=== PATIENT | male | born 1965 | race Caucasian/White ===

== ENCOUNTER 2017-06-10 17:44 | Emergency (ER) | payer BC, OTHER ==
[~2017-06-10] VITALS: Ht 177.8 cm; Wt 80.3 kg
[~2017-06-10 17:44] MED LIST: CLB/200 PO; NAPR1TAB9 PO; PRLSR20 PO
[2017-06-10 17:58] VITALS: Ht 177.8 cm; Wt 80.3 kg
[2017-06-10] MEDS ORDERED: ONDANSETRON 4MG OD TAB PO ONE (18:15)
--- NOTE | 2017-06-10 18:16 | EMERGENCY ROOM VISIT NOTE ---
History Report prepared by Tiera: Ellis Leyva Under the Supervision of: Dr. Skyler Miranda D.O. First contact with patient: 18:01 Chief Complaint: FLU LIKE SX Stated Complaint: FLU NAUSEA ACHEY FEVER History of Present Illness The patient is a 52 year old male who presents to the Emergency Room with complaints of feeling generally unwell/flu like symptoms that her first began to notice this morning, several hours prior to arrival. The patient notes that he is currently experiencing a headache, global aches, nausea, and fevers/ chills. The patient did have multiple vomiting episodes this afternoon as well. He is not taking any cold medications currently. He has a producing cough. The patient's [id number] was discharged from the hospital on of this week for influenza with additional complications. The patient lives with his daughter in law and they are in close proximity commonly. The patient did have a flu vaccination this year. 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 A total of 10 systems reviewed and were otherwise negative. Family History Hypertension Social History Smoking Status: Current Every Day Smoker Alcohol Use: occasionally Marital Status: Housing Status: lives with family Current/Historical Medications Scheduled Celecoxib (CeleBREX), 200 MG PO QAM Ondasetron Odt (Zofran Odt), 4 MG SL Q6H Scheduled PRN Hydrocodone/Acetaminophen 5MG/325MG ([place] 5MG/325MG), 1 TABLET PO Q8 PRN for Pain Allergies Coded Allergies: No Known Allergies (Unverified , 06/10/17) Physical Exam Vital Signs Date Time Temp Pulse Resp B/P (MAP) Pulse Ox O2 Delivery O2 Flow Rate FiO2 06/10/17 19:33 36.9 90 18 119/82 96 06/10/17 19:06 36.9 90 18 119/82 96 Room Air 06/10/17 17:58 36.8 102 18 126/85 97 Room Air Physical Exam GENERAL: Patient is awake, alert, and in no acute distress, and showing no signs of anxiety EYES: The conjunctivae are clear. The pupils are round and reactive. EARS, NOSE, MOUTH AND THROAT: The nose is without any evidence of any deformity. Mucous membranes are moist tongue is midline NECK: The neck is nontender and supple. RESPIRATORY: Normal respiratory effort is noted there is no evidence of wheezing rhonchi or rales CARDIOVASCULAR: Regular rate and rhythm noted there no murmurs rubs or gallops normal S1 normal S2 GASTROINTESTINAL: The abdomen is soft. Bowel sounds are present in all quadrants. Abdomen is nontender MUSCULOSKELETAL/EXTREMITIES: There is no evidence of gross deformity full range of motion is noted in the hips and shoulders SKIN: There is no obvious evidence of any rash. There are no petechiae, pallor or cyanosis noted. NEUROLOGIC: Patient is awake alert and oriented x3 Medical Decision & Procedures ER Provider Diagnostic Interpretation: Radiology results as stated below per my review and radiologist interpretation: CHEST ONE VIEW PORTABLE HISTORY: cough COMPARISON: Chest 03/17/2016. FINDINGS: The lungs are clear. Cardiac silhouette is normal in size. No pleural effusions. No pneumothorax. Severe degenerative changes within the bilateral shoulders are again noted. IMPRESSION: No acute process. Electronically signed by: Spencer Christianson M.D. 06/10/2017 6:41 PM Dictated Date/Time: 06/10/2017 6:40 PM Laboratory Results Test 06/10/17 18:18 Urine Color YELLOW Urine Appearance CLEAR (CLEAR) Urine pH 5.5 (4.5-7.5) Urine Specific [place] 1.024 (1.000-1.030) Urine Protein NEG (NEG) Urine Glucose (UA) NEG (NEG) Urine Ketones 1+ (NEG) Urine Occult Blood NEG (NEG) Urine Nitrite NEG (NEG) Urine Bilirubin NEG (NEG) Urine Urobilinogen NEG (NEG) Urine Leukocyte Esterase NEG (NEG) Influenza Type A Antigen Neg for Influ A (NEG) Influenza Type B Antigen Neg for Influ B (NEG) Laboratory results per my review. Medications Administered Medications (Trade) Dose Ordered Sig/Ivy Route Start Time Stop Time Status Last Admin Dose Admin Ondansetron HCl (Zofran Odt) 4 mg ONE ONCE PO 06/10/17 18:15 06/10/17 18:16 DC 06/10/17 18:26 4 MG ED Course 1803: The patient was evaluated in room A2. A complete history and physical examination were performed. 1814: Ordered Zofran 4 mg PO. 1915: Upon reevaluation, the patient is resting in bed. I discussed the results and treatment plan with him. He verbalized agreement of the treatment plan. The patient was discharged home. Medical Decision Differential diagnosis: Etiologies such as viral syndrome, otitis, pharyngitis, pneumonia, influenza, meningitis, urinary tract infection, sepsis, bacteremia, as well as others were entertained. Nursing notes reviewed. The patient is a 52-year-old male who presented to the emergency department for an evaluation of flulike symptoms. The patient states he was exposed to a family member who had the exact same symptoms and had a very bad runny the fluid and even required admission. The patient did not have a definite infiltrate on chest x-ray. The patient was treated with antiemetics. He complained of nausea as well as body aches. The patient did not have meningismus or focal neurologic deficit. He was encouraged to continue using Motrin and Tylenol stretcher for body aches. He was also encouraged to follow- up with his family doctor this week for reevaluation but return to the emergency department immediately if symptoms change worsen or the need arises. Impression Primary Impression: Influenza Scribe Attestation The scribe's documentation has been prepared under my direction and personally reviewed by me in its entirety. I confirm that the note above accurately reflects all work, treatment, procedures, and medical decision making performed by me. Departure Information Dispostion Home / Self-Care Prescriptions Ondasetron Odt (ZOFRAN ODT) 4 Mg Tab 4 MG SL Q6H for Nausea, #15 TAB Prov: Skyler Miranda, 06/10/17 Referrals Ludy Remy D.O. (PCP) Forms HOME CARE DOCUMENTATION FORM, IMPORTANT VISIT INFORMATION Patient Instructions My [facility] Additional Instructions Continue all medications as prescribed. Drink plenty clear liquids. Continue using Motrin and Tylenol as directed for body aches. Follow-up with your family for reevaluation.
--- NOTE | 2017-06-10 18:43 | DIAGNOSTIC IMAGING REPORT ---
CHEST ONE VIEW PORTABLE HISTORY: cough COMPARISON: Chest 03/17/2016. FINDINGS: The lungs are clear. Cardiac silhouette is normal in size. No pleural effusions. No pneumothorax. Severe degenerative changes within the bilateral shoulders are again noted. IMPRESSION: No acute process. Electronically signed by: Spencer Christianson M.D. 06/10/2017 6:41 PM Dictated Date/Time: 06/10/2017 6:40 PM
[2017-06-10] MEDS ORDERED: HYDR-5688 PO (18:53)
[2017-06-10 18:55] LABS: INFLUENZA B ANTIGEN Neg for Influ B (NEG)
[2017-06-10] MEDS ORDERED: ONDA4TAB10 SL (19:05)
[2017-06-10 19:33] VITALS: BP 119/82; PULSE 90; TEMP 36.9; O2SAT 96
== END 2017-06-10 19:33 | disposition home or self-care (01) ==
LOC: C.EDB 17:46 → C.EDA 19:33
DX: J11.1 Influenza due to unidentified influenza virus with other respiratory manifestations (principal); F17.200 Nicotine dependence, unspecified, uncomplicated; Z82.49 Family history of ischemic heart disease and other diseases of the circulatory system

== ENCOUNTER → 2017-07-31 | Outpatient (CLI) | payer BC ==
[~2017-07-31] MED LIST changes: +HYDR-5688 PO; -NAPR1TAB9 PO; +ONDA4TAB10 SL; -PRLSR20 PO
== END | disposition home or self-care (01) ==
LOC: C.LAB 13:44
PROVIDERS: ATTEND Orthopaedic Surgery Sports Medicine
DX: M17.11 Unilateral primary osteoarthritis, right knee (principal)

== ENCOUNTER 2017-08-31 05:58 | Inpatient (IN) | payer BC ==
[2017-08-16 10:45] VITALS: Ht 177.8 cm; Wt 82.3 kg
--- NOTE | 2017-08-16 11:12 | PAT Medication Instructions ---
Service Date Aug 16, 2017. 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 Instructions For Your Scheduled Surgery - Hold the following medications 2 weeks prior to surgery: Celecoxib (CeleBREX), 200 MG PO QAM Naproxen (Aleve), 40 MG PO TID PRN for RN - Hold the following medications the morning of surgery: Multivitamin (Multivitamin), 1 TAB PO QAM - Take the following medications the morning of surgery with a sip of water: Hydrocodone/Acetaminophen 5MG/325MG ([place] 5MG/325MG), 1 TABLET PO Q8 PRN for Pain (okay to take up to 4 hours prior to surgery if needed) - Take the following medications as scheduled the night before surgery: Hydrocodone/Acetaminophen 5MG/325MG ([place] 5MG/325MG), 1 TABLET PO Q8 PRN for Pain (If needed) If you have any questions please call us at [phone] or [phone] or [phone]
--- NOTE | 2017-08-16 11:55 | DIAGNOSTIC IMAGING REPORT ---
CHEST 2 VIEWS ROUTINE CLINICAL HISTORY: 52 years-old Male presenting with preoperative assessment. TECHNIQUE: PA and lateral views of the chest were obtained. COMPARISON: 06/10/2017. FINDINGS: Atherosclerosis of the aortic arch. Cardiac silhouette normal in size. Lungs and pleural spaces clear. Degenerative changes of the thoracic spine. Advanced degenerative changes of the bilateral glenohumeral joints. Upper abdomen normal. IMPRESSION: 1. No acute cardiopulmonary disease. Electronically signed by: Barron Griffin M.D. 08/16/2017 11:54 AM Dictated Date/Time: 08/16/2017 11:53 AM
[2017-08-16 12:23] LABS: BASO % 0.5 %; BASO ABS # 0.05 K/uL (0-0.2); EOS % 3.3 %; EOS ABS # 0.33 K/uL (0-0.5); HEMATOCRIT 40.3 % (42-52); HEMOGLOBIN 12.7 g/dL (14.0-18.0); IG# 0.02 K/uL (0.00-0.02); LYMPH % 17.1 %; LYMPH ABS # 1.73 K/uL (1.2-3.4); MEAN CELL VOLUME 76.2 fL (80-100); MEAN CORPUSCULAR HGB CONC 31.5 g/dl (32-36); MEAN PLATELET VOLUME 9.7 fL (7.4-10.4); MONO % 8.1 %; MONO ABS # 0.82 K/uL (0.11-0.59); NEUT % 70.8 %; NEUT ABS # 7.14 K/uL (1.4-6.5); PLATELET COUNT 418 K/uL (130-400); RED CELL DISTRIBUTION WIDTH CV 17.6 % (11.5-14.5); RED CELL DISTRIBUTION WIDTH SD 48.5 fL (36.4-46.3); WHITE BLOOD COUNT 10.09 K/uL (4.8-10.8)
[2017-08-16 12:29] LABS: PTT PATIENT 26.3 SECONDS (21.0-31.0)
[2017-08-16 13:13] LABS: ALBUMIN 3.4 gm/dl (3.4-5.0); CALCIUM 9.5 mg/dl (8.5-10.1); CREATININE 0.79 mg/dl (0.60-1.40); POTASSIUM 4.4 mmol/L (3.5-5.1)
--- NOTE | 2017-08-30 14:57 | History and Physical ---
History & Physical Date Aug 30, 2017. Chief Complaint right knee pain History of Present Illness The patient is a 52 year old male with complaints of chronic right knee pain that was treated conservative for knee osteoarthritis. The patient failed all conservative management and is now being set up for a right TKA. 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 No erythema. Painful PROM with crepitation. Tender at the medial/lateral joint spaces) Neurologic/Psych: no motor/sensory deficits, alert, oriented x 3 Diagnosis Right knee osteoarthritis Plan of Treatment Recommend a right TKA. All potential risks, benefits, complications, alternatives, and rehab have been discussed with the patient and he wishes to proceed. The patient will be scheduled for 08.31.17 with plan for ASA 81 mg BID for 30 days DVT prophylaxis.
[2017-08-31] VITALS (10 sets, daily range): BP systolic 106–141; BP diastolic 65–93; PULSE 64–92; TEMP 36.4–36.9; O2SAT 92–97
[~2017-08-31] VITALS: Ht 177.8 cm; Wt 82.3 kg
[~2017-08-31 05:58] MED LIST changes: +MULT-506 PO; +NAPR1TAB9 PO; -ONDA4TAB10 SL
[2017-08-31] MEDS ORDERED: FAMOTIDINE 20 MG TAB PO SCH (06:00)
[2017-08-31] MEDS ORDERED: LACTATED RINGER'S 1000ML 500 ML IV SCH (06:00)
[2017-08-31] MEDS ORDERED: ROPIVACAINE 5MG/ML 30 ML 150 MG, BUPIVACAINE 0.5% MPF INJ 30 ML, EpINEphrine HCL INJ 0.... INFIL SCH ×8 (06:00)
[2017-08-31] MEDS ORDERED: CeleBREX 200 MG CAP PO SCH (06:00)
[2017-08-31] MEDS ORDERED: ACETAMINOPHEN 500 MG TAB PO SCH (06:00)
[2017-08-31] MEDS ORDERED: CEFAZOLIN 2000MG IV PUSH 15 ML IV SCH (06:00)
[2017-08-31] MEDS ORDERED: GABAPENTIN 300 MG CAP PO SCH (06:00)
[2017-08-31] MEDS ORDERED: LACTATED RINGER'S 1000ML 1,000 ML IV SCH (06:00)
[2017-08-31] MEDS ORDERED: DEXAMETHASONE 4 MG TAB PO SCH (06:00)
[2017-08-31] MEDS ORDERED: METOCLOPRAMIDE HCL 10 MG TAB PO SCH (06:00)
[2017-08-31] MEDS ORDERED: ROPIVACAINE 0.5% 5 MG/ML 30 ML VIAL ONE (06:30)
[2017-08-31] MEDS: TRANEXAMIC ACID INJ 1,000 MG x 2 Bags IV SCH ×4 (06:30→07:13)
[2017-08-31] MEDS ORDERED: LVT/20 PO (06:30)
[2017-08-31] MEDS ORDERED: BUPIVACAINE 0.5 % 5 MG/1 ML PF 10ML VIAL ONE (06:30)
[2017-08-31] MEDS ORDERED: PROPOFOL IV EMULSION 10 MG/ML 20 ML VIAL IV ONE ×2 (06:56→10:20)
[2017-08-31] MEDS ORDERED: LIDOCAINE HCL 2% 2 ML VIAL (20MG/ML) ONE (06:56)
[2017-08-31] MEDS ORDERED: MIDAZOLAM HCL 1 MG/ML 2ML VIAL ONE ×2 (06:57→08:32)
[2017-08-31] MEDS ORDERED: FENTANYL CITRATE INJ 50 MCG/1 ML 2 ML VIAL ONE (06:57)
[2017-08-31] MEDS ORDERED: ORTHO JOINT ANESTHETIC ONE (07:02)
[2017-08-31] MEDS ORDERED: POVIDONE-IODINE OP SOLN 30 ML BTL ONE (07:03)
[2017-08-31] MEDS ORDERED: BACITRACIN 50000 UNIT VIAL ONE (07:03)
--- NOTE | 2017-08-31 07:37 | History & Physical Bridge Note ---
H&P Re-Evaluation Bridge Note: I have examined the patient, reviewed the History & Physical and in the interval since the performance of the History & Physical I have noted the following changes of clinical significance: No changes noted
[2017-08-31] MEDS ORDERED: FENTANYL CITRATE INJ 50 MCG/1 ML 2 ML VIAL IV PRN (07:45)
[2017-08-31] MEDS ORDERED: ATROPINE SULFATE 0.1 MG/ML 5ML SYR IV PRN (07:45)
[2017-08-31] MEDS ORDERED: HYDROmorphone INJ 0.5 MG/0.5 ML SYR IV PRN (07:45)
[2017-08-31] MEDS ORDERED: EpHEDrine SULFATE INJ 50 MG/ML AMP IV PRN (07:45)
[2017-08-31] MEDS ORDERED: FLUMAZENIL 0.1 MG/1 ML 10 ML VIAL IV PRN (07:45)
[2017-08-31] MEDS ORDERED: PHENYLEPHRINE 100MCG/ML 5ML SYR IV PRN (07:45)
[2017-08-31] MEDS ORDERED: NALOXONE HCL 0.4 MG/1 ML VIAL/CARP IV PRN (07:45)
[2017-08-31] MEDS ORDERED: MEPERIDINE HCL 25 MG/ML CARP IV PRN (07:45)
[2017-08-31] MEDS ORDERED: ONDANSETRON INJ 2 MG/ML 2 ML VIAL IV PRN ×2 (07:45→10:30)
[2017-08-31] MEDS ORDERED: LABETALOL HCL IV 5 MG/ML 20ML IV PRN (07:45)
--- NOTE | 2017-08-31 09:39 | [facility] Post Operative Brief Note ---
Immediate Operative Summary Operative Date Aug 31, 2017. Pre-Operative Diagnosis Right knee degenerative joint disease, Right knee osteoarthritis Post-Operative Diagnosis Right knee degenerative joint disease, Right knee osteoarthritis Procedure(s) Performed Right total knee arthroplasty with Marshall and Nephew Journey 2; Femur 5, Tibia 5, Patella 35mm, Poly 15mm Surgeon Dr. 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
--- NOTE | 2017-08-31 09:52 | [facility] Operative Report ---
Operative Report Operative Date Aug 31, 2017. Pre-Operative Diagnosis Right knee degenerative joint disease, Right knee osteoarthritis Post-Operative Diagnosis Right knee degenerative joint disease, Right knee osteoarthritis Procedure(s) Performed Right total knee arthroplasty with Marshall and Nephew Journey 2; Femur 5, Tibia 5, Patella 35mm, Poly 15mm Surgeon Dr[address] Praveena Navarro Electronic Operator Surgeon(s) Rakan Salazar PA-C Estimated Blood Loss 20 ml Specimens A) Right knee- bone & tissue Drains HV x2 Anesthesia Type MAC Spinal Regional (intraarticular Orthomix) Disposition no Recovery Room / PACU Description of Procedure Rakan Salazar PA-C was present for patient positioning, sterile prep and drape, management of retractors and instruments. He was present through the critical portions of the case including wound closure, application of sterile dressing and transport of the patient to recovery. All potential risks, benefits, complications, alternatives, rehab, potential for incomplete relief of symptoms, need for surgery, DVT, PE, , persistent pain, swelling, scarring, weakness, neurovascular injury, wound complications, hardware failure, nonunion, malunion and bone fracture were discussed with the patient and family. The patient and family decided to proceed with the procedure as indicated. DESCRIPTION OF PROCEDURE: The patient was taken to the Operating Suite and placed supine on the Operating Room table after the patient had been administered spinal epidural anesthetic and an adductor canal block in the preop holding area. The patient was sedated. Proper operative site was identified and the consent was reviewed. Surgical timeout was performed. The tourniquet was placed high on the operative lower extremity. The operative lower extremity was then sterilely prepped and draped in the usual fashion. Elevated and exsanguinated with an Esmarch bandage. Tourniquet inflated to 325 mmHg. Next a midline 10-blade scalpel incision was made directly over the midline of the distal femur and the medial one-third of the patella extending approximately to the level of the tibial tubercle. The incision was deepened through the subcutaneous tissue and meticulous hemostasis was achieved with electrocautery. Full-thickness skin flaps were developed taking care to avoid neurovascular bundles. Next, a median parapatellar capsular incision was made with 10-blade scalpel after the superior medial corner had been marked with a marking pen for later reapproximation. The patella was everted. Soft tissue releases were performed of the knee including along the anterior medial corner to the level of the MCL which was protected. Soft tissue was released adjacent to the MCL with the Black elevator. Fat pad was resected anteriorly and small half torre portion of tissue was resected at the superior margin of the femoral articular surface. Next, the patella thickness was measured with caliper and held in everted position with Venancio. Next, sagittal saw was used to make orthogonal cuts to the level of the patellar nose. Caliper was used to remeasure the patella and the appropriate sized patellar alignment guide was then put in place. Peg holes were drilled and alignment guide was then removed. Next, the femoral cutting block was placed on the distal aspect of the femur and pinned in place. Next the distal femoral cut was made based off the patient's anatomy and MRI patient matched cutting block. Next, a size 5 distal 4-in-1 cutting block was tamped in place then stabilized with pins. Homans provided soft tissue retraction and then anterior chamfer and posterior chamfer cuts were made with the sagittal saw. Next, the 4-in-1 cutting block was then removed followed by removal of all bone fragments. Next, attention was then directed toward the proximal tibia. Blunt Betsey was placed posterior to the tibia to protract it anteriorly and medial and lateral sharp Betsey retractors were placed. Soft tissue and portion of the menisci were then resected at this time and MRI matched proximal tibial cutting block was then pinned in place and proximal tibial cut was made with sagittal saw. Alignment guide was removed. Pins were removed and the proximal fragment of the tibia was then sharply excised and removed. Next, proximal tibial tray trial size 5 was then pinned in place and this was felt to be well matched for the patient's anatomy, pinned in place and keel punch was then utilized with mallet. Keel punch was then removed and cervical laminar reconciling clerk was then placed in the medial compartment. The lateral compartment was then cleared of osteophytes and soft tissue impingement. I then switched the lamina reconciling clerk to lateral compartment and medial compartment was debrided of any bony and soft tissue impingement. Next the laminar reconciling clerk was removed and the femoral trial, in this case size 5 was then malleted in place, pinned and then femoral notch milling guide was then placed anteriorly. This was then reamed and then punched with sharp punch and mallet. Next, the femoral trial pin was then inserted into the notch guide and size 15 mm poly was inserted and the trials were reduced. The patellar button was then placed into the previously prepared patella and Range of motion and stability testing was performed. Next after range of motion and stability test was completed the implants were adjusted for appropriate size. Trials were all removed. The posterior distal femoral periosteum, joint capsule, medial and lateral gutters were carefully injected with Orthomix. Next the joint was then cleansed with pulsatile lavage using approximately 3 liters normal saline with Bacitracin additive. Next all bony surfaces were the suctioned and drained and standard cementing technique was performed with antibiotic cement and all excess cement was then removed from around the final implants. A 15 mm posterior stabilized polyethylene bearing was implanted and checked for stability. The patellar button was then cemented in place and held in place with patellar clamp. The leg was then placed in full extension over a well-padded heel bump to fully compress and seat the final implants. Dilute Betadine solution was then used to fill the joint space. The dilute Betadine solution was left in place for approximately 3 minutes. After 3 minutes the dilute Betadine solution was completely suctioned from the joint. Pulsatile lavage was used to cleanse the joint completely. Orthomix was injected into the soft tissues with an attempt made to avoid injection around the common peroneal nerve. Next, double lumen 10 Divehi Hemovac drains were then placed exiting anterolaterally and the capsule was closed using interrupted #1 Vicryl sutures. The dermis was closed using buried interrupted 2-0 Vicryl and the skin closed with skin imelda. A sterile compressive dressing was applied from the toes to the groin and overwrapped with Jung wrap. The tourniquet was released. The patient was awakened and taken to recovery in stable condition. I attest to the content of the Intraoperative Record and any orders documented therein. Any exceptions are noted below.
[2017-08-31] MEDS ORDERED: MAGNESIUM HYDROXIDE SUSP 30 ML UDC PO PRN (10:30)
[2017-08-31] MEDS ORDERED: ALUMINUM/MAGNESIUM/SIMETH (MAALOX MAX) 30 ML UDC PO PRN (10:30)
[2017-08-31] MEDS ORDERED: VARDENAFIL PO PRN (10:30)
[2017-08-31] MEDS ORDERED: BISACODYL 10 MG SUPP PR PRN (10:30)
[2017-08-31] MEDS ORDERED: TAMSULOSIN HCL 0.4 MG CAP PO PRN (10:30)
[2017-08-31] MEDS ORDERED: SILVER SULFADIAZINE 1% CR 50 GM JAR EXT PRN (10:30)
[2017-08-31] MEDS ORDERED: ZOLPIDEM TARTRATE 5 MG TAB PO PRN (10:30)
[2017-08-31] MEDS ORDERED: SOD PHOSPHATE/SOD BIPHOSPHATE ENEMA 132 ML BTL PR PRN (10:30)
[2017-08-31] MEDS ORDERED: KETOROLAC TROMETHAMINE 30 MG/ML VIAL IV. PRN (10:30)
[2017-08-31] MEDS ORDERED: CEFAZOLIN IV 2,000 MG in DEXTROSE 5% 50ML 50 ML IV SCH (10:30)
--- NOTE | 2017-08-31 10:40 | Discharge Instructions ---
Discharge Instructions Date of Service Aug 31, 2017. Admission Reason for Admission: Right Knee Osteoarthritis Discharge Discharge Diagnosis / Problem: right knee osteoarthritis Discharge Goals Goal(s): Decrease discomfort, Improve function Activity Recommendations Activity Limitations: per Instructions/Follow-up section Weightbearing Status: Right weightbearing (as tolerated) . Instructions / Follow-Up Instructions / Follow-Up ACTIVITY RECOMMENDATIONS: SELF CARE INSTRUCTIONS AFTER TOTAL KNEE REPLACEMENT A. You may need to continue a physical therapy program after discharge from the hospital. There are several options available to you. Your doctor will assist you in selecting the best one for you. 1. An out-patient facility 2 to 3 times a week for therapy or home therapy. 2. Continue working on all exercises taught to you in the hospital. Your goals should be to increase bending of your knee to 90 degrees and beyond and to fully straighten your knee. B. You may progress at your own pace from walking with a walker or crutches to a cane; then to no assistive devices. C. Make walking a part of your daily routine. Be up as much as comfortable with rest periods throughout the day. Rest with leg elevation is very important. Use the ice wrap frequently for the first 3-4 weeks. D. There are no restrictions on activities. You may ride in a car, shop, participate in imager and all social activities. E. Wear the long elastic stockings (SANJUANITA hose) 20 hours a day for one month after surgery. They can be removed several times a day for laundering and for a bath. F. Silverlon- This is a large adhesive bandage that contains silver ions. This helps your incision heal by fighting off bacteria and protecting it from the outside environment. You are permitted to shower with this dressing. This will remain on your incision for 7 days and then should be removed. Some visible blood or drainage through the dressing window is normal. If there is significant drainage or leaking noted before the 7 days notify your doctor's office immediately. Once removed, keep incision clean and dry. If there is any drainage or redness noted, please call your surgeon. G. You have a zipline closure for the incision. This adhesive closure will remain in place until your first post operative appointment in 2 weeks. When the Silverlon dressing is removed, be sure not to remove the adhesive to the zipline that is on your skin. There should be a protective adhesive above the zipline closure and the Silverlon dressing that may come off with the Silverlon when removed. It is OK if this comes off. SPECIAL CARE INSTRUCTIONS: VERY IMPORTANT TO READ AND REVIEW A. Take Aspirin (blood thinning medications) as directed by your doctor. If on Coumadin, have a pro-time (blood test) drawn according to your doctor's instructions. This will tell the doctor how well the Coumadin is thinning your blood. B. There are a few signs you need to watch for after you are home. Call [facility] if you notice any of the followin. Increased severe knee pain. Some pain is expected especially when you exercise. 2. Increased swelling in your leg or knee; pain or swelling of the calf muscle in either lower leg. 3. Any fluid drainage from the incision. 4. Shortness of breath or chest pain. C. Please call [facility] at if you have any concerns or questions about your operation or recovery. The doctor or his nurse will return your call promptly. D. You must take antibiotics before dental work, bladder, bowel or other surgery. Your doctor will provide you with a permanent care to carry describing this precaution. * CALL IF INCREASED PAIN, REDNESS, DRAINAGE OR FEVER GREATER THAT 101 F. * WEAR SANJUANITA HOSE 20 HOURS PER DAY FOR 4 WEEKS. FOLLOW UP VISIT: If appointment is not already scheduled: Please call [facility] to make a follow-up appointment for 2 weeks after your surgery at . Current Hospital Diet Patient's current hospital diet: Regular Diet Discharge Diet Recommended Diet: Regular Diet Procedures Procedures Performed: Right total knee arthroplasty with Marshall and Nephew Journey 2; Femur 5, Tibia 5, Patella 35mm, Poly 15mm Pending Studies Studies pending at discharge: no Laboratory Results Hemoglobin A1c Test 08/16/17 11:16 Range/Units Estimated Average Glucose 126 mg/dl Hemoglobin A1c 6.0 H 4.5-5.6 % Medical Emergencies . Who to Call and When: Medical Emergencies: If at any time you feel your situation is an emergency, please call 911 immediately. . Non-Emergent Contact Non-Emergency issues call your: Surgeon Call Non-Emergent contact if: temperature is above 101, your pain is not controlled, your pain is worsening, wound has increased drainage, wound has increased redness . "Provider Documentation" section prepared by Rakan Salazar. .
--- NOTE | 2017-08-31 10:55 | Anesthesiology Progress Note ---
Anesthesia Post Op Note Date & Time Aug 31, 2017 at 10:55 Vital Signs Pain Intensity: 0 Vital Signs Past 12 Hours Date Time Temp Pulse Resp B/P (MAP) Pulse Ox O2 Delivery O2 Flow Rate FiO2 08/31/17 10:32 75 18 99 08/31/17 10:32 74 18 08/31/17 10:31 103/64 08/31/17 10:27 78 16 08/31/17 10:27 77 16 98 08/31/17 10:26 112/78 08/31/17 10:26 36.4 80 16 102/62 (73) 94 Nasal Cannula 2 08/31/17 10:22 80 15 08/31/17 10:22 81 15 97 08/31/17 10:21 105/64 08/31/17 10:17 83 19 08/31/17 10:17 83 19 102/62 93 08/31/17 06:34 36.9 88 18 141/93 96 Room Air Notes Mental Status: alert / awake / arousable, participated in evaluation Pt Amnestic to Procedure: Yes Nausea / Vomiting: adequately controlled Pain: adequately controlled Airway Patency, RR, SpO2: stable & adequate BP & HR: stable & adequate Hydration State: stable & adequate Neuraxial Anesthesia: was administered, sensory block is resolving Anesthetic Complications: no major complications apparent
--- NOTE | 2017-08-31 11:34 | DIAGNOSTIC IMAGING REPORT ---
R KNEE 1 OR 2 VIEWS ROUTINE CLINICAL HISTORY: Right knee osteoarthritis. COMPARISON: Knee radiographs February 20, 2011. FINDINGS: Alignment of the total right knee arthroplasty is anatomic. No fracture or unexpected radiopaque foreign body. Drains are in place. IMPRESSION: Expected findings following total right knee arthroplasty. Electronically signed by: Last Pacheco M.D. 08/31/2017 11:32 AM Dictated Date/Time: 08/31/2017 11:30 AM
[2017-08-31] MEDS: D5W AND 1/2NSS + 20MEQ KCL 1,000 ML IV SCH ×2 (12:13→22:52)
--- NOTE | 2017-08-31 12:19 | History and Physical ---
History & Physical Date & Time of Service: Aug 31, 2017 at 11:53 Chief Complaint: Right Knee Osteoarthritis Primary Care Physician: Ludy Remy D.O. Past Medical/Surgical History Medical Problems: (1) Erectile dysfunction Status: Chronic (2) Osteoarthritis of right knee Status: Chronic (3) Tobacco use disorder Status: Chronic Surgical Problems: (1) H/O knee surgery Status: Resolved Family History Hypertension Social History Smoking Status: Current Every Day Smoker (1 ppd, 30 pack years ) Alcohol Use: none Marital Status: Housing status: lives with family Allergies Coded Allergies: No Known Allergies (Unverified , 08/31/17) Home Medications Scheduled Celecoxib (CeleBREX), 200 MG PO QAM Multivitamin (Multivitamin), 1 TAB PO QAM Scheduled PRN Hydrocodone/Acetaminophen 5MG/325MG (Ethel 5MG/325MG), 1 TABLET PO Q8 PRN for Pain Naproxen (Aleve), 40 MG PO TID PRN for RN Vardenafil (Levitra), 1 TAB PO DAILY PRN for ED Physical Exam Vital Signs Date Time Temp Pulse Resp B/P (MAP) Pulse Ox O2 Delivery O2 Flow Rate FiO2 08/31/17 11:40 64 18 115/79 (91) 97 08/31/17 11:10 36.5 72 18 112/71 (85) 97 Nasal Cannula 2.0 08/31/17 11:10 97 Nasal Cannula 2.0 08/31/17 11:10 Nasal Cannula 2.0 08/31/17 10:32 75 18 99 08/31/17 10:32 74 18 08/31/17 10:31 103/64 08/31/17 10:27 78 16 08/31/17 10:27 77 16 98 08/31/17 10:26 112/78 08/31/17 10:26 36.4 80 16 102/62 (73) 94 Nasal Cannula 2 08/31/17 10:22 80 15 08/31/17 10:22 81 15 97 08/31/17 10:21 105/64 08/31/17 10:17 83 19 08/31/17 10:17 83 19 102/62 93 08/31/17 06:34 36.9 88 18 141/93 96 Room Air Impression Advanced Directives Existing Living Will: No Existing Power of Bundle Packer: No Resuscitation Status VTE Prophylaxis Will order VTE Prophylaxis: Yes
--- NOTE | 2017-08-31 12:22 | Medical Consult ---
Consultation Date of Consultation: Aug 31, 2017. Attending Physician: Israel Navarro D.O. Reason for Consultation: post-op medical mgmt History of Present Illness This is a 52yo M with a PMH of osteoarthritis of R knee and tobacco use disorder who is POD #0 s/p R TKA by Dr. Navarro. Patient is doing well post- operatively. States that knee pain is a 0/10. Denies any pain, fever, chills, lightheadedness, headache, visual changes, sore throat, CP, SOB, abdominal pain , nausea, vomiting, dysuria or LE swelling. No urinating or bowel movement post- operatively yet. PCP is Dr. Remy. Denies any personal history of HTN, DM II or heart disease. Home medications include PRN celebrex and norco for R knee pain and PRN Levitra for ED. Smokes 1 ppd. Past Medical/Surgical History Medical Problems: (1) Erectile dysfunction Status: Chronic (2) Osteoarthritis of right knee Status: Chronic (3) Pre-diabetes Status: Chronic (4) Tobacco use disorder Status: Chronic Surgical Problems: (1) H/O knee surgery Status: Resolved Family History Hypertension Social History Smoking Status: Current Every Day Smoker (1 ppd, 30 pack years ) Alcohol Use: none Marital Status: Housing Status: lives with family Allergies Coded Allergies: No Known Allergies (Unverified , 08/31/17) Home Medications Reported Home Medications Medications Dose Route/Sig Max Daily Dose Days Date Category Levitra (Vardenafil HCl) 20 Mg Tab 1 Tab PO DAILY PRN 6 08/31/17 Reported Multivitamin (Multivitamins) Tab 1 Tab PO QAM 08/16/17 Reported Aleve (Naproxen) 220 Mg Tab 40 Mg PO TID PRN 08/16/17 Reported Sherwood 5MG/325MG (Acetaminophen/Hydrocodone Bitart) Tab 1 Tablet PO Q8 PRN 06/10/17 Reported CeleBREX (Celecoxib) 200 Mg Cap 200 Mg PO QAM 03/15/16 Reported Current Inpatient Medications Current Inpatient Medications Medications (Trade) Dose Ordered Sig/Ivy Route Start Time Stop Time Status Last Admin Dose Admin Cefazolin Sodium 15 ml @ 3.75 mls/ min PREOP IV 08/31/17 06:00 08/31/17 18:00 08/31/17 07:55 3.75 MLS/MIN Acetaminophen (Tylenol Tab) 1,000 mg PREOP PO 08/31/17 06:00 08/31/17 18:00 08/31/17 06:43 1,000 MG Celecoxib (CeleBREX CAP) 200 mg PREOP PO 08/31/17 06:00 08/31/17 18:00 08/31/17 06:45 200 MG Dexamethasone (Decadron Tab) 8 mg PREOP PO 08/31/17 06:00 08/31/17 18:00 08/31/17 06:44 8 MG Famotidine (Pepcid Tab) 20 mg PREOP PO 08/31/17 06:00 08/31/17 18:00 08/31/17 06:45 20 MG Gabapentin (Neurontin Cap) 300 mg PREOP PO 08/31/17 06:00 08/31/17 18:00 08/31/17 06:44 300 MG Metoclopramide HCl (Reglan Tab) 10 mg PREOP PO 08/31/17 06:00 08/31/17 18:00 08/31/17 06:44 10 MG Lactated Ringer's 1,000 ml @ 15 mls/hr Q24H IV 08/31/17 06:00 09/01/17 05:59 Hydromorphone HCl (Dilaudid Inj) 0.5 mg Q5M PRN IV 08/31/17 07:45 08/31/17 12:45 Fentanyl Citrate (Fentanyl Inj) 25 mcg Q5M PRN IV 08/31/17 07:45 08/31/17 12:45 Naloxone HCl (Narcan Inj) 0.2 mg Q2M PRN IV 08/31/17 07:45 08/31/17 12:45 Meperidine HCl (Demerol Inj) 12.5 mg Q5M PRN IV 08/31/17 07:45 08/31/17 12:45 Ondansetron HCl (Zofran Inj) 4 mg ONE PRN IV 08/31/17 07:45 08/31/17 12:45 Flumazenil (Romazicon Inj) 0.2 mg Q2M PRN IV 08/31/17 07:45 08/31/17 12:45 Labetalol HCl (Normodyne IV) 5 mg Q5M PRN IV 08/31/17 07:45 08/31/17 12:45 Ephedrine Sulfate (EpHEDrine SULFATE INJ) 5 mg Q5M PRN IV 08/31/17 07:45 08/31/17 12:45 Atropine Sulfate (Atropine Sulfate 0.1mg/ml Inj) 0.5 mg Q1M PRN IV 08/31/17 07:45 08/31/17 12:45 Phenylephrine HCl (Anderson-Synephrine 500MCG/5ML Syr) 100 mcg Q5M PRN IV 08/31/17 07:45 08/31/17 12:45 Potassium Chloride/Dextrose/ Sod Cl 1,000 ml @ 100 mls/hr Q10H IV 08/31/17 12:30 09/01/17 12:29 Cefazolin Sodium 2000 mg/Dextrose 65 ml @ 100 mls/hr Q8H IV 08/31/17 10:30 08/31/17 19:08 UNV Celecoxib (CeleBREX CAP) 200 mg BID PO 08/31/17 21:00 09/30/17 20:59 UNV Oxycodone HCl (Roxicodone Immediate Rel Tab) 1 TABLET FOR PAIN RATING... Q4H PRN PO 08/31/17 10:30 09/14/17 10:29 Morphine Sulfate (MoRPHine SULFATE INJ) 2 mg Q1HWA PRN IV 08/31/17 10:30 09/14/17 10:29 Acetaminophen (Tylenol Tab) 1,000 mg Q8H PO 08/31/17 14:00 09/30/17 13:59 Magnesium Hydroxide (Milk Of Magnesia Susp) 30 ml Q6H PRN PO 08/31/17 10:30 09/30/17 10:29 UNV Bisacodyl (Dulcolax Supp) 10 mg DAILY PRN [place] 08/31/17 10:30 09/30/17 10:29 Sodium Biphosphate/ Sodium Phosphate (Fleet Enema) 132 ml DAILY PRN [place] 08/31/17 10:30 09/30/17 10:29 Senna (Senokot Tab) 17.2 mg HS PO 08/31/17 21:00 09/30/17 20:59 Docusate Sodium (coLACE CAP) 100 mg BID PO 08/31/17 21:00 09/30/17 20:59 UNV Diphenhydramine HCl (Benadryl Cap) 25 mg Q8H PRN PO 08/31/17 10:30 09/30/17 10:29 UNV Al Hydrox/Mg Hydrox/Simethicone (Maalox Max Susp) 15 ml Q4H PRN PO 08/31/17 10:30 09/30/17 10:29 Zolpidem Tartrate (Ambien Tab) 5 mg HSZ PRN PO 08/31/17 10:30 09/30/17 10:29 UNV Ondansetron HCl (Zofran Inj) 4 mg Q6H PRN IV 08/31/17 10:30 09/30/17 10:29 Silver Sulfadiazine (Silvadene 1% Crm 50GM Jar) 1 appln BID PRN EXT 08/31/17 10:30 09/30/17 10:29 Tamsulosin HCl (Flomax Cap) 0.4 mg QAM PRN PO 08/31/17 10:30 09/30/17 10:29 UNV Tranexamic Acid 1000 mg/Sodium Chloride 110 ml @ 660 mls/hr Q6H IV 08/31/17 10:30 08/31/17 10:39 UNV Ketorolac Tromethamine (Toradol Inj) 30 mg Q6H PRN IV. 08/31/17 10:30 09/01/17 10:29 UNV Aspirin (Ecotrin Tab) 81 mg BID PO 08/31/17 21:00 09/30/17 20:59 UNV Multivitamins (Multivitamin Tab) 1 tab QAM PO 09/01/17 09:00 10/01/17 08:59 Non-Formulary Medication (Vardenafil (Levitra)) 1 tab DAILY PRN PO 08/31/17 10:30 09/30/17 10:29 UNV Review of Systems Ten systems reviewed and negative except as noted in the HPI. Physical Exam Date Time Temp Pulse Resp B/P (MAP) Pulse Ox O2 Delivery O2 Flow Rate FiO2 08/31/17 11:40 64 18 115/79 (91) 97 08/31/17 11:10 36.5 72 18 112/71 (85) 97 Nasal Cannula 2.0 08/31/17 11:10 97 Nasal Cannula 2.0 08/31/17 11:10 Nasal Cannula 2.0 08/31/17 10:32 75 18 99 08/31/17 10:32 74 18 08/31/17 10:31 103/64 08/31/17 10:27 78 16 08/31/17 10:27 77 16 98 08/31/17 10:26 112/78 08/31/17 10:26 36.4 80 16 102/62 (73) 94 Nasal Cannula 2 08/31/17 10:22 80 15 08/31/17 10:22 81 15 97 08/31/17 10:21 105/64 08/31/17 10:17 83 19 08/31/17 10:17 83 19 102/62 93 08/31/17 06:34 36.9 88 18 141/93 96 Room Air General Appearance: WD/WN, no apparent distress Head: normocephalic, atraumatic Eyes: normal inspection, PERRL, sclerae normal ENT: normal ENT inspection, hearing grossly normal, pharynx normal, + pertinent finding (poor dentition ) Neck: supple, thyroid normal, trachea midline Respiratory/Chest: chest non-tender, lungs clear, normal breath sounds, no respiratory distress, no accessory muscle use Cardiovascular: regular rate, rhythm, no murmur, normal peripheral pulses Abdomen/GI: non tender, soft, no organomegaly Back: normal inspection Extremities/Musculoskelatal: normal inspection, no calf tenderness, no pedal edema, + pertinent finding (R knee with dressing in place. Clean/dry/intact. Drain visualized. ) Neurologic/Psych: no motor/sensory deficits, alert, normal mood/affect, oriented x 3 Skin: normal color, warm/dry, no rash Laboratory Results Pertinent pre-operative labs and imaging: Item Value Date Time White Blood Count 10.09 K/uL 08/16/17 1116 Hemoglobin 12.7 g/dL L 08/16/17 1116 Sodium Level 135 mmol/L L 08/16/17 1116 Potassium Level 4.4 mmol/L 08/16/17 1116 Creatinine 0.79 mg/dl 08/16/17 1116 Hemoglobin A1c 6.0 % H 08/16/17 1116 CXR: IMPRESSION: 1. No acute cardiopulmonary disease. EKG: Normal sinus rhythm CXR normal Normal EKG Assessment & Plan This is a 52yo M with a PMH of osteoarthritis of R knee and tobacco use disorder who is POD #0 s/p R TKA by Dr. Navarro. R knee OA s/p R TKA: -POD#[address] Navarro -Doing well post-operatively -Hold home celebrex, Sherwood for now -Per ortho for pain control, wound care, anticoagulation and activities -Monitor H&H, continue incentive spirometry, PT/OT when appropriate Tobacco use disorder: -Smokes 1 ppd -No interest in smoking cessation at this time -Nicotine patch ordered Pre-diabetes: -Hgb a1c of 6 on pre-operative lab work -Counseled on importance of healthy diet, exercise -Follow up with PCP PCP: Jonel Dispo: Per ortho Patient seen in collaboration with Dr. Hendrickson. Please see addendum. Thank you for this consultation. We will follow the patient with you during their hospital stay. You can reach a member of the [facility] Hospitalist Team 18/12 via pager @ . ADDENDUM: This is a 52 year old male with a PMH of tobacco use disorder (1.5ppd) - presents for a R knee surgery. Pain is controlled with pain medications. No other issues to note today. Plan: Continue aspirin 81mg BID for DVT ppx continue pain medications monitor labs PT/OT discharge planning as per ortho monitor BSGs due to pre-diabetes and perioperative steroid use
[2017-08-31] MEDS: NICOTINE 21 MG/24 HR TDSY TD SCH (13:23)
[2017-08-31] MEDS: OXYCODONE HCL IR 5 MG TAB (IMMEDIATE RELEASE) PO PRN ×2 (13:25→20:15)
[2017-08-31] MEDS: ACETAMINOPHEN 500 MG TAB PO SCH ×2 (13:27→22:02)
[2017-08-31] MEDS: CEFAZOLIN IV 2,000 MG in SYRINGE 0 ML IV SCH (15:43)
[2017-08-31] MEDS ORDERED: TRANEXAMIC ACID INJ 1,000 MG in SODIUM CHLORIDE 0.9% 100ML 100 ML IV SCH (17:00)
[2017-08-31] MEDS: MoRPHine SULFATE 2 MG/ML CARP IV PRN ×2 (17:35→22:04)
[2017-08-31] MEDS: ASPIRIN 81 MG ECTAB PO SCH (21:06)
[2017-08-31] MEDS: DOCUSATE SODIUM 100 MG CAP PO SCH (21:06)
[2017-08-31] MEDS: SENNA 8.6 MG TAB PO SCH (21:07)
[2017-09-01] VITALS (8 sets, daily range): BP systolic 112–163; BP diastolic 68–85; PULSE 59–80; TEMP 36.4–36.7; O2SAT 96–97
[2017-09-01] MEDS: OXYCODONE HCL IR 5 MG TAB (IMMEDIATE RELEASE) PO PRN ×6 (00:11→20:44)
[2017-09-01] MEDS: CEFAZOLIN IV 2,000 MG in SYRINGE 0 ML IV SCH (00:11)
[2017-09-01] MEDS: MoRPHine SULFATE 2 MG/ML CARP IV PRN ×5 (02:02→18:55)
[2017-09-01] MEDS: ACETAMINOPHEN 500 MG TAB PO SCH ×3 (05:45→21:33)
[2017-09-01 06:27] LABS: HEMATOCRIT 30.8 % (42-52); HEMOGLOBIN 9.9 g/dL (14.0-18.0); MEAN CELL VOLUME 75.5 fL (80-100); MEAN CORPUSCULAR HEMOGLOBIN 24.3 pg (25-34); MEAN CORPUSCULAR HGB CONC 32.1 g/dl (32-36); PLATELET COUNT 287 K/uL (130-400); RED CELL DISTRIBUTION WIDTH CV 18.3 % (11.5-14.5); RED CELL DISTRIBUTION WIDTH SD 50.6 fL (36.4-46.3); WHITE BLOOD COUNT 14.97 K/uL (4.8-10.8)
[2017-09-01 07:05] LABS: CALCIUM 8.8 mg/dl (8.5-10.1); CREATININE 0.7 mg/dl (0.60-1.40); POTASSIUM 4.3 mmol/L (3.5-5.1)
--- NOTE | 2017-09-01 07:22 | Orthopedic Progress Note ---
Orthopedic Progress Note Date of Service Sep 01, 2017. Subjective Post OP Day: 1 Reports: feeling well, pain controlled w PO medications, Denies: complaints, chest pain, SOB, nausea / vomiting, light headedness, calf pain Objective calves soft nontender, N/V intact, capillary refill less than 2 sec., dressing C /D/I, A&O x3, toes mobile, hemovac drainage (275cc/150cc) Date Time Temp Pulse Resp B/P (MAP) Pulse Ox O2 Delivery O2 Flow Rate FiO2 09/01/17 07:06 36.4 59 16 118/72 (87) 97 Room Air 09/01/17 06:44 113/71 (85) 09/01/17 03:50 36.7 71 17 163/68 (99) 97 Room Air 09/01/17 00:20 Room Air 08/31/17 23:43 36.7 70 16 118/70 (86) 92 Room Air 08/31/17 19:41 36.4 92 18 109/71 (84) 95 Room Air 08/31/17 15:40 93 Room Air 08/31/17 15:35 36.9 84 18 125/76 (92) 93 Room Air 08/31/17 14:10 68 16 106/65 (79) 97 Room Air 08/31/17 13:40 80 16 121/77 (92) 96 08/31/17 12:10 75 16 132/84 (100) 96 08/31/17 11:40 64 18 115/79 (91) 97 08/31/17 11:10 36.5 72 18 112/71 (85) 97 Nasal Cannula 2.0 08/31/17 11:10 97 Nasal Cannula 2.0 08/31/17 11:10 Nasal Cannula 2.0 08/31/17 10:32 75 18 99 08/31/17 10:32 74 18 08/31/17 10:31 103/64 08/31/17 10:27 78 16 08/31/17 10:27 77 16 98 08/31/17 10:26 112/78 08/31/17 10:26 36.4 80 16 102/62 (73) 94 Nasal Cannula 2 08/31/17 10:22 80 15 08/31/17 10:22 81 15 97 08/31/17 10:21 105/64 08/31/17 10:17 83 19 08/31/17 10:17 83 19 102/62 93 Laboratory Results 24 Hours: Test 09/01/17 05:34 Hematocrit 30.8 % Hemoglobin 9.9 g/dL Assessment & Plan Assessment: POD#1 S/P Right TKA Plan: Medical Management PT/OT DVT prophylaxis - ASA Discharge - likely tomorrow Continue Drain till tomorrow AM
[2017-09-01] MEDS: MULTIVITAMIN TAB PO SCH (08:18)
[2017-09-01] MEDS: DOCUSATE SODIUM 100 MG CAP PO SCH ×2 (08:18→20:44)
[2017-09-01] MEDS: ASPIRIN 81 MG ECTAB PO SCH ×2 (08:18→20:44)
[2017-09-01] MEDS: NICOTINE 21 MG/24 HR TDSY TD SCH (08:20)
[2017-09-01] MEDS: D5W AND 1/2NSS + 20MEQ KCL 1,000 ML IV SCH (08:20)
[2017-09-01] MEDS ORDERED: MULTIVITAMIN TAB PO SCH (09:00)
--- NOTE | 2017-09-01 16:49 | Progress Note ---
Medicine Progress Note Date & Time of Visit: Sep 01, 2017 at 16:45. Subjective Seen resting in bed comfortable Having pain in the right knee surgical site,, but well controlled Denies chest pain shortness of breath headache nausea dizziness Ambulated today with no above symptoms No other symptoms Objective Last 8 Hrs Date Time Temp Pulse Resp B/P (MAP) Pulse Ox O2 Delivery O2 Flow Rate FiO2 09/01/17 15:40 36.7 80 16 148/85 (106) 96 Room Air 09/01/17 14:03 78 16 112/78 (89) 09/01/17 11:00 66 97 Physical Exam: General-oriented 3 not in distress speaking sentences no accessory muscle use Head- atraumatic Eyes- anicteric Neck- supple, no JVD Lungs- clear breath sounds bilaterally Heart- regular rhythm; no murmur, normal rate Abdomen- normal bowel sounds, soft, nontender nondistended Extremities- no pretibial edema, no calf tenderness Positive heavy dressing on the right knee and lower leg with wound VAC in place Neuro- alert, oriented x 3; no gross focal motor or sensory deficits Skin- warm & dry Laboratory Results: Last 24 Hours Test 09/01/17 05:34 White Blood Count 14.97 K/uL Red Blood Count 4.08 M/uL Hemoglobin 9.9 g/dL Hematocrit 30.8 % Mean Corpuscular Volume 75.5 fL Mean Corpuscular Hemoglobin 24.3 pg Mean Corpuscular Hemoglobin Concent 32.1 g/dl RDW Standard Deviation 50.6 fL RDW Coefficient of Variation 18.3 % Platelet Count 287 K/uL Mean Platelet Volume 10.0 fL Sodium Level 136 mmol/L Potassium Level 4.3 mmol/L Chloride Level 108 mmol/L Carbon Dioxide Level 23 mmol/L Anion Gap 5.0 mmol/L Blood Urea Nitrogen 17 mg/dl Creatinine 0.70 mg/dl Est Creatinine Clear Calc Drug Dose 126.0 ml/min Estimated GFR () 124.9 Estimated GFR (Non- 107.7 BUN/Creatinine Ratio 25.1 Random Glucose 137 mg/dl Calcium Level 8.8 mg/dl Iron Level 22 mcg/dl Assessment & Plan This is a 52yo M with a PMH of osteoarthritis of R knee and tobacco use disorder who is POD #0 s/p R TKA by Dr. Navarro. R knee OA s/p R TKA: -POD#[address] Navarro Hemoglobin decreased to 9, asymptomatic Otherwise stable overall Pain management and DVT prophylaxis per Ortho service Anemia possible acute blood loss and iron deficiency Patient has microcytic anemia Iron level 22 Iron supplement started Monitor hemoglobin Maintain hemoglobin more than 8 and transfuse as needed Recommend further workup as an outpatient including colonoscopy Tobacco use disorder: -Smokes 1 ppd -Nicotine patch ordered Pre-diabetes: -Hgb a1c of 6 on pre-operative lab work -Counseled on importance of healthy diet, exercise -Follow up with PCP Thank you for this consultation. We will follow the patient with you during their hospital stay. You can reach a member of the [facility] Hospitalist Team 18/12 via pager @ . Current Inpatient Medications: Current Inpatient Medications Medications (Trade) Dose Ordered Sig/Ivy Route Start Time Stop Time Status Last Admin Dose Admin Celecoxib (CeleBREX CAP) 200 mg BID PO 09/01/17 21:00 10/01/17 20:59 Oxycodone HCl (Roxicodone Immediate Rel Tab) 1 TABLET FOR PAIN RATING... Q4H PRN PO 08/31/17 10:30 09/14/17 10:29 09/01/17 16:40 10 MG Morphine Sulfate (MoRPHine SULFATE INJ) 2 mg Q1HWA PRN IV 08/31/17 10:30 09/14/17 10:29 09/01/17 14:27 2 MG Acetaminophen (Tylenol Tab) 1,000 mg Q8H PO 08/31/17 14:00 09/30/17 13:59 09/01/17 13:45 1,000 MG Magnesium Hydroxide (Milk Of Magnesia Susp) 30 ml Q6H PRN PO 08/31/17 10:30 09/30/17 10:29 Bisacodyl (Dulcolax Supp) 10 mg DAILY PRN [place] 08/31/17 10:30 09/30/17 10:29 Sodium Biphosphate/ Sodium Phosphate (Fleet Enema) 132 ml DAILY PRN [place] 08/31/17 10:30 09/30/17 10:29 Senna (Senokot Tab) 17.2 mg HS PO 08/31/17 21:00 09/30/17 20:59 08/31/17 21:07 17.2 MG Docusate Sodium (coLACE CAP) 100 mg BID PO 08/31/17 21:00 09/30/17 20:59 09/01/17 08:18 100 MG Diphenhydramine HCl (Benadryl Cap) 25 mg Q8H PRN PO 08/31/17 10:30 09/30/17 10:29 Al Hydrox/Mg Hydrox/Simethicone (Maalox Max Susp) 15 ml Q4H PRN PO 08/31/17 10:30 09/30/17 10:29 Zolpidem Tartrate (Ambien Tab) 5 mg HSZ PRN PO 08/31/17 10:30 09/30/17 10:29 Ondansetron HCl (Zofran Inj) 4 mg Q6H PRN IV 08/31/17 10:30 09/30/17 10:29 Silver Sulfadiazine (Silvadene 1% Crm 50GM Jar) 1 appln BID PRN EXT 08/31/17 10:30 09/30/17 10:29 Tamsulosin HCl (Flomax Cap) 0.4 mg QAM PRN PO 08/31/17 10:30 09/30/17 10:29 Aspirin (Ecotrin Tab) 81 mg BID PO 08/31/17 21:00 09/30/17 20:59 09/01/17 08:18 81 MG Multivitamins (Multivitamin Tab) 1 tab QAM PO 09/01/17 09:00 10/01/17 08:59 09/01/17 08:18 1 TAB Nicotine (Nicoderm Cq 21MG Patch) 1 patch QAM TD 08/31/17 12:30 09/30/17 12:29 08/31/17 13:23 1 PATCH Miscellaneous (Remove Nicoderm Patch) 1 ea HS N/A 08/31/17 21:00 09/30/17 20:59 08/31/17 21:09 1 EA Ferrous Sulfate (Feosol Tab) 325 mg BIDM PO 09/01/17 17:45 10/01/17 17:44
[2017-09-01] MEDS: FERROUS SULFATE 325 MG TAB PO SCH (17:47)
[2017-09-01] MEDS: SENNA 8.6 MG TAB PO SCH (20:44)
[2017-09-01] MEDS: CeleBREX 200 MG CAP PO SCH (20:44)
[2017-09-02] MEDS: OXYCODONE HCL IR 5 MG TAB (IMMEDIATE RELEASE) PO PRN ×2 (01:00→06:17)
[2017-09-02] MEDS: ACETAMINOPHEN 500 MG TAB PO SCH (06:17)
[2017-09-02 06:24] VITALS: BP 147/83; PULSE 78; TEMP 36.5; O2SAT 97
[2017-09-02] MEDS: ASPIRIN 81 MG ECTAB PO SCH (07:29)
[2017-09-02] MEDS: MULTIVITAMIN TAB PO SCH (07:29)
[2017-09-02] MEDS: NICOTINE 21 MG/24 HR TDSY TD SCH (07:29)
[2017-09-02] MEDS: DOCUSATE SODIUM 100 MG CAP PO SCH (07:29)
[2017-09-02] MEDS: CeleBREX 200 MG CAP PO SCH (07:30)
[2017-09-02] MEDS: FERROUS SULFATE 325 MG TAB PO SCH (07:30)
--- NOTE | 2017-09-02 07:48 | Orthopedic Progress Note ---
Orthopedic Progress Note Date of Service Sep 02, 2017. Subjective Post OP Day: 2 Reports: feeling well, pain controlled w PO medications, Denies: complaints, chest pain, SOB, nausea / vomiting, light headedness, calf pain Objective calves soft nontender, N/V intact, capillary refill less than 2 sec., dressing C /D/I, A&O x3, toes mobile Date Time Temp Pulse Resp B/P (MAP) Pulse Ox O2 Delivery O2 Flow Rate FiO2 09/02/17 06:24 36.5 78 18 147/83 (104) 97 Room Air 09/01/17 23:05 36.7 69 16 127/81 (96) 96 Room Air 09/01/17 19:45 Room Air 09/01/17 15:55 Room Air 09/01/17 15:40 36.7 80 16 148/85 (106) 96 Room Air 09/01/17 14:03 78 16 112/78 (89) 09/01/17 11:00 66 97 Assessment & Plan Assessment: POD#2 S/P Right TKA Plan: Medical Management PT/OT DVT prophylaxis - ASA Discharge - Today with Home Health
[2017-09-02] MEDS ORDERED: ASPEC81 PO (07:51)
[2017-09-02] MEDS ORDERED: CLB200 PO (07:51)
[2017-09-02] MEDS ORDERED: OXYC-57 PO (07:51)
[2017-09-02 09:20] VITALS: BP 138/84; PULSE 75; O2SAT 97
[2017-09-02 09:31] VITALS: BP 147/83; PULSE 78; TEMP 36.5; O2SAT 97
--- NOTE | 2017-09-04 09:09 | Discharge Summary ---
Orthopedic Discharge Summary Admission Date/Reason Aug 31, 2017 at 07:37 Right Knee Osteoarthritis. Discharge Date/Disposition Sep 02, 2017 Home with services Diagnosis Principal Diagnosis: right knee osteoarthritis Procedure(s) Performed Right total knee arthroplasty with Marshall and Nephew Dylan 2; Femur 5, Tibia 5, Patella 35mm, Poly 15mm Consultations Medical consultation Medication Reconciliation New Medications: Oxycodone/Acetaminophen 5MG/325MG (Percocet 5MG/325MG) Tab 1-2 TABLETS PO Q4-6H PRN for Pain, #60 TAB Aspirin (Aspirin EC Low Dose) 81 Mg Ectab 81 MG PO BID for 30 Days Take Aspirin 81mg twice a day for 30 days. Then continue normal routine if taking before surgery. Celecoxib (Celebrex) 200 Mg Cap 200 MG PO BID for 30 Days, #60 CAP Continued Medications: Multivitamin (Multivitamin) Tab 1 TAB PO QAM, TAB Vardenafil (Levitra) 20 Mg Tab 1 TAB PO DAILY PRN for ED for 6 Days, #6 TAB 11 Refills Discontinued Medications: Celecoxib (CeleBREX) 200 Mg Cap 200 MG PO QAM, CAP Hydrocodone/Acetaminophen 5MG/325MG ([place] 5MG/325MG) Tab 1 TABLET PO Q8 PRN for Pain, TAB Naproxen (Aleve) 220 Mg Tab 40 MG PO TID PRN for RN, TAB Admission Physical Exam As per Admitting History & Physical. Hospital Course The patient was admitted on 4.6.18 and underwent the above noted procedure. He progressed well with PT and pain control on POD #1. His POD #1 labs were stable. The hemovac in the right knee was continued into POD #2 because of the drainage on the day of surgery and POD #1. He continued to do well on POD #2 and was discharge home with home health later that day. Discharge Instructions Please refer to the electronic Patient Visit Report (Discharge Instructions) for additional information. Admission Reason for Admission: Right Knee Osteoarthritis Discharge Discharge Diagnosis / Problem: right knee osteoarthritis Discharge Goals Goal(s): Decrease discomfort, Improve function Activity Recommendations Activity Limitations: per Instructions/Follow-up section Weightbearing Status: Right weightbearing (as tolerated) . Instructions / Follow-Up Instructions / Follow-Up ACTIVITY RECOMMENDATIONS: SELF CARE INSTRUCTIONS AFTER TOTAL KNEE REPLACEMENT A. You may need to continue a physical therapy program after discharge from the hospital. There are several options available to you. Your doctor will assist you in selecting the best one for you. 1. An out-patient facility 2 to 3 times a week for therapy or home therapy. 2. Continue working on all exercises taught to you in the hospital. Your goals should be to increase bending of your knee to 90 degrees and beyond and to fully straighten your knee. B. You may progress at your own pace from walking with a walker or crutches to a cane; then to no assistive devices. C. Make walking a part of your daily routine. Be up as much as comfortable with rest periods throughout the day. Rest with leg elevation is very important. Use the ice wrap frequently for the first 3-4 weeks. D. There are no restrictions on activities. You may ride in a car, shop, participate in commercial energy rater and all social activities. E. Wear the long elastic stockings (SANJUANITA hose) 20 hours a day for one month after surgery. They can be removed several times a day for laundering and for a bath. F. Silverlon- This is a large adhesive bandage that contains silver ions. This helps your incision heal by fighting off bacteria and protecting it from the outside environment. You are permitted to shower with this dressing. This will remain on your incision for 7 days and then should be removed. Some visible blood or drainage through the dressing window is normal. If there is significant drainage or leaking noted before the 7 days notify your doctor's office immediately. Once removed, keep incision clean and dry. If there is any drainage or redness noted, please call your surgeon. G. You have a zipline closure for the incision. This adhesive closure will remain in place until your first post operative appointment in 2 weeks. When the Silverlon dressing is removed, be sure not to remove the adhesive to the zipline that is on your skin. There should be a protective adhesive above the zipline closure and the Silverlon dressing that may come off with the Silverlon when removed. It is OK if this comes off. SPECIAL CARE INSTRUCTIONS: VERY IMPORTANT TO READ AND REVIEW A. Take Aspirin (blood thinning medications) as directed by your doctor. If on Coumadin, have a pro-time (blood test) drawn according to your doctor's instructions. This will tell the doctor how well the Coumadin is thinning your blood. B. There are a few signs you need to watch for after you are home. Call [facility] if you notice any of the followin. Increased severe knee pain. Some pain is expected especially when you exercise. 2. Increased swelling in your leg or knee; pain or swelling of the calf muscle in either lower leg. 3. Any fluid drainage from the incision. 4. Shortness of breath or chest pain. C. Please call [facility] at if you have any concerns or questions about your operation or recovery. The doctor or his nurse will return your call promptly. D. You must take antibiotics before dental work, bladder, bowel or other surgery. Your doctor will provide you with a permanent care to carry describing this precaution. * CALL IF INCREASED PAIN, REDNESS, DRAINAGE OR FEVER GREATER THAT 101 F. * WEAR SANJUANITA HOSE 20 HOURS PER DAY FOR 4 WEEKS. FOLLOW UP VISIT: If appointment is not already scheduled: Please call [facility] to make a follow-up appointment for 2 weeks after your surgery at . Current Hospital Diet Patient's current hospital diet: Regular Diet Discharge Diet Recommended Diet: Regular Diet Procedures Procedures Performed: Right total knee arthroplasty with Marshall and Nephew Journey 2; Femur 5, Tibia 5, Patella 35mm, Poly 15mm Pending Studies Studies pending at discharge: no Laboratory Results Hemoglobin A1c Test 08/16/17 11:16 Range/Units Estimated Average Glucose 126 mg/dl Hemoglobin A1c 6.0 H 4.5-5.6 % Medical Emergencies . Who to Call and When: Medical Emergencies: If at any time you feel your situation is an emergency, please call 911 immediately. . Non-Emergent Contact Non-Emergency issues call your: Surgeon Call Non-Emergent contact if: temperature is above 101, your pain is not controlled, your pain is worsening, wound has increased drainage, wound has increased redness .
== END 2017-09-02 10:19 | disposition home health service (06) | DRG 470 ==
LOC: C.ACU 05:58 → C.3E 07:37 → ENRESERV 10:43
PROVIDERS: ADMIT Orthopaedic Surgery Sports Medicine; ATTEND Orthopaedic Surgery Sports Medicine
PROC: 0SRC0J9 Replacement of Right Knee Joint with Synthetic Substitute, Cemented, Open Approach (ICD-10-PCS; principal; 2017-08-31 07:30)
DX: M17.11 Unilateral primary osteoarthritis, right knee (principal); K21.9 Gastro-esophageal reflux disease without esophagitis; F17.200 Nicotine dependence, unspecified, uncomplicated; D62 Acute posthemorrhagic anemia; R73.03 Prediabetes

== ENCOUNTER 2021-04-04 16:57 | Inpatient (IN) ==
[2021-04-04 17:38] LABS: Basophils # (auto) 0.01 K/uL (0-0.2); Basophils % (auto) 0.1 %; Eosinophils # (auto) 0.06 K/uL (0-0.5); Eosinophils % (auto) 0.6 %; Hematocrit (blood only) 45.9 % (42-52); Immature Granulocytes # (auto) 0.12 K/uL (0.00-0.02); Immature Granulocytes % (auto) 1.3 %; Lymphocytes # (auto) 1.37 K/uL (1.2-3.4); Lymphocytes % (auto) 14.7 %; Mean Corpuscular Hemoglobin 27.8 pg (25-34); Mean Corpuscular Hgb Conc 32.7 g/dL (32-36); Mean Corpuscular Volume 85.2 fL (80-100); Monocytes # (auto) 0.81 K/uL (0.11-0.59); Monocytes % (auto) 8.7 %; Neutrophils # (auto) 6.97 K/uL (1.4-6.5); Neutrophils % (auto) 74.6 %; Platelet Count 311 K/uL (130-400); RDW Coefficient of Variation 17.6 % (11.5-14.5); RDW Standard Deviation 54.1 fL (36.4-46.3); Red Blood Count 5.39 M/uL (4.7-6.1); White Blood Count 9.34 K/uL (4.8-10.8)
[2021-04-04 17:51] LABS: Partial Thromboplastin Ratio 0.9; Partial Thromboplastin Time 23.8 Seconds (21.0-31.0); Prothrombin Time 10.2 Seconds (9.0-12.0)
--- NOTE | 2021-04-04 17:55 | XRay Report ---
XR chest 1V portable CLINICAL HISTORY: SOB TECHNIQUE: Single frontal radiograph of the chest was obtained. Comparison: Comparison is made to chest one view 06/10/2017 FINDINGS: No lines and tubes are seen. The cardiomediastinal silhouette is normal. The lungs are clear. No evid ence of pleural effusion or pneumothorax. Severe degenerative changes are seen bilaterally in the gle nohumeral joints. IMPRESSION: No acute chest disease. ACT 112: Negative or not required by law. Electronically signed by: Ney Small M.D. 04/04/2021 5:53 PM
[2021-04-04 17:56] LABS: BUN Creatinine Ratio 21.7 (10-20); Calcium 9.8 mg/dl (8.5-10.1); Creatinine Clr Calc Pharmacy 97.3 ml/min; Est GFR (African American) 103.9 ml/min; Est GFR (Non-African American) 89.6 ml/min; Magnesium 2.1 mg/dl (1.8-2.4); Potassium 3.9 mmol/L (3.5-5.1)
[2021-04-04 18:11] LABS: Albumin Globulin Ratio 0.7 (0.9-2); Bilirubin,Total 0.3 mg/dl (0.2-1); Globulin 4.1 gm/dl (2.5-4.0); Total Protein 7.1 gm/dl (6.4-8.2); Troponin I 0.082 ng/ml (0-0.045)
--- NOTE | 2021-04-04 19:01 | Emergency Department Note ---
History of Present Illness General Chief Complaint: Infection Stated Complaint: SOB, TINGLING/NUMBNESS L LEG, INFECTION ON FINGER Time Seen by Provider: 04/04/21 18:13 History of Present Illness Provider Complaint: shortness of breath Onset (ago): week(s) (3) Severity: moderate Consistency/Duration: + constant Relieved By: + nothing Exacerbated By: + nothing Known history of: COPD Associated symptoms: + chest pain, + pain with inspiration, + cough and + sputum production; no fever, no wheezing, no polyuria, no palpitations, no hemoptysis, no nausea/vomiting or no abdominal pain HPI Narrative: Patient reports that he was recently seen by his PCP and was started with antibiotics and steroids. Home Medications Medication Instructions Recorded Confirmed Type aspirin 81 mg tablet,delayed 81 mg PO DAILY 04/04/21 04/04/21 History release (Aspirin Low Dose) folic acid 1 mg tablet 1 mg PO DAILY 04/04/21 04/04/21 History hydrocodone 7.5 mg-acetaminophen 1 - 2 tab PO UD PRN 04/04/21 04/04/21 History 325 mg tablet hydroxychloroquine 200 mg tablet 200 mg PO DAILY 04/04/21 04/04/21 History leflunomide 20 mg tablet 20 mg PO DAILY 04/04/21 04/04/21 History multivitamin 1 tab PO DAILY 04/04/21 04/04/21 History omeprazole 40 mg capsule,delayed 40 mg PO DAILY 04/04/21 04/04/21 History release prednisone 10 mg tablet 10 mg PO UD 04/04/21 04/04/21 History Allergies Allergy/AdvReac Type Severity Reaction Status Date / Time No Known Allergies Allergy Unverified 04/04/21 19:07 Past Med/Surg History Medical History (Updated 04/04/21 @ 21:46 by Sergio Hurst) Erectile dysfunction GERD (gastroesophageal reflux disease) Pre-diabetes Tobacco use disorder Surgical History (Updated 04/04/21 @ 18:58 by Sergio Hurst) No pertinent past surgical history Family History (Updated 04/04/21 @ 18:59 by Sergio Hurst) Other Heart disease Social History Smoking Status: Current every day smoker Feels Safe at Home: Yes Review of Systems A total of 10 systems reviewed and were otherwise negative Physical Exam Vital Signs: Vital Signs - 24 hr 04/04/21 17:07 04/04/21 18:35 04/04/21 18:38 Temperature 36.8 C 37.1 C Temperature Source Temporal Artery Sc an Oral Pulse Rate 102 H 108 H Pulse Rate [Apical ] 106 H Pulse Rhythm Regular Regular Pulse Rhythm [Apic al] Regular Pulse Strength Normal Pulse Strength [Ap ical] Normal Respiratory Rate 18 18 18 Respiratory Effort / Characteristics Non-Labored Sponta neous Non-Labored Sponta neous Respiratory Depth Normal Normal Respiratory Patter n Regular Regular Blood Pressure 144/86 H Blood Pressure [Ri ght Arm] 132/83 Blood Pressure Glenys n 105 Blood Pressure Glenys n [Right Arm] 99 Blood Pressure Pos ition Sitting Blood Pressure Pos ition [Right Arm] Semi-fowlers Pulse Oximetry 98 97 96 Oxygen Delivery Me thod Room Air Room Air Room Air Oxygen Flow Rate 0 0 Sepsis Recent Feve r Within 48 Hours No Sepsis New/Unexpla ined Change in Men gabriel Status N/A Sepsis Action Take n by Nursing No Action Required 04/04/21 20:00 Temperature Temperature Source Pulse Rate Pulse Rate [Apical ] 98 H Pulse Rhythm Pulse Rhythm [Apic al] Regular Pulse Strength Pulse Strength [Ap ical] Normal Respiratory Rate 20 Respiratory Effort / Characteristics Non-Labored Sponta neous Respiratory Depth Normal Respiratory Patter n Regular Blood Pressure Blood Pressure [Ri ght Arm] 132/83 Blood Pressure Glen[place] n Blood Pressure Glenys n [Right Arm] 99 Blood Pressure Pos ition Blood Pressure Pos ition [Right Arm] Semi-fowlers Pulse Oximetry 96 Oxygen Delivery Me thod Room Air Oxygen Flow Rate Sepsis Recent Feve r Within 48 Hours Sepsis New/Unexpla ined Change in Men gabriel Status Sepsis Action Take n by Nursing Physical Exam: Physical Exam GENERAL: Disheveled. HENT: Exam performed. - Head: Normocephalic and atraumatic. - Right Ear: External ear normal. No mastoid tenderness. - Left Ear: External ear normal. No mastoid tenderness. - Mouth/Throat: The oropharynx is clear and moist. No trismus in the jaw. No dental abscesses or uvula swelling. No oropharyngeal exudate or tonsillar abscesses. EYES: Conjunctivae and EOM are normal. Pupils are equal, round, and reactive to light. Right eye exhibits no discharge. Left eye exhibits no discharge. No scleral icterus. NECK: Normal range of motion. Neck supple. No JVD present. No spinous process tenderness present. No carotid bruit present. No rigidity. No tracheal deviation and normal range of motion present. No Brudzinski's sign and no Kernig's sign noted. CV: Normal rate, regular rhythm, normal heart sounds and intact distal pulses. There is no peripheral edema. Palpable radial pulses bue. PULM/CHEST: Effort normal and breath sounds normal. No respiratory distress. No stridor. He has no wheezes. He has no rales. - Chest Wall: He exhibits no tenderness. ABD: The abdomen is soft. Bowel sounds are normal. He has no distension. No mass is present. There is no tenderness. There is no rebound, no guarding, no Sheppard's sign and no tenderness at McBurney's point. Rovsig negative. MUSC/SKEL: Normal range of motion. There is no peripheral edema, tenderness or deformity. LYMPH: No cervical adenopathy. NEURO: He is alert and oriented to person, place, and time. He has normal strength. No cranial nerve deficit or sensory deficit. Coordination and gait normal. GCS eye subscore is 4. GCS verbal subscore is 5. GCS motor subscore is 6. Cerebellar tests wnl. SKIN: Skin is warm and dry. He is not diaphoretic. PSYCH: He has a normal mood and affect. Behavior is normal. Judgment and thought content normal. Course Course 1812: The patient was evaluated in room B7. A complete history and physical exam was performed Cardiac monitoring: An order was placed for continuous cardiac monitoring. The monitor shows a rate of 110 with sinus tachycardia rhythm 2000: Vital signs stable. Labs show an elevated troponin. CTA of the chest negative for PE. Patient will be treated with heparin for NSTEMI. Patient reporting no chest pain at this time. No respiratory distress. Lungs clear to auscultation. Patient does report exertional dyspnea. [facility] will be [facility]. Administered Medications Heparin Sodium/Dextrose (Heparin Sodium/Dextrose) 25,000 units in 500 mls @ 19 mls/hr IV .Q24H [facility]; Protocol Stop: 05/04/21 20:29 Last Admin: 04/04/21 20:54 Dose: 950 units/hr, 19 mls/hr Documented by: [id number] Cosigned by: [id number] Discontinued Medications Heparin Sodium (Porcine) (Heparin Sod (Porcine) 1000 Unit/Ml) 4,000 units IV NOW ONE Stop: 04/04/21 20:31 Last Admin: 04/04/21 20:53 Dose: 4,000 units Documented by: [id number] Cosigned by: [id number] Ioversol (Optiray 320 125ml) 116 ml IV ONCE ONE Stop: 04/04/21 19:48 Last Admin: 04/04/21 19:51 Dose: 116 ml Documented by: [id number] Medical Decision Making Laboratory Data Result diagrams: 04/04/21 17:18 04/04/21 17:18 Lab Results 04/04/21 04/04/21 04/04/21 Range/Units 17:18 17:18 17:18 WBC 9.34 (4.8-10.8) K/uL RBC 5.39 (4.7-6.1) M/uL Hgb 15.0 (14.0-18.0) g/dL Hct 45.9 (42-52) % MCV 85.2 (80-100) fL MCH 27.8 (25-34) pg MCHC 32.7 (32-36) g/dL RDW Std Deviation 54.1 H (36.4-46.3) fL RDW Coeff of Alex 17.6 H (11.5-14.5) % Plt Count 311 (130-400) K/uL MPV 10.0 (7.4-10.4) fL Immature Gran % (Auto) 1.3 % Neut % (Auto) 74.6 % Lymph % (Auto) 14.7 % [place] % (Auto) 8.7 % Eos % (Auto) 0.6 % Baso % (Auto) 0.1 % Neut # (Auto) 6.97 H (1.4-6.5) K/uL Lymph # (Auto) 1.37 (1.2-3.4) K/uL [place] # (Auto) 0.81 H (0.11-0.59) K/uL Eos # (Auto) 0.06 (0-0.5) K/uL Baso # (Auto) 0.01 (0-0.2) K/uL Immature Gran # (Auto) 0.12 H (0.00-0.02) K/uL PT 10.2 (9.0-12.0) Seconds INR 1.0 (0.9-1.1) APTT 23.8 (21.0-31.0) Seconds PTT Ratio 0.9 Sodium 139 (136-145) mmol/L Potassium 3.9 (3.5-5.1) mmol/L Chloride 106 (98-107) mmol/L Carbon Dioxide 24 (21-32) mmol/L Anion Gap 9.0 (3-11) BUN 20 H (7-18) mg/dl Creatinine 0.94 (0.6-1.4) mg/dl Est Cr Clr Drug Dosing 97.3 ml/min Est GFR ( Amer) 103.9 ml/min Est GFR (Non-Af Amer) 89.6 ml/min BUN/Creatinine Ratio 21.7 H (10-20) Glucose 150 H (70-99) mg/dl Calcium 9.8 (8.5-10.1) mg/dl Magnesium 2.1 (1.8-2.4) mg/dl Total Bilirubin 0.3 (0.2-1) mg/dl AST 21 (15-37) U/L ALT 36 (12-78) U/L Alkaline Phosphatase 90 (45-117) U/L Troponin I 0.082 H* (0-0.045) ng/ml Total Protein 7.1 (6.4-8.2) gm/dl Albumin 3.0 L (3.4-5.0) gm/dl Globulin 4.1 H (2.5-4.0) gm/dl Albumin/Globulin Ratio 0.7 L (0.9-2) COVID-19 Eval Order 04/04/21 Range/Units 20:51 WBC (4.8-10.8) K/uL RBC (4.7-6.1) M/uL Hgb (14.0-18.0) g/dL Hct (42-52) % MCV (80-100) fL MCH (25-34) pg MCHC (32-36) g/dL RDW Std Deviation (36.4-46.3) fL RDW Coeff of Alex (11.5-14.5) % Plt Count (130-400) K/uL MPV (7.4-10.4) fL Immature Gran % (Auto) % Neut % (Auto) % Lymph % (Auto) % [place] % (Auto) % Eos % (Auto) % Baso % (Auto) % Neut # (Auto) (1.4-6.5) K/uL Lymph # (Auto) (1.2-3.4) K/uL [place] # (Auto) (0.11-0.59) K/uL Eos # (Auto) (0-0.5) K/uL Baso # (Auto) (0-0.2) K/uL Immature Gran # (Auto) (0.00-0.02) K/uL PT (9.0-12.0) Seconds INR (0.9-1.1) APTT (21.0-31.0) Seconds PTT Ratio Sodium (136-145) mmol/L Potassium (3.5-5.1) mmol/L Chloride (98-107) mmol/L Carbon Dioxide (21-32) mmol/L Anion Gap (3-11) BUN (7-18) mg/dl Creatinine (0.6-1.4) mg/dl Est Cr Clr Drug Dosing ml/min Est GFR ( Amer) ml/min Est GFR (Non-Af Amer) ml/min BUN/Creatinine Ratio (10-20) Glucose (70-99) mg/dl Calcium (8.5-10.1) mg/dl Magnesium (1.8-2.4) mg/dl Total Bilirubin (0.2-1) mg/dl AST (15-37) U/L ALT (12-78) U/L Alkaline Phosphatase (45-117) U/L Troponin I (0-0.045) ng/ml Total Protein (6.4-8.2) gm/dl Albumin (3.4-5.0) gm/dl Globulin (2.5-4.0) gm/dl Albumin/Globulin Ratio (0.9-2) COVID-19 Eval Order Covid19 at [facility] Imaging Data Radiologist's Impression: Chest X-Ray 04/04/21 17:10 XR chest 1V portable CLINICAL HISTORY: SOB TECHNIQUE: Single frontal radiograph of the chest was obtained. Comparison: Comparison is made to chest one view 06/10/2017 FINDINGS: No lines and tubes are seen. The cardiomediastinal silhouette is normal. The lungs are clear. No evidence of pleural effusion or pneumothorax. Severe degenerative changes are seen bilaterally in the glenohumeral joints. IMPRESSION: No acute chest disease. ACT 112: Negative or not required by law. Electronically signed by: Ney Small M.D. 04/04/2021 5:53 PM Chest CTA 04/04/21 18:41 CT angio chest PE protocol CLINICAL HISTORY: Dyspnea TECHNIQUE: Multidetector row helical CT of the chest was performed. Coronal and sagittal reformations were obtained. Automated dose lowering techniques and/or adjustment according to patient size were utilized for this exam. Comparison: Comparison is made to CT chest 12/09/2006 FINDINGS: Lungs and pleura: Multiple peripheral nodules are seen, some with cavitation. Fo r example, there is a 1 cm right upper lobe nodule (series 4 image 120) and a 2 cm cavitary left upper lobe mass (image 179). Additional smaller nodules are seen throughout. There is bibasilar atelectasis versus scarring. Heart and pericardium: There is cardiomegaly without evidence of pericardial effusion. Reflux of contrast into the inferior vena cava is seen. Vessels: No evidence of pulmonary embolism. Mediastinum and jayne: Subcentimeter lymph nodes are seen. Chest wall and lower neck: Unremarkable. Abdomen: A hiatal hernia is seen. Bones: Severe degenerative changes are seen in the bilateral glenohumeral joints. IMPRESSION: 1. No evidence of pulmonary embolism. 2. Multiple peripheral predominant nodules, some with cavitation, measuring up to 2 cm. These can be seen in a variety of processes such as vasculitis, septic emboli, tuberculosis, or cavitating metastatic disease. Clinical correlation is recommended. ACT 112: Negative or not required by law. Electronically signed by: Ney Small M.D. 04/04/2021 8:03 PM ECG Data Interpretation: Sinus tachycardia with a rate of 110. MA QRS and QTc intervals within normal limits. No ST elevation or ST depression. PVCs present. [facility] Narrative 1813: The patient was evaluated in room B7. A complete history and physical exam was performed Cardiac monitoring: An order was placed for continuous cardiac monitoring. The monitor shows a rate of 110 with sinus tachycardia rhythm 2000: Vital signs stable. Labs show an elevated troponin. CTA of the chest negative for PE. Patient will be treated with heparin for NSTEMI. Patient reporting no chest pain at this time. No respiratory distress. Lungs clear to auscultation. Patient does report exertional dyspnea. [facility] will be [facility]. Impression & Plan Non-ST elevation SC (NSTEMI) Critical Care Time Critical Care Time: Yes Total Critical Care Time: 45 I have personally spent greater than 45 minutes of critical care time in the direct management of this patient. This includes bedside care, interpretation of diagnostic studies, and testing, discussion with consultants, patient, and family members, and other required patient management activities. This 45 minutes is in excess of all separately billable procedures. Discharge Plan Visit Data Chief Complaint: Infection Stated Complaint: SOB, TINGLING/NUMBNESS L LEG, INFECTION ON FINGER ED Provider: Sergio Hurst Discharge Problem: Non-ST elevation SC (NSTEMI) Patient Disposition: Admitted As Inpatient Forms Stand Alone Forms: [facility] Prescriptions Prescriptions: No Action omeprazole 40 mg capsule,delayed release(DR/EC) 40 mg PO DAILY RF: 0 leflunomide 20 mg tablet 20 mg PO DAILY RF: 0 hydrocodone-acetaminophen 7.5-325 mg tablet 1 - 2 tab PO UD PRN (Reason: Pain) RF: 0 folic acid 1 mg tablet 1 mg PO DAILY RF: 0 hydroxychloroquine 200 mg tablet 200 mg PO DAILY RF: 0 prednisone 10 mg tablet 10 mg PO UD RF: 0 aspirin [Aspirin Low Dose] 81 mg Tablet,Delayed Release (Dr/Ec) 81 mg PO DAILY RF: 0 multivitamin Tablet 1 tab PO DAILY RF: 0 Referrals Referrals: Ludy Remy DO [Primary Care Provider] -
[2021-04-04] MEDS ORDERED: OPTIRAY 320 125ml IV ONE (19:47)
--- NOTE | 2021-04-04 20:04 | CT Scan Report ---
CT angio chest PE protocol CLINICAL HISTORY: Dyspnea TECHNIQUE: Multidetector row helical CT of the chest was performed. Coronal and sagittal reformations were obtained. Automated dose lowering techniques and/or adjustment according to patient size were u tilized for this exam. Comparison: Comparison is made to CT chest 12/09/2006 FINDINGS: Lungs and pleura: Multiple peripheral nodules are seen, some with cavitation. For example, there is a 1 cm right upper lobe nodule (series 4 image 120) and a 2 cm cavitary left upper lobe mass (image 17 9). Additional smaller nodules are seen throughout. There is bibasilar atelectasis versus scarring. Heart and pericardium: There is cardiomegaly without evidence of pericardial effusion. Reflux of cont rast into the inferior vena cava is seen. Vessels: No evidence of pulmonary embolism. Mediastinum and jayne: Subcentimeter lymph nodes are seen. Chest wall and lower neck: Unremarkable. Abdomen: A hiatal hernia is seen. Bones: Severe degenerative changes are seen in the bilateral glenohumeral joints. IMPRESSION: 1. No evidence of pulmonary embolism. 2. Multiple peripheral predominant nodules, some with cavitation, measuring up to 2 cm. These can be seen in a variety of processes such as vasculitis, septic emboli, tuberculosis, or cavitating metast atic disease. Clinical correlation is recommended. ACT 112: Negative or not required by law. Electronically signed by: Ney Small M.D. 04/04/2021 8:03 PM
[2021-04-04] MEDS ORDERED: Heparin IV Adult Wt-Based Low-Dose WITH Bolus Protocol STA (20:05)
[2021-04-04] MEDS ORDERED: HEPARIN SOD (PORCINE) 1000 UNIT/ML IV ONE ×2 (20:20→20:30)
[2021-04-04] MEDS ORDERED: HEPARIN SODIUM/DEXTROSE 25,000 UNITS/500 ML BAG IV SCH (20:30)
[2021-04-04] MEDS ORDERED: DOXYCYCLINE HYCLATE 100 MG in DEXTROSE 5% 100 ML IV STA (22:55)
--- NOTE | 2021-04-04 23:09 | History & Physical Report ---
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 Check hemoglobin A1c Nicotine gum as needed DVT prophylaxis per Lovenox subcu Full code Patient requesting updates from providers. Hayley Eddie, contact #[phone]. Text document was generated using writewith voice recognition software. It may contain grammatical or spelling errors. Kindly contact undersigned for clarification of any documentation item in question. History of Present Illness Chief Complaint: Shortness of breath, finger wound Primary Care Provider: Ludy Remy, History obtained from patient, family, and records. Medical history significant for rheumatoid arthritis on leflunomide,chronic steroid Rx; HCV status post treatment, chronic anemia (baseline hemoglobin of 13), ongoing tobacco abuse. Last confinement 2017 under Orthopedics service for elective right knee surgery. About 2 months ago, patient developed wound infections on both elbows. Possibly from bumping his elbows. Outpatient CS MSSA. Elbow wounds improved with Bactrim Rx. Last month, patient noted a wound on the right ring finger. Patient unsure about trauma. Some drainage. No fever, no chills. 3 weeks ago, patient noted dry cough with shortness of breath especially on exertion. No fever, no chills, no night sweats, no unusual weight loss. Transient chest tightness as per patient. Patient seen at [facility] ER. Prescribed an antibiotic and steroid course for possible pneumonia. Worsening shortness of breath especially on exertion without chest pain. Patient also noted a red rash on his left forearm. Patient directed to ER by PCP. At the ER, IV Heparin started for troponin elevation. 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 Allergies Allergy/AdvReac Type Severity Reaction Status Date / Time No Known Allergies Allergy Unverified 04/04/21 19:07 Home Medications Medication Instructions Recorded Confirmed Type aspirin 81 mg tablet,delayed 81 mg PO DAILY 04/04/21 04/04/21 History release (Aspirin Low Dose) folic acid 1 mg tablet 1 mg PO DAILY 04/04/21 04/04/21 History hydrocodone 7.5 mg-acetaminophen 1 - 2 tab PO UD PRN 04/04/21 04/04/21 History 325 mg tablet hydroxychloroquine 200 mg tablet 200 mg PO DAILY 04/04/21 04/04/21 History leflunomide 20 mg tablet 20 mg PO DAILY 04/04/21 04/04/21 History multivitamin 1 tab PO DAILY 04/04/21 04/04/21 History omeprazole 40 mg capsule,delayed 40 mg PO DAILY 04/04/21 04/04/21 History release prednisone 10 mg tablet 10 mg PO UD 04/04/21 04/04/21 History Past Med/Surg History Medical History (Updated 04/05/21 @ 10:45 by Tex Cuevas MD) Erectile dysfunction GERD (gastroesophageal reflux disease) Pre-diabetes Tobacco use disorder Surgical History (Updated 04/04/21 @ 18:58 by Sergio Hurst) No pertinent past surgical history Family History (Updated 04/04/21 @ 18:59 by Sergio Hurst) Other Heart disease Social History Smoking Status: Current every day smoker Second Hand Exposure: Yes; Do You Dip or Chew Tobacco: No; Hx Alcohol Use: No Hx Substance Use: No Preferred Language: [place] Island[place] Communication Ability: Effective Greenhouse Or Nursery Transplanter Required: No Beliefs That Will Affect Care: None Current Living Situation: Family Other Information That Helps Us Care for You: No Feels Safe at Home: Yes Safety Concerns: Feels Safe At This Time Assistive Devices: None Review of Systems Review of Systems: As per HPI, all 10 systems reviewed, all other ROS negative Physical Exam Physical Exam: GENERAL: Comfortable, pleasant, no respiratory distress SKIN: Normal color, warm HEENT: [place] palpebral conjunctivae, no ptosis, dry buccal mucosa NECK : Supple, no tenderness CHEST : Decreased breath sounds, no tenderness HEART : Tachycardic R, no obvious murmurs ABDOMEN: Some distention, nontender EXTREMITIES : Ulcerated wound adjacent to nail bed distal phalanx of right fourth digit with minimal tenderness, report rash left forearm, no other conspicuous deformities noted NEUROLOGIC : Coherent, no facial asymmetry, no other gross focality Results & Data Results & Data ([facility]) Vital Signs (Past 12 Hours) Vital Signs Temp Pulse Pulse Resp BP BP Pulse Ox 04/04/21 22:00 94 H 18 130/84 98 04/04/21 20:00 98 H 20 132/83 96 04/04/21 18:38 108 H 18 96 04/04/21 18:35 37.1 C 106 H 18 132/83 97 04/04/21 17:07 36.8 C 102 H 18 144/86 H 98 Laboratory Results Laboratory Results WBC 9.34 K/uL (4.8-10.8) 04/04/21 17:18 RBC 5.39 M/uL (4.7-6.1) 04/04/21 17:18 Hgb 15.0 g/dL (14.0-18.0) 04/04/21 17:18 Hct 45.9 % (42-52) 04/04/21 17:18 MCV 85.2 fL (80-100) 04/04/21 17:18 MCH 27.8 pg (25-34) 04/04/21 17:18 MCHC 32.7 g/dL (32-36) 04/04/21 17:18 RDW Std Deviation 54.1 fL (36.4-46.3) H 04/04/21 17:18 RDW Coeff of Alex 17.6 % (11.5-14.5) H 04/04/21 17:18 Plt Count 311 K/uL (130-400) 04/04/21 17:18 MPV 10.0 fL (7.4-10.4) 04/04/21 17:18 Immature Gran % (Auto) 1.3 % 04/04/21 17:18 Neut % (Auto) 74.6 % 04/04/21 17:18 Lymph % (Auto) 14.7 % 04/04/21 17:18 [place] % (Auto) 8.7 % 04/04/21 17:18 Eos % (Auto) 0.6 % 04/04/21 17:18 Baso % (Auto) 0.1 % 04/04/21 17:18 Neut # (Auto) 6.97 K/uL (1.4-6.5) H 04/04/21 17:18 Lymph # (Auto) 1.37 K/uL (1.2-3.4) 04/04/21 17:18 [place] # (Auto) 0.81 K/uL (0.11-0.59) H 04/04/21 17:18 Eos # (Auto) 0.06 K/uL (0-0.5) 04/04/21 17:18 Baso # (Auto) 0.01 K/uL (0-0.2) 04/04/21 17:18 Immature Gran # (Auto) 0.12 K/uL (0.00-0.02) H 04/04/21 17:18 PT 10.2 Seconds (9.0-12.0) 04/04/21 17:18 INR 1.0 (0.9-1.1) 04/04/21 17:18 APTT 23.8 Seconds (21.0-31.0) 04/04/21 17:18 PTT Ratio 0.9 04/04/21 17:18 Sodium 139 mmol/L (136-145) 04/04/21 17:18 Potassium 3.9 mmol/L (3.5-5.1) 04/04/21 17:18 Chloride 106 mmol/L (98-107) 04/04/21 17:18 Carbon Dioxide 24 mmol/L (21-32) 04/04/21 17:18 Anion Gap 9.0 (3-11) 04/04/21 17:18 BUN 20 mg/dl (7-18) H 04/04/21 17:18 Creatinine 0.94 mg/dl (0.6-1.4) 04/04/21 17:18 Est Cr Clr Drug Dosing 97.3 ml/min 04/04/21 17:18 Est GFR ( Amer) 103.9 ml/min 04/04/21 17:18 Est GFR (Non-Af Amer) 89.6 ml/min 04/04/21 17:18 BUN/Creatinine Ratio 21.7 (10-20) H 04/04/21 17:18 Glucose 150 mg/dl (70-99) H 04/04/21 17:18 Calcium 9.8 mg/dl (8.5-10.1) 04/04/21 17:18 Magnesium 2.1 mg/dl (1.8-2.4) 04/04/21 17:18 Total Bilirubin 0.3 mg/dl (0.2-1) 04/04/21 17:18 AST 21 U/L (15-37) 04/04/21 17:18 ALT 36 U/L (12-78) 04/04/21 17:18 Alkaline Phosphatase 90 U/L (45-117) 04/04/21 17:18 Troponin I 0.082 ng/ml (0-0.045) H* 04/04/21 17:18 Total Protein 7.1 gm/dl (6.4-8.2) 04/04/21 17:18 Albumin 3.0 gm/dl (3.4-5.0) L 04/04/21 17:18 Globulin 4.1 gm/dl (2.5-4.0) H 04/04/21 17:18 Albumin/Globulin Ratio 0.7 (0.9-2) L 04/04/21 17:18 COVID-19 Eval Order Covid19 at [facility] 04/04/21 20:51 SARS-CoV-2 (PCR) NEGATIVE (Negative) 04/04/21 20:51 Impressions Chest X-Ray 04/04/21 17:10 XR chest 1V portable CLINICAL HISTORY: SOB TECHNIQUE: Single frontal radiograph of the chest was obtained. Comparison: Comparison is made to chest one view 06/10/2017 FINDINGS: No lines and tubes are seen. The cardiomediastinal silhouette is normal. The lungs are clear. No evidence of pleural effusion or pneumothorax. Severe degenerative changes are seen bilaterally in the glenohumeral joints. IMPRESSION: No acute chest disease. ACT 112: Negative or not required by law. Electronically signed by: Ney Small M.D. 04/04/2021 5:53 PM Chest CTA 04/04/21 18:41 CT angio chest PE protocol CLINICAL HISTORY: Dyspnea TECHNIQUE: Multidetector row helical CT of the chest was performed. Coronal and sagittal reformations were obtained. Automated dose lowering techniques and/or adjustment according to patient size were utilized for this exam. Comparison: Comparison is made to CT chest 12/09/2006 FINDINGS: Lungs and pleura: Multiple peripheral nodules are seen, some with cavitation. For example, there is a 1 cm right upper lobe nodule (series 4 image 120) and a 2 cm cavitary left upper lobe mass (image 179). Additional smaller nodules are seen throughout. There is bibasilar atelectasis versus scarring. Heart and pericardium: There is cardiomegaly without evidence of pericardial effusion. Reflux of contrast into the inferior vena cava is seen. Vessels: No evidence of pulmonary embolism. Mediastinum and jayne: Subcentimeter lymph nodes are seen. Chest wall and lower neck: Unremarkable. Abdomen: A hiatal hernia is seen. Bones: Severe degenerative changes are seen in the bilateral glenohumeral joints. IMPRESSION: 1. No evidence of pulmonary embolism. 2. Multiple peripheral predominant nodules, some with cavitation, measuring up to 2 cm. These can be seen in a variety of processes such as vasculitis, septic emboli, tuberculosis, or cavitating metastatic disease. Clinical correlation is recommended. ACT 112: Negative or not required by law. Electronically signed by: Ney Small M.D. 04/04/2021 8:03 PM Diagnostic Findings EKG as per my interpretation : Rate 110, sinus tachycardia, normal axis, T wave abnormalities lateral leads, PVCs Code Status & VTE Plan VTE Prophylaxis Plan VTE Prophylaxis will be ordered: Yes
[2021-04-04] MEDS ORDERED: NSS + 20MEQ KCL 20 MEQ/1,000 ML BAG IV ONE (23:21)
[2021-04-05 00:23] LABS: C Reactive Protein 1.37 mg/dl (0-0.29); Troponin I 0.085 ng/ml (0-0.045)
[2021-04-05] MEDS ORDERED: oxyCODONE HCL IR 5 MG TAB (IMMEDIATE RELEASE) PO PRN (01:44)
[2021-04-05] MEDS ORDERED: PROMETHAZINE HCL 12.5 MG in SODIUM CHLORIDE 0.9% 50 ML IV PRN (01:44)
[2021-04-05] MEDS ORDERED: MoRPHine SULFATE 4 MG/ML 1 ML CARP\\VIAL IV PRN (01:44)
[2021-04-05 06:08] LABS: Basophils # (auto) 0.02 K/uL (0-0.2); Basophils % (auto) 0.2 %; Eosinophils # (auto) 0.22 K/uL (0-0.5); Eosinophils % (auto) 2.7 %; Hematocrit (blood only) 44.4 % (42-52); Hemoglobin 14.3 g/dL (14.0-18.0); Immature Granulocytes # (auto) 0.11 K/uL (0.00-0.02); Immature Granulocytes % (auto) 1.3 %; Lymphocytes # (auto) 1.81 K/uL (1.2-3.4); Lymphocytes % (auto) 22.1 %; Mean Corpuscular Hemoglobin 27.6 pg (25-34); Mean Corpuscular Hgb Conc 32.2 g/dL (32-36); Mean Corpuscular Volume 85.7 fL (80-100); Mean Platelet Volume 9.9 fL (7.4-10.4); Monocytes # (auto) 0.77 K/uL (0.11-0.59); Monocytes % (auto) 9.4 %; Neutrophils # (auto) 5.26 K/uL (1.4-6.5); Neutrophils % (auto) 64.3 %; Platelet Count 265 K/uL (130-400); RDW Coefficient of Variation 17.6 % (11.5-14.5); RDW Standard Deviation 54.1 fL (36.4-46.3); Red Blood Count 5.18 M/uL (4.7-6.1); White Blood Count 8.19 K/uL (4.8-10.8)
[2021-04-05 06:55] LABS: BUN Creatinine Ratio 22.6 (10-20); Calcium 8.7 mg/dl (8.5-10.1); Creatinine Clr Calc Pharmacy 106.5 ml/min; Est GFR (African American) 115.5 ml/min; Est GFR (Non-African American) 99.7 ml/min; Potassium 3.9 mmol/L (3.5-5.1); Troponin I 0.097 ng/ml (0-0.045)
--- NOTE | 2021-04-05 07:00 | XRay Report ---
XR hand RT min 3V routine CLINICAL HISTORY: 4th digit wound. Pain and swelling COMPARISON STUDY: No previous studies for comparison. TECHNIQUE: 3 right hand views FINDINGS: Bones: There is no evidence for an acute fracture or dislocation. There is no lytic or blastic lesion . Joints: There is moderate to marked narrowing of the first and second MCP joints and moderate narrowi ng of the third MCP joint. There is also narrowing and degenerative changes of the fourth PIP joint. The remaining joint spaces are maintained. However, there are degenerative changes present at the wri st joint. The bones are in anatomic alignment. Soft tissues: There is no focal soft tissue abnormality. There is no radiopaque foreign body. IMPRESSION: No acute osseous pathology. Osteoarthritis. ACT 112: Negative or not required by law. Electronically signed by: Jose Sandoval M.D. 04/05/2021 6:59 AM
[2021-04-05 07:50] LABS: Estimated Average Glucose 134 mg/dl; Hemoglobin A1C 6.3 % (4.5-5.6)
[2021-04-05] MEDS ORDERED: TUBERCULIN SKIN TEST 5 TU in SYRINGE 0 ML ID SCH (08:00)
[2021-04-05] MEDS: ASPIRIN 81 MG ECTAB PO SCH (08:57)
[2021-04-05] MEDS: ENOXAPARIN INJ 40 MG/0.4 ML SYR SQ SCH (08:57)
[2021-04-05] MEDS: DOXYCYCLINE HYCLATE 100 MG CAP PO SCH ×2 (08:57→21:23)
[2021-04-05] MEDS: MULTIVITAMIN TAB PO SCH (08:58)
[2021-04-05] MEDS: HYDROXYCHLOROQUINE SULFATE 200 MG TAB PO SCH (08:58)
[2021-04-05] MEDS: FOLIC ACID 1 MG TAB PO SCH (08:58)
[2021-04-05] MEDS: PANTOprazole 40 MG TAB PO SCH (08:59)
[2021-04-05] MEDS ORDERED: predniSONE 10 MG TABLET PO SCH (09:00)
--- NOTE | 2021-04-05 10:42 | Pulmonary Consultation ---
Date of Consultation April 05, 2021 Assessment & Plan (1) Pulmonary nodule: (2) SOB (shortness of breath): Impression: 56-year-old male with rheumatoid arthritis admitted with shortness of breath. He was recently treated for skin infection with MSSA according to the H&P. I do not have those records available to review. That history in combination with the radiographic findings would make septic emboli highly likely as these are subpleural nodules some of which demonstrate cavitation. Pattern would be unusual for tuberculosis. Other etiologies including coccidiomycosis and cryptococcus would be in the differential as well. Malignancy is much less likely. Also possible that these nodules could represent rheumatoid nodules. Recommendations: 1. We will check QuantiFERON assay. If it is negative, I think the likelihood of TB is quite low and I think the patient can likely be removed from isolation as he has not had associated symptoms concerning for tuberculosis or any e xposures. He is not coughing up phlegm so I think a sputum culture is unlikely to be beneficial and bronchoscopy would be very low yield given the peripheral nature of these nodules. 2. Check cocci serologies as well as crypto. 3. Agree with blood cultures. Will order echocardiogram to evaluate for potential endocarditis. Depending on those results, ID consultation may be beneficial. 4. Recommend cardiology consultation regarding the patient's elevated troponin. 5. Patient is not hypoxemic and does not appear toxic. His shortness of breath work-up can likely be conducted as an outpatient setting if the above evaluation is unremarkable. Please for the opportunity of assisting in the care of this patient. Feel free to contact us with additional questions. We will continue to follow with you. History of Present Illness Attending Physician: Alexsandra Mendez MD History of Present Illness Asked by hospitalist to evaluate this patient with an abnormal CT scan. History is obtained from discussion with the patient and reviewed electronic medical r ecord. Patient is a 56-year-old male with a history of rheumatoid arthritis. He is maintained on leflunomide and steroids. He believes he was on Biologics in the past but has not been on these in quite some time. He has had multiple tests for tuberculosis as he was been in and out of the [place] [facility]. He does have a history of IV drug abuse but has not used IV drugs since the . He is not had any exposures to tuberculosis that he is aware of. The patient has about a 3-week history of cough. He does not report fevers chills night sweats or sputum production. No hemoptysis. He is not had any ill contacts. He lives at home and works for a [employer] company. They have no pets at home. No occupational or environmental exposures. He had a history of methicillin sensitive staph aureus on his elbows. He was reportedly treated with Bactrim at that time. He is also been on antibiotics and prednisone for possible pneumonia from [facility] 3 weeks ago. Patient has had progressive shortness of breath without overt chest discomfort. He was seen in the emergency room. He is found to have a mildly elevated troponin which prompted initiation of a heparin infusion. He also had a CT angiogram performed which revealed some new subpleural pulmonary nodules some of which demonstrated cavitation. Allergies Allergy/AdvReac Type Severity Reaction Status Date / Time No Known Allergies Allergy Unverified 04/04/21 19:07 Home Medications Medication Instructions Recorded Confirmed Type aspirin 81 mg tablet,delayed 81 mg PO DAILY 04/04/21 04/04/21 History release (Aspirin Low Dose) folic acid 1 mg tablet 1 mg PO DAILY 04/04/21 04/04/21 History hydrocodone 7.5 mg-acetaminophen 1 - 2 tab PO UD PRN 04/04/21 04/04/21 History 325 mg tablet hydroxychloroquine 200 mg tablet 200 mg PO DAILY 04/04/21 04/04/21 History leflunomide 20 mg tablet 20 mg PO DAILY 04/04/21 04/04/21 History multivitamin 1 tab PO DAILY 04/04/21 04/04/21 History omeprazole 40 mg capsule,delayed 40 mg PO DAILY 04/04/21 04/04/21 History release prednisone 10 mg tablet 10 mg PO UD 04/04/21 04/04/21 History Patient History Medical History (Updated 04/05/21 @ 10:45 by Tex Cuevas MD) Erectile dysfunction GERD (gastroesophageal reflux disease) Pre-diabetes Tobacco use disorder Surgical History (Updated 04/04/21 @ 18:58 by Sergio Hurst) No pertinent past surgical history Family History (Updated 04/04/21 @ 18:59 by Sergio Hurst) Other Heart disease Social History Smoking Status: Current every day smoker Second Hand Exposure: Yes; Do You Dip or Chew Tobacco: No; Hx Alcohol Use: No Hx Substance Use: No Preferred Language: Gren[place] Communication Ability: Effective Carding Supervisor Required: No Beliefs That Will Affect Care: None Current Living Situation: Family Other Information That Helps Us Care for You: No Feels Safe at Home: Yes Safety Concerns: Feels Safe At This Time Assistive Devices: None Review of Systems Review of Systems: All systems reviewed & are unremarkable except as noted in Subjective Physical Exam Constitutional: WD/WN, vitals as above Neck: trachea midline, no thyromegaly Respiratory: normal respiratory effort, lungs clear to auscultation Cardiovascular: RRR, no murmur, no edema Gastrointestinal (Abdomen): normal bowel sounds, soft, nontender, no hep atosplenomegaly Musculoskeletal: Extremities: extremities normal to inspection Skin: no rashes, warm and dry Neurologic: Nonfocal exam Lymphatic: no cervical lymphadenopathy Results & Data Results & Data ([facility]) Vital Signs (Past 12 Hours) Vital Signs Temp Pulse Pulse Resp BP BP Pulse Ox 04/05/21 09:00 99 H 04/05/21 07:39 36.6 C 105 H 22 143/92 H 97 04/05/21 04:00 36.7 C 98 H 16 129/86 97 04/05/21 01:44 105 H 04/05/21 01:20 36.7 C 98 H 22 129/86 97 04/05/21 00:46 100 H 19 134/96 97 04/05/21 00:12 102 H 16 95 Laboratory Results 04/05/21 05:46 04/05/21 05:46 ESR and CRP mildly elevated. Procalcitonin negative Diagnostic Findings CT angio chest PE protocol 04/04/2021: Film was independently reviewed CLINICAL HISTORY: Dyspnea TECHNIQUE: Multidetector row helical CT of the chest was performed. Coronal and sagittal reformations were obtained. Automated dose lowering techniques and/or adjustment according to patient size were utilized for this exam. Comparison: Comparison is made to CT chest 12/09/2006 FINDINGS: Lungs and pleura: Multiple peripheral nodules are seen, some with cavitation. For example, there is a 1 cm right upper lobe nodule (series 4 image 120) and a 2 cm cavitary left upper lobe mass (image 179). Additional smaller nodules are seen throughout. There is bibasilar atelectasis versus scarring. Heart and pericardium: There is cardiomegaly without evidence of pericardial effusion. Reflux of contrast into the inferior vena cava is seen. Vessels: No evidence of pulmonary embolism. Mediastinum and jayne: Subcentimeter lymph nodes are seen. Chest wall and lower neck: Unremarkable. Abdomen: A hiatal hernia is seen. Bones: Severe degenerative changes are seen in the bilateral glenohumeral joints. IMPRESSION: 1. No evidence of pulmonary embolism. 2. Multiple peripheral predominant nodules, some with cavitation, measuring up to 2 cm. These can be seen in a variety of processes such as vasculitis, septic emboli, tuberculosis, or cavitating metastatic disease. Clinical correlation is recommended. PG Care Time/CCT Total # of Minutes Spent Total Time Spent with Patient: Total time spent is greater than 50% in coordination of care (as documented) at patient's floor/unit and/or counseling patient: Coding Level of Care Code 53756 Inpt Consult Level 4 Diagnoses Pulmonary nodule R91.1 SOB (shortness of breath) R06.02
--- NOTE | 2021-04-05 13:32 | Electrocardiogram Report ---
Test Reason : Blood Pressure : / mmHG Vent. Rate : 110 BPM Atrial Rate : 110 BPM P-R Int : 158 ms QRS Dur : 086 ms QT Int : 352 ms P-R-T Axes : 058 000 092 degrees QTc Int : 476 ms Sinus tachycardia with occasional Premature ventricular complexes Possible Left atrial enlargement Poor R wave progression, consider anterior [place] vs. lead placement vs. LVH Abnormal ECG When compared with ECG of 16-AUG-2017 11:21, Premature ventricular complexes are now Present Vent. rate has increased BY 37 BPM Confirmed by Skyler Calloway ([id number]) on 04/05/2021 1:32:06 PM Referred By: REFERRED SELF Confirmed By:Skyler Calloway
--- NOTE | 2021-04-05 16:31 | Rheumatology Consultation ---
Rheumatology Consultation DOS April 05, [address] Laurent Reason for Consultation Concern for vasculitis Assessment & Plan (1) SOB (shortness of breath): He presented because of LEVIN and orthopenia. CT scan showing pulmonary nodules with cavitation in this immunocompromised patient who was recently treated for a cellulitis and now has a digital lesion. Patient also has poor dentition. Infection is higher on my differential at this point (2) Non-ST elevation FL (NSTEMI): Likely due to some demand ischemia (3) Pulmonary nodule: Noted on CTA. Given recent treatment for cellulitis, worsening joint symptoms despite aggressive immunosuppression, and location of pulmonary nodules, in speaking with Dr. Cuevas, we are concerned about septic emboli from infection. Rheumatoid vasculitis would not have this pattern on imaging and skin findings favor a septic emboli to his finger and bruising due to chronic use of steroids. (4) Abnormal CT of the chest: Concerning for infection > vasculitis or other etiologies See above (5) Rheumatoid arthritis: Has been active and in retrospect I was concerned about an infection like lyme or a crystal arthropathy given his complete lack of response to Rinvoq in addition to ongoing use of leflunomide, Plaquenil, and moderate doses of steroids. No history of RA nodules or respiratory involvement the past. (6) Chronic steroid use: Has been on varying doses of prednisone since his diagnosis in 2018 but more recently on 10 mg daily --Agree with workup initiated by Dr. Cuevas --Please consider adding the following labs: cryoglobulins, ANCA, PR3, MPO, and urinalysis --Hold Arava. Ok to continue Plaquenil and can decrease prednisone to 7.5 mg daily --Consider DIEGO History of Present Illness Attending Physician: Alexsandra Mendez MD History of Present Illness 56 year old man with past medical history significant for osteoarthritis, treated Hepatitis C, and seropositive RA diagnosed in 2018 (RF 111, CCP >250). He is followed by me and was last seen in clinic on 03/21/21 for worsening joint symptoms despite his most recent immunosuppressive regimen which was Rinvoq prescribed in December 2020, leflunomide 20 mg daily, hy droxychloroquine 400 mg daily, and prednisone. At the visit, he had noted that he had stopped Rinvoq on 03/18/21 because of lack of efficacy. He had been experiencing migrating joint symptoms and joint swelling affecting his feet that was not responding to prednisone 40 mg daily. He had presented to an outside ED the day prior (03/20/21) with chief complaint of worsening shortness of breath. He was hoping to get a COVID test but was told that the test was not performed at the site. He had a negative chest x-ray but was diagnosed with pneumonia and prescribed 40 mg daily of prednisone for 5 days and a Z-benja. On exam he had 9 tender joints but no swollen joints. He had scattered bruises and ecchymoses on his upper arms. He was advised to hold leflunomide, complete antibiotics and prednisone prescribed by the ED and resume his RA medications. A prior authorization for infliximab biosimilar was initiated. Of note, he had been treated with 1 week of Bactrim DS for a right elbow cellulitis with the culture of the wound done 02/19/21 that grew MSSA. Past treatments for his rheumatoid arthritis have included early use of methotrexate which he did not tolerate, Humira 06/16-03/16- discontinued due to development of psoriasis; Xeljanz XR- not beneficial; SSZ- off due to back order, and more recently Rinvoq which patient self discontinued due to lack of benefit. Hepatitis B, C, and Quantiferon testing were negative in 2019 prior to initiation of biologics. He denies any recent risk factors for TB (homelessness, incarceration, recent travel or close contact with someone from an endemic TB region) although he is immunocompromised. Allergies Allergy/AdvReac Type Severity Reaction Status Date / Time No Known Allergies Allergy Unverified 04/04/21 19:07 Home Medications Medication Instructions Recorded Confirmed Type aspirin 81 mg tablet,delayed 81 mg PO DAILY 04/04/21 04/04/21 History release (Aspirin Low Dose) folic acid 1 mg tablet 1 mg PO DAILY 04/04/21 04/04/21 History hydrocodone 7.5 mg-acetaminophen 1 - 2 tab PO UD PRN 04/04/21 04/04/21 History 325 mg tablet hydroxychloroquine 200 mg tablet 200 mg PO DAILY 04/04/21 04/04/21 History leflunomide 20 mg tablet 20 mg PO DAILY 04/04/21 04/04/21 History multivitamin 1 tab PO DAILY 04/04/21 04/04/21 History omeprazole 40 mg capsule,delayed 40 mg PO DAILY 04/04/21 04/04/21 History release prednisone 10 mg tablet 10 mg PO UD 04/04/21 04/04/21 History Patient History Medical History Chronic steroid use Erectile dysfunction GERD (gastroesophageal reflux disease) Long-term use of high-risk medication Pre-diabetes Rheumatoid arthritis Tobacco use disorder Surgical History No pertinent past surgical history Family History Other Heart disease Social History Smoking Status: Current every day smoker Second Hand Exposure: Yes; Do You Dip or Chew Tobacco: No; Hx Alcohol Use: No Hx Substance Use: No Preferred Language: Swiss Communication Ability: Effective 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 Beliefs That Will Affect Care: None Current Living Situation: Family Other Information That Helps Us Care for You: No Feels Safe at Home: Yes Safety Concerns: Feels Safe At This Time Assistive Devices: None Review of Systems Constitutional: Positive for fatigue, trouble sleeping Eyes: Dry eyes Ear, Nose, Mouth, Throat: Mouth sores, mouth ulcers, recent tooth pulled, nasal congestion, trouble swallowing, sore throat Respiratory: Shortness of breath, trouble laying flat Cardiovascular: Additional Comments: No Chest pain Musculoskeletal: Joint pain, joint stiffness, joint swelling, weak muscles Integumentary: easy bruising, painful sore on finger Hematologic / Lymphatic: easy bruising Physical Exam Constitutional: Laying in bed in no actue distress Eyes: no scleral icterus, no conjunctival injection ENMT: Mouth: + dentition abnormality, + dental caries and + poor dentition no ulcers Respiratory: normal respiratory effort and symmetric chest movement Auscult ation: lungs clear to auscultation bilaterally Cardiovascular: Rate/Rhythm: regular rate and regular rhythm Heart Sounds: normal S1 and normal S2 Gastrointestinal (Abdomen): normal bowel sounds, soft, nontender, no hepatosplenomegaly Musculoskeletal: No joint tenderness or swelling Skin: skin breakdown with erythema on lateral aspect of right 4th digit without weeping or discharge; ecchymoses on left forearm and scattered erythematous patches and excoriation on right forearm, several papules on lower abdomen Results & Data ([facility]) Vital Signs (Past 12 Hours) Vital Signs Temp Pulse Pulse Resp BP Pulse Ox 04/05/21 15:55 36.7 C 106 H 22 131/88 97 04/05/21 15:38 101 H 04/05/21 12:08 36.7 C 106 H 20 147/100 H 99 04/05/21 09:00 99 H 04/05/21 07:39 36.6 C 105 H 22 143/92 H 97 Laboratory Results Labs from [facility]: Component Latest Ref Rng & Units 03/16/2021 Antinuclear Antibody Interpretation, IFA Negative Negative Antinuclear Antibody Titer, IFA <1:40 Titer <1:40 Uric Acid 3.4 - 7.0 mg/dL 3.4 Complement C3 90 - 180 mg/dL 167 Complement C4 10 - 40 mg/dL 25 HISTONE ANTIBODIES <1.0 U <1.0 Component Latest Ref Rng & Units 03/16/2021 Lyme Disease Antibody Screen Negative Negative Diagnostic Findings CTA done 04/04/21 FINDINGS: Lungs and pleura: Multiple peripheral nodules are seen, some with cavitation. For example, there is a 1 cm right upper lobe nodule (series 4 image 120) and a 2 cm cavitary left upper lobe mass (image 179). Additional smaller nodules are seen throughout. There is bibasilar atelectasis versus scarring. Heart and pericardium: There is cardiomegaly without evidence of pericardial effusion. Reflux of contrast into the inferior vena cava is seen. Vessels: No evidence of pulmonary embolism. Mediastinum and jayne: Subcentimeter lymph nodes are seen. Chest wall and lower neck: Unremarkable. Abdomen: A hiatal hernia is seen. Bones: Severe degenerative changes are seen in the bilateral glenohumeral joints. IMPRESSION: 1. No evidence of pulmonary embolism. 2. Multiple peripheral predominant nodules, some with cavitation, measuring up to 2 cm. These can be seen in a variety of processes such as vasculitis, septic emboli, tuberculosis, or cavitating metastatic disease. Clinical correlation is recommended. 04/05/21 echocardiogram
[2021-04-05] MEDS ORDERED: ACETAMINOPHEN 325 MG TAB PO PRN (23:54)
--- NOTE | 2021-04-05 23:54 | Hospitalist Progress Note ---
Date of Service April 05, 2021 Assessment & Plan (1) SOB (shortness of breath): Plan: Present on admission with SOB and cough Multiple etiologies including CHF and rheumatoid lung, doubt any pneumonia CT chest showed multiple peripheral predominant nodules, some with cavitation, measuring up to 2 cm. Pulm on board QuantiFERON assay, cocci, crypto pending Continue airbone precaution Will follow echo report Will continue monitor closely Elevated troponin possible related to SOB /CHF/tachycardia Troponin peak to 0,.09, then trending down to 0.077 EKG showed no acute ischemic changes Echo showed showed LV systolic function is mildly reduced, EF 40 to 45%, mild concentric LV hypertrophy, mild to moderate global hypokinesis of the left ventricle, diastolic dysfunction grade 2, left atrium is mildly dilated and mild mitral regurgitation Will consult cardiology Continue metoprolol and aspirin Continue monitor in tele Right finger infection Could be secondary to vasculitis and/or infarction Hand xray showed no acute osseous pathology. Osteoarthritis. He was starting on Doxycycline for right finger infection Continue monitor . Rheumatoid arthritis Continue leflunomide Continue prednisone Immunocompromised patient Hold patient's Arava until TB ruled out and patient seen by rheumatology. Rheumatology consulted chronic anemia hemoglobin stable Hyperglycemia Mostly due to steroid induced hypweglycemia Most recent Hba1c 6.3 Continue monitor BS Tobacco abuse Counseling on smoking cessation DVT prophylaxis per Lovenox subcu Full code Patient requesting updates from providers. Katty Hayley Morgan, contact #[phone]. Admission and Anticipated Discharge Date Admission Date: April 04, 2021 Subjective Patient was seen and examined for follow-up of shortness of breath Lying in bed with no acute distress Patient said that he continues to have shortness of breath with minimal exertion Denies any chest pain, palpitation, dizziness and SOB Review of Systems Review of Systems: All systems reviewed & are unremarkable except as noted in Subjective Physical Exam Physical Exam: General- No acute distress Head- atraumatic Eyes- PERRL, EOMI, ENT- oropharynx clear Neck- supple, no JVD Lungs- +diminished BS Heart- regular rhythm; no murmur Abdomen- normal bowel sounds, soft, nontender Extremities- no calf tenderness Neuro- alert, oriented x 3; PERRL, EOMI; no facial palsy; no dysarthria Skin- warm & dry Results & Data Results & Data ([facility]) Vital Signs (Past 12 Hours) Vital Signs Temp Pulse Pulse Resp BP Pulse Ox 04/05/21 23:46 36.7 C 104 H 24 129/81 98 04/05/21 20:14 36.5 C 96 H 20 150/64 H 96 04/05/21 19:25 101 H 04/05/21 15:55 36.7 C 106 H 22 131/88 97 04/05/21 15:38 101 H 04/05/21 12:08 36.7 C 106 H 20 147/100 H 99
--- NOTE | 2021-04-06 00:54 | Communication Note ---
Date of Service: April 06, 2021 Mild systolic dysfunction noted on TTE Initiate beta-tyrone, cardiology consult in a.m. for CHF, troponin elevation.
[2021-04-06] MEDS: METOPROLOL TARTRATE 25 MG TAB PO SCH ×2 (00:57→09:02)
[2021-04-06] MEDS: HYDROXYCHLOROQUINE SULFATE 200 MG TAB PO SCH (09:01)
[2021-04-06] MEDS: DOXYCYCLINE HYCLATE 100 MG CAP PO SCH ×2 (09:01→19:40)
[2021-04-06] MEDS: ASPIRIN 81 MG ECTAB PO SCH (09:01)
[2021-04-06] MEDS: PANTOprazole 40 MG TAB PO SCH (09:01)
[2021-04-06] MEDS: predniSONE 2.5 MG TAB PO SCH (09:01)
[2021-04-06] MEDS: FOLIC ACID 1 MG TAB PO SCH (09:01)
[2021-04-06] MEDS: MULTIVITAMIN TAB PO SCH (09:02)
[2021-04-06] MEDS: ENOXAPARIN INJ 40 MG/0.4 ML SYR SQ SCH (09:02)
--- NOTE | 2021-04-06 11:42 | Pulmonology Progress Note ---
Date of Service April 06, 2021 Assessment & Plan (1) Pulmonary nodule: (2) SOB (shortness of breath): Plan: Impression: 56-year-old male with rheumatoid arthritis admitted with shortness of breath. He was recently treated for skin infection with MSSA according to the H&P. I do not have those records available to review. That history in combination with the radiographic findings would make septic emboli highly likely as these are subpleural nodules some of which demonstrate cavitation, a pattern consistent with hematogenous spread Pattern would be unusual for tuberculosis. Other etiologies including coccidiomycosis and cryptococcus would be in the differential as well. Malignancy is much less likely. Also possible that these nodules could represent rheumatoid nodules. Recommendations: 1. Serologies and QuantiFERON are currently pending. As per my previous note and after discussion with rheumatology, I think the possibility of tuberculosis is quite low however infection is possible. These lesions are not amenable to bronchoscopy and I think the yield would be quite low. Await his QuantiFERON and serological evaluation. If a definitive diagnosis is required, may consider discussion with radiology to see whether or not any of these lesions are approachable via CT-guided biopsy. Cavitary rheumatoid nodules would be on the differential as well. The nodules are not in a pattern that is typically consistent with a pulmonary vasculitis 2. Awaiting results of blood cultures. Given his immunosuppressed state, ID consultation may be appropriate 3. Echo reviewed. I suspect his shortness of breath may be somewhat related to his decreased ejection fraction and stage II diastolic dysfunction. Management per cardiology. Unclear if transesophageal echocardiogram is required, defer to primary service and cardiology We will continue to follow with you and await results of the patient serological evaluation. Feel free to contact us with additional questions or concerns. Admission and Anticipated Discharge Date Admission Date: April 04, 2021 Subjective Patient seen and examined. EMR reviewed. The patient states that he clinically feels about the same. He continues to cough but is not really expectorating any phlegm. No chest pain. No fevers chills or night sweats. He did complete a rheumatology evaluation with results noted in the electronic medical record. I did discuss the case with rheumatology and agree with her assessment and plan. Review of Systems Review of Systems: All systems reviewed & are unremarkable except as noted in Subjective Physical Exam Constitutional: WD/WN, vitals as above Neck: trachea midline, no thyromegaly Respiratory: normal respiratory effort, lungs clear to auscultation Cardiovascular: RRR, no murmur, no edema Gastrointestinal (Abdomen): normal bowel sounds, soft, nontender, no hepatosplenomegaly Musculoskeletal: Extremities: extremities normal to inspection Skin: no rashes, warm and dry Lymphatic: no cervical lymphadenopathy Results & Data Results & Data ([facility]) Vital Signs (Past 12 Hours) Vital Signs Temp Pulse Pulse Resp BP Pulse Ox 04/06/21 10:00 85 04/06/21 07:59 36.6 C 99 H 22 127/83 97 04/06/21 03:58 36.4 C L 82 20 127/91 97 04/06/21 00:12 105 H 04/05/21 23:46 36.7 C 104 H 24 129/81 98 Laboratory Results 04/05/21 05:46 04/05/21 05:46 Microbiology 04/05/21 09:00 Finger,Right Ring Gram Stain - Final 04/05/21 09:00 Finger,Right Ring Wound Culture - Preliminary Pin-point growth present, reincubating. 04/04/21 23:45 Blood Aerobic Blood Culture - Preliminary No growth in Aerobic bottle after 24 hours. 04/04/21 23:45 Blood Anaerobic Blood Culture - Preliminary No growth in Anaerobic bottle after 24 hours. 04/04/21 23:42 Blood Aerobic Blood Culture - Preliminary No growth in Aerobic bottle after 24 hours. 04/04/21 23:42 Blood Anaerobic Blood Culture - Preliminary No growth in Anaerobic bottle after 24 hours. Diagnostic Findings Echocardiogram 04/05/2021: EF of 40 to 45% with concentric LVH. Grade 2 diastolic dysfunction was noted with global hypokinesis of the left ventricle. Left atrium was dilated with mild mitral regurgitation. No comment on vegetations. Mitral leaflets were thickened. PG Care Time/CCT Total # of Minutes Spent Total Time Spent with Patient: Total time spent is greater than 50% in coordination of care (as documented) at patient's floor/unit and/or counseling patient: Coding Level of Care Code 15936 Subseq Hosp Care Lvl 3 Diagnoses Pulmonary nodule R91.1 SOB (shortness of breath) R06.02
--- NOTE | 2021-04-06 11:47 | Cardiology Consultation ---
Date of Consultation April 06, 2021 Assessment & Plan (1) Elevated troponin: (2) Abnormal echocardiogram: (3) Systolic heart failure: (4) SOB (shortness of breath): (5) Rheumatoid arthritis: (6) Chronic steroid use: (7) Cavitary lesion of lung: Add Aspirin 81 mg/day Change metoprolol tartrate to evidence based beta-tyrone, metoprolol succinate 25 mg twice a day Add low dose ARB, Losartan 12.5 mg/day in the PM, considering use of Entresto down the road. Add low dose loop diuretic, furosemide 20 mg/day, with supplement potassium chloride, 10 mEq/day ? need for transesophageal echocardiography Ischemic workup, ? stress testing versus diagnostic cardiac catheterization after the more pressing issues are sorted out Supervising Physician Co-Signing Physician Notes Patient seen and examined the bedside. Reports dyspnea on exertion dating back more than 1 month. Evaluated in the emergency department [facility] and diagnosed with a COPD exacerbation. Treated with corticosteroids and antibiotics without improvement. Continues to report orthopnea over the past 3 weeks. Denies weight gain, or edema. CT of the chest on admission demonstrates cavitary lung lesions concerning for infectious process versus rheumatoid nodules. A resting 2D transthoracic echocardiogram was performed revealing mild LV systolic dysfunction. No valvular pathology or evidence of vegetation. Afebrile since admission. No significant elevation of his white blood cell count, however, he is immunocompromised. Reports a hangnail of his left hand second digit which is slow to heal. PE: VSS. Afebrile. Gen: NAD, AAOx3. Heart: Regular, Normal S1S2. Lungs: Clear bilateral, no rales, rhonchi, wheeze. EXT: No edema, healing ulceration of his left hand second digit. A/P: Agree with above PA-C history, physical exam, assessment and plan. Patient will begin evidence-based therapy for mildly reduced ejection fraction including beta-tyrone, and ARB. Low-dose diuretic therapy to improve symptoms. Consider addition of Aldactone pending review of a.m. labs. In regard to the need for transesophageal echocardiogram, this may be considered as hospital course progresses. Thus far, blood cultures are negative, he is afebrile without leukocytosis on lab testing. Immunocompromised state, however, places patient at increased risk for infectious process. Await final culture results, serologies, Quantiferon to exclude tuberculosis. Consider infectious disease consultation. Further ischemic evaluation (inpatient versus outpatient) to be determined as hospital course progresses. History of Present Illness Reason for Consultation: CHF on TTE Requesting Physician: Mehran Attending Physician: Delgado History of Present Illness 56 year old male admitted to [facility] on 04/05/2021 due to worsening exertional dyspnea and intermittent orthopnea. Elevated troponin (0.082, 0.085, 0.097, 0.077 ng/mL) and an abnormal resting echocardiogram lead Dr. Laurent to order a routine cardiology consultation this (04/06/2021) morning. Resting echocardiography on 04/05/2021 revealed mildly reduced left ventricular systolic function with mild to moderate global hypokinesis. Ejection fraction 40-45%. Mild concentric left ventricular hypertrophy noted along with grade II diastolic dysfunction, mild mitral regurgitation, midly dilatation of the left atrium. EKG on presentation revealed sinus tachycardia at 110 bpm with occasional premature ventricular complexes, possible left atrial enlargement, poor R wave progression. Chest x-ray showed no abuse chest disease. CTA of the chest showed no evidence of pulmonary embolism but did reveal multiple peripheral predominant nodules, some with cavitation, measuring up to 2 cm. History notable for rheumatoid arthritis on leflunomide, chronic prednisone use, HCV status post treatment, chronic anemia, chronic tobacco abuse, osteoarthritis In January 2021 he had a right elbow cellulitis that was treated with Bactrim. He was recently seen in the [facility] ER and was diagnosed with a COPD exacerbation and was treated with a Z-benja and 40 mg of prednisone x 5 days. Over the last month he has experienced a nonproductive cough and dyspnea both with activity and when attempting to lay supine. He has very poor dentition, in need of multiple lower extractions. He has not used IV drugs since the . Blood cultures are without growth after 24 hours. He denies productive cough, hemoptysis, fevers, chills, night sweats, or unplanned/unexplained weight loss. The patient denies prior cardiac history. He specifically denies history of CAD, OR, CHF, rheumatic fever, scarlet fever, or heart murmur. He denies chest pain, palpitations, PND, dizziness, near syncope, or syncope. 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 He has cats and a dog in the home. Concern for possible septic emboli to the finger raised per documentation given history and radiographic findings Allergies Allergy/AdvReac Type Severity Reaction Status Date / Time No Known Allergies Allergy Unverified 04/04/21 19:07 Home Medications Medication Instructions Recorded Confirmed Type aspirin 81 mg tablet,delayed 81 mg PO DAILY 04/04/21 04/04/21 History release (Aspirin Low Dose) folic acid 1 mg tablet 1 mg PO DAILY 04/04/21 04/04/21 History hydrocodone 7.5 mg-acetaminophen 1 - 2 tab PO UD PRN 04/04/21 04/04/21 History 325 mg tablet hydroxychloroquine 200 mg tablet 200 mg PO DAILY 04/04/21 04/04/21 History leflunomide 20 mg tablet 20 mg PO DAILY 04/04/21 04/04/21 History multivitamin 1 tab PO DAILY 04/04/21 04/04/21 History omeprazole 40 mg capsule,delayed 40 mg PO DAILY 04/04/21 04/04/21 History release prednisone 10 mg tablet 10 mg PO UD 04/04/21 04/04/21 History Patient History Medical History Chronic steroid use Erectile dysfunction GERD (gastroesophageal reflux disease) Long-term use of high-risk medication Pre-diabetes Rheumatoid arthritis Tobacco use disorder Surgical History No pertinent past surgical history Family History Other Heart disease Social History Smoking Status: Current every day smoker Second Hand Exposure: Yes; Do You Dip or Chew Tobacco: No; Hx Alcohol Use: No Hx Substance Use: No Preferred Language: Upper Sorbian Communication Ability: Effective Purification Operator Required: No Beliefs That Will Affect Care: None Current Living Situation: Family Other Information That Helps Us Care for You: No Feels Safe at Home: Yes Safety Concerns: Feels Safe At This Time Assistive Devices: None Review of Systems Review of Systems: Complete Review of Systems: Constitutional: No change in weight. No fevers, soaking night sweats, or chills. HEENT: No amaurosis fugax. Pulmonary: See above. Cardiac: No prior cardiac history. GI/Abd: No dysphagia. Denies kidney issues. Vascular: No history of carotid disease, AAA, or claudication. Hematologic: Anemia. Musculoskeletal: See above. Skin: + Rash. Neurologic: No history of TIA or CVA. Male : ED. Endocrine: No thyroid issues. Complete Review of Systems is as stated above, negative, or noncontributory. Physical Exam Physical Exam: General: A&Ox3. NAD. HENT: Normocephalic. Atraumatic. Eyes: PER. Conjunctiva pink, sclera clear. Neck: No carotid bruits. No JVD. No HJR. Heart: RRR, 90 bpm. No murmur. No rub. Lungs: Diminished. Decreased. Clear. Abdomen: +BS. Soft. Nontender. No masses or organomegaly. Extremities: No clubbing, cyanosis, or edema. Limited neurological examination is without focal deficits. Pulses: radial=2/4, posterior tibial=2/4. Results & Data ([facility]) Vital Signs (Past 12 Hours) Vital Signs Temp Pulse Pulse Resp BP Pulse Ox 04/06/21 10:00 85 04/06/21 07:59 36.6 C 99 H 22 127/83 97 04/06/21 03:58 36.4 C L 82 20 127/91 97 04/06/21 00:12 105 H 04/05/21 23:46 36.7 C 104 H 24 129/81 98 Laboratory Results Laboratory Results - last 24 hr 04/05/21 04/05/21 04/05/21 11:47 11:47 11:47 Troponin I 0.077 H* Cryoglobulin Cryoglobulin Cryocrit Rheumatoid Factor Pending Cycl Citrul Peptide IgG Pending Anti-Proteinase 3 Anti-Myeloperoxidase ANCA Coccidioides Ab (CF) Pending Coccidioides Ab (ID) Pending Cryptococcus Source Pending Cryptococcal Ag (Latex) Pending TB Test (QFT) Gold Plus Pending TB Test (QFT) Nil Pending TB Test Mitogen - Nil Pending TB Test Ag - Nil 1 Pending TB Test Ag - Nil 2 Pending 04/06/21 06:59 Troponin I Cryoglobulin Pending Cryoglobulin Cryocrit Pending Rheumatoid Factor Cycl Citrul Peptide IgG Anti-Proteinase 3 Pending Anti-Myeloperoxidase Pending ANCA Pending Coccidioides Ab (CF) Coccidioides Ab (ID) Cryptococcus Source Cryptococcal Ag (Latex) TB Test (QFT) Gold Plus TB Test (QFT) Nil TB Test Mitogen - Nil TB Test Ag - Nil 1 TB Test Ag - Nil 2 Diagnostic Findings Telemetry: Sinus/sinus tachycardia in the 90 to 100 bpm range. Occasional PVC.
[2021-04-06 12:47] LABS: Appearance Urine Clear (Clear); Bilirubin Urine Negative (Negative); Blood Urine Negative (Negative); Color Urine Yellow; Glucose Urine UA Negative (Negative); Ketones Urine Negative (Negative); Leukocyte Esterase Urine Negative (Negative); Nitrite Urine Negative (Negative); Protein Urine Negative (Negative); Urobilinogen Urine Negative (Negative)
[2021-04-06] MEDS: FUROSEMIDE 20 MG TAB PO SCH (13:11)
[2021-04-06] MEDS: POTASSIUM CHLORIDE 10 MEQ TABCR PO SCH (13:11)
--- NOTE | 2021-04-06 16:17 | Hospitalist Progress Note ---
Date of Service April 06, 2021 Assessment & Plan (1) SOB (shortness of breath): Plan: Of 1 month duration Multiple etiologies including CHF and rheumatoid lung, doubt any pneumonia Multiple cavitary nodules on CT with broad differentials (vasculitis, rheumatoid nodule, septic emboli, tuberculosis,cavitating metastatic disease) Doubt any septic emboli given normal white count and no fever and no chills Appreciate pulmonary input and recommendation Awaiting results of specific test for tuberculosis and other infection Troponin elevation likely from tachycardia, and possible CHF Doubt ACS Appreciate cardiology input and recommendation Echo of the heart showed LV systolic function is mildly reduced, EF 40 to 45%, mild concentric LV hypertrophy, mild to moderate global hypokinesis of the left ventricle, diastolic dysfunction grade 2, left atrium is mildly dilated and mild mitral regurgitation Right finger infection, no sepsis for now Could be secondary to vasculitis and/or infarction Doubt any infection CS, Doxycycline for right finger infection Plain x-ray of the right hand May need MRI to definitely rule out osteomyelitis if plain x-ray negative. 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 hx HCV status post treatment Skin lesions and finger lesion could be secondary to vasculitis due to hepatitis C virus infection chronic anemia, hemoglobin better than baseline Steroid-induced hyperglycemia rule out DM ongoing tobacco abuse Hold IV heparin for now Trend troponin TTE DVT prophylaxis per Lovenox subcu Full code Patient requesting updates from providers. Ms. Hayley Morgan, contact #[phone]. Admission and Anticipated Discharge Date Admission Date: April 04, 2021 Subjective 04/06/2021 The patient was seen and examined in telemetry unit He still complains to have shortness of breath and chest tightness There is no cough and/or hemoptysis and no fever and or chills Review of Systems Review of Systems: All systems reviewed and are unremarkable except as noted below Respiratory: Shortness of breath at rest Cardiovascular: Additional Comments: Palpitation and/or chest pain Physical Exam Physical Exam: Lying in bed comfortably Constitutional: well developed, well nourished, + ill appearing and average b karina habitus Eyes: PERRL, conjunctivae normal, anicteric sclerae ENMT: external ear and nose normal, oropharynx normal Neck: trachea midline, no thyromegaly Respiratory: + cough; no respiratory distress Auscultation: + diminished lung sounds and + crackles (Minimal crackles at the bases) Cardiovascular: Rate/Rhythm: regular rate and regular rhythm; not tachycardic Heart Sounds: normal S1 and normal S2; no murmur Extremities: no edema Gastrointestinal (Abdomen): Inspection/Auscultation: normal bowel sounds; abdomen not distended Percussion/Palpation: abdomen soft; abdomen nontender Musculoskeletal: No acute arthritis in any joint Skin: + ecchymosis Neurologic: Alert, awake and oriented x3. No focal sensory and motor deficit appreciated Psychiatric: A+Ox3, euthymic affect Lymphatic: no cervical or axillary lymphadenopathy Results & Data Results & Data ([facility]) Vital Signs (Past 12 Hours) Vital Signs Temp Pulse Pulse Resp BP Pulse Ox 04/06/21 15:28 85 04/06/21 11:48 36.9 C 81 18 129/91 95 04/06/21 10:00 85 04/06/21 07:59 36.6 C 99 H 22 127/83 97 Laboratory Results Urine 04/06/21 Range/Units Unknown Urine Color Yellow Urine Appearance Clear (Clear) Urine pH 7.0 (4.5-7.5) Ur Specific [place] 1.020 (1.000-1.030) Urine Protein Negative (Negative) Urine Glucose (UA) Negative (Negative) Medications Administered Current Inpatient Medications Acetaminophen (Acetaminophen 325 Mg Tab) 650 mg PO Q4H PRN PRN Reason: Pain or Fever Stop: 05/05/21 23:53 Aspirin (Aspirin 81 Mg Ectab) 81 mg PO DAILY REPLACED BY [facility] Stop: 05/05/21 08:59 Last Admin: 04/06/21 09:01 Dose: 81 mg Documented by: Doxycycline Hyclate (Doxycycline Hyclate 100 Mg Cap) 100 mg PO BID MAIRA Stop: 04/12/21 08:59 Last Admin: 04/06/21 09:01 Dose: 100 mg Documented by: Enoxaparin Sodium (Enoxaparin Inj 40 Mg/0.4 Ml Syr) 40 mg SQ QAM MAIRA Stop: 05/05/21 08:59 Last Admin: 04/06/21 09:02 Dose: 40 mg Documented by: Folic Acid (Folic Acid 1 Mg Tab) 1 mg PO DAILY MAIRA Stop: 05/05/21 08:59 Last Admin: 04/06/21 09:01 Dose: 1 mg Documented by: Furosemide (Furosemide 20 Mg Tab) 20 mg PO QAM MAIAR Stop: 05/06/21 12:29 Last Admin: 04/06/21 13:11 Dose: 20 mg Documented by: Hydroxychloroquine Sulfate (Hydroxychloroquine Sulfate 200 Mg Tab) 200 mg PO DAILY MAIRA Stop: 05/05/21 08:59 Last Admin: 04/06/21 09:01 Dose: 200 mg Documented by: Promethazine HCl 12.5 mg/ (Sodium Chloride) 50.5 mls @ 202 mls/hr IV Q6H PRN PRN Reason: Nausea And Vomiting Stop: 05/05/21 01:43 Losartan Potassium (Losartan Potassium 25 Mg Tab) 12.5 mg PO QPM MAIRA Stop: 05/06/21 20:59 Metoprolol Succinate (Metoprolol Succ 25mg Ext Rel Tab) 25 mg PO BID MAIRA Stop: 05/06/21 20:59 Miscellaneous (Ppd Check) 1 ea N/A Q48H ONE Stop: 04/07/21 08:01 Morphine Sulfate (Morphine Sulfate 4 Mg/Ml 1 Ml Carp\Vial) 4 mg IV Q4H PRN PRN Reason: Pain Stop: 04/19/21 01:43 Multivitamins (Multivitamin Tab) 1 tab PO DAILY MAIRA Stop: 05/05/21 08:59 Last Admin: 04/06/21 09:02 Dose: 1 tab Documented by: Oxycodone HCl (Oxycodone Hcl Ir 5 Mg Tab (Immediate Release)) 5 - 10 mg PO QID PRN PRN Reason: Pain Stop: 04/19/21 01:43 Pantoprazole Sodium (Pantoprazole 40 Mg Tab) 40 mg PO DAILY MAIRA Stop: 05/05/21 08:59 Last Admin: 04/06/21 09:01 Dose: 40 mg Documented by: Potassium Chloride (Potassium Chloride 10 Meq Tabcr) 10 meq PO DAILY MAIRA Stop: 05/06/21 12:29 Last Admin: 04/06/21 13:11 Dose: 10 meq Documented by: Prednisone (Prednisone 2.5 Mg Tab) 7.5 mg PO DAILY MAIRA Stop: 05/06/21 08:59 Last Admin: 04/06/21 09:01 Dose: 7.5 mg Documented by:
[2021-04-06] MEDS: LOSARTAN POTASSIUM 25 MG TAB PO SCH (19:40)
[2021-04-06] MEDS: METOPROLOL SUCC 25MG EXT REL TAB PO SCH (19:41)
[2021-04-07] MEDS: FUROSEMIDE 20 MG TAB PO SCH (07:46)
[2021-04-07] MEDS: MULTIVITAMIN TAB PO SCH (07:47)
[2021-04-07] MEDS: POTASSIUM CHLORIDE 10 MEQ TABCR PO SCH (07:47)
[2021-04-07] MEDS: HYDROXYCHLOROQUINE SULFATE 200 MG TAB PO SCH (07:47)
[2021-04-07] MEDS: ASPIRIN 81 MG ECTAB PO SCH (07:47)
[2021-04-07] MEDS: FOLIC ACID 1 MG TAB PO SCH (07:47)
[2021-04-07] MEDS: DOXYCYCLINE HYCLATE 100 MG CAP PO SCH ×2 (07:47→20:59)
[2021-04-07] MEDS: predniSONE 2.5 MG TAB PO SCH (07:47)
[2021-04-07] MEDS: METOPROLOL SUCC 25MG EXT REL TAB PO SCH ×2 (07:48→20:59)
[2021-04-07] MEDS: PANTOprazole 40 MG TAB PO SCH (07:48)
[2021-04-07] MEDS: ENOXAPARIN INJ 40 MG/0.4 ML SYR SQ SCH (07:48)
[2021-04-07] MEDS ORDERED: PPD CHECK ONE (08:00)
--- NOTE | 2021-04-07 10:56 | Cardiology Progress Note ---
Date of Service April 07, 2021 Assessment & Plan (1) Elevated troponin: (2) Abnormal echocardiogram: (3) Systolic heart failure: (4) SOB (shortness of breath): (5) Rheumatoid arthritis: (6) Chronic steroid use: (7) Cavitary lesion of lung: Plan: Continue evidence based beta-tyrone, ARB, aspirin, and loop diuretic therapy with supplemental potassium chloride. Await pending tests results prior to considering transesophageal echocardiography and then an ischemic workup Metabolic panel requested. Admission and Anticipated Discharge Date Admission Date: April 04, 2021 Supervising Physician Co-Signing Physician Notes Patient seen and examined the bedside. Orthopnea mildly improved with addition of diuretic therapy. Denies paroxysmal nocturnal dyspnea. No edema. Denies fever or chills overnight. Offers no new concerns/complaints. PE: VSS. Afebrile. Gen: NAD, AAOx3. Heart: Regular, Normal S1S2. Lungs: Clear bilateral, no rales, rhonchi, wheeze. EXT: No edema, healing ulceration of his left hand second digit. A/P: Agree with above PA-C history, physical exam, assessment and plan. Increas e Lasix to 40 mg daily. Repeat basic metabolic panel in a.m. Continue beta- tyrone and ARB. TB test, QuantiFERON, negative. Cryptococcal, Coccidioides serologies pending. Cryoglobulins, rheumatoid factor, and ANCA panel pending. If pulmonary cavitary nodules are not accessible via bronchoscopy, consider referral to interventional radiology for CT-guided biopsy. I will send SPEP, ferritin, iron, and ceruloplasmin for further evaluation of cardiomyopathy. Subjective Patient seen and examined. Chart, medications, and telemetry reviewed. Telemetry: Sinus in the 80's with multifocal PVC's Feeling the same. + Cough. Ongoing dyspnea. ? orthopnea/PND. 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 No chest pain, palpitations, abdominal bloating, penile/scrotal edema, or lower extremity peripheral edema. Review of Systems Review of Systems: Complete Review of Systems: Constitutional: No change in weight. No fevers, soaking night sweats, or chills. HEENT: No amaurosis fugax. Pulmonary: See above. Cardiac: No prior cardiac history. GI/Abd: No dysphagia. Denies kidney issues. Vascular: No history of carotid disease, AAA, or claudication. Hematologic: Anemia. Musculoskeletal: See above. Skin: + Rash. Neurologic: No history of TIA or CVA. Male : ED. Endocrine: No thyroid issues. Complete Review of Systems is as stated above, negative, or noncontributory. Physical Exam Physical Exam: General: A&Ox3. NAD. HENT: Normocephalic. Atraumatic. Eyes: PER. Conjunctiva pink, sclera clear. Neck: No carotid bruits. No JVD. No HJR. Heart: RRR, 90 bpm. No murmur. No rub. Lungs: Diminished. Decreased. Clear. Abdomen: +BS. Soft. Nontender. No masses or organomegaly. Extremities: No clubbing, cyanosis, or edema. Limited neurological examination is without focal deficits. Pulses: radial=2/4, posterior tibial=2/4. Results & Data ([facility]) Vital Signs (Past 12 Hours) Vital Signs Temp Pulse Pulse Resp BP Pulse Ox 04/07/21 08:04 36.8 C 78 18 132/77 97 04/07/21 08:00 86 04/07/21 03:17 36.5 C 84 18 112/77 97 Laboratory Results Laboratory Results - last 24 hr 04/06/21 Unknown Urine Color Yellow Urine Appearance Clear Urine pH 7.0 Ur Specific [place] 1.020 Urine Protein Negative Urine Glucose (UA) Negative Urine Ketones Negative Urine Blood Negative Urine Nitrite Negative Urine Bilirubin Negative Urine Urobilinogen Negative Ur Leukocyte Esterase Negative
[2021-04-07 11:43] LABS: Quantiferon Mitogen-NIL >10.00 IU/mL; Quantiferon NIL 0.05 IU/mL; Quantiferon TB Gold Plus NEGATIVE (NEGATIVE)
[2021-04-07 12:02] LABS: BUN Creatinine Ratio 22.2 (10-20); Calcium 9.8 mg/dl (8.5-10.1); Creatinine Clr Calc Pharmacy 106.5 ml/min; Est GFR (African American) 115.5 ml/min; Est GFR (Non-African American) 99.7 ml/min; Potassium 4.7 mmol/L (3.5-5.1)
[2021-04-07] MEDS ORDERED: FUROSEMIDE 40 MG TAB PO ONE (12:55)
--- NOTE | 2021-04-07 17:10 | Pulmonology Progress Note ---
Date of Service April 07, 2021 Assessment & Plan (1) Pulmonary nodule: (2) SOB (shortness of breath): Plan: Impression: 56-year-old male with rheumatoid arthritis admitted with shortness of breath. He was recently treated for skin infection with MSSA according to the H&P. I do not have those records available to review. That history in combination with the radiographic findings would make septic emboli highly likely as these are subpleural nodules some of which demonstrate cavitation, a pattern consistent with hematogenous spread Pattern would be unusual for tuberculosis. Other etiologies including coccidiomycosis and cryptococcus would be in the differential as well. Malignancy is much less likely. Also possible that these nodules could represent rheumatoid nodules. Recommendations: 1. Serologies still pending but QuantiFERON is negative. I think the patient can be removed from isolation. These lesions are not amenable to bronchoscopy and I think the yield would be quite low. Recommend reviewing with radiology to see whether or not any of these lesions are approachable via CT-guided biopsy. Cavitary rheumatoid nodules would be on the differential as well. The nodules are not in a pattern that is typically consistent with a pulmonary vasculitis 2. Blood cultures negative to date. Given his immunosuppressed state, ID consultation recommended and is deferred to the patient's primary service 3. Echo reviewed. Will defer to infectious disease as to whether or not DIEGO is required 4. Dyspnea: The patient should have outpatient pulmonary function testing performed. Admission and Anticipated Discharge Date Admission Date: April 04, 2021 Subjective No significant change in patient's status overnight. He offers no new complaints. Review of Systems Review of Systems: All systems reviewed & are unremarkable except as noted in Subjective Physical Exam Constitutional: WD/WN, vitals as above Neck: trachea midline, no thyromegaly Respiratory: normal respiratory effort, lungs clear to auscultation Cardiovascular: RRR, no murmur, no edema Gastrointestinal (Abdomen): normal bowel sounds, soft, nontender, no hepatosplenomegaly Musculoskeletal: Extremities: extremities normal to inspection Skin: no rashes, warm and dry Lymphatic: no cervical lymphadenopathy Results & Data Results & Data ([facility]) Vital Signs (Past 12 Hours) Vital Signs Temp Pulse Pulse Resp BP Pulse Ox 04/07/21 11:00 36.5 C 83 18 121/63 98 04/07/21 08:04 36.8 C 78 18 132/77 97 04/07/21 08:00 86 Laboratory Results QuantiFERON negative 04/05/21 05:46 04/07/21 11:10 Diagnostic Findings No new imaging PG Care Time/CCT Total # of Minutes Spent Total Time Spent with Patient: Total time spent is greater than 50% in coordination of care (as documented) at patient's floor/unit and/or counseling patient: Coding Level of Care Code 26288 Subseq Hosp Care Lvl 2 Diagnoses Pulmonary nodule R91.1 SOB (shortness of breath) R06.02
--- NOTE | 2021-04-07 17:35 | Hospitalist Progress Note ---
Date of Service April 07, 2021 Assessment & Plan (1) SOB (shortness of breath): Plan: Present on admission with SOB and cough Multiple etiologies including CHF and rheumatoid lung, doubt any pneumonia CT chest showed multiple peripheral predominant nodules, some with cavitation, measuring up to 2 cm. Pulm on board-appreciate input and recommendation QuantiFERON assay-negative for tuberculosis, Cocci, crypto are pending Airborne precautions can be taken off Shortness of breath seems to be clinically better Will increase Lasix Multiple peripheral pulmonary nodules with cavitation, measuring up to 2 cm Appreciate pulmonary input and recommendation Infective source has been considered but no signs and or symptoms of infection have been found and the cultures have been negative Question of IR guided biopsy needs to be discussed with the patient and the radiologist as per pulmonary recommendation QuantiFERON TB test has been negative Fungal antigens are pending Elevated troponin possible related to SOB /CHF/tachycardia Troponin peak to 0,.09, then trending down to 0.077 EKG showed no acute ischemic changes Echo showed showed LV systolic function is mildly reduced, EF 40 to 45%, mild concentric LV hypertrophy, mild to moderate global hypokinesis of the left ventricle, diastolic dysfunction grade 2, left atrium is mildly dilated and mild mitral regurgitation Will consult cardiology Continue metoprolol and aspirin Continue monitor in tele Right finger infection Could be secondary to vasculitis and/or infarction Hand xray showed no acute osseous pathology. Osteoarthritis. He was starting on Doxycycline for right finger infection History of hepatitis C could cause vasculitis Rheumatoid arthritis Continue leflunomide Continue prednisone Immunocompromised patient Hold patient's Arava until TB ruled out and patient seen by rheumatology. Rheumatology consulted-appreciate input and recommendation chronic anemia hemoglobin stable Hyperglycemia Mostly due to steroid induced hyperglycemia Most recent Hba1c 6.3 Continue monitor BS Tobacco abuse Counseling on smoking cessation DVT prophylaxis per Lovenox subcu Full code Patient requesting updates from providers. Katty Hayley Morgan, contact #[phone]. Admission and Anticipated Discharge Date Admission Date: April 04, 2021 Subjective 04/06/2021 The patient was seen and examined in telemetry unit He still complains to have shortness of breath and chest tightness There is no cough and/or hemoptysis and no fever and or chills 04/07/2021 The patient was seen and examined in the telemetry unit His shortness of breath is little better today Significant reduction of the cough Denies any chest pain or palpitation and no fever and no chills Review of Systems Review of Systems: All systems reviewed and are unremarkable except as noted below Respiratory: Shortness of breath at rest Cardiovascular: Additional Comments: Palpitation and/or chest pain Physical Exam 2 Physical Exam: Lying in bed comfortably Constitutional: well developed, well nourished, + ill appearing and average body habitus Eyes: PERRL, conjunctivae normal, anicteric sclerae ENMT: external ear and nose normal, oropharynx normal Neck: trachea midline, no thyromegaly Respiratory: + cough; no respiratory distress Auscultation: + diminished lung sounds and + crackles (Minimal crackles at the bases) Cardiovascular: Rate/Rhythm: regular rate and regular rhythm; not tachycardic Heart Sounds: normal S1 and normal S2; no murmur Extremities: no edema Gastrointestinal (Abdomen): Inspection/Auscultation: normal bowel sounds; abdomen not distended Percussion/Palpation: abdomen soft; abdomen nontender Skin: + ecchymosis Psychiatric: A+Ox3, euthymic affect Lymphatic: no cervical or axillary lymphadenopathy Results & Data Results & Data ([facility]) Vital Signs (Past 12 Hours) Vital Signs Temp Pulse Pulse Resp BP Pulse Ox 04/07/21 11:00 36.5 C 83 18 121/63 98 04/07/21 08:04 36.8 C 78 18 132/77 97 04/07/21 08:00 86 Laboratory Results [facility] 04/07/21 11:10 Sodium 136 Potassium 4.7 Chloride 107 Carbon Dioxide 25 BUN 18 Creatinine 0.79 Glucose 119 H Calcium 9.8 Medications Administered Current Inpatient Medications Acetaminophen (Acetaminophen 325 Mg Tab) 650 mg PO Q4H PRN PRN Reason: Pain or Fever Stop: 05/05/21 23:53 Aspirin (Aspirin 81 Mg Ectab) 81 mg PO DAILY [facility] Stop: 05/05/21 08:59 Last Admin: 04/07/21 07:47 Dose: 81 mg Documented by: Doxycycline Hyclate (Doxycycline Hyclate 100 Mg Cap) 100 mg PO BID [facility] Stop: 04/12/21 08:59 Last Admin: 04/07/21 07:47 Dose: 100 mg Documented by: Enoxaparin Sodium (Enoxaparin Inj 40 Mg/0.4 Ml Syr) 40 mg SQ QAM [facility] Stop: 05/05/21 08:59 Last Admin: 04/07/21 07:48 Dose: 40 mg Documented by: Folic Acid (Folic Acid 1 Mg Tab) 1 mg PO DAILY [facility] Stop: 05/05/21 08:59 Last Admin: 04/07/21 07:47 Dose: 1 mg Documented by: Furosemide (Furosemide 40 Mg Tab) 40 mg PO QAM [facility] Stop: 05/08/21 08:59 Hydroxychloroquine Sulfate (Hydroxychloroquine Sulfate 200 Mg Tab) 200 mg PO DAILY [facility] Stop: 05/05/21 08:59 Last Admin: 04/07/21 07:47 Dose: 200 mg Documented by: Promethazine HCl 12.5 mg/ (Sodium Chloride) 50.5 mls @ 202 mls/hr IV Q6H PRN PRN Reason: Nausea And Vomiting Stop: 05/05/21 01:43 Losartan Potassium (Losartan Potassium 25 Mg Tab) 12.5 mg PO QPM [facility] Stop: 05/06/21 20:59 Last Admin: 04/06/21 19:40 Dose: 12.5 mg Documented by: Metoprolol Succinate (Metoprolol Succ 25mg Ext Rel Tab) 25 mg PO BID [facility] Stop: 05/06/21 20:59 Last Admin: 04/07/21 07:48 Dose: 25 mg Documented by: Morphine Sulfate (Morphine Sulfate 4 Mg/Ml 1 Ml Carp\Vial) 4 mg IV Q4H PRN PRN Reason: Pain Stop: 04/19/21 01:43 Multivitamins (Multivitamin Tab) 1 tab PO DAILY [facility] Stop: 05/05/21 08:59 Last Admin: 04/07/21 07:47 Dose: 1 tab Documented by: Oxycodone HCl (Oxycodone Hcl Ir 5 Mg Tab (Immediate Release)) 5 - 10 mg PO QID PRN PRN Reason: Pain Stop: 04/19/21 01:43 Pantoprazole Sodium (Pantoprazole 40 Mg Tab) 40 mg PO DAILY [facility] Stop: 05/05/21 08:59 Last Admin: 04/07/21 07:48 Dose: 40 mg Documented by: Potassium Chloride (Potassium Chloride 10 Meq Tabcr) 10 meq PO DAILY [facility] Stop: 05/06/21 12:29 Last Admin: 04/07/21 07:47 Dose: 10 meq Documented by: Prednisone (Prednisone 2.5 Mg Tab) 7.5 mg PO DAILY [facility] Stop: 05/06/21 08:59 Last Admin: 04/07/21 07:47 Dose: 7.5 mg Documented by:
[2021-04-07] MEDS: LOSARTAN POTASSIUM 25 MG TAB PO SCH (20:59)
[2021-04-08 08:00] LABS: Ferritin 213.3 ng/ml (8-388)
[2021-04-08] MEDS: ASPIRIN 81 MG ECTAB PO SCH (08:28)
[2021-04-08] MEDS: FOLIC ACID 1 MG TAB PO SCH (08:28)
[2021-04-08] MEDS: predniSONE 2.5 MG TAB PO SCH (08:28)
[2021-04-08] MEDS: POTASSIUM CHLORIDE 10 MEQ TABCR PO SCH (08:28)
[2021-04-08] MEDS: PANTOprazole 40 MG TAB PO SCH (08:29)
[2021-04-08] MEDS: MULTIVITAMIN TAB PO SCH (08:29)
[2021-04-08] MEDS: HYDROXYCHLOROQUINE SULFATE 200 MG TAB PO SCH (08:29)
[2021-04-08] MEDS: ENOXAPARIN INJ 40 MG/0.4 ML SYR SQ SCH (08:31)
[2021-04-08] MEDS: DOXYCYCLINE HYCLATE 100 MG CAP PO SCH (08:31)
[2021-04-08] MEDS: METOPROLOL SUCC 25MG EXT REL TAB PO SCH (08:32)
[2021-04-08 08:50] LABS: BUN Creatinine Ratio 25.3 (10-20); Calcium 9.6 mg/dl (8.5-10.1); Creatinine Clr Calc Pharmacy 97.9 ml/min; Est GFR (African American) 111.6 ml/min; Est GFR (Non-African American) 96.3 ml/min; Potassium 3.4 mmol/L (3.5-5.1)
[2021-04-08] MEDS ORDERED: FUROSEMIDE 40 MG TAB PO SCH (09:00)
--- NOTE | 2021-04-08 09:07 | Pulmonology Progress Note ---
Date of Service April 08, 2021 Assessment & Plan (1) Pulmonary nodule: (2) SOB (shortness of breath): Plan: Impression: 56-year-old male with rheumatoid arthritis admitted with shortness of breath and subpleural pulmonary nodules some of which are cavitary. Osei tified on negative. Cultures negative to date. His shortness of breath has improved somewhat. Recommendations: 1. Serologies still pending but QuantiFERON is negative. I think the patient can be removed from isolation. These lesions are not amenable to bronchoscopy and I think the yield would be quite low. Options at this point time would be to pursue a CT-guided biopsy of one of the lesions versus clinical observation. At this point time I think serial surveillance is appropriate given his lack of clinical symptoms. Would recommend follow-up CT scan in 8 to 10 weeks with clinical follow-up at that time. If the nodules persist or grow, consideration for biopsy may be appropriate at that time. 2. Blood cultures negative to date. 3. Dyspnea: The patient should have outpatient pulmonary function testing performed. Shortness of breath is better. The patient's work-up at this point time is largely an outpatient work-up. From a pulmonary perspective, he can be dismissed from the hospital and follow-up in the outpatient pulmonary clinic. Again he will need follow-up CT scan in 8 to 10 weeks with PFTs, sooner should he develop progressive clinical symptoms. The above recommendations and plan were discussed with the patient at bedside. Pulmonary will sign off at this point time. Feel free to contact us if we can be of additional assistance Admission and Anticipated Discharge Date Admission Date: April 04, 2021 Subjective Patient seen and examined. EMR reviewed. He states he is feeling better. He remains off oxygen. His shortness of breath is slightly better. He is not coughing or expectorating significant phlegm. He denies any wheezing. No chest pain palpitations or significant lower extremity edema. Review of Systems Review of Systems: All systems reviewed & are unremarkable except as noted in Subjective Physical Exam Constitutional: WD/WN, vitals as above Neck: trachea midline, no thyromegaly Respiratory: normal respiratory effort, lungs clear to auscultation Cardiovascular: RRR, no murmur, no edema Gastrointestinal (Abdomen): normal bowel sounds, soft, nontender, no hepatosplenomegaly Musculoskeletal: Extremities: extremities normal to inspection Skin: no rashes, warm and dry Lymphatic: no cervical lymphadenopathy Results & Data Results & Data ([facility]) Vital Signs (Past 12 Hours) Vital Signs Temp Pulse Resp BP BP Pulse Ox Pulse Ox 04/08/21 06:16 36.7 C 78 18 102/72 97 04/07/21 23:49 36.4 C L 83 20 111/77 97 04/07/21 23:00 93 Laboratory Results 04/05/21 05:46 04/08/21 06:41 Serologies are still pending Diagnostic Findings No new imaging PG Care Time/CCT Total # of Minutes Spent Total Time Spent with Patient: Total time spent is greater than 50% in coordination of care (as documented) at patient's floor/unit and/or counseling patient: Coding Level of Care Code 12264 Subseq Hosp Care Lvl 2 Diagnoses Pulmonary nodule R91.1 SOB (shortness of breath) R06.02
--- NOTE | 2021-04-08 11:03 | Cardiology Progress Note ---
Date of Service April 08, 2021 Assessment & Plan (1) Elevated troponin: (2) Abnormal echocardiogram: (3) Systolic heart failure: (4) SOB (shortness of breath): (5) Rheumatoid arthritis: (6) Chronic steroid use: (7) Cavitary lesion of lung: Plan: Referral for transesophageal echocardiography is not felt to be needed/indicated. Additional potassium supplementation today noting mild hypokalemia on AM labs. Possible need for pulmonary biopsy noted. Patient is unwilling to stay for diagnostic cardiac catheterization this afternoon. Will arrange for close outpatient cardiology follow-up, reconsidering referral for Lexiscan nuclear stress testing versus future diagnostic cardiac catheterization Continue evidence based beta-tyrone, ARB, aspirin, and low dose loop diuretic therapy with supplemental potassium chloride as ordered. Titrate medications as tolerated, as an outpatient Admission and Anticipated Discharge Date Admission Date: April 04, 2021 Supervising Physician Co-Signing Physician Notes Patient seen and examined the bedside. Orthopnea improved with titration of Lasix to 40 mg. Denies paroxysmal nocturnal dyspnea. No edema. Denies fever or chills overnight. Offers no new concerns/complaints. PE: VSS. Afebrile. Gen: NAD, AAOx3. Heart: Regular, Normal S1S2. Lungs: Clear bilateral, no rales, rhonchi, wheeze. EXT: No edema, healing ulceration of his left hand second digit. A/P: Agree with above PA-C history, physical exam, assessment and plan. Continue Lasix 40 mg daily in addition to losartan and metoprolol. TB test, QuantiFERON, negative. Cryptococcal, Coccidioides serologies pending. Cryoglobulins, rheumatoid factor, and ANCA panel pending. If pulmonary cavitary nodules are not accessible via bronchoscopy, consider referral to interventional radiology for CT-guided biopsy. SPEP, ferritin, iron, and ceruloplasmin ordered for further evaluation of cardiomyopathy. Further ischemic evaluation is warranted. We discussed potential coronary angiography today, however, patient prefers discharge with outpatient follow-up. We will arrange outpatient cardiology follow-up to discuss Lexiscan nuclear stress testing versus cardiac catheterization in the near future. Continue medications as outlined above. Subjective Patient seen and examined. Chart, medications, and telemetry reviewed. Ate breakfast at 8 AM. Laying flat without difficulty. Notes improvement in breathing. Denies chest pain, palpitations, orthopnea, PND, peripheral edema, dizziness, near syncope, syncope, fevers, chills, melena, hematochezia, or hematuria. Telemetry: Sinus predominately in the 80's, occasionally 90's, with PVC's Review of Systems Review of Systems: Complete Review of Systems is as stated above, negative, or noncontributory. Physical Exam Physical Exam: General: A&Ox3. NAD. HENT: Normocephalic. Atraumatic. Eyes: PER. Conjunctiva pink, sclera clear. Neck: No carotid bruits. No JVD. No HJR. Heart: RRR, 80 bpm. No murmur. No rub. Lungs: Diminished. Decreased. Clear. Abdomen: +BS. Soft. Nontender. No masses or organomegaly. Extremities: No clubbing, cyanosis, or edema. Limited neurological examination is without focal deficits. Pulses: radial=2/4, posterior tibial=2/4. Results & Data ([facility]) Vital Signs (Past 12 Hours) Vital Signs Temp Pulse Resp BP BP Pulse Ox 04/08/21 06:16 36.7 C 78 18 102/72 97 04/07/21 23:49 36.4 C L 83 20 111/77 97 Laboratory Results Laboratory Results - last 24 hr 04/05/21 04/07/21 04/08/21 11:47 11:10 06:37 Sodium 136 Potassium 4.7 Chloride 107 Carbon Dioxide 25 Anion Gap 4.0 BUN 18 Creatinine 0.79 Est Cr Clr Drug Dosing 106.5 Est GFR ( Amer) 115.5 Est GFR (Non-Af Amer) 99.7 BUN/Creatinine Ratio 22.2 H Glucose 119 H Calcium 9.8 Magnesium 2.0 Iron 98 Ferritin 213.3 Total Protein (PEP) Albumin (PEP) Lslnw-7-Fyexpzvfx Cjxjt-5-Ktdrhxvat Khdo-6-Fmbgamet Yvni-1-Rqqqlxri Gamma Globulins Monoclonal Peak 3 Ser Monoclonl Protein Ser Monoclonal Prot 2 PEP Interpretation Ceruloplasmin Specimen Hemolysis TB Test (QFT) Gold Plus NEGATIVE TB Test (QFT) Nil 0.05 TB Test Mitogen - Nil >10.00 TB Test Ag - Nil 1 0.00 TB Test Ag - Nil 2 0.00 04/08/21 04/08/21 06:37 06:41 Sodium 137 Potassium 3.4 L D Chloride 105 Carbon Dioxide 22 Anion Gap 10.0 BUN 22 H Creatinine 0.86 Est Cr Clr Drug Dosing 97.9 Est GFR ( Amer) 111.6 Est GFR (Non-Af Amer) 96.3 BUN/Creatinine Ratio 25.3 H Glucose 139 H Calcium 9.6 Magnesium Iron Ferritin Total Protein (PEP) Pending Albumin (PEP) Pending Cxwag-1-Vwbrxskwt Pending Bnwdr-2-Diejomexn Pending Uehz-3-Mmilymua Pending Bvdy-9-Sfyhlwqi Pending Gamma Globulins Pending Monoclonal Peak 3 Pending Ser Monoclonl Protein Pending Ser Monoclonal Prot 2 Pending PEP Interpretation Pending Ceruloplasmin Pending Specimen Hemolysis TB Test (QFT) Gold Plus TB Test (QFT) Nil TB Test Mitogen - Nil TB Test Ag - Nil 1 TB Test Ag - Nil 2
[2021-04-08] MEDS ORDERED: POTASSIUM CHLORIDE CRTAB 20 MEQ TABCR PO ONE (11:09)
--- NOTE | 2021-04-08 12:51 | Hospitalist Progress Note ---
Date of Service April 08, 2021 Assessment & Plan (1) SOB (shortness of breath): Plan: Present on admission with SOB and cough Multiple etiologies including CHF and rheumatoid lung, doubt any pneumonia CT chest showed multiple peripheral predominant nodules, some with cavitation, measuring up to 2 cm. Pulm on board-appreciate input and recommendation QuantiFERON assay-negative for tuberculosis, Cocci, crypto are pending Airborne precautions can be taken off Shortness of breath seems to be clinically better Clinically much better and will have a 2 step O2 saturation test before discharge this afternoon Multiple peripheral pulmonary nodules with cavitation, measuring up to 2 cm Appreciate pulmonary input and recommendation Infective source has been considered but no signs and or symptoms of infection have been found and the cultures have been negative Question of IR guided biopsy needs to be discussed with the patient and the radiologist as per pulmonary recommendation QuantiFERON TB test has been negative Fungal antigens are pending Discussed with IR radiologist in [place] and also in [place] We will schedule for an outpatient CT-guided lung biopsy in [place] shortly Elevated troponin possible related to SOB /CHF/tachycardia Troponin peak to 0,.09, then trending down to 0.077 EKG showed no acute ischemic changes Echo showed showed LV systolic function is mildly reduced, EF 40 to 45%, mild concentric LV hypertrophy, mild to moderate global hypokinesis of the left ventricle, diastolic dysfunction grade 2, left atrium is mildly dilated and mild mitral regurgitation Will consult cardiology Continue metoprolol and aspirin Will be followed up by health safety specialist as an outpatient for possible cath after the biopsy Right finger infection Could be secondary to vasculitis and/or infarction Hand xray showed no acute osseous pathology. Osteoarthritis. He was starting on Doxycycline for right finger infection History of hepatitis C could cause vasculitis Rheumatoid arthritis Continue leflunomide Continue prednisone Immunocompromised patient Hold patient's Arava until TB ruled out and patient seen by rheumatology. Rheumatology consulted-appreciate input and recommendation Discussed with the chairman ceo for a possible repeat CT scan in 6 to 8 weeks which will be done if the biopsy is not completed by this time chronic anemia hemoglobin stable Hyperglycemia Mostly due to steroid induced hyperglycemia Most recent Hba1c 6.3 Continue monitor BS Tobacco abuse Counseling on smoking cessation DVT prophylaxis per Lovenox subcu Full code Patient requesting updates from providers. Ms. Hayley Morgan, contact #[phone]. Admission and Anticipated Discharge Date Admission Date: April 04, 2021 Subjective 04/06/2021 The patient was seen and examined in telemetry unit He still complains to have shortness of breath and chest tightness There is no cough and/or hemoptysis and no fever and or chills 04/07/2021 The patient was seen and examined in the telemetry unit His shortness of breath is little better today Significant reduction of the cough Denies any chest pain or palpitation and no fever and no chills 04/08/2021 The patient was seen and examined in telemetry unit He has been less short of breath today and denies any cough Denies any chest pain and/or palpitation She wants to go home this afternoon Review of Systems Review of Systems: All systems reviewed and are unremarkable except as noted below Respiratory: Shortness of breath at rest Cardiovascular: Additional Comments: Palpitation and/or chest pain Physical Exam Physical Exam: Lying in bed comfortably Constitutional: well developed, well nourished, + ill appearing and average body habitus Eyes: PERRL, conjunctivae normal, anicteric sclerae ENMT: external ear and nose normal, oropharynx normal Neck: trachea midline, no thyromegaly Respiratory: + cough; no respiratory distress Auscultation: + diminished lung sounds; no crackles and no wheezes Cardiovascular: Rate/Rhythm: regular rate and regular rhythm; not tachycardic Heart Sounds: normal S1 and normal S2; no murmur Extremities: no edema Gastrointestinal (Abdomen): Inspection/Auscultation: normal bowel sounds; abdomen not distended Percussion/Palpation: abdomen soft; abdomen nontender Skin: + ecchymosis Psychiatric: A+Ox3, euthymic affect Lymphatic: no cervical or axillary lymphadenopathy Results & Data Results & Data ([facility]) Vital Signs (Past 12 Hours) Vital Signs Temp Pulse Resp BP Pulse Ox 04/08/21 11:57 36.6 C 81 16 109/72 93 04/08/21 06:16 36.7 C 78 18 102/72 97 Laboratory Results [facility] 04/08/21 06:41 Sodium 137 Potassium 3.4 L D Chloride 105 Carbon Dioxide 22 BUN 22 H Creatinine 0.86 Glucose 139 H Calcium 9.6 Medications Administered Current Inpatient Medications Acetaminophen (Acetaminophen 325 Mg Tab) 650 mg PO Q4H PRN PRN Reason: Pain or Fever Stop: 05/05/21 23:53 Last Admin: 04/07/21 20:57 Dose: 650 mg Documented by: Aspirin (Aspirin 81 Mg Ectab) 81 mg PO DAILY [facility] Stop: 05/05/21 08:59 Last Admin: 04/08/21 08:28 Dose: 81 mg Documented by: Doxycycline Hyclate (Doxycycline Hyclate 100 Mg Cap) 100 mg PO BID [facility] Stop: 04/12/21 08:59 Last Admin: 04/08/21 08:31 Dose: 100 mg Documented by: Enoxaparin Sodium (Enoxaparin Inj 40 Mg/0.4 Ml Syr) 40 mg SQ QAM [facility] Stop: 05/05/21 08:59 Last Admin: 04/08/21 08:31 Dose: 40 mg Documented by: Folic Acid (Folic Acid 1 Mg Tab) 1 mg PO DAILY [facility] Stop: 05/05/21 08:59 Last Admin: 04/08/21 08:28 Dose: 1 mg Documented by: Furosemide (Furosemide 20 Mg Tab) 20 mg PO QAM [facility] Stop: 05/09/21 08:59 Hydroxychloroquine Sulfate (Hydroxychloroquine Sulfate 200 Mg Tab) 200 mg PO DAILY [facility] Stop: 05/05/21 08:59 Last Admin: 04/08/21 08:29 Dose: 200 mg Documented by: Promethazine HCl 12.5 mg/ (Sodium Chloride) 50.5 mls @ 202 mls/hr IV Q6H PRN PRN Reason: Nausea And Vomiting Stop: 05/05/21 01:43 Losartan Potassium (Losartan Potassium 25 Mg Tab) 12.5 mg PO QPM [facility] Stop: 05/06/21 20:59 Last Admin: 04/07/21 20:59 Dose: 12.5 mg Documented by: Metoprolol Succinate (Metoprolol Succ 25mg Ext Rel Tab) 25 mg PO BID [facility] Stop: 05/06/21 20:59 Last Admin: 04/08/21 08:32 Dose: 25 mg Documented by: Morphine Sulfate (Morphine Sulfate 4 Mg/Ml 1 Ml Carp\Vial) 4 mg IV Q4H PRN PRN Reason: Pain Stop: 04/19/21 01:43 Multivitamins (Multivitamin Tab) 1 tab PO DAILY [facility] Stop: 05/05/21 08:59 Last Admin: 04/08/21 08:29 Dose: 1 tab Documented by: Oxycodone HCl (Oxycodone Hcl Ir 5 Mg Tab (Immediate Release)) 5 - 10 mg PO QID PRN PRN Reason: Pain Stop: 04/19/21 01:43 Last Admin: 04/07/21 22:22 Dose: 5 mg Documented by: Pantoprazole Sodium (Pantoprazole 40 Mg Tab) 40 mg PO DAILY [facility] Stop: 05/05/21 08:59 Last Admin: 04/08/21 08:29 Dose: 40 mg Documented by: Potassium Chloride (Potassium Chloride 10 Meq Tabcr) 10 meq PO DAILY [facility] Stop: 05/06/21 12:29 Last Admin: 04/08/21 08:28 Dose: 10 meq Documented by: Prednisone (Prednisone 2.5 Mg Tab) 7.5 mg PO DAILY [facility] Stop: 05/06/21 08:59 Last Admin: 04/08/21 08:28 Dose: 7.5 mg Documented by:
[2021-04-09] MEDS ORDERED: FUROSEMIDE 20 MG TAB PO SCH (09:00)
--- NOTE | 2021-04-09 09:27 | Discharge Summary ---
Date of Service April 09, 2021 Admission HPI Per Admitting Provider History obtained from patient, family, and records. Medical history significant for rheumatoid arthritis on leflunomide,chronic steroid Rx; HCV status post treatment, chronic anemia (baseline hemoglobin of 13), ongoing tobacco abuse. Last confinement 2017 under Orthopedics service for elective right knee surgery. About 2 months ago, patient developed wound infections on both elbows. Possibly from bumping his elbows. Outpatient CS [facility]. Elbow wounds improved with Bactrim Rx. Last month, patient noted a wound on the right ring finger. Patient unsure about trauma. Some drainage. No fever, no chills. 3 weeks ago, patient noted dry cough with shortness of breath especially on exertion. No fever, no chills, no night sweats, no unusual weight loss. Transient chest tightness as per patient. Patient seen at [facility] ER. Prescribed an antibiotic and steroid course for possible pneumonia. Worsening shortness of breath especially on exertion without chest pain. Patient also noted a red rash on his left forearm. Patient directed to ER by PCP. At the ER, IV Heparin started for troponin elevation. 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 Admission Exam Per Admitting Provider Physical Exam: GENERAL: Comfortable, pleasant, no respiratory distress SKIN: Normal color, warm HEENT: [place] palpebral conjunctivae, no ptosis, dry buccal mucosa NECK : Supple, no tenderness CHEST : Decreased breath sounds, no tenderness HEART : Tachycardic R, no obvious murmurs ABDOMEN: Some distention, nontender EXTREMITIES : Ulcerated wound adjacent to nail bed distal phalanx of right fourth digit with minimal tenderness, report rash left forearm, no other conspicuous deformities noted NEUROLOGIC : Coherent, no facial asymmetry, no other gross focality Principal Diagnosis Shortness of breath, mildly reduced EF to 40 to 45% with grade 2 diastolic dysfunction, rheumatoid arthritis with multiple lung nodules Discharge Exam Lying in bed comfortably Constitutional well developed, well nourished, + ill appearing and average body habitus Eyes PERRL, conjunctivae normal, anicteric sclerae ENMT external ear and nose normal, oropharynx normal Neck trachea midline, no thyromegaly Respiratory + cough; no respiratory distress Auscultation: + diminished lung sounds; no crackles and no wheezes Cardiovascular Rate/Rhythm: regular rate and regular rhythm; not tachycardic Heart Sounds: normal S1 and normal S2; no murmur Extremities: no edema Gastrointestinal (Abdomen) Inspection/Auscultation: normal bowel sounds; abdomen not distended Percussion/Palpation: abdomen soft; abdomen nontender Skin + ecchymosis Psychiatric A+Ox3, euthymic affect Lymphatic no cervical or axillary lymphadenopathy Discharge Data Allergies Allergy/AdvReac Type Severity Reaction Status Date / Time No Known Allergies Allergy Unverified 04/04/21 19:07 Consultations 04/04/21 20:07 ED Decision to Admit Stat 04/04/21 23:06 Consult Pulmonology Routine 04/05/21 01:02 Consult Rheumatology Routine 04/05/21 23:54 Consult Cardiology Routine Ordered Studies 04/04/21 18:41 CT angio chest PE protocol Stat Hospital Course (1) SOB (shortness of breath): Present on admission with SOB and cough Multiple etiologies including CHF and rheumatoid lung, doubt any pneumonia CT chest showed multiple peripheral predominant nodules, some with cavitation, measuring up to 2 cm. Pulm on board-appreciate input and recommendation QuantiFERON assay-negative for tuberculosis, Cocci, crypto are pending Airborne precautions can be taken off Shortness of breath seems to be clinically better Clinically much better and will have a 2 step O2 saturation test before discharge this afternoon Multiple peripheral pulmonary nodules with cavitation, measuring up to 2 cm Appreciate pulmonary input and recommendation Infective source has been considered but no signs and or symptoms of infection have been found and the cultures have been negative Question of IR guided biopsy needs to be discussed with the patient and the radiologist as per pulmonary recommendation QuantiFERON TB test has been negative Fungal antigens are pending Discussed with IR radiologist in [place] and also in [place] We will schedule for an outpatient CT-guided lung biopsy in [place] shortly Elevated troponin possible related to SOB /CHF/tachycardia Troponin peak to 0,.09, then trending down to 0.077 EKG showed no acute ischemic changes Echo showed showed LV systolic function is mildly reduced, EF 40 to 45%, mild concentric LV hypertrophy, mild to moderate global hypokinesis of the left ventricle, diastolic dysfunction grade 2, left atrium is mildly dilated and mild mitral regurgitation Will consult cardiology Continue metoprolol and aspirin Will be followed up by [facility] block paver as an outpatient for possible cath after the biopsy Right finger infection Could be secondary to vasculitis and/or infarction Hand xray showed no acute osseous pathology. Osteoarthritis. He was starting on Doxycycline for right finger infection History of hepatitis C could cause vasculitis Rheumatoid arthritis Continue leflunomide Continue prednisone Immunocompromised patient Hold patient's Arava until TB ruled out and patient seen by rheumatology. Rheumatology consulted-appreciate input and recommendation Discussed with the police pilot for a possible repeat CT scan in 6 to 8 weeks which will be done if the biopsy is not completed by this time chronic anemia hemoglobin stable Hyperglycemia Mostly due to steroid induced hyperglycemia Most recent Hba1c 6.3 Continue monitor BS Tobacco abuse Counseling on smoking cessation DVT prophylaxis per Lovenox subcu Full code Patient requesting updates from providers. Ms. Hayley Morgan, contact #[phone]. Total Time Total Time Spent Total Time Spent (In Minutes): 35 minutes Discharge Plan Discharge Items Patient Disposition: Home - Self-Care Reason For Visit: CP, TRP ELEV Discharge Diagnosis: Shortness of breath, mildly reduced EF to 40 to 45% with grade 2 diastolic dysf unction, rheumatoid arthritis with multiple lung nodules Condition on Discharge: Fair Activity: Resume your previous activity Non-emergency contact: Primary Care Provider Call non-emergency contact if: you have any medication questions and your symptoms worsen Follow-up/Referrals: Ludy Remy DO [Primary Care Provider] - (Date & Time 04/12/2021 11:00 AM Provider Ludy Remy DO Department Family [facility] ) Guillermo Luque DO [Hematology Supervisor] - (Date & Time 04/15/2021 8:00 AM Provider Guillermo Luque DO Department Cardiology, [facility] ) Diet: Heart Healthy Fluids: 1800ml (7 cups) Addtl Attending Provider Instructions: Please take precautions to avoid fall Please keep appointments with your primary care provider and the specialist Diamond Morillo will call you for an appointment for biopsy of the lung nodule Pending Studies at Discharge: Yes Studies:: Serological test Stand-Alone Forms: My Pledge51, Smoking Cessation Medications and DC Order Prescriptions: New doxycycline hyclate 100 mg Capsule 100 mg PO BID Qty: 10 RF: 0 losartan 25 mg Tablet 12.5 mg PO QPM Qty: 30 RF: 0 metoprolol succinate 25 mg Tablet Extended Release 24 Hr 25 mg PO BID Qty: 60 RF: 0 furosemide 20 mg Tablet 20 mg PO QAM Qty: 30 RF: 0 prednisone 2.5 mg Tablet 7.5 mg PO DAILY Qty: 90 RF: 0 potassium chloride 10 mEq Tablet,Er Particles/Crystals 10 meq PO DAILY 30 Days Qty: 30 RF: 0 Continued omeprazole 40 mg capsule,delayed release(DR/EC) 40 mg PO DAILY RF: 0 leflunomide 20 mg tablet 20 mg PO DAILY RF: 0 hydrocodone-acetaminophen 7.5-325 mg tablet 1 - 2 tab PO UD PRN (Reason: Pain) RF: 0 folic acid 1 mg tablet 1 mg PO DAILY RF: 0 hydroxychloroquine 200 mg tablet 200 mg PO DAILY RF: 0 aspirin [Aspirin Low Dose] 81 mg Tablet,Delayed Release (Dr/Ec) 81 mg PO DAILY RF: 0 multivitamin Tablet 1 tab PO DAILY RF: 0 Discontinued prednisone 10 mg tablet 10 mg PO UD RF: 0 Discharge Orders: Discharge Order (Routine); Ordered 04/08/21 Ordered By: Vianca Flores/Other Patient Handouts: A1C, Prediabetes, 5 Steps for Eating Healthier Admission Data Admit Date/Time: 04/04/21 23:03 Attending Provider: Vianca Natarajan Admit Provider: Daniel Laurent Primary Care Provider: Ludy Remy Other Providers: Daniel Laurent ; Everardo Marshall ; Alcon Gamboa ; William Lackey ; Tex Cuevas ; Arlet Faust ; Krystyna Hardy I. ; Alberto Gacria ; Jamie Valente ; Michael Allen ; Guillermo Luque ; Randall Craig ; Fredy De Guzman ; Valentina Ceron ; Aparna Espinal ; Elizabeth Johnson ; Jamie Mclean ; Alexsandra Mendez Other Interventions: Discharge Summary Assessment (RN) Last Done: 04/08/21 14:39
[2021-04-09 12:41] LABS: Coccidioides Ab, CF <1:2 (<1:2); Coccidioides Ab, ID Negative (Negative); Cryptococcal Antigen Not Detected (Not Detected); Cyclic Citrullinated Pep IgG >250 UNITS; Rheumatoid Factor 121 IU/mL (<14); Source Serum
[2021-04-11 18:26] LABS: Albumin 3.5 g/dL (3.8-4.8); Alpha 1 Globulin 0.4 g/dL (0.2-0.3); Beta-1-Globulin 0.5 g/dL (0.4-0.6); Beta-2-Globulin 0.4 g/dL (0.2-0.5); Ceruloplasmin 34 mg/dL (18-36); Gamma Globulin 0.8 g/dL (0.8-1.7); Monoclonal Protein Band 1 DNR g/dL (NONE DETECTED); Monoclonal Protein Band 2 DNR g/dL (NONE DETECTED); Monoclonal Protein Band 3 DNR g/dL (NONE DETECTED); Total Protein 6.5 g/dL (6.1-8.1)
[2021-04-13 15:58] LABS: % Cryocrit DNR; ANCA Screen Negative (Negative); Cryoglobulin, QL Negative (Negative); Myeloperoxidase Ab <1.0 AI (<1.0); Proteinase-3 AB <1.0 AI (<1.0)
== END 2021-04-08 15:00 | disposition home or self-care (01) | DRG 204 ==
LOC: ED 16:57 → 2S 23:03 → SUATTDRO 23:03 → 2S 04-05 00:46
DX: R91.8 Other nonspecific abnormal finding of lung field; Z79.82 Long term (current) use of aspirin; M05.29 Rheumatoid vasculitis with rheumatoid arthritis of multiple sites; Z86.59 Personal history of other mental and behavioral disorders; I21.A1 Myocardial infarction type 2; Z20.822 Contact with and (suspected) exposure to COVID-19; D64.9 Anemia, unspecified; F17.210 Nicotine dependence, cigarettes, uncomplicated; Z79.899 Other long term (current) drug therapy; R00.0 Tachycardia, unspecified; R21 Rash and other nonspecific skin eruption; D84.821 Immunodeficiency due to drugs; Z79.52 Long term (current) use of systemic steroids; T38.0X5A Adverse effect of glucocorticoids and synthetic analogues, initial encounter; R73.9 Hyperglycemia, unspecified; R06.02 Shortness of breath; M19.90 Unspecified osteoarthritis, unspecified site; L08.89 Other specified local infections of the skin and subcutaneous tissue; E87.6 Hypokalemia; I50.20 Unspecified systolic (congestive) heart failure

== ENCOUNTER 2022-04-06 15:28 | Observation (INO) ==
[2022-04-06 16:36] LABS: Basophils # (auto) 0.02 K/uL (0-0.2); Basophils % (auto) 0.2 %; Eosinophils # (auto) 0.16 K/uL (0-0.50); Eosinophils % (auto) 1.4 %; Hematocrit (blood only) 37.3 % (40.1-51.0); Hemoglobin 11.8 g/dl (14.0-18.0); Immature Granulocytes # (auto) 0.13 K/uL (0.00-0.02); Immature Granulocytes % (auto) 1.2 %; Lymphocytes % (auto) 17.1 %; Mean Corpuscular Hemoglobin 27.5 pg (25.0-34.0); Mean Corpuscular Hgb Conc 31.6 g/dL (32.0-36.0); Mean Corpuscular Volume 86.9 fL (80.0-100.0); Monocytes # (auto) 0.79 K/uL (0.24-0.82); Monocytes % (auto) 7.1 %; Neutrophils # (auto) 8.09 K/uL (1.4-6.5); Platelet Count 343 K/uL (130-400); RDW Coefficient of Variation 15.9 % (11.5-14.5); RDW Standard Deviation 50.1 fL (36.4-46.3); Red Blood Count 4.29 M/uL (4.63-6.08); White Blood Count 11.09 K/ul (4.8-10.8)
--- NOTE | 2022-04-06 17:01 | Emergency Department Note ---
History of Present Illness General Chief complaint: Referred by Doctor Stated complaint: REF BY , POSSIBLE [place] Time Seen by Provider: 04/06/22 16:25 Source: patient Mode of arrival: ambulatory Limitations: no limitations History of Present Illness Provider complaint: Referred by , Abnormal evaluation yesterday Maximum Pain Intensity: 7 This is a 57-year-old male who presents emergency department after being referred by his PCPs office. Patient had been increasingly short of breath over the last several days and and had a fall versus syncopal event yesterday morning. He went to [facility] yesterday. He underwent labs and imaging there. They did want to admit him however he declined stating he needed to come home. He contacted his PCP today to discuss his evaluation there and see if outpatient follow-up can be arranged and he was referred to the emergency room for additional evaluation. Patient does have a prior history of congestive heart failure and follows with Dr. Urias of cardiology. He states his last echo was 1 year ago. He states he has had chest tightness with the shortness of breath. He states he has never had a stress test or cardiac catheterization. Patient has a history of rheumatoid arthritis and takes prednisone daily. He is not currently on any Biologics. He denies any prior history of heart attack. He states he did have COVID 2 to 3 weeks ago however did not have any increased cough or shortness of breath during acute COVID. Home Medications Medication Instructions Recorded Confirmed Type aspirin 81 mg tablet,delayed 81 mg PO DAILY 04/04/21 04/06/22 History release (Bob Low Dose Aspirin) folic acid 1 mg tablet 1 mg PO DAILY 04/04/21 04/06/22 History omeprazole 40 mg capsule,delayed 40 mg PO DAILY 04/04/21 04/06/22 History release furosemide 20 mg tablet 20 mg PO QAM #30 tabs 04/08/21 04/06/22 Rx losartan 25 mg tablet 12.5 mg PO QPM #30 tabs 04/08/21 04/06/22 Rx amlodipine 5 mg tablet 5 mg PO QPM 08/27/21 04/06/22 History clopidogrel 75 mg tablet 75 mg PO DAILY 08/27/21 04/06/22 History nitroglycerin 0.4 mg sublingual 0.4 mg sublingual .PRN/UD PRN 08/27/21 04/06/22 History tablet Chest Pain prednisone 10 mg tablet 10 mg PO .TAPER UD 08/27/21 04/06/22 History rosuvastatin 5 mg tablet 5 mg PO QPM 08/27/21 04/06/22 History sildenafil (pulm.hypertension) 20 20 mg PO BID 08/27/21 04/06/22 History mg tablet amoxicillin 875 mg-potassium 1 tab PO BID 04/06/22 04/06/22 History clavulanate 125 mg tablet atenolol 25 mg tablet 25 mg PO AMHS 04/06/22 04/06/22 History duloxetine 30 mg capsule,delayed 30 mg PO DAILY 04/06/22 04/06/22 History release etanercept 50 mg/mL (1 mL) 50 mg subcut .QWEEK 04/06/22 04/06/22 History subcutaneous syringe (Enbrel) hydrocodone 7.5 mg-acetaminophen 1 tab PO Q8 PRN Pain 04/06/22 04/06/22 History 325 mg tablet sildenafil (pulm.hypertension) 20 40 mg PO HS 04/06/22 04/06/22 History mg tablet tiotropium bromide 2.5 2 inh inhalation DAILY 04/06/22 04/06/22 History mcg/actuation mist for inhalation (Spiriva Respimat) Allergies Allergy/AdvReac Type Severity Reaction Status Date / Time No Known Allergies Allergy Unverified 04/06/22 20:49 Past Med/Surg History Medical History Chronic steroid use Erectile dysfunction GERD (gastroesophageal reflux disease) Long-term use of high-risk medication Pre-diabetes Rheumatoid arthritis Tobacco use disorder Surgical History No pertinent past surgical history Family History Other Heart disease Social History Smoking Status: Former smoker Tobacco Type: Cigarettes Cigarettes Per Day: 8-10; Second Hand Exposure: Yes; Hx Alcohol Use: No Hx Substance Use: No Preferred Language: [place] Leonean Communication Ability: Effective Clinical Laboratory Science 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 Required: No Beliefs That Will Affect Care: None Current Living Situation: Significant Other Current Living Situation Comment: girlfriend Feels Safe at Home: Yes Assistive Devices: Cane and Walker Review of Systems A total of 10 systems reviewed and were otherwise negative All systems reviewed & are unremarkable except as noted in HPI & below Physical Exam Vital Signs Vital Signs - 24 hr 04/06/22 16:04 04/06/22 16:33 04/06/22 16:33 Temperature 36.8 C Temperature Source Oral Pulse Rate 80 Pulse Rate [Right Finger] 83 Pulse Rate from SpO2 Sensor Pulse Rhythm Regular Pulse Rhythm [Right Finger] Regular Pulse Strength Normal Pulse Strength [Right Finger] Normal Respiratory Rate 18 26 H Respiratory Effort / Characteristics Non-Labored Spontaneous Non-Labored Spontaneous Respiratory Depth Normal Normal Respiratory Pattern Regular Regular Blood Pressure 120/77 Blood Pressure [Left Arm] 111/75 Blood Pressure Mean 91 Blood Pressure Mean [Left Arm] 87 Blood Pressure Position Sitting Blood Pressure Position [Left Arm] Lying Pulse Oximetry 97 96 95 Oxygen Delivery Method Room Air Room Air Room Air Sepsis Recent Fever Within 48 Hours No Sepsis New/Unexplained Change in Mental Status No Sepsis Action Taken by Nursing No Action Required 04/06/22 16:20 04/06/22 16:30 04/06/22 16:33 Temperature Temperature Source Pulse Rate 81 81 Pulse Rate [Right Finger] Pulse Rate from SpO2 Sensor Pulse Rhythm Pulse Rhythm [Right Finger] Pulse Strength Pulse Strength [Right Finger] Respiratory Rate 17 18 Respiratory Effort / Characteristics Respiratory Depth Respiratory Pattern Blood Pressure 111/75 Blood Pressure [Left Arm] Blood Pressure Mean 87 Blood Pressure Mean [Left Arm] Blood Pressure Position Blood Pressure Position [Left Arm] Pulse Oximetry Oxygen Delivery Method Sepsis Recent Fever Within 48 Hours Sepsis New/Unexplained Change in Mental Status Sepsis Action Taken by Nursing 04/06/22 16:33 04/06/22 16:40 04/06/22 16:50 Temperature Temperature Source Pulse Rate 85 81 83 Pulse Rate [Right Finger] Pulse Rate from SpO2 Sensor 83 85 Pulse Rhythm Pulse Rhythm [Right Finger] Pulse Strength Pulse Strength [Right Finger] Respiratory Rate 20 22 21 Respiratory Effort / Characteristics Respiratory Depth Respiratory Pattern Blood Pressure Blood Pressure [Left Arm] Blood Pressure Mean Blood Pressure Mean [Left Arm] Blood Pressure Position Blood Pressure Position [Left Arm] Pulse Oximetry 97 97 Oxygen Delivery Method Sepsis Recent Fever Within 48 Hours Sepsis New/Unexplained Change in Mental Status Sepsis Action Taken by Nursing 04/06/22 17:00 04/06/22 17:10 04/06/22 17:20 Temperature Temperature Source Pulse Rate 81 84 82 Pulse Rate [Right Finger] Pulse Rate from SpO2 Sensor 82 85 85 Pulse Rhythm Pulse Rhythm [Right Finger] Pulse Strength Pulse Strength [Right Finger] Respiratory Rate 25 H 18 21 Respiratory Effort / Characteristics Respiratory Depth Respiratory Pattern Blood Pressure Blood Pressure [Left Arm] Blood Pressure Mean Blood Pressure Mean [Left Arm] Blood Pressure Position Blood Pressure Position [Left Arm] Pulse Oximetry 97 97 98 Oxygen Delivery Method Sepsis Recent Fever Within 48 Hours Sepsis New/Unexplained Change in Mental Status Sepsis Action Taken by Nursing 04/06/22 17:30 04/06/22 17:40 04/06/22 17:50 Temperature Temperature Source Pulse Rate 91 H 84 78 Pulse Rate [Right Finger] Pulse Rate from SpO2 Sensor Pulse Rhythm Pulse Rhythm [Right Finger] Pulse Strength Pulse Strength [Right Finger] Respiratory Rate 19 20 22 Respiratory Effort / Characteristics Respiratory Depth Respiratory Pattern Blood Pressure Blood Pressure [Left Arm] Blood Pressure Mean Blood Pressure Mean [Left Arm] Blood Pressure Position Blood Pressure Position [Left Arm] Pulse Oximetry Oxygen Delivery Method Sepsis Recent Fever Within 48 Hours Sepsis New/Unexplained Change in Mental Status Sepsis Action Taken by Nursing GENERAL: alert, well appearing, well nourished, no distress, non-toxic EYE EXAM: normal conjunctiva, PERRL and EOM's grossly intact OROPHARYNX: no exudate, no erythema, lips, buccal mucosa, and tongue normal and mucous membranes are moist NECK: supple, no nuchal rigidity, no adenopathy, non-tender LUNGS: Clear to auscultation. Normal chest wall mechanics, no w/r/r HEART: no murmurs, S1 normal and S2 normal ABDOMEN: abdomen soft, non-tender, normo-active bowel sounds, no masses, no rebound or guarding. BACK: Back is symmetrical on inspection and there is no deformity, no midline tenderness, no CVA tenderness. SKIN: no rashes and no bruising UPPER EXTREMITIES: upper extremities are grossly normal. FROM, nml pulses b/l. LOWER EXTREMITIES: No pitting edema. FROM, nml pulses b/l. NEURO EXAM: Normal sensorium, cranial nerves II-XII grossly intact, normal speech, no gross weakness of arms, no gross weakness of legs. Gross sensation intact. Course Administered Medications Discontinued Medications Hydrocodone Bitart/Acetaminophen (Hydrocodone/Acetaminophen 7.5/325mg Tab) 1 tab PO TID PRN PRN Reason: Pain Stop: 04/20/22 22:20 Last Admin: 04/08/22 08:57 Dose: 1 tab Documented By: Admin: 04/07/22 17:28 Dose: 1 tab Documented By: Admin: 04/07/22 09:06 Dose: 1 tab Documented By: Admin: 04/06/22 23:44 Dose: 1 tab Documented By: MEREDITH Amlodipine Besylate (Amlodipine Besylate 5 Mg Tab) 5 mg PO QPM MAIRA Stop: 05/06/22 22:20 Last Admin: 04/07/22 20:01 Dose: 5 mg Documented By: Admin: 04/06/22 23:40 Dose: 5 mg Documented By: MEREDITH Amoxicillin/Clavulanate Potassium (Amoxicillin/Clavulanate 875 Mg Tab) 1 tab PO BID MAIRA Stop: 04/13/22 22:59 Last Admin: 04/08/22 07:53 Dose: 1 tab Documented By: Admin: 04/07/22 20:01 Dose: 1 tab Documented By: Admin: 04/07/22 09:10 Dose: 1 tab Documented By: Admin: 04/06/22 23:38 Dose: 1 tab Documented By: MEREDITH Aspirin (Aspirin 81 Mg Ectab) 81 mg PO DAILY MAIRA Stop: 05/07/22 08:59 Last Admin: 04/08/22 07:54 Dose: 81 mg Documented By: Admin: 04/07/22 09:10 Dose: 81 mg Documented By: LUZ Atenolol (Atenolol 25 Mg Tablet) 25 mg PO BID MAIRA Stop: 05/06/22 22:20 Last Admin: 04/08/22 07:54 Dose: 25 mg Documented By: Admin: 04/07/22 20:01 Dose: 25 mg Documented By: Admin: 04/07/22 09:11 Dose: 25 mg Documented By: Admin: 04/06/22 23:39 Dose: 25 mg Documented By: MEREDITH Clopidogrel Bisulfate (Clopidogrel Bisulfate 75 Mg Tab) 75 mg PO DAILY MAIRA Stop: 05/07/22 08:59 Last Admin: 04/08/22 07:54 Dose: 75 mg Documented By: Admin: 04/07/22 09:11 Dose: 75 mg Documented By: LUZ Duloxetine HCl (Duloxetine Hcl 30 Mg Cap) 30 mg PO DAILY MAIRA Stop: 05/07/22 08:59 Last Admin: 04/08/22 07:56 Dose: 30 mg Documented By: Admin: 04/07/22 09:11 Dose: 30 mg Documented By: LUZ Enoxaparin Sodium (Enoxaparin Inj 40 Mg/0.4 Ml Syr) 40 mg SQ Q24H MAIRA Stop: 05/06/22 20:59 Last Admin: 04/07/22 20:02 Dose: Not Given Documented By: Admin: 04/06/22 23:41 Dose: 40 mg Documented By: MEREDITH Folic Acid (Folic Acid 1 Mg Tab) 1 mg PO DAILY MAIRA Stop: 05/07/22 08:59 Last Admin: 04/08/22 07:55 Dose: 1 mg Documented By: Admin: 04/07/22 09:11 Dose: 1 mg Documented By: LUZ Furosemide (Furosemide 20 Mg Tab) 20 mg PO QAM MAIRA Stop: 05/07/22 08:59 Last Admin: 04/08/22 07:54 Dose: 20 mg Documented By: Admin: 04/07/22 09:12 Dose: 20 mg Documented By: LUZ Influenza Virus Vaccine Quadrival (Fluarix Quadrivalent 0.5 Ml Syr) 0.5 ml IM .ONCE ONE Stop: 04/06/22 23:02 Last Admin: 04/07/22 06:31 Dose: 0.5 ml Documented By: MEREDITH Ioversol (Optiray 350 100ml) 90 ml IV ONCE ONE Stop: 04/07/22 16:26 Last Admin: 04/07/22 16:25 Dose: 90 ml Documented By: AMOL Losartan Potassium (Losartan Potassium 25 Mg Tab) 12.5 mg PO QPM MAIRA Stop: 05/06/22 22:20 Last Admin: 04/07/22 20:00 Dose: 12.5 mg Documented By: Admin: 04/06/22 23:38 Dose: 12.5 mg Documented By: MEREDITH Multivitamins (Multivitamin Tab) 1 tab PO DAILY MAIRA Stop: 05/07/22 08:59 Last Admin: 04/08/22 07:55 Dose: 1 tab Documented By: Admin: 04/07/22 09:12 Dose: 1 tab Documented By: LUZ Pantoprazole Sodium (Pantoprazole 40 Mg Tab) 40 mg PO DAILY MAIRA Stop: 05/07/22 08:59 Last Admin: 04/08/22 07:55 Dose: 40 mg Documented By: Admin: 04/07/22 09:12 Dose: 40 mg Documented By: LUZ Prednisone (Prednisone 10 Mg Tablet) 10 mg PO DAILY MAIRA Stop: 05/07/22 08:59 Last Admin: 04/08/22 07:55 Dose: 10 mg Documented By: Admin: 04/07/22 09:10 Dose: 10 mg Documented By: LUZ Rosuvastatin Calcium (Rosuvastatin Calcium 5 Mg Tab) 5 mg PO QPM MAIRA Stop: 05/06/22 22:20 Last Admin: 04/07/22 20:00 Dose: 5 mg Documented By: Admin: 04/06/22 23:38 Dose: 5 mg Documented By: MEREDITH Sildenafil Citrate (Sildenafil Citrate 20 Mg Tablet) 20 mg PO TID MAIRA Stop: 05/06/22 22:20 Last Admin: 04/08/22 12:12 Dose: Not Given Documented By: Admin: 04/08/22 07:53 Dose: 20 mg Documented By: Admin: 04/07/22 20:01 Dose: 20 mg Documented By: Admin: 04/07/22 14:56 Dose: 20 mg Documented By: ЮЛИЯ Admin: 04/07/22 09:10 Dose: 20 mg Documented By: Admin: 04/06/22 23:38 Dose: 20 mg Documented By: MEREDITH Umeclidinium Hersey (Umeclidinium Hersey 62.5mcg/Blister 7 Puffs/Inhaler) 1 puffs INH DAILY MAIRA Stop: 05/07/22 08:59 Last Admin: 04/08/22 08:57 Dose: 1 puffs Documented By: Admin: 04/07/22 09:09 Dose: 1 puffs Documented By: LUZ Medical Decision Making Differential Diagnosis Differential diagnoses includes but is not limited to pneumonia, bronchitis, COPD/Asthma exacerbation, pneumothorax, pulmonary embolism, congestive heart failure, acute coronary syndrome Medical Records Attestation: I reviewed the patient's medical records. Home Medications Current Medication List: was personally reviewed by me Laboratory Data Attestation: I reviewed the patient's lab results. Result diagrams: 04/08/22 05:42 04/08/22 05:42 Lab Results 04/06/22 04/06/22 04/06/22 Range/Units 16:24 16:24 16:24 WBC 11.09 H (4.8-10.8) K/ul RBC 4.29 L (4.63-6.08) M/uL Hgb 11.8 L (14.0-18.0) g/dl Hct 37.3 L (40.1-51.0) % MCV 86.9 (80.0-100.0) fL MCH 27.5 (25.0-34.0) pg MCHC 31.6 L (32.0-36.0) g/dL RDW Std Deviation 50.1 H (36.4-46.3) fL RDW Coeff of Alex 15.9 H (11.5-14.5) % Plt Count 343 (130-400) K/uL MPV 10.0 (9.4-12.4) fL Immature Gran % (Auto) 1.2 % Neut % (Auto) 73.0 % Lymph % (Auto) 17.1 % [place] % (Auto) 7.1 % Eos % (Auto) 1.4 % Baso % (Auto) 0.2 % Neut # (Auto) 8.09 H (1.4-6.5) K/uL Lymph # (Auto) 1.90 (1.2-3.4) K/uL [place] # (Auto) 0.79 (0.24-0.82) K/uL Eos # (Auto) 0.16 (0-0.50) K/uL Baso # (Auto) 0.02 (0-0.2) K/uL Immature Gran # (Auto) 0.13 H (0.00-0.02) K/uL PT 10.3 (9.0-12.0) Seconds INR 1.0 (0.9-1.1) APTT 25.9 (21.0-31.0) Seconds PTT Ratio 0.9 Sodium 135 L (136-145) mmol/L Potassium 3.6 (3.5-5.1) mmol/L Chloride 102 (98-107) mmol/L Carbon Dioxide 24 (21-32) mmol/L Anion Gap 9 (3-11) BUN 21 (6-23) mg/dl Creatinine 0.81 (0.6-1.4) mg/dl Est Cr Clr Drug Dosing 104.4 ml/min Est GFR ( Amer) 113.5 ml/min Est GFR (Non-Af Amer) 98.0 ml/min BUN/Creatinine Ratio 25.9 H (10-20) Glucose 155 H (70-99(Fasting)) mg/dl Calcium 9.4 (8.5-10.1) mg/dl Total Bilirubin 0.3 (0.2-1.0) mg/dl AST 13 (13-39) U/L ALT 16 (7-52) U/L Alkaline Phosphatase 70 (34-104) U/L Troponin I High Sens 28.3 H (0-20) pg/ml B-Natriuretic Peptide (0-100) pg/ml Total Protein 6.8 (6.0-8.3) gm/dl Albumin 3.5 (3.4-5.0) gm/dl Globulin 3.3 (2.5-4.0) gm/dl Albumin/Globulin Ratio 1.1 (0.9-2) SARS-CoV-2 (PCR) (Negative) Influenza Type A (PCR) (Neg) Influenza Type B (PCR) (Neg) RSV (RT-PCR) (Neg) 04/06/22 04/06/22 Range/Units 16:56 19:17 WBC (4.8-10.8) K/ul RBC (4.63-6.08) M/uL Hgb (14.0-18.0) g/dl Hct (40.1-51.0) % MCV (80.0-100.0) fL MCH (25.0-34.0) pg MCHC (32.0-36.0) g/dL RDW Std Deviation (36.4-46.3) fL RDW Coeff of Alex (11.5-14.5) % Plt Count (130-400) K/uL MPV (9.4-12.4) fL Immature Gran % (Auto) % Neut % (Auto) % Lymph % (Auto) % [place] % (Auto) % Eos % (Auto) % Baso % (Auto) % Neut # (Auto) (1.4-6.5) K/uL Lymph # (Auto) (1.2-3.4) K/uL [place] # (Auto) (0.24-0.82) K/uL Eos # (Auto) (0-0.50) K/uL Baso # (Auto) (0-0.2) K/uL Immature Gran # (Auto) (0.00-0.02) K/uL PT (9.0-12.0) Seconds INR (0.9-1.1) APTT (21.0-31.0) Seconds PTT Ratio Sodium (136-145) mmol/L Potassium (3.5-5.1) mmol/L Chloride (98-107) mmol/L Carbon Dioxide (21-32) mmol/L Anion Gap (3-11) BUN (6-23) mg/dl Creatinine (0.6-1.4) mg/dl Est Cr Clr Drug Dosing ml/min Est GFR ( Amer) ml/min Est GFR (Non-Af Amer) ml/min BUN/Creatinine Ratio (10-20) Glucose (70-99(Fasting)) mg/dl Calcium (8.5-10.1) mg/dl Total Bilirubin (0.2-1.0) mg/dl AST (13-39) U/L ALT (7-52) U/L Alkaline Phosphatase (34-104) U/L Troponin I High Sens (0-20) pg/ml B-Natriuretic Peptide 255 H (0-100) pg/ml Total Protein (6.0-8.3) gm/dl Albumin (3.4-5.0) gm/dl Globulin (2.5-4.0) gm/dl Albumin/Globulin Ratio (0.9-2) SARS-CoV-2 (PCR) POSITIVE A* (Negative) Influenza Type A (PCR) Negative (Neg) Influenza Type B (PCR) Negative (Neg) RSV (RT-PCR) Negative (Neg) Imaging Data Radiologist's Impression: Chest X-Ray 04/06/22 16:25 XR chest 1V portable HISTORY: Atypical Chest Pain COMPARISON: Chest 04/02/2022. FINDINGS: The cardiac silhouette remains mildly enlarged. There is mild pulmonary vascular congestion without overt edema. No new focal lung consolidations to suggest a pneumonia. No pneumothorax. No pleural effusions. Degenerative changes again noted within the shoulders. IMPRESSION: Cardiomegaly with mild central pulmonary vascular congestion without overt edema. ACT 112: Negative or not required by law. Electronically signed by: Spencer Christianson M.D. 04/06/2022 6:25 PM ECG Data Attestation: I personally reviewed and interpreted this ECG as follows: Indication: + SOB/dyspnea Rate (beats per minute): 83 Rhythm: + normal sinus ECG Intervals/blocks: + Normal QRS and + Normal QT ECG [place]: + Normal ECG ST segments: + Nonspecific ST abnormalities ECG Findings: + PACs MDM Narrative An order was placed for continuous cardiac monitoring. The monitor shows a rate of __82_ with _normal sinus_ rhythm. This is a 57-year-old male presents to the emergency department with concern for shortness of breath. Patient did recently have COVID although states he was not short of breath until last week. Family at bedside concerned as he has a history of heart problems and congestive heart failure. Patient is a smoker. Labs drawn and sent and EKG performed. EKG without any acute changes. Labs revealed elevated troponin and BNP. Patient appears to have evolving pulmonary edema on chest x-ray. We were able to obtain outpatient records from recent visit to [facility]. Patient did have an elevated troponin while there also. CT of the patient's chest was negative for PE, although there was mention of a spiculated appearing nodule that is concerning for malignancy. Case discussed with hospitalist for additional evaluation and management. Impression & Plan LEVIN (dyspnea on exertion), Elevated troponin, Elevated brain natriuretic peptide (BNP) level, Anemia Discharge Plan Visit Data Chief Complaint: Referred by Doctor Stated Complaint: REF BY , POSSIBLE [place] ED Provider: Anamaria Corona Discharge Problem: LEVIN (dyspnea on exertion), Elevated troponin, Elevated brain natriuretic peptide (BNP) level, Anemia Patient Disposition: Admitted As Inpatient Condition: Fair Discharge Instructions Interventions: ED Discharge Assessment Last Done: 04/06/22 21:57
[2022-04-06 17:07] LABS: Troponin I High Sensitivity 28.3 pg/ml (0-20)
[2022-04-06 17:11] LABS: Partial Thromboplastin Ratio 0.9; Partial Thromboplastin Time 25.9 Seconds (21.0-31.0); Prothrombin Time 10.3 Seconds (9.0-12.0)
[2022-04-06 17:47] LABS: Albumin Globulin Ratio 1.1 (0.9-2); Albumin Level 3.5 gm/dl (3.4-5.0); BUN Creatinine Ratio 25.9 (10-20); Bilirubin,Total 0.3 mg/dl (0.2-1.0); Calcium 9.4 mg/dl (8.5-10.1); Creatinine Clr Calc Pharmacy 104.4 ml/min; Est GFR (African American) 113.5 ml/min; Globulin 3.3 gm/dl (2.5-4.0); Potassium 3.6 mmol/L (3.5-5.1); Total Protein 6.8 gm/dl (6.0-8.3)
--- NOTE | 2022-04-06 18:26 | XRay Report ---
XR chest 1V portable HISTORY: Atypical Chest Pain COMPARISON: Chest 04/02/2022. FINDINGS: The cardiac silhouette remains mildly enlarged. There is mild pulmonary vascular congestion without overt edema. No new focal lung consolidations to suggest a pneumonia. No pneumothorax. No pl eural effusions. Degenerative changes again noted within the shoulders. IMPRESSION: Cardiomegaly with mild central pulmonary vascular congestion without overt edema. ACT 112: Negative or not required by law. Electronically signed by: Spencer Christianson M.D. 04/06/2022 6:25 PM
[2022-04-06 20:23] LABS: Influenza A virus by PCR Negative (Neg); Influenza B virus by PCR Negative (Neg); RSV by PCR Negative (Neg)
[2022-04-06 20:47] LABS: SARS CoV2 RNA(COVID-19)Cepheid POSITIVE (Negative)
[2022-04-06] MEDS ORDERED: LEVALBUTEROL HCL 1.25 MG/3 ML NEB NEB PRN (22:21)
[2022-04-06] MEDS ORDERED: DICLOFENAC SOD 1% GEL 100 GM TUBE EXT PRN (22:21)
[2022-04-06] MEDS ORDERED: POLYETHYLENE (MIRALAX) 17 GM PACK PO PRN (22:21)
[2022-04-06] MEDS ORDERED: NITROGLYCERIN SL 0.4 MG/TAB TAB SL PRN (22:21)
[2022-04-06] MEDS ORDERED: ACETAMINOPHEN 325 MG TAB PO PRN (22:21)
[2022-04-06] MEDS ORDERED: FLUARIX QUADRIVALENT 0.5 ML SYR IM ONE (23:01)
[2022-04-06] MEDS: ROSUVASTATIN CALCIUM 5 MG TAB PO SCH (23:38)
[2022-04-06] MEDS: LOSARTAN POTASSIUM 25 MG TAB PO SCH (23:38)
[2022-04-06] MEDS: SILDENAFIL CITRATE 20 MG TABLET PO SCH (23:38)
[2022-04-06] MEDS: AMOXICILLIN/CLAVULANATE 875 MG TAB PO SCH (23:38)
[2022-04-06] MEDS: ATENOLOL 25 MG TABLET PO SCH (23:39)
[2022-04-06] MEDS: amLODIPine BESYLATE 5 MG TAB PO SCH (23:40)
[2022-04-06] MEDS: ENOXAPARIN INJ 40 MG/0.4 ML SYR SQ SCH (23:41)
[2022-04-06] MEDS: HYDROCODONE/ACETAMINOPHEN 7.5/325MG TAB PO PRN (23:44)
--- NOTE | 2022-04-07 00:20 | History and Physical Report ---
DATE OF ADMISSION: 04/06/2022. CHIEF COMPLAINT: Shortness of breath, chest tightness, and an episode of possible syncope yesterday. HISTORY OF PRESENT ILLNESS: This is a 57-year-old male with past medical history significant for nonobstructive CAD per cardiac catheterization in March 2021, mild reduced left ventricular systolic function per EF of 46%, intolerant to metoprolol with rash frequent, paroxysmal SVT on per ZIO 06/2021, multiple pulmonary nodules noted on the CTA chest done in March 2021, following with pulmonary, history of IV drug abuse, history of rheumatoid arthritis, recently was found to be on prolonged QT and advised to stop hydroxychloroquine and he says he stopped all RA medications except prednisone. Currently, he is only on prednisone and there is a plan to restart Enbrel. History of hepatitis C, status post treatment, history of severe Raynaud's disease with gangrene of the fourth finger, follows with Rheumatology, on amlodipine and Revatio. Chronic tobacco abuse, history of exposure to pesticides, question of possible exposure to asbestos. As per the [facility] notes, he had tuberculosis testing and coccidioides testing negative in March 2021. He had left lung fine needle aspiration and biopsy 05/2021, looks like this was nondiagnostic. History of prediabetes, peripheral artery disease, GERD, degenerative disk disease, immunodeficiency due to drugs, history of erectile dysfunction, depression and anxiety. Presents with shortness of breath and chest tightness. The patient does state he had COVID in mid of January and he took Paxlovid. His main symptoms from covid were a couple of days of nausea, diarrhea,headache and then he had fatigue, which lasted for 2 weeks. In the last 2 weeks, he is getting short of breath even at rest and with minimal exertion and he had some chest tightness too, but that is resolved now. The day before yesterday, he had 14 hours work and slept at 11:00 p.m. and woke up at 3:30 a.m. and went to bathroom and when sitting on the commode, he was not sure, but thinks he might have slept, but he might have passed out, he is not sure, but he found himself on the floor near the commode 3-4 hours later and initially he was a little confused. He told his . At that time, it was like 9:30 a.m. and then his took him to the hospital yesterday at [facility]. Seems to be they did all the workup and they wanted to admit him there, but he seemed to have declined and went back home and he called his PCP's office today and they advised to come back here for additional evaluation. Seems ER saw the report the showed on the CTA ches done at [facility] , that showed there is no PE, but showed some lung masses, suspicious lung lesions, ER is trying to get the records from the [facility]. The patient is resting comfortably, hemodynamically stable currently. Saturating okay on room air, able to talk in complete sentences. His mother is in the room. He says he has some mild cough, occasional light yellowish greenish phlegm. Denies any fever or chills. Appetite is okay. He has sometimes slight trouble swallowing, but he is doing okay. Denies any headache. No blurred visions, no earache, no runny nose. He has some sore throat. No nausea, no abdominal pain. Normal bowel and bladder movements. No swelling in the legs. ALLERGIES: No known drug allergies. PAST MEDICAL HISTORY: As mentioned above. PAST SURGICAL HISTORY: Colonoscopy, dental surgery, tonsillectomy, revision of the right knee joint replacement. MEDICATIONS: The patient is on amlodipine 5 mg p.o. daily, aspirin 81 mg p.o. daily, atenolol 25 mg p.o. b.i.d., Plavix 75 mg p.o. daily, diclofenac sodium topical p.r.n., duloxetine 30 mg p.o. daily, folic acid 1 mg p.o. daily, Lasix 20 mg p.o. daily, hydrocodone/acetaminophen 7.5/325 one tablet p.o. t.i.d. p.r.n., losartan 12.5 mg p.o. daily, multivitamin 1 tablet p.o. daily, nitroglycerin 0.4 mg sublingual p.r.n., omeprazole 40 mg p.o. daily, prednisone 10 mg p.o. daily, rosuvastatin 5 mg p.o. daily, sildenafil 20 mg p.o. t.i.d., Spiriva Respimat 2 inhalations daily. FAMILY HISTORY: Significant for mother has arthritis, hypertension. SOCIAL HISTORY: Lives with significant other. Smokes three cigarettes a day. Currently, no alcohol, no drug use. REVIEW OF SYSTEMS: As per HPI. Rest of the systems is negative. PHYSICAL EXAMINATION: GENERAL: The patient is of moderate build, not in acute distress. VITAL SIGNS: Temperature 36.8, pulse 86, respiratory rate 20, blood pressure 98/79, oxygen 95% on room air. HEENT: Pupils equal, round, and reactive to light. Oral mucosa moist. NECK: No JVD, no neck masses. CARDIOVASCULAR: S1 and S2 heard. Regular rate and rhythm. No murmur, no gallop. RESPIRATORY SYSTEM: Normal AP diameter. No accessory muscle use. No wheezing, no crackles. ABDOMEN: Soft, bowel sounds present, nontender, no distention. CENTRAL NERVOUS SYSTEM: Cranial nerves II-XII grossly intact, nonfocal. EXTREMITIES: No edema, no erythema. LABORATORY DATA: WBC 11.09, hemoglobin 11.8, hematocrit 37.3, platelets 343. PT 13.3, INR 1, APTT 25.9. Sodium 135, potassium 3.6, chloride 102, bicarbonate 24, BUN 21, creatinine 0.8, serum glucose 155, calcium 9.4, total bilirubin 0.3, AST 13, ALT 16, alkaline phosphatase 72. Troponin I high sensitivity 28.3. BNP 255. SARS-CoV-2 PCR pending. IMAGING DATA: Chest x-ray, cardiomegaly with mild central pulmonary vascular congestion without overt edema. EKG: Sinus rhythm with PACs at the rate of 83, no significant change was found. QTc of 460. ASSESSMENT AND PLAN: This 57-year-old male presents with ongoing shortness of breath and some on and off chest tightness and questionable syncopal episode today. 1. Shortness of breath and chest discomfort: He has mild elevation of troponin that seems to be chronic. Will follow the serial cardiac enzymes, echo. N.p.o. after midnight and cardiac consult in the a.m. Seems to be nonobstructive CAD as per cardiac catheterization in March 2021. Continue his aspirin, Plavix, atenolol, statin. He is also having some lung lesions and smoking history. His lung lesion was first found in March 2021, following with pulmonary. He had a biopsy done in May of 2021, which was undiagnostic. He has had a CAT scan done yesterday in [facility], which we are trying to get the records. Follows with pulmonary. Will also consult cardiology and pulmonary in the a.m. for further recommendations. 2. History of chronic systolic CHF: Does not seems to be in volume overload. Continue his home losartan, atenolol, and his Lasix. 3. Hyperlipidemia: On statin. 4. History of rheumatoid arthritis: Currently only steroids. There is plan to start Enbrel. His hydroxychloroquine was stopped because of QTc prolongation. EKG today, his QTc is okay.Followup with Rheumatology. 5. History of heavy drug use. 6. History of hepatitis C, status post treatment. 7. History of severe Raynaud disease with gangrene in the fourth finger: On amlodipine and Revatio. 8. Prediabetes: Will follow HbA1c levels, diabetic diet. 9. Hypertension: Continue his losartan, atenolol, amlodipine. Will monitor his blood pressure. 10. Depression: Continue his duloxetine. 11. Peripheral artery disease: On aspirin, Plavix, and statin. 12. Gastroesophageal reflux disease: On omeprazole. 13. Deep venous thrombosis prophylaxis: Will place on Lovenox. DISPOSITION: Closely monitor in the [employer] tele. PT/OT prior to discharge. Social service to help with discharge planning. Level 1 full code. Job ID: [id number] MTDD
[2022-04-07 07:14] LABS: Basophils # (auto) 0.07 K/uL (0-0.2); Basophils % (auto) 0.9 %; Eosinophils # (auto) 0.19 K/uL (0-0.50); Eosinophils % (auto) 2.3 %; Hematocrit (blood only) 35.5 % (40.1-51.0); Hemoglobin 11.4 g/dl (14.0-18.0); Immature Granulocytes # (auto) 0.13 K/uL (0.00-0.02); Immature Granulocytes % (auto) 1.6 %; Lymphocytes # (auto) 1.84 K/uL (1.2-3.4); Lymphocytes % (auto) 22.6 %; Mean Corpuscular Hemoglobin 27.7 pg (25.0-34.0); Mean Corpuscular Hgb Conc 32.1 g/dL (32.0-36.0); Mean Corpuscular Volume 86.4 fL (80.0-100.0); Mean Platelet Volume 10.4 fL (9.4-12.4); Monocytes # (auto) 0.83 K/uL (0.24-0.82); Monocytes % (auto) 10.2 %; Neutrophils # (auto) 5.09 K/uL (1.4-6.5); Neutrophils % (auto) 62.4 %; Platelet Count 317 K/uL (130-400); RDW Coefficient of Variation 15.8 % (11.5-14.5); RDW Standard Deviation 49.5 fL (36.4-46.3); Red Blood Count 4.11 M/uL (4.63-6.08); White Blood Count 8.15 K/ul (4.8-10.8)
[2022-04-07 07:41] LABS: BUN Creatinine Ratio 31.5 (10-20); Calcium 8.9 mg/dl (8.5-10.1); Creatinine Clr Calc Pharmacy 118.7 ml/min; Est GFR (African American) 118.5 ml/min; Est GFR (Non-African American) 102.2 ml/min; Magnesium 1.9 mg/dl (1.7-2.4); Potassium 3.8 mmol/L (3.5-5.1)
--- NOTE | 2022-04-07 07:47 | Cardiology Consultation ---
Date of Consultation April 07, 2022 Assessment & Plan (1) CAD (coronary artery disease): (2) HFrEF (heart failure with reduced ejection fraction): (3) Syncope and collapse: (4) Chest pain: (5) SOB (shortness of breath): (6) Elevated troponin: (7) Lung nodules: Plan Medically complex 57-year-old male with past medical history as stated in HPI. Patient is somewhat of a poor historian. Initially presented to [facility] emergency department due to progressive shortness of breath and chest tightness as well as a syncopal episode that occurred on 04/05. Work-up showed questionable lung carcinoma. Further testing was recommended however patient left AMA and represented to [facility] emergency department. +COVID-19, asymptomatic. Adequate O2 sats on RA. Cause of syncope unknown. Possible vasovagal mediated/orthostasis. No bradycardia arrhythmias seen on telemetry thus far. Echocardiogram pending. -Obtain resting echo to reassess LVEF and valvular structures. -On goal-directed medical therapy with losartan. Patient did not tolerate metoprolol in the past and is currently on atenolol- continue. -Chest pain-free, continue aspirin 81 mg daily and Plavix 75 mg daily -Blood pressure well controlled. No changes necessary. -Currently patient appears euvolemic on exam. Continue furosemide 20 mg daily. -HS trop minimally elevated, but flat. Has been higher in the past- likely chronic at this time. EKG without significant abnormalities suggestive of ischemia. Elevated trop unlikely to be related to ACS. -Okay to eat from a cardiac standpoint. -Dyspnea is likely multifactorial however given his questionable metastatic lung carcinoma seen on outside hospital imaging would recommend work-up by the primary team regarding this. Case discussed with Dr. Garcia- will follow. Supervising Physician Co-Signing Physician Notes Pt seen and examined with PATRICK Malave. Agree with findings and assessment as above. 2D echocardiogram is unchanged from March 2021. No new wall motion abnormalities. Only mild mitral regurgitation. Agree with medical recommendations as above. Okay to discharge from a cardiac standpoint. History of Present Illness Attending Physician: Bruce Hernandez MD History of Present Illness Medically complex 57-year-old male who initially presented to the [facility] emergency department due to progressive shortness of breath over the last several days and a syncopal episode 04/05 in the morning. He initially presented to [facility] lock hav en undergoing labs and imaging. Patient recently had COVID-19 2 to 3 weeks ago but states that he was mildly ill. No shortness of breath or cough during this time. Care everywhere reviewed. CT of the chest 04/05 at [facility]: No pulmonary emboli, lung nodule noted concerning for lung carcinoma with additional consolidation and nodules concerning for pneumonia versus metastatic disease, questionable esophagitis. Moderate coronary artery calcifications CT of the head 04/05 at [facility]: No acute abnormalities. Chest x-ray 04/05 [facility]: No focal regions of acute airspace consolidation Labs at [facility]: High-sensitivity troponin mildly elevated (29>>26), renal function stable. Sodium mildly low at 133. CBC showing an elevated white count of 11, hemoglobin of 12, platelets of 365. D-dimer elevated at 4.2. BNP mildly elevated at 217. Patient was to have further testing including an ultrasound of the neck, PET scan, and echocardiogram however he left AMA. He then called his PCP on 04/06 noting worsening shortness of breath and fatigue. Patient was instructed to represent to the emergency department and came to [facility]. Work-up at [facility] included thus far: Labs: WBC elevated (11>>8), hemoglobin low at 11.8, renal function stable with a mildly low sodium of 135. High-sensitivity troponin minimally elevated (chronic 28.3>>27), BNP minimally elevated (255). COVID-19 positive Chest x-ray 04/06: Mild central pulmonary vascular congestion without overt edema, cardiomegaly. EKG 04/07: Normal sinus rhythm, nonspecific T wave abnormality, QTC of 460 ms Echo04/07: Pending * Upon entrance into the room patient was resting comfortably in bed. Notes that he continues to have some dyspnea with exertion. Denies any chest pain. No palpitations, dizziness or further episodes of syncope. Notes ongoing fatigue. Telemetry: Sinus rhythm 70s to 90s Past medical history: 1. Nonobstructive CAD per cardiac catheterization 04/20/2021 at [facility] with Dr. Kiara levy Patent coronary anatomy, RCA appears to have a nonobstructive ulcerated plaque in its mid segment, treated medically, added Plavix 2. Mildly reduced LV systolic function per echo 04/05/2021 [facility], LVEF 46% per recent echo 07/2021. 3. Frequent PSVT, 14.9% per zio 06/2021 4. Pulmonary disease- Multiple pulmonary nodules noted on CTA of the chest 03/2021- follows with [facility]- looking to tx care to [facility] (appt 05/2022) a.Chronic tobacco use b.History of exposure to pesticides with agricultural c.Reports exposure to asbestos while currently working in [employer]- following with Pulmonary, status post lung biopsy 5.History of IV drug use 6.Rheumatoid arthritis on Leflunomide and chronic corticosteroid use 7.Hepatitis-C status post treatment 8.Severe Raynaud's disease with gangrene of the 4th finger, following with rheum, on amlodipine and Revatio. 9. 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 Allergies Allergy/AdvReac Type Severity Reaction Status Date / Time No Known Allergies Allergy Unverified 04/06/22 20:49 Home Medications Medication Instructions Recorded Confirmed Type aspirin 81 mg tablet,delayed 81 mg PO DAILY 04/04/21 04/06/22 History release (Bob Low Dose Aspirin) folic acid 1 mg tablet 1 mg PO DAILY 04/04/21 04/06/22 History omeprazole 40 mg capsule,delayed 40 mg PO DAILY 04/04/21 04/06/22 History release furosemide 20 mg tablet 20 mg PO QAM #30 tabs 04/08/21 04/06/22 Rx losartan 25 mg tablet 12.5 mg PO QPM #30 tabs 04/08/21 04/06/22 Rx amlodipine 5 mg tablet 5 mg PO QPM 08/27/21 04/06/22 History clopidogrel 75 mg tablet 75 mg PO DAILY 08/27/21 04/06/22 History nitroglycerin 0.4 mg sublingual 0.4 mg sublingual .PRN/UD PRN 08/27/21 04/06/22 History tablet Chest Pain prednisone 10 mg tablet 10 mg PO .TAPER UD 08/27/21 04/06/22 History rosuvastatin 5 mg tablet 5 mg PO QPM 08/27/21 04/06/22 History sildenafil (pulm.hypertension) 20 20 mg PO BID 08/27/21 04/06/22 History mg tablet amoxicillin 875 mg-potassium 1 tab PO BID 04/06/22 04/06/22 History clavulanate 125 mg tablet atenolol 25 mg tablet 25 mg PO AMHS 04/06/22 04/06/22 History duloxetine 30 mg capsule,delayed 30 mg PO DAILY 04/06/22 04/06/22 History release etanercept 50 mg/mL (1 mL) 50 mg subcut .QWEEK 04/06/22 04/06/22 History subcutaneous syringe (Enbrel) hydrocodone 7.5 mg-acetaminophen 1 tab PO Q8 PRN Pain 04/06/22 04/06/22 History 325 mg tablet sildenafil (pulm.hypertension) 20 40 mg PO HS 04/06/22 04/06/22 History mg tablet tiotropium bromide 2.5 2 inh inhalation DAILY 04/06/22 04/06/22 History mcg/actuation mist for inhalation (Spiriva Respimat) Patient History Medical History Chronic steroid use Erectile dysfunction GERD (gastroesophageal reflux disease) Long-term use of high-risk medication Pre-diabetes Rheumatoid arthritis Tobacco use disorder Surgical History No pertinent past surgical history Family History Other Heart disease Social History Smoking Status: Former smoker Tobacco Type: Cigarettes Cigarettes Per Day: 8-10; Second Hand Exposure: Yes; Do You Dip or Chew Tobacco: No; Hx Alcohol Use: No Hx Substance Use: No Preferred Language: Citizen Of [place] Communication Ability: Effective Practice Specialist Required: No Beliefs That Will Affect Care: None Current Living Situation: Significant Other Current Living Situation Comment: girlfriend Other Information That Helps Us Care for You: No Feels Safe at Home: Yes Safety Concerns: Feels Safe At This Time Assistive Devices: None Review of Systems Review of Systems: All systems reviewed & are unremarkable except as noted in HPI & below Physical Exam Constitutional: WD/WN, vitals as above no acute distress Eyes: PERRL, conjunctivae normal, anicteric sclerae ENMT: external ear and nose normal, oropharynx normal Neck: normal visual inspection and trachea midline Respiratory: normal respiratory effort, lungs clear to auscultation no cough Auscultation: no rales, no rhonchi and no wheezes Cardiovascular: RRR, no murmur, no edema Heart Sounds: normal S1 and normal S2; no murmur Vessels: no JVD Extremities: no edema Gastrointestinal (Abdomen): normal bowel sounds, soft, nontender, no hepatosplenomegaly Musculoskeletal: no cyanosis or clubbing, extremities motor strength 5/5 Skin: no rashes, warm and dry Results & Data ([facility]) Vital Signs (Past 12 Hours) Vital Signs Temp Pulse Pulse Resp BP BP BP 04/07/22 04:00 36.4 C L 68 18 114/70 04/07/22 01:55 74 04/06/22 23:13 04/06/22 22:50 36.5 C 73 16 100/60 04/06/22 21:57 04/06/22 21:31 83 15 105/72 04/06/22 20:18 86 20 98/79 L Pulse Ox O2 Del Method 04/07/22 04:00 96 Room Air 04/07/22 01:55 04/06/22 23:13 Room Air 04/06/22 22:50 94 Room Air 04/06/22 21:57 Room Air 04/06/22 21:31 92 04/06/22 20:18 95 Room Air Laboratory Results Cardiac Enzymes 04/06/22 04/06/22 04/07/22 Range/Units 16:24 16:56 06:00 AST 13 (13-39) U/L Troponin I High Sens 28.3 H 27.0 H (0-20) pg/ml B-Natriuretic Peptide 255 H (0-100) pg/ml Coagulation 04/06/22 04/06/22 Range/Units 16:24 16:56 PT 10.3 (9.0-12.0) Seconds APTT 25.9 (21.0-31.0) Seconds B-Natriuretic Peptide 255 H (0-100) pg/ml CBC 04/06/22 04/07/22 Range/Units 16:24 06:00 WBC 11.09 H 8.15 (4.8-10.8) K/ul RBC 4.29 L 4.11 L (4.63-6.08) M/uL Hgb 11.8 L 11.4 L (14.0-18.0) g/dl Hct 37.3 L 35.5 L (40.1-51.0) % Plt Count 343 317 (130-400) K/uL Neut # (Auto) 8.09 H 5.09 (1.4-6.5) K/uL Lymph # (Auto) 1.90 1.84 (1.2-3.4) K/uL Sargent # (Auto) 0.79 0.83 H (0.24-0.82) K/uL Eos # (Auto) 0.16 0.19 (0-0.50) K/uL Baso # (Auto) 0.02 0.07 (0-0.2) K/uL Comprehensive Metabolic Panel 04/06/22 04/07/22 Range/Units 16:24 06:00 Sodium 135 L 140 (136-145) mmol/L Potassium 3.6 3.8 (3.5-5.1) mmol/L Chloride 102 105 (98-107) mmol/L Carbon Dioxide 24 30 (21-32) mmol/L BUN 21 23 (6-23) mg/dl Creatinine 0.81 0.73 (0.6-1.4) mg/dl Glucose 155 H 93 (70-99(Fasting)) mg/dl Calcium 9.4 8.9 (8.5-10.1) mg/dl AST 13 (13-39) U/L ALT 16 (7-52) U/L Alkaline Phosphatase 70 (34-104) U/L Total Protein 6.8 (6.0-8.3) gm/dl Albumin 3.5 (3.4-5.0) gm/dl Intake and Output 04/06/22 04/07/22 04/07/22 22:59 06:59 14:59 Output Total 200 / 200 Balance -200 / -200 Output: Urine 200 / 200 Other: Other Intake Source NPO Weight 91.172 kg 91.1 kg 91.1 kg Weight Measurement Method Standing Scale Standing Scale Patient Weight 04/08/22 06:59 Weight 91.1 kg
--- NOTE | 2022-04-07 08:14 | Communication Note ---
Date of Service: April 07, 2022 Addendum to h and P>.Questionable syncope on sunday. Monitor in tele, echo , cardio consulted. Thanks
[2022-04-07 08:15] LABS: Estimated Average Glucose 126 mg/dl
[2022-04-07] MEDS: HYDROCODONE/ACETAMINOPHEN 7.5/325MG TAB PO PRN ×2 (09:06→17:28)
[2022-04-07] MEDS: UMECLIDINIUM BROMIDE 62.5MCG/BLISTER 7 PUFFS/INHALER INH SCH (09:09)
[2022-04-07] MEDS: AMOXICILLIN/CLAVULANATE 875 MG TAB PO SCH ×2 (09:10→20:01)
[2022-04-07] MEDS: SILDENAFIL CITRATE 20 MG TABLET PO SCH ×3 (09:10→20:01)
[2022-04-07] MEDS: ASPIRIN 81 MG ECTAB PO SCH (09:10)
[2022-04-07] MEDS: predniSONE 10 MG TABLET PO SCH (09:10)
[2022-04-07] MEDS: CLOPIDOGREL BISULFATE 75 MG TAB PO SCH (09:11)
[2022-04-07] MEDS: ATENOLOL 25 MG TABLET PO SCH ×2 (09:11→20:01)
[2022-04-07] MEDS: FOLIC ACID 1 MG TAB PO SCH (09:11)
[2022-04-07] MEDS: DULoxetine HCL 30 MG CAP PO SCH (09:11)
[2022-04-07] MEDS: PANTOprazole 40 MG TAB PO SCH (09:12)
[2022-04-07] MEDS: MULTIVITAMIN TAB PO SCH (09:12)
[2022-04-07] MEDS: FUROSEMIDE 20 MG TAB PO SCH (09:12)
--- NOTE | 2022-04-07 14:47 | Hospitalist Progress Note ---
Date of Service April 07, 2022 Assessment & Plan (1) Syncope and collapse: Plan: Patient is a 57 yr male presents with ongoing shortness of breath and some on and off chest tightness and questionable syncopal episode today. Chest pain/Dyspnea Likely Multifactorial: DD: Pulmonary vascular congestion, recent COVID, ? Malignancy Less likely ACS H/O Nonobstructive CAD Mild troponin elevation--thought to be chronic -CXR:Cardiomegaly with mild central pulmonary vascular congestion without overt edema. -ECHO: No change compared to prior study on 04/05/2021. Normal LV chamber size and wall thickness. Mildly reduced LV systolic function with mild to moderate g lobal hypokinesis, EF 40 to 45%. Left atrium is mildly dilated. Grade 2 diastolic dysfunction. Mild mitral vegetation. -Will Obtain records from [facility]: Had CTA yesterday -Continue home medications losartan, atenolol, aspirin and Plavix Appreciate cardiology input Continue home diuretics Monitor volume status Lung Lesions Pulmonary nodules have not grown in size when compared to prior CT as per patient H/O smoking H/O COVID in Jan H/O exposure to pesticides, asbestos Lung lesion was first found in March 2021 Inconclusive biopsy from May 2021 Given questionable metastatic lung carcinoma, consider involving pulmonology, oncology (inpatient versus outpatient ) if CTA suggestive of malignancy. Follows with pulmonology as outpatient May need 2 step prior to discharge Empirically on Augmentin COVID 19 Infection H/O COVID in Jan 2022 S/P Paxlovid COVID testing Positive on 04/06/22 ? Reinfection given symptomatic CT chest pending Check CRP, procalcitonin Saturating well on room air Syncope Obtain CT head Check orthostatics Monitor for arrhythmia ECHO as above Fall precautions H/O Chronic systolic CHF No overt signs of volume overload Continue home diuretics Monitor volume status Cardiology on board Hyperlipidemia: On statin H/O Rheumatoid arthritis: Previously hydroxychloroquine--was discontinued due to QTC prolongation Currently only steroids Planned to started on Enbrel Follows with rheumatology as outpatient H/O heavy drug use. H/O hepatitis C S/P treatment H/O Severe Raynaud disease with gangrene in the fourth finger: On amlodipine and Revatio. Prediabetes HbA1C 6.0 Hypertension: Continue losartan, atenolol, amlodipine Monitor Depression: on Duloxetine. Peripheral artery disease: On aspirin, Plavix, and statin GERD on PPI DVT Px: Lovenox SQ Code Status Full Code Admission and Anticipated Discharge Date Admission Date: April 06, 2022 Subjective Patient is seen and examined at bedside Chest pain resolved Reports minimal cough, known expectorant Also reports dyspnea predominantly on exertion States having positional dizziness No other complaints Saturating well on room air Review of Systems Review of Systems: All systems reviewed & are unremarkable except as noted in Subjective Physical Exam Physical Exam: Physical Exam: Vitals signs as noted above General Appearance:Moderately built and nourished, no apparent distress Head: normocephalic, Atraumatic Eyes: normal inspection, EOMI Neck: supple, Trachea midline Respiratory/Chest: Normal breath sounds, CTA, No accessory muscle use Cardiovascular: S1, S2, No murmur Abdomen/GI:Soft, Non tender, Bowel sounds present Extremities/Musculoskeletal:normal inspection, no edema Neurologic/Psych:AAOX3, grossly no focal neurological deficits Skin: normal color, warm Results & Data Results & Data ([facility]) Vital Signs (Past 12 Hours) Vital Signs Temp Pulse Pulse Resp BP Pulse Ox O2 Del Method 04/07/22 12:40 36.9 C 80 18 122/83 95 Room Air 04/07/22 09:35 Room Air 04/07/22 09:09 36.9 C 67 18 102/66 97 Room Air 04/07/22 07:48 73 04/07/22 04:00 36.4 C L 68 18 114/70 96 Room Air Laboratory Results Short CBC 04/06/22 04/07/22 Range/Units 16:24 06:00 WBC 11.09 H 8.15 (4.8-10.8) K/ul Hgb 11.8 L 11.4 L (14.0-18.0) g/dl Hct 37.3 L 35.5 L (40.1-51.0) % Plt Count 343 317 (130-400) K/uL BMP 04/06/22 04/07/22 16:24 06:00 Sodium 135 L 140 Potassium 3.6 3.8 Chloride 102 105 Carbon Dioxide 24 30 BUN 21 23 Creatinine 0.81 0.73 Glucose 155 H 93 Calcium 9.4 8.9 Liver Function 04/06/22 Range/Units 16:24 Total Bilirubin 0.3 (0.2-1.0) mg/dl AST 13 (13-39) U/L ALT 16 (7-52) U/L Alkaline Phosphatase 70 (34-104) U/L Albumin 3.5 (3.4-5.0) gm/dl
--- NOTE | 2022-04-07 15:17 | Electrocardiogram Report ---
Test Reason : Blood Pressure : / mmHG Vent. Rate : 083 BPM Atrial Rate : 083 BPM P-R Int : 174 ms QRS Dur : 088 ms QT Int : 392 ms P-R-T Axes : 040 004 101 degrees QTc Int : 460 ms Sinus rhythm with Premature atrial complexes Low voltage QRS Abnormal ECG When compared with ECG of 02-APR-2022 11:49, No significant change was found Confirmed by Skyler Calloway ([id number]) on 04/07/2022 3:16:45 PM Referred By: Anahy Grayson Confirmed By:Skyler Calloway
--- NOTE | 2022-04-07 15:25 | Electrocardiogram Report ---
Test Reason : Blood Pressure : / mmHG Vent. Rate : 079 BPM Atrial Rate : 079 BPM P-R Int : 178 ms QRS Dur : 090 ms QT Int : 430 ms P-R-T Axes : 055 056 099 degrees QTc Int : 493 ms Sinus rhythm with occasional Premature atrial complexes with occasional Premature ventricular complex es Prolonged QT Abnormal ECG When compared with ECG of 06-APR-2022 16:16, (unconfirmed) Premature ventricular complexes are now Present Premature atrial complexes are no longer Present Confirmed by Skyler Calloway ([id number]) on 04/07/2022 3:25:26 PM Referred By: Anahy Grayson Confirmed By:Skyler Calloway
--- NOTE | 2022-04-07 15:30 | Electrocardiogram Report ---
Test Reason : Blood Pressure : / mmHG Vent. Rate : 071 BPM Atrial Rate : 071 BPM P-R Int : 184 ms QRS Dur : 090 ms QT Int : 424 ms P-R-T Axes : 047 064 105 degrees QTc Int : 460 ms Normal sinus rhythm Nonspecific T wave abnormality Prolonged QT Abnormal ECG When compared with ECG of 06-APR-2022 23:48, (unconfirmed) Premature ventricular complexes are no longer Present Confirmed by Skyler Calloway ([id number]) on 04/07/2022 3:29:51 PM Referred By: Anahy Grayson Confirmed By:Skyler Calloway
[2022-04-07] MEDS ORDERED: OPTIRAY 350 100ml IV ONE (16:25)
--- NOTE | 2022-04-07 16:28 | CT Scan Report ---
CT head/brain wo/w con CLINICAL HISTORY: syncope, rule out mets TECHNIQUE: Contiguous axial CT images of the head from the base of the skull to the vertex before and after intravenous administration of IV contrast and submitted for interpretation. Automated dose low ering techniques and/or adjustment according to patient size were utilized for this examination. CT DOSE: 1382.10 mGy.cm COMPARISON: Comparison is made to CT head 12/09/2006 and MRI brain 04/03/2019 FINDINGS: The ventricles, basal cisterns, and cerebral sulci are normal. There is no acute intracranial hemorrh age or evidence of acute territorial infarction. Neither mass effect, shift of the midline structures , nor abnormal extra-axial fluid collections are shown. No abnormal enhancement is seen. Left maxillary sinus disease is seen. The orbits appear normal. There are no acute fractures of the calvaria or scalp swelling. IMPRESSION: No acute abnormality, in particular no evidence of vasogenic edema or abnormal enhancemen t to suggest intracranial metastasis. Of note, MRI is a more sensitive modality for intracranial meta stasis. ACT 112: Negative or not required by law. Electronically signed by: Ney Small M.D. 04/07/2022 4:25 PM
[2022-04-07] MEDS: LOSARTAN POTASSIUM 25 MG TAB PO SCH (20:00)
[2022-04-07] MEDS: ROSUVASTATIN CALCIUM 5 MG TAB PO SCH (20:00)
[2022-04-07] MEDS: amLODIPine BESYLATE 5 MG TAB PO SCH (20:01)
[2022-04-07] MEDS: ENOXAPARIN INJ 40 MG/0.4 ML SYR SQ SCH (20:02)
[2022-04-08 06:41] LABS: BUN Creatinine Ratio 34.9 (10-20); C Reactive Protein 3.59 mg/dl (0-0.5); Calcium 9.1 mg/dl (8.5-10.1); Creatinine Clr Calc Pharmacy 138.3 ml/min; Est GFR (African American) 125.9 ml/min; Est GFR (Non-African American) 108.6 ml/min; Potassium 3.7 mmol/L (3.5-5.1)
[2022-04-08 06:42] LABS: Hematocrit (blood only) 34.2 % (40.1-51.0); Hemoglobin 10.8 g/dl (14.0-18.0); Mean Corpuscular Hemoglobin 27.5 pg (25.0-34.0); Mean Corpuscular Hgb Conc 31.6 g/dL (32.0-36.0); Mean Platelet Volume 10.2 fL (9.4-12.4); Platelet Count 294 K/uL (130-400); RDW Coefficient of Variation 15.7 % (11.5-14.5); Red Blood Count 3.93 M/uL (4.63-6.08)
[2022-04-08] MEDS: AMOXICILLIN/CLAVULANATE 875 MG TAB PO SCH (07:53)
[2022-04-08] MEDS: SILDENAFIL CITRATE 20 MG TABLET PO SCH ×2 (07:53→12:12)
[2022-04-08] MEDS: CLOPIDOGREL BISULFATE 75 MG TAB PO SCH (07:54)
[2022-04-08] MEDS: ASPIRIN 81 MG ECTAB PO SCH (07:54)
[2022-04-08] MEDS: ATENOLOL 25 MG TABLET PO SCH (07:54)
[2022-04-08] MEDS: FUROSEMIDE 20 MG TAB PO SCH (07:54)
[2022-04-08] MEDS: predniSONE 10 MG TABLET PO SCH (07:55)
[2022-04-08] MEDS: FOLIC ACID 1 MG TAB PO SCH (07:55)
[2022-04-08] MEDS: PANTOprazole 40 MG TAB PO SCH (07:55)
[2022-04-08] MEDS: MULTIVITAMIN TAB PO SCH (07:55)
[2022-04-08] MEDS: DULoxetine HCL 30 MG CAP PO SCH (07:56)
--- NOTE | 2022-04-08 07:56 | Electrocardiogram Report ---
Test Reason : Blood Pressure : / mmHG Vent. Rate : 077 BPM Atrial Rate : 077 BPM P-R Int : 192 ms QRS Dur : 098 ms QT Int : 404 ms P-R-T Axes : 053 051 099 degrees QTc Int : 457 ms Sinus rhythm with Premature atrial complexes Otherwise normal ECG When compared with ECG of 07-APR-2022 06:38, Premature atrial complexes are now Present Confirmed by Logan Staley ([id number]) on 04/08/2022 7:56:44 AM Referred By: Anahy Grayson Confirmed By:Logan Staley
--- NOTE | 2022-04-08 08:50 | Cardiology Consultation ---
Date of Consultation April 08, 2022 History of Present Illness Attending Physician: Vianca Natarajan MD History of Present Illness History includes: 1.Nonobstructive CAD per cardiac catheterization 04/20/2021 at [facility] with Dr. Glasgow.Patent coronary anatomy, RCA appears to have a nonobstructive ulcerated plaque in its mid segment, treated medically, added plavix 2.Mildly reduced LV systolic function per echo 04/05/2021 [facility], LVEF 46% per recent echo 07/2021. Intolerant of metoprolol (rash) 3.Frequent PSVT, 14.9% per [facility] 06/2021 4.Multiple pulmonary nodules noted on CTA of the chest 03/2021- following with Dr. Cuevas, pulmonary 5.History of IV drug use 6.Rheumatoid arthritis on Leflunomide and chronic corticosteroid use 7.Hepatitis-C status post treatment 8.Severe Raynaud's disease with gangrene of the 4th finger, following with rheum, on amlodipine and Revatio. 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 c.Reports exposure to asbestos while currently working in [employer]- following with Pulmonary, status post lung biopsy Allergies Allergy/AdvReac Type Severity Reaction Status Date / Time No Known Allergies Allergy Unverified 04/06/22 20:49 Home Medications Medication Instructions Recorded Confirmed Type aspirin 81 mg tablet,delayed 81 mg PO DAILY 04/04/21 04/06/22 History release (Bob Low Dose Aspirin) folic acid 1 mg tablet 1 mg PO DAILY 04/04/21 04/06/22 History omeprazole 40 mg capsule,delayed 40 mg PO DAILY 04/04/21 04/06/22 History release furosemide 20 mg tablet 20 mg PO QAM #30 tabs 04/08/21 04/06/22 Rx losartan 25 mg tablet 12.5 mg PO QPM #30 tabs 04/08/21 04/06/22 Rx amlodipine 5 mg tablet 5 mg PO QPM 08/27/21 04/06/22 History clopidogrel 75 mg tablet 75 mg PO DAILY 08/27/21 04/06/22 History nitroglycerin 0.4 mg sublingual 0.4 mg sublingual .PRN/UD PRN 08/27/21 04/06/22 History tablet Chest Pain prednisone 10 mg tablet 10 mg PO .TAPER UD 08/27/21 04/06/22 History rosuvastatin 5 mg tablet 5 mg PO QPM 08/27/21 04/06/22 History sildenafil (pulm.hypertension) 20 20 mg PO BID 08/27/21 04/06/22 History mg tablet amoxicillin 875 mg-potassium 1 tab PO BID 04/06/22 04/06/22 History clavulanate 125 mg tablet atenolol 25 mg tablet 25 mg PO AMHS 04/06/22 04/06/22 History duloxetine 30 mg capsule,delayed 30 mg PO DAILY 04/06/22 04/06/22 History release etanercept 50 mg/mL (1 mL) 50 mg subcut .QWEEK 04/06/22 04/06/22 History subcutaneous syringe (Enbrel) hydrocodone 7.5 mg-acetaminophen 1 tab PO Q8 PRN Pain 04/06/22 04/06/22 History 325 mg tablet sildenafil (pulm.hypertension) 20 40 mg PO HS 04/06/22 04/06/22 History mg tablet tiotropium bromide 2.5 2 inh inhalation DAILY 04/06/22 04/06/22 History mcg/actuation mist for inhalation (Spiriva Respimat) Patient History Medical History Chronic steroid use Erectile dysfunction GERD (gastroesophageal reflux disease) Long-term use of high-risk medication Pre-diabetes Rheumatoid arthritis Tobacco use disorder Surgical History No pertinent past surgical history Family History Other Heart disease Social History Smoking Status: Former smoker Tobacco Type: Cigarettes Cigarettes Per Day: 8-10; Second Hand Exposure: Yes; Do You Dip or Chew Tobacco: No; Hx Alcohol Use: No Hx Substance Use: No Preferred Language: Citizen [place] Communication Ability: Effective [place]inder Required: No Beliefs That Will Affect Care: None Current Living Situation: Significant Other Current Living Situation Comment: girlfriend Other Information That Helps Us Care for You: No Feels Safe at Home: Yes Safety Concerns: Feels Safe At This Time Assistive Devices: Cane and Walker Results & Data ([facility]) Vital Signs (Past 12 Hours) Vital Signs Temp Pulse Pulse Resp BP Pulse Ox Pulse Ox 04/08/22 07:09 79 04/08/22 03:02 37.0 C 79 20 116/72 96 04/08/22 00:31 78 04/08/22 00:29 96 O2 Del Method O2 Del Method 04/08/22 07:09 04/08/22 03:02 Room Air 04/08/22 00:31 04/08/22 00:29 Room Air
[2022-04-08] MEDS: HYDROCODONE/ACETAMINOPHEN 7.5/325MG TAB PO PRN (08:57)
[2022-04-08] MEDS: UMECLIDINIUM BROMIDE 62.5MCG/BLISTER 7 PUFFS/INHALER INH SCH (08:57)
--- NOTE | 2022-04-08 09:55 | Cardiology Progress Note ---
Date of Service April 08, 2022 Assessment & Plan (1) CAD (coronary artery disease): (2) HFrEF (heart failure with reduced ejection fraction): (3) Syncope and collapse: (4) Chest pain: (5) SOB (shortness of breath): (6) Elevated troponin: (7) Lung nodules: (8) COVID: Plan Complex medical patient. Echocardiogram is unchanged from previous. He has what appears to be chronically elevated cardiac troponins with no significant change since 2020. I would recommend continued supportive care and treatment for his COVID. On telemetry he has sinus rhythm with PACs. I do not believe any additional cardiac testing is indicated at this time. Admission and Anticipated Discharge Date Admission Date: April 06, 2022 Subjective The patient has been transferred isolation due to COVID status Review of Systems Review of Systems: Review of Systems: See HPI for pertinent positives. All other 10 point review of systems are negative. Physical Exam Physical Exam: The patient is in COVID isolation and per protocol was not examined. Results & Data ([facility]) Vital Signs (Past 12 Hours) Vital Signs Temp Pulse Pulse Resp BP Pulse Ox Pulse Ox 04/08/22 07:09 79 04/08/22 03:02 37.0 C 79 20 116/72 96 04/08/22 00:31 78 04/08/22 00:29 96 O2 Del Method O2 Del Method 04/08/22 07:09 04/08/22 03:02 Room Air 04/08/22 00:31 04/08/22 00:29 Room Air Laboratory Results Laboratory Results - last 24 hr 04/07/22 04/07/22 04/07/22 10:58 17:12 17:27 WBC RBC Hgb Hct MCV MCH MCHC RDW Std Deviation RDW Coeff of Alex Plt Count MPV Sodium Potassium Chloride Carbon Dioxide Anion Gap BUN Creatinine Est Cr Clr Drug Dosing Est GFR ( Amer) Est GFR (Non-Af Amer) BUN/Creatinine Ratio Glucose POC Glucose 128 H Calcium Magnesium Troponin I High Sens 26.4 H 17.8 D C-Reactive Protein Procalcitonin 04/08/22 04/08/22 04/08/22 05:42 05:42 05:42 WBC 8.90 RBC 3.93 L Hgb 10.8 L Hct 34.2 L MCV 87.0 MCH 27.5 MCHC 31.6 L RDW Std Deviation 50.0 H RDW Coeff of Alex 15.7 H Plt Count 294 MPV 10.2 Sodium 137 Potassium 3.7 Chloride 104 Carbon Dioxide 28 Anion Gap 5 BUN 22 Creatinine 0.63 Est Cr Clr Drug Dosing 138.3 Est GFR ( Amer) 125.9 Est GFR (Non-Af Amer) 108.6 BUN/Creatinine Ratio 34.9 H Glucose 99 POC Glucose Calcium 9.1 Magnesium 2.0 Troponin I High Sens C-Reactive Protein 3.59 H Procalcitonin < 0.05 Medications Administered Current Inpatient Medications Acetaminophen (Acetaminophen 325 Mg Tab) 650 mg PO Q4H PRN PRN Reason: Pain or Fever Stop: 05/06/22 22:20 Hydrocodone Bitart/Acetaminophen (Hydrocodone/Acetaminophen 7.5/325mg Tab) 1 t ab PO TID PRN PRN Reason: Pain Stop: 04/20/22 22:20 Last Admin: 04/08/22 08:57 Dose: 1 tab Amlodipine Besylate (Amlodipine Besylate 5 Mg Tab) 5 mg PO QPM MAIRA Stop: 05/06/22 22:20 Last Admin: 04/07/22 20:01 Dose: 5 mg Amoxicillin/Clavulanate Potassium (Amoxicillin/Clavulanate 875 Mg Tab) 1 tab PO BID MAIRA Stop: 04/13/22 22:59 Last Admin: 04/08/22 07:53 Dose: 1 tab Aspirin (Aspirin 81 Mg Ectab) 81 mg PO DAILY MAIRA Stop: 05/07/22 08:59 Last Admin: 04/08/22 07:54 Dose: 81 mg Atenolol (Atenolol 25 Mg Tablet) 25 mg PO BID MAIRA Stop: 05/06/22 22:20 Last Admin: 04/08/22 07:54 Dose: 25 mg Clopidogrel Bisulfate (Clopidogrel Bisulfate 75 Mg Tab) 75 mg PO DAILY MAIRA Stop: 05/07/22 08:59 Last Admin: 04/08/22 07:54 Dose: 75 mg Diclofenac Sodium (Diclofenac Sod 1% Gel 100 Gm Tube) 1 gm EXT BID PRN; Protocol PRN Reason: joint pain Stop: 05/06/22 22:20 Duloxetine HCl (Duloxetine Hcl 30 Mg Cap) 30 mg PO DAILY MAIRA Stop: 05/07/22 08:59 Last Admin: 04/08/22 07:56 Dose: 30 mg Enoxaparin Sodium (Enoxaparin Inj 40 Mg/0.4 Ml Syr) 40 mg SQ Q24H MAIRA Stop: 05/06/22 20:59 Last Admin: 04/07/22 20:02 Dose: Not Given Folic Acid (Folic Acid 1 Mg Tab) 1 mg PO DAILY MAIRA Stop: 05/07/22 08:59 Last Admin: 04/08/22 07:55 Dose: 1 mg Furosemide (Furosemide 20 Mg Tab) 20 mg PO QAM MAIRA Stop: 05/07/22 08:59 Last Admin: 04/08/22 07:54 Dose: 20 mg Levalbuterol HCl (Levalbuterol Hcl 1.25 Mg/3 Ml Neb) 1.25 mg NEB Q4H PRN; Protocol PRN Reason: Shortness Of Breath Or Wheezing Stop: 05/06/22 22:20 Losartan Potassium (Losartan Potassium 25 Mg Tab) 12.5 mg PO QPM MAIRA Stop: 05/06/22 22:20 Last Admin: 04/07/22 20:00 Dose: 12.5 mg Multivitamins (Multivitamin Tab) 1 tab PO DAILY MAIRA Stop: 05/07/22 08:59 Last Admin: 04/08/22 07:55 Dose: 1 tab Pantoprazole Sodium (Pantoprazole 40 Mg Tab) 40 mg PO DAILY MAIRA Stop: 05/07/22 08:59 Last Admin: 04/08/22 07:55 Dose: 40 mg Polyethylene Glycol (Polyethylene (Miralax) 17 Gm Pack) 17 gm PO DAILY PRN PRN Reason: Constipation Stop: 05/06/22 22:20 Prednisone (Prednisone 10 Mg Tablet) 10 mg PO DAILY MAIRA Stop: 05/07/22 08:59 Last Admin: 04/08/22 07:55 Dose: 10 mg Rosuvastatin Calcium (Rosuvastatin Calcium 5 Mg Tab) 5 mg PO QPM MAIRA Stop: 05/06/22 22:20 Last Admin: 04/07/22 20:00 Dose: 5 mg Sildenafil Citrate (Sildenafil Citrate 20 Mg Tablet) 20 mg PO TID MAIRA Stop: 05/06/22 22:20 Last Admin: 04/08/22 07:53 Dose: 20 mg Umeclidinium [place] (Umeclidinium [place] 62.5mcg/Blister 7 Puffs/Inhaler) 1 puffs INH DAILY MAIRA Stop: 05/07/22 08:59 Last Admin: 04/08/22 08:57 Dose: 1 puffs
--- NOTE | 2022-04-08 11:35 | Hospitalist Progress Note ---
Date of Service April 08, 2022 Assessment & Plan (1) Syncope and collapse: Plan: Patient is a 57 yr male presents with ongoing shortness of breath and some on and off chest tightness and questionable syncopal episode today. Chest pain/Dyspnea Likely Multifactorial: DD: Pulmonary vascular congestion, recent COVID, H/O Nonobstructive CAD Mild troponin elevation--thought to be chronic -CXR:Cardiomegaly with mild central pulmonary vascular congestion without overt edema. -ECHO: No change compared to prior study on 04/05/2021. Normal LV chamber size and wall thickness. Mildly reduced LV systolic function with mild to moderate global hypokinesis, EF 40 to 45%. Left atrium is mildly dilated. Grade 2 diastolic dysfunction. Mild mitral vegetation. -Will Obtain records from [facility]: Had CTA yesterday -Continue home medications losartan, atenolol, aspirin and Plavix Appreciate cardiology input and recommendation Serial troponins are negative for any ACS. No EKG changes and echo remains unchanged No cardiac symptoms and he will be discharged home this afternoon Lung Lesions Pulmonary nodules have not grown in size when compared to prior CT as per patient H/O smoking H/O COVID in Jan H/O exposure to pesticides, asbestos Lung lesion was first found in March 2021 Inconclusive biopsy from May 2021 Has had a CAT scan with contrast in [facility] and waiting for the records to be transferred Denies any significant symptoms of cough, hemoptysis or shortness of breath Will have follow-up appointment with [facility] pulmonary as an outpatient as soon as possible We will get 2 steps O2 saturation prior to discharge today COVID 19 Infection --- not vaccinated H/O COVID in Jan 2022 S/P Paxlovid COVID testing Positive on 04/06/22 ? Reinfection given symptomatic CT chest pending-from [facility] CRP is minimally high at 3.59 and procalcitonin has been negative Saturating well on room air We will ge 2 step O2 saturation prior to discharge today Advised to follow quarantine for about 8 more days at home Syncope Obtain CT hea-has been negative d Check orthostatics-ambulating without any symptoms Monitor for arrhythmia-no arrhythmias Wants to go home and will be sent home H/O Chronic systolic CHF No overt signs of volume overload Continue home diuretics Monitor volume status Cardiology on board -no change in his medications and no further studies Hyperlipidemia: On statin H/O Rheumatoid arthritis: Previously hydroxychloroquine--was discontinued due to QTC prolongation Currently only steroids Planned to started on Enbrel Follows with rheumatology as outpatient H/O heavy drug use. H/O hepatitis C S/P treatment H/O Severe Raynaud disease with gangrene in the fourth finger: On amlodipine and Revatio. Prediabetes HbA1C 6.0 Hypertension: Continue losartan, atenolol, amlodipine Monitor Depression: on Duloxetine. Peripheral artery disease: On aspirin, Plavix, and statin GERD on PPI DVT Px: Lovenox SQ Code Status Full Code Discussed with the significant other and he will be discharged home this afternoon Admission and Anticipated Discharge Date Admission Date: April 06, 2022 Subjective 04/08/2022 The patient was seen and examined in medical telemetry unit and in the COVID room He has been feeling much better and complains to have a few nonspecific symptoms like back pain and sore throat No cough, no shortness of breath, no chest pain and/or palpitation Has been saturating normally on room air Review of Systems Review of Systems: All systems reviewed and are unremarkable except as noted below Physical Exam Physical Exam: Lying in bed comfortably Constitutional: well developed, well nourished, + ill appearing and + obese Eyes: PERRL, conjunctivae normal, anicteric sclerae ENMT: external ear and nose normal, oropharynx normal Neck: trachea midline, no thyromegaly Respiratory: no respiratory distress Auscultation: + diminished lung sounds; no crackles and no wheezes Cardiovascular: Rate/Rhythm: regular rate and regular rhythm; not tachycardic Heart Sounds: normal S1 and normal S2; no murmur Extremities: no edema Gastrointestinal (Abdomen): Inspection/Auscultation: normal bowel sounds; abdomen not distended Percussion/Palpation: abdomen soft; abdomen nontender Musculoskeletal: No acute arthritis in any joint Neurologic: Alert, awake and oriented x3. No focal sensory or no motor deficit appreciated Lymphatic: no cervical or axillary lymphadenopathy Results & Data Results & Data ([facility]) Vital Signs (Past 12 Hours) Vital Signs Temp Pulse Pulse Resp BP Pulse Ox Pulse Ox 04/08/22 07:09 79 04/08/22 03:02 37.0 C 79 20 116/72 96 04/08/22 00:31 78 04/08/22 00:29 96 O2 Del Method O2 Del Method 11/12/22 07:09 04/08/22 03:02 Room Air 04/08/22 00:31 04/08/22 00:29 Room Air Laboratory Results Short CBC 04/08/22 Range/Units 05:42 WBC 8.90 (4.8-10.8) K/ul Hgb 10.8 L (14.0-18.0) g/dl Hct 34.2 L (40.1-51.0) % Plt Count 294 (130-400) K/uL BMP 04/08/22 05:42 Sodium 137 Potassium 3.7 Chloride 104 Carbon Dioxide 28 BUN 22 Creatinine 0.63 Glucose 99 Calcium 9.1 Medications Administered Current Inpatient Medications Acetaminophen (Acetaminophen 325 Mg Tab) 650 mg PO Q4H PRN PRN Reason: Pain or Fever Stop: 05/06/22 22:20 Hydrocodone Bitart/Acetaminophen (Hydrocodone/Acetaminophen 7.5/325mg Tab) 1 tab PO TID PRN PRN Reason: Pain Stop: 04/20/22 22:20 Last Admin: 04/08/22 08:57 Dose: 1 tab Amlodipine Besylate (Amlodipine Besylate 5 Mg Tab) 5 mg PO QPM MAIRA Stop: 05/06/22 22:20 Last Admin: 04/07/22 20:01 Dose: 5 mg Amoxicillin/Clavulanate Potassium (Amoxicillin/Clavulanate 875 Mg Tab) 1 tab PO BID MAIRA Stop: 04/13/22 22:59 Last Admin: 04/08/22 07:53 Dose: 1 tab Aspirin (Aspirin 81 Mg Ectab) 81 mg PO DAILY MAIRA Stop: 05/07/22 08:59 Last Admin: 04/08/22 07:54 Dose: 81 mg Atenolol (Atenolol 25 Mg Tablet) 25 mg PO BID MAIRA Stop: 05/06/22 22:20 Last Admin: 04/08/22 07:54 Dose: 25 mg Clopidogrel Bisulfate (Clopidogrel Bisulfate 75 Mg Tab) 75 mg PO DAILY MAIRA Stop: 05/07/22 08:59 Last Admin: 04/08/22 07:54 Dose: 75 mg Diclofenac Sodium (Diclofenac Sod 1% Gel 100 Gm Tube) 1 gm EXT BID PRN; Protocol PRN Reason: joint pain Stop: 05/06/22 22:20 Duloxetine HCl (Duloxetine Hcl 30 Mg Cap) 30 mg PO DAILY MAIRA Stop: 05/07/22 08:59 Last Admin: 04/08/22 07:56 Dose: 30 mg Enoxaparin Sodium (Enoxaparin Inj 40 Mg/0.4 Ml Syr) 40 mg SQ Q24H MAIRA Stop: 05/06/22 20:59 Last Admin: 04/07/22 20:02 Dose: Not Given Folic Acid (Folic Acid 1 Mg Tab) 1 mg PO DAILY MAIRA Stop: 05/07/22 08:59 Last Admin: 04/08/22 07:55 Dose: 1 mg Furosemide (Furosemide 20 Mg Tab) 20 mg PO QAM MAIRA Stop: 05/07/22 08:59 Last Admin: 04/08/22 07:54 Dose: 20 mg Levalbuterol HCl (Levalbuterol Hcl 1.25 Mg/3 Ml Neb) 1.25 mg NEB Q4H PRN; Protocol PRN Reason: Shortness Of Breath Or Wheezing Stop: 05/06/22 22:20 Losartan Potassium (Losartan Potassium 25 Mg Tab) 12.5 mg PO QPM MAIRA Stop: 05/06/22 22:20 Last Admin: 04/07/22 20:00 Dose: 12.5 mg Multivitamins (Multivitamin Tab) 1 tab PO DAILY MAIRA Stop: 05/07/22 08:59 Last Admin: 04/08/22 07:55 Dose: 1 tab Pantoprazole Sodium (Pantoprazole 40 Mg Tab) 40 mg PO DAILY MAIRA Stop: 05/07/22 08:59 Last Admin: 04/08/22 07:55 Dose: 40 mg Polyethylene Glycol (Polyethylene (Miralax) 17 Gm Pack) 17 gm PO DAILY PRN PRN Reason: Constipation Stop: 05/06/22 22:20 Prednisone (Prednisone 10 Mg Tablet) 10 mg PO DAILY MAIRA Stop: 05/07/22 08:59 Last Admin: 04/08/22 07:55 Dose: 10 mg Rosuvastatin Calcium (Rosuvastatin Calcium 5 Mg Tab) 5 mg PO QPM MAIRA Stop: 05/06/22 22:20 Last Admin: 04/07/22 20:00 Dose: 5 mg Sildenafil Citrate (Sildenafil Citrate 20 Mg Tablet) 20 mg PO TID MAIRA Stop: 05/06/22 22:20 Last Admin: 04/08/22 07:53 Dose: 20 mg Umeclidinium [place] (Umeclidinium [place] 62.5mcg/Blister 7 Puffs/Inhaler) 1 puffs INH DAILY MAIRA Stop: 05/07/22 08:59 Last Admin: 04/08/22 08:57 Dose: 1 puffs
--- NOTE | 2022-04-09 07:37 | Discharge Summary ---
Date of Service April 08, 2022 Admission HPI Per Admitting Provider DICTATED BY:Kalia Watson MD DATE OF ADMISSION: 04/06/2022. CHIEF COMPLAINT: Shortness of breath, chest tightness, and an episode of possible syncope yesterday. HISTORY OF PRESENT ILLNESS: This is a 57-year-old male with past medical history significant for nonobstructive CAD per cardiac catheterization in March 2021, mild reduced left ventricular systolic function per EF of 46%, intolerant to metoprolol with rash frequent, paroxysmal SVT on per ZIO 06/2021, multiple pulmonary nodules noted on the CTA chest done in March 2021, following with pulmonary, history of IV drug abuse, history of rheumatoid arthritis, recently was found to be on prolonged QT and advised to stop hydroxychloroquine and he says he stopped all RA medications except prednisone. Currently, he is only on prednisone and there is a plan to restart Enbrel. History of hepatitis C, status post treatment, history of severe Raynaud's disease with gangrene of the fourth finger, follows with Rheumatology, on amlodipine and Revatio. Chronic tobacco abuse, history of exposure to pesticides, question of possible exposure to asbestos. As per the Epic notes, he had tuberculosis testing and coccidioides testing negative in March 2021. He had left lung fine needle aspiration and biopsy 05/2021, looks like this was nondiagnostic. History of prediabetes, peripheral artery disease, GERD, degenerative disk disease, immunodeficiency due to drugs, history of erectile dysfunction, depression and anxiety. Presents with shortness of breath and chest tightness. The patient does state he had COVID in mid of January and he took Paxlovid. His main symptoms from covid were a couple of days of nausea, diarrhea,headache and then he had fatigue, which lasted for 2 weeks. In the last 2 weeks, he is getting short of breath even at rest and with minimal exertion and he had some chest tightness too, but that is resolved now. The day before yesterday, he had 14 hours work and slept at 11:00 p.m. and woke up at 3:30 a.m. and went to bathroom and when sitting on the commode, he was not sure, but thinks he might have slept, but he might have passed out, he is not sure, but he found himself on the floor near the commode 3-4 hours later and initially he was a little confused. He told his . At that time, it was like 9:30 a.m. and then his took him to the hospital yesterday at [facility]. Seems to be they did all the workup and they wanted to admit him there, but he seemed to have declined and went back home and he called his PCP's office today and they advised to come back here for additional evaluation. Seems ER saw the report the showed on the CTA ches done at [facility] , that showed there is no PE, but showed some lung masses, suspicious lung lesions, ER is trying to get the records from the [facility]. The patient is resting comfortably, hemodynamically stable currently. Saturating okay on room air, able to talk in complete sentences. His mother is in the room. He says he has some mild cough, occasional light yellowish greenish phlegm. Denies any fever or chills. Appetite is okay. He has sometimes slight trouble swallowing, but he is doing okay. Denies any headache. No blurred visions, no earache, no runny nose. He has some sore throat. No nausea, no abdominal pain. Normal bowel and bladder movements. No swelling in the legs. Admission Exam Per Admitting Provider GENERAL: The patient is of moderate build, not in acute distress. VITAL SIGNS: Temperature 36.8, pulse 86, respiratory rate 20, blood pressure 98/79, oxygen 95% on room air. HEENT: Pupils equal, round, and reactive to light. Oral mucosa moist. NECK: No JVD, no neck masses. CARDIOVASCULAR: S1 and S2 heard. Regular rate and rhythm. No murmur, no gallop. RESPIRATORY SYSTEM: Normal AP diameter. No accessory muscle use. No wheezing, no crackles. ABDOMEN: Soft, bowel sounds present, nontender, no distention. CENTRAL NERVOUS SYSTEM: Cranial nerves II-XII grossly intact, nonfocal. EXTREMITIES: No edema, no erythema. Principal Diagnosis Syncope and collapse-no apparent cause identified, chest pain-no ACS, nonobstructive CAD, chronic CHF systolic, lung lesions. COVID-19 virus infection Discharge Exam Lying in bed comfortably Constitutional well developed, well nourished, + ill appearing and + obese Eyes PERRL, conjunctivae normal, anicteric sclerae ENMT external ear and nose normal, oropharynx normal Neck trachea midline, no thyromegaly Respiratory no respiratory distress Auscultation: + diminished lung sounds; no crackles and no wheezes Cardiovascular Rate/Rhythm: regular rate and regular rhythm; not tachycardic Heart Sounds: normal S1 and normal S2; no murmur Extremities: no edema Gastrointestinal (Abdomen) Inspection/Auscultation: normal bowel sounds; abdomen not distended Percussion/Palpation: abdomen soft; abdomen nontender Lymphatic no cervical or axillary lymphadenopathy Discharge Data Allergies Allergy/AdvReac Type Severity Reaction Status Date / Time No Known Allergies Allergy Unverified 04/06/22 20:49 Consultations 04/06/22 19:14 ED Decision to Admit Stat 04/07/22 08:00 Consult Cardiology Routine Ordered Studies 04/07/22 15:22 CT head/brain wo/w con Routine Hospital Course (1) Syncope and collapse: Patient is a 57 yr male presents with ongoing shortness of breath and some on and off chest tightness and questionable syncopal episode today. Chest pain/Dyspnea Likely Multifactorial: DD: Pulmonary vascular congestion, recent COVID, H/O Nonobstructive CAD Mild troponin elevation--thought to be chronic -CXR:Cardiomegaly with mild central pulmonary vascular congestion without overt edema. -ECHO: No change compared to prior study on 04/05/2021. Normal LV chamber size and wall thickness. Mildly reduced LV systolic function with mild to moderate global hypokinesis, EF 40 to 45%. Left atrium is mildly dilated. Grade 2 diastolic dysfunction. Mild mitral vegetation. -Will Obtain records from [facility] [place]: Had CTA yesterday -Continue home medications losartan, atenolol, aspirin and Plavix Appreciate cardiology input and recommendation Serial troponins are negative for any ACS. No EKG changes and echo remains unchanged No cardiac symptoms and he will be discharged home this afternoon Lung Lesions Pulmonary nodules have not grown in size when compared to prior CT as per patient H/O smoking H/O COVID in Jan H/O exposure to pesticides, asbestos Lung lesion was first found in March 2021 Inconclusive biopsy from May 2021 Has had a CAT scan with contrast in [facility] and waiting for the records to be transferred Denies any significant symptoms of cough, hemoptysis or shortness of breath Will have follow-up appointment with [facility] as an outpatient as soon as possible We will get 2 steps O2 saturation prior to discharge today COVID 19 Infection --- not vaccinated H/O COVID in Jan 2022 S/P Paxlovid COVID testing Positive on 04/06/22 ? Reinfection given symptomatic CT chest pending-from [facility] [place] CRP is minimally high at 3.59 and procalcitonin has been negative Saturating well on room air We will ge 2 step O2 saturation prior to discharge today Advised to follow quarantine for about 8 more days at home Syncope Obtain CT hea-has been negative d Check orthostatics-ambulating without any symptoms Monitor for arrhythmia-no arrhythmias Wants to go home and will be sent home H/O Chronic systolic CHF No overt signs of volume overload Continue home diuretics Monitor volume status Cardiology on board -no change in his medications and no further studies Hyperlipidemia: On statin H/O Rheumatoid arthritis: Previously hydroxychloroquine--was discontinued due to QTC prolongation Currently only steroids Planned to started on Enbrel Follows with rheumatology as outpatient H/O heavy drug use. H/O hepatitis C S/P treatment H/O Severe Raynaud disease with gangrene in the fourth finger: On amlodipine and Revatio. Prediabetes HbA1C 6.0 Hypertension: Continue losartan, atenolol, amlodipine Monitor Depression: on Duloxetine. Peripheral artery disease: On aspirin, Plavix, and statin GERD on PPI DVT Px: Lovenox SQ Code Status Full Code Discussed with the significant other and he will be discharged home this afternoon Total Time Total Time Spent Total Time Spent (In Minutes): 35 minutes Discharge Plan Discharge Items Patient Disposition: Home - Self-Care Reason For Visit: SOB/CHEST TIGHTNESS Discharge Diagnosis: Syncope and collapse-no apparent cause identified, chest pain-no ACS, nonobstructive CAD, chronic CHF systolic, lung lesions. COVID-19 virus infection Condition on Discharge: Fair Activity: Resume your previous activity Non-emergency contact: Primary Care Provider Call non-emergency contact if: you have any medication questions and your symptoms worsen Follow-up/Referrals: Anahy Grayson MD [Primary Care Provider] - (We will call you with an appointment with your PCP within 7 days) Diet: Heart Healthy and Low Sodium (2gm) Addtl Attending Provider Instructions: Please take precautions to avoid fall You need to be quarantined for 8 more days as per CDC guidelines below: Keep appointments with your healthcare providers Take your medications as advised-no change with your medications Will call you with an appointment with outpatient senior informatica developer as soon as possible 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 You should restrict activities outside your home, except for getting medical care. Do not go to work, school, or public areas. Avoid using public transportation, ride-sharing, or taxis. Separate yourself from other people and animals in your home People: As much as possible, you should stay in a specific room and away from other people in your home. Also, you should use a separate bathroom, if available. Animals: You should restrict contact with pets and other animals while you are sick with COVID-19, just like you would around other people. Although there have not been reports of pets or other animals becoming sick with COVID-19, it is still recommended that people sick with COVID-19 limit contact with animals until more information is known about the virus. When possible, have another member of your household care for your animals while you are sick. If you are sick with COVID-19, avoid contact with your pet, including petting, snuggling, being kissed or licked, and sharing food. If you must care for your pet or be around animals while you are sick, wash your hands before and after you interact with pets and wear a face mask. Call ahead before visiting your doctor If you have a medical appointment, call the healthcare provider and tell them that you have or may have COVID-19. This will help the healthcare providers office take steps to keep other people from getting infected or exposed. Wear a face mask You should wear a face mask when you are around other people (e.g., sharing a room or vehicle) or pets and before you enter a healthcare providers office. If you are not able to wear a face mask (for example, because it causes trouble breathing), then people who live with you should not stay in the same room with you, or they should wear a face mask if they enter your room. Cover your coughs and sneezes Cover your mouth and nose with a tissue when you cough or sneeze. Throw used tissues in a lined trash can. Immediately wash your hands with soap and water for at least 20 seconds or, if soap and water are not available, clean your hands with an alcohol-based hand student support counselor that contains at least 60% alcohol. Clean your hands often Wash your hands often with soap and water for at least 20 seconds, especially after blowing your nose, coughing, or sneezing; going to the bathroom; and before eating or preparing food. If soap and water are not readily available, use an alcohol-based hand student support counselor with at least 60% alcohol, covering all surfaces of your hands and rubbing them together until they feel dry. Soap and water are the best option if hands are visibly dirty. Avoid touching your eyes, nose, and mouth with unwashed hands. Avoid sharing personal household items You should not share dishes, drinking glasses, cups, eating utensils, towels, or bedding with other people or pets in your home. After using these items, they should be washed thoroughly with soap and water. Clean all high-touch surfaces everyday High touch surfaces include counters, tabletops, doorknobs, bathroom fixtures, toilets, phones, keyboards, tablets, and bedside tables. Also, clean any surfaces that may have blood, stool, or body fluids on them. Use a household cleaning spray or wipe, according to the label instructions. Labels contain instructions for safe and effective use of the cleaning product including precautions you should take when applying the product, such as wearing gloves and making sure you have good ventilation during use of the product. Monitor your symptoms Seek prompt medical attention if your illness is worsening (e.g., difficulty breathing).Beforeseeking care, call your healthcare provider and tell them that you have, or are being evaluated for, COVID-19. Put on a face mask before you enter the facility. These steps will help the healthcare providers office to keep other people in the office or waiting room from getting infected or exposed. Ask your healthcare provider to call the local or state health department. Persons who are placed under active monitoring or facilitated self- monitoring should follow instructions provided by their local health department or occupational health professionals, as appropriate. When working with your local health department check their available hours. If you have a medical emergency and need to call 911, notify the dispatch kendra butler that you have, or are being evaluated for COVID-19. If possible, put on a face mask before emergency medical services arrive. Discontinuing home isolation Patients with confirmed COVID-19 should remain under home isolation precautions until the risk of secondary transmission to others is thought to be low. The decision to discontinue home isolation precautions should be made on a [id number] basis, in consultation with healthcare providers and state and local health departments. Pending Studies at Discharge: No Stand-Alone Forms: [facility], Smoking Cessation Medications and DC Order Prescriptions: Continued prednisone 10 mg tablet 10 mg PO .TAPER UD Rx Instructions: IS TAKING 20MG DAILY @ PRESENT sildenafil (pulm.hypertension) 20 mg tablet 20 mg PO BID Rx Instructions: Take in AM & NOON clopidogrel 75 mg tablet 75 mg PO DAILY rosuvastatin 5 mg tablet 5 mg PO QPM amlodipine 5 mg tablet 5 mg PO QPM nitroglycerin 0.4 mg tablet, sublingual 0.4 mg sublingual .PRN/UD PRN (Reason: Chest Pain) Rx Instructions: NEEDED FOR CHEST PAIN : ONE TABLET UNDER THE TONGUE EVERY 5 MINUTES UP TO THREE DOSES. omeprazole 40 mg capsule,delayed release(DR/EC) 40 mg PO DAILY folic acid 1 mg tablet 1 mg PO DAILY aspirin [Bob Low Dose Aspirin] 81 mg Tablet,Delayed Release (Dr/Ec) 81 mg PO DAILY losartan 25 mg Tablet 12.5 mg PO QPM Qty: 30 0RF furosemide 20 mg Tablet 20 mg PO QAM Qty: 30 0RF atenolol 25 mg tablet 25 mg PO AMHS duloxetine 30 mg capsule,delayed release(DR/EC) 30 mg PO DAILY Spiriva Respimat 2.5 mcg/actuation mist 2 inh INHALATION DAILY hydrocodone-acetaminophen 7.5-325 mg tablet 1 tab PO Q8 PRN (Reason: Pain) amoxicillin-pot clavulanate 875-125 mg tablet 1 tab PO BID Rx Instructions: Irasema Enbrel 50 mg/mL (1 mL) Syringe 50 mg SUBCUT .QWEEK Rx Instructions: DID NOT START YET sildenafil (pulm.hypertension) 20 mg tablet 40 mg PO HS Discharge Orders: Discharge Order (Routine); Ordered 04/08/22 Ordered By: Vianca Flores/Other Patient Handouts: Prediabetes, 5 Steps for Eating Healthier Admission Data Admit Date/Time: 04/06/22 20:18 Attending Provider: Vianca Natarajan Admit Provider: Kalia Watson Primary Care Provider: Anahy Grayson Other Providers: Kalia Watson ; Alberto Garcia ; Jamie Valente ; Michael Allne ; Guillermo Luque ; Randall Craig ; Fredy De Guzman ; Valentina Ceron ; Aparna Espinal ; Elizabeth Johnson ; Jamie Mclean ; Bruce Hernandez Other Interventions: Discharge Summary Assessment (RN) Last Done: 04/08/22 12:59
== END 2022-04-08 14:26 | disposition home or self-care (01) ==
LOC: 2N 15:28 → ED 15:28 → SUATTDRO 20:18 → 2N 21:57 → 2W 04-07 18:40

== ENCOUNTER 2022-07-05 18:38 | Inpatient (IN) ==
--- NOTE | 2022-07-05 19:02 | ED Triage Note ---
Date of Service July 05, 2022 History of Present Illness This patient was briefly evaluated while in triage. An abbreviated physical exam was performed. This patient is a 57-year-old Male with past medical history of CHF and RA who presents to the ED for evaluation of increased leg swelling, chest pain, and shortness of breath. Physical Exam VITALS: Vitals are noted on the nurse's note and reviewed by myself. Vital signs stable. GENERAL: This is a 57-year-old male, in no acute distress, sitting up in a wheelchair. SKIN: Scabbed over wound on the right anterior lilly. HEART: Regular rate and rhythm without murmurs gallops or rubs. LUNGS: Clear to auscultation bilaterally without wheezes, rales or rhonchi. No retractions or accessory muscle use. EXTREMITIES: 2+ pitting edema. NEURO: Patient was alert and oriented to person place and time. Initial orders for labs and / or imaging were placed and patient was placed in the waiting area until a bed is available. Please see further documentation for the full ED course. MDM / Impression Impression Impression: Congestive heart failure, Atrial fibrillation with rapid ventricular response
--- NOTE | 2022-07-05 19:43 | XRay Report ---
SINGLE VIEW CHEST CLINICAL HISTORY: Atypical chest pain. Dyspnea. FINDINGS: An AP, portable, upright chest radiograph is compared to study dated 04/06/2022 and correla erika with chest CT dated 08/25/2021. The heart is enlarged. Emphysema and chronic interstitial thickeni ng is similar to previous. There is prominence of the pulmonary vascular tear. Emphysema and chronic interstitial thickening is similar to previous. No airspace consolidation or large pleural effusion i s identified. A 2.3 cm nodular density projects over the medial right lower lobe. Left-sided bony nod ules seen on prior chest CT scan are not well assessed by x-ray. No pneumothorax is seen. The skeleta l structures are osteopenic. The bony thorax is grossly intact. 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 IMPRESSION: 1. Cardiomegaly and emphysema prominence of the pulmonary vascular. Correlate clinically for evidence of fluid overload/mild congestive change. 2. There is no airspace consolidation typical for pneumonia or large pleural effusion. 3. A 2.3 cm nodular opacity projects over the medial right lower lung. Left-sided pulmonary nodules s een on prior chest CT scans are not visible on today's x-ray. ACT 112: Negative or not required by law. Electronically signed by: Alcon Roach M.D. 07/05/2022 7:40 PM
[2022-07-05] MEDS ORDERED: FUROSEMIDE 40 MG/4 ML VIAL IV ONE (19:46)
[2022-07-05] MEDS ORDERED: dilTIAZem HCl 5 MG/ML 5 ML VIAL IV STA ×2 (19:46→21:06)
--- NOTE | 2022-07-05 19:55 | Emergency Department Note ---
History of Present Illness General Chief complaint: Shortness of Breath/Dyspnea Stated complaint: SOB, LEGS AND FEET SWOLLEN, JAW PAIN Time Seen by Provider: 07/05/22 19:38 History of Present Illness Maximum Pain Intensity: 6 57-year-old male presents to the emergency department with a 1 day history of swelling to the legs increased heart rate and mild shortness of breath with dyspnea on exertion. Patient has a history of A-fib he is on Plavix patient takes daily Lasix 40 mg he states has been taking every dose. Patient's noticed increased swelling to his legs for the past 2 days with some dyspnea on exertion. Patient denies chest pain. There are no other mitigating or allevia ting factors Home Medications Medication Instructions Recorded Confirmed Type aspirin 81 mg tablet,delayed 81 mg PO DAILY 04/04/21 07/05/22 History release (Bob Low Dose Aspirin) folic acid 1 mg tablet 1 mg PO DAILY 04/04/21 07/05/22 History omeprazole 40 mg capsule,delayed 40 mg PO DAILY 04/04/21 07/05/22 History release furosemide 20 mg tablet 20 mg PO QAM #30 tabs 04/08/21 07/05/22 Rx losartan 25 mg tablet 12.5 mg PO QPM #30 tabs 04/08/21 07/05/22 Rx amlodipine 5 mg tablet 5 mg PO QPM 08/27/21 07/05/22 History clopidogrel 75 mg tablet 75 mg PO DAILY 08/27/21 07/05/22 History nitroglycerin 0.4 mg sublingual 0.4 mg sublingual .PRN/UD PRN 08/27/21 07/05/22 History tablet Chest Pain rosuvastatin 5 mg tablet 5 mg PO QPM 08/27/21 07/05/22 History sildenafil (pulm.hypertension) 20 20 mg PO BID 08/27/21 07/05/22 History mg tablet atenolol 25 mg tablet 25 mg PO AMHS 04/06/22 07/05/22 History etanercept 50 mg/mL (1 mL) 50 mg subcut .QWEEK 04/06/22 07/05/22 History subcutaneous syringe (Enbrel) hydrocodone 7.5 mg-acetaminophen 1 tab PO Q8 PRN Pain 04/06/22 07/05/22 History 325 mg tablet sildenafil (pulm.hypertension) 20 40 mg PO HS 04/06/22 07/05/22 History mg tablet tiotropium bromide 2.5 2 inh inhalation DAILY 04/06/22 07/05/22 History mcg/actuation mist for inhalation (Spiriva Respimat) alendronate 70 mg tablet 70 mg PO WK 07/05/22 07/05/22 History prednisone 1 mg tablet 5 mg PO DAILY 07/05/22 07/05/22 History Allergies Allergy/AdvReac Type Severity Reaction Status Date / Time No Known Allergies Allergy Verified 07/05/22 20:43 Past Med/Surg History Medical History Chronic steroid use Erectile dysfunction GERD (gastroesophageal reflux disease) Long-term use of high-risk medication Pre-diabetes Rheumatoid arthritis Tobacco use disorder Surgical History No pertinent past surgical history Family History Other Heart disease Social History Smoking Status: Never smoker Tobacco Type: Cigarettes Cigarettes Per Day: 8-10; Second Hand Exposure: Yes; Hx Alcohol Use: No Hx Substance Use: No Preferred Language: Kiswahili Communication Ability: Effective Greens Planter Required: No Beliefs That Will Affect Care: None Current Living Situation: Significant Other Current Living Situation Comment: girlfriend Feels Safe at Home: Yes Assistive Devices: Cane and Walker Review of Systems A total of 10 systems reviewed and were otherwise negative Respiratory: + dyspnea and + dyspnea on exertion; no cough Cardiovascular: no chest pain Musculoskeletal: + swelling Physical Exam Vital Signs Vital Signs - 24 hr 07/05/22 18:39 07/05/22 19:53 07/05/22 19:53 Temperature 36.5 C Temperature Source Temporal Artery Scan Pulse Rate 110 H Pulse Rate [Right Finger] 125 H Pulse Rhythm [Right Finger] Regular Respiratory Rate 20 21 Respiratory Effort / Characteristics Non-Labored Spontaneous Spontaneous Respiratory Depth Normal Normal Respiratory Pattern Regular Blood Pressure 130/96 Blood Pressure [Right Arm] 119/81 Blood Pressure Mean 107 Blood Pressure Mean [Right Arm] 93 Blood Pressure Position [Right Arm] Lying Pulse Oximetry 98 97 98 Oxygen Delivery Method Room Air Room Air Room Air Sepsis Recent Fever Within 48 Hours No Sepsis New/Unexplained Change in Mental Status No Sepsis Action Taken by Nursing No Action Required GENERAL: Patient is awake alert in no acute distress patient is resting comfortably and showing no signs of anxiety EYES: The conjunctivae are clear. The pupils are round and reactive. EARS, NOSE, MOUTH AND THROAT: The nose is without any evidence of any deformity. Mucous membranes are moist. Tongue is midline. NECK: The neck is nontender and supple. RESPIRATORY: Normal respiratory effort is noted there is no evidence of wheezing rhonchi or rales CARDIOVASCULAR: Irregularly irregular tachycardic. GASTROINTESTINAL: The abdomen is soft. Abdomen is nontender. PELVIS: The Pelvis is stable. No tenderness to palpation is noted. BACK: No midline tenderness or or step-off noted range of motion in flexion extension as well as rotation no signs of muscle spasm noted MUSCULOSKELETAL/EXTREMITIES: There is no evidence of gross deformity full range of motion is noted in the hips and shoulders. Bilateral lower extremity pitting edema SKIN: There is no obvious evidence of any rash. There are no petechiae, pallor or cyanosis noted. NEUROLOGIC: Patient is awake alert and oriented x3 strength is symmetric Course Reevaluation(s) Reevaluation #1: Patient was started on IV Lasix, IV Cardizem and then required an IV Cardizem drip. Patient has an elevated troponin. Patient is stable without any current chest pain. Time: 21:08 Consultations Consultation #1: This case was discussed with the [facility] for admission. The patient will require admission for rapid A-fib elevated troponin and CHF Time: 21:09 Administered Medications Discontinued Medications Diltiazem HCl (Diltiazem Hcl 5 Mg/Ml 5 Ml Vial) 20 mg IV NOW STA Stop: 07/05/22 19:47 Last Admin: 07/05/22 20:01 Dose: 20 mg Documented By: ESTRELLITA Co-signed By: JORGITO Furosemide (Furosemide 40 Mg/4 Ml Vial) 40 mg IV ONE ONE Stop: 07/05/22 19:47 Last Admin: 07/05/22 20:01 Dose: 40 mg Documented By: ESTRELLITA Critical Care Time Critical Care Time: Yes Total Critical Care Time: 35 I have personally spent greater than 35 minutes of critical care time in the direct management of this patient. This includes bedside care, interpretation of diagnostic studies, and testing, discussion with consultants, patient, and family members, and other required patient management activities. These minutes are in excess of all separately billable procedures. Medical Decision Making Medical Records Attestation: I reviewed the patient's medical records. Home Medications Current Medication List: was personally reviewed by me Laboratory Data Attestation: I reviewed the patient's lab results. Patient has an elevated troponin, elevated BNP, chest x-ray that shows CHF 07/05/22 19:30 07/05/22 19:30 Lab Results 07/05/22 07/05/22 07/05/22 Range/Units 19:30 19:30 19:30 WBC 9.72 (4.8-10.8) K/ul RBC 4.40 L (4.70-6.10) M/uL Hgb 10.8 L (14.0-18.0) g/dl Hct 34.2 L (42.0-52.0) % MCV 77.7 L (80.0-100.0) fL MCH 24.5 L (25.0-34.0) pg MCHC 31.6 L (32.0-36.0) g/dL RDW Std Deviation 48.1 H (36.4-46.3) fL RDW Coeff of Alex 17.1 H (11.5-14.5) % Plt Count 467 H (130-400) K/uL MPV 9.8 (9.4-12.4) fL Immature Gran % (Auto) 0.6 % Neut % (Auto) 75.1 % Lymph % (Auto) 15.2 % [place]upe % (Auto) 7.4 % Eos % (Auto) 1.1 % Baso % (Auto) 0.6 % Neut # (Auto) 7.29 H (1.40-6.50) K/uL Lymph # (Auto) 1.48 (1.2-3.4) K/uL [place] # (Auto) 0.72 H (0.11-0.59) K/uL Eos # (Auto) 0.11 (0-0.50) K/uL Baso # (Auto) 0.06 (0-0.2) K/uL Immature Gran # (Auto) 0.06 (0.01-0.20) K/uL Sodium 142 (136-145) mmol/L Potassium 3.2 L (3.5-5.1) mmol/L Chloride 104 (98-107) mmol/L Carbon Dioxide 29 (21-32) mmol/L Anion Gap 9 (3-11) BUN 26 H (6-23) mg/dl Creatinine 1.21 (0.6-1.4) mg/dl Est Cr Clr Drug Dosing 75.6 ml/min Est GFR ( Amer) 76.0 ml/min Est GFR (Non-Af Amer) 65.6 ml/min BUN/Creatinine Ratio 21.5 H (10-20) Glucose 122 H (70-99(Fasting)) mg/dl Calcium 9.6 (8.5-10.1) mg/dl Total Bilirubin 0.5 (0.2-1.0) mg/dl AST 20 (13-39) U/L ALT 18 (7-52) U/L Alkaline Phosphatase 105 H (34-104) U/L Troponin I High Sens 210.7 H* (0-20) pg/ml B-Natriuretic Peptide 965 H (0-100) pg/ml Total Protein 7.6 (6.0-8.3) gm/dl Albumin 3.8 (3.4-5.0) gm/dl Globulin 3.8 (2.5-4.0) gm/dl Albumin/Globulin Ratio 1.0 (0.9-2) SARS-CoV-2 (PCR) (Negative) Influenza Type A (PCR) (Neg) Influenza Type B (PCR) (Neg) RSV (RT-PCR) (Neg) 07/05/22 Range/Units 19:30 WBC (4.8-10.8) K/ul RBC (4.70-6.10) M/uL Hgb (14.0-18.0) g/dl Hct (42.0-52.0) % MCV (80.0-100.0) fL MCH (25.0-34.0) pg MCHC (32.0-36.0) g/dL RDW Std Deviation (36.4-46.3) fL RDW Coeff of Alex (11.5-14.5) % Plt Count (130-400) K/uL MPV (9.4-12.4) fL Immature Gran % (Auto) % Neut % (Auto) % Lymph % (Auto) % [place] % (Auto) % Eos % (Auto) % Baso % (Auto) % Neut # (Auto) (1.40-6.50) K/uL Lymph # (Auto) (1.2-3.4) K/uL [place] # (Auto) (0.11-0.59) K/uL Eos # (Auto) (0-0.50) K/uL Baso # (Auto) (0-0.2) K/uL Immature Gran # (Auto) (0.01-0.20) K/uL Sodium (136-145) mmol/L Potassium (3.5-5.1) mmol/L Chloride (98-107) mmol/L Carbon Dioxide (21-32) mmol/L Anion Gap (3-11) BUN (6-23) mg/dl Creatinine (0.6-1.4) mg/dl Est Cr Clr Drug Dosing ml/min Est GFR ( Amer) ml/min Est GFR (Non-Af Amer) ml/min BUN/Creatinine Ratio (10-20) Glucose (70-99(Fasting)) mg/dl Calcium (8.5-10.1) mg/dl Total Bilirubin (0.2-1.0) mg/dl AST (13-39) U/L ALT (7-52) U/L Alkaline Phosphatase (34-104) U/L Troponin I High Sens (0-20) pg/ml B-Natriuretic Peptide (0-100) pg/ml Total Protein (6.0-8.3) gm/dl Albumin (3.4-5.0) gm/dl Globulin (2.5-4.0) gm/dl Albumin/Globulin Ratio (0.9-2) SARS-CoV-2 (PCR) NEGATIVE (Negative) Influenza Type A (PCR) Negative (Neg) Influenza Type B (PCR) Negative (Neg) RSV (RT-PCR) Negative (Neg) Imaging Data Attestation: I personally reviewed and interpreted this imaging study as follows: My Impression: Chest x-ray interpreted by me CHF Radiologist's Impression: Chest X-Ray 07/05/22 18:56 SINGLE VIEW CHEST CLINICAL HISTORY: Atypical chest pain. Dyspnea. FINDINGS: An AP, portable, upright chest radiograph is compared to study dated 04/06/2022 and correlated with chest CT dated 08/25/2021. The heart is enlarged. Emphysema and chronic interstitial thickening is similar to previous. There is prominence of the pulmonary vascular tear. Emphysema and chronic interstitial thickening is similar to previous. No airspace consolidation or large pleural effusion is identified. A 2.3 cm nodular density projects over the medial right lower lobe. Left-sided bony nodules seen on prior chest CT scan are not well assessed by x-ray. No pneumothorax is seen. The skeletal structures are osteopenic. The bony thorax is grossly intact. 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 IMPRESSION: 1. Cardiomegaly and emphysema prominence of the pulmonary vascular. Correlate clinically for evidence of fluid overload/mild congestive change. 2. There is no airspace consolidation typical for pneumonia or large pleural effusion. 3. A 2.3 cm nodular opacity projects over the medial right lower lung. Left- sided pulmonary nodules seen on prior chest CT scans are not visible on today's x-ray. ACT 112: Negative or not required by law. Electronically signed by: Alcon Roach M.D. 07/05/2022 7:40 PM ECG Data Attestation: I personally reviewed and interpreted this ECG as follows: Additional Comments: EKG interpreted by me, rapid atrial fibrillation rate of 129 left axis deviation incomplete right bundle branch block poor R wave progression in the precordium no obvious ST segment elevation or depression MDM Narrative Medical decision making differential diagnosis includes CHF, rapid A-fib, pedal edema, electrolyte abnormality, acute coronary syndrome Plan is to check labs, EKG, chest x-ray, give IV diuretic, IV Cardizem External medical records were reviewed by me and appreciated Nursing notes were reviewed by me and appreciated Patient has an elevated troponin, chest x-ray that shows CHF, patient was started on an IV Cardizem drip, IV Lasix, patient is at risk for a cardiopulmonary event and therefore will be admitted Impression & Plan Congestive heart failure, Atrial fibrillation with rapid ventricular response Discharge Plan Visit Data Chief Complaint: Shortness of Breath/Dyspnea Stated Complaint: SOB, LEGS AND FEET SWOLLEN, JAW PAIN ED Provider: Alberto Snowden Discharge Problem: Congestive heart failure, Atrial fibrillation with rapid ventricular response Patient Disposition: Admitted As Inpatient Forms Stand Alone Forms: [facility] Prescriptions Prescriptions: No Action sildenafil (pulm.hypertension) 20 mg tablet 20 mg PO BID Rx Instructions: Take in AM & NOON clopidogrel 75 mg tablet 75 mg PO DAILY rosuvastatin 5 mg tablet 5 mg PO QPM amlodipine 5 mg tablet 5 mg PO QPM nitroglycerin 0.4 mg tablet, sublingual 0.4 mg sublingual .PRN/UD PRN (Reason: Chest Pain) Rx Instructions: NEEDED FOR CHEST PAIN : ONE TABLET UNDER THE TONGUE EVERY 5 MINUTES UP TO THREE DOSES. omeprazole 40 mg capsule,delayed release(DR/EC) 40 mg PO DAILY folic acid 1 mg tablet 1 mg PO DAILY aspirin [Bob Low Dose Aspirin] 81 mg Tablet,Delayed Release (Dr/Ec) 81 mg PO DAILY losartan 25 mg Tablet 12.5 mg PO QPM Qty: 30 0RF furosemide 20 mg Tablet 20 mg PO QAM Qty: 30 0RF atenolol 25 mg tablet 25 mg PO AMHS Spiriva Respimat 2.5 mcg/actuation mist 2 inh INHALATION DAILY hydrocodone-acetaminophen 7.5-325 mg tablet 1 tab PO Q8 PRN (Reason: Pain) Enbrel 50 mg/mL (1 mL) Syringe 50 mg SUBCUT .QWEEK Rx Instructions: TAKES ON SATURDAYS sildenafil (pulm.hypertension) 20 mg tablet 40 mg PO HS alendronate 70 mg tablet 70 mg PO WK Rx Instructions: TAKES ON SATURDAYS prednisone 1 mg tablet 5 mg PO DAILY Rx Instructions: TAPERING DOWN DOSAGE. Referrals Referrals: Anahy Grayson MD [Primary Care Provider] -
[2022-07-05 20:13] LABS: Albumin Level 3.8 gm/dl (3.4-5.0); BUN Creatinine Ratio 21.5 (10-20); Basophils # (auto) 0.06 K/uL (0-0.2); Basophils % (auto) 0.6 %; Bilirubin,Total 0.5 mg/dl (0.2-1.0); Calcium 9.6 mg/dl (8.5-10.1); Creatinine Clr Calc Pharmacy 75.6 ml/min; Eosinophils # (auto) 0.11 K/uL (0-0.50); Eosinophils % (auto) 1.1 %; Est GFR (Non-African American) 65.6 ml/min; Globulin 3.8 gm/dl (2.5-4.0); Hematocrit (blood only) 34.2 % (42.0-52.0); Hemoglobin 10.8 g/dl (14.0-18.0); Immature Granulocytes # (auto) 0.06 K/uL (0.01-0.20); Immature Granulocytes % (auto) 0.6 %; Lymphocytes # (auto) 1.48 K/uL (1.2-3.4); Lymphocytes % (auto) 15.2 %; Mean Corpuscular Hemoglobin 24.5 pg (25.0-34.0); Mean Corpuscular Hgb Conc 31.6 g/dL (32.0-36.0); Mean Corpuscular Volume 77.7 fL (80.0-100.0); Mean Platelet Volume 9.8 fL (9.4-12.4); Monocytes # (auto) 0.72 K/uL (0.11-0.59); Monocytes % (auto) 7.4 %; Neutrophils # (auto) 7.29 K/uL (1.40-6.50); Neutrophils % (auto) 75.1 %; Platelet Count 467 K/uL (130-400); Potassium 3.2 mmol/L (3.5-5.1); RDW Coefficient of Variation 17.1 % (11.5-14.5); RDW Standard Deviation 48.1 fL (36.4-46.3); Total Protein 7.6 gm/dl (6.0-8.3); White Blood Count 9.72 K/ul (4.8-10.8)
[2022-07-05 20:24] LABS: Troponin I High Sensitivity 210.7 pg/ml (0-20)
[2022-07-05 20:35] LABS: Influenza A virus by PCR Negative (Neg); Influenza B virus by PCR Negative (Neg); RSV by PCR Negative (Neg); SARS CoV2 RNA(COVID-19) Ceph NEGATIVE (Negative)
[2022-07-05] MEDS ORDERED: STAT IV Infusion **Titration per Protocol STA (21:06)
[2022-07-05] MEDS ORDERED: POTASSIUM CHLORIDE CRTAB 20 MEQ TABCR PO STA ×2 (21:10→22:52)
[2022-07-05] MEDS ORDERED: ATENOLOL 25 MG TABLET PO STA (21:13)
[2022-07-05] MEDS ORDERED: dilTIAZem HCL 125 MG in DEXTROSE 5% 100 ML IV SCH (21:15)
--- NOTE | 2022-07-05 21:32 | History & Physical Report ---
Date of Service July 05, 2022 Assessment & Plan (1) Acute on chronic heart failure with reduced ejection fraction and diastolic dysfunction: (2) Atrial fibrillation with rapid ventricular response: (3) Elevated troponin: (4) CAD (coronary artery disease): (5) Rheumatoid arthritis: (6) HTN (hypertension): (7) PAD (peripheral artery disease): (8) Raynauds disease: Plan: Patient is a 57-year-old male with PMHnonobstructive CAD per cardiac catheterization 04/20/2021, PSVT, pulmonary nodules, history of IV drug use, rheumatoid arthritis, hepatitis C s/p treatment, severe Raynaud's disease with gangrene of the 4th finger, following with rheumatology, on amlodipine and Revatio, 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 Laurent. 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 History obtained from patient and chart review. Patient reports baseline shortness of breath however for the past day with increased shortness of breath. States 1 month ago was having increased lower extremity edema and Lasix was increased from 20 mg to 40 mg daily with improvement. Yesterday noted increased bilateral lower extremity edema. 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 Reports chronic nonproductive cough without any noted increased cough. Patient states this morning had tightness sensation across the entire upper chest that lasted several minutes and then self resolved. States feels very tired. This morning slept through multiple alarms and phone calls. Dizziness with standing. Denies syncope. Denies fever/chills, diaphoresis, N/V/D/C, ROJAS, vision changes, neck pain, palpitations, hemoptysis, sore throat, choking, otalgia, rhinorrhea, abdominal pain, paresthesias, extremity weakness, rashes, urinary symptoms. Allergies Allergy/AdvReac Type Severity Reaction Status Date / Time No Known Allergies Allergy Verified 07/05/22 20:43 Home Medications Medication Instructions Recorded Confirmed Type aspirin 81 mg tablet,delayed 81 mg PO DAILY 04/04/21 07/05/22 History release (Bob Low Dose Aspirin) folic acid 1 mg tablet 1 mg PO DAILY 04/04/21 07/05/22 History omeprazole 40 mg capsule,delayed 40 mg PO DAILY 04/04/21 07/05/22 History release losartan 25 mg tablet 12.5 mg PO QPM #30 tabs 04/08/21 07/05/22 Rx amlodipine 5 mg tablet 5 mg PO QPM 08/27/21 07/05/22 History clopidogrel 75 mg tablet 75 mg PO DAILY 08/27/21 07/05/22 History nitroglycerin 0.4 mg sublingual 0.4 mg sublingual .PRN/UD PRN 08/27/21 07/05/22 History tablet Chest Pain rosuvastatin 5 mg tablet 5 mg PO QPM 08/27/21 07/05/22 History sildenafil (pulm.hypertension) 20 20 mg PO BID 08/27/21 07/05/22 History mg tablet atenolol 25 mg tablet 25 mg PO AMHS 04/06/22 07/05/22 History etanercept 50 mg/mL (1 mL) 50 mg subcut .QWEEK 04/06/22 07/05/22 History subcutaneous syringe (Enbrel) hydrocodone 7.5 mg-acetaminophen 1 tab PO Q8 PRN Pain 04/06/22 07/05/22 History 325 mg tablet sildenafil (pulm.hypertension) 20 40 mg PO HS 04/06/22 07/05/22 History mg tablet tiotropium bromide 2.5 2 inh inhalation DAILY 04/06/22 07/05/22 History mcg/actuation mist for inhalation (Spiriva Respimat) alendronate 70 mg tablet 70 mg PO WK 07/05/22 07/05/22 History furosemide 20 mg tablet 40 mg PO QAM 07/05/22 07/05/22 History prednisone 10 mg tablet 5 mg PO DAILY 07/05/22 07/05/22 History Past Med/Surg History Medical History (Updated 07/05/22 @ 22:15 by Varsha Garcia PA-C) Anemia Chronic steroid use Erectile dysfunction GERD (gastroesophageal reflux disease) Hepatitis C HFrEF (heart failure with reduced ejection fraction) HTN (hypertension) Long-term use of high-risk medication Lung nodules PAD (peripheral artery disease) Pre-diabetes Raynauds disease Rheumatoid arthritis Tobacco use disorder Surgical History History of cardiac cath History of colonoscopy Hx of tonsillectomy Family History Other Heart disease Hypertension Social History (Updated 07/05/22 @ 21:54 by Varsha Garcia PA-C) Smoking Status: Unknown if ever smoked Tobacco Type: Cigarettes Cigarettes Per Day: 8-10; Second Hand Exposure: Yes; Hx Alcohol Use: No Hx Substance Use: Yes Last Used Substance: Hours (ago) Last Used Substance Other:: 14 hrs ago Preferred Language: Chilean Communication Ability: Effective Monitoring Specialist Required: No Beliefs That Will Affect Care: None Current Living Situation: Family Current Living Situation Comment: girlfriend Feels Safe at Home: Yes Safety Concerns: Feels Safe At This Time Assistive Devices: Cane Review of Systems Review of Systems: All systems reviewed & are unremarkable except as noted in HPI & below Physical Exam Physical Exam: General: no distress, overweight, chronic ill appearing male, appears older than stated age Head: normocephalic, atraumatic Eyes: conjunctiva non-injected, anicteric ENT: normal inspection external ears, nose, mucous membranes moist Neck: supple, trachea midline Lungs: clear, no respiratory distress, no wheezing/rhonchi/rales CV: Irregularly irregular, rate 108, 2+ pretibial edema Abd: normal BS, soft, non-tender Ext: no cyanosis, no calf tenderness; bilateral medial aspect distal thighs extending to medial knees with erythema, without significant warmth and without tenderness to palpation Neuro: A&O x 3, no focal deficits noted, normal affect Skin: warm, dry Results & Data Results & Data ([facility]) Vital Signs (Past 12 Hours) Vital Signs Temp Pulse Pulse Resp BP BP Pulse Ox 07/05/22 19:53 98 07/05/22 19:53 125 H 21 119/81 97 07/05/22 18:39 36.5 C 110 H 20 130/96 98 O2 Del Method 07/05/22 19:53 Room Air 07/05/22 19:53 Room Air 07/05/22 18:39 Room Air Laboratory Results Short CBC 07/05/22 Range/Units 19:30 WBC 9.72 (4.8-10.8) K/ul Hgb 10.8 L (14.0-18.0) g/dl Hct 34.2 L (42.0-52.0) % Plt Count 467 H (130-400) K/uL BMP 07/05/22 19:30 Sodium 142 Potassium 3.2 L Chloride 104 Carbon Dioxide 29 BUN 26 H Creatinine 1.21 Glucose 122 H Calcium 9.6 Liver Function 07/05/22 Range/Units 19:30 Total Bilirubin 0.5 (0.2-1.0) mg/dl AST 20 (13-39) U/L ALT 18 (7-52) U/L Alkaline Phosphatase 105 H (34-104) U/L Albumin 3.8 (3.4-5.0) gm/dl Diagnostic Findings Chest X-Ray 07/05/22 18:56 SINGLE VIEW CHEST CLINICAL HISTORY: Atypical chest pain. Dyspnea. FINDINGS: An AP, portable, upright chest radiograph is compared to study dated 04/06/2022 and correlated with chest CT dated 08/25/2021. The heart is enlarged. Emphysema and chronic interstitial thickening is similar to previous. There is prominence of the pulmonary vascular tear. Emphysema and chronic interstitial thickening is similar to previous. No airspace consolidation or large pleural effusion is identified. A 2.3 cm nodular density projects over the medial right lower lobe. Left-sided bony nodules seen on prior chest CT scan are not well assessed by x-ray. No pneumothorax is seen. The skeletal structures are osteopenic. The bony thorax is grossly intact. 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 IMPRESSION: 1. Cardiomegaly and emphysema prominence of the pulmonary vascular. Correlate clinically for evidence of fluid overload/mild congestive change. 2. There is no airspace consolidation typical for pneumonia or large pleural effusion. 3. A 2.3 cm nodular opacity projects over the medial right lower lung. Left- sided pulmonary nodules seen on prior chest CT scans are not visible on today's x-ray. ACT 112: Negative or not required by law. Electronically signed by: Alcon Roach M.D. 07/05/2022 7:40 PM Supervising Physician Co-Signing Physician Notes IM ATTENDING : Patient seen and examined. History obtained from patient and records. Preceding documentation by Ms. Varsha Garcia PA-C reviewed. 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 Replace potassium Nicotine replacement therapy as needed DVT prophylaxis. IV heparin Full code Patient requesting for to be given updates on care. Hayley Eddie, contact #[phone]. Text document was generated using [employer] voice recognition software. It may contain grammatical or spelling errors. Kindly contact undersigned for clarification of any documentation item in question.
[2022-07-05] MEDS ORDERED: ALBUMIN 25% 100 mL 25 GM/100 ML VIAL IV STA (21:33)
[2022-07-05 21:47] LABS: INR 1.1 (0.9-1.1); Partial Thromboplastin Ratio 0.9; Partial Thromboplastin Time 25.9 Seconds (21.0-31.0); Prothrombin Time 11.9 Seconds (9.0-12.0)
[2022-07-05 22:23] LABS: Thyroid Stimulating Hormone 5.056 uIu/ml (0.300-4.500)
[2022-07-05] MEDS ORDERED: Heparin IV Adult Wt-Based Standard *NO* Bolus Protocol IV STA (22:42)
[2022-07-05 23:51] LABS: Magnesium 1.9 mg/dl (1.7-2.4)
[2022-07-06] MEDS: HEPARIN SODIUM/DEXTROSE 25,000 UNITS/500 ML BAG IV SCH ×2 (00:01→17:46)
[2022-07-06] MEDS ORDERED: MAGNESIUM SULFATE / D5W 1 GM/100 ML BAG IV STA (00:10)
[2022-07-06 00:42] LABS: T4 Free Thyroxine 1.12 ng/dl (0.61-1.60)
[2022-07-06] MEDS ORDERED: PROMETHAZINE HCL 12.5 MG in SODIUM CHLORIDE 0.9% 50 ML IV PRN (01:14)
[2022-07-06] MEDS ORDERED: ACETAMINOPHEN 325 MG TAB PO PRN (01:14)
[2022-07-06 04:49] LABS: Basophils # (auto) 0.06 K/uL (0-0.2); Basophils % (auto) 0.8 %; Eosinophils # (auto) 0.21 K/uL (0-0.50); Eosinophils % (auto) 2.6 %; Hematocrit (blood only) 31.3 % (42.0-52.0); Immature Granulocytes # (auto) 0.04 K/uL (0.01-0.20); Immature Granulocytes % (auto) 0.5 %; Lymphocytes # (auto) 1.45 K/uL (1.2-3.4); Lymphocytes % (auto) 18.2 %; Mean Corpuscular Hemoglobin 24.8 pg (25.0-34.0); Mean Corpuscular Hgb Conc 31.9 g/dL (32.0-36.0); Mean Corpuscular Volume 77.7 fL (80.0-100.0); Mean Platelet Volume 9.7 fL (9.4-12.4); Monocytes # (auto) 0.49 K/uL (0.11-0.59); Monocytes % (auto) 6.1 %; Neutrophils # (auto) 5.73 K/uL (1.40-6.50); Neutrophils % (auto) 71.8 %; Platelet Count 394 K/uL (130-400); RDW Standard Deviation 47.6 fL (36.4-46.3); Red Blood Count 4.03 M/uL (4.70-6.10); White Blood Count 7.98 K/ul (4.8-10.8)
[2022-07-06 04:59] LABS: Partial Thromboplastin Ratio 1.3; Partial Thromboplastin Time 35.2 Seconds (21.0-31.0)
[2022-07-06 05:08] LABS: BUN Creatinine Ratio 24.3 (10-20); Calcium 9.1 mg/dl (8.5-10.1); Creatinine Clr Calc Pharmacy 82.4 ml/min; Est GFR (African American) 84.4 ml/min; Est GFR (Non-African American) 72.8 ml/min; Potassium 3.5 mmol/L (3.5-5.1)
[2022-07-06 05:31] LABS: Troponin I High Sensitivity 216.8 pg/ml (0-20)
[2022-07-06] MEDS ORDERED: HEPARIN SOD (PORCINE) 1000 UNIT/ML ONE (05:48)
[2022-07-06] MEDS ORDERED: FUROSEMIDE 40 MG/4 ML VIAL IV ONE (08:00)
--- NOTE | 2022-07-06 08:47 | Electrocardiogram Report ---
Test Reason : Blood Pressure : / mmHG Vent. Rate : 131 BPM Atrial Rate : 125 BPM P-R Int : 000 ms QRS Dur : 092 ms QT Int : 332 ms P-R-T Axes : 000 -10 -64 degrees QTc Int : 490 ms Atrial fibrillation with rapid ventricular response Poor R wave progression, consider anterior VT vs. lead placement vs. LVH Abnormal ECG When compared with ECG of 05-JUL-2022 19:33, No significant change Confirmed by Logan Staley ([id number]) on 07/06/2022 8:47:47 AM Referred By: REFERRED SELF Confirmed By:Logan Staley
--- NOTE | 2022-07-06 08:47 | Electrocardiogram Report ---
Test Reason : Blood Pressure : / mmHG Vent. Rate : 129 BPM Atrial Rate : 156 BPM P-R Int : 000 ms QRS Dur : 094 ms QT Int : 332 ms P-R-T Axes : 000 -80 081 degrees QTc Int : 486 ms Atrial fibrillation with rapid ventricular response with premature ventricular or aberrantly conducte d complexes Left axis deviation Incomplete right bundle branch block Poor R wave progression, consider anterior CO vs. lead placement vs. LVH Abnormal ECG When compared with ECG of 08-APR-2022 05:53, Atrial fibrillation now present HR has increased by 52 bpm PRWP now present Confirmed by Logan Staley ([id number]) on 07/06/2022 8:47:00 AM Referred By: REFERRED SELF Confirmed By:Logan Staley
[2022-07-06] MEDS: ASPIRIN 81 MG ECTAB PO SCH (08:58)
[2022-07-06] MEDS: predniSONE 5 MG TAB PO SCH (08:59)
[2022-07-06] MEDS: FOLIC ACID 1 MG TAB PO SCH (08:59)
[2022-07-06] MEDS: PANTOprazole 40 MG TAB PO SCH (08:59)
[2022-07-06] MEDS: UMECLIDINIUM BROMIDE 62.5MCG/BLISTER 7 PUFFS/INHALER INH SCH (08:59)
[2022-07-06] MEDS ORDERED: SILDENAFIL CITRATE 20 MG TABLET PO SCH (09:00)
[2022-07-06] MEDS ORDERED: ATENOLOL 25 MG TABLET PO SCH (09:00)
[2022-07-06] MEDS ORDERED: CLOPIDOGREL BISULFATE 75 MG TAB PO SCH (09:00)
--- NOTE | 2022-07-06 09:05 | Cardiology Consultation ---
Date of Consultation July 06, 2022 Assessment & Plan (1) Atrial fibrillation with rapid ventricular response: (2) Acute on chronic heart failure with reduced ejection fraction and diastolic dysfunction: (3) Anemia: Plan 57-year-old male presents with acute decompensated heart failure in the setting of paroxysmal atrial fibrillation with rapid ventricular response and microcytic anemia. Preliminary review of bedside 2D transthoracic echocardiogram demonstrates reduced LV systolic function with ejection fraction of 25 to 30% (previously 40-45%). Recommend discontinuation of atenolol in favor of metoprolol to tartrate 25 mg every 6 hours. Will wean IV diltiazem infusion as tolerated. Consider addition of digoxin pending clinical response. No current indication for dual antiplatelet therapy. Plavix added after cardiac catheterization in 2020 in the setting of possible old ulcerated RCA plaque without significant stenosis. Continue aspirin and intravenous heparin. Briefly discussed need for oral anticoagulation at time of discharge. Initiate IV diuresis, furosemide 40 mg twice daily. Monitor daily weight, fluid balance, electrolytes, and GFR. Consider addition of Aldactone pending review of a.m. labs 07/07/2022. History of Present Illness Reason for Consultation: CHF, AF Requesting Physician: Dr. Daniel Laurent Attending Physician: Alexsandra Mendez MD History of Present Illness 57-year-old male presents to the emergency department with shortness of breath and dyspnea. Hospitalized in March due to CHF. A ZIO monitor was performed post discharge demonstrating paroxysmal atrial fibrillation. Patient treated with intravenous heparin and diltiazem infusion in ER. Chronically treated with dual antiplatelet therapy after cardiac catheterization in March 2021 demonstrating an ulcerated RCA plaque with nonobstructive disease. Recent echocardiogram performed in March demonstrating mild LV systolic dysfunction, unchanged from previous. Complex history noted below. Patient reports progressive dyspnea for several days prior to hospital admission. Notes edema, weight gain, and orthopnea. Telemetry reveals atrial fibrillation with rapid ventricular response. He was not anticoagulated prior to admission. Developed a rash in the spring 2021 attributed to Plavix, however, patient continued medication. At some point, metoprolol was discontinued in favor of atenolol although this is not well documented in the medical record. There is no known allergy. Currently notes orthopnea and dyspnea with minimal exertion. Denies chest discomfort or heaviness. Cardiac history copied from the [facility] medical record: 1. Nonobstructive CAD per cardiac catheterization 04/20/2021 at [facility] with Dr. Kiara guy. Patent coronary anatomy, RCA appears to have a nonobstructive ulcerated plaque in its mid segment, treated medically, added plavix 2. Mildly reduced LV systolic function per echo 04/05/2021 [facility], LVEF 46% per recent echo 07/2021. 3. Frequent PSVT, 14.9% per zio 06/2021 4. Multiple pulmonary nodules noted on CTA of the chest 03/2021- following with Dr. Cuevas, pulmonary 5. History of IV drug use 6. Rheumatoid arthritis on Leflunomide and chronic corticosteroid use 7. Hepatitis-C status post treatment 8. Severe Raynaud's disease with gangrene of the 4th finger, following with rheum, on amlodipine and Revatio. 9. Pulmonary disease a. Chronic tobacco use b. History of exposure to pesticides with agricultural c Reports exposure to asbestos while currently working in [place]- following with Pulmonary, status post lung biopsy Allergies Allergy/AdvReac Type Severity Reaction Status Date / Time No Known Allergies Allergy Verified 07/05/22 20:43 Home Medications Medication Instructions Recorded Confirmed Type aspirin 81 mg tablet,delayed 81 mg PO DAILY 04/04/21 07/05/22 History release (Bob Low Dose Aspirin) folic acid 1 mg tablet 1 mg PO DAILY 04/04/21 07/05/22 History omeprazole 40 mg capsule,delayed 40 mg PO DAILY 04/04/21 07/05/22 History release losartan 25 mg tablet 12.5 mg PO QPM #30 tabs 04/08/21 07/05/22 Rx amlodipine 5 mg tablet 5 mg PO QPM 08/27/21 07/05/22 History clopidogrel 75 mg tablet 75 mg PO DAILY 08/27/21 07/05/22 History nitroglycerin 0.4 mg sublingual 0.4 mg sublingual .PRN/UD PRN 08/27/21 07/05/22 History tablet Chest Pain rosuvastatin 5 mg tablet 5 mg PO QPM 08/27/21 07/05/22 History sildenafil (pulm.hypertension) 20 20 mg PO BID 08/27/21 07/05/22 History mg tablet atenolol 25 mg tablet 25 mg PO AMHS 04/06/22 07/05/22 History etanercept 50 mg/mL (1 mL) 50 mg subcut .QWEEK 04/06/22 07/05/22 History subcutaneous syringe (Enbrel) hydrocodone 7.5 mg-acetaminophen 1 tab PO Q8 PRN Pain 04/06/22 07/05/22 History 325 mg tablet sildenafil (pulm.hypertension) 20 40 mg PO HS 04/06/22 07/05/22 History mg tablet tiotropium bromide 2.5 2 inh inhalation DAILY 04/06/22 07/05/22 History mcg/actuation mist for inhalation (Spiriva Respimat) alendronate 70 mg tablet 70 mg PO WK 07/05/22 07/05/22 History furosemide 20 mg tablet 40 mg PO QAM 07/05/22 07/05/22 History prednisone 10 mg tablet 5 mg PO DAILY 07/05/22 07/05/22 History Patient History Medical History Anemia Chronic steroid use Erectile dysfunction GERD (gastroesophageal reflux disease) Hepatitis C HFrEF (heart failure with reduced ejection fraction) HTN (hypertension) Long-term use of high-risk medication Lung nodules PAD (peripheral artery disease) Pre-diabetes Raynauds disease Rheumatoid arthritis Tobacco use disorder Surgical History History of cardiac cath History of colonoscopy Hx of tonsillectomy Family History Other Heart disease Hypertension Social History Smoking Status: Unknown if ever smoked Tobacco Type: Cigarettes Cigarettes Per Day: 8-10; Second Hand Exposure: Yes; Hx Alcohol Use: No Hx Substance Use: Yes Last Used Substance: Hours (ago) Last Used Substance Other:: 14 hrs ago Preferred Language: [place] Communication Ability: Effective Product Development Coordinator Required: No Beliefs That Will Affect Care: None Current Living Situation: Family Current Living Situation Comment: girlfriend Feels Safe at Home: Yes Safety Concerns: Feels Safe At This Time Assistive Devices: Cane, Walker and Wheelchair Review of Systems Review of Systems: All systems reviewed & are unremarkable except as noted in Subjective Physical Exam Constitutional: well nourished and + ill appearing; no acute distress Respiratory: normal respiratory effort; no respiratory distress, no labored breathing and no retractions Auscultation: + rales (Bilateral bases); no rhonchi and no wheezes Cardiovascular: Rate/Rhythm: + tachycardic and + irregularly irregular Heart Sounds: normal S1 and normal S2; no murmur Vessels: + JVD and radial pulses present; no carotid bruit Extremities: + edema (2+ bilateral pretibial edema) Gastrointestinal (Abdomen): Inspection/Auscultation: normal bowel sounds; abdomen not distended and no abdominal edema Percussion/Palpation: abdomen soft; abdomen nontender, no guarding and abdomen not rigid Neurologic: CN's II-XI intact bilaterally and moves all extremities; no focal motor deficits Motor/Sensory: no tremor Psychiatric: A+Ox3, euthymic affect Results & Data ([facility]) Vital Signs (Past 12 Hours) Vital Signs Temp Pulse Resp BP Pulse Ox Pulse Ox O2 Del Method 07/06/22 08:00 102 H 21 116/92 93 Room Air 07/06/22 07:16 104 H 119/93 93 Room Air 07/06/22 05:57 93 H 18 113/87 93 Room Air 07/06/22 04:32 94 H 16 126/80 95 Room Air 07/06/22 03:21 Room Air 07/06/22 03:21 96 H 16 119/75 95 Room Air 07/06/22 01:41 Room Air 07/06/22 01:41 97 07/06/22 01:40 97 H 16 98 Room Air 07/06/22 00:47 36.9 C 93 H 19 109/79 97 Room Air 07/06/22 00:32 84 16 98 Room Air 07/05/22 23:25 100 H 19 126/83 99 Room Air 07/05/22 22:09 112 H 18 120/91 97 Room Air O2 Del Method 07/06/22 08:00 07/06/22 07:16 07/06/22 05:57 07/06/22 04:32 07/06/22 03:21 07/06/22 03:21 07/06/22 01:41 07/06/22 01:41 Room Air 07/06/22 01:40 07/06/22 00:47 07/06/22 00:32 07/05/22 23:25 07/05/22 22:09 Laboratory Results Laboratory Results - last 24 hr 07/05/22 07/05/22 07/05/22 19:30 19:30 19:30 WBC 9.72 RBC 4.40 L Hgb 10.8 L Hct 34.2 L MCV 77.7 L MCH 24.5 L MCHC 31.6 L RDW Std Deviation 48.1 H RDW Coeff of Alex 17.1 H Plt Count 467 H MPV 9.8 Immature Gran % (Auto) 0.6 Neut % (Auto) 75.1 Lymph % (Auto) 15.2 [place] % (Auto) 7.4 Eos % (Auto) 1.1 Baso % (Auto) 0.6 Neut # (Auto) 7.29 H Lymph # (Auto) 1.48 [place] # (Auto) 0.72 H Eos # (Auto) 0.11 Baso # (Auto) 0.06 Immature Gran # (Auto) 0.06 PT INR APTT PTT Ratio Sodium 142 Potassium 3.2 L Chloride 104 Carbon Dioxide 29 Anion Gap 9 BUN 26 H Creatinine 1.21 Est Cr Clr Drug Dosing 75.6 Est GFR ( Amer) 76.0 Est GFR (Non-Af Amer) 65.6 BUN/Creatinine Ratio 21.5 H Glucose 122 H Calcium 9.6 Magnesium Total Bilirubin 0.5 AST 20 ALT 18 Alkaline Phosphatase 105 H Troponin I High Sens 210.7 H* B-Natriuretic Peptide 965 H Total Protein 7.6 Albumin 3.8 Globulin 3.8 Albumin/Globulin Ratio 1.0 TSH Free T4 SARS-CoV-2 (PCR) Influenza Type A (PCR) Influenza Type B (PCR) RSV (RT-PCR) 07/05/22 07/05/22 07/05/22 19:30 19:30 19:30 WBC RBC Hgb Hct MCV MCH MCHC RDW Std Deviation RDW Coeff of Alex Plt Count MPV Immature Gran % (Auto) Neut % (Auto) Lymph % (Auto) [place] % (Auto) Eos % (Auto) Baso % (Auto) Neut # (Auto) Lymph # (Auto) [place] # (Auto) Eos # (Auto) Baso # (Auto) Immature Gran # (Auto) PT 11.9 INR 1.1 APTT 25.9 PTT Ratio 0.9 Sodium Potassium Chloride Carbon Dioxide Anion Gap BUN Creatinine Est Cr Clr Drug Dosing Est GFR ( Amer) Est GFR (Non-Af Amer) BUN/Creatinine Ratio Glucose Calcium Magnesium Total Bilirubin AST ALT Alkaline Phosphatase Troponin I High Sens B-Natriuretic Peptide Total Protein Albumin Globulin Albumin/Globulin Ratio TSH 5.056 H Free T4 1.12 SARS-CoV-2 (PCR) NEGATIVE Influenza Type A (PCR) Negative Influenza Type B (PCR) Negative RSV (RT-PCR) Negative 07/05/22 07/06/22 07/06/22 23:11 04:17 04:17 WBC 7.98 RBC 4.03 L Hgb 10.0 L Hct 31.3 L MCV 77.7 L MCH 24.8 L MCHC 31.9 L RDW Std Deviation 47.6 H RDW Coeff of Alex 17.0 H Plt Count 394 MPV 9.7 Immature Gran % (Auto) 0.5 Neut % (Auto) 71.8 Lymph % (Auto) 18.2 [place] % (Auto) 6.1 Eos % (Auto) 2.6 Baso % (Auto) 0.8 Neut # (Auto) 5.73 Lymph # (Auto) 1.45 [place] # (Auto) 0.49 Eos # (Auto) 0.21 Baso # (Auto) 0.06 Immature Gran # (Auto) 0.04 PT INR APTT PTT Ratio Sodium 135 L Potassium 3.5 Chloride 101 Carbon Dioxide 25 Anion Gap 9 BUN 27 H Creatinine 1.11 Est Cr Clr Drug Dosing 82.4 Est GFR ( Amer) 84.4 Est GFR (Non-Af Amer) 72.8 BUN/Creatinine Ratio 24.3 H Glucose 123 H Calcium 9.1 Magnesium 1.9 Total Bilirubin AST ALT Alkaline Phosphatase Troponin I High Sens 247.0 H* 216.8 H* B-Natriuretic Peptide Total Protein Albumin Globulin Albumin/Globulin Ratio TSH Free T4 SARS-CoV-2 (PCR) Influenza Type A (PCR) Influenza Type B (PCR) RSV (RT-PCR) 07/06/22 04:17 WBC RBC Hgb Hct MCV MCH MCHC RDW Std Deviation RDW Coeff of Alex Plt Count MPV Immature Gran % (Auto) Neut % (Auto) Lymph % (Auto) [place] % (Auto) Eos % (Auto) Baso % (Auto) Neut # (Auto) Lymph # (Auto) [place] # (Auto) Eos # (Auto) Baso # (Auto) Immature Gran # (Auto) PT INR APTT 35.2 H PTT Ratio 1.3 Sodium Potassium Chloride Carbon Dioxide Anion Gap BUN Creatinine Est Cr Clr Drug Dosing Est GFR ( Amer) Est GFR (Non-Af Amer) BUN/Creatinine Ratio Glucose Calcium Magnesium Total Bilirubin AST ALT Alkaline Phosphatase Troponin I High Sens B-Natriuretic Peptide Total Protein Albumin Globulin Albumin/Globulin Ratio TSH Free T4 SARS-CoV-2 (PCR) Influenza Type A (PCR) Influenza Type B (PCR) RSV (RT-PCR)
[2022-07-06] MEDS: HYDROCODONE/ACETAMINOPHEN 7.5/325MG TAB PO PRN ×2 (09:07→23:35)
[2022-07-06] MEDS: METOPROLOL TARTRATE 25 MG TAB PO SCH ×3 (12:01→23:32)
[2022-07-06 13:46] LABS: Partial Thromboplastin Ratio 1.5
[2022-07-06] MEDS ORDERED: METOPROLOL TARTRATE 25 MG TAB PO STA (13:59)
--- NOTE | 2022-07-06 16:52 | Hospitalist Progress Note ---
Date of Service July 06, 2022 Assessment & Plan (1) Acute on chronic heart failure with reduced ejection fraction and diastolic dysfunction: (2) Atrial fibrillation with rapid ventricular response: (3) Elevated troponin: (4) CAD (coronary artery disease): (5) Rheumatoid arthritis: (6) HTN (hypertension): (7) PAD (peripheral artery disease): (8) Raynauds disease: Plan: Acute on chronic heart failure with reduced ejection fraction and diastolic dysfunction Patient is a 57-year-old male with PMHnonobstructive CAD per cardiac catheterization 04/20/2021, PSVT, pulmonary nodules, history of IV drug use, rheumatoid arthritis, hepatitis C s/p treatment, severe Raynaud's disease with gangrene of the 4th finger, following with rheumatology, on amlodipine and Revatio, 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 Left ventricle systolic function is severely reduced with ejection fraction 25 to 30% Continue lasix 40mg IV BID Monitor I/O closely Atrial fibrillation with rapid ventricular response Currently on Cardizem drip and heparin drip Cardiology recommended to wean cardizem drip Continue metoprolol 25mg q6h Will need oral anticoagulant on discharge Continue monitor closely in tele Elevated troponin Mostly due to demand ischemia in the setting of acute CHF and Afib with RVR Troponin peaked to 247, then trending down to 216 denies any chest pain No current indication for dual antiplatelet therapy Cardiology recommended aspirin and heparin drip Continue statin and beta tyrone Continue monitor Lung Lesions Hstory of pulmonary nodules from prior CT chest CXR showed 2.3 cm nodular opacity projects over the medial right lower lung. Follows with pulmonology as outpatient Hyperlipidemia: Continue statin H/O Rheumatoid arthritis: Previously hydroxychloroquine--was discontinued due to QTC prolongation Currently only steroidl Follows with rheumatology as outpatient H/O heavy drug use. H/O hepatitis C S/P treatment H/O Severe Raynaud disease with gangrene in the fourth finger: On amlodipine and Revatio. Hypertension: Continue losartan, atenolol, amlodipine Continue monitor BP Depression: on Duloxetine. Peripheral artery disease: On aspirin, and statin cardio recommended to d/c plavix since pt started on anticoagulant with aspirin DVT Px on Heparin drip Code Status Full Code Admission and Anticipated Discharge Date Admission Date: July 05, 2022 Subjective Pt was seen and examined for follow up of SOB and Afib RVR Lying in bed with no acute distress Pt said that breathing slightly improves, but he has not been doing much activity to cause SOB Denies any chest pain, palpitation, dizziness and fever Review of Systems Review of Systems: All systems reviewed & are unremarkable except as noted in Subjective Physical Exam Physical Exam: General- No acute distress Head- atraumatic Eyes- PERRL, EOMI, ENT- oropharynx clear Neck- supple, no JVD Lungs- clear to auscultation Heart- +tachycardia, irregular rhythm; no murmur Abdomen- normal bowel sounds, soft, nontender Extremities- no calf tenderness, +edema B/L LE Neuro- alert, oriented x 3; PERRL, EOMI; no facial palsy; no dysarthria Skin- warm & dry Results & Data Results & Data ([facility]) Vital Signs (Past 12 Hours) Vital Signs Pulse Resp BP Pulse Ox Pulse Ox O2 Del Method O2 Del Method 07/06/22 16:25 92 H 18 106/79 95 Nasal Cannula 07/06/22 16:00 95 Nasal Cannula 07/06/22 15:50 81 18 95/74 L 95 Nasal Cannula 07/06/22 14:13 86 17 111/75 96 Nasal Cannula 07/06/22 12:03 97 H 15 93/72 L 93 Nasal Cannula 07/06/22 10:00 114 H 25 H 104/70 94 Nasal Cannula 07/06/22 09:41 106/53 L 07/06/22 09:38 116 H 22 94 Nasal Cannula 07/06/22 09:36 91 Nasal Cannula 07/06/22 08:00 102 H 21 116/92 93 Room Air 07/06/22 07:16 104 H 119/93 93 Room Air 07/06/22 05:57 93 H 18 113/87 93 Room Air 07/06/22 04:32 94 H 16 126/80 95 Room Air O2 Flow Rate O2 Flow Rate 07/06/22 16:25 2 07/06/22 16:00 2 07/06/22 15:50 2 07/06/22 14:13 2 07/06/22 12:03 2 07/06/22 10:00 2 07/06/22 09:41 07/06/22 09:38 2 07/06/22 09:36 0 07/06/22 08:00 07/06/22 07:16 07/06/22 05:57 07/06/22 04:32
[2022-07-06] MEDS: FUROSEMIDE 40 MG/4 ML VIAL IV SCH (17:58)
[2022-07-06 20:56] LABS: Partial Thromboplastin Ratio 1.6; Partial Thromboplastin Time 43.9 Seconds (21.0-31.0)
[2022-07-06] MEDS ORDERED: amLODIPine BESYLATE 5 MG TAB PO SCH (21:00)
[2022-07-06] MEDS ORDERED: LOSARTAN POTASSIUM 25 MG TAB PO SCH (21:00)
[2022-07-06] MEDS: ROSUVASTATIN CALCIUM 5 MG TAB PO SCH (21:09)
[2022-07-07 04:21] LABS: Hematocrit (blood only) 31.5 % (42.0-52.0); Mean Corpuscular Hemoglobin 24.8 pg (25.0-34.0); Mean Corpuscular Hgb Conc 31.7 g/dL (32.0-36.0); Mean Corpuscular Volume 78.2 fL (80.0-100.0); Mean Platelet Volume 9.8 fL (9.4-12.4); Platelet Count 453 K/uL (130-400); RDW Coefficient of Variation 16.9 % (11.5-14.5); RDW Standard Deviation 47.8 fL (36.4-46.3); Red Blood Count 4.03 M/uL (4.70-6.10); White Blood Count 9.29 K/ul (4.8-10.8)
[2022-07-07 04:46] LABS: BUN Creatinine Ratio 27.2 (10-20); Calcium 8.9 mg/dl (8.5-10.1); Creatinine Clr Calc Pharmacy 73.2 ml/min; Est GFR (African American) 73.1 ml/min; Est GFR (Non-African American) 63.1 ml/min; Potassium 3.7 mmol/L (3.5-5.1)
[2022-07-07 04:50] LABS: Partial Thromboplastin Ratio 2.3
[2022-07-07 05:23] LABS: Partial Thromboplastin Time 62.1 Seconds (21.0-31.0)
[2022-07-07] MEDS: METOPROLOL TARTRATE 25 MG TAB PO SCH ×3 (05:42→17:38)
[2022-07-07] MEDS: PANTOprazole 40 MG TAB PO SCH (08:17)
[2022-07-07] MEDS: FOLIC ACID 1 MG TAB PO SCH (08:17)
[2022-07-07] MEDS: predniSONE 5 MG TAB PO SCH (08:18)
[2022-07-07] MEDS: ASPIRIN 81 MG ECTAB PO SCH (08:18)
[2022-07-07] MEDS: FUROSEMIDE 40 MG/4 ML VIAL IV SCH ×2 (08:18→16:36)
[2022-07-07] MEDS: HEPARIN SODIUM/DEXTROSE 25,000 UNITS/500 ML BAG IV SCH ×3 (08:31→16:36)
[2022-07-07] MEDS: UMECLIDINIUM BROMIDE 62.5MCG/BLISTER 7 PUFFS/INHALER INH SCH (08:48)
--- NOTE | 2022-07-07 10:54 | Cardiology Progress Note ---
Date of Service July 07, 2022 Assessment & Plan (1) Acute on chronic heart failure with reduced ejection fraction and diastolic dysfunction: (2) Atrial fibrillation with rapid ventricular response: (3) Anemia: Plan 57-year-old male presents with acute decompensated heart failure in the setting of paroxysmal atrial fibrillation with rapid ventricular response and microcytic anemia. 2D transthoracic echocardiogram demonstrates reduced LV systolic function with ejection fraction of 25 to 30% (previously 40-45%). Heart rate control improved with titration of metoprolol. Intravenous diltiazem discontinued. Patient remains borderline hypotensive. Recommend holding losa rtan and amlodipine to allow for diuresis. Continue IV Lasix 40 mg twice daily. Follow daily weight, fluid balance, and electrolytes. We will restart losartan and consider addition of Aldactone as hospital course unfolds. No current indication for dual antiplatelet therapy. Plavix discontinued yesterday. History of old ulcerated RCA plaque without significant stenosis per cardiac catheterization 03/2021. Continue aspirin and intravenous heparin. Discussed need for oral anticoagulation at time of discharge. Admission and Anticipated Discharge Date Admission Date: July 05, 2022 Subjective Patient seen and examined at the bedside. Positive fluid balance recorded, however, weight loss noted. Edema unchanged. Respiratory status mildly improved. Sildenafil discontinued due to borderline hypotension. Patient denies chest pain or palpitations. Telemetry was atrial fibrillation in the 90s. Denies palpitations or lightheadedness. Offers no new concerns/complaints. Review of Systems Review of Systems: All systems reviewed & are unremarkable except as noted in Subjective Physical Exam Constitutional: well nourished and + ill appearing; no acute distress Respiratory: normal respiratory effort; no respiratory distress, no labored breathing and no retractions Auscultation: + rales (Bilateral bases); no rhonchi and no wheezes Cardiovascular: Rate/Rhythm: + tachycardic and + irregularly irregular Heart Sounds: normal S1 and normal S2; no murmur Vessels: + JVD and radial pulses present; no carotid bruit Extremities: + edema (2+ bilateral pretibial edema) Gastrointestinal (Abdomen): Inspection/Auscultation: normal bowel sounds; abdomen not distended and no abdominal edema Percussion/Palpation: abdomen soft; abdomen nontender, no guarding and abdomen not rigid Neurologic: CN's II-XI intact bilaterally and moves all extremities; no focal motor deficits Motor/Sensory: no tremor Psychiatric: A+Ox3, euthymic affect Results & Data ([facility]) Vital Signs (Past 12 Hours) Vital Signs Temp Pulse Pulse Resp BP Pulse Ox Pulse Ox 07/07/22 08:09 36.4 C L 101 H 19 117/77 95 07/07/22 08:00 99 07/07/22 07:44 07/07/22 07:00 93 H 07/07/22 05:37 95 H 112/77 07/07/22 03:36 36.2 C L 83 19 114/83 99 07/07/22 01:14 96 07/07/22 00:03 97 H 07/07/22 00:01 95 07/06/22 23:30 36.7 C 91 H 21 127/90 96 O2 Del Method O2 Del Method O2 Flow Rate O2 Flow Rate 07/07/22 08:09 Nasal Cannula 2 07/07/22 08:00 Nasal Cannula 3 07/07/22 07:44 Nasal Cannula 3 07/07/22 07:00 07/07/22 05:37 07/07/22 03:36 Nasal Cannula 3 07/07/22 01:14 Nasal Cannula 3 07/07/22 00:03 07/07/22 00:01 Nasal Cannula 3 07/06/22 23:30 Nasal Cannula 3
[2022-07-07] MEDS: ROSUVASTATIN CALCIUM 5 MG TAB PO SCH (21:40)
[2022-07-07] MEDS: HYDROCODONE/ACETAMINOPHEN 7.5/325MG TAB PO PRN (21:44)
--- NOTE | 2022-07-07 22:47 | Hospitalist Progress Note ---
Date of Service July 07, 2022 Assessment & Plan (1) Acute on chronic heart failure with reduced ejection fraction and diastolic dysfunction: (2) Atrial fibrillation with rapid ventricular response: (3) Elevated troponin: (4) CAD (coronary artery disease): (5) Rheumatoid arthritis: (6) HTN (hypertension): (7) PAD (peripheral artery disease): (8) Raynauds disease: Plan: Acute on chronic heart failure with reduced ejection fraction and diastolic dysfunction Patient is a 57-year-old male with PMHnonobstructive CAD per cardiac catheterization 04/20/2021, PSVT, pulmonary nodules, history of IV drug use, rheumatoid arthritis, hepatitis C s/p treatment, severe Raynaud's disease with gangrene of the 4th finger, following with rheumatology, on amlodipine and Revatio, 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 Left ventricle systolic function is severely reduced with ejection fraction 25 to 30% Continue lasix 40mg IV BID Monitor I/O closely Continue monitor BMP while on IV lasix Atrial fibrillation with rapid ventricular response Currently on Cardizem drip and heparin drip Cardiology recommended to wean cardizem drip Continue metoprolol 25mg q6h Will need oral anticoagulant on discharge Continue monitor closely in tele Elevated troponin Mostly due to demand ischemia in the setting of acute CHF and Afib with RVR Troponin peaked to 247, then trending down to 216 denies any chest pain No current indication for dual antiplatelet therapy Cardiology recommended aspirin and heparin drip Continue statin and beta tyrone Continue monitor Lung Lesions Hstory of pulmonary nodules from prior CT chest CXR showed 2.3 cm nodular opacity projects over the medial right lower lung. Follows with pulmonology as outpatient Hyperlipidemia: Continue statin H/O Rheumatoid arthritis: Previously hydroxychloroquine--was discontinued due to QTC prolongation Currently only steroidl Follows with rheumatology as outpatient H/O heavy drug use. H/O hepatitis C S/P treatment H/O Severe Raynaud disease with gangrene in the fourth finger: On amlodipine and Revatio. Hypertension: Continue losartan, atenolol, amlodipine Continue monitor BP Depression: on Duloxetine. Peripheral artery disease: On aspirin, and statin cardio recommended to d/c plavix since pt started on anticoagulant with aspirin DVT Px on Heparin drip Code Status Full Code Admission and Anticipated Discharge Date Admission Date: July 05, 2022 Subjective Pt was seen and examined for follow up of SOB and Afib RVR Lying in bed with no acute distress He said that his breathing improves Denies any chest pain, palpitation, dizziness and fever Review of Systems Review of Systems: All systems reviewed & are unremarkable except as noted in Subjective Physical Exam Physical Exam: General- No acute distress Head- atraumatic Eyes- PERRL, EOMI, ENT- oropharynx clear Neck- supple, no JVD Lungs- clear to auscultation Heart- +tachycardia, irregular rhythm; no murmur Abdomen- normal bowel sounds, soft, nontender Extremities- no calf tenderness, +edema B/L LE Neuro- alert, oriented x 3; PERRL, EOMI; no facial palsy; no dysarthria Skin- warm & dry Results & Data Results & Data ([facility]) Vital Signs (Past 12 Hours) Vital Signs Temp Pulse Resp BP Pulse Ox Pulse Ox O2 Del Method 07/07/22 19:18 36.5 C 114 H 20 110/68 98 Nasal Cannula 07/07/22 17:03 99 07/07/22 15:00 Nasal Cannula 07/07/22 16:02 37.0 C 88 18 114/67 93 Room Air 07/07/22 12:25 36.3 C L 112 H 18 126/76 93 Room Air O2 Del Method O2 Flow Rate O2 Flow Rate 07/07/22 19:18 2.0 07/07/22 17:03 Nasal Cannula 2 07/07/22 15:00 2 07/07/22 16:02 07/07/22 12:25
[2022-07-08] MEDS: METOPROLOL TARTRATE 25 MG TAB PO SCH ×3 (00:05→14:37)
[2022-07-08] MEDS: HEPARIN SODIUM/DEXTROSE 25,000 UNITS/500 ML BAG IV SCH ×2 (05:39→20:19)
[2022-07-08 06:35] LABS: BUN Creatinine Ratio 33.7 (10-20); Calcium 9.6 mg/dl (8.5-10.1); Creatinine Clr Calc Pharmacy 106.8 ml/min; Est GFR (African American) 110.8 ml/min; Est GFR (Non-African American) 95.6 ml/min; Potassium 3.7 mmol/L (3.5-5.1)
[2022-07-08 06:54] LABS: Partial Thromboplastin Ratio 2.2
[2022-07-08 06:55] LABS: Partial Thromboplastin Time 61.3 Seconds (21.0-31.0)
[2022-07-08] MEDS: UMECLIDINIUM BROMIDE 62.5MCG/BLISTER 7 PUFFS/INHALER INH SCH (08:56)
[2022-07-08] MEDS: FOLIC ACID 1 MG TAB PO SCH (08:57)
[2022-07-08] MEDS: FUROSEMIDE 40 MG/4 ML VIAL IV SCH ×2 (08:57→18:35)
[2022-07-08] MEDS: PANTOprazole 40 MG TAB PO SCH (08:57)
[2022-07-08] MEDS: ASPIRIN 81 MG ECTAB PO SCH (08:57)
[2022-07-08] MEDS: predniSONE 5 MG TAB PO SCH (08:57)
--- NOTE | 2022-07-08 12:47 | XRay Report ---
XR chest 1V portable HISTORY: Shortness of breath. COMPARISON: Chest 07/05/2022. FINDINGS: No pneumothorax. No pleural effusions. The heart remains enlarged. There is diffuse interst itial thickening, unchanged. This may represent mild pulmonary edema. No new focal lung consolidation s identified. Advanced degenerative changes within the shoulders. The patient's pulmonary nodules vu cribed on the prior chest CT are not well visualized by this modality. IMPRESSION: 1. Cardiomegaly with mild congestive change. This is similar to the prior study. 2. The patient's known pulmonary nodules are not well visualized by this modality. ACT 112: Negative or not required by law. Electronically signed by: Spencer Christianson M.D. 07/08/2022 12:46 PM
--- NOTE | 2022-07-08 15:13 | Cardiology Progress Note ---
Date of Service July 08, 2022 Assessment & Plan (1) Acute on chronic heart failure with reduced ejection fraction and diastolic dysfunction: (2) Atrial fibrillation with rapid ventricular response: (3) Anemia: Plan 57-year-old male presents with acute decompensated heart failure in the setting of paroxysmal atrial fibrillation with rapid ventricular response and microcytic anemia. 2D transthoracic echocardiogram demonstrates reduced LV systolic function with ejection fraction of 25 to 30% (previously 40-45%). Patient today is now beginning to manifest diuresis. Appears BiPAP has helped with respiratory status heart rate remains elevated Blood pressure now higher likely aiding in renal perfusion after holding amlodipine and losartan We will continue respiratory support IV diuresis Change metoprolol to tartrate to metoprolol succinate given LV dysfunction Depending clinical response restart losartan in a.m. Admission and Anticipated Discharge Date Admission Date: July 05, 2022 Subjective Patient seen and examined, chart, medications, telemetry reviewed. Patient had been gradually improving but more respiratory distress this morning. Placed on BiPAP with patient tolerating Heart rate still elevated 100-110 in atrial fibrillation Brisk diuresis today Physical Exam Constitutional: Patient on BiPAP but appears comfortable Eyes: PERRL, conjunctivae normal, anicteric sclerae Neck: trachea midline, no thyromegaly Respiratory: Auscultation: + rales (Bilateral bases); no rhonchi and no wheezes Cardiovascular: Rate/Rhythm: + tachycardic and + irregularly irregular Heart Sounds: normal S1 and normal S2; no murmur Vessels: + JVD and radial pulses present; no carotid bruit Extremities: + edema (2+ bilateral pretibial edema) Gastrointestinal (Abdomen): Inspection/Auscultation: normal bowel sounds; abdomen not distended and no abdominal edema Percussion/Palpation: abdomen soft; abdomen nontender, no guarding and abdomen not rigid Neurologic: CN's II-XI intact bilaterally and moves all extremities; no focal motor deficits Motor/Sensory: no tremor Psychiatric: A+Ox3, euthymic affect Results & Data ([facility]) Vital Signs (Past 12 Hours) Vital Signs Temp Pulse Pulse Resp BP Pulse Ox O2 Del Method 07/08/22 10:12 86 17 94 07/08/22 12:15 36.4 C L 110 H 18 145/87 H 92 BiPAP 07/08/22 08:00 Nasal Cannula 07/08/22 08:27 36.6 C 98 H 17 134/89 98 Nasal Cannula 07/08/22 04:37 36.7 C 106 H 20 113/73 97 Nasal Cannula 07/08/22 05:17 108 H 138/92 O2 Flow Rate 07/08/22 10:12 2 07/08/22 12:15 07/08/22 08:00 2 07/08/22 08:27 2 07/08/22 04:37 2.0 07/08/22 05:17 Laboratory Results Laboratory Results - last 24 hr 07/08/22 07/08/22 05:48 05:48 APTT 61.3 H* PTT Ratio 2.2 Sodium 136 Potassium 3.7 Chloride 100 Carbon Dioxide 31 Anion Gap 5 BUN 29 H Creatinine 0.86 D Est Cr Clr Drug Dosing 106.8 Est GFR ( Amer) 110.8 Est GFR (Non-Af Amer) 95.6 BUN/Creatinine Ratio 33.7 H Glucose 117 H Calcium 9.6
[2022-07-08] MEDS ORDERED: ALBUT/IPRATROP 3MG/0.5MG NEB 3 ML VIAL NEB PRN (18:30)
[2022-07-08] MEDS: METOPROLOL SUCC 25MG EXT REL TAB PO SCH ×2 (18:36→23:30)
--- NOTE | 2022-07-08 19:06 | Hospitalist Progress Note ---
Date of Service July 08, 2022 Assessment & Plan (1) Acute on chronic heart failure with reduced ejection fraction and diastolic dysfunction: (2) Atrial fibrillation with rapid ventricular response: (3) Elevated troponin: (4) CAD (coronary artery disease): (5) Rheumatoid arthritis: (6) HTN (hypertension): (7) PAD (peripheral artery disease): (8) Raynauds disease: Plan: Acute on chronic heart failure with reduced ejection fraction and diastolic dysfunction Patient is a 57-year-old male with PMHnonobstructive CAD per cardiac catheterization 04/20/2021, PSVT, pulmonary nodules, history of IV drug use, rheumatoid arthritis, hepatitis C s/p treatment, severe Raynaud's disease with gangrene of the 4th finger, following with rheumatology, on amlodipine and Revatio, 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 Left ventricle systolic function is severely reduced with ejection fraction 25 to 30% Continue lasix 40mg IV BID Monitor I/O closely Continue monitor BMP while on IV lasix Atrial fibrillation with rapid ventricular response Currently on Cardizem drip and heparin drip Cardiology recommended to wean cardizem drip Metoprolol tartrate changed to Metoprolol succinate 25 mg q6h Will need oral anticoagulant on discharge Continue monitor closely in tele Elevated troponin Mostly due to demand ischemia in the setting of acute CHF and Afib with RVR Troponin peaked to 247, then trending down to 216 denies any chest pain No current indication for dual antiplatelet therapy Cardiology recommended aspirin and heparin drip Continue statin and beta tyrone Continue monitor Lung Lesions Hstory of pulmonary nodules from prior CT chest CXR showed 2.3 cm nodular opacity projects over the medial right lower lung. Follows with pulmonology as outpatient Hyperlipidemia: Continue statin H/O Rheumatoid arthritis: Previously hydroxychloroquine--was discontinued due to QTC prolongation Currently only steroidl Follows with rheumatology as outpatient H/O heavy drug use. H/O hepatitis C S/P treatment H/O Severe Raynaud disease with gangrene in the fourth finger: On amlodipine and Revatio. Hypertension: Continue losartan, atenolol, amlodipine Continue monitor BP Depression: on Duloxetine. Peripheral artery disease: On aspirin, and statin cardio recommended to d/c plavix since pt started on anticoagulant with aspirin DVT Px on Heparin drip Code Status Full Code Admission and Anticipated Discharge Date Admission Date: July 05, 2022 Subjective Pt was seen and examined for follow up of SOB and Afib RVR Lying in bed with no acute distress Currently he is on BIpap Denies any chest pain, palpitation, dizziness and fever Review of Systems Review of Systems: All systems reviewed & are unremarkable except as noted in Subjective Physical Exam Physical Exam: General- No acute distress Head- atraumatic Eyes- PERRL, EOMI, ENT- oropharynx clear Neck- supple, no JVD Lungs- clear to auscultation Heart- +tachycardia, irregular rhythm; no murmur Abdomen- normal bowel sounds, soft, nontender Extremities- no calf tenderness, +edema B/L LE Neuro- alert, oriented x 3; PERRL, EOMI; no facial palsy; no dysarthria Skin- warm & dry Results & Data Results & Data ([facility]) Vital Signs (Past 12 Hours) Vital Signs Temp Pulse Pulse Resp BP Pulse Ox O2 Del Method 07/08/22 15:00 126 H 07/08/22 08:00 104 H 07/08/22 16:24 36.7 C 112 H 22 129/93 95 BiPAP 07/08/22 10:12 86 17 94 07/08/22 12:15 36.4 C L 110 H 18 145/87 H 92 BiPAP 07/08/22 08:00 Nasal Cannula 07/08/22 08:27 36.6 C 98 H 17 134/89 98 Nasal Cannula O2 Flow Rate 07/08/22 15:00 07/08/22 08:00 07/08/22 16:24 07/08/22 10:12 2 07/08/22 12:15 07/08/22 08:00 2 07/08/22 08:27 2
[2022-07-08] MEDS: ROSUVASTATIN CALCIUM 5 MG TAB PO SCH (20:18)
[2022-07-09] MEDS: METOPROLOL SUCC 25MG EXT REL TAB PO SCH ×4 (05:18→23:11)
--- NOTE | 2022-07-09 06:50 | Ultrasound Report ---
LEFT UPPER EXTREMITY VENOUS DOPPLER HISTORY: Left upper extremity swelling COMPARISON STUDY: None. FINDINGS: The left internal jugular vein is patent. There is normal flow within the left subclavian v ein. There is normal flow and compressibility within the left axillary, basilic, brachial, radial, an d ulnar veins. Thrombus identified within the cephalic vein which measures approximately 1.1 cm in le ngth. This is located at the distal upper arm. IMPRESSION: No DVT within the left upper extremity. Focal thrombus within the left cephalic vein. ACT 112: Negative or not required by law. Electronically signed by: Spencer Christianson M.D. 07/09/2022 6:49 AM
[2022-07-09 07:35] LABS: Partial Thromboplastin Ratio 1.4; Partial Thromboplastin Time 39.3 Seconds (21.0-31.0)
[2022-07-09] MEDS: UMECLIDINIUM BROMIDE 62.5MCG/BLISTER 7 PUFFS/INHALER INH SCH (09:30)
[2022-07-09] MEDS: FUROSEMIDE 40 MG/4 ML VIAL IV SCH ×2 (09:31→17:30)
[2022-07-09] MEDS: PANTOprazole 40 MG TAB PO SCH (09:33)
[2022-07-09] MEDS: predniSONE 5 MG TAB PO SCH (09:33)
[2022-07-09] MEDS: FOLIC ACID 1 MG TAB PO SCH (09:33)
[2022-07-09] MEDS: ASPIRIN 81 MG ECTAB PO SCH (10:41)
[2022-07-09] MEDS: HEPARIN SODIUM/DEXTROSE 25,000 UNITS/500 ML BAG IV SCH (12:53)
[2022-07-09 13:00] LABS: Calcium 9.5 mg/dl (8.5-10.1); Creatinine Clr Calc Pharmacy 110.8 ml/min; Est GFR (African American) 114.1 ml/min; Est GFR (Non-African American) 98.5 ml/min; Potassium 3.3 mmol/L (3.5-5.1)
--- NOTE | 2022-07-09 13:12 | Cardiology Progress Note ---
Date of Service July 09, 2022 Assessment & Plan (1) Acute on chronic heart failure with reduced ejection fraction and diastolic dysfunction: (2) Atrial fibrillation with rapid ventricular response: (3) Anemia: Plan 57-year-old male presents with acute decompensated heart failure in the setting of paroxysmal atrial fibrillation with rapid ventricular response and microcytic anemia. 2D transthoracic echocardiogram demonstrates reduced LV systolic function with ejection fraction of 25 to 30% (previously 40-45%). Patient today is now beginning to manifest diuresis. Appears BiPAP has helped with respiratory status heart rate remains elevated Blood pressure now higher likely aiding in renal perfusion after holding amlodipine and losartan Plan: 07/09/2022 Continue IV furosemide Continue metoprolol succinate 25 every 6. May need to add digoxin if heart rate remains elevated Add spironolactone 25 mg p.o. daily for potassium supplement diuresis Likely restart losartan in a.m. May need to revisit chronic sildenafil usage for Raynaud's, question aiding in pulmonary pressures Admission and Anticipated Discharge Date Admission Date: July 05, 2022 Subjective Patient seen and examined, chart, medications, telemetry reviewed. Patient out of bed this morning but felt uncomfortable and returned to bed. Has manifested brisk diuresis, Greater than 6 L no chest pains or discomfort. Heart rates remain elevated Physical Exam Eyes: PERRL, conjunctivae normal, anicteric sclerae Neck: trachea midline, no thyromegaly Respiratory: Auscultation: + rales (Bilateral bases); no rhonchi and no wheezes Cardiovascular: Rate/Rhythm: + tachycardic and + irregularly irregular Heart Sounds: normal S1 and normal S2; no murmur Vessels: + JVD and radial pulses present; no carotid bruit Extremities: + edema (2+ bilateral pretibial edema) Gastrointestinal (Abdomen): Inspection/Auscultation: normal bowel sounds; abdomen not distended and no abdominal edema Percussion/Palpation: abdomen soft; abdomen nontender, no guarding and abdomen not rigid Neurologic: CN's II-XI intact bilaterally and moves all extremities; no focal motor deficits Motor/Sensory: no tremor Psychiatric: A+Ox3, euthymic affect Results & Data ([facility]) Vital Signs (Past 12 Hours) Vital Signs Temp Pulse Pulse Resp BP Pulse Ox O2 Del Method 07/09/22 11:23 132 H 20 95 07/09/22 11:19 36.6 C 114 H 17 140/96 96 Nasal Cannula 07/09/22 08:09 36.5 C 103 H 17 129/82 99 Nasal Cannula 07/09/22 07:29 Nasal Cannula 07/09/22 05:17 107 H 132/93 07/09/22 04:46 36.8 C 102 H 20 125/88 98 CPAP 07/09/22 04:12 92 H 19 98 O2 Flow Rate 07/09/22 11:23 2 07/09/22 11:19 4 07/09/22 08:09 4 07/09/22 07:29 2 07/09/22 05:17 07/09/22 04:46 07/09/22 04:12 2 Laboratory Results Laboratory Results - last 24 hr 07/09/22 07/09/22 06:31 06:32 APTT 39.3 H PTT Ratio 1.4 Sodium 139 Potassium 3.3 L Chloride 99 Carbon Dioxide 33 H Anion Gap 7 BUN 24 H Creatinine 0.80 Est Cr Clr Drug Dosing 110.8 Est GFR ( Amer) 114.1 Est GFR (Non-Af Amer) 98.5 BUN/Creatinine Ratio 30.0 H Glucose 95 Calcium 9.5
[2022-07-09] MEDS: SPIRONOLACTONE 25 MG TAB PO SCH (13:47)
[2022-07-09 14:53] LABS: Partial Thromboplastin Ratio 1.3; Partial Thromboplastin Time 35.7 Seconds (21.0-31.0)
[2022-07-09] MEDS ORDERED: HEPARIN SOD (PORCINE) 1000 UNIT/ML IV ONE (15:00)
[2022-07-09] MEDS ORDERED: HEPARIN IV BOLUS 3,000 UNITS in SYRINGE 0 ML IV ONE (15:15)
[2022-07-09] MEDS: HYDROCODONE/ACETAMINOPHEN 7.5/325MG TAB PO PRN (15:52)
--- NOTE | 2022-07-09 17:37 | Hospitalist Progress Note ---
Date of Service July 09, 2022 Assessment & Plan (1) Acute on chronic heart failure with reduced ejection fraction and diastolic dysfunction: (2) Atrial fibrillation with rapid ventricular response: (3) Elevated troponin: (4) CAD (coronary artery disease): (5) Rheumatoid arthritis: (6) HTN (hypertension): (7) PAD (peripheral artery disease): (8) Raynauds disease: Plan: Acute on chronic heart failure with reduced ejection fraction and diastolic dysfunction Patient is a 57-year-old male with PMHnonobstructive CAD per cardiac catheterization 04/20/2021, PSVT, pulmonary nodules, history of IV drug use, rheumatoid arthritis, hepatitis C s/p treatment, severe Raynaud's disease with gangrene of the 4th finger, following with rheumatology, on amlodipine and Revatio, 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 Left ventricle systolic function is severely reduced with ejection fraction 25 to 30% Continue lasix 40mg IV BID Spironolactone 25mg added Monitor I/O closely Continue monitor BMP while on IV lasix Atrial fibrillation with rapid ventricular response Currently on Cardizem drip and heparin drip Cardizem drip discontinued Continue Metoprolol succinate 25 mg q6h David transition to PO anticoagulant tomorrow Continue monitor closely in tele Elevated troponin Mostly due to demand ischemia in the setting of acute CHF and Afib with RVR Troponin peaked to 247, then trending down to 216 denies any chest pain No current indication for dual antiplatelet therapy Cardiology recommended aspirin and heparin drip Continue statin and beta tyrone Continue monitor Lung Lesions Hstory of pulmonary nodules from prior CT chest CXR showed 2.3 cm nodular opacity projects over the medial right lower lung. Follows with pulmonology as outpatient Hyperlipidemia: Continue statin H/O Rheumatoid arthritis: Previously hydroxychloroquine--was discontinued due to QTC prolongation Currently only steroidl Follows with rheumatology as outpatient H/O heavy drug use. H/O hepatitis C S/P treatment H/O Severe Raynaud disease with gangrene in the fourth finger: On amlodipine and Revatio. Hypertension: Continue losartan, atenolol, amlodipine Continue monitor BP Depression: on Duloxetine. Peripheral artery disease: On aspirin, and statin cardio recommended to d/c plavix since pt started on anticoagulant with aspirin DVT Px on Heparin drip Code Status Full Code Admission and Anticipated Discharge Date Admission Date: July 05, 2022 Subjective Pt was seen and examined for follow up of SOB and Afib RVR Lying in bed with no acute distress Pt said that his breathing continues to improve Denies any chest pain, palpitation, dizziness and fever Review of Systems Review of Systems: All systems reviewed & are unremarkable except as noted in Subjective Physical Exam Physical Exam: General- No acute distress Head- atraumatic Eyes- PERRL, EOMI, ENT- oropharynx clear Neck- supple, no JVD Lungs- clear to auscultation Heart- +tachycardia, irregular rhythm; no murmur Abdomen- normal bowel sounds, soft, nontender Extremities- no calf tenderness, +edema B/L LE Neuro- alert, oriented x 3; PERRL, EOMI; no facial palsy; no dysarthria Skin- warm & dry Results & Data Results & Data ([facility]) Vital Signs (Past 12 Hours) Vital Signs Temp Pulse Pulse Resp BP Pulse Ox O2 Del Method 07/09/22 15:54 36.9 C 132 H 17 118/76 98 Nasal Cannula 07/09/22 11:23 132 H 20 95 07/09/22 11:19 36.6 C 114 H 17 140/96 96 Nasal Cannula 07/09/22 08:09 36.5 C 103 H 17 129/82 99 Nasal Cannula 07/09/22 07:29 Nasal Cannula O2 Flow Rate 07/09/22 15:54 4 07/09/22 11:23 2 07/09/22 11:19 4 07/09/22 08:09 4 07/09/22 07:29 2
[2022-07-09] MEDS ORDERED: POTASSIUM CHLORIDE CRTAB 20 MEQ TABCR PO STA (18:14)
[2022-07-09] MEDS ORDERED: MAGNESIUM SULFATE / D5W 1 GM/100 ML BAG IV ONE (20:13)
[2022-07-09] MEDS ORDERED: DOXYCYCLINE HYCLATE 100 MG in DEXTROSE 5% 100 ML IV STA (20:14)
[2022-07-09] MEDS ORDERED: ALBUMIN 25% 100 mL 25 GM/100 ML VIAL IV ONE (20:17)
[2022-07-09 20:41] LABS: Magnesium 1.8 mg/dl (1.7-2.4)
[2022-07-09] MEDS: ROSUVASTATIN CALCIUM 5 MG TAB PO SCH (20:50)
[2022-07-09] MEDS ORDERED: POTASSIUM CHLORIDE CRTAB 20 MEQ TABCR PO ONE (21:00)
[2022-07-09] MEDS ORDERED: METOPROLOL TARTRATE 1 MG/ML VIAL IV STA (21:13)
[2022-07-09 22:01] LABS: Basophils # (auto) 0.06 K/uL (0-0.2); Basophils % (auto) 0.6 %; Eosinophils # (auto) 0.24 K/uL (0-0.50); Eosinophils % (auto) 2.6 %; Hematocrit (blood only) 32.5 % (42.0-52.0); Hemoglobin 10.2 g/dl (14.0-18.0); Immature Granulocytes # (auto) 0.05 K/uL (0.01-0.20); Immature Granulocytes % (auto) 0.5 %; Lymphocytes % (auto) 18.4 %; Mean Corpuscular Hemoglobin 24.8 pg (25.0-34.0); Mean Corpuscular Hgb Conc 31.4 g/dL (32.0-36.0); Mean Corpuscular Volume 78.9 fL (80.0-100.0); Mean Platelet Volume 9.9 fL (9.4-12.4); Monocytes # (auto) 0.48 K/uL (0.11-0.59); Monocytes % (auto) 5.2 %; Neutrophils # (auto) 6.72 K/uL (1.40-6.50); Neutrophils % (auto) 72.7 %; Platelet Count 416 K/uL (130-400); RDW Coefficient of Variation 17.1 % (11.5-14.5); RDW Standard Deviation 48.5 fL (36.4-46.3); Red Blood Count 4.12 M/uL (4.70-6.10); White Blood Count 9.25 K/ul (4.8-10.8)
[2022-07-09 23:43] LABS: Partial Thromboplastin Ratio 1.8
[2022-07-09 23:49] LABS: Partial Thromboplastin Time 50.4 Seconds (21.0-31.0)
[2022-07-10] MEDS: HEPARIN SODIUM/DEXTROSE 25,000 UNITS/500 ML BAG IV SCH ×3 (01:20→21:13)
[2022-07-10] MEDS ORDERED: dilTIAZem HCl 5 MG/ML 5 ML VIAL IV STA (04:24)
--- NOTE | 2022-07-10 04:24 | Communication Note ---
Date of Service: July 10, 2022 Late entry Made aware last night by RN of patient left upper extremity pain, redness, and warmth. LUE ultrasound showed focal thrombus left cephalic vein. Ap LUE swelling superficial venous clot on ultrasound ? Possible concomitant cellulitis, immunocompromised patient given prednisone/Enbrel Rx Doxycycline trial Local measures for swelling Will relay to AM provider.
[2022-07-10] MEDS: METOPROLOL SUCC 25MG EXT REL TAB PO SCH (04:36)
[2022-07-10] MEDS ORDERED: ALENDRONATE SODIUM 70 MG TAB PO SCH (06:30)
[2022-07-10 07:38] LABS: Partial Thromboplastin Ratio 2.9
[2022-07-10 07:44] LABS: Partial Thromboplastin Time 79.4 Seconds (21.0-31.0)
[2022-07-10] MEDS: FUROSEMIDE 40 MG/4 ML VIAL IV SCH ×2 (08:23→16:48)
[2022-07-10] MEDS: POTASSIUM CHLORIDE CRTAB 20 MEQ TABCR PO SCH ×2 (08:23→21:19)
[2022-07-10] MEDS: ASPIRIN 81 MG ECTAB PO SCH (08:24)
[2022-07-10] MEDS: FOLIC ACID 1 MG TAB PO SCH (08:24)
[2022-07-10] MEDS: PANTOprazole 40 MG TAB PO SCH (08:24)
[2022-07-10] MEDS: DOXYCYCLINE HYCLATE 100 MG CAP PO SCH ×2 (08:24→21:20)
[2022-07-10] MEDS: UMECLIDINIUM BROMIDE 62.5MCG/BLISTER 7 PUFFS/INHALER INH SCH (08:24)
[2022-07-10] MEDS: SPIRONOLACTONE 25 MG TAB PO SCH (08:24)
[2022-07-10] MEDS: predniSONE 5 MG TAB PO SCH (09:25)
--- NOTE | 2022-07-10 10:04 | Cardiology Progress Note ---
Date of Service July 10, 2022 Assessment & Plan (1) Acute on chronic heart failure with reduced ejection fraction and diastolic dysfunction: (2) Atrial fibrillation with rapid ventricular response: (3) Anemia: Plan 57-year-old male presents with acute decompensated heart failure in the setting of paroxysmal atrial fibrillation with rapid ventricular response and microcytic anemia. 2D transthoracic echocardiogram demonstrates reduced LV systolic function with ejection fraction of 25 to 30% (previously 40-45%). 07/10/2022 Clinically improved after diuresis but now in atrial flutter over atrial fibrillation with higher ventricular response rates We will continue diuresis plus spironolactone Increase metoprolol succinate to 50 mg 3 times daily Add digoxin Would recommend fluid restriction less than 2000 cc if not already done May need to consider DIEGO guided cardioversion if rates do not respond to above but would be at increased risk due to multiple issues Admission and Anticipated Discharge Date Admission Date: July 05, 2022 Subjective Patient seen and examined, chart, medications, telemetry reviewed. Patient less dyspneic today but still tachycardic. Atrial fibrillation now more organized in atrial flutter with rapid ventricular response Continues to have brisk diuresis though weights not reflecting Review of Systems Review of Systems: All systems reviewed & are unremarkable except as noted in Subjective Physical Exam Constitutional: no acute distress Eyes: PERRL, conjunctivae normal, anicteric sclerae Neck: trachea midline, no thyromegaly Respiratory: Auscultation: + rales (Bilateral bases); no rhonchi and no wheezes Cardiovascular: Rate/Rhythm: regular rhythm (Atrial flutter) and + tachycardic Heart Sounds: normal S1 and normal S2; no murmur Vessels: + JVD and radial pulses present; no carotid bruit Extremities: + edema (2+ bilateral pretibial edema) Gastrointestinal (Abdomen): Inspection/Auscultation: normal bowel sounds; abdomen not distended and no abdominal edema Percussion/Palpation: abdomen soft; abdomen nontender, no guarding and abdomen not rigid Neurologic: CN's II-XI intact bilaterally and moves all extremities; no focal motor deficits Motor/Sensory: no tremor Psychiatric: A+Ox3, euthymic affect Results & Data ([facility]) Vital Signs (Past 12 Hours) Vital Signs Temp Pulse Pulse Resp BP Pulse Ox O2 Del Method 07/10/22 07:58 Nasal Cannula 07/10/22 07:06 37.4 C 136 H 20 110/79 96 Room Air 07/10/22 05:03 92 H 07/10/22 03:47 36.6 C 139 H 20 132/92 99 Nasal Cannula 07/10/22 01:10 103 H 26 H 96 07/09/22 23:31 124 H 07/09/22 23:28 36.6 C 101 H 20 144/78 H 94 Room Air O2 Flow Rate 07/10/22 07:58 2 07/10/22 07:06 07/10/22 05:03 07/10/22 03:47 2 07/10/22 01:10 2 07/09/22 23:31 07/09/22 23:28 Laboratory Results Laboratory Results - last 24 hr 07/09/22 07/09/22 07/09/22 06:32 13:49 21:12 WBC 9.25 RBC 4.12 L Hgb 10.2 L Hct 32.5 L MCV 78.9 L MCH 24.8 L MCHC 31.4 L RDW Std Deviation 48.5 H RDW Coeff of Alex 17.1 H Plt Count 416 H MPV 9.9 Immature Gran % (Auto) 0.5 Neut % (Auto) 72.7 Lymph % (Auto) 18.4 Waldo % (Auto) 5.2 Eos % (Auto) 2.6 Baso % (Auto) 0.6 Neut # (Auto) 6.72 H Lymph # (Auto) 1.70 Waldo # (Auto) 0.48 Eos # (Auto) 0.24 Baso # (Auto) 0.06 Immature Gran # (Auto) 0.05 APTT 35.7 H PTT Ratio 1.3 Sodium 139 Potassium 3.3 L Chloride 99 Carbon Dioxide 33 H Anion Gap 7 BUN 24 H Creatinine 0.80 Est Cr Clr Drug Dosing 110.8 Est GFR ( Amer) 114.1 Est GFR (Non-Af Amer) 98.5 BUN/Creatinine Ratio 30.0 H Glucose 95 Calcium 9.5 Magnesium 1.8 Total Creatine Kinase 07/09/22 07/09/22 07/10/22 21:23 22:42 06:09 WBC RBC Hgb Hct MCV MCH MCHC RDW Std Deviation RDW Coeff of Alex Plt Count MPV Immature Gran % (Auto) Neut % (Auto) Lymph % (Auto) Waldo % (Auto) Eos % (Auto) Baso % (Auto) Neut # (Auto) Lymph # (Auto) Waldo # (Auto) Eos # (Auto) Baso # (Auto) Immature Gran # (Auto) APTT 50.4 H* 79.4 H* PTT Ratio 1.8 2.9 Sodium Potassium Chloride Carbon Dioxide Anion Gap BUN Creatinine Est Cr Clr Drug Dosing Est GFR ( Amer) Est GFR (Non-Af Amer) BUN/Creatinine Ratio Glucose Calcium Magnesium Total Creatine Kinase 17 L 07/10/22 06:16 WBC RBC Hgb Hct MCV MCH MCHC RDW Std Deviation RDW Coeff of Alex Plt Count MPV Immature Gran % (Auto) Neut % (Auto) Lymph % (Auto) Waldo % (Auto) Eos % (Auto) Baso % (Auto) Neut # (Auto) Lymph # (Auto) Waldo # (Auto) Eos # (Auto) Baso # (Auto) Immature Gran # (Auto) APTT PTT Ratio Sodium 139 Potassium 3.7 Chloride 100 Carbon Dioxide 34 H Anion Gap 5 BUN 19 Creatinine 0.85 Est Cr Clr Drug Dosing 107.2 Est GFR ( Amer) 111.3 Est GFR (Non-Af Amer) 96.0 BUN/Creatinine Ratio 22.4 H Glucose 123 H Calcium 9.3 Magnesium 2.0 Total Creatine Kinase
[2022-07-10 10:06] LABS: BUN Creatinine Ratio 22.4 (10-20); Calcium 9.3 mg/dl (8.5-10.1); Creatinine Clr Calc Pharmacy 107.2 ml/min; Est GFR (African American) 111.3 ml/min; Potassium 3.7 mmol/L (3.5-5.1)
[2022-07-10] MEDS ORDERED: DIGOXIN 250 MCG in SYRINGE 9 ML IV ONE (11:30)
[2022-07-10] MEDS: METOPROLOL SUCC 50MG EXT REL TAB PO SCH ×2 (12:32→21:20)
[2022-07-10] MEDS ORDERED: DIGOXIN 0.25 MG TAB PO SCH (16:00)
--- NOTE | 2022-07-10 16:24 | Hospitalist Progress Note ---
Date of Service July 10, 2022 Assessment & Plan (1) Acute on chronic heart failure with reduced ejection fraction and diastolic dysfunction: (2) Atrial fibrillation with rapid ventricular response: (3) Elevated troponin: (4) CAD (coronary artery disease): (5) Rheumatoid arthritis: (6) HTN (hypertension): (7) PAD (peripheral artery disease): (8) Raynauds disease: Plan: Acute on chronic heart failure with reduced ejection fraction and diastolic dysfunction Patient is a 57-year-old male with PMHnonobstructive CAD per cardiac catheterization 04/20/2021, PSVT, pulmonary nodules, history of IV drug use, rheumatoid arthritis, hepatitis C s/p treatment, severe Raynaud's disease with gangrene of the 4th finger, following with rheumatology, on amlodipine and Revatio, 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 Left ventricle systolic function is severely reduced with ejection fraction 25 to 30% Continue Spironolactone and lasix 40mg IV BID. Pt continues diuresis well Monitor I/O closely Fluid restriction at 1800ml daily Continue monitor BMP while on IV lasix clinically improves significantly Atrial fibrillation with rapid ventricular response Currently on Cardizem drip and heparin drip Cardizem drip discontinued Metoprolol succinate increased to 50 mg q8h Starting on Digoxin I called the pharmacy to check the stephens on Eliquis, that will be $3 dollars monthly and pt able to afford it will transition to eliquis tonight Continue monitor closely in tele Elevated troponin Mostly due to demand ischemia in the setting of acute CHF and Afib with RVR Troponin peaked to 247, then trending down to 216 denies any chest pain No current indication for dual antiplatelet therapy Cardiology recommended aspirin and heparin drip Continue statin and beta tyrone Continue monitor Lung Lesions History of pulmonary nodules from prior CT chest CXR showed 2.3 cm nodular opacity projects over the medial right lower lung. Follows with pulmonology as outpatient schedule for repeat CT chest on 07/11 outpatient Pt would like to know if he can get it done while in the hospital. Will notify his specialist first LUE swelling/erythema LUE doppler showed no DVT within the left upper extremity. Focal thrombus within the left cephalic vein. Doxy was started for possible cellulitis, doubt of cellulitis Will continue monitor and reeval tomorrow Hyperlipidemia: Continue statin H/O Rheumatoid arthritis: Previously hydroxychloroquine--was discontinued due to QTC prolongation Currently only steroid Follows with rheumatology as outpatient H/O heavy drug use. H/O hepatitis C S/P treatment H/O Severe Raynaud disease with gangrene in the fourth finger: On amlodipine and Revatio. Hypertension: Continue losartan, atenolol, amlodipine Continue monitor BP Depression: on Duloxetine. Peripheral artery disease: On aspirin, and statin cardio recommended to d/c plavix since pt started on anticoagulant with aspirin DVT Px on Heparin drip for now Code Status Full Code Admission and Anticipated Discharge Date Admission Date: July 05, 2022 Subjective Pt was seen and examined for follow up of SOB and Afib RVR Lying in bed with no acute distress Pt said that his breathing continues to improve I went back later to check on him and updated the at bedside at length and answered all her questions I called the pharmacy to check the stephens on Eliquis, that will be $3 dollars monthly and pt able to afford it Denies any chest pain, palpitation, dizziness and fever Review of Systems Review of Systems: All systems reviewed & are unremarkable except as noted in Subjective Physical Exam Physical Exam: General- No acute distress Head- atraumatic Eyes- PERRL, EOMI, ENT- oropharynx clear Neck- supple, no JVD Lungs- clear to auscultation Heart- +tachycardia, irregular rhythm; no murmur Abdomen- normal bowel sounds, soft, nontender Extremities- no calf tenderness, +edema B/L LE Neuro- alert, oriented x 3; PERRL, EOMI; no facial palsy; no dysarthria Skin- warm & dry Results & Data Results & Data ([facility]) Vital Signs (Past 12 Hours) Vital Signs Temp Pulse Pulse Resp BP Pulse Ox O2 Del Method 07/10/22 15:13 36.6 C 144 H 20 121/75 98 Room Air 07/10/22 12:32 144 H 07/10/22 10:56 36.6 C 124 H 20 119/81 94 Room Air 07/10/22 07:58 Nasal Cannula 07/10/22 07:06 37.4 C 136 H 20 110/79 96 Room Air 07/10/22 05:03 92 H O2 Flow Rate 07/10/22 15:13 07/10/22 12:32 07/10/22 10:56 07/10/22 07:58 2 07/10/22 07:06 07/10/22 05:03
[2022-07-10] MEDS ORDERED: HEPARIN STOP ORDER ONE (20:00)
[2022-07-10] MEDS: APIXABAN 5 MG TABLET PO SCH (21:20)
[2022-07-10] MEDS: ROSUVASTATIN CALCIUM 5 MG TAB PO SCH (21:20)
[2022-07-11] MEDS: HEPARIN SODIUM/DEXTROSE 25,000 UNITS/500 ML BAG IV SCH ×3 (08:43→08:46)
[2022-07-11] MEDS: APIXABAN 5 MG TABLET PO SCH ×2 (08:48→20:00)
[2022-07-11] MEDS: DOXYCYCLINE HYCLATE 100 MG CAP PO SCH ×2 (08:48→20:00)
[2022-07-11] MEDS: ASPIRIN 81 MG ECTAB PO SCH (08:48)
[2022-07-11] MEDS: PANTOprazole 40 MG TAB PO SCH ×2 (08:49→10:31)
[2022-07-11] MEDS: FOLIC ACID 1 MG TAB PO SCH (08:49)
[2022-07-11] MEDS: METOPROLOL SUCC 50MG EXT REL TAB PO SCH ×3 (08:49→20:00)
[2022-07-11] MEDS: FUROSEMIDE 40 MG/4 ML VIAL IV SCH ×2 (08:49→18:10)
[2022-07-11] MEDS: predniSONE 5 MG TAB PO SCH (08:50)
[2022-07-11] MEDS: UMECLIDINIUM BROMIDE 62.5MCG/BLISTER 7 PUFFS/INHALER INH SCH (08:50)
[2022-07-11] MEDS: SPIRONOLACTONE 25 MG TAB PO SCH ×2 (08:50→10:31)
[2022-07-11] MEDS: POTASSIUM CHLORIDE CRTAB 20 MEQ TABCR PO SCH ×2 (08:52→20:00)
[2022-07-11] MEDS: HYDROCODONE/ACETAMINOPHEN 7.5/325MG TAB PO PRN ×2 (10:34→18:36)
[2022-07-11 12:51] LABS: Hemoglobin 11.7 g/dl (14.0-18.0); Mean Corpuscular Hemoglobin 24.6 pg (25.0-34.0); Mean Corpuscular Hgb Conc 31.6 g/dL (32.0-36.0); Mean Corpuscular Volume 77.9 fL (80.0-100.0); Mean Platelet Volume 9.3 fL (9.4-12.4); Platelet Count 456 K/uL (130-400); RDW Coefficient of Variation 17.3 % (11.5-14.5); RDW Standard Deviation 48.5 fL (36.4-46.3); Red Blood Count 4.75 M/uL (4.70-6.10); White Blood Count 11.84 K/ul (4.8-10.8)
--- NOTE | 2022-07-11 13:17 | Cardiology Progress Note ---
Date of Service July 11, 2022 Assessment & Plan (1) Acute on chronic heart failure with reduced ejection fraction and diastolic dysfunction: (2) Atrial fibrillation with rapid ventricular response: (3) Anemia: Plan 57-year-old male presents with acute decompensated heart failure in the setting of paroxysmal atrial fibrillation with rapid ventricular response and microcytic anemia. 2D transthoracic echocardiogram demonstrates reduced LV systolic function with ejection fraction of 25 to 30% (previously 40-45%). 07/10/2022 Clinically improved after diuresis but now in atrial flutter over atrial fibrillation with higher ventricular response rates We will continue diuresis plus spironolactone Increase metoprolol succinate to 50 mg 3 times daily Add digoxin Would recommend fluid restriction less than 2000 cc if not already done May need to consider DIEGO guided cardioversion if rates do not respond to above but would be at increased risk due to multiple issues 07/11/2022 Patient continues diuresis with mild contraction parameters on the laboratory testing No further atrial fibrillation slowing despite significant medical therapies and do not expect additional medical therapies will aid in short run Plan: Hold furosemide after evening dose Hold digoxin and metoprolol. We will tentatively arrange DIEGO guided synchronized electrical cardioversion for tomorrow. Patient n.p.o. after midnight Further plans after Discussed with and patient Admission and Anticipated Discharge Date Admission Date: July 05, 2022 Subjective Patient seen and examined, chart, medications, telemetry reviewed. Has manifested continued diuresis lying flat in bed without difficulty no dyspnea no hypoxia Heart rate still elevated 130s despite significant medical therapy Review of Systems Review of Systems: All systems reviewed & are unremarkable except as noted in Subjective Physical Exam Constitutional: no acute distress Eyes: PERRL, conjunctivae normal, anicteric sclerae Neck: trachea midline, no thyromegaly Respiratory: Auscultation: + rales (Bilateral bases); no rhonchi and no wheezes Cardiovascular: Rate/Rhythm: + tachycardic and + irregularly irregular Heart Sounds: normal S1 and normal S2; no murmur Vessels: radial pulses present; no carotid bruit Gastrointestinal (Abdomen): Inspection/Auscultation: normal bowel sounds; abdomen not distended and no abdominal edema Percussion/Palpation: abdomen soft; abdomen nontender, no guarding and abdomen not rigid Skin: no rashes, warm and dry Neurologic: CN's II-XI intact bilaterally and moves all extremities; no focal motor deficits Motor/Sensory: no tremor Psychiatric: A+Ox3, euthymic affect Results & Data ([facility]) Vital Signs (Past 12 Hours) Vital Signs Temp Pulse Pulse Resp BP BP Pulse Ox 07/11/22 11:27 36.4 C L 149 H 19 119/86 97 07/11/22 08:00 07/11/22 07:46 36.4 C L 145 H 20 111/78 93 07/11/22 06:44 110 H 07/11/22 04:55 107 H 21 95 07/11/22 04:31 36.6 C 136 H 22 102/76 98 O2 Del Method O2 Flow Rate 07/11/22 11:27 Room Air 07/11/22 08:00 Room Air 07/11/22 07:46 Room Air 07/11/22 06:44 07/11/22 04:55 2 07/11/22 04:31 Room Air Laboratory Results Laboratory Results - last 24 hr 07/11/22 07/11/22 12:21 12:21 WBC 11.84 H RBC 4.75 Hgb 11.7 L Hct 37.0 L MCV 77.9 L MCH 24.6 L MCHC 31.6 L RDW Std Deviation 48.5 H RDW Coeff of Alex 17.3 H Plt Count 456 H MPV 9.3 L Sodium 138 Potassium 4.6 D Chloride 100 Carbon Dioxide 31 Anion Gap 7 BUN 24 H Creatinine 0.82 Est Cr Clr Drug Dosing 108.3 Est GFR ( Amer) 113.0 Est GFR (Non-Af Amer) 97.5 BUN/Creatinine Ratio 29.3 H Glucose 113 H Calcium 10.4 H Magnesium 1.8
[2022-07-11 13:51] LABS: BUN Creatinine Ratio 29.3 (10-20); Calcium 10.4 mg/dl (8.5-10.1); Creatinine Clr Calc Pharmacy 108.3 ml/min; Est GFR (Non-African American) 97.5 ml/min; Magnesium 1.8 mg/dl (1.7-2.4); Potassium 4.6 mmol/L (3.5-5.1)
--- NOTE | 2022-07-11 17:59 | Hospitalist Progress Note ---
Date of Service July 11, 2022 Assessment & Plan (1) Acute on chronic heart failure with reduced ejection fraction and diastolic dysfunction: (2) Atrial fibrillation with rapid ventricular response: (3) Elevated troponin: (4) CAD (coronary artery disease): (5) Rheumatoid arthritis: (6) HTN (hypertension): (7) PAD (peripheral artery disease): (8) Raynauds disease: Plan: Acute on chronic heart failure with reduced ejection fraction and diastolic dysfunction Patient is a 57-year-old male with PMHnonobstructive CAD per cardiac catheterization 04/20/2021, PSVT, pulmonary nodules, history of IV drug use, rheumatoid arthritis, hepatitis C s/p treatment, severe Raynaud's disease with gangrene of the 4th finger, following with rheumatology, on amlodipine and Revatio, 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 Left ventricle systolic function is severely reduced with ejection fraction 25 to 30% Currently diuresis well with Spironolactone and lasix 40mg IV BID. Monitor I/O closely Fluid restriction at 2000 ml daily Continue monitor BMP while on IV lasix Cardiology recommended to hold Lasix and Spironolactone since pt will be NPO for cardioversion clinically improves significantly Atrial fibrillation with rapid ventricular response Currently on Cardizem drip and heparin drip Cardizem drip discontinued Currently on Metoprolol succinate 50 mg q8h and Digoxin I called the pharmacy to check the stephens on Eliquis, that will be $3 dollars monthly and pt able to afford it. Transition to Eliquis Case discussed with cardiology that suggested no additional medical therapies that will help with rate control and convert to sinus Hold Metoprolol, lasix and digoxin as per cardiology Tentatively arrange DIEGO guided synchronized electrical cardioversion for tomorrow. Patient n.p.o. after midnight Elevated troponin Mostly due to demand ischemia in the setting of acute CHF and Afib with RVR Troponin peaked to 247, then trending down to 216 denies any chest pain No current indication for dual antiplatelet therapy Cardiology recommended aspirin and heparin drip Continue statin and beta tyrone Continue monitor Lung Lesions History of pulmonary nodules from prior CT chest CXR showed 2.3 cm nodular opacity projects over the medial right lower lung. Follows with pulmonology as outpatient schedule for repeat CT chest on 07/11 outpatient Pt would like to know if he can get it done while in the hospital. Will try to send a notification to his specialist to check if ok to get CT chest done while here LUE swelling/erythema LUE doppler showed no DVT within the left upper extremity. Focal thrombus within the left cephalic vein. Doxy was started for possible cellulitis, doubt of cellulitis Erythema improved Continue monitor Hyperlipidemia: Continue statin H/O Rheumatoid arthritis: Previously hydroxychloroquine--was discontinued due to QTC prolongation Currently only steroid Follows with rheumatology as outpatient H/O heavy drug use. H/O hepatitis C S/P treatment H/O Severe Raynaud disease with gangrene in the fourth finger: On amlodipine and Revatio. Hypertension: Continue losartan, atenolol, amlodipine Continue monitor BP Depression: on Duloxetine. Peripheral artery disease: On aspirin, and statin cardio recommended to d/c plavix since pt started on anticoagulant with aspirin DVT Px on Transition to Eliquis Code Status Full Code Admission and Anticipated Discharge Date Admission Date: July 05, 2022 Subjective Pt was seen and examined for follow up of SOB and Afib RVR Sitting in chair with no acute distress watching TV He said that his breathing improved significantly He saturated well on RA Telemonitor showed Afib with RVR Spoke to cardiology about to start cardizem drip Since pt is asymptomatic and plan for cardioversion cardiology suggested not to start cardizem drip that can lead to bradycardia after cardioversion Denies any chest pain, palpitation, dizziness and fever Review of Systems Review of Systems: All systems reviewed & are unremarkable except as noted in Subjective Physical Exam Physical Exam: General- No acute distress Head- atraumatic Eyes- PERRL, EOMI, ENT- oropharynx clear Neck- supple, no JVD Lungs- clear to auscultation Heart- +tachycardia, irregular rhythm; no murmur Abdomen- normal bowel sounds, soft, nontender Extremities- no calf tenderness, +edema B/L LE Neuro- alert, oriented x 3; PERRL, EOMI; no facial palsy; no dysarthria Skin- warm & dry Results & Data Results & Data ([facility]) Vital Signs (Past 12 Hours) Vital Signs Temp Pulse Resp BP BP Pulse Ox O2 Del Method 07/11/22 15:47 36.4 C L 135 H 20 110/80 98 Room Air 07/11/22 11:27 36.4 C L 149 H 19 119/86 97 Room Air 07/11/22 08:00 Room Air 07/11/22 07:46 36.4 C L 145 H 20 111/78 93 Room Air 07/11/22 06:44 110 H
[2022-07-11] MEDS: ROSUVASTATIN CALCIUM 5 MG TAB PO SCH (20:01)
[2022-07-12 06:11] LABS: Hematocrit (blood only) 36.7 % (42.0-52.0); Hemoglobin 11.5 g/dl (14.0-18.0); Mean Corpuscular Hemoglobin 24.6 pg (25.0-34.0); Mean Corpuscular Hgb Conc 31.3 g/dL (32.0-36.0); Mean Corpuscular Volume 78.4 fL (80.0-100.0); Mean Platelet Volume 9.8 fL (9.4-12.4); Platelet Count 438 K/uL (130-400); RDW Coefficient of Variation 17.4 % (11.5-14.5); RDW Standard Deviation 49.3 fL (36.4-46.3); Red Blood Count 4.68 M/uL (4.70-6.10)
[2022-07-12] MEDS ORDERED: BENZOCAINE/TETRACAIN/BUTAM 50 APPLN/5 GM CAN EXT ONE (08:11)
[2022-07-12 08:18] LABS: Calcium 9.8 mg/dl (8.5-10.1); Creatinine Clr Calc Pharmacy 94.8 ml/min; Est GFR (African American) 104.5 ml/min; Est GFR (Non-African American) 90.2 ml/min; Potassium 4.3 mmol/L (3.5-5.1)
--- NOTE | 2022-07-12 08:42 | Hospitalist Progress Note ---
Date of Service July 12, 2022 Assessment & Plan (1) Acute on chronic heart failure with reduced ejection fraction and diastolic dysfunction: (2) Atrial fibrillation with rapid ventricular response: (3) Elevated troponin: (4) CAD (coronary artery disease): (5) Rheumatoid arthritis: (6) HTN (hypertension): (7) PAD (peripheral artery disease): (8) Raynauds disease: Plan: Acute on chronic heart failure with reduced ejection fraction and diastolic dysfunction Patient is a 57-year-old male with PMHnonobstructive CAD per cardiac catheterization 04/20/2021, PSVT, pulmonary nodules, history of IV drug use, rheumatoid arthritis, hepatitis C s/p treatment, severe Raynaud's disease with gangrene of the 4th finger, following with rheumatology, on amlodipine and Revatio, 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 Left ventricle systolic function is severely reduced with ejection fraction 25 to 30% Currently diuresis well with Spironolactone and lasix 40mg IV daily Monitor I/O closely Fluid restriction at 2000 ml daily Continue monitor BMP while on IV lasix Now s/p DIEGO and cardioversion (07/12/2022) clinically improved Now on metoprolol succinate at 50 mg a.m., 25 mg p.m Possibly resume losartan in a.m. Maintain full anticoagulation with Eliquis as ordered Atrial fibrillation with rapid ventricular response Initially on Cardizem drip and heparin drip Cardizem drip discontinued Currently on Metoprolol succinate as above and Digoxin [place] on Eliquis checked, $3 dollars monthly and pt able to afford it. Transition to Eliquis S/p DIEGO and cardioversion (07/12) as above Elevated troponin Mostly due to demand ischemia in the setting of acute CHF and Afib with RVR Troponin peaked to 247, then trending down to 216 denies any chest pain No current indication for dual antiplatelet therapy Cardiology recommended aspirin and heparin drip Continue statin and beta tyrone Continue monitor Lung Lesions History of pulmonary nodules from prior CT chest CXR showed 2.3 cm nodular opacity projects over the medial right lower lung. Follows with pulmonology as outpatient schedule for repeat CT chest on 07/11 outpatient LUE swelling/erythema LUE doppler showed no DVT within the left upper extremity. Focal thrombus within the left cephalic vein. Doxy was started for possible cellulitis, doubt of cellulitis Erythema improved Continue monitor Hyperlipidemia: Continue statin H/O Rheumatoid arthritis: Previously hydroxychloroquine--was discontinued due to QTC prolongation Currently only steroid Follows with rheumatology as outpatient H/O heavy drug use. H/O hepatitis C S/P treatment H/O Severe Raynaud disease with gangrene in the fourth finger: On amlodipine and Revatio. Hypertension: Continue losartan, atenolol, amlodipine Continue monitor BP Depression: on Duloxetine. Peripheral artery disease: On aspirin, and statin cardio recommended to d/c plavix since pt started on anticoagulant with aspirin DVT Px on Transition to Eliquis Code Status Full Code Admission and Anticipated Discharge Date Admission Date: July 05, 2022 Subjective Pt was seen and examined for follow up of SOB and Afib RVR Sitting in chair in no acute distress Underwent DIEGO and cardioversion earlier today Reports breathing improved but still feels winded Denies any chest pain, palpitation, dizziness or fever or cough Review of Systems Review of Systems: All systems reviewed & are unremarkable except as noted in Subjective Physical Exam Physical Exam: General- obese M in No acute distress Head- atraumatic Eyes- PERRL, EOMI, ENT- oropharynx clear Neck- supple, no JVD Lungs- + basilar crackles, no wheezes Heart- rrr; no murmur Abdomen- normal bowel sounds, soft, nontender, + obese Extremities- no calf tenderness, +edema B/L LE, moves extremities Neuro- alert, oriented x 3; PERRL, EOMI; no facial palsy, moves extremities Skin- warm & dry Results & Data Results & Data ([facility]) Vital Signs (Past 12 Hours) Vital Signs Temp Pulse Pulse Resp BP BP Pulse Ox 07/12/22 08:17 36.8 C 148 H 20 112/87 92 07/12/22 08:16 36.7 C 147 H 19 112/82 98 07/12/22 04:00 36.4 C 145 H 20 116/83 98 07/12/22 02:26 24 95 07/12/22 00:15 110 H 30 H 96 07/11/22 22:59 126 H 07/11/22 22:55 36.5 C 133 H 16 117/81 90 O2 Del Method O2 Flow Rate 07/12/22 08:17 Room Air 07/12/22 08:16 Room Air 07/12/22 04:00 Room Air 07/12/22 02:26 2 07/12/22 00:15 2 07/11/22 22:59 07/11/22 22:55 Room Air Laboratory Results 07/12/22 07/12/22 07/11/22 Range/Units 05:29 05:29 12:21 WBC 11.00 H (4.8-10.8) K/ul RBC 4.68 L (4.70-6.10) M/uL Hgb 11.5 L (14.0-18.0) g/dl Hct 36.7 L (42.0-52.0) % MCV 78.4 L (80.0-100.0) fL MCH 24.6 L (25.0-34.0) pg MCHC 31.3 L (32.0-36.0) g/dL RDW Std Deviation 49.3 H (36.4-46.3) fL RDW Coeff of Alex 17.4 H (11.5-14.5) % Plt Count 438 H (130-400) K/uL MPV 9.8 (9.4-12.4) fL Sodium 139 138 (136-145) mmol/L Potassium 4.3 4.6 D (3.5-5.1) mmol/L Chloride 101 100 (98-107) mmol/L Carbon Dioxide 32 31 (21-32) mmol/L Anion Gap 6 7 (3-11) BUN 27 H 24 H (6-23) mg/dl Creatinine 0.93 0.82 (0.6-1.4) mg/dl Est Cr Clr Drug Dosing 94.8 108.3 ml/min Est GFR ( Amer) 104.5 113.0 ml/min Est GFR (Non-Af Amer) 90.2 97.5 ml/min BUN/Creatinine Ratio 29.0 H 29.3 H (10-20) Glucose 102 H 113 H (70-99(Fasting)) mg/dl Calcium 9.8 10.4 H (8.5-10.1) mg/dl Magnesium 1.8 (1.7-2.4) mg/dl 07/11/22 Range/Units 12:21 WBC 11.84 H (4.8-10.8) K/ul RBC 4.75 (4.70-6.10) M/uL Hgb 11.7 L (14.0-18.0) g/dl Hct 37.0 L (42.0-52.0) % MCV 77.9 L (80.0-100.0) fL MCH 24.6 L (25.0-34.0) pg MCHC 31.6 L (32.0-36.0) g/dL RDW Std Deviation 48.5 H (36.4-46.3) fL RDW Coeff of Alex 17.3 H (11.5-14.5) % Plt Count 456 H (130-400) K/uL MPV 9.3 L (9.4-12.4) fL Sodium (136-145) mmol/L Potassium (3.5-5.1) mmol/L Chloride (98-107) mmol/L Carbon Dioxide (21-32) mmol/L Anion Gap (3-11) BUN (6-23) mg/dl Creatinine (0.6-1.4) mg/dl Est Cr Clr Drug Dosing ml/min Est GFR ( Amer) ml/min Est GFR (Non-Af Amer) ml/min BUN/Creatinine Ratio (10-20) Glucose (70-99(Fasting)) mg/dl Calcium (8.5-10.1) mg/dl Magnesium (1.7-2.4) mg/dl Medications Administered Current Inpatient Medications Acetaminophen (Acetaminophen 325 Mg Tab) 650 mg PO Q4H PRN PRN Reason: Pain or Fever Stop: 08/05/22 01:13 Hydrocodone Bitart/Acetaminophen (Hydrocodone/Acetaminophen 7.5/325mg Tab) 1 tab PO Q8 PRN PRN Reason: Pain Stop: 07/20/22 01:13 Last Admin: 07/11/22 18:36 Dose: 1 tab Albuterol (Albut/Ipratrop 3mg/0.5mg Neb 3 Ml Vial) 3 ml NEB QIDR PRN; Protocol PRN Reason: Shortness Of Breath Stop: 08/07/22 18:59 Last Admin: 07/08/22 19:36 Dose: 3 ml Alendronate Sodium (Alendronate Sodium 70 Mg Tab) 70 mg PO Sa [facility] Stop: 08/09/22 06:29 Last Admin: 07/10/22 06:13 Dose: 70 mg Amlodipine Besylate (Amlodipine Besylate 5 Mg Tab) 2.5 mg PO HS MAIRA Stop: 08/05/22 20:59 Last Admin: 07/06/22 21:08 Dose: 2.5 mg Apixaban (Apixaban 5 Mg Tablet) 5 mg PO BID MAIRA Stop: 08/09/22 20:59 Last Admin: 07/11/22 20:00 Dose: 5 mg Aspirin (Aspirin 81 Mg Ectab) 81 mg PO DAILY MAIRA Stop: 08/05/22 08:59 Last Admin: 07/11/22 08:48 Dose: 81 mg Digoxin (Digoxin 0.25 Mg Tab) 0.25 mg PO DAILY@1600 [facility] Stop: 08/09/22 15:59 Last Admin: 07/10/22 16:49 Dose: 0.25 mg Doxycycline Hyclate (Doxycycline Hyclate 100 Mg Cap) 100 mg PO BID MAIRA Stop: 07/17/22 08:59 Last Admin: 07/11/22 20:00 Dose: 100 mg Folic Acid (Folic Acid 1 Mg Tab) 1 mg PO DAILY [facility] Stop: 08/05/22 08:59 Last Admin: 07/11/22 08:49 Dose: 1 mg Furosemide (Furosemide 40 Mg/4 Ml Vial) 40 mg IV [id number] [facility]A Stop: 08/05/22 16:59 Last Admin: 07/11/22 18:10 Dose: 40 mg Promethazine HCl 12.5 mg/ (Sodium Chloride) 50.5 mls @ 202 mls/hr IV Q6H PRN PRN Reason: Nausea And Vomiting Stop: 08/05/22 01:13 Losartan Potassium (Losartan Potassium 25 Mg Tab) 12.5 mg PO QPM [facility] Stop: 08/05/22 20:59 Last Admin: 07/06/22 21:08 Dose: 12.5 mg Metoprolol Succinate (Metoprolol Succ 50mg Ext Rel Tab) 50 mg PO TID MAIRA Stop: 08/09/22 13:59 Last Admin: 07/11/22 20:00 Dose: 50 mg Pantoprazole Sodium (Pantoprazole 40 Mg Tab) 40 mg PO DAILY [facility] Stop: 08/05/22 08:59 Last Admin: 07/11/22 10:31 Dose: 40 mg Potassium Chloride (Potassium Chloride Crtab 20 Meq Tabcr) 20 meq PO BID MAIRA Stop: 08/09/22 08:59 Last Admin: 07/11/22 20:00 Dose: 20 meq Prednisone (Prednisone 5 Mg Tab) 5 mg PO DAILY MAIRA Stop: 08/05/22 08:59 Last Admin: 07/11/22 08:50 Dose: 5 mg Rosuvastatin Calcium (Rosuvastatin Calcium 5 Mg Tab) 5 mg PO QPM [facility]A Stop: 08/05/22 20:59 Last Admin: 07/11/22 20:01 Dose: 5 mg Sildenafil Citrate (Sildenafil Citrate 20 Mg Tablet) 20 mg PO BID MAIRA Stop: 08/05/22 08:59 Last Admin: 07/06/22 08:59 Dose: 20 mg Spironolactone (Spironolactone 25 Mg Tab) 25 mg PO QAM [facility] Stop: 08/08/22 13:29 Last Admin: 07/11/22 10:31 Dose: 25 mg Umeclidinium [place] (Umeclidinium [place] 62.5mcg/Blister 7 Puffs/Inhaler) 1 puffs INH DAILY MAIRA Stop: 08/05/22 08:59 Last Admin: 07/11/22 08:50 Dose: 1 puffs
[2022-07-12] MEDS ORDERED: fentaNYL citrate 100 MCG/2 ML VIAL ONE (08:46)
[2022-07-12] MEDS ORDERED: PROPOFOL IV EMULSION 10 MG/ML 20 ML VIAL IV ONE (08:46)
[2022-07-12] MEDS ORDERED: LIDOCAINE 2% MPF LOCAL 5 ML VIAL INFIL ONE (08:46)
--- NOTE | 2022-07-12 09:10 | Anesthesiology Consultation ---
Date of Service July 12, 2022 Assessment & Plan Chart Review Chart Review: Acceptable Risk for Surgery and Patient NOT seen in Pre Admission Testing Consults Requested none ASA ASA4 Proposed Anesthesia Anesthesia Type: MAC Risk / Benefits Reviewed With: PT / POA / Parent / Guardian, Accepts Plan and Informed Consent Obtained History Surgery Operation Date: 07/12/22 13:00 Proposed Procedures p Transesophageal Echo - Michael Allen MD s Cardioversion - Michael Allen MD Height/Weight Height: 5 ft 7 in Weight: 94.4 kg Allergies Allergy/AdvReac Type Severity Reaction Status Date / Time No Known Allergies Allergy Verified 07/05/22 20:43 Medications Home Medications Medication Instructions Recorded Confirmed Last Taken aspirin 81 mg tablet,delayed 81 mg PO DAILY 04/04/21 07/05/22 07/05/22 release (Bob Low Dose Aspirin) folic acid 1 mg tablet 1 mg PO DAILY 04/04/21 07/05/22 07/05/22 omeprazole 40 mg capsule,delayed 40 mg PO DAILY 04/04/21 07/05/22 07/05/22 release losartan 25 mg tablet 12.5 mg PO QPM #30 tabs 04/08/21 07/05/22 07/04/22 amlodipine 5 mg tablet 5 mg PO QPM 08/27/21 07/05/22 07/04/22 clopidogrel 75 mg tablet 75 mg PO DAILY 08/27/21 07/05/22 07/05/22 nitroglycerin 0.4 mg sublingual 0.4 mg sublingual .PRN/UD PRN 08/27/21 07/05/22 Unknown tablet Chest Pain rosuvastatin 5 mg tablet 5 mg PO QPM 08/27/21 07/05/22 07/04/22 sildenafil (pulm.hypertension) 20 20 mg PO BID 08/27/21 07/05/22 07/05/22 mg tablet atenolol 25 mg tablet 25 mg PO AMHS 04/06/22 07/05/22 07/05/22 08:00 etanercept 50 mg/mL (1 mL) 50 mg subcut .QWEEK 04/06/22 07/05/22 07/01/22 subcutaneous syringe (Enbrel) hydrocodone 7.5 mg-acetaminophen 1 tab PO Q8 PRN Pain 04/06/22 07/05/22 Unknown 325 mg tablet sildenafil (pulm.hypertension) 20 40 mg PO HS 04/06/22 07/05/22 07/04/22 mg tablet tiotropium bromide 2.5 2 inh inhalation DAILY 04/06/22 07/05/22 07/05/22 mcg/actuation mist for inhalation (Spiriva Respimat) alendronate 70 mg tablet 70 mg PO WK 07/05/22 07/05/22 07/01/22 furosemide 20 mg tablet 40 mg PO QAM 07/05/22 07/05/22 07/05/22 prednisone 10 mg tablet 5 mg PO DAILY 07/05/22 07/05/22 07/05/22 apixaban 5 mg tablet (Eliquis) 5 mg PO BID #60 tabs 07/10/22 Unknown Active Medications Generic Name Dose Route Start Last Admin Trade Name Freq PRN Reason Stop Dose Admin Hydrocodone Bitart/Acetaminophen 1 tab 07/06/22 01:14 07/11/22 18:36 Hydrocodone/Acetaminophen 7.5/325mg Tab PO 07/20/22 01:13 1 tab Q8 PRN Administration Pain Albuterol 3 ml 07/08/22 18:30 07/08/22 19:36 Albut/Ipratrop 3mg/0.5mg Neb 3 Ml Vial NEB 08/07/22 18:59 3 ml QIDR PRN Administration Shortness Of Breath Protocol Alendronate Sodium 70 mg 07/10/22 06:30 07/10/22 06:13 Alendronate Sodium 70 Mg Tab PO 08/09/22 06:29 70 mg Sa MAIRA Administration Amlodipine Besylate 2.5 mg 07/06/22 21:00 07/06/22 21:08 Amlodipine Besylate 5 Mg Tab PO 08/05/22 20:59 2.5 mg HS MAIRA Administration Apixaban 5 mg 07/10/22 21:00 07/11/22 20:00 Apixaban 5 Mg Tablet PO 08/09/22 20:59 5 mg BID MAIRA Administration Aspirin 81 mg 07/06/22 09:00 07/11/22 08:48 Aspirin 81 Mg Ectab PO 08/05/22 08:59 81 mg DAILY MAIRA Administration Digoxin 0.25 mg 07/10/22 16:00 07/10/22 16:49 Digoxin 0.25 Mg Tab PO 08/09/22 15:59 0.25 mg DAILY@1600 MAIRA Administration Doxycycline Hyclate 100 mg 07/10/22 09:00 07/11/22 20:00 Doxycycline Hyclate 100 Mg Cap PO 07/17/22 08:59 100 mg BID MAIRA Administration Folic Acid 1 mg 07/06/22 09:00 07/11/22 08:49 Folic Acid 1 Mg Tab PO 08/05/22 08:59 1 mg DAILY MAIRA Administration Furosemide 40 mg 07/06/22 17:00 07/11/22 18:10 Furosemide 40 Mg/4 Ml Vial IV 08/05/22 16:59 40 mg [id number] MAIRA Administration Losartan Potassium 12.5 mg 07/06/22 21:00 07/06/22 21:08 Losartan Potassium 25 Mg Tab PO 08/05/22 20:59 12.5 mg QPM MAIRA Administration Metoprolol Succinate 50 mg 07/10/22 14:00 07/11/22 20:00 Metoprolol Succ 50mg Ext Rel Tab PO 08/09/22 13:59 50 mg TID MAIRA Administration Pantoprazole Sodium 40 mg 07/06/22 09:00 07/11/22 10:31 Pantoprazole 40 Mg Tab PO 08/05/22 08:59 40 mg DAILY MAIRA Administration Potassium Chloride 20 meq 07/10/22 09:00 07/11/22 20:00 Potassium Chloride Crtab 20 Meq Tabcr PO 08/09/22 08:59 20 meq BID MAIRA Administration Prednisone 5 mg 07/06/22 09:00 07/11/22 08:50 Prednisone 5 Mg Tab PO 08/05/22 08:59 5 mg DAILY MAIRA Administration Rosuvastatin Calcium 5 mg 07/06/22 21:00 07/11/22 20:01 Rosuvastatin Calcium 5 Mg Tab PO 08/05/22 20:59 5 mg QPM MAIRA Administration Sildenafil Citrate 20 mg 07/06/22 09:00 07/06/22 08:59 Sildenafil Citrate 20 Mg Tablet PO 08/05/22 08:59 20 mg BID MAIRA Administration Spironolactone 25 mg 07/09/22 13:30 07/11/22 10:31 Spironolactone 25 Mg Tab PO 08/08/22 13:29 25 mg QAM MAIRA Administration Umeclidinium [place] 1 puffs 07/06/22 09:00 07/11/22 08:50 Umeclidinium [place] 62.5mcg/Blister 7 Puffs/Inhaler INH 08/05/22 08:59 1 puffs DAILY MAIRA Administration Past Medical History Medical History Anemia Chronic steroid use Erectile dysfunction GERD (gastroesophageal reflux disease) Hepatitis C HFrEF (heart failure with reduced ejection fraction) HTN (hypertension) Long-term use of high-risk medication Lung nodules PAD (peripheral artery disease) Pre-diabetes Raynauds disease Rheumatoid arthritis Tobacco use disorder Exercise / Class Metabolic Activity II 4-5 Yardwork/Stairs/Walk up hill Past Family History Family History Other Heart disease Hypertension Past Surgical History Surgical History History of cardiac cath History of colonoscopy Hx of tonsillectomy Past Anesthesia History No Hx of Anesthesia Complications and No Family Hx of Anesthesia Complications History of PONV No Hx of PONV and No Hx of Motion Sickness Social History Smoking Status: Unknown if ever smoked tobacco type: cigarettes Smoking cigarettes per day: 8-10 Hx Alcohol Use: No Hx Substance Use: Yes substance use type: former substance user Last Used Substance: Hours (ago) Last Used Substance Other:: 14 hrs ago Physical Exam Vital Signs Last Vital Signs Temp 36.8 C 07/12/22 08:17 Pulse 148 H 07/12/22 08:17 Resp 20 07/12/22 08:17 BP 112/87 07/12/22 08:17 Pulse Ox 92 07/12/22 08:17 O2 Del Method Room Air 07/12/22 08:17 O2 Flow Rate 2 07/12/22 02:26 Constitutional + obese ENMT Mouth: + edentulous Thyromental Distance: > or= 3.5 Finger Breadths Mallampati Class: III Neck normal visual inspection and + thick neck Respiratory normal respiratory effort Auscultation: lungs clear to auscultation bilaterally Cardiovascular Rate/Rhythm: + tachycardic; + abnormal rhythm (aflutter) Extremities: + edema (trace lower extremity) Psychiatric Orientation: alert Testing Laboratory Results 07/12/22 05:29 07/12/22 05:29 PT 11.9 Seconds (9.0-12.0) 07/05/22 19:30 INR 1.1 (0.9-1.1) 07/05/22 19:30 APTT 79.4 Seconds (21.0-31.0) H* 07/10/22 06:09
--- NOTE | 2022-07-12 09:11 | Anesthesiology Progress Note ---
Date of Service July 12, 2022 Anesthesia Post Procedure Vital Signs Vital Signs: Temp Pulse Pulse Resp BP BP Pulse Ox 07/12/22 08:17 36.8 C 148 H 20 112/87 92 07/12/22 08:16 36.7 C 147 H 19 112/82 98 07/12/22 04:00 36.4 C 145 H 20 116/83 98 07/12/22 02:26 24 95 07/12/22 00:15 110 H 30 H 96 07/11/22 22:59 126 H 07/11/22 22:55 36.5 C 133 H 16 117/81 90 07/11/22 20:00 07/11/22 19:24 36.9 C 149 H 20 105/76 96 07/11/22 18:08 36.6 C 147 H 18 112/77 94 07/11/22 15:47 36.4 C L 135 H 20 110/80 98 07/11/22 11:27 36.4 C L 149 H 19 119/86 97 O2 Del Method O2 Flow Rate 07/12/22 08:17 Room Air 07/12/22 08:16 Room Air 07/12/22 04:00 Room Air 07/12/22 02:26 2 07/12/22 00:15 2 07/11/22 22:59 07/11/22 22:55 Room Air 07/11/22 20:00 Room Air 07/11/22 19:24 Room Air 07/11/22 18:08 Room Air 07/11/22 15:47 Room Air 07/11/22 11:27 Room Air Pain Intensity Bilateral Leg: Pain Intensity: 7 Chest: Pain Intensity: 4 Left Arm: Pain Intensity: 3 Transfer of Care Handoff Completed per policy Notes Mental Status: alert / awake / arousable Patient Amnestic to Procedure: Yes Nausea / Vomiting: adequately controlled Pain: adequately controlled Airway Patency, RR, SpO2: stable & adequate BP & HR: stable & adequate Hydration State: stable & adequate Anesthetic Complications: no major complications apparent
--- NOTE | 2022-07-12 09:13 | Cardioversion ---
Date of Service July 12, 2022 Electrical Cardioversion Rpt Electrical Cardioversion Report Procedure and risks explained in detail, informed consents obtained. Patient was sedated via anesthesia consult with continuous HR, BP, O2 end tidal CO2 monitoring Transesophageal echocardiogram performed without cardioversion contraindication. Synchronized electrical cardioversion performed using 200J biphasic countershock with successful conversion to sinus rhythm Patient aroused having tolerated
[2022-07-12] MEDS: ASPIRIN 81 MG ECTAB PO SCH (10:18)
[2022-07-12] MEDS: APIXABAN 5 MG TABLET PO SCH ×2 (10:18→20:03)
[2022-07-12] MEDS: DOXYCYCLINE HYCLATE 100 MG CAP PO SCH ×2 (10:19→20:04)
[2022-07-12] MEDS: FOLIC ACID 1 MG TAB PO SCH (10:19)
[2022-07-12] MEDS: predniSONE 5 MG TAB PO SCH (10:19)
[2022-07-12] MEDS: PANTOprazole 40 MG TAB PO SCH (10:19)
[2022-07-12] MEDS: SPIRONOLACTONE 25 MG TAB PO SCH (10:19)
[2022-07-12] MEDS: FUROSEMIDE 40 MG/4 ML VIAL IV SCH (10:20)
[2022-07-12] MEDS: UMECLIDINIUM BROMIDE 62.5MCG/BLISTER 7 PUFFS/INHALER INH SCH (10:20)
[2022-07-12] MEDS: METOPROLOL SUCC 50MG EXT REL TAB PO SCH (10:20)
[2022-07-12] MEDS: POTASSIUM CHLORIDE CRTAB 20 MEQ TABCR PO SCH ×2 (10:21→20:03)
--- NOTE | 2022-07-12 13:50 | Cardiology Progress Note ---
Date of Service July 12, 2022 Assessment & Plan (1) Acute on chronic heart failure with reduced ejection fraction and diastolic dysfunction: (2) Atrial fibrillation with rapid ventricular response: (3) Anemia: Plan 57-year-old male presents with acute decompensated heart failure in the setting of paroxysmal atrial fibrillation with rapid ventricular response and microcytic anemia. 2D transthoracic echocardiogram demonstrates reduced LV systolic function with ejection fraction of 25 to 30% (previously 40-45%). 07/10/2022 Clinically improved after diuresis but now in atrial flutter over atrial fibrillation with higher ventricular response rates We will continue diuresis plus spironolactone Increase metoprolol succinate to 50 mg 3 times daily Add digoxin Would recommend fluid restriction less than 2000 cc if not already done May need to consider DIEGO guided cardioversion if rates do not respond to above but would be at increased risk due to multiple issues 07/11/2022 Patient continues diuresis with mild contraction parameters on the laboratory testing No further atrial fibrillation slowing despite significant medical therapies and do not expect additional medical therapies will aid in short run Plan: Hold furosemide after evening dose Hold digoxin and metoprolol. We will tentatively arrange DIEGO guided synchronized electrical cardioversion for tomorrow. Patient n.p.o. after midnight Further plans after Discussed with and patient 07/12/2022 Patient underwent successful synchronized electrical cardioversion this morning with subsequent conversion to sinus rhythm, sinus tachycardia Clinically appears more comfortable and rhythm Plan: Continue metoprolol succinate at 50 mg a.m., 25 mg p.m Possibly resume losartan in a.m. Maintain full anticoagulation with Eliquis as ordered Continue current dosing of furosemide 40 mg IV daily but to be reviewed in a.m. Admission and Anticipated Discharge Date Admission Date: July 05, 2022 Subjective Patient seen and examined, chart, medications, telemetry reviewed Patient seen prior to DIEGO cardioversion and subsequent follow-up visit Feels improved after returning to sinus rhythm still with mild elevation in heart rate but substantially lower than during atrial fibrillation flutter Respiratory status much improved with diuresis of 8 kg DIEGO demonstrates diffuse LV dysfunction EF 25% Review of Systems Review of Systems: All systems reviewed & are unremarkable except as noted in Subjective Physical Exam Constitutional: no acute distress Eyes: PERRL, conjunctivae normal, anicteric sclerae Neck: trachea midline, no thyromegaly Respiratory: Auscultation: + rales (Bilateral bases); no rhonchi and no wheezes Cardiovascular: Rate/Rhythm: regular rate and regular rhythm (Atrial flutter) Heart Sounds: normal S1 and normal S2; no murmur Vessels: + JVD and radial pulses present; no carotid bruit Extremities: + edema (Trace only) Gastrointestinal (Abdomen): Inspection/Auscultation: normal bowel sounds; abdomen not distended and no abdominal edema Percussion/Palpation: abdomen soft; abdomen nontender, no guarding and abdomen not rigid Skin: no rashes, warm and dry Neurologic: CN's II-XI intact bilaterally and moves all extremities; no focal motor deficits Motor/Sensory: no tremor Psychiatric: A+Ox3, euthymic affect Results & Data ([facility]) Vital Signs (Past 12 Hours) Vital Signs Temp Pulse Resp BP BP Pulse Ox O2 Del Method 07/12/22 11:28 36.5 C 99 H 19 119/83 100 Room Air 07/12/22 10:31 99 H 18 100/65 98 Room Air 07/12/22 10:15 98 H 16 103/74 94 Room Air 07/12/22 09:45 36.5 C 98 H 16 95/67 L 97 Room Air 07/12/22 09:23 98 H 18 105/73 98 Room Air 07/12/22 09:06 96 H 18 105/72 98 Room Air 07/12/22 08:17 36.8 C 148 H 20 112/87 92 Room Air 07/12/22 08:16 36.7 C 147 H 19 112/82 98 Room Air 07/12/22 04:00 36.4 C 145 H 20 116/83 98 Room Air 07/12/22 02:26 24 95 O2 Flow Rate 07/12/22 11:28 07/12/22 10:31 07/12/22 10:15 07/12/22 09:45 07/12/22 09:23 07/12/22 09:06 07/12/22 08:17 07/12/22 08:16 07/12/22 04:00 07/12/22 02:26 2 Laboratory Results Laboratory Results - last 24 hr 07/11/22 07/12/22 07/12/22 12:21 05:29 05:29 WBC 11.00 H RBC 4.68 L Hgb 11.5 L Hct 36.7 L MCV 78.4 L MCH 24.6 L MCHC 31.3 L RDW Std Deviation 49.3 H RDW Coeff of Alex 17.4 H Plt Count 438 H MPV 9.8 Sodium 138 139 Potassium 4.6 D 4.3 Chloride 100 101 Carbon Dioxide 31 32 Anion Gap 7 6 BUN 24 H 27 H Creatinine 0.82 0.93 Est Cr Clr Drug Dosing 108.3 94.8 Est GFR ( Amer) 113.0 104.5 Est GFR (Non-Af Amer) 97.5 90.2 BUN/Creatinine Ratio 29.3 H 29.0 H Glucose 113 H 102 H Calcium 10.4 H 9.8 Magnesium 1.8
--- NOTE | 2022-07-12 15:25 | Electrocardiogram Report ---
Test Reason : Blood Pressure : / mmHG Vent. Rate : 147 BPM Atrial Rate : 294 BPM P-R Int : 000 ms QRS Dur : 084 ms QT Int : 320 ms P-R-T Axes : -83 066 076 degrees QTc Int : 500 ms Atrial flutter with 2:1 A-V conduction Nonspecific ST abnormality Abnormal ECG When compared with ECG of 05-JUL-2022 19:50, Atrial flutter has replaced Atrial fibrillation Questionable change in QRS axis Nonspecific T wave abnormality, improved in Inferior leads Confirmed by Junior Valle ([id number]) on 07/12/2022 3:24:57 PM Referred By: REFERRED SELF Confirmed By:Junior Valle
[2022-07-12] MEDS: ROSUVASTATIN CALCIUM 5 MG TAB PO SCH (20:03)
[2022-07-12] MEDS ORDERED: METOPROLOL SUCC 25MG EXT REL TAB PO SCH (21:00)
[2022-07-13 07:01] LABS: BUN Creatinine Ratio 34.5 (10-20); Calcium 9.8 mg/dl (8.5-10.1); Creatinine Clr Calc Pharmacy 104.5 ml/min; Est GFR (African American) 111.9 ml/min; Est GFR (Non-African American) 96.5 ml/min; Magnesium 1.9 mg/dl (1.7-2.4); Potassium 4.4 mmol/L (3.5-5.1)
--- NOTE | 2022-07-13 08:27 | Hospitalist Progress Note ---
Date of Service July 13, 2022 Assessment & Plan (1) Acute on chronic heart failure with reduced ejection fraction and diastolic dysfunction: (2) Atrial fibrillation with rapid ventricular response: (3) Elevated troponin: (4) CAD (coronary artery disease): (5) Rheumatoid arthritis: (6) HTN (hypertension): (7) PAD (peripheral artery disease): (8) Raynauds disease: Plan: Acute on chronic heart failure with reduced ejection fraction and diastolic dysfunction Patient is a 57-year-old male with PMHnonobstructive CAD per cardiac catheterization 04/20/2021, PSVT, pulmonary nodules, history of IV drug use, rheumatoid arthritis, hepatitis C s/p treatment, severe Raynaud's disease with gangrene of the 4th finger, following with rheumatology, on amlodipine and Revatio, 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 Left ventricle systolic function is severely reduced with ejection fraction 25 to 30% Currently diuresis well with Spironolactone and lasix 40mg IV daily - switch to PO Resume losartan Monitor I/O closely Fluid restriction at 2000 ml daily Continue monitor BMP Now s/p DIEGO and cardioversion (07/12/2022) clinically improved Increased metoprolol succinate to 50 mg BID Maintain full anticoagulation with Eliquis as ordered Atrial fibrillation with rapid ventricular response Initially on Cardizem drip and heparin drip Cardizem drip discontinued Currently on Metoprolol succinate as above and Digoxin Royal on Eliquis checked, $3 dollars monthly and pt able to afford it. Transitioned to Eliquis S/p DIEGO and cardioversion (07/12) as above Elevated troponin Mostly due to demand ischemia in the setting of acute CHF and Afib with RVR Troponin peaked to 247, then trending down to 216 denies any chest pain No current indication for dual antiplatelet therapy Cardiology recommended aspirin and heparin drip (heparin drip stopped now) Pt transitioned to eliquis Continue statin and beta tyrone Continue monitor Lung Lesions History of pulmonary nodules from prior CT chest CXR showed 2.3 cm nodular opacity projects over the medial right lower lung. Follows with pulmonology as outpatient schedule for repeat CT chest on 07/11 outpatient LUE swelling/erythema LUE doppler showed no DVT within the left upper extremity. Focal thrombus within the left cephalic vein. Doxy was started for possible cellulitis, doubt of cellulitis Erythema improved Continue monitor Hyperlipidemia: Continue statin H/O Rheumatoid arthritis: Previously hydroxychloroquine--was discontinued due to QTC prolongation Currently only steroid Follows with rheumatology as outpatient H/O heavy drug use. H/O hepatitis C S/P treatment H/O Severe Raynaud disease with gangrene in the fourth finger: On amlodipine and Revatio. Hypertension: Continue losartan, atenolol, amlodipine Continue monitor BP Depression: on Duloxetine. Peripheral artery disease: On aspirin, and statin cardio recommended to d/c plavix since pt started on anticoagulant with aspirin DVT Px on Transitioned to Eliquis Code Status Full Code Admission and Anticipated Discharge Date Admission Date: July 05, 2022 Subjective Pt was seen and examined for follow up of SOB and Afib RVR Laying in bed, resting, in NAD Overall feeling better Underwent DIEGO and cardioversion yesterday Denies any chest pain, palpitation, dizziness or fever or cough Cardiology following closely Review of Systems Review of Systems: All systems reviewed & are unremarkable except as noted in Subjective Physical Exam Physical Exam: General- obese M in No acute distress Head- atraumatic Eyes- PERRL, EOMI, ENT- oropharynx clear Neck- supple, no JVD Lungs- + basilar crackles, no wheezes Heart- rrr; no murmur Abdomen- normal bowel sounds, soft, nontender, + obese Extremities- no calf tenderness, +edema B/L LE (improved), moves extremities Neuro- alert, oriented x 3; PERRL, EOMI; no facial palsy, moves extremities Skin- warm & dry Results & Data Results & Data ([facility]) Vital Signs (Past 12 Hours) Vital Signs Temp Pulse Pulse Resp BP Pulse Ox O2 Del Method 07/13/22 08:03 36.3 C L 89 20 137/72 93 Room Air 07/13/22 07:36 93 H 07/13/22 02:41 36.8 C 105 H 19 125/83 99 Room Air 07/13/22 00:00 102 H 07/12/22 23:29 97 H 18 94 07/12/22 22:45 36.7 C 98 H 19 116/79 94 Room Air O2 Flow Rate 07/13/22 08:03 07/13/22 07:36 07/13/22 02:41 07/13/22 00:00 07/12/22 23:29 2 07/12/22 22:45 Laboratory Results 07/13/22 Range/Units 05:43 Sodium 137 (136-145) mmol/L Potassium 4.4 (3.5-5.1) mmol/L Chloride 102 (98-107) mmol/L Carbon Dioxide 29 (21-32) mmol/L Anion Gap 6 (3-11) BUN 29 H (6-23) mg/dl Creatinine 0.84 (0.6-1.4) mg/dl Est Cr Clr Drug Dosing 104.5 ml/min Est GFR ( Amer) 111.9 ml/min Est GFR (Non-Af Amer) 96.5 ml/min BUN/Creatinine Ratio 34.5 H (10-20) Glucose 109 H (70-99(Fasting)) mg/dl Calcium 9.8 (8.5-10.1) mg/dl Phosphorus 4.0 (2.5-4.9) mg/dl Magnesium 1.9 (1.7-2.4) mg/dl Medications Administered Current Inpatient Medications Acetaminophen (Acetaminophen 325 Mg Tab) 650 mg PO Q4H PRN PRN Reason: Pain or Fever Stop: 08/05/22 01:13 Hydrocodone Bitart/Acetaminophen (Hydrocodone/Acetaminophen 7.5/325mg Tab) 1 tab PO Q8 PRN PRN Reason: Pain Stop: 07/20/22 01:13 Last Admin: 07/11/22 18:36 Dose: 1 tab Albuterol (Albut/Ipratrop 3mg/0.5mg Neb 3 Ml Vial) 3 ml NEB QIDR PRN; Protocol PRN Reason: Shortness Of Breath Stop: 08/07/22 18:59 Last Admin: 07/08/22 19:36 Dose: 3 ml Alendronate Sodium (Alendronate Sodium 70 Mg Tab) 70 mg PO Sa MAIRA Stop: 08/09/22 06:29 Last Admin: 07/10/22 06:13 Dose: 70 mg Amlodipine Besylate (Amlodipine Besylate 5 Mg Tab) 2.5 mg PO HS MAIRA Stop: 08/05/22 20:59 Last Admin: 07/06/22 21:08 Dose: 2.5 mg Apixaban (Apixaban 5 Mg Tablet) 5 mg PO BID MAIRA Stop: 08/09/22 20:59 Last Admin: 07/12/22 20:03 Dose: 5 mg Aspirin (Aspirin 81 Mg Ectab) 81 mg PO DAILY MAIRA Stop: 08/05/22 08:59 Last Admin: 07/12/22 10:18 Dose: 81 mg Digoxin (Digoxin 0.25 Mg Tab) 0.25 mg PO DAILY@1600 MAIRA Stop: 08/09/22 15:59 Last Admin: 07/10/22 16:49 Dose: 0.25 mg Doxycycline Hyclate (Doxycycline Hyclate 100 Mg Cap) 100 mg PO BID MAIRA Stop: 07/17/22 08:59 Last Admin: 07/12/22 20:04 Dose: 100 mg Folic Acid (Folic Acid 1 Mg Tab) 1 mg PO DAILY MAIRA Stop: 08/05/22 08:59 Last Admin: 07/12/22 10:19 Dose: 1 mg Furosemide (Furosemide 40 Mg/4 Ml Vial) 40 mg IV DAILY MAIRA Stop: 08/11/22 09:29 Last Admin: 07/12/22 10:20 Dose: 40 mg Promethazine HCl 12.5 mg/ (Sodium Chloride) 50.5 mls @ 202 mls/hr IV Q6H PRN PRN Reason: Nausea And Vomiting Stop: 08/05/22 01:13 Losartan Potassium (Losartan Potassium 25 Mg Tab) 12.5 mg PO QPM MAIRA Stop: 08/05/22 20:59 Last Admin: 07/06/22 21:08 Dose: 12.5 mg Metoprolol Succinate (Metoprolol Succ 50mg Ext Rel Tab) 50 mg PO QAM MAIRA Stop: 08/11/22 09:29 Last Admin: 07/12/22 10:20 Dose: 50 mg Metoprolol Succinate (Metoprolol Succ 25mg Ext Rel Tab) 25 mg PO QPM MAIRA Stop: 08/11/22 20:59 Last Admin: 07/12/22 20:03 Dose: 25 mg Pantoprazole Sodium (Pantoprazole 40 Mg Tab) 40 mg PO DAILY MAIRA Stop: 08/05/22 08:59 Last Admin: 07/12/22 10:19 Dose: 40 mg Potassium Chloride (Potassium Chloride Crtab 20 Meq Tabcr) 20 meq PO BID MAIRA Stop: 08/09/22 08:59 Last Admin: 07/12/22 20:03 Dose: 20 meq Prednisone (Prednisone 5 Mg Tab) 5 mg PO DAILY MAIRA Stop: 08/05/22 08:59 Last Admin: 07/12/22 10:19 Dose: 5 mg Rosuvastatin Calcium (Rosuvastatin Calcium 5 Mg Tab) 5 mg PO QPM MAIRA Stop: 08/05/22 20:59 Last Admin: 07/12/22 20:03 Dose: 5 mg Sildenafil Citrate (Sildenafil Citrate 20 Mg Tablet) 20 mg PO BID MAIRA Stop: 08/05/22 08:59 Last Admin: 07/06/22 08:59 Dose: 20 mg Spironolactone (Spironolactone 25 Mg Tab) 25 mg PO QAM MAIRA Stop: 08/08/22 13:29 Last Admin: 07/12/22 10:19 Dose: 25 mg Umeclidinium [place] (Umeclidinium [place] 62.5mcg/Blister 7 Puffs/Inhaler) 1 puffs INH DAILY MAIRA Stop: 08/05/22 08:59 Last Admin: 07/12/22 10:20 Dose: 1 puffs
[2022-07-13] MEDS: UMECLIDINIUM BROMIDE 62.5MCG/BLISTER 7 PUFFS/INHALER INH SCH (08:30)
[2022-07-13] MEDS: ASPIRIN 81 MG ECTAB PO SCH (08:31)
[2022-07-13] MEDS: APIXABAN 5 MG TABLET PO SCH ×2 (08:31→20:43)
[2022-07-13] MEDS: METOPROLOL SUCC 50MG EXT REL TAB PO SCH ×2 (08:31→20:42)
[2022-07-13] MEDS: predniSONE 5 MG TAB PO SCH (08:31)
[2022-07-13] MEDS: POTASSIUM CHLORIDE CRTAB 20 MEQ TABCR PO SCH ×2 (08:31→20:43)
[2022-07-13] MEDS: FOLIC ACID 1 MG TAB PO SCH (08:31)
[2022-07-13] MEDS: DOXYCYCLINE HYCLATE 100 MG CAP PO SCH ×2 (08:31→20:42)
[2022-07-13] MEDS: PANTOprazole 40 MG TAB PO SCH (08:31)
[2022-07-13] MEDS: FUROSEMIDE 40 MG/4 ML VIAL IV SCH (08:32)
[2022-07-13] MEDS: SPIRONOLACTONE 25 MG TAB PO SCH (08:33)
--- NOTE | 2022-07-13 13:56 | Cardiology Progress Note ---
Date of Service July 13, 2022 Assessment & Plan (1) Acute on chronic heart failure with reduced ejection fraction and diastolic dysfunction: (2) Atrial fibrillation with rapid ventricular response: (3) Anemia: Plan 57-year-old male presents with acute decompensated heart failure in the setting of paroxysmal atrial fibrillation with rapid ventricular response and microcytic anemia. 2D transthoracic echocardiogram demonstrates reduced LV systolic function with ejection fraction of 25 to 30% (previously 40-45%). 07/10/2022 Clinically improved after diuresis but now in atrial flutter over atrial fibrillation with higher ventricular response rates We will continue diuresis plus spironolactone Increase metoprolol succinate to 50 mg 3 times daily Add digoxin Would recommend fluid restriction less than 2000 cc if not already done May need to consider DIEGO guided cardioversion if rates do not respond to above but would be at increased risk due to multiple issues 07/11/2022 Patient continues diuresis with mild contraction parameters on the laboratory testing No further atrial fibrillation slowing despite significant medical therapies and do not expect additional medical therapies will aid in short run Plan: Hold furosemide after evening dose Hold digoxin and metoprolol. We will tentatively arrange DIEGO guided synchronized electrical cardioversion for tomorrow. Patient n.p.o. after midnight Further plans after Discussed with and patient 07/12/2022 Patient underwent successful synchronized electrical cardioversion this morning with subsequent conversion to sinus rhythm, sinus tachycardia Clinically appears more comfortable and rhythm Plan: Continue metoprolol succinate at 50 mg a.m., 25 mg p.m Possibly resume losartan in a.m. Maintain full anticoagulation with Eliquis as ordered Continue current dosing of furosemide 40 mg IV daily but to be reviewed in a.m. 07/13/2022. Continued progress volume status much improved. Maintaining sinus rhythm. Plan increase metoprolol succinate 50 mg twice daily Discontinue IV furosemide changed to furosemide 40 mg p.o. daily Resume losartan 12.5 mg/day Nocturnal oximetry on room air. Suspect patient would benefit from sleep study post discharge,CPAP Admission and Anticipated Discharge Date Admission Date: July 05, 2022 Subjective Patient seen and examined, chart, medications, telemetry reviewed. Patient has remained in sinus rhythm with mildly elevated heart rate Respiratory status improved with patient oxygenating well on room air Physical Exam Constitutional: no acute distress Eyes: PERRL, conjunctivae normal, anicteric sclerae Neck: trachea midline, no thyromegaly Respiratory: Auscultation: + rales (Bilateral bases); no rhonchi and no wheezes Cardiovascular: Rate/Rhythm: regular rate, regular rhythm (Atrial flutter), + tachycardic and + irregularly irregular Heart Sounds: normal S1 and normal S2; no murmur Vessels: + JVD and radial pulses present; no carotid bruit Extremities: + edema (Trace only) Gastrointestinal (Abdomen): Inspection/Auscultation: normal bowel sounds; abdomen not distended and no abdominal edema Percussion/Palpation: abdomen soft; abdomen nontender, no guarding and abdomen not rigid Skin: no rashes, warm and dry Neurologic: CN's II-XI intact bilaterally and moves all extremities; no focal motor deficits Motor/Sensory: no tremor Psychiatric: A+Ox3, euthymic affect Results & Data ([facility]) Vital Signs (Past 12 Hours) Vital Signs Temp Pulse Pulse Resp BP Pulse Ox O2 Del Method 07/13/22 12:11 36.3 C L 93 H 20 113/83 95 Room Air 07/13/22 08:03 36.3 C L 89 20 137/72 93 Room Air 07/13/22 07:36 93 H 07/13/22 02:41 36.8 C 105 H 19 125/83 99 Room Air Laboratory Results Laboratory Results - last 24 hr 07/13/22 05:43 Sodium 137 Potassium 4.4 Chloride 102 Carbon Dioxide 29 Anion Gap 6 BUN 29 H Creatinine 0.84 Est Cr Clr Drug Dosing 104.5 Est GFR ( Amer) 111.9 Est GFR (Non-Af Amer) 96.5 BUN/Creatinine Ratio 34.5 H Glucose 109 H Calcium 9.8 Phosphorus 4.0 Magnesium 1.9
[2022-07-13] MEDS: ROSUVASTATIN CALCIUM 5 MG TAB PO SCH (20:43)
[2022-07-14 06:38] LABS: BUN Creatinine Ratio 36.8 (10-20); Creatinine Clr Calc Pharmacy 99.8 ml/min; Est GFR (African American) 110.3 ml/min; Est GFR (Non-African American) 95.1 ml/min; Magnesium 2.1 mg/dl (1.7-2.4); Phosphorus 3.6 mg/dl (2.5-4.9); Potassium 4.5 mmol/L (3.5-5.1)
--- NOTE | 2022-07-14 08:24 | Hospitalist Progress Note ---
Date of Service July 14, 2022 Assessment & Plan (1) Acute on chronic heart failure with reduced ejection fraction and diastolic dysfunction: (2) Atrial fibrillation with rapid ventricular response: (3) Elevated troponin: (4) CAD (coronary artery disease): (5) Rheumatoid arthritis: (6) HTN (hypertension): (7) PAD (peripheral artery disease): (8) Raynauds disease: Plan: Acute on chronic heart failure with reduced ejection fraction and diastolic dysfunction Patient is a 57-year-old male with PMHnonobstructive CAD per cardiac catheterization 04/20/2021, PSVT, pulmonary nodules, history of IV drug use, rheumatoid arthritis, hepatitis C s/p treatment, severe Raynaud's disease with gangrene of the 4th finger, following with rheumatology, on amlodipine and Revatio, 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 Left ventricle systolic function is severely reduced with ejection fraction 25 to 30% Diuresed well with Spironolactone and lasix 40mg IV daily -> switched to PO 40 mg daily Resumed losartan Monitor I/O closely Fluid restriction at 2000 ml daily Continue monitor BMP Now s/p DIEGO and cardioversion (07/12/2022) clinically much improved Increased metoprolol succinate to 75 mg BID Maintain full anticoagulation with Eliquis as ordered - 5 mg BID Outpatient cardiology follow-up Atrial fibrillation with rapid ventricular response Initially on Cardizem drip and heparin drip Cardizem drip discontinued Currently on Metoprolol succinate, was on Digoxin while inpt as well Royal on Eliquis checked, $3 dollars monthly and pt able to afford it. Transitioned to Eliquis S/p DIEGO and cardioversion (07/12) as above Elevated troponin Mostly due to demand ischemia in the setting of acute CHF and Afib with RVR Troponin peaked to 247, then trending down to 216 denies any chest pain No current indication for dual antiplatelet therapy Cardiology recommended aspirin and heparin drip (heparin drip stopped now) Pt transitioned to eliquis Continue statin and beta tyrone Lung Lesions History of pulmonary nodules from prior CT chest CXR showed 2.3 cm nodular opacity projects over the medial right lower lung. Follows with pulmonology as outpatient LUE swelling/erythema LUE doppler showed no DVT within the left upper extremity. Focal thrombus within the left cephalic vein. Doxy was started for possible cellulitis, doubt of cellulitis. stop doxy Erythema improved Continue monitor Hyperlipidemia: Continue statin H/O Rheumatoid arthritis: Previously hydroxychloroquine--was discontinued due to QTC prolongation Currently only steroid Follows with rheumatology as outpatient H/O heavy drug use. H/O hepatitis C S/P treatment H/O Severe Raynaud disease with gangrene in the fourth finger: On amlodipine and Revatio. Amlodipine was stopped while inpt. revatio was on hold while inpt. Hypertension: Currently on metoprolol succinate, losartan, spironolactone Stopped atenolol, amlodipine Continue monitor BP Depression: on Duloxetine. Peripheral artery disease: On aspirin, and statin cardio recommended to d/c plavix since pt started on anticoagulant -eliquis, with aspirin DVT Px on Transitioned to Eliquis Code Status Full Code Admission and Anticipated Discharge Date Admission Date: July 05, 2022 Subjective Pt was seen and examined for follow up of SOB and Afib RVR Underwent DIEGO and cardioversion 2 days ago Nocturnal sleep study overnight Laying in bed, resting, in NAD Overall feeling much better Denies any chest pain, palpitation, dizziness, fever or cough Cardiology following closely - discussed w/ cardiology - ok to discharge - they will arrange follow up with them Review of Systems Review of Systems: All systems reviewed & are unremarkable except as noted in Subjective Physical Exam Physical Exam: General- obese M in no acute distress Head- atraumatic Eyes- PERRL, EOMI, ENT- oropharynx clear Neck- supple, no JVD Lungs- + minimal basilar crackles, no wheezes Heart- irregular HR in 90s; no murmur Abdomen- normal bowel sounds, soft, nontender, + obese Extremities- no calf tenderness, no edema B/L LE (resolved), moves extremities Neuro- alert, oriented x 3; PERRL, EOMI; no facial palsy, moves extremities Skin- warm & dry Results & Data Results & Data ([facility]) Vital Signs (Past 12 Hours) Vital Signs Temp Pulse Pulse Pulse Resp BP Pulse Ox 07/14/22 07:48 36.8 C 93 H 18 119/83 94 07/14/22 07:33 92 H 07/14/22 02:55 91 H 07/14/22 02:40 36.8 C 86 19 111/74 96 07/14/22 00:55 80 07/13/22 22:25 86 07/13/22 22:46 36.6 C 92 H 18 113/75 97 Pulse Ox O2 Del Method O2 Del Method 07/14/22 07:48 Room Air 07/14/22 07:33 07/14/22 02:55 97 Room Air 07/14/22 02:40 Room Air 07/14/22 00:55 95 Room Air 07/13/22 22:25 95 Room Air 07/13/22 22:46 Room Air Laboratory Results 07/14/22 Range/Units 05:39 Sodium 136 (136-145) mmol/L Potassium 4.5 (3.5-5.1) mmol/L Chloride 104 (98-107) mmol/L Carbon Dioxide 25 (21-32) mmol/L Anion Gap 7 (3-11) BUN 32 H (6-23) mg/dl Creatinine 0.87 (0.6-1.4) mg/dl Est Cr Clr Drug Dosing 99.8 ml/min Est GFR ( Amer) 110.3 ml/min Est GFR (Non-Af Amer) 95.1 ml/min BUN/Creatinine Ratio 36.8 H (10-20) Glucose 111 H (70-99(Fasting)) mg/dl Calcium 10.0 (8.5-10.1) mg/dl Phosphorus 3.6 (2.5-4.9) mg/dl Magnesium 2.1 (1.7-2.4) mg/dl Medications Administered Current Inpatient Medications Acetaminophen (Acetaminophen 325 Mg Tab) 650 mg PO Q4H PRN PRN Reason: Pain or Fever Stop: 08/05/22 01:13 Hydrocodone Bitart/Acetaminophen (Hydrocodone/Acetaminophen 7.5/325mg Tab) 1 tab PO Q8 PRN PRN Reason: Pain Stop: 07/20/22 01:13 Last Admin: 07/11/22 18:36 Dose: 1 tab Albuterol (Albut/Ipratrop 3mg/0.5mg Neb 3 Ml Vial) 3 ml NEB QIDR PRN; Protocol PRN Reason: Shortness Of Breath Stop: 08/07/22 18:59 Last Admin: 07/08/22 19:36 Dose: 3 ml Alendronate Sodium (Alendronate Sodium 70 Mg Tab) 70 mg PO Sa MAIRA Stop: 08/09/22 06:29 Last Admin: 07/10/22 06:13 Dose: 70 mg Amlodipine Besylate (Amlodipine Besylate 5 Mg Tab) 2.5 mg PO HS MAIRA Stop: 08/05/22 20:59 Last Admin: 07/06/22 21:08 Dose: 2.5 mg Apixaban (Apixaban 5 Mg Tablet) 5 mg PO BID MAIRA Stop: 08/09/22 20:59 Last Admin: 07/13/22 20:43 Dose: 5 mg Aspirin (Aspirin 81 Mg Ectab) 81 mg PO DAILY MAIRA Stop: 08/05/22 08:59 Last Admin: 07/13/22 08:31 Dose: 81 mg Digoxin (Digoxin 0.25 Mg Tab) 0.25 mg PO DAILY@1600 [facility] Stop: 08/09/22 15:59 Last Admin: 07/10/22 16:49 Dose: 0.25 mg Doxycycline Hyclate (Doxycycline Hyclate 100 Mg Cap) 100 mg PO BID MAIRA Stop: 07/17/22 08:59 Last Admin: 07/13/22 20:42 Dose: 100 mg Folic Acid (Folic Acid 1 Mg Tab) 1 mg PO DAILY MAIRA Stop: 08/05/22 08:59 Last Admin: 07/13/22 08:31 Dose: 1 mg Furosemide (Furosemide 40 Mg Tab) 40 mg PO QAM [facility] Stop: 08/13/22 08:59 Promethazine HCl 12.5 mg/ (Sodium Chloride) 50.5 mls @ 202 mls/hr IV Q6H PRN PRN Reason: Nausea And Vomiting Stop: 08/05/22 01:13 Losartan Potassium (Losartan Potassium 25 Mg Tab) 12.5 mg PO QPM MAIRA Stop: 08/05/22 20:59 Last Admin: 07/06/22 21:08 Dose: 12.5 mg Losartan Potassium (Losartan Potassium 25 Mg Tab) 12.5 mg PO QAM [facility] Stop: 08/13/22 08:59 Metoprolol Succinate (Metoprolol Succ 50mg Ext Rel Tab) 50 mg PO BID MAIRA Stop: 08/12/22 20:59 Last Admin: 07/13/22 20:42 Dose: 50 mg Pantoprazole Sodium (Pantoprazole 40 Mg Tab) 40 mg PO DAILY MAIRA Stop: 08/05/22 08:59 Last Admin: 07/13/22 08:31 Dose: 40 mg Potassium Chloride (Potassium Chloride Crtab 20 Meq Tabcr) 20 meq PO BID MAIRA Stop: 08/09/22 08:59 Last Admin: 07/13/22 20:43 Dose: 20 meq Prednisone (Prednisone 5 Mg Tab) 5 mg PO DAILY MAIRA Stop: 08/05/22 08:59 Last Admin: 07/13/22 08:31 Dose: 5 mg Rosuvastatin Calcium (Rosuvastatin Calcium 5 Mg Tab) 5 mg PO QPM MAIRA Stop: 08/05/22 20:59 Last Admin: 07/13/22 20:43 Dose: 5 mg Sildenafil Citrate (Sildenafil Citrate 20 Mg Tablet) 20 mg PO BID MAIRA Stop: 08/05/22 08:59 Last Admin: 07/06/22 08:59 Dose: 20 mg Spironolactone (Spironolactone 25 Mg Tab) 25 mg PO QAM MAIRA Stop: 08/08/22 13:29 Last Admin: 07/13/22 08:33 Dose: 25 mg Umeclidinium [place] (Umeclidinium [place] 62.5mcg/Blister 7 Puffs/Inhaler) 1 puffs INH DAILY MAIRA Stop: 08/05/22 08:59 Last Admin: 07/13/22 08:30 Dose: 1 puffs
[2022-07-14] MEDS: UMECLIDINIUM BROMIDE 62.5MCG/BLISTER 7 PUFFS/INHALER INH SCH (08:39)
[2022-07-14] MEDS: predniSONE 5 MG TAB PO SCH (08:39)
[2022-07-14] MEDS: SPIRONOLACTONE 25 MG TAB PO SCH (08:39)
[2022-07-14] MEDS: APIXABAN 5 MG TABLET PO SCH (08:39)
[2022-07-14] MEDS: PANTOprazole 40 MG TAB PO SCH (08:40)
[2022-07-14] MEDS: ASPIRIN 81 MG ECTAB PO SCH (08:40)
[2022-07-14] MEDS: FOLIC ACID 1 MG TAB PO SCH (08:40)
[2022-07-14] MEDS: METOPROLOL SUCC 50MG EXT REL TAB PO SCH (08:40)
[2022-07-14] MEDS: DOXYCYCLINE HYCLATE 100 MG CAP PO SCH (08:40)
[2022-07-14] MEDS ORDERED: Nursing to Pharmacy Communication SCH (08:45)
[2022-07-14] MEDS ORDERED: FUROSEMIDE 40 MG TAB PO SCH (09:00)
[2022-07-14] MEDS ORDERED: LOSARTAN POTASSIUM 25 MG TAB PO SCH ×2 (09:00→21:00)
--- NOTE | 2022-07-14 11:30 | Cardiology Progress Note ---
Date of Service July 14, 2022 Assessment & Plan (1) Acute on chronic heart failure with reduced ejection fraction and diastolic dysfunction: (2) Atrial fibrillation with rapid ventricular response: (3) Anemia: Plan 57-year-old male presents with acute decompensated heart failure in the setting of paroxysmal atrial fibrillation with rapid ventricular response and microcytic anemia. 2D transthoracic echocardiogram demonstrates reduced LV systolic function with ejection fraction of 25 to 30% (previously 40-45%). 07/10/2022 Clinically improved after diuresis but now in atrial flutter over atrial fibrillation with higher ventricular response rates We will continue diuresis plus spironolactone Increase metoprolol succinate to 50 mg 3 times daily Add digoxin Would recommend fluid restriction less than 2000 cc if not already done May need to consider DIEGO guided cardioversion if rates do not respond to above but would be at increased risk due to multiple issues 07/11/2022 Patient continues diuresis with mild contraction parameters on the laboratory testing No further atrial fibrillation slowing despite significant medical therapies and do not expect additional medical therapies will aid in short run Plan: Hold furosemide after evening dose Hold digoxin and metoprolol. We will tentatively arrange DIEGO guided synchronized electrical cardioversion for tomorrow. Patient n.p.o. after midnight Further plans after Discussed with and patient 07/12/2022 Patient underwent successful synchronized electrical cardioversion this morning with subsequent conversion to sinus rhythm, sinus tachycardia Clinically appears more comfortable and rhythm Plan: Continue metoprolol succinate at 50 mg a.m., 25 mg p.m Possibly resume losartan in a.m. Maintain full anticoagulation with Eliquis as ordered Continue current dosing of furosemide 40 mg IV daily but to be reviewed in a.m. 07/13/2022. Continued progress volume status much improved. Maintaining sinus rhythm. Plan increase metoprolol succinate 50 mg twice daily Discontinue IV furosemide changed to furosemide 40 mg p.o. daily Resume losartan 12.5 mg/day Nocturnal oximetry on room air. Suspect patient would benefit from sleep study post discharge,CPAP 07/14/2022: Patient appears well compensated from a volume standpoint. Down -16 L. Telemetry revealing sinus rhythm with PACs/PVCs and a short burst of atrial tach. Increase metoprolol succinate to 75 mg twice daily. Continue anticoagulation with Eliquis 5 mg twice daily Failed nocturnal sleep study, will require oxygenation at discharge for sleep. We will also consult sleep medicine for formal testing. Patient will likely benefit from CPAP. Recommend continuation of cardiac medications as ordered at discharge. We will arrange for close cardiology follow-up at discharge. Admission and Anticipated Discharge Date Admission Date: July 05, 2022 Supervising Physician Co-Signing Physician Notes Patient seen and examined, chart, medications, telemetry reviewed Substantially improved from initial hospitalization. Plan as outlined above increase metoprolol succinate to 75 mg twice per day for arrhythmia control Will need formal sleep medicine evaluation post hospital discharge CHF discharge instructions with discussion with patient made daily weights and sodium and fluid restriction reporting weight gain and signs of fluid retention promptly Atrial arrhythmias also discussed we will continue to follow heart rate Subjective Patient seen and examined, chart, medications, telemetry reviewed. Tele: NSR with PVCs/PACs and a short burst of atrial tach, 90s I&O: -16L Weight: 101.6 kg (admitt) >> 91.4 kg (07/14) Overnight pulse ox study failed indicating need for supplemental o2 therapy at night. Physical Exam Constitutional: well nourished and + ill appearing; no acute distress Eyes: PERRL, conjunctivae normal, anicteric sclerae Neck: trachea midline, no thyromegaly Respiratory: normal respiratory effort; no respiratory distress, no labored breathing and no retractions Auscultation: + rales (Bilateral bases); no rhonchi and no wheezes Cardiovascular: Rate/Rhythm: regular rate, regular rhythm (Atrial flutter), + tachycardic and + irregularly irregular Heart Sounds: normal S1 and normal S2; no murmur Vessels: + JVD and radial pulses present; no carotid bruit Extremities: + edema (Trace only) Gastrointestinal (Abdomen): Inspection/Auscultation: normal bowel sounds; abd omen not distended and no abdominal edema Percussion/Palpation: abdomen soft; abdomen nontender, no guarding and abdomen not rigid Skin: no rashes, warm and dry Neurologic: CN's II-XI intact bilaterally and moves all extremities; no focal motor deficits Motor/Sensory: no tremor Psychiatric: A+Ox3, euthymic affect Results & Data ([facility]) Vital Signs (Past 12 Hours) Vital Signs Temp Pulse Pulse Pulse Resp BP Pulse Ox 07/14/22 07:48 36.8 C 93 H 18 119/83 94 07/14/22 07:33 92 H 07/14/22 02:55 91 H 07/14/22 02:40 36.8 C 86 19 111/74 96 07/14/22 00:55 80 Pulse Ox O2 Del Method O2 Del Method 07/14/22 07:48 Room Air 07/14/22 07:33 07/14/22 02:55 97 Room Air 07/14/22 02:40 Room Air 07/14/22 00:55 95 Room Air
[2022-07-14] MEDS ORDERED: METOPROLOL SUCC 25MG EXT REL TAB PO STA (12:26)
--- NOTE | 2022-07-14 14:00 | Discharge Summary ---
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 History obtained from patient and chart review. Patient reports baseline shortness of breath however for the past day with increased shortness of breath. States 1 month ago was having increased lower extremity edema and Lasix was increased from 20 mg to 40 mg daily with improvement. Yesterday noted increased bilateral lower extremity edema. Recent cardiac cath technician with paroxysmal atrial fibrillation and patient was to have cardiology follow-up to discuss anticoagulation options since he is already on aspirin and Plavix. Reports chronic nonproductive cough without any noted increased cough. Patient states this morning had tightness sensation across the entire upper chest that lasted several minutes and then self resolved. States feels very tired. This morning slept through multiple alarms and phone calls. Dizziness with standing. Denies syncope. Denies fever/chills, diaphoresis, N/V/D/C, ROJAS, vision changes, neck pain, palpitations, hemoptysis, sore throat, choking, otalgia, rhinorrhea, abdominal pain, paresthesias, extremity weakness, rashes, urinary symptoms. Admission Exam Per Admitting Provider General: no distress, overweight, chronic ill appearing male, appears older than stated age Head: normocephalic, atraumatic Eyes: conjunctiva non-injected, anicteric ENT: normal inspection external ears, nose, mucous membranes moist Neck: supple, trachea midline Lungs: clear, no respiratory distress, no wheezing/rhonchi/rales CV: Irregularly irregular, rate 108, 2+ pretibial edema Abd: normal BS, soft, non-tender Ext: no cyanosis, no calf tenderness; bilateral medial aspect distal thighs extending to medial knees with erythema, without significant warmth and without tenderness to palpation Neuro: A&O x 3, no focal deficits noted, normal affect Skin: warm, dry Principal Diagnosis Acute on chronic heart failure with reduced ejection fraction and diastolic dysfunction Atrial fibrillation with rapid ventricular response, Atrial flutter s/p cardioversion Nocturnal hypoxia Discharge Exam General- obese M in no acute distress Head- atraumatic Eyes- PERRL, EOMI, ENT- oropharynx clear Neck- supple, no JVD Lungs- + minimal basilar crackles, no wheezes Heart- irregular HR in 90s; no murmur Abdomen- normal bowel sounds, soft, nontender, + obese Extremities- no calf tenderness, no edema B/L LE (resolved), moves extremities Neuro- alert, oriented x 3; PERRL, EOMI; no facial palsy, moves extremities Skin- warm & dry Discharge Data Allergies Allergy/AdvReac Type Severity Reaction Status Date / Time No Known Allergies Allergy Verified 07/05/22 20:43 Consultations 07/05/22 20:42 ED Decision to Admit Stat 07/06/22 01:14 Consult Cardiology Routine Procedures Performed Operation Date: 07/12/22 13:00 Actual Procedures p Echo Transesophageal - Michael Allen MD s Echo Color Flow - Michael Allen MD s Cardioversion - Michael Allen MD s Echo Doppler Complete - Michael Allen MD Ordered Studies 07/09/22 05:27 US venous doppler UE LT Urgent FINDINGS: The left internal jugular vein is patent. There is normal flow within the left subclavian vein. There is normal flow and compressibility within the left axillary, basilic, brachial, radial, and ulnar veins. Thrombus identified within the cephalic vein which measures approximately 1.1 cm in length. This is located at the distal upper arm. IMPRESSION: No DVT within the left upper extremity. Focal thrombus within the left cephalic vein. Hospital Course (1) Acute on chronic heart failure with reduced ejection fraction and diastolic dysfunction: (2) Atrial fibrillation with rapid ventricular response: (3) Elevated troponin: (4) CAD (coronary artery disease): (5) Rheumatoid arthritis: (6) HTN (hypertension): (7) PAD (peripheral artery disease): (8) Raynauds disease: Acute on chronic heart failure with reduced ejection fraction and diastolic dysfunction Patient is a 57-year-old male with PMHnonobstructive CAD per cardiac catheterization 04/20/2021, PSVT, pulmonary nodules, history of IV drug use, rheumatoid arthritis, hepatitis C s/p treatment, severe Raynaud's disease with gangrene of the 4th finger, following with rheumatology, on amlodipine and Revatio, 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 Left ventricle systolic function is severely reduced with ejection fraction 25 to 30% Diuresed well with Spironolactone and lasix 40mg IV daily -> switched to PO 40 mg daily Resumed losartan Monitor I/O closely Fluid restriction at 1800 ml daily Continue monitor BMP Now s/p DIEGO and cardioversion (07/12/2022) clinically much improved Increased metoprolol succinate to 75 mg BID Maintain full anticoagulation with Eliquis as ordered - 5 mg BID Outpatient cardiology follow-up Atrial fibrillation with rapid ventricular response Initially on Cardizem drip and heparin drip Cardizem drip discontinued Currently on Metoprolol succinate, was on Digoxin while inpt as well [place] on Eliquis checked, $3 dollars monthly and pt able to afford it. Transitioned to Eliquis S/p DIEGO and cardioversion (07/12) as above Elevated troponin Mostly due to demand ischemia in the setting of acute CHF and Afib with RVR Troponin peaked to 247, then trending down to 216 denies any chest pain No current indication for dual antiplatelet therapy Cardiology recommended aspirin and heparin drip (heparin drip stopped now) Pt transitioned to eliquis Continue statin and beta tyrone Lung Lesions History of pulmonary nodules from prior CT chest CXR showed 2.3 cm nodular opacity projects over the medial right lower lung. Follows with pulmonology as outpatient LUE swelling/erythema LUE doppler showed no DVT within the left upper extremity. Focal thrombus within the left cephalic vein. Doxy was started for possible cellulitis, doubt of cellulitis. stop doxy Erythema improved Continue monitor Hyperlipidemia: Continue statin H/O Rheumatoid arthritis: Previously hydroxychloroquine--was discontinued due to QTC prolongation Currently only steroid Follows with rheumatology as outpatient H/O heavy drug use. H/O hepatitis C S/P treatment H/O Severe Raynaud disease with gangrene in the fourth finger: On amlodipine and Revatio. Amlodipine was stopped while inpt. revatio was on hold while inpt. Hypertension: Currently on metoprolol succinate, losartan, spironolactone Stopped atenolol, amlodipine Continue monitor BP Depression: on Duloxetine. Peripheral artery disease: On aspirin, and statin cardio recommended to d/c plavix since pt started on anticoagulant -eliquis, with aspirin Total Time Total Time Spent Total Time Spent (In Minutes): 40 Discharge Plan Discharge Items Patient Disposition: Home - Self-Care Reason For Visit: CHF, AF Discharge Diagnosis: Acute on chronic heart failure with reduced ejection fraction and diastolic dysfunction Atrial fibrillation with rapid ventricular response, Atrial flutter s/p cardioversion Nocturnal hypoxia Activity: Per Instructions section Non-emergency contact: Primary Care Provider and Director Operating Call non-emergency contact if: you have any medication questions and your symptoms worsen Follow-up/Referrals: Anahy Grayson MD [Primary Care Provider] - (Date & Time 07/20/2022 8:00 AM Provider Anahy Grayson MD [facility] ) Diet: Heart Healthy Fluids: 1800ml (7 cups) Addtl Attending Provider Instructions: Follow up with your primary care doctor, pulmonology and cardiology. The appointment with primary care physician was scheduled for you for July 20. You will be contacted by cardiology office about your upcoming appointment. You were started here on blood thinner, Eliquis, please take it as prescribed 5 mg twice a day. Do not take Plavix. Continue taking aspirin. Take metoprolol succinate 75 mg (50 mg + 25 mg tablet) twice a day. Stop atenolol and amlodipine. Continue taking furosemide 40 mg daily and losartan 12.5 mg daily. Take spironolactone 25 mg daily. Discuss with your mushroom spawn maker, how you should be taking sildenafil. You will need to use oxygen at night, use 2 L continuously while sleeping. It is important that you have a sleep study done, as you may need CPAP. Addtl Adjunct Physical Education Instructor Provider Instructions: Call your Primary Care doctor if any of the following symptoms or problems start or get worse: * Shortness of breath or difficulty breathing * Wake up at night short of breath * Chest pain * Cough * Swelling of your hands, feet, or legs * More fatigued or tired with your normal activity * Palpitations - sudden fast heart beats WEIGHT * Weigh yourself every morning after using the bathroom. * Use the same scale. * Wear the same amount of clothing. * Write your weight down on a chart. * Call your Primary Care doctor if you gain more than 2-3 pounds in 1-2 days. MEDICATIONS * Use this discharge instruction sheet for medication instructions. * Take your medications at the time your doctor ordered. * Do not skip a dose of your medicines. * If you miss a dose of medicine, take it as soon as possible, but DO NOT DOUBLE A DOSE. * Read your medicine information when you get home. * Know all of the side effects of your medicine. If in doubt, ask your pharmacist * Call your Primary Care doctor's office if you have any side effects. * Be sure all of your doctors know what medicine and herbs you take (including cold, flu, and herbal medicine). Take the following with you to your follow-up doctor appointments: * Weight Chart * Medication List * List of questions Do not drink excessive alcohol, beer or wine. Pending Studies at Discharge: No Stand-Alone Forms: My [facility], Smoking Cessation Medications and DC Order Prescriptions: New Eliquis 5 mg tablet 5 mg PO BID Qty: 60 0RF metoprolol succinate 50 mg tablet extended release 24 hr 50 mg PO BID 30 Days Qty: 60 0RF metoprolol succinate 25 mg tablet extended release 24 hr 25 mg PO BID 30 Days Qty: 60 0RF Continued sildenafil (pulm.hypertension) 20 mg tablet 20 mg PO BID Rx Instructions: Take in AM & NOON rosuvastatin 5 mg tablet 5 mg PO QPM nitroglycerin 0.4 mg tablet, sublingual 0.4 mg sublingual .PRN/UD PRN (Reason: Chest Pain) Rx Instructions: NEEDED FOR CHEST PAIN : ONE TABLET UNDER THE TONGUE EVERY 5 MINUTES UP TO THREE DOSES. omeprazole 40 mg capsule,delayed release(DR/EC) 40 mg PO DAILY folic acid 1 mg tablet 1 mg PO DAILY aspirin [Bob Low Dose Aspirin] 81 mg Tablet,Delayed Release (Dr/Ec) 81 mg PO DAILY losartan 25 mg Tablet 12.5 mg PO QPM Qty: 30 0RF Spiriva Respimat 2.5 mcg/actuation mist 2 inh INHALATION DAILY hydrocodone-acetaminophen 7.5-325 mg tablet 1 tab PO Q8 PRN (Reason: Pain) Enbrel 50 mg/mL (1 mL) Syringe 50 mg SUBCUT .QWEEK Rx Instructions: TAKES ON SATURDAYS sildenafil (pulm.hypertension) 20 mg tablet 40 mg PO HS alendronate 70 mg tablet 70 mg PO WK Rx Instructions: TAKES ON SATURDAYS prednisone 10 mg tablet 5 mg PO DAILY furosemide 20 mg tablet 40 mg PO QAM Discontinued clopidogrel 75 mg tablet 75 mg PO DAILY amlodipine 5 mg tablet 5 mg PO QPM atenolol 25 mg tablet 25 mg PO AMHS Discharge Orders: Discharge Order- CHF (Routine); Ordered 07/14/22 Ordered By: Pino Waters Admission Data Admit Date/Time: 07/05/22 22:46 Attending Provider: Pino Waters Admit Provider: Daniel Laurent Primary Care Provider: Anahy Grayson Other Providers: Daniel Laurent ; Alberto Garcia ; Jamie Valente ; Michael Allen ; Guillermo Luque ; Randall Craig ; Fredy De Guzman ; Valentina Ceron ; Aparna Espinal ; Elizabeth Johnson ; Jamie Mclean ; Alexsandra Mendez
[2022-07-14] MEDS ORDERED: METOPROLOL SUCC 25MG EXT REL TAB PO SCH (21:00)
== END 2022-07-14 16:33 | disposition home or self-care (01) | DRG 308 ==
LOC: ED 18:38 → EDINP 22:46 → SUATTDRO 22:46 → 4W 07-06 00:54

== ENCOUNTER 2023-08-13 00:01 | Inpatient (IN) ==
--- OUTSIDE RECORDS SUMMARY | 2023-08-13 00:08 | External Medical Summary | Summary of Care ---
Author Name Unknown Organization [facility] Address [address] [place] [address] Phone [phone] Care Team Providers Care Protective Signal Installer Helper Name Role Phone Anahy Grayson MD Primary Care Provider [phone] Reason for Visit * Reason Comments Acute Pt being seen today for pain in right big toe. Need referral for vascular issues and aneurisms that run in the family. Encounter Details Date Type Department Care Team (Latest Contact Info) Description 08/07/2023 3:00 PM EDT Office Visit [place] [address] [place] [address] Anahy Grayson MD [address] [place] [address] Ischemic necrosis of toe (HCC)*; Small vessel disease (HCC); PAD (peripheral artery disease) (HCC); Immunodeficiency due to drugs (HCC); manager intermediate systemic steroid user; Rheumatoid arthritis involving multiple sites with positive rheumatoid factor (HCC); Persistent atrial fibrillation (HCC); COPD, group B, by GOLD 2017 classification (HCC); Chronic systolic heart failure (HCC); Cardiomyopathy, unspecified type (HCC); Moderate episode of recurrent major depressive disorder (HCC); HFrEF (heart failure with reduced ejection fraction) (HCC); DDD (degenerative disc disease), lumbar; Scoliosis, unspecified scoliosis type, unspecified spinal region Allergies No known active allergiesdocumented as of this encounter (statuses as of 08/07/2023) Medications Medication Sig Dispensed Refills Start Date End Date Status Aspirin 81 MG Oral Tablet Delayed Release Take 1 Tablet by mouth in the morning. 0 Active Spiriva Respimat 2.5 MCG/ACT Inhalation Aerosol Solution (Tiotropium [place] Monohydrate) Inhale by mouth 2 Puffs in the morning. 4 g 11 03/21/2022 Active Vitamin D3 10 MCG (400 UNIT) Oral Tablet Take 1 Tablet by mouth in the morning. 0 Active Centrum Silver 50+Men Oral Tablet Take 1 Tablet by mouth in the morning. 0 Active oxygen IN GAS Use 2 L/min(Oxygen) as directed. 0 Active Entresto 24-26 MG Oral Tablet (sacubitril-valsarta n 24-26 mg per tab) Take 1 Tablet by mouth in the morning and 1 Tablet before bedtime. 180 Tablet 3 07/28/2022 Active Metoprolol Succinate ER 100 MG Oral Tablet Extended Release 24 Hour (toPROL XL) Take 1 Tablet by mouth in the morning and 1 Tablet before bedtime. 180 Tablet 3 07/28/2022 Active Digoxin 125 MCG Oral Tablet (Lanoxin) Take 1 Tablet by mouth in the morning. 34 Tablet 11 08/08/2022 Active Eliquis 5 MG Oral Tablet (Apixaban)Indication s:Persistent atrial fibrillation (HCC) TAKE ONE TABLET BY MOUTH 2 TIMES A DAY 180 Tablet 3 08/15/2022 Active Metoprolol Succinate ER 25 MG Oral Tablet Extended Release 24 Hour (toPROL XL) Take 1 Tablet by mouth in the morning and 1 Tablet before bedtime. In addition to 100 mg daily. Total of 125 mg twice per day.. 180 Tablet 3 09/19/2022 Active Spironolactone 25 MG Oral Tablet (Aldactone) Take 0.5 Tablets by mouth in the morning. 15 Tablet 5 10/17/2022 Active Rosuvastatin Calcium 5 MG Oral Tablet (Crestor)Indications :Coronary artery disease involving ramona coronary artery of ramona heart without angina pectoris,HFrEF (heart failure with reduced ejection fraction) (HCC),HTN, goal below 140/90,Dyslipidemia, goal LDL below 70,Palpitations TAKE ONE TABLET BY MOUTH EVERY MORNING 30 Tablet 11 10/31/2022 Active Alendronate Sodium 70 MG Oral Tablet (Fosamax) Take 1 Tablet by mouth once a week. 4 Tablet 12 12/15/2022 Active Nitroglycerin 0.4 MG Sublingual Tablet Sublingual (Nitrostat) Place 1 Tablet under the tongue every 5 minutes as needed for Pain, Chest. up to 3 doses in 15 minutes 25 Tablet 11 12/15/2022 Active Ondansetron HCl 4 MG Oral Tablet Take 1 Tablet by mouth every 8 hours as needed for Nausea. 20 Tablet 0 01/09/2023 Active Sarilumab 200 MG/1.14ML Subcutaneous Solution Auto-injector (Kevzara)Indications :Rheumatoid arthritis involving multiple sites with positive rheumatoid factor ([facility]) Inject 1.14 mL under the skin every 14 days. 2.28 mL 11 03/05/2023 Active Omeprazole 40 MG Oral Capsule Delayed Release (PriLOSEC) Take 1 Capsule by mouth in the morning. 1 hour before the first meal of the day.. 90 Capsule 3 03/15/2023 Active Sildenafil Citrate 20 MG Oral Tablet (Revatio)Indications :Raynaud's disease with gangrene ([facility]) TAKE ONE TABLET BY MOUTH EVERY MORNING , 1 TABLET AT NOON AND 2 TABLETS BEFORE BEDTIME 90 Tablet 2 03/30/2023 Active sulfaSALAzine 500 MG Oral Tablet Delayed Release (Azulfidine Entab) Take 1 Tablet by mouth in the morning. 0 Active Jardiance 10 MG Oral Tablet (Empagliflozin)Indic ations:HFrEF (heart failure with reduced ejection fraction) ([facility]) TAKE 1 TABLET BY MOUTH EVERY MORNING 90 Tablet 3 05/08/2023 Active Furosemide 20 MG Oral Tablet (Lasix)Indications:H FrEF (heart failure with reduced ejection fraction) ([facility]) Take 2 Tablets by mouth in the morning. 180 Tablet 3 06/06/2023 Active oxyCODONE-Acetaminop hen 10-325 MG Oral Tablet (Percocet) Take 1 Tablet by mouth every 6 hours as needed for Pain, Severe. Do not start before July 25, 2023. 120 Tablet 0 07/25/2023 Active predniSONE 5 MG Oral Tablet (Deltasone)Indicatio ns:Rheumatoid arthritis involving multiple sites with positive rheumatoid factor ([facility]) TAKE 1 TO 2 TABLETS BY MOUTH ONCE DAILY FOR RHEUMATOID ARTHRITIS 60 Tablet 5 08/01/2023 Active Escitalopram Oxalate 10 MG Oral Tablet (Lexapro) Take 1 Tablet by mouth in the morning. 30 Tablet 0 08/05/2023 Active documented as of this encounter (statuses as of 08/07/2023) Active Problems Problem Noted Date Diagnosed Date Moderate episode of recurrent major depressive d isorder 08/05/2023 Small vessel disease 08/01/2023 Food insecurity 01/08/2023 Overview: Per [facility] Protocol Senile osteoporosis 01/04/2023 Lung nodules 12/15/2022 Lung mass 12/15/2022 Encounter for long-term (current) use of medicat ions 09/21/2022 HFrEF (heart failure with reduced ejection fract ion) 08/08/2022 Persistent atrial fibrillation 08/08/2022 Last Assessment & Plan: Rate controlled on metoprolol succinate, digoxin COPD, group B, by GOLD 2017 classification 07/10 Overview: Per COPD GOLD Classification Last Assessment & Plan: Current Status : "Stable" for patient / At or near baseline Degree of Condition Awareness: Demonstrates very good awareness of condition, disease course, and prognosis "RED FLAG" COPD symptoms: o Increased dyspnea on exertion ("I can't walk to the kitchen or up the stairs without coughing and wheezing", "My chest feels tight any time I move") Medication Regimen o Other: spiriva, duonebs prn Self-Management plan o Prednisone tapering dose Rx Exacerbation plan o 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 06/23/2022 Scoliosis 06/23/2022 SVT (supraventricular tachycardia) 04/26/2022 Last Assessment & Plan: Status post cardioversion in 06/2022 -continue Toprol as noted above and Eliquis Frequent PVCs 04/26/2022 Chronic systolic heart failure 04/26/2022 Overview: EF 25-30 % echo 07/20 Last Assessment & Plan: Current Status: "Stable" for patient / At or near baseline Degree of Condition Awareness: Demonstrates very good awareness of condition, disease course, and prognosis "RED FLAG" HF Symptoms: o NO IDENTIFIED SYMPTOMS Current Heart Failure Classifications: o With ordinary activity such as doing housework, yard work or shopping ([facility]) Diagnostic Review: Recent Labs Units 08/28/22 1120 06/27/22 1130 05/15/22 1814 04/06/22 0000 08/17/21 1427 08/17/21 1424 LEFT VENTRICULAR EJECTION FRACTION % -- -- -- -- -- 46 BNP (NT-PRO-BNP) - [facility] pg/mL -- -- 3,267* -- < > -- ESTIMATED GLOMERULAR FILTRATION RATE - [facility] mL/min >90 < > 88 -- < > -- EGFR-OUTSIDE LAB ML/MIN/1.73M2 -- -- -- 108.6 -- -- HGB - [facility] -- -- -- -- < > -- HEMOGLOBIN-OUTSIDE LAB G/DL -- -- -- 10.8* < > -- < > = values in this interval not displayed. Medication Regimen: o Beta Levon Therapy: Metoprolol Succinate (ER) o KENDELL Inhibitor/ARB Therapy: Entresto o Diuretic therapy: Lasix Aldactone Self - Management Plan o Double dose of Furosemide for 2 days Exacerbation Plan o Anticipated IV Lasix dose: 40 mg Appears euvolemic with decreased dose of spironolactone (has taken 12.5 mg for the last 2 days.). Encouraged daily weights. Gastro-esophageal reflux disease without esophag itis 01/31/2022 Last Assessment & Plan: Symptoms controlled on omeprazole PAD (peripheral artery disease) 01/31/2022 Depression with anxiety 01/31/2022 Cardiomyopathy 01/31/2022 DDD (degenerative disc disease), lumbar 02/01/20 Immunodeficiency due to drugs 01/31/2022 Age-related nuclear cataract, bilateral 02/01/20 Hepatitis C virus infection cured after antiviral drug therapy 02/12/2019 Overview: HCV treated; SVR confirmed 02/11/2019 Effusion of left knee 12/18/2018 Rheumatoid arthritis involvi ng multiple sites with positive rheumatoid factor 03/07/2018 Last Assessment & Plan: On Kevzara. Prednisone, which dose varies based on symptoms. MEDICATION USE AGREEMENT 06/25/2017 Tear of lateral meniscus of knee 02/22/2016 Knee pain 12/27/2015 DJD (degenerative joint disease) 01/15/2014 Erectile dysfunction 01/15/2014 Tobacco use disorder 01/15/2014 documented as of this encounter (statuses as of 08/07/2023) Resolved Problems Problem Noted Date Diagnosed Date Resolved Date COPD, severity to be determined 06/23/2022 07/12/2022 Chronic obstructive pulmonary disease 06/23/2022 07/12/2022 Chronic obstructive pulmonary disease 06/23/2022 07/12/2022 Overview: Per COPD GOLD Classification Prediabetes 01/31/2022 07/12/2022 Ischemic ulcer of finger, li mited to breakdown of skin 04/29/2021 08/08/2022 Chronic hepatitis C without hepatic coma 08/02/2018 02/12/2019 Overview: HCV treated; SVR confirmed 02/11/2019 Food insecurity 01/08/2018 01/11/2021 Overview: Per [facility] Protocol Castillo's cyst of knee 12/16/2015 017 Alejandrina nodes (DJD hand) 01/15/2014 Screening for cardiovascular condition 01/15/2014 03/15/2017 Screening for diabetes mellitus 01/15/2014 03/15/2017 Closed fracture of multiple ribs 04/18/2010 03/15/2017 Pain in limb 07/14/2009 03/15/2017 PARONYCHIA FINGER 07/14/2009 03/15/2017 CELLULITIS, FINGER, RIGHT THUMB 07/14/2009 03/15/2017 Shoulder joint pain 04/30/2009 03/15/20 17 ROTATOR CUFF SYNDROME, LEFT 04/30/2009 03/15/2017 Palpitations 04/30/2009 03/15/2017 Organic sleep disorder 09/20/200703/15 Adjustment disorder with depressed mood 09/20/2007 03/15/2017 Chronic Alcohol Dependence 09/20/2007 1 Routine medical exam 09/20/2007 017 Primary localized osteoarthr osis of shoulder region 03/15/2017 Overview: right Rotator cuff syndrome 2016 Overview: right Tobacco use disorder 018 documented as of this encounter (statuses as of 08/07/2023) Immunizations Name Administration Dates Next Due HepA Inact/HepB Recomb>=18yrs old 08/26/2018 Hepatitis B, 20+ yrs 05/27/2019,10/10/2018 Pneumococcal Conjugate Vacc, 13 Valent (Prevnar) 03/21/2019 Pneumococcal Polysaccharide PPV23 (Pneumovax) 02/12/2020 Seasonal Influenza, PF, 6 M & above, IM , (FluLaval or Fluzone) 03/03/2021,02/12/2020,03/21/2019,08/2017,03/15/2017 04/30/2019 TD - Tetanus/Diptheria (ADULT) 03/28/2007 TDAP (age 10 and older)(Boostrix) 02/12/2020 documented as of this encounter Social History Tobacco Use Types Packs/Day Years Used Date Smoking Tobacco: Some Days Cigarettes 0.3 38 Passive Smoke Exposure: Past Smokeless Tobacco: Never Alcohol Use Standard Drinks/Week Comments Not Currently 0 (1 standard drink = 0.6 oz pure alcohol) Previously drank a 6 pack weekly PHQ-2 Answer Date Recorded PHQ-2 Score 0 03/21/2019 Hunger Vital Sign Answer Date Recorded Within the past 12 months, y ou worried that your food would run out before you got the money to buy more. Sometimes true Within the past 12 months, t he food you bought just didn't last and you didn't have money to get more. Never true Sex and Gender Information Value Date Recorded Sex Assigned at Male 03/05/2023 10:07 AM EDT Gender Identity Male 03/05/2023 10:07 AM EDT Sexual Orientation Straight 03/05/2023 10 :07 AM EDT Job Start Date Occupation Industry Not on file Not on file Not on file documented as of this encounter Last Filed Vital Signs Vital Sign Reading Time Taken Comments Blood Pressure 98/58 08/07/2023 3:07 PM EDT Pulse 72 08/07/2023 3:07 PM EDT Temperature 35.6 C (96.1 F) 08/07/2023 3:07 PM ED T Respiratory Rate 18 08/07/2023 3:07 PM EDT Oxygen Saturation 95% 08/07/2023 3:07 PM EDT Inhaled Oxygen Concentration - - Weight 93.9 kg (207 lb) 08/07/2023 3:07 PM EDT Height - - Body Mass Index 31.47 05/17/2023 1:17 PM EST documented in this encounter Progress Notes * Anahy Grayson MD - 08/07/2023 3:35 PM EDT Subjective Harrison Morgan is a 58 year old male. Chief Complaint Patient presents with Acute Pt being seen today for pain in right big toe. Need referral for vascular issues and aneurisms thatrun in the family. HPI: Here for f/u on ER and recent vascular f/u on rt big toe ischemic necrosis Had vascular duplex tests done Will review results and make a plan tmrw with vascular Known chronic pain , RA - taking meds, injection which seems helping, chronic prednisone Fu with rheuma And chronic OA , cane, gait problem , knee pain Chronic small vessel ds, vasculitis Afib, CMP, CHF, taking all meds and f/u with cardio Pain significant due to toe pain Already taking percocet 10/325 4 times per day With severe pain, will add extra one more tab for breakthrough SOB on exertion only , chronic COPD, stable , taking inhaler, smoking only one cig Some weight gain, advised to stop drinking juice Depresssion chronic + PMH: Patient Active Problem List Diagnosis Code DJD (degenerative joint disease) M19.90 Erectile dysfunction N52.9 Tobacco use disorder F17.200 MEDICATION USE AGREEMENT [id number] Rheumatoid arthritis involving multiple sites with positive rheumatoid factor (HCC) M05.79 Hepatitis C virus infection cured after antiviral drug therapy Z86.19 Effusion of left knee M25.462 Knee pain M25.569 Tear of lateral meniscus of knee S83.289A Gastro-esophageal reflux disease without esophagitis K21.9 PAD (peripheral artery disease) ([facility]) I73.9 Depression with anxiety F41.8 Cardiomyopathy ([facility]) I42.9 DDD (degenerative disc disease), lumbar M51.36 Immunodeficiency due to drugs ([facility]) D84.821, Z79.899 Age-related nuclear cataract, bilateral H25.13 SVT (supraventricular tachycardia) I47.10 Frequent PVCs I49.3 Chronic systolic heart failure ([facility]) I50.22 penitentiary systemic 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 user Z79.52 Scoliosis M41.9 COPD, group B, by GOLD 2017 classification ([facility]) J44.9 HFrEF (heart failure with reduced ejection fraction) ([facility]) I50.20 Persistent atrial fibrillation ([facility]) I48.19 Encounter for long-term (current) use of medications Z79.899 Lung nodules R91.8 Lung mass R91.8 Senile osteoporosis M81.0 Food insecurity Z59.41 Small vessel disease ([facility]) I73.9 Moderate episode of recurrent major depressive disorder ([facility]) F33.1 Current Outpatient Medications Medication Sig Dispense Refill Aspirin 81 MG Oral Tablet Delayed Release Take 1 Tablet by mouth in the morning. Spiriva Respimat 2.5 MCG/ACT Inhalation Aerosol Solution (Tiotropium [place] Monohydrate) Inhale bymouth 2 Puffs in the morning. 4 g 11 Vitamin D3 10 MCG (400 UNIT) Oral Tablet Take 1 Tablet by mouth in the morning. Centrum Silver 50+Men Oral Tablet Take 1 Tablet by mouth in the morning. oxygen IN GAS Use 2 L/min(Oxygen) as directed. Entresto 24-26 MG Oral Tablet (sacubitril-valsartan 24-26 mg per tab) Take 1 Tablet by mouth in themorning and 1 Tablet before bedtime. 180 Tablet 3 Metoprolol Succinate ER 100 MG Oral Tablet Extended Release 24 Hour (toPROL XL) Take 1 Tablet by mouth in the morning and 1 Tablet before bedtime. 180 Tablet 3 Digoxin 125 MCG Oral Tablet (Lanoxin) Take 1 Tablet by mouth in the morning. 34 Tablet 11 Eliquis 5 MG Oral Tablet (Apixaban) TAKE ONE TABLET BY MOUTH 2 TIMES A DAY 180 Tablet 3 Metoprolol Succinate ER 25 MG Oral Tablet Extended Release 24 Hour (toPROL XL) Take 1 Tablet by mouth in the morning and 1 Tablet before bedtime. In addition to 100 mg daily. Total of 125 mg twice per day.. 180 Tablet 3 Spironolactone 25 MG Oral Tablet (Aldactone) Take 0.5 Tablets by mouth in the morning. 15 Tablet 5 Rosuvastatin Calcium 5 MG Oral Tablet (Crestor) TAKE ONE TABLET BY MOUTH EVERY MORNING 30 Tablet 11 Alendronate Sodium 70 MG Oral Tablet (Fosamax) Take 1 Tablet by mouth once a week. 4 Tablet 12 Nitroglycerin 0.4 MG Sublingual Tablet Sublingual (Nitrostat) Place 1 Tablet under the tongue every5 minutes as needed for Pain, Chest. up to 3 doses in 15 minutes 25 Tablet 11 Ondansetron HCl 4 MG Oral Tablet Take 1 Tablet by mouth every 8 hours as needed for Nausea. 20 Tablet 0 Sarilumab 200 MG/1.14ML Subcutaneous Solution Auto-injector ([place]) Inject 1.14 mL under the skinevery 14 days. 2.28 mL 11 Omeprazole 40 MG Oral Capsule Delayed Release (PriLOSEC) Take 1 Capsule by mouth in the morning. 1 hour before the first meal of the day.. 90 Capsule 3 Sildenafil Citrate 20 MG Oral Tablet (Revatio) TAKE ONE TABLET BY MOUTH EVERY MORNING , 1 TABLET ATNOON AND 2 TABLETS BEFORE BEDTIME 90 Tablet 2 sulfaSALAzine 500 MG Oral Tablet Delayed Release (Azulfidine Entab) Take 1 Tablet by mouth in the morning. Jardiance 10 MG Oral Tablet (Empagliflozin) TAKE 1 TABLET BY MOUTH EVERY MORNING 90 Tablet 3 Furosemide 20 MG Oral Tablet (Lasix) Take 2 Tablets by mouth in the morning. 180 Tablet 3 oxyCODONE-Acetaminophen 10-325 MG Oral Tablet (Percocet) Take 1 Tablet by mouth every 6 hours as needed for Pain, Severe. Do not start before July 25, 2023. 120 Tablet 0 predniSONE 5 MG Oral Tablet (Deltasone) TAKE 1 TO 2 TABLETS BY MOUTH ONCE DAILY FOR RHEUMATOID ARTHRITIS 60 Tablet 5 Escitalopram Oxalate 10 MG Oral Tablet (Lexapro) Take 1 Tablet by mouth in the morning. 30 Tablet 0 No current facility-administered medications for this visit. Past Medical History: Diagnosis Date Lung nodule Primary localized osteoarthrosis of shoulder region 05/28/2008 right Rotator cuff syndrome 05/28/2008 right Tobacco use disorder Past Surgical History: Procedure Laterality Date BRONCHOSCOPY, DIAGNOSTIC N/A 10/11/2022 BRONCHOSCOPY DIAGNOSTIC WITH OR WITHOUT WASHING performed by Randall England MD at ENDOSCOPY [facility] [place] COLONOSCOPY, DIAGNOSTIC (RECTUM) 07/24/2017 normal, repeat 10 yrs/COLONOSCOPY FLEXIBLE PROXIMAL DIAGNOSTIC performed by Paul Verma MD at ENDOSCOPY [facility] DENTAL SURGERY PROCEDURE NEC age 15 or 16 wisdome teeth x 4 IR BIOPSY 06/20/2021 REMOVAL OF TONSILS, AGE 12+ age 11 Tonsils Removal,11+ Y/O REVISE KNEE JOINT REPLACEMENT Right Review of patient's allergies indicates: No Known Allergies Family History Problem Relation Age of Onset Hypertension Mother Heart disease Mother Dementia Father Family Status Relation Status Mo Alive Some arthritis Fa Alive Bro Alive Social History Socioeconomic History Marital status: Significant Other Spouse name: Caterina Number of children: 4 Years of education: Not on file Highest education level: Not on file Occupational History 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 Possible mold in his home. job: [employer] employer: [employer] last education: 12 service: no hobbies/interests: Hunting fishing transfusions: no exercise: little diet: no quaker/muslim: no marital status: 09/26 children: 3/1 gc: 0 ggc: 0 pets: 2 dogs, cat exposure to violence/threats/abuse: no things to improve: alcoholism Social Determinants of Health Financial Resource Strain: Not on file Food Insecurity: Food Insecurity Present (12/15/2022) Hunger Vital Sign Worried About Running Out of Food in the Last Year: Sometimes true Ran Out of Food in the Last Year: Never true Transportation Needs: Not on file Physical Activity: Not on file Stress: Not on file Social Connections: Not on file Intimate Partner Violence: Not on file Housing Stability: Not on file Review of Systems Constitutional: Positive for activity change (declining) and fatigue. Negative for appetite change,chills, diaphoresis, fever and unexpected weight change. HENT: Negative for hearing loss. Eyes: Negative for visual disturbance. Respiratory: Positive for shortness of breath (on exertion). Negative for cough, chest tightness and wheezing. Cardiovascular: Negative for chest pain, palpitations and leg swelling. Gastrointestinal: Negative for abdominal distention, abdominal pain, nausea and vomiting. Endocrine: Negative. Genitourinary: Negative for hematuria. Musculoskeletal: Positive for arthralgias, back pain, gait problem, joint swelling, myalgias, neck pain and neck stiffness. Skin: Positive for color change (rt toe necrosis). Negative for rash. Allergic/Immunologic: Positive for immunocompromised state. Neurological: Positive for weakness (legs) and numbness. Negative for dizziness, tremors, light-headedness and headaches. Hematological: Negative for adenopathy. Psychiatric/Behavioral: Positive for dysphoric mood and sleep disturbance. Negative for agitation and behavioral problems. The patient is nervous/anxious. Objective BP 98/58 | Pulse 72 | Temp 35.6 C (96.1 F) (Infrared ) | Resp 18 | Wt 93.9 kg (207 lb) | SpO2 95% | BMI 31.47 kg/m | BSA 2.12 m Physical Exam Constitutional: General: He is not in acute distress. Appearance: Normal appearance. He is not ill-appearing, toxic-appearing or diaphoretic. HENT: Head: Normocephalic and atraumatic. Nose: Nose normal. Eyes: Extraocular Movements: Extraocular movements intact. Cardiovascular: Rate and Rhythm: Rhythm irregular. Heart sounds: Murmur heard. Pulmonary: Effort: Pulmonary effort is normal. No respiratory distress. Breath sounds: No stridor. No wheezing, rhonchi or rales. Chest: Chest wall: No tenderness. Abdominal: Palpations: Abdomen is soft. Musculoskeletal: General: Tenderness present. Cervical back: Tenderness present. Right lower leg: No edema. Left lower leg: No edema. Skin: Findings: Lesion (rt toe , black necrosis) present. Neurological: General: No focal deficit present. Mental Status: He is alert and oriented to person, place, and time. Cranial Nerves: No cranial nerve deficit. Gait: Gait abnormal. Psychiatric: Behavior: Behavior normal. Comments: Depression ASSESSMENT/PLAN: Ischemic necrosis of toe (HCC) (Primary) Small vessel disease (HCC) PAD (peripheral artery disease) (HCC) Immunodeficiency due to drugs (HCC) manager intermediate systemic steroid user Rheumatoid arthritis involving multiple sites with positive rheumatoid factor (HCC) Persistent atrial fibrillation (HCC) COPD, group B, by GOLD 2017 classification (HCC) Chronic systolic heart failure (HCC) Cardiomyopathy, unspecified type (HCC) Moderate episode of recurrent major depressive disorder (HCC) Cont meds Ok to take extra percocet per day - total 5 tabs per day Fu with vascular tmrw F/u with rheuma, cardio Spent 40 min Anahy Grayson MD documented in this encounter Nursing Notes * Connie Berumen LPN - 08/07/2023 3:04 PM EDT Chief Complaint Patient presents with Acute Pt being seen today for pain in right big toe. Need referral for vascular issues and aneurisms thatrun in the family. documented in this encounter Plan of Treatment Upcoming Encounters Date Type Department Care Team (Late st Contact Info) Description 08/08/2023 10:30 AM EDT Office Visit Vascular Surgery, [facility] 132 [facility] [place] [address] Tre Lange MD [address] [place] [address] 08/08/2023 11:30 AM EDT PulmDiagnostic Sleep Lab [facility] 132 [facility] [place] [address] [facility], Sleep Med Home Study [address] [place] [address] 08/09/2023 2:30 PM EDT Cardiac Studies Cardiac Studies, [facility] [address] [place] [address] 08/17/2023 4:00 PM EDT Home Visit [facility] [address] [place] [address] Cindy Underwood, RN 132 [facility] [place] [address] 08/21/2023 12:30 PM EDT Therapy Neuropsychology [facility] 200 [facility] [place] [address] Logan Morales, PhD 200 [facility] [place] [address] 08/28/2023 9:00 AM EDT Office Visit Rheumatology [address] [place] [address] Jimmy Giang MD [facility] [email or web address] [place] [address] 09/13/2023 8:40 AM EDT Office Visit Neurology [facility] 200 [facility] [place] [address] Aparna Ruano PA-C 200 [facility] [place] [address] 09/17/2023 1:40 PM EDT Office Visit [facility] [address] [place] [address] Anahy Grayson MD [address] [place] [address] Scheduled Procedures Name Priority Associated Diagnoses Date/Ti me COLONOSCOPY FLEXIBLE PROXIMAL DIAGNOSTIC Recall Colon cancer screening Health Maintenance Due Date Last Done Comments DISCUSS TOBACCO CESSATION (REFER TO SMARTSET #3291) 1965 COVID-19 Vaccine (#1) 02/09/1969 Alpha-1 Antitrypsin 02/09/1982 Zoster Vaccines (1 of 2) 02/09/1983 Cologuard 02/09/2009 Fecal Occult Blood Test 02/09/2009 Sigmoidoscopy 02/09/2009 Depression Screening 03/21/2020 03/21/2019 *COPD SEVERITY VERIFIED BY PFT 06/25/2022 Influenza Vaccine (FLU shot) (#1) 2023 03/03/2021, 02/12/2020, 03/21/2019, Additional history exists O2 ASSESSMENT COMPLETED IN PAST YEAR FOR COPD 10/12/2023 10/11/2022 DIG LEVEL FOR MEDICATION MONITORING YEARLY 10/14/2023 10/13/2022, 08/28/2022 DXA Scan 12/07/2023 12/06/2021, 12/06/2021 Pneumococcal Vaccine: Pediatrics (0 to 5 Years) and At-Risk Patients (6 to 64 Years) (3 of 3 - PPSV23 or PCV20) 02/11/2025 02/12/2020, 03/21/2019 Diabetes Screening 08/04/2026 08/05/2023, 0 07/18/2023, 03/28/2023, Additional history exists Colonoscopy 07/24/2027 07/24/2017, 07/24/2017 Colorectal Cancer Screening 07/24/2027 Lipid Panel 08/29/2027 08/28/2022, 07/26, 06/06/2021, Additional history exists DTaP,Tdap,and Td Vaccines (2 - Td or Tdap) 02/11/2030 02/12/2020, 03/28/2007 Hepatitis B Completed 05/27/2019, 09/25, 08/26/2018 VITAMIN D LEVEL ONCE IN A LIFETIME-USE SMARTSET# 97175 Completed 08/01/2023, 08/04/2021 GARDASIL-HPV IMMUNIZATION SERIES Aged Out No longer eligible based on patient's age to complete this topic MENINGOCOCCAL (MENACTRA/MENVEO) Aged Out No longer eligible based on patient's age to complete this topic documented as of this encounter Medical Devices Not on filedocumented as of this encounter Visit Diagnoses Diagnosis 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 Small vessel disease (HCC) Peripheral vascular disease, unspecified PAD (peripheral artery disease) (HCC) Peripheral vascular disease, unspecified Immunodeficiency due to drugs (HCC) manager intermediate systemic steroid user Rheumatoid arthritis involving multiple sites with positive rheumatoid factor (HCC) Persistent atrial fibrillation (HCC) Atrial fibrillation COPD, group B, by GOLD 2017 classification (HCC) Chronic systolic heart failure (HCC) Chronic systolic heart failure Cardiomyopathy, unspecified type (HCC) Moderate episode of recurrent major depressive disorder (HCC) HFrEF (heart failure with reduced ejection fraction) (HCC) DDD (degenerative disc disease), lumbar Degeneration of lumbar or lumbosacral intervertebral disc Scoliosis, unspecified scoliosis type, unspecified spinal region documented in this encounter Care Teams Protective Signal Installer Helper Relationship Specialty Start Date End Date Anahy Grayson MD [address] [place] [address] PCP - General Internal Medicine 01/27/22 documented as of this encounter
--- OUTSIDE RECORDS SUMMARY | 2023-08-13 00:08 | External Medical Summary | Summary of Care ---
Author Name Unknown Organization [facility] Address [address] [place] [address] Phone [phone] Care Team Providers Care Fitter Machinist Name Role Phone Anahy Grayson MD Primary Care Provider [phone] Reason for Visit * Reason Comments eRx-Medication Refill Encounter Details Date Type Department Care Team (Late st Contact Info) Description 08/07/2023 Refill Cardiology, [facility] [address] [place] [address] Elizabeth Johnson CRNP [address] [facility] [place] [address] HTN, goal below 140/90* Allergies No known active allergiesdocumented as of this encounter (statuses as of 08/08/2023) Medications Medication Sig Dispensed Refills Start Date End Date Status Aspirin 81 MG Oral Tablet Delayed Release Take 1 Tablet by mouth in the morning. 0 Active Spiriva Respimat 2.5 MCG/ACT Inhalation Aerosol Solution (Tiotropium [place] Monohydrate) Inhale by mouth 2 Puffs in the morning. 4 g 11 03/21/2022 Active Vitamin D3 10 MCG (400 UNIT) Oral Tablet Take 1 Tablet by mouth in the morning. 0 Active Centrum Silver 50+Men Oral Tablet Take 1 Tablet by mouth in the morning. 0 Active oxygen IN GAS Use 2 L/min(Oxygen) as directed. 0 Active Entresto 24-26 MG Oral Tablet (sacubitril-valsa rtan 24-26 mg per tab) Take 1 Tablet [...] 08/08/2022 Active Eliquis 5 MG Oral Tablet (Apixaban)Indicat ions:Persistent atrial fibrillation (HCC) TAKE ONE TABLET BY MOUTH 2 TIMES A DAY 180 Tablet 3 08/15/2022 Active Metoprolol Succinate ER 25 MG Oral Tablet Extended Release 24 Hour (toPROL XL) Take 1 Tablet by mouth in the morning and 1 Tablet before bedtime. In addition to 100 mg daily. Total of 125 mg twice per day.. 180 Tablet 3 09/19/2022 Active Rosuvastatin Calcium 5 MG Oral Tablet (Crestor)Indicati ons:Coronary artery disease involving [place]-apache coronary artery of [place] heart without angina pectoris,HFrEF (heart failure with reduced ejection fraction) ([facility]),HTN, goal below 140/90,Dyslipidem ia, goal LDL below 70,Palpitations TAKE ONE TABLET [...] Active Sarilumab 200 MG/1.14ML Subcutaneous Solution Auto-injector (Kevzara)Indicati ons:Rheumatoid arthritis involving multiple sites with positive rheumatoid factor (HCC) Inject 1.14 mL under the skin every 14 days. 2.28 mL 11 03/05/2023 Active Omeprazole 40 MG Oral Capsule Delayed Release (PriLOSEC) Take 1 Capsule by mouth in the morning. 1 hour before the first meal of the day.. 90 Capsule 3 03/15/2023 Active Sildenafil Citrate 20 MG Oral Tablet (Revatio)Indicati ons:Raynaud's disease with gangrene (HCC) TAKE ONE TABLET BY MOUTH EVERY MORNING , 1 TABLET AT NOON AND 2 TABLETS BEFORE BEDTIME 90 Tablet 2 03/30/2023 Active sulfaSALAzine 500 MG Oral Tablet Delayed Release (Azulfidine Entab) Take 1 Tablet by mouth in the morning. 0 Active Jardiance 10 MG Oral Tablet (Empagliflozin)In dications:HFrEF (heart failure with reduced ejection fraction) (HCC) TAKE 1 TABLET BY MOUTH EVERY MORNING 90 Tablet 3 05/08/2023 Active Furosemide 20 MG Oral Tablet (Lasix)Indication s:HFrEF (heart failure with reduced ejection fraction) ([facility]) Take 2 Tablets by mouth in the morning. 180 Tablet 3 06/06/2023 Active oxyCODONE-Acetami nophen 10-325 MG Oral Tablet (Percocet) Take 1 Tablet by mouth every 6 hours as needed for Pain, Severe. Do not start before July 25, 2023. 120 Tablet 0 07/25/2023 Active predniSONE 5 MG Oral Tablet (Deltasone)Indica tions:Rheumatoid arthritis involving multiple sites with positive rheumatoid factor (HCC) TAKE 1 TO 2 TABLETS BY MOUTH ONCE DAILY FOR RHEUMATOID ARTHRITIS 60 Tablet 5 08/01/2023 Active Escitalopram Oxalate 10 MG Oral Tablet (Lexapro) Take 1 Tablet by mouth in the morning. 30 Tablet 0 08/05/2023 Active Spironolactone 25 MG Oral Tablet (Aldactone)Indica tions:HTN, goal below 140/90 TAKE 1/2 TABLET BY MOUTH EVERY MORNING 45 Tablet 3 08/08/2023 Active Spironolactone 25 MG Oral Tablet (Aldactone) Take 0.5 Tablets by mouth in the morning. 15 Tablet 5 10/17/2022 Discontinued documented as of this encounter (statuses as of 08/08/2023) Active Problems Problem Noted Date Diagnosed Date [...] dose Rx Exacerbation plan o Chest Xray detention systemic steroid user 06/23/2022 Scoliosis 06/23/2022 SVT [...] 01/31/2022 DDD (degenerative disc disease), lumbar 02/01/20 22 Immunodeficiency due to drugs 01/31/2022 Age-related nuclear cataract, bilateral 02/01/20 22 Hepatitis C virus infection cured after antiviral [...] as of this encounter (statuses as of 08/08/2023) Resolved Problems Problem Noted Date Diagnosed Date [...] as of this encounter (statuses as of 08/08/2023) Immunizations Name Administration Dates Next Due HepA Inact/HepB Recomb>=18yrs old 08/26/2018 Hepatitis B, 20+ yrs 05/27/2019,10/10/2018 Pneumococcal Conjugate Vacc, 13 Valent (Prevnar) 03/21/2019 Pneumococcal Polysaccharide PPV23 (Pneumovax) 02/12/2020 Seasonal Influenza, PF, 6 M & above, IM , (FluLaval or Fluzone) 03/03/2021,02/12/2020,03/21/2019,12/08/2017,03/15/2017 04/30/2019 TD - Tetanus/Diptheria (ADULT) 03/28/2007 TDAP [...] on file documented as of this encounter Miscellaneous Notes * Telephone Encounter - Aparna Burrell, - 08/08/2023 11:39 AM EDT Signed Prescriptions: Disp Refills Spironolactone 25 MG Oral Tablet (Aldacton*45 Tab*3 Sig: TAKE 1/2 TABLET BY MOUTH EVERY MORNING Authorizing Provider: APARNA BURRELL * Telephone Encounter - Nikole Dunne COT - 08/07/2023 10:44 AM EDTPending Prescriptions: Disp Refills Spironolactone 25 MG Oral Tablet (Aldacton*45 Tab*3 Sig: TAKE 1/2 TABLET BY MOUTH EVERY MORNING * Telephone Encounter - Nikole Dunne COT - 08/07/2023 10:43 AM EDT Did you pend patient's preferred pharmacy and medication before forwarding?yes Pharmacy: [id number] [facility] Pending Prescriptions: Disp Refills Spironolactone 25 MG Oral Tablet (Aldacto*45 Tab*3 Sig: TAKE 1/2 TABLET BY MOUTH EVERY MORNING Last Visit: 12/19/2022 (in office), 08/11/2022 (telemedicine) Next Visit: Visit date not found If no future appointments scheduled, and last appointment is greater than a year ago, please schedule patient for a follow-up appointment Last date the medication was ordered: 10-17-2022 Is this request for a controlled substance?No Urine Drug Screen: Results for orders placed or performed in visit on 11/17/22 TOXICOLOGY, URINE SCREEN W/ CONFIRMATION Result Value Amphetamines Screen, U Negative Benzodiazepines Screen, U Negative Cannabinoids Screen, U Negative Cocaine Metabolite Screen, U Negative Fentanyl Screen, U Negative Hydrocodone Screen, U Negative Methadone Metabolite Screen, U Negative Morphine/Codeine Screen, U Negative Oxycodone Screen, U Negative Narrative Cutoff Concentrations: Drug Level Amphetamines 500 ng/mL Benzodiazepines 100 ng/mL Cannabinoids 50 ng/mL Cocaine Metabolite 150 ng/mL Fentanyl 1 ng/mL Hydrocodone / Hydromorphone 300 ng/mL Methadone Metabolite 100 ng/mL Morphine / Codeine 300 ng/mL Oxycodone / Oxymorphone 100 ng/mL Screening results are presumptive and can only be used for medical purposes. Positive screening results are reflexed to confirmatory testing. *Note: Due to a large number of results and/or encounters for the requested time period, some results have not been displayed. A complete set of results can be found in Results Review. Patient Phone Numbers Labs: Lab Results Component Value Date/Time CREAT 1.3 (H) 08/05/2023 02:59 PM CREAT 0.63 04/06/2022 12:00 AM CREAT 0.7 12/15/2019 02:28 PM POTASSIUM 4.4 08/05/2023 02:59 PM POTASSIUM 3.7 04/06/2022 12:00 AM POTASSIUM 4.3 12/15/2019 02:28 PM TSH 3.56 03/21/2022 09:15 AM TSH 1.43 01/15/2014 10:21 AM LDLCALC 43 08/28/2022 11:20 AM LDLCALC 53 11/19/2017 03:31 PM LDLDIRECT NOT APPLICABLE 12/21/2015 08:52 AM ALT 24 08/05/2023 02:59 PM ALT 13 12/15/2019 02:28 PM HGBA1C 5.9 (H) 01/31/2022 10:09 AM HGBA1C 6.0 (A) 08/16/2017 12:00 AM documented in this encounter Plan of Treatment Upcoming Encounters Date Type Department Care Team (Late st Contact Info) Description 08/08/2023 1:00 PM EDT PulmDiagnostic Sleep Lab Shannon Weiner [address] [place] [address] Dawn Weiner Med Home Study [place] [address] 08/09/2023 2:30 PM EDT Cardiac Studies [facility], [facility] [address] [place] [address] 08/17/2023 4:00 PM EDT [facility], [facility] [address] [place] [address] Cindy Underwood, RN [address] [place] [address] 08/21/2023 12:30 PM EDT Therapy Neuropsychology [facility] [address] [facility] [place] [address] Logan Morales, PhD 200 [facility] [place] [address] 08/28/2023 9:00 AM EDT Office Visit Rheumatology [place] [address] [place] [address] [place] [address] Jimmy Giang MD [facility] C4 Imaging [facility] [address] [place] [address] 09/04/2023 3:15 PM EDT Office Visit Vascular Surg [facility] [address] [place] [address] Tre Lange MD [address] [place] [address] 09/13/2023 8:40 AM EDT Office Visit Neurology [facility] 200 [facility] [place] [address] Aparna Ruano PA-C [address] [facility] [address] [place] [address] 09/17/2023 1:40 PM EDT Office Visit [facility] [address] [place] [id number] Anahy Grayson MD [address] [place], [place] [address] Scheduled Procedures Name Priority Associated Diagnoses Date/Ti me COLONOSCOPY FLEXIBLE PROXIMAL DIAGNOSTIC Recall Colon cancer screening Health Maintenance Due Date Last Done Comments DISCUSS TOBACCO CESSATION (REFER TO SMARTSET #1848) 1965 COVID-19 Vaccine (#1) 02/09/1969 Alpha-1 Antitrypsin [...] D LEVEL ONCE IN A LIFETIME-USE SMARTSET# 39117 Completed 08/01/2023, 08/04/2021 GARDASIL-HPV IMMUNIZATION SERIES Aged Out No longer eligible based on patient's age to complete this topic MENINGOCOCCAL (MENACTRA/MENVEO) Aged Out No longer eligible based on patient's age to complete this topic documented as of this encounter Medical Devices Not on filedocumented as of this encounter Visit Diagnoses Diagnosis HTN, goal below 140/90- Primary Unspecified essential hypertension documented in this encounter Care Teams Fitter Machinist Relationship Specialty Start Date End Date Anahy Grayson MD [address] [place] [address] PCP - General Internal Medicine 01/27/22 documented as of this encounter
--- OUTSIDE RECORDS SUMMARY | 2023-08-13 00:08 | External Medical Summary | Summary of Care ---
Author Name Unknown Organization [facility] Address [address] [place] [facility] [place] [place] [address] Phone [phone] Care Team Providers Care Research Program Assistant Name Role Phone Anahy Grayson MD Primary Care Provider [phone] Reason for Visit * Reason Onset Date Comments Emergency Department Follow-Up 08/06/2023 Encounter Details Date Type Department Care Team (Late st Contact Info) Description 08/06/2023 11:30 AM EDT Scheduled Telephone [facility], [facility] 132 [facility] [place] [address] Coordinator, [facility] [address] [facility] [place] [address] Allergies No known active allergiesdocumented as of this encounter (statuses as of 08/06/2023) Medications Medication Sig Dispensed Refills Start Date End Date Status Aspirin 81 MG Oral Tablet Delayed Release Take 1 Tablet by mouth in the morning. 0 Active Spiriva Respimat 2.5 MCG/ACT Inhalation Aerosol Solution (Tiotropium [place] Monohydrate) Inhale by mouth 2 Puffs in [...] Oral Tablet (Crestor)Indications :Coronary artery disease involving council coronary artery of council heart without angina pectoris,HFrEF (heart failure with reduced ejection fraction) ([facility]),HTN, goal below 140/90,Dyslipidemia, goal LDL below 70,Palpitations [...] Active Sarilumab 200 MG/1.14ML Subcutaneous Solution Auto-injector (tarpipe)Indications :Rheumatoid arthritis involving multiple sites with positive rheumatoid factor ([facility]) Inject 1.14 mL under the skin every 14 days. 2.28 mL 11 03/05/2023 Active Omeprazole 40 MG Oral Capsule Delayed Release (PriLOSEC) Take 1 Capsule by mouth in the morning. 1 hour before the first meal of the day.. 90 Capsule 3 03/15/2023 Active Sildenafil Citrate 20 MG Oral Tablet (Revatio)Indications :Raynaud's disease with gangrene ([facility]) TAKE ONE TABLET BY MOUTH EVERY MORNING , 1 TABLET AT NOON AND 2 TABLETS BEFORE BEDTIME 90 Tablet 2 03/30/2023 Active sulfaSALAzine 500 MG Oral Tablet Delayed Release (Azulfidine Entab) Take 1 Tablet by mouth in the morning. 0 Active Jardiance 10 MG Oral Tablet (Empagliflozin)Indic ations:HFrEF (heart failure with reduced ejection fraction) ([facility]) TAKE 1 TABLET BY MOUTH EVERY MORNING 90 Tablet 3 05/08/2023 Active Furosemide 20 MG Oral Tablet (Lasix)Indications:H FrEF (heart failure with reduced ejection fraction) ([facility]) Take 2 Tablets by mouth in the morning. 180 Tablet 3 06/06/2023 Active oxyCODONE-Acetaminop hen 10-325 MG Oral Tablet (Percocet) Take 1 Tablet by mouth every 6 hours as needed for Pain, Severe. Do not start before July 25, 2023. 120 Tablet 0 07/25/2023 Active predniSONE 5 MG Oral Tablet (Deltasone)Indicatio ns:Rheumatoid arthritis involving multiple sites with positive rheumatoid factor ([facility]) TAKE 1 TO 2 TABLETS BY MOUTH ONCE DAILY FOR RHEUMATOID ARTHRITIS 60 Tablet 5 08/01/2023 Active Escitalopram Oxalate 10 MG Oral Tablet (Lexapro) Take 1 Tablet by mouth in the morning. 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 06/23/2022 Scoliosis 06/23/2022 SVT [...] as of this encounter (statuses as of 08/06/2023) Resolved Problems Problem Noted Date Diagnosed Date [...] as of this encounter (statuses as of 08/06/2023) Immunizations Name Administration Dates Next Due HepA [...] encounter Miscellaneous Notes * Telephone Encounter - Michell Leiva RN - 08/06/2023 1:36 PM EDT [facility] ED Follow Up Patient Overview: Patient Name: Harrison Morgan Discharging Facility: [facility] Current [facility] Status: Currently Enrolled - Focused Care Management Outpatient Risk of Hospital Admission and ED Visit: 42 % ED Clinical Background: ED Discharge Diagnosis: Other: right great toe pain, psych eval Objective Data 08/05/2023 5:00 PM 08/05/2023 4:15 PM 08/05/2023 4:00 PM 08/05/2023 3:45 PM 08/05/2023 3:42 PM VITALS ACROSS ENCOUNTERS BP 100/74 104/83 105/79 97/75 105/70 Pulse 82 101 97 90 104 Disposition Overview: Remote Patient Monitoring Given: NO Remote Patient Monitoring Oxygen Requirements: NO supplemental oxygen needs identified with status of: NO DME needs identified DME Needs: NO DME needs identified with status of: NO DME needs identified Medication Review: New medication(s) added: Lexapro 10 mg, 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 Current Concerns: Spoke to Harrison, he states he is ok. He did not pick and shovel man lexapro from pharmacy yet, he is doing that today along with scheduling appt with PCP. I reminded him of appt with vascular surgery on 08/07. He has no questions or concerns for this nurse. Patient encouraged to call [facility] intake phone number for all urgent, non-emergent health issues. [facility] contact information provided. Scheduled follow-up includes: ED to Home follow up complete with appropriate follow up scheduled. Future Visits Scheduled: Future Appointments-next 60 days Date/Time Provider Specialty Dept Phone 08/08/2023 10:30 AM Tre Lange MD Vascular Surgery [phone] 08/09/2023 2:30 PM ECHO TECH3 [facility] Cardiac Studies [phone] 08/17/2023 4:00 PM Cindy Underwood RN [facility] [phone] 08/21/2023 12:30 PM Logan Morales, PhD Psychiatry [phone] 08/28/2023 9:00 AM (Arrive by 8:45 AM) Jimmy Giang MD Rheumatology [phone] 09/13/2023 8:40 AM (Arrive by 8:25 AM) Aparna Ruano PA-C Neurology [phone] 09/17/2023 1:40 PM (Arrive by 1:25 PM) Anahy Grayson MD Family Medicine [phone] Michell Leiva RN Telehealth Scheduling Guidelines Current Health Monitor Ordering Guidelines documented in this encounter Plan of Treatment Upcoming Encounters Date Type Department Care Team (Late st Contact Info) Description 08/07/2023 3:00 PM EDT Office Visit [address] [place] [address] Anahy Grayson MD [address] [place] [address] 08/08/2023 10:30 AM EDT Office Visit Vascular Surgery, [facility] 132 [place] [address] Tre Lange MD [address] [place] [address] 08/09/2023 2:30 PM EDT Cardiac Studies Cardiac Studies, [facility] 132 [facility] [place] [address] 08/17/2023 4:00 PM EDT Home Visit [facility], [facility] 132 [place] [address] Cindy Underwood, RN [address] [place] [address] 08/21/2023 12:30 PM EDT Therapy Neuropsychology [facility] [place] [address] Logan Morales, PhD 200 [facility] [place] [address] 08/28/2023 9:00 AM EDT Office Visit Rheumatology [place] [address] [facility] [place], [place] [address] Jimmy Giang MD [address] [place] [address] 09/13/2023 8:40 AM EDT Office Visit Neurology [facility] [address] [place] [address] Aparna Ruano PA-C [address] [place] [address] 09/17/2023 1:40 PM EDT Office Visit [facility] [address] [facility] [place] [phone] Anahy Grayson MD [address] [place] [address] Scheduled Procedures Name Priority Associated Diagnoses Date/Ti me COLONOSCOPY FLEXIBLE PROXIMAL DIAGNOSTIC Recall Colon cancer screening Health Maintenance Due Date Last Done Comments DISCUSS TOBACCO CESSATION (REFER TO SMARTSET #329) 1965 COVID-19 Vaccine (#1) 02/09/1969 Alpha-1 Antitrypsin [...] D LEVEL ONCE IN A LIFETIME-USE SMARTSET# [id number] Completed 08/01/2023, 08/04/2021 GARDASIL-HPV IMMUNIZATION SERIES Aged Out No longer eligible based on patient's age to complete this topic MENINGOCOCCAL (MENACTRA/MENVEO) Aged Out No longer eligible based on patient's age to complete this topic documented as of this encounter Medical Devices Not on filedocumented as of this encounter Care Teams Research Program Assistant Relationship Specialty Start Date End Date Anahy Grayson MD [address] [place] [address] PCP - General Internal Medicine 01/27/22 documented as of this encounter
--- OUTSIDE RECORDS SUMMARY | 2023-08-13 00:08 | External Medical Summary | Summary of Care ---
Author Name Unknown Organization [facility] Address [address] [place] [address] Phone [phone] Care Team Providers Care Advertising Dispatch Clerks Supervisor Name Role Phone Anahy Grayson MD Primary Care Provider [phone] Reason for Visit * Reason Onset Date Comments Pre Cert/Prior Auth 08/10/2023 Encounter Details Date Type Department Care Team (Late st Contact Info) Description 08/10/2023 Telephone Rheumatology, [place] [address], [place] [id number] Jimmy Giang MD [address] [facility] [place] [address] Pre Cert/Prior Auth Allergies No known active allergiesdocumented as of this encounter (statuses as of 08/10/2023) Medications Medication Sig Dispensed Refills Start Date End Date Status Aspirin 81 MG Oral Tablet Delayed Release Take 1 Tablet by mouth in the morning. 0 Active Spiriva Respimat 2.5 MCG/ACT Inhalation Aerosol Solution (Tiotropium [place] Monohydrate) Inhale by mouth 2 Puffs in [...] MOUTH 2 TIMES A DAY 180 Tablet 08/15/2022 Active Metoprolol Succinate ER 25 MG Oral Tablet Extended Release 24 Hour (toPROL XL) Take 1 Tablet by mouth in the morning and 1 Tablet before bedtime. In addition to 100 mg daily. Total of 125 mg twice per day.. 180 Tablet 3 09/19/2022 Active Rosuvastatin Calcium 5 MG Oral Tablet (Crestor)Indications :Coronary artery disease involving [place] coronary artery of [place] heart without angina pectoris,HFrEF (heart failure with reduced ejection fraction) ([facility]),HTN, goal below 140/90,Dyslipidemia, goal LDL below 70,Palpitations TAKE ONE TABLET BY MOUTH EVERY MORNING 30 Tablet 10/31/2022 Active Alendronate Sodium 70 MG Oral [...] Active Sarilumab 200 MG/1.14ML Subcutaneous Solution Auto-injector (GetMyBoatzaNeurogesX)Indications :Rheumatoid arthritis involving multiple sites with positive rheumatoid factor ([facility]) Inject 1.14 mL under the skin every 14 days. 2.28 mL 11 03/05/2023 Active Omeprazole 40 MG Oral Capsule Delayed Release (PriLOSEC) Take 1 Capsule by mouth in the morning. 1 hour before the first meal of the day.. 90 Capsule 3 03/15/2023 Active Sildenafil Citrate 20 MG Oral Tablet (Revatio)Indications :Raynaud's disease with gangrene (HCC) TAKE ONE TABLET BY MOUTH EVERY MORNING , 1 TABLET AT NOON AND 2 TABLETS BEFORE BEDTIME 90 Tablet 2 03/30/2023 Active sulfaSALAzine 500 MG Oral Tablet Delayed Release (Azulfidine Entab) Take 1 Tablet by mouth in the morning. 0 Active Jardiance 10 MG Oral Tablet (Empagliflozin)Indic ations:HFrEF (heart failure with reduced ejection fraction) (HCC) TAKE 1 TABLET BY MOUTH EVERY MORNING 90 Tablet 3 05/08/2023 Active Furosemide 20 MG Oral Tablet (Lasix)Indications:H FrEF (heart failure with reduced ejection fraction) ([facility]) Take 2 Tablets by mouth in [...] 08/05/2023 Active Spironolactone 25 MG Oral Tablet (Aldactone)Indicatio ns:HTN, goal below 140/90 TAKE 1/2 TABLET BY MOUTH EVERY MORNING 45 Tablet 3 08/08/2023 Active documented as of this encounter (statuses as of 08/10/2023) Active Problems Problem Noted Date Diagnosed Date Moderate episode of recurrent major depressive d isorder 08/05/2023 Small vessel disease 08/01/2023 Food insecurity 01/08/2023 Overview: Per [facility] Protocol Senile osteoporosis 01/04/2023 Lung nodules [...] dose Rx Exacerbation plan o Chest Xray [facility] systemic steroid user 06/23/2022 Scoliosis 06/23/2022 SVT [...] as of this encounter (statuses as of 08/10/2023) Resolved Problems Problem Noted Date Diagnosed Date [...] as of this encounter (statuses as of 08/10/2023) Immunizations Name Administration Dates Next Due HepA [...] encounter Miscellaneous Notes * Telephone Encounter - Johnathon Riojas RPh - 08/10/2023 9:23 AM EDT Images from the original note were not included. New or re-auth: re-auth Patient Harrison Morgan needs a prior authorization for a medication through their [facility] insurance. Medication: Kevzara Formulation: pen Dosage: 200mg every 14 days Target ship date is BO. Thank you very much, Johnathon Riojas, PharmD Clinical Pharmacist [facility] 9:29 AM, 08/10/2023 documented in this encounter Plan of Treatment Upcoming Encounters Date Type Department Care Team (Late st Contact Info) Description 08/17/2023 4:00 PM EDT [facility], [facility] [address] [facility] [place] [address] Cindy Underwood, RN [address] [place] [address] 08/21/2023 12:30 PM EDT Therapy Neuropsychology [facility] [address] [facility] [place] [address] Logan Morales, PhD [address] [facility] [place] [address] 08/28/2023 9:00 AM EDT Office Visit Rheumatology [facility] [address] [facility] [place] [address] Jimmy Giang MD [address] [employer] [place] [address] 09/04/2023 3:15 PM EDT Office Visit Vascular Surg [facility] [address] [place] [address] Tre Lange MD [address] [place] [address] 09/13/2023 8:40 AM EDT Office Visit Neurology [facility] [address] [facility] [place] [address] Aparna Ruano PA-C [address] [facility] [place] [address] 09/17/2023 1:40 PM EDT Office Visit [facility] [address] [place] [address] Anahy Grayson MD [address] [place] [address] 01/04/2024 1:00 PM EDT Office Visit Sleep Disorders Ctr [facility] [address] [place] [address] Jasmin Marshall, [address] [place] [address] Scheduled Procedures Name Priority Associated Diagnoses Date/Ti me COLONOSCOPY FLEXIBLE PROXIMAL DIAGNOSTIC Recall Colon cancer screening Health Maintenance Due Date Last Done Comments DISCUSS TOBACCO CESSATION (REFER TO SMARTSET #8602) 1965 COVID-19 Vaccine (#1) 02/09/1969 Alpha-1 Antitrypsin [...] D LEVEL ONCE IN A LIFETIME-USE SMARTSET# [id number] Completed 08/01/2023, 08/04/2021 GARDASIL-HPV IMMUNIZATION SERIES Aged Out No longer eligible based on patient's age to complete this topic MENINGOCOCCAL (MENACTRA/MENVEO) Aged Out No longer eligible based on patient's age to complete this topic documented as of this encounter Medical Devices Not on filedocumented as of this encounter Care Teams Advertising Dispatch Clerks Supervisor Relationship Specialty Start Date End Date Anahy Grayson MD [address] [place] [facility] [place] [address] PCP - General Internal Medicine 01/27/22 documented as of this encounter
--- OUTSIDE RECORDS SUMMARY | 2023-08-13 00:08 | External Medical Summary | Summary of Care ---
Author Name Unknown Organization [facility] Address [address] [place] [address] Phone [phone] Care Team Providers Care E Commerce Developer Name Role Phone Anahy Grayson MD Primary Care Provider [phone] Reason for Visit * Reason Onset Date Comments Advice 07/30/2023 Encounter Details Date Type Department Care Team (Late st Contact Info) Description 07/30/2023 Telephone Vascular Surg [facility] [place] [address] [place] [address] Daphnie Ramirez PA-C [address] [place] [address] Advice Allergies No known active allergiesdocumented as of this encounter (statuses as of 08/06/2023) Medications Medication Sig Dispensed Refills Start Date End Date Status Aspirin 81 MG Oral Tablet Delayed Release Take 1 Tablet by mouth in the morning. 0 Active Spiriva Respimat 2.5 MCG/ACT Inhalation Aerosol Solution (Tiotropium [place] Monohydrate) Inhale by mouth 2 Puffs in [...] Oral Tablet (Crestor)Indicati ons:Coronary artery disease involving [place] coronary artery of [place] heart without angina pectoris,HFrEF (heart failure with [...] dications:HFrEF (heart failure with reduced ejection fraction) ([facility]) TAKE 1 TABLET BY MOUTH EVERY MORNING [...] 25, 2023. 120 Tablet 0 07/25/2023 Active DULoxetine HCl 30 MG Oral Capsule Delayed Release Particles (Cymbalta) Take 1 Capsule by mouth in the morning. Do not cut, crush or chew. 30 Capsule 5 12/15/2022 4 Discontinued predniSONE 5 MG Oral Tablet (Deltasone)Indica tions:Rheumatoid arthritis involving multiple sites with positive rheumatoid factor ([facility]) Take one to two tablets by mouth daily for rheumatoid arthritis. 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 Discussed with Dr Plaza - unlikely cancer given 2 biopsies showing RA nodules * Addendum Note - Kita Gaston MD - 07/31/2023 10:05 AM ESTAddended by: KITA GASTON on: 07/31/2023 10:05 AM Modules accepted: Orders * Telephone Encounter - Kita Gaston MD - 07/31/2023 10:02 AM EST I will send message to patient about osteoporosis management. Dr Plaza - any concerns about the CTof lower lungs from your stand point? * Telephone Encounter - Daphnie Ramirez PA-C - 07/30/2023 7:09 AM EST 07/26/23 CTA abd aorta fem runoff final radiology report notes the following NON- VASCULAR findings: "1. Similar bibasilar solid nodules concerning for underlying metastatic disease. Recommend PET-CT/tissue sampling for further evaluation. 2. Interval progression of moderate chronic L1 and mild chronic T10 compression fracture deformities." Per chart review, follows with Pulmonary (Dr. Caden Plaza) for lung nodules. Had multiple biopsies and bronchoscopies in the past noting RA nodule. He also follows with Rheumatology (Dr. Kita Gaston) who is treating his RA and senile osteoporosis. I will pass findings along to these two providers as well as PCP in case further work-up is required. Dr. Plaza, Dr. Gaston, and Dr. Grayson: I wanted to include all 3 of you since we got a recent CTA abd aorta runoff. Radiologist noted lungnodules, with the left one increasing in size. His compression fractures in the spine are also getting worse. I figured I would pass this information along to all of you in case any further testing needs to be done. I know he follows with you all for RA nodules and osteoporosis. Thanks for your help with this in advance! documented in this encounter Plan of Treatment Upcoming Encounters Date Type Department Care Team (Late st Contact Info) Description 08/08/2023 10:30 AM EDT Office Visit Vascular Surgery, [facility] [address] [facility] [place] [address] Tre Lange MD [address] [place] [address] 08/09/2023 2:30 PM EDT Cardiac Studies Cardiac Studies, [facility] [address] [facility] [place] [address] 08/17/2023 4:00 PM EDT [facility] [address] [facility] [place] [address] Cindy Underwood, RN [address] [facility] [place] [id number] 08/21/2023 12:30 PM EDT Therapy Neuropsychology [facility] [address] [facility] [place] [address] Logan Morales, PhD [address] [facility] [place] [address] 08/28/2023 9:00 AM EDT Office Visit Rheumatology [place] [address] [facility] [place] [address] Kita Gaston MD [facility] [place] [address] 09/13/2023 8:40 AM EDT Office Visit Neurology [facility] [address] [facility] [place] [address] Aparna Ruano PA-C [address] [facility] [place] [address] 09/17/2023 1:40 PM EDT Office Visit [facility] [address] [place] [facility] [place] [address] Anahy Grayson MD [address] [place] [facility] [place] [address] Scheduled Procedures Name Priority Associated Diagnoses Date/Ti me COLONOSCOPY FLEXIBLE PROXIMAL DIAGNOSTIC Recall Colon cancer screening Health Maintenance Due Date Last Done Comments DISCUSS TOBACCO CESSATION (REFER TO SMARTSET #5973) 1965 COVID-19 Vaccine (#1) 02/09/1969 Alpha-1 Antitrypsin [...] D LEVEL ONCE IN A LIFETIME-USE SMARTSET# [id number] Completed 08/01/2023, 08/04/2021 GARDASIL-HPV IMMUNIZATION SERIES Aged Out No longer eligible based on patient's age to complete this topic MENINGOCOCCAL (MENACTRA/MENVEO) Aged Out No longer eligible based on patient's age to complete this topic documented as of this encounter Medical Devices Not on filedocumented as of this encounter Results * (ABNORMAL) 25-HYDROXY VITAMIN D (08/01/2023 11:32 AM EST) 25-Hydroxy Vitamin D 17(L) >19 ng/mL 08/02/2023 3:57 AM EST LAB[facility]ORY [facility] Blood Venous blood specimen / Unknown Venipuncture / Unknown 08/01/2023 11:32 AM EST 08/01/2023 11:32 AM EST Narrative [facility]ORY [facility] - 08/02/2023 3:57 AM EST Deficient: <20 ng/mL Insufficient: 20-29 ng/mL Recommended/Optimum:30-50 ng/mL Vitamin D intoxication is rare. If suspicious of Vitamin D toxicity, evaluation of serum Calcium and PTH is recommended. Kita Gaston MD LAB BLOOD ORDERABLE S Performing Organization Address City/[facility]/ZIP Co de Phone Number LAB[facility]ATORY [facility] [address] [place] [address] * (ABNORMAL) PTH (08/01/2023 11:32 AM EST) PTH 115(H) 15 - 65 pg/mL 08/02/2023 3:57 AM EST [facility] Blood Venous blood specimen / Unknown Venipuncture / Unknown 08/01/2023 11:32 AM EST 08/01/2023 11:32 AM EST Kita Gaston MD LAB BLOOD ORDERABLE S [facility]ORY [facility] [address] [place] [address] documented in this encounter Visit Diagnoses Diagnosis Rheumatoid arthritis involving multiple sites with positive rheumatoid factor (HCC)- Primary Age-related nuclear cataract, 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
--- OUTSIDE RECORDS SUMMARY | 2023-08-13 00:08 | External Medical Summary | Summary of Care ---
Author Name Unknown Organization [facility] Address [address] [place] [address] Phone [phone] Care Team Providers Care Pest Control Worker Helper Name Role Phone Anahy Grayson MD Primary Care Provider [phone] Reason for Referral * Precert (Within 10 days (routine)) - Authorized Specialty Diagnoses / Procedures Referred By Contac t Referred To Contact Cardiac Studies Diagnoses PAD (peripheral artery disease) (HCC) SVT (supraventricular tachycardia) Chronic systolic heart failure (HCC) Cardiomyopathy, unspecified type (HCC) Procedures ECHO, COMPLETE (2D), TRANS-THORACIC Randall Palencia PA-C [address] [place] [address] Referral ID Status Reason Start Date Expiration Date V isits Requested Visits Authorized [id number] Authorized Precert 08/09/2023 999 999 Reason for Visit * Reason Onset Date Comments Cardiology Study 08/09/2023 Encounter Details Date Type Department Care Team (Late st Contact Info) Description 08/09/2023 Telephone Vascular Surg [facility] [address] [place] [address] Randall Palencia PA-C [address] [place] [address] Cardiology Study Allergies No known active allergiesdocumented as of this encounter (statuses as of 08/09/2023) Medications Medication Sig Dispensed Refills Start Date End Date Status Aspirin 81 MG Oral Tablet Delayed Release Take 1 Tablet by mouth in the morning. 0 Active Spiriva Respimat 2.5 MCG/ACT Inhalation Aerosol Solution (Tiotropium [place] Monohydrate) Inhale by mouth 2 Puffs in [...] Oral Tablet (Crestor)Indications :Coronary artery disease involving [place] coronary artery of [place] heart without angina pectoris,HFrEF (heart failure with reduced ejection fraction) ([facility]),HTN, goal below 140/90,Dyslipidemia, goal LDL [...] Oral Tablet (Revatio)Indications :Raynaud's disease with gangrene ([facility]) TAKE ONE TABLET BY MOUTH EVERY MORNING , 1 TABLET AT NOON AND 2 TABLETS BEFORE BEDTIME 90 Tablet 2 03/30/2023 Active sulfaSALAzine 500 MG Oral Tablet Delayed Release (Azulfidine Entab) Take 1 Tablet by mouth in the morning. 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 06/23/2022 Scoliosis 06/23/2022 [...] as of this encounter (statuses as of 08/09/2023) Resolved Problems Problem Noted Date Diagnosed Date [...] as of this encounter (statuses as of 08/09/2023) Immunizations Name Administration Dates Next Due HepA Inact/HepB Recomb>=18yrs old 08/26/2018 Hepatitis B, 20+ yrs 05/27/2019,10/10/2018 Pneumococcal Conjugate Vacc, 13 Valent (Prevnar) 03/21/2019 Pneumococcal Polysaccharide PPV23 (Pneumovax) 02/12/2020 Seasonal Influenza, PF, 6 M & above, IM , (FluLaval or Fluzone) 03/03/2021,02/12/2020,03/21/2019,1208/2017,03/15/2017 04/30/2019 TD - Tetanus/Diptheria (ADULT) 03/28/2007 TDAP [...] on file documented as of this encounter Plan of Treatment Upcoming Encounters Date Type Department Care Team (Late st Contact Info) Description 08/17/2023 4:00 PM EDT [facility] 132 [facility] [place] [address] Cindy Underwood, RN 132 [facility] [place] [address] 08/21/2023 12:30 PM EDT Therapy Neuropsychology [facility] [address] [facility] [place] [address] Logan Morales, PhD [address] [facility] [place] [address] 08/28/2023 9:00 AM EDT Office Visit Rheumatology [address] [place] [address] Jimmy Giang MD [address] [facility] [place] [address] 09/04/2023 3:15 PM EDT Office Visit Vascular Surg [facility] [address] [place] [address] Tre Lange MD [address], [place] [id number] 09/13/2023 8:40 AM EDT Office Visit Neurology [facility] [address] [facility] [place] [address] Aparna Ruano PA-C [address] [facility] [place] [address] 09/17/2023 1:40 PM EDT Office Visit [facility] [address] [place] [address] Anahy Grayson MD [address] [place] [address] 01/04/2024 1:00 PM EDT Office Visit Sleep Disorders Ctr [facility] [address] [facility] [place] [id number] Jasmin Marshall, [address] [place] [address] Pending Results Name Type Priority Associated Diagnoses Date /Time ECHO, COMPLETE (2D), TRANS-THORACIC Echocardiology Routine PAD (peripheral artery disease) (HCC) SVT (supraventricular tachycardia) Chronic systolic heart failure (HCC) Cardiomyopathy, unspecified type (HCC) 08/09/2023 2:43 PM EDT Scheduled Orders Name Type Priority Associated Diagnoses Orde r Schedule ECHO, COMPLETE (2D), TRANS-THORACIC Echocardiology Routine PAD (peripheral artery disease) (HCC) SVT (supraventricular tachycardia) Chronic systolic heart failure (HCC) Cardiomyopathy, unspecified type (HCC) Expected: 08/09/2023 (Approximate), Expires: 08/10/2023 Scheduled Procedures Name Priority Associated Diagnoses Date/Ti me COLONOSCOPY FLEXIBLE PROXIMAL DIAGNOSTIC Recall Colon cancer screening Health Maintenance Due Date Last Done Comments DISCUSS TOBACCO CESSATION (REFER TO SMARTSET #3293) 1965 COVID-19 Vaccine (#1) 02/[birth year]/1969 Alpha-1 Antitrypsin [...] D LEVEL ONCE IN A LIFETIME-USE SMARTSET# [id number] Completed 08/01/2023, 08/04/2021 GARDASIL-HPV IMMUNIZATION SERIES Aged Out No longer eligible based on patient's age to complete this topic MENINGOCOCCAL (MENACTRA/MENVEO) Aged Out No longer eligible based on patient's age to complete this topic documented as of this encounter Medical Devices Not on filedocumented as of this encounter Visit Diagnoses Diagnosis PAD (peripheral artery disease) (HCC)- Primary Peripheral vascular disease, unspecified SVT (supraventricular tachycardia) Other specified cardiac dysrhythmias Chronic systolic heart failure (HCC) Chronic systolic heart failure Cardiomyopathy, unspecified type (HCC) documented in this encounter Care Teams Pest Control Worker Helper Relationship Specialty Start Date End Date Anahy Grayson MD [address] [place] [address] PCP - General Internal Medicine 01/27/22 documented as of this encounter
--- OUTSIDE RECORDS SUMMARY | 2023-08-13 00:09 | External Medical Summary ---
Author Name Unknown Address Unknown Organization [id number]:LABORATORY [facility] - [address] [place] [id number] Laboratory Report Ordering Provider Test Date Status HENRY COELHO JR 08/05/2023 14:59:49 Final Observation Date Value Abnormality Reference (Units ) Status Troponin T 08/05/2023 14:59:49 29 Above high normal < =22 (ng/L) Final Performing Location LABORATORY [facility] - [address] [place] [phone]
--- OUTSIDE RECORDS SUMMARY | 2023-08-13 00:09 | External Medical Summary | Summary of Care ---
Author Name Unknown Organization [facility] Address [address] [place] [address] Phone [phone] Care Team Providers Care Hand Bunch Maker Name Role Phone Anahy Grayson MD Primary Care Provider [phone] Reason for Visit * Reason Onset Date Comments Advice 07/30/2023 Encounter Details Date Type Department Care Team (Late st Contact Info) Description 07/30/2023 Telephone Vascular Surg [facility] [place] [address] [place] [address] Daphnie Ramirez PA-C [address], [place] [phone] Advice Allergies No known active allergiesdocumented as of this encounter (statuses as of 08/02/2023) Medications Medication Sig Dispensed Refills Start Date End Date Status Aspirin 81 MG Oral Tablet Delayed Release Take 1 Tablet by mouth in the morning. 0 Active Spiriva Respimat 2.5 MCG/ACT Inhalation Aerosol Solution (Tiotropium [place] Monohydrate) Inhale by mouth 2 Puffs in [...] Oral Tablet (Crestor)Indicati ons:Coronary artery disease involving [place] coronary artery of [place] heart without angina pectoris,HFrEF (heart failure with reduced ejection fraction) (HCC),HTN, goal below 140/90,Dyslipidem ia, goal LDL below [...] 3 doses in 15 minutes 25 Tablet 12/15/2022 Active DULoxetine HCl 30 MG Oral Capsule Delayed Release Particles (Cymbalta) Take 1 Capsule by mouth in the morning. Do not cut, crush or chew. 30 Capsule 5 12/15/2022 Active Ondansetron HCl 4 MG Oral [...] dications:HFrEF (heart failure with reduced ejection fraction) ([facility]) TAKE 1 TABLET BY MOUTH EVERY MORNING 90 Tablet 3 05/08/2023 Active Furosemide 20 MG Oral Tablet (Lasix)Indication s:HFrEF (heart failure with reduced ejection fraction) ([facility]) Take 2 Tablets by mouth in the morning. 180 Tablet 3 06/06/2023 Active oxyCODONE-Acetami nophen 10-325 MG Oral Tablet (Percocet) Take 1 Tablet by mouth every 6 hours as needed for Pain, Severe. Do not start before July 25, 2023. 120 Tablet 0 07/25/2023 Active predniSONE 5 MG Oral Tablet (Deltasone)Indica tions:Rheumatoid arthritis involving multiple sites with positive rheumatoid factor ([facility]) Take one to two tablets by mouth daily for rheumatoid arthritis. 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 Discussed with Dr Plaza - unlikely [...] 10:30 AM EDT Office Visit Vascular Surgery, [facility] [address] [facility] [place] [address] Tre Lange MD [address] [place] [address] 08/09/2023 2:30 PM EDT Cardiac Studies Cardiac Studies, [facility] [address] [facility] [place] [address] 08/17/2023 4:00 PM EDT [facility] Visit [facility], [facility] [address] [facility] [place] [address] Cindy Underwood, RN [address] [facility] [place] [address] 08/21/2023 12:30 PM EDT Therapy Neuropsychology [facility] [address] [place] [address] Logan Morales, PhD [address] [facility] [place] [address] 08/28/2023 9:00 AM EDT Office Visit Rheumatology [facility] [address] [facility] [place] [address] Kita Gaston MD [address] [facility] [place] [address] 09/13/2023 8:40 AM EDT Office Visit Neurology [facility] [address] [facility] [place] [address] Aparna Ruano PA-C [address] [facility] [place] [address] 09/17/2023 1:40 PM EDT Office Visit [facility] [address] [place] [id number] Anahy Grayson MD [address] [place], [place] [phone] Scheduled Procedures Name Priority Associated Diagnoses Date/Ti me COLONOSCOPY FLEXIBLE PROXIMAL DIAGNOSTIC Recall Colon cancer screening Health Maintenance Due Date Last Done Comments DISCUSS TOBACCO CESSATION (REFER TO SMARTSET #2705) 1965 COVID-19 Vaccine (#1) 02/09/1969 Alpha-1 Antitrypsin [...] or PCV20) 02/11/2025 02/12/2020, 03/21/2019 Diabetes Screening 07/18/2026 07/18/2023, 1 05/28/2022, 11/16/2022, Additional history exists Colonoscopy 07/24/2027 07/24/2017, 07/24/2017 Colorectal Cancer Screening 07/24/2027 Lipid Panel 08/29/2027 08/28/2022, 07/26, 06/06/2021, Additional history exists DTaP,Tdap,and Td Vaccines (2 - Td or Tdap) 02/11/2030 02/12/2020, 03/28/2007 Hepatitis B Completed 05/27/2019, 09/25, 08/26/2018 VITAMIN D LEVEL ONCE IN A LIFETIME-USE SMARTSET# 01011 Completed 08/01/2023, 08/04/2021 GARDASIL-HPV IMMUNIZATION SERIES Aged [...] >19 ng/mL 08/02/2023 3:57 AM EST LABORATORY [facility] Blood Venous blood specimen / Unknown Venipuncture / Unknown 08/01/2023 11:32 AM EST 08/01/2023 11:32 AM EST Narrative LABORATORY C - 08/02/2023 3:57 AM EST Deficient: <20 ng/mL Insufficient: 20-29 ng/mL Recommended/Optimum:30-50 ng/mL Vitamin D intoxication is rare. If suspicious of Vitamin D toxicity, evaluation of serum Calcium and PTH is recommended. Kita Gaston MD LAB BLOOD ORDERABLE S Performing Organization Address [facility] de Phone Number LABORATORY [address] [address] * (ABNORMAL) PTH (08/01/2023 11:32 AM EST) PTH 115(H) 15 - 65 pg/mL 08/02/2023 3:57 AM EST LABORATORY [facility] Blood Venous blood specimen / Unknown Venipuncture / Unknown 08/01/2023 11:32 AM EST 08/01/2023 11:32 AM EST Kita Gaston MD LAB BLOOD ORDERABLE S Performing Organization Address City/[facility] de Phone Number LABORATORY [facility] [address] [place] [address] documented in this encounter Visit Diagnoses Diagnosis Rheumatoid arthritis involving multiple sites with positive rheumatoid factor (HCC)- Primary Age-related nuclear cataract, bilateral Senile nuclear sclerosis Steroid-induced osteoporosis Other osteoporosis documented in this encounter Care Teams Hand Bunch Maker Relationship Specialty Start Date End Date Anahy Grayson MD [address] [place] [id number] PCP - General Internal Medicine 01/27/22 documented as of this encounter
--- OUTSIDE RECORDS SUMMARY | 2023-08-13 00:09 | External Medical Summary | Summary of Care ---
Author Name Unknown Organization [facility] Address [address] [place] [address] Phone [phone] Care Team Providers Care Supervisor Cell Maintenance Name Role Phone Anahy Grayson MD Primary Care Provider [phone] Reason for Visit * Reason Onset Date Comments [facility]: Maintenance 08/06/2023 Encounter Details Date Type Department Care Team (Late st Contact Info) Description 08/06/2023 Telephone [facility], [facility] [address] [facility] [place] [address] [facility], Nurse [facility] [address] [facility] [place] [address] [facility]: Maintenance Allergies No known active allergiesdocumented as of this encounter (statuses as of 08/06/2023) Medications Medication Sig Dispensed Refills Start Date End Date Status Aspirin 81 MG Oral Tablet Delayed Release Take 1 Tablet by mouth in the morning. 0 Active Spiriva Respimat 2.5 MCG/ACT Inhalation Aerosol Solution (Tiotropium [place] Monohydrate) Inhale by mouth 2 Puffs in [...] Oral Tablet (Crestor)Indications :Coronary artery disease involving [place] coronary artery of [place] heart without angina pectoris,HFrEF (heart failure with reduced ejection fraction) ([facility]),HTN, goal below 140/90,Dyslipidemia, goal LDL below [...] Active Sarilumab 200 MG/1.14ML Subcutaneous Solution Auto-injector (FanXTzaTumblr)Indications :Rheumatoid arthritis involving multiple sites with positive rheumatoid factor ([facility]) Inject 1.14 mL under the skin every 14 days. 2.28 mL 11 03/05/2023 Active Omeprazole 40 MG Oral Capsule Delayed Release (PriLOSEC) Take 1 Capsule by mouth in the morning. 1 hour before the first meal of the day.. 90 Capsule 3 03/15/2023 Active Sildenafil Citrate 20 MG Oral Tablet (Revatio)Indications :Raynaud's disease with gangrene ([facility]) TAKE ONE TABLET BY MOUTH EVERY MORNING , 1 TABLET AT NOON AND 2 TABLETS BEFORE BEDTIME 90 Tablet 2 03/30/2023 Active sulfaSALAzine 500 MG Oral Tablet Delayed Release (Azulfidine Entab) Take 1 Tablet by mouth in the morning. 0 Active Jardiance 10 MG Oral Tablet (Empagliflozin)Indic ations:HFrEF (heart failure with reduced ejection fraction) ([facility]) TAKE 1 TABLET BY MOUTH EVERY MORNING 90 Tablet 3 05/08/2023 Active Furosemide 20 MG Oral Tablet (Lasix)Indications:H FrEF (heart failure with reduced ejection fraction) ([facility]) Take 2 Tablets by mouth in the morning. 180 Tablet 3 06/06/2023 Active oxyCODONE-Acetaminop hen 10-325 MG Oral Tablet (Percocet) Take 1 Tablet by mouth every 6 hours as needed for Pain, Severe. Do not start before July 25, 2023. 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 Prednisone, which dose varies based on symptoms. [...] encounter Miscellaneous Notes * Telephone Encounter - Eva Walsh RN - 08/06/2023 7:32 AM EDT [facility] ED [employer] Notification Date: 08/06/2023 Time: 7:[address] [facility] Subprogram: Focused Care Management (3-9 months) [place] Episode Start Date: No linked episodes [facility] Enrollment Status: Currently Enrolled Action Taken on [employer] Alert and Outcome of ED Visit: Review ONLY: Phone Call Follow Up ONLY Scheduled Eva Walsh RN documented in this encounter Plan of Treatment Upcoming Encounters Date Type Department Care Team (Late st Contact Info) Description 08/06/2023 11:30 AM EDT Scheduled Telephone [facility], [facility] [address] [facility] [place] [address] Coordinator, [facility] [address] [facility] [place] [address] 08/08/2023 10:30 AM EDT Office Visit Vascular Surgery, [facility] [address] [facility] [place] [address] Tre Lange MD [address] [place] [address] 08/09/2023 2:30 PM EDT Cardiac Studies Cardiac Studies, [facility] [address] [facility] [place] [address] 08/17/2023 4:00 PM EDT Home Visit [facility], [facility] [address] [facility] [place] [address] Cindy Underwood, RN [address] [place] [address] 08/21/2023 12:30 PM EDT Therapy Neuropsychology [facility] [address] [facility] [place] [address] Logan Morales, PhD [address] [facility] [place] [address] 08/28/2023 9:00 AM EDT Office Visit Rheumatology [place] [address] [employer] [facility] [place] [address] Jimmy Giang MD [facility] [employer] [facility] [place] [address] 09/13/2023 8:40 AM EDT Office Visit Neurology [facility] [address] [facility] [place] [address] Aparna Ruano PAL[employer]C [address] [facility] [place] [address] 09/17/2023 1:40 PM EDT Office Visit [facility] [address] [place] [address] Anahy Grayson MD [address] [place], [place] [phone] Scheduled Procedures Name Priority Associated Diagnoses Date/Ti me COLONOSCOPY FLEXIBLE PROXIMAL DIAGNOSTIC Recall Colon cancer screening Health Maintenance Due Date Last Done Comments DISCUSS TOBACCO CESSATION (REFER TO SMARTSET #3130) 1965 COVID-19 Vaccine (#1) 02/09/1969 Alpha-1 Antitrypsin [...] D LEVEL ONCE IN A LIFETIME-USE SMARTSET# [id number] Completed 08/01/2023, 08/04/2021 GARDASIL-HPV IMMUNIZATION SERIES Aged Out No longer eligible based on patient's age to complete this topic MENINGOCOCCAL (MENACTRA/MENVEO) Aged Out No longer eligible based on patient's age to complete this topic documented as of this encounter Medical Devices Not on filedocumented as of this encounter Care Teams Supervisor Cell Maintenance Relationship Specialty Start Date End Date Anahy Grayson MD [address] [place] [address] PCP - General Internal Medicine 01/27/22 documented as of this encounter
--- OUTSIDE RECORDS SUMMARY | 2023-08-13 00:09 | External Medical Summary | Summary of Care ---
Author Name Unknown Organization [facility] Address [address] [place] [address] Phone [phone] Care Team Providers Care Facing Baster Name Role Phone Anahy Grayson MD Primary Care Provider [phone] Reason for Visit * Reason Comments Psychological Evaluation * Auth/Cert Specialty Diagnoses / Procedures Referred By Jose tidwell Referred To Contact [facility] [address] [place] [address] Phone: [phone] Emergency Medicine [address] [address] Referral ID Status Reason Start Date Expiration Date Visits Re quested Visits Authorized [id number] Encounter Details Date Type Department Care Team (Late st Contact Info) Description 08/05/2023 2:17 PM EDT - 08/05/2023 5:00 PM EDT Emergency [facility] Emergency Department ([facility]) [facility] [place] [address] Alli Olguin MD [address] [place] [address] Irritability (Primary Dx); Atrial fibrillation (HCC); History of depression Discharge Disposition: Home - Self Care Allergies No known active allergiesdocumented as of this encounter (statuses as of 08/06/2023) Medications Medication Sig Dispensed Refills Start Date End Date Status Aspirin 81 MG Oral Tablet Delayed Release Take 1 Tablet by mouth in the morning. 0 Active Spiriva Respimat 2.5 MCG/ACT Inhalation Aerosol Solution (Tiotropium [place] Monohydrate) Inhale by mouth 2 Puffs in [...] (Crestor)Indicati ons:Coronary artery disease involving [place] coronary artery of [place] heart without angina pectoris,HFrEF (heart failure with [...] Oral Tablet (Revatio)Indicati ons:Raynaud's disease with gangrene ([facility]) TAKE ONE TABLET BY MOUTH EVERY MORNING , 1 TABLET AT NOON AND 2 TABLETS BEFORE BEDTIME 90 Tablet 2 03/30/2023 Active sulfaSALAzine 500 MG Oral Tablet Delayed Release (Azulfidine Entab) Take 1 Tablet by mouth in the morning. 0 Active Jardiance 10 MG Oral Tablet (Empagliflozin)In dications:HFrEF (heart failure with reduced ejection fraction) ([facility]) TAKE 1 TABLET BY MOUTH EVERY MORNING 90 Tablet 3 05/08/2023 Active Furosemide 20 MG Oral Tablet (Lasix)Indication s:HFrEF (heart failure with reduced ejection fraction) ([facility]) Take 2 Tablets by mouth in [...] the morning. 30 Tablet 0 08/05/2023 Active DULoxetine HCl 30 MG Oral Capsule Delayed Release Particles (Cymbalta) Take 1 Capsule by mouth in the morning. Do not cut, crush or chew. 30 Capsule 5 12/15/2022 4 Discontinued documented as of this encounter [...] dose Rx Exacerbation plan o Chest Xray custodial systemic steroid user 06/23/2022 Scoliosis 06/23/2022 SVT [...] factor 03/07/2018 Last Assessment & Plan: On Monroezara. Prednisone, which dose varies based on symptoms. [...] Passive Smoke Exposure: Past Smokeless Tobacco: Never Tobacco Cessation:Ready to Q uit: Not Asked; Counseling Given: Not Answered Alcohol Use Standard Drinks/Week Comments Not Currently [...] Sign Reading Time Taken Comments Blood Pressure 100/74 08/05/2023 5:00 PM EDT Pulse 82 08/05/2023 5:00 PM EDT Temperature 37.1 C (98.8 F) 08/05/2023 5:00 PM ED T Respiratory Rate 16 08/05/2023 5:00 PM EDT Oxygen Saturation 98% 08/05/2023 5:00 PM EDT Inhaled Oxygen Concentration - - Weight - - Height - - Body Mass Index - - documented in this encounter Discharge Instructions * Discharge Instructions* Rojelio Olguin Jr., PA-C - 08/05/2023 4:51 PM EDT You were seen and evaluated for irritability, mood swings. Please follow the instructions below: As we discussed, your laboratory studies, EKG, chest x-ray are all very reassuring. Based on your discussion with Psychiatry and recommendations from them, I am sending you a prescription for Lexapro 10 mg once a day. Please take this medication as prescribed and follow up with the primary care provider as soon as possible so that they may manage this medicine from an outpatient standard. Please do not hesitate to return to the emergency department for any thoughts of harming yourself or others or any other emergently concerning symptoms Please read the instructions below regarding your care: Please call and/or follow up with your Primary Care Physician (PCP) in the next 5-7 day(s) with additional concerns. If you do not have a Primary Care Physician, you may call [facility] appointments at [phone] or [phone]. Return to the Emergency Department or seek medical attention if you notice any change or worsening of your condition or any of the following problems: Any other emergently concerning such as documented in this encounter ED Notes * Britany Verma, RN - 08/05/2023 2:18 PM EDT Pt states his girlfriend thinks he needs an eval due to being more irritable lately, police and CYSinvolved at home yesterday and pt states he told the police he would come today for a psych eval. Pt also complaining of pain in R) big toe. Pt has significant cardiac history. documented in this encounter Miscellaneous Notes * Pt Handout (on AVS) - [place], Rojelio Dominguez PA-C - 08/05/2023 4:48 PM EDT [id number] Depression Depression is a very common mental health problem. It's not just a state of being unhappy or sad. It's a true disease. The cause seems to be linked to a change in chemicals that send signals in the brain. These things increase a person?s risk of depression: A family history of depression, alcoholism, or suicide Chronic illness Chronic pain Migraine headaches High emotional stress Depression may be easier to see in others. You may have a hard time seeing it in yourself. It can show in many physical and emotional ways. These include: Loss of appetite Overeating Not being able to sleep Sleeping too much A lot of tiredness not linked to physical activity Restlessness or irritability Slowness of movement or speech Feeling sad or withdrawn Loss of interest in things you once enjoyed Trouble concentrating, remembering, or making decisions Thoughts of harming or killing yourself, or thoughts that life is not worth living Low self-esteem The treatment for depression may include both medicine and psychotherapy. Antidepressants can ease symptoms. They can also make it easier for you to do daily tasks. Therapy can offer emotional support. It can also help you understand things that may be causing the depression. Home care Ongoing care and support help people manage this disease. Find a healthcare provider and therapist who meet your needs. Get help when you feel like you may be getting ill. Be kind to yourself. Make it a point to do things that you enjoy. This may be gardening, walkingin nature, or going to a movie. Reward yourself for small successes. Take care of your body. Eat a balanced diet. Eat foods low in saturated fat. Eat a lot of fruitsand vegetables. Exercise at least 3 times a week for 30 minutes. Even mild to moderate exercise like brisk walking can make you feel better. Take medicine as prescribed. Don't stop your medicine or change the dose unless you talk with your healthcare provider. Once you start medicine, expect your symptoms to get better slowly. Depression will lift over time. It doesn't get better right away. Ask your healthcare provider how long it will take for a medicine to start working. Don't share your medicine. Don?t use someone else's medicine. Tell your healthcare providers all the medicines you take. This includes prescription and [id number]-[id number] medicines. It includes vitamins and herbal supplements. Some supplements can interact with medicines. They can cause dangerous side effects. Ask your pharmacist about medicine interactions when you have questions. Don't make major decisions until you feel better. This includes things such as a job change, a divorce, or a marriage. Don't drink alcohol. It can make depression worse. Talk with your family and trusted friends about your feelings and thoughts. Ask them to help younotice behavior changes early. You can then get help and, if needed, your medicine can be changed. Talk with your healthcare provider if you are not getting better. They may change your medicine or have you try another treatment. Follow-up care Follow up with your healthcare provider as advised. Crisis care Call 988 if you have thoughts of harming yourself or others. When you call or text [phone], you will beconnected to trained crisis counselors. An online chat option is also available. [employer] is free and available 18/12. 988 counselors will work with 911 to help you get the care you need. Call 911 if you: Have trouble breathing Are very confused Feel very drowsy or have trouble awakening Faint Have new chest pain that becomes more severe, lasts longer, or spreads into your shoulder, arm, neck, jaw, or back When to get medical care Call your healthcare provider right away if any of these happen: Your symptoms get worse You have extreme depression, fear, anxiety, or anger toward yourself or others You feel out of control You feel that you may try to harm yourself or another You hear voices other people don't hear You see things other people don't see You don't sleep or eat for 3 days in a row Friends or family express concern over your behavior and ask you to get help Last Reviewed Date: 08/26/202119990364-9891 [employer]. All rights reserved. This information is not intended as a substitute for professional medical care. Always follow your healthcare professional's instructions. documented in this encounter Plan of Treatment Upcoming Encounters Date Type Department Care Team (Late st Contact Info) Description 08/08/2023 10:30 AM EDT Office Visit Vascular Surgery, [facility] [address] [place] [address] Tre Lange MD [address] [place] [address] 08/09/2023 2:30 PM EDT Cardiac Studies Cardiac Studies, [facility] [address] [facility] [place] [address] 08/17/2023 4:00 PM EDT Home Visit [facility] Home, [facility] [address] [facility] [place] [address] Cindy Underwood, RN [address] [place] [address] 08/21/2023 12:30 PM EDT Therapy Neuropsychology [facility] [address] [place] [address] Logan Morales, PhD [address] [facility] [place] [address] 08/28/2023 9:00 AM EDT Office Visit Rheumatology [place] [address] [employer] [facility] [place] [address] Jimmy Giang MD [facility] [employer] [place] [address] 09/13/2023 8:40 AM EDT Office Visit Neurology [facility] [address] [facility] [place] [address] Aparna Ruano PA-C [address] [facility] [place] [address] 09/17/2023 1:40 PM EDT Office Visit [facility] [address] [place] [address] Anahy Grayson MD [address] [place] [address] Scheduled Orders Name Type Priority Associated Diagnoses Orde r Schedule EKG EKG STAT Atrial fibrillation (HCC) One Time for 1 Occurrences starting 08/05/2023 until 08/05/2023 Scheduled Procedures Name Priority Associated Diagnoses Date/Ti me COLONOSCOPY FLEXIBLE PROXIMAL DIAGNOSTIC Recall Colon cancer screening Health Maintenance Due Date Last Done Comments DISCUSS TOBACCO CESSATION (REFER TO SMARTSET #4606) 1965 COVID-19 Vaccine (#1) 02/09/1969 Alpha-1 Antitrypsin [...] D LEVEL ONCE IN A LIFETIME-USE SMARTSET# 69331 Completed 08/01/2023, 08/04/2021 GARDASIL-HPV IMMUNIZATION SERIES Aged Out No longer eligible based on patient's age to complete this topic MENINGOCOCCAL (MENACTRA/MENVEO) Aged Out No longer eligible based on patient's age to complete this topic documented as of this encounter Medical Devices Not on filedocumented as of this encounter Procedures Procedure Name Priority Date/Time Associated Diagnosis Comments XR CHEST 1 VIEW STAT 08/05/2023 3:01 PM EDT DIFFERENTIAL, AUTOMATED STAT 08/05/2023 2:59 PM EDT TROPONIN T, HIGH SENSITIVITY STAT 08/05/2023 2:59 PM EDT BNP (NT-PROBNP) STAT 08/05/2023 2:59 PM EDT COMPREHENSIVE METABOLIC PANEL STAT 08/05/2023 2:59 PM EDT CBC STAT 08/05/2023 2:59 PM EDT ETHANOL, MEDICAL STAT 08/05/2023 2:59 PM EDT CBC STAT 08/05/2023 2:59 PM EDT INFLUENZA A/B RSV SARS-COV2,PCR STAT 08/05/2023 2:58 PM EDT documented in this encounter Results * XR CHEST 1 VIEW (08/05/2023 3:01 PM EDT) Anatomical Region Laterality Modality Chest Computed Radiogr aphy 08/05/2023 3:01 PM EDT Impressions 08/05/2023 3:36 PM EDT IMPRESSION: Cardiomegaly. Question mild chronic pulmonary edema. No focal consolidation. THIS DOCUMENT HAS BEEN ELECTRONICALLY SIGNED BY MACRINA FLETCHER MD Narrative 08/05/2023 3:36 PM EDT PROCEDURE INFORMATION: Exam: XR Chest Exam date and time: 08/05/2023 3:01 PM Age: 58 years old Clinical indication: Other: Cardiac eval; Additional info: Cardic eval TECHNIQUE: Imaging protocol: Radiologic exam of the chest. Views: 1 view. COMPARISON: CTA CHEST(Adult) 08/02/2023 9:27 AM FINDINGS: Lungs: No definite air bronchograms identified. Nonspecific coarsening of pulmonary parenchyma present. Pleural spaces: Unremarkable. No pleural effusion. No pneumothorax. Heart/Mediastinum: There is mild cardiomegaly. Bones/joints: Unremarkable. Procedure Note Macrina Fletcher MD - 08/05/2023 PROCEDURE INFORMATION: Exam: XR Chest Exam date and time: 08/05/2023 3:01 PM Age: 58 years old Clinical indication: Other: Cardiac eval; Additional info: Cardic eval TECHNIQUE: Imaging protocol: Radiologic exam of the chest. Views: 1 view. COMPARISON: CTA CHEST(Adult) 08/02/2023 9:27 AM FINDINGS: Lungs: No definite air bronchograms identified. Nonspecific coarsening of pulmonary parenchyma present. Pleural spaces: Unremarkable. No pleural effusion. No pneumothorax. Heart/Mediastinum: There is mild cardiomegaly. Bones/joints: Unremarkable. IMPRESSION IMPRESSION: Cardiomegaly. Question mild chronic pulmonary edema. No focalconsolidation. THIS DOCUMENT HAS BEEN ELECTRONICALLY SIGNED BY MACRINA FLETCHER MD Rojelio Olguin Jr., [facility] ([facility]) * (ABNORMAL) BNP, NT-PRO (08/05/2023 2:59 PM EDT) BNP, NT-Pro 2,560(H) <300 pg/mL 08/05/2023 3:33 PM EDT LABORATORY [facility] Blood Venous blood specimen / Unknown Venipuncture / Unknown 08/05/2023 2:59 PM EDT 08/05/2023 3:04 PM EDT Narrative LABORATORY [facility] - 08/05/2023 3:33 PM EDT Exclude Heart Failure: <300 pg/mL Diagnose Heart Failure: Age <50 yr: >450 pg/mL 50-75 yr: >900 pg/mL >75 yr: >1800 pg/mL GFR is 30-59 mL/min: >1200 pg/mL or Age-adjusted values GFR <30 mL/min: do not use, not reliable Prognostic threshold: 1000 pg/mL Rojelio Olguin Jr., PA-C LAB BLOOD ORDERABLES LABORATORY [facility] [address] [place] [address] * (ABNORMAL) DIFFERENTIAL, AUTOMATED (08/05/2023 2:59 PM EDT) [facility] WBC 10.19 4.00 - 10.80 K/uL 08/05/2023 3:07 PM EDT LABORATORY [facility] Neutrophils % 79.2(H) 40.0 - 75.0 % 08/05/2023 3:07 PM EDT LABORATORY [facility] Lymphocytes % 10.6(L) 18.0 - 42.0 % 08/05/2023 3:07 PM EDT LABORATORY [facility] Monocytes % 8.5 1.0 - 11.0 % 08/05/2023 3:07 PM EDT LABORATORY [facility] Eosinophils % 1.4 0.0 - 6.0 % 08/05/2023 3:07 PM EDT LABORATORY [facility] Basophils % 0.3 0.0 - 2.0 % 08/05/2023 3:07 PM EDT LABORATORY [facility] Absolute Neutrophils 8.07(H) 1.80 - 7.70 K/uL 08/05/2023 3:07 PM EDT LABORATORY [facility] Absolute Lymphocytes 1.08 1.00 - 4.80 K/ul 08/05/2023 3:07 PM EDT LABORATORY [facility] Absolute Monocytes 0.87 0.00 - 1.10 K/uL 08/05/2023 3:07 PM EDT LABORATORY [facility] Absolute Eosinophils 0.14 0.00 - 0.70 K/uL 08/05/2023 3:07 PM EDT LABORATORY [facility] Absolute Basophils 0.03 0.00 - 0.20 K/uL 08/05/2023 3:07 PM EDT LAB[facility]ATORY [facility] Blood Venous blood specimen / Unknown Venipuncture / Unknown 08/05/2023 2:59 PM EDT 08/05/2023 3:04 PM EDT Rojelio Olguin Jr., PA-C LAB BLOOD ORDERABLES Performing Organization Address City/State/[place] Co de Phone Number LABORATORY [address] [address] * (ABNORMAL) CBC (08/05/2023 2:59 PM EDT) WBC 10.19 4.00 - 10.80 K/uL 08/05/2023 3:07 PM EDT LABORATORY [facility] RBC 5.74 4.50 - 5.25 M/uL 08/05/2023 3:07 PM EDT LABORATORY [facility] HGB 16.6 14.0 - 16.8 g/dL 08/05/2023 3:07 PM EDT LABORATORY [facility] HCT 52.0(H) 40.0 - 48.4 % 08/05/2023 3:07 PM EDT LABORATORY [facility] MCV 90.6 82.0 - 99.5 fL 08/05/2023 3:07 PM EDT LAB[facility]ATORY [facility] MCH 28.9 27.0 - 34.0 pg 08/05/2023 3:07 PM EDT LABORATORY [facility] MCHC 31.9 32.0 - 36.0 g/dL 08/05/2023 3:07 PM EDT LABORATORY [facility] RDW 19.4 11.5 - 15.5 % 08/05/2023 3:07 PM EDT LABORATORY [facility] PLT 227 140 - 400 K/uL 08/05/2023 3:07 PM EDT LABORATORY [facility] MPV 10.7 6.6 - 11.1 fL 08/05/2023 3:07 PM EDT LABORATORY [facility] Blood Venous blood specimen / Unknown Venipuncture / Unknown 08/05/2023 2:59 PM EDT 08/05/2023 3:04 PM EDT Rojelio Olguin Jr., PA-C LAB BLOOD ORDERABLES Performing Organization Address [facility]/ZIP Co de Phone Number LABORATORY [address] [address] * (ABNORMAL) TROPONIN T, HIGH SENSITIVITY (08/05/2023 2:59 PM EDT) [facility] Troponin T, High Sensitivity 29(H) <=22 ng/L 08/05/2023 3:31 PM EDT LABORATORY [facility] Blood Venous blood specimen / Unknown Venipuncture / Unknown 08/05/2023 2:59 PM EDT 08/05/2023 3:04 PM EDT Rojelio Olguin Jr., PA-C LAB BLOOD ORDERABLES Performing Organization Address [facility]/[place] Co de Phone Number LABORATORY [address] [address] * ETHANOL, MEDICAL (08/05/2023 2:59 PM EDT) [facility] ETHANOL, MEDICAL Negative Negative 08/05/2023 3:29 PM EDT LABORATORY [facility] Blood Venous blood specimen / Unknown Venipuncture / Unknown 08/05/2023 2:59 PM EDT 08/05/2023 3:04 PM EDT Rojelio Olguin Jr., PA-C LAB BLOOD ORDERABLES Performing Organization Address [facility]/[place] Co de Phone Number LABORATORY [address] [phone] * (ABNORMAL) COMPREHENSIVE METABOLIC PANEL (08/05/2023 2:59 PM EDT) [facility] BUN 20 6 - 20 mg/dL 08/05/2023 3:29 PM EDT LABORATORY [facility] Creatinine 1.3(H) 0.6 - 1.2 mg/dL 08/05/2023 3:29 PM EDT LABORATORY [facility] Estimated Glomerular Filtration Rate 62 >=60 mL/min 08/05/2023 3:29 PM EDT LABORATORY [facility] Comment:eGFR is calculated b ased on the CKD-EPI 2020 equation Sodium 136 135 - 146 mmol/L 08/05/2023 3:29 PM EDT LABORATORY [facility] Potassium 4.4 3.5 - 5.1 mmol/L 08/05/2023 3:29 PM EDT LABORATORY [facility] Chloride 99 98 - 107 mmol/L 08/05/2023 3:29 PM EDT LABORATORY [facility] CO2 25 22 - 32 mmol/L 08/05/2023 3:29 PM EDT LABORATORY [facility] Anion Gap 12 7 - 15 mmol/L 08/05/2023 3:29 PM EDT LAB[facility]ATORY [facility] Glucose 140(H) 70 - 120 mg/dL 08/05/2023 3:29 PM EDT LABORATORY [facility] Albumin 4.3 3.8 - 5.0 g/dL 08/05/2023 3:29 PM EDT LABORATORY [facility] AST 25 10 - 50 U/L 08/05/2023 3:29 PM EDT LABORATORY [facility] Alkaline Phosphatase 89 35 - 130 U/L 08/05/2023 3:29 PM EDT LABORATORY [facility] Bilirubin, Total 0.4 <=1.2 mg/dL 08/05/2023 3:29 PM EDT LABORATORY [facility] Calcium 10.1 8.4 - 10.2 mg/dL 08/05/2023 3:29 PM EDT LAB[facility]ATORY [facility] Protein 7.3 6.0 - 8.3 g/dL 08/05/2023 3:29 PM EDT LABORATORY [facility] ALT 24 10 - 50 U/L 08/05/2023 3:29 PM EDT LABORATORY [facility] Blood Venous blood specimen / Unknown Venipuncture / Unknown 08/05/2023 2:59 PM EDT 08/05/2023 3:04 PM EDT Rojelio Olguin Jr. PALex[employer]C LAB BLOOD ORDERABLES LABORATORY [place] [id number] [place] [address] * INFLUENZA A/B RSV SARS-COV2,PCR (08/05/2023 2:58 PM EDT) SARS-CoV-2 (COVID-19) Result Negative Negative 08/05/2023 3:55 PM EDT LABORATORY [facility] Comment: No SARS-CoV2 Coronavirus RNA detected by PCR (amplified probe). This express test was developed and its performance characteristics determined by [facility]. It has not been cleared or approved by the U.S. Food and Drug Administration (FDA). FDA does not require this test to go thru premarket FDA review. This test is used for clinical purposes. It should not be regarded as investigational or for research. This laboratory is certified under the Clinical Laboratory Improvement Amendments (CLIA) as qualified to perform high complexity clinical laboratory testing. This test is a nucleic acid amplification test (NAAT), a reverse transcriptase polymerase chain reaction (RT-PCR) test, or a Centers for Disease Control- acceptable equivalent. The test is performed in a high complexity Clinical Laboratory Improvement Amendments-(CLIA) certified laboratory. The test is acceptable for SARS-CoV-2 diagnosis, surveillance, and travel within the [place] and to most countries. Please check with local testing authorities about requirements before travel. The validation of bronchial specimens, tracheal aspirates, and sputum for this assay was developed and performance characteristics determined by [facility]. The validation of alternate specimen types has not been cleared or approved by the U.S. Food and Drug Administration (FDA). It has been determined that such clearance is not necessary. Influenza A PCR Result Negative Negative 08/05/2023 3:55 PM EDT LABORATORY [facility] Comment:No Influenza A RNA d etected by PCR (amplified probe) Influenza B PCR Result Negative Negative 08/05/2023 3:55 PM EDT LABORATORY [facility] Comment:No Influenza B RNA d etected by PCR (amplified probe) RSV PCR Result Negative Negative 08/05/2023 3:55 PM EDT LABORATORY [facility] Comment:No Respiratory Syncy tial Virus RNA detected by PCR (amplified probe) Upper Respiratory Mid-turbinate nasal swab / Unknown Non-blood Collection / Unknown 08/05/2023 2:58 PM EDT 08/05/2023 3:04 PM EDT Rojelio Olguin Jr., PA-C LAB MICRO - GENERAL ORDERABLES LABORATORY [address] [address] documented in this encounter Visit Diagnoses Diagnosis Irritability- Primary Atrial fibrillation (HCC) Atrial fibrillation History of depression Personal history of other mental disorder Moderate episode of recurrent major depressive disorder (HCC) documented in this encounter Administered Medications Inactive Administered Medications - up to 3 most recent administrations Medication Order MAR Action Action Date Dose Rate Site fentaNYL (PF) inj 50 mcg 50 mcg, Intravenous, ONCE, On 08/05/23 at 1545, For 1 dose, When given IV Push its recommended that the dose be given over 3 to 5 minutes. Given 08/05/2023 3:14 PM EDT 50 mcg NSS 0.9% 500 mL bolus infusion Intravenous, at 500 mL/hr Administer over 60 Minutes, Wide open, This infusion may be completed in less than 1 hour, since it will be a wide open rate, ONCE, 1 dose, On 08/05/23 at 1530 New Bag 08/05/2023 3:02 PM EDT 500 mL 500 mL/hr ondansetron (Zofran) inj 4 mg 4 mg, IV Push, ONCE, On 08/05/23 at 1545, For 1 dose Given 08/05/2023 3:11 PM EDT 4 mg documented in this encounter Active and Recently Administered Medications Due to Daylight Saving Time, this section may contain times in both EST and EDT. Scheduled Medication Order 08/03/2023 08/04/2023 08/05/2023 fentaNYL (PF) inj 50 mcg (COMPLETED) 50 mcg, Intravenous, ONCE, On 08/05/23 at 1545, For 1 dose, When given IV Push its recommended that the dose be given over 3 to 5 minutes. 1514 (Given - Provid er: Britany Verma RN) NSS 0.9% 500 mL bolus infusion (COMPLETED) Intravenous, at 500 mL/hr Administer over 60 Minutes, Wide open, This infusion may be completed in less than 1 hour, since it will be a wide open rate, ONCE, 1 dose, On 08/05/23 at 1530 1502 (New Bag - Prov ider: Britany Verma RN)1555 (Stopped - Provider: Britany Verma RN) ondansetron (Zofran) inj 4 mg (COMPLETED) 4 mg, IV Push, ONCE, On 08/05/23 at 1545, For 1 dose 1511 (Given - Provid er: Britany Verma RN) documented in this encounter Care Teams Facing Baster Relationship Specialty Start Date End Date Anahy Grayson MD [address] [place] [address] PCP - General Internal Medicine 01/27/22 documented as of this encounter
--- OUTSIDE RECORDS SUMMARY | 2023-08-13 00:09 | External Medical Summary | Summary of Care ---
Author Name Unknown Organization [facility] Address [address] [place] [address] Phone [phone] Care Team Providers Care Laminator Hand Name Role Phone Anahy Grayson MD Primary Care Provider [phone] Reason for Visit * Reason Onset Date Comments Advice 08/03/2023 Encounter Details Date Type Department Care Team (Late st Contact Info) Description 08/03/2023 Telephone Cardiology Yisel Ruggiero [address] [place] [address] Aparna Espinal DO [address] [place] [id number] Advice Allergies No known active allergiesdocumented as of this encounter (statuses as of 08/06/2023) Medications Medication Sig Dispensed Refills Start Date End Date Status Aspirin 81 MG Oral Tablet Delayed Release Take 1 Tablet by mouth in the morning. 0 Active Spiriva Respimat 2.5 MCG/ACT Inhalation Aerosol Solution (Tiotropium [place] Monohydrate) Inhale by mouth 2 Puffs in [...] Oral Tablet (Crestor)Indications :Coronary artery disease involving ruby coronary artery of ruby heart without angina pectoris,HFrEF (heart failure with reduced ejection fraction) ([facility]),HTN, goal below 140/90,Dyslipidemia, goal LDL [...] Active Sarilumab 200 MG/1.14ML Subcutaneous Solution Auto-injector ([employer] Cancion)Indications :Rheumatoid arthritis involving multiple sites with positive rheumatoid factor ([facility]) Inject 1.14 mL under the skin every 14 days. 2.28 mL 11 03/05/2023 Active Omeprazole 40 MG Oral Capsule Delayed Release (PriLOSEC) Take 1 Capsule by mouth in the morning. 1 hour before the first meal of the day.. 90 Capsule 3 03/15/2023 Active Sildenafil Citrate 20 MG Oral Tablet (Revatio)Indications :Raynaud's disease with gangrene ([facility]) TAKE ONE TABLET BY MOUTH EVERY MORNING , 1 TABLET AT NOON AND 2 TABLETS BEFORE BEDTIME 90 Tablet 2 03/30/2023 Active sulfaSALAzine 500 MG Oral Tablet Delayed Release (Azulfidine Entab) Take 1 Tablet by mouth in the morning. 0 Active Jardiance 10 MG Oral Tablet (Empagliflozin)Indic ations:HFrEF (heart failure with reduced ejection fraction) ([facility]) TAKE 1 TABLET BY MOUTH EVERY MORNING 90 Tablet 3 05/08/2023 Active Furosemide 20 MG Oral Tablet (Lasix)Indications:H FrEF (heart failure with reduced ejection fraction) ([facility]) Take 2 Tablets by mouth [...] sites with positive rheumatoid factor ([facility]) TAKE 1 TO 2 TABLETS BY MOUTH ONCE DAILY FOR RHEUMATOID ARTHRITIS 60 Tablet 5 08/01/2023 Active documented as of this encounter (statuses as of 08/06/2023) Active Problems Problem Noted Date Diagnosed Date Moderate episode of recurrent major depressive d isorder 08/05/2023 Small vessel disease 08/01/2023 Food insecurity 01/08/2023 Overview: Per [facility] Protocol Senile osteoporosis 01/04/2023 Lung [...] encounter Miscellaneous Notes * Telephone Encounter - Boris Farrell LPN - 08/06/2023 10:52 AM EDT Sent patient a [email or web address] message to make aware. * Telephone Encounter - Guillermo Luque DO - 08/05/2023 6:20 PM EDT The aortic root is mildly enlarged and unchanged when compared to echocardiogram from September of 2022. Repeat echocardiogram can be performed in 1 year for surveillance. Trileaflet aortic valve is a normal finding. * Telephone Encounter - Charito Mcdaniel OSA - 08/03/2023 1:49 PM EST Person calling: Hayley Relationship to patient: significant Number to return call: [phone] Reason for call: CTA results Pharmacy: Provider Name:Dr. Espinal/Dr. Rebel Hardy is calling in regards to results from CTA of the chest. Trileaflet aortic valve without annular calcifications. Ectasia of the aortic root measuring up to 41 mm. Three vessel aortic arch. Hayley is very worried with these results and would like to know from a cardiology stand point where to go from her. Hayley had asked for a return call if the home phone is not answered please callcell phone as well. Please advise Thank you DAYAN Lozano documented in this encounter Plan of Treatment Upcoming Encounters Date Type Department Care Team (Late st Contact Info) Description 08/06/2023 11:30 AM EDT Scheduled Telephone [facility] [address] [facility] [place] [address] Coordinator, [facility] [address] [facility] [place] [address] 08/08/2023 10:30 AM EDT Office Visit Vascular Surgery, [facility] [address] [facility] [place] [address] Tre Lange MD [address] [place] [address] 08/09/2023 2:30 PM EDT Cardiac Studies Cardiac Studies, [facility] [address] [facility] [place] [address] 08/17/2023 4:00 PM EDT Home Visit [facility] [address] [facility] [place] [address] Cindy Underwood RN [address] [facility] [place] [address] 08/21/2023 12:30 PM EDT Therapy Neuropsychology [place] [place] [address] [place] [address] Logan Morales, PhD [address] [facility] [place] [address] 08/28/2023 9:00 AM EDT Office Visit Rheumatology [place] [address] [email or web address] [place] [address] Jimmy Giang MD [facility] [employer] [place] [address] 09/13/2023 8:40 AM EDT Office Visit Neurology [facility] [address] [facility] [place] [address] Aparna Ruano PA-C [address] [facility] [place] [address] 09/17/2023 1:40 PM EDT Office Visit [facility] [address] [place] [phone] Anahy Grayson MD [address] [place] [address] Scheduled Procedures Name Priority Associated Diagnoses Date/Ti me COLONOSCOPY FLEXIBLE PROXIMAL DIAGNOSTIC Recall Colon cancer screening Health Maintenance Due Date Last Done Comments DISCUSS TOBACCO CESSATION (REFER TO SMARTSET #0233) 1965 COVID-19 Vaccine (#1) 02/09/1969 Alpha-1 Antitrypsin [...] D LEVEL ONCE IN A LIFETIME-USE SMARTSET# 58853 Completed 08/01/2023, 08/04/2021 GARDASIL-HPV IMMUNIZATION SERIES Aged Out No longer eligible based on patient's age to complete this topic MENINGOCOCCAL (MENACTRA/MENVEO) Aged Out No longer eligible based on patient's age to complete this topic documented as of this encounter Medical Devices Not on filedocumented as of this encounter Care Teams Laminator Hand Relationship Specialty Start Date End Date Anahy Grayson MD [address] [place] [facility] [place] [address] PCP - General Internal Medicine 01/27/22 documented as of this encounter
--- OUTSIDE RECORDS SUMMARY | 2023-08-13 00:09 | External Medical Summary ---
Author Name Unknown Address Unknown Organization K1G:LABORATORY [facility] - [address] [place] [address] Laboratory Report Ordering Provider Test Date Status HENRY COELHO JR 08/05/2023 14:59:49 Final Observation Date Value Abnormality Reference (Units ) Status Ethanol 08/05/2023 14:59:49 Negative Negative Final Performing Location [facility]ORY [facility] - [address] [facility] [address]
--- OUTSIDE RECORDS SUMMARY | 2023-08-13 00:09 | External Medical Summary ---
Author Name Unknown Address Unknown Organization K1G:[facility]AT[facility] - [address] [place] [id number] Laboratory Report Ordering Provider Test Date Status HENRY COELHO JR 08/05/2023 14:59:49 Final Exclude Heart Failure: <300 pg/mL
Diagnose Heart Failure:
Age <50 yr: >450 pg/mL
50-75 yr: >900 pg/mL
>75 yr: >1800 pg/mL
GFR is 30-59 mL/min: >1200 pg/mL or Age- adjusted values
GFR <30 mL/min: do not use, not reliable

Prognostic threshold: 1000 pg/mL Observation Date Value Abnormality Reference (Units ) Status BNP, Pro-hormone 08/05/2023 14:59:49 2560 Above high no rmal <300 (pg/mL) Final Performing Location LABORATORY [facility] - [address] [place] [phone]
--- OUTSIDE RECORDS SUMMARY | 2023-08-13 00:09 | External Medical Summary ---
Author Name Unknown Address Unknown Organization K1G:[facility]ORY [facility] - [facility] [address] Laboratory Report Ordering Provider Test Date Status HENRY COELHO JR 08/05/2023 14:59:49 Final Observation Date Value Abnormality Reference (Units ) Status BUN 08/05/2023 14:59:49 20 6-20 (mg/dL) Final Creatinine 08/05/2023 14:59:49 1.3 Above high normal 0.6-1.2 (mg/dL) Final Glomerular filtration rate/1.73 sq M.predicted [Volume Rate/Area] in Serum, Plasma or Blood by Creatinine-based formula (CKD-EPI) 08/05/2023 14:59:49 62 >=60 (mL/min) Final eGFR is calculated based on the CKD-EPI 2020 equation SODIUM 08/05/2023 14:59:49 136 135-146 (m mol/L) Final Potassium 08/05/2023 14:59:49 4.4 3.5-5.1 (m mol/L) Final Cl 08/05/2023 14:59:49 99 98-107 (mm ol/L) Final CO2 08/05/2023 14:59:49 25 22-32 (mmo l/L) Final Anion gap 08/05/2023 14:59:49 12 7-15 (mmol /L) Final Glucose 08/05/2023 14:59:49 140 Above high normal 70 -120 (mg/dL) Final Albumin 08/05/2023 14:59:49 4.3 3.8-5.0 (g /dL) Final AST (Aspartate aminotransferase) 08/05/2023 14:59:49 25 10-50 (U/L) Fin al Alk Phos 08/05/2023 14:59:49 89 35-130 (U/ L) Final Bilirubin, Total 08/05/2023 14:59:49 0.4 <=1 .2 (mg/dL) Final Calcium 08/05/2023 14:59:49 10.1 8.4-10.2 ( mg/dL) Final Protein 08/05/2023 14:59:49 7.3 6.0-8.3 (g /dL) Final ALT (Alanine aminotransferase) 08/05/2023 14:59:49 24 10-50 (U/L) John tran Performing Location LABORATORY [facility] - [facility]0 [facility] [address]
--- OUTSIDE RECORDS SUMMARY | 2023-08-13 00:09 | External Medical Summary ---
Author Name Unknown Address Unknown Organization K1G:LABORATORY [facility] - [address] [facility] [address] Laboratory Report Ordering Provider Test Date Status HENRY COELHO JR 08/05/2023 14:58:57 Final RAPID SURVEILLANCE Observation Date Value Abnormality Reference (Units ) Status SARS Coronavirus 2 08/05/2023 14:58:57 Negative N egative Final No SARS-CoV2 Coronavirus RNA detected by PCR (amplified probe).
This express test was developed and its performance characteristics determined by [facility]. It has not been cleared or approved [...] (RT-PCR) test, or a Centers for Disease Control-acceptable equivalent. The test is performed in a high complexity Clinical Laboratory Improvement Amendments-(CLIA) certified laboratory. The test is acceptable for SARS-CoV-2 diagnosis, surveillance, and travel within the [place] and to most countries. Please check with local testing authorities about requirements before travel.

The validation of bronchial specimens, tracheal aspirates, and sputum for this assay was developed and performance characteristics determined by [facility]. The validation of alternate specimen types has not been cleared or approved by the U.S. Food and Drug Administration (FDA). It has been determined that such clearance is not necessary. Influenza virus A RNA [Prese nce] in Specimen by PERFECTO with probe detection 08/05/2023 14:58:57 Negative Negative Final No Influenza A RNA detected by PCR (amplified probe) Influenza virus B RNA [Prese nce] in Specimen by PERFECTO with probe detection 08/05/2023 14:58:57 Negative Negative Final No Influenza B RNA detected by PCR (amplified probe) Respiratory syncytial virus RNA [Identifier] in Specimen by PERFECTO with probe detection 08/05/2023 14:58:57 Negative Negative Final No Respiratory Syncytial Vir us RNA detected by PCR (amplified probe) Performing Location LABORATORY [address] [address]
--- OUTSIDE RECORDS SUMMARY | 2023-08-13 00:09 | External Medical Summary | Summary of Care ---
Author Name Unknown Organization [facility] Address [address] [place] [address] Phone [phone] Care Team Providers Care Restaurant Hostess Name Role Phone Anahy Grayson MD Primary Care Provider [phone] Reason for Visit * Reason Onset Date Comments Advice 08/01/2023 Encounter Details Date Type Department Care Team (Late st Contact Info) Description 08/01/2023 Telephone Vascular Surg [facility] [address] [place] [address] Galo Gold MD [address], [place] [id number] Advice Allergies No known active allergiesdocumented as of this encounter (statuses as of 08/02/2023) Medications Medication Sig Dispensed Refills Start Date End Date Status Aspirin 81 MG Oral Tablet Delayed Release Take 1 Tablet by mouth in the morning. 0 Active Spiriva Respimat 2.5 MCG/ACT Inhalation Aerosol Solution (Tiotropium [place] Monohydrate) Inhale by mouth 2 Puffs in [...] Oral Tablet (Crestor)Indicati ons:Coronary artery disease involving [place] coronary artery of [place] heart without angina pectoris,HFrEF (heart failure with [...] 15 minutes 25 Tablet 11 12/15/2022 Active DULoxetine HCl 30 MG Oral [...] sites with positive rheumatoid factor ([facility]) Inject 1.14 mL under the skin [...] failure with reduced ejection fraction) ([facility]) TAKE 1 TABLET BY MOUTH EVERY MORNING 90 Tablet 3 05/08/2023 Active Furosemide 20 MG Oral Tablet (Lasix)Indication s:HFrEF (heart failure with reduced ejection fraction) ([facility]) Take 2 Tablets by mouth in the morning. 180 Tablet 3 06/06/2023 Active oxyCODONE-Acetami nophen 10-325 MG Oral Tablet (Percocet) Take 1 Tablet by mouth every 6 hours as needed for Pain, Severe. Do not start before July 25, 2023. 120 Tablet 0 07/25/2023 Active predniSONE 5 MG Oral Tablet (Deltasone)Indica tions:Rheumatoid arthritis involving multiple sites with positive rheumatoid factor ([facility]) Take one to two tablets by mouth daily for rheumatoid arthritis. 60 Tablet 2 03/05/2023 4 Discontinued documented as of this encounter (statuses as of 08/02/2023) Active Problems Problem Noted Date Diagnosed Date Small vessel disease 08/01/2023 Food insecurity 01/08/2023 Overview: Per [facility] Protocol Senile osteoporosis 01/04/2023 Lung nodules [...] dose Rx Exacerbation plan o Chest Xray FDC systemic steroid user 06/23/2022 Scoliosis 06/23/2022 SVT [...] encounter Miscellaneous Notes * Telephone Encounter - Randall Palencia PA-C - 08/02/2023 7:56 AM EST I called the number below yesterday while driving home from [facility]. Mr. Lange answered the phone. He was not aware of Hayley's (his significant other, not his daughter) concerns and he acknowledged that both Dr. Gold and I reviewed the results of his most recent CTA with him during the appointment I took this opportunity to review the results of the patient's vascular labs (that were done following yesterday's appointment) with the patient Lastly, patient is to have a CTA of chest this morning. I relayed to the patient that I will call him with the results of the CTA later today or tomorrow. * Telephone Encounter - Shady Shannon OSA - 08/01/2023 1:13 PM EST Received a call from patient's daughter Hayley who is upset that we did not go over patient's CT results today when he was seen in [facility]. Please advise. Hayley: [phone] documented in this encounter Plan of Treatment Upcoming Encounters Date Type Department Care Team (Late st Contact Info) Description 08/02/2023 9:15 AM EST Imaging Radiology [facility] [facility] [address] [facility] [place] [address] 08/08/2023 10:30 AM EDT Office Visit Vascular Surgery, [facility] [address] [facility] [place] [address] Tre Lange MD [address] [place] [address] 08/09/2023 2:30 PM EDT Cardiac Studies Card[facility] Studies, [facility] [address] [facility] [place] [address] 08/17/2023 4:00 PM EDT Home Visit [facility] [address] [facility] [place] [address] Cindy Underwood RN [address] [facility] [place] [address] 08/21/2023 12:30 PM EDT Therapy Neuropsychology [facility] [place] [facility] [address] [place] [address] Logan Morales, PhD [address] [facility] [place] [address] 08/28/2023 9:00 AM EDT Office Visit Rheumatology [address] [place] [address] Jimmy Giang MD [address] [place], [place] [address] 09/13/2023 8:40 AM EDT Office Visit Neurology [facility] [address] [facility] [place] [address] Aparna Ruano PA-C [address] [facility] [place] [address] 09/17/2023 1:40 PM EDT Office Visit [facility] [address] [place] [address] Anahy Grayson MD [address] [place], [place] [id number] Scheduled Procedures Name Priority Associated Diagnoses Date/Ti me COLONOSCOPY FLEXIBLE PROXIMAL DIAGNOSTIC Recall Colon cancer screening Health Maintenance Due Date Last Done Comments DISCUSS TOBACCO CESSATION (REFER TO SMARTSET #9207) 1965 COVID-19 Vaccine (#1) 02/09/1969 Alpha-1 Antitrypsin [...] D LEVEL ONCE IN A LIFETIME-USE SMARTSET# 59617 Completed 08/01/2023, 08/04/2021 GARDASIL-HPV IMMUNIZATION SERIES Aged Out No longer eligible based on patient's age to complete this topic MENINGOCOCCAL (MENACTRA/MENVEO) Aged Out No longer eligible based on patient's age to complete this topic documented as of this encounter Medical Devices Not on filedocumented as of this encounter Care Teams Restaurant Hostess Relationship Specialty Start Date End Date Anahy Grayson MD [address] [place] [address] PCP - General Internal Medicine 01/27/22 documented as of this encounter
--- OUTSIDE RECORDS SUMMARY | 2023-08-13 00:09 | External Medical Summary | Summary of Care ---
Author Name Unknown Organization [facility] Address [address] [place] [address] Phone [phone] Care Team Providers Care Software Writer Name Role Phone Anahy Grayson MD Primary Care Provider [phone] Reason for Referral * Precert (Within 10 days (routine)) - Pending Review Specialty Diagnoses / Procedures Referred By Contac t Referred To Contact Radiology Diagnoses Small vessel disease (HCC) Tobacco use disorder PAD (peripheral artery disease) (HCC) Procedures CTA CHEST NON-CORONARY W CONTRAST Randall Palencia PA-C [address] [place] [address] Referral ID Status Reason Start Date Expiration Date V isits Requested Visits Authorized [id number] Pending Review 08/01/2023 999 999 Reason for Visit * Reason Comments Follow Up Pt has small vessel arterial disease, return earlier than expected, following CTA w/ runoff. Encounter Details Date Type Department Care Team (Late st Contact Info) Description 08/01/2023 10:50 AM EST Office Visit Vascular Surgery, [facility] [address] [facility] [place] [address] Galo Gold MD [address] [place] [address] Small vessel disease (HCC)*; Tobacco use disorder; PAD (peripheral artery disease) ([facility]) Allergies No known active allergiesdocumented as of this encounter (statuses as of 08/02/2023) Medications Medication Sig Dispensed Refills Start Date End Date Status Aspirin 81 MG Oral Tablet Delayed Release Take 1 Tablet by mouth in the morning. 0 Active Spiriva Respimat 2.5 MCG/ACT Inhalation Aerosol Solution (Tiotropium [place] Light Monohydrate) Inhale by mouth 2 Puffs in [...] MG Oral Tablet (Apixaban)Indicat ions:Persistent atrial fibrillation ([facility]) TAKE ONE TABLET BY MOUTH 2 TIMES [...] Oral Tablet (Crestor)Indicati ons:Coronary artery disease involving assinibo[place] and [place]re tribes coronary artery of assiniboine and [place] tribes heart without angina pectoris,HFrEF (heart failure with reduced ejection fraction) ([facility]),HTN, goal below 140/90,Dyslipidem ia, goal LDL below [...] Active Sarilumab 200 MG/1.14ML Subcutaneous Solution Auto-injector (AeroGrow Internationalzara)Indicati ons:Rheumatoid arthritis involving multiple sites with positive rheumatoid factor ([facility]) Inject 1.14 mL under the skin every [...] dications:HFrEF (heart failure with reduced ejection fraction) ([facility]) TAKE 1 TABLET BY MOUTH EVERY MORNING 90 Tablet 3 05/08/2023 Active Furosemide 20 MG Oral Tablet (Lasix)Indication s:HFrEF (heart failure with reduced ejection fraction) ([facility]) Take 2 Tablets by mouth in the morning. 180 Tablet 3 06/06/2023 Active oxyCODONE-Acetami nophen 10-325 MG Oral Tablet (Percocet) Take 1 Tablet by mouth every 6 hours as needed for Pain, Severe. Do not start before July 25, 2023. 120 Tablet 0 07/25/2023 Active predniSONE 5 MG Oral Tablet (Deltasone)Indica tions:Rheumatoid arthritis involving multiple sites with positive rheumatoid factor (HCC) Take one to two tablets by mouth [...] dose Rx Exacerbation plan o Chest Xray meterman systemic steroid user 06/23/2022 Scoliosis 06/23/2022 SVT [...] Sign Reading Time Taken Comments Blood Pressure 113/72 08/01/2023 10:57 AM EST Pulse 86 08/01/2023 10:57 AM EST Temperature - - Respiratory Rate - - Oxygen Saturation - - Inhaled Oxygen Concentration - - Weight 92.9 kg (204 lb 12.8 oz) 024 10:57 AM EST Height - - Body Mass Index 31.14 05/17/2023 1:17 PM EST documented in this encounter Progress Notes * Randall Palencia PA-C - 08/01/2023 10:50 AM EST Images from the original note were not included. ADDENDUM 08/02/2023: Repeat DERRICK 08/01/23: 1.06/1.04, triphasic waveforms 08/01/23 BLE Art Duplex: No Fem/Pop aneurysms 08/02/23 CTA chest: small area of calcified plaque underside of aortic arch, otherwise unremarkable CTA as potential source of arterial emboli I spoke with pt yesterday about results of yesterday's vascular labs and I just left VM on pt's cell to call me back about the results of today's chest CTA Randall Palencia PA-C 12:57 PM 08/02/2023 +_+_+_+_+_+_+_+_+_+_+_+_+_+_+ Date of Service: 08/01/2023 10:58 AM Harrison Morgan is a 58 year old male. Patient being seen in consultation at the request of Anahy Grayson MD Chief Complaint: Pt has small vessel arterial disease, return earlier than expected, following CTA w/ runoff Seen by us in past for Raynaud's of fingers HPI: [facility] smoker but not very much, 1 cig per day for last 3-4 yrs Since last visit patient (07/04/23) right great toe continues to be painful, area of necrosis has enlarged Taking narcotics, via PCP No claudication or rest pain His GF noticed black spot base of toe (a week prior to 07/04/23) visit With past visits, patient developed a right 4th finger hangnail in early 03/2021 which he attemptedto trim. In the meantime he was admitted to [facility] with SOB at which time he was noted to have multiple lung nodules on CT scan, CHF with EF of 40-45% as well as right 4th finger infection for which hewas established on abx. Unfortunately finger failed to heal and he was evaluated by Dr. Power (Hand Surgeon) who felt thiswas an ischemic ulceration secondary to his nicotine and caffeine use. Recommended local wound careand long with abstinence from nicotine and caffeine. More recently was sen by Dr. Hardy (Rhumatology) on 06/01/2021, followed for Rheumotoid Arthritis) with worsening necrosis of his right ring finger. Clinic notation suggested history of Raynaud's. Was provided with course of Keflex which Mr. Morgan feels has helped with demarcation of necrotic finger tip with minimal surrounding erythema. Also started on 5 mg of Amlodipine daily. FAMILY HISTORY: Pertinent family history is listed below. Current Outpatient Medications Medication Sig Dispense Refill Aspirin 81 MG Oral Tablet Delayed Release Take 1 Tablet by mouth in the morning. Spiriva Respimat 2.5 MCG/ACT Inhalation Aerosol Solution (Tiotropium [place] Light Monohydrate) Inhale bymouth 2 Puffs in the [...] doses in 15 minutes 25 Tablet 11 DULoxetine HCl 30 MG Oral Capsule Delayed Release Particles (Cymbalta) Take 1 Capsule by mouth in the morning. Do not cut, crush or chew. 30 Capsule 5 Ondansetron HCl 4 MG Oral Tablet Take 1 Tablet by mouth every 8 hours as needed for Nausea. 20 Tablet 0 predniSONE 5 MG Oral Tablet (Deltasone) Take one to two tablets by mouth daily for rheumatoid arthritis. (Patient taking differently: Take 2 Tablets by mouth daily as needed (flare up for RA). Take one to two tablets by mouth daily for rheumatoid arthritis as needed) 60 Tablet 2 Sarilumab 200 MG/1.14ML Subcutaneous Solution Auto-injector ([employer]) Inject 1.14 mL under the skinevery 14 [...] before July 25, 2023. 120 Tablet 0 No current facility-administered medications for this visit. Review of patient's allergies indicates: No Known Allergies Patient Active Problem List Diagnosis Code DJD (degenerative joint disease) M19.90 Erectile dysfunction N52.9 Tobacco use disorder F17.200 MEDICATION USE AGREEMENT [id number] Rheumatoid arthritis involving multiple sites with positive rheumatoid factor (HCC) M05.79 Hepatitis C virus infection cured after antiviral drug therapy Z86.19 Effusion of left knee M25.462 Knee pain M25.569 Tear of lateral meniscus of knee S83.289A Gastro-esophageal reflux disease without esophagitis K21.9 PAD (peripheral artery disease) ([facility]) I73.9 Depression with anxiety F41.8 Cardiomyopathy ([facility]) I42.9 DDD (degenerative disc disease), lumbar M51.36 Immunodeficiency due to drugs ([facility]) D84.821, Z79.899 Age-related nuclear cataract, bilateral H25.13 SVT (supraventricular tachycardia) I47.10 Frequent PVCs I49.3 Chronic systolic heart failure ([facility]) I50.22 meterman systemic steroid user Z79.52 Scoliosis M41.9 COPD, group B, by GOLD 2017 classification ([facility]) J44.9 HFrEF (heart failure with reduced ejection fraction) ([facility]) I50.20 Persistent atrial fibrillation ([facility]) I48.19 Encounter for long-term (current) use of medications Z79.899 Lung nodules R91.8 Lung mass R91.8 Senile osteoporosis M81.0 Food insecurity Z59.41 Small vessel disease ([facility]) I73.9 Past Medical History: Diagnosis Date Lung nodule Primary localized osteoarthrosis of shoulder region 05/28/2008 right Rotator cuff syndrome 05/28/2008 right Tobacco use disorder Past Surgical History: Procedure Laterality Date BRONCHOSCOPY, DIAGNOSTIC N/A 10/11/2022 BRONCHOSCOPY DIAGNOSTIC WITH OR WITHOUT WASHING performed by Randall England MD at [facility]COPY [facility] COLONOSCOPY, DIAGNOSTIC (RECTUM) 07/24/2017 normal, repeat 10 yrs/COLONOSCOPY FLEXIBLE PROXIMAL DIAGNOSTIC performed by Paul Verma MD at ENDOSCOPY [facility] DENTAL SURGERY PROCEDURE NEC age 15 or 16 wisdome teeth x 4 IR BIOPSY 06/20/2021 REMOVAL OF TONSILS, AGE 12+ age 11 Tonsils Removal,11+ Y/O REVISE KNEE JOINT REPLACEMENT Right Family History Problem Relation Age of Onset Hypertension Mother Heart disease Mother Dementia Father Social History Socioeconomic History Marital status: Significant Other Spouse name: Caterina Number of children: 4 Years of education: Not on file Highest education level: Not on file Occupational History 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 Possible mold in his home. job: [employer] employer: [employer] last education: 12 service: no hobbies/interests: Hunting [employer] transfusions: no exercise: little diet: no hoahaoism/orthodoxy: no marital status: 09/26 children: 07/26 gc: 0 ggc: 0 pets: 2 dogs, [...] on file Housing Stability: Not on file COMPLETE REVIEW OF SYSTEMS: CONSTITUTIONAL: Denies fever, Denies shaking chills. EYES: Denies amaurosis fugax. EAR, NOSE, THROAT AND MOUTH: denies trouble swallowing. CARDIOVASCULAR: denies chest pains, denies AZ, denies palpitations, reports CHF. RESPIRATORY: reports shortness of breath with hospitalization 04/04/2021. Lung nodules pending biopsy scheduled for 06/13/2021. GASTROINTESTINAL: denies melena, denies bright red blood per rectum. GENITOURINARY: denies hematuria. MUSKULOSKELETAL: Rheumatoid arthritis. H/O lower back pain. SKIN: denies rash, denies ulcers. NEUROLOGICAL: denies TIA, denies CVA, denies amaurosis fugax. PSYCHIATRIC: denies depression, denies anxiety. ENDOCRINOLOGIC: denies NIDDM, denies IDDM, denies hyperlipidemia, denies thyroid disease. HEMATOLOGIC: denies anemia, denies blood clotting problems. All other systems negative except for those noted above and in the history of present illness (HPI). GENERAL MULTI-SYSTEM PHYSICAL EXAM: VITAL SIGNS: BP 113/72 | Pulse 86 | Wt 92.9 kg (204 lb 12.8 oz) | BMI 31.14 kg/m | BSA 2.11 m GENERAL MULTI-SYSTEM PHYSICAL EXAM: GENERAL: Normal grooming habits, no acute distress and appears stated age. NECK: No masses. RESPIRATORY: CTA CARDIOVASCULAR: no heart murmurs, mild ankle/foot edema. GASTROINTESTINAL: no tenderness, protuberant and abdominal aorta not palpable. LYMPHATIC: cervical lymph nodes normal and inguinial lymph nodes normal. SKIN: Feet with B/L lower leg/feet rubor. Feet and toes are warm. Enlarged dry black lesions tip ofgreat toe and stable lesion base of right great toe, see PHOTOs Healed amputation of tip of right 4th finger PSYCHIATRIC: orientation to time, place and person normal and recent and remote memory normal. EYES: conjunctivae normal, eye lids normal, pupils normal and irises normal. NEUROLOGIC: Motor function intact and Sensory exam intact 08/01/2023 07/04/2023 PULSE SCALE: Carotid Right:----Bruit: No Left:----Bruit: No Radial Right: 0 Ulnar 3 Left: 3 Strong squires arch doppler signal Femoral Right: 3 Left: 3 Popliteal Right: 2 Left: 0 Dorsalis Pedis Right: 0 Left: 0 Posterior Tibial Right: 3 Left: 3 PULSE SCALE: 4=Aneurysmal; 3=Normal; 2=Diminished; 1=Barely Palpable; 0=Absent DIAGNOSTIC STUDIES: 07/26/23 CTA Abd/Pelvis w/ runoff: Some intramural thrombus and calcified plaque of CIAs, RCIA 1.3 cm, LCIA 1.4 cm, posterior plaque of CFAs (R>L), scattered mild plaque of SFAs, large amt of artifact RTKA HW (unable to see R Pop), patent L Pop w/ 1 vessel runoff. No contrast seen in R tibials The above diagnostic images were directly visualized and independently interpreted by me on 08/01/2023 with results as above 07/02/23 Vasospasm DERRICK: 0.92/1.00, decreased PPGs of R toes // and L toes // that did not improve w/ warm immersion, C/W fixed small vessel arterial disease 06/08/23 CT Chest: No ATAA, minimal plaque 06/24/22 CTA Neck: B/L non-obstructive calcified plaque of ICAs and right carotid bifurcation 06/10/2021 BUE Doppler: WBI .92/1.03. Right PPG with dampened 1st & 2nd waveforms, excellent amplitude of 3rd and 5th PPG and flattened 4th PPG which improved with warming. Incidentally LUE PPG with excellent amplitude throughout at room temperature. LABS: Lab Results Component Value Date/Time CREATININE - [facility] 1.1 07/18/2023 03:30 PM CREATININE - [facility] 1.3 (H) 03/28/2023 01:39 PM CREATININE - [facility] 0.8 11/16/2022 01:34 PM CREATININE - [facility] 0.7 12/15/2019 02:28 PM CREATININE - [facility] 0.8 05/23/2019 01:03 PM CREATININE - [facility] 0.7 04/03/2019 05:02 PM CREATININE K[facility]I 213 11/07/2016 04:04 PM CREATININE-OUTSIDE LAB 0.63 04/06/2022 12:00 AM CREATININE-OUTSIDE LAB 0.79 08/16/2017 12:00 AM Lab Results Component Value Date/Time LDL CHOLESTEROL (CALCULATED) - [facility] 43 08/28/2022 11:20 AM LDL CHOLESTEROL (CALCULATED) - [facility] 53 11/19/2017 03:31 PM LDL CHOLESTEROL (DIRECT MEASURE) - [facility] NOT APPLICABLE 12/21/2015 08:52 AM Hemoglobin Results: Lab Results Component Value Date/Time HGB - [facility] 16.0 03/28/2023 01:39 PM HGB - [facility] 12.9 (L) 03/21/2022 09:15 AM HGB - [facility] 14.5 01/31/2022 10:09 AM HGB - [facility] 14.2 12/15/2019 02:28 PM HGB - [facility] 14.7 05/23/2019 01:03 PM HGB - [facility] 14.2 04/03/2019 05:02 PM The above clinical labs were reviewed by me on 08/01/23 IMPRESSIONS: Recent vasospasm DERRICK revealed fixed small vessel arterial disease of B/L 1st, 4th and 5th toes Worsening lesions of right great toe Subsequent CTA w/ runoff showed no IV contrast in right tibial arteries and only [address] Chest 06/20 showed minimal plaque For TTe (to assess for LV thrombus, as potential embolic source) scheduled for 08/09/23 Will get repeat DERRICK today and add in a RLE Art Duplex, to r/o pop aneurysms Will need CTA Chest to truly r/o source of emboli H/O right 4th distal finger ulceration. H/O Raynaud's, supported by 2021 vascular study. Asymptomatic B/L nonobstructive carotid stenosis, as seen on 2022 CTA neck Nonobstructive CAD per card cath of 2020 AFib, remains on Eliquis HFrEF, EF = 40-45% per 2022 TTe Tobacco dependency COPD Multiple pulmonary nodules Rheumatoid Arthritis followed by Rheumatology, Dr. Giang Lumbar DDD, recent T7 compression fracture S/P R TKR. H/O IV drug use. H/O Hep C, treated PLAN: The patient was counseled regarding the pathophysiology and natural history of peripheral vascular disease With regards to right great toe, patient has fixed small vessel disease. He will likely not progress to gangrenous toe but we will have to wait and see Getting updated TTe to assess for LV thrombus but doubt that would be the case, given chronic uninterrupted Eliquis use Continue ASA 81 mg for platelet inhibition/atherosclerosis/PAD Continue Crestor 5 mg for dyslipidemia/hyperlipidemia & pleiotropic benefits of statins On Eliquis 5 mg BID for chronic AFib Patient counseled regarding continued COMPLETE smoking cessation. Add RLE Art Duplex to already scheduled repeat DERRICK Will get CTA of Chest to R/O arteriosclerotic plaque of ascending aorta and aortic arch RTC 1 wk, with Dr. Lange. Review CTA, vascular labs and check his right great toe The patient was seen and examined with Galo Gold MD. Randall Palencia PA-C I have reviewed the advanced practitioner's documentation on the date of service referenced in note, and I agree with, and take responsibility for the plan of care. Worsening wound of distal right toe CTA with some right SFA stenosis. Unable to visualize popliteal artery to evaluate for aneurysm dueto knee prosthesis - will get duplex. Will also get CTA of chest (previous CT was non-contrasted) especially given his history of distal finger ischemia. Will message PCP regarding findings on CT for metastatic disease Discussed painting toe wound with betadine Will bring him back in a week or two for wound check and to follow up studies Continue medical management Galo Gold MD Section of Vascular [place] [address] [phone] documented in this encounter Nursing Notes * Shelia Lo MED ASSIST - 08/01/2023 10:58 AM EST Chief Complaint Patient presents with Follow Up Pt has small vessel arterial disease, return earlier than expected, following CTA w/ runoff. Verified patient. Some pain 8/10 constant. documented in this encounter Plan of Treatment Upcoming Encounters Date Type Department Care Team (Late st Contact Info) Description 08/08/2023 10:30 AM EDT Office Visit Vascular Surgery, [facility] [address] [facility] [address] Tre Lange MD [address] [place] [address] 08/09/2023 2:30 PM EDT Cardiac Studies Cardiac Studies, [facility] [address] [place] [address] 08/17/2023 4:00 PM EDT [facility] Visit [facility] [address] [place] [address] Cindy Underwood RN [address] [facility] [place] [place] [address] 08/21/2023 12:30 PM EDT Therapy Neuropsychology [facility] [address] [place] [address] Logan Morales, PhD [address] [facility] [place] [address] 08/28/2023 9:00 AM EDT Office Visit Rheumatology [address] [place] [address] Jimmy Giang MD [facility] [place] [address] 09/13/2023 8:40 AM EDT Office Visit Neurology [facility] [address] [facility] [place] [address] Aparna Ruano PA-C [address] [facility] [place] [address] 09/17/2023 1:40 PM EDT Office Visit [facility] [address] [place] [id number] Anahy Grayson MD [address] [place], [place] [id number] Pending Results Name Type Priority Associated Diagnoses Date /Time CTA CHEST NON-CORONARY W CONTRAST Medical Imaging Routine Small vessel disease (HCC) Tobacco use disorder PAD (peripheral artery disease) (HCC) 08/02/2023 9:40 AM EST Scheduled Procedures Name Priority Associated Diagnoses Date/Ti me COLONOSCOPY FLEXIBLE PROXIMAL DIAGNOSTIC Recall Colon cancer screening Health Maintenance Due Date Last Done Comments DISCUSS TOBACCO CESSATION (REFER TO SMARTSET #3192) 1965 COVID-19 Vaccine (#1) 02/09/1969 Alpha-1 Antitrypsin [...] D LEVEL ONCE IN A LIFETIME-USE SMARTSET# 32162 Completed 08/01/2023, 08/04/2021 GARDASIL-HPV IMMUNIZATION SERIES Aged Out No longer eligible based on patient's age to complete this topic MENINGOCOCCAL (MENACTRA/MENVEO) Aged Out No longer eligible based on patient's age to complete this topic documented as of this encounter Medical Devices Not on filedocumented as of this encounter Visit Diagnoses Diagnosis Small vessel disease (HCC)- Primary Peripheral vascular disease, unspecified Tobacco use disorder PAD (peripheral artery disease) (HCC) Peripheral vascular disease, unspecified documented in this encounter Care Teams Software Writer Relationship Specialty Start Date End Date Anahy Grayson MD [address] [place] [address] PCP - General Internal Medicine 01/27/22 documented as of this encounter
--- OUTSIDE RECORDS SUMMARY | 2023-08-13 00:09 | External Medical Summary ---
Author Name Unknown Address Unknown Organization K1G:[facility] - [address] [place] [id number] Laboratory Report Ordering Provider Test Date Status HENRY COELHO JR 08/05/2023 14:59:49 Final Observation Date Value Abnormality Reference (Units ) Status WBC, Total 08/05/2023 14:59:49 10.19 4.00-10.8 0 (K/uL) Final RBC 08/05/2023 14:59:49 5.74 4.50-5.25 (M/uL) Final Hemoglobin 08/05/2023 14:59:49 16.6 14.0-16.8 (g/dL) Final HCT 08/05/2023 14:59:49 52.0 Above high normal 40 .0-48.4 (%) Final MCV 08/05/2023 14:59:49 90.6 82.0-99.5 (fL) Final MCH 08/05/2023 14:59:49 28.9 27.0-34.0 (pg) Final MCHC 08/05/2023 14:59:49 31.9 32.0-36.0 (g/dL) Final RDW 08/05/2023 14:59:49 19.4 11.5-15.5 (%) Final Platelets 08/05/2023 14:59:49 227 140-400 (K /uL) Final MPV 08/05/2023 14:59:49 10.7 6.6-11.1 ( fL) Final Performing Location [facility] - [address] [facility] [id number]
--- OUTSIDE RECORDS SUMMARY | 2023-08-13 00:09 | External Medical Summary | Summary of Care ---
Author Name Unknown Organization [facility] Address [address] [place] [address] Phone [phone] Care Team Providers Care Metallurgical Specialist Name Role Phone Anahy Grayson MD Primary Care Provider [phone] Encounter Details Date Type Department Care Team (Late st Contact Info) Description 08/06/2023 Population Health External Data Unspecified Department Allergies No known active allergiesdocumented as of this encounter (statuses as of 08/06/2023) Medications Medication Sig Dispensed Refills Start Date End Date Status Aspirin 81 MG Oral Tablet Delayed Release Take 1 Tablet by mouth in the morning. 0 Active Spiriva Respimat 2.5 MCG/ACT Inhalation Aerosol Solution (Tiotropium [place] Monohydrate) Inhale by mouth 2 Puffs in [...] Oral Tablet (Crestor)Indications :Coronary artery disease involving [place] coronary artery of [place] heart without angina pectoris,HFrEF (heart failure with [...] dose Rx Exacerbation plan o Chest Xray supervisor intermediates systemic steroid user 06/23/2022 Scoliosis 06/23/2022 SVT [...] AM EDT Scheduled Telephone [facility], [facility] [address] [place] [address] Coordinator, [facility] [address] [place] [address] 08/08/2023 10:30 AM EDT Office Visit Vascular Surgery, [facility] [address] [place] [address] Tre Lange MD [address] [place] [address] 08/09/2023 2:30 PM EDT Cardiac Studies Cardiac Studies, [facility] [address] [place] [address] 08/17/2023 4:00 PM EDT [facility] Visit [facility] [address] [place] [address] Cindy Underwood RN [address] [place] [address] 08/21/2023 12:30 PM EDT Therapy Neuropsychology [facility] [address] [place] [address] Logan Morales, PhD 200 [facility] [place] [address] 08/28/2023 9:00 AM EDT Office Visit Rheumatology [place] [id number] [place] [address] Jimmy Giang MD [facility] [place] [address] 09/13/2023 8:40 AM EDT Office Visit Neurology [facility] [address] [place] [address] Aparna Ruano PA-C 200 [facility] [place] [address] 09/17/2023 1:40 PM EDT Office Visit [facility] [address] [place] [address] Anahy Grayson MD [address], [place] [phone] Scheduled Procedures Name Priority Associated Diagnoses Date/Ti me COLONOSCOPY FLEXIBLE PROXIMAL DIAGNOSTIC Recall Colon cancer screening Health Maintenance Due Date Last Done Comments DISCUSS TOBACCO CESSATION (REFER TO SMARTSET #2395) 1965 COVID-19 Vaccine (#1) 02/09/1969 Alpha-1 Antitrypsin [...] D LEVEL ONCE IN A LIFETIME-USE SMARTSET# 86557 Completed 08/01/2023, 08/04/2021 GARDASIL-HPV IMMUNIZATION SERIES Aged Out No longer eligible based on patient's age to complete this topic MENINGOCOCCAL (MENACTRA/MENVEO) Aged Out No longer eligible based on patient's age to complete this topic documented as of this encounter Medical Devices Not on filedocumented as of this encounter Care Teams Metallurgical Specialist Relationship Specialty Start Date End Date Anahy Grayson [facility] [address] [facility] [address] PCP - General Internal Medicine 01/27/22 documented as of this encounter
--- OUTSIDE RECORDS SUMMARY | 2023-08-13 00:09 | External Medical Summary ---
Author Name Unknown Address Unknown Organization [id number]:LABORATORY [facility] - [address] [facility] [address] Laboratory Report Ordering Provider Test Date Status HENRY COELHO JR 08/05/2023 14:59:49 Final Observation Date Value Abnormality Reference (Units ) Status SYNC LEUKOCYTES IN BLOOD BY AUTOMATED COUNT 08/05/2023 14:59:49 10.19 4.00-10.80 (K/uL) Final Segs 08/05/2023 14:59:49 79.2 Above high normal 40.0-75.0 (%) Final Lymphs % 08/05/2023 14:59:49 10.6 Below low normal 18.0-42.0 (%) Final Monos 08/05/2023 14:59:49 8.5 1.0-11.0 (%) Final Eosinophils 08/05/2023 14:59:49 1.4 0.0-6.0 (%) Final Basos 08/05/2023 14:59:49 0.3 0.0-2.0 (%) Final Absolute Segs 08/05/2023 14:59:49 8.07 Above high normal 1.80-7.70 (K/uL) Final Lymphs, absolute 08/05/2023 14:59:49 1.08 1.00-4.80 (K/ul) Final Monos, Abs 08/05/2023 14:59:49 0.87 0.00-1.10 (K/uL) Final Eos, Abs 08/05/2023 14:59:49 0.14 0.00-0.70 (K/uL) Final Basos, Abs 08/05/2023 14:59:49 0.03 0.00-0.20 (K/uL) Final Performing Location LABORATORY [facility] - [address] [facility] [address]
--- OUTSIDE RECORDS SUMMARY | 2023-08-13 00:10 | External Medical Summary | Summary of Care ---
Author Name Unknown Organization [facility] Address [address] [place] [address] Phone [phone] Care Team Providers Care Mental Health Assistant Name Role Phone Anahy Grayson MD Primary Care Provider [phone] Encounter Details Date Type Department Care Team (Late st Contact Info) Description 08/01/2023 Orders Only Vascular Surgery, [facility] 132 [facility] [place] [address] Randall Palencia PA-Anthony [address] [place] [address] Small vessel disease (HCC)*; PAD (peripheral artery disease) (HCC) Allergies No known active allergiesdocumented as of this encounter (statuses as of 08/01/2023) Medications Medication Sig Dispensed Refills Start Date End Date Status Aspirin 81 MG Oral Tablet Delayed Release Take 1 Tablet by mouth in the morning. 0 Active Spiriva Respimat 2.5 MCG/ACT Inhalation Aerosol Solution (Tiotropium [place] Monohydrate) Inhale by mouth 2 Puffs in the morning. 4 g 11 03/21/2022 Active Vitamin D3 10 MCG (400 UNIT) Oral Tablet Take 1 Tablet by mouth in the morning. 0 Active Centrum Silver 50+Men Oral Tablet Take 1 Tablet by mouth in the morning. 0 Active oxygen IN GAS Use 2 L/min(Oxygen) as directed. 0 Active Entresto 24-26 MG Oral Tablet (sacubitril-valsart an 24-26 mg per tab) Take 1 Tablet by mouth in the morning and 1 Tablet before bedtime. 180 Tablet 07/28/2022 Active Metoprolol Succinate ER 100 MG Oral Tablet Extended Release 24 Hour (toPROL XL) Take 1 Tablet by mouth in the morning and 1 Tablet before bedtime. 180 Tablet 07/28/2022 Active Digoxin 125 MCG Oral Tablet (Lanoxin) Take 1 Tablet by mouth in the morning. 34 Tablet 08/08/2022 Active Eliquis 5 MG Oral Tablet (Apixaban)Indicatio ns:Persistent atrial fibrillation (HCC) TAKE ONE TABLET BY MOUTH 2 TIMES A DAY 180 Tablet 08/15/2022 Active Metoprolol Succinate ER 25 MG Oral Tablet Extended Release 24 Hour (toPROL XL) Take 1 Tablet by mouth in the morning and 1 Tablet before bedtime. In addition to 100 mg daily. Total of 125 mg twice per day.. 180 Tablet 09/19/2022 Active Spironolactone 25 MG Oral Tablet (Aldactone) Take 0.5 Tablets by mouth in the morning. 15 Tablet 5 10/17/2022 Active Rosuvastatin Calcium 5 MG Oral Tablet (Crestor)Indication s:Coronary artery disease involving [place] coronary artery of [place] heart without angina pectoris,HFrEF (heart failure with reduced ejection fraction) (HCC),HTN, goal below 140/90,Dyslipidemia , goal LDL below 70,Palpitations TAKE ONE TABLET [...] for Nausea. 20 Tablet 0 01/09/2023 Active predniSONE 5 MG Oral Tablet (Deltasone)Indicati ons:Rheumatoid arthritis involving multiple sites with positive rheumatoid factor ([facility]) Take one to two tablets by mouth daily for rheumatoid arthritis. 60 Tablet 2 03/05/2023 Active Additional Information Patient taking differently: 10 mg Oral DAILY PRN, flare up for RA, Take one to two tablets by mouth daily for rheumatoid arthritis as needed, Reported on 04/20/2023 Sarilumab 200 MG/1.14ML Subcutaneous Solution Auto-injector (Kevzara)Indication s:Rheumatoid arthritis involving multiple sites with positive rheumatoid factor ([facility]) Inject 1.14 mL under the skin every 14 days. 2.28 mL 11 03/05/2023 Active Omeprazole 40 MG Oral Capsule Delayed Release (PriLOSEC) Take 1 Capsule by mouth in the morning. 1 hour before the first meal of the day.. 90 Capsule 3 03/15/2023 Active Sildenafil Citrate 20 MG Oral Tablet (Revatio)Indication s:Raynaud's disease with gangrene ([facility]) TAKE ONE TABLET BY MOUTH EVERY MORNING , 1 TABLET AT NOON AND 2 TABLETS BEFORE BEDTIME 90 Tablet 2 03/30/2023 Active sulfaSALAzine 500 MG Oral Tablet Delayed Release (Azulfidine Entab) Take 1 Tablet by mouth in the morning. 0 Active Jardiance 10 MG Oral Tablet (Empagliflozin)Nalini cations:HFrEF (heart failure with reduced ejection fraction) ([facility]) TAKE 1 TABLET BY MOUTH EVERY MORNING 90 Tablet 3 05/08/2023 Active Furosemide 20 MG Oral Tablet (Lasix)Indications: HFrEF (heart failure with reduced ejection fraction) ([facility]) Take 2 Tablets by mouth in the morning. 180 Tablet 3 06/06/2023 Active oxyCODONE-Acetamino phen 10-325 MG Oral Tablet (Percocet) Take 1 Tablet by mouth every 6 hours as needed for Pain, Severe. Do not start before July 25, 2023. 120 Tablet 0 07/25/2023 Active documented as of this encounter (statuses as of 08/01/2023) Active Problems Problem Noted Date Diagnosed Date Small vessel disease 08/01/2023 Food insecurity 01/08/2023 Overview: Per [facility] Protocol Senile osteoporosis 01/04/2023 Lung nodules [...] dose Rx Exacerbation plan o Chest Xray senior care systemic steroid user 06/23/2022 Scoliosis 06/23/2022 SVT [...] as of this encounter (statuses as of 08/01/2023) Resolved Problems Problem Noted Date Diagnosed Date [...] as of this encounter (statuses as of 08/01/2023) Immunizations Name Administration Dates Next Due HepA Inact/HepB Recomb>=18yrs old 08/26/2018 Hepatitis B, 20+ yrs 05/27/2019,10/10/2018 Pneumococcal Conjugate Vacc, 13 Valent (Prevnar) 03/21/2019 Pneumococcal Polysaccharide PPV23 (Pneumovax) 02/12/2020 Seasonal Influenza, PF, 6 M & above, IM , (FluLaval or Fluzone) 03/03/2021,02/12/2020,03/21/2019,12/0 08/2017,03/15/2017 04/30/2019 TD - Tetanus/Diptheria (ADULT) 03/28/2007 TDAP [...] on file documented as of this encounter Progress Notes * Randall Palencia PA-C - 08/01/2023 11:08 AM EST Ordered RLE Art Duplex, to be done today documented in this encounter Plan of Treatment Upcoming Encounters Date Type Department Care Team (Late st Contact Info) Description 08/01/2023 11:40 AM EST Laboratory [facility] [address] [facility] [place] [id number] [facility] 132 [facility] [place] [address] Arrived 08/01/2023 12:00 PM EST Imaging Vascular Lab, [facility] 2nd [facility] [place] 132 [facility] [place] [address] Arrived 08/01/2023 2:30 PM EST Imaging Vascular Lab, [facility] [place] [facility] [place] [address] Arrived 08/02/2023 9:15 AM EST Imaging Radiology [facility] 1st [facility] [place] [address] [facility] [address] 08/08/2023 10:30 AM EDT Office Visit Vascular Surgery, [facility] 132 [place] [address] Tre Lange MD [address] [place] [address] 08/09/2023 2:30 PM EDT Cardiac Studies Cardiac Studies, [facility] 132 [place] [address] 08/17/2023 4:00 PM EDT Home Visit [facility], [facility] 132 [place] [address] Cindy Underwood, RN 132 [place] [address] 08/21/2023 12:30 PM EDT Therapy Neuropsychology [facility] Vickie [place] 200 [facility] [place] [address] Logan Morales, PhD [address] [facility] [place] [address] 08/28/2023 9:00 AM EDT Office Visit Rheumatology [place] [address] [facility] [place], [place] [address] Jimmy Giang MD [facility] [place] [address] 09/13/2023 8:40 AM EDT Office Visit Neurology [employer] [facility] [place] [address] Aparna Ruano PA-C [address] [facility] [place] [address] 09/17/2023 1:40 PM EDT Office Visit [facility] [address] [place] [phone] Anahy Grayson MD [address] [place] [address] Scheduled Orders Name Type Priority Associated Diagnoses Orde r Schedule VASC [place] ART DUP LTD LE Medical Imaging Routine Small vessel disease (HCC) PAD (peripheral artery disease) (HCC) Ordered: 08/01/2023 Scheduled Procedures Name Priority Associated Diagnoses Date/Ti me COLONOSCOPY FLEXIBLE PROXIMAL DIAGNOSTIC Recall Colon cancer screening Health Maintenance Due Date Last Done Comments DISCUSS TOBACCO CESSATION (REFER TO SMARTSET #3290) 1965 COVID-19 Vaccine (#1) 02/09/1969 Alpha-1 Antitrypsin [...] D LEVEL ONCE IN A LIFETIME-USE SMARTSET# 49199 Completed 08/04/2021 GARDASIL-HPV IMMUNIZATION SERIES Aged Out No longer eligible based on patient's age to complete this topic MENINGOCOCCAL (MENACTRA/MENVEO) Aged Out No longer eligible based on patient's age to complete this topic documented as of this encounter Medical Devices Not on filedocumented as of this encounter Visit Diagnoses Diagnosis Small vessel disease (HCC)- Primary Peripheral vascular disease, unspecified PAD (peripheral artery disease) (HCC) Peripheral vascular disease, unspecified documented in this encounter Care Teams Mental Health Assistant Relationship Specialty Start Date End Date Anahy Grayson MD [address] [place] [address] PCP - General Internal Medicine 01/27/22 documented as of this encounter
--- OUTSIDE RECORDS SUMMARY | 2023-08-13 00:10 | External Medical Summary ---
Author Name Unknown Address Unknown Organization K01:[facility]ATORY [facility] [place] - [address] [place] [address] Laboratory Report Ordering Provider Test Date Status MILLYKELBYBRISEIDA 08/01/2023 11:32:10 Final Observation Date Value Abnormality Reference (Units ) Status Erythrocyte sedimentation rate by Photometric method 08/01/2023 11:32:10 18 <20 (mm/hour) Final Performing Location LABORATORY [facility] - [address] [place] [address]
--- OUTSIDE RECORDS SUMMARY | 2023-08-13 00:10 | External Medical Summary ---
Author Name Unknown Address Unknown Organization K01:[facility] [place] [address] [place] [address] Laboratory Report Ordering Provider Test Date Status ALEK EAST 08/01/2023 11:32:10 Final Deficient: <20 ng/mL
Ins ufficient: 20-29 ng/mL
Recommended/Optimum:30-50 ng/mL

Vitamin D intoxication is rare. If suspicious of Vitamin D toxicity, evaluation of serum Calcium and PTH is recommended. Observation Date Value Abnormality Reference (Units ) Status 25-OH Vitamin D total 08/01/2023 11:32:10 17 Below low normal >19 (ng/mL) Final Performing Location LABORATORY [facility] - [address] [place] [address]
--- OUTSIDE RECORDS SUMMARY | 2023-08-13 00:10 | External Medical Summary ---
Author Name Unknown Address Unknown Organization K0G:LABORATORY [facility] [place] [address] - [address] [place] [address] Laboratory Report Ordering Provider Test Date Status ALEK EAST 08/01/2023 11:32:10 Final Observation Date Value Abnormality Reference (Units ) Status Nucleated erythrocytes/100 leukocytes [Ratio] in Blood by Automated count 08/01/2023 11:32:10 Final Performing Location LABORATORY [facility] [place] [address] 0 - [address] [place] [address]
--- OUTSIDE RECORDS SUMMARY | 2023-08-13 00:10 | External Medical Summary ---
Author Name Unknown Address Unknown Organization K0G:LABORATORY [facility] [place] [address] - [address] [place] [address] Laboratory Report Ordering Provider Test Date Status ALEK EAST 08/01/2023 11:32:10 Final Observation Date Value Abnormality Reference (Units ) Status WBC, Total 08/01/2023 11:32:10 5.79 4.00-10.8 0 (K/uL) Final RBC 08/01/2023 11:32:10 5.47 4.50-5.25 (M/uL) Final Hemoglobin 08/01/2023 11:32:10 15.7 14.0-16.8 (g/dL) Final HCT 08/01/2023 11:32:10 49.3 Above high normal 40 .0-48.4 (%) Final MCV 08/01/2023 11:32:10 90.1 82.0-99.5 (fL) Final MCH 08/01/2023 11:32:10 28.7 27.0-34.0 (pg) Final MCHC 08/01/2023 11:32:10 31.8 32.0-36.0 (g/dL) Final RDW 08/01/2023 11:32:10 18.8 11.5-15.5 (%) Final Platelets 08/01/2023 11:32:10 210 140-400 (K /uL) Final MPV 08/01/2023 11:32:10 10.7 6.6-11.1 ( fL) Final Performing Location LABORATORY [facility] [place] [address] 0 - [address] [place] [address]
--- OUTSIDE RECORDS SUMMARY | 2023-08-13 00:10 | External Medical Summary | Summary of Care ---
Author Name Unknown Organization [facility] Address [address] [place] [address] Phone [phone] Care Team Providers Care Locate Technician Name Role Phone Anahy Grayson MD Primary Care Provider [phone] Reason for Visit * Reason Onset Date Comments Advice 07/30/2023 Encounter Details Date Type Department Care Team (Late st Contact Info) Description 07/30/2023 Telephone Vascular Surg [facility] [place] [address] [place] [address] Daphnie Ramirez PA-C [address], [place] [phone] Advice Allergies No known active allergiesdocumented as of this encounter (statuses as of 07/31/2023) Medications Medication Sig Dispensed Refills Start Date End Date Status Aspirin 81 MG Oral Tablet Delayed Release Take 1 Tablet by mouth in the morning. 0 Active Spiriva Respimat 2.5 MCG/ACT Inhalation Aerosol Solution (Tiotropium [place] Monohydrate) Inhale by mouth 2 Puffs in [...] Oral Tablet (Crestor)Indication s:Coronary artery disease involving [place] coronary artery of [place] heart without angina pectoris,HFrEF (heart failure with reduced ejection fraction) ([facility]),HTN, goal below 140/90,Dyslipidemia , goal LDL below [...] Oral Tablet (Revatio)Indication s:Raynaud's disease with gangrene ([facility]) TAKE ONE TABLET BY MOUTH EVERY MORNING , 1 TABLET AT NOON AND 2 TABLETS BEFORE BEDTIME 90 Tablet 2 03/30/2023 Active sulfaSALAzine 500 MG Oral Tablet Delayed Release (Azulfidine Entab) Take 1 Tablet by mouth in the morning. 0 Active Jardiance 10 MG Oral Tablet (Empagliflozin)Nalini cations:HFrEF (heart failure with reduced ejection fraction) ([facility]) TAKE 1 TABLET BY MOUTH EVERY MORNING 90 Tablet 3 05/08/2023 Active Furosemide 20 MG Oral Tablet (Lasix)Indications: HFrEF (heart failure with reduced ejection fraction) ([facility]) Take 2 Tablets by mouth in the morning. 180 Tablet 3 06/06/2023 Active oxyCODONE-Acetamino phen 10-325 MG Oral Tablet (Percocet) Take 1 Tablet by mouth every 6 hours as needed for Pain, Severe. Do not start before July 25, 2023. 120 Tablet 0 07/25/2023 Active documented as of this encounter (statuses as of 07/31/2023) Active Problems Problem Noted Date Diagnosed Date Food insecurity 01/08/2023 Overview: Per [facility] Protocol Senile osteoporosis 01/04/2023 Lung nodules [...] as of this encounter (statuses as of 07/31/2023) Resolved Problems Problem Noted Date Diagnosed Date [...] as of this encounter (statuses as of 07/31/2023) Immunizations Name Administration Dates Next Due HepA [...] as of this encounter Miscellaneous Notes * Addendum Note - Kita Gaston MD [...] 10:50 AM EST Office Visit Vascular Surgery, [facility] [address] [facility] [place] [address] Galo Gold MD [address] [facility] [place] [address] 08/01/2023 12:00 PM EST Imaging Vascular Lab, [facility] 2nd [facility] 132 [facility] [place] [address] 08/09/2023 2:30 PM EDT Cardiac Studies Cardiac Studies, [facility] 132 [facility] [place] [address] 08/17/2023 4:00 PM EDT [facility], [facility] 132 [facility] [place] [address] Cindy Underwood, RN 132 [facility] [place] [address] 08/21/2023 12:30 PM EDT Therapy Neuropsychology [facility] 200 [facility] [place] [address] Logan Morales, PhD 200 [facility] [place] [address] 08/28/2023 9:00 AM EDT Office Visit Rheumatology [place] [id number] [facility] [place] [address] Kita Gaston MD [facility] [place] [address] 09/13/2023 8:40 AM EDT Office Visit Neurology [facility] 200 [facility] [place] [address] Aparna Ruano PA-C 200 [facility] [place] [address] 09/17/2023 1:40 PM EDT Office Visit [facility] [address] [place] [address] Anahy Grayson MD [address] [place], [place] [phone] Scheduled Orders Name Type Priority Associated Diagnoses Orde r Schedule PTH Lab Routine Rheumatoid arthritis involving multiple sites with positive rheumatoid factor (HCC) Steroid-induced osteoporosis Expected: 07/31/2023, Expires: 07/30/2024 25-HYDROXY VITAMIN D Lab Routine Rheumatoid arthritis involving multiple sites with positive rheumatoid factor (HCC) Steroid-induced osteoporosis Expected: 07/31/2023, Expires: 07/30/2024 CBC WITH WBC DIFFERENTIAL Lab Routine Rheumatoid arthritis involving multiple sites with positive rheumatoid factor (HCC) Steroid-induced osteoporosis Expected: 07/31/2023, Expires: 07/30/2024 Scheduled Procedures Name Priority Associated Diagnoses Date/Ti me COLONOSCOPY FLEXIBLE PROXIMAL DIAGNOSTIC Recall Colon cancer screening Health Maintenance Due Date Last Done Comments DISCUSS TOBACCO CESSATION (REFER TO SMARTSET #9028) 1965 COVID-19 Vaccine (#1) 02/09/1969 Alpha-1 Antitrypsin [...] D LEVEL ONCE IN A LIFETIME-USE SMARTSET# 36493 Completed 08/04/2021 GARDASIL-HPV IMMUNIZATION SERIES Aged Out No longer eligible based on patient's age to complete this topic MENINGOCOCCAL (MENACTRA/MENVEO) Aged Out No longer eligible based on patient's age to complete this topic documented as of this encounter Medical Devices Not on filedocumented as of this encounter Visit Diagnoses Diagnosis Rheumatoid arthritis involving multiple sites with positive rheumatoid factor (HCC)- Primary Age-related nuclear cataract, bilateral Senile nuclear sclerosis Steroid-induced osteoporosis Other osteoporosis documented in this encounter Care Teams Locate Technician Relationship Specialty Start Date End Date Anahy Grayson MD [address] [place] [address] PCP - General Internal Medicine 01/27/22 documented as of this encounter
--- OUTSIDE RECORDS SUMMARY | 2023-08-13 00:10 | External Medical Summary | Summary of Care ---
Author Name Unknown Organization [facility] Address [address] [place] [address] Phone [phone] Care Team Providers Care Machine Burrer Name Role Phone Anahy Grayson MD Primary Care Provider [phone] Reason for Visit * Reason Comments eRx-Medication Refill Encounter Details Date Type Department Care Team (Late st Contact Info) Description 07/29/2023 Refill Rheumatology [place] [id number] [place] [address] Kita Gaston MD [facility] [email or web address] [address] Rheumatoid arthritis involving multiple sites with positive rheumatoid factor (HCC) Allergies No known active allergiesdocumented as of this encounter (statuses as of 08/01/2023) Medications Medication Sig Dispensed Refills Start Date End Date Status Aspirin 81 MG Oral Tablet Delayed Release Take 1 Tablet by mouth in the morning. 0 Active Spiriva Respimat 2.5 MCG/ACT Inhalation Aerosol Solution (Tiotropium [place] Monohydrate) Inhale by mouth 2 Puffs [...] Oral Tablet (Crestor)Indicati ons:Coronary artery disease involving [place] coronary artery of [place] heart without angina pectoris,HFrEF (heart failure with [...] s:HFrEF (heart failure with reduced ejection fraction) (HCC) Take 2 Tablets by mouth in the [...] RHEUMATOID ARTHRITIS 60 Tablet 5 08/01/2023 Active predniSONE 5 MG Oral Tablet (Deltasone)Indica tions:Rheumatoid arthritis involving multiple sites with positive rheumatoid factor (HCC) Take one to two tablets by mouth daily for rheumatoid arthritis. 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 06/23/2022 Scoliosis 06/23/2022 SVT [...] encounter Miscellaneous Notes * Telephone Encounter - Yolanda Hurtado [facility] - 08/01/2023 3:52 PM ESTSigned Prescriptions: Disp Refills predniSONE 5 MG Oral Tablet (Deltasone) 60 Tab*5 Sig: TAKE 1 TO 2 TABLETS BY MOUTH ONCE DAILY FOR RHEUMATOID ARTHRITISAuthorizing Provider: KITA GASTON User: YOLANDA HURTADO * Telephone Encounter - Yolanda Hurtado RPh - 08/01/2023 3:50 PM EST Rheumatology: Refill Request(s) Per review of the refill parameters, Medication was refilled Yolanda Hurtado RPh [facility] Clinical Pharmacist Rheumatology Department 08/01/2023,3:50 PM * Telephone Encounter - [employer] [facility] - 07/31/2023 6:04 AM EST Pending Prescriptions: Disp Refills predniSONE 5 MG Oral Tablet [Pharmacy Med *60 Tab*0 Sig: TAKE 1 TO 2 TABLETS BY MOUTH ONCE DAILY FOR RHEUMATOID ARTHRITIS * Telephone Encounter - Shaggy Holley two - 07/30/2023 5:45 AM ESTPending Prescriptions: Disp Refills predniSONE 5 MG Oral Tablet [Pharmacy Med *60 Tab*0 Sig: TAKE 1 TO 2 TABLETS BY MOUTH ONCE DAILY FOR RHEUMATOID ARTHRITIS * Telephone Encounter - Kishan [employer] View [employer] two - 07/30/2023 5:43 AM EST Did you pend patient's preferred pharmacy and medication before forwarding?yes Pharmacy: [id number] [address] [place] Pending Prescriptions: Disp Refills predniSONE 5 MG Oral Tablet (Deltasone) [*60 Tab*0 Sig: TAKE 1 TO 2 TABLETS BY MOUTH ONCE DAILY FOR RHEUMATOID ARTHRITIS Last Visit: 01/04/2023 (in office), Visit date not found (telemedicine) Next Visit: 08/28/2023 If no future appointments scheduled, and last appointment is greater than a year ago, please schedule patient for a follow-up appointment Last date the medication was ordered: 03/05/2023 Is this request for a controlled substance?No [...] Labs: Lab Results Component Value Date/Time CREAT 1.1 07/18/2023 03:30 PM CREAT 0.63 04/06/2022 12:00 AM CREAT 0.7 12/15/2019 02:28 PM POTASSIUM 4.5 07/18/2023 03:30 PM POTASSIUM 3.7 04/06/2022 12:00 AM POTASSIUM 4.3 12/15/2019 02:28 PM TSH 3.56 03/21/2022 09:15 AM TSH 1.43 01/15/2014 10:21 AM LDLCALC 43 08/28/2022 11:20 AM LDLCALC 53 11/19/2017 03:31 PM LDLDIRECT NOT APPLICABLE 12/21/2015 08:52 AM ALT 17 07/18/2023 03:30 PM ALT 13 12/15/2019 02:28 PM HGBA1C 5.9 (H) 01/31/2022 10:09 AM HGBA1C 6.0 (A) 08/16/2017 12:00 AM documented in this encounter Plan of Treatment Upcoming Encounters Date Type Department Care Team (Late st Contact Info) Description 08/02/2023 9:15 AM EST Imaging Radiology [facility] 1st [facility] [place] [address] 08/08/2023 10:30 AM EDT Office Visit Vascular Surgery, [facility] 132 [place] [address] Tre Lange MD [address] [place] [address] 08/09/2023 2:30 PM EDT Cardiac Studies Cardiac Studies, [facility] [address] [place] [address] 08/17/2023 4:00 PM EDT Home Visit [facility] [address] [facility] [place] [address] Cindy Underwood RN 132 [facility] [place] [address] 08/21/2023 12:30 PM EDT Therapy Neuropsychology [facility]one [facility] [place] [address] [place] [address] Logan Morales, PhD 200 [facility] [place] [address] 08/28/2023 9:00 AM EDT Office Visit Rheumatology [address] [place] [address] Kita Gaston MD [address] [email or web address] [place], [place] [address] 09/13/2023 8:40 AM EDT Office Visit Neurology [facility] 200 [facility] [place] [address] Aparna Ruano PA-C 200 [facility] [place] [address] 09/17/2023 1:40 PM EDT Office Visit [facility] [address] [place] [address] Anahy Grayson MD [address], [place] [phone] Scheduled Procedures Name Priority Associated Diagnoses Date/Ti me COLONOSCOPY FLEXIBLE PROXIMAL DIAGNOSTIC Recall Colon cancer screening Health Maintenance Due Date Last Done Comments DISCUSS TOBACCO CESSATION (REFER TO SMARTSET #5479) 1965 COVID-19 Vaccine (#1) 02/09/1969 Alpha-1 Antitrypsin [...] D LEVEL ONCE IN A LIFETIME-USE SMARTSET# 08748 Completed 08/04/2021 GARDASIL-HPV IMMUNIZATION SERIES Aged Out No longer eligible based on patient's age to complete this topic MENINGOCOCCAL (MENACTRA/MENVEO) Aged Out No longer eligible based on patient's age to complete this topic documented as of this encounter Medical Devices Not on filedocumented as of this encounter Visit Diagnoses Diagnosis Rheumatoid arthritis involving multiple sites with positive rheumatoid factor (HCC) documented in this encounter Care Teams Machine Burrer Relationship Specialty Start Date End Date Anahy Grayson MD [address] [place] [facility] [place] [address] PCP - General Internal Medicine 01/27/22 documented as of this encounter
--- OUTSIDE RECORDS SUMMARY | 2023-08-13 00:10 | External Medical Summary | Summary of Care ---
Author Name Unknown Organization [facility] Address [address] [place] [address] Phone [phone] Care Team Providers Care Assembler Wet Wash Name Role Phone Anahy Grayson MD Primary Care Provider [phone] Reason for Visit * Reason Onset Date Comments Advice 07/30/2023 Encounter Details Date Type Department Care Team (Late st Contact Info) Description 07/30/2023 Telephone Vascular Surg [facility] [place] [address] [place] [address] Daphnie Ramirez PA-C [address], [place] [phone] Advice Allergies No known active allergiesdocumented as of this encounter (statuses as of 07/30/2023) Medications Medication Sig Dispensed Refills Start Date End Date Status Aspirin 81 MG Oral Tablet Delayed Release Take 1 Tablet by mouth in the morning. 0 Active Spiriva Respimat 2.5 MCG/ACT Inhalation Aerosol Solution (Tiotropium [place] Monohydrate) Inhale by mouth 2 Puffs in [...] Oral Tablet (Crestor)Indication s:Coronary artery disease involving [place] coronary artery of [place] heart without angina pectoris,HFrEF (heart failure with reduced ejection fraction) ([facility]),HTN, goal below 140/90,Dyslipidemia , goal LDL [...] involving multiple sites with positive rheumatoid factor ([facility]) Inject 1.14 mL under the skin every 14 days. 2.28 mL 11 03/05/2023 Active Omeprazole 40 MG Oral Capsule Delayed Release (PriLOSEC) Take 1 Capsule by mouth in the morning. 1 hour before the first meal of the day.. 90 Capsule 3 03/15/2023 Active Sildenafil Citrate 20 MG Oral Tablet (Revatio)Indication s:Raynaud's disease with gangrene ([facility]) TAKE ONE TABLET BY MOUTH EVERY MORNING , 1 TABLET AT NOON AND 2 TABLETS BEFORE BEDTIME 90 Tablet 2 03/30/2023 Active sulfaSALAzine 500 MG Oral Tablet Delayed Release (Azulfidine Entab) Take 1 Tablet by mouth in the morning. 0 Active Jardiance 10 MG Oral Tablet (Empagliflozin)Nalini cations:HFrEF (heart failure with reduced ejection fraction) ([facility]) TAKE 1 TABLET BY MOUTH EVERY MORNING 90 Tablet 3 05/08/2023 Active Furosemide 20 MG Oral Tablet (Lasix)Indications: HFrEF (heart failure with reduced ejection fraction) ([facility]) Take 2 Tablets by mouth in the morning. 180 Tablet 3 06/06/2023 Active oxyCODONE-Acetamino phen 10-325 MG Oral Tablet (Percocet) Take 1 Tablet by mouth every 6 hours as needed for Pain, Severe. Do not start before July 25, 2023. 120 Tablet 0 07/25/2023 Active documented as of this encounter (statuses as of 07/30/2023) Active Problems Problem Noted Date Diagnosed Date Food insecurity 01/08/2023 Overview: Per [facility] Protocol Senile osteoporosis 01/04/2023 Lung nodules [...] dose Rx Exacerbation plan o Chest Xray [facility] systemic steroid user 06/23/2022 Scoliosis 06/23/2022 SVT [...] as of this encounter (statuses as of 07/30/2023) Resolved Problems Problem Noted Date Diagnosed Date [...] as of this encounter (statuses as of 07/30/2023) Immunizations Name Administration Dates Next Due HepA [...] encounter Miscellaneous Notes * Telephone Encounter - Daphnie Ramirez PA-C [...] nodule. He also follows with Rheumatology (Dr. Jimmy Giang) who is treating his RA and senile osteoporosis. I will pass findings along to these two providers as well as PCP in case further work-up is required. Dr. Plaza, Dr. Giang, and Dr. Grayson: I wanted to include [...] 10:50 AM EST Office Visit Vascular Surgery, [facility] 132 [facility] [place] [address] Galo Gold MD [address] [place] [address] 08/01/2023 12:00 PM EST [facility] [address] [facility] [place] [address] 08/09/2023 2:30 PM EDT Cardiac Studies Cardiac Studies, [facility] [address] [facility] [place] [address] 08/17/2023 4:00 PM EDT [facility] [place] [address] [place] [address] Cindy Underwood, RN 132 [facility] [place] [address] 08/21/2023 12:30 PM EDT Therapy Neuropsychology [place] [place] [address] [place] [address] Logan Morales, PhD 200 [facility] [place] [address] 08/28/2023 9:00 AM EDT Office Visit Rheumatology [address] [place] [address] Jimmy Giang MD [facility]0 [employer] [place] [address] 09/13/2023 8:40 AM EDT Office Visit Neurology [facility] 200 [facility] [place] [address] Aparna Ruano PA-C 200 [facility] [place] [address] 09/17/2023 1:40 PM EDT Office Visit [facility] [address] [place] [phone] Anahy Grayson MD [address] [place] [address] Scheduled Procedures Name Priority Associated Diagnoses Date/Ti me COLONOSCOPY FLEXIBLE PROXIMAL DIAGNOSTIC Recall Colon cancer screening Health Maintenance Due Date Last Done Comments DISCUSS TOBACCO CESSATION (REFER TO SMARTSET #5314) 1965 COVID-19 Vaccine (#1) 02/09/1969 Alpha-1 Antitrypsin [...] D LEVEL ONCE IN A LIFETIME-USE SMARTSET# 01914 Completed 08/04/2021 GARDASIL-HPV IMMUNIZATION SERIES Aged Out No longer eligible based on patient's age to complete this topic MENINGOCOCCAL (MENACTRA/MENVEO) Aged Out No longer eligible based on patient's age to complete this topic documented as of this encounter Medical Devices Not on filedocumented as of this encounter Care Teams Assembler Wet Wash Relationship Specialty Start Date End Date Anahy Grayson MD [address] [place] [address] PCP - General Internal Medicine 01/27/22 documented as of this encounter
--- OUTSIDE RECORDS SUMMARY | 2023-08-13 00:10 | External Medical Summary ---
Author Name Unknown Address Unknown Organization K01:[facility] - [address] [place] [address] Laboratory Report Ordering Provider Test Date Status [facility] 08/01/2023 11:32:10 Final Observation Date Value Abnormality Reference (Units ) Status Parathyrin.intact [Mass/volume] in Serum or Plasma 08/01/2023 11:32:10 115 Above high normal 15-65 (pg/mL) Final Performing Location [facility] - [address] [place] [address]
--- OUTSIDE RECORDS SUMMARY | 2023-08-13 00:10 | External Medical Summary | Summary of Care ---
Author Name Unknown Organization [facility] Address [address] [place] [address] Phone [phone] Care Team Providers Care Parts Administrator Name Role Phone Anahy Grayson MD Primary Care Provider [phone] Reason for Visit * Reason Onset Date Comments Advice 07/30/2023 Encounter Details Date Type Department Care Team (Late st Contact Info) Description 07/30/2023 Telephone Vascular Surg [facility] [place] [address] [place] [address] Daphnie Ramirez PA-C [address], [place] [phone] Advice Allergies No known active allergiesdocumented as of this encounter (statuses as of 08/01/2023) Medications Medication Sig Dispensed Refills Start Date End Date Status Aspirin 81 MG Oral Tablet Delayed Release Take 1 Tablet by mouth in the morning. 0 Active Spiriva Respimat 2.5 MCG/ACT Inhalation Aerosol Solution (Tiotropium [place] Monohydrate) Inhale by mouth 2 Puffs in [...] Oral Tablet (Crestor)Indication s:Coronary artery disease involving [place] coronary artery of [place] heart without angina pectoris,HFrEF (heart failure with reduced ejection fraction) ([facility]),HTN, goal below 140/90,Dyslipidemia , goal LDL below [...] involving multiple sites with positive rheumatoid factor ([facility]) Take one to two tablets by mouth daily for rheumatoid arthritis. 60 Tablet 2 03/05/2023 Active Additional Information Patient taking differently: 10 mg Oral DAILY PRN, flare up for RA, Take one to two tablets by mouth daily for rheumatoid arthritis as needed, Reported on 04/20/2023 Sarilumab 200 MG/1.14ML Subcutaneous Solution Auto-injector (Kevzara)Indication s:Rheumatoid arthritis involving multiple sites with positive rheumatoid factor ([facility]) Inject 1.14 mL under the skin every 14 days. 2.28 mL 11 03/05/2023 Active Omeprazole 40 MG Oral Capsule Delayed Release (PriLOSEC) Take 1 Capsule by mouth in the morning. 1 hour before the first meal of the day.. 90 Capsule 3 03/15/2023 Active Sildenafil Citrate 20 MG Oral Tablet (Revatio)Indication s:Raynaud's disease with gangrene ([facility]) TAKE ONE TABLET BY MOUTH EVERY MORNING , 1 TABLET AT NOON AND 2 TABLETS BEFORE BEDTIME 90 Tablet 2 03/30/2023 Active sulfaSALAzine 500 MG Oral Tablet Delayed Release (Azulfidine Entab) Take 1 Tablet by mouth in the morning. 0 Active Jardiance 10 MG Oral Tablet (Empagliflozin)Nalini cations:HFrEF (heart failure with reduced ejection fraction) ([facility]) TAKE 1 TABLET BY MOUTH EVERY MORNING 90 Tablet 3 05/08/2023 Active Furosemide 20 MG Oral Tablet (Lasix)Indications: HFrEF (heart failure with reduced ejection fraction) ([facility]) Take 2 Tablets by mouth in the [...] Diagnosed Date Food insecurity 01/08/2023 Overview: Per [facility] Protocol Senile osteoporosis 01/04/2023 Lung nodules [...] dose Rx Exacerbation plan o Chest Xray [facility] systemic steroid user 06/23/2022 Scoliosis 06/23/2022 SVT [...] Team (Late st Contact Info) Description 08/01/2023 2:30 PM EST Imaging Vascular Lab, [facility] 2nd [facility], [place] 132 [facility] [place] [address] Arrived 08/02/2023 9:15 AM EST Imaging Radiology [facility] 1st [facility] [place] [address] [facility] [place] [address] 08/08/2023 10:30 AM EDT Office Visit Vascular Surgery, [facility] [place] [address] Tre Lange MD [address] [facility] [place] [address] 08/09/2023 2:30 PM EDT Cardiac Studies Cardiac Studies, [facility] 132 [facility] [place] [address] 08/17/2023 4:00 PM EDT [facility] [address] [facility] [place] [address] Cindy Underwood RN 132 [facility] [place] [address] 08/21/2023 12:30 PM EDT Therapy Neuropsychology [facility] [address] [place] [address] Logan Morales, PhD 200 [facility] [place] [address] 08/28/2023 9:00 AM EDT Office Visit Rheumatology [address] [place] [address] Kita Gaston MD [facility]0 [facility] [place], [place] [address] 09/13/2023 8:40 AM EDT Office Visit Neurology [facility] [place] [address] Aparna Ruano PA-C [address] [facility] [address] [place] [address] 09/17/2023 1:40 PM EDT Office Visit [facility] [address] [place] [phone] Anahy Grayson MD [address] [place], [place] [phone] Pending Results Name Type Priority Associated Diagnoses Date /Time PTH Lab Routine Rheumatoid arthritis involving multiple sites with positive rheumatoid factor (HCC) Steroid-induced osteoporosis 08/01/2023 11:32 AM EST 25-HYDROXY VITAMIN D Lab Routine Rheumatoid arthritis involving multiple sites with positive rheumatoid factor (HCC) Steroid-induced osteoporosis 08/01/2023 11:32 AM EST Scheduled Orders Name Type Priority Associated Diagnoses [...] Comments DISCUSS TOBACCO CESSATION (REFER TO SMARTSET #3299) 1965 COVID-19 Vaccine (#1) 02/09/1969 Alpha-1 Antitrypsin [...] D LEVEL ONCE IN A LIFETIME-USE SMARTSET# 14624 Completed 08/04/2021 GARDASIL-HPV IMMUNIZATION SERIES Aged Out [...] osteoporosis documented in this encounter Care Teams Parts Administrator Relationship Specialty Start Date End Date Anahy Grayson MD [address] [place], [place] [phone] PCP - General Internal Medicine 01/27/22 documented as of this encounter
--- OUTSIDE RECORDS SUMMARY | 2023-08-13 00:10 | External Medical Summary | Summary of Care ---
Author Name Unknown Organization [facility] Address [address] [place] [address] Phone [phone] Care Team Providers Care Parts Salesman Name Role Phone Anahy Grayson MD Primary Care Provider [phone] Reason for Referral * Precert (Within 10 days (routine)) - Pending Review Specialty Diagnoses / Procedures Referred By Contac t Referred To Contact Radiology Diagnoses Small vessel disease (HCC) Tobacco use disorder PAD (peripheral artery disease) (HCC) Procedures CTA CHEST NON-CORONARY W CONTRAST Randall Palencia PA-C [address] [place] [address] Referral ID Status Reason Start Date Expiration Date V isits Requested Visits Authorized [id number] Pending Review 08/01/2023 999 999 Reason for Visit * Reason Comments Follow Up Pt has small vessel arterial disease, return earlier than expected, following CTA w/ runoff. Encounter Details Date Type Department Care Team (Late st Contact Info) Description 08/01/2023 10:50 AM EST Office Visit Vascular Surgery, [facility] 132 [facility] [place] [address] Galo Gold MD [address] [place] [address] Small vessel disease (HCC)*; Tobacco use disorder; PAD (peripheral artery disease) ([facility]) Allergies No known active allergiesdocumented as of this encounter (statuses as of 08/01/2023) Medications Medication Sig Dispensed Refills Start Date End Date Status Aspirin 81 MG Oral Tablet Delayed Release Take 1 Tablet by mouth in the morning. 0 Active Spiriva Respimat 2.5 MCG/ACT Inhalation Aerosol Solution (Tiotropium [place] Monohydrate) Inhale by mouth 2 Puffs in [...] MG Oral Tablet (Apixaban)Indicatio ns:Persistent atrial fibrillation ([facility]) TAKE ONE TABLET BY MOUTH 2 TIMES [...] Oral Tablet (Crestor)Indication s:Coronary artery disease involving [place] coronary artery of [place] heart without angina pectoris,HFrEF (heart failure with reduced ejection fraction) ([facility]),HTN, goal below 140/90,Dyslipidemia , goal LDL below [...] 04/20/2023 Sarilumab 200 MG/1.14ML Subcutaneous Solution Auto-injector ([employer])Indication s:Rheumatoid arthritis involving multiple sites with positive rheumatoid factor ([facility]) Inject 1.14 mL under the skin every 14 days. 2.28 mL 11 03/05/2023 Active Omeprazole 40 MG Oral Capsule Delayed Release (PriLOSEC) Take 1 Capsule by mouth in the morning. 1 hour before the first meal of the day.. 90 Capsule 3 03/15/2023 Active Sildenafil Citrate 20 MG Oral Tablet (Revatio)Indication s:Raynaud's disease with gangrene ([facility]) TAKE ONE TABLET BY MOUTH EVERY MORNING , 1 TABLET AT NOON AND 2 TABLETS BEFORE BEDTIME 90 Tablet 2 03/30/2023 Active sulfaSALAzine 500 MG Oral Tablet Delayed Release (Azulfidine Entab) Take 1 Tablet by mouth in the morning. 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 Date of Service: 08/01/2023 10:58 AM Harrison Morgan is a 58 year old male. Patient being seen in consultation at the request of Anahy Grayson MD Chief Complaint: Pt has small vessel arterial disease, return earlier than expected, following CTA w/ runoff Seen by us in past for Raynaud's of fingers HPI: custodial smoker but not very much, 1 cig [...] In the meantime he was admitted to [facility] with SOB at which time he was [...] Was provided with course of Keflex which MrKatty Morgan feels has helped with demarcation of necrotic finger tip with minimal surrounding erythema. Also started on 5 mg of Amlodipine daily. FAMILY HISTORY: Pertinent family history is listed below. Current Outpatient Medications Medication Sig Dispense Refill Aspirin 81 MG Oral Tablet Delayed Release Take 1 Tablet by mouth in the morning. Spiriva Respimat 2.5 MCG/ACT Inhalation Aerosol Solution (Tiotropium [place] Monohydrate) Inhale bymouth 2 Puffs in the [...] 2 Sarilumab 200 MG/1.14ML Subcutaneous Solution Auto-injector ([employer]) Inject 1.14 mL under the skinevery 14 [...] Tobacco use disorder F17.200 MEDICATION USE AGREEMENT [id number] Rheumatoid arthritis involving multiple sites with positive rheumatoid factor ([facility]) M05.79 Hepatitis C virus infection cured after antiviral drug therapy Z86.19 Effusion of left knee M25.462 Knee pain M25.569 Tear of lateral meniscus of knee S83.289A Gastro-esophageal reflux disease without esophagitis K21.9 PAD (peripheral artery disease) ([facility]) I73.9 Depression with anxiety F41.8 Cardiomyopathy ([facility]) I42.9 DDD (degenerative disc disease), lumbar M51.36 Immunodeficiency due to drugs ([facility]) D84.821, Z79.899 Age-related nuclear cataract, bilateral H25.13 SVT (supraventricular tachycardia) I47.10 Frequent PVCs I49.3 Chronic systolic heart failure (HCC) I50.22 custodial systemic steroid user Z79.52 Scoliosis M41.9 COPD, group B, by GOLD 2017 classification ([facility]) J44.9 HFrEF (heart failure with reduced ejection fraction) ([facility]) I50.20 Persistent atrial fibrillation ([facility]) I48.19 Encounter for long-term (current) use of medications Z79.899 Lung nodules R91.8 Lung mass R91.8 Senile osteoporosis M81.0 Food insecurity Z59.41 Small vessel disease ([facility]) I73.9 Past Medical History: Diagnosis Date Lung nodule Primary localized osteoarthrosis of shoulder region 05/28/2008 right Rotator cuff syndrome 05/28/2008 right Tobacco use disorder Past Surgical History: Procedure Laterality Date BRONCHOSCOPY, DIAGNOSTIC N/A 10/11/2022 BRONCHOSCOPY DIAGNOSTIC WITH OR WITHOUT WASHING performed by Randall England MD at ENDOSCOPY [facility] COLONOSCOPY, DIAGNOSTIC (RECTUM) 07/24/2017 normal, repeat 10 yrs/COLONOSCOPY FLEXIBLE PROXIMAL DIAGNOSTIC performed by Paul Verma MD at ENDOSCOPY [facility] DENTAL SURGERY PROCEDURE NEC age 15 [...] on file Occupational History 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 Possible mold in his home. job: [employer] employer: [employer] last education: 12 service: no hobbies/interests: Hunting fishing transfusions: no exercise: little diet: no zoroastrianism/pentecostal: no marital status: 09/26 children: 3/ gc: 0 ggc: 0 pets: 2 dogs, [...] trouble swallowing. CARDIOVASCULAR: denies chest pains, denies CA, denies palpitations, reports CHF. RESPIRATORY: reports shortness [...] DERRICK: 0.92/1.00, decreased PPGs of R toes //5th and L toes //5th that did not improve w/ warm immersion, [...] MD Section of Vascular [place] [address] [phone] documented in this encounter Nursing Notes * [...] 08/01/2023 2:30 PM EST [facility] 132 [facility] [place] [address] Arrived 08/02/2023 9:15 AM EST Imaging Radiology [facility] [address] [facility] [place] 132 [facility] [place] [address] 08/08/2023 10:30 AM EDT Office Visit Vascular Surgery, [address] [place] [address] Tre Lange MD [address] [place] [address] 08/09/2023 2:30 PM EDT Cardiac Studies Cardiac Studies, [facility] 132 [facility] [place] [address] 08/17/2023 4:00 PM EDT Home Visit [facility], [facility] 132 [facility] [place] [address] Cindy Underwood, RN [facility] [place] [address] 08/21/2023 12:30 PM EDT Therapy Neuropsychology [facility] 200 [facility] [place] [address] Logan Morales, PhD 200 [facility] [place] [address] 08/28/2023 9:00 AM EDT Office Visit Rheumatology [place] [address] [employer] [place] [address] Jimmy Giang MD [facility] [employer] [place] [address] 09/13/2023 8:40 AM EDT Office Visit Neurology [facility] 200 [facility] [place] [address] Aparna Ruano PA-C 200 [facility] [place] [address] 09/17/2023 1:40 PM EDT Office Visit [facility] [address] [place] [address] Anahy Grayson MD [address] [place], [place] [id number] Scheduled Orders Name Type Priority Associated Diagnoses Orde r Schedule CTA CHEST NON-CORONARY W CONTRAST Medical Imaging Routine Small vessel disease (HCC) Tobacco use disorder PAD (peripheral artery disease) (HCC) Ordered: 08/01/2023 Scheduled Procedures Name Priority Associated Diagnoses Date/Ti me COLONOSCOPY FLEXIBLE PROXIMAL DIAGNOSTIC Recall Colon cancer screening Health Maintenance Due Date Last Done Comments DISCUSS TOBACCO CESSATION (REFER TO SMARTSET #4801) 1965 COVID-19 Vaccine (#1) 02/09/1969 Alpha-1 Antitrypsin [...] D LEVEL ONCE IN A LIFETIME-USE SMARTSET# 01153 Completed 08/04/2021 GARDASIL-HPV IMMUNIZATION SERIES Aged Out [...] unspecified documented in this encounter Care Teams Parts Salesman Relationship Specialty Start Date End Date Anahy Grayson MD [address] [place] [address] PCP - General Internal Medicine 01/27/22 documented as of this encounter
--- OUTSIDE RECORDS SUMMARY | 2023-08-13 00:10 | External Medical Summary ---
Author Name Unknown Address Unknown Organization K[facility] [place] [address] [place] [address] Laboratory Report Ordering Provider Test Date Status [facility] 08/01/2023 11:32:10 Final Observation Date Value Abnormality Reference (Units ) Status SYNC LEUKOCYTES IN BLOOD BY AUTOMATED COUNT 08/01/2023 11:32:10 5.79 4.00-10.80 (K/uL) Final Segs 08/01/2023 11:32:10 53.5 40.0-75.0 (%) Final Lymphs % 08/01/2023 11:32:10 26.8 18.0-42.0 (%) Final Monos 08/01/2023 11:32:10 14.3 Above high normal 1.0-11.0 (%) Final Eosinophils 08/01/2023 11:32:10 4.7 0.0-6.0 (%) Final Basos 08/01/2023 11:32:10 0.7 0.0-2.0 (%) Final Absolute Segs 08/01/2023 11:32:10 3.10 1.80-7.70 (K/uL) Final Lymphs, absolute 08/01/2023 11:32:10 1.55 1.00-4.80 (K/ul) Final Monos, Abs 08/01/2023 11:32:10 0.83 0.00-1.10 (K/uL) Final Eos, Abs 08/01/2023 11:32:10 0.27 0.00-0.70 (K/uL) Final Basos, Abs 08/01/2023 11:32:10 0.04 0.00-0.20 (K/uL) Final [facility] [address] [place] [address]
--- OUTSIDE RECORDS SUMMARY | 2023-08-13 00:10 | External Medical Summary | Summary of Care ---
Author Name Unknown Organization [facility] Address [address] [place] [address] Phone [phone] Care Team Providers Care Mediator Name Role Phone Anahy Grayson MD Primary Care Provider [phone] Reason for Visit * Reason Onset Date Comments Advice 08/01/2023 Encounter Details Date Type Department Care Team (Late st Contact Info) Description 08/01/2023 Telephone Vascular Surg [facility] [address] [place] [address] Galo Gold MD [address] [place], [place] [id number] Advice Allergies No known active allergiesdocumented as of this encounter (statuses as of 08/01/2023) Medications Medication Sig Dispensed Refills Start Date End Date Status Aspirin 81 MG Oral Tablet Delayed Release Take 1 Tablet by mouth in the morning. 0 Active Spiriva Respimat 2.5 MCG/ACT Inhalation Aerosol Solution (Tiotropium [place] Monohydrate) Inhale by mouth 2 Puffs in [...] Oral Tablet (Crestor)Indication s:Coronary artery disease involving [place] coronary artery of [place] heart without angina pectoris,HFrEF (heart failure with reduced ejection fraction) ([facility]),HTN, goal below 140/90,Dyslipidemia , goal LDL [...] sites with positive rheumatoid factor ([facility]) Inject 1.14 mL under the skin every 14 days. 2.28 mL 11 03/05/2023 Active Omeprazole 40 MG Oral Capsule Delayed Release (PriLOSEC) Take 1 Capsule by mouth in the morning. 1 hour before the first meal of the day.. 90 Capsule 3 03/15/2023 Active Sildenafil Citrate 20 MG Oral Tablet (Revatio)Indication s:Raynaud's disease with gangrene ([facility]) TAKE ONE TABLET BY MOUTH EVERY MORNING , 1 TABLET AT NOON AND 2 TABLETS BEFORE BEDTIME 90 Tablet 2 03/30/2023 Active sulfaSALAzine 500 MG Oral Tablet Delayed Release (Azulfidine Entab) Take 1 Tablet by mouth in the morning. 0 Active Jardiance 10 MG Oral Tablet (Empagliflozin)Nalini cations:HFrEF (heart failure with reduced ejection fraction) ([facility]) TAKE 1 TABLET BY MOUTH EVERY MORNING 90 Tablet 3 05/08/2023 Active Furosemide 20 MG Oral Tablet (Lasix)Indications: HFrEF (heart failure with reduced ejection fraction) ([facility]) Take 2 Tablets by mouth [...] disease 08/01/2023 Food insecurity 01/08/2023 Overview: Per [facility] Protocol Senile osteoporosis 01/04/2023 Lung nodules [...] encounter Miscellaneous Notes * Telephone Encounter - Shady Shannon OSA - 08/01/2023 1:13 PM EST Received a call from patient's daughter Hayley who is upset that we did not go over patient's CT results today when he was seen in [facility]. Please advise. Hayley: [phone] documented in this encounter Plan of Treatment Upcoming Encounters Date Type Department Care Team (Late st Contact Info) Description 08/01/2023 2:30 PM EST Imaging Vascular Lab, [facility] 2nd Floor, [place] 132 [facility] [place] [address] Arrived 08/02/2023 9:15 AM EST Imaging Radiology [facility] 1st [facility] 132 [facility] [place] [address] 08/08/2023 10:30 AM EDT Office Visit Vascular Surgery, [facility] 132 [facility] [place] [address] Tre Lange MD [address] [place] [address] 08/09/2023 2:30 PM EDT Cardiac Studies Cardiac Studies, [facility] 132 [facility] [place] [address] 08/17/2023 4:00 PM EDT Home Visit [facility], [facility] 132 [facility] [place] [address] Cindy Underwood RN 132 [facility] [place] [address] 08/21/2023 12:30 PM EDT Therapy Neuropsychology [facility] [address] [place] [address] Logan Morales, PhD 200 [facility] [place] [address] 08/28/2023 9:00 AM EDT Office Visit Rheumatology [address] [place] [address] Jimmy Giang MD [facility] [place] [address] 09/13/2023 8:40 AM EDT Office Visit Neurology [facility] [address] [place] [address] Aparna Ruano, PALexisC [address] [place] [address] 09/17/2023 1:40 PM EDT Office Visit [facility] [address] [place] [facility] [place] [address] Anahy Grayson MD [address] [place] [facility] [place] [facility] [place] [address] Scheduled Procedures Name Priority Associated Diagnoses Date/Ti me COLONOSCOPY FLEXIBLE PROXIMAL DIAGNOSTIC Recall Colon cancer screening Health Maintenance Due Date Last Done Comments DISCUSS TOBACCO CESSATION (REFER TO SMARTSET #3464) 1965 COVID-19 Vaccine (#1) 02/09/1969 Alpha-1 Antitrypsin [...] D LEVEL ONCE IN A LIFETIME-USE SMARTSET# 38264 Completed 08/04/2021 GARDASIL-HPV IMMUNIZATION SERIES Aged Out No longer eligible based on patient's age to complete this topic MENINGOCOCCAL (MENACTRA/MENVEO) Aged Out No longer eligible based on patient's age to complete this topic documented as of this encounter Medical Devices Not on filedocumented as of this encounter Care Teams Mediator Relationship Specialty Start Date End Date Anahy Grayson MD [address] [place] [address] PCP - General Internal Medicine 01/27/22 documented as of this encounter
--- OUTSIDE RECORDS SUMMARY | 2023-08-13 00:10 | External Medical Summary | Summary of Care ---
Author Name Unknown Organization [facility] Address [address] [place] [address] Phone [phone] Care Team Providers Care Project Controls Specialist Name Role Phone Anahy Grayson MD Primary Care Provider [phone] Reason for Visit * Reason Comments Outpatient Testing Encounter Details Date Type Department Care Team (Late st Contact Info) Description 08/01/2023 11:40 AM EST Laboratory Laboratory, [facility] 132 [facility] [place] [address] [facility] 132 [facility] [address] Rheumatoid arthritis involving multiple sites with positive rheumatoid factor (HCC); Steroid-induced osteoporosis Allergies No known active allergiesdocumented as of this encounter (statuses as of 08/01/2023) Medications Medication Sig Dispensed Refills Start Date End Date Status Aspirin 81 MG Oral Tablet Delayed Release Take 1 Tablet by mouth in the morning. 0 Active Spiriva Respimat 2.5 MCG/ACT Inhalation Aerosol Solution (Tiotropium [place] Monohydrate) Inhale by mouth 2 Puffs in [...] by mouth in the morning. 15 Tablet 10/17/2022 Active Rosuvastatin Calcium 5 MG Oral Tablet (Crestor)Indication s:Coronary artery disease involving [place] coronary artery of [place] heart without angina pectoris,HFrEF (heart failure with reduced ejection fraction) ([facility]),HTN, goal below 140/90,Dyslipidemia , goal LDL below 70,Palpitations TAKE ONE TABLET BY MOUTH EVERY MORNING 30 Tablet 10/31/2022 Active Alendronate Sodium 70 MG Oral Tablet (Fosamax) Take 1 Tablet by mouth once a week. 4 Tablet 12/15/2022 Active Nitroglycerin 0.4 MG Sublingual Tablet Sublingual (Nitrostat) Place 1 Tablet under the tongue every 5 minutes as needed for Pain, Chest. up to 3 doses in 15 minutes 25 Tablet 12/15/2022 Active DULoxetine HCl 30 MG Oral Capsule Delayed Release Particles (Cymbalta) Take 1 Capsule by mouth in the morning. Do not cut, crush or chew. 30 Capsule 12/15/2022 Active Ondansetron HCl 4 MG Oral [...] with positive rheumatoid factor ([facility]) Inject 1.14 mL under the skin every 14 days. 2.28 mL 11 03/05/2023 Active Omeprazole 40 MG Oral Capsule Delayed Release (PriLOSEC) Take 1 Capsule by mouth in the morning. 1 hour before the first meal of the day.. 90 Capsule 3 03/15/2023 Active Sildenafil Citrate 20 MG Oral Tablet (Revatio)Indication s:Raynaud's disease with gangrene ([facility]) TAKE ONE TABLET BY MOUTH EVERY MORNING , 1 TABLET AT NOON AND 2 TABLETS BEFORE BEDTIME 90 Tablet 2 03/30/2023 Active sulfaSALAzine 500 MG Oral Tablet Delayed Release (Azulfidine Entab) Take 1 Tablet by mouth in the morning. 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 132 [facility] [place] [address] 08/01/2023 2:30 PM EST Imaging Vascular Lab, [facility] 2nd [facility], [place] 132 [facility] [place] [address] 08/02/2023 9:15 AM EST Imaging Radiology [address], [place] 132 [facility] [place] [address] 08/08/2023 10:30 AM EDT Office Visit Vascular Surgery, [facility] 132 [facility] [place] [address] Tre Lange MD [address] [place] [address] 08/09/2023 2:30 PM EDT Cardiac Studies Cardiac Studies, [facility] 132 [facility] [place] [address] 08/17/2023 4:00 PM EDT Home Visit [facility], [facility] 132 [facility] [place] [address] Cindy Underwood RN 132 [facility] [place] [address] 08/21/2023 12:30 PM EDT Therapy Neuropsychology [facility] 200 [facility] [place] [address] Logan Morales, PhD 200 [facility] [place] [address] 08/28/2023 9:00 AM EDT Office Visit Rheumatology [address] [place] [address] Jimmy Giang MD [address] [place] [address] [place] [address] 09/13/2023 8:40 AM EDT Office Visit Neurology [facility] 200 [facility] [place] [address] Aparna Ruano PA-C 200 [facility] [place] [address] 09/17/2023 1:40 PM EDT Office Visit [address] [address] Anahy Grayson MD [address] [place] [address] Pending Results Name Type Priority Associated Diagnoses Date /Time ERYTHROCYTE SEDIMENTATION RATE (ESR) Lab Routine Rheumatoid arthritis involving multiple sites with positive rheumatoid factor (HCC) 08/01/2023 11:32 AM EST PTH Lab Routine Rheumatoid arthritis involving multiple sites with positive rheumatoid factor (HCC) Steroid-induced osteoporosis 08/01/2023 11:32 AM EST 25-HYDROXY VITAMIN D Lab Routine Rheumatoid arthritis involving multiple sites with positive rheumatoid factor (HCC) Steroid-induced osteoporosis 08/01/2023 11:32 AM EST CBC WITH WBC DIFFERENTIAL Lab Routine Rheumatoid arthritis involving multiple sites with positive rheumatoid factor (HCC) Steroid-induced osteoporosis 08/01/2023 11:32 AM EST CBC Lab Routine Rheumatoid arthritis involving multiple sites with positive rheumatoid factor (HCC) Steroid-induced osteoporosis 08/01/2023 11:32 AM EST DIFFERENTIAL, AUTOMATED Lab Routine Rheumatoid arthritis involving multiple sites with positive rheumatoid factor (HCC) Steroid-induced osteoporosis 08/01/2023 11:32 AM EST Scheduled Procedures Name Priority Associated Diagnoses Date/Ti me COLONOSCOPY FLEXIBLE PROXIMAL DIAGNOSTIC Recall Colon cancer screening Health Maintenance Due Date Last Done Comments DISCUSS TOBACCO CESSATION (REFER TO SMARTSET #3295) 1965 COVID-19 Vaccine (#1) 02/09/1969 Alpha-1 Antitrypsin [...] D LEVEL ONCE IN A LIFETIME-USE SMARTSET# 25857 Completed 08/04/2021 GARDASIL-HPV IMMUNIZATION SERIES Aged Out No longer eligible based on patient's age to complete this topic MENINGOCOCCAL (MENACTRA/MENVEO) Aged Out No longer eligible based on patient's age to complete this topic documented as of this encounter Medical Devices Not on filedocumented as of this encounter Visit Diagnoses Diagnosis Rheumatoid arthritis involving multiple sites with positive rheumatoid factor (HCC) Steroid-induced osteoporosis Other osteoporosis documented in this encounter Care Teams Project Controls Specialist Relationship Specialty Start Date End Date Anahy Grayson MD [address] [place] [address] PCP - General Internal Medicine 01/27/22 documented as of this encounter
--- OUTSIDE RECORDS SUMMARY | 2023-08-13 00:11 | External Medical Summary | Summary of Care ---
Author Name Unknown Organization [facility] Address [address] [place] [address] Phone [phone] Care Team Providers Care Flight Agent Name Role Phone Anahy Grayson MD Primary Care Provider [phone] Reason for Visit * Reason Comments Outpatient Testing Encounter Details Date Type Department Care Team (Late st Contact Info) Description 07/18/2023 3:40 PM EST Laboratory Laboratory, [address] [address] St, Specimen Drop Off [address] [address] Rheumatoid arthritis involving multiple sites with positive rheumatoid factor (HCC); Encounter for long-term (current) use of medications; Persistent atrial fibrillation (HCC); PAD (peripheral artery disease) (HCC); HFrEF (heart failure with reduced ejection fraction) (HCC); Small vessel disease (HCC); Blue toe syndrome of right lower extremity (HCC); Embolism (HCC); Right foot pain Allergies No known active allergiesdocumented as of this encounter (statuses as of 07/18/2023) Medications Medication Sig Dispensed Refills Start Date End Date Status Aspirin 81 MG Oral Tablet Delayed Release Take 1 Tablet by mouth in the morning. 0 Active Spiriva Respimat 2.5 MCG/ACT Inhalation Aerosol Solution (Tiotropium [place] Monohydrate) Inhale by mouth 2 Puffs in [...] Oral Tablet (Crestor)Indication s:Coronary artery disease involving [place] coronary artery of [place] heart without angina pectoris,HFrEF (heart failure with [...] 04/20/2023 Sarilumab 200 MG/1.14ML Subcutaneous Solution Auto-injector (Sellbritezara)Indication s:Rheumatoid arthritis involving multiple sites with positive [...] Oral Tablet (Revatio)Indication s:Raynaud's disease with gangrene ([facility]) TAKE ONE TABLET BY MOUTH EVERY MORNING , 1 TABLET AT NOON AND 2 TABLETS BEFORE BEDTIME 90 Tablet 2 03/30/2023 Active HYDROcodone-Acetami nophen 10-325 MG Oral Tablet Take 1 Tablet by mouth every 6 hours as needed for Pain, Severe. 90 Tablet 0 04/17/2023 Active sulfaSALAzine 500 MG Oral Tablet Delayed Release (Azulfidine Entab) Take 1 Tablet by mouth in the morning. 0 Active Jardiance 10 MG Oral Tablet (Empagliflozin)Nalini cations:HFrEF (heart failure with reduced ejection fraction) ([facility]) TAKE 1 TABLET BY MOUTH EVERY MORNING 90 Tablet 3 05/08/2023 Active Furosemide 20 MG Oral Tablet (Lasix)Indications: HFrEF (heart failure with reduced ejection fraction) ([facility]) Take 2 Tablets by mouth in the morning. 180 Tablet 3 06/06/2023 Active oxyCODONE-Acetamino phen 5-325 MG Oral Tablet (Percocet)Indicatio ns:Rheumatoid arthritis involving multiple sites with positive rheumatoid factor (HCC),DDD (degenerative disc disease), lumbar,Thoracic compression fracture, closed, initial encounter ([facility]),Old tear of lateral meniscus of knee, unspecified laterality, unspecified tear type Take 1 Tablet by mouth every 6 hours as needed for Pain, Severe or Pain, Moderate. 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 Scoliosis 06/23/2022 SVT [...] as of this encounter (statuses as of 07/18/2023) Resolved Problems Problem Noted Date Diagnosed Date [...] as of this encounter (statuses as of 07/18/2023) Immunizations Name Administration Dates Next Due HepA [...] Care Team (Late st Contact Info) Description 07/19/2023 4:00 PM EST Imaging Radiology [facility]st [facility] 132 [facility] [place] [address] 07/25/2023 10:50 AM EST Office Visit Vascular Surgery, [facility] 132 [facility] [place] [address] Galo Gold MD [address] [facility] [place] [address] 08/17/2023 4:00 PM EDT Home Visit [facility], [facility] 132 [facility] [place] [address] Cindy Underwood RN 132 [facility] [place] [address] 08/21/2023 12:30 PM EDT Therapy [facility] [address] [place] [address] Logan Morales, PhD 200 [facility] [place] [address] 09/11/2023 9:40 AM EDT Office Visit Rheumatology [address] [place] [address] Jimmy Giang MD [address] [place] [address] [place] [address] 09/13/2023 8:40 AM EDT Office Visit Neurology [facility] [place]ie [place] [address] [place] [address] Aparna Ruano PA-C [address] [place] [address] 09/17/2023 1:40 PM EDT [address] [address] Anahy Grayson MD [address] [place], [place] [id number] Pending Results Name Type Priority Associated Diagnoses Date /Time COMPREHENSIVE METABOLIC PANEL Lab Routine Rheumatoid arthritis involving multiple sites with positive rheumatoid factor (HCC) Encounter for long-term (current) use of medications 07/18/2023 3:30 PM EST CRP (INFLAMMATORY MARKER) Lab Routine Rheumatoid arthritis involving multiple sites with positive rheumatoid factor (HCC) 07/18/2023 3:30 PM EST Scheduled Procedures Name Priority Associated Diagnoses [...] or PCV20) 02/11/2025 02/12/2020, 03/21/2019 Diabetes Screening 03/28/2026 03/28/2023, 0 11/16/2022, 10/13/2022, Additional history exists Colonoscopy 07/24/2027 07/24/2017, 07/24/2017 Colorectal Cancer Screening 07/24/2027 Lipid Panel 08/29/2027 08/28/2022, 07/26, 06/06/2021, Additional history exists DTaP,Tdap,and Td Vaccines (2 - Td or Tdap) 02/11/2030 02/12/2020, 03/28/2007 Hepatitis B Completed 05/27/2019, 09/25, 08/26/2018 VITAMIN D LEVEL ONCE IN A LIFETIME-USE SMARTSET# 43161 Completed 08/04/2021 GARDASIL-HPV IMMUNIZATION SERIES Aged Out No longer eligible based on patient's age to complete this topic MENINGOCOCCAL (MENACTRA/MENVEO) Aged Out No longer eligible based on patient's age to complete this topic documented as of this encounter Medical Devices Not on filedocumented as of this encounter Visit Diagnoses Diagnosis Rheumatoid arthritis involving multiple sites with positive rheumatoid factor (HCC) Encounter for long-term (current) use of medications Encounter for long-term (current) use of other medications Persistent atrial fibrillation (HCC) Atrial fibrillation PAD (peripheral artery disease) (HCC) Peripheral vascular disease, unspecified HFrEF (heart failure with reduced ejection fraction) (HCC) Small vessel disease (HCC) Peripheral vascular disease, unspecified Blue toe syndrome of right lower extremity (HCC) Embolism (HCC) Embolism and thrombosis of unspecified artery Right foot pain Pain in limb documented in this encounter Care Teams Flight Agent Relationship Specialty Start Date End Date Anahy Grayson MD [address] [place] [address] PCP - General Internal Medicine 01/27/22 documented as of this encounter
--- OUTSIDE RECORDS SUMMARY | 2023-08-13 00:11 | External Medical Summary | Summary of Care ---
Author Name Unknown Organization [facility] Address [address] [place] [address] Phone [phone] Care Team Providers Care Electrotype Servicer Name Role Phone Anahy Grayson MD Primary Care Provider Reason for Visit * Reason Onset Date Comments Vascular Study 07/27/2023 Encounter Details Date Type Department Care Team (Late st Contact Info) Description 07/27/2023 Telephone Vascular Surgery, [facility] 132 [facility] [place] [address] Randall Palencia PA-C [address] [place] [address] Vascular Study Allergies No known active allergiesdocumented as of this encounter (statuses as of 07/27/2023) Medications Medication Sig Dispensed Refills Start Date End Date Status Aspirin 81 MG Oral Tablet Delayed Release Take 1 Tablet by mouth in the morning. 0 Active Spiriva Respimat 2.5 MCG/ACT Inhalation Aerosol Solution (Tiotropium [place] Monohydrate) Inhale by mouth 2 Puffs in [...] Oral Tablet (Crestor)Indication s:Coronary artery disease involving [place] coronary artery of [place] heart without angina pectoris,HFrEF (heart failure with [...] positive rheumatoid factor ([facility]) Take one to two tablets by [...] as of this encounter (statuses as of 07/27/2023) Active Problems Problem Noted Date Diagnosed Date Food insecurity 01/08/2023 Overview: Per [facility] Protocol Senile osteoporosis 01/04/2023 Lung nodules [...] Rx 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 * Telephone Encounter - Randall Palencia PA-C - 07/27/2023 8:33 AM EST Tracie- We are due to see pt in [facility] at [facility] on , 07/31 Based upon yesterday's CTA w/ runoff, we need an updated DERRICK w/ toe PPGs I realize that he had a vasospasm DERRICK just last month on 07/02 but he has had a change in his R greattoe and his runoff showed no contrast in R tibials His appointment is at 10:50. Any chance of getting DERRICK on same day, prior to appointment, or even after we see him, later that day? Thank you ASHLIE documented in this encounter Plan of Treatment Upcoming Encounters Date Type Department Care Team (Late st Contact Info) Description 08/01/2023 10:50 AM EST Office Visit Vascular Surgery, [facility] 132 [facility] [place] [address] Galo Gold MD [address] [facility] [address] 08/01/2023 12:00 PM EST Imaging Vascular Lab, [facility] 2nd Floor, [place] 132 [facility] [place] [address] 08/09/2023 2:30 PM EDT Cardiac Studies Cardiac Studies, [facility] 132 [facility] [place] [address] 08/17/2023 4:00 PM EDT [facility] 132 [facility] [place] [address] Cindy Underwood, RN 132 [facility] [place] [address] 08/21/2023 12:30 PM EDT Therapy Neuropsychology [address] [place] [address] [place] [address] Logan Morales, PhD [address] [place] [address] 08/28/2023 9:00 AM EDT Office Visit Rheumatology [place] [address] [place] [address] Jimmy Giang MD [facility] [place] [address] 09/13/2023 8:40 AM EDT Office Visit Neurology [employer] [facility] [place] [address] Aparna Ruano PA-C 200 [facility] [place] [address] 09/17/2023 1:40 PM EDT [facility] [address] [place] [phone] Anahy Grayson MD [address], [place] [phone] Scheduled Orders Name Type Priority Associated Diagnoses Orde r Schedule VASC ANKLE BRACHIAL INDICES WITH PPG (DIABETIC FOOT/VASOSPASM) Medical Imaging Routine Small vessel disease (HCC) Blue toe syndrome of right lower extremity (HCC) Right foot pain Tobacco use disorder PVD (peripheral vascular disease) (HCC) Ordered: 07/27/2023 Scheduled Procedures Name Priority Associated Diagnoses Date/Ti me COLONOSCOPY FLEXIBLE PROXIMAL DIAGNOSTIC Recall Colon cancer screening Health Maintenance Due Date Last Done Comments DISCUSS TOBACCO CESSATION (REFER TO SMARTSET #2780) 1965 COVID-19 Vaccine (#1) 02/09/1969 Alpha-1 Antitrypsin [...] D LEVEL ONCE IN A LIFETIME-USE SMARTSET# 35205 Completed 08/04/2021 GARDASIL-HPV IMMUNIZATION SERIES Aged Out No longer eligible based on patient's age to complete this topic MENINGOCOCCAL (MENACTRA/MENVEO) Aged Out No longer eligible based on patient's age to complete this topic documented as of this encounter Medical Devices Not on filedocumented as of this encounter Visit Diagnoses Diagnosis Small vessel disease (HCC)- Primary Peripheral vascular disease, unspecified Blue toe syndrome of right lower extremity (HCC) Right foot pain Pain in limb Tobacco use disorder PVD (peripheral vascular disease) (HCC) Peripheral vascular disease, unspecified documented in this encounter Care Teams Electrotype Servicer Relationship Specialty Start Date End Date Anahy Grayson MD [address] [place] [facility] [place] [place] [address] PCP - General Internal Medicine 01/27/22 documented as of this encounter
--- OUTSIDE RECORDS SUMMARY | 2023-08-13 00:11 | External Medical Summary | Summary of Care ---
Author Name Unknown Organization [facility] Address [address] [place] [address] Phone [phone] Care Team Providers Care Database Modeler Name Role Phone Anahy Grayson MD Primary Care Provider [phone] Reason for Visit * Reason Comments [facility]: Maintenance Encounter Details Date Type Department Care Team (Late st Contact Info) Description 07/18/2023 4:00 PM EST [facility] Visit [facility], [facility] [place] [address] Cindy Underwood RN 132 [facility] [place] [address] Allergies No known active allergiesdocumented as of this encounter (statuses as of 07/18/2023) Medications Medication Sig Dispensed Refills Start Date End Date Status Aspirin 81 MG Oral Tablet Delayed Release Take 1 Tablet by mouth in the morning. 0 Active Spiriva Respimat 2.5 MCG/ACT Inhalation Aerosol Solution (Tiotropium [place] Monohydrate) Inhale by mouth 2 Puffs in [...] Oral Tablet (Crestor)Indication s:Coronary artery disease involving [place] coronary artery of [place] heart without angina pectoris,HFrEF (heart failure with [...] multiple sites with positive rheumatoid factor ([facility]) Take one to two tablets by mouth daily for rheumatoid arthritis. 60 Tablet 2 03/05/2023 Active Additional Information Patient taking differently: 10 mg Oral DAILY PRN, flare up for RA, Take one to two tablets by mouth daily for rheumatoid arthritis as needed, Reported on 04/20/2023 Sarilumab 200 MG/1.14ML Subcutaneous Solution Auto-injector (Trippy Bandzzara)Indication s:Rheumatoid arthritis involving multiple sites with positive rheumatoid factor ([facility]) Inject 1.14 mL under the skin every 14 days. 2.28 mL 11 03/05/2023 Active Omeprazole 40 MG Oral Capsule Delayed Release (PriLOSEC) Take 1 Capsule by mouth in the morning. 1 hour before the first meal of the day.. 90 Capsule 3 03/15/2023 Active Sildenafil Citrate 20 MG Oral Tablet (Revatio)Indication s:Raynaud's disease with gangrene ([facility]) TAKE ONE TABLET BY MOUTH [...] (heart failure with reduced ejection fraction) ([facility]) TAKE 1 TABLET BY MOUTH EVERY MORNING 90 Tablet 3 05/08/2023 Active Furosemide 20 MG Oral Tablet (Lasix)Indications: HFrEF (heart failure with reduced ejection fraction) ([facility]) Take 2 Tablets by mouth in the morning. 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 [facility] Visit Date: 07/18/2023 Time: 2:46 PM Name: Harrison Morgan : 1965 Current Concerns: Pt seen for return RNCM visit Has CT scan tomorrow for abdominal aorta Has been having issues with worsening blood flow to right great toe Saw vascular last week but has since worsened with pain, cold to touch, black spreading Also has a black spot on tip of left middle finger Has had this in the past on right hand and had to have an amputation done Pics below of right great toe and left middle finger TE sent to vascular regarding worsening of great toe and new area on finger Does have appt with vascular surgery next week Labs of Cr, CMP drawn from right hand Unable to obtain from attempts of RAC and LAC Blood work taken to [facility] Physical Exam: BP 102/62 | Pulse 96 | Temp 36.4 C (97.6 F) | Resp 18 | Wt 89.4 kg (197 lb) | SpO2 99% | BMI 29.95 kg/m | BSA 2.07 m Pain 5 Physical Exam Cardiovascular: Rate and Rhythm: Normal rate and regular rhythm. Pulses: Normal pulses. Heart sounds: Normal heart sounds. Pulmonary: Effort: Pulmonary effort is normal. Breath sounds: Normal breath sounds. Abdominal: Palpations: Abdomen is soft. Skin: General: Skin is warm and dry. Neurological: Mental Status: He is alert and oriented to person, place, and time. Problems/Symptoms: Review of Systems Constitutional: Negative. HENT: Negative. Eyes: Negative. Respiratory: Positive for shortness of breath (arevalo - at baseline). Gastrointestinal: Negative. Genitourinary: Negative. Musculoskeletal: Positive for arthralgias, back pain and gait problem. Skin: Positive for color change (right great toe). Psychiatric/Behavioral: Negative. Medication Reconciliation: (See medication list) Does patient take medications as ordered: Yes Patient Well Being: PHQ2/9: No questionnaires available. No change in living situation Denies falls [facility]-10 Completed this Visit: No. Routine visit and No falls since last visit Advanced Care Planning: No documentation, acp on file. Reinforcement/Education: Educated on home safety: Create a fall proof home Clear floors of clutter, loose wires, throw rugs, and cords. Make sure halls, stairways, and entrances are well lit. Install a nightlight in your bedroom, hallway and bathroom. Install grab bars or handrails in the bathroom and on stairs. Use a non-skid tub/shower mat. Avoid climbing on a chair; instead use a step stool with a high handrail. Keep sidewalks and steps in good repair Keep steps and sidewalks free of snow and ice. Using aids to support and prevent falls If you have poor balance or have fallen in the past, consider additional support such as a cane or walker. Use a cane with good support and that is the proper length for you. Use a walker if a cane doesnt provide enough support. Avoid medications that increase the risk of falling by causing dizziness, change in sensation or slowed reflexes. Certain medicines may cause falls - blood pressure pills, heart medicines, water pills, or sleepingpills. Be sure to understand each medicine that you are taking and any side effects that may occur. Improve your balance and flexibility with muscle strengthening exercises. Ask your health care provider for some exercises that will be right for you. Reviewed HF symptom monitoring: -Weigh self daily in am, post-void and record -Do not add salt to food, avoid foods high in sodium -Limit fluids to 2 liters per day -Report the following: ->2 lb weight gain in one day or 5 lbs in a week to PCP -increased edema in feet, abdomen or hands -increased SOB and cough, especially if at night -increased fatigue or vertigo Reinforced safety education and fall prevention. and Reinforced medication regimen. Timing., Dosing., and Purspose. Treatment/Plan: Continue meds as prescribed Daily wts and record Low na diet Elevate LE as much as possible F/u with vascular Fall precautions- use cane at all times F/u with rheumatology for RA F/u with pulmonology F/u with neurology Home Interventions Provided: Labs/Specimen Collection Performed CR, CMP Home Intervention: Other; eval Consulted PCP/Specialist Reinforced current Plan of Care, including self-management and medication regimen Patient's 'Red Flags': Wt gain of 3 lbs in 24 hrs or 5 lbs in one week Increased SOB Open wounds Patient Needs to Remember: Call [facility] at with any new or worsening health concerns or problems, red flag symptoms. Referrals Needed: Other none Follow Up: Is there cellular connectivity/connectivity in the home? Yes Does the patient have internet in the home? Yes Patient encouraged to call the intake phone number for all urgent but not emergent issues. Is the patient new to [facility] within the last 30 days? No, Assess appropriateness for upcoming telehealth visits. Cancel telehealth visits & schedule home visit with care steam conditioning operator(s)as indicated. Provider is in agreement with Plan of Care: Yes Scheduled to follow up with patient in 3-4 weeks. Cindy Underwood RN 07/18/2023 2:46 PM documented in this encounter Plan of Treatment Upcoming Encounters Date Type Department Care Team (Late st Contact Info) Description 07/19/2023 4:00 PM EST Imaging Radiology [facility] [address] [facility] 132 [facility] [place] [address] 07/25/2023 10:50 AM EST Office Visit Vascular Surgery, [facility] [address] [place] [address] Galo Gold MD [address] [place] [address] 08/17/2023 4:00 PM EDT Home Visit [facility], [facility] [address] [place] [address] Cindy Underwood RN 132 [facility] [place] [address] 08/21/2023 12:30 PM EDT Therapy Neuropsychology [facility] 200 [facility] [place] [address] Logan Morlaes, PhD 200 [facility] [place] [address] 09/11/2023 9:40 AM EDT Office Visit Rheumatology [place] [address] [facility] [place] [address] Jimmy Giang MD [facility] [place] [address] 09/13/2023 8:40 AM EDT Office Visit Neurology [facility] 200 [facility] [place] [address] Aparna Ruano PA-C 200 [facility] [place] [address] 09/17/2023 1:40 PM EDT Office Visit [facility] [address] [place] [address] Anahy Grayson MD [address] [place] [address] Scheduled Procedures Name Priority Associated [...] D LEVEL ONCE IN A LIFETIME-USE SMARTSET# [id number] Completed 08/04/2021 GARDASIL-HPV IMMUNIZATION SERIES Aged Out No longer eligible based on patient's age to complete this topic MENINGOCOCCAL (MENACTRA/MENVEO) Aged Out No longer eligible based on patient's age to complete this topic documented as of this encounter Medical Devices Not on filedocumented as of this encounter Care Teams Database Modeler Relationship Specialty Start Date End Date Anahy Grayson MD [address] [place] [facility] [place] [address] PCP - General Internal Medicine 01/27/22 documented as of this encounter
--- OUTSIDE RECORDS SUMMARY | 2023-08-13 00:11 | External Medical Summary | Summary of Care ---
Author Name Unknown Organization [facility] Address [address] [place] [address] Phone [phone] Care Team Providers Care Lodging Facilities Manager Name Role Phone Anahy Grayson MD Primary Care Provider [phone] Reason for Referral * Precert (Within 10 days (routine)) - Authorized Specialty Diagnoses / Procedures Referred By Contac t Referred To Contact Cardiac Studies Diagnoses PAD (peripheral artery disease) (HCC) Cardiomyopathy, unspecified type (HCC) SVT (supraventricular tachycardia) Chronic systolic heart failure (HCC) Procedures ECHO, COMPLETE (2D), TRANS-THORACIC Randall Palencia PA-C [address] [place] [address] Referral ID Status Reason Start Date Expiration Date V isits Requested Visits Authorized [id number] Authorized Precert 07/19/2023 999 999 Reason for Visit * Reason Onset Date Comments [facility]: Maintenance 07/18/2023 Encounter Details Date Type Department Care Team (Late st Contact Info) Description 07/18/2023 Telephone [facility], [facility] [address] [facility] [place] [address] Cindy Underwood, RN [address] [place] [address] [facility]: Maintenance Allergies No known active allergiesdocumented as of this encounter (statuses as of 07/19/2023) Medications Medication Sig Dispensed Refills Start Date End Date Status Aspirin 81 MG Oral Tablet Delayed Release Take 1 Tablet by mouth in the morning. 0 Active Spiriva Respimat 2.5 MCG/ACT Inhalation Aerosol Solution (Tiotropium [place] Monohydrate) Inhale by mouth 2 Puffs in [...] Oral Tablet (Crestor)Indication s:Coronary artery disease involving [place] coronary artery of [place] heart without angina pectoris,HFrEF (heart failure with [...] 04/20/2023 Sarilumab 200 MG/1.14ML Subcutaneous Solution Auto-injector ([employer])Indication s:Rheumatoid arthritis involving multiple sites with positive [...] Oral Tablet (Revatio)Indication s:Raynaud's disease with gangrene (HCC) TAKE ONE TABLET [...] with positive rheumatoid factor ([facility]),DDD (degenerative disc disease), lumbar,Thoracic compression fracture, closed, initial encounter ([facility]),Old tear of lateral meniscus of knee, unspecified laterality, unspecified tear type Take 1 Tablet by mouth every 6 hours as needed for Pain, Severe or Pain, Moderate. 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 Lange- It appears that pt cancelled his 07/25 appointment. I called pt's cell, left VM to call us back. His CTA Abd/Pelvis is still scheduled for 5 pm today * Telephone Encounter - Randall Palencia PA-C - 07/19/2023 3:[address] Lange- Pt had a CT of chest last month, showed some mild calcified plaque of underside of aortic arch He is getting CTA Abd/Pelvis today, @ [facility] [address] Gold and I are due to see patient in F/U @ [facility] on 07/25 Tracie- Please arrange for [facility] ECHO, BO * Telephone Encounter - Cindy Underwood RN - 07/18/2023 2:57 PM EST Images from the original note were not included. Good afternoon, Pt is having worsening pain of right great toe. The black area is spreading and cold to touch. This has worsened since his visit with you last week. He also has a new black spot on his left middle finger. See pics below. Please advise. Thank you! documented in this encounter Plan of Treatment Upcoming Encounters Date Type Department Care Team (Late st Contact Info) Description 07/19/2023 5:00 PM EST Imaging Radiology [facility] [address] [facility] [place] [address] [facility] [place] [address] 08/17/2023 4:00 PM EDT Home Visit [facility], [facility] [address] [facility] [place] [address] Cindy Underwood, RN 132 [facility] [place] [address] 08/21/2023 12:30 PM EDT Therapy Neuropsychology [facility] 200 [facility] [place] [address] Logan Morales, PhD [facility] [address] 09/11/2023 9:40 AM EDT Office Visit Rheumatology [address] [place] [address] Jimmy Giang MD [address] [place] [address] [place], [place] [address] 09/13/2023 8:40 AM EDT Office Visit Neurology [facility] [address] [facility] [place] [address] Aparna Ruano PA-C [address] [facility] [place] [address] 09/17/2023 1:40 PM EDT Office Visit [facility] [address] [place] [facility] [place] [id number] Anahy Grayson MD [address] [facility] [place] [id number] Scheduled Orders Name Type Priority Associated Diagnoses Orde r Schedule ECHO, COMPLETE (2D), TRANS-THORACIC Echocardiology Routine PAD (peripheral artery disease) (HCC) Cardiomyopathy, unspecified type (HCC) SVT (supraventricular tachycardia) Chronic systolic heart failure (HCC) Ordered: 07/19/2023 Scheduled Procedures Name Priority Associated Diagnoses Date/Ti me COLONOSCOPY FLEXIBLE PROXIMAL DIAGNOSTIC Recall Colon cancer screening Health Maintenance Due Date Last Done Comments DISCUSS TOBACCO CESSATION (REFER TO SMARTSET #8871) 1965 COVID-19 Vaccine (#1) 02/09/1969 Alpha-1 Antitrypsin [...] D LEVEL ONCE IN A LIFETIME-USE SMARTSET# 28024 Completed 08/04/2021 GARDASIL-HPV IMMUNIZATION SERIES Aged Out No longer eligible based on patient's age to complete this topic MENINGOCOCCAL (MENACTRA/MENVEO) Aged Out No longer eligible based on patient's age to complete this topic documented as of this encounter Medical Devices Not on filedocumented as of this encounter Visit Diagnoses Diagnosis PAD (peripheral artery disease) (HCC)- Primary Peripheral vascular disease, unspecified Cardiomyopathy, unspecified type (HCC) SVT (supraventricular tachycardia) Other specified cardiac dysrhythmias Chronic systolic heart failure (HCC) Chronic systolic heart failure documented in this encounter Care Teams Lodging Facilities Manager Relationship Specialty Start Date End Date Anahy Grayson MD [address] [place] [address] PCP - General Internal Medicine 01/27/22 documented as of this encounter
--- OUTSIDE RECORDS SUMMARY | 2023-08-13 00:11 | External Medical Summary | Summary of Care ---
Author Name Unknown Organization [facility] Address [address] [place] [address] Phone [phone] Care Team Providers Care Petrophysicist Name Role Phone Anahy Grayson MD Primary Care Provider [phone] Reason for Referral * Precert (Within 10 days (routine)) - Authorized Specialty Diagnoses / Procedures Referred By Contac t Referred To Contact Cardiac Studies Diagnoses PAD (peripheral artery disease) (HCC) Cardiomyopathy, unspecified type (HCC) SVT (supraventricular tachycardia) Chronic systolic heart failure (HCC) Procedures ECHO, COMPLETE (2D), TRANS-THORACIC Randall Palencia PA-C [address] [place] [address] Referral ID Status Reason Start Date Expiration Date V isits Requested Visits Authorized [id number] Authorized Precert 07/19/2023 999 999 Reason for Visit * Reason Onset Date Comments [facility]: Maintenance 07/18/2023 Encounter Details Date Type Department Care Team (Late st Contact Info) Description 07/18/2023 Telephone [facility], [facility] [address] [facility] [place] [address] Cindy Underwood, RN [address] [place] [address] [facility]: Maintenance Allergies No known active allergiesdocumented as of this encounter (statuses as of 07/20/2023) Medications Medication Sig Dispensed Refills Start Date End Date Status Aspirin 81 MG Oral Tablet Delayed Release Take 1 Tablet by mouth in the morning. 0 Active Spiriva Respimat 2.5 MCG/ACT Inhalation Aerosol Solution (Tiotropium [place] Monohydrate) Inhale by mouth 2 Puffs in [...] Oral Tablet (Crestor)Indication s:Coronary artery disease involving [place] coronary artery of [place] heart without angina pectoris,HFrEF (heart failure with [...] 04/20/2023 Sarilumab 200 MG/1.14ML Subcutaneous Solution Auto-injector ([employer])Indication s:Rheumatoid arthritis involving multiple sites with positive [...] cations:HFrEF (heart failure with reduced ejection fraction) ([facility]) TAKE 1 TABLET BY MOUTH EVERY MORNING 90 Tablet 3 05/08/2023 Active Furosemide 20 MG Oral Tablet (Lasix)Indications: HFrEF (heart failure with reduced ejection fraction) ([facility]) Take 2 Tablets by mouth in the morning. 180 Tablet 3 06/06/2023 Active oxyCODONE-Acetamino phen 5-325 MG Oral Tablet (Percocet)Indicatio ns:Rheumatoid arthritis involving multiple sites with positive rheumatoid factor ([facility]),DDD (degenerative disc disease), lumbar,Thoracic compression fracture, closed, initial encounter ([facility]),Old tear of lateral meniscus of knee, unspecified laterality, unspecified tear type Take 1 Tablet by mouth every 6 hours as needed for Pain, Severe or Pain, Moderate. 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 * Telephone Encounter - Randall Palencia [...] Care Team (Late st Contact Info) Description 07/25/2023 11:30 AM EST Office Visit Vascular Surgery, [facility] [address] [facility] [place] [address] Galo Gold MD [address] [place] [address] 07/26/2023 4:15 PM EST Imaging Radiology [facility] 1st [facility] [address] [facility] [place] [address] 08/09/2023 2:30 PM EDT Cardiac Studies Cardiac Studies, [facility] [address] [place] [address] 08/17/2023 4:00 PM EDT [facility] Visit [facility] [place], [facility] [address] [facility] [place] [address] Cindy Underwood RN 132 [facility] [address] 08/21/2023 12:30 PM EDT Therapy Neuropsychology [facility] 200 [facility] [place] [address] Logan Morales, PhD [address] [facility] [place] [address] 09/11/2023 9:40 AM EDT Office Visit Rheumatology [place] [id number] Debbie Corbin [place] [address] Jimmy Giang MD [address] [place] [address] [place] [address] 09/13/2023 8:40 AM EDT Office Visit Neurology [facility] [address] [facility] [place] [address] Aparna Ruano PA-C [address] [place] [address] 09/17/2023 1:40 PM EDT Office Visit [facility] [address] [place] [address] Anahy Grayson MD [address] [place], [place] [id number] Scheduled Orders Name Type Priority Associated Diagnoses [...] D LEVEL ONCE IN A LIFETIME-USE SMARTSET# 92278 Completed 08/04/2021 GARDASIL-HPV IMMUNIZATION SERIES Aged Out [...] failure documented in this encounter Care Teams Petrophysicist Relationship Specialty Start Date End Date Anahy Grayson MD [address] [place] [address] PCP - General Internal Medicine 01/27/22 documented as of this encounter
--- OUTSIDE RECORDS SUMMARY | 2023-08-13 00:11 | External Medical Summary | Summary of Care ---
Author Name Unknown Organization [facility] Address [address] [place] [address] Phone [phone] Care Team Providers Care Adaptive Physical Education Teacher Name Role Phone Anahy Grayson MD Primary Care Provider [phone] Reason for Visit * Reason Onset Date Comments Advice 07/30/2023 Encounter Details Date Type Department Care Team (Late st Contact Info) Description 07/30/2023 Telephone Vascular Surg [facility], [place] [address] [place] [address] Daphnie Ramirez PA-C [address], [place] [id number] Advice Allergies No known active allergiesdocumented as of this encounter (statuses as of 07/30/2023) Medications Medication Sig Dispensed Refills Start Date End Date Status Aspirin 81 MG Oral Tablet Delayed Release Take 1 Tablet by mouth in the morning. 0 Active Spiriva Respimat 2.5 MCG/ACT Inhalation Aerosol Solution (Tiotropium [place] Monohydrate) Inhale by mouth 2 Puffs in [...] Oral Tablet (Crestor)Indication s:Coronary artery disease involving [place] coronary artery of [place] heart without angina pectoris,HFrEF (heart failure with reduced ejection fraction) ([facility]),HTN, goal below 140/90,Dyslipidemia , goal LDL [...] involving multiple sites with positive rheumatoid factor ([facility]) Inject 1.14 mL under the skin every 14 days. 2.28 mL 11 03/05/2023 Active Omeprazole 40 MG Oral Capsule Delayed Release (PriLOSEC) Take 1 Capsule by mouth in the morning. 1 hour before the first meal of the day.. 90 Capsule 3 03/15/2023 Active Sildenafil Citrate 20 MG Oral Tablet (Revatio)Indication s:Raynaud's disease with gangrene ([facility]) TAKE ONE TABLET BY MOUTH EVERY MORNING , 1 TABLET AT NOON AND 2 TABLETS BEFORE BEDTIME 90 Tablet 2 03/30/2023 Active sulfaSALAzine 500 MG Oral Tablet Delayed Release (Azulfidine Entab) Take 1 Tablet by mouth in the morning. 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 06/23/2022 Scoliosis 06/23/2022 SVT [...] 10:50 AM EST Office Visit Vascular Surgery, [facility] [address] [facility] [place] [address] Galo Gold MD [address] [place] [address] 08/01/2023 12:00 PM EST Imaging [facility] [address] [facility] [place] [address] 08/09/2023 2:30 PM EDT Cardiac Studies Cardiac Studies, [facility] [address] [facility] [place] [address] 08/17/2023 4:00 PM EDT [facility] [place] [address] [place] [address] Cindy Underwood, RN [address] [facility] [place] [address] 08/21/2023 12:30 PM EDT Therapy Neuropsychology [place], [place] [address] [place] [address] Logan Morales, PhD 200 [facility] [place] [address] 08/28/2023 9:00 AM EDT Office Visit Rheumatology [address] [place] [address] Jimmy Giang MD [facility] [employer] [place] [address] 09/13/2023 8:40 AM EDT Office Visit Neurology [facility] 200 [facility] [place] [address] Aparna Ruano PA-C 200 [facility] [place] [address] 09/17/2023 1:40 PM EDT Office Visit [facility] [address] [place] [phone] Anahy Grayson MD [address] [place] [address] Scheduled Procedures Name Priority Associated Diagnoses Date/Ti me COLONOSCOPY FLEXIBLE PROXIMAL DIAGNOSTIC Recall Colon cancer screening Health Maintenance Due Date Last Done Comments DISCUSS TOBACCO CESSATION (REFER TO SMARTSET #7741) 1965 COVID-19 Vaccine (#1) 02/09/1969 Alpha-1 Antitrypsin [...] D LEVEL ONCE IN A LIFETIME-USE SMARTSET# 40831 Completed 08/04/2021 GARDASIL-HPV IMMUNIZATION SERIES Aged Out No longer eligible based on patient's age to complete this topic MENINGOCOCCAL (MENACTRA/MENVEO) Aged Out No longer eligible based on patient's age to complete this topic documented as of this encounter Medical Devices Not on filedocumented as of this encounter Care Teams Adaptive Physical Education Teacher Relationship Specialty Start Date End Date Anahy Grayson MD [address] [place] [address] PCP - General Internal Medicine 01/27/22 documented as of this encounter
--- OUTSIDE RECORDS SUMMARY | 2023-08-13 00:11 | External Medical Summary | Summary of Care ---
Author Name Unknown Organization [facility] Address [address] [place] [address] Phone [phone] Care Team Providers Care Pharmaceutical Process Engineer Name Role Phone Anahy Grayson MD Primary Care Provider [phone] Reason for Referral * Precert (Within 10 days (routine)) - Authorized Specialty Diagnoses / Procedures Referred By Contac t Referred To Contact Cardiac Studies Diagnoses PAD (peripheral artery disease) (HCC) Cardiomyopathy, unspecified type (HCC) SVT (supraventricular tachycardia) Chronic systolic heart failure (HCC) Procedures ECHO, COMPLETE (2D), TRANS-THORACIC Randall Palencia PA-C [address] [place] [address] Referral ID Status Reason Start Date Expiration Date V isits Requested Visits Authorized [id number] Authorized Precert 07/19/2023 999 999 Reason for Visit * Reason Onset Date Comments [facility]: Maintenance 07/18/2023 Encounter Details Date Type Department Care Team (Late st Contact Info) Description 07/18/2023 Telephone [facility], [facility] 132 [facility] [place] [address] Cindy Underwood, RN [address] [place] [address] [facility]: Maintenance Allergies No known active allergiesdocumented as of this encounter (statuses as of 07/19/2023) Medications Medication Sig Dispensed Refills Start Date End Date Status Aspirin 81 MG Oral Tablet Delayed Release Take 1 Tablet by mouth in the morning. 0 Active Spiriva Respimat 2.5 MCG/ACT Inhalation Aerosol Solution (Tiotropium [place] Monohydrate) Inhale by mouth 2 Puffs in [...] Oral Tablet (Crestor)Indication s:Coronary artery disease involving [place] coronary artery of [place] heart without angina pectoris,HFrEF (heart failure with [...] 04/20/2023 Sarilumab 200 MG/1.14ML Subcutaneous Solution Auto-injector ([employer])Indication s:Rheumatoid arthritis involving multiple sites with positive [...] sites with positive rheumatoid factor ([facility]),DDD (degenerative disc disease), lumbar,Thoracic compression fracture, closed, initial encounter ([facility]),Old tear of lateral meniscus of [...] see patient in F/U @ [facility] on 07/25- Please arrange for [facility] ECHO, BO * [...] Description 07/19/2023 5:00 PM EST Imaging Radiology [facility] 1st [facility] [address] [place] [address] 08/17/2023 4:00 PM EDT [facility] [address] [place] [address] Cindy Underwood RN 132 [facility] [place] [address] 08/21/2023 12:30 PM EDT Therapy Neuropsychology [facility] 200 [facility] [place] [address] Logan Morales, PhD 200 [facility] [place] [address] 09/11/2023 9:40 AM EDT Office Visit Rheumatology [address] [place], [place] [address] Jimmy Giang MD [facility] [place], [place] [address] 09/13/2023 8:40 AM EDT Office Visit Neurology [facility] [address] [facility] [place] [address] Aparna Ruano PA-C [address] [facility] [place] [address] 09/17/2023 1:40 PM EDT Office Visit [facility] [address] [place] [address] Anahy Grayson MD [address] [place] [address] Scheduled Orders Name Type Priority [...] Comments DISCUSS TOBACCO CESSATION (REFER TO SMARTSET #2423) 1965 COVID-19 Vaccine (#1) 02/09/1969 Alpha-1 Antitrypsin [...] D LEVEL ONCE IN A LIFETIME-USE SMARTSET# 46927 Completed 08/04/2021 GARDASIL-HPV IMMUNIZATION SERIES Aged Out [...] failure documented in this encounter Care Teams Pharmaceutical Process Engineer Relationship Specialty Start Date End Date Anahy Grayson MD [address] [place] [facility] [place] [address] PCP - General Internal Medicine 01/27/22 documented as of this encounter
--- OUTSIDE RECORDS SUMMARY | 2023-08-13 00:11 | External Medical Summary | Summary of Care ---
Author Name Unknown Organization [facility] Address [address] [place] [address] Phone [phone] Care Team Providers Care Wad Blanking Press Adjuster Name Role Phone Anahy Grayson MD Primary Care Provider [phone] Reason for Visit * Reason Onset Date Comments Vascular Study 07/27/2023 Encounter Details Date Type Department Care Team (Late st Contact Info) Description 07/27/2023 Telephone Vascular Surgery, [facility] 132 [facility] [place] [address] Randall Palencia PA-C [address] [place] [address] Vascular Study Allergies No known active allergiesdocumented as of this encounter (statuses as of 07/27/2023) Medications Medication Sig Dispensed Refills Start Date End Date Status Aspirin 81 MG Oral Tablet Delayed Release Take 1 Tablet by mouth in the morning. 0 Active Spiriva Respimat 2.5 MCG/ACT Inhalation Aerosol Solution (Tiotropium [place] Monohydrate) Inhale by mouth 2 Puffs in [...] Oral Tablet (Crestor)Indication s:Coronary artery disease involving ute coronary artery of ute heart without angina pectoris,HFrEF (heart failure with [...] involving multiple sites with positive rheumatoid factor ([facility]) Take one to two tablets by mouth daily for rheumatoid arthritis. 60 Tablet 2 03/05/2023 Active Additional Information Patient taking differently: 10 mg Oral DAILY PRN, flare up for RA, Take one to two tablets by mouth daily for rheumatoid arthritis as needed, Reported on 04/20/2023 Sarilumab 200 MG/1.14ML Subcutaneous Solution Auto-injector (Kevzara)Indication s:Rheumatoid arthritis involving multiple sites with positive rheumatoid factor ([facility]) Inject 1.14 mL under the skin every 14 days. 2.28 mL 11 03/05/2023 Active Omeprazole 40 MG Oral Capsule Delayed Release (PriLOSEC) Take 1 Capsule by mouth in the morning. 1 hour before the first meal of the day.. 90 Capsule 3 03/15/2023 Active Sildenafil Citrate 20 MG Oral Tablet (Revatio)Indication s:Raynaud's disease with gangrene ([facility]) TAKE ONE TABLET BY MOUTH EVERY MORNING , 1 TABLET AT NOON AND 2 TABLETS BEFORE BEDTIME 90 Tablet 2 03/30/2023 Active sulfaSALAzine 500 MG Oral Tablet Delayed Release (Azulfidine Entab) Take 1 Tablet by mouth in the morning. 0 Active Jardiance 10 MG Oral Tablet (Empagliflozin)Nalini cations:HFrEF (heart failure with reduced ejection fraction) ([facility]) TAKE 1 TABLET BY MOUTH EVERY MORNING 90 Tablet 3 05/08/2023 Active Furosemide 20 MG Oral Tablet (Lasix)Indications: HFrEF (heart failure with reduced ejection fraction) ([facility]) Take 2 Tablets by mouth [...] Diagnosed Date Food insecurity 01/08/2023 Overview: Per [facility] Protocol Senile osteoporosis 01/04/2023 Lung nodules [...] 10:50 AM EST Office Visit Vascular Surgery, [facility] 132 [facility] [place] [address] Galo Gold MD [address] [place] [address] 08/09/2023 2:30 PM EDT Cardiac Studies Cardiac Studies, [facility] 132 [facility] [place] [address] 08/17/2023 4:00 PM EDT [facility] 132 [facility] [place] [address] Cindy Underwood, RN 132 [facility] [place] [address] 08/21/2023 12:30 PM EDT Therapy Neuropsychology [facility] 200 [facility] [place] [place] [address] Logan Morales, PhD 200 [facility] [place] [address] 08/28/2023 9:00 AM EDT Office Visit Rheumatology [address] [place] [address] Jimmy Giang MD [facility] [employer] [facility] [place] [address] 09/13/2023 8:40 AM EDT Office Visit Neurology [facility] [place] 200 [facility] [place] [address] Aparna Ruano PA-C 200 [facility] [place] [address] 09/17/2023 1:40 PM EDT Office Visit [facility] [address] [place] [facility] [place] [address] Anahy Grayson MD [address] [place] [facility] [place] [address] Scheduled Orders Name Type Priority Associated [...] Comments DISCUSS TOBACCO CESSATION (REFER TO SMARTSET #3370) 1965 COVID-19 Vaccine (#1) 02/09/1969 Alpha-1 Antitrypsin [...] D LEVEL ONCE IN A LIFETIME-USE SMARTSET# 02849 Completed 08/04/2021 GARDASIL-HPV IMMUNIZATION SERIES Aged Out [...] unspecified documented in this encounter Care Teams Wad Blanking Press Adjuster Relationship Specialty Start Date End Date Anahy Grayson MD [address] [place] [address] PCP - General Internal Medicine 01/27/22 documented as of this encounter
--- OUTSIDE RECORDS SUMMARY | 2023-08-13 00:11 | External Medical Summary ---
Author Name Unknown Address Unknown Organization K01:LABORATORY [facility] - 100 [facility] [place] [address] Laboratory Report Ordering Provider Test Date Status [facility] 07/18/2023 15:30:00 Final Observation Date Value Abnormality Reference (Units ) Status BUN 07/18/2023 15:30:00 27 Above high normal 6-20 (mg/dL) Final Creatinine 07/18/2023 15:30:00 1.1 0.6-1.2 (mg/dL) Final Glomerular filtration rate/1.73 sq M.predicted [Volume Rate/Area] in Serum, Plasma or Blood by Creatinine-based formula (CKD-EPI) 07/18/2023 15:30:00 81 >=60 (mL/min) Final eGFR is calculated based on the CKD-EPI 2020 equation SODIUM 07/18/2023 15:30:00 140 135-146 (m mol/L) Final Potassium 07/18/2023 15:30:00 4.5 3.5-5.1 (m mol/L) Final Cl 07/18/2023 15:30:00 102 98-107 (mm ol/L) Final CO2 07/18/2023 15:30:00 24 22-32 (mmo l/L) Final Anion gap 07/18/2023 15:30:00 14 7-15 (mmol /L) Final Glucose 07/18/2023 15:30:00 116 70-120 (mg /dL) Final Albumin 07/18/2023 15:30:00 4.2 3.8-5.0 (g /dL) Final AST (Aspartate aminotransferase) 07/18/2023 15:30:00 15 10-50 (U/L) Final Alk Phos 07/18/2023 15:30:00 71 35-130 (U/ L) Final Bilirubin, Total 07/18/2023 15:30:00 0.3 <=1 .2 (mg/dL) Final Calcium 07/18/2023 15:30:00 10.0 8.4-10.2 ( mg/dL) Final Protein 07/18/2023 15:30:00 6.4 6.0-8.3 (g /dL) Final ALT (Alanine aminotransferase) 07/18/2023 15:30:00 17 10-50 (U/L) Final Performing Location LABORATORY [facility] - [facility] [address] [facility] [address]
--- OUTSIDE RECORDS SUMMARY | 2023-08-13 00:11 | External Medical Summary | Summary of Care ---
Author Name Unknown Organization [facility] Address [address] [place] [address] Phone [phone] Care Team Providers Care Clinical Microbiologist Name Role Phone Anahy Grayson MD Primary Care Provider [phone] Reason for Visit * Reason Onset Date Comments Vascular Study 07/27/2023 Encounter Details Date Type Department Care Team (Late st Contact Info) Description 07/27/2023 Telephone Vascular Surgery, [facility] 132 [facility] [place] [address] Randall Palencia PA-C [address] [place] [address] Vascular Study Allergies No known active allergiesdocumented as of this encounter (statuses as of 07/27/2023) Medications Medication Sig Dispensed Refills Start Date End Date Status Aspirin 81 MG Oral Tablet Delayed Release Take 1 Tablet by mouth in the morning. 0 Active Spiriva Respimat 2.5 MCG/ACT Inhalation Aerosol Solution (Tiotropium [place] Monohydrate) Inhale by mouth 2 Puffs in [...] Oral Tablet (Crestor)Indication s:Coronary artery disease involving [place] coronary artery of [place] heart without angina pectoris,HFrEF (heart failure [...] rheumatoid factor ([facility]) Take one to two tablets by [...] rheumatoid factor ([facility]) Inject 1.14 mL under the skin every 14 days. 2.28 mL 11 03/05/2023 Active Omeprazole 40 MG Oral Capsule Delayed Release (PriLOSEC) Take 1 Capsule by mouth in the morning. 1 hour before the first meal of the day.. 90 Capsule 3 03/15/2023 Active Sildenafil Citrate 20 MG Oral Tablet (Revatio)Indication s:Raynaud's disease with gangrene ([facility]) TAKE ONE TABLET BY MOUTH EVERY MORNING , 1 TABLET AT NOON AND 2 TABLETS BEFORE BEDTIME 90 Tablet 2 03/30/2023 Active sulfaSALAzine 500 MG Oral Tablet Delayed Release (Azulfidine Entab) Take 1 Tablet by mouth in the morning. 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 * Telephone Encounter - Randall Palencia PA-C - 07/27/2023 8:33 AM EST Tracie- We are due to see pt in F/U at s on , 07/31 Based upon yesterday's CTA [...] 10:50 AM EST Office Visit Vascular Surgery, [facility] 132 [facility] [place] [address] Galo Gold MD [address] [facility] [address] 08/01/2023 12:00 PM EST Imaging [facility] [address] [place] [address] 08/09/2023 2:30 PM EDT Cardiac Studies Cardiac Studies, [facility] 132 [facility] [place] [address] 08/17/2023 4:00 PM EDT Home Visit [facility] [address] [place] [address] Cindy Underwood, RN [address] [place] [address] 08/21/2023 12:30 PM EDT [facility] [place] 200 [facility] [place] [address] Logan Morales, PhD 200 [facility] [place] [address] 08/28/2023 9:00 AM EDT Office Visit Rheumatology [facility] [address] [facility] [place] [address] Jimmy Giang MD [address] [facility] [place] [address] 09/13/2023 8:40 AM EDT Office Visit Neurology [facility] 200 [facility] [place] [address] Aparna Ruano PA-C 200 [facility] [place] [address] 09/17/2023 1:40 PM EDT Office Visit [facility] [address] [place] [address] Anahy Grayson MD [address] [place] [address] Scheduled Orders Name Type Priority [...] Comments DISCUSS TOBACCO CESSATION (REFER TO SMARTSET #7664) 1965 COVID-19 Vaccine (#1) 02/09/1969 Alpha-1 Antitrypsin [...] D LEVEL ONCE IN A LIFETIME-USE SMARTSET# [id number] Completed 08/04/2021 GARDASIL-HPV IMMUNIZATION SERIES Aged Out [...] unspecified documented in this encounter Care Teams Clinical Microbiologist Relationship Specialty Start Date End Date [facility]y Grayson [facility] [address] PCP - General Internal Medicine 01/27/22 documented as of this encounter
--- OUTSIDE RECORDS SUMMARY | 2023-08-13 00:11 | External Medical Summary | Summary of Care ---
Author Name Unknown Organization [facility] Address [address] [facility] [address] Phone [phone] Care Team Providers Care Pump Servicer Supervisor Name Role Phone Anahy Grayson MD Primary Care Provider [phone] Reason for Visit * Reason Onset Date Comments [facility]: Maintenance 05/22/2023 Encounter Details Date Type Department Care Team (Late st Contact Info) Description 05/22/2023 Telephone [facility], [facility] [place] [address] Cindy Underwood RN [address] [place] [address] [facility]: Maintenance Allergies No known active allergiesdocumented as of this encounter (statuses as of 07/24/2023) Medications Medication Sig Dispensed Refills Start Date End Date Status Aspirin 81 MG Oral Tablet Delayed Release Take 1 Tablet by mouth in the morning. 0 Active Spiriva Respimat 2.5 MCG/ACT Inhalation Aerosol Solution (Tiotropium [place] Monohydrate) Inhale by mouth 2 Puffs in the morning. 4 g 11 2 Active Vitamin D3 10 MCG (400 UNIT) Oral Tablet Take 1 Tablet by mouth in the morning. 0 Active Centrum Silver 50+Men Oral Tablet Take 1 Tablet by mouth in the morning. 0 Active oxygen IN GAS Use 2 L/min(Oxygen) as directed. 0 Active Entresto 24-26 MG Oral Tablet (sacubitril-vals evangelist 24-26 mg per tab) Take 1 Tablet by mouth in the morning and 1 Tablet before bedtime. 180 Tablet 3 3 Active Metoprolol Succinate ER 100 MG Oral Tablet Extended Release 24 Hour (toPROL XL) Take 1 Tablet by mouth in the morning and 1 Tablet before bedtime. 180 Tablet 3 3 Active Digoxin 125 MCG Oral Tablet (Lanoxin) Take 1 Tablet by mouth in the morning. 34 Tablet 11 3 Active Eliquis 5 MG Oral Tablet (Apixaban)Indica tions:Persistent atrial fibrillation (HCC) TAKE ONE TABLET BY MOUTH 2 TIMES A DAY 180 Tablet 3 3 Active Metoprolol Succinate ER 25 MG Oral Tablet Extended Release 24 Hour (toPROL XL) Take 1 Tablet by mouth in the morning and 1 Tablet before bedtime. In addition to 100 mg daily. Total of 125 mg twice per day.. 180 Tablet 3 3 Active Spironolactone 25 MG Oral Tablet (Aldactone) Take 0.5 Tablets by mouth in the morning. 15 Tablet 5 3 Active Rosuvastatin Calcium 5 MG Oral Tablet (Crestor)Indicat ions:Coronary artery disease involving deering coronary artery of deering heart without angina pectoris,HFrEF (heart failure with reduced ejection fraction) ([facility]),HTN, goal below 140/90,Dyslipide leigh, goal LDL below 70,Palpitations TAKE ONE TABLET BY MOUTH EVERY MORNING 30 Tablet 3 Active Alendronate Sodium 70 MG Oral Tablet (Fosamax) Take 1 Tablet by mouth once a week. 4 Tablet 12 3 Active Nitroglycerin 0.4 MG Sublingual Tablet Sublingual (Nitrostat) Place 1 Tablet under the tongue every 5 minutes as needed for Pain, Chest. up to 3 doses in 15 minutes 25 Tablet 3 Active DULoxetine HCl 30 MG Oral Capsule Delayed Release Particles (Cymbalta) Take 1 Capsule by mouth in the morning. Do not cut, crush or chew. 30 Capsule 5 3 Active Ondansetron HCl 4 MG Oral Tablet Take 1 Tablet by mouth every 8 hours as needed for Nausea. 20 Tablet 0 08/15/202 3 Active predniSONE 5 MG Oral Tablet (Deltasone)Indic ations:Rheumatoi d arthritis involving multiple sites with positive rheumatoid factor ([facility]) Take one to two tablets by mouth daily for rheumatoid arthritis. 60 Tablet 2 3 Active Additional Information Patient taking differently: 10 mg Oral DAILY PRN, flare up for RA, Take one to two tablets by mouth daily for rheumatoid arthritis as needed, Reported on 04/20/2023 Sarilumab 200 MG/1.14ML Subcutaneous Solution Auto-injector (Kevzara)Indicat ions:Rheumatoid arthritis involving multiple sites with positive rheumatoid factor ([facility]) Inject 1.14 mL under the skin every 14 days. 2.28 mL 11 3 Active Omeprazole 40 MG Oral Capsule Delayed Release (PriLOSEC) Take 1 Capsule by mouth in the morning. 1 hour before the first meal of the day.. 90 Capsule 3 3 Active Sildenafil Citrate 20 MG Oral Tablet (Revatio)Indicat ions:Raynaud's disease with gangrene ([facility]) TAKE ONE TABLET BY MOUTH EVERY MORNING , 1 TABLET AT NOON AND 2 TABLETS BEFORE BEDTIME 90 Tablet 2 3 Active sulfaSALAzine 500 MG Oral Tablet Delayed Release (Azulfidine Entab) Take 1 Tablet by mouth in the morning. 0 Active Jardiance 10 MG Oral Tablet (Empagliflozin)I ndications:HFrEF (heart failure with reduced ejection fraction) ([facility]) TAKE 1 TABLET BY MOUTH EVERY MORNING 90 Tablet 3 3 Active HYDROcodone-Acet aminophen 10-325 MG Oral Tablet Take 1 Tablet by mouth every 6 hours as needed for Pain, Severe. 90 Tablet 0 3 07/20/19 24 Discontinued Furosemide 20 MG Oral Tablet (Lasix)Indicatio ns:HFrEF (heart failure with reduced ejection fraction) ([facility]) Take 2 Tablets by mouth in the morning. 180 Tablet 3 3 06/06/19 24 Discontinued(Ref ill) oxyCODONE-Acetam inophen 5-325 MG Oral Tablet (Percocet)Indica tions:Rheumatoid arthritis involving multiple sites with positive rheumatoid factor ([facility]),DDD (degenerative disc disease), lumbar,Thoracic compression fracture, closed, initial encounter ([facility]),Old tear of lateral meniscus of knee, unspecified laterality, unspecified tear type Take 1 Tablet by mouth every 6 hours as needed for Pain, Severe or Pain, Moderate. 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 Prednisone, which dose varies based on symptoms. MEDICATION USE AGREEMENT 06/25/2017 Tear of lateral meniscus of knee 02/22/2016 Knee pain 12/27/2015 DJD (degenerative joint disease) 01/15/2014 Erectile dysfunction 01/15/2014 Tobacco use disorder 01/15/2014 documented as of this encounter (statuses as of 07/24/2023) Resolved Problems Problem Noted Date Diagnosed Date [...] Dependence 09/20/2007 1 Routine medical exam 09/20/2007 10/19/2 017 Primary localized osteoarthr osis of shoulder region 03/15/2017 Overview: right Rotator cuff syndrome 2016 Overview: right Tobacco use disorder 018 documented as of this encounter (statuses as of 07/24/2023) Immunizations Name Administration Dates Next Due HepA [...] Used Date Smoking Tobacco: Some Days Cigarettes 1 38 Passive Smoke Exposure: Past Smokeless Tobacco: [...] encounter Miscellaneous Notes * Telephone Encounter - Cindy Underwood RN - 05/22/2023 2:28 PM EST Ramonita Pt has had MRI showing possible past infarcts so CT was ordered and completed. He is wondering what these results mean. Could you please reach out to him and explain results and plan, if any ? Thank you! documented in this encounter Plan of Treatment Upcoming Encounters Date Type Department Care Team (Late st Contact Info) Description 07/26/2023 4:15 PM EST [facility] 132 [facility] [place] [address] 08/01/2023 10:50 AM EST Office Visit Vascular Surgery, [facility] 132 [facility] [place] [address] Galo Gold MD [address] [place] [address] 08/09/2023 2:30 PM EDT Cardiac Studies Cardiac Studies, [facility] [place] [address] 08/17/2023 4:00 PM EDT Home Visit [facility], [facility] 132 [facility] [place] [address] Cindy Underwood RN 132 [place] [address] 08/21/2023 12:30 PM EDT Therapy Neuropsychology [facility] [place] 200 [facility] [place] [address] Logan Morales, PhD 200 [facility] [place] [address] 09/11/2023 9:40 AM EDT Office Visit Rheumatology [address] [place] [address] Jimmy Giang MD [facility] [place] [address] 09/13/2023 8:40 AM EDT Office Visit Neurology [facility] [place] [address] [place] [address] Aparna Ruano PA-C [address] [place] [address] 09/17/2023 1:40 PM EDT Office Visit [facility] [address] [place] [address] Anahy Grayson MD [address] [place], [place] [id number] Scheduled Procedures Name Priority Associated Diagnoses Date/Ti me COLONOSCOPY FLEXIBLE PROXIMAL DIAGNOSTIC Recall Colon cancer screening Health Maintenance Due Date Last Done Comments DISCUSS TOBACCO CESSATION (REFER TO SMARTSET #9575) 1965 COVID-19 Vaccine (#1) 02/09/1969 Alpha-1 Antitrypsin [...] D LEVEL ONCE IN A LIFETIME-USE SMARTSET# [id number] Completed 08/04/2021 GARDASIL-HPV IMMUNIZATION SERIES Aged Out No longer eligible based on patient's age to complete this topic MENINGOCOCCAL (MENACTRA/MENVEO) Aged Out No longer eligible based on patient's age to complete this topic documented as of this encounter Medical Devices Not on filedocumented as of this encounter Care Teams Pump Servicer Supervisor Relationship Specialty Start Date End Date Anahy Grayson MD [address] [place] [address] PCP - General Internal Medicine 01/27/22 documented as of this encounter
--- OUTSIDE RECORDS SUMMARY | 2023-08-13 00:11 | External Medical Summary ---
Author Name Unknown Address Unknown Organization K01:[facility] - [address] [place] [address] Laboratory Report Ordering Provider Test Date Status MILLYKELBYBRISEIDA 07/18/2023 15:30:00 Final Observation Date Value Abnormality Reference (Units ) Status CRP, low-sensitivity 07/18/2023 15:30:00 <3 <=5 (mg/L) Final Performing Location [facility] - [address] [place] [address]
--- OUTSIDE RECORDS SUMMARY | 2023-08-13 00:12 | External Medical Summary | Summary of Care ---
Author Name Unknown Organization [facility] Address [address] [place] [address] Phone [phone] Care Team Providers Care Police Commanding Officer Name Role Phone Anahy Grayson MD Primary Care Provider [phone] Reason for Visit * Reason Onset Date Comments TRIAGE 06/29/2023 Encounter Details Date Type Department Care Team (Late st Contact Info) Description 06/29/2023 Telephone Vascular Surgery, [facility] [address] [place] [address] Services, Scheduling [address] [place] [address] TRIAGE Allergies No known active allergiesdocumented as of this encounter (statuses as of 06/29/2023) Medications Medication Sig Dispensed Refills Start Date End Date Status Aspirin 81 MG Oral Tablet Delayed Release Take 1 Tablet by mouth in the morning. 0 Active Spiriva Respimat 2.5 MCG/ACT Inhalation Aerosol Solution (Tiotropium [place] Monohydrate) Inhale by mouth 2 Puffs in [...] Oral Tablet (Crestor)Indication s:Coronary artery disease involving morongo coronary artery of morongo heart without angina pectoris,HFrEF (heart failure with reduced ejection fraction) ([facility]),HTN, goal below 140/90,Dyslipidemia , goal LDL [...] with positive rheumatoid factor ([facility]) Inject 1.14 mL under the skin every 14 days. 2.28 mL 11 03/05/2023 Active Omeprazole 40 MG Oral Capsule Delayed Release (PriLOSEC) Take 1 Capsule by mouth in the morning. 1 hour before the first meal of the day.. 90 Capsule 3 03/15/2023 Active Sildenafil Citrate 20 MG Oral Tablet (Revatio)Indication s:Raynaud's disease with gangrene ([facility]) TAKE ONE TABLET BY MOUTH EVERY [...] with reduced ejection fraction) ([facility]) TAKE 1 TABLET BY MOUTH EVERY MORNING 90 Tablet 3 05/08/2023 Active oxyCODONE-Acetamino phen 5-325 MG Oral Tablet (Percocet)Indicatio ns:Rheumatoid arthritis involving multiple sites with positive rheumatoid factor ([facility]),DDD (degenerative disc disease), lumbar,Thoracic compression fracture, closed, initial encounter ([facility]),Old tear of lateral meniscus of knee, unspecified laterality, unspecified tear type Take 1 Tablet by mouth every 6 hours as needed for Pain, Severe or Pain, Moderate. 120 Tablet 0 06/04/2023 Active Furosemide 20 MG Oral Tablet (Lasix)Indications: HFrEF (heart failure with reduced ejection fraction) ([facility]) Take 2 Tablets by mouth in the morning. 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 No answer. Left message to return call. If patient is in significant pain he should go to ED and not wait till sunday * Telephone Encounter - Perla Zarco OSA - 06/29/2023 12:46 PM EST Pt calling to set up appt for leg pain. Pt was known to dr Guthrie at [facility]. Pt states he is in a lot of pain but unable to get a ride to [place]. I have him scheduled on SundayJul 02 for a venous duplex at [facility]. Could he be added to the Sunday clinic at [facility]? Please advise Thank you DAYAN Alberto documented in this encounter Plan of Treatment Upcoming Encounters Date Type Department Care Team (Late st Contact Info) Description 07/02/2023 10:30 AM EST Imaging Vascular Lab, [facility] II 2nd Floor, [place] [address] [place] [address] 07/18/2023 4:00 PM EST Home Visit [facility], [facility] [address] [facility] [place] [address] Cindy Underwood, RN [address] [facility] [place] [address] 08/21/2023 12:30 PM EDT Therapy Neuropsychology [facility] [place] [address] [place] [address] Logan Morales, PhD [address] [facility] [place] [address] 09/11/2023 9:40 AM EDT Office Visit Rheumatology [place] [id number] [facility] [address] Jimmy Giang MD [facility] [employer] [facility] [place] [address] 09/13/2023 8:40 AM EDT Office Visit Neurology [facility] [address] [place] [address] Aparna Ruano PA-C [address] [facility] [place] [address] 09/17/2023 1:40 PM EDT Office Visit [facility] [address] [facility] [place] [address] Anahy Grayson MD [address] [facility] [place] [address] Scheduled Procedures Name Priority Associated Diagnoses Date/Ti me COLONOSCOPY FLEXIBLE PROXIMAL DIAGNOSTIC Recall Colon cancer screening Health Maintenance Due Date Last Done Comments DISCUSS TOBACCO CESSATION (REFER TO SMARTSET #3294) 1965 COVID-19 Vaccine (#1) 02/09/1969 Alpha-1 Antitrypsin [...] At-Risk Patients (6 to 64 Years) (3 - PPSV23 or PCV20) 02/11/2025 02/12/2020, 03/21/2019 Diabetes Screening 03/28/2026 03/28/2023, 0 11/16/2022, 10/13/2022, Additional history exists Colonoscopy 07/24/2027 07/24/2017, 07/24/2017 Colorectal Cancer Screening 07/24/2027 Lipid Panel 08/29/2027 08/28/2022, 07/26, 06/06/2021, Additional history exists DTaP,Tdap,and Td Vaccines (2 - Td or Tdap) 02/11/2030 02/12/2020, 03/28/2007 Hepatitis B Completed 05/27/2019, 09/25, 08/26/2018 VITAMIN D LEVEL ONCE IN A LIFETIME-USE SMARTSET# [id number] Completed 08/04/2021 GARDASIL-HPV IMMUNIZATION SERIES Aged Out No longer eligible based on patient's age to complete this topic MENINGOCOCCAL (MENACTRA/MENVEO) Aged Out No longer eligible based on patient's age to complete this topic documented as of this encounter Medical Devices Not on filedocumented as of this encounter Care Teams Police Commanding Officer Relationship Specialty Start Date End Date Anahy Grayson MD [address] [place] [facility] [place] [address] PCP - General Internal Medicine 01/27/22 documented as of this encounter
--- OUTSIDE RECORDS SUMMARY | 2023-08-13 00:12 | External Medical Summary | Summary of Care ---
Author Name Unknown Organization [facility] Address [address] [place] [address] Phone [phone] Care Team Providers Care Horn Player Name Role Phone Anahy Grayson MD Primary Care Provider [phone] Reason for Visit * Reason Onset Date Comments Appointment 06/29/2023 Encounter Details Date Type Department Care Team (Late st Contact Info) Description 06/29/2023 Telephone Vascular Surg [facility] [address] [place] [address] Trinh Hernández PA-C [address] [place] [address] Appointment Allergies No known active allergiesdocumented as of this encounter (statuses as of 07/02/2023) Medications Medication Sig Dispensed Refills Start Date End Date Status Aspirin 81 MG Oral Tablet Delayed Release Take 1 Tablet by mouth in the morning. 0 Active Spiriva Respimat 2.5 MCG/ACT Inhalation Aerosol Solution (Tiotropium [place] Monohydrate) Inhale by mouth 2 Puffs in [...] Oral Tablet (Crestor)Indication s:Coronary artery disease involving nansemond indian tribe coronary artery of nansemond indian tribe heart without angina pectoris,HFrEF (heart failure with [...] multiple sites with positive rheumatoid factor ([facility]) Inject 1.14 mL under the skin every 14 days. 2.28 mL 11 03/05/2023 Active Omeprazole 40 MG Oral Capsule Delayed Release (PriLOSEC) Take 1 Capsule by mouth in the morning. 1 hour before the first meal of the day.. 90 Capsule 3 03/15/2023 Active Sildenafil Citrate 20 MG Oral Tablet (Revatio)Indication s:Raynaud's disease with gangrene ([facility]) TAKE ONE TABLET BY MOUTH EVERY MORNING [...] (heart failure with reduced ejection fraction) ([facility]) TAKE 1 TABLET BY MOUTH EVERY MORNING 90 Tablet 3 05/08/2023 Active oxyCODONE-Acetamino phen 5-325 MG Oral Tablet (Percocet)Indicatio ns:Rheumatoid arthritis involving multiple sites with positive rheumatoid factor (HCC),DDD (degenerative disc disease), lumbar,Thoracic compression fracture, closed, initial encounter ([facility]),Old tear of lateral meniscus of knee, unspecified laterality, unspecified tear type Take 1 Tablet by mouth every 6 hours as needed for Pain, Severe or Pain, Moderate. 120 Tablet 0 06/04/2023 Active Furosemide 20 MG Oral Tablet (Lasix)Indications: HFrEF (heart failure with reduced ejection fraction) ([facility]) Take 2 Tablets by mouth in the morning. 180 Tablet 3 06/06/2023 Active documented as of this encounter (statuses as of 07/02/2023) Active Problems Problem Noted Date Diagnosed Date [...] as of this encounter (statuses as of 07/02/2023) Resolved Problems Problem Noted Date Diagnosed Date [...] syndrome 2016 Overview: right Tobacco use disorder 01/29/2 018 documented as of this encounter (statuses as of 07/02/2023) Immunizations Name Administration Dates Next Due HepA [...] Telephone Encounter - Randall Palencia PA-C - 07/02/2023 9:02 AM EST We can see him Thank you ASHLIE * Telephone Encounter - Tracie Villarreal OSA - 07/02/2023 8:38 AM EST Swapped studies out, let me know when carlos approves the OB and I will schedule pt. * Telephone Encounter - Trinh Hernández PA-C - 06/29/2023 1:56 PM EST Patient called regarding black spot on tip of toe growing and painful. He reports no signs of infection. He has edema in his feet/ankles but no concern for blood clot. Will cancel venous duplex ordered by PCP and get DERRICK instead on 07/02. Will see if Carlos is willing to see patient at on Sunday,otherwise will call with results. Encouraged him to offload. Has history of digital ischemia from small vessel disease, suspect the same with his toe. Please cancel venous duplex on 07/02 and replace with DERRICK with vasospasm if possible. Would a 07/04 appointment have to be an overbook? If so please await Carlos's approval. Thanks More than happy to call patient if this is preference. documented in this encounter Plan of Treatment Upcoming Encounters Date Type Department Care Team (Late st Contact Info) Description 07/02/2023 10:30 AM EST Imaging Vascular Lab, [facility] [address] [facility] [place] [address] 07/18/2023 4:00 PM EST Home Visit [facility] [address] [facility] [place] [address] Cindy Underwood, RN [address] [facility] [place] [address] 08/21/2023 12:30 PM EDT Therapy [facility] [address] [facility] [place] [address] Logan Morales, PhD [address] [facility] [place] [address] 09/11/2023 9:40 AM EDT Office Visit Rheumatology [facility] [address] [facility] [place] [address] Jimmy Giang MD [address] [facility] [place], [place] [address] 09/13/2023 8:40 AM EDT Office Visit Neurology [facility] [address] [facility] [place], [place] [address] Aparna Ruano PA-C [address] [facility] [place] [address] 09/17/2023 1:40 PM EDT Office Visit [facility] [address] [place] [address] Anahy Grayson MD [address] [place] [address] Scheduled Orders Name Type Priority Associated Diagnoses Orde r Schedule VASC ANKLE BRACHIAL INDICES WITH PPG (DIABETIC FOOT/VASOSPASM) Medical Imaging Routine PVD (peripheral vascular disease) (HCC) Expected: 07/06/2023 (Approximate), Expires: 07/27/2025 Scheduled Procedures Name Priority Associated Diagnoses Date/Ti me COLONOSCOPY FLEXIBLE PROXIMAL DIAGNOSTIC Recall Colon cancer screening Health Maintenance Due Date Last Done Comments DISCUSS TOBACCO CESSATION (REFER TO SMARTSET #6173) 1965 COVID-19 Vaccine (#1) 02/09/1969 Alpha-1 Antitrypsin [...] D LEVEL ONCE IN A LIFETIME-USE SMARTSET# [id number] Completed 08/04/2021 GARDASIL-HPV IMMUNIZATION SERIES Aged Out No longer eligible based on patient's age to complete this topic MENINGOCOCCAL (MENACTRA/MENVEO) Aged Out No longer eligible based on patient's age to complete this topic documented as of this encounter Medical Devices Not on filedocumented as of this encounter Visit Diagnoses Diagnosis PVD (peripheral vascular disease) (HCC)- Primary Peripheral vascular disease, unspecified documented in this encounter Care Teams Horn Player Relationship Specialty Start Date End Date Anahy Grayson MD [address] [facility] [place] [place] [address] PCP - General Internal Medicine 01/27/22 documented as of this encounter
--- OUTSIDE RECORDS SUMMARY | 2023-08-13 00:12 | External Medical Summary | Summary of Care ---
Author Name Unknown Organization [facility] Address [address] [place] [address] Phone [phone] Care Team Providers Care Continuous Pickling Line Pickler Name Role Phone Anahy Grayson MD Primary Care Provider [phone] Reason for Visit * Reason Comments Follow Up * Evaluate & Treat - Unlimited Visits (Within 10 days (routine)) - Authorized Specialty Diagnoses / Procedures Referred By Contac t Referred To Contact Vascular Surgery / Cardiovascular Surgery Diagnoses PAD (peripheral artery disease) (HCC) Pain of toe of right foot Pain in both lower extremities Anahy Grayson MD [address] [place] [address] Referral ID Status Reason Start Date Expiration Date Visits Requested Visits Authorized [id number] Authorized Specialty Services Required 06/29/2023 [id number] Encounter Details Date Type Department Care Team (Late st Contact Info) Description 07/04/2023 1:10 PM EST Office Visit Vascular Surgery, [facility] [address] [place] [address] Tre Lange MD [address] [place] [address] Small vessel disease (HCC)*; Tobacco use disorder Allergies No known active allergiesdocumented as of this encounter (statuses as of 07/09/2023) Medications Medication Sig Dispensed Refills Start Date End Date Status Aspirin 81 MG Oral Tablet Delayed Release Take 1 Tablet by mouth in the morning. 0 Active Spiriva Respimat 2.5 MCG/ACT Inhalation Aerosol Solution (Tiotropium [place] Monohydrate) Inhale by mouth 2 Puffs in the morning. 4 g 11 03/21/2022 Active Vitamin D3 10 MCG (400 UNIT) Oral Tablet Take 1 Tablet by mouth in the morning. 0 Active Centrum Silver 50+Men Oral Tablet Take 1 Tablet by mouth in the morning. 0 Active oxygen IN GAS Use 2 L/min(Oxygen) as directed. 0 Active Entresto 24-26 MG Oral Tablet (sacubitril-valsar kaur 24-26 mg per tab) Take 1 Tablet [...] 08/08/2022 Active Eliquis 5 MG Oral Tablet (Apixaban)Indicati ons:Persistent atrial fibrillation (HCC) TAKE ONE TABLET BY [...] Active Rosuvastatin Calcium 5 MG Oral Tablet (Crestor)Indicatio ns:Coronary artery disease involving [place] coronary artery of [place] heart without angina pectoris,HFrEF (heart failure with reduced ejection fraction) (HCC),HTN, goal below 140/90,Dyslipidemi a, goal LDL below 70,Palpitations TAKE ONE TABLET [...] 01/09/2023 Active predniSONE 5 MG Oral Tablet (Deltasone)Indicat ions:Rheumatoid arthritis involving multiple sites with positive rheumatoid factor (HCC) Take one to two tablets by mouth daily for rheumatoid arthritis. 60 Tablet 2 03/05/2023 Active Additional Information Patient taking differently: 10 mg Oral DAILY PRN, flare up for RA, Take one to two tablets by mouth daily for rheumatoid arthritis as needed, Reported on 04/20/2023 Sarilumab 200 MG/1.14ML Subcutaneous Solution Auto-injector (Kevzara)Indicatio ns:Rheumatoid arthritis involving multiple sites with positive rheumatoid factor (HCC) Inject 1.14 mL under the skin every 14 days. 2.28 mL 11 03/05/2023 Active Omeprazole 40 MG Oral Capsule Delayed Release (PriLOSEC) Take 1 Capsule by mouth in the morning. 1 hour before the first meal of the day.. 90 Capsule 3 03/15/2023 Active Sildenafil Citrate 20 MG Oral Tablet (Revatio)Indicatio ns:Raynaud's disease with gangrene (HCC) TAKE ONE TABLET BY MOUTH EVERY MORNING , 1 TABLET AT NOON AND 2 TABLETS BEFORE BEDTIME 90 Tablet 2 03/30/2023 Active HYDROcodone-Acetam inophen 10-325 MG Oral Tablet Take 1 Tablet by mouth every 6 hours as needed for Pain, Severe. 90 Tablet 0 04/17/2023 Active sulfaSALAzine 500 MG Oral Tablet Delayed Release (Azulfidine Entab) Take 1 Tablet by mouth in the morning. 0 Active Jardiance 10 MG Oral Tablet (Empagliflozin)Ind ications:HFrEF (heart failure with reduced ejection fraction) (HCC) TAKE 1 TABLET BY MOUTH EVERY MORNING 90 Tablet 3 05/08/2023 Active Furosemide 20 MG Oral Tablet (Lasix)Indications :HFrEF (heart failure with reduced ejection fraction) ([facility]) Take 2 Tablets by mouth in the morning. 180 Tablet 3 06/06/2023 Active oxyCODONE-Acetamin ophen 5-325 MG Oral Tablet (Percocet)Indicati ons:Rheumatoid arthritis involving multiple sites with positive rheumatoid factor ([facility]),DDD (degenerative disc disease), lumbar,Thoracic compression fracture, closed, initial encounter ([facility]),Old tear of lateral meniscus of knee, unspecified laterality, unspecified tear type Take 1 Tablet by mouth every 6 hours as needed for Pain, Severe or Pain, Moderate. 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 Scoliosis 06/23/2022 [...] as of this encounter (statuses as of 07/09/2023) Resolved Problems Problem Noted Date Diagnosed Date [...] as of this encounter (statuses as of 07/09/2023) Immunizations Name Administration Dates Next Due HepA [...] Sign Reading Time Taken Comments Blood Pressure 110/90 07/04/2023 1:49 PM EST Pulse - - Temperature 36.3 C (97.3 F) 07/04/2023 1:49 PM ES T Respiratory Rate - - Oxygen Saturation - - Inhaled Oxygen Concentration - - Weight 92.3 kg (203 lb 6.4 oz) 07/04/2023 1:49 P M EST Height - - Body Mass Index 30.93 05/17/2023 1:17 PM EST documented in this encounter Progress Notes * Randall Palencia PA-C - 07/04/2023 1:10 PM EST Images from the original note were not included. Date of Service: 07/04/2023 2:04 PM Harrison Morgan is a 58 year old male. Patient being seen in consultation at the request of Anahy Grayson MD Chief Complaint: PAD return Last visit: 06/10/21 Dr. 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 In the meantime he was admitted to [facility] with SOB at which time he was [...] started on 5 mg of Amlodipine daily. Was to get a CT-guided lung biopsy but missed his appointment due to the weather. He has not rescheduled. This has been rescheduled for 06/13/2021. FAMILY HISTORY: Pertinent family history is listed below. Current Outpatient Medications Medication Sig Dispense Refill Aspirin 81 MG Oral Tablet Delayed Release Take 1 Tablet by mouth in the morning. Spiriva Respimat 2.5 MCG/ACT Inhalation Aerosol Solution (Tiotropium [place] Monohydrate) Inhale bymouth 2 Puffs in the morning. 4 g 11 Vitamin D3 10 MCG (400 UNIT) Oral Tablet Take 1 Tablet by mouth in the morning. Centrum Silver 50+Men Oral Tablet Take 1 Tablet by mouth in the morning. Entresto 24-26 MG Oral Tablet (sacubitril-valsartan 24-26 [...] mouth once a week. 4 Tablet 12 DULoxetine HCl 30 MG Oral Capsule Delayed [...] 2 Sarilumab 200 MG/1.14ML Subcutaneous Solution Auto-injector ([employer]) Inject 1.14 mL under the skinevery 14 [...] 2 TABLETS BEFORE BEDTIME 90 Tablet 2 HYDROcodone-Acetaminophen 10-325 MG Oral Tablet Take 1 Tablet by mouth every 6 hours as needed for Pain, Severe. 90 Tablet 0 sulfaSALAzine 500 MG Oral Tablet Delayed Release (Azulfidine Entab) Take 1 Tablet by mouth in the morning. Jardiance 10 MG Oral Tablet (Empagliflozin) TAKE 1 TABLET BY MOUTH EVERY MORNING 90 Tablet 3 oxyCODONE-Acetaminophen 5-325 MG Oral Tablet (Percocet) Take 1 Tablet by mouth every 6 hours as needed for Pain, Severe or Pain, Moderate. 120 Tablet 0 Furosemide 20 MG Oral Tablet (Lasix) Take 2 Tablets by mouth in the morning. 180 Tablet 3 oxygen IN GAS Use 2 L/min(Oxygen) as directed. Nitroglycerin 0.4 MG Sublingual Tablet Sublingual (Nitrostat) Place 1 Tablet under the tongue every5 minutes as needed for Pain, Chest. up to 3 doses in 15 minutes 25 Tablet 11 No current facility-administered medications for this visit. Review of patient's allergies indicates: No Known Allergies Patient Active Problem List Diagnosis Code DJD (degenerative joint disease) M19.90 Erectile dysfunction N52.9 Tobacco use disorder F17.200 MEDICATION USE AGREEMENT [id number] Rheumatoid arthritis involving multiple sites with positive rheumatoid factor (HCC) M05.79 Hepatitis C virus infection cured after antiviral drug therapy Z86.19 Effusion of left knee M25.462 Knee pain M25.569 Tear of lateral meniscus of knee S83.289A Gastro-esophageal reflux disease without esophagitis K21.9 PAD (peripheral artery disease) ([facility]) I73.9 Depression with anxiety F41.8 Cardiomyopathy ([facility]) I42.9 DDD (degenerative disc disease), lumbar M51.36 Immunodeficiency due to drugs ([facility]) D84.821, Z79.899 Age-related nuclear cataract, bilateral H25.13 SVT (supraventricular tachycardia) I47.10 Frequent PVCs I49.3 Chronic systolic heart failure ([facility]) I50.22 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 Z79.52 Scoliosis M41.9 COPD, group B, by GOLD 2017 classification ([facility]) J44.9 HFrEF (heart failure with reduced ejection fraction) ([facility]) I50.20 Persistent atrial fibrillation ([facility]) I48.19 Encounter for long-term (current) use of medications Z79.899 Lung nodules R91.8 Lung mass R91.8 Senile osteoporosis M81.0 Food insecurity Z59.41 Past Medical History: Diagnosis Date Lung nodule Primary localized osteoarthrosis of shoulder region 05/28/2008 right Rotator cuff syndrome 05/28/2008 right Tobacco use disorder Past Surgical History: Procedure Laterality Date BRONCHOSCOPY, DIAGNOSTIC N/A 10/11/2022 BRONCHOSCOPY DIAGNOSTIC WITH OR WITHOUT WASHING performed by Randall England MD at END[facility] COLONOSCOPY, DIAGNOSTIC (RECTUM) 07/24/2017 normal, repeat 10 yrs/COLONOSCOPY FLEXIBLE PROXIMAL DIAGNOSTIC performed by Paul Veram MD at ENDOSCOPY [facility] DENTAL SURGERY PROCEDURE NEC age 15 [...] on file Occupational History 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 Possible mold in his home. job: [employer] employer: [employer] last education: 12 service: no hobbies/interests: Hunting fishing transfusions: no exercise: little diet: no yazidism/congregational: no marital status: 09/26 children: 07/26 gc: [...] trouble swallowing. CARDIOVASCULAR: denies chest pains, denies ID, denies palpitations, reports CHF. RESPIRATORY: reports shortness [...] GENERAL MULTI-SYSTEM PHYSICAL EXAM: VITAL SIGNS: BP 110/90 (BP Site: Left Arm, BP Position: Sitting, BP Cuff Size: Large) | Temp 36.3 C (97.3 F)(Tympanic) | Wt 92.3 kg (203 lb 6.4 oz) | BMI 30.93 kg/m | BSA 2.1 m GENERAL MULTI-SYSTEM PHYSICAL EXAM: GENERAL: Normal grooming habits, no acute distress and appears stated age. NECK: No masses. RESPIRATORY: CTA CARDIOVASCULAR: no heart murmurs, mild ankle/foot edema. GASTROINTESTINAL: no tenderness, protuberant and abdominal aorta not palpable. LYMPHATIC: cervical lymph nodes normal and inguinial lymph nodes normal. SKIN: Feet with B/L lower leg/feet rubor. Feet and toes are warm. Dry black lesions tip and base ofright great toe, see PHOTOs Healed amputation of tip of right 4th finger PSYCHIATRIC: orientation to time, place and person normal and recent and remote memory normal. EYES: conjunctivae normal, eye lids normal, pupils normal and irises normal. NEUROLOGIC: Motor function intact and Sensory exam intact 07/04/2023 PULSE SCALE: Carotid Right:----Bruit: No Left:----Bruit: No Radial Right: 0 Ulnar 3 Left: 3 Strong squires arch doppler signal Femoral Right: 3 Left: 3 Popliteal Right: 2 Left: 0 Dorsalis Pedis Right: 0 Left: 0 Posterior Tibial Right: 3 Left: 3 PULSE SCALE: 4=Aneurysmal; 3=Normal; 2=Diminished; 1=Barely Palpable; 0=Absent DIAGNOSTIC STUDIES: 07/02/23 Vasospasm DERRICK: 0.92/1.00, decreased PPGs of R toes /4th/5th and L toes //5th that did not improve w/ warm immersion, C/W fixed small vessel arterial disease 06/08/23 CT Chest: No ATAA, minimal plaque 06/24/22 CTA Neck: B/L non-obstructive calcified plaque of ICAs and right carotid bifurcation The above diagnostic images were directly visualized and independently interpreted by me on 07/04/2023 with results as above 06/10/2021 BUE Doppler: WBI .92/1.03. Right PPG with dampened 1st & 2nd waveforms, excellent amplitude of 3rd and 5th PPG and flattened 4th PPG which improved with warming. Incidentally LUE PPG with excellent amplitude throughout at room temperature. LABS: Lab Results Component Value Date/Time CREATININE - [facility] 1.3 (H) 03/28/2023 01:39 PM CREATININE - [facility] 0.8 11/16/2022 01:34 PM CREATININE - [facility] 0.8 10/13/2022 12:09 PM CREATININE - [facility] 0.7 12/15/2019 02:28 [...] clinical labs were reviewed by me on 07/04/23 IMPRESSIONS: Recent vasospasm DERRICK revealed fixed small vessel arterial disease of B/L 1st, 4th and 5th toes New lesions of right great toe, likely related to his small vessel disease. H/O right 4th distal finger ulceration. H/O [...] we will have to wait and see Will hold off on further studies, for now. If toe(s) start to look worse, could consider CTA w/ runoff Continue ASA 81 mg for platelet inhibition/atherosclerosis/PAD Continue Crestor 5 mg for dyslipidemia/hyperlipidemia & pleiotropic benefits of statins On Eliquis 5 mg BID for chronic AFib Patient counseled regarding continued COMPLETE smoking cessation. RTC 1 yr, vasospasm DERRICK The patient was seen and examined with Fernando Lange MD. Randall Palencia PA-C I have reviewed the advanced practitioner's documentation on the date of service referenced in note, and I agree with, and take responsibility for the plan of care. Reports pain in the right great toe. He has a subungal hematoma and a small hematoma on the plantaraspect of the toe. Not a typical presentation for blue toe syndrome. Vasospasm study does show fixed small vessel disease in the R Great toe. I recommend he continue Asa, Crestor, and Eliquis, as well as smoking cessation. Should his foot pain worsen or develop wounds, I will see him again. Tre Lange MD Vascular Surgeon Department of Vascular Surgery [facility] documented in this encounter Nursing Notes * Janice Clay LPN - 07/04/2023 1:48 PM EST 2 yr ret, referred back for PAD. documented in this encounter Plan of Treatment Upcoming Encounters Date Type Department Care Team (Late st Contact Info) Description 07/18/2023 4:00 PM EST [facility] [address] [facility] [place] [address] Cindy Underwood, RN [address] [place] [address] 08/21/2023 12:30 PM EDT [facility] [place] [address] [facility] [place] [address] Logan Morales, PhD [address] [facility] [place] [address] 09/11/2023 9:40 AM EDT Office Visit Rheumatology [place] [id number] [place] [address] Jimmy Giang MD [address] [facility] [place] [address] 09/13/2023 8:40 AM EDT Office Visit Neurology [facility] [place] [address] [facility] [place] [address] Aparna Ruano PA-C [address] [facility] [place], [place] [address] 09/17/2023 1:40 PM EDT Office Visit [facility] [address] [place] [facility] [place] [address] Anahy Grayson MD [address] [place] [address] Scheduled Orders Name Type Priority Associated Diagnoses Orde r Schedule VASC ANKLE BRACHIAL INDICES WITH PPG (DIABETIC FOOT/VASOSPASM) Medical Imaging Routine Small vessel disease (HCC) Tobacco use disorder Ordered: 07/04/2023 Scheduled Procedures Name Priority Associated Diagnoses Date/Ti me COLONOSCOPY FLEXIBLE PROXIMAL DIAGNOSTIC Recall Colon cancer screening Health Maintenance Due Date Last Done Comments DISCUSS TOBACCO CESSATION (REFER TO SMARTSET #3260) 1965 COVID-19 Vaccine (#1) 02/09/1969 Alpha-1 Antitrypsin [...] D LEVEL ONCE IN A LIFETIME-USE SMARTSET# 19410 Completed 08/04/2021 GARDASIL-HPV IMMUNIZATION SERIES Aged Out No longer eligible based on patient's age to complete this topic MENINGOCOCCAL (MENACTRA/MENVEO) Aged Out No longer eligible based on patient's age to complete this topic documented as of this encounter Medical Devices Not on filedocumented as of this encounter Visit Diagnoses Diagnosis Small vessel disease (HCC)- Primary Peripheral vascular disease, unspecified Tobacco use disorder documented in this encounter Care Teams Continuous Pickling Line Pickler Relationship Specialty Start Date End Date Anahy Grayson MD [address] [place] [address] PCP - General Internal Medicine 01/27/22 documented as of this encounter
--- OUTSIDE RECORDS SUMMARY | 2023-08-13 00:12 | External Medical Summary | Summary of Care ---
Author Name Unknown Organization [facility] Address [address] [place] [address] Phone [phone] Care Team Providers Care Horseradish Grinder Name Role Phone Anahy Grayson MD Primary Care Provider [phone] Encounter Details Date Type Department Care Team (Late st Contact Info) Description 06/29/2023 Telephone Vascular Surg [facility] [place] [address] [place] [address] Trinh Hernández PA-C [address] [place] [address] Allergies No known active allergiesdocumented as of this encounter (statuses as of 06/29/2023) Medications Medication Sig Dispensed Refills Start Date End Date Status Aspirin 81 MG Oral Tablet Delayed Release Take 1 Tablet by mouth in the morning. 0 Active Spiriva Respimat 2.5 MCG/ACT Inhalation Aerosol Solution (Tiotropium [place] Monohydrate) Inhale by mouth 2 Puffs in [...] Oral Tablet (Crestor)Indication s:Coronary artery disease involving [place] coronary artery of [place] heart without angina pectoris,HFrEF (heart failure with reduced ejection fraction) ([facility]),HTN, goal below 140/90,Dyslipidemia , goal LDL below [...] multiple sites with positive rheumatoid factor ([facility]) Inject 1.14 mL under the skin every 14 days. 2.28 mL 11 03/05/2023 Active Omeprazole 40 MG Oral Capsule Delayed Release (PriLOSEC) Take 1 Capsule by mouth in the morning. 1 hour before the first meal of the day.. 90 Capsule 3 03/15/2023 Active Sildenafil Citrate 20 MG Oral Tablet (Revatio)Indication s:Raynaud's disease with gangrene ([facility]) TAKE ONE TABLET BY MOUTH EVERY MORNING [...] (heart failure with reduced ejection fraction) ([facility]) TAKE 1 TABLET BY MOUTH EVERY MORNING 90 Tablet 3 05/08/2023 Active oxyCODONE-Acetamino phen 5-325 MG Oral Tablet (Percocet)Indicatio ns:Rheumatoid arthritis involving multiple sites with positive rheumatoid factor ([facility]),DDD (degenerative disc disease), lumbar,Thoracic compression fracture, closed, initial encounter ([facility]),Old tear of lateral meniscus of knee, unspecified laterality, unspecified tear type Take 1 Tablet by mouth every 6 hours as needed for Pain, Severe or Pain, Moderate. 120 Tablet 0 06/04/2023 Active Furosemide 20 MG Oral Tablet (Lasix)Indications: HFrEF (heart failure with reduced ejection fraction) ([facility]) Take 2 Tablets by mouth in the [...] DERRICK instead on 07/02. Will see if [facility] is willing to see patient at on Sunday,otherwise will call with results. Encouraged him to offload. Has history of digital ischemia from small vessel disease, suspect the same with his toe. Please cancel venous duplex on 07/02 and replace with DERRICK with vasospasm if possible. Would a 07/04 appointment have to be an overbook? If so please await [facility]'s approval. Thanks More than happy to call patient if this is preference. documented in this encounter Plan of Treatment Upcoming Encounters Date Type Department Care Team (Late st Contact Info) Description 07/02/2023 10:30 AM EST Imaging Vascular Lab, [facility] [facility] [place] [address] [facility] [place] [address] 07/18/2023 4:00 PM EST Home Visit [facility] [address] [facility] [place] [address] Cindy Underwood RN 132 [facility] [place] [address] 08/21/2023 12:30 PM EDT [facility] [place] [address] [facility] [place] [address] Logan Morales, PhD [address] [facility] [place] [address] 09/11/2023 9:40 AM EDT Office Visit Rheumatology [address] [place] [address] Jimmy Giang MD [facility] [employer] [place] [address] 09/13/2023 8:40 AM EDT Office Visit Neurology [facility] [place] [address] [facility] [place] [address] Aparna Ruano PA-C [address] [facility] [place] [address] 09/17/2023 1:40 PM EDT Office Visit [facility] [address] [place] [address] Anahy Grayson MD [address] [place] [facility] [place] [address] Scheduled Orders Name Type Priority Associated Diagnoses Orde r Schedule VASC ANKLE BRACHIAL INDICES WITH PPG (DIABETIC FOOT/VASOSPASM) Medical Imaging Routine PVD (peripheral vascular disease) (HCC) Expected: 07/06/2023 (Approximate), Expires: 07/27/2025 Scheduled Procedures Name Priority Associated Diagnoses Date/Ti me COLONOSCOPY FLEXIBLE PROXIMAL DIAGNOSTIC Recall Colon cancer screening Health Maintenance Due Date Last Done Comments DISCUSS TOBACCO CESSATION (REFER TO SMARTSET #6510) 1965 COVID-19 Vaccine (#1) 02/09/1969 Alpha-1 Antitrypsin [...] D LEVEL ONCE IN A LIFETIME-USE SMARTSET# 57042 Completed 08/04/2021 GARDASIL-HPV IMMUNIZATION SERIES Aged Out [...] unspecified documented in this encounter Care Teams Horseradish Grinder Relationship Specialty Start Date End Date Anahy Grayson MD [address] [place] [address] PCP - General Internal Medicine 01/27/22 documented as of this encounter
--- OUTSIDE RECORDS SUMMARY | 2023-08-13 00:12 | External Medical Summary | Summary of Care ---
Author Name Unknown Organization [facility] Address [address] [place] [address] Phone [phone] Care Team Providers Care Field Assistant Name Role Phone Anahy Grayson MD Primary Care Provider [phone] Encounter Details Date Type Department Care Team (Late st Contact Info) Description 06/29/2023 Telephone Vascular Surg [facility] [address] [place] [address] Trinh Hernández PA-C [address] [place] [address] Allergies No known active allergiesdocumented as of this encounter (statuses as of 07/02/2023) Medications Medication Sig Dispensed Refills Start Date End Date Status Aspirin 81 MG Oral Tablet Delayed Release Take 1 Tablet by mouth in the morning. 0 Active Spiriva Respimat 2.5 MCG/ACT Inhalation Aerosol Solution (Tiotropium [place] Monohydrate) Inhale by mouth 2 Puffs in [...] Oral Tablet (Crestor)Indication s:Coronary artery disease involving [place] coronary artery of [place] heart without angina pectoris,HFrEF (heart failure with reduced ejection fraction) ([facility]),HTN, goal below 140/90,Dyslipidemia , goal LDL below [...] sites with positive rheumatoid factor ([facility]) Inject 1.14 mL under the skin every 14 days. 2.28 mL 11 03/05/2023 Active Omeprazole 40 MG Oral Capsule Delayed Release (PriLOSEC) Take 1 Capsule by mouth in the morning. 1 hour before the first meal of the day.. 90 Capsule 3 03/15/2023 Active Sildenafil Citrate 20 MG Oral Tablet (Revatio)Indication s:Raynaud's disease with gangrene ([facility]) TAKE ONE TABLET BY MOUTH EVERY MORNING [...] failure with reduced ejection fraction) ([facility]) TAKE 1 TABLET BY MOUTH EVERY MORNING 90 Tablet 3 05/08/2023 Active oxyCODONE-Acetamino phen 5-325 MG Oral Tablet (Percocet)Indicatio ns:Rheumatoid arthritis involving multiple sites with positive rheumatoid factor ([facility]),DDD (degenerative disc disease), lumbar,Thoracic compression fracture, closed, initial encounter ([facility]),Old tear of lateral meniscus of knee, unspecified laterality, unspecified tear type Take 1 Tablet by mouth every 6 hours as needed for Pain, Severe or Pain, Moderate. 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 06/23/2022 Scoliosis 06/23/2022 SVT [...] 07/02/2023 10:30 AM EST Imaging Vascular Lab, [facility] 2nd [facility] [address] [place] [address] 07/18/2023 4:00 PM EST Home Visit [facility], [facility] [address] [place] [address] Cindy Underwood, RN 132 [facility] [place] [address] 08/21/2023 12:30 PM EDT Therapy Neuropsychology [address] [place] [address] [place] [address] Logan Morales, PhD [address] [facility] [place] [address] 09/11/2023 9:40 AM EDT Office Visit Rheumatology [place] [address] [place] [address] Jimmy Giang MD [address] [place] [address] 09/13/2023 8:40 AM EDT Office Visit Neurology [facility] [place] [facility] [address] [place] [address] Aparna Ruano PA-C [address] [facility] [place] [place] [address] 09/17/2023 1:40 PM EDT [facility] [address] [facility] [address] Anahy Grayson MD [address] [facility] [place] [id number] Scheduled Orders Name Type Priority Associated Diagnoses Orde r Schedule VASC ANKLE BRACHIAL INDICES WITH PPG (DIABETIC FOOT/VASOSPASM) Medical Imaging Routine PVD (peripheral vascular disease) (HCC) Expected: 07/06/2023 (Approximate), Expires: 07/27/2025 Scheduled Procedures Name Priority Associated Diagnoses Date/Ti me COLONOSCOPY FLEXIBLE PROXIMAL DIAGNOSTIC Recall Colon cancer screening Health Maintenance Due Date Last Done Comments DISCUSS TOBACCO CESSATION (REFER TO SMARTSET #3298) 1965 COVID-19 Vaccine (#1) 02/09/1969 Alpha-1 Antitrypsin [...] D LEVEL ONCE IN A LIFETIME-USE SMARTSET# 39620 Completed 08/04/2021 GARDASIL-HPV IMMUNIZATION SERIES Aged Out [...] unspecified documented in this encounter Care Teams Field Assistant Relationship Specialty Start Date End Date Anahy Grayson MD [address] [facility] [address] PCP - General Internal Medicine 01/27/22 documented as of this encounter
--- OUTSIDE RECORDS SUMMARY | 2023-08-13 00:12 | External Medical Summary | Summary of Care ---
Author Name Unknown Organization [facility] Address [address] [place] [address] Phone [phone] Care Team Providers Care Commercial Underwriter Name Role Phone Anahy Grayson MD Primary Care Provider [phone] Reason for Visit * Reason Onset Date Comments Medication Refill 07/05/2023 Encounter Details Date Type Department Care Team (Late st Contact Info) Description 07/05/2023 Refill [place] [address] [place] [address] Anahy Grayson MD [address] [place] [address] Rheumatoid arthritis involving multiple sites with positive rheumatoid factor ([facility]); DDD (degenerative disc disease), lumbar; Thoracic compression fracture, closed, initial encounter ([facility]); Old tear of lateral meniscus of knee, unspecified laterality, unspecified tear type Allergies No known active allergiesdocumented as of this encounter (statuses as of 07/05/2023) Medications Medication Sig Dispensed Refills Start Date End Date Status Aspirin 81 MG Oral Tablet Delayed Release Take 1 Tablet by mouth in the morning. 0 Active Spiriva Respimat 2.5 MCG/ACT Inhalation Aerosol Solution (Tiotropium [place] Monohydrate) Inhale by mouth 2 Puffs in [...] Oral Tablet (Crestor)Indicatio ns:Coronary artery disease involving [place] coronary artery of [place] heart without angina pectoris,HFrEF (heart failure with [...] 04/20/2023 Sarilumab 200 MG/1.14ML Subcutaneous Solution Auto-injector ([employer])Indicatio ns:Rheumatoid arthritis involving multiple sites with positive [...] Oral Tablet (Revatio)Indicatio ns:Raynaud's disease with gangrene ([facility]) TAKE ONE TABLET BY MOUTH [...] ications:HFrEF (heart failure with reduced ejection fraction) ([facility]) TAKE 1 TABLET BY MOUTH EVERY MORNING 90 Tablet 3 05/08/2023 Active Furosemide 20 MG Oral Tablet (Lasix)Indications :HFrEF (heart failure with reduced ejection fraction) ([facility]) Take 2 Tablets by mouth in the morning. 180 Tablet 3 06/06/2023 Active oxyCODONE-Acetamin ophen 5-325 MG Oral Tablet (Percocet)Indicati ons:Rheumatoid arthritis involving multiple sites with positive rheumatoid factor (HCC),DDD (degenerative disc disease), lumbar,Thoracic compression fracture, closed, initial encounter ([facility]),Old tear of lateral meniscus of knee, unspecified laterality, unspecified tear type Take 1 Tablet by mouth every 6 hours as needed for Pain, Severe or Pain, Moderate. 120 Tablet 0 07/05/2023 Active oxyCODONE-Acetamin ophen 5-325 MG Oral Tablet (Percocet)Indicati ons:Rheumatoid arthritis involving multiple sites with positive rheumatoid factor ([facility]),DDD (degenerative disc disease), lumbar,Thoracic compression fracture, closed, initial encounter ([facility]),Old tear of lateral meniscus of knee, unspecified laterality, unspecified tear type Take 1 Tablet by mouth every 6 hours as needed for Pain, Severe or Pain, Moderate. 120 Tablet 0 06/04/2023 Discontinue d(Refill) documented as of this encounter (statuses as of 07/05/2023) Active Problems Problem Noted Date Diagnosed Date [...] as of this encounter (statuses as of 07/05/2023) Resolved Problems Problem Noted Date Diagnosed Date [...] as of this encounter (statuses as of 07/05/2023) Immunizations Name Administration Dates Next Due HepA [...] Telephone Encounter - Anahy Grayson MD - 07/05/2023 4:27 PM ESTSigned Prescriptions: Disp Refills oxyCODONE-Acetaminophen 5-325 MG Oral Tabl*120 Ta*0 Sig: Take 1 Tablet by mouth every 6 hours as needed for Pain, Severe or Pain, Moderate. Authorizing Provider: ANAHY GRAYSON * Telephone Encounter - Vamsi Varela [facility] - 07/05/2023 4:16 PM ESTPending Prescriptions: Disp Refills oxyCODONE-Acetaminophen 5-325 MG Oral Tabl*120 Ta*0 Sig: Take 1 Tablet by mouth every 6 hours as needed for Pain, Severe or Pain, Moderate. * Telephone Encounter - Vamsi Varela [facility] - 07/05/2023 4:16 PM EST I have reviewed the patients controlled substance dispensing history in the Prescription Drug Monitoring Program in compliance with the [facility] regulations before prescribing a controlled substance. PDMP checked on 07/05/2023. Pending Prescriptions: Disp Refills oxyCODONE-Acetaminophen 5-325 MG Oral Tab*120 Ta*0 Sig: Take 1 Tablet by mouth every 6 hours as needed for Pain, Severe or Pain, Moderate. Last Visit: 05/17/2023 (in office), 06/15/2020 (telemedicine) Next Visit: 09/17/2023 Date medication was last filled: 06/04/2023 Date medication is due for refill: 07/03/2023 Pharmacy: [id number] Is this request for a controlled substance? Yes and Urine Drug Screen was completed Toxicology results: Results for orders placed or performed in [...] results can be found in Results Review. Please approve if appropriate. Thanks, Vamsi Varela Pharm.D. Clinical Pharmacist [facility] ([facility])(Formerly Telepharmacy) [phone] 07/05/2023, 4:16 PM * Telephone Encounter - Brigid Carrasco CPhT - 07/05/2023 4:11 PM EST Patient out of medication Did you pend patient's preferred pharmacy and medication before forwarding?yes Pharmacy: [id number] Pending Prescriptions: Disp Refills oxyCODONE-Acetaminophen 5-325 MG Oral Tab*120 Ta*0 Sig: Take 1 Tablet by mouth every 6 hours as needed for Pain, Severe or Pain, Moderate. Last Visit: 05/17/2023 (in office), 06/15/2020 (telemedicine) Next Visit: 09/17/2023 If no future appointments scheduled, and last appointment is greater than a year ago, please schedule patient for a follow-up appointment Last date the medication was ordered: 06/04/2023 Is this request for a controlled substance?Yes, What was the last refill date 06/04/2023 w/ quantity 120 and dosage 5-325 MG and Urine Drug Screen was completed Urine Drug Screen: Results for orders placed [...] Results Component Value Date/Time CREAT 1.3 (H) 03/28/2023 01:39 PM CREAT 0.63 04/06/2022 12:00 AM CREAT 0.7 12/15/2019 02:28 PM POTASSIUM 4.4 03/28/2023 01:39 PM POTASSIUM 3.7 04/06/2022 12:00 AM POTASSIUM 4.3 12/15/2019 02:28 PM TSH 3.56 03/21/2022 09:15 AM TSH 1.43 01/15/2014 10:21 AM LDLCALC 43 08/28/2022 11:20 AM LDLCALC 53 11/19/2017 03:31 PM LDLDIRECT NOT APPLICABLE 12/21/2015 08:52 AM ALT 20 03/28/2023 01:39 PM ALT 13 12/15/2019 02:28 PM HGBA1C 5.9 (H) 01/31/2022 10:09 AM HGBA1C 6.0 (A) 08/16/2017 12:00 AM documented in this encounter Plan of Treatment Upcoming Encounters Date Type Department Care Team (Late st Contact Info) Description 07/18/2023 4:00 PM EST Home Visit [facility], [facility] 132 [facility] [place] [address] Cindy Underwood RN 132 [facility] [place] [address] 08/21/2023 12:30 PM EDT Therapy Neuropsychology [facility] 200 [facility] [place] [address] Logan Morales, PhD 200 [facility] [place] [address] 09/11/2023 9:40 AM EDT Office Visit Rheumatology [place] [id number] [facility] [place] [address] Jimmy Giang MD [facility] [place] [address] 09/13/2023 8:40 AM EDT Office Visit Neurology [facility] [place] [address] [place] [address] Aparna Ruano PA-C 200 [facility] [place] [address] 09/17/2023 1:40 PM EDT Office Visit [facility] [address] [facility] [address] Anahy Grayson MD [address] [place], [place] [id number] Scheduled Procedures Name Priority Associated Diagnoses Date/Ti [...] D LEVEL ONCE IN A LIFETIME-USE SMARTSET# [id number] Completed 08/04/2021 GARDASIL-HPV IMMUNIZATION SERIES Aged Out No longer eligible based on patient's age to complete this topic MENINGOCOCCAL (MENACTRA/MENVEO) Aged Out No longer eligible based on patient's age to complete this topic documented as of this encounter Medical Devices Not on filedocumented as of this encounter Visit Diagnoses Diagnosis Rheumatoid arthritis involving multiple sites with positive rheumatoid factor (HCC) DDD (degenerative disc disease), lumbar Degeneration of lumbar or lumbosacral intervertebral disc Thoracic compression fracture, closed, initial encounter (HCC) Old tear of lateral meniscus of knee, unspecified laterality, unspecified tear type documented in this encounter Care Teams Commercial Underwriter Relationship Specialty Start Date End Date Anahy Grayson MD [address] [place] [address] PCP - General Internal Medicine 01/27/22 documented as of this encounter
--- OUTSIDE RECORDS SUMMARY | 2023-08-13 00:12 | External Medical Summary | Summary of Care ---
Author Name Unknown Organization [facility] Address [address] [facility] [place] [address] Phone [phone] Care Team Providers Care Metal Reclamation Kettle Tender Name Role Phone Anahy Grayson MD Primary Care Provider [phone] Encounter Details Date Type Department Care Team (Late st Contact Info) Description 07/14/2023 Orders Only PATIENT PORTAL DO NOT DELETE THIS DEPT USED BY [place] [id number] Allergies No known active allergiesdocumented as of this encounter (statuses as of 07/14/2023) Medications Medication Sig Dispensed Refills Start Date End Date Status Aspirin 81 MG Oral Tablet Delayed Release Take 1 Tablet by mouth in the morning. 0 Active Spiriva Respimat 2.5 MCG/ACT Inhalation Aerosol Solution (Tiotropium [place] Monohydrate) Inhale by mouth 2 Puffs in [...] Oral Tablet (Crestor)Indication s:Coronary artery disease involving [place] coronary artery of [place] heart without angina pectoris,HFrEF (heart failure with reduced ejection fraction) ([facility]),HTN, goal below 140/90,Dyslipidemia , goal LDL [...] positive rheumatoid factor ([facility]) Take one to two tablets by [...] (Revatio)Indication s:Raynaud's disease with gangrene ([facility]) [...] with positive rheumatoid factor ([facility]),DDD (degenerative disc disease), lumbar,Thoracic compression fracture, closed, initial encounter ([facility]),Old tear of lateral meniscus of knee, unspecified laterality, unspecified tear type Take 1 Tablet by mouth every 6 hours as needed for Pain, Severe or Pain, Moderate. 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 06/23/2022 Scoliosis 06/23/2022 SVT [...] as of this encounter (statuses as of 07/14/2023) Resolved Problems Problem Noted Date Diagnosed Date [...] as of this encounter (statuses as of 07/14/2023) Immunizations Name Administration Dates Next Due HepA [...] Description 07/18/2023 4:00 PM EST [facility] [address] [address] Cindy Underwood RN [address] [place] [address] 07/25/2023 10:50 AM EST Office Visit Vascular Surgery, [facility] [address] [address] Galo Gold MD [address] [place] [address] 08/21/2023 12:30 PM EDT Therapy Neuropsychology [facility] [address] [place] [address] Logan Morales, PhD 200 [facility] [place] [address] 09/11/2023 9:40 AM EDT Office Visit Rheumatology [place] [address] [place] [address] Jimmy Giang MD [address] [place] [address] 09/13/2023 8:40 AM EDT Office Visit Neurology [facility] [address] [place] [address] Aparna Rauno PA-C 200 [facility] [place] [address] 09/17/2023 1:40 PM EDT [facility] Visit [facility] [address] [place] [address] Anahy Grayson MD [address] [place] [address] Scheduled Procedures Name Priority Associated Diagnoses Date/Ti me COLONOSCOPY FLEXIBLE PROXIMAL DIAGNOSTIC Recall Colon cancer screening Health Maintenance Due Date Last Done Comments DISCUSS TOBACCO CESSATION (REFER TO SMARTSET #6004) 1965 COVID-19 Vaccine (#1) 02/[birth year]/1969 Alpha-1 Antitrypsin [...] D LEVEL ONCE IN A LIFETIME-USE SMARTSET# 58882 Completed 08/04/2021 GARDASIL-HPV IMMUNIZATION SERIES Aged Out No longer eligible based on patient's age to complete this topic MENINGOCOCCAL (MENACTRA/MENVEO) Aged Out No longer eligible based on patient's age to complete this topic documented as of this encounter Medical Devices Not on filedocumented as of this encounter Care Teams Metal Reclamation Kettle Tender Relationship Specialty Start Date End Date Anahy Grayson MD [address] [facility] [address] PCP - General Internal Medicine 01/27/22 documented as of this encounter
--- OUTSIDE RECORDS SUMMARY | 2023-08-13 00:12 | External Medical Summary | Summary of Care ---
Author Name Unknown Organization [facility] Address [address] [place] [address] Phone [phone] Care Team Providers Care Human Resource Assistant Name Role Phone Anahy Grayson MD Primary Care Provider [phone] Encounter Details Date Type Department Care Team (Late st Contact Info) Description 07/05/2023 [facility] [place] [address] Refill, [address] [address] Allergies No known active allergiesdocumented as of this encounter (statuses as of 07/05/2023) Medications Medication Sig Dispensed Refills Start Date End Date Status Aspirin 81 MG Oral Tablet Delayed Release Take 1 Tablet by mouth in the morning. 0 Active Spiriva Respimat 2.5 MCG/ACT Inhalation Aerosol Solution (Tiotropium [place] Monohydrate) Inhale by mouth 2 Puffs [...] Oral Tablet (Crestor)Indication s:Coronary artery disease involving [place] coronary artery of [place] heart without angina pectoris,HFrEF (heart failure with reduced ejection fraction) ([facility]),HTN, goal below 140/90,Dyslipidemia , goal [...] sites with positive rheumatoid factor ([facility]) Inject 1.14 mL under the skin every 14 days. 2.28 mL 11 03/05/2023 Active Omeprazole 40 MG Oral Capsule Delayed Release (PriLOSEC) Take 1 Capsule by mouth in the morning. 1 hour before the first meal of the day.. 90 Capsule 3 03/15/2023 Active Sildenafil Citrate 20 MG Oral Tablet (Revatio)Indication s:Raynaud's disease with gangrene ([facility]) TAKE ONE TABLET BY MOUTH [...] cations:HFrEF (heart failure with reduced ejection fraction) ([facility]) TAKE 1 TABLET BY MOUTH EVERY MORNING 90 Tablet 3 05/08/2023 Active oxyCODONE-Acetamino phen 5-325 MG Oral Tablet (Percocet)Indicatio ns:Rheumatoid arthritis involving multiple sites with positive rheumatoid factor ([facility]),DDD (degenerative disc disease), lumbar,Thoracic compression fracture, closed, initial encounter ([facility]),Old tear of lateral meniscus of knee, unspecified laterality, unspecified tear type Take 1 Tablet by mouth every 6 hours as needed for Pain, Severe or Pain, Moderate. 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 Prescription Address: [address] [place] [address] [place] [address] ANEUDY [employer] [facility] 07/05/2023,1:26 PM documented in this encounter Plan of Treatment Upcoming Encounters Date Type Department Care Team (Late st Contact Info) Description 07/18/2023 4:00 PM EST [facility] Visit [facility] 132 [facility] [place] [address] Cindy Underwood, RN [address] [place] [address] 08/21/2023 12:30 PM EDT Therapy Neuropsychology [facility] 200 [place] [address] Logan Morales, PhD 200 [place] [address] 09/11/2023 9:40 AM EDT Office Visit Rheumatology [place] [address] [facility] [place] [address] Jimmy Giang MD [address] [place], [place] [address] 09/13/2023 8:40 AM EDT Office Visit Neurology [facility] 200 [facility] [place] [address] Aparna Ruano PA-C 200 [place] [address] 09/17/2023 1:40 PM EDT Office Visit [facility] [address] [place] [address] Anahy Grayson MD [address] [place] [address] Scheduled Procedures Name Priority Associated [...] D LEVEL ONCE IN A LIFETIME-USE SMARTSET# 32901 Completed 08/04/2021 GARDASIL-HPV IMMUNIZATION SERIES Aged Out No longer eligible based on patient's age to complete this topic MENINGOCOCCAL (MENACTRA/MENVEO) Aged Out No longer eligible based on patient's age to complete this topic documented as of this encounter Medical Devices Not on filedocumented as of this encounter Care Teams Human Resource Assistant Relationship Specialty Start Date End Date Anahy Grayson MD [address] [place] [facility] [address] PCP - General Internal Medicine 01/27/22 documented as of this encounter
--- OUTSIDE RECORDS SUMMARY | 2023-08-13 00:12 | External Medical Summary | Summary of Care ---
Author Name Unknown Organization [facility] Address [address] [place] [address] Phone [phone] Care Team Providers Care Cut Filer Name Role Phone Anahy Grayson MD Primary Care Provider [phone] Reason for Visit * Reason Onset Date Comments Appointment 06/29/2023 Encounter Details Date Type Department Care Team (Late st Contact Info) Description 06/29/2023 Telephone Vascular Surg [facility] [address] [place] [address] Trinh Hernández PA-C [address] [place] [address] Appointment Allergies No known active allergiesdocumented as of this encounter (statuses as of 07/03/2023) Medications Medication Sig Dispensed Refills Start Date End Date Status Aspirin 81 MG Oral Tablet Delayed Release Take 1 Tablet by mouth in the morning. 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 [address] [address] Tre Lange MD [address] [facility] [place] [address] 07/18/2023 4:00 PM EST Home Visit [facility] at [place], [facility] [address] [place] [address] Cindy Underwood, RN [address] [place] [address] 08/21/2023 12:30 PM EDT Therapy Neuropsychology [facility] [address] [place] [address] Logan Morales, PhD [address] [facility] [place] [address] 09/11/2023 9:40 AM EDT Office Visit Rheumatology [place] [id number] [employer] [place] [address] Jimmy Giang MD [facility] [email or web address] [place] [address] 09/13/2023 8:40 AM EDT Office Visit Neurology [facility] [address] [place] [address] Aparna Ruano PA-C 200 [facility] [place] [address] 09/17/2023 1:40 PM EDT Office Visit [facility] [address] [place] [address] Anahy Grayson MD [address] [place] [address] Scheduled Procedures Name Priority Associated Diagnoses Date/Ti me COLONOSCOPY FLEXIBLE PROXIMAL DIAGNOSTIC Recall Colon cancer screening Health Maintenance Due Date Last Done Comments DISCUSS TOBACCO CESSATION (REFER TO SMARTSET #1567) 1965 COVID-19 Vaccine (#1) 02/09/1969 Alpha-1 Antitrypsin [...] D LEVEL ONCE IN A LIFETIME-USE SMARTSET# 29438 Completed 08/04/2021 GARDASIL-HPV IMMUNIZATION SERIES Aged Out No longer eligible based on patient's age to complete this topic MENINGOCOCCAL (MENACTRA/MENVEO) Aged Out No longer eligible based on patient's age to complete this topic documented as of this encounter Medical Devices Not on filedocumented as of this encounter Results * VASC ANKLE BRACHIAL INDICES WITH PPG (DIABETIC FOOT/VASOSPASM) (07/02/2023 11:28 AM EST) Anatomical Region Laterality Modality Extremity, Ankle, Vascular, Lower Extremity, Carolyne t Ultrasound Impressions 07/02/2023 11:41 AM EST : DERRICK at rest is 0.92 on the right and 1.0 on the left. For the right lower extremity: Lower extremity Doppler Evaluation at rest is normal with no evidence of significant arterial occlusive disease. Abnormal PPGs that do not improve with warm water immersion suggest fixed small vessel arterial occlusive disease. For the left lower extremity: Lower extremity Doppler Evaluation at rest is normal with no evidence of significant arterial occlusive disease. Abnormal PPGs that do not improve with warm water immersion suggest fixed small vessel arterial occlusive disease. Narrative 07/02/2023 11:41 AM EST VASCULAR LAB RESULTS DATE OF EXAMINATION: 07/02/23 INDICATION: test for small vessel/vasospastic disease, please do warming pt may not tolerate cold submersion This is an interpretation of an exam performed at [facility]. PHYSICIAN REPORT: ANKLE BRACHIAL INDEX OF THE LOWER EXTREMITIES WITH EVALUATION FOR VASOSPASM Immediately before proceeding with the vascular lab procedure reported below, the identity of the patient, the correct exam and the correct procedural site were identified. Continuous wave doppler and appropriate size pressure cuffs were utilized during the examination. Findings: The right and left brachial artery blood pressure are 130 and 120 mmHg respectively. The right posterior tibial artery waveform is triphasic and has an amplitude which is excellent. The right dorsalis pedis artery waveform is triphasic and has an amplitude which is good. The right peroneal artery waveform is absent. The tibial pressures range from 112 mmHg to 120 mmHg. Right foot great toe pressure could not be insonated. For baseline right foot PPG amplitude: Digit 1 is decreased. Digit 2 is decreased. Digit 3 is excellent. Digit 4 is decreased. Digit 5 is decreased. Immediately following warm water immersion right foot PPG amplitude: Digit 1 is decreased. Digit 2 is excellent. Digit 3 is excellent. Digit 4 is decreased. Digit 5 is decreased. The left posterior tibial artery waveform is triphasic and has an amplitude which is excellent. The left dorsalis pedis artery waveform is triphasic and has an amplitude which is excellent. The left peroneal artery waveform is monophasic. The tibial pressures range from 120 mmHg to 130 mmHg. Left great toe pressure could not be insonated. For baseline left foot PPG amplitude: Digit 1 is decreased. Digit 2 is decreased. Digit 3 is decreased. Digit 4 is good. Digit 5 is good. Immediately following warm water immersion left foot PPG amplitude: Digit 1 is decreased. Digit 2 is excellent. Digit 3 is excellent. Digit 4 is decreased. Digit 5 is decreased. Trinh Hernández PA-C RAD VASCULAR documented in this encounter Visit Diagnoses Diagnosis PVD (peripheral vascular disease) (HCC)- Primary Peripheral vascular disease, unspecified PVD (peripheral vascular disease) (HCC) Peripheral vascular disease, unspecified documented in this encounter Care Teams Cut Filer Relationship Specialty Start Date End Date Anahy Grayson MD [address] [place] [facility] [place] [address] PCP - General Internal Medicine 01/27/22 documented as of this encounter
--- OUTSIDE RECORDS SUMMARY | 2023-08-13 00:12 | External Medical Summary | Summary of Care ---
Author Name Unknown Organization [facility] Address [address] [place] [address] Phone [phone] Care Team Providers Care Rocket Motor Mechanic Name Role Phone Anahy Grayson MD Primary Care Provider [phone] Encounter Details Date Type Department Care Team (Late st Contact Info) Description 07/02/2023 Telephone Vascular Surg [facility] [address] [place] [address] Trinh Hernández PA-C [address] [place] [address] Allergies No known active allergiesdocumented as of this encounter (statuses as of 07/02/2023) Medications Medication Sig Dispensed Refills Start Date End Date Status Aspirin 81 MG Oral Tablet Delayed Release Take 1 Tablet by mouth in the morning. 0 Active Spiriva Respimat 2.5 MCG/ACT Inhalation Aerosol Solution (Tiotropium [place] Monohydrate) Inhale by mouth 2 Puffs in [...] Oral Tablet (Crestor)Indication s:Coronary artery disease involving [place] coronary artery of mak[place] heart without angina pectoris,HFrEF (heart failure with reduced ejection fraction) ([facility]),HTN, goal below 140/90,Dyslipidemia , [...] multiple sites with positive rheumatoid factor ([facility]) Inject 1.14 mL under the skin every 14 days. 2.28 mL 11 03/05/2023 Active Omeprazole 40 MG Oral Capsule Delayed Release (PriLOSEC) Take 1 Capsule by mouth in the morning. 1 hour before the first meal of the day.. 90 Capsule 3 03/15/2023 Active Sildenafil Citrate 20 MG Oral Tablet (Revatio)Indication s:Raynaud's disease with gangrene ([facility]) TAKE ONE TABLET BY [...] (heart failure with reduced ejection fraction) ([facility]) TAKE 1 TABLET BY MOUTH EVERY MORNING 90 Tablet 3 05/08/2023 Active oxyCODONE-Acetamino phen 5-325 MG Oral Tablet (Percocet)Indicatio ns:Rheumatoid arthritis involving multiple sites with positive rheumatoid factor ([facility]),DDD (degenerative disc disease), lumbar,Thoracic compression fracture, closed, initial encounter ([facility]),Old tear of lateral meniscus of knee, unspecified laterality, unspecified tear type Take 1 Tablet by mouth every 6 hours as needed for Pain, Severe or Pain, Moderate. 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 06/23/2022 Scoliosis 06/23/2022 [...] 07/02/2023 10:30 AM EST Imaging Vascular Lab, [facility] [address] [facility] [address] [place] [address] 07/18/2023 4:00 PM EST [facility], [facility] [address] [place] [address] [place], Cindy H, RN [address] [place] [address] 08/21/2023 12:30 PM EDT Therapy Neuropsychology [facility] [address] [place] [address] Logan Morales, PhD 200 [facility] [place] [address] 09/11/2023 9:40 AM EDT Office Visit Rheumatology [place] [address] [employer] [place] [address] Jimmy Giang MD [facility] [employer] [place] [address] 09/13/2023 8:40 AM EDT Office Visit Neurology [facility] [address] [facility] [place] [address] Aparna Ruano PA-C 200 [facility] [place] [address] 09/17/2023 1:40 PM EDT Office Visit [facility] [address] [place] [address] Anahy Grayson MD [address] [place] [address] Scheduled Procedures Name Priority Associated Diagnoses Date/Ti me COLONOSCOPY FLEXIBLE PROXIMAL DIAGNOSTIC Recall Colon cancer screening Health Maintenance Due Date Last Done Comments DISCUSS TOBACCO CESSATION (REFER TO SMARTSET #7436) 1965 COVID-19 Vaccine (#1) 02/[birth year]/1969 Alpha-1 Antitrypsin [...] D LEVEL ONCE IN A LIFETIME-USE SMARTSET# [id number] Completed 08/04/2021 GARDASIL-HPV IMMUNIZATION SERIES Aged Out No longer eligible based on patient's age to complete this topic MENINGOCOCCAL (MENACTRA/MENVEO) Aged Out No longer eligible based on patient's age to complete this topic documented as of this encounter Medical Devices Not on filedocumented as of this encounter Care Teams Rocket Motor Mechanic Relationship Specialty Start Date End Date Anahy Grayson MD [address] [place], [place] [id number] PCP - General Internal Medicine 01/27/22 documented as of this encounter
--- OUTSIDE RECORDS SUMMARY | 2023-08-13 00:13 | External Medical Summary | Summary of Care ---
Author Name Unknown Organization [facility] Address [address] [facility] [address] Phone [phone] Care Team Providers Care Outpatient Psychiatrist Name Role Phone Anahy Grayson MD Primary Care Provider [phone] Reason for Visit * Reason Onset Date Comments [facility]: Maintenance 06/22/2023 Encounter Details Date Type Department Care Team (Late st Contact Info) Description 06/22/2023 Telephone [facility], [facility] 132 [facility] [place] [address] [facility], Nurse [facility] 132 [place] [address] [facility]: Maintenance Allergies No known active allergiesdocumented as of this encounter (statuses as of 06/22/2023) Medications Medication Sig Dispensed Refills Start Date End Date Status Aspirin 81 MG Oral Tablet Delayed Release Take 1 Tablet by mouth in the morning. 0 Active Spiriva Respimat 2.5 MCG/ACT Inhalation Aerosol Solution (Tiotropium [place] Monohydrate) Inhale by mouth 2 Puffs in [...] Oral Tablet (Crestor)Indication s:Coronary artery disease involving [place] coronary artery of [place] heart without angina pectoris,HFrEF (heart failure with reduced ejection fraction) ([facility]),HTN, goal below 140/90,Dyslipidemia , goal LDL below [...] sites with positive rheumatoid factor ([facility]) Take one to two tablets by mouth [...] sites with positive rheumatoid factor ([facility]) Inject 1.14 mL under the skin every 14 days. 2.28 mL 11 03/05/2023 Active Omeprazole 40 MG Oral Capsule Delayed Release (PriLOSEC) Take 1 Capsule by mouth in the morning. 1 hour before the first meal of the day.. 90 Capsule 3 03/15/2023 Active Sildenafil Citrate 20 MG Oral Tablet (Revatio)Indication s:Raynaud's disease with gangrene ([facility]) TAKE ONE TABLET BY MOUTH EVERY MORNING [...] failure with reduced ejection fraction) ([facility]) TAKE 1 TABLET BY MOUTH EVERY MORNING 90 Tablet 3 05/08/2023 Active oxyCODONE-Acetamino phen 5-325 MG Oral Tablet (Percocet)Indicatio ns:Rheumatoid arthritis involving multiple sites with positive rheumatoid factor ([facility]),DDD (degenerative disc disease), lumbar,Thoracic compression fracture, closed, initial encounter ([facility]),Old tear of lateral meniscus of knee, unspecified laterality, unspecified tear type Take 1 Tablet by mouth every 6 hours as needed for Pain, Severe or Pain, Moderate. 120 Tablet 0 06/04/2023 Active Furosemide 20 MG Oral Tablet (Lasix)Indications: HFrEF (heart failure with reduced ejection fraction) ([facility]) Take 2 Tablets by mouth in the morning. 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 TT message sent to Cindy Underwood, his [facility]. MARAH Castillo Flight Reservations Manager [facility] documented in this encounter Plan of Treatment Upcoming Encounters Date Type Department Care Team (Late st Contact Info) Description 06/22/2023 2:30 PM EST [facility] Visit [facility], [facility] 132 [facility] [place] [address] Cindy Underwood RN 132 [facility] [place] [address] 08/21/2023 12:30 PM EDT Therapy Neuropsychology [facility] [address] [facility] [place] [address] Logan Morales, PhD 200 [place] [address] 09/06/2023 3:20 PM EDT Office Visit Neurology [facility] [address] [facility] [place] [address] Aparna Ruano PA-C 200 [place] [address] 09/11/2023 9:40 AM EDT Office Visit Rheumatology [address] [place] [address] Jimmy Giang MD [address] [place] [address] [place] [address] 09/17/2023 1:40 PM EDT Office Visit [facility] [address] [facility] [place] [address] Anahy Grayson MD [address] [facility] [place] [address] Scheduled Procedures Name Priority Associated Diagnoses [...] YEARLY 10/14/2023 10/13/2022, 08/28/2022 DXA Scan 12/07/2023 12/06/2021 Pneumococcal Vaccine: Pediatrics (0 to 5 [...] D LEVEL ONCE IN A LIFETIME-USE SMARTSET# [id number] Completed 08/04/2021 GARDASIL-HPV IMMUNIZATION SERIES Aged Out No longer eligible based on patient's age to complete this topic MENINGOCOCCAL (MENACTRA/MENVEO) Aged Out No longer eligible based on patient's age to complete this topic documented as of this encounter Medical Devices Not on filedocumented as of this encounter Care Teams Outpatient Psychiatrist Relationship Specialty Start Date End Date Anahy Grayson MD [address] [place] [address] PCP - General Internal Medicine 01/27/22 documented as of this encounter
--- OUTSIDE RECORDS SUMMARY | 2023-08-13 00:13 | External Medical Summary | Summary of Care ---
Author Name Unknown Organization [facility] [address] [facility] [address] Phone [phone] Care Team Providers Care Tire Service Technician Name Role Phone Anahy Grayson MD Primary Care Provider [phone] Reason for Visit * Reason Comments [facility]: Maintenance Encounter Details Date Type Department Care Team (Late st Contact Info) Description 06/22/2023 2:30 PM EST [facility], [facility] [place] [address] Cindy Underwood, RN 132 [facility] [place] [address] Allergies No known active allergiesdocumented as of this encounter (statuses as of 06/24/2023) Medications Medication Sig Dispensed Refills Start Date End Date Status Aspirin 81 MG Oral Tablet Delayed Release Take 1 Tablet by mouth in the morning. 0 Active Spiriva Respimat 2.5 MCG/ACT Inhalation Aerosol Solution (Tiotropium [place] Monohydrate) Inhale by mouth 2 Puffs in [...] Oral Tablet (Crestor)Indication s:Coronary artery disease involving [place] coronary artery of [place] heart without angina pectoris,HFrEF (heart failure with [...] 04/20/2023 Sarilumab 200 MG/1.14ML Subcutaneous Solution Auto-injector ([employer])Indication s:Rheumatoid arthritis involving multiple sites with positive [...] (Revatio)Indication s:Raynaud's disease with gangrene ([facility]) TAKE ONE TABLET BY MOUTH EVERY [...] failure with reduced ejection fraction) ([facility]) TAKE 1 TABLET BY MOUTH EVERY MORNING 90 Tablet 3 05/08/2023 Active oxyCODONE-Acetamino phen 5-325 MG Oral Tablet (Percocet)Indicatio ns:Rheumatoid arthritis involving multiple sites with positive rheumatoid factor (HCC),DDD (degenerative disc disease), lumbar,Thoracic compression fracture, closed, initial encounter ([facility]),Old tear of lateral meniscus of knee, unspecified laterality, unspecified tear type Take 1 Tablet by mouth every 6 hours as needed for Pain, Severe or Pain, Moderate. 120 Tablet 0 06/04/2023 Active Furosemide 20 MG Oral Tablet (Lasix)Indications: HFrEF (heart failure with reduced ejection fraction) ([facility]) Take 2 Tablets by mouth in the morning. 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 06/23/2022 Scoliosis 06/23/2022 SVT [...] as of this encounter (statuses as of 06/24/2023) Resolved Problems Problem Noted Date Diagnosed Date [...] as of this encounter (statuses as of 06/24/2023) Immunizations Name Administration Dates Next Due HepA [...] Sign Reading Time Taken Comments Blood Pressure 118/82 06/22/2023 2:08 PM EST Pulse 75 06/22/2023 2:08 PM EST Temperature 35.9 C (96.7 F) 06/22/2023 2:08 PM ES T Respiratory Rate 18 06/22/2023 2:08 PM EST Oxygen Saturation 99% 06/22/2023 2:08 PM EST Inhaled Oxygen Concentration - - Weight 89.5 kg (197 lb 4.8 oz) 06/22/2023 2:08 P M EST Height - - Body Mass Index 30 05/17/2023 1:17 PM EST documented in this encounter Progress Notes * Cindy Underwood, RN - 06/22/2023 1:25 PM EST Images from the original note were not included. [facility] Nutrition Specialist Visit Date: 06/22/2023 Time: 2:25 PM Name: Harrison Morgan : 1965 Current Concerns: Pt seen for return RNCM visit Wt today is 197.3 lbs during visit (Was 200 lbs on 05/20 last visit ) Pt reports he has not checked in some time Brother unexpectedly and pt has been grieving his loss Vitals stable Lungs clear bilaterally Pt reports he has been taking medicines as prescribed Did have a fall within the past 2 weeks - slipped outside on ice Also has been having increased left knee pain. There is some mild redness of the inner thigh No warmth noted of the redness - cool to touch Has RA so joint pain is not unusual for him but feels it has been worse than normal TT to FRANSISCA Mitchell with assessment, pic of Left inner leg - Will continue to monitor - if redness or pain worsens or pain does not improve - pt instructed to call [facility] for possible xray to be ordered, per Shannon Mitchell PA-C Appears euvolemic today No LE edema Lungs clear bilaterally Denies abdominal bloating or increased SOB worse than baseline Physical Exam: BP 118/82 | Pulse 75 | Temp 35.9 C (96.7 F) | Resp 18 | Wt 89.5 kg (197 lb 4.8 oz) | SpO2 99% | BMI 30.00 kg/m | BSA 2.07 m Pain 3 Physical Exam Constitutional: General: He is not in acute distress. Cardiovascular: Rate and Rhythm: Normal rate and regular rhythm. Pulses: Normal pulses. Heart sounds: Normal heart sounds. Pulmonary: Effort: Pulmonary effort is normal. Breath sounds: Normal breath sounds. Abdominal: Palpations: Abdomen is soft. Skin: Findings: Erythema (mild redness left inner thigh, no warmth or edema) present. Neurological: Mental Status: He is alert and oriented to person, place, and time. Problems/Symptoms: Review of Systems HENT: Negative. Eyes: Negative. Respiratory: Positive for shortness of breath (at baseline). Cardiovascular: Negative. Gastrointestinal: Negative. Genitourinary: Negative. Musculoskeletal: Positive for arthralgias, back pain and gait problem. Psychiatric/Behavioral: Negative. Medication Reconciliation: (See medication list) Does patient take medications as ordered: Yes Patient Well Being: PHQ2/9: Myc Visit Accident Related Question Question 06/21/2023 7:19 PM EST - Filed by Patient Is this visit related to an accident? (i.e work, motor vehicle) No No change in living situation [facility] Completed this Visit: Yes. [facility]: Reason Completed: Status post fall [facility]-10 Interventions: Fall education provided, reviewed/provided Fall brochure Advanced Care Planning: No documentation, ACP on file. Reinforcement/Education: Reviewed HF symptom monitoring: -Weigh self daily [...] if at night -increased fatigue or vertigo Educated on home safety: Create a fall [...] exercises that will be right for you. Reinforced safety education and fall prevention. and Reinforced medication regimen. Timing., Dosing., and Purspose. Treatment/Plan: Continue meds as prescribed Weigh daily and record Dry wt around 197 lbs Low Na diet Fall precautions- use cane at all times F/u with rheumatology for RA F/u with pulmonology F/u with neurology Home Interventions Provided: Home Intervention: Other; eval Consulted PCP/Specialist Reinforced current Plan of Care, including self-management and medication regimen Patient's 'Red Flags': Wt gain of 3 lbs in 24 hrs or 5 lbs in one week Increased SOB Dizziness/weakness Patient Needs to Remember: Call [facility] at with any new or worsening health concerns or problems, red flag symptoms. Referrals Needed: Other none Follow Up: Is there cellular connectivity/connectivity in the home? No Does the patient have internet in the home? Yes Patient encouraged to call the intake phone number for all urgent but not emergent issues. Is the patient new to [facility] within the last 30 days? No, Assess appropriateness for upcoming telehealth visits. Cancel telehealth visits & schedule home visit with care steam fitter helper(s)as indicated. Provider is in agreement with Plan of Care: Yes Scheduled to follow up with patient in 3-4 weeks. Cindy Underwood RN 06/22/2023 2:25 PM documented in this encounter Plan of Treatment Upcoming Encounters Date Type Department Care Team (Late st Contact Info) Description 07/18/2023 4:00 PM EST [facility] [address] [place] [address] Cindy Underwood RN [address] [place] [address] 08/21/2023 12:30 PM EDT Therapy Neuropsychology [facility] [address] [facility] [place] [address] Logan Morales, PhD [address] [facility] [place] [address] 09/06/2023 3:20 PM EDT Office Visit Neurology [facility] [address] [facility] [place] [address] Aparna Ruano PA-C [address] [facility] [place] [address] 09/11/2023 9:40 AM EDT Office Visit Rheumatology [place] [address] [email or web address] [place] [address] Jimmy Giang MD [address] [place] [address] 09/17/2023 1:40 PM EDT Office Visit [facility] [address] [place] [phone] Anahy Grayson MD [address] [place] [address] Scheduled Procedures Name Priority Associated Diagnoses Date/Ti me COLONOSCOPY FLEXIBLE PROXIMAL DIAGNOSTIC Recall Colon cancer screening Health Maintenance Due Date Last Done Comments DISCUSS TOBACCO CESSATION (REFER TO SMARTSET #9665) 1965 COVID-19 Vaccine (#1) 02/09/1969 Alpha-1 Antitrypsin [...] D LEVEL ONCE IN A LIFETIME-USE SMARTSET# 68005 Completed 08/04/2021 GARDASIL-HPV IMMUNIZATION SERIES Aged Out No longer eligible based on patient's age to complete this topic MENINGOCOCCAL (MENACTRA/MENVEO) Aged Out No longer eligible based on patient's age to complete this topic documented as of this encounter Medical Devices Not on filedocumented as of this encounter Care Teams Tire Service Technician Relationship Specialty Start Date End Date Anhay Grayson MD [address] [place] [address] PCP - General Internal Medicine 01/27/22 documented as of this encounter
--- OUTSIDE RECORDS SUMMARY | 2023-08-13 00:13 | External Medical Summary | Summary of Care ---
Author Name Unknown Organization [facility] Address [address] [facility] [address] Phone [phone] Care Team Providers Care Smoke Control Supervisor Name Role Phone Anahy Grayson MD Primary Care Provider Reason for Visit * Reason Onset Date Comments Encounter Created in Error 06/22/2023 Encounter Details Date Type Department Care Team (Late st Contact Info) Description 06/22/2023 Telephone [facility], [facility] [address] [place] [address] Cindy Underwood, RN [address] [place] [address] Encounter Created in Error Allergies No known active allergiesdocumented as of this encounter (statuses as of 06/23/2023) Medications Medication Sig Dispensed Refills Start Date End Date Status Aspirin 81 MG Oral Tablet Delayed Release Take 1 Tablet by mouth in the morning. 0 Active Spiriva Respimat 2.5 MCG/ACT Inhalation Aerosol Solution (Tiotropium [place] Monohydrate) Inhale by mouth 2 Puffs in [...] Oral Tablet (Crestor)Indication s:Coronary artery disease involving [place] coronary artery of [place] heart without angina pectoris,HFrEF (heart failure with [...] as of this encounter (statuses as of 06/23/2023) Active Problems Problem Noted Date Diagnosed Date [...] dose Rx Exacerbation plan o Chest Xray [facility] systemic steroid user 06/23/2022 Scoliosis 06/23/2022 SVT [...] as of this encounter (statuses as of 06/23/2023) Resolved Problems Problem Noted Date Diagnosed Date [...] as of this encounter (statuses as of 06/23/2023) Immunizations Name Administration Dates Next Due HepA [...] encounter Miscellaneous Notes * Telephone Encounter - Karley Heller LPN - 06/22/2023 3:12 PM EST Please advise? No information in note Karley Heller LPN [facility] 06/22/2023,3:12 PM documented in this encounter Plan of Treatment Upcoming Encounters Date Type Department Care Team (Late st Contact Info) Description 07/18/2023 4:00 PM EST [facility], [facility] [address] [place] [address] Cindy Underwood, RN [address] [place] [address] 08/21/2023 12:30 PM EDT Therapy Neuropsychology [facility] 200 [place] [address] Logan Morales, PhD [address] [place] [address] 09/06/2023 3:20 PM EDT Office Visit Neurology [facility] [address] [facility] [place] [address] Aparna Ruano PA-C [address] [facility] [place] [address] 09/11/2023 9:40 AM EDT Office Visit Rheumatology [address] [place] [address] Jimmy Giang MD [facility] [email or web address] [facility] [place] [address] 09/17/2023 1:40 PM EDT Office Visit [facility] [address] [place] [phone] Anahy Grayson MD [address] [place], [place] [phone] Scheduled Procedures Name Priority Associated Diagnoses Date/Ti [...] D LEVEL ONCE IN A LIFETIME-USE SMARTSET# 55688 Completed 08/04/2021 GARDASIL-HPV IMMUNIZATION SERIES Aged Out No longer eligible based on patient's age to complete this topic MENINGOCOCCAL (MENACTRA/MENVEO) Aged Out No longer eligible based on patient's age to complete this topic documented as of this encounter Medical Devices Not on filedocumented as of this encounter Care Teams Smoke Control Supervisor Relationship Specialty Start Date End Date Anahy Grayson MD [address], [place] [phone] PCP - General Internal Medicine 01/27/22 documented as of this encounter
--- OUTSIDE RECORDS SUMMARY | 2023-08-13 00:13 | External Medical Summary | Summary of Care ---
Author Name Unknown Organization [facility] Address [address] [facility] [address] Phone [phone] Care Team Providers Care Soft Work Wrapper Examiner Name Role Phone Anahy Grayson MD Primary Care Provider Reason for Visit * Reason Onset Date Comments [facility]: Maintenance 06/22/2023 Encounter Details Date Type Department Care Team (Late st Contact Info) Description 06/22/2023 Telephone [facility], [facility] [address] [place] [address] Cindy Underwood RN [address] [place] [address] [facility]: Maintenance Allergies No known active allergiesdocumented as of this encounter (statuses as of 06/22/2023) Medications Medication Sig Dispensed Refills Start Date End Date Status Aspirin 81 MG Oral Tablet Delayed Release Take 1 Tablet by mouth in the morning. 0 Active Spiriva Respimat 2.5 MCG/ACT Inhalation Aerosol Solution (Tiotropium [place] Monohydrate) Inhale by mouth 2 Puffs in [...] Oral Tablet (Crestor)Indication s:Coronary artery disease involving [place] coronary artery of [place] heart without angina pectoris,HFrEF (heart failure with reduced ejection fraction) ([facility]),HTN, goal below 140/90,Dyslipidemia , goal LDL [...] positive rheumatoid factor ([facility]) Inject 1.14 mL under the skin every 14 days. 2.28 mL 11 03/05/2023 Active Omeprazole 40 MG Oral Capsule Delayed Release (PriLOSEC) Take 1 Capsule by mouth in the morning. 1 hour before the first meal of the day.. 90 Capsule 3 03/15/2023 Active Sildenafil Citrate 20 MG Oral Tablet (Revatio)Indication s:Raynaud's disease with gangrene ([facility]) TAKE ONE TABLET BY MOUTH EVERY [...] with positive rheumatoid factor ([facility]),DDD (degenerative disc disease), lumbar,Thoracic compression fracture, closed, initial encounter ([facility]),Old tear of lateral meniscus of knee, [...] Visit [facility], [facility] [place] [address] Cindy Underwood, RN [address] [place] [address] 08/21/2023 12:30 PM EDT Therapy Neuropsychology [facility] 200 [place] [address] Logan Morales, PhD 200 [place] [address] 09/06/2023 3:20 PM EDT Office Visit Neurology [facility] 200 [place] [address] Aparna Ruano PA-C 200 [place] [address] 09/11/2023 9:40 AM EDT Office Visit Rheumatology [address] [place] [address] Jimmy Giang MD [facility] [place], [place] [address] 09/17/2023 1:40 PM EDT Office Visit [facility] [address] [place] [phone] Anahy Grayson MD [address], [place] [phone] Scheduled Procedures Name Priority Associated Diagnoses Date/Ti [...] D LEVEL ONCE IN A LIFETIME-USE SMARTSET# 97816 Completed 08/04/2021 GARDASIL-HPV IMMUNIZATION SERIES Aged Out No longer eligible based on patient's age to complete this topic MENINGOCOCCAL (MENACTRA/MENVEO) Aged Out No longer eligible based on patient's age to complete this topic documented as of this encounter Medical Devices Not on filedocumented as of this encounter Care Teams Soft Work Wrapper Examiner Relationship Specialty Start Date End Date Anahy Grayson MD [address] [place] [address] PCP - General Internal Medicine 01/27/22 documented as of this encounter
--- OUTSIDE RECORDS SUMMARY | 2023-08-13 00:13 | External Medical Summary | Summary of Care ---
Author Name Unknown Organization [facility] Address [address] [facility] [address] Phone [phone] Care Team Providers Care Wrapper Rewinder Name Role Phone Anahy Grayson MD Primary Care Provider [phone] Reason for Visit * Reason Onset Date Comments [facility]: Maintenance 06/22/2023 Encounter Details Date Type Department Care Team (Late st Contact Info) Description 06/22/2023 Telephone [facility], [facility] [address] [place] [address] Cindy Underwood RN [address] [place] [address] [facility]: Maintenance Allergies No known active allergiesdocumented as of this encounter (statuses as of 06/22/2023) Medications Medication Sig Dispensed Refills Start Date End Date Status Aspirin 81 MG Oral Tablet Delayed Release Take 1 Tablet by mouth in the morning. 0 Active Spiriva Respimat 2.5 MCG/ACT Inhalation Aerosol Solution (Tiotropium [place] Monohydrate) Inhale by mouth 2 Puffs in [...] Oral Tablet (Crestor)Indication s:Coronary artery disease involving [place] coronary artery of [place] heart without angina pectoris,HFrEF (heart failure with reduced ejection fraction) ([facility]),HTN, goal below 140/90,Dyslipidemia , goal [...] involving multiple sites with positive rheumatoid factor ([facility]) Take one to two tablets [...] involving multiple sites with positive rheumatoid factor ([facility]) Inject 1.14 mL under the skin every 14 days. 2.28 mL 11 03/05/2023 Active Omeprazole 40 MG Oral Capsule Delayed Release (PriLOSEC) Take 1 Capsule by mouth in the morning. 1 hour before the first meal of the day.. 90 Capsule 3 03/15/2023 Active Sildenafil Citrate 20 MG Oral Tablet (Revatio)Indication s:Raynaud's disease with gangrene ([facility]) TAKE ONE TABLET BY MOUTH [...] cations:HFrEF (heart failure with reduced ejection fraction) ([facility]) TAKE 1 TABLET BY MOUTH EVERY MORNING 90 Tablet 3 05/08/2023 Active oxyCODONE-Acetamino phen 5-325 MG Oral Tablet (Percocet)Indicatio ns:Rheumatoid arthritis involving multiple sites with positive rheumatoid factor ([facility]),DDD (degenerative disc disease), lumbar,Thoracic compression fracture, closed, initial encounter ([facility]),Old tear of lateral meniscus of knee, unspecified laterality, unspecified tear type Take 1 Tablet by mouth every 6 hours as needed for Pain, Severe or Pain, Moderate. 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 06/23/2022 Scoliosis 06/23/2022 SVT [...] Description 07/18/2023 4:00 PM EST [facility] [address] [place] [address] Cindy Underwood RN [address] [place] [address] 08/21/2023 12:30 PM EDT Therapy Neuropsychology [facility] [address] [facility] [place] [address] Logan Morales, PhD [facility] [place] [address] 09/06/2023 3:20 PM EDT Office Visit Neurology [facility] [address] [facility] [place] [address] Aparna Ruano PA-C [address] [facility] [place] [address] 09/11/2023 9:40 AM EDT Office Visit Rheumatology [place] [address] [employer] [place] [address] Jimmy Giang MD [facility] [employer] [place] [address] 09/17/2023 1:40 PM EDT Office Visit [facility] [address] [place] [address] Anahy Grayson MD [address] [place], [place] [phone] Scheduled Procedures Name Priority Associated Diagnoses Date/Ti [...] D LEVEL ONCE IN A LIFETIME-USE SMARTSET# 94437 Completed 08/04/2021 GARDASIL-HPV IMMUNIZATION SERIES Aged Out No longer eligible based on patient's age to complete this topic MENINGOCOCCAL (MENACTRA/MENVEO) Aged Out No longer eligible based on patient's age to complete this topic documented as of this encounter Medical Devices Not on filedocumented as of this encounter Care Teams Wrapper Rewinder Relationship Specialty Start Date End Date Anahy Grayson MD [address] [place] [address] PCP - General Internal Medicine 01/27/22 documented as of this encounter
--- OUTSIDE RECORDS SUMMARY | 2023-08-13 00:14 | External Medical Summary | Summary of Care ---
Author Name Unknown Organization [facility] Address [address] [place] [address] Phone [phone] Care Team Providers Care Security System Administrator Name Role Phone Anahy Grayson MD Primary Care Provider [phone] Reason for Visit * Reason Onset Date Comments Pre Cert/Prior Auth 06/07/2023 Oxycodone 5- 325 mg Encounter Details Date Type Department Care Team (Late st Contact Info) Description 06/07/2023 Telephone [facility] [address] [place] [address] Anahy Grayson MD [address] [place] [address] Pre Cert/Prior Auth (Oxycodone 5-325 mg) Allergies No known active allergiesdocumented as of this encounter (statuses as of 06/07/2023) Medications Medication Sig Dispensed Refills Start Date End Date Status Aspirin 81 MG Oral Tablet Delayed Release Take 1 Tablet by mouth in the morning. 0 Active Spiriva Respimat 2.5 MCG/ACT Inhalation Aerosol Solution (Tiotropium [place] Monohydrate) Inhale by mouth 2 Puffs in [...] Oral Tablet (Crestor)Indication s:Coronary artery disease involving [place] coronary artery of [place] heart without angina pectoris,HFrEF (heart failure with reduced ejection fraction) ([facility]),HTN, goal below 140/90,Dyslipidemia , goal LDL below [...] involving multiple sites with positive rheumatoid factor ([facility]) Take one to two tablets by mouth daily for rheumatoid arthritis. 60 Tablet 2 03/05/2023 Active Additional Information Patient taking differently: 10 mg Oral DAILY PRN, flare up for RA, Take one to two tablets by mouth daily for rheumatoid arthritis as needed, Reported on 04/20/2023 Sarilumab 200 MG/1.14ML Subcutaneous Solution Auto-injector (Kevzara)Indication s:Rheumatoid arthritis involving multiple sites with positive rheumatoid factor ([facility]) Inject 1.14 mL under the skin every 14 days. 2.28 mL 11 03/05/2023 Active Omeprazole 40 MG Oral Capsule Delayed Release (PriLOSEC) Take 1 Capsule by mouth in the morning. 1 hour before the first meal of the day.. 90 Capsule 3 03/15/2023 Active Sildenafil Citrate 20 MG Oral Tablet (Revatio)Indication s:Raynaud's disease with gangrene ([facility]) TAKE ONE TABLET BY MOUTH EVERY MORNING [...] cations:HFrEF (heart failure with reduced ejection fraction) ([facility]) TAKE 1 TABLET BY MOUTH EVERY MORNING 90 Tablet 3 05/08/2023 Active oxyCODONE-Acetamino phen 5-325 MG Oral Tablet (Percocet)Indicatio ns:Rheumatoid arthritis involving multiple sites with positive rheumatoid factor ([facility]),DDD (degenerative disc disease), lumbar,Thoracic compression fracture, closed, initial encounter ([facility]),Old tear of lateral meniscus of knee, unspecified laterality, unspecified tear type Take 1 Tablet by mouth every 6 hours as needed for Pain, Severe or Pain, Moderate. 120 Tablet 0 06/04/2023 Active Furosemide 20 MG Oral Tablet (Lasix)Indications: HFrEF (heart failure with reduced ejection fraction) ([facility]) Take 2 Tablets by mouth in the morning. 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 * Telephone Encounter - Cynthia Alcantar PHARM Tech - 06/07/2023 10:11 AM EST Patients insurance would like to inform the office that oxycodone 5-325 mg is requiring additional information: office notes and urine drug screen. Prior authorization entered in PromptPA at [facility]# [id number] Please fax to [phone] before 4 today. Thank you, Cynthia Alcantar, [facility] Managing Attorney II Centralized Clinical Pharmacy Services(CCPS)(Formerly Telepharmacy) 06/07/2023,10:12 AM documented in this encounter Plan of Treatment Upcoming Encounters Date Type Department Care Team (Late st Contact Info) Description 06/22/2023 2:30 PM EST Home Visit [facility] [address] [facility] [place] [address] Cindy Underwood, RN [address] [facility] [place] [address] 08/21/2023 12:30 PM EDT Therapy Neuropsychology [facility] [address] [facility] [place] [address] Logan Morales, PhD [address] [facility] [place] [address] 09/06/2023 3:20 PM EDT Office Visit Neurology [facility] [place] [address] [facility] [place] [address] Aparna Ruano PA-C [address] [facility] [place] [address] 09/11/2023 9:40 AM EDT Office Visit Rheumatology [place] [address] Debbie Corbin [place] [address] Jimmy Giang MD [address] [place] [address] 09/17/2023 1:40 PM EDT Office Visit [facility] [address] [place] [facility] [place] [address] Anahy Grayson MD [address] [facility] [place] [address] Scheduled Procedures Name Priority Associated Diagnoses [...] D LEVEL ONCE IN A LIFETIME-USE SMARTSET# [id number] Completed 08/04/2021 GARDASIL-HPV IMMUNIZATION SERIES Aged Out No longer eligible based on patient's age to complete this topic MENINGOCOCCAL (MENACTRA/MENVEO) Aged Out No longer eligible based on patient's age to complete this topic documented as of this encounter Medical Devices Not on filedocumented as of this encounter Care Teams Security System Administrator Relationship Specialty Start Date End Date Anahy Grayson MD [address] [facility] [place] [address] PCP - General Internal Medicine 01/27/22 documented as of this encounter
--- OUTSIDE RECORDS SUMMARY | 2023-08-13 00:14 | External Medical Summary | Summary of Care ---
Author Name Unknown Organization [facility] Address [address] [place] [address] Phone [phone] Care Team Providers Care Picker Tender Name Role Phone Anahy Grayson MD Primary Care Provider [phone] Encounter Details Date Type Department Care Team (Late st Contact Info) Description 06/07/2023 Telephone [facility] [address] [place] [address] Anahy Grayson MD [address] [place] [address] Allergies No known active allergiesdocumented as of this encounter (statuses as of 06/15/2023) Medications Medication Sig Dispensed Refills Start Date End Date Status Aspirin 81 MG Oral Tablet Delayed Release Take 1 Tablet by mouth in the morning. 0 Active Spiriva Respimat 2.5 MCG/ACT Inhalation Aerosol Solution (Tiotropium [place] Monohydrate) Inhale by mouth 2 Puffs in [...] Oral Tablet (Crestor)Indication s:Coronary artery disease involving [place] coronary artery of [place] heart without angina pectoris,HFrEF (heart failure with [...] as of this encounter (statuses as of 06/15/2023) Active Problems Problem Noted Date Diagnosed Date [...] as of this encounter (statuses as of 06/15/2023) Resolved Problems Problem Noted Date Diagnosed Date [...] as of this encounter (statuses as of 06/15/2023) Immunizations Name Administration Dates Next Due HepA [...] Encounter - Allison Esteban LPN - 06/07/2023 8:28 AM EST Prior auth sent through [employer] for oxycodone-kendell tab. The ID number is [id number] documented in this encounter Plan of Treatment Upcoming Encounters Date Type Department Care Team (Late st Contact Info) Description 06/22/2023 2:30 PM EST [facility] [address] [place] [address] Cindy Underwood, RN [address] [place] [address] 08/21/2023 12:30 PM EDT Therapy Neuropsychology [facility] [address] [facility] [place] [address] Logan Morales, PhD [address] [facility] [place] [address] 09/06/2023 3:20 PM EDT Office Visit Neurology [facility] [address] [facility] [place] [address] Aparna Ruano PA-C [address] [facility] [place] [address] 09/11/2023 9:40 AM EDT Office Visit Rheumatology [place] [address] [employer] [place] [address] Jimmy Giang MD [facility] [employer] [facility] [place], [place] [address] 09/17/2023 1:40 PM EDT Office Visit [facility] [address] [place] [id number] Anahy Grayson MD [address] [place] [address] Scheduled Procedures Name Priority Associated Diagnoses Date/Ti me COLONOSCOPY FLEXIBLE PROXIMAL DIAGNOSTIC Recall Colon cancer screening Health Maintenance Due Date Last Done Comments DISCUSS TOBACCO CESSATION (REFER TO SMARTSET #8223) 1965 COVID-19 Vaccine (#1) 02/09/1969 Alpha-1 Antitrypsin [...] D LEVEL ONCE IN A LIFETIME-USE SMARTSET# [id number] Completed 08/04/2021 GARDASIL-HPV IMMUNIZATION SERIES Aged Out No longer eligible based on patient's age to complete this topic MENINGOCOCCAL (MENACTRA/MENVEO) Aged Out No longer eligible based on patient's age to complete this topic documented as of this encounter Medical Devices Not on filedocumented as of this encounter Care Teams Picker Tender Relationship Specialty Start Date End Date Anahy Grayson MD [address] [place] [address] PCP - General Internal Medicine 01/27/22 documented as of this encounter
--- OUTSIDE RECORDS SUMMARY | 2023-08-13 00:14 | External Medical Summary | Summary of Care ---
Author Name Unknown Organization [facility] Address [address] [place] [address] Phone [phone] Care Team Providers Care Outbound Sales Representative Name Role Phone Anahy Grayson MD Primary Care Provider [phone] Reason for Visit * Reason Onset Date Comments Pre Cert/Prior Auth 06/07/2023 Oxycodone 5- 325 mg Encounter Details Date Type Department Care Team (Late st Contact Info) Description 06/07/2023 Telephone [facility] [address] [place] [address] Anahy Grayson MD [address] [place] [address] Pre Cert/Prior Auth (Oxycodone 5-325 mg) Allergies No known active allergiesdocumented as of this encounter (statuses as of 06/07/2023) Medications Medication Sig Dispensed Refills Start Date End Date Status Aspirin 81 MG Oral Tablet Delayed Release Take 1 Tablet by mouth in the morning. 0 Active Spiriva Respimat 2.5 MCG/ACT Inhalation Aerosol Solution (Tiotropium [place] Monohydrate) Inhale by mouth 2 Puffs in [...] Oral Tablet (Crestor)Indication s:Coronary artery disease involving [place] coronary artery of [place] heart without angina pectoris,HFrEF (heart failure with reduced ejection fraction) ([facility]),HTN, goal below 140/90,Dyslipidemia , goal LDL [...] sites with positive rheumatoid factor ([facility]) Take one to two tablets by [...] sites with positive rheumatoid factor ([facility]) Inject 1.14 mL under the skin every 14 days. 2.28 mL 11 03/05/2023 Active Omeprazole 40 MG Oral Capsule Delayed Release (PriLOSEC) Take 1 Capsule by mouth in the morning. 1 hour before the first meal of the day.. 90 Capsule 3 03/15/2023 Active Sildenafil Citrate 20 MG Oral Tablet (Revatio)Indication s:Raynaud's disease with gangrene ([facility]) TAKE ONE TABLET BY MOUTH EVERY [...] failure with reduced ejection fraction) ([facility]) TAKE 1 TABLET BY MOUTH EVERY MORNING 90 Tablet 3 05/08/2023 Active oxyCODONE-Acetamino phen 5-325 MG Oral Tablet (Percocet)Indicatio ns:Rheumatoid arthritis involving multiple sites with positive rheumatoid factor ([facility]),DDD (degenerative disc disease), lumbar,Thoracic compression fracture, closed, initial encounter ([facility]),Old tear of lateral meniscus of knee, unspecified laterality, unspecified tear type Take 1 Tablet by mouth every 6 hours as needed for Pain, Severe or Pain, Moderate. 120 Tablet 0 06/04/2023 Active Furosemide 20 MG Oral Tablet (Lasix)Indications: HFrEF (heart failure with reduced ejection fraction) ([facility]) Take 2 Tablets by mouth in [...] encounter Miscellaneous Notes * Telephone Encounter - Delores Maguire CPhT - 06/07/2023 12:02 PM EST [facility] calling stating they received additional information but pt's member ID number was not attached. Provided [facility] rep with member ID number. Thank you, Delores Maguire Tech 1 Survey Director Centralized Clinical Pharmacy Services (CCPS) (formerly Telepharmacy) 06/07/2023, 12:03 PM * Telephone Encounter - Allison Esteban LPN - 06/07/2023 11:38 AM EST Paperwork faxed over at 11:38am. * Telephone Encounter - Cynthia Alcantar PHARM Tech - 06/07/2023 10:11 AM EST Patients insurance would like to inform the office that oxycodone 5-325 mg is requiring additional information: office notes and urine drug screen. Prior authorization entered in PromptPA at [facility] EOC# [id number] Please fax to [phone] before 4p today. Thank you, Cynthia Alcantar CPhT Inventory Representative II Centralized Clinical Pharmacy Services(CCPS)(Formerly Telepharmacy) 06/07/2023,10:12 AM documented in this encounter Plan of Treatment Upcoming Encounters Date Type Department Care Team (Late st Contact Info) Description 06/22/2023 2:30 PM EST Home Visit [facility] [address] [facility] [place] [address] Cindy Underwood, RN 132 [facility] [place] [address] 08/21/2023 12:30 PM EDT Therapy Neuropsychology [facility] [place] [address] [place] [address] Logan Morales, PhD [address] [place] [address] 09/06/2023 3:20 PM EDT Office Visit Neurology [facility] [place] [address] [place] [address] Aparna Ruano PA-C [address] [place] [address] 09/11/2023 9:40 AM EDT Office Visit Rheumatology [facility] [address] [facility] [place] [address] Jimmy Giang MD [address] [facility] [place] [address] 09/17/2023 1:40 PM EDT Office Visit [facility] [address] [place] [address] Anahy Grayson MD [address] [place] [address] Scheduled Procedures Name Priority Associated Diagnoses Date/Ti me COLONOSCOPY FLEXIBLE PROXIMAL DIAGNOSTIC Recall Colon cancer screening Health Maintenance Due Date Last Done Comments DISCUSS TOBACCO CESSATION (REFER TO SMARTSET #6576) 1965 COVID-19 Vaccine (#1) 02/09/1969 Alpha-1 Antitrypsin [...] D LEVEL ONCE IN A LIFETIME-USE SMARTSET# [id number] Completed 08/04/2021 GARDASIL-HPV IMMUNIZATION SERIES Aged Out No longer eligible based on patient's age to complete this topic MENINGOCOCCAL (MENACTRA/MENVEO) Aged Out No longer eligible based on patient's age to complete this topic documented as of this encounter Medical Devices Not on filedocumented as of this encounter Care Teams Outbound Sales Representative Relationship Specialty Start Date End Date Anahy Grayson MD [address] [place] [facility] [place] [address] PCP - General Internal Medicine 01/27/22 documented as of this encounter
--- OUTSIDE RECORDS SUMMARY | 2023-08-13 00:14 | External Medical Summary | Summary of Care ---
Author Name Unknown Organization [facility] Address [address] [place] [address] Phone [phone] Care Team Providers Care Combination Machine Tool Operator Name Role Phone Anahy Grayson MD Primary Care Provider [phone] Reason for Visit * Reason Onset Date Comments Pre Cert/Prior Auth 06/07/2023 Oxycodone 5- 325 mg Encounter Details Date Type Department Care Team (Late st Contact Info) Description 06/07/2023 Telephone [facility] [address] [place] [address] Anahy Grayson MD [address] [place] [address] Pre Cert/Prior Auth (Oxycodone 5-325 mg) Allergies No known active allergiesdocumented as of this encounter (statuses as of 06/07/2023) Medications Medication Sig Dispensed Refills Start Date End Date Status Aspirin 81 MG Oral Tablet Delayed Release Take 1 Tablet by mouth in the morning. 0 Active Spiriva Respimat 2.5 MCG/ACT Inhalation Aerosol Solution (Tiotropium [place] Monohydrate) Inhale by mouth 2 Puffs in [...] Oral Tablet (Crestor)Indication s:Coronary artery disease involving [place] coronary artery of [place] heart without angina pectoris,HFrEF (heart failure with reduced ejection fraction) ([facility]),HTN, goal below 140/90,Dyslipidemia , goal [...] sites with positive rheumatoid factor ([facility]) Take one to two tablets [...] sites with positive rheumatoid factor ([facility]) Inject 1.14 mL under the skin every 14 days. 2.28 mL 11 03/05/2023 Active Omeprazole 40 MG Oral Capsule Delayed Release (PriLOSEC) Take 1 Capsule by mouth in the morning. 1 hour before the first meal of the day.. 90 Capsule 3 03/15/2023 Active Sildenafil Citrate 20 MG Oral Tablet (Revatio)Indication s:Raynaud's disease with gangrene ([facility]) TAKE ONE TABLET BY MOUTH [...] failure with reduced ejection fraction) ([facility]) TAKE 1 TABLET BY MOUTH EVERY MORNING 90 Tablet 3 05/08/2023 Active oxyCODONE-Acetamino phen 5-325 MG Oral Tablet (Percocet)Indicatio ns:Rheumatoid arthritis involving multiple sites with positive rheumatoid factor ([facility]),DDD (degenerative disc disease), lumbar,Thoracic compression fracture, closed, initial encounter ([facility]),Old tear of lateral meniscus of knee, unspecified laterality, unspecified tear type Take 1 Tablet by mouth every 6 hours as needed for Pain, Severe or Pain, Moderate. 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 Prior authorization entered in Prompt[employer] at [facility]. EOC# [id number] Please fax to [phone] before 4p today. Thank you, Cynthia Alcantar [facility] Supervisor Pyrotechnic Loading II Centralized Clinical Pharmacy Services(CCPS)(Formerly Telepharmacy) 06/07/2023,10:12 AM documented in this encounter Plan of Treatment Upcoming Encounters Date Type Department Care Team (Late st Contact Info) Description 06/22/2023 2:30 PM EST [facility] [address] [facility] [place] [address] Cindy Underwood RN [address] [facility] [place] [address] 08/21/2023 12:30 PM EDT Therapy Neuropsychology [facility] [address] [facility] [place] [address] Logan Morales, PhD [address] [facility] [place] [address] 09/06/2023 3:20 PM EDT Office Visit Neurology [facility] [address] [facility] [place] [address] Aparna Ruano PA-C [address] [facility] [place] [address] 09/11/2023 9:40 AM EDT Office Visit Rheumatology [place] [address] [employer] [place] [address] Jimmy Giang MD [facility] [employer] [place] [address] 09/17/2023 1:40 PM EDT Office Visit [facility] [address] [place] [address] Anahy Grayson MD [address] [place], [place] [address] Scheduled Procedures Name Priority Associated Diagnoses Date/Ti me COLONOSCOPY FLEXIBLE PROXIMAL DIAGNOSTIC Recall Colon cancer screening Health Maintenance Due Date Last Done Comments DISCUSS TOBACCO CESSATION (REFER TO SMARTSET #2829) 1965 COVID-19 Vaccine (#1) 02/09/1969 Alpha-1 Antitrypsin [...] D LEVEL ONCE IN A LIFETIME-USE SMARTSET# [id number] Completed 08/04/2021 GARDASIL-HPV IMMUNIZATION SERIES Aged Out No longer eligible based on patient's age to complete this topic MENINGOCOCCAL (MENACTRA/MENVEO) Aged Out No longer eligible based on patient's age to complete this topic documented as of this encounter Medical Devices Not on filedocumented as of this encounter Care Teams Combination Machine Tool Operator Relationship Specialty Start Date End Date Anahy Grayson MD [address] [place] [address] PCP - General Internal Medicine 01/27/22 documented as of this encounter
--- OUTSIDE RECORDS SUMMARY | 2023-08-13 00:14 | External Medical Summary | Summary of Care ---
Author Name Unknown Organization [facility] Address [address] [place] [address] Phone [phone] Care Team Providers Care Supplier Development Manager Name Role Phone Anahy Grayson MD Primary Care Provider [phone] Reason for Visit * Reason Onset Date Comments Pre Cert/Prior Auth 06/07/2023 Oxycodone 5- 325 mg Encounter Details Date Type Department Care Team (Late st Contact Info) Description 06/07/2023 Telephone [facility] [address] [place] [address] Anahy Grayson MD [address] [place] [address] Pre Cert/Prior Auth (Oxycodone 5-325 mg) Allergies No known active allergiesdocumented as of this encounter (statuses as of 06/07/2023) Medications Medication Sig Dispensed Refills Start Date End Date Status Aspirin 81 MG Oral Tablet Delayed Release Take 1 Tablet by mouth in the morning. 0 Active Spiriva Respimat 2.5 MCG/ACT Inhalation Aerosol Solution (Tiotropium [place] Monohydrate) Inhale by mouth 2 Puffs in [...] Oral Tablet (Crestor)Indication s:Coronary artery disease involving [place] coronary artery of [place] heart without angina pectoris,HFrEF (heart failure with reduced ejection fraction) ([facility]),HTN, goal below 140/90,Dyslipidemia , goal [...] multiple sites with positive rheumatoid factor ([facility]) Take one to two tablets [...] multiple sites with positive rheumatoid factor ([facility]) Inject 1.14 mL under the skin every 14 days. 2.28 mL 11 03/05/2023 Active Omeprazole 40 MG Oral Capsule Delayed Release (PriLOSEC) Take 1 Capsule by mouth in the morning. 1 hour before the first meal of the day.. 90 Capsule 3 03/15/2023 Active Sildenafil Citrate 20 MG Oral Tablet (Revatio)Indication s:Raynaud's disease with gangrene ([facility]) TAKE ONE TABLET BY MOUTH [...] (heart failure with reduced ejection fraction) ([facility]) TAKE 1 TABLET BY MOUTH EVERY MORNING 90 Tablet 3 05/08/2023 Active oxyCODONE-Acetamino phen 5-325 MG Oral Tablet (Percocet)Indicatio ns:Rheumatoid arthritis involving multiple sites with positive rheumatoid factor ([facility]),DDD (degenerative disc disease), lumbar,Thoracic compression fracture, closed, initial encounter ([facility]),Old tear of lateral meniscus of knee, unspecified laterality, unspecified tear type Take 1 Tablet by mouth every 6 hours as needed for Pain, Severe or Pain, Moderate. 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 Prior authorization entered in PromptPA at [facility] EOC# [id number] Please fax to [phone] before 4p today. Thank you, Cynthia Alcantar [facility] Pearler II Centralized Clinical Pharmacy Services(CCPS)(Formerly Telepharmacy) 06/07/2023,10:12 AM documented in this encounter Plan of Treatment Upcoming Encounters Date Type Department Care Team (Late st Contact Info) Description 06/22/2023 2:30 PM EST [facility] [address] [facility] [place] [address] Cindy Underwood RN 132 [facility] [place] [address] 08/21/2023 12:30 PM EDT Therapy Neuropsychology [facility] [address] [facility] [place] [address] Logan Morales, PhD [address] [facility] [place] [address] 09/06/2023 3:20 PM EDT Office Visit Neurology [facility] [address] [facility] [place] [address] Aparna Ruano PA-C [address] [facility] [place] [address] 09/11/2023 9:40 AM EDT Office Visit Rheumatology [place] [address] [employer] [place] [address] Jimmy Giang MD [facility] [employer] [place] [address] 09/17/2023 1:40 PM EDT Office Visit [facility] [address] [place] [phone] Anahy Grayson MD [address], [place] [id number] Scheduled Procedures Name Priority Associated Diagnoses Date/Ti me COLONOSCOPY FLEXIBLE PROXIMAL DIAGNOSTIC Recall Colon cancer screening Health Maintenance Due Date Last Done Comments DISCUSS TOBACCO CESSATION (REFER TO SMARTSET #9609) 1965 COVID-19 Vaccine (#1) 02/09/1969 Alpha-1 Antitrypsin [...] D LEVEL ONCE IN A LIFETIME-USE SMARTSET# 38902 Completed 08/04/2021 GARDASIL-HPV IMMUNIZATION SERIES Aged Out No longer eligible based on patient's age to complete this topic MENINGOCOCCAL (MENACTRA/MENVEO) Aged Out No longer eligible based on patient's age to complete this topic documented as of this encounter Medical Devices Not on filedocumented as of this encounter Care Teams Supplier Development Manager Relationship Specialty Start Date End Date Anahy Grayson MD [address] [place] [address] PCP - General Internal Medicine 01/27/22 documented as of this encounter
--- OUTSIDE RECORDS SUMMARY | 2023-08-13 00:14 | External Medical Summary | Summary of Care ---
Author Name Unknown Organization [facility] Address [address] [place] [address] Phone [phone] Care Team Providers Care Geospatial Information Scientist Name Role Phone Anahy Grayson MD Primary Care Provider [phone] Reason for Visit * Reason Onset Date Comments Pre Cert/Prior Auth 06/07/2023 Oxycodone 5- 325 mg Encounter Details Date Type Department Care Team (Late st Contact Info) Description 06/07/2023 Telephone [facility] [address] [place] [address] Anahy Grayson MD [address] [place] [address] Pre Cert/Prior Auth (Oxycodone 5-325 mg) Allergies No known active allergiesdocumented as of this encounter (statuses as of 06/07/2023) Medications Medication Sig Dispensed Refills Start Date End Date Status Aspirin 81 MG Oral Tablet Delayed Release Take 1 Tablet by mouth in the morning. 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 Patient and pharmacy made aware by [facility]. Information will be faxed to the office. Thank you, Lucie Mcdaniel Rehabilitation Medicine Physician I Centralized Clinical Pharmacy Services (CCPS) (Formerly Telepharmacy) 06/07/2023,12:57 PM * Telephone Encounter - Delores Maguire CPhT - 06/07/2023 12:02 PM EST P calling stating they received additional information but pt's member ID number was not attached. Provided [facility] rep with member ID number. Thank you, Gretchen Hutton 1 Loading Machine Tool Setter Centralized Clinical Pharmacy Services (CCPS) (formerly Telepharmacy) [...] screen. Prior authorization entered in PromptPA at [facility]. EOC# [id number] Please fax to [phone] before 4p today. Thank you, Cynthia Alcantar CPhT Director Of Radiology II Centralized Clinical Pharmacy Services(CCPS)(Formerly Telepharmacy) 06/07/2023,10:12 AM documented in this encounter Plan of Treatment Upcoming Encounters Date Type Department Care Team (Late st Contact Info) Description 06/22/2023 2:30 PM EST [facility] [place] [address] [place] [address] Cindy Underwood, RN [address] [place] [address] 08/21/2023 12:30 PM EDT Therapy Neuropsychology [facility] [address] [place] [address] Logan Morales, PhD [address] [facility] [place] [address] 09/06/2023 3:20 PM EDT Office Visit Neurology [facility] [address] [facility] [place] [address] Aparna Ruano PA-C [address] [facility] [place] [address] 09/11/2023 9:40 AM EDT Office Visit Rheumatology [place] [address] [employer] [place] [address] Jimmy Giang MD [address] [employer] [place] [address] 09/17/2023 1:40 PM EDT Office Visit [facility] [address] [place] [address] Anahy Grayson MD [address], [place] [phone] Scheduled Procedures Name Priority Associated Diagnoses Date/Ti me COLONOSCOPY FLEXIBLE PROXIMAL DIAGNOSTIC Recall Colon cancer screening Health Maintenance Due Date Last Done Comments DISCUSS TOBACCO CESSATION (REFER TO SMARTSET #9049) 1965 COVID-19 Vaccine (#1) 02/09/1969 Alpha-1 Antitrypsin [...] D LEVEL ONCE IN A LIFETIME-USE SMARTSET# [id number] Completed 08/04/2021 GARDASIL-HPV IMMUNIZATION SERIES Aged Out No longer eligible based on patient's age to complete this topic MENINGOCOCCAL (MENACTRA/MENVEO) Aged Out No longer eligible based on patient's age to complete this topic documented as of this encounter Medical Devices Not on filedocumented as of this encounter Care Teams Geospatial Information Scientist Relationship Specialty Start Date End Date Anahy Grayson MD [address] [place] [address] PCP - General Internal Medicine 01/27/22 documented as of this encounter
--- OUTSIDE RECORDS SUMMARY | 2023-08-13 00:15 | External Medical Summary | Summary of Care ---
Author Name Unknown Organization [facility] Address [address] [place] [address] Phone [phone] Care Team Providers Care Public Policy Mediator Name Role Phone Anahy Grayson MD Primary Care Provider [phone] Reason for Visit * Reason Onset Date Comments Advice 03/07/2023 Encounter Details Date Type Department Care Team (Late st Contact Info) Description 03/07/2023 Telephone Cardiology, [facility] [address] [facility] [place] [address] Aparna Espinal, DO [address] [facility] [place] [address] Advice Allergies No known active allergiesdocumented as of this encounter (statuses as of 06/06/2023) Medications Medication Sig Dispensed Refills Start Date End Date Status Aspirin 81 MG Oral Tablet Delayed Release Take 1 Tablet by mouth in the morning. 0 Active Spiriva Respimat 2.5 MCG/ACT Inhalation Aerosol Solution (Tiotropium [place] Monohydrate) Inhale by mouth 2 Puffs in [...] Oral Tablet (Crestor)Indicat ions:Coronary artery disease involving [place] coronary artery of [place] heart without angina pectoris,HFrEF (heart failure with reduced ejection fraction) (HCC),HTN, goal below 140/90,Dyslipide leigh, goal LDL below 70,Palpitations TAKE ONE TABLET BY MOUTH EVERY MORNING 30 Tablet 11 3 Active Alendronate Sodium 70 MG Oral Tablet (Fosamax) Take 1 Tablet by mouth once a week. 4 Tablet 12 3 Active Nitroglycerin 0.4 MG Sublingual Tablet Sublingual (Nitrostat) Place 1 Tablet under the tongue every 5 minutes as needed for Pain, Chest. up to 3 doses in 15 minutes 25 Tablet 11 3 Active DULoxetine HCl 30 MG Oral Capsule Delayed Release Particles (Cymbalta) Take 1 Capsule by mouth in the morning. Do not cut, crush or chew. 30 Capsule 5 3 Active Ondansetron HCl 4 MG Oral Tablet Take 1 Tablet by mouth every 8 hours as needed for Nausea. 20 Tablet 0 3 Active predniSONE 5 MG Oral Tablet [...] 14 days. 2.28 mL 11 3 Active Medical Compression StockingsIndicat ions:Edema, unspecified type,Chronic systolic heart failure (HCC) 20-30 mm Hg below the knee 1 Each 0 2 04/20/20 23 Discontinued(Med ication List Clean Up) Furosemide 20 MG Oral Tablet (Lasix)Indicatio ns:HFrEF (heart failure with reduced ejection fraction) (HCC) Take 2 Tablets by mouth in the morning. 180 Tablet 3 3 04/26/20 23 Discontinued(Ref ill) Lidocaine 5 % External Patch (Lidoderm) Place 1 Patch topically on the skin daily. 30 Patch 1 3 05/17/20 23 Discontinued diphenhydrAMINE HCl 25 MG Oral Capsule (Benadryl) 1 Capsule. 0 2 04/20/20 23 Discontinued(Med ication List Clean Up) Hydrocortisone Acetate 25 MG Rectal Suppository (Anusol HC) 1 Suppository. 0 2 04/20/20 23 Discontinued(Med ication List Clean Up) Empagliflozin 10 MG Oral Tablet (Jardiance) Take 1 Tablet by mouth in the morning. 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 Pt states he will get back to with his decision * Telephone Encounter - Aparna Espinal DO - 03/25/2023 2:06 PM EDT He probably should have it done in the lab-if he is agreeable. Dr. Espinal * Telephone Encounter - Annalisa Mcgowan LPN - 03/07/2023 2:11 PM EDT Pt did not have enough data to analyze on his home sleep test. Should he repeat the home test or chai in lab ? documented in this encounter Plan of Treatment Upcoming Encounters Date Type Department Care Team (Late st Contact Info) Description 06/22/2023 2:30 PM EST [facility], [facility] [address] [facility] [place] [address] Cindy Underwood, RN 132 [facility] [place] [address] 08/21/2023 12:30 PM EDT Therapy Neuropsychology [facility] [place] [address] Logan Morales, PhD 200 [facility] [place] [address] 09/06/2023 3:20 PM EDT Office Visit Neurology [facility] [place] [address] Aparna Ruano PA-C 200 [facility] [place] [address] 09/11/2023 9:40 AM EDT Office Visit Rheumatology [place] [address] [place] [address] [facility] [place] [address] 09/17/2023 1:40 PM EDT Office Visit [facility] [address] [place] [address] Anahy Grayson MD [address] [facility] [place] [address] Scheduled Procedures Name Priority Associated Diagnoses Date/Ti me COLONOSCOPY FLEXIBLE PROXIMAL DIAGNOSTIC Recall Colon cancer screening Health Maintenance Due Date Last Done Comments DISCUSS TOBACCO CESSATION (REFER TO SMARTSET #2373) 1965 COVID-19 Vaccine (#1) 02/09/1969 Alpha-1 Antitrypsin [...] D LEVEL ONCE IN A LIFETIME-USE SMARTSET# [id number] Completed 08/04/2021 GARDASIL-HPV IMMUNIZATION SERIES Aged Out No longer eligible based on patient's age to complete this topic MENINGOCOCCAL (MENACTRA/MENVEO) Aged Out No longer eligible based on patient's age to complete this topic documented as of this encounter Medical Devices Not on filedocumented as of this encounter Care Teams Public Policy Mediator Relationship Specialty Start Date End Date Anahy Grayson MD [address] [place] [address] PCP - General Internal Medicine 01/27/22 documented as of this encounter
--- OUTSIDE RECORDS SUMMARY | 2023-08-13 00:15 | External Medical Summary | Summary of Care ---
Author Name Unknown Organization [facility] Address [address] [facility] [address] Phone [phone] Care Team Providers Care Curator Natural History Museum Name Role Phone Anahy Grayson MD Primary Care Provider [phone] Reason for Visit * Reason Onset Date Comments [facility]: Maintenance 05/31/2023 Encounter Details Date Type Department Care Team (Latest Contact Info) Description 05/31/2023 2:00 PM EST Scheduled Telephone [facility], [facility] [address] [facility] [place] [address] Coordinator, [facility] [address] [facility] [place] [address] Canceled (Net Web Application Developer Error) Allergies No known active allergiesdocumented as of this encounter (statuses as of 06/06/2023) Medications Medication Sig Dispensed Refills Start Date End Date Status Aspirin 81 MG Oral Tablet Delayed Release Take 1 Tablet by mouth in the morning. 0 Active Spiriva Respimat 2.5 MCG/ACT Inhalation Aerosol Solution (Tiotropium [place] Monohydrate) Inhale by mouth 2 Puffs in [...] Oral Tablet (Crestor)Indication s:Coronary artery disease involving [place] coronary artery of [place] heart without angina pectoris,HFrEF (heart failure with [...] rheumatoid factor ([facility]) Take one to two tablets by mouth [...] rheumatoid factor ([facility]) Inject 1.14 mL under the skin every 14 days. 2.28 mL 11 03/05/2023 Active Omeprazole 40 MG Oral Capsule Delayed Release (PriLOSEC) Take 1 Capsule by mouth in the morning. 1 hour before the first meal of the day.. 90 Capsule 3 03/15/2023 Active Sildenafil Citrate 20 MG Oral Tablet (Revatio)Indication s:Raynaud's disease with gangrene ([facility]) TAKE ONE TABLET BY MOUTH EVERY MORNING [...] by mouth in the morning. 0 Active Furosemide 20 MG Oral Tablet (Lasix)Indications: HFrEF (heart failure with reduced ejection fraction) ([facility]) Take 2 Tablets by mouth in the morning. 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 Scoliosis 06/23/2022 SVT [...] Description 06/22/2023 2:30 PM EST Home Visit [facility] [address] [place] [address] Cindy Underwood, RN [address] [place] [address] 08/21/2023 12:30 PM EDT Therapy Neuropsychology [facility] [address] [place] [address] Logan Morales, PhD [address] [place] [address] 09/06/2023 3:20 PM EDT Office Visit Neurology [facility] 200 [facility], [place] [address] Aparna Ruano PA-C [address] [facility] [place] [address] 09/11/2023 9:40 AM EDT Office Visit Rheumatology [facility] [address] [facility] [place] [address] Jimmy Giang MD [address] [employer] [place] [address] 09/17/2023 1:40 PM EDT Office Visit [facility] [address] [place] [address] Anahy Grayson MD [address] [place] [address] Scheduled Procedures Name Priority Associated Diagnoses Date/Ti me COLONOSCOPY FLEXIBLE PROXIMAL DIAGNOSTIC Recall Colon cancer screening Health Maintenance Due Date Last Done Comments DISCUSS TOBACCO CESSATION (REFER TO SMARTSET #8800) 1965 COVID-19 Vaccine (#1) 02/09/1970 Alpha-1 Antitrypsin [...] D LEVEL ONCE IN A LIFETIME-USE SMARTSET# [id number] Completed 08/04/2021 GARDASIL-HPV IMMUNIZATION SERIES Aged Out No longer eligible based on patient's age to complete this topic MENINGOCOCCAL (MENACTRA/MENVEO) Aged Out No longer eligible based on patient's age to complete this topic documented as of this encounter Medical Devices Not on filedocumented as of this encounter Care Teams Curator Natural History Museum Relationship Specialty Start Date End Date Anahy Grayson MD [address] [place] [facility] [place] [address] PCP - General Internal Medicine 01/27/22 documented as of this encounter
--- OUTSIDE RECORDS SUMMARY | 2023-08-13 00:15 | External Medical Summary | Summary of Care ---
Author Name Unknown Organization [facility] Address [address] [place] [address] Phone [phone] Care Team Providers Care Dramatic Coach Name Role Phone Anahy Grayson MD Primary Care Provider [phone] Reason for Visit * Reason Onset Date Comments Advice 05/29/2023 Test Results 05/29/2023 Encounter Details Date Type Department Care Team (Late st Contact Info) Description 05/29/2023 Telephone Pulmonary Medicine, [place] [address] [place] [address] Caden Plaza MD [address] [place] [address] Advice; Test Results Allergies No known active allergiesdocumented as of this encounter (statuses as of 06/06/2023) Medications Medication Sig Dispensed Refills Start Date End Date Status Aspirin 81 MG Oral Tablet Delayed Release Take 1 Tablet by mouth in the morning. 0 Active Spiriva Respimat 2.5 MCG/ACT Inhalation Aerosol Solution (Tiotropium [place] Monohydrate) Inhale by mouth 2 Puffs in [...] Oral Tablet (Crestor)Indicatio ns:Coronary artery disease involving [place] coronary artery of [place] heart without angina pectoris,HFrEF (heart failure with [...] Oral Tablet (Revatio)Indicatio ns:Raynaud's disease with gangrene ([facility]) TAKE ONE TABLET BY MOUTH EVERY MORNING [...] 0 Active Furosemide 20 MG Oral Tablet (Lasix)Indications :HFrEF (heart failure with reduced ejection fraction) ([facility]) Take 2 Tablets by mouth in the morning. 180 Tablet 3 04/30/2023 Active Jardiance 10 MG Oral Tablet (Empagliflozin)Ind ications:HFrEF (heart failure with reduced ejection fraction) ([facility]) TAKE 1 TABLET BY MOUTH EVERY MORNING 90 Tablet 3 05/08/2023 Active oxyCODONE-Acetamin ophen 5-325 MG Oral Tablet (Percocet)Indicati ons:Rheumatoid arthritis involving multiple sites with positive rheumatoid factor ([facility]),DDD (degenerative disc disease), lumbar,Thoracic compression fracture, closed, initial encounter ([facility]),Old tear of lateral meniscus of knee, unspecified laterality, unspecified tear type Take 1 Tablet by mouth every 6 hours as needed for Pain, Severe or Pain, Moderate. 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 Also, I do not see a recent CT scan of the chest. * Telephone Encounter - Clemencia Ledezma OSA - 06/05/2023 3:46 PM EST Hayley called again. She really needs Dr Plaza to look at Harrison's latest CT Scans. Hayley is veryconcern about the nodule in his lung. Hayley can be reached at [phone] * Telephone Encounter - Melissa De Los Santos OSA - 05/29/2023 2:01 PM EST Hayley called in and stated that Harrison had recent Ct's of head and neck and in one of them they didnotice the lesion on his lung. She stated that it showed eccentric cavitation. She is concerned with this and would like Dr Plaza to look at the scans and advise. You can reach Hayley at [phone]. documented in this encounter Plan of Treatment Upcoming Encounters Date Type Department Care Team (Late st Contact Info) Description 06/22/2023 2:30 PM EST [place] Visit [place], [facility] [address] [facility] [place] [address] Cindy Underwood, RN 132 [facility] [place] [address] 08/21/2023 12:30 PM EDT Therapy Neuropsychology [place] [place] [address] [facility] [place] [address] Logan Morales, PhD [address] [facility] [place] [address] 09/06/2023 3:20 PM EDT Office Visit Neurology [facility] [address] [place] [address] Aparna Ruano PA-C [address] [place] [place] [address] 09/11/2023 9:40 AM EDT Office Visit Rheumatology [facility] [address] [facility] [place] [address] Jimmy Giang MD [address] [place] [address] 09/17/2023 1:40 PM EDT Office Visit [facility] [address] [place] [address] Anahy Grayson MD [address] [place] [address] Scheduled Procedures Name Priority Associated [...] D LEVEL ONCE IN A LIFETIME-USE SMARTSET# 81445 Completed 08/04/2021 GARDASIL-HPV IMMUNIZATION SERIES Aged Out No longer eligible based on patient's age to complete this topic MENINGOCOCCAL (MENACTRA/MENVEO) Aged Out No longer eligible based on patient's age to complete this topic documented as of this encounter Medical Devices Not on filedocumented as of this encounter Care Teams Dramatic Coach Relationship Specialty Start Date End Date Anahy Grayson [facility] [address] [facility] [address] PCP - General Internal Medicine 01/27/22 documented as of this encounter
--- OUTSIDE RECORDS SUMMARY | 2023-08-13 00:15 | External Medical Summary | Summary of Care ---
Author Name Unknown Organization [facility] Address [address] [place] [address] Phone [phone] Care Team Providers Care Talend Etl Developer Name Role Phone Anahy Grayson MD Primary Care Provider [phone] Reason for Referral * Precert (Within 10 days (routine)) - Pending Review Specialty Diagnoses / Procedures Referred By Jose tidwell Referred To Contact Radiology Diagnoses Pulmonary nodules Procedures CT CHEST WO CONTRAST Caden Plaza MD [address] [place] [address] Referral ID Status Reason Start Date Expiration Date V isits Requested Visits Authorized [id number] Pending Review 06/06/[phone] Encounter Details Date Type Department Care Team (Late st Contact Info) Description 06/06/2023 Orders Only Pulmonary Medicine, [place] [address] [place] [address] Caden Plaza MD [address], [place] [id number] Pulmonary nodules*; HFrEF (heart failure with reduced ejection fraction) ([facility]) Allergies No known active allergiesdocumented as of this encounter (statuses as of 06/06/2023) Medications Medication Sig Dispensed Refills Start Date End Date Status Aspirin 81 MG Oral Tablet Delayed Release Take 1 Tablet by mouth in the morning. 0 Active Spiriva Respimat 2.5 MCG/ACT Inhalation Aerosol Solution (Tiotropium [place] Monohydrate) Inhale by mouth 2 Puffs in [...] Oral Tablet (Crestor)Indicatio ns:Coronary artery disease involving [place] coronary artery of [place] heart without angina pectoris,HFrEF (heart failure with [...] 04/20/2023 Sarilumab 200 MG/1.14ML Subcutaneous Solution Auto-injector (Enlikenzara)Indicatio ns:Rheumatoid arthritis involving multiple sites with positive [...] disease), lumbar,Thoracic compression fracture, closed, initial encounter ([facility]),Old tear of lateral meniscus of knee, unspecified laterality, unspecified tear type Take 1 Tablet by mouth every 6 hours as needed for Pain, Severe or Pain, Moderate. 120 Tablet 0 06/04/2023 Active Furosemide 20 MG Oral Tablet (Lasix)Indications :HFrEF (heart failure with reduced ejection fraction) ([facility]) Take 2 Tablets by mouth in the morning. 180 Tablet 3 06/06/2023 Active Furosemide 20 MG Oral Tablet (Lasix)Indications :HFrEF (heart failure with reduced ejection fraction) ([facility]) Take 2 Tablets by mouth in the morning. 180 Tablet 3 04/30/2023 Discontinue d(Refill) documented as of this encounter [...] PM EST [facility] [address] [facility] [place] [address] Cindy Underwood, RN 132 [facility] [place] [address] 08/21/2023 12:30 PM EDT Therapy Neuropsychology [facility] [address] [facility] [place] [address] Logan Morales, PhD [address] [facility] [place] [address] 09/06/2023 3:20 PM EDT Office Visit Neurology [facility] [place] [address] Aparna Ruano PA-C 200 [facility] [place] [address] 09/11/2023 9:40 AM EDT Office Visit Rheumatology [place] [address] [facility] [place] [address] Jimmy Giang MD [address] [place], [place] [address] 09/17/2023 1:40 PM EDT Office Visit [facility] [address] [place] [facility] [place] [id number] Anahy Grayson MD [address] [place] [address] Scheduled Orders Name Type Priority Associated Diagnoses Orde r Schedule CT CHEST WO CONTRAST Medical Imaging Routine Pulmonary nodules Ordered: 06/06/2023 Scheduled Procedures Name Priority Associated Diagnoses Date/Ti me COLONOSCOPY FLEXIBLE PROXIMAL DIAGNOSTIC Recall Colon cancer screening Health Maintenance Due Date Last Done Comments DISCUSS TOBACCO CESSATION (REFER TO SMARTSET #7673) 1965 COVID-19 Vaccine (#1) 02/09/1969 Alpha-1 Antitrypsin [...] D LEVEL ONCE IN A LIFETIME-USE SMARTSET# [id number] Completed 08/04/2021 GARDASIL-HPV IMMUNIZATION SERIES Aged Out No longer eligible based on patient's age to complete this topic MENINGOCOCCAL (MENACTRA/MENVEO) Aged Out No longer eligible based on patient's age to complete this topic documented as of this encounter Medical Devices Not on filedocumented as of this encounter Visit Diagnoses Diagnosis Pulmonary nodules- Primary Other nonspecific abnormal finding of lung field HFrEF (heart failure with reduced ejection fraction) (HCC) documented in this encounter Care Teams Talend Etl Developer Relationship Specialty Start Date End Date Anahy Grayson MD [address] [place] [address] PCP - General Internal Medicine 01/27/22 documented as of this encounter
--- OUTSIDE RECORDS SUMMARY | 2023-08-13 00:16 | External Medical Summary | Summary of Care ---
Author Name Unknown Organization [facility] Address [address] [place] [address] Phone [phone] Care Team Providers Care Information Security Associate Name Role Phone Anahy Grayson MD Primary Care Provider [phone] Encounter Details Date Type Department Care Team ([facility] st Contact Info) Description 06/05/2023 Specialty Pharmacy [facility], [address] [address] Medication, [place] [facility] Refill, [address] [address] Allergies No known active allergiesdocumented as of this encounter (statuses as of 06/05/2023) Medications Medication Sig Dispensed Refills Start Date End Date Status Aspirin 81 MG Oral Tablet Delayed Release Take 1 Tablet by mouth in the morning. 0 Active Spiriva Respimat 2.5 MCG/ACT Inhalation Aerosol Solution (Tiotropium [place] Monohydrate) Inhale by mouth 2 Puffs in [...] Oral Tablet (Crestor)Indication s:Coronary artery disease involving [place] coronary artery of [place] heart without angina pectoris,HFrEF (heart failure with reduced ejection fraction) ([facility]),HTN, goal below 140/90,Dyslipidemia , goal LDL below [...] multiple sites with positive rheumatoid factor ([facility]) Inject 1.14 mL under the skin every 14 days. 2.28 mL 11 03/05/2023 Active Omeprazole 40 MG Oral Capsule Delayed Release (PriLOSEC) Take 1 Capsule by mouth in the morning. 1 hour before the first meal of the day.. 90 Capsule 3 03/15/2023 Active Sildenafil Citrate 20 MG Oral Tablet (Revatio)Indication s:Raynaud's disease with gangrene ([facility]) TAKE ONE TABLET BY MOUTH EVERY MORNING [...] (heart failure with reduced ejection fraction) ([facility]) Take 2 Tablets by mouth in the morning. 180 Tablet 3 04/30/2023 Active Jardiance 10 MG Oral Tablet (Empagliflozin)Nalini cations:HFrEF (heart failure with reduced ejection fraction) ([facility]) TAKE 1 TABLET BY MOUTH EVERY MORNING 90 Tablet 3 05/08/2023 Active oxyCODONE-Acetamino phen 5-325 MG Oral Tablet (Percocet)Indicatio ns:Rheumatoid arthritis involving multiple sites with positive rheumatoid factor ([facility]),DDD (degenerative disc disease), lumbar,Thoracic compression fracture, closed, initial encounter ([facility]),Old tear of lateral meniscus of knee, unspecified laterality, unspecified tear type Take 1 Tablet by mouth every 6 hours as needed for Pain, Severe or Pain, Moderate. 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 Prescription Address: [address] [facility] [place] [address] Sylvia Madrigal CPhT [facility] 06/05/2023,12:47 PM documented in this encounter Plan of Treatment Upcoming Encounters Date Type Department Care Team (Late st Contact Info) Description 06/22/2023 2:30 PM EST [place] [facility] [place] [facility] [place], [facility] [address] [facility] [place] [address] Cindy Underwood, RN 132 [facility] [place] [address] 08/21/2023 12:30 PM EDT Therapy Neuropsychology [facility] 200 [facility] [place] [address] Logan Morales, PhD 200 [facility] [place] [address] 09/06/2023 3:20 PM EDT Office Visit Neurology [facility] [address] [facility] [place] [address] Aparna Ruano PA-C 200 [facility] [place] [address] 09/11/2023 9:40 AM EDT Office Visit Rheumatology [address] [place] [address] Jimmy Giang MD [facility] [place] [address] 09/17/2023 1:40 PM EDT Office Visit [facility] [address] [place] [phone] Anahy Grayson MD [address] [place] [address] Scheduled Procedures Name Priority Associated [...] D LEVEL ONCE IN A LIFETIME-USE SMARTSET# [id number] Completed 08/04/2021 GARDASIL-HPV IMMUNIZATION SERIES Aged Out No longer eligible based on patient's age to complete this topic MENINGOCOCCAL (MENACTRA/MENVEO) Aged Out No longer eligible based on patient's age to complete this topic documented as of this encounter Medical Devices Not on filedocumented as of this encounter Care Teams Information Security Associate Relationship Specialty Start Date End Date Anahy Grayson MD [address] [place] [address] PCP - General Internal Medicine 01/27/22 documented as of this encounter
--- OUTSIDE RECORDS SUMMARY | 2023-08-13 00:16 | External Medical Summary | Summary of Care ---
Author Name Unknown Organization [facility] Address [address] [place] [address] Phone [phone] Care Team Providers Care Spectrograph Operator Name Role Phone Anahy Grayson MD Primary Care Provider [phone] Reason for Visit * Reason Comments eRx-Medication Refill Encounter Details Date Type Department Care Team (Late st Contact Info) Description 06/02/2023 Refill [facility] [address] [place] [address] Anahy Grayson MD [address] [place] [address] Rheumatoid arthritis involving multiple sites with positive rheumatoid factor (HCC); DDD (degenerative disc disease), lumbar; Thoracic compression fracture, closed, initial encounter ([facility]); Old tear of lateral meniscus of knee, unspecified laterality, unspecified tear type Allergies No known active allergiesdocumented as of this encounter (statuses as of 06/04/2023) Medications Medication Sig Dispensed Refills Start Date End Date Status Aspirin 81 MG Oral Tablet Delayed Release Take 1 Tablet by mouth in the morning. 0 Active Spiriva Respimat 2.5 MCG/ACT Inhalation Aerosol Solution (Tiotropium [place] Monohydrate) Inhale by mouth 2 Puffs in [...] Oral Tablet (Crestor)Indication s:Coronary artery disease involving [place] coronary artery of [place] heart without angina pectoris,HFrEF (heart failure with [...] involving multiple sites with positive rheumatoid factor ([facility]) Take one to two tablets by mouth daily for rheumatoid arthritis. 60 Tablet 2 03/05/2023 Active Additional Information Patient taking differently: 10 mg Oral DAILY PRN, flare up for RA, Take one to two tablets by mouth daily for rheumatoid arthritis as needed, Reported on 04/20/2023 Sarilumab 200 MG/1.14ML Subcutaneous Solution Auto-injector ([employer])Indication s:Rheumatoid arthritis involving multiple sites with positive rheumatoid factor ([facility]) Inject 1.14 mL under the skin every 14 days. 2.28 mL 11 03/05/2023 Active Omeprazole 40 MG Oral Capsule Delayed Release (PriLOSEC) Take 1 Capsule by mouth in the morning. 1 hour before the first meal of the day.. 90 Capsule 3 03/15/2023 Active Sildenafil Citrate 20 MG Oral Tablet (Revatio)Indication s:Raynaud's disease with gangrene ([facility]) TAKE ONE TABLET BY MOUTH EVERY MORNING [...] HFrEF (heart failure with reduced ejection fraction) ([facility]) Take 2 Tablets by mouth in the morning. 180 Tablet 3 04/30/2023 Active Jardiance 10 MG Oral Tablet (Empagliflozin)Nalini cations:HFrEF (heart failure with reduced ejection fraction) ([facility]) TAKE 1 TABLET BY MOUTH EVERY MORNING 90 Tablet 3 05/08/2023 Active oxyCODONE-Acetamino phen 5-325 MG Oral Tablet (Percocet)Indicatio ns:Rheumatoid arthritis involving multiple sites with positive rheumatoid factor ([facility]),DDD (degenerative disc disease), lumbar,Thoracic compression fracture, closed, initial encounter ([facility]),Old tear of lateral meniscus of knee, unspecified laterality, unspecified tear type Take 1 Tablet by mouth every 6 hours as needed for Pain, Severe or Pain, Moderate. 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 [address] [place] [address] Logan Morales, PhD 200 [facility] [place] [address] 09/06/2023 3:20 PM EDT Office Visit Neurology [facility] 200 [facility] [place] [address] Aparna Ruano PA-C 200 [facility] [place] [address] 09/11/2023 9:40 AM EDT Office Visit Rheumatology [place] [address] [employer] [place] [address] Jimmy Giang MD [address] [place] [address] 09/17/2023 1:40 PM EDT Office Visit [facility] [address] [place] [address] Anahy Grayson MD [address], [place] [id number] Scheduled Procedures Name Priority Associated Diagnoses Date/Ti me COLONOSCOPY FLEXIBLE PROXIMAL DIAGNOSTIC Recall Colon cancer screening Health Maintenance Due Date Last Done Comments DISCUSS TOBACCO CESSATION (REFER TO SMARTSET #6111) 1965 COVID-19 Vaccine (#1) 02/09/1969 Alpha-1 Antitrypsin [...] D LEVEL ONCE IN A LIFETIME-USE SMARTSET# [id number] Completed 08/04/2021 GARDASIL-HPV IMMUNIZATION SERIES Aged Out [...] type documented in this encounter Care Teams Spectrograph Operator Relationship Specialty Start Date End Date Anahy Grayson MD [address] [place] [address] PCP - General Internal Medicine 01/27/22 documented as of this encounter
--- OUTSIDE RECORDS SUMMARY | 2023-08-13 00:16 | External Medical Summary | Summary of Care ---
Author Name Unknown Organization [facility] Address [address] [place] [address] Phone [phone] Care Team Providers Care Plant Pathology Teacher Name Role Phone Anahy Grayson MD Primary Care Provider [phone] Reason for Visit * Reason Onset Date Comments Medication Refill 06/01/2023 Encounter Details Date Type Department Care Team (Late st Contact Info) Description 06/01/2023 Refill [facility] [address] [place] [address] Anahy Grayson MD [address] [place] [address] Rheumatoid arthritis involving multiple sites with positive rheumatoid factor (HCC); DDD (degenerative disc disease), lumbar; Thoracic compression fracture, closed, initial encounter ([facility]); Old tear of lateral meniscus of knee, unspecified laterality, unspecified tear type Allergies No known active allergiesdocumented as of this encounter (statuses as of 06/04/2023) Medications Medication Sig Dispensed Refills Start Date End Date Status Aspirin 81 MG Oral Tablet Delayed Release Take 1 Tablet by mouth in the morning. 0 Active Spiriva Respimat 2.5 MCG/ACT Inhalation Aerosol Solution (Tiotropium [place] Monohydrate) Inhale by mouth 2 Puffs in [...] 04/20/2023 Sarilumab 200 MG/1.14ML Subcutaneous Solution Auto-injector (Eat Clubzara)Indicatio ns:Rheumatoid arthritis involving multiple sites with positive [...] Oral Tablet (Revatio)Indicatio ns:Raynaud's disease with gangrene ([facility]) TAKE ONE TABLET BY MOUTH [...] ications:HFrEF (heart failure with reduced ejection fraction) ([facility]) TAKE 1 TABLET BY MOUTH EVERY MORNING 90 Tablet 3 05/08/2023 Active oxyCODONE-Acetamin ophen 5-325 MG Oral Tablet (Percocet)Indicati ons:Rheumatoid arthritis involving multiple sites with positive rheumatoid factor ([facility]),DDD (degenerative disc disease), lumbar,Thoracic compression fracture, closed, initial encounter ([facility]),Old tear of lateral meniscus of knee, unspecified laterality, unspecified tear type Take 1 Tablet by mouth every 6 hours as needed for Pain, Severe or Pain, Moderate. 120 Tablet 0 06/04/2023 Active oxyCODONE-Acetamin ophen 5-325 MG Oral Tablet (Percocet)Indicati ons:Rheumatoid arthritis involving multiple sites with positive rheumatoid factor ([facility]),DDD (degenerative disc disease), lumbar,Thoracic compression fracture, closed, initial encounter ([facility]),Old tear of lateral meniscus of knee, unspecified laterality, unspecified tear type Take 1 Tablet by mouth every 6 hours as needed for Pain, Severe or Pain, Moderate. 60 Tablet 0 05/17/2023 Discontinue d(Refill) documented as of this encounter [...] dose Rx Exacerbation plan o Chest Xray halfway systemic steroid user 06/23/2022 Scoliosis 06/23/2022 SVT [...] Telephone Encounter - Anahy Grayson MD - 06/04/2023 7:59 AM ESTSigned Prescriptions: Disp Refills oxyCODONE-Acetaminophen 5-325 MG Oral Tabl*120 Ta*0 Sig: Take 1 Tablet by mouth every 6 hours as needed for Pain, Severe or Pain, Moderate. Authorizing Provider: ANAHY GRAYSON * Telephone Encounter - Kaity Lamb [facility] - 06/04/2023 5:57 AM EST Pending Prescriptions: Disp Refills oxyCODONE-Acetaminophen 5-325 MG Oral Tabl*60 Tab*0 Sig: Take 1 Tablet by mouth every 6 hours as needed for Pain, Severe or Pain, Moderate. * Telephone Encounter - Kaity Lamb [facility] - 06/04/2023 5:57 AM EST I have reviewed the patients controlled substance dispensing history in the Prescription Drug Monitoring Program in compliance with the [facility] regulations before prescribing a controlled substance. PDMP checked on 06/04/2023. Pending Prescriptions: Disp Refills oxyCODONE-Acetaminophen 5-325 MG Oral Tab*60 Tab*0 Sig: Take 1 Tablet by mouth every 6 hours as needed for Pain, Severe or Pain, Moderate. Last Visit: 05/17/2023 (in office), 06/15/2020 (telemedicine) Next Visit: 09/17/2023 Date medication was last filled: 05/17 Date medication is due for refill: 06/01 [id number] [address] Is this request for [...] in Results Review. Please approve if appropriate. Thank you, Kaity Lamb, Mary. Clinical Pharmacist Centralized Clinical Pharmacy Services (CCPS) (formerly Telepharmacy) 06/04/2023, 5:57 AM * Telephone Encounter - Ifeoma Torrez PHARM Tech - 06/01/2023 12:33 PM EST Did you pend patient's preferred pharmacy and medication before forwarding?yes [id number] [address] Pending Prescriptions: Disp Refills oxyCODONE-Acetaminophen 5-325 MG Oral Tab*60 Tab*0 Sig: Take 1 Tablet by mouth every 6 hours as needed for Pain, Severe or Pain, Moderate. Last Visit: 05/17/2023 (in office), 06/15/2020 (telemedicine) Next Visit: 09/17/2023 If no future appointments scheduled, and last appointment is greater than a year ago, please schedule patient for a follow-up appointment Last date the medication was ordered: 05/17/2023 Is this request for a controlled substance?Yes, What was the last refill date 05/17/2023 w/ quantity 60 and dosage 5 and Urine Drug Screen was completed Urine [...] 2:30 PM EST Home Visit [facility] [place], [facility] [address] [facility] [place] [address] Cindy Underwood, RN [address] [facility] [place] [address] 08/21/2023 12:30 PM EDT Therapy Neuropsychology [facility] [place] [address] [place] [address] Logan Morales, PhD [address] [facility] [place] [address] 09/06/2023 3:20 PM EDT Office Visit Neurology [facility] [place] [address] [place] [address] Aparna Ruano PA-C [address] [facility] [place] [address] 09/11/2023 9:40 AM EDT Office Visit Rheumatology [place] [id number] [place] [address] Jimmy Giang MD [facility] [employer] [facility] [place] [address] 09/17/2023 1:40 PM EDT Office Visit [place] [address] [place] [place] [address] Anahy Grayson MD [address] [place] [facility] [place] [address] Scheduled Procedures Name Priority Associated Diagnoses Date/Ti me COLONOSCOPY FLEXIBLE PROXIMAL DIAGNOSTIC Recall Colon cancer screening Health Maintenance Due Date Last Done Comments DISCUSS TOBACCO CESSATION (REFER TO SMARTSET #9240) 1965 COVID-19 Vaccine (#1) 02/09/1969 Alpha-1 Antitrypsin [...] D LEVEL ONCE IN A LIFETIME-USE SMARTSET# 63600 Completed 08/04/2021 GARDASIL-HPV IMMUNIZATION SERIES Aged Out [...] disc Thoracic compression fracture, closed, initial encounter ([facility]) Old tear of lateral meniscus of knee, unspecified laterality, unspecified tear type documented in this encounter Care Teams Plant Pathology Teacher Relationship Specialty Start Date End Date Anahy Grayson MD [address] [place] [address] PCP - General Internal Medicine 01/27/22 documented as of this encounter
--- OUTSIDE RECORDS SUMMARY | 2023-08-13 00:16 | External Medical Summary | Summary of Care ---
Author Name Unknown Organization [facility] Address [address] [facility] [address] Phone [phone] Care Team Providers Care Boat Motor Mechanic Name Role Phone Anahy Grayson MD Primary Care Provider [phone] Reason for Visit * Reason Onset Date Comments [facility]: Maintenance 05/22/2023 Encounter Details Date Type Department Care Team (Late st Contact Info) Description 05/22/2023 Telephone [facility], [facility] [address] [place] [address] Cindy Underwood RN [address] [place] [address] [facility]: Maintenance Allergies No known active allergiesdocumented as of this encounter (statuses as of 05/27/2023) Medications Medication Sig Dispensed Refills Start Date End Date Status Aspirin 81 MG Oral Tablet Delayed Release Take 1 Tablet by mouth in the morning. 0 Active Spiriva Respimat 2.5 MCG/ACT Inhalation Aerosol Solution (Tiotropium [place] Monohydrate) Inhale by mouth 2 Puffs in [...] Oral Tablet (Crestor)Indication s:Coronary artery disease involving [place] coronary artery of [place] heart without angina pectoris,HFrEF (heart failure with reduced ejection fraction) ([facility]),HTN, goal below 140/90,Dyslipidemia , goal [...] sites with positive rheumatoid factor ([facility]) Take one to two tablets by mouth daily for rheumatoid arthritis. 60 Tablet 2 03/05/2023 Active Additional Information Patient taking differently: 10 mg Oral DAILY PRN, flare up for RA, Take one to two tablets by mouth daily for rheumatoid arthritis as needed, Reported on 04/20/2023 Sarilumab 200 MG/1.14ML Subcutaneous Solution Auto-injector (July Systemszara)Indication s:Rheumatoid arthritis involving multiple sites with positive rheumatoid factor ([facility]) Inject 1.14 mL under the skin every 14 days. 2.28 mL 11 03/05/2023 Active Omeprazole 40 MG Oral Capsule Delayed Release (PriLOSEC) Take 1 Capsule by mouth in the morning. 1 hour before the first meal of the day.. 90 Capsule 3 03/15/2023 Active Sildenafil Citrate 20 MG Oral Tablet (Revatio)Indication s:Raynaud's disease with gangrene ([facility]) TAKE ONE TABLET BY MOUTH [...] failure with reduced ejection fraction) ([facility]) Take 2 Tablets by mouth in the morning. 180 Tablet 3 04/30/2023 Active Jardiance 10 MG Oral Tablet (Empagliflozin)Nalini cations:HFrEF (heart failure with reduced ejection fraction) ([facility]) TAKE 1 TABLET BY MOUTH EVERY MORNING 90 Tablet 3 05/08/2023 Active oxyCODONE-Acetamino phen 5-325 MG Oral Tablet (Percocet)Indicatio ns:Rheumatoid arthritis involving multiple sites with positive rheumatoid factor ([facility]),DDD (degenerative disc disease), lumbar,Thoracic compression fracture, closed, initial encounter ([facility]),Old tear of lateral meniscus of knee, unspecified laterality, unspecified tear type Take 1 Tablet by mouth every 6 hours as needed for Pain, Severe or Pain, Moderate. 60 Tablet 0 05/17/2023 Active documented as of this encounter (statuses as of 05/27/2023) Active Problems Problem Noted Date Diagnosed Date [...] as of this encounter (statuses as of 05/27/2023) Resolved Problems Problem Noted Date Diagnosed Date [...] as of this encounter (statuses as of 05/27/2023) Immunizations Name Administration Dates Next Due HepA [...] Encounter - Cindy Underwood RN - 05/22/2023 2:43 PM EST Pt is overdue for his follow up with Rheumatology - last visit was in December and was to f/u in 3 months. Can you please assist in getting him in to see Dr. Kady SORIANO - his meds are not effective from when it was increased last for his RA. Thank you. documented in this encounter Plan of Treatment Upcoming Encounters Date Type Department Care Team (Late st Contact Info) Description 06/22/2023 2:30 PM EST Home Visit [facility], [facility] [place] [address] Cindy Underwood RN [address] [place] [address] 08/21/2023 12:30 PM EDT Therapy Neuropsychology [facility] [address] [place] [address] Logan Morales, PhD [address] [place] [address] 09/06/2023 3:20 PM EDT Office Visit Neurology [facility] [address] [facility] [place] [address] Aparna Ruano PA-C [address] [place] [place] [address] 09/11/2023 9:40 AM EDT Office Visit Rheumatology [address] [place] [address] Jimmy Giang MD [address] [place] [address] [place] [address] 09/17/2023 1:40 PM EDT Office Visit [facility] [address] [place] [address] Anahy Grayson MD [address] [place], [place] [id number] Scheduled Procedures Name Priority Associated Diagnoses Date/Ti me COLONOSCOPY FLEXIBLE PROXIMAL DIAGNOSTIC Recall Colon cancer screening Health Maintenance Due Date Last Done Comments DISCUSS TOBACCO CESSATION (REFER TO SMARTSET #9231) 1965 COVID-19 Vaccine (#1) 02/09/1969 Alpha-1 Antitrypsin [...] D LEVEL ONCE IN A LIFETIME-USE SMARTSET# 51686 Completed 08/04/2021 GARDASIL-HPV IMMUNIZATION SERIES Aged Out No longer eligible based on patient's age to complete this topic MENINGOCOCCAL (MENACTRA/MENVEO) Aged Out No longer eligible based on patient's age to complete this topic documented as of this encounter Medical Devices Not on filedocumented as of this encounter Care Teams Boat Motor Mechanic Relationship Specialty Start Date End Date Anahy Grayson MD [address] [place] [address] PCP - General Internal Medicine 01/27/22 documented as of this encounter
--- OUTSIDE RECORDS SUMMARY | 2023-08-13 00:16 | External Medical Summary | Summary of Care ---
Author Name Unknown Organization [facility] Address [address] [place] [address] Phone [phone] Care Team Providers Care Pet Adoption Counselor Name Role Phone Anahy Grayson MD Primary Care Provider Reason for Visit * Reason Onset Date Comments Advice 05/29/2023 Test Results 05/29/2023 Encounter Details Date Type Department Care Team (Late st Contact Info) Description 05/29/2023 Telephone [facility] [address] [place] [address] Anahy Grayson MD [address] [place] [address] Advice; Test Results Allergies No known active allergiesdocumented as of this encounter (statuses as of 06/01/2023) Medications Medication Sig Dispensed Refills Start Date End Date Status Aspirin 81 MG Oral Tablet Delayed Release Take 1 Tablet by mouth in the morning. 0 Active Spiriva Respimat 2.5 MCG/ACT Inhalation Aerosol Solution (Tiotropium [place] Monohydrate) Inhale by mouth 2 Puffs in [...] Oral Tablet (Crestor)Indication s:Coronary artery disease involving [place] coronary artery of [place] heart without angina pectoris,HFrEF (heart failure with reduced ejection fraction) ([facility]),HTN, goal below 140/90,Dyslipidemia , goal [...] involving multiple sites with positive rheumatoid factor ([facility]) Take one to two tablets [...] involving multiple sites with positive rheumatoid factor ([facility]) Inject 1.14 mL under the skin every 14 days. 2.28 mL 11 03/05/2023 Active Omeprazole 40 MG Oral Capsule Delayed Release (PriLOSEC) Take 1 Capsule by mouth in the morning. 1 hour before the first meal of the day.. 90 Capsule 3 03/15/2023 Active Sildenafil Citrate 20 MG Oral Tablet (Revatio)Indication s:Raynaud's disease with gangrene ([facility]) TAKE [...] HFrEF (heart failure with reduced ejection fraction) ([facility]) Take 2 Tablets by mouth in the morning. 180 Tablet 3 04/30/2023 Active Jardiance 10 MG Oral Tablet (Empagliflozin)Nalini cations:HFrEF (heart failure with reduced ejection fraction) ([facility]) TAKE 1 TABLET BY MOUTH EVERY MORNING 90 Tablet 3 05/08/2023 Active oxyCODONE-Acetamino phen 5-325 MG Oral Tablet (Percocet)Indicatio ns:Rheumatoid arthritis involving multiple sites with positive rheumatoid factor ([facility]),DDD (degenerative disc disease), lumbar,Thoracic compression fracture, closed, initial encounter ([facility]),Old tear of lateral meniscus of knee, unspecified laterality, unspecified tear type Take 1 Tablet by mouth every 6 hours as needed for Pain, Severe or Pain, Moderate. 60 Tablet 0 05/17/2023 Active documented as of this encounter (statuses as of 06/01/2023) Active Problems Problem Noted Date Diagnosed Date [...] dose Rx Exacerbation plan o Chest Xray [facility] systemic steroid user 06/23/2022 Scoliosis 06/23/2022 SVT [...] as of this encounter (statuses as of 06/01/2023) Resolved Problems Problem Noted Date Diagnosed Date [...] as of this encounter (statuses as of 06/01/2023) Immunizations Name Administration Dates Next Due HepA [...] encounter Miscellaneous Notes * Telephone Encounter - Renita Balbuena LPN - 06/01/2023 4:25 PM EST I identified pt by name and , verified by attendant. Pt has been informed of below message and verbalized understanding. * Telephone Encounter - Marguerite Evans PA-C - 05/30/2023 3:29 PM EST Pcp out of office today Suggest she call can help and have them out to do mobile assessment If they will not come (due to possible safety concerns) woud be advisable that she go to friend or family house with children and call police. Marguerite Evans PA-C 05/30/2023 3:30 PM * Telephone Encounter - Sylvia Alfred LPN - 05/30/2023 2:39 PM EST Patient's calling in regarding patient's behavior changes and mood swings. . She believes that he had another stroke that happened she thinks happened on on . Memory worse that it has every been Difficult to wake up, not knowing what he is doing, swearing, slurring speech, S's not pronouncing right. He has had some of these problems in the past but more severe that last couple days. [employer] [employer] involved. She called them yesterday due to things that were going on, he told them he was going to follow up with his family doctor today. When she reminded him today of what he said yesterday he got mad at her because he did not remember saying that. She stated that they have a 3 year old son together and he is seeing all of the spit second mood changes and verbally abusive. She is concerned about him driving, she stated that he is reckless and she does not get in a car with him nor does she let their son ride with him. Neurologist suggest that he goes to a [facility] to have a behavorial assessment but he thinks that they just want to 302 him. She stated that she wants to call 911 to get him assessed but she is fearful that if she does call them that he will refuse. She stated that he can come off as being normal to others as they do not deal with him every day. stated that patient is not currently home as he told her that he had a doctors appointment, she does not know where he is at the moment. Also a RN nurse Triage encounter from yesterday, advised ER marlene She is just wanting advice on what she needs to do to get her help if he is refusing. Hayley's cell phone: [phone] Attempted to call [facility] x2, No Answer. Sending to PCP, [facility] and [facility]. * Telephone Encounter - Josiane Frausto OSA - 05/30/2023 2:37 PM EST Reason for patient's call: Talk to a nurse Caller was transferred to Sylvia at the nurse line. * Telephone Encounter - Sandra Chavez MED ASSIST - 05/29/2023 1:31 PM EST Can you clarify? Are they requesting a home health referral? If so, that needs to come from PCP per[facility]. Requesting sooner appt? * Telephone Encounter - Nahomi Dyer OSA - 05/29/2023 12:15 PM EST Hayley has many concerns that she believes he has may have dementia/memory loss that has been worsening recently, and other concerns of potential more strokes since the testing has been completed. He has been having more aggressive behaviors, verbally and physical. He has difficulty remembering these "outbursts" when he comes out of them. He has been very nauseous after eating, he falls asleep very abruptly, the behaviors are sometimes worsen when being "woken up" (she believes that he may notactually be awake when he responds because of how he responds and not remembering things he said/did.) His mental health and depression is worsening and it is affecting the family as well. Hayley isasking if an assessment would need to be done for home health or nursing assistance, as he can't remember if he takes his medication or sometimes he'll take too much. Patient denies that anything is wrong or that he may have dementia, Harrison's father had dementia and his behaviors are similar. Hayley also wants to mention concerns about his driving. Harrison gets very angry if she mentions his issues with driving, and will be angry if he knows she mentioned it. He sometimes doesn't respond toother cars or break lights. He will drive very fast. Hayley will no longer get into the car with him, or let their child in the car. If these issues are mentioned to him it starts with the angry outbursts as well. Hayley has a hard time discussing these issues when he is around as he believes everyone is "attacking" him. He will be out of the house for a little while today. * Telephone Encounter - Nahomi Dyer OSA - 05/29/2023 12:11 PM EST Who is Requesting Test Results: Aparna Ruano Primary Care Provider : Anahy Grayson MD Tests Results Requested : MRI and CT Date of Test : CTA head, CTA neck, and MRI Brain Location of Test: [facility] Ordering Provider: Zahida Monroy Callback Number: [phone] Patient has been made aware that the turnaround time for test results are typically as follows: Laboratory results = within 2-3 days ([facility]), 3-5 days (Non[facility], ie. [facility]) Urine Cultures = within 2-3 days depending on growth within the culture Pathology results (biopsy results/PAP) = 1-2 weeks Radiology results = about 1 week Cologuard results = within 2 weeks from the shipment date COVID testing = about 24 hours documented in this encounter Plan of Treatment Upcoming Encounters Date Type Department Care Team (Late st Contact Info) Description 06/22/2023 2:30 PM EST Home Visit [facility] [place], [address] [place] [address] Cindy Underwood, RN [address] [place] [address] 08/21/2023 12:30 PM EDT Therapy Neuropsychology [facility] [place] [address] Logan Morales, PhD 200 [facility] [place] [address] 09/06/2023 3:20 PM EDT Office Visit Neurology [facility] [address] [facility] [place] [address] Aparna Ruano PA-C [address] [facility] [place] [address] 09/11/2023 9:40 AM EDT Office Visit Rheumatology [place] [address] [address] [place] [address] Jimmy Giang MD [address] [place] [address] 09/17/2023 1:40 PM EDT Office Visit [facility] [address] [place] [id number] Anahy Grayson MD [address], [place] [phone] Scheduled Procedures Name Priority Associated Diagnoses Date/Ti me COLONOSCOPY FLEXIBLE PROXIMAL DIAGNOSTIC Recall Colon cancer screening Health Maintenance Due Date Last Done Comments DISCUSS TOBACCO CESSATION (REFER TO SMARTSET #4556) 1965 COVID-19 Vaccine (#1) 02/09/1969 Alpha-1 Antitrypsin [...] D LEVEL ONCE IN A LIFETIME-USE SMARTSET# 40352 Completed 08/04/2021 GARDASIL-HPV IMMUNIZATION SERIES Aged Out No longer eligible based on patient's age to complete this topic MENINGOCOCCAL (MENACTRA/MENVEO) Aged Out No longer eligible based on patient's age to complete this topic documented as of this encounter Medical Devices Not on filedocumented as of this encounter Care Teams Pet Adoption Counselor Relationship Specialty Start Date End Date Anahy Grayson MD [address] [place] [address] PCP - General Internal Medicine 01/27/22 documented as of this encounter
--- OUTSIDE RECORDS SUMMARY | 2023-08-13 00:16 | External Medical Summary | Summary of Care ---
Author Name Unknown Organization [facility] Address [address] [place] [address] Phone [phone] Care Team Providers Care Wardrobe Consultant Name Role Phone Anahy Grayson MD Primary Care Provider [phone] Reason for Visit * Reason Onset Date Comments Advice 05/29/2023 Test Results 05/29/2023 Encounter Details Date Type Department Care Team (Late st Contact Info) Description 05/29/2023 Telephone Pulmonary Medicine, [facility] [address] [place] [address] Caden Plaza MD [address] [place] [address] Advice; Test Results Allergies No known active allergiesdocumented as of this encounter (statuses as of 06/05/2023) Medications Medication Sig Dispensed Refills Start Date End Date Status Aspirin 81 MG Oral Tablet Delayed Release Take 1 Tablet by mouth in the morning. 0 Active Spiriva Respimat 2.5 MCG/ACT Inhalation Aerosol Solution (Tiotropium [place] Monohydrate) Inhale by mouth 2 Puffs in [...] Oral Tablet (Crestor)Indicatio ns:Coronary artery disease involving [place] coronary artery of [place] heart without angina pectoris,HFrEF (heart failure [...] Oral Tablet (Revatio)Indicatio ns:Raynaud's disease with gangrene ([facility]) TAKE ONE TABLET BY MOUTH EVERY MORNING [...] :HFrEF (heart failure with reduced ejection fraction) ([facility]) Take 2 Tablets by mouth in the morning. 180 Tablet 3 04/30/2023 Active Jardiance 10 MG Oral Tablet (Empagliflozin)Ind ications:HFrEF (heart failure with reduced ejection fraction) ([facility]) TAKE 1 TABLET BY MOUTH EVERY MORNING 90 Tablet 3 05/08/2023 Active oxyCODONE-Acetamin ophen 5-325 MG Oral Tablet (Percocet)Indicati ons:Rheumatoid arthritis involving multiple sites with positive rheumatoid factor ([facility]),DDD (degenerative disc disease), lumbar,Thoracic compression fracture, closed, initial encounter ([facility]),Old tear of lateral meniscus of knee, unspecified [...] dose Rx Exacerbation plan o 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 She really needs Dr Plaza to look at Harrison's latest CT Scans. Hayley is veryconcern about the nodule in his lung. Hayley can be reached at [phone] * Telephone Encounter - Melissa De Los [...] and advise. You can reach Hayley at [phone]. documented in this encounter Plan of Treatment Upcoming Encounters Date Type Department Care Team (Late st Contact Info) Description 06/22/2023 2:30 PM EST Home Visit [facility], [facility] 132 [facility] [place] [address] Cindy Underwood, RN 132 [facility] [place] [address] 08/21/2023 12:30 PM EDT Therapy Neuropsychology [facility] [place] [facility] [place] [address] Logan Morales, PhD 200 [facility] [place] [address] 09/06/2023 3:20 PM EDT Office Visit Neurology [facility] [place] [facility] [place] [address] Aparna Ruano PA-C [address] [place] [address] 09/11/2023 9:40 AM EDT Office Visit Rheumatology [place] [id number] [place] [address] Jimmy Giang MD [address] [place] [address] 09/17/2023 1:40 PM EDT Office Visit [facility] [address] [facility] [address] Anahy Grayson MD [address] [facility] [place] [address] Scheduled Procedures Name Priority Associated Diagnoses Date/Ti [...] D LEVEL ONCE IN A LIFETIME-USE SMARTSET# 56050 Completed 08/04/2021 GARDASIL-HPV IMMUNIZATION SERIES Aged Out No longer eligible based on patient's age to complete this topic MENINGOCOCCAL (MENACTRA/MENVEO) Aged Out No longer eligible based on patient's age to complete this topic documented as of this encounter Medical Devices Not on filedocumented as of this encounter Care Teams Wardrobe Consultant Relationship Specialty Start Date End Date Anahy Grayson MD [address] [place] [address] PCP - General Internal Medicine 01/27/22 documented as of this encounter
--- OUTSIDE RECORDS SUMMARY | 2023-08-13 00:17 | External Medical Summary | Summary of Care ---
Author Name Unknown Organization [facility] Address [address] [facility] [place] [address] Phone [phone] Care Team Providers Care Street Sprinkler Name Role Phone Anahy Grayson MD Primary Care Provider [phone] Reason for Visit * Reason Onset Date Comments [facility]: Maintenance 05/04/2023 Encounter Details Date Type Department Care Team (Late st Contact Info) Description 05/04/2023 10:30 AM EST Scheduled Telephone [facility], [facility] 132 [facility] [place] [address] [facility] 132 [facility] [place] [address] Allergies No known active allergiesdocumented as of this encounter (statuses as of 05/04/2023) Medications Medication Sig Dispensed Refills Start Date End Date Status Aspirin 81 MG Oral Tablet Delayed Release Take 1 Tablet by mouth in the morning. 0 Active Spiriva Respimat 2.5 MCG/ACT Inhalation Aerosol Solution (Tiotropium [place] Monohydrate) Inhale by mouth 2 Puffs in the morning. 4 g 11 03/21/2022 Active Additional Information Patient not taking.Reported on 04/20/2023 Lidocaine 5 % External Patch (Lidoderm) Place 1 Patch topically on the skin daily. 30 Patch 1 06/23/2022 Active Additional Information Patient not taking.Reported on 04/20/2023 Vitamin D3 10 MCG (400 UNIT) Oral [...] twice per day.. 180 Tablet 09/19/2022 Active Empagliflozin 10 MG Oral Tablet (Jardiance) Take 1 Tablet by mouth in the morning. 30 Tablet 10/17/2022 Active Spironolactone 25 MG Oral Tablet (Aldactone) Take 0.5 Tablets by mouth in the morning. 15 Tablet 10/17/2022 Active Rosuvastatin Calcium 5 MG Oral Tablet (Crestor)Indication s:Coronary artery disease involving [place] coronary artery of [place] heart without angina pectoris,HFrEF (heart failure with [...] 04/20/2023 Sarilumab 200 MG/1.14ML Subcutaneous Solution Auto-injector ([employer]zara)Indication s:Rheumatoid arthritis involving multiple sites with positive rheumatoid factor (HCC) Inject 1.14 mL under the skin every 14 days. 2.28 mL 11 03/05/2023 Active Omeprazole 40 MG Oral Capsule Delayed Release (PriLOSEC) Take 1 Capsule by mouth in the morning. 1 hour before the first meal of the day.. 90 Capsule 3 03/15/2023 Active HYDROcodone-Acetami nophen 10-325 MG Oral Tablet Take 1 Tablet by mouth every 6 hours as needed for Pain, Severe. 90 Tablet 0 03/17/2023 Active Sildenafil Citrate 20 MG Oral Tablet [...] the morning. 180 Tablet 3 04/30/2023 Active Molnupiravir 200 MG Oral Capsule Take 4 Capsules by mouth in the morning and 4 Capsules before bedtime. 40 Capsule 0 04/30/2023 Active documented as of this encounter (statuses as of 05/04/2023) Active Problems Problem Noted Date Diagnosed Date [...] as of this encounter (statuses as of 05/04/2023) Resolved Problems Problem Noted Date Diagnosed Date [...] as of this encounter (statuses as of 05/04/2023) Immunizations Name Administration Dates Next Due HepA Inact/HepB Recomb>=18yrs old 08/26/2018 Hepatitis B, 20+ yrs 05/27/2019,10/10/2018 Pneumococcal Conjugate Vacc, 13 Valent (Prevnar) 03/21/2019 Pneumococcal Polysaccharide PPV23 (Pneumovax) 02/12/2020 SEASONAL INFLUENZA, PF, 6 M & Above, IM , (FLULAVAL or FLUZONE) 03/03/2021,02/12/2020,03/21/2019,08/2017,03/15/2017 04/30/2019 TD - Tetanus/Diptheria (ADULT) 03/28/2007 [...] Telephone Encounter - Lizette Christianson RN - 05/04/2023 10:38 AM EST [facility] Fixed Income Portfolio Manager Monthly Visit Date: 05/04/2023 Time: 10:39 AM Name: Harrison Morgan : 1965 Monthly follow up call to Harrison, agreed to telephonic assessment, aware that call is being recorded for training purposes. Problems/Symptoms: HPI: Harrison reports having COVID, was positive on 04/29/23 with a home test, everyone in the home is positive, was started on Paxlovid by PCP on 04/30/23, compliant in taking. Has intermittent fevers 101.0, +chills, +headache at times, some N/V, vomited bile this morning, instructed to take Zofran, is eating and drinking, SPO2 91% on RA Constitutional: no weight is the same, around 193lbs, +weakness, and +fatigue from COVID, is getting plenty of rest Resp: + cough, + sputum white, + wheezing, and + dyspnea with exertion, wears O2 prn Cardiac: no chest pain, no dyspnea on exertion, no edema, no claudication, no palpitations, + dyspnea on exertion, and + PND/stuffy nose due to COVID, encouraged to use saline nasal spray prn GI: no pain, no heartburn, no diarrhea, no constipation, no blood/melena, + nausea, + vomiting, LBMwas today, is urinating wnl's Musculoskeletal: no swelling, + back pain, and + generalized body aches due to COVID, taking hydrocodone prn Neuro: no memory loss, no weakness, no falling, no numbness or tingling, and no vertigo Medication Reconciliation: Does patient take medications as ordered: Yes, he manages his own medications No refills needed at this time Has [facility] RNCM follow up on 05/18/23 Lizette Christianson RN 05/04/2023 documented in this encounter Plan of Treatment Upcoming Encounters Date Type Department Care Team (Late st Contact Info) Description 05/07/2023 1:20 PM EST Office Visit [place] [id number] [place] [facility] [place] [address] Anahy Grayson MD [address] [place] [facility] [place] [address] 05/18/2023 4:00 PM EST [facility] Visit [facility], [facility] 132 [facility] [place] [address] Cindy Underwood, RN 132 [facility] [place] [address] 06/26/2023 11:30 AM EST Office Visit Cardiology, [facility] 132 [facility] [place] [address] Elizabeth Mccann CRNP 400 [facility] [place] [address] 08/21/2023 12:30 PM EDT Therapy Neuropsychology [facility] [address] [facility] [place] [address] Logan Morales, PhD [address] [facility] [place] [address] 09/06/2023 3:20 PM EDT Office Visit Neurology [facility] [address] [facility] [place] [address] Aparna Ruano PA-C [address] [facility] [place] [address] Scheduled Procedures Name Priority Associated Diagnoses Date/Ti [...] D LEVEL ONCE IN A LIFETIME-USE SMARTSET# 95797 Completed 08/04/2021 GARDASIL-HPV IMMUNIZATION SERIES Aged Out No longer eligible based on patient's age to complete this topic MENINGOCOCCAL (MENACTRA/MENVEO) Aged Out No longer eligible based on patient's age to complete this topic documented as of this encounter Medical Devices Not on filedocumented as of this encounter Care Teams Street Sprinkler Relationship Specialty Start Date End Date Anahy Grayson MD [address] [place] [address] PCP - General Internal Medicine 01/27/22 documented as of this encounter
--- OUTSIDE RECORDS SUMMARY | 2023-08-13 00:17 | External Medical Summary | Summary of Care ---
Author Name Unknown Organization [facility] Address [address] [place] [address] Phone [phone] Care Team Providers Care Travel Sales Consultant Name Role Phone Anahy Grayson MD Primary Care Provider [phone] Encounter Details Date Type Department Care Team (Latest Contact Info) Description 04/07/2022 4:20 PM EST - 04/07/2022 11:59 PM EST Hospital Encounter Radiology [facility] [address] [place] [address] Discharge Disposition: Home - Self Care Allergies No known active allergiesdocumented as of this encounter (statuses as of 05/01/2023) Medications Medication Sig Dispensed Refills Start Date End Date Status Aspirin 81 MG Oral Tablet Delayed Release Take 1 Tablet by mouth in the morning. 0 Active Spiriva Respimat 2.5 MCG/ACT Inhalation Aerosol Solution (Tiotropium [place] Monohydrate) Inhale by mouth 2 Puffs in the morning. 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 06/23/2022 Scoliosis 06/23/2022 [...] as of this encounter (statuses as of 05/01/2023) Resolved Problems Problem Noted Date Diagnosed Date [...] as of this encounter (statuses as of 05/01/2023) Immunizations Name Administration Dates Next Due HepA [...] Types Packs/Day Years Used Date Smoking Tobacco: Every Day Cigarettes 0.1 30 Smokeless Tobacco: Never Comments:3 cigarettes a day as of 01/26/22 Alcohol Use Standard Drinks/Week Comments No 0 (1 standard drink = 0.6 oz [...] AM EST Scheduled Telephone [facility], [facility] [address] [place] [address] [facility] Nurse Triage [address] [place] [address] 05/07/2023 1:20 PM EST [facility] [address] [facility] [id number] Anahy Grayson MD [address] [facility] [id number] 05/18/2023 4:00 PM EST Home Visit [facility], [facility] 132 [facility] [place] [address] Cindy Underwodo, RN 132 [facility] [place] [address] 06/26/2023 11:30 AM EST Office Visit Cardiology, [facility] 132 [facility] [place] [address] Elizabeth Mccann CRNP [address] [place] [phone] 08/21/2023 12:30 PM EDT Therapy Neuropsychology [facility] 200 [place] [address] Logan Morales, PhD 200 [place] [place] [address] 09/06/2023 3:20 PM EDT Office Visit Neurology [facility] [address] [facility] [place] [address] Aparna Ruano PA-C 200 [place] [address] Scheduled Procedures Name Priority Associated Diagnoses Date/Ti me COLONOSCOPY FLEXIBLE PROXIMAL DIAGNOSTIC Recall Colon cancer screening Health Maintenance Due Date Last Done Comments DISCUSS TOBACCO CESSATION (REFER TO SMARTSET #1788) 1965 COVID-19 Vaccine (#1) 02/09/1970 Alpha-1 Antitrypsin [...] D LEVEL ONCE IN A LIFETIME-USE SMARTSET# 83928 Completed 08/04/2021 GARDASIL-HPV IMMUNIZATION SERIES Aged Out No longer eligible based on patient's age to complete this topic MENINGOCOCCAL (MENACTRA/MENVEO) Aged Out No longer eligible based on patient's age to complete this topic documented as of this encounter Medical Devices Not on filedocumented as of this encounter Procedures Procedure Name Priority Date/Time Associated Diagnosis Comments RADIOLOGY EXAM - CT (IMAGES ONLY, NO REPORT) Routine 04/07/2022 4:20 PM EST documented in this encounter Results * RADIOLOGY EXAM - CT (IMAGES ONLY, NO REPORT) (04/07/2022 4:20 PM EST) 04/07/2022 4:16 PM EST Narrative Scheduling, Silent - 04/30/2023 2:42 PM EST This is an imaging study not interpreted or resulted by a [facility] or [facility] contracted radiologist. Zahida Monroy PA-C RAD CT documented in this encounter Care Teams Travel Sales Consultant Relationship Specialty Start Date End Date Anahy Grayson MD [address] [place] [address] PCP - General Internal Medicine 01/27/22 documented as of this encounter
--- OUTSIDE RECORDS SUMMARY | 2023-08-13 00:17 | External Medical Summary | Summary of Care ---
Author Name Unknown Organization [facility] Address [address] [place] [address] Phone [phone] Care Team Providers Care Community Engagement Manager Name Role Phone Anahy Grayson MD Primary Care Provider Reason for Visit * Reason Comments Follow Up Encounter Details Date Type Department Care Team (Latest Contact Info) Description 05/17/2023 1:20 PM EST Office Visit 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 0 Active Spiriva Respimat 2.5 MCG/ACT Inhalation Aerosol Solution (Tiotropium [place] Monohydrate) Inhale by mouth 2 Puffs in [...] 01/09/2023 Active predniSONE 5 MG Oral Tablet (Deltasone)Indica [...] 04/20/2023 Sarilumab 200 MG/1.14ML Subcutaneous Solution Auto-injector (Sense of Skinzara)Indicati ons:Rheumatoid arthritis involving multiple sites with positive [...] Oral Tablet (Revatio)Indicati ons:Raynaud's disease with gangrene ([facility]) TAKE ONE TABLET BY MOUTH EVERY MORNING , 1 TABLET AT NOON AND 2 TABLETS BEFORE BEDTIME 90 Tablet 2 03/30/2023 Active HYDROcodone-Aceta minophen 10-325 MG Oral Tablet Take 1 Tablet by mouth every 6 hours as needed for Pain, Severe. 90 Tablet 0 04/17/2023 Active sulfaSALAzine 500 MG Oral Tablet Delayed Release (Azulfidine Entab) Take 1 Tablet by mouth in the morning. 0 Active Furosemide 20 MG Oral Tablet (Lasix)Indication s:HFrEF (heart failure with reduced ejection fraction) ([facility]) Take 2 Tablets by mouth in the morning. 180 Tablet 3 04/30/2023 Active Jardiance 10 MG Oral Tablet (Empagliflozin)In dications:HFrEF (heart failure with reduced ejection fraction) ([facility]) TAKE 1 TABLET BY MOUTH EVERY MORNING 90 Tablet 3 05/08/2023 Active oxyCODONE-Acetami nophen 5-325 MG Oral Tablet (Percocet)Indicat ions:Rheumatoid arthritis involving multiple sites with positive rheumatoid factor ([facility]),DDD (degenerative disc disease), lumbar,Thoracic compression fracture, closed, initial encounter ([facility]),Old tear of lateral meniscus of knee, unspecified laterality, unspecified tear type Take 1 Tablet by mouth every 6 hours as needed for Pain, Severe or Pain, Moderate. 60 Tablet 0 05/17/2023 Active Lidocaine 5 % External Patch (Lidoderm) Place 1 Patch topically on the skin daily. 30 Patch 1 06/23/2022 05/17/20 Discontinued HYDROcodone-Aceta minophen 10-325 MG Oral Tablet Take 1 Tablet by mouth every 6 hours as needed for Pain, Severe. 90 Tablet 0 03/17/2023 05/17/20 Discontinued Molnupiravir 200 MG Oral Capsule Take 4 Capsules by mouth in the morning and 4 Capsules before bedtime. 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 06/23/2022 Scoliosis 06/23/2022 [...] as of this encounter (statuses as of 05/17/2023) Resolved Problems Problem Noted Date Diagnosed Date [...] as of this encounter (statuses as of 05/17/2023) Immunizations Name Administration Dates Next Due HepA [...] Sign Reading Time Taken Comments Blood Pressure 100/70 05/17/2023 1:17 PM EST Pulse 84 05/17/2023 1:17 PM EST Temperature 36.7 C (98.1 F) 05/17/2023 1:17 PM ES T Respiratory Rate 18 05/17/2023 1:17 PM EST Oxygen Saturation - - Inhaled Oxygen Concentration - - Weight 92.5 kg (204 lb) 05/17/2023 1:17 PM EST Height 172.7 cm (5' 8") 05/17/2023 1:17 PM EST Body Mass Index 31.02 05/17/2023 1:17 PM EST documented in this encounter Progress Notes * Anahy Grayson MD - 05/17/2023 1:27 PM EST Subjective Harrison Morgan is a 58 year old male. Chief Complaint Patient presents with Follow Up HPI: Here for routine checkup Chronic progressing pain, moderate to severe Active RA - taking every 2 wks injection and sulfasalazine and prednisone 10 mg F/u with Dr edmonds Had hands other joints swelling now , pain persistent Can't get vicodin due to supply issues , was taking 10/325 but still in pain moderate all the time Will try percocet 5/325 4 times daily as needed for severe to moderate pain Known severe lumbar thoracic DDD, knee OA And also recent CT showed T7 compression fracture accidentally Using a cane, longterm disability now Known Afib, on digoxin, toprol, eliquis and CMP, EF 45 % , PAD, CHF F/u with cardio Overall stable No recent CP, SOB COPD, stopped smoking , taking spiriva Depression chronic , on cymbalta 30 mg Lung nodules - on recent CT chest showed more than 2 cm, mass , B/L nodules, in apr Biopsy - benign F/u with pulmo And f/u with neuro - MRI and CT showed subacute infarct , moderate microvascular ischemic changes ,etc No current neuro sx PMH: Patient Active Problem List Diagnosis Code DJD (degenerative joint disease) M19.90 Erectile dysfunction N52.9 Tobacco use disorder F17.200 MEDICATION USE AGREEMENT [id number] Rheumatoid arthritis involving multiple sites with positive rheumatoid factor ([facility]) M05.79 Hepatitis C virus infection cured after antiviral drug therapy Z86.19 Effusion of left knee M25.462 Knee pain M25.569 Tear of lateral meniscus of knee S83.289A Gastro-esophageal reflux disease without esophagitis K21.9 PAD (peripheral artery disease) ([facility]) I73.9 Depression with anxiety F41.8 Cardiomyopathy ([facility]) I42.9 DDD (degenerative disc disease), lumbar M51.36 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, Z79.899 Age-related nuclear cataract, bilateral H25.13 SVT (supraventricular tachycardia) I47.10 Frequent PVCs I49.3 Chronic systolic heart failure ([facility]) I50.22 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 Spiriva Respimat 2.5 MCG/ACT Inhalation Aerosol Solution (Tiotropium [place] Monohydrate) Inhale bymouth 2 Puffs in the [...] 2 Sarilumab 200 MG/1.14ML Subcutaneous Solution Auto-injector (Colizer) Inject 1.14 mL under the skinevery 14 days. 2.28 mL 11 Omeprazole 40 MG Oral Capsule Delayed Release (PriLOSEC) Take 1 Capsule by mouth in the morning. 1 hour before the first meal of the day.. 90 Capsule 3 HYDROcodone-Acetaminophen 10-325 MG Oral Tablet Take 1 Tablet by mouth every 6 hours as needed for Pain, Severe. 90 Tablet 0 sulfaSALAzine 500 MG Oral Tablet Delayed Release (Azulfidine Entab) Take 1 Tablet by mouth in the morning. Furosemide 20 MG Oral Tablet (Lasix) Take 2 Tablets by mouth in the morning. 180 Tablet 3 Jardiance 10 MG Oral Tablet (Empagliflozin) TAKE 1 TABLET BY MOUTH EVERY MORNING 90 Tablet 3 oxyCODONE-Acetaminophen 5-325 MG Oral Tablet (Percocet) Take 1 Tablet by mouth every 6 hours as needed for Pain, Severe or Pain, Moderate. 60 Tablet 0 Sildenafil Citrate 20 MG Oral Tablet (Revatio) TAKE ONE TABLET BY MOUTH EVERY MORNING , 1 TABLET ATNOON AND 2 TABLETS BEFORE BEDTIME 90 Tablet 2 No current facility-administered medications for this visit. Past Medical History: Diagnosis Date Lung nodule Primary localized osteoarthrosis of shoulder region 05/28/2008 right Rotator cuff syndrome 05/28/2008 right Tobacco use disorder Past Surgical History: Procedure Laterality Date BRONCHOSCOPY, DIAGNOSTIC N/A 10/11/2022 BRONCHOSCOPY DIAGNOSTIC WITH OR WITHOUT WASHING performed by Randall England MD [place] [facility] [place]OSCOPY, DIAGNOSTIC (RECTUM) 07/24/2017 normal, repeat 10 yrs/COLONOSCOPY FLEXIBLE PROXIMAL DIAGNOSTIC performed by Paul Verma MD at ENDOSCOPY [facility] DENTAL SURGERY PROCEDURE NEC age 15 [...] on file Occupational History 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 Possible mold in his home. job: [employer] employer: [employer] last education: 12 service: no hobbies/interests: Hunting fishing transfusions: no exercise: little diet: no restorationism/buddhism: no marital status: 09/26 children: 07/26 gc: [...] Negative for visual disturbance. Respiratory: Positive for cough. Negative for chest tightness, shortness of breath and wheezing. Cardiovascular: Negative for chest pain, palpitations and leg swelling. Gastrointestinal: Negative for abdominal distention, abdominal pain, blood in stool and vomiting. Endocrine: Negative. Genitourinary: Negative for hematuria. Musculoskeletal: Positive for arthralgias, back pain, gait problem, joint swelling, myalgias, neck pain and neck stiffness. Skin: Negative for rash. Allergic/Immunologic: Positive for environmental allergies and immunocompromised state. Neurological: Positive for weakness, numbness and headaches. Negative for dizziness and light-headedness. Hematological: Negative for adenopathy. Psychiatric/Behavioral: Positive for dysphoric mood and sleep disturbance. Negative for agitation and behavioral problems. Objective BP 100/70 | Pulse 84 | Temp 36.7 C (98.1 F) | Resp 18 | Ht 1.727 m (5' 8") | Wt 92.5 kg (204 lb) | BMI 31.02 kg/m | BSA 2.11 m Physical Exam Constitutional: General: He is not in acute distress. Appearance: Normal appearance. He is not ill-appearing, toxic-appearing or diaphoretic. HENT: Head: Normocephalic and atraumatic. Nose: Nose normal. Eyes: Extraocular Movements: Extraocular movements intact. Cardiovascular: Rate and Rhythm: Regular rhythm. Pulses: Normal pulses. Heart sounds: Murmur heard. Pulmonary: Effort: Pulmonary effort is normal. No respiratory distress. Breath sounds: Normal breath sounds. No stridor. No wheezing, rhonchi or rales. Chest: Chest wall: No tenderness. Abdominal: Palpations: Abdomen is soft. Musculoskeletal: General: Swelling and tenderness present. Cervical back: Tenderness present. Right lower leg: No edema. Left lower leg: No edema. Neurological: Mental Status: He is alert and oriented to person, place, and time. Cranial Nerves: No cranial nerve deficit. Sensory: No sensory deficit. Gait: Gait abnormal. Psychiatric: Mood and Affect: Mood normal. Behavior: Behavior normal. ASSESSMENT/PLAN: Rheumatoid arthritis involving multiple sites with positive rheumatoid factor ([facility]) (Primary) - ERYTHROCYTE SEDIMENTATION RATE (ESR); Future; Expected date: 05/17/2023 - CRP (INFLAMMATORY MARKER); Future; Expected date: 05/17/2023 - oxyCODONE-Acetaminophen 5-325 MG Oral Tablet (Percocet); Take 1 Tablet by mouth every 6 hours as needed for Pain, Severe or Pain, Moderate. 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 Thoracic compression fracture, closed, initial encounter ([facility]) - oxyCODONE-Acetaminophen 5-325 MG Oral Tablet (Percocet); Take 1 Tablet by mouth every 6 hours as needed for Pain, Severe or Pain, Moderate. Old tear of lateral meniscus of knee, unspecified laterality, unspecified tear type - oxyCODONE-Acetaminophen 5-325 MG Oral Tablet (Percocet); Take 1 Tablet by mouth every 6 hours as needed for Pain, Severe or Pain, Moderate. Follow-up: Return in about 4 months (around 09/16/2023). | Check-out note: Schedule with his rheumatology any time soon for RA Cont current meds F/u with neuro, cardio and rheuma F/u blood tests Diet Pain med prn Anahy Grayson MD documented in this encounter Nursing Notes * Rosie Blackman LPN - 05/17/2023 1:19 PM EST The patient has been properly identified by confirmation of name and date of . Chief Complaint Patient presents with Follow Up documented in this encounter Plan of Treatment Upcoming Encounters Date Type Department Care Team (Late st Contact Info) Description 05/18/2023 4:00 PM EST Home Visit [facility] [address] [facility] [place] [address] Cindy Underwood, RN [address] [facility] [place] [address] 08/21/2023 12:30 PM EDT Therapy Neuropsychology [facility] [place]ickie [place] [address] [facility] [place] [address] Logan Morales, PhD [address] [facility] [place] [address] 09/06/2023 3:20 PM EDT Office Visit Neurology [facility] [place] [address] [facility] [place] [address] Aparna Ruano PA-C [address] [facility] [place] [address] 09/17/2023 1:40 PM EDT [address] [id number] Anahy Grayson MD [address] [place] [address] [place] [address] Scheduled Orders Name Type Priority Associated Diagnoses Orde r Schedule ERYTHROCYTE SEDIMENTATION RATE (ESR) Lab Routine Rheumatoid arthritis involving multiple sites with positive rheumatoid factor (HCC) Expected: 05/17/2023 (Approximate), Expires: 05/16/2024 CRP (INFLAMMATORY MARKER) Lab Routine Rheumatoid arthritis involving multiple sites with positive rheumatoid factor (HCC) Expected: 05/17/2023 (Approximate), Expires: 05/16/2024 BASIC METABOLIC PANEL Lab Routine Persistent atrial fibrillation (HCC) PAD (peripheral artery disease) (HCC) HFrEF (heart failure with reduced ejection fraction) (HCC) Expected: 05/17/2023 (Approximate), Expires: 05/16/2024 Scheduled Procedures Name Priority Associated Diagnoses Date/Ti me COLONOSCOPY FLEXIBLE PROXIMAL DIAGNOSTIC Recall Colon cancer screening Health Maintenance Due Date Last Done Comments DISCUSS TOBACCO CESSATION (REFER TO SMARTSET #0644) 1965 COVID-19 Vaccine (#1) 02/09/1969 Alpha-1 Antitrypsin [...] D LEVEL ONCE IN A LIFETIME-USE SMARTSET# [id number] Completed 08/04/2021 GARDASIL-HPV IMMUNIZATION SERIES Aged Out No longer eligible based on patient's age to complete this topic MENINGOCOCCAL (MENACTRA/MENVEO) Aged Out No longer eligible based on patient's age to complete this topic documented as of this encounter Medical Devices Not on filedocumented as of this encounter Visit Diagnoses Diagnosis Rheumatoid arthritis involving multiple sites with positive rheumatoid factor (HCC)- Primary Persistent atrial fibrillation (HCC) Atrial fibrillation PAD (peripheral artery disease) (HCC) Peripheral vascular disease, unspecified HFrEF (heart failure with reduced ejection fraction) (HCC) COPD, group B, by GOLD 2017 classification (HCC) Chronic systolic heart failure (HCC) Chronic systolic heart failure FPC systemic steroid user Lung mass Swelling, mass, or lump in chest Tobacco use disorder DDD (degenerative disc disease), lumbar Degeneration of lumbar or lumbosacral intervertebral disc Thoracic compression fracture, closed, initial encounter (HCC) Old tear of lateral meniscus of knee, unspecified laterality, unspecified tear type documented in this encounter Care Teams Community Engagement Manager Relationship Specialty Start Date End Date Anahy Grayson MD [address] [place] [address] PCP - General Internal Medicine 01/27/22 documented as of this encounter
--- OUTSIDE RECORDS SUMMARY | 2023-08-13 00:17 | External Medical Summary | Summary of Care ---
Author Name Unknown Organization [facility] Address [address] [facility] [address] Phone [phone] Care Team Providers Care Satellite Television Installer Name Role Phone Anahy Grayson MD Primary Care Provider [phone] Reason for Visit * Reason Comments [facility]: Maintenance Encounter Details Date Type Department Care Team (Late st Contact Info) Description 05/22/2023 4:00 PM EST [facility] [place] [address] Cindy Underwood, RN [facility] [place] [address] Allergies No known active allergiesdocumented as of this encounter (statuses as of 05/23/2023) Medications Medication Sig Dispensed Refills Start Date End Date Status Aspirin 81 MG Oral Tablet Delayed Release Take 1 Tablet by mouth in the morning. 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 60 Tablet 2 03/05/2023 Active Additional Information Patient taking differently: 10 mg Oral DAILY PRN, flare up for RA, Take one to two tablets by mouth daily for rheumatoid arthritis as needed, Reported on 04/20/2023 Sarilumab 200 MG/1.14ML Subcutaneous Solution Auto-injector (Equiomzara)Indication s:Rheumatoid arthritis involving multiple sites with positive [...] as of this encounter (statuses as of 05/23/2023) Active Problems Problem Noted Date Diagnosed Date [...] as of this encounter (statuses as of 05/23/2023) Resolved Problems Problem Noted Date Diagnosed Date [...] as of this encounter (statuses as of 05/23/2023) Immunizations Name Administration Dates Next Due HepA [...] Sign Reading Time Taken Comments Blood Pressure 124/68 05/22/2023 2:16 PM EST Pulse 86 05/22/2023 2:16 PM EST Temperature 36.4 C (97.5 F) 05/22/2023 2:16 PM ES T Respiratory Rate 18 05/22/2023 2:16 PM EST Oxygen Saturation - - Inhaled Oxygen Concentration - - Weight 90.7 kg (200 lb) 05/22/2023 2:16 PM EST Height - - Body Mass Index 30.41 05/17/2023 1:17 PM EST documented in this encounter Progress Notes * Cindy Underwood RN - 05/22/2023 1:46 PM EST [facility] Administrative Receptionist Monthly Visit Date: 05/22/2023 Time: 1:46 PM Name: Harrison Morgan : 1965 Current Concerns: Pt seen for return RNCM visit Wt today was not checked He reports he last checked on 05/20 and he was 200 lbs He reports he has been eating more because of the holidays No increased SOB from baseline Reports he does have episodes that are "up and down" No increased LE edema Pt recently had CT done, in f/u of MRI that showed possible old infarcts - TE sent to neuro for f/u Pt had covid earlier this month - feels he is back to baseline from this Physical Exam: BP 124/68 | Pulse 86 | Temp 36.4 C (97.5 F) | Resp 18 | Wt 90.7 kg (200 lb) | BMI 30.41 kg/m | BSA 2.09 m Pain 0 Physical Exam Constitutional: General: He is not in acute distress. Cardiovascular: Rate and Rhythm: Normal rate. Rhythm irregular. Pulses: Normal pulses. Heart sounds: Normal heart sounds. Pulmonary: Effort: Pulmonary effort is normal. Breath sounds: Normal breath sounds. Abdominal: General: Bowel sounds are normal. Palpations: Abdomen is soft. Skin: General: Skin is warm and dry. Neurological: Mental Status: He is alert and oriented to person, place, and time. Problems/Symptoms: Review of Systems Constitutional: Negative. HENT: Negative. Eyes: Negative. Respiratory: Positive for shortness of breath (LEVIN - at baseline). Cardiovascular: Negative. Gastrointestinal: Negative. Genitourinary: Negative. Musculoskeletal: Positive for arthralgias, back pain and gait problem. Psychiatric/Behavioral: Negative. Medication Reconciliation: (See medication list) Does patient take medications as ordered: Yes Patient Well Being: PHQ2/9: No questionnaires available. No change in living situation Denies any recent falls [facility]-10 Completed this Visit: No. Routine visit and No falls since last visit Advanced Care Planning: No documentation, ACP on file. 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 Provider is in agreement with Plan of Care: Yes Scheduled to follow up with patient in one month. Cindy Underwood RN 05/22/2023 1:46 PM documented in this encounter Plan of Treatment Upcoming Encounters Date Type Department Care Team (Late st Contact Info) Description 06/22/2023 2:30 PM EST [facility] Visit [facility] [address] [facility] [place] [address] Cindy Underwood RN 132 [facility] [place] [address] 08/21/2023 12:30 PM EDT Therapy [facility] [address] [place] [address] Logan Morales, PhD 200 [facility] [place] [address] 09/06/2023 3:20 PM EDT Office Visit Neurology [facility] [place] [address] [place] [address] Aparna Ruano PA-C [address] [place] [address] 09/11/2023 9:40 AM EDT Office Visit Rheumatology [place] [id number] Located [facility] [place] [address] Jimmy Giang MD [facility] [address] 09/17/2023 1:40 PM EDT Office Visit [facility] [address] [place] [address] Anahy Grayson MD [address] [place] [address] Scheduled Procedures Name Priority Associated Diagnoses Date/Ti me COLONOSCOPY FLEXIBLE PROXIMAL DIAGNOSTIC Recall Colon cancer screening Health Maintenance Due Date Last Done Comments DISCUSS TOBACCO CESSATION (REFER TO SMARTSET #3297) 1965 COVID-19 Vaccine (#1) 02/09/1969 Alpha-1 Antitrypsin [...] D LEVEL ONCE IN A LIFETIME-USE SMARTSET# [id number] Completed 08/04/2021 GARDASIL-HPV IMMUNIZATION SERIES Aged Out No longer eligible based on patient's age to complete this topic MENINGOCOCCAL (MENACTRA/MENVEO) Aged Out No longer eligible based on patient's age to complete this topic documented as of this encounter Medical Devices Not on filedocumented as of this encounter Care Teams Satellite Television Installer Relationship Specialty Start Date End Date Anahy Grayson MD [address] [place] [address] PCP - General Internal Medicine 01/27/22 documented as of this encounter
--- OUTSIDE RECORDS SUMMARY | 2023-08-13 00:17 | External Medical Summary | Summary of Care ---
Author Name Unknown Organization [facility] Address [address] [place] [address] Phone [phone] Care Team Providers Care Repertoire Manager Name Role Phone Anahy Grayson MD Primary Care Provider [phone] Encounter Details Date Type Department Care Team ([facility] st Contact Info) Description 05/10/2023 Specialty Pharmacy [facility], [address] [address] Medication, [place] Specialty Refill, [address] [address] Allergies No known active allergiesdocumented as of this encounter (statuses as of 05/10/2023) Medications Medication Sig Dispensed Refills Start Date End Date Status Aspirin 81 MG Oral Tablet Delayed Release Take 1 Tablet by mouth in the morning. 0 Active Spiriva Respimat 2.5 MCG/ACT Inhalation Aerosol Solution (Tiotropium Omega Monohydrate) Inhale by mouth 2 Puffs in [...] Oral Tablet (Crestor)Indication s:Coronary artery disease involving skag[place] coronary artery of sk[place] heart without angina pectoris,HFrEF (heart failure with [...] 04/20/2023 Sarilumab 200 MG/1.14ML Subcutaneous Solution Auto-injector ([employer]zara)Indication s:Rheumatoid arthritis involving multiple sites with positive [...] Oral Tablet (Revatio)Indication s:Raynaud's disease with gangrene ([facility]) TAKE ONE TABLET BY MOUTH [...] HFrEF (heart failure with reduced ejection fraction) ([facility]) Take 2 Tablets by mouth in the morning. 180 Tablet 3 04/30/2023 Active Molnupiravir 200 MG Oral Capsule Take 4 Capsules by mouth in the morning and 4 Capsules before bedtime. 40 Capsule 0 04/30/2023 Active Jardiance 10 MG Oral Tablet (Empagliflozin)Nalini cations:HFrEF (heart failure with reduced ejection fraction) ([facility]) TAKE 1 TABLET BY MOUTH EVERY MORNING 90 Tablet 3 05/08/2023 Active documented as of this encounter (statuses as of 05/10/2023) Active Problems Problem Noted Date Diagnosed Date [...] as of this encounter (statuses as of 05/10/2023) Resolved Problems Problem Noted Date Diagnosed Date [...] as of this encounter (statuses as of 05/10/2023) Immunizations Name Administration Dates Next Due HepA [...] Progress Notes * Sylvia Madrigal CPhT - 05/10/2023 10:25 AM EST Prescribed medication: Medication: Kevzara Shipment date: 05/14 Delivery method: Specialty Mail Location Medication Delivered too? Prescription Address: [address] [facility] [place] [address] [facility] 05/10/2023,10:25 AM documented in this encounter Plan of Treatment Upcoming Encounters Date Type Department Care Team (Late st Contact Info) Description 05/10/2023 1:20 PM EST [facility] [address] [facility] [phone] Anahy Grayson MD [address] [place] [address] 05/18/2023 4:00 PM EST Home Visit [facility] [address] [facility] [place] [address] Cindy Underwood RN 132 [facility] [place] [address] 06/26/2023 11:30 AM EST Office Visit Cardiology, [facility] 132 [facility] [place] [address] Elizabeth Mccann CRNP [address] [facility] [place] [phone] 08/21/2023 12:30 PM EDT Therapy Neuropsychology [address] [place] [address] [place] [address] Logan Morales, PhD 200 [facility] [place] [address] 09/06/2023 3:20 PM EDT Office Visit Neurology [facility] Vickie [place] [address] [place] [address] Aparna Ruano PA-C [address] [place] [address] Scheduled Procedures Name Priority Associated Diagnoses Date/Ti me COLONOSCOPY FLEXIBLE PROXIMAL DIAGNOSTIC Recall Colon cancer screening Health Maintenance Due Date Last Done Comments DISCUSS TOBACCO CESSATION (REFER TO SMARTSET #3947) 1965 COVID-19 Vaccine (#1) 02/09/1969 Alpha-1 Antitrypsin [...] D LEVEL ONCE IN A LIFETIME-USE SMARTSET# [id number] Completed 08/04/2021 GARDASIL-HPV IMMUNIZATION SERIES Aged Out No longer eligible based on patient's age to complete this topic MENINGOCOCCAL (MENACTRA/MENVEO) Aged Out No longer eligible based on patient's age to complete this topic documented as of this encounter Medical Devices Not on filedocumented as of this encounter Care Teams Repertoire Manager Relationship Specialty Start Date End Date Anahy Grayson MD [address] [place] [address] PCP - General Internal Medicine 01/27/22 documented as of this encounter
--- OUTSIDE RECORDS SUMMARY | 2023-08-13 00:17 | External Medical Summary | Summary of Care ---
Author Name Unknown Organization [facility] Address [address] [place] [address] Phone [phone] Care Team Providers Care Resource Specialist Teacher Name Role Phone Anahy Grayson MD Primary Care Provider [phone] Reason for Visit * Reason Comments eRx-Medication Refill Encounter Details Date Type Department Care Team (Late st Contact Info) Description 05/08/2023 Refill Cardiology, [facility] [address] [facility] [place] [address] Elizabeth Johnson CRNP 132 [facility] [place] [address] HFrEF (heart failure with reduced ejection fraction) ([facility])* Allergies No known active allergiesdocumented as of this encounter (statuses as of 05/08/2023) Medications Medication Sig Dispensed Refills Start Date End Date Status Aspirin 81 MG Oral Tablet Delayed Release Take 1 Tablet by mouth in the morning. 0 Active Spiriva Respimat 2.5 MCG/ACT Inhalation Aerosol Solution (Tiotropium [place] Monohydrate) Inhale by mouth 2 Puffs in [...] Oral Tablet (Crestor)Indicati ons:Coronary artery disease involving lime coronary artery of lime heart without angina pectoris,HFrEF (heart failure with [...] 04/20/2023 Sarilumab 200 MG/1.14ML Subcutaneous Solution Auto-injector (Preferred Systems Solutionszara)Indicati ons:Rheumatoid arthritis involving multiple sites with positive rheumatoid factor (HCC) Inject 1.14 mL under the skin every 14 days. 2.28 mL 11 03/05/2023 Active Omeprazole 40 MG Oral Capsule Delayed Release (PriLOSEC) Take 1 Capsule by mouth in the morning. 1 hour before the first meal of the day.. 90 Capsule 3 03/15/2023 Active HYDROcodone-Aceta minophen 10-325 MG Oral Tablet [...] with reduced ejection fraction) ([facility]) Take 2 Tablets by mouth in the morning. 180 Tablet 3 04/30/2023 Active Molnupiravir 200 MG Oral Capsule Take 4 Capsules by mouth in the morning and 4 Capsules before bedtime. 40 Capsule 0 04/30/2023 Active Jardiance 10 MG Oral Tablet (Empagliflozin)In dications:HFrEF (heart failure with reduced ejection fraction) (HCC) TAKE 1 TABLET BY MOUTH EVERY MORNING 90 Tablet 3 05/08/2023 Active Empagliflozin 10 MG Oral Tablet (Jardiance) Take 1 Tablet by mouth in the morning. 30 Tablet 5 10/17/2022 05/08/20 23 Discontinued documented as of this encounter (statuses as of 05/08/2023) Active Problems Problem Noted Date Diagnosed Date [...] dose Rx Exacerbation plan o Chest Xray half-way systemic steroid user 06/23/2022 Scoliosis 06/23/2022 SVT [...] as of this encounter (statuses as of 05/08/2023) Resolved Problems Problem Noted Date Diagnosed Date [...] as of this encounter (statuses as of 05/08/2023) Immunizations Name Administration Dates Next Due HepA [...] Miscellaneous Notes * Telephone Encounter - Aparna Burrell DO - 05/08/2023 11:51 AM EST Signed Prescriptions: Disp Refills Jardiance 10 MG Oral Tablet (Empagliflozin)90 Tab*3 Sig: TAKE 1 TABLET BY MOUTH EVERY MORNING Authorizing Provider: APARNA BURRELL * Telephone Encounter - Nikole Dunne COT - 05/08/2023 11:02 AM ESTPending Prescriptions: Disp Refills Jardiance 10 MG Oral Tablet (Empagliflozin)90 Tab*3 Sig: TAKE 1 TABLET BY MOUTH EVERY MORNING * Telephone Encounter - Nikole Dunne COT - 05/08/2023 11:02 AM EST Did you pend patient's preferred pharmacy and medication before forwarding?yes [facility]acy: [id number] [place] [address] [facility] [place] Pending Prescriptions: Disp Refills Jardiance 10 MG Oral Tablet (Empagliflozi*90 Tab*3 Sig: TAKE 1 TABLET BY MOUTH EVERY MORNING Last Visit: 12/19/2022 (in office), 08/11/2022 (telemedicine) Next Visit: 06/26/2023 If no future appointments scheduled, and last appointment is greater than a year ago, please schedule patient for a follow-up appointment Last date the medication was ordered: 10-17-2022 Is this request for a controlled substance?No Urine Drug Screen: Results for orders placed or performed in visit on 11/17/22 TOXICOLOGY, URINE SCREEN W/ CONFIRMATION Result Value Amphetamine Negative Benzodiazepines Negative Cannabinoids Negative Cocaine Metabolite Negative Fentanyl Negative Hydrocodone / Hydromorphone Negative Methadone Metabolite Negative Morphine / Codeine Negative Oxycodone / Oxymorphone Negative Narrative Cutoff Concentrations: Drug Level Amphetamines [...] Description 05/10/2023 1:20 PM EST Office Visit [facility] [address] [place] [phone] Anahy Grayson MD [address] [place] [address] 05/18/2023 4:00 PM EST [facility] [address] [facility] [place] [address] Cindy Underwood, RN 132 [facility] [place] [address] 06/26/2023 11:30 AM EST Office Visit Cardiology, [facility] 132 [facility] [place] [address] Elizabeth Mccann CRNP 400 [facility] [place] [phone] 08/21/2023 12:30 PM EDT Therapy Neuropsychology [facility] [address] [place] [address] Logan Morales, PhD 200 [place] [address] 09/06/2023 3:20 PM EDT Office Visit Neurology [facility] [address] [place] [address] Aparna Ruano PA-C [address] [place] [address] Scheduled Procedures Name Priority Associated Diagnoses Date/Ti me COLONOSCOPY FLEXIBLE PROXIMAL DIAGNOSTIC Recall Colon cancer screening Health Maintenance Due Date Last Done Comments DISCUSS TOBACCO CESSATION (REFER TO SMARTSET #5210) 1965 COVID-19 Vaccine (#1) 02/09/1969 Alpha-1 Antitrypsin [...] D LEVEL ONCE IN A LIFETIME-USE SMARTSET# 62081 Completed 08/04/2021 GARDASIL-HPV IMMUNIZATION SERIES Aged Out No longer eligible based on patient's age to complete this topic MENINGOCOCCAL (MENACTRA/MENVEO) Aged Out No longer eligible based on patient's age to complete this topic documented as of this encounter Medical Devices Not on filedocumented as of this encounter Visit Diagnoses Diagnosis HFrEF (heart failure with reduced ejection fraction) (HCC)- Primary documented in this encounter Care Teams Resource Specialist Teacher Relationship Specialty Start Date End Date Anahy Grayson MD [address] [place] [address] PCP - General Internal Medicine 01/27/22 documented as of this encounter
--- OUTSIDE RECORDS SUMMARY | 2023-08-13 00:17 | External Medical Summary | Summary of Care ---
Author Name Unknown Organization [facility] Address [address] [place] [address] Phone [phone] Care Team Providers Care Vacation Guide Name Role Phone Anahy Grayson MD Primary Care Provider [phone] Reason for Visit * Reason Onset Date Comments Appointment 05/22/2023 Encounter Details Date Type Department Care Team (Late st Contact Info) Description 05/22/2023 Telephone [facility] [address] [place] [address] Services, Scheduling [address] [place] [address] Appointment (//) Allergies No known active allergiesdocumented as of this encounter (statuses as of 05/22/2023) Medications Medication Sig Dispensed Refills Start Date End Date Status Aspirin 81 MG Oral Tablet Delayed Release Take 1 Tablet by mouth in the morning. 0 Active Spiriva Respimat 2.5 MCG/ACT Inhalation Aerosol Solution (Tiotropium [place] Monohydrate) Inhale by mouth 2 Puffs in [...] Oral Tablet (Crestor)Indication s:Coronary artery disease involving [place] coronary artery of [place] heart without angina pectoris,HFrEF (heart failure with [...] as of this encounter (statuses as of 05/22/2023) Active Problems Problem Noted Date Diagnosed Date [...] as of this encounter (statuses as of 05/22/2023) Resolved Problems Problem Noted Date Diagnosed Date [...] as of this encounter (statuses as of 05/22/2023) Immunizations Name Administration Dates Next Due HepA [...] encounter Miscellaneous Notes * Telephone Encounter - Angelina Almanzar OSA - 05/22/2023 3:00 PM EST Request to schedule a rheumatology appt I called and he cx the one he had in Nov and now cannot gethim in with Dennise or his PA until 09/10@940am and added him to fast pass for any possible sooner appt that comes up documented in this encounter Plan of Treatment Upcoming Encounters Date Type Department Care Team (Late st Contact Info) Description 05/22/2023 4:00 PM EST [facility] 132 [place] [address] Cindy Underwood, RN [address] [place] [address] 06/22/2023 2:30 PM EST [facility] [place] [address] Cindy Underwood, RN [address] [place] [address] 08/21/2023 12:30 PM EDT Therapy Neuropsychology [facility] 200 [place] [address] Logan Morales, PhD 200 [place] [address] 09/06/2023 3:20 PM EDT Office Visit Neurology [facility] 200 [facility] [place] [address] Aparna Ruano PA-C 200 [place] [address] 09/11/2023 9:40 AM EDT Office Visit Rheumatology [address] [place] [address] Jimmy Giang MD [facility] [employer] [place], [place] [address] 09/17/2023 1:40 PM EDT Office Visit [facility] [address] [place] [phone] Anahy Grayson MD [address] [place] [address] Scheduled Procedures Name Priority Associated Diagnoses Date/Ti me COLONOSCOPY FLEXIBLE PROXIMAL DIAGNOSTIC Recall Colon cancer screening Health Maintenance Due Date Last Done Comments DISCUSS TOBACCO CESSATION (REFER TO SMARTSET #8876) 1965 COVID-19 Vaccine (#1) 02/09/1969 Alpha-1 Antitrypsin [...] D LEVEL ONCE IN A LIFETIME-USE SMARTSET# 61218 Completed 08/04/2021 GARDASIL-HPV IMMUNIZATION SERIES Aged Out No longer eligible based on patient's age to complete this topic MENINGOCOCCAL (MENACTRA/MENVEO) Aged Out No longer eligible based on patient's age to complete this topic documented as of this encounter Medical Devices Not on filedocumented as of this encounter Care Teams Vacation Guide Relationship Specialty Start Date End Date Anahy Grayson MD [address] [place] [address] PCP - General Internal Medicine 01/27/22 documented as of this encounter
--- OUTSIDE RECORDS SUMMARY | 2023-08-13 00:17 | External Medical Summary | Summary of Care ---
Author Name Unknown Organization [facility] Address [address] [facility] [address] Phone [phone] Care Team Providers Care Sales Recruitment Specialist Name Role Phone Anahy Grayson MD Primary Care Provider Reason for Visit * Reason Onset Date Comments [facility]: Maintenance 05/22/2023 Encounter Details Date Type Department Care Team (Late st Contact Info) Description 05/22/2023 Telephone [facility], [facility] 132 [facility] [place] [address] [facility], Nurse [facility] 132 [place] [address] [facility]: Maintenance Allergies No known active allergiesdocumented as of this encounter (statuses as of 05/22/2023) Medications Medication Sig Dispensed Refills Start Date End Date Status Aspirin 81 MG Oral Tablet Delayed Release Take 1 Tablet by mouth in the morning. 0 Active Spiriva Respimat 2.5 MCG/ACT Inhalation Aerosol Solution (Tiotropium [place] Monohydrate) Inhale by mouth 2 Puffs in [...] Oral Tablet (Crestor)Indication s:Coronary artery disease involving inupiat coronary artery of inupiat heart without angina pectoris,HFrEF (heart failure with reduced ejection fraction) ([facility]),HTN, goal below 140/90,Dyslipidemia , [...] positive rheumatoid factor ([facility]) Take one to two tablets [...] Tablet (Revatio)Indication s:Raynaud's disease with gangrene ([facility]) [...] with positive rheumatoid factor ([facility]),DDD (degenerative disc disease), lumbar,Thoracic compression fracture, closed, initial encounter ([facility]),Old tear of lateral meniscus [...] dose Rx Exacerbation plan o 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 Chart reviewed and there amber this afternoon. He asked if Cindy could call him. TT to TOYA White. RN GAH special projects manager [phone] documented in this encounter Plan of Treatment Upcoming Encounters Date Type Department Care Team (Late st Contact Info) Description 05/22/2023 4:00 PM EST Home Visit [facility], [facility] 132 [facility] [place] [address] Cindy Underwood RN [address] [place] [address] 08/21/2023 12:30 PM EDT Therapy Neuropsychology [facility] [place] 200 [facility] [place] [address] Logan Morales, PhD 200 [facility] [place] [address] 09/06/2023 3:20 PM EDT Office Visit Neurology [facility] [place] 200 [facility] [place] [address] Aparna Ruano PA-C 200 [facility] [place] [address] 09/17/2023 1:40 PM EDT Office Visit [facility] [address] [place] [phone] Anahy Grayson MD [address] [place] [address] Scheduled Procedures Name Priority Associated Diagnoses Date/Ti me COLONOSCOPY FLEXIBLE PROXIMAL DIAGNOSTIC Recall Colon cancer screening Health Maintenance Due Date Last Done Comments DISCUSS TOBACCO CESSATION (REFER TO SMARTSET #9541) 1965 COVID-19 Vaccine (#1) 02/09/1969 Alpha-1 Antitrypsin [...] D LEVEL ONCE IN A LIFETIME-USE SMARTSET# 05786 Completed 08/04/2021 GARDASIL-HPV IMMUNIZATION SERIES Aged Out No longer eligible based on patient's age to complete this topic MENINGOCOCCAL (MENACTRA/MENVEO) Aged Out No longer eligible based on patient's age to complete this topic documented as of this encounter Medical Devices Not on filedocumented as of this encounter Care Teams Sales Recruitment Specialist Relationship Specialty Start Date End Date An[facility]y Gr[facility] [phone] PCP - General Internal Medicine 01/27/22 documented as of this encounter
--- OUTSIDE RECORDS SUMMARY | 2023-08-13 00:18 | External Medical Summary | Summary of Care ---
Author Name Unknown Organization [facility] Address [address] [place] [address] Phone [phone] Care Team Providers Care Cardiac Rn Name Role Phone Anahy Grayson MD Primary Care Provider [phone] Encounter Details Date Type Department Care Team (Late st Contact Info) Description 04/30/2023 Telephone [facility] [address] [place] [address] Anahy Grayson MD [address] [place] [address] Allergies No known active allergiesdocumented as of this encounter (statuses as of 04/30/2023) Medications Medication Sig Dispensed Refills Start Date End Date Status Aspirin 81 MG Oral Tablet Delayed Release Take 1 Tablet by mouth in the morning. 0 Active Spiriva Respimat 2.5 MCG/ACT Inhalation Aerosol Solution (Tiotropium [place] Monohydrate) Inhale by mouth 2 Puffs in the morning. 4 g 11 03/21/2022 Active Additional Information Patient not taking.Reported on 04/20/2023 Furosemide 20 MG Oral Tablet (Lasix)Indications: HFrEF (heart failure with reduced ejection fraction) ([facility]) Take 2 Tablets by mouth in the morning. 180 Tablet 3 05/30/2022 Active Lidocaine 5 % External Patch (Lidoderm) [...] Oral Tablet (Crestor)Indication s:Coronary artery disease involving [place] coronary artery of [place] heart without angina pectoris,HFrEF (heart failure with [...] 04/20/2023 Sarilumab 200 MG/1.14ML Subcutaneous Solution Auto-injector ([employer])Indication s:Rheumatoid arthritis involving multiple sites with positive [...] by mouth in the morning. 0 Active Nirmatrelvir&Ritona vir 150/100 10 x 150 MG & 10 x 100MG Oral Tablet Therapy Pack (Paxlovid (150/100)) Take 1 pink tablet of Nirmatrelvir and 1 white tablet of Ritonavir two times a day by mouth. 20 Tablet 0 04/30/2023 Active documented as of this encounter (statuses as of 04/30/2023) Active Problems Problem Noted Date Diagnosed Date [...] as of this encounter (statuses as of 04/30/2023) Resolved Problems Problem Noted Date Diagnosed Date [...] as of this encounter (statuses as of 04/30/2023) Immunizations Name Administration Dates Next Due HepA [...] encounter Miscellaneous Notes * Telephone Encounter - Domitila Dover LPN - 04/30/2023 1:43 PM EST Patient aware and verbalized understanding * Telephone Encounter - Anahy Grayson MD - 04/30/2023 1:12 PM EST Sent out margret * Telephone Encounter - Angela Ramos OSA - 04/30/2023 10:55 AM EST Reason for patient call/what is patient requesting? Paxlovid Have you had symptoms of COVID-19 such as fever, sore throat, shortness of breath? COVID19 Symptoms:yes Date of first symptoms: 04/28 Date of last fever: no fever Date of last symptoms: still has cough; congestion Have you had close exposure to someone who tested positive for COVID-19? COVID19 Exposure: no Date of first exposure: Date of last exposure: Testing location requested: Positive COVID 19 test in the past 90 days? Clinic Test no Home test yes Did you have 2 vaccines no Boosters no Call Details are Required documented in this encounter Plan of Treatment Upcoming Encounters Date Type Department Care Team (Late st Contact Info) Description 05/04/2023 10:30 AM EST Scheduled Telephone [facility] [place] 132 [place] [address] [facility] T[facility] 132 [place] [address] 05/07/2023 1:20 PM EST Office Visit [facility] [address] [place] [facility] [place] [phone] Anahy Grayson MD [address] [place] [address] 05/18/2023 4:00 PM EST [facility] 132 [place] [address] Cindy Underwood, RN 132 [facility] [place] [address] 06/26/2023 11:30 AM EST Office Visit Cardiology, [facility] 132 [facility] [place] [address] Elizabeth Mccann CRNP [address] [place], [place] [address] [phone] 08/21/2023 12:30 PM EDT Therapy Neuropsychology [facility] 200 [facility] [place] [address] Logan Morales, PhD [address] [facility] [place] [address] 09/06/2023 3:20 PM EDT Office Visit Neurology [facility] 200 [facility] [place] [address] Aparna Ruano PA-C 200 [facility] [place] [address] Scheduled Procedures Name Priority Associated Diagnoses Date/Ti me COLONOSCOPY FLEXIBLE PROXIMAL DIAGNOSTIC Recall Colon cancer screening Health Maintenance Due Date Last Done Comments DISCUSS TOBACCO CESSATION (REFER TO SMARTSET #7996) 1965 COVID-19 Vaccine (#1) 02/09/1969 Alpha-1 Antitrypsin [...] D LEVEL ONCE IN A LIFETIME-USE SMARTSET# 33427 Completed 08/04/2021 GARDASIL-HPV IMMUNIZATION SERIES Aged Out No longer eligible based on patient's age to complete this topic MENINGOCOCCAL (MENACTRA/MENVEO) Aged Out No longer eligible based on patient's age to complete this topic documented as of this encounter Medical Devices Not on filedocumented as of this encounter Care Teams Cardiac Rn Relationship Specialty Start Date End Date Anahy Grayson MD [address] [place] [address] PCP - General Internal Medicine 01/27/22 documented as of this encounter
--- OUTSIDE RECORDS SUMMARY | 2023-08-13 00:18 | External Medical Summary | Summary of Care ---
Author Name Unknown Organization [facility] Address [address] [place] [address] Phone [phone] Care Team Providers Care Color Worker Name Role Phone Anahy Grayson MD Primary Care Provider [phone] Encounter Details Date Type Department Care Team (Late st Contact Info) Description 04/30/2023 Telephone [facility] [address] [place] [address] Anahy Grayson MD [address] [place] [address] Allergies No known active allergiesdocumented as of this encounter (statuses as of 04/30/2023) Medications Medication Sig Dispensed Refills Start Date End Date Status Aspirin 81 MG Oral Tablet Delayed Release Take 1 Tablet by mouth in the morning. 0 Active Spiriva Respimat 2.5 MCG/ACT Inhalation Aerosol Solution (Tiotropium [place] Monohydrate) Inhale by mouth 2 Puffs in the morning. 4 g 11 03/21/2022 Active Additional Information Patient not taking.Reported on 04/20/2023 Furosemide 20 MG Oral Tablet (Lasix)Indications: HFrEF (heart failure with reduced ejection fraction) ([facility]) Take 2 Tablets by [...] Oral Tablet (Crestor)Indication s:Coronary artery disease involving [place] coronary artery [...] 04/20/2023 Sarilumab 200 MG/1.14ML Subcutaneous Solution Auto-injector (WhoWannazaTantaline)Indication s:Rheumatoid arthritis involving multiple sites with positive [...] - 04/30/2023 1:12 PM EST Sent out [place] * Telephone Encounter - Angela Ramos OSA [...] 10:30 AM EST Scheduled Telephone [facility] [place], [facility] 132 [facility] [place] [address] [facility] 132 [facility] [place] [address] 05/07/2023 1:20 PM EST Office Visit [facility] [address] [place] [address] Anahy Grayson MD [address] [place] [address] 05/18/2023 4:00 PM EST [facility] Visit [facility] 132 [facility] [place] [address] Cindy Underwood, RN 132 [facility] [place] [address] 06/26/2023 11:30 AM EST Office Visit Cardiology, [facility] 132 [facility] [place] [address] Elizabeth Mccann CRNP [address] [place] [phone] 08/21/2023 12:30 PM EDT Therapy Neuropsychology [facility] [place] 200 [facility] [place] [address] Logan Morales, PhD 200 [facility] [place] [address] 09/06/2023 3:20 PM EDT Office Visit Neurology [facility] [place] 200 [facility] [place] [address] Aparna Ruano PA-C 200 [facility] [place] [address] Scheduled Procedures Name Priority Associated Diagnoses Date/Ti me COLONOSCOPY FLEXIBLE PROXIMAL DIAGNOSTIC Recall Colon cancer screening Health Maintenance Due Date Last Done Comments DISCUSS TOBACCO CESSATION (REFER TO SMARTSET #4991) 1965 COVID-19 Vaccine (#1) 02/09/1969 Alpha-1 Antitrypsin [...] D LEVEL ONCE IN A LIFETIME-USE SMARTSET# 50690 Completed 08/04/2021 GARDASIL-HPV IMMUNIZATION SERIES Aged Out No longer eligible based on patient's age to complete this topic MENINGOCOCCAL (MENACTRA/MENVEO) Aged Out No longer eligible based on patient's age to complete this topic documented as of this encounter Medical Devices Not on filedocumented as of this encounter Care Teams Color Worker Relationship Specialty Start Date End Date Anahy Grayson MD [address] [place] [address] PCP - General Internal Medicine 01/27/22 documented as of this encounter
--- OUTSIDE RECORDS SUMMARY | 2023-08-13 00:18 | External Medical Summary | Summary of Care ---
Author Name Unknown Organization [facility] Address [address] [place] [address] Phone [phone] Care Team Providers Care Pre Sales Architect Name Role Phone Anahy Graysno MD Primary Care Provider [phone] Reason for Visit * Reason Onset Date Comments Medication Refill 04/26/2023 Encounter Details Date Type Department Care Team (Late st Contact Info) Description 04/26/2023 Refill Cardiology, [facility] [address] [facility] [place] [address] Elizabeth Johnson CRNP [address] [place] [facility] [address] HFrEF (heart failure with reduced ejection fraction) ([facility]) Allergies No known active allergiesdocumented as of this encounter (statuses as of 04/30/2023) Medications Medication Sig Dispensed Refills Start Date End Date Status Aspirin 81 MG Oral Tablet Delayed Release Take 1 Tablet by mouth in the morning. 0 Active Spiriva Respimat 2.5 MCG/ACT Inhalation Aerosol Solution (Tiotropium [place] Monohydrate) Inhale by mouth 2 Puffs in [...] Oral Tablet (Crestor)Indicatio ns:Coronary artery disease involving k[place] coronary artery of kiana heart without angina pectoris,HFrEF (heart failure with reduced ejection fraction) ([facility]),HTN, goal below 140/90,Dyslipidemi a, goal LDL below [...] 04/20/2023 Sarilumab 200 MG/1.14ML Subcutaneous Solution Auto-injector (iBoxPayzara)Indicatio ns:Rheumatoid arthritis involving multiple sites with positive rheumatoid factor (HCC) Inject 1.14 mL under the skin every 14 days. 2.28 mL 11 03/05/2023 Active Omeprazole 40 MG Oral Capsule Delayed Release (PriLOSEC) Take 1 Capsule by mouth in the morning. 1 hour before the first meal of the day.. 90 Capsule 3 03/15/2023 Active HYDROcodone-Acetam inophen 10-325 MG Oral Tablet Take 1 Tablet by mouth every 6 hours as needed for Pain, Severe. 90 Tablet 0 03/17/2023 Active Sildenafil Citrate 20 MG Oral Tablet (Revatio)Indicatio ns:Raynaud's disease with gangrene ([facility] [...] :HFrEF (heart failure with reduced ejection fraction) (HCC) Take 2 Tablets by mouth in the morning. 180 Tablet 3 04/30/2023 Active Furosemide 20 MG Oral Tablet (Lasix)Indications :HFrEF (heart failure with reduced ejection fraction) ([facility]) Take 2 Tablets by mouth in the morning. 180 Tablet 3 05/30/2022 3 Discontinue d(Refill) documented as of this encounter [...] Telephone Encounter - Aparna Burrell DO - 04/30/2023 11:18 PM EST Signed Prescriptions: Disp Refills Furosemide 20 MG Oral Tablet (Lasix) 180 Ta*3 Sig: Take 2 Tablets by mouth in the morning. Authorizing Provider: APARNA BURRELL * Telephone Encounter - Nikole Dunne COT - 04/27/2023 8:31 AM ESTPending Prescriptions: Disp Refills Furosemide 20 MG Oral Tablet (Lasix) 180 Ta*3 Sig: Take 2 Tablets by mouth in the morning. * Telephone Encounter - Nikole Dunne COT - 04/27/2023 8:31 AM EST Did you pend patient's preferred pharmacy and medication before forwarding?yes [id number] [address] [facility] Pending Prescriptions: Disp Refills Furosemide 20 MG Oral Tablet (Lasix) 180 Ta*3 Sig: Take 2 Tablets by mouth in the morning. Last Visit: 12/19/2022 (in office), 08/11/2022 (telemedicine) Next Visit: 06/26/2023 If no future appointments scheduled, and last appointment is greater than a year ago, please schedule patient for a follow-up appointment Last date the medication was ordered: 05-30-2022 Is this request for a controlled substance?No [...] Description 05/04/2023 10:30 AM EST Scheduled Telephone [facility] 132 [facility] [place] [address] [facility] Nurse Triage [address] [place] [address] 05/07/2023 1:20 PM EST Office Visit [facility] [address] [facility] [place] [address] Anahy Grayson MD [address] [place] [address] 05/18/2023 4:00 PM EST [facility], [facility] 132 [facility] [place] [address] Cindy Underwood, RN 132 [facility] [place] [address] 06/26/2023 11:30 AM EST Office Visit Cardiology, [facility] 132 [facility] [place] [address] Elizabeth Mccann CRNP [address] [place] [phone] 08/21/2023 12:30 PM EDT Therapy Neuropsychology [facility] [address] [place] [address] Logan Morales, PhD 200 [facility] [place] [address] 09/06/2023 3:20 PM EDT Office Visit Neurology [facility] 200 [facility] [place] [address] Aparna Ruano PA-C 200 [facility] [place] [address] Scheduled Procedures Name Priority Associated Diagnoses Date/Ti [...] D LEVEL ONCE IN A LIFETIME-USE SMARTSET# 50399 Completed 08/04/2021 GARDASIL-HPV IMMUNIZATION SERIES Aged Out [...] (HCC) documented in this encounter Care Teams Pre Sales Architect Relationship Specialty Start Date End Date Anahy Grayson MD [address] [place] [address] PCP - General Internal Medicine 01/27/22 documented as of this encounter
--- OUTSIDE RECORDS SUMMARY | 2023-08-13 00:18 | External Medical Summary | Summary of Care ---
Author Name Unknown Organization [facility] Address [address] [place] [facility] [place] [facility] [address] Phone [phone] Care Team Providers Care Diet Consultant Name Role Phone Anahy Grayson MD Primary Care Provider [phone] Reason for Visit * Reason Onset Date Comments [facility]: Maintenance 04/25/2023 Encounter Details Date Type Department Care Team (Late st Contact Info) Description 04/25/2023 10:00 AM EST Scheduled Telephone [facility], [facility] 132 [facility] [place] [address] [facility] Nurse Triage 132 [facility] [place] [address] Allergies No known active allergiesdocumented as of this encounter (statuses as of 04/28/2023) Medications Medication Sig Dispensed Refills Start Date End Date Status Aspirin 81 MG Oral Tablet Delayed Release Take 1 Tablet by mouth in the morning. 0 Active Spiriva Respimat 2.5 MCG/ACT Inhalation Aerosol Solution (Tiotropium [place] Monohydrate) Inhale by mouth 2 Puffs in [...] per day.. 180 Tablet 3 09/19/2022 Active Empagliflozin 10 MG Oral Tablet (Jardiance) Take 1 Tablet by mouth in the morning. 30 Tablet 10/17/2022 Active Spironolactone 25 MG Oral Tablet (Aldactone) Take 0.5 Tablets by mouth in the morning. 15 Tablet 10/17/2022 Active Rosuvastatin Calcium 5 MG Oral Tablet (Crestor)Indication s:Coronary artery disease involving [place] coronary artery of [place] heart without angina pectoris,HFrEF (heart failure with [...] 04/20/2023 Sarilumab 200 MG/1.14ML Subcutaneous Solution Auto-injector (One Season)Indication s:Rheumatoid arthritis involving multiple sites with positive [...] by mouth in the morning. 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 Scoliosis 06/23/2022 SVT [...] as of this encounter (statuses as of 04/28/2023) Resolved Problems Problem Noted Date Diagnosed Date [...] as of this encounter (statuses as of 04/28/2023) Immunizations Name Administration Dates Next Due HepA Inact/HepB Recomb>=18yrs old 08/26/2018 Hepatitis B, 20+ yrs 05/27/2019,10/10/2018 Pneumococcal Conjugate Vacc, 13 Valent (Prevnar) 03/21/2019 Pneumococcal Polysaccharide PPV23 (Pneumovax) 02/12/2020 SEASONAL INFLUENZA, PF, 6 M & Above, IM , (FLULAVAL or FLUZONE) 03/03/2021,02/12/2020,03/21/2019,1208/2017,03/15/2017 04/30/2019 TD - Tetanus/Diptheria (ADULT) 03/28/2007 [...] Telephone Encounter - Lizette Christianson RN - 04/25/2023 2:37 PM EST [facility] Monthly Visit Date: 04/25/2023 Time: 2:38 PM Name: Harrison Morgan : 1965 Follow up call to patient, no answer. LMOM requesting call back. 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 [facility] documented in this encounter Plan of Treatment Upcoming Encounters Date Type Department Care Team (Late st Contact Info) Description 04/30/2023 1:00 PM EST Office Visit [facility] [address] [facility], [place] [phone] Anahy Grayson MD [address] [place] [facility] [address] 05/04/2023 10:30 AM EST Scheduled Telephone [facility], [facility] 132 [facility] [place] [address] [facility] Nurse Triage 132 [facility] [place] [address] 05/18/2023 4:00 PM EST Home Visit [facility], [facility] 132 [facility] [place] [address] Cindy Underwood RN 132 [place] [address] 06/26/2023 11:30 AM EST Office Visit Cardiology, [facility] 132 [facility] [place] [address] Elizabeth Mccann CRNP [address] [place] [address] [place] [phone] 08/21/2023 12:30 PM EDT Therapy Neuropsychology [facility] [address] [place] [address] Logan Morales, PhD [address] [place] [address] 09/06/2023 3:20 PM EDT Office Visit Neurology [facility] [place] [address] [place] [address] Aparna Ruano PA-C 200 [facility] [place] [address] Scheduled Procedures Name Priority Associated Diagnoses Date/Ti me COLONOSCOPY FLEXIBLE PROXIMAL DIAGNOSTIC Recall Colon cancer screening Health Maintenance Due Date Last Done Comments DISCUSS TOBACCO CESSATION (REFER TO SMARTSET #4377) 1965 COVID-19 Vaccine (#1) 02/09/1969 Alpha-1 Antitrypsin [...] D LEVEL ONCE IN A LIFETIME-USE SMARTSET# 87615 Completed 08/04/2021 GARDASIL-HPV IMMUNIZATION SERIES Aged Out No longer eligible based on patient's age to complete this topic MENINGOCOCCAL (MENACTRA/MENVEO) Aged Out No longer eligible based on patient's age to complete this topic documented as of this encounter Medical Devices Not on filedocumented as of this encounter Care Teams Diet Consultant Relationship Specialty Start Date End Date Anahy Grayson MD [address] [place] [address] PCP - General Internal Medicine 01/27/22 documented as of this encounter
--- OUTSIDE RECORDS SUMMARY | 2023-08-13 00:18 | External Medical Summary | Summary of Care ---
Author Name Unknown Organization [facility] Address [address] [place] [address] Phone [phone] Care Team Providers Care Watch Leader Name Role Phone Anahy Grayson MD Primary Care Provider [phone] Encounter Details Date Type Department Care Team (Late st Contact Info) Description 04/30/2023 Telephone [facility] [address] [place] [address] Anahy Grayson MD [address] [place] [address] Allergies No known active allergiesdocumented as of this encounter (statuses as of 04/30/2023) Medications Medication Sig Dispensed Refills Start Date End Date Status Aspirin 81 MG Oral Tablet Delayed Release Take 1 Tablet by mouth in the morning. 0 Active Spiriva Respimat 2.5 MCG/ACT Inhalation Aerosol Solution (Tiotropium [place] Monohydrate) Inhale by mouth 2 Puffs in the morning. 4 g 11 2 Active Additional Information Patient not taking.Reported on 04/20/2023 Furosemide 20 MG Oral Tablet (Lasix)Indication s:HFrEF (heart failure with reduced ejection fraction) ([facility]) Take 2 Tablets by mouth in the morning. 180 Tablet 3 3 Active Lidocaine 5 % External Patch (Lidoderm) Place 1 Patch topically on the skin daily. 30 Patch 1 3 Active Additional Information Patient not taking.Reported on [...] 3 Active Eliquis 5 MG Oral Tablet (Apixaban)Indicat [...] per day.. 180 Tablet 3 3 Active Empagliflozin 10 MG Oral Tablet (Jardiance) Take 1 Tablet by mouth in the morning. 30 Tablet 5 3 Active Spironolactone 25 MG Oral Tablet (Aldactone) Take 0.5 Tablets by mouth in the morning. 15 Tablet 5 3 Active Rosuvastatin Calcium 5 MG Oral Tablet (Crestor)Indicati ons:Coronary artery disease involving ey[place] coronary artery of eyak heart without angina pectoris,HFrEF (heart failure with [...] 3 Active predniSONE 5 MG Oral Tablet (Deltasone)Indica [...] 04/20/2023 Sarilumab 200 MG/1.14ML Subcutaneous Solution Auto-injector (Papertonzara)Indicati ons:Rheumatoid arthritis involving multiple sites with positive rheumatoid factor (HCC) Inject 1.14 mL under the skin every 14 days. 2.28 mL 11 3 Active Omeprazole 40 MG Oral Capsule Delayed Release (PriLOSEC) Take 1 Capsule by mouth in the morning. 1 hour before the first meal of the day.. 90 Capsule 3 3 Active HYDROcodone-Aceta minophen 10-325 MG Oral Tablet Take 1 Tablet by mouth every 6 hours as needed for Pain, Severe. 90 Tablet 0 3 Active Sildenafil Citrate 20 MG Oral Tablet (Revatio)Indicati ons:Raynaud's disease with gangrene (HCC) TAKE ONE TABLET BY MOUTH EVERY MORNING , 1 TABLET AT NOON AND 2 TABLETS BEFORE BEDTIME 90 Tablet 2 3 Active HYDROcodone-Aceta minophen 10-325 MG Oral Tablet Take 1 Tablet by mouth every 6 hours as needed for Pain, Severe. 90 Tablet 0 3 Active sulfaSALAzine 500 MG Oral Tablet Delayed Release (Azulfidine Entab) Take 1 Tablet by mouth in the morning. 0 Active Molnupiravir 200 MG Oral Capsule Take 4 Capsules by mouth in the morning and 4 Capsules before bedtime. 40 Capsule 0 3 Active Nirmatrelvir&Jose navir 150/100 10 x 150 MG & 10 x 100MG Oral Tablet Therapy Pack (Paxlovid (150/100)) Take 1 pink tablet of Nirmatrelvir and 1 white tablet of Ritonavir two times a day by mouth. 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 Scoliosis [...] encounter Miscellaneous Notes * Addendum Note - Anahy Grayson MD - 04/30/2023 4:15 PM ESTAddended by: ANAHY GRAYSON on: 04/30/2023 04:15 PM Modules accepted: Orders * Telephone Encounter - Anahy rGayson MD - 04/30/2023 4:14 PM EST Sent out * Telephone Encounter - Rosie Blackman LPN - 04/30/2023 3:54 PM EST [facility] calling stating that pt has several medications that interact with Paxlovid, he is suggesting sending out Molnupiravir instead * Telephone Encounter - Domitila Dover LPN - 04/30/2023 1:43 PM EST Patient aware and verbalized understanding * Telephone Encounter - Anahy Grayson MD - 04/30/2023 1:12 PM EST Sent out paxlovid * Telephone Encounter - Angela Ramos OSA [...] AM EST Scheduled Telephone [facility], [facility] [address] [facility] Nurse Triage 132 [facility] [address] 05/07/2023 1:20 PM EST Office Visit [facility] [address] [place] [phone] Anahy Grayson MD [address] [place] [address] 05/18/2023 4:00 PM EST [facility], [facility] 132 [facility] [place] [address] Cindy Underwood RN 132 [place] [address] 06/26/2023 11:30 AM EST Office Visit Cardiology, [facility] 132 [facility] [place] [address] Elizabeth Mccann CRNP [address] [place] [address] [place] [address] 08/21/2023 12:30 PM EDT Therapy Neuropsychology [facility] [address] [place] [address] Logan Morales, PhD 200 [facility] [place] [address] 09/06/2023 3:20 PM EDT Office Visit [facility] [address] [place] [address] Aparna Ruano PA-C [address] [place] [address] Scheduled Procedures Name Priority Associated Diagnoses Date/Ti me COLONOSCOPY FLEXIBLE PROXIMAL DIAGNOSTIC Recall Colon cancer screening Health Maintenance Due Date Last Done Comments DISCUSS TOBACCO CESSATION (REFER TO SMARTSET #2871) 1965 COVID-19 Vaccine (#1) 02/09/1969 Alpha-1 Antitrypsin [...] D LEVEL ONCE IN A LIFETIME-USE SMARTSET# 96320 Completed 08/04/2021 GARDASIL-HPV IMMUNIZATION SERIES Aged Out No longer eligible based on patient's age to complete this topic MENINGOCOCCAL (MENACTRA/MENVEO) Aged Out No longer eligible based on patient's age to complete this topic documented as of this encounter Medical Devices Not on filedocumented as of this encounter Care Teams Watch Leader Relationship Specialty Start Date End Date Anahy Grayson MD [address] [place] [address] PCP - General Internal Medicine 01/27/22 documented as of this encounter
--- OUTSIDE RECORDS SUMMARY | 2023-08-13 00:18 | External Medical Summary | Summary of Care ---
Author Name Unknown Organization [facility] Address [address] [place] [address] Phone [phone] Care Team Providers Care Clay Transporter Name Role Phone Anahy Grayson MD Primary Care Provider [phone] Encounter Details Date Type Department Care Team (Late st Contact Info) Description 04/30/2023 Telephone [facility] [address] [place] [address] Anahy Grayson MD [address] [place] [address] Allergies No known active allergiesdocumented as of this encounter (statuses as of 04/30/2023) Medications Medication Sig Dispensed Refills Start Date End Date Status Aspirin 81 MG Oral Tablet Delayed Release Take 1 Tablet by mouth in the morning. 0 Active Spiriva Respimat 2.5 MCG/ACT Inhalation Aerosol Solution (Tiotropium [place] Monohydrate) Inhale by mouth 2 Puffs in [...] Oral Tablet (Crestor)Indication s:Coronary artery disease involving [place] coronary artery of [place] heart without angina pectoris,HFrEF (heart failure with [...] 04/20/2023 Sarilumab 200 MG/1.14ML Subcutaneous Solution Auto-injector (ApozyzaSpredfashion)Indication s:Rheumatoid arthritis involving multiple sites with positive [...] dose Rx Exacerbation plan o Chest Xray snf systemic steroid user 06/23/2022 Scoliosis 06/23/2022 SVT [...] encounter Miscellaneous Notes * Telephone Encounter - Rosie Blackman LPN [...] Reason for patient call/what is patient requesting? Dieter Have you had symptoms of COVID-19 such [...] AM EST Scheduled Telephone [facility], [facility] [address] [place] [address] [facility] Nurse Triage [address] [place] [address] 05/07/2023 1:20 PM EST [address] [phone] Anahy Grayson MD [address] [place] [address] 05/18/2023 4:00 PM EST [facility] Visit [facility], [facility] 132 [facility] [place] [address] Cindy Underwood RN 132 [facility] [place] [address] 06/26/2023 11:30 AM EST Office Visit Cardiology, [facility] 132 [facility] [place] [address] Elizabeth Mccann CRNP [address] [place] [phone] 08/21/2023 12:30 PM EDT Therapy Neuropsychology [facility] 200 [facility] [place] [address] Logan Morales, PhD 200 [place] [address] 09/06/2023 3:20 PM EDT Office Visit Neurology [facility] 200 [place] [address] Aparna Ruano PA-C 200 [place] [address] Scheduled Procedures Name Priority Associated Diagnoses Date/Ti me COLONOSCOPY FLEXIBLE PROXIMAL DIAGNOSTIC Recall Colon cancer screening Health Maintenance Due Date Last Done Comments DISCUSS TOBACCO CESSATION (REFER TO SMARTSET #8005) 1965 COVID-19 Vaccine (#1) 02/09/1969 Alpha-1 Antitrypsin [...] D LEVEL ONCE IN A LIFETIME-USE SMARTSET# 12325 Completed 08/04/2021 GARDASIL-HPV IMMUNIZATION SERIES Aged Out No longer eligible based on patient's age to complete this topic MENINGOCOCCAL (MENACTRA/MENVEO) Aged Out No longer eligible based on patient's age to complete this topic documented as of this encounter Medical Devices Not on filedocumented as of this encounter Care Teams Clay Transporter Relationship Specialty Start Date End Date Anahy Grayson MD [address] [place], [place] [phone] PCP - General Internal Medicine 01/27/22 documented as of this encounter
--- OUTSIDE RECORDS SUMMARY | 2023-08-13 00:19 | External Medical Summary | Summary of Care ---
Author Name Unknown Organization [facility] [address] [facility] [address] Phone [phone] Care Team Providers Care Crusher Loader Operator Name Role Phone Anahy Grayson MD Primary Care Provider [phone] Reason for Visit * Reason Onset Date Comments [facility]: Maintenance 04/20/2023 Encounter Details Date Type Department Care Team (Late st Contact Info) Description 04/20/2023 Telephone [facility] [address] [place] [address] Cindy Underwood RN [address] [place] [address] [facility]: Maintenance Allergies No known active allergiesdocumented as of this encounter (statuses as of 04/21/2023) Medications Medication Sig Dispensed Refills Start Date End Date Status Aspirin 81 MG Oral Tablet Delayed Release Take 1 Tablet by mouth in the morning. 0 Active Spiriva Respimat 2.5 MCG/ACT Inhalation Aerosol Solution (Tiotropium [place] Monohydrate) Inhale by mouth 2 Puffs in the morning. 4 g 11 03/21/2022 Active Additional Information Patient not taking.Reported on 04/20/2023 Furosemide 20 MG Oral Tablet (Lasix)Indications: HFrEF (heart failure with reduced ejection fraction) ([facility]) Take 2 Tablets by mouth [...] in the morning. 30 Tablet 5 10/17/2022 Active Spironolactone 25 MG Oral Tablet (Aldactone) Take 0.5 Tablets by mouth in the morning. 15 Tablet 5 10/17/2022 Active Rosuvastatin Calcium 5 MG Oral Tablet (Crestor)Indication s:Coronary artery disease involving [place] coronary artery of [place] heart without angina pectoris,HFrEF (heart failure with [...] 04/20/2023 Sarilumab 200 MG/1.14ML Subcutaneous Solution Auto-injector (InView TechnologyzaMoni)Indication s:Rheumatoid arthritis involving multiple sites with positive [...] as of this encounter (statuses as of 04/21/2023) Active Problems Problem Noted Date Diagnosed Date [...] as of this encounter (statuses as of 04/21/2023) Resolved Problems Problem Noted Date Diagnosed Date [...] as of this encounter (statuses as of 04/21/2023) Immunizations Name Administration Dates Next Due HepA Inact/HepB Recomb>=18yrs old 08/26/2018 Hepatitis B, 20+ yrs 05/27/2019,10/10/2018 Pneumococcal Conjugate Vacc, 13 Valent (Prevnar) 03/21/2019 Pneumococcal Polysaccharide PPV23 (Pneumovax) 02/12/2020 SEASONAL INFLUENZA, PF, 6 M & Above, IM , (FLULAVAL or FLUZONE) 03/03/2021,02/12/2020,03/21/2019,12/08/2017,03/15/2017 04/30/2019 TD - Tetanus/Diptheria (ADULT) 03/28/2007 [...] Telephone Encounter - Anahy Grayson MD - 04/21/2023 12:06 PM EST Addressed on the other encounter * Telephone Encounter - Cindy Underwood RN - 04/20/2023 3:11 PM EST Good afternoon, Pt reports he has been having issues for the past 6 months of constipation alternating with diarrhea He states he has abdominal cramping and also reports sometimes pain goes from his rectum to abdomenand it is very severe at times Denies black stools or bright red blood He reports it is not every day but sporadic, sometimes a few times a month it has been happening He reports he was supposed to have an endoscopy but never had it done and he is unsure why it was ordered Do you feel he should be referred back to GI? Or should he schedule an appointment with you first? Please advise. Thank you documented in this encounter Plan of Treatment Upcoming Encounters Date Type Department Care Team (Late st Contact Info) Description 04/24/2023 12:00 PM EST Scheduled Telephone [facility] [place], [facility] [address] [place] [address] [facility] Nurse Triage [address] [place] [address] 04/24/2023 3:00 PM EST Imaging Radiology [address] [place] [address] 04/24/2023 3:15 PM EST Imaging Radiology [address] [place] [address] 05/18/2023 4:00 PM EST [facility] Visit [facility] [address] [place] [address] Cindy Underwood RN [address] [place] [address] 06/26/2023 11:30 AM EST Office Visit Cardiology, [facility] [address] [place] [address] Elizabeth Mccann CRNP [address] [place] [address] [place] [phone] 08/21/2023 12:30 PM EDT Therapy Neuropsychology [facility] 200 [facility] [place] [address] Logan Morales, PhD 200 [facility] [place] [address] 09/06/2023 3:20 PM EDT Office Visit Neurology [facility] [place] 200 [facility] [place] [address] Aparna Ruano PA-C 200 [facility] [place] [address] Scheduled Procedures Name Priority Associated Diagnoses Date/Ti me COLONOSCOPY FLEXIBLE PROXIMAL DIAGNOSTIC Recall Colon cancer screening Health Maintenance Due Date Last Done Comments DISCUSS TOBACCO CESSATION (REFER TO SMARTSET #5703) 1965 COVID-19 Vaccine (#1) 02/09/1969 Alpha-1 Antitrypsin [...] D LEVEL ONCE IN A LIFETIME-USE SMARTSET# 00552 Completed 08/04/2021 GARDASIL-HPV IMMUNIZATION SERIES Aged Out No longer eligible based on patient's age to complete this topic MENINGOCOCCAL (MENACTRA/MENVEO) Aged Out No longer eligible based on patient's age to complete this topic documented as of this encounter Medical Devices Not on filedocumented as of this encounter Care Teams Crusher Loader Operator Relationship Specialty Start Date End Date Anahy Grayson MD [address] [place] [address] PCP - General Internal Medicine 01/27/22 documented as of this encounter
--- OUTSIDE RECORDS SUMMARY | 2023-08-13 00:19 | External Medical Summary | Summary of Care ---
Author Name Unknown Organization [facility] Address [address] [place] [address] Phone [phone] Care Team Providers Care Supervisor Poultry Hatchery Name Role Phone Anahy Grayson MD Primary Care Provider [phone] Reason for Visit * Reason Onset Date Comments Medication Pre-auth 04/23/2023 Encounter Details Date Type Department Care Team (Late st Contact Info) Description 04/23/2023 Telephone [facility] [address] [place] [address] Anahy Grayson MD [address] [place] [address] Medication Pre-auth Allergies No known active allergiesdocumented as of this encounter (statuses as of 04/26/2023) Medications Medication Sig Dispensed Refills Start Date End Date Status Aspirin 81 MG Oral Tablet Delayed Release Take 1 Tablet by mouth in the morning. 0 Active Spiriva Respimat 2.5 MCG/ACT Inhalation Aerosol Solution (Tiotropium [place] Monohydrate) Inhale by mouth 2 Puffs in the morning. 4 g 11 03/21/2022 Active Additional Information Patient not taking.Reported on 04/20/2023 Furosemide 20 MG Oral Tablet (Lasix)Indications: HFrEF (heart failure with reduced ejection fraction) ([facility]) Take 2 Tablets by mouth [...] Oral Tablet (Crestor)Indication s:Coronary artery disease involving [place] coronary artery of [place] heart without angina pectoris,HFrEF (heart failure with [...] 04/20/2023 Sarilumab 200 MG/1.14ML Subcutaneous Solution Auto-injector (Muses LabszaLYFE Kitchen)Indication s:Rheumatoid arthritis involving multiple sites with positive [...] as of this encounter (statuses as of 04/26/2023) Active Problems Problem Noted Date Diagnosed Date [...] dose Rx 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 * Telephone Encounter - Amy Ferguson CPhT - 04/25/2023 6:48 PM EST Patients insurance would like to inform the office that HYDROcodone- Acetaminophen 10-325 MG Oral Tablet is denied because need's to know if pain is moderate to severe, . They will fax this info to the office, please review and resubmit if appropriate. Thank you, Amy Ferguson Mission Systems Engineer [facility] 04/25/2023, 6:49 PM * Telephone Encounter - Renita Balbuena LPN - 04/25/2023 2:24 PM EST Prior auth started through Prompt [place] Andrew # [id number] * Telephone Encounter - Allison Esteban LPN - 04/23/2023 8:45 AM EST Prior Auth for hydrocodone-acetaminophen down through covermymeds, access andrew is [id number] documented in this encounter Plan of Treatment Upcoming Encounters Date Type Department Care Team (Late st Contact Info) Description 05/18/2023 4:00 PM EST [facility] Visit [facility] [address] [place] [address] Cindy Underwood, RN 132 [facility] [place] [address] 06/26/2023 11:30 AM EST Office Visit Cardiology, [facility] [address] [place] [address] Elizabeth Mccann CRNP [address] [place] [phone] 08/21/2023 12:30 PM EDT Therapy Neuropsychology [facility] [place] 200 [facility] [address] Logan Morales, PhD 200 [facility] [place] [facility] [address] 09/06/2023 3:20 PM EDT Office Visit Neurology [facility] [place] 200 [facility] [place] [address] Aparna Ruano PA-C 200 [facility] [place] [address] Scheduled Procedures Name Priority Associated Diagnoses Date/Ti me COLONOSCOPY FLEXIBLE PROXIMAL DIAGNOSTIC Recall Colon cancer screening Health Maintenance Due Date Last Done Comments DISCUSS TOBACCO CESSATION (REFER TO SMARTSET #8619) 1965 COVID-19 Vaccine (#1) 02/09/1969 Alpha-1 Antitrypsin [...] D LEVEL ONCE IN A LIFETIME-USE SMARTSET# [id number] Completed 08/04/2021 GARDASIL-HPV IMMUNIZATION SERIES Aged Out No longer eligible based on patient's age to complete this topic MENINGOCOCCAL (MENACTRA/MENVEO) Aged Out No longer eligible based on patient's age to complete this topic documented as of this encounter Medical Devices Not on filedocumented as of this encounter Care Teams Supervisor Poultry Hatchery Relationship Specialty Start Date End Date Anahy Grayson MD [address] [place] [address] PCP - General Internal Medicine 01/27/22 documented as of this encounter
--- OUTSIDE RECORDS SUMMARY | 2023-08-13 00:19 | External Medical Summary | Summary of Care ---
Author Name Unknown Organization [facility] Address [address] [place] [place] [place] [address] Phone [phone] Care Team Providers Care Cruise Agent Name Role Phone Anahy Grayson MD Primary Care Provider [phone] Reason for Visit * Reason Onset Date Comments [facility]: Maintenance 04/24/2023 Encounter Details Date Type Department Care Team (Late st Contact Info) Description 04/24/2023 12:00 PM EST Scheduled Telephone [facility], [facility] 132 [facility] [place] [address] [facility] Nurse Triage 132 [facility] [place] [address] Allergies No known active allergiesdocumented as of this encounter (statuses as of 04/24/2023) Medications Medication Sig Dispensed Refills Start Date End Date Status Aspirin 81 MG Oral Tablet Delayed Release Take 1 Tablet by mouth in the morning. 0 Active Spiriva Respimat 2.5 MCG/ACT Inhalation Aerosol Solution (Tiotropium [place] Monohydrate) Inhale by mouth 2 Puffs [...] Oral Tablet (Crestor)Indication s:Coronary artery disease involving [place] coronary artery of [place] heart without angina pectoris,HFrEF (heart failure with [...] 04/20/2023 Sarilumab 200 MG/1.14ML Subcutaneous Solution Auto-injector (LeadSift)Indication s:Rheumatoid arthritis involving multiple sites with positive [...] by mouth in the morning. 0 Active Hospital, Clinic, or Other Facility Administered Medication Ordered Dose Route Frequency Start Date End Date Status sodium chloride 0.9 % flush/inj 10 mL 10 mL IV PUSH ONCE 04/24/2023 04/25/2023 Active documented as of this encounter (statuses as of 04/24/2023) Active Problems Problem Noted Date Diagnosed Date [...] as of this encounter (statuses as of 04/24/2023) Resolved Problems Problem Noted Date Diagnosed Date [...] as of this encounter (statuses as of 04/24/2023) Immunizations Name Administration Dates Next Due HepA [...] Miscellaneous Notes * Telephone Encounter - Lizette hCristianson RN - 04/24/2023 4:03 PM EST Phone call to patient, spoke with , states he is currently not home and at an appointment at [facility], agreed to have me call back on . PHILIP CastilloN Fitter Armament [facility] documented in this encounter Plan of Treatment Upcoming Encounters Date Type Department Care Team (Late st Contact Info) Description 04/26/2023 2:30 PM EST Scheduled Telephone [facility], [facility] 132 [facility] [place] [address] [facility] Nurse Triage 132 [facility] [place] [address] 05/18/2023 4:00 PM EST [facility] [place], [facility] [place] [address] Cindy Underwood RN 132 [facility] [place] [address] 06/26/2023 11:30 AM EST Office Visit Cardiology, [facility] 132 [facility] [place] [address] Elizabeth Mccann CRNP [address] [place], [place] [address] [phone] 08/21/2023 12:30 PM EDT Therapy Neuropsychology [facility] [address] [place] [place] [address] Logan Morales, PhD 200 [facility] [place] [address] 09/06/2023 3:20 PM EDT Office Visit Neurology [facility] [place] [address] [place] [address] Aparna Ruano PA-C [address] [place] [place] [address] Scheduled Procedures Name Priority Associated Diagnoses Date/Ti me COLONOSCOPY FLEXIBLE PROXIMAL DIAGNOSTIC Recall Colon cancer screening Health Maintenance Due Date Last Done Comments DISCUSS TOBACCO CESSATION (REFER TO SMARTSET #7218) 1965 COVID-19 Vaccine (#1) 02/09/1969 Alpha-1 Antitrypsin [...] D LEVEL ONCE IN A LIFETIME-USE SMARTSET# 35485 Completed 08/04/2021 GARDASIL-HPV IMMUNIZATION SERIES Aged Out No longer eligible based on patient's age to complete this topic MENINGOCOCCAL (MENACTRA/MENVEO) Aged Out No longer eligible based on patient's age to complete this topic documented as of this encounter Medical Devices Not on filedocumented as of this encounter Care Teams Cruise Agent Relationship Specialty Start Date End Date Anahy Grayson MD [address] [facility] [place] [address] PCP - General Internal Medicine 01/27/22 documented as of this encounter
--- OUTSIDE RECORDS SUMMARY | 2023-08-13 00:19 | External Medical Summary | Summary of Care ---
Author Name Unknown Organization [facility] Address [address] [place] [address] Phone [phone] Care Team Providers Care Mock Up Maker Name Role Phone Anahy Grayson MD Primary Care Provider [phone] Reason for Visit * Reason Onset Date Comments Medication Pre-auth 04/23/2023 Encounter Details Date Type Department Care Team (Late st Contact Info) Description 04/23/2023 Telephone [facility] [address] [place] [address] Anahy Grayson MD [address] [place] [address] Medication Pre-auth Allergies No known active allergiesdocumented as of this encounter (statuses as of 04/26/2023) Medications Medication Sig Dispensed Refills Start Date End Date Status Aspirin 81 MG Oral Tablet Delayed Release Take 1 Tablet by mouth in the morning. 0 Active Spiriva Respimat 2.5 MCG/ACT Inhalation Aerosol Solution (Tiotropium [place] Monohydrate) Inhale by mouth 2 Puffs in the morning. 4 g 11 03/21/2022 Active Additional Information Patient not taking.Reported on 04/20/2023 Furosemide 20 MG Oral Tablet (Lasix)Indications: HFrEF (heart failure with reduced ejection fraction) ([facility]) Take 2 Tablets by mouth in [...] Oral Tablet (Crestor)Indication s:Coronary artery disease involving [place] coronary artery of [place] heart without angina pectoris,HFrEF (heart failure with [...] 04/20/2023 Sarilumab 200 MG/1.14ML Subcutaneous Solution Auto-injector (SolyndrazaSlingbox)Indication s:Rheumatoid arthritis involving multiple sites with positive [...] dose Rx 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 Thanks * Telephone Encounter - Anahy Grayson MD - 04/26/2023 8:03 AM EST Yes his pain is always moderate to severe with uncontrolled RA * Telephone Encounter - Precious Singh MED [...] resubmit if appropriate. Thank you, Amy Ferguson Optical Effects Line Up Person [facility]As[facility] at [facility] healthGlobal [facility] 04/25/2023, 6:49 PM * Telephone Encounter - Renita Balbuena LPN - 04/25/2023 2:24 PM EST Prior auth started through Prompt [place] Andrew # [phone] * Telephone Encounter - Allison Esteban LPN - 04/23/2023 8:45 AM EST Prior Auth for hydrocodone-acetaminophen down through covermymeds, access andrew is [id number] documented in this encounter Plan of Treatment Upcoming Encounters Date Type Department Care Team (Late st Contact Info) Description 05/18/2023 4:00 PM EST Home Visit [facility], [address] [place] [address] Cindy Underwood, RN 132 [facility] [place] [address] 06/26/2023 11:30 AM EST Office Visit Cardiology, [facility] 132 [facility] [place] [address] Elizabeth Mccann CRNP [address] [place], [place] [address] [phone] 08/21/2023 12:30 PM EDT Therapy Neuropsychology [facility] 200 [facility] [place] [address] Logan Morales, PhD 200 [facility] [place] [address] 09/06/2023 3:20 PM EDT Office Visit Neurology [facility] 200 [facility] [place] [address] Aparna Ruano PA-C 200 [facility] [place] [address] Scheduled Procedures Name Priority Associated Diagnoses Date/Ti me COLONOSCOPY FLEXIBLE PROXIMAL DIAGNOSTIC Recall Colon cancer screening Health Maintenance Due Date Last Done Comments DISCUSS TOBACCO CESSATION (REFER TO SMARTSET #0137) 1965 COVID-19 Vaccine (#1) 02/09/1969 Alpha-1 Antitrypsin [...] D LEVEL ONCE IN A LIFETIME-USE SMARTSET# 34769 Completed 08/04/2021 GARDASIL-HPV IMMUNIZATION SERIES Aged Out No longer eligible based on patient's age to complete this topic MENINGOCOCCAL (MENACTRA/MENVEO) Aged Out No longer eligible based on patient's age to complete this topic documented as of this encounter Medical Devices Not on filedocumented as of this encounter Care Teams Mock Up Maker Relationship Specialty Start Date End Date Anahy Grayson MD [address] [place] [address] PCP - General Internal Medicine 01/27/22 documented as of this encounter
--- OUTSIDE RECORDS SUMMARY | 2023-08-13 00:19 | External Medical Summary | Summary of Care ---
Author Name Unknown Organization [facility] Address [address] [place] [address] Phone [phone] Care Team Providers Care Language Therapist Name Role Phone Anahy Grayson MD Primary Care Provider [phone] Reason for Visit * Reason Onset Date Comments Medication Pre-auth 04/23/2023 Encounter Details Date Type Department Care Team (Late st Contact Info) Description 04/23/2023 Telephone [facility] [address] [place] [address] Anahy Grayson MD [address] [place] [address] Medication Pre-auth Allergies No known active allergiesdocumented as of this encounter (statuses as of 04/26/2023) Medications Medication Sig Dispensed Refills Start Date End Date Status Aspirin 81 MG Oral Tablet Delayed Release Take 1 Tablet by mouth in the morning. 0 Active Spiriva Respimat 2.5 MCG/ACT Inhalation Aerosol Solution (Tiotropium [place] Monohydrate) Inhale by mouth 2 Puffs in [...] 04/20/2023 Sarilumab 200 MG/1.14ML Subcutaneous Solution Auto-injector (BugsnagzaClix Software)Indication s:Rheumatoid arthritis involving multiple sites with positive [...] uncontrolled RA * Telephone Encounter - Precious Singh, MED ASSIST - 04/26/2023 7:36 AM EST [...] resubmit if appropriate. Thank you, Amy Ferguson Maintenance Painter Apprentice [facility] 04/25/2023, 6:49 PM * Telephone Encounter - Renita Balbuena LPN - 04/25/2023 2:24 PM EST Prior auth started through Prompt [place] Andrew # [id number] * Telephone Encounter - Allison Esteban LPN - 04/23/2023 8:45 AM EST Prior Auth for hydrocodone-acetaminophen down through covermymeds, access andrew is [id number] documented in this encounter Plan of Treatment Upcoming Encounters Date Type Department Care Team (Late st Contact Info) Description 05/18/2023 4:00 PM EST [facility] Visit [facility] [address] [address] Cindy Underwood, RN [address] [place] [address] 06/26/2023 11:30 AM EST Office Visit Cardiology, [facility] [address] [place] [address] Elizabeth Mccann CRNP [address] [place], [place] [address], [place] [address] 08/21/2023 12:30 PM EDT Therapy Neuropsychology [facility] [place] [address] [place] [address] Logan Morales, PhD 200 [facility] [place] [address] 09/06/2023 3:20 PM EDT Office Visit Neurology [facility] [place] [address] [place] [address] Aparna Ruano PA-C 200 [facility] [place] [address] Scheduled Procedures Name Priority Associated Diagnoses Date/Ti me COLONOSCOPY FLEXIBLE PROXIMAL DIAGNOSTIC Recall Colon cancer screening Health Maintenance Due Date Last Done Comments DISCUSS TOBACCO CESSATION (REFER TO SMARTSET #3654) 1965 COVID-19 Vaccine (#1) 02/09/1969 Alpha-1 Antitrypsin [...] D LEVEL ONCE IN A LIFETIME-USE SMARTSET# [id number] Completed 08/04/2021 GARDASIL-HPV IMMUNIZATION SERIES Aged Out No longer eligible based on patient's age to complete this topic MENINGOCOCCAL (MENACTRA/MENVEO) Aged Out No longer eligible based on patient's age to complete this topic documented as of this encounter Medical Devices Not on filedocumented as of this encounter Care Teams Language Therapist Relationship Specialty Start Date End Date Anahy Grayson MD [address] [place] [facility] [place] [address] PCP - General Internal Medicine 01/27/22 documented as of this encounter
--- OUTSIDE RECORDS SUMMARY | 2023-08-13 00:20 | External Medical Summary | Summary of Care ---
Author Name Unknown Organization [facility] Address [address] [place] [address] Phone [phone] Care Team Providers Care Firmware Manager Name Role Phone Anahy Grayson MD Primary Care Provider [phone] Reason for Visit * Reason Onset Date Comments Medication Refill 04/16/2023 Encounter Details Date Type Department Care Team (Late st Contact Info) Description 04/16/2023 Refill [facility] [address] [place] [address] Justin York MD [address] [place] [address] Allergies No known active allergiesdocumented as of this encounter (statuses as of 04/17/2023) Medications Medication Sig Dispensed Refills Start Date End Date Status Aspirin 81 MG Oral Tablet Delayed Release Take 1 Tablet by mouth in the morning. 0 Active Spiriva Respimat 2.5 MCG/ACT Inhalation Aerosol Solution (Tiotropium [place] Monohydrate) Inhale by mouth 2 Puffs in the morning. 4 g 11 03/21/2022 Active Medical Compression StockingsIndications :Edema, unspecified type,Chronic systolic heart failure (HCC) 20-30 mm Hg below the knee 1 Each 0 05/15/2022 Active Furosemide 20 MG Oral Tablet (Lasix)Indications:H FrEF (heart failure with reduced ejection fraction) (HCC) Take 2 Tablets by mouth in the morning. 180 Tablet 3 05/30/2022 Active Lidocaine 5 % External Patch (Lidoderm) Place 1 Patch topically on the skin daily. 30 Patch 1 06/23/2022 Active Vitamin D3 10 MCG (400 UNIT) [...] per day.. 180 Tablet 3 09/19/2022 Active diphenhydrAMINE HCl 25 MG Oral Capsule (Benadryl) 1 Capsule. 0 08/27/2021 Active Hydrocortisone Acetate 25 MG Rectal Suppository (Anusol HC) 1 Suppository. 0 08/27/2021 Active Empagliflozin 10 MG Oral Tablet (Jardiance) Take 1 Tablet by mouth in the morning. 30 Tablet 10/17/2022 Active Spironolactone 25 MG Oral Tablet (Aldactone) Take 0.5 Tablets by mouth in the morning. 15 Tablet 10/17/2022 Active Rosuvastatin Calcium 5 MG Oral Tablet (Crestor)Indications :Coronary artery disease involving [place] coronary artery of [place] heart without angina pectoris,HFrEF (heart failure with reduced ejection fraction) ([facility]),HTN, goal below 140/90,Dyslipidemia, goal LDL [...] 01/09/2023 Active predniSONE 5 MG Oral Tablet (Deltasone)Indicatio ns:Rheumatoid arthritis involving multiple sites with positive rheumatoid factor (HCC) Take one to two tablets by mouth daily for rheumatoid arthritis. 60 Tablet 2 03/05/2023 Active Sarilumab 200 MG/1.14ML Subcutaneous Solution Auto-injector ([employer])Indications :Rheumatoid arthritis involving multiple sites with positive rheumatoid factor (HCC) Inject 1.14 mL under the skin every 14 days. 2.28 mL 11 03/05/2023 Active Omeprazole 40 MG Oral Capsule Delayed Release (PriLOSEC) Take 1 Capsule by mouth in the morning. 1 hour before the first meal of the day.. 90 Capsule 3 03/15/2023 Active HYDROcodone-Acetamin ophen 10-325 MG Oral Tablet Take 1 Tablet by mouth every 6 hours as needed for Pain, Severe. 90 Tablet 0 03/17/2023 Active Sildenafil Citrate 20 MG Oral Tablet (Revatio)Indications :Raynaud's disease with gangrene (HCC) TAKE ONE TABLET BY MOUTH EVERY MORNING , 1 TABLET AT NOON AND 2 TABLETS BEFORE BEDTIME 90 Tablet 2 03/30/2023 Active HYDROcodone-Acetamin ophen 10-325 MG Oral Tablet Take 1 Tablet by mouth every 6 hours as needed for Pain, Severe. 90 Tablet 0 04/17/2023 Active documented as of this encounter (statuses as of 04/17/2023) Active Problems Problem Noted Date Diagnosed Date [...] as of this encounter (statuses as of 04/17/2023) Resolved Problems Problem Noted Date Diagnosed Date [...] as of this encounter (statuses as of 04/17/2023) Immunizations Name Administration Dates Next Due HepA [...] encounter Miscellaneous Notes * Telephone Encounter - Claudia Galaviz, [facility] - 04/17/2023 11:43 AM ESTRefused Prescriptions: Disp Refills HYDROcodone-Acetaminophen 10-325 MG Oral T*90 Tab*0 Sig: Take 1Tablet by mouth every 6 hours as needed for Pain, Severe.Refused By: CLAUDIA SERRANO [facility] for Refusal: Duplicate Request documented in this encounter Plan of Treatment Upcoming Encounters Date Type Department Care Team (Late st Contact Info) Description 04/20/2023 2:30 PM EST [facility] Visit [facility], [facility] 132 [facility] [place] [address] Cindy Underwood, RN 132 [facility] [place] [address] 04/24/2023 12:00 PM EST Scheduled Telephone [facility] [place], [facility] 132 [facility] [place] [address] [facility] Nurse Triage [address] [facility] [place] [address] 04/24/2023 3:00 PM EST Imaging Radiology [address] 132 [facility] [place] [address] 04/24/2023 3:15 PM EST Imaging Radiology [address] 132 [facility] [place] [address] 06/26/2023 11:30 AM EST Office Visit Cardiology, [facility] 132 [facility] [place] [address] Eliazbeth Mccann CRNP 400 [facility] [place] [phone] 08/21/2023 12:30 PM EDT Therapy Neuropsychology [facility] [place] [address] [facility] [place] [address] Logan Morales, PhD 200 [facility] [place] [address] 09/06/2023 3:20 PM EDT Office Visit [facility]rology [facility] [address] [place], [place] [address] Aparna Ruano PA-C [address] [place] [address] Scheduled Procedures Name Priority Associated Diagnoses Date/Ti me COLONOSCOPY FLEXIBLE PROXIMAL DIAGNOSTIC Recall Colon cancer screening Health Maintenance Due Date Last Done Comments DISCUSS TOBACCO CESSATION (REFER TO SMARTSET #0771) 1965 COVID-19 Vaccine (#1) 02/09/1969 Alpha-1 Antitrypsin [...] D LEVEL ONCE IN A LIFETIME-USE SMARTSET# 92020 Completed 08/04/2021 GARDASIL-HPV IMMUNIZATION SERIES Aged Out No longer eligible based on patient's age to complete this topic MENINGOCOCCAL (MENACTRA/MENVEO) Aged Out No longer eligible based on patient's age to complete this topic documented as of this encounter Medical Devices Not on filedocumented as of this encounter Care Teams Firmware Manager Relationship Specialty Start Date End Date Anahy Grayson MD [address] [place] [address] PCP - General Internal Medicine 01/27/22 documented as of this encounter
--- OUTSIDE RECORDS SUMMARY | 2023-08-13 00:20 | External Medical Summary | Summary of Care ---
Author Name Unknown Organization [facility] Address [address] [place] [place] [facility] [place] [address] Phone [phone] Care Team Providers Care Nanotechnology Engineering Technologist Name Role Phone Anahy Grayson MD Primary Care Provider [phone] Reason for Visit * Reason Comments [facility]: Maintenance Encounter Details Date Type Department Care Team (Late st Contact Info) Description 04/20/2023 2:30 PM EST Home Visit [facility], [facility] 132 [facility] [place] [address] Cindy Underwood, RN 132 [place] [address] Allergies No known active allergiesdocumented as of this encounter (statuses as of 04/20/2023) Medications Medication Sig Dispensed Refills Start Date End Date Status Aspirin 81 MG Oral Tablet Delayed Release Take 1 Tablet by mouth in the morning. 0 Active Spiriva Respimat 2.5 MCG/ACT Inhalation Aerosol Solution (Tiotropium [place] Monohydrate) Inhale by mouth 2 Puffs in the morning. 4 g 11 03/21/2022 Active Additional Information Patient not taking.Reported on 04/20/2023 Furosemide 20 MG Oral Tablet (Lasix)Indications :HFrEF [...] Oral Tablet (Crestor)Indicatio ns:Coronary artery disease involving [place] coronary artery of [place] heart without angina pectoris,HFrEF (heart failure with [...] 04/20/2023 Sarilumab 200 MG/1.14ML Subcutaneous Solution Auto-injector (In[employer]zara)Indicatio ns:Rheumatoid arthritis involving multiple sites with positive [...] by mouth in the morning. 0 Active Medical Compression StockingsIndicatio ns:Edema, unspecified type,Chronic systolic heart failure (HCC) 20-30 mm Hg below the knee 1 Each 0 05/15/2022 3 Discontinue d(Medicatio n List Clean Up) diphenhydrAMINE HCl 25 MG Oral Capsule (Benadryl) 1 Capsule. 0 08/27/2021 3 Discontinue d(Medicatio n List Clean Up) Hydrocortisone Acetate 25 MG Rectal Suppository (Anusol HC) 1 Suppository. 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 Scoliosis 06/23/2022 [...] as of this encounter (statuses as of 04/20/2023) Resolved Problems Problem Noted Date Diagnosed Date [...] as of this encounter (statuses as of 04/20/2023) Immunizations Name Administration Dates Next Due HepA [...] Sign Reading Time Taken Comments Blood Pressure 108/62 04/20/2023 2:43 PM EST Pulse 84 04/20/2023 2:43 PM EST Temperature 36.2 C (97.1 F) 04/20/2023 2:43 PM ES T Respiratory Rate 18 04/20/2023 2:43 PM EST Oxygen Saturation 97% 04/20/2023 2:43 PM EST Inhaled Oxygen Concentration - - Weight - - Height - - Body Mass Index - - documented in this encounter Progress Notes * Cindy Underwood, RN - 04/20/2023 1:15 PM EST [facility] S[facility] Mechanic Visit Date: 04/20/2023 Time: 1:15 PM Name: Harrison Morgan : 1965 Current Concerns: Pt seen for return RNCM visit He reports he has been doing ok but has had some recent issues with fluid retention He also has knee issues and would like to proceed with a knee replacement if heart is well enough Baseline wt has been down to 187-190 lbs He weighed the other day but it was late in the day with all clothes and shoes on and weight was 196 lbs He did not weight himself yesterday or today He feels his breathing is at baseline No increased LE edema Advised to weigh self daily in am before eating, getting dressed for the day, etc. Pt reports he has been having issues [...] he is unsure why it was ordered TE sent to PCP Physical Exam: BP 108/62 | Pulse 84 | Temp 36.2 C (97.1 F) | Resp 18 | SpO2 97% Pain 7 Physical Exam Constitutional: General: He is not [...] and time. Problems/Symptoms: Review of Systems Constitutional: Positive for fatigue. HENT: Negative. Eyes: Negative. Respiratory: Positive for shortness of breath (LEVIN - at baseline). Cardiovascular: Negative. Gastrointestinal: Positive for constipation (alternates) and diarrhea (alternates). Genitourinary: Negative. Musculoskeletal: Positive for arthralgias, back pain and gait problem. Skin: Negative. Psychiatric/Behavioral: Negative. Medication Reconciliation: (See medication list) Does patient take medications as ordered: Yes Patient Well Being: PHQ2/9: Myc Visit Accident Related Question Question 04/20/2023 1:28 AM EST - Filed by Patient Is this visit related to an accident? (i.e work, motor vehicle) No No change in living situation [facility] Completed this Visit: No. Routine visit Advanced Care Planning: No documentation, ACP [...] Dosing., and Purspose. Treatment/Plan: Continue meds as prescribed/reviewed Home Interventions Provided: Home Intervention: Other; carlyleal Consulted PCP/Specialist Reinforced current Plan of Care, including self-management and medication regimen Patient's 'Red Flags': Wt gain of 3 lbs in 24 hrs or 5 lbs in one week Increased SOB Dizziness/weakness Patient Needs to Remember: Call [facility] at with any new or worsening health concerns or problems, red flag symptoms. Referrals Needed: Other none Follow Up: Is there cellular connectivity/connectivity in the home? No Does the patient have internet in the home? Yes Patient encouraged to call the intake phone number for all urgent but not emergent issues. Is the patient new to [facility] within the last 30 days? No, Assess appropriateness for upcoming telehealth visits. Cancel telehealth visits & schedule home visit with care marine steam fitter(s)as indicated. Provider is in agreement with Plan of Care: Yes Scheduled to follow up with patient in 3 weeks - 1 week with oil process stillman nurse. Cinyd Underwood RN 04/20/2023 1:15 PM documented in this encounter Plan of Treatment Upcoming Encounters Date Type Department Care Team (Late st Contact Info) Description 04/24/2023 12:00 PM EST Scheduled Telephone [facility], [facility] 132 [facility] [place] [address] [facility] Nurse Triage 132 [facility] [place] [address] 04/24/2023 3:00 PM EST Imaging Radiology [address] 132 [facility] [place] [address] 04/24/2023 3:15 PM EST Imaging Radiology [address] 132 [facility] [place] [address] 05/18/2023 4:00 PM EST Home Visit [facility], [facility] 132 [facility] [place] [address] Cindy Underwood, TOYA 132 [facility] [place] [address] 06/26/2023 11:30 AM EST Office Visit Cardiology, [facility] 132 [facility] [place] [address] Elizabeth Mccann CRNP [facility] [place] [phone] 08/21/2023 12:30 PM EDT Therapy Neuropsychology [facility] 200 [facility] [place] [address] Logan Morales, PhD 200 [facility] [place] [address] 09/06/2023 3:20 PM EDT Office Visit Neurology [facility] 200 [facility] [place] [address] Aparna Ruano PA-C [address] [place] [address] Scheduled Procedures Name Priority Associated Diagnoses Date/Ti [...] D LEVEL ONCE IN A LIFETIME-USE SMARTSET# 79585 Completed 08/04/2021 GARDASIL-HPV IMMUNIZATION SERIES Aged Out No longer eligible based on patient's age to complete this topic MENINGOCOCCAL (MENACTRA/MENVEO) Aged Out No longer eligible based on patient's age to complete this topic documented as of this encounter Medical Devices Not on filedocumented as of this encounter Care Teams Nanotechnology Engineering Technologist Relationship Specialty Start Date End Date Anahy Grayson MD 9 [facility] [address] PCP - General Internal Medicine 01/27/22 documented as of this encounter
--- OUTSIDE RECORDS SUMMARY | 2023-08-13 00:20 | External Medical Summary | Summary of Care ---
Author Name Unknown Organization [facility] Address [address] [facility] [place] [address] Phone [phone] Care Team Providers Care Cargo Surveyor Name Role Phone Anahy Grayson MD Primary Care Provider [phone] Encounter Details Date Type Department Care Team (Late st Contact Info) Description 04/11/2023 Population Health External Data Unspecified Department Allergies No known active allergiesdocumented as of this encounter (statuses as of 04/11/2023) Medications Medication Sig Dispensed Refills Start Date End Date Status Aspirin 81 MG Oral Tablet Delayed Release Take 1 Tablet by mouth in the morning. 0 Active Spiriva Respimat 2.5 MCG/ACT Inhalation Aerosol Solution (Tiotropium [place] Monohydrate) Inhale by mouth 2 Puffs in [...] Oral Tablet (Crestor)Indications :Coronary artery disease involving [place] coronary artery of [place] heart without angina pectoris,HFrEF (heart failure with reduced ejection fraction) ([facility]),HTN, goal below 140/90,Dyslipidemia, goal LDL below [...] Active Sarilumab 200 MG/1.14ML Subcutaneous Solution Auto-injector ([employer])Indications :Rheumatoid arthritis involving multiple sites with positive [...] Pain, Severe. 90 Tablet 0 03/17/2023 Active HYDROcodone-Acetamin ophen 10-325 MG Oral Tablet Take 1 Tablet by mouth every 6 hours as needed for Pain, Severe. 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 Scoliosis 06/23/2022 [...] as of this encounter (statuses as of 04/11/2023) Resolved Problems Problem Noted Date Diagnosed Date [...] as of this encounter (statuses as of 04/11/2023) Immunizations Name Administration Dates Next Due HepA Inact/HepB Recomb>=18yrs old 08/26/2018 Hepatitis B, 20+ yrs 05/27/2019,10/10/2018 Pneumococcal Conjugate Vacc, 13 Valent (Prevnar) 03/21/2019 Pneumococcal Polysaccharide PPV23 (Pneumovax) 02/12/2020 SEASONAL INFLUENZA, PF, 6 M & Above, IM , (FLULAVAL or FLUZONE) 03/03/2021,02/12/2020,03/21/2019,12/0 08/2017,03/15/2017 04/30/2019 TD - Tetanus/Diptheria (ADULT) [...] Care Team (Late st Contact Info) Description 04/11/2023 4:30 PM EST Imaging Radiology [address] [address] 04/11/2023 4:45 PM EST Imaging Radiology [address] [place] [address] 04/20/2023 2:30 PM EST Home Visit [facility] [place], [facility] 132 [place] [address] Cindy Underwood, RN [address] [place] [address] 04/24/2023 12:00 PM EST Scheduled Telephone [facility], [facility] 132 [facility] [place] [address] [facility] Nurse Triage [address] [place] [address] 06/26/2023 11:30 AM EST Office Visit Cardiology, [facility] 132 [facility] [place] [address] Elizabeth Mccann CRNP 400 [facility] [place] [phone] 08/21/2023 12:30 PM EDT Therapy Neuropsychology [facility] [address] [place] [address] Logan Morales, PhD 200 [facility] [place] [address] 09/06/2023 3:20 PM EDT Office Visit Neurology [facility] [address] [place] [address] Aparna Ruano PA-C 200 [facility] [place] [address] Scheduled Procedures Name Priority Associated Diagnoses Date/Ti me COLONOSCOPY FLEXIBLE PROXIMAL DIAGNOSTIC Recall Colon cancer screening Health Maintenance Due Date Last Done Comments DISCUSS TOBACCO CESSATION (REFER TO SMARTSET #7410) 1965 COVID-19 Vaccine (#1) 02/09/1969 Alpha-1 Antitrypsin [...] D LEVEL ONCE IN A LIFETIME-USE SMARTSET# 39433 Completed 08/04/2021 GARDASIL-HPV IMMUNIZATION SERIES Aged Out No longer eligible based on patient's age to complete this topic MENINGOCOCCAL (MENACTRA/MENVEO) Aged Out No longer eligible based on patient's age to complete this topic documented as of this encounter Medical Devices Not on filedocumented as of this encounter Care Teams Cargo Surveyor Relationship Specialty Start Date End Date Anahy Grayson MD [address] [place] [address] PCP - General Internal Medicine 01/27/22 documented as of this encounter
--- OUTSIDE RECORDS SUMMARY | 2023-08-13 00:20 | External Medical Summary | Summary of Care ---
Author Name Unknown Organization [facility] Address [address] [place] [address] Phone [phone] Care Team Providers Care Service Counselor Name Role Phone Anahy Grayson MD Primary Care Provider [phone] Reason for Visit * Reason Onset Date Comments Medication Refill 04/16/2023 Encounter Details Date Type Department Care Team (Late st Contact Info) Description 04/16/2023 Refill [facility] [address] [place] [address] Anahy Grayson MD [address] [place] [address] Allergies No known active allergiesdocumented as of this encounter (statuses as of 04/17/2023) Medications Medication Sig Dispensed Refills Start Date End Date Status Aspirin 81 MG Oral Tablet Delayed Release Take 1 Tablet by mouth in the morning. 0 Active Spiriva Respimat 2.5 MCG/ACT Inhalation Aerosol Solution (Tiotropium [place] Monohydrate) Inhale by mouth 2 Puffs in [...] MG Oral Tablet (Apixaban)Indication s:Persistent atrial fibrillation ([facility]) TAKE ONE TABLET BY MOUTH 2 TIMES [...] Oral Tablet (Crestor)Indications :Coronary artery disease involving seminole coronary artery of seminole heart without angina pectoris,HFrEF (heart failure with reduced ejection fraction) ([facility]),HTN, goal below 140/90,Dyslipidemia, goal LDL below 70,Palpitations [...] Active Sarilumab 200 MG/1.14ML Subcutaneous Solution Auto-injector (F.8 Interactivezara)Indications :Rheumatoid arthritis involving multiple sites with positive [...] Diagnosed Date Food insecurity 01/08/2023 Overview: Per [facility] Protocol Senile osteoporosis 01/04/2023 Lung [...] dose Rx 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 Refused By: ANAHY GRAYSON Reason for Refusal: Duplicate Request * Telephone Encounter - Naveen Raines [facility] - 04/17/2023 10:56 AM EST Pending Prescriptions: Disp Refills HYDROcodone-Acetaminophen 10-325 MG Oral T*90 Tab*0 Sig: Take 1 Tablet by mouth every 6 hours as needed for Pain, Severe. * Telephone Encounter - Naveen Raines [facility] - 04/17/2023 10:55 AM EST I have reviewed the patients controlled substance dispensing history in the Prescription Drug Monitoring Program in compliance with the [facility] regulations before prescribing a controlled substance. PDMP checked on 04/17/2023. Pending Prescriptions: Disp Refills HYDROcodone-Acetaminophen 10-325 MG Oral *90 Tab*0 Sig: Take 1 Tablet by mouth every 6 hours as needed for Pain, Severe. Last Visit: 12/15/2022 (in office), 06/15/2020 (telemedicine) Next Visit: Visit date not found Date medication was last filled: 03/17/23 Date medication is due for refill: 04/08/23 Pharmacy: [facility] #[id number] Is this request for a controlled substance? [...] Results Review. Please approve if appropriate. Thanks, Naveen Raines PharmD Clinical Pharmacist [facility] ([facility]) (formerly Telepharmacy) [phone] 04/17/2023, 10:55 AM * Telephone Encounter - Lisa Gonzales PHARM Tech - 04/16/2023 12:26 PM EST Did you pend patient's preferred pharmacy and medication before forwarding?yes Pharmacy: [facility] #[id number] [address] [place] [address] Pending Prescriptions: Disp Refills HYDROcodone-Acetaminophen 10-325 MG Oral *90 Tab*0 Sig: Take 1 Tablet by mouth every 6 hours as needed for Pain, Severe. Last Visit: 12/15/2022 (in office), 06/15/2020 (telemedicine) Next Visit: Visit date not found If no future appointments scheduled, and last appointment is greater than a year ago, please schedule patient for a follow-up appointment Last date the medication was ordered: 03-17-23 Is this request for a controlled substance?Yes, What was the last refill date 03-17-23 w/ quantity 90 and dosage 10-325mg and Urine Drug Screen was completed Urine [...] PM EST [facility] Visit [facility] [address] [address] Cindy Underwood RN [address] [place] [address] 04/24/2023 12:00 PM EST Scheduled Telephone [facility], [facility] [address] [place] [address] [facility] Nurse Triage [address] [facility] [place] [address] 04/24/2023 3:00 PM EST Imaging Radiology [address], [place] [facility] [place] [address] 04/24/2023 3:15 PM EST Imaging Radiology [address], [place] [address] [facility] [place] [address] 06/26/2023 11:30 AM EST Office Visit Cardiology, [facility] [address] [facility] [place] [address] Elizabeth Mccann CRNP [address] [place] [address] [place] [phone] 08/21/2023 12:30 PM EDT Therapy Neuropsychology [facility] [address] [place] [address] Logan Morales, PhD [address] [facility] [address] [place] [address] 09/06/2023 3:20 PM EDT Office Visit Neurology [facility] [place] [address] [facility] [address] [place] [address] Aparna Ruano PA-C [address] [facility] [address] [place] [address] Scheduled Procedures Name Priority Associated Diagnoses Date/Ti me COLONOSCOPY FLEXIBLE PROXIMAL DIAGNOSTIC Recall Colon cancer screening Health Maintenance Due Date Last Done Comments DISCUSS TOBACCO CESSATION (REFER TO SMARTSET #0601) 1965 COVID-19 Vaccine (#1) 02/09/1969 Alpha-1 Antitrypsin [...] D LEVEL ONCE IN A LIFETIME-USE SMARTSET# 56890 Completed 08/04/2021 GARDASIL-HPV IMMUNIZATION SERIES Aged Out No longer eligible based on patient's age to complete this topic MENINGOCOCCAL (MENACTRA/MENVEO) Aged Out No longer eligible based on patient's age to complete this topic documented as of this encounter Medical Devices Not on filedocumented as of this encounter Care Teams Service Counselor Relationship Specialty Start Date End Date Anahy Grayson MD [address] [place] [address] PCP - General Internal Medicine 01/27/22 documented as of this encounter
--- OUTSIDE RECORDS SUMMARY | 2023-08-13 00:21 | External Medical Summary | Summary of Care ---
Author Name Unknown Organization [facility] Address [address] [place] [address] Phone [phone] Care Team Providers Care Cell Inspector Name Role Phone Anahy Grayson MD Primary Care Provider [phone] Reason for Referral * Precert (Within 10 days (routine)) - Pending Review Specialty Diagnoses / Procedures Referred By Lizettac t Referred To Contact Radiology Diagnoses Abnormal brain MRI History of CVA (cerebrovascular accident) Procedures CTA NECK Zahida Monroy PA-C [address] [place] [address] Referral ID Status Reason Start Date Expiration Date V isits Requested Visits Authorized [id number] Pending Review 04/03/2023 999 999 * Precert (Within 10 days (routine)) - Pending Review Specialty Diagnoses / Procedures Referred By Jose tidwell Referred To Contact Radiology Diagnoses Abnormal brain MRI History of CVA (cerebrovascular accident) Procedures CTA HEAD Zahida Monroy PA-C [address] [place] [address] Referral ID Status Reason Start Date Expiration Date V isits Requested Visits Authorized [id number] Pending Review 04/03/2023 999 999 Reason for Visit * Reason Onset Date Comments Test Results 03/30/2023 Unexpected or In determinate Result Encounter Details Date Type Department Care Team (Late st Contact Info) Description 03/30/2023 Telephone Neurology [facility] [place] [address] [place] [address] Aparna Ruano PA-C [address] [place] [address] Test Results (Unexpected or Indeterminate ... Allergies No known active allergiesdocumented as of this encounter (statuses as of 04/02/2023) Medications Medication Sig Dispensed Refills Start Date End Date Status Aspirin 81 MG Oral Tablet Delayed Release Take 1 Tablet by mouth in the morning. 0 Active Spiriva Respimat 2.5 MCG/ACT Inhalation Aerosol Solution (Tiotropium [place] Monohydrate) Inhale by mouth 2 Puffs in the morning. 4 g 11 03/21/2022 Active Medical Compression StockingsIndicati ons:Edema, unspecified type,Chronic systolic heart failure (HCC) 20-30 mm Hg below the knee 1 Each 0 05/15/2022 Active Furosemide 20 MG Oral Tablet (Lasix)Indication [...] Oral Tablet (Crestor)Indicati ons:Coronary artery disease involving samish coronary artery of samish heart without angina pectoris,HFrEF (heart failure with reduced ejection fraction) ([facility]),HTN, goal below 140/90,Dyslipidem ia, goal LDL below [...] Pain, Severe. 90 Tablet 0 03/17/2023 Active HYDROcodone-Aceta minophen 10-325 MG Oral Tablet Take 1 Tablet by mouth every 6 hours as needed for Pain, Severe. 90 Tablet 0 03/19/2023 Active Sildenafil Citrate 20 MG Oral Tablet (Revatio)Indicati ons:Raynaud's disease with gangrene (HCC) TAKE ONE TABLET BY MOUTH EVERY MORNING , 1 TABLET AT NOON AND 2 TABLETS BEFORE BEDTIME 90 Tablet 2 12/25/2022 3 Discontinued documented as of this encounter (statuses as of 04/02/2023) Active Problems Problem Noted Date Diagnosed Date Food insecurity 01/08/2023 Overview: Per [facility] Protocol Senile osteoporosis 01/04/2023 Lung [...] as of this encounter (statuses as of 04/02/2023) Resolved Problems Problem Noted Date Diagnosed Date [...] as of this encounter (statuses as of 04/02/2023) Immunizations Name Administration Dates Next Due HepA [...] encounter Miscellaneous Notes * Addendum Note - Zahida Monroy PA-C - 04/02/2023 9:44 AM ESTAddended by: ZAHIDA MONROY on: 04/02/2023 09:44 AM Modules accepted: Orders * Telephone Encounter - Zahida Monroy PA-C - 04/02/2023 9:41 AM EST Left generic voicemail that additional imaging is needed. MRI brain shows few small infarcts that may represent old stroke. Orders placed for CTA head/neck. From chart review appears he is already on daily ASA, and Eliquis. Appears he has cancelled Zio monitor twice. * Telephone Encounter - Quita Hernández OSA - 03/30/2023 12:13 PM EDT Hello- The radiologist discovered an unexpected or indeterminate finding on Harrison Morgan ([id number]) and asksthat you review the following report. Study Type:MRI BRAIN W WO CONTRAST Date of Study: 03/29/2023 IMPRESSION No acute intracranial abnormality. A few punctate foci of increased DWI signal in the left centrum semiovale may represent a subacute infarcts. These may be in the deep watershed zone and a CTA of the head and neck is advised Fluid in left mastoid air cells Moderate chronic microvascular changes and global volume loss Please respond to this encounter to acknowledge receipt of this message and take responsibility to ensure this report is reviewed. Thank you, DAYAN Coleman Client Service Rep [facility] documented in this encounter Plan of Treatment Upcoming Encounters Date Type Department Care Team (Late st Contact Info) Description 04/06/2023 2:00 PM EST Office Visit Rheumatology [facility] [address] [facility] [place] [address] Rajiv Anderson CRNP [address] [facility] [place] [address] 04/24/2023 12:00 PM EST Scheduled Telephone [facility] [address] [facility] [place] [address] [facility] Nurse Triage [address] [facility] [place] [address] 06/26/2023 11:30 AM EST Office Visit Cardiology, [facility] [address] [place] [address] Elizabeth Mccann CRNP [address] [facility] [place] [phone] 09/06/2023 3:20 PM EDT Office Visit Neurology [address] [place] [address] [place] [address] Aparna Ruano PA-C [address] [place] [address] Scheduled Orders Name Type Priority Associated Diagnoses Orde r Schedule CTA HEAD Medical Imaging Routine Abnormal brain MRI History of CVA (cerebrovascular accident) Expected: 04/03/2023, Expires: 05/02/2024 CTA NECK Medical Imaging Routine Abnormal brain MRI History of CVA (cerebrovascular accident) Expected: 04/03/2023, Expires: 05/02/2024 Scheduled Procedures Name Priority Associated Diagnoses Date/Ti me COLONOSCOPY FLEXIBLE PROXIMAL DIAGNOSTIC Recall Colon cancer screening Health Maintenance Due Date Last Done Comments DISCUSS TOBACCO CESSATION (REFER TO SMARTSET #1111) 1965 COVID-19 Vaccine (#1) 02/09/1969 Alpha-1 Antitrypsin [...] D LEVEL ONCE IN A LIFETIME-USE SMARTSET# 40865 Completed 08/04/2021 GARDASIL-HPV IMMUNIZATION SERIES Aged Out No longer eligible based on patient's age to complete this topic MENINGOCOCCAL (MENACTRA/MENVEO) Aged Out No longer eligible based on patient's age to complete this topic documented as of this encounter Medical Devices Not on filedocumented as of this encounter Visit Diagnoses Diagnosis Abnormal brain MRI- Primary Nonspecific (abnormal) findings on radiological and other examination of skull and head History of CVA (cerebrovascular accident) Transient ischemic attack (TIA), and cerebral infarction without residual deficits documented in this encounter Care Teams Cell Inspector Relationship Specialty Start Date End Date Anahy Grayson MD [address] [place] [facility] [place] [address] PCP - General Internal Medicine 01/27/22 documented as of this encounter
--- OUTSIDE RECORDS SUMMARY | 2023-08-13 00:21 | External Medical Summary | Summary of Care ---
Author Name Unknown Organization [facility] Address [address] [place] [address] Phone [phone] Care Team Providers Care Rn Embedded Name Role Phone Anahy Grayson MD Primary Care Provider [phone] Reason for Visit * Reason Onset Date Comments Test Results 03/30/2023 Unexpected or In determinate Result Encounter Details Date Type Department Care Team (Late st Contact Info) Description 03/30/2023 Telephone Neurology [facility] [address] [place] [place] [address] Aparna Ruano PA-C [address] [place] [place] [address] Test Results (Unexpected or Indeterminate ... Allergies No known active allergiesdocumented as of this encounter (statuses as of 04/01/2023) Medications Medication Sig Dispensed Refills Start Date [...] s:HFrEF (heart failure with reduced ejection fraction) ([facility]) Take 2 Tablets by mouth [...] Oral Tablet (Crestor)Indicati ons:Coronary artery disease involving hoopa coronary artery of hoopa heart without angina pectoris,HFrEF (heart failure with reduced ejection fraction) ([facility]),HTN, goal below 140/90,Dyslipidem ia, goal LDL [...] as of this encounter (statuses as of 04/01/2023) Active Problems Problem Noted Date Diagnosed Date [...] dose Rx Exacerbation plan o Chest Xray shelter systemic steroid user 06/23/2022 Scoliosis 06/23/2022 SVT [...] as of this encounter (statuses as of 04/01/2023) Resolved Problems Problem Noted Date Diagnosed Date [...] as of this encounter (statuses as of 04/01/2023) Immunizations Name Administration Dates Next Due HepA [...] encounter Miscellaneous Notes * Telephone Encounter - Quita Hernández OSA - 03/30/2023 12:13 PM EDT Hello- The radiologist discovered an unexpected or indeterminate finding on Harrison Morgan ([id number]) and asksthat you review the following report. [...] Thank you, DAYAN Coleman Client Service Rep [facility] documented in this encounter Plan of Treatment Upcoming Encounters Date Type Department Care Team (Late st Contact Info) Description 04/06/2023 2:00 PM EST Office Visit Rheumatology [place] [address] [facility] [place] [address] Rajiv Anderson CRNP [address] [facility] [place] [address] 04/24/2023 12:00 PM EST Scheduled Telephone [facility] [place] [address] [facility] [place] [address] [facility] Nurse Triage [address] [facility] [place] [address] 06/26/2023 11:30 AM EST Office Visit Cardiology, [facility] [address] [facility] [place] [address] Elizabeth Mccann CRNP [address] [place] [id number] 09/06/2023 3:20 PM EDT Office Visit Neurology [address] [place] [address] [place] [address] Aparna Ruano PA-C [address] [place] [address] Scheduled Procedures Name Priority Associated Diagnoses Date/Ti me COLONOSCOPY FLEXIBLE PROXIMAL DIAGNOSTIC Recall Colon cancer screening Health Maintenance Due Date Last Done Comments DISCUSS TOBACCO CESSATION (REFER TO SMARTSET #8118) 1965 COVID-19 Vaccine (#1) 02/09/1969 Alpha-1 Antitrypsin [...] D LEVEL ONCE IN A LIFETIME-USE SMARTSET# 15531 Completed 08/04/2021 GARDASIL-HPV IMMUNIZATION SERIES Aged Out No longer eligible based on patient's age to complete this topic MENINGOCOCCAL (MENACTRA/MENVEO) Aged Out No longer eligible based on patient's age to complete this topic documented as of this encounter Medical Devices Not on filedocumented as of this encounter Care Teams Rn Embedded Relationship Specialty Start Date End Date Anahy Grayson MD [address] [place] [address] PCP - General Internal Medicine 01/27/22 documented as of this encounter
--- OUTSIDE RECORDS SUMMARY | 2023-08-13 00:21 | External Medical Summary | Summary of Care ---
Author Name Unknown Organization [facility] Address [address] [place] [address] Phone [phone] Care Team Providers Care Retail Pricing Coordinator Name Role Phone Anahy Grayson MD Primary Care Provider [phone] Encounter Details Date Type Department Care Team ([facility] st Contact Info) Description 04/10/2023 Specialty Pharmacy [facility], [address] [address] Medication, [place] Specialty Refill, [address] [address] Allergies No known active allergiesdocumented as of this encounter (statuses as of 04/10/2023) Medications Medication Sig Dispensed Refills Start Date End Date Status Aspirin 81 MG Oral Tablet Delayed Release Take 1 Tablet by mouth in the morning. 0 Active Spiriva Respimat 2.5 MCG/ACT Inhalation Aerosol Solution (Tiotropium [place] Monohydrate) Inhale by mouth 2 Puffs in [...] Oral Tablet (Crestor)Indications :Coronary artery disease involving [place] coronary artery of [place] heart without angina pectoris,HFrEF (heart failure with [...] Active Sarilumab 200 MG/1.14ML Subcutaneous Solution Auto-injector (Web and Rank)Indications :Rheumatoid arthritis involving multiple sites with positive [...] as of this encounter (statuses as of 04/10/2023) Active Problems Problem Noted Date Diagnosed Date Food insecurity 01/08/2023 Overview: Per [facility] Protocol Senile osteoporosis 01/04/2023 Lung nodules [...] dose Rx Exacerbation plan o Chest Xray residential systemic steroid user 06/23/2022 Scoliosis 06/23/2022 SVT [...] as of this encounter (statuses as of 04/10/2023) Resolved Problems Problem Noted Date Diagnosed Date [...] as of this encounter (statuses as of 04/10/2023) Immunizations Name Administration Dates Next Due HepA [...] Progress Notes * Sylvia Madrigal CPhT - 04/10/2023 1:38 PM EST Prescribed medication: Medication: Kevzara Shipment date: 04/12 Delivery method: Specialty Mail Location Medication Delivered too? Prescription Address: [address] [place] [address] Sylvia Madrigal CPhT [facility] 04/10/2023,1:38 PM documented in this encounter Plan of Treatment Upcoming Encounters Date Type Department Care Team (Late st Contact Info) Description 04/11/2023 4:30 PM EST Imaging Radiology [address] [facility] [place] [address] 04/11/2023 4:45 PM EST Imaging Radiology [address], [place] [facility] [place] [address] 04/20/2023 2:30 PM EST [facility], [facility] [address] [facility] [place] [address] Cindy Underwood, RN 132 [facility] [place] [address] 04/24/2023 12:00 PM EST Scheduled Telephone [facility], [place] [address] [facility] [place] [address] [facility] Nurse Triage [address] [facility] [place] [address] 06/26/2023 11:30 AM EST Office Visit Cardiology, [facility] [address] [facility] [place] [address] Elizabeth Mccann CRNP [address] [facility] [place] [phone] 08/21/2023 12:30 PM EDT Therapy Neuropsychology [facility] [address] [place] [address] Logan Morales, PhD [address] [facility] [place] [address] 09/06/2023 3:20 PM EDT Office Visit Neurology [facility] [place] [address] [place] [address] Aparna Ruano PA-C [address] [place] [address] Scheduled Procedures Name Priority Associated Diagnoses Date/Ti me COLONOSCOPY FLEXIBLE PROXIMAL DIAGNOSTIC Recall Colon cancer screening Health Maintenance Due Date Last Done Comments DISCUSS TOBACCO CESSATION (REFER TO SMARTSET #7506) 1965 COVID-19 Vaccine (#1) 02/09/1969 Alpha-1 Antitrypsin [...] D LEVEL ONCE IN A LIFETIME-USE SMARTSET# 13843 Completed 08/04/2021 GARDASIL-HPV IMMUNIZATION SERIES Aged Out No longer eligible based on patient's age to complete this topic MENINGOCOCCAL (MENACTRA/MENVEO) Aged Out No longer eligible based on patient's age to complete this topic documented as of this encounter Medical Devices Not on filedocumented as of this encounter Care Teams Retail Pricing Coordinator Relationship Specialty Start Date End Date Anahy Grayson MD [address] [address] PCP - General Internal Medicine 01/27/22 documented as of this encounter
--- OUTSIDE RECORDS SUMMARY | 2023-08-13 00:22 | External Medical Summary | Summary of Care ---
Author Name Unknown Organization [facility] Address [address] [place] [address] Phone [phone] Care Team Providers Care Nurses Superintendent Name Role Phone Anahy Grayson MD Primary Care Provider [phone] Reason for Visit * Reason Onset Date Comments Test Results 03/30/2023 Unexpected or In determinate Result Encounter Details Date Type Department Care Team (Late st Contact Info) Description 03/30/2023 Telephone Neurology [facility] 200 [facility] [place] [address] Aparna Ruano PA-C 200 [facility] [place] [address] Test Results (Unexpected or Indeterminate ... Allergies No known active allergiesdocumented as of this encounter (statuses as of 03/30/2023) Medications Medication Sig Dispensed Refills Start Date End Date Status Aspirin 81 MG Oral Tablet Delayed Release Take 1 Tablet by mouth in the morning. 0 Active Spiriva Respimat 2.5 MCG/ACT Inhalation Aerosol Solution (Tiotropium [place] Monohydrate) Inhale by mouth 2 Puffs in [...] Oral Tablet (Crestor)Indications :Coronary artery disease involving barrow coronary artery of barrow heart without angina pectoris,HFrEF (heart failure with reduced ejection fraction) ([facility]),HTN, goal below 140/90,Dyslipidemia, goal LDL [...] or chew. 30 Capsule 5 12/15/2022 Active Sildenafil Citrate 20 MG Oral Tablet (Revatio)Indications :Raynaud's disease with gangrene (HCC) TAKE ONE TABLET BY MOUTH EVERY MORNING , 1 TABLET AT NOON AND 2 TABLETS BEFORE BEDTIME 90 Tablet 2 12/25/2022 Active Ondansetron HCl 4 MG Oral Tablet [...] Pain, Severe. 90 Tablet 0 03/19/2023 Active documented as of this encounter (statuses as of 03/30/2023) Active Problems Problem Noted Date Diagnosed Date [...] dose Rx Exacerbation plan o Chest Xray prison systemic steroid user 06/23/2022 Scoliosis 06/23/2022 SVT [...] as of this encounter (statuses as of 03/30/2023) Resolved Problems Problem Noted Date Diagnosed Date [...] as of this encounter (statuses as of 03/30/2023) Immunizations Name Administration Dates Next Due HepA [...] Miscellaneous Notes * Telephone Encounter - Quita Hernández, DAYAN - 03/30/2023 12:13 PM EDT Ramonita- The radiologist discovered an unexpected or indeterminate finding on Harrison Morgan ([id number]) and asksthat you review the following report. [...] DAYAN Coleman Client Service Rep [facility] documented in this encounter Plan of Treatment Upcoming Encounters Date Type Department Care Team (Late st Contact Info) Description 04/06/2023 2:00 PM EST Office Visit Rheumatology [facility] [address] [facility] [place] [address] Rajiv Anderson CRNP [address] [facility] [place] [address] 04/24/2023 12:00 PM EST Scheduled Telephone [facility] [place], [facility] 132 [facility] [place] [address] [facility] Nurse Triage [address] [place] [address] 06/26/2023 11:30 AM EST Office Visit Cardiology, [facility] [address] [place] [address] Elizabeth Mccann CRNP [address] [facility] [place] [phone] 09/06/2023 3:20 PM EDT Office Visit Neurology [facility] [place] [address] [place] [address] Aparna Ruano PA-C [address] [place] [address] Scheduled Procedures Name Priority Associated Diagnoses Date/Ti [...] D LEVEL ONCE IN A LIFETIME-USE SMARTSET# [id number] Completed 08/04/2021 GARDASIL-HPV IMMUNIZATION SERIES Aged Out No longer eligible based on patient's age to complete this topic MENINGOCOCCAL (MENACTRA/MENVEO) Aged Out No longer eligible based on patient's age to complete this topic documented as of this encounter Medical Devices Not on filedocumented as of this encounter Care Teams Nurses Superintendent Relationship Specialty Start Date End Date Anahy Grayson MD [address] [place] [address] PCP - General Internal Medicine 01/27/22 documented as of this encounter
--- OUTSIDE RECORDS SUMMARY | 2023-08-13 00:22 | External Medical Summary | Summary of Care ---
Author Name Unknown Organization [facility] Address [address] [place] [address] Phone [phone] Care Team Providers Care Registration Clerk Name Role Phone Anahy Grayson MD Primary Care Provider [phone] Reason for Visit * Reason Onset Date Comments Test Results 03/30/2023 Unexpected or In determinate Result Encounter Details Date Type Department Care Team (Late st Contact Info) Description 03/30/2023 Telephone Neurology [facility] 200 [facility] [place] [address] Aparna Ruano PA-C 200 [facility] [place] [address] Test Results (Unexpected or Indeterminate ... Allergies No known active allergiesdocumented as of this encounter (statuses as of 03/30/2023) Medications Medication Sig Dispensed Refills Start Date End Date Status Aspirin 81 MG Oral Tablet Delayed Release Take 1 Tablet by mouth in the morning. 0 Active Spiriva Respimat 2.5 MCG/ACT Inhalation Aerosol Solution (Tiotropium [place] Monohydrate) Inhale by mouth 2 Puffs in [...] Oral Tablet (Crestor)Indications :Coronary artery disease involving [place] coronary artery of [place] heart without angina pectoris,HFrEF (heart failure with reduced ejection fraction) ([facility]),HTN, goal below 140/90,Dyslipidemia, goal LDL below 70,Palpitations [...] unexpected or indeterminate finding on Harrison Morgan ([id number]) and asksthat you review the following report. [...] Thank you, DAYAN Coleman Client Service Rep [facility] documented in this encounter Plan of Treatment Upcoming Encounters Date Type Department Care Team (Late st Contact Info) Description 04/06/2023 2:00 PM EST Office Visit Rheumatology [facility] [address] [facility] [place] [address] Rajiv Anderson CRNP [address] [facility] [place] [address] 04/24/2023 12:00 PM EST Scheduled Telephone [facility] [place], [facility] 132 [facility] [place] [address] [facility] [address] [place] [address] 06/26/2023 11:30 AM EST Office Visit Cardiology, [facility] [address] [place] [address] Elizabeth Mccann CRNP [address] [facility] [phone] 09/06/2023 3:20 PM EDT Office Visit Neurology [facility]one [address] [place] [address] [place] [address] Aparna Ruano PA-C [address] [place] [address] Scheduled Procedures Name Priority Associated Diagnoses Date/Ti [...] D LEVEL ONCE IN A LIFETIME-USE SMARTSET# [id number] Completed 08/04/2021 GARDASIL-HPV IMMUNIZATION SERIES Aged Out No longer eligible based on patient's age to complete this topic MENINGOCOCCAL (MENACTRA/MENVEO) Aged Out No longer eligible based on patient's age to complete this topic documented as of this encounter Medical Devices Not on filedocumented as of this encounter Care Teams Registration Clerk Relationship Specialty Start Date End Date Anahy Grayson MD [address] [place] [address] PCP - General Internal Medicine 01/27/22 documented as of this encounter
--- OUTSIDE RECORDS SUMMARY | 2023-08-13 00:22 | External Medical Summary | Summary of Care ---
Author Name Unknown Organization [facility] Address [address] [place] [address] Phone [phone] Care Team Providers Care Maintenance And Utilities Supervisor Name Role Phone Anahy Grayson MD Primary Care Provider [phone] Reason for Visit * Reason Comments eRx-Medication Refill Encounter Details Date Type Department Care Team (Late st Contact Info) Description 03/30/2023 Refill Rheumatology [place] [id number] [employer] [place] [address] Kita Gaston MD [facility] [employer] [place] [address] Raynaud's disease with gangrene (HCC) Allergies No known active allergiesdocumented as of this encounter (statuses as of 03/30/2023) Medications Medication Sig Dispensed Refills Start Date End Date Status Aspirin 81 MG Oral Tablet Delayed Release Take 1 Tablet by mouth in the morning. 0 Active Spiriva Respimat 2.5 MCG/ACT Inhalation Aerosol Solution (Tiotropium [place] Monohydrate) Inhale by mouth 2 Puffs in [...] Oral Tablet (Crestor)Indicati ons:Coronary artery disease involving [place] coronary artery of [place] heart without angina pectoris,HFrEF (heart failure with [...] BEFORE BEDTIME 90 Tablet 2 03/30/2023 Active Sildenafil Citrate 20 MG Oral Tablet [...] Telephone Encounter - Kita Gaston MD - 03/30/2023 4:22 PM EDTSigned Prescriptions: Disp Refills Sildenafil Citrate 20 MG Oral Tablet (Yasmin*90 Tab*2 Sig: TAKE ONE TABLET BY MOUTH EVERY MORNING , 1 TABLET AT NOON AND 2 TABLETS BEFORE BEDTIME Authorizing Provider: KITA GASTON * Telephone Encounter - Caitlin Harris LPN - 03/30/2023 3:20 PM EDTPending Prescriptions: Disp Refills Sildenafil Citrate 20 MG Oral Tablet [Phar*90 Tab*2 Sig: TAKE ONE TABLET BY MOUTH EVERY MORNING , 1 TABLET AT NOON AND 2 TABLETS BEFORE BEDTIME * Telephone Encounter - Diane Alcazar electrotyper helper - 03/30/2023 2:46 PM EDT Pending Prescriptions: Disp Refills Sildenafil Citrate 20 MG Oral Tablet [Phar*90 Tab*2 Sig: TAKE ONE TABLET BY MOUTH EVERY MORNING , 1 TABLET AT NOON AND 2 TABLETS BEFORE BEDTIME * Telephone Encounter - Diane Alcazar electrotyper helper - 03/30/2023 2:45 PM EDT Patient is up to date for office visits. Pending Prescriptions: Disp Refills Sildenafil Citrate 20 MG Oral Tablet (Rev*90 Tab*2 Sig: TAKE ONE TABLET BY MOUTH EVERY MORNING , 1 TABLET AT NOON AND 2 TABLETS BEFORE BEDTIME Last Visit: 01/04/2023 (in office), Visit date not found (telemedicine) Next Visit: 04/06/2023 If no future appointments scheduled, and last appointment is greater than a year ago, please schedule patient for a follow-up appointment Last date the medication was ordered: 12/25 [id number] [address] [facility] Is this request for a controlled substance?No it is not controlled. Urine Drug Screen: Results for orders placed [...] 04/06/2023 2:00 PM EST Office Visit Rheumatology [place] [address] [facility] [place] [address] Rajiv Anderson CRNP [address] [facility] [place] [address] 04/24/2023 12:00 PM EST Scheduled Telephone [facility] [place], [facility] [address] [facility] [place] [address] [facility] Nurse Triage 132 [facility] [place] [address] 06/26/2023 11:30 AM EST Office Visit Cardiology, [facility] [address] [place] [address] Elizabeth Mccann CRNP 400 [facility] [place] [phone] 09/06/2023 3:20 PM EDT Office Visit Neurology [facility] [address] [place] [address] Aparna Ruano PA-C [address] [place] [address] Scheduled Procedures Name Priority Associated Diagnoses Date/Ti me COLONOSCOPY FLEXIBLE PROXIMAL DIAGNOSTIC Recall Colon cancer screening Health Maintenance Due Date Last Done Comments DISCUSS TOBACCO CESSATION (REFER TO SMARTSET #3666) 1965 COVID-19 Vaccine (#1) 02/09/1970 Alpha-1 Antitrypsin [...] D LEVEL ONCE IN A LIFETIME-USE SMARTSET# 35498 Completed 08/04/2021 GARDASIL-HPV IMMUNIZATION SERIES Aged Out No longer eligible based on patient's age to complete this topic MENINGOCOCCAL (MENACTRA/MENVEO) Aged Out No longer eligible based on patient's age to complete this topic documented as of this encounter Medical Devices Not on filedocumented as of this encounter Visit Diagnoses Diagnosis Raynaud's disease with gangrene (HCC) Raynaud's syndrome documented in this encounter Care Teams Maintenance And Utilities Supervisor Relationship Specialty Start Date End Date Anahy Grayson MD [address] [facility] [place] [place] [address] PCP - General Internal Medicine 01/27/22 documented as of this encounter
--- OUTSIDE RECORDS SUMMARY | 2023-08-13 00:22 | External Medical Summary | Summary of Care ---
Author Name Unknown Organization [facility] Address [address] [place] [address] Phone [phone] Care Team Providers Care Branch Operations Manager Name Role Phone Anahy Grayson MD Primary Care Provider [phone] Encounter Details Date Type Department Care Team (Late st Contact Info) Description 03/26/2023 Telephone Cardiology [place] [address] [place] [place] [address] Elizabeth Mccann CRNP 400 [place] [address] Allergies No known active allergiesdocumented as of this encounter (statuses as of 03/29/2023) Medications Medication Sig Dispensed Refills Start Date End Date Status Aspirin 81 MG Oral Tablet Delayed Release Take 1 Tablet by mouth in the morning. 0 Active Spiriva Respimat 2.5 MCG/ACT Inhalation Aerosol Solution (Tiotropium [place] Monohydrate) Inhale by mouth 2 Puffs in [...] Oral Tablet (Crestor)Indications :Coronary artery disease involving [place] coronary artery of [place] heart without angina pectoris,HFrEF (heart failure [...] Active Sarilumab 200 MG/1.14ML Subcutaneous Solution Auto-injector (Vriti Infocomzae27)Indications :Rheumatoid arthritis involving multiple sites with positive [...] as of this encounter (statuses as of 03/29/2023) Active Problems Problem Noted Date Diagnosed Date Food insecurity 01/08/2023 Overview: Per [facility] Protocol Senile osteoporosis 01/04/2023 Lung nodules [...] Rx Exacerbation plan o 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 Scr slightly bumped and BUN elevated. Patient reports over the last week some weight gain/edema. Reports highest weight last week was 190lbs. Reports yesterday down to 187 lbs and edema improved. Reports 187 is his baseline. Reports his typical lasix dose is 40 mg daily. Has taken 80 mg the last 3 days. This likely explains increase in Scr. He will resume lasix 40 mg daily today since he is at his baseline weight. Gwendolyn Patino Pharm D Clinical Pharmacist Cardiology 03/29/2023,9:31 AM * Telephone Encounter - Minnie Lopez OSA - 03/26/2023 11:05 AM EDT Patient asking for cardiac labs to be ordered documented in this encounter Plan of Treatment Upcoming Encounters Date Type Department Care Team (Late st Contact Info) Description 04/06/2023 2:00 PM EST Office Visit Rheumatology [place] [id number] [facility] [place] [address] Rajiv Anderson CRNP 25[address] [facility] [place] [address] 04/24/2023 12:00 PM EST Scheduled Telephone [facility], [facility] 132 [facility] [place] [address] [facility] Nurse Triage 132 [facility] [place] [address] 06/26/2023 11:30 AM EST Office Visit Cardiology, [facility] 132 [facility] [place] [address] Elizabeth Mccann CRNP [address] [place] [phone] 09/06/2023 3:20 PM EDT Office Visit Neurology [address] [place] [address] [place] [address] Aparna Ruano PA-C [address] [place] [address] Scheduled Procedures Name Priority Associated Diagnoses Date/Ti me COLONOSCOPY FLEXIBLE PROXIMAL DIAGNOSTIC Recall Colon cancer screening Health Maintenance Due Date Last Done Comments DISCUSS TOBACCO CESSATION (REFER TO SMARTSET #2534) 1965 COVID-19 Vaccine (#1) 02[birth year]/1969 Alpha-1 Antitrypsin [...] D LEVEL ONCE IN A LIFETIME-USE SMARTSET# 47885 Completed 08/04/2021 GARDASIL-HPV IMMUNIZATION SERIES Aged Out No longer eligible based on patient's age to complete this topic MENINGOCOCCAL (MENACTRA/MENVEO) Aged Out No longer eligible based on patient's age to complete this topic documented as of this encounter Medical Devices Not on filedocumented as of this encounter Care Teams Branch Operations Manager Relationship Specialty Start Date End Date Anahy Grayson MD [address] [place] [address] PCP - General Internal Medicine 01/27/22 documented as of this encounter
--- OUTSIDE RECORDS SUMMARY | 2023-08-13 00:23 | External Medical Summary | Summary of Care ---
Author Name Unknown Organization [facility] Address [address] [place] [address] Phone [phone] Care Team Providers Care Pain Management Physician Name Role Phone Anahy Grayson MD Primary Care Provider [phone] Encounter Details Date Type Department Care Team (Late st Contact Info) Description 03/26/2023 Telephone Cardiology [place] [address] [place] [address] [place] [address] Elizabeth Mccann CRNP 400 [place] [address] Allergies No known active allergiesdocumented as of this encounter (statuses as of 03/29/2023) Medications Medication Sig Dispensed Refills Start Date End Date Status Aspirin 81 MG Oral Tablet Delayed Release Take 1 Tablet by mouth in the morning. 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 Scoliosis 06/23/2022 SVT [...] Notes * Telephone Encounter - Gwendolyn Patino, [facility] - 03/29/2023 9:30 AM EDT [...] Care Team (Late st Contact Info) Description 03/29/2023 2:00 PM EDT Imaging Radiology [address] 132 [facility] [place] [address] 04/06/2023 2:00 PM EST Office Visit Rheumatology [address] [place] [address] Rajiv Anderson CRNP [facility]0 [facility] [place] [address] 04/24/2023 12:00 PM EST Scheduled Telephone [facility], [facility] 132 [facility] [place] [address] [facility] Nurse Triage [address] [facility] [place] [address] 06/26/2023 11:30 AM EST Office Visit Card[facility], [facility] 132 [facility] [place] [address] Elizabeth Mccann CRNP [address] [place] [phone] 09/06/2023 3:20 PM EDT Office Visit Neurology [facility] [address] [place] [address] Aparna Ruano PA-C [address] [place] [address] Scheduled Procedures Name Priority Associated Diagnoses Date/Ti me COLONOSCOPY FLEXIBLE PROXIMAL DIAGNOSTIC Recall Colon cancer screening Health Maintenance Due Date Last Done Comments DISCUSS TOBACCO CESSATION (REFER TO SMARTSET #9773) 1965 COVID-19 Vaccine (#1) 02/09/1970 Alpha-1 Antitrypsin [...] D LEVEL ONCE IN A LIFETIME-USE SMARTSET# 75022 Completed 08/04/2021 GARDASIL-HPV IMMUNIZATION SERIES Aged Out No longer eligible based on patient's age to complete this topic MENINGOCOCCAL (MENACTRA/MENVEO) Aged Out No longer eligible based on patient's age to complete this topic documented as of this encounter Medical Devices Not on filedocumented as of this encounter Care Teams Pain Management Physician Relationship Specialty Start Date End Date Anahy Grayson MD [address] [place] [address] PCP - General Internal Medicine 01/27/22 documented as of this encounter
--- OUTSIDE RECORDS SUMMARY | 2023-08-13 00:23 | External Medical Summary | Summary of Care ---
Author Name Unknown Organization [facility] Address [address] [place] [address] Phone [phone] Care Team Providers Care Website Designer Name Role Phone Anahy Grayson MD Primary Care Provider [phone] Reason for Visit * Reason Comments Outpatient Testing Encounter Details Date Type Department Care Team (Late st Contact Info) Description 03/28/2023 1:30 PM EDT Laboratory Laboratory, [place] [address] [place] [address] [facility] [address] [place] [address] Rheumatoid arthritis involving multiple sites with positive rheumatoid factor (HCC); Encounter for long-term (current) use of medications; Memory changes Allergies No known active allergiesdocumented as of this encounter (statuses as of 03/28/2023) Medications Medication Sig Dispensed Refills Start Date End Date Status Aspirin 81 MG Oral Tablet Delayed Release Take 1 Tablet by mouth in the morning. 0 Active Spiriva Respimat 2.5 MCG/ACT Inhalation Aerosol Solution (Tiotropium [place] Monohydrate) Inhale by mouth 2 Puffs in [...] Oral Tablet (Crestor)Indications :Coronary artery disease involving nav[place] coronary artery of navajo heart without angina pectoris,HFrEF (heart failure with reduced ejection fraction) ([facility]),HTN, goal below 140/90,Dyslipidemia, goal LDL below 70,Palpitations [...] (Revatio)Indications :Raynaud's disease with gangrene ([facility]) [...] as of this encounter (statuses as of 03/28/2023) Active Problems Problem Noted Date Diagnosed Date [...] as of this encounter (statuses as of 03/28/2023) Resolved Problems Problem Noted Date Diagnosed Date [...] as of this encounter (statuses as of 03/28/2023) Immunizations Name Administration Dates Next Due HepA [...] Description 03/29/2023 2:00 PM EDT Imaging Radiology [facility] 1st [facility] 132 [facility] [place] [address] 04/06/2023 2:00 PM EST Office Visit Rheumatology [address] [place] [address] Rajiv Anderson CRNP 2520 [facility] [place] [address] 04/24/2023 12:00 PM EST Scheduled Telephone [facility], [facility] 132 [facility] [place] [address] [facility] Nurse Triage 132 [facility] [place] [address] 06/26/2023 11:30 AM EST Office Visit Cardiology, [facility] 132 [facility] [place] [address] Elizabeth Mccann CRNP 400 [facility] [place] [phone] 09/06/2023 3:20 PM EDT Office Visit Neurology [facility] 200 [facility] [place] [address] Aparna Ruano PA-C 200 [facility] [place] [address] Pending Results Name Type Priority Associated Diagnoses Date /Time CBC WITH WBC DIFFERENTIAL Lab Routine Rheumatoid arthritis involving multiple sites with positive rheumatoid factor (HCC) Encounter for long-term (current) use of medications 03/28/2023 1:39 PM EDT COMPREHENSIVE METABOLIC PANEL Lab Routine Rheumatoid arthritis involving multiple sites with positive rheumatoid factor (HCC) Encounter for long-term (current) use of medications 03/28/2023 1:39 PM EDT VITAMIN B1 (THIAMINE), BLOOD, LC/MS/MS Lab Routine Memory changes 03/28/2023 1:39 PM EDT CBC Lab Routine Rheumatoid arthritis involving multiple sites with positive rheumatoid factor (HCC) Encounter for long-term (current) use of medications 03/28/2023 1:39 PM EDT DIFFERENTIAL, AUTOMATED Lab Routine Rheumatoid arthritis involving multiple sites with positive rheumatoid factor (HCC) Encounter for long-term (current) use of medications 03/28/2023 1:39 PM EDT Scheduled Procedures Name Priority Associated Diagnoses Date/Ti me COLONOSCOPY FLEXIBLE PROXIMAL DIAGNOSTIC Recall Colon cancer screening Health Maintenance Due Date Last Done Comments DISCUSS TOBACCO CESSATION (REFER TO SMARTSET #2876) 1965 COVID-19 Vaccine (#1) 02/09/1969 Alpha-1 Antitrypsin [...] or PCV20) 02/11/2025 02/12/2020, 03/21/2019 Diabetes Screening 11/16/2025 11/16/2022, 0 10/13/2022, 08/28/2022, Additional history exists Colonoscopy 07/24/2027 07/24/2017, 07/24/2017 Colorectal Cancer Screening 07/24/2027 Lipid Panel 08/29/2027 08/28/2022, 07/26, 06/06/2021, Additional history exists DTaP,Tdap,and Td Vaccines (2 - Td or Tdap) 02/11/2030 02/12/2020, 03/28/2007 Hepatitis B Completed 05/27/2019, 09/25, 08/26/2018 VITAMIN D LEVEL ONCE IN A LIFETIME-USE SMARTSET# 77417 Completed 08/04/2021 GARDASIL-HPV IMMUNIZATION SERIES Aged Out [...] for long-term (current) use of other medications Memory changes Memory loss documented in this encounter Care Teams Website Designer Relationship Specialty Start Date End Date Anahy Grayson MD [address] [place] [address] PCP - General Internal Medicine 01/27/22 documented as of this encounter
--- OUTSIDE RECORDS SUMMARY | 2023-08-13 00:23 | External Medical Summary ---
Author Name Unknown Address Unknown Organization [id number]:[facility] [place] [address] [place] [address] Laboratory Report Ordering Provider Test Date Status MARLENI ONTIVEROS 03/28/2023 13:39:12 Final Observation Date Value Abnormality Reference (Units ) Status Vitamin B12 03/28/2023 13:39:12 [phone] (pg/mL) Final Performing Location [facility] - [address] [place] [address]
--- OUTSIDE RECORDS SUMMARY | 2023-08-13 00:23 | External Medical Summary ---
Author Name Unknown Address Unknown Organization [id number]:[facility] [place] [address] [place] [address] Laboratory Report Ordering Provider Test Date Status ALEK EAST 03/28/2023 13:39:12 Final Observation Date Value Abnormality Reference (Units ) Status Ovalocytes [Presence] in Blood by Light microscopy 03/28/2023 13:39:12 Moderate Abnormal None Seen Final Performing Location [facility] - [address] [place] [address]
--- OUTSIDE RECORDS SUMMARY | 2023-08-13 00:23 | External Medical Summary ---
Author Name Unknown Address Unknown Organization [id number]:[facility] [place] - [address] [place] [address] Laboratory Report Ordering Provider Test Date Status MARLENI ONTIVEROS 03/28/2023 13:39:12 Final Observation Date Value Abnormality Reference (Units ) Status Folic Acid 03/28/2023 13:39:12 9.1 >4.5 (ng/ mL) Final Performing Location [facility] - [address] [place] [address]
--- OUTSIDE RECORDS SUMMARY | 2023-08-13 00:23 | External Medical Summary ---
Author Name Unknown Address Unknown Organization K01:[facility] [place] - [facility] [address] [facility] [address] [place] [address] Laboratory Report Ordering Provider Test Date Status ALEK EAST 03/28/2023 13:39:12 Final Observation Date Value Abnormality Reference (Units ) Status WBC, Total 03/28/2023 13:39:12 7.34 4.00-10.80 (K/uL) Final RBC 03/28/2023 13:39:12 5.74 4.50-5.25 (M/uL) Final Hemoglobin 03/28/2023 13:39:12 16.0 14.0-16.8 (g/dL) Final HCT 03/28/2023 13:39:12 53.8 Above high normal 40.0-48.4 (%) Final MCV 03/28/2023 13:39:12 93.7 82.0-99.5 (fL) Final MCH 03/28/2023 13:39:12 27.9 27.0-34.0 (pg) Final MCHC 03/28/2023 13:39:12 29.7 32.0-36.0 (g/dL) Final RDW 03/28/2023 13:39:12 18.4 11.5-15.5 (%) Final Platelets 03/28/2023 13:39:12 313 140-400 (K/uL) Final MPV 03/28/2023 13:39:12 10.7 6.6-11.1 (fL) Final Nucleated erythrocytes/100 leukocytes [Ratio] in Blood by Automated count 03/28/2023 13:39:12 0 <=0 (/100 WBCs) Final Performing Location [facility] [place] - [address] [place] [address]
--- OUTSIDE RECORDS SUMMARY | 2023-08-13 00:23 | External Medical Summary ---
Author Name Unknown Address Unknown Organization K01:[facility]ORY [facility] [place] - 100 [facility] [place] [address] Laboratory Report Ordering Provider Test Date Status ALEK EAST 03/28/2023 13:39:12 Final Observation Date Value Abnormality Reference (Units ) Status BUN 03/28/2023 13:39:12 33 Above high normal 6-20 (mg/dL) Final Creatinine 03/28/2023 13:39:12 1.3 Above high normal 0.6-1.2 (mg/dL) Final Glomerular filtration rate/1.73 sq M.predicted [Volume Rate/Area] in Serum, Plasma or Blood by Creatinine-based formula (CKD-EPI) 03/28/2023 13:39:12 66 >=60 (mL/min) Final eGFR is calculated based on the CKD-EPI 2020 equation SODIUM 03/28/2023 13:39:12 138 135-146 (m mol/L) Final Potassium 03/28/2023 13:39:12 4.4 3.5-5.1 (m mol/L) Final Cl 03/28/2023 13:39:12 99 98-107 (mm ol/L) Final CO2 03/28/2023 13:39:12 27 22-32 (mmo l/L) Final Anion gap 03/28/2023 13:39:12 12 7-15 (mmol /L) Final Glucose 03/28/2023 13:39:12 99 70-120 (mg /dL) Final Albumin 03/28/2023 13:39:12 4.2 3.8-5.0 (g /dL) Final AST (Aspartate aminotransferase) 03/28/2023 13:39:12 18 10-50 (U/L) Final Alk Phos 03/28/2023 13:39:12 97 35-130 (U/ L) Final Bilirubin, Total 03/28/2023 13:39:12 0.3 <=1 .2 (mg/dL) Final Calcium 03/28/2023 13:39:12 9.9 8.4-10.2 ( mg/dL) Final Protein 03/28/2023 13:39:12 6.6 6.0-8.3 (g /dL) Final ALT (Alanine aminotransferase) 03/28/2023 13:39:12 20 10-50 (U/L) Final Performing Location LABORATORY [facility] - [facility] [address] [facility] [address]
--- OUTSIDE RECORDS SUMMARY | 2023-08-13 00:23 | External Medical Summary ---
Author Name Unknown Address Unknown Organization K01[place] [place] 100 [facility] [place] [address] Laboratory Report Ordering Provider Test Date Status ALEK EAST 03/28/2023 13:39:12 Final Observation Date Value Abnormality Reference (Units ) Status SYNC LEUKOCYTES IN BLOOD BY AUTOMATED COUNT 03/28/2023 13:39:12 7.34 4.00-10.80 (K/uL) Final Segs 03/28/2023 13:39:12 56.0 40.0-75.0 (%) Final Lymphs % 03/28/2023 13:39:12 25.1 18.0-42.0 (%) Final Monos 03/28/2023 13:39:12 12.8 Above high normal 1.0-11.0 (%) Final Eosinophils 03/28/2023 13:39:12 4.5 0.0-6.0 (%) Final Basos 03/28/2023 13:39:12 1.2 0.0-2.0 (%) Final Immature Granulocyte, Percent 03/28/2023 13:39:12 0.4 0.0-2.0 (%) Final Absolute Segs 03/28/2023 13:39:12 4.11 1.80-7.70 (K/uL) Final Lymphs, absolute 03/28/2023 13:39:12 1.84 1.00-4.80 (K/ul) Final Monos, Abs 03/28/2023 13:39:12 0.94 0.00-1.10 (K/uL) Final Eos, Abs 03/28/2023 13:39:12 0.33 0.00-0.70 (K/uL) Final Basos, Abs 03/28/2023 13:39:12 0.09 0.00-0.20 (K/uL) Final Immature Granulocytes, Number 03/28/2023 13:39:12 0.03 0.00-0.20 (K/uL) Final Performing Location [facility] [place] [facility] [address] [facility] [address]
--- OUTSIDE RECORDS SUMMARY | 2023-08-13 00:24 | External Medical Summary | Summary of Care ---
Author Name Unknown Organization [facility] Address [address] [facility] [place] [address] Phone [phone] Care Team Providers Care Communications Attendant Name Role Phone Anahy Grayson MD Primary Care Provider [phone] Reason for Visit * Reason Onset Date Comments [facility]: Maintenance 03/22/2023 Encounter Details Date Type Department Care Team (Late st Contact Info) Description 03/22/2023 12:30 PM EDT Scheduled Telephone [facility], [facility] 132 [facility] [place] [address] [facility] Nurse Triage 132 [employer] [place] [address] Allergies No known active allergiesdocumented as of this encounter (statuses as of 03/22/2023) Medications Medication Sig Dispensed Refills Start Date End Date Status Aspirin 81 MG Oral Tablet Delayed Release Take 1 Tablet by mouth in the morning. 0 Active Spiriva Respimat 2.5 MCG/ACT Inhalation Aerosol Solution (Tiotropium [place] Monohydrate) Inhale by mouth 2 Puffs in the morning. 4 g 11 03/21/2022 Active Medical Compression StockingsIndication s:Edema, unspecified type,Chronic systolic heart failure (HCC) 20-30 mm Hg below the knee 1 Each 0 05/15/2022 Active Furosemide 20 MG Oral Tablet (Lasix)Indications: HFrEF (heart failure with reduced ejection fraction) ([facility]) Take 2 Tablets by mouth [...] Oral Tablet (Crestor)Indication s:Coronary artery disease involving [place] coronary artery of [place] heart without angina pectoris,HFrEF (heart failure with reduced ejection fraction) ([facility]),HTN, goal below 140/90,Dyslipidemia , goal [...] Active Sarilumab 200 MG/1.14ML Subcutaneous Solution Auto-injector (Kevzara)Indication s:Rheumatoid arthritis involving multiple sites with positive rheumatoid factor (HCC) Inject 1.14 mL under the skin every 14 days. 2.28 mL 11 03/05/2023 Active Amoxicillin-Pot Clavulanate 875-125 MG Oral Tablet (Augmentin) Take 1 Tablet by mouth in the morning and 1 Tablet before bedtime. Do all this for 10 days. 20 Tablet 0 03/12/2023 03/22/2023 Active Omeprazole 40 MG Oral Capsule Delayed Release (PriLOSEC) Take 1 Capsule by mouth in the morning. 1 hour before the first meal of the day.. 90 Capsule 3 03/15/2023 Active HYDROcodone-Acetami nophen 10-325 MG Oral Tablet Take 1 Tablet by mouth every 6 hours as needed for Pain, Severe. 90 Tablet 0 03/17/2023 Active HYDROcodone-Acetami nophen 10-325 MG Oral Tablet Take 1 Tablet by mouth every 6 hours as needed for Pain, Severe. 90 Tablet 0 03/19/2023 Active documented as of this encounter (statuses as of 03/22/2023) Active Problems Problem Noted Date Diagnosed Date [...] dose Rx Exacerbation plan o Chest Xray longterm systemic steroid user 06/23/2022 Scoliosis 06/23/2022 SVT [...] as of this encounter (statuses as of 03/22/2023) Resolved Problems Problem Noted Date Diagnosed Date [...] as of this encounter (statuses as of 03/22/2023) Immunizations Name Administration Dates Next Due HepA [...] Telephone Encounter - Lizette Christianson RN - 03/22/2023 12:03 PM EDT [facility] [employer] Visit Date: 03/22/2023 Time: 12:04 PM Name: Harrison Morgan : 1965 Follow up call to Harrison, agreed to telephonic assessment, aware that call is being recorded for training purposes Problems/Symptoms: HPI: Harrison reports feeling better today, weight this morning was 190.1lbs, did not take double Lasix(80MG) yesterday, will take Lasix 80mg today, weight is up 2.2 lbs, asymptomatic Constitutional: no weight loss, no weakness, and fatigue at baseline Resp: no cough, no sputum, no wheezing, and + dyspnea with exertion Cardiac: no chest pain, no orthopnea, no dyspnea on exertion, no PND, no claudication, no palpitations, and + mild edema to ble's, improved since yesterday GI: no pain, no heartburn, no diarrhea, no constipation, no blood/melena, no nausea, no vomiting Musculoskeletal: no swelling and + RA Neuro: no weakness, no falling, no numbness or tingling, no vertigo, and + memory loss forgetful attimes Will follow up with phone call tomorrow to make sure weight is decreasing and taking diuretics as prescribed Lizette Christianson RN 03/22/2023 documented in this encounter Plan of Treatment Upcoming Encounters Date Type Department Care Team (Late st Contact Info) Description 03/23/2023 2:00 PM EDT Scheduled Telephone [facility], [facility] 132 [place] [address] [facility] Nurse Triage 132 [place] [address] 03/29/2023 2:00 PM EDT Imaging Radiology [facility] 1st [facility] [place] 132 [place] [address] 04/06/2023 2:00 PM EST Office Visit Rheumatology [place] [id number] [facility] [place] [address] Rajiv Anderson CRNP [address] [place] [address] [place] [address] 04/24/2023 12:00 PM EST Scheduled Telephone [facility], [facility] 132 [facility] [place] [address] [facility] Nurse Triage 132 [facility] [place] [address] 06/26/2023 11:30 AM EST Office Visit Cardiology, [facility] 132 [facility] [place] [address] Elizabeth Mccann CRNP 400 [facility] [place] [phone] 09/06/2023 3:20 PM EDT Office Visit Neurology [facility] 200 [facility] [place] [address] Aparna Ruano PA-C [address] [place] [address] Scheduled Procedures Name Priority Associated Diagnoses Date/Ti me COLONOSCOPY FLEXIBLE PROXIMAL DIAGNOSTIC Recall Colon cancer screening Health Maintenance Due Date Last Done Comments DISCUSS TOBACCO CESSATION (REFER TO SMARTSET #5667) 1965 COVID-19 Vaccine (#1) 02/09/1969 Alpha-1 Antitrypsin [...] D LEVEL ONCE IN A LIFETIME-USE SMARTSET# [id number] Completed 08/04/2021 GARDASIL-HPV IMMUNIZATION SERIES Aged Out No longer eligible based on patient's age to complete this topic MENINGOCOCCAL (MENACTRA/MENVEO) Aged Out No longer eligible based on patient's age to complete this topic documented as of this encounter Medical Devices Not on filedocumented as of this encounter Care Teams Communications Attendant Relationship Specialty Start Date End Date Anahy Grayson MD [address] [place] [address] PCP - General Internal Medicine 01/27/22 documented as of this encounter
--- OUTSIDE RECORDS SUMMARY | 2023-08-13 00:24 | External Medical Summary | Summary of Care ---
Author Name Unknown Organization [facility] Address [address] [place] [place] [address] Phone [phone] Care Team Providers Care Coffee Weigher Name Role Phone Anahy Grayson MD Primary Care Provider [phone] Reason for Visit * Reason Onset Date Comments Follow Up 03/24/2023 Encounter Details Date Type Department Care Team (Late st Contact Info) Description 03/24/2023 11:30 AM EDT Scheduled Telephone [facility], [facility] 132 [place] [address] [facility], Nurse [facility] 132 [place] [address] Allergies No known active allergiesdocumented as of this encounter (statuses as of 03/24/2023) Medications Medication Sig Dispensed Refills Start Date End Date Status Aspirin 81 MG Oral Tablet Delayed Release Take 1 Tablet by mouth in the morning. 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 States he did not weigh this morning. Stomach is a littleupset this am. Attributes it to having a cheeseburger and blooming onion last night for supper. Encouraged to take an antacid to see if symptoms improve. Reports no edema to RLE Edema LLE but has not worsened. Patient to weigh tomorrow morning. Will place on for phone call for follow up. documented in this encounter Plan of Treatment Upcoming Encounters Date Type Department Care Team (Late st Contact Info) Description 03/25/2023 12:00 PM EDT Scheduled Telephone [facility], [facility] 132 [facility] [place] [address] [facility], Nurse [facility] 132 [facility] [place] [address] 03/29/2023 2:00 PM EDT Imaging Radiology [address] 132 [place] [address] 04/06/2023 2:00 PM EST Office Visit Rheumatology [address] [place] [address] Rajiv Anderson CRNP [facility] [place] [address] 04/24/2023 12:00 PM EST Scheduled Telephone [facility], [facility] 132 [place] [address] [facility] [address] [place] [address] [place] [address] 06/26/2023 11:30 AM EST Office Visit Cardiology, [facility] [address] [place] [address] Elizabeth Mccann CRNP [address] [place] [phone] 09/06/2023 3:20 PM EDT [facility] [address] [place] [address] Aparna Ruano PA-C [address] [place] [address] Scheduled Procedures Name Priority Associated Diagnoses Date/Ti me COLONOSCOPY FLEXIBLE PROXIMAL DIAGNOSTIC Recall Colon cancer screening Health Maintenance Due Date Last Done Comments DISCUSS TOBACCO CESSATION (REFER TO SMARTSET #7950) 1965 COVID-19 Vaccine (#1) 02/09/1969 Alpha-1 Antitrypsin [...] D LEVEL ONCE IN A LIFETIME-USE SMARTSET# 73771 Completed 08/04/2021 GARDASIL-HPV IMMUNIZATION SERIES Aged Out No longer eligible based on patient's age to complete this topic MENINGOCOCCAL (MENACTRA/MENVEO) Aged Out No longer eligible based on patient's age to complete this topic documented as of this encounter Medical Devices Not on filedocumented as of this encounter Care Teams Coffee Weigher Relationship Specialty Start Date End Date Anahy Grayson MD [address] [place] [address] PCP - General Internal Medicine 01/27/22 documented as of this encounter
--- OUTSIDE RECORDS SUMMARY | 2023-08-13 00:24 | External Medical Summary | Summary of Care ---
Author Name Unknown Organization [facility] Address [address] [place] [address] Phone [phone] Care Team Providers Care Medical Management Specialist Name Role Phone Anahy Grayson MD Primary Care Provider [phone] Reason for Visit * Reason Onset Date Comments [facility]: Maintenance 03/26/2023 Encounter Details Date Type Department Care Team (Late st Contact Info) Description 03/26/2023 Telephone [facility], [facility] [address] [facility] [place] [address] [facility], Nurse [facility] [address] [place] [facility] [place] [address] [facility]: Maintenance Allergies No known active allergiesdocumented as of this encounter (statuses as of 03/26/2023) Medications Medication Sig Dispensed Refills Start Date End Date Status Aspirin 81 MG Oral Tablet Delayed Release Take 1 Tablet by mouth in the morning. 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 when she has time to schedule visit Pt's weight today is 187.9 lb down from 190.1 on 03/22 DTP finished yesterday Pt reports he feels better Reports 187 lb is his baseline Denies increased SOB Edema in feet has improved Trying to adhere to sodium and fluid restrictions better Pt has no other complaints today TT to RNCM with pt's message documented in this encounter Plan of Treatment Upcoming Encounters Date Type Department Care Team (Late st Contact Info) Description 03/29/2023 2:00 PM EDT Imaging Radiology [facility] 1st [facility] 132 [facility] [place] [address] 04/06/2023 2:00 PM EST Office Visit Rheumatology [place] [id number] [facility] [place] [address] Rajiv Anderson CRNP [address] [place] [address] 04/24/2023 12:00 PM EST Scheduled Telephone [facility], [facility] 132 [facility] [place] [address] [facility] Nurse Triage [address] [place] [address] 06/26/2023 11:30 AM EST Office Visit Cardiology, [facility] [address] [place] [address] Elizabeth Mccann CRNP [address] [place] [address] 09/06/2023 3:20 PM EDT Office Visit Neurology Ivone Johnston [place] 200 [facility] [place] [address] Aparna Ruano PA-C [address] [place] [address] Scheduled Procedures Name Priority Associated Diagnoses Date/Ti me COLONOSCOPY FLEXIBLE PROXIMAL DIAGNOSTIC Recall Colon cancer screening Health Maintenance Due Date Last Done Comments DISCUSS TOBACCO CESSATION (REFER TO SMARTSET #8832) 1965 COVID-19 Vaccine (#1) 02/09/1969 Alpha-1 Antitrypsin [...] D LEVEL ONCE IN A LIFETIME-USE SMARTSET# 15135 Completed 08/04/2021 GARDASIL-HPV IMMUNIZATION SERIES Aged Out No longer eligible based on patient's age to complete this topic MENINGOCOCCAL (MENACTRA/MENVEO) Aged Out No longer eligible based on patient's age to complete this topic documented as of this encounter Medical Devices Not on filedocumented as of this encounter Care Teams Medical Management Specialist Relationship Specialty Start Date End Date Anahy Grayson MD [address] [place] [address] PCP - General Internal Medicine 01/27/22 documented as of this encounter
--- OUTSIDE RECORDS SUMMARY | 2023-08-13 00:24 | External Medical Summary | Summary of Care ---
Author Name Unknown Organization [facility] Address [address] [facility] [address] Phone [phone] Care Team Providers Care Orthopedic Nurse Practitioner Name Role Phone Anahy Grayson MD Primary Care Provider [phone] Reason for Visit * Reason Onset Date Comments [facility]: Maintenance 03/23/2023 Encounter Details Date Type Department Care Team (Late st Contact Info) Description 03/23/2023 2:00 PM EDT Scheduled Telephone [facility], [facility] 132 [facility] [place] [address] [facility] Nurse Triage [address] [facility] [place] [address] Allergies No known active allergiesdocumented as of this encounter (statuses as of 03/23/2023) Medications Medication Sig Dispensed Refills Start Date End Date Status Aspirin 81 MG Oral Tablet Delayed Release Take 1 Tablet by mouth in the morning. 0 Active Spiriva Respimat 2.5 MCG/ACT Inhalation Aerosol Solution (Tiotropium [place] Monohydrate) Inhale by mouth 2 Puffs in the morning. 4 g 11 03/21/2022 Active Medical Compression StockingsIndications :Edema, unspecified type,Chronic systolic heart failure (HCC) 20-30 mm Hg below the knee 1 Each 0 05/15/2022 Active Furosemide 20 MG Oral Tablet (Lasix)Indications:H FrEF (heart failure with reduced ejection fraction) ([facility]) Take 2 Tablets by mouth in [...] MG Oral Tablet (Apixaban)Indication s:Persistent atrial fibrillation ([facility]) TAKE ONE TABLET BY MOUTH 2 TIMES [...] Oral Tablet (Crestor)Indications :Coronary artery disease involving [place] coronary artery of [place] heart without angina pectoris,HFrEF (heart failure with reduced ejection fraction) ([facility]),HTN, goal below 140/90,Dyslipidemia, goal LDL below 70,Palpitations [...] as of this encounter (statuses as of 03/23/2023) Active Problems Problem Noted Date Diagnosed Date [...] as of this encounter (statuses as of 03/23/2023) Resolved Problems Problem Noted Date Diagnosed Date [...] as of this encounter (statuses as of 03/23/2023) Immunizations Name Administration Dates Next Due HepA [...] Telephone Encounter - Lizette Christianson RN - 03/23/2023 11:09 AM EDT [facility] Cosmetic Surgeon Monthly Visit Date: 03/23/2023 Time: 11:09 AM Name: Harrison Morgan : 1965 Several follow up calls to Harrison, no answer, left message requesting a call back. Follow up phone call scheduled for tomorrow to assess weight Lizette A Sammy, RN 03/23/2023 documented in this encounter Plan of Treatment Upcoming Encounters Date Type Department Care Team (Late st Contact Info) Description 03/24/2023 11:30 AM EDT Scheduled Telephone [facility], [address] [place] [address] [facility], Nurse [facility] 132 [facility] [place] [address] 03/29/2023 2:00 PM EDT Imaging Radiology [address] [place] [address] 04/06/2023 2:00 PM EST Office Visit Rheumatology [address] [place] [address] Rajiv Anderson CRNP [address] [place] [address] [place] [address] 04/24/2023 12:00 PM EST Scheduled Telephone [facility], [place] [address] [place] [address] [facility] Nurse Triage [address] [place] [address] [place] [address] 06/26/2023 11:30 AM EST Office Visit Cardiology, [facility] 132 [facility] [place] [address] Elizabeth Mccann CRNP [address] [place] [phone] 09/06/2023 3:20 PM EDT Office Visit Neurology Ivone Johnston [place] [address] [place] [address] Aparna Ruano PA-C [address] [place], [place] [address] Scheduled Procedures Name Priority Associated Diagnoses Date/Ti me COLONOSCOPY FLEXIBLE PROXIMAL DIAGNOSTIC Recall Colon cancer screening Health Maintenance Due Date Last Done Comments DISCUSS TOBACCO CESSATION (REFER TO SMARTSET #3635) 1965 COVID-19 Vaccine (#1) 02/09/1969 Alpha-1 Antitrypsin [...] D LEVEL ONCE IN A LIFETIME-USE SMARTSET# [id number] Completed 08/04/2021 GARDASIL-HPV IMMUNIZATION SERIES Aged Out No longer eligible based on patient's age to complete this topic MENINGOCOCCAL (MENACTRA/MENVEO) Aged Out No longer eligible based on patient's age to complete this topic documented as of this encounter Medical Devices Not on filedocumented as of this encounter Care Teams Orthopedic Nurse Practitioner Relationship Specialty Start Date End Date Anahy Grayson MD [address] [place] [address] PCP - General Internal Medicine 01/27/22 documented as of this encounter
--- OUTSIDE RECORDS SUMMARY | 2023-08-13 00:24 | External Medical Summary | Summary of Care ---
Author Name Unknown Organization [facility] Address [address] [place] [facility] [place] [address] Phone [phone] Care Team Providers Care Boiler/Chiller Operator Name Role Phone Anahy Grayson MD Primary Care Provider [phone] Reason for Visit * Reason Onset Date Comments Follow Up 03/25/2023 Encounter Details Date Type Department Care Team (Late st Contact Info) Description 03/25/2023 12:00 PM EDT Scheduled Telephone [facility], [facility] 132 [place] [address] [facility], Nurse [facility] 132 [place] [address] Allergies No known active allergiesdocumented as of this encounter (statuses as of 03/25/2023) Medications Medication Sig Dispensed Refills Start Date End Date Status Aspirin 81 MG Oral Tablet Delayed Release Take 1 Tablet by mouth in the morning. 0 Active Spiriva Respimat 2.5 MCG/ACT Inhalation Aerosol Solution (Tiotropium [place] Monohydrate) Inhale by mouth 2 Puffs in [...] Oral Tablet (Crestor)Indications :Coronary artery disease involving [place] coronary artery of [place] heart without angina pectoris,HFrEF (heart failure with [...] as of this encounter (statuses as of 03/25/2023) Active Problems Problem Noted Date Diagnosed Date [...] as of this encounter (statuses as of 03/25/2023) Resolved Problems Problem Noted Date Diagnosed Date [...] as of this encounter (statuses as of 03/25/2023) Immunizations Name Administration Dates Next Due HepA [...] Telephone Encounter - Mirtha Saldaña RN - 03/25/2023 9:26 AM EDT Phone call to patient for follow up- weight? Message left for return call. [phone]# provided for call back. documented in this encounter Plan of Treatment Upcoming Encounters Date Type Department Care Team ([facility] st Contact Info) Description 03/29/2023 2:00 PM EDT Imaging Radiology [facility] 1st [facility] 132 [facility] [place] [address] 04/06/2023 2:00 PM EST Office Visit Rheumatology [facility] 25[address] [facility] [place] [address] Rajiv Anderson CRNP [address] [facility] [place] [address] 04/24/2023 12:00 PM EST Scheduled Telephone [facility], [facility] 132 [facility] [place] [address] [facility] Nurse Triage 132 [facility] [place] [address] 06/26/2023 11:30 AM EST Office Visit Cardiology, [facility] 132 [facility] [place] [address] Elizabeth Mccann CRNP 400 [facility] [place] [address] 09/06/2023 3:20 PM EDT Office Visit Neurology [facility] 200 [facility] [place] [address] Aparna Ruano PA-C 200 [facility] [place] [address] Scheduled Procedures Name Priority Associated Diagnoses Date/Ti me COLONOSCOPY FLEXIBLE PROXIMAL DIAGNOSTIC Recall Colon cancer screening Health Maintenance Due Date Last Done Comments DISCUSS TOBACCO CESSATION (REFER TO SMARTSET #6359) 1965 COVID-19 Vaccine (#1) 02/09/1969 Alpha-1 Antitrypsin [...] D LEVEL ONCE IN A LIFETIME-USE SMARTSET# [id number] Completed 08/04/2021 GARDASIL-HPV IMMUNIZATION SERIES Aged Out No longer eligible based on patient's age to complete this topic MENINGOCOCCAL (MENACTRA/MENVEO) Aged Out No longer eligible based on patient's age to complete this topic documented as of this encounter Medical Devices Not on filedocumented as of this encounter Care Teams Boiler/Chiller Operator Relationship Specialty Start Date End Date Anahy Grayson MD [address] [facility] [place] [address] PCP - General Internal Medicine 01/27/22 documented as of this encounter
--- OUTSIDE RECORDS SUMMARY | 2023-08-13 00:25 | External Medical Summary | Summary of Care ---
Author Name Unknown Organization [facility] Address [address] [place] [address] Phone [phone] Care Team Providers Care Web Programmer Name Role Phone Anahy Grayson MD Primary Care Provider [phone] Reason for Visit * Reason Onset Date Comments Medication Refill 03/16/2023 Encounter Details Date Type Department Care Team (Late st Contact Info) Description 03/16/2023 Refill [facility] [address] [place] [address] Anahy Grayson MD [address] [place] [address] Allergies No known active allergiesdocumented as of this encounter (statuses as of 03/19/2023) Medications Medication Sig Dispensed Refills Start Date End Date Status Aspirin 81 MG Oral Tablet Delayed Release Take 1 Tablet by mouth in the morning. 0 Active Spiriva Respimat 2.5 MCG/ACT Inhalation Aerosol Solution (Tiotropium [place] Monohydrate) Inhale by mouth 2 Puffs in [...] Oral Tablet (Crestor)Indication s:Coronary artery disease involving [place] coronary artery of [place] heart without angina pectoris,HFrEF (heart failure with [...] as of this encounter (statuses as of 03/19/2023) Active Problems Problem Noted Date Diagnosed Date [...] Rx Exacerbation plan o Chest Xray manager terminal systemic steroid user 06/23/2022 Scoliosis 06/23/2022 [...] as of this encounter (statuses as of 03/19/2023) Resolved Problems Problem Noted Date Diagnosed Date [...] as of this encounter (statuses as of 03/19/2023) Immunizations Name Administration Dates Next Due HepA [...] encounter Miscellaneous Notes * Telephone Encounter - DAYAN Forman - 03/16/2023 5:03 PM EDT Patient tried getting his Hydrocodone refilled. [facility] and it needs to besent to [facility] in [place]. documented in this encounter Plan of Treatment Upcoming Encounters Date Type Department Care Team (Late st Contact Info) Description 03/21/2023 11:00 AM EDT Scheduled Telephone [facility], [facility] [address] [place] [address] [facility] Nurse Triage [address] [place] [address] 03/29/2023 2:00 PM EDT Imaging Radiology [facility] 1st [facility] [address] [place] [address] 04/06/2023 2:00 PM EST Office Visit Rheumatology [place] [address] [facility] [place] [address] Rajiv Anderson CRNP [address] [place] [employer] [place] [address] 06/26/2023 11:30 AM EST Office Visit Cardiology, [facility] 132 [facility] [place] [address] Elizabeth Mccann CRNP 400 [facility] [place] [address] 09/06/2023 3:20 PM EDT Office Visit Neurology [facility] 200 [facility] [place] [address] Aparna Ruano PA-C 200 [facility] [place] [address] Scheduled Procedures Name Priority Associated Diagnoses Date/Ti me COLONOSCOPY FLEXIBLE PROXIMAL DIAGNOSTIC Recall Colon cancer screening Health Maintenance Due Date Last Done Comments DISCUSS TOBACCO CESSATION (REFER TO SMARTSET #2411) 1965 COVID-19 Vaccine (#1) 02/09/1969 Alpha-1 Antitrypsin [...] D LEVEL ONCE IN A LIFETIME-USE SMARTSET# [id number] Completed 08/04/2021 GARDASIL-HPV IMMUNIZATION SERIES Aged Out No longer eligible based on patient's age to complete this topic MENINGOCOCCAL (MENACTRA/MENVEO) Aged Out No longer eligible based on patient's age to complete this topic documented as of this encounter Medical Devices Not on filedocumented as of this encounter Care Teams Web Programmer Relationship Specialty Start Date End Date Anahy Grayson MD [address] [facility] [place] [address] PCP - General Internal Medicine 01/27/22 documented as of this encounter
--- OUTSIDE RECORDS SUMMARY | 2023-08-13 00:25 | External Medical Summary | Summary of Care ---
Author Name Unknown Organization [facility] Address [address] [place] [address] Phone [phone] Care Team Providers Care Labor Custodian Name Role Phone Anahy Grayson MD Primary Care Provider [phone] Reason for Visit * Reason Onset Date Comments Sleep Apnea Device 03/21/2023 Encounter Details Date Type Department Care Team (Late st Contact Info) Description 03/21/2023 Telephone Sleep Lab [facility] 132 [facility] [place] [address] Aparna Espinal, 400 [facility] [place] [address] Sleep Apnea Device Allergies No known active allergiesdocumented as of this encounter (statuses as of 03/21/2023) Medications Medication Sig Dispensed Refills Start Date End Date Status Aspirin 81 MG Oral Tablet Delayed Release Take 1 Tablet by mouth in the morning. 0 Active Spiriva Respimat 2.5 MCG/ACT Inhalation Aerosol Solution (Tiotropium [place] Monohydrate) Inhale by mouth 2 Puffs [...] Oral Tablet (Crestor)Indication s:Coronary artery disease involving [place] coronary artery of [place] heart without angina pectoris,HFrEF (heart failure with reduced ejection fraction) ([facility]),HTN, goal below 140/90,Dyslipidemia , goal LDL [...] as of this encounter (statuses as of 03/21/2023) Active Problems Problem Noted Date Diagnosed Date [...] as of this encounter (statuses as of 03/21/2023) Resolved Problems Problem Noted Date Diagnosed Date [...] as of this encounter (statuses as of 03/21/2023) Immunizations Name Administration Dates Next Due HepA [...] encounter Miscellaneous Notes * Telephone Encounter - Caryl Cruz, RPSGT - 03/21/2023 11:27 AM EDT Contacted the patient as he has not returned the Home Sleep Study unit he picked up on 02/14/2023 asof today 03/21/2023. He stated that he has been sick but is planning to use it on Sunday night and return it to [facility] on Sunday03/26/2023. I suggested he change the batteries as they may be weak after being in the unit for over a month. documented in this encounter Plan of Treatment Upcoming Encounters Date Type Department Care Team (Late st Contact Info) Description 03/29/2023 2:00 PM EDT Imaging Radiology [facility] 1st Floor, [place] 132 [facility] [place] [address] 04/06/2023 2:00 PM EST Office Visit Rheumatology [place] [address] [facility] [place] [address] Rajiv Anderson CRNP [address] [place] [address] 06/26/2023 11:30 AM EST Office Visit Cardiology, [facility] 132 [facility] [place] [address] Elizabeth Mccann CRNP [address] [place] [phone] 09/06/2023 3:20 PM EDT Office Visit Neurology [facility] [address] [place] [address] Aparna Ruano PA-C [address] [place] [address] Scheduled Procedures Name Priority Associated Diagnoses Date/Ti [...] D LEVEL ONCE IN A LIFETIME-USE SMARTSET# [id number] Completed 08/04/2021 GARDASIL-HPV IMMUNIZATION SERIES Aged Out No longer eligible based on patient's age to complete this topic MENINGOCOCCAL (MENACTRA/MENVEO) Aged Out No longer eligible based on patient's age to complete this topic documented as of this encounter Medical Devices Not on filedocumented as of this encounter Care Teams Labor Custodian Relationship Specialty Start Date End Date Anahy Grayson MD [address] [facility] [place] [address] PCP - General Internal Medicine 01/27/22 documented as of this encounter
--- OUTSIDE RECORDS SUMMARY | 2023-08-13 00:25 | External Medical Summary | Summary of Care ---
Author Name Unknown Organization [facility] Address [address] [facility] [place] [address] Phone [phone] Care Team Providers Care Operations Team Leader Name Role Phone Anahy Grayson MD Primary Care Provider [phone] Reason for Visit * Reason Onset Date Comments [facility]: Maintenance 03/21/2023 Encounter Details Date Type Department Care Team (Late st Contact Info) Description 03/21/2023 11:00 AM EDT Scheduled Telephone [facility], [facility] [address] [facility] [place] [address] [facility] Nurse Triage 132 [facility] [place] [address] Allergies No known active allergiesdocumented as of this encounter (statuses as of 03/21/2023) Medications Medication Sig Dispensed Refills Start Date End Date Status Aspirin 81 MG Oral Tablet Delayed Release Take 1 Tablet by mouth in the morning. 0 Active Spiriva Respimat 2.5 MCG/ACT Inhalation Aerosol Solution (Tiotropium [place]ldon Monohydrate) Inhale by mouth 2 Puffs in [...] Oral Tablet (Crestor)Indication s:Coronary artery disease involving benton coronary artery of benton heart without angina pectoris,HFrEF (heart failure with [...] dose Rx Exacerbation plan o Chest Xray long-term systemic steroid user 06/23/2022 Scoliosis 06/23/2022 SVT [...] Telephone Encounter - Lizette Christianson RN - 03/21/2023 11:49 AM EDT [facility] Monthly Visit Date: 03/21/2023 Time: 11:50 AM Name: Harrison Morgan : 1965 Monthly follow up call to Harrison, agreed to telephonic assessment, aware that call is being recorded for training purposes. Problems/Symptoms: HPI: Harrison reports having an OK day, going to try and do sleep study at home Sunday night, have beenunsuccessful as he does not sleep very well, weight this morning was 187.9, yesterday was 188.2 lbs, complaining of swelling to BLE's, slightly improved from yesterday. Took double Lasix yesterday and will take double Lasix today, I will call him tomorrow to assess edema. Has SOB with exertion but admits this is his baseline, abdomen is bloated at times during the day but not always. Denies any open areas/rashes to body, no fever/chills, + appetite, finished Augment recently for a tooth infection, still unable to get into dentist. Constitutional: no weakness, and no fatigue Resp: no cough, no sputum, no wheezing, and + dyspnea with exertion that is baseline Cardiac: no chest pain, no orthopnea, no dyspnea on exertion, no PND, no claudication, no palpitations, and + mild edema to BLE's, took extra lasix yesterday and instructed to take extra Lasix today as BLE's remains swollen GI: no pain, no heartburn, no diarrhea, no constipation, no blood/melena, no nausea, no vomiting Musculoskeletal: no swelling and + generalized arthritic pain, has RA Neuro: no weakness, no numbness or tingling, no vertigo, + memory loss forgetful at times, and + fall outside in the mud last week, lost balance and tripped, fell to the ground on his backside, did not hit his head, but hurt back, states back was sore but is improving everyday, taking pain meds prn Medication Reconciliation: Does patient take medications as ordered: Yes, sets up weekly pill packs No refills needed Lizette Christianson RN 03/21/2023 documented in this encounter Plan of Treatment Upcoming Encounters Date Type Department Care Team (Late st Contact Info) Description 03/22/2023 12:30 PM EDT Scheduled Telephone [facility], [facility] [address] [place] [address] [facility] Nurse Triage [address] [place] [address] 03/29/2023 2:00 PM EDT Imaging Radiology [address] [place] [address] 04/06/2023 2:00 PM EST Office Visit Rheumatology [place] [id number] [facility] [place] [address] Rajiv Anderson CRNP [address] [place] [address] [place] [address] 04/24/2023 12:00 PM EST Scheduled Telephone [facility], [facility] [address] [place] [address] [facility] Nurse Triage 132 [facility] [place] [address] 06/26/2023 11:30 AM EST Office Visit Cardiology, [facility] [address] [place] [address] Elizabeth Mccann CRNP [address] [place], [place] [address] [id number] 09/06/2023 3:20 PM EDT Office Visit Neurology Ivone [place] [address] [place] [address] Aparna Ruano PA-C [address] [place] [address] Scheduled Procedures Name Priority Associated Diagnoses Date/Ti [...] D LEVEL ONCE IN A LIFETIME-USE SMARTSET# 44793 Completed 08/04/2021 GARDASIL-HPV IMMUNIZATION SERIES Aged Out No longer eligible based on patient's age to complete this topic MENINGOCOCCAL (MENACTRA/MENVEO) Aged Out No longer eligible based on patient's age to complete this topic documented as of this encounter Medical Devices Not on filedocumented as of this encounter Care Teams Operations Team Leader Relationship Specialty Start Date End Date Anahy Grayson MD [address] [place] [address] PCP - General Internal Medicine 01/27/22 documented as of this encounter
--- OUTSIDE RECORDS SUMMARY | 2023-08-13 00:25 | External Medical Summary | Summary of Care ---
Author Name Unknown Organization [facility] Address [address] [place] [address] Phone [phone] Care Team Providers Care Councilperson Name Role Phone Anahy Grayson MD Primary Care Provider [phone] Reason for Visit * Reason Onset Date Comments Medication Problem 03/15/2023 Encounter Details Date Type Department Care Team Description 03/15/2023 Telephone [facility] [address] [place] [address] Anahy Grayson MD [address] [place] [address] Medication Problem Allergies No known active allergiesdocumented as of this encounter (statuses as of 03/17/2023) Medications Medication Sig Dispensed Refills Start Date End Date Status Aspirin 81 MG Oral Tablet Delayed Release Take 1 Tablet by mouth in the morning. 0 Active Spiriva Respimat 2.5 MCG/ACT Inhalation Aerosol Solution (Tiotropium [place]and[place] Monohydrate) Inhale by mouth 2 Puffs in the morning. 4 g 11 03/21/2022 Active Medical Compression StockingsIndicatio ns:Edema, unspecified type,Chronic systolic heart failure (HCC) 20-30 mm Hg below the knee 1 Each 0 05/15/2022 Active Furosemide 20 MG Oral Tablet (Lasix)Indications [...] Oral Tablet (Crestor)Indicatio ns:Coronary artery disease involving [place] coronary artery of [place] heart without angina pectoris,HFrEF (heart failure [...] Active Sarilumab 200 MG/1.14ML Subcutaneous Solution Auto-injector (Kevzara)Indicatio ns:Rheumatoid arthritis involving multiple sites with positive rheumatoid factor (HCC) Inject 1.14 mL under the skin every 14 days. 2.28 mL 11 03/05/2023 Active Amoxicillin-Pot Clavulanate 875-125 MG Oral Tablet (Augmentin) Take 1 Tablet by mouth in the morning and 1 Tablet before bedtime. Do all this for 10 days. 20 Tablet 0 03/12/2023 Active Omeprazole 40 MG Oral Capsule Delayed Release (PriLOSEC) Take 1 Capsule by mouth in the morning. 1 hour before the first meal of the day.. 90 Capsule 3 03/15/2023 Active HYDROcodone-Acetam inophen 10-325 MG Oral Tablet Take 1 Tablet by mouth every 6 hours as needed for Pain, Severe. 90 Tablet 0 03/17/2023 Active HYDROcodone-Acetam inophen 10-325 MG Oral Tablet Take 1 Tablet by mouth every 6 hours as needed for Pain, Severe. 90 Tablet 0 03/15/2023 3 Discontinue d(Refill) documented as of this encounter (statuses as of 03/17/2023) Active Problems Problem Noted Date Food insecurity 01/08/2023 Overview: Per [facility] Protocol Senile osteoporosis 01/04/2023 Lung nodules 12/15/2022 Lung mass 12/15/2022 Encounter for long-term (current) use of medications 09/21/2022 HFrEF (heart failure with reduced ejecti on fraction) 08/08/2022 Persistent atrial fibrillation Last Assessment & Plan: Rate controlled on metoprolol succinate, digoxin COPD, group B, by GOLD 2017 classificati on 07/10/2022 Overview: Per COPD GOLD Classification Last Assessment [...] o Chest Xray halfway systemic steroid user 06/23/19 23 Scoliosis 06/23/2022 SVT (supraventricular tachycardia) 04/26 Last Assessment & Plan: Status post cardioversion in 06/2022 -continue Toprol as noted above and Eliquis Frequent PVCs 04/26/2022 Chronic systolic heart failure Overview: EF 25-30 % echo 07/20 Last [...] Encouraged daily weights. Gastro-esophageal reflux disease without esophagitis 01/31/2022 Last Assessment & Plan: Symptoms controlled on omeprazole PAD (peripheral artery disease) 02/01/20 Depression with anxiety 01/31/2022 Cardiomyopathy 01/31/2022 DDD (degenerative disc disease), lumbar 01/31/2022 Immunodeficiency due to drugs 01/31/2022 Age-related nuclear cataract, bilateral 01/31/2022 Hepatitis C virus infection cured after antiviral drug therapy 02/12/2019 Overview: HCV treated; SVR confirmed 02/11/2019 Effusion of left knee 12/18/2018 Rheumatoid arthritis involvi ng multiple sites with positive rheumatoid factor 03/07/2018 Last Assessment & Plan: On Kevzara. Prednisone, which dose varies based on symptoms. MEDICATION USE AGREEMENT 06/25/2017 Tear of lateral meniscus of knee 016 Knee pain 12/27/2015 DJD (degenerative joint disease) 014 Erectile dysfunction 01/15/2014 Tobacco use disorder 01/15/2014 documented as of this encounter (statuses as of 03/17/2023) Resolved Problems Problem Noted Date Resolved Date COPD, severity to be determined 06/23/2022 07/12/2022 Chronic obstructive pulmonary disease 06/23/2022 07/12/2022 Chronic obstructive pulmonary disease 06/23/2022 07/12/2022 Overview: Per COPD GOLD Classification Prediabetes 01/31/2022 07/12/2022 Ischemic ulcer of finger, limited to breakdown o f skin 04/29/2021 08/08/2022 Chronic hepatitis C without hepatic coma 019 02/12/2019 Overview: HCV treated; SVR confirmed 02/11/2019 Food insecurity 01/08/2018 01/11/2021 Overview: Per [facility] Protocol Castillo's cyst of knee 12/16/2015 03/15/2017 Alejandrina nodes (DJD hand) 01/15/20142016 Screening for cardiovascular condition 4 03/15/2017 Screening for diabetes mellitus 01/15/2014 03/15/2017 Closed fracture of multiple ribs 04/18/2010 03/15/2017 Pain in limb 07/14/2009 03/15/2017 PARONYCHIA FINGER 07/14/2009 03/15/2017 CELLULITIS, FINGER, RIGHT THUMB 07/14/2009 03/15/2017 Shoulder joint pain 04/30/2009 03/15/2017 ROTATOR CUFF SYNDROME, LEFT 04/30/200902/25 Palpitations 04/30/2009 03/15/2017 Organic sleep disorder 09/20/2007 7 Adjustment disorder with depressed mood 09/20/19 08 03/15/2017 Chronic Alcohol Dependence 09/20/200703/15 Routine medical exam 09/20/2007 03/15/2017 Primary localized osteoarthrosis of shoulder reg ion 03/15/2017 Overview: right Rotator cuff syndrome 03/15/2017 Overview: right Tobacco use disorder 06/25/2017 documented as of this encounter (statuses as of 03/17/2023) Immunizations Name Administration Dates Next Due HepA [...] alcohol) Previously drank a 6 pack weekly Food Insecurity Answer Date Recorded Within the past 12 months, y ou worried that your food would run out before you got money to buy more. Sometimes true 2022 Within the past 12 months, t he food you bought just didn't last and you didn't have money to get more. Never true Sex Assigned at Date Recorded Male 03/05/2023 10:07 AM EDT Job Start Date Occupation Industry Not on file Not on file Not on file documented as of this encounter Miscellaneous Notes * Addendum Note - Daryl Villa MD - 03/17/2023 10:33 AM EDTAddended by: DARYL VILLA on: 03/17/2023 10:33 AM Modules accepted: Orders * Telephone Encounter - Daryl Villa MD - 03/17/2023 10:33 AM EDT Re-routed to new pharmacy as requested. * Telephone Encounter - Gail Collado [facility] - 03/17/2023 6:11 AM EDT Please reroute Rx to [facility] #[id number] [address] [facility]. I have reviewed the patients controlled substance dispensing history in the Prescription Drug Monitoring Program in compliance with the [facility] regulations before prescribing a controlled substance. PDMP checked on 03/17/2023. Pending Prescriptions: Disp Refills HYDROcodone-Acetaminophen 10-325 MG Oral *90 Tab*0 Sig: Take 1 Tablet by mouth every 6 hours as needed for Pain, Severe. Last Visit: 12/15/2022 (in office), 06/15/2020 (telemedicine) Next Visit: Visit date not found Date medication was last filled: 02/06 Date medication is due for refill: 02/27 Pharmacy: [facility] #[id number] [address] [facility] Is this request for a controlled substance? [...] Results Review. Please approve if appropriate. Thanks, Gail Scavone, PharmD Clinical Pharmacist Centralized Clinical Pharmacy Services (CCPS) (formerly [facility]) [phone] 03/17/2023 6:12 AM * Addendum Note - ANEUDY Smith - 03/16/2023 4:56 PM EDTAddended by: BRANDI SKAGGS on: 03/16/2023 04:56 PM Modules accepted: Orders * Telephone Encounter - ANEUDY Smith - 03/16/2023 4:55 PM EDT [facility][id number] [address] [facility]. Pending Prescriptions: Disp Refills HYDROcodone-Acetaminophen 10-325 MG Oral *90 Tab*0 Sig: Take 1 Tablet by mouth every 6 hours as needed for Pain, Severe. Last Visit: 12/15/2022 (in office), 06/15/2020 (telemedicine) Visit date not found If no future appointments scheduled, and last appointment is greater than a year ago, please schedule patient for a follow-up appointment Last date the medication was ordered: 03/15/23 Patient Phone Numbers Labs: Lab Results Component Value Date/Time CREAT 0.8 11/16/2022 01:34 PM CREAT 0.63 04/06/2022 12:00 AM CREAT 0.7 12/15/2019 02:28 PM POTASSIUM 4.5 11/16/2022 01:34 PM POTASSIUM 3.7 04/06/2022 12:00 AM POTASSIUM 4.3 12/15/2019 02:28 PM TSH 3.56 03/21/2022 09:15 AM TSH 1.43 01/15/2014 10:21 AM LDLCALC 43 08/28/2022 11:20 AM LDLCALC 53 11/19/2017 03:31 PM LDLDIRECT NOT APPLICABLE 12/21/2015 08:52 AM ALT 21 03/21/2022 09:15 AM ALT 13 12/15/2019 02:28 PM HGBA1C 5.9 (H) 01/31/2022 10:09 AM HGBA1C 6.0 (A) 08/16/2017 12:00 AM * Telephone Encounter - ANEUDY Carty - 03/16/2023 4:31 PM EDT Pt is calling - as he can not get his medication He is going to all around and call back Thank you for your assistance Sherin Weller Multimedia Manager II Centralized Clinical Pharmacy Services (CCPS) (Formerly Telepharmacy) 03/16/2023,4:32 PM * Telephone Encounter - Fredy Sarmiento MD - 03/16/2023 1:56 PM EDT This can wait until Dr Grayson available. * Telephone Encounter - Marian Younger LPN - 03/16/2023 12:43 PM EDT Pt called in about ODILIA and UDS message in a different TE dated yesterday. He inquired if one of the covering providers would be able to review previous message. Please advise. * Telephone Encounter - KWAKU Zelaya - 03/15/2023 3:53 PM EDT Please advise as below. Thank you. * Telephone Encounter - Vandana Sheehan - 03/15/2023 3:23 PM EDT Pt needs all meds changed to [facility] [place]. He is out of Hydrocodone & Omeprazole. I called [facility] and they're out of Hydrocodone that he takes but they have 5 mg with Acetaminophen. He said he would be willing to use percoset. documented in this encounter Plan of Treatment Upcoming Encounters Date Type Specialty Care Team Description 03/21/2023 Scheduled Telephone [facility] Nurse Triage [address] [place] [address] 03/29/2023 Imaging Radiology 04/06/2023 Office Visit Rheumatology Rajiv Anedrson CRNP [address] [facility] [place] [address] 06/26/2023 Office Visit Cardiology Elizabeth Mccann CRNP [address] [place] [phone] 09/06/2023 Office Visit Neurology Aparna Ruano PA-C [address] [place] [address] Scheduled Procedures Name Priority Associated Diagnoses Date/Ti me COLONOSCOPY FLEXIBLE PROXIMAL DIAGNOSTIC Recall Colon cancer screening Health Maintenance Due Date Last Done Comments DISCUSS TOBACCO CESSATION (REFER TO SMARTSET #6453) 1965 COVID-19 Vaccine (#1) 02/09/1969 Alpha-1 Antitrypsin [...] D LEVEL ONCE IN A LIFETIME-USE SMARTSET# 06372 Completed 08/04/2021 GARDASIL-HPV IMMUNIZATION SERIES Aged Out No longer eligible based on patient's age to complete this topic MENINGOCOCCAL (MENACTRA/MENVEO) Aged Out No longer eligible based on patient's age to complete this topic documented as of this encounter Medical Devices Not on filedocumented as of this encounter Care Teams Councilperson Relationship Specialty Start Date End Date Anahy Grayson MD [address] [place] [address] PCP - General Internal Medicine 01/27/22 documented as of this encounter
--- OUTSIDE RECORDS SUMMARY | 2023-08-13 00:26 | External Medical Summary | Summary of Care ---
Author Name Unknown Organization [facility] Address [address] [place] [address] Phone [phone] Care Team Providers Care Commercial Lawn Specialist Name Role Phone Anahy Grayson MD Primary Care Provider [phone] Reason for Visit * Reason Onset Date Comments Medication Problem 03/15/2023 Encounter Details Date Type Department Care Team Description 03/15/2023 Telephone [facility] [address] [place] [address] Anahy Grayson MD [address] [place] [address] Medication Problem Allergies No known active allergiesdocumented as of this encounter (statuses as of 03/17/2023) Medications Medication Sig Dispensed Refills Start Date End Date Status Aspirin 81 MG Oral Tablet Delayed Release Take 1 Tablet by mouth in the morning. 0 Active Spiriva Respimat 2.5 MCG/ACT Inhalation Aerosol Solution (Tiotropium [place] Monohydrate) Inhale by mouth 2 Puffs in [...] Oral Tablet (Crestor)Indication s:Coronary artery disease involving habematolel coronary artery of habematolel heart without angina pectoris,HFrEF (heart failure with [...] for Pain, Severe. 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 I have reviewed the patients controlled substance dispensing history in the Prescription Drug Monitoring Program in compliance with the [facility] regulations before prescribing a controlled substance. PDMP checked on 03/17/2023. Pending Prescriptions: Disp Refills HYDROcodone-Acetaminophen 10-325 MG Oral *90 Tab*0 Sig: Take 1 Tablet by mouth every 6 hours as needed for Pain, Severe. Last Visit: 12/15/2022 (in office), 06/15/2020 (telemedicine) Next Visit: Visit date not found Date medication was last filled: 02/06 Date medication is due for refill: 02/27 [facility]: [facility] #[id number] [address] [facility] Is this request for a controlled substance? [...] Review. Please approve if appropriate. Thanks, Gail Collado PharmD Clinical Pharmacist Centralized Clinical Pharmacy Services (CCPS) [facility] [phone] 03/17/2023 6:12 AM * Addendum Note - ANEUDY Smith - 03/16/2023 4:56 PM EDTAddended by: BRANDI SKAGGS on: 03/16/2023 04:56 PM Modules accepted: Orders * Telephone Encounter - ANEUDY Smith - 03/16/2023 4:55 PM EDT [facility] #[id number] [address] [facility]. Pending Prescriptions: Disp Refills HYDROcodone-Acetaminophen 10-325 MG [...] Thank you for your assistance Sherin Weller Huc II Centralized Clinical Pharmacy Services (CCPS) (Formerly [...] Pt needs all meds changed to [facility] [place]. He is out of Hydrocodone & Omeprazole. I called [facility] and they're out of Hydrocodone that he takes but they have 5 mg with Acetaminophen. He said he would be willing to use percoset. documented in this encounter Plan of Treatment Upcoming Encounters Date Type Specialty Care Team Description 03/21/2023 Scheduled Telephone [facility] Nurse Triage [address] [facility] [place] [address] 03/29/2023 Imaging Radiology 04/06/2023 Office Visit Rheumatology Rajiv Anderson CRNP [address] [facility] [place] [address] 06/26/2023 Office Visit Cardiology Elizabeth Mccann CRNP [address] [place] [address] 09/06/2023 Office Visit Neurology Aparna Ruano PA-C [address] [facility] [place] [address] Scheduled Procedures Name Priority Associated Diagnoses Date/Ti me COLONOSCOPY FLEXIBLE PROXIMAL DIAGNOSTIC Recall Colon cancer screening Health Maintenance Due Date Last Done Comments DISCUSS TOBACCO CESSATION (REFER TO SMARTSET #3296) 1965 COVID-19 Vaccine (#1) 02/09/1969 Alpha-1 Antitrypsin [...] D LEVEL ONCE IN A LIFETIME-USE SMARTSET# 47466 Completed 08/04/2021 GARDASIL-HPV IMMUNIZATION SERIES Aged Out No longer eligible based on patient's age to complete this topic MENINGOCOCCAL (MENACTRA/MENVEO) Aged Out No longer eligible based on patient's age to complete this topic documented as of this encounter Medical Devices Not on filedocumented as of this encounter Care Teams Commercial Lawn Specialist Relationship Specialty Start Date End Date Anahy Grayson MD [address] [place] [address] PCP - General Internal Medicine 01/27/22 documented as of this encounter
--- OUTSIDE RECORDS SUMMARY | 2023-08-13 00:26 | External Medical Summary | Summary of Care ---
Author Name Unknown Organization [facility] Address [address] [place] [address] Phone [phone] Care Team Providers Care Portfolio Director Name Role Phone Anahy Grayson MD Primary Care Provider [phone] Reason for Visit * Reason Onset Date Comments Medication Problem 03/15/2023 Encounter Details Date Type Department Care Team Description 03/15/2023 Telephone [facility] [address] [place] [address] Anahy Grayson MD [address] [place] [address] Medication Problem Allergies No known active allergiesdocumented as of this encounter (statuses as of 03/16/2023) Medications Medication Sig Dispensed Refills Start Date End Date Status Aspirin 81 MG Oral Tablet Delayed Release Take 1 Tablet by mouth in the morning. 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 Pending Prescriptions: Disp Refills HYDROcodone-Acetaminophen 10-325 MG [...] Thank you for your assistance Sherin Weller Licensed Psychiatric Technician II [facility] ([facility]) (Formerly [...] Specialty Care Team Description 03/21/2023 Scheduled Telephone [facility] Nurse Triage [address] [facility] [place] [address] 03/29/2023 Imaging Radiology 04/06/2023 Office Visit Rheumatology Rajiv Anderson CRNP [address] [facility] [place] [address] 06/26/2023 Office Visit Cardiology Elizabeth Mccann CRNP [address] [place] [address] 09/06/2023 Office Visit Neurology Aparna Ruano PA-C [address] [place] [address] Scheduled Procedures Name Priority Associated Diagnoses Date/Ti [...] D LEVEL ONCE IN A LIFETIME-USE SMARTSET# [id number] Completed 08/04/2021 GARDASIL-HPV IMMUNIZATION SERIES Aged Out No longer eligible based on patient's age to complete this topic MENINGOCOCCAL (MENACTRA/MENVEO) Aged Out No longer eligible based on patient's age to complete this topic documented as of this encounter Medical Devices Not on filedocumented as of this encounter Care Teams Portfolio Director Relationship Specialty Start Date End Date Anahy Grayson MD [address] [place] [address] PCP - General Internal Medicine 01/27/22 documented as of this encounter
--- OUTSIDE RECORDS SUMMARY | 2023-08-13 00:26 | External Medical Summary | Summary of Care ---
Author Name Unknown Organization [facility] Address [address] [place] [address] Phone [phone] Care Team Providers Care Waist Presser Name Role Phone Anahy Grayson MD Primary Care Provider [phone] Reason for Visit * Reason Onset Date Comments Medication Problem 03/15/2023 Encounter Details Date Type Department Care Team Description 03/15/2023 Telephone [facility] [address] [place] [address] Anayh Grayson MD [address] [place] [address] Medication Problem Allergies No known active allergiesdocumented as of this encounter (statuses as of 03/16/2023) Medications Medication Sig Dispensed Refills Start Date End Date Status Aspirin 81 MG Oral Tablet Delayed Release Take 1 Tablet by mouth in the morning. 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 * Telephone Encounter - Mairan Younger LPN - 03/16/2023 12:43 PM EDT [...] 03/21/2023 Scheduled Telephone [facility] Nurse Triage [address] [facility] [place] [address] 03/29/2023 Imaging Radiology 04/06/2023 Office Visit Rheumatology Rajiv Anderson CRNP [address] [facility] [place] [address] 06/26/2023 Office Visit Cardiology Elizabeth Mccann CRNP [address] [place] [address] 09/06/2023 Office Visit Neurology Aparna Ruano PA-C [address] [place] [address] Scheduled Procedures Name Priority Associated Diagnoses Date/Ti me COLONOSCOPY FLEXIBLE PROXIMAL DIAGNOSTIC Recall Colon cancer screening Health Maintenance Due Date Last Done Comments DISCUSS TOBACCO CESSATION (REFER TO SMARTSET #7641) 1965 COVID-19 Vaccine (#1) 02/09/1969 Alpha-1 Antitrypsin [...] D LEVEL ONCE IN A LIFETIME-USE SMARTSET# [id number] Completed 08/04/2021 GARDASIL-HPV IMMUNIZATION SERIES Aged Out No longer eligible based on patient's age to complete this topic MENINGOCOCCAL (MENACTRA/MENVEO) Aged Out No longer eligible based on patient's age to complete this topic documented as of this encounter Medical Devices Not on filedocumented as of this encounter Care Teams Waist Presser Relationship Specialty Start Date End Date Anahy Grayson MD [address] [place] [address] PCP - General Internal Medicine 01/27/22 documented as of this encounter
--- OUTSIDE RECORDS SUMMARY | 2023-08-13 00:27 | External Medical Summary | Summary of Care ---
Author Name Unknown Organization [facility] Address [address] [place] [address] Phone [phone] Care Team Providers Care Structural Engineering Project Manager Name Role Phone Anahy Grayson MD Primary Care Provider [phone] Reason for Visit * Reason Onset Date Comments Medication Refill 03/15/2023 Encounter Details Date Type Department Care Team Description 03/15/2023 Refill [facility] [address] [place] [address] Anahy Grayson MD [address] [place] [address] Allergies No known active allergiesdocumented as of this encounter (statuses as of 03/16/2023) Medications Medication Sig Dispensed Refills Start Date End Date Status Aspirin 81 MG Oral Tablet Delayed Release Take 1 Tablet by mouth in the morning. 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 1 hour before the first meal of the day..Refused By: Faheem WRIGHT for Refusal: Duplicate Request HYDROcodone-Acetaminophen 10-325 MG Oral T*90 Tab*0 Sig: Take 1 Tablet by mouth every 6 hours as needed for Pain, Severe.Refused By: ARY WRIGHT for Refusal: Duplicate Request documented in this encounter Plan of Treatment Upcoming Encounters Date Type Specialty Care Team Description 03/21/2023 Scheduled Telephone [facility] Nurse Triage [address] [place] [address] 03/29/2023 Imaging Radiology 04/06/2023 Office Visit Rheumatology Rajiv Anderson CRNP [address] [facility] [place] [address] 06/26/2023 Office Visit Cardiology [facility] [address] [facility] [place] [address] 09/06/2023 Office Visit Neurology Aparna Ruano PA-C [address] [facility] [place] [address] Scheduled Procedures Name Priority Associated Diagnoses Date/Ti me COLONOSCOPY FLEXIBLE PROXIMAL DIAGNOSTIC Recall Colon cancer screening Health Maintenance Due Date Last Done Comments DISCUSS TOBACCO CESSATION (REFER TO SMARTSET #0448) 1965 COVID-19 Vaccine (#1) 02/09/1969 Alpha-1 Antitrypsin [...] D LEVEL ONCE IN A LIFETIME-USE SMARTSET# 11537 Completed 08/04/2021 GARDASIL-HPV IMMUNIZATION SERIES Aged Out No longer eligible based on patient's age to complete this topic MENINGOCOCCAL (MENACTRA/MENVEO) Aged Out No longer eligible based on patient's age to complete this topic documented as of this encounter Medical Devices Not on filedocumented as of this encounter Care Teams Structural Engineering Project Manager Relationship Specialty Start Date End Date Anahy Grayson MD [address] [place] [address] PCP - General Internal Medicine 01/27/22 documented as of this encounter
--- OUTSIDE RECORDS SUMMARY | 2023-08-13 00:27 | External Medical Summary | Summary of Care ---
Author Name Unknown Organization [facility] Address [address] [place] [address] Phone [phone] Care Team Providers Care Unemployment Inspector Name Role Phone Anahy Grayson MD Primary Care Provider [phone] Reason for Visit * Reason Onset Date Comments Medication Problem 03/15/2023 Encounter Details Date Type Department Care Team Description 03/15/2023 Telephone [facility] [address] [place] [address] Anahy Grayson MD [address] [place] [address] Medication Problem Allergies No known active allergiesdocumented as of this encounter (statuses as of 03/16/2023) Medications Medication Sig Dispensed Refills Start Date End Date Status Aspirin 81 MG Oral Tablet Delayed Release Take 1 Tablet by mouth in the morning. 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 [place], [place] [address] 06/26/2023 Office Visit Cardiology Elizabeth Mccann CRNP [address] [place] [phone] 09/06/2023 Office Visit Neurology Aparna Ruano PA-C [address] [place] [address] Scheduled Procedures Name Priority Associated Diagnoses Date/Ti me COLONOSCOPY FLEXIBLE PROXIMAL DIAGNOSTIC Recall Colon cancer screening Health Maintenance Due Date Last Done Comments DISCUSS TOBACCO CESSATION (REFER TO SMARTSET #6591) 1965 COVID-19 Vaccine (#1) 02/09/1969 Alpha-1 Antitrypsin [...] D LEVEL ONCE IN A LIFETIME-USE SMARTSET# 17121 Completed 08/04/2021 GARDASIL-HPV IMMUNIZATION SERIES Aged Out No longer eligible based on patient's age to complete this topic MENINGOCOCCAL (MENACTRA/MENVEO) Aged Out No longer eligible based on patient's age to complete this topic documented as of this encounter Medical Devices Not on filedocumented as of this encounter Care Teams Unemployment Inspector Relationship Specialty Start Date End Date Anahy Grayson MD [address] [place] [address] PCP - General Internal Medicine 01/27/22 documented as of this encounter
--- OUTSIDE RECORDS SUMMARY | 2023-08-13 00:27 | External Medical Summary | Summary of Care ---
Author Name Unknown Organization [facility] Address [address] [place] [address] Phone [phone] Care Team Providers Care Safety Aide Name Role Phone Anahy Grayson MD Primary Care Provider [phone] Encounter Details Date Type Department Care Team Description 03/15/2023 Telephone [facility] [address] [place] [address] Anahy Grayson MD [address] [place] [address] Allergies No known active allergiesdocumented as of this encounter (statuses as of 03/16/2023) Medications Medication Sig Dispensed Refills Start Date End Date Status Aspirin 81 MG Oral Tablet Delayed Release Take 1 Tablet by mouth in the morning. 0 Active Spiriva Respimat 2.5 MCG/ACT Inhalation Aerosol Solution (Tiotropium [place] Monohydrate) Inhale by mouth 2 Puffs in [...] Oral Tablet (Crestor)Indicatio ns:Coronary artery disease involving [place] coronary artery of [place] heart without angina pectoris,HFrEF (heart failure with [...] for 10 days. 20 Tablet 0 03/12/2023 3 Active Omeprazole 40 MG Oral Capsule Delayed Release (PriLOSEC) Take 1 Capsule by mouth in the morning. 1 hour before the first meal of the day.. 90 Capsule 3 03/15/2023 Active HYDROcodone-Acetam inophen 10-325 MG Oral Tablet Take 1 Tablet by mouth every 6 hours as needed for Pain, Severe. 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 Left message on answering machine to call office. * Telephone Encounter - Anahy Grayson MD - 03/15/2023 10:10 AM EDT Pt had U tox in Oct 2022 And also singed on ODILIA too Pt should be able to get refill on his pain med Resending out documented in this encounter Plan of Treatment Upcoming Encounters Date Type Specialty Care Team Description 03/21/2023 Scheduled Telephone [facility] Nurse Triage [address] [place] [address] 03/29/2023 Imaging Radiology 04/06/2023 Office Visit Rheumatology Rajiv Anderson CRNP [address] [facility] [place] [address] 06/26/2023 Office Visit Cardiology Elizabeth Mccann CRNP [address] [place] [address] 09/06/2023 Office Visit Neurology Aparna Ruano PA-C [address] [place] [address] Scheduled Procedures Name Priority Associated Diagnoses Date/Ti [...] D LEVEL ONCE IN A LIFETIME-USE SMARTSET# 11091 Completed 08/04/2021 GARDASIL-HPV IMMUNIZATION SERIES Aged Out No longer eligible based on patient's age to complete this topic MENINGOCOCCAL (MENACTRA/MENVEO) Aged Out No longer eligible based on patient's age to complete this topic documented as of this encounter Medical Devices Not on filedocumented as of this encounter Care Teams Safety Aide Relationship Specialty Start Date End Date Anahy Grayson MD [address] [place] [facility] [place] [address] PCP - General Internal Medicine 01/27/22 documented as of this encounter
--- OUTSIDE RECORDS SUMMARY | 2023-08-13 00:27 | External Medical Summary | Summary of Care ---
Author Name Unknown Organization [facility] Address [address] [place] [address] Phone [phone] Care Team Providers Care Systems Trainer Name Role Phone Anahy Grayson MD Primary Care Provider [phone] Reason for Visit * Reason Onset Date Comments Advice 03/15/2023 Encounter Details Date Type Department Care Team Description 03/15/2023 Telephone [facility] [address] [place] [address] Anahy Grayson MD [address] [place] [address] Advice Allergies No known active allergiesdocumented as of this encounter (statuses as of 03/16/2023) Medications Medication Sig Dispensed Refills Start Date End Date Status Aspirin 81 MG Oral Tablet Delayed Release Take 1 Tablet by mouth in the morning. 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 Informed of message. Verbalized understanding. * Telephone Encounter - KWAKU Zelaya - [...] Team Description 03/21/2023 Scheduled Telephone [facility] Nurse Triage [address] [place], [place] [id number] 03/29/2023 Imaging Radiology 04/06/2023 Office Visit Rheumatology Rajiv Anderson CRNP [address] [place] [address] 06/26/2023 Office Visit Cardiology Elizabeth Mccann CRNP [address] [place] [phone] 09/06/2023 Office Visit Neurology Aparna Ruano PA-Anthony [address] [place] [address] Scheduled Procedures Name Priority Associated Diagnoses Date/Ti me COLONOSCOPY FLEXIBLE PROXIMAL DIAGNOSTIC Recall Colon cancer screening Health Maintenance Due Date Last Done Comments DISCUSS TOBACCO CESSATION (REFER TO SMARTSET #7897) 1965 COVID-19 Vaccine (#1) 02/09/1970 Alpha-1 Antitrypsin [...] D LEVEL ONCE IN A LIFETIME-USE SMARTSET# [id number] Completed 08/04/2021 GARDASIL-HPV IMMUNIZATION SERIES Aged Out No longer eligible based on patient's age to complete this topic MENINGOCOCCAL (MENACTRA/MENVEO) Aged Out No longer eligible based on patient's age to complete this topic documented as of this encounter Medical Devices Not on filedocumented as of this encounter Care Teams Systems Trainer Relationship Specialty Start Date End Date Anahy Grayson MD [address] [place] [address] PCP - General Internal Medicine 01/27/22 documented as of this encounter
--- OUTSIDE RECORDS SUMMARY | 2023-08-13 00:28 | External Medical Summary | Summary of Care ---
Author Name Unknown Organization [facility] Address [address] [place] [address] Phone [phone] Care Team Providers Care Car Shunter Name Role Phone Anahy Grayson MD Primary Care Provider [phone] Encounter Details Date Type Department Care Team Description 03/15/2023 Telephone [facility] [address] [place] [address] Anahy Grayson MD [address] [place] [address] Allergies No known active allergiesdocumented as of this encounter (statuses as of 03/15/2023) Medications Medication Sig Dispensed Refills Start Date End Date Status Aspirin 81 MG Oral Tablet Delayed Release Take 1 Tablet by mouth in the morning. 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 06/23/19 23 Scoliosis 06/23/2022 [...] as of this encounter (statuses as of 03/15/2023) Resolved Problems Problem Noted Date Resolved Date [...] as of this encounter (statuses as of 03/15/2023) Immunizations Name Administration Dates Next Due HepA [...] Team Description 03/21/2023 Scheduled Telephone [facility] Nurse Triage [address] [place] [address] 03/29/2023 Imaging Radiology 04/06/2023 Office Visit Rheumatology Rajiv Anderson CRNP [address] [facility] [place], [place] [id number] 06/26/2023 Office Visit Cardiology Elizabeth Mccann CRNP [address] [place] [address] 09/06/2023 Office Visit Neurology Aparna Ruano PA-C [address] [place] [address] Scheduled Procedures Name Priority Associated Diagnoses Date/Ti [...] D LEVEL ONCE IN A LIFETIME-USE SMARTSET# [id number] Completed 08/04/2021 GARDASIL-HPV IMMUNIZATION SERIES Aged Out No longer eligible based on patient's age to complete this topic MENINGOCOCCAL (MENACTRA/MENVEO) Aged Out No longer eligible based on patient's age to complete this topic documented as of this encounter Medical Devices Not on filedocumented as of this encounter Care Teams Car Shunter Relationship Specialty Start Date End Date Anahy Grayson MD [address] [place], [place] [id number] PCP - General Internal Medicine 01/27/22 documented as of this encounter
--- OUTSIDE RECORDS SUMMARY | 2023-08-13 00:28 | External Medical Summary | Summary of Care ---
Author Name Unknown Organization [facility] Address [address] [place] [address] Phone [phone] Care Team Providers Care Rigging Engineer Name Role Phone Anahy Grayson MD Primary Care Provider [phone] Reason for Visit * Reason Onset Date Comments Medication Refill 03/14/2023 Encounter Details Date Type Department Care Team Description 03/14/2023 Refill [facility] [address] [place] [address] Anahy Grayson MD [address] [place] [address] Allergies No known active allergiesdocumented as of this encounter (statuses as of 03/15/2023) Medications Medication Sig Dispensed Refills Start Date End Date Status Aspirin 81 MG Oral Tablet Delayed Release Take 1 Tablet by mouth in the morning. 0 Active Spiriva Respimat 2.5 MCG/ACT Inhalation Aerosol Solution (Tiotropium [place] Monohydrate) Inhale by mouth 2 Puffs in [...] Oral Tablet (Crestor)Indicatio ns:Coronary artery disease involving [place] coronary artery of [place] heart without angina pectoris,HFrEF (heart failure with [...] the day.. 90 Capsule 3 03/15/2023 Active Omeprazole 40 MG Oral Capsule Delayed Release (PriLOSEC) TAKE ONE CAPSULE BY MOUTH EVERY DAY. 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 1 hour before the first meal of the day.. Authorizing Provider: ANAHY GRAYSON * Telephone Encounter - Renita Balbuena LPN - 03/14/2023 10:21 AM EDTPending Prescriptions: Disp Refills Omeprazole 40 MG Oral Capsule Delayed Rele*90 Cap*1 Sig: Take 1 Capsule by mouth in the morning. 1 hour before the first meal of the day.. * Telephone Encounter - DAYAN Ramirez - 03/14/2023 9:45 AM EDT Pending Prescriptions: Disp Refills Omeprazole 40 MG Oral Capsule Delayed Rel*90 Cap*1 Sig: Take 1 Capsule by mouth in the morning. 1 hour before the first meal of the day.. Last Visit: 12/15/2022 (in office), 06/15/2020 (telemedicine) Next Visit: Visit date not found Last date the medication was ordered: Patient Active Problem List Diagnosis Code DJD (degenerative joint disease) M19.90 Erectile dysfunction N52.9 Tobacco use disorder F17.200 MEDICATION USE AGREEMENT [id number] Rheumatoid arthritis involving multiple sites with positive rheumatoid factor (HCC) M05.79 Hepatitis C virus infection cured after antiviral drug therapy Z86.19 Effusion of left knee M25.462 Knee pain M25.569 Tear of lateral meniscus of knee S83.289A Gastro-esophageal reflux disease without esophagitis K21.9 PAD (peripheral artery disease) ([facility]) I73.9 Depression with anxiety F41.8 Cardiomyopathy ([facility]) I42.9 DDD (degenerative disc disease), lumbar M51.36 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, Z79.899 Age-related nuclear cataract, bilateral H25.13 SVT (supraventricular tachycardia) I47.10 Frequent PVCs I49.3 Chronic systolic heart failure (HCC) I50.22 FPC systemic steroid user Z79.52 Scoliosis M41.9 COPD, group B, by GOLD 2017 classification ([facility]) J44.9 HFrEF (heart failure with reduced ejection fraction) ([facility]) I50.20 Persistent atrial fibrillation ([facility]) I48.19 Encounter for long-term (current) use of medications Z79.899 Lung nodules R91.8 Lung mass R91.8 Senile osteoporosis M81.0 Food insecurity Z59.41 Labs: Lab Results Component Value Date/Time CREATININE - [facility] 0.8 11/16/2022 01:34 PM CREATININE - [facility] 0.7 12/15/2019 02:28 PM CREATININE KAMI 213 11/07/2016 04:04 PM CREATININE-[facility] 0.63 04/06/2022 12:00 AM Lab Results Component Value Date/Time POTASSIUM - [facility] 4.5 11/16/2022 01:34 PM POTASSIUM - [facility] 4.3 12/15/2019 02:28 PM POTASSIUM-[facility] 3.7 04/06/2022 12:00 AM Lab Results Component Value Date/Time TSH - [facility] 3.56 03/21/2022 09:15 AM TSH - [facility] 1.43 01/15/2014 10:21 AM Lab Results Component Value Date/Time LDL CHOLESTEROL (CALCULATED) - [facility] 43 08/28/2022 11:20 AM LDL CHOLESTEROL (CALCULATED) - [facility] 66 08/04/2021 08:52 AM LDL CHOLESTEROL (CALCULATED) - [facility] 53 11/19/2017 03:31 PM LDL CHOLESTEROL (CALCULATED) - [facility] 67 12/21/2015 08:52 AM LDL CHOLESTEROL (DIRECT MEASURE) - [facility] NOT APPLICABLE 12/21/2015 08:52 AM Lab Results Component Value Date/Time ALT - [facility] 21 03/21/2022 09:15 AM ALT - [facility] 13 12/15/2019 02:28 PM Hemoglobin AIC Results: Lab Results Component Value Date/Time HEMOGLOBIN A1C - [facility] 5.9 (H) 01/31/2022 10:09 AM documented in this encounter Plan of Treatment Upcoming Encounters Date Type Specialty Care Team Description 03/21/2023 [facility]uled [facility] [place] [address] [place] [address] 03/29/2023 Imaging Radiology 04/06/2023 Office Visit Rheumatology Rajiv Anderson CRNP [address] [facility] [place] [address] 06/26/2023 Office Visit Cardiology Elizabeth Mccann CRNP [address] [place] [address] 09/06/2023 Office Visit Neurology Aparna Ruano PA-C [address] [place] [address] Scheduled Procedures Name Priority Associated Diagnoses Date/Ti [...] D LEVEL ONCE IN A LIFETIME-USE SMARTSET# 21489 Completed 08/04/2021 GARDASIL-HPV IMMUNIZATION SERIES Aged Out No longer eligible based on patient's age to complete this topic MENINGOCOCCAL (MENACTRA/MENVEO) Aged Out No longer eligible based on patient's age to complete this topic documented as of this encounter Medical Devices Not on filedocumented as of this encounter Care Teams Rigging Engineer Relationship Specialty Start Date End Date Anahy Grayson MD [address] [place] [address] PCP - General Internal Medicine 01/27/22 documented as of this encounter
--- OUTSIDE RECORDS SUMMARY | 2023-08-13 00:28 | External Medical Summary | Summary of Care ---
Author Name Unknown Organization [facility] Address [address] [place] [address] Phone [phone] Care Team Providers Care Proposal Engineer Name Role Phone Anahy Grayson MD Primary Care Provider [phone] Reason for Visit * Reason Onset Date Comments Medication Refill 03/14/2023 Encounter Details Date Type Department Care Team Description 03/14/2023 Refill [facility] [address] [place] [address] Anahy Grayson MD [address] [place] [address] Allergies No known active allergiesdocumented as of this encounter (statuses as of 03/15/2023) Medications Medication Sig Dispensed Refills Start Date End Date Status Aspirin 81 MG Oral Tablet Delayed Release Take 1 Tablet by mouth in the morning. 0 Active Spiriva Respimat 2.5 MCG/ACT Inhalation Aerosol Solution (Tiotropium [place] Monohydrate) Inhale by mouth 2 Puffs in [...] Oral Tablet (Crestor)Indicatio ns:Coronary artery disease involving [place] coronary artery of [place] heart without angina pectoris,HFrEF (heart failure with [...] days. 20 Tablet 0 03/12/2023 3 Active HYDROcodone-Acetam inophen 10-325 MG Oral Tablet Take 1 Tablet by mouth every 6 hours as needed for Pain, Severe. 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 Authorizing Provider: ANAHY GRAYSON * Telephone Encounter - ANEUDY Cano - 03/14/2023 4:27 PM EDT Patients insurance would like to inform the office that HYDROcodone- Acetaminophen 10-325 is denied because no documention of pt being told about misuse of the drug and no UA on file . They will fax this info to the office, please review and resubmit if appropriate. Thank you, Lisa Gonzales,[facility] Drug Safety Scientist [facility] ([facility] (formerly Telepharmacy) 03/14/2023,4:27 PM * Telephone Encounter - ANEUDY Carty - 03/14/2023 2:40 PM EDT Please reroute Rx to [id number] [address] Pharmacy does not have Pending Prescriptions: Disp Refills HYDROcodone-Acetaminophen 10-325 MG Oral *90 Tab*0 Sig: Take 1 Tablet by mouth every 6 hours as needed for Pain, Severe. Last Visit: 12/15/2022 (in office), 06/15/2020 (telemedicine) Visit date not found If no future appointments scheduled, and last appointment is greater than a year ago, please schedule patient for a follow-up appointment Last date the medication was ordered: Patient Phone Numbers Labs: Lab Results Component [...] Team Description 03/21/2023 Scheduled Telephone [facility] Nurse Triage [address] [place] [address] 03/29/2023 Imaging Radiology 04/06/2023 Office Visit Rheumatology Rajiv Anderson CRNP [address] [place] [address] 06/26/2023 Office Visit Cardiology Elizabeth Mccann CRNP [address] [place] [address] 09/06/2023 Office Visit Neurology Aparna Ruano PA-C [address] [place] [address] Scheduled Procedures Name Priority Associated Diagnoses Date/Ti me COLONOSCOPY FLEXIBLE PROXIMAL DIAGNOSTIC Recall Colon cancer screening Health Maintenance Due Date Last Done Comments DISCUSS TOBACCO CESSATION (REFER TO SMARTSET #4702) 1965 COVID-19 Vaccine (#1) 02/09/1969 Alpha-1 Antitrypsin [...] D LEVEL ONCE IN A LIFETIME-USE SMARTSET# 24539 Completed 08/04/2021 GARDASIL-HPV IMMUNIZATION SERIES Aged Out No longer eligible based on patient's age to complete this topic MENINGOCOCCAL (MENACTRA/MENVEO) Aged Out No longer eligible based on patient's age to complete this topic documented as of this encounter Medical Devices Not on filedocumented as of this encounter Care Teams Proposal Engineer Relationship Specialty Start Date End Date Anahy Grayson MD [address] [place] [facility] [place] [address] PCP - General Internal Medicine 01/27/22 documented as of this encounter
--- OUTSIDE RECORDS SUMMARY | 2023-08-13 00:29 | External Medical Summary | Summary of Care ---
Author Name Unknown Organization [facility] Address [address] [place] [address] Phone [phone] Care Team Providers Care Sales Agent Protective Service Name Role Phone Anahy Grayson MD Primary Care Provider [phone] Encounter Details Date Type Department Care Team Description 03/06/2023 Specialty Pharmacy [facility], [address] [address] Medication, Mtm Specialty Refill, [address] [address] Allergies No known active allergiesdocumented as of this encounter (statuses as of 03/06/2023) Medications Medication Sig Dispensed Refills Start Date End Date Status Aspirin 81 MG Oral Tablet Delayed Release Take 1 Tablet by mouth in the morning. 0 Active Spiriva Respimat 2.5 MCG/ACT Inhalation Aerosol Solution (Tiotropium [place] Monohydrate) Inhale by mouth 2 Puffs in the morning. 4 g 11 03/21/2022 Active Omeprazole 40 MG Oral Capsule Delayed Release (PriLOSEC) TAKE ONE CAPSULE BY MOUTH EVERY DAY. 1 HOUR BEFORE THE FIRST MEAL OF THE DAY 90 Capsule 1 04/21/2022 Active Medical Compression StockingsIndications :Edema, unspecified type,Chronic [...] Oral Tablet (Crestor)Indications :Coronary artery disease involving [place] coronary artery of [place] heart without angina pectoris,HFrEF (heart failure with [...] for Nausea. 20 Tablet 0 01/09/2023 Active HYDROcodone-Acetamin ophen 10-325 MG Oral Tablet Take 1 Tablet by mouth every 6 hours as needed for Pain, Severe. 90 Tablet 0 02/06/2023 Active predniSONE 5 MG Oral Tablet (Deltasone)Indicatio ns:Rheumatoid arthritis involving multiple sites with positive rheumatoid factor ([facility]) Take one to two tablets by mouth daily for rheumatoid arthritis. 60 Tablet 2 03/05/2023 Active Sarilumab 200 MG/1.14ML Subcutaneous Solution Auto-injector ([employer] Medicalzara)Indications :Rheumatoid arthritis involving multiple sites with positive rheumatoid factor (HCC) Inject 1.14 mL under the skin every 14 days. 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 23 Scoliosis 06/23/2022 SVT (supraventricular tachycardia) 04/26 Last Assessment & Plan: Status post cardioversion in 06/2022 -continue Toprol as noted above and Eliquis Frequent PVCs 04/26/2022 Chronic systolic heart failure 2 Overview: EF 25-30 % echo 07/20 Last [...] as of this encounter (statuses as of 03/06/2023) Resolved Problems Problem Noted Date Resolved Date [...] 01/11/2021 Overview: Per [facility] Protocol Acstillo's cyst of knee 12/16/2015 03/15/2017 Alejandrina nodes [...] as of this encounter (statuses as of 03/06/2023) Immunizations Name Administration Dates Next Due HepA [...] Progress Notes * Sylvia Madrigal CPhT - 03/06/2023 9:39 AM EDT Prescribed medication: Medication: Kevzara Shipment date: 03/12 Delivery method: Specialty Mail Location Medication Delivered too? Prescription Address: [address] [place] [address] [place] [address] Sylvia Madrigal CPhT [facility] 03/06/2023,9:39 AM documented in this encounter Plan of Treatment Upcoming Encounters Date Type Specialty Care Team Description 03/21/2023 Scheduled Telephone [facility] Nurse Triage [address] [place] [address] 03/29/2023 Imaging Radiology 04/06/2023 Office Visit Rheumatology Rajiv Anderson CRNP [address] [place] [id number] 06/26/2023 Office Visit Cardiology Elizabeth Mccann CRNP [address] [place] [address] 09/06/2023 Office Visit Neurology Aparna Ruano PA-C [address] [place] [address] Scheduled Procedures Name Priority Associated Diagnoses Date/Ti [...] D LEVEL ONCE IN A LIFETIME-USE SMARTSET# [id number] Completed 08/04/2021 GARDASIL-HPV IMMUNIZATION SERIES Aged Out No longer eligible based on patient's age to complete this topic MENINGOCOCCAL (MENACTRA/MENVEO) Aged Out No longer eligible based on patient's age to complete this topic documented as of this encounter Medical Devices Not on filedocumented as of this encounter Care Teams Sales Agent Protective Service Relationship Specialty Start Date End Date Anahy Grayson MD [address] [place] [address] PCP - General Internal Medicine 01/27/22 documented as of this encounter
--- OUTSIDE RECORDS SUMMARY | 2023-08-13 00:29 | External Medical Summary | Summary of Care ---
Author Name Unknown Organization [facility] Address [address] [place] [address] Phone [phone] Care Team Providers Care Chucking And Boring Machine Operator Name Role Phone Anahy Grayson MD Primary Care Provider [phone] Reason for Visit * Reason Onset Date Comments Medication Refill 03/09/2023 Encounter Details Date Type Department Care Team Description 03/09/[address] [facility] [address] [place] [address] Anahy Grayson MD [address] [place] [address] Allergies No known active allergiesdocumented as of this encounter (statuses as of 03/12/2023) Medications Medication Sig Dispensed Refills Start Date End Date Status Aspirin 81 MG Oral Tablet Delayed Release Take 1 Tablet by mouth in the morning. 0 Active Spiriva Respimat 2.5 MCG/ACT Inhalation Aerosol Solution (Tiotropium [place] Monohydrate) Inhale by mouth 2 Puffs in the morning. 4 g 11 03/21/2022 Active Omeprazole 40 MG Oral Capsule Delayed Release (PriLOSEC) TAKE ONE CAPSULE BY MOUTH EVERY DAY. 1 HOUR BEFORE THE FIRST MEAL OF THE DAY 90 Capsule 1 04/21/2022 Active Medical Compression StockingsIndicatio ns:Edema, unspecified type,Chronic [...] Oral Tablet (Crestor)Indicatio ns:Coronary artery disease involving [place] coronary artery of [place] heart without angina pectoris,HFrEF (heart failure with reduced ejection fraction) ([facility]),HTN, goal below 140/90,Dyslipidemi a, goal LDL below [...] Oral Tablet (Revatio)Indicatio ns:Raynaud's disease with gangrene ([facility]) TAKE ONE TABLET BY MOUTH EVERY MORNING , 1 TABLET AT NOON AND 2 TABLETS BEFORE BEDTIME 90 Tablet 2 12/25/2022 Active Ondansetron HCl 4 MG Oral Tablet Take 1 Tablet by mouth every 8 hours as needed for Nausea. 20 Tablet 0 01/09/2023 Active predniSONE 5 MG Oral Tablet (Deltasone)Indicat ions:Rheumatoid arthritis involving multiple sites with positive rheumatoid factor ([facility]) Take one to two tablets by mouth daily for rheumatoid arthritis. 60 Tablet 2 03/05/2023 Active Sarilumab 200 MG/1.14ML Subcutaneous Solution Auto-injector (Kevzara)Indicatio ns:Rheumatoid arthritis involving multiple sites with positive rheumatoid factor ([facility]) Inject 1.14 mL under the skin every 14 days. 2.28 mL 11 03/05/2023 Active HYDROcodone-Acetam inophen 10-325 MG Oral Tablet Take 1 Tablet by mouth every 6 hours as needed for Pain, Severe. 90 Tablet 0 03/12/2023 Active HYDROcodone-Acetam inophen 10-325 MG Oral Tablet Take 1 Tablet by mouth every 6 hours as needed for Pain, Severe. 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 Authorizing Provider: ANAHY GRAYSON * Telephone Encounter - Jimmy Perez RP - 03/09/2023 5:09 PM EDTPending Prescriptions: Disp Refills HYDROcodone-Acetaminophen 10-325 MG Oral T*90 Tab*0 Sig: Take 1 Tablet by mouth every 6 hours as needed for Pain, Severe. * Telephone Encounter - Jimmy Perez RP - 03/09/2023 5:09 PM EDT I have reviewed the patients controlled substance dispensing history in the Prescription Drug Monitoring Program in compliance with the [facility] regulations before prescribing a controlled substance. PDMP checked on 03/09/2023. Pending Prescriptions: Disp Refills HYDROcodone-Acetaminophen 10-325 MG Oral T*90 Tab*0 Sig: Take 1 Tablet by mouth every 6 hours as needed for Pain, Severe. Last Visit: 12/15/2022 (in office), 06/15/2020 (telemedicine) Next Visit: Visit date not found Date medication was last filled: 02-06-23 Date medication is due for refill: 02-28-23 Pharmacy: [id number] Is this request for a controlled substance?and Urine Drug Screen was completed Toxicology results: [...] Results Review. Please approve if appropriate. Thanks, Lai Coreas.Ph. Clinical Pharmacist [facility] [phone] 03/09/2023,5:09 PM * Telephone Encounter - Hannah Dailey CPhT - 03/09/2023 5:00 PM EDT Patient needs ordered today , will be out on the weekend Did you pend patient's preferred pharmacy and medication before forwarding?yes Pharmacy: [id number] [id number] [facility] Pending Prescriptions: Disp Refills HYDROcodone-Acetaminophen 10-325 MG [...] appointment Last date the medication was ordered: Is this request for a controlled substance?Yes, What was the last refill date w/ quantity 90 and dosage 10/325mg and Urine Drug Screen was completed Urine [...] Team Description 03/21/2023 Scheduled Telephone [facility] Nurse Triage [address] [facility] [place] [address] 03/29/2023 Imaging Radiology 04/06/2023 Office Visit [facility] [address] [facility] [address] 06/26/2023 Office Visit Cardiology Elizabeth Mccann CRNP [address] [place] [address] 09/06/2023 Office Visit Neurology Aparna Ruano PA-C [address] [facility] [place] [address] Scheduled Procedures Name Priority Associated Diagnoses Date/Ti [...] D LEVEL ONCE IN A LIFETIME-USE SMARTSET# [id number] Completed 08/04/2021 GARDASIL-HPV IMMUNIZATION SERIES Aged Out No longer eligible based on patient's age to complete this topic MENINGOCOCCAL (MENACTRA/MENVEO) Aged Out No longer eligible based on patient's age to complete this topic documented as of this encounter Medical Devices Not on filedocumented as of this encounter Care Teams Chucking And Boring Machine Operator Relationship Specialty Start Date End Date Anahy Grayson MD [address] [place] [address] PCP - General Internal Medicine 01/27/22 documented as of this encounter
--- OUTSIDE RECORDS SUMMARY | 2023-08-13 00:29 | External Medical Summary | Summary of Care ---
Author Name Unknown Organization [facility] Address [address] [place] [address] Phone [phone] Care Team Providers Care Ovens Supervisor Name Role Phone Anahy Grayson MD Primary Care Provider [phone] Reason for Visit * Reason Comments Rheum Follow Up Dosage Adjustment Via Phone (anticoag Cl inic) Encounter Details Date Type Department Care Team Description 03/05/2023 Telemedicine Rheumatology, [place] [address] [place] [address] Agc5, Pharmacist Rheumatology [address] [place] [address] Rheumatoid arthritis involving multiple sites with positive rheumatoid factor (HCC)* Allergies No known active allergiesdocumented as of this encounter (statuses as of 03/05/2023) Medications Medication Sig Dispensed Refills Start Date End Date Status Aspirin 81 MG Oral Tablet Delayed Release Take 1 Tablet by mouth in the morning. 0 Active Spiriva Respimat 2.5 MCG/ACT Inhalation Aerosol Solution (Tiotropium [place] Monohydrate) Inhale by mouth 2 Puffs in [...] Oral Tablet (Crestor)Indicatio ns:Coronary artery disease involving [place] coronary artery of [place] heart without angina pectoris,HFrEF (heart failure with reduced ejection fraction) ([facility]),HTN, goal below 140/90,Dyslipidemi a, goal LDL below [...] Oral Tablet (Revatio)Indicatio ns:Raynaud's disease with gangrene ([facility]) TAKE ONE TABLET BY MOUTH EVERY MORNING , 1 TABLET AT NOON AND 2 TABLETS BEFORE BEDTIME 90 Tablet 2 12/25/2022 Active Ondansetron HCl 4 MG Oral Tablet Take 1 Tablet by mouth every 8 hours as needed for Nausea. 20 Tablet 0 01/09/2023 Active HYDROcodone-Acetam inophen 10-325 MG Oral Tablet Take 1 Tablet by mouth every 6 hours as needed for Pain, Severe. 90 Tablet 0 02/06/2023 Active predniSONE 5 MG Oral Tablet (Deltasone)Indicat ions:Rheumatoid arthritis involving multiple sites with positive rheumatoid factor ([facility]) Take one to two tablets by mouth daily for rheumatoid arthritis. 60 Tablet 2 03/05/2023 Active Sarilumab 200 MG/1.14ML Subcutaneous Solution Auto-injector (Kevzara)Indicatio ns:Rheumatoid arthritis involving multiple sites with positive rheumatoid factor ([facility]) Inject 1.14 mL under the skin every 14 days. 2.28 mL 11 03/05/2023 Active predniSONE 5 MG Oral Tablet (Deltasone) TAKE 1-2 TABS DAILY FOR RHEUMATOID ARTHRITIS 60 Tablet 2 01/04/2023 3 Discontinue d(Refill) Sarilumab 200 MG/1.14ML Subcutaneous Solution Auto-injector (Kevzara) Inject 1.14 mL (1 pen) under the skin every 14 days. 2.28 mL 11 01/04/2023 3 Discontinue d(Refill) sulfaSALAzine 500 MG Oral Tablet (Azulfidine) Take 2 Tablets by mouth in the morning and 2 Tablets before bedtime. 120 Tablet 5 01/04/2023 3 Discontinue d(Medicatio n List Clean Up) documented as of this encounter (statuses as of 03/05/2023) Active Problems Problem Noted Date Food insecurity [...] dose Rx Exacerbation plan o Chest Xray group home systemic steroid user 06/23/19 23 Scoliosis 06/23/2022 [...] as of this encounter (statuses as of 03/05/2023) Resolved Problems Problem Noted Date Resolved Date [...] 7 Adjustment disorder with depressed mood 09/20/19 03/15/2017 Chronic Alcohol Dependence 09/20/200703/15 Routine medical exam 09/20/2007 03/15/2017 Primary localized osteoarthrosis of shoulder reg ion 03/15/2017 Overview: right Rotator cuff syndrome 03/15/2017 Overview: right Tobacco use disorder 06/25/2017 documented as of this encounter (statuses as of 03/05/2023) Immunizations Name Administration Dates Next Due HepA [...] as of this encounter Progress Notes * Karina Ford, [facility] - 03/05/2023 11:08 AM EDT After connecting to the patient via telephone, the patient was identified by name and date of . Patient was then informed that this was a telephone call only visit. The patient agreed to participate. Visit Disposition: Routine follow-up Total call duration was 15 minutes. Clinical Pharmacy Service (Rheumatology): Medication Management PHYSICIAN ACTION NEEDED: No action needed PROTOCOL IN PLACE Visit: status check ASSESSMENT (M05.79) Rheumatoid arthritis involving multiple sites with positive rheumatoid factor Patient is on the following medication(s): Kevzara 200mg subq every 14 days Sulfasalazine 500mg - two tablets by mouth twice daily Prednisone 5mg - one to two tablets by mouth daily Continues to have nausea daily and is wondering if this is from sulfasalazine. Per patient message from 01/04 - recommended to stop sulfasalazine to see if nausea subsides. PLAN OF ACTION Medication Regimen: STOP sulfasalazine 500mg - two tablets by mouth twice daily CONTINUE Kevzara 200mg subq every 14 days CONTINUE prednisone 5mg - one to two tablets by mouth daily Advised patient to reach out via mychart or phone call with an update on how he is feeling after stopping sulfasalazine. Follow-Up Appointment(s): Pharmacist: no follow-up needed Physician: 04/06 with PATRICK Tim Harrison Alex Morgan is a 58 year old year old male presently on a medication regimen of Kevzara and sulfasalazine. CURRENT MEDICATION REGIMEN Taking Kevzara 200mg subq every 14 days, sulfasalazine 500mg - two tablets by mouth twice daily, and prednisone 5mg one to two tablets by mouth daily Patient has been on this medication for a few months. Kevzara dose was increased about two months or so ago. Patient account of regimen effectiveness: improvement in condition/symptoms Patient reports side effects while being on medication: yes - nausea which patient feels is from sulfasalazine Chronic use of prednisone or NSAIDS: yes DISEASE ACTIVITY ASSESSMENT Morning stiffness lasting more than 30 minutes in the morning: yes Symptoms improve throughout the day: yes Any flares in the past month?: yes Infections: no Swelling: no Number of work/school days missed in last month due to above noted condition: none LABORATORY VALUES Lab Results Component Value Date/Time WBC AUTO - [facility] 9.39 03/21/2022 09:15 AM WBC AUTO - [facility] 10.95 (H) 01/31/2022 10:09 AM WBC AUTO - [facility] 9.14 08/04/2021 08:52 AM WBC AUTO - [facility] 7.61 12/15/2019 02:28 PM WBC AUTO - [facility] 8.53 05/23/2019 01:03 PM WBC AUTO - [facility] 7.07 04/03/2019 05:02 PM WBC-OUTSIDE LAB 11.0 (H) 04/05/2022 03:15 PM Lab Results Component Value Date/Time HGB - [facility] 12.9 (L) 03/21/2022 09:15 AM HGB - [facility] 14.5 01/31/2022 10:09 AM HGB - [facility] 13.7 (L) 08/04/2021 08:52 AM HGB - [facility] 14.2 12/15/2019 02:28 PM HGB - [facility] 14.7 05/23/2019 01:03 PM HGB - [facility] 14.2 04/03/2019 05:02 PM Lab Results Component Value Date/Time HCT - [facility] 43.7 03/21/2022 09:15 AM HCT - [facility] 46.6 01/31/2022 10:09 AM HCT - [facility] 42.7 08/04/2021 08:52 AM HCT - [facility] 44.4 12/15/2019 02:28 PM HCT - [facility] 47.0 05/23/2019 01:03 PM HCT - [facility] 46.2 04/03/2019 05:02 PM No results found for: PLT Lab Results Component Value Date/Time CREATININE - [facility] 0.8 11/16/2022 01:34 PM CREATININE - [facility] 0.8 10/13/2022 12:09 PM CREATININE - [facility] 1.0 08/28/2022 11:20 AM CREATININE - [facility] 0.7 12/15/2019 02:28 PM CREATININE - [facility] 0.8 05/23/2019 01:03 PM CREATININE - [facility] 0.7 04/03/2019 05:02 PM CREATININE KAMI 213 11/07/2016 04:04 PM CREATININE-OUTSIDE LAB 0.63 04/06/2022 12:00 AM CREATININE-OUTSIDE LAB 0.79 08/16/2017 12:00 AM Lab Results Component Value Date/Time BUN - [facility] 25 (H) 11/16/2022 01:34 PM BUN - [facility] 16 10/13/2022 12:09 PM BUN - [facility] 26 (H) 08/28/2022 11:20 AM BUN - [facility] 10 12/15/2019 02:28 PM BUN - [facility] 16 02/11/2019 08:43 AM BUN - [facility] 17 11/11/2018 08:28 AM Lab Results Component Value Date/Time AST - [facility] 20 03/21/2022 09:15 AM AST - [facility] 19 01/31/2022 10:09 AM AST - [facility] 28 08/04/2021 08:52 AM AST - [facility] 19 12/15/2019 02:28 PM AST - [facility] 21 05/23/2019 01:03 PM AST - [facility] 14 04/03/2019 05:02 PM Lab Results Component Value Date/Time ALT - [facility] 21 03/21/2022 09:15 AM ALT - [facility] 19 01/31/2022 10:09 AM ALT - [facility] 26 08/04/2021 08:52 AM ALT - [facility] 13 12/15/2019 02:28 PM ALT - [facility] 16 05/23/2019 01:03 PM ALT - [facility] 15 04/03/2019 05:02 PM Lab Results Component Value Date/Time LDL CHOLESTEROL (CALCULATED) - [facility] 43 08/28/2022 11:20 AM LDL CHOLESTEROL (CALCULATED) - [facility] 66 08/04/2021 08:52 AM LDL CHOLESTEROL (CALCULATED) - [facility] 68 06/06/2021 08:59 AM LDL CHOLESTEROL (CALCULATED) - [facility] 53 11/19/2017 03:31 PM LDL CHOLESTEROL (CALCULATED) - [facility] 67 12/21/2015 08:52 AM LDL CHOLESTEROL (DIRECT MEASURE) - [facility] NOT APPLICABLE 12/21/2015 08:52 AM Karina Ford [facility] Clinical Pharmacist Rheumatology Department 03/05/2023,11:08 AM documented in this encounter Plan of Treatment Upcoming Encounters Date Type Specialty Care Team Description 03/21/2023 Scheduled Telephone [facility] Nurse Triage [address] [place], [place] [id number] 03/29/2023 Imaging Radiology 04/06/2023 Office Visit Rheumatology Rajiv Anderson CRNP [address] [facility] [place] [address] 06/26/2023 Office Visit Cardiology Elizabeth Mccann CRNP [address] [place] [address] 09/06/2023 Office Visit Neurology Aparna Ruano PA-C [address] [place] [address] Scheduled Procedures Name Priority Associated Diagnoses Date/Ti me COLONOSCOPY FLEXIBLE PROXIMAL DIAGNOSTIC Recall Colon cancer screening Health Maintenance Due Date Last Done Comments DISCUSS TOBACCO CESSATION (REFER TO SMARTSET #6215) 1965 COVID-19 Vaccine (#1) 02/09/1969 Alpha-1 Antitrypsin [...] D LEVEL ONCE IN A LIFETIME-USE SMARTSET# 43946 Completed 08/04/2021 GARDASIL-HPV IMMUNIZATION SERIES Aged Out No longer eligible based on patient's age to complete this topic MENINGOCOCCAL (MENACTRA/MENVEO) Aged Out No longer eligible based on patient's age to complete this topic documented as of this encounter Medical Devices Not on filedocumented as of this encounter Visit Diagnoses Diagnosis Rheumatoid arthritis involving multiple sites with positive rheumatoid factor (HCC)- Primary documented in this encounter Care Teams Ovens Supervisor Relationship Specialty Start Date End Date Anahy Grayson MD [address] [facility] [place] [address] PCP - General Internal Medicine 01/27/22 documented as of this encounter
--- OUTSIDE RECORDS SUMMARY | 2023-08-13 00:29 | External Medical Summary | Summary of Care ---
Author Name Unknown Organization [facility] Address [address] [place] [address] Phone [phone] Care Team Providers Care Gut Dropper Name Role Phone Anahy Grayson MD Primary Care Provider [phone] Reason for Visit * Reason Onset Date Comments Medication Refill 03/10/2023 Encounter Details Date Type Department Care Team Description 03/10/2023 Refill [facility] [address] [place] [address] Anahy Grayson MD [address] [place] [address] Allergies No known active allergiesdocumented as of this encounter (statuses as of 03/11/2023) Medications Medication Sig Dispensed Refills Start Date End Date Status Aspirin 81 MG Oral Tablet Delayed Release Take 1 Tablet by mouth in the morning. 0 Active Spiriva Respimat 2.5 MCG/ACT Inhalation Aerosol Solution (Tiotropium [place] Monohydrate) Inhale by mouth 2 Puffs [...] Oral Tablet (Crestor)Indications :Coronary artery disease involving [place] coronary artery of [place] heart without angina pectoris,HFrEF (heart failure with reduced ejection fraction) ([facility]),HTN, goal below 140/90,Dyslipidemia, goal LDL below [...] (Revatio)Indications :Raynaud's disease with gangrene ([facility] [...] Active Sarilumab 200 MG/1.14ML Subcutaneous Solution Auto-injector (Powerwave Technologieszara)Indications :Rheumatoid arthritis involving multiple sites with positive rheumatoid factor ([facility]) Inject 1.14 mL under the skin every 14 days. 2.28 mL 11 03/05/2023 Active documented as of this encounter (statuses as of 03/11/2023) Active Problems Problem Noted Date Food insecurity 01/08/2023 Overview: Per [facility] Protocol Senile osteoporosis 01/04/2023 Lung nodules [...] o Chest Xray long-term systemic steroid user 06/23/19 23 Scoliosis 06/23/2022 [...] as of this encounter (statuses as of 03/11/2023) Resolved Problems Problem Noted Date Resolved Date [...] as of this encounter (statuses as of 03/11/2023) Immunizations Name Administration Dates Next Due HepA [...] encounter Miscellaneous Notes * Telephone Encounter - Morena Lo RPh - 03/11/2023 1:45 PM EDTRefused Prescriptions: Disp Refills HYDROcodone-Acetaminophen 10-325 MG Oral T*90 Tab*0 Sig: Take 1Tablet by mouth every 6 hours as needed for Pain, Severe.Refused By: MORENA LO forRefusal: Duplicate Request documented in this encounter Plan of Treatment Upcoming Encounters Date Type Specialty Care Team Description 03/21/2023 Scheduled Telephone [facility] Nurse Triage [address] [facility] [place] [address] 03/29/2023 Imaging Radiology 04/06/2023 Office Visit Rheumatology Rajiv Anderson CRNP [address] [facility] [place] [address] 06/26/2023 Office Visit Cardiology Elizabeth Mccann CRNP [address] [place] [address] 09/06/2023 Office Visit Neurology Aparna Ruano PA-C [address] [facility] [place] [address] Scheduled Procedures Name Priority Associated Diagnoses Date/Ti [...] D LEVEL ONCE IN A LIFETIME-USE SMARTSET# 24059 Completed 08/04/2021 GARDASIL-HPV IMMUNIZATION SERIES Aged Out No longer eligible based on patient's age to complete this topic MENINGOCOCCAL (MENACTRA/MENVEO) Aged Out No longer eligible based on patient's age to complete this topic documented as of this encounter Medical Devices Not on filedocumented as of this encounter Care Teams Gut Dropper Relationship Specialty Start Date End Date Anahy Grayson MD [address] [place] [address] PCP - General Internal Medicine 01/27/22 documented as of this encounter
--- OUTSIDE RECORDS SUMMARY | 2023-08-13 00:30 | External Medical Summary | Summary of Care ---
Author Name Unknown Organization [facility] Address [address] [place] [address] Phone [phone] Care Team Providers Care Top Coater Name Role Phone Anahy Grayson MD Primary Care Provider [phone] Reason for Visit * Reason Comments Rheum Follow Up Dosage Adjustment Via Phone (anticoag Cl inic) Encounter Details Date Type Department Care Team Description 03/05/2023 Telemedicine Rheumatology, [place] [address] [place] [address] Agc5, Pharmacist Rheumatology [address] [place] [address] Rheumatoid arthritis involving multiple sites with positive rheumatoid factor (HCC)* Allergies No known active allergiesdocumented as of this encounter (statuses as of 03/05/2023) Medications Medication Sig Dispensed Refills Start Date End Date Status Aspirin 81 MG Oral Tablet Delayed Release Take 1 Tablet by mouth in the morning. 0 Active Spiriva Respimat 2.5 MCG/ACT Inhalation Aerosol Solution (Tiotropium [place] Monohydrate) Inhale by mouth 2 Puffs in [...] Oral Tablet (Crestor)Indicatio ns:Coronary artery disease involving [place] coronary artery of [place] heart without angina pectoris,HFrEF (heart failure with reduced ejection fraction) ([facility]),HTN, goal below 140/90,Dyslipidemi a, goal LDL [...] (Revatio)Indicatio ns:Raynaud's disease with gangrene ([facility] [...] this encounter Progress Notes * Karina Ford, [facility] - 03/05/2023 11:08 AM EDT After connecting [...] NOT APPLICABLE 12/21/2015 08:52 AM Karina Ford [facility] Clinical Pharmacist Rheumatology Department 03/05/2023,11:08 AM documented in this encounter Plan of Treatment Upcoming Encounters Date Type Specialty Care Team Description 03/21/2023 Scheduled Telephone [facility] Nurse Triage [address] [place], [place] [phone] 03/29/2023 Imaging Radiology 04/06/2023 Office Visit Rheumatology Rajiv Anderson CRNP [address] [place] [address] 06/26/2023 Office Visit Cardiology Elizabeth Mccann CRNP [address] [place] [address] 09/06/2023 Office Visit Neurology Aparna Ruano PA-C [address] [place] [facility] [place] [address] Scheduled Procedures Name Priority Associated Diagnoses Date/Ti me COLONOSCOPY FLEXIBLE PROXIMAL DIAGNOSTIC Recall Colon cancer screening Health Maintenance Due Date Last Done Comments DISCUSS TOBACCO CESSATION (REFER TO SMARTSET #6901) 1965 COVID-19 Vaccine (#1) 02/09/1969 Alpha-1 Antitrypsin [...] D LEVEL ONCE IN A LIFETIME-USE SMARTSET# 91534 Completed 08/04/2021 GARDASIL-HPV IMMUNIZATION SERIES Aged Out [...] Primary documented in this encounter Care Teams Top Coater Relationship Specialty Start Date End Date Anahy Grayson MD [address] [facility] [place] [address] PCP - General Internal Medicine 01/27/22 documented as of this encounter
--- OUTSIDE RECORDS SUMMARY | 2023-08-13 00:30 | External Medical Summary | Summary of Care ---
Author Name Unknown Organization [facility] Address [address] [place] [address] Phone [phone] Care Team Providers Care Aircraft Life Support Fitter Name Role Phone Anahy Grayson MD Primary Care Provider [phone] Reason for Referral * Evaluate & Treat - Unlimited Visits (Within 10 days (routine)) - Authorized Specialty Diagnoses / Procedures Referred By Jose tidwell Referred To Contact Psychiatry / Psychology Diagnoses Memory changes Aparna Ruano PA-C [address] [place] [address] Referral ID Status Reason Start Date Expiration Date Visits Requested Visits Authorized [id number] Authorized Specialty Services Required 03/01/2023 999 [id number] Question Answer Referral Priority Within 10 days (routine) Where should this appointment be scheduled? [facility] Is this referral for medication management? No What condition is this patient being seen for? Mild Cognitive Impairment/Mild Neurocognitive Disorder Does the patient have SEVERE cognitive impairment on bedside screeners? (MoCA/MMSE <= 10) No Comments Neuropsychological evaluations are INTERACTIVE and use materials that require a patient to SEE, HEAR, and often WRITE. If a patient is unable to engage in this way, neurocognitive assessment may be abbreviated or deemed inappropriate. Please use caution in establishing expectations with your patient, and note any limitations in the comments section of the referral order. * Precert (Within 10 days (routine)) - Pending Review Specialty Diagnoses / Procedures Referred By Jose tidwell Referred To Contact Radiology Diagnoses Memory changes Procedures MRI BRAIN W WO CONTRAST Aparna Ruano PA-C [address] [place] [address] Referral ID Status Reason Start Date Expiration Date V isits Requested Visits Authorized [id number] Pending Review 03/08/2023 999 [id number] Reason for Visit * Reason Comments NEW PATIENT Memory Problems * Evaluate & Treat - Unlimited Visits (Within 30 days (routine)) - Authorized Specialty Diagnoses / Procedures Referred By Jose tidwell Referred To Contact Neurology Diagnoses Memory impairment Peggy Medina PA-C [address] [place] [address] Referral ID Status Reason Start Date Expiration Date Visits Requested Visits Authorized [id number] Authorized Specialty Services Required 09/15/2022 [id number] Encounter Details Date Type Department Care Team Description 03/01/2023 Office Visit Neurology [facility] [place] [address] [place] [address] Aparna Ruano PA-C [address] [place] [address] Memory changes*; Tobacco use disorder; SVT (supraventricular tachycardia); Persistent atrial fibrillation (HCC) Allergies No known active allergiesdocumented as of this encounter (statuses as of 03/01/2023) Medications Medication Sig Dispensed Refills Start Date End Date Status Aspirin 81 MG Oral Tablet Delayed Release Take 1 Tablet by mouth in the morning. 0 Active Spiriva Respimat 2.5 MCG/ACT Inhalation Aerosol Solution (Tiotropium [place] Monohydrate) Inhale by mouth 2 Puffs in [...] Oral Tablet (Crestor)Indications :Coronary artery disease involving [place] coronary artery of [place] heart without angina pectoris,HFrEF (heart failure with reduced ejection fraction) ([facility]),HTN, goal below 140/90,Dyslipidemia, goal LDL below [...] crush or chew. 30 Capsule 12/15/2022 Active Sildenafil Citrate 20 MG Oral Tablet (Revatio)Indications :Raynaud's disease with gangrene ([facility]) TAKE ONE TABLET BY MOUTH EVERY MORNING , 1 TABLET AT NOON AND 2 TABLETS BEFORE BEDTIME 90 Tablet 2 12/25/2022 Active predniSONE 5 MG Oral Tablet (Deltasone) TAKE 1-2 TABS DAILY FOR RHEUMATOID ARTHRITIS 60 Tablet 2 01/04/2023 Active Sarilumab 200 MG/1.14ML Subcutaneous Solution Auto-injector ([employer]) Inject 1.14 mL (1 pen) under the skin every 14 days. 2.28 mL 01/04/2023 Active sulfaSALAzine 500 MG Oral Tablet (Azulfidine) Take 2 Tablets by mouth in the morning and 2 Tablets before bedtime. 120 Tablet 5 01/04/2023 Active Ondansetron HCl 4 MG Oral Tablet Take 1 Tablet by mouth every 8 hours as needed for Nausea. 20 Tablet 0 01/09/2023 Active HYDROcodone-Acetamin ophen 10-325 MG Oral Tablet Take 1 Tablet by mouth every 6 hours as needed for Pain, Severe. 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 06/23/19 23 Scoliosis 06/23/2022 [...] as of this encounter (statuses as of 03/01/2023) Resolved Problems Problem Noted Date Resolved Date [...] as of this encounter (statuses as of 03/01/2023) Immunizations Name Administration Dates Next Due HepA [...] Never true Sex Assigned at Date Recorded Not on file Job Start Date Occupation Industry Not on file Not on file Not on file documented as of this encounter Last Filed Vital Signs Vital Sign Reading Time Taken Comments Blood Pressure 98/68 03/01/2023 2:44 PM EDT Pulse 63 03/01/2023 2:44 PM EDT Temperature 36.1 C (96.9 F) 03/01/2023 2:44 PM ED T Respiratory Rate 18 03/01/2023 2:44 PM EDT Oxygen Saturation 97% 03/01/2023 2:44 PM EDT Inhaled Oxygen Concentration - - Weight 87.9 kg (193 lb 11.2 oz) 03/01/2023 2:44 PM EDT Height - - Body Mass Index 29.45 09/15/2022 12:50 PM EDT documented in this encounter Nursing Notes * Shannon Lyles LPN - 03/01/2023 2:42 PM EDT Patient verified identity by spelling of last name and date. Chief Complaint Patient presents with NEW PATIENT Memory Problems documented in this encounter Plan of Treatment Upcoming Encounters Date Type Specialty Care Team Description 03/05/2023 Telemedicine Rheumatology Agc5, Pharmacist Rheumatology [address] [place] [address] 03/21/2023 Scheduled Telephone [facility] Nurse Triage [address] [place] [address] 03/29/2023 Imaging Radiology 04/06/2023 Office Visit Rheumatology Rajiv Anderson CRNP [address] [place] [address] 06/26/2023 Office Visit Cardiology Elizabeth Mccann CRNP [address] [place] [address] 09/06/2023 Office Visit Neurology Aparna Ruano PA-C [address] [facility] [place] [address] Scheduled Orders Name Type Priority Associated Diagnoses Orde r Schedule MRI BRAIN W WO CONTRAST Medical Imaging Routine Memory changes Expected: 03/08/2023, Expires: 04/01/2024 VITAMIN B12 Lab Routine Memory changes Ordered: 03/01/2023 FOLIC ACID Lab Routine Memory changes Ordered: 03/01/2023 VITAMIN B1 (THIAMINE), BLOOD, LC/MS/MS Lab Routine Memory changes Expected: 03/01/2023, Expires: 03/01/2024 Scheduled Procedures Name Priority Associated Diagnoses Date/Ti me COLONOSCOPY FLEXIBLE PROXIMAL DIAGNOSTIC Recall Colon cancer screening Scheduled Referrals Name Type Priority Associated Diagnoses Order Schedule ADULT/PEDS NEUROPSYCHOLOGY REFERRAL OP Referral Within 10 days (routine) Memory changes Ordered: 03/01/2023 Health Maintenance Due Date Last Done Comments DISCUSS TOBACCO CESSATION (REFER TO SMARTSET #2617) 1965 COVID-19 Vaccine (#1) 02/09/1969 Alpha-1 Antitrypsin [...] D LEVEL ONCE IN A LIFETIME-USE SMARTSET# 51765 Completed 08/04/2021 GARDASIL-HPV IMMUNIZATION SERIES Aged Out No longer eligible based on patient's age to complete this topic MENINGOCOCCAL (MENACTRA/MENVEO) Aged Out No longer eligible based on patient's age to complete this topic documented as of this encounter Medical Devices Not on filedocumented as of this encounter Visit Diagnoses Diagnosis Memory changes- Primary Memory loss Tobacco use disorder SVT (supraventricular tachycardia) Other specified cardiac dysrhythmias Persistent atrial fibrillation (HCC) Atrial fibrillation documented in this encounter Care Teams Aircraft Life Support Fitter Relationship Specialty Start Date End Date Anahy Grayson MD [address] [place] [address] PCP - General Internal Medicine 01/27/22 documented as of this encounter
--- OUTSIDE RECORDS SUMMARY | 2023-08-13 00:30 | External Medical Summary | Summary of Care ---
Author Name Unknown Organization [facility] Address [address] [place] [address] Phone [phone] Care Team Providers Care Crankshaft Straightener Name Role Phone Anahy Grayson MD Primary Care Provider [phone] Reason for Referral * Evaluate & Treat - Unlimited Visits (Within 10 days (routine)) - Authorized Specialty Diagnoses / Procedures Referred By Jose tidwell Referred To Contact Psychiatry / Psychology Diagnoses Memory changes Aparna Ruano PA-C [address] [place] [address] Referral ID Status Reason Start Date Expiration Date Visits Requested Visits Authorized [id number] Authorized Specialty Services Required 03/01/[phone] [...] W WO CONTRAST Aparna Ruano PA-C [address] [facility] [place] [address] Referral ID Status Reason Start Date Expiration Date V isits Requested Visits Authorized [id number] Pending Review 03/08/2023 999 999 Reason for Visit * Reason Comments NEW PATIENT Memory Problems * Evaluate & Treat - Unlimited Visits (Within 30 days (routine)) - Authorized Specialty Diagnoses / Procedures Referred By Jose tidwell Referred To Contact Neurology Diagnoses Memory impairment Peggy Medina PA-C [address] [place] [address] Referral ID Status Reason Start Date Expiration Date Visits Requested Visits Authorized [id number] Authorized Specialty Services Required 09/15/[phone] Encounter Details Date Type Department Care Team Description 03/01/2023 Office Visit Neurology [facility] [place] [address] [facility] [place] [address] Aparna Ruano PA-C [address] [facility] [place] [place] [address] Memory changes*; Tobacco use disorder; SVT (supraventricular tachycardia); Persistent atrial fibrillation (HCC) Allergies No known active allergiesdocumented as of this encounter (statuses as of 03/01/2023) Medications Medication Sig Dispensed Refills Start Date End Date Status Aspirin 81 MG Oral Tablet Delayed Release Take 1 Tablet by mouth in the morning. 0 Active Spiriva Respimat 2.5 MCG/ACT Inhalation Aerosol Solution (Tiotropium [place] Monohydrate) Inhale by mouth 2 Puffs in [...] Oral Tablet (Crestor)Indications :Coronary artery disease involving [place] coronary artery of [place] heart without angina pectoris,HFrEF (heart failure with reduced ejection fraction) ([facility]),HTN, goal below 140/90,Dyslipidemia, goal LDL below 70,Palpitations [...] Oral Tablet (Revatio)Indications :Raynaud's disease with gangrene ([facility]) TAKE ONE TABLET BY MOUTH EVERY MORNING , 1 TABLET AT NOON AND 2 TABLETS BEFORE BEDTIME 90 Tablet 2 12/25/2022 Active predniSONE 5 MG Oral Tablet (Deltasone) TAKE 1-2 TABS DAILY FOR RHEUMATOID ARTHRITIS 60 Tablet 2 01/04/2023 Active Sarilumab 200 MG/1.14ML Subcutaneous Solution Auto-injector ([employer]) Inject 1.14 mL (1 pen) under the [...] [facility] systemic steroid user 06/23/19 23 Scoliosis 06/23/2022 [...] Telemedicine Rheumatology Agc5, Pharmacist Rheumatology [address] [place] [address] 03/21/2023 Scheduled Telephone [facility] Nurse Triage [address] [place] [address] 03/29/2023 Imaging Radiology 04/06/2023 Office Visit Rheumatology Rajiv Anderson CRNP [address] [place] [address] 06/26/2023 Office Visit Cardiology Elizabeth Mccann CRNP [address] [facility] [place] [address] 09/06/2023 Office Visit Neurology Aparna Ruano PA-C [address] [place] [facility] [place] [address] Scheduled Orders Name Type Priority Associated Diagnoses [...] Comments DISCUSS TOBACCO CESSATION (REFER TO SMARTSET #9733) 1965 COVID-19 Vaccine (#1) 02/09/1969 Alpha-1 Antitrypsin [...] D LEVEL ONCE IN A LIFETIME-USE SMARTSET# 15005 Completed 08/04/2021 GARDASIL-HPV IMMUNIZATION SERIES Aged Out [...] fibrillation documented in this encounter Care Teams Crankshaft Straightener Relationship Specialty Start Date End Date Anahy Grayson MD [address] [place] [address] PCP - General Internal Medicine 01/27/22 documented as of this encounter
--- OUTSIDE RECORDS SUMMARY | 2023-08-13 00:30 | External Medical Summary | Summary of Care ---
Author Name Unknown Organization [facility] Address [address] [facility] [address] Phone [phone] Care Team Providers Care [employer]ocad Name Role Phone Anahy Grayson MD Primary Care Provider [phone] Reason for Visit * Reason Onset Date Comments Medication Refill 10/31/2022 Encounter Details Date Type Department Care Team Description 10/31/2022 Refill Rheumatology [place] [address] [place] [address] Jimmy Giang MD [facility] [employer] [place] [address] Allergies No known active allergiesdocumented as of this encounter (statuses as of 03/05/2023) Medications Medication Sig Dispensed Refills Start Date End Date Status Aspirin 81 MG Oral Tablet Delayed Release Take 1 Tablet by mouth in the morning. 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 06/23/19 23 Scoliosis [...] Types Packs/Day Years Used Date Smoking Tobacco: Former Cigarettes 1 38 Q uit: 04/17/2022 Smokeless Tobacco: Never Alcohol Use Standard Drinks/Week [...] Team Description 03/21/2023 Scheduled Telephone [facility] Nurse Triage [address] [place] [address] 03/29/2023 Imaging Radiology 04/06/2023 Office Visit Rheumatology Rajiv Anderson CRNP [address] [place] [address] 06/26/2023 Office Visit Cardiology Elizabeth Mccann CRNP [address] [place] [id number] 09/06/2023 Office Visit Neurology Aparna Ruano PA-C [address] [facility] [place] [address] Scheduled Procedures Name Priority Associated Diagnoses Date/Ti me COLONOSCOPY FLEXIBLE PROXIMAL DIAGNOSTIC Recall Colon cancer screening Health Maintenance Due Date Last Done Comments DISCUSS TOBACCO CESSATION (REFER TO SMARTSET #6282) 1965 COVID-19 Vaccine (#1) 02/09/1969 Alpha-1 Antitrypsin [...] D LEVEL ONCE IN A LIFETIME-USE SMARTSET# 40942 Completed 08/04/2021 GARDASIL-HPV IMMUNIZATION SERIES Aged Out No longer eligible based on patient's age to complete this topic MENINGOCOCCAL (MENACTRA/MENVEO) Aged Out No longer eligible based on patient's age to complete this topic documented as of this encounter Medical Devices Not on filedocumented as of this encounter Care Teams Autocad Relationship Specialty Start Date End Date Anahy Grayson MD [address] [place] [address] PCP - General Internal Medicine 01/27/22 documented as of this encounter
--- OUTSIDE RECORDS SUMMARY | 2023-08-13 00:31 | External Medical Summary | Summary of Care ---
Author Name Unknown Organization [facility] Address [address] [facility] [place] [address] Phone [phone] Care Team Providers Care [employer] Systems Programmer Name Role Phone Anahy Grayson MD Primary Care Provider [phone] Reason for Visit * Reason Onset Date Comments [facility]: Maintenance 02/16/2023 Encounter Details Date Type Department Care Team Description 02/16/2023 Scheduled Telephone [facility] [address] [facility] [place] [address] [facility] [place] [facility] [address] [facility] [place] [address] Allergies No known active allergiesdocumented as of this encounter (statuses as of 02/16/2023) Medications Medication Sig Dispensed Refills Start Date End Date Status Aspirin 81 MG Oral Tablet Delayed Release Take 1 Tablet by mouth in the morning. 0 Active Spiriva Respimat 2.5 MCG/ACT Inhalation Aerosol Solution (Tiotropium [place] Monohydrate) Inhale by mouth 2 Puffs in [...] Oral Tablet (Crestor)Indications :Coronary artery disease involving [place] coronary artery of [place] heart without angina pectoris,HFrEF (heart failure with reduced ejection fraction) ([facility]),HTN, goal below 140/90,Dyslipidemia, goal [...] Oral Tablet (Revatio)Indications :Raynaud's disease with gangrene ([facility]) TAKE ONE TABLET BY MOUTH EVERY MORNING , 1 TABLET AT NOON AND 2 TABLETS BEFORE BEDTIME 90 Tablet 2 12/25/2022 Active predniSONE 5 MG Oral Tablet (Deltasone) TAKE 1-2 TABS DAILY FOR RHEUMATOID ARTHRITIS 60 Tablet 2 01/04/2023 Active Sarilumab 200 MG/1.14ML Subcutaneous Solution Auto-injector ([employer]) Inject 1.14 mL (1 pen) under the [...] as of this encounter (statuses as of 02/16/2023) Active Problems Problem Noted Date Food insecurity [...] o Chest Xray detention systemic steroid user 06/23/19 23 Scoliosis 06/23/2022 [...] as of this encounter (statuses as of 02/16/2023) Resolved Problems Problem Noted Date Resolved Date [...] as of this encounter (statuses as of 02/16/2023) Immunizations Name Administration Dates Next Due HepA Inact/HepB Recomb>=18yrs old 08/26/2018 Hepatitis B, 20+ yrs 05/27/2019,10/10/2018 Pneumococcal Conjugate Vacc, 13 Valent (Prevnar) 03/21/2019 Pneumococcal Polysaccharide PPV23 (Pneumovax) 02/12/2020 Seasonal Influenza, PF, 6 mo ns & Above, IM , (Flulaval) 03/03/2021,02/12/2020,03/21/2019,1208/2017,03/15/2017 04/30/2019 TD - Tetanus/Diptheria (ADULT) 03/28/2007 TDAP (age 10 and older)(Boostrix) 02/12/2020 documented as of this encounter Social History Tobacco Use Types Packs/Day Years Used Date Smoking Tobacco: Former Cigarettes 1 38 Q uit: 04/17/2022 Passive Smoke Exposure: Past Smokeless Tobacco: Never [...] Telephone Encounter - Lizette Christianson RN - 02/16/2023 12:18 PM EDT [employer] Techn[employer] Monthly Visit Date: 02/16/2023 Time: 12:18 PM Name: Harrison Morgan : 1965 Spoke with Harrison, introduced myself, agreed to telephonic assessment, aware that call is being recorded for training purposes. Problems/Symptoms: HPI: Harrison reports feeling ok today, no flare ups today, weight stable at 189.3lbs, denies any edemato ble's, appetite is good, girlfriend does the cooking and follows the MELISSA dietary restrictions, He tries to follow his daily fluid restrictions, may go over some days. Sleeps at night, no open areas/rashes to body Constitutional: no weight loss, no weakness, and no fatigue, only has fatigue when is having an RA flare up Resp: no cough, no sputum, no wheezing, no hemoptysis, and + dyspnea with exertion Cardiac: no chest pain, no orthopnea, no dyspnea on exertion, no PND, no edema, and no palpitations GI: no pain, no heartburn, no diarrhea, no constipation, no blood/melena, no nausea, no vomiting. LBM was yesterday, urinating wnl's Musculoskeletal: no swelling, + joint pain of all joints hurt all the time due to RA Neuro: no falling, no numbness or tingling, no vertigo, and + memory loss per girlfriend that is intermittently Medication Reconciliation: Does patient take medications as ordered: Yes, independent with daily pill planners No refills needed at this time Monthly follow up scheduled Lizette Christianson RN 02/16/2023 documented in this encounter Plan of Treatment Upcoming Encounters Date Type Specialty Care Team Description 03/05/2023 Telemedicine Rheumatology Agc5, Pharmacist Rheumatology [address] [place] [address] 03/21/2023 Scheduled Telephone [facility] [place] [address] [place] [address] 04/04/2023 Office Visit Neurology Aparna Ruano PA-C [address] [place] [address] 04/06/2023 Office Visit Rheumatology Rajiv Anderson CRNP [address] [facility] [place], [place] [address] 06/26/2023 Office Visit Cardiology Elizabeth Mccann CRNP [address] [place] [address] Scheduled Procedures Name Priority Associated Diagnoses Date/Ti me COLONOSCOPY FLEXIBLE PROXIMAL DIAGNOSTIC Recall Colon cancer screening Health Maintenance Due Date Last Done Comments COVID-19 Vaccine (#1) 02/09/1969 Alpha-1 Antitrypsin 02/09/1982 [...] D LEVEL ONCE IN A LIFETIME-USE SMARTSET# [id number] Completed 08/04/2021 GARDASIL-HPV IMMUNIZATION SERIES Aged Out No longer eligible based on patient's age to complete this topic MENINGOCOCCAL (MENACTRA/MENVEO) Aged Out No longer eligible based on patient's age to complete this topic documented as of this encounter Medical Devices Not on filedocumented as of this encounter Care Teams [employer] Systems Programmer Relationship Specialty Start Date End Date Anahy Grayson MD [address] [place] [address] PCP - General Internal Medicine 01/27/22 documented as of this encounter
[2023-08-13 01:07] LABS: Basophils # (auto) 0.06 K/uL (0.00-0.20); Basophils % (auto) 0.9 %; Eosinophils # (auto) 0.24 K/uL (0.00-0.50); Eosinophils % (auto) 3.6 %; Hematocrit (blood only) 47.2 % (42.0-52.0); Immature Granulocytes # (auto) 0.05 K/uL (0.01-0.20); Immature Granulocytes % (auto) 0.8 %; Lymphocytes # (auto) 1.24 K/uL (1.20-3.40); Lymphocytes % (auto) 18.6 %; Mean Corpuscular Hemoglobin 28.6 pg (25.0-34.0); Mean Corpuscular Hgb Conc 31.8 g/dL (32.0-36.0); Mean Corpuscular Volume 90.1 fL (80.0-100.0); Mean Platelet Volume 10.9 fL (9.4-12.4); Monocytes # (auto) 1.08 K/uL (0.11-0.59); Monocytes % (auto) 16.2 %; Neutrophils # (auto) 3.99 K/uL (1.40-6.50); Neutrophils % (auto) 59.9 %; Platelet Count 309 K/uL (130-400); RDW Coefficient of Variation 17.9 % (11.5-14.5); RDW Standard Deviation 59.1 fL (36.4-46.3); Red Blood Count 5.24 M/uL (4.70-6.10); White Blood Count 6.66 K/ul (4.8-10.8)
[2023-08-13 01:10] LABS: Albumin Globulin Ratio 1.2 (0.9-2); Albumin Level 3.9 gm/dl (3.4-5.0); BUN Creatinine Ratio 19.4 (10-20); Bilirubin,Total 0.5 mg/dl (0.2-1.0); Calcium 9.4 mg/dl (8.6-10.3); Creatinine Clr Calc Pharmacy 95.4 ml/min; Est GFR (African American) 97.4 ml/min; Est GFR (Non-African American) 84.1 ml/min; Globulin 3.2 gm/dl (2.5-4.0); Potassium 4.2 mmol/L (3.5-5.1); Total Protein 7.1 gm/dl (6.0-8.3)
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
[2023-08-13 01:16] LABS: Troponin I High Sensitivity 39.9 pg/ml (0-20)
[2023-08-13 01:26] LABS: Thyroid Stimulating Hormone 6.275 uIu/ml (0.300-4.500)
[2023-08-13 01:36] LABS: Acetaminophen < 3 ug/ml (10-30); Salicylate < 3.0 mg/dl (3.0-30)
[2023-08-13 02:01] LABS: T4 Free Thyroxine 0.92 ng/dl (0.61-1.60)
[2023-08-13 03:22] LABS: Appearance Urine Clear (Clear); Bacteria Urine Automated Negative (Negative); Bilirubin Urine Negative (Negative); Blood Urine Negative (Negative); Cast Urine Automated 0 /lpf (0-5); Color Urine Dark Yellow; Epithelial Cell Urine Auto 0-5 /lpf (0-5); Glucose Urine UA 3+ (Negative); Ketones Urine Negative (Negative); Leukocyte Esterase Urine Negative (Negative); Nitrite Urine Negative (Negative); Protein Urine Trace (Negative); RBC Urine Automated 0-4 /hpf (0-4); Specific Gravity Urine 1.027 (1.000-1.030); Urobilinogen Urine Negative (Negative); WBC Urine Automated 0 /hpf (0-5)
[2023-08-13 04:02] LABS: Amphetamines+Metham, Urine Pos (Neg); Barbiturates, Urine Neg (Neg); Benzodiazepine, Urine Neg (Neg); Cocaine, Urine Neg (Neg); MDMA (Ecstacy), Urine Neg (Neg); Marijuana, Urine Neg (Neg); Methadone, Urine Neg (Neg); Opiate, Urine Neg (Neg); Phencyclidine, Urine Neg (Neg)
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
[2023-08-13] MEDS ORDERED: NITROGLYCERIN SL 0.4 MG/TAB TAB SL PRN ×2 (05:31)
[2023-08-13] MEDS ORDERED: POLYETHYLENE (MIRALAX) 17 GM PACK PO PRN (05:31)
[2023-08-13] MEDS: SODIUM CHLORIDE 0.9% 1,000 ML IV SCH (06:33)
[2023-08-13] MEDS: PANTOprazole 40 MG TAB PO SCH (06:34)
[2023-08-13] MEDS: PIPERACILLIN/TAZOBACTAM 4.5 GM in DEXTROSE 5% MINI-B 100 ML IV STA (06:34)
--- NOTE | 2023-08-13 07:01 | XRay Report ---
SINGLE VIEW CHEST CLINICAL HISTORY: Dyspnea FINDINGS: An AP, portable, upright chest radiograph is compared to study dated 07/16/2022. Correlation is made with chest CT dated 08/25/2021. The heart is enlarged. The pulmonary vasculature is nonconges erika. Emphysema and chronic interstitial thickening is similar to previous. There is bibasilar scarrin g/atelectasis. No airspace consolidation or large pleural effusion is identified. The lungs and pleur al spaces are clear. No pneumothorax is seen. The skeletal structures are osteopenic. The bony thorax is grossly intact. 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 IMPRESSION: 1. Cardiomegaly and emphysema with no acute cardiopulmonary abnormality identified. 2. Pulmonary nodules seen on prior CT scans are not well visualized by x-ray. ACT 112: Negative or not required by law. Electronically signed by: Alcon Roach M.D. 08/13/2023 7:00 AM
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
[2023-08-13 08:04] LABS: Basophils # (auto) 0.05 K/uL (0.00-0.20); Basophils % (auto) 0.7 %; Eosinophils # (auto) 0.25 K/uL (0.00-0.50); Eosinophils % (auto) 3.6 %; Hematocrit (blood only) 44.2 % (42.0-52.0); Hemoglobin 14.7 g/dl (14.0-18.0); Immature Granulocytes # (auto) 0.05 K/uL (0.01-0.20); Immature Granulocytes % (auto) 0.7 %; Lymphocytes # (auto) 1.04 K/uL (1.20-3.40); Lymphocytes % (auto) 15.1 %; Mean Corpuscular Hgb Conc 33.3 g/dL (32.0-36.0); Mean Corpuscular Volume 87.2 fL (80.0-100.0); Monocytes # (auto) 1.04 K/uL (0.11-0.59); Monocytes % (auto) 15.1 %; Neutrophils # (auto) 4.46 K/uL (1.40-6.50); Neutrophils % (auto) 64.8 %; Platelet Count 252 K/uL (130-400); RDW Coefficient of Variation 17.6 % (11.5-14.5); RDW Standard Deviation 55.8 fL (36.4-46.3); Red Blood Count 5.07 M/uL (4.70-6.10); White Blood Count 6.89 K/ul (4.8-10.8)
[2023-08-13 08:23] LABS: Calcium 9.1 mg/dl (8.6-10.3); Creatinine Clr Calc Pharmacy 118.4 ml/min; Est GFR (African American) 113.9 ml/min; Est GFR (Non-African American) 98.3 ml/min; Magnesium 1.9 mg/dl (1.7-2.4); Potassium 4.1 mmol/L (3.5-5.1)
[2023-08-13 08:25] LABS: Estimated Average Glucose 126 mg/dl
[2023-08-13 08:29] LABS: Troponin I High Sensitivity 35.6 pg/ml (0-20)
[2023-08-13] MEDS ORDERED: ESCITALOPRAM OXALATE 10 MG TAB PO SCH (09:00)
[2023-08-13] MEDS: sulfaSALAzine 500 MG TABLET PO SCH (09:07)
[2023-08-13] MEDS: METOPROLOL SUCC 50MG EXT REL TAB PO SCH (09:07)
[2023-08-13] MEDS: ESCITALOPRAM OXALATE 20 MG TAB PO SCH (09:07)
[2023-08-13] MEDS: SILDENAFIL CITRATE 20 MG TABLET PO SCH ×2 (09:07→20:39)
[2023-08-13] MEDS: CHOLECALCIFEROL 10 MCG (400 UNITS) TAB PO SCH (09:07)
[2023-08-13] MEDS: SPIRONOLACTONE 12.5 MG TAB PO SCH (09:08)
[2023-08-13] MEDS: ROSUVASTATIN CALCIUM 5 MG TAB PO SCH (09:08)
[2023-08-13] MEDS: FUROSEMIDE 40 MG TAB PO SCH (09:08)
[2023-08-13] MEDS: VALSARTAN/SACUBITRIL 26/24MG TAB PO SCH (09:08)
[2023-08-13] MEDS: METOPROLOL SUCC 25MG EXT REL TAB PO SCH (09:08)
[2023-08-13] MEDS: ASPIRIN 81 MG ECTAB PO SCH (09:09)
--- NOTE | 2023-08-13 09:55 | Electrocardiogram Report ---
Test Reason : Blood Pressure : / mmHG Vent. Rate : 097 BPM Atrial Rate : 000 BPM P-R Int : 000 ms QRS Dur : 082 ms QT Int : 342 ms P-R-T Axes : 000 112 153 degrees QTc Int : 434 ms Atrial fibrillation Right axis deviation Low voltage QRS Incomplete right bundle branch block Abnormal ECG When compared with ECG of 16-JUL-2022 01:06, Atrial fibrillation has replaced Sinus rhythm Confirmed by Johnathon Craft ([id number]) on 08/13/2023 9:54:57 AM Referred By: REFERRED SELF Confirmed By:Chip Craft
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
[2023-08-13] MEDS: APIXABAN 5 MG TABLET PO SCH (10:51)
[2023-08-13] MEDS: UMECLIDINIUM BROMIDE 62.5MCG/BLISTER 7 PUFFS/INHALER INH SCH (10:51)
[2023-08-13] MEDS: predniSONE 5 MG TAB PO SCH (10:51)
[2023-08-13] MEDS: PIPERACILLIN/TAZOBACTAM 4.5 GM in DEXTROSE 5% MINI-B 100 ML IV SCH (13:03)
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
--- NOTE | 2023-08-13 15:31 | Communication Note ---
Date of Service: August 13, 2023 Patient seen and examined at bedside. He is lying on the bed comfortably. He is not in any distress or pain. Appreciate evaluation by cardiology, orthopedic and psychiatry. Continue on Zosyn; will add vancomycin. Podiatry consulted for possible debridement; appreciate recommendation Physical examination Constitutional: WD/WN, vitals as above, NAD, sitting up in bed, pleasant, conversing easily Respiratory: Bilateral vesicular breath sound. Cardiovascular: RRR, no murmur, no edema Vessels: no JVD or carotid bruit Chest: normal inspection of chest Abdomen: Soft, nontender. Musculoskeletal: Blackish discoloration of tip of right great toe. Minimal drainage. Skin: no rashes, warm and dry normal turgor Neurologic: PERRL, EOMI, accommodation nl, no face palsy, no dysarthria CN's II- XI intact bilaterally and moves all extremities Psychiatric: A+Ox3, euthymic affect
[2023-08-13] MEDS ORDERED: VANCOMYCIN CONSULT ACTIVE PRN (16:10)
[2023-08-13] MEDS: ACETAMINOPHEN 325 MG TAB PO PRN (16:36)
[2023-08-13] MEDS: oxyCODONE/ACETAMINOPHEN 10-325 TAB PO PRN (16:36)
[2023-08-13] MEDS: VANCOMYCIN HCL 2,000 MG in SODIUM CHLORIDE 0.9% 500 ML IV ONE (16:46)
[2023-08-13] MEDS: DIGOXIN 0.125 MG TAB PO SCH (17:10)
[2023-08-14] MEDS: VANCOMYCIN HCL 1,500 MG in SODIUM CHLORIDE 0.9% 500 ML IV SCH (01:41)
[2023-08-14 06:59] LABS: Basophils # (auto) 0.05 K/uL (0.00-0.20); Basophils % (auto) 0.8 %; Eosinophils # (auto) 0.23 K/uL (0.00-0.50); Eosinophils % (auto) 3.7 %; Immature Granulocytes # (auto) 0.02 K/uL (0.01-0.20); Immature Granulocytes % (auto) 0.3 %; Lymphocytes # (auto) 1.31 K/uL (1.20-3.40); Lymphocytes % (auto) 21.1 %; Mean Corpuscular Hemoglobin 28.9 pg (25.0-34.0); Mean Corpuscular Hgb Conc 32.6 g/dL (32.0-36.0); Mean Corpuscular Volume 88.8 fL (80.0-100.0); Mean Platelet Volume 10.5 fL (9.4-12.4); Monocytes # (auto) 0.91 K/uL (0.11-0.59); Monocytes % (auto) 14.7 %; Neutrophils # (auto) 3.68 K/uL (1.40-6.50); Neutrophils % (auto) 59.4 %; Platelet Count 269 K/uL (130-400); RDW Coefficient of Variation 17.3 % (11.5-14.5); RDW Standard Deviation 56.5 fL (36.4-46.3); Red Blood Count 4.84 M/uL (4.70-6.10)
[2023-08-14 07:27] LABS: BUN Creatinine Ratio 20.4 (10-20); Calcium 8.6 mg/dl (8.6-10.3); Creatinine Clr Calc Pharmacy 100.1 ml/min; Est GFR (African American) 103.8 ml/min; Est GFR (Non-African American) 89.5 ml/min; Potassium 3.9 mmol/L (3.5-5.1)
[2023-08-14] MEDS: SILDENAFIL CITRATE 20 MG TABLET PO SCH (08:23)
--- NOTE | 2023-08-14 08:26 | Pharmacy Report ---
Pharmacy PK ABX Note - Date of Service August 14, 2023 - Assessment and Plan Assessment 58 year old M receiving empiric vancomycin and Zosyn for treatment of right great toe necrosis w/ concern for infection. No cultures obtained. Renal function appears to be at/near baseline. Podiatry and orthopedic surgery consulted. Possible debridement. Pertinent PMH includes PAD and Raynaud's dx Day # 2 of antimicrobial therapy. Plan Vancomycin * Loading dose: 2000 mg IV x 1 * Maintenance dose: 1500 mg IV every 12 hours * Regimen is predicted to result in slightly supratherapeutic AUC/KENAN > 600 mg/L.hr, but okay initially to achieve therapeutic levels * Random level ordered for: 08/15/23 and will decrease dose if needed Zosyn * 4.5 g IV q8h, appropriately dosed based on indication/renal function Pharmacy will continue to follow and will adjust dose/frequency as necessary. Thank you. Pharmacy has transitioned to AUC monitoring for vancomycin. AUC/KENAN is the preferred PK/PD target and is associated with decreased risk of nephrotoxicity compared to traditional trough targets.
[2023-08-14] MEDS ORDERED: ESCITALOPRAM OXALATE 10 MG TAB PO SCH (09:00)
[2023-08-14] MEDS: ESCITALOPRAM OXALATE 20 MG TAB PO SCH (09:05)
[2023-08-14] MEDS: predniSONE 20 MG TAB PO SCH (13:27)
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
--- NOTE | 2023-08-14 17:21 | Podiatry Consultation ---
Date of Consultation August 14, 2023 Assessment & Plan (1) PAD (peripheral artery disease): (2) Open wound of right great toe with damage to nail: Encounter type: initial encounter Qualified Code(s): S91.201A - Unspecified open wound of right great toe with damage to nail, initial encounter (3) Toe pain, right: Plan Patient examined and evaluated. Toe appears stable without purulence, but black discoloration does extend distal to and including the nail bed. Likely this is a result of trauma with minimal necrosis. His pulses are palpable on exam today so could likely heal surgical debridement. He is pending a foot MRI which could reveal extent of wound and any underlying osteomyelitis. Will wait on MRI results for definitive planning, but he would likely benefit from surgical debridement of this skin lesion. It is possible, that if he is stabilized otherwise medically, this toe can be addressed outpatient as well. We will continue to monitor him moving forward. Thank you very much for the consult, will report to helping provide this patient with excellent care. History of Present Illness Reason for Consultation: Right great toe necrosis Attending Physician: Ned Dueñas MD Allergies Allergy/AdvReac Type Severity Reaction Status Date / Time No Known Allergies Allergy Verified 08/13/23 02:24 Home Medications Medication Instructions Recorded Confirmed Type aspirin 81 mg tablet,delayed 81 mg PO QAM 04/04/21 08/13/23 History release (Bob Low Dose Aspirin) omeprazole 40 mg capsule,delayed 40 mg PO DAILYBB 04/04/21 08/13/23 History release nitroglycerin 0.4 mg sublingual 0.4 mg sublingual .PRN/UD PRN 08/27/21 08/13/23 History tablet Chest Pain rosuvastatin 5 mg tablet 5 mg PO QAM 08/27/21 08/13/23 History sildenafil (pulm.hypertension) 20 20 mg PO BID 08/27/21 08/13/23 History mg tablet sildenafil (pulm.hypertension) 20 40 mg PO HS 04/06/22 08/13/23 History mg tablet tiotropium bromide 2.5 2 inh inhalation QAM 04/06/22 08/13/23 History mcg/actuation mist for inhalation (Spiriva Respimat) alendronate 70 mg tablet 70 mg PO WK 07/05/22 08/13/23 History furosemide 20 mg tablet 40 mg PO QAM 07/05/22 08/13/23 History apixaban 5 mg tablet (Eliquis) 5 mg PO BID #60 tabs 07/10/22 08/13/23 Rx cholecalciferol (vitamin D3) 10 10 mcg PO DAILY 08/13/23 08/13/23 History mcg (400 unit) capsule (Vitamin D3) digoxin 125 mcg (0.125 mg) tablet 0.125 mcg PO DAILY 08/13/23 08/13/23 History empagliflozin 10 mg tablet 10 mg PO QAM 08/13/23 08/13/23 History (Jardiance) escitalopram oxalate 10 mg tablet 10 mg PO QAM 08/13/23 08/13/23 History metoprolol succinate 100 mg 100 mg PO BID 08/13/23 08/13/23 History tablet,extended release 24 hr metoprolol succinate 25 mg 25 mg PO BID 08/13/23 08/13/23 History tablet,extended release 24 hr ondansetron HCl 4 mg tablet 4 mg PO Q8H PRN NAUSEA/VOMITING 08/13/23 08/13/23 History oxycodone-acetaminophen 10 mg-325 1 tab PO Q6H PRN Pain, Severe 08/13/23 08/13/23 History mg tablet prednisone 5 mg tablet 5 - 10 mg PO DAILY RHEUMATOID 08/13/23 08/13/23 History ARTHRITIS sacubitril 24 mg-valsartan 26 mg 1 tab PO BID 08/13/23 08/13/23 History tablet (Entresto) sarilumab 200 mg/1.14 mL 200 mg subcut .[id number] 08/13/23 08/13/23 History subcutaneous pen injector (Monroeza) spironolactone 25 mg tablet 12.5 mg PO QAM 08/13/23 08/13/23 History sulfasalazine 500 mg tablet 500 mg PO QAM 08/13/23 08/13/23 History Patient History Medical History Raynauds disease PAD (peripheral artery disease) HTN (hypertension) Hepatitis C Anemia Lung nodules HFrEF (heart failure with reduced ejection fraction) Chronic steroid use Long-term use of high-risk medication Rheumatoid arthritis GERD (gastroesophageal reflux disease) Pre-diabetes Erectile dysfunction Tobacco use disorder Surgical History History of cardiac cath History of colonoscopy Hx of tonsillectomy Family History Other Heart disease Hypertension Social History Smoking Status: Current some day smoker Tobacco Type: Cigarettes Cigarettes Per Day: 8-10; Second Hand Exposure: Yes; Do You Dip or Chew Tobacco: No; Hx Alcohol Use: No Hx Substance Use: No Preferred Language: Polish Communication Ability: Effective Agile Java 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 Required: No Beliefs That Will Affect Care: None Current Living Situation: Family and Significant Other Current Living Situation Comment: Lives at home with ex-girlfriend Hayley, & their child Danica Feels Safe at Home: Yes Assistive Devices: Cane, Walker and Wheelchair Review of Systems Review of Systems: All systems reviewed & are unremarkable except as noted in HPI & below Constitutional: no fever and no chills Eyes: no problem reported Ear, Nose, Mouth, Throat: no ear pain and no nasal congestion Respiratory: no cough, no chest congestion and no wheezing Cardiovascular: no chest pain, no edema and no calf pain Gastrointestinal: no abdominal pain, no nausea and no vomiting Genitourinary: no problem reported Musculoskeletal: + stiffness; no joint pain and no proble m reported Integumentary: + new lesions, + non-healing lesions, + changing lesions and + dry skin Neurologic: + generalized weakness, + loss of sensat ion, + numbness and + paresthesia Psychiatric: + behavioral changes, + depression and + hallucinations; no suicidal ideation Endocrine: no problem reported Physical Exam Physical Exam: Bilateral lower extremity focused exam: DP 1/4, PT pulses 2/4. CFT is brisk to the digits. Discoloration is noted to the distal aspect of the right hallux. No purulent drainage or fluctuance noted. Discoloration is noted, consistent with either gangrene or a deep hematoma to the distal aspect of the hallux. There is some scant passive bleeding, making a hematoma more likely. MRI is pending at this time. Distal cooling is noted and there is relative atrophy of the skin overall. There is mild hallux valgus and mild semirigid hammertoe deformities appreciated. No focal decrease in sensation subjective global decrease in sensation is noted to the foot and ankle bilaterally. Constitutional: WD/WN, vitals as above + disheveled Eyes: PERRL, conjunctivae normal, anicteric sclerae ENMT: external ear and nose normal, oropharynx normal Neck: trachea midline, no thyromegaly Respiratory: normal respiratory effort, lungs clear to auscultation normal respiratory effort; no respiratory distress Cardiovascular: RRR, no murmur, no edema Vessels: posterior tibial pulses present and dorsalis pedis pulses present Extremities: normal capillary refill Gastrointestinal (Abdomen): normal bowel sounds, soft, nontender, no hepatosplenomegaly Inspection/Auscultation: abdomen not distended Percussion/Palpation: no guarding Musculoskeletal: no cyanosis or clubbing, extremities motor strength 5/5 Head/Neck/Chest: normocephalic and head atraumatic Extremities: + limited ROM of extremities Skin: no rashes, warm and dry + lesion, + ulcer and + wound Neurologic: patellar DTR's 2+ bilat, sensation intact and PERRL, EOMI, accommodation nl, no face palsy, no dysarthria Psychiatric: A+Ox3, euthymic affect Results & Data Vital Signs (Past 12 Hours) Vital Signs Temp Pulse Pulse Resp BP BP Pulse Ox 08/14/23 16:22 85 08/14/23 15:30 36.6 C 67 18 123/70 94 08/14/23 14:02 95 H 08/14/23 12:17 97/66 L 93 08/14/23 11:35 93/54 L 08/14/23 11:23 36.5 C 81 16 89/55 L 91 08/14/23 07:31 36.4 C L 88 16 102/63 95 08/14/23 05:57 75 O2 Del Method 08/14/23 16:22 08/14/23 15:30 Room Air 08/14/23 14:02 08/14/23 12:17 Room Air 08/14/23 11:35 08/14/23 11:23 Room Air 08/14/23 07:31 Room Air 08/14/23 05:57
[2023-08-14] MEDS: GADOBUTROL 65ML VIAL IV ONE (18:15)
--- NOTE | 2023-08-14 19:29 | Magnetic Resonance Report ---
MRI OF THE RIGHT FOREFOOT COMBO CLINICAL HISTORY: Gangrenous toe. COMPARISON STUDY: No priors. TECHNIQUE: MRI of the right forefoot was performed utilizing various T1 and T2-weighted sequences in the axial, sagittal, and coronal planes. Contrast enhanced sequences are acquired following the IV ad ministration of 10 cc of Gadavist. The examination is severely compromised by motion artifact. Interp retation is significantly suboptimal without plain film correlate. FINDINGS: There is significant marrow edema seen within the tuft of the first distal phalanx. There i s no clear corresponding drop in marrow signal on the T1-weighted sequences, with nonspecific postcon trast enhancement. An overlying soft tissue ulcer/wound is suggested. There is also marrow edema seen within the head/neck of the fifth metatarsal. This could be on a degenerative or posttraumatic basis . Osteoarthritic change is noted throughout the forefoot and midfoot. A 2.2 cm benign-appearing T2 hy perintense, T1 hypointense lesion is seen in the anterior calcaneus. This likely shows internal enhan cement. Mild soft tissue edema is present throughout the forefoot. No organized fluid collection is s een to suggest abscess. The partially visualized flexor and extensor tendons are grossly intact. Visu alized portions of the plantar fascia appear maintained. IMPRESSION: 1. Severely motion compromised examination. This degrades diagnostic utility. 2. There is marrow edema seen within the tuft of the first distal phalanx. No corresponding drop in s ignal was clearly seen on the T1-weighted sequences and this likely represents a nonspecific osteitis . Osteomyelitis is not excluded and clinical correlation will be required. Radiographic correlation i s also recommended. 3. There is nonspecific marrow edema within the head/neck of the fifth metatarsal. This could be on a posttraumatic versus degenerative basis. Again, clinical and radiographic correlation will be requir ed. 4. There is an indeterminate benign-appearing lesion in the anterior calcaneus as above. Clinical and radiographic correlation will be required. 5. A wound/ulceration is suggested at the tip of the first toe. Correlate clinically. Dictated: 08/14/2023 6:47 PM Transcribed: 08/14/2023 7:00 PM Neal [id number] REY_Alfredo [id number] Electronically signed by: Alcon Roach M.D. 08/14/2023 7:27 PM
[2023-08-14] MEDS: HEPARIN SOD 5,000 UNIT/0.5 ML VIAL SQ SCH (21:39)
[2023-08-15 06:50] LABS: C Reactive Protein 10.71 mg/dl (0-0.5); Creatinine Clr Calc Pharmacy 96.2 ml/min; Est GFR (African American) 98.6 ml/min; Est GFR (Non-African American) 85.1 ml/min
[2023-08-15] MEDS: ESCITALOPRAM OXALATE 10 MG TAB PO SCH (07:54)
[2023-08-15] MEDS ORDERED: predniSONE 5 MG TAB PO SCH (09:00)
[2023-08-15 09:42] LABS: Amphetamine Urine, Confirm 1424 ng/mL (<250); Methamphetamine, Ur Confirm 9727 ng/mL (<250)
[2023-08-15] MEDS: ADVANCED PROBIOTIC 625 MG CAPSULE PO SCH (12:07)
--- NOTE | 2023-08-15 13:49 | Pharmacy Report ---
Pharmacy PK ABX Note - Date of Service August 15, 2023 - Assessment and Plan Assessment 58 year old M receiving empiric vancomycin and Zosyn for treatment of right great toe necrosis w/ concern for possible osteomyelitis. No cultures obtained. Renal function appears to be at/near baseline. Podiatry and orthopedic surgery consulted. Possible debridement. Pertinent PMH includes PAD and Raynaud's dx. Renal function stable. Afebrile, no leukocytosis. Day #3 of antimicrobial therapy. Plan Vancomycin * Current regimen: 1500 mg IV every 12 hours * Random level obtained 08/15/23 resulted as 14.6 mcg/mL. This is predicted to achieve target AUC/KENAN of 400-600 mg/L.hr * Predicted AUC at steady state: 598 mg/L.hr * Continue 1500 mg IV every 12 hours * Will repeat level in the next 48-72 hours if therapy is continued and/or change in patient clinical status Zosyn * 4.5 g IV q8h, appropriately dosed based on indication/renal function Pharmacy will continue to follow and will adjust dose/frequency as necessary. Thank you. Pharmacy has transitioned to AUC monitoring for vancomycin. AUC/KENAN is the preferred PK/PD target and is associated with decreased risk of nephrotoxicity compared to traditional trough targets.
[2023-08-15] MEDS: VANCOMYCIN LEVEL ONE (16:19)
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
--- NOTE | 2023-08-15 22:19 | Orthopedic Progress Note ---
Date of Service August 15, 2023 Assessment & Plan (1) PAD (peripheral artery disease): (2) Open wound of right great toe with damage to nail: (3) Toe pain, right: Plan - patient examined and evaluated. - discussed future options for this right hallux ulceration. It likely would benefit from a sharp debridement, especially given his palpable arterial inflow. - With his concern for vascular disease overall, he may still have difficulty healing this and, in case, may benefit from Santyl enzymatic debridement. - I am working on getting this debridement scheduled here as an inpatient either tomorrow or Sunday depending on the operating room and my personal schedule. - If he is otherwise stable, he can likely be discharged and follow-up outpatient for this. There is no evidence of steven infection and, if this is necrosis, could use time to demarcate as well. - If his plan is to remain inpatient for the next 2-3 days anyway, we will continue to get this on the schedule. - Patient understands and we will continue to see him here for the foreseeable future. Admission and Anticipated Discharge Date Admission Date: August 13, 2023 Subjective patient seen at bedside. He denies any new complaints, especially to the foot and ankle. His right great toe wound has remained the same though pain has decreased to it. He has fewer local signs of infection but has not been having any wound care to the great toe either. He is still being worked up for vascular disease and has a history of heart disease as well. He denies any new nausea, vomiting, or fevers but has had some diarrhea associated with the antibiotic usage. Review of Systems Review of Systems: All systems reviewed & are unremarkable except as noted in Subjective Constitutional: no fever and no chills Eyes: no problem reported Ear, Nose, Mouth, Throat: no ear pain and no nasal congestion Respiratory: no cough, no chest congestion and no wheezing Cardiovascular: no chest pain, no edema and no calf pain Gastrointestinal: no abdominal pain, no nausea and no vomiting Genitourinary: no problem reported Musculoskeletal: + stiffness; no joint pain and no proble m reported Integumentary: + new lesions, + non-healing lesions, + changing lesions and + dry skin Neurologic: + generalized weakness, + loss of sensat ion, + numbness and + paresthesia Psychiatric: + behavioral changes, + depression and + hallucinations; no suicidal ideation Endocrine: no problem reported Physical Exam Physical Exam: Bilateral lower extremity focused exam: DP 1/4, PT pulses 2/4. CFT is brisk to the digits. Discoloration is noted to the distal aspect of the right hallux. No purulent drainage or fluctuance noted. Discoloration is noted, consistent with either gangrene or a deep hematoma to the distal aspect of the hallux. There is some scant passive bleeding, making a hematoma more likely. MRI is pending at this time. Distal cooling is noted and there is relative atrophy of the skin overall. There is mild hallux valgus and mild semirigid hammertoe deformities appreciated. No focal decrease in sensation subjective global decrease in sensation is noted to the foot and ankle bilaterally. Constitutional: WD/WN, vitals as above + disheveled Eyes: PERRL, conjunctivae normal, anicteric sclerae ENMT: external ear and nose normal, oropharynx normal Neck: trachea midline, no thyromegaly Respiratory: normal respiratory effort, lungs clear to auscultation normal respiratory effort; no respiratory distress Cardiovascular: RRR, no murmur, no edema Vessels: posterior tibial pulses present and dorsalis pedis pulses present Extremities: normal capillary refill Gastrointestinal (Abdomen): normal bowel sounds, soft, nontender, no hepatosplenomegaly Inspection/Auscultation: abdomen not distended Percussion/Palpation: no guarding Musculoskeletal: no cyanosis or clubbing, extremities motor strength 5/5 Head/Neck/Chest: normocephalic and head atraumatic Extremities: + limited ROM of extremities Skin: no rashes, warm and dry + lesion, + ulcer and + wound Neurologic: patellar DTR's 2+ bilat, sensation intact and PERRL, EOMI, accommodation nl, no face palsy, no dysarthria Psychiatric: A+Ox3, euthymic affect Results & Data Vital Signs (Past 12 Hours) Vital Signs Temp Pulse Pulse Pulse Resp BP BP 08/15/23 20:02 36.7 C 92 H 16 129/79 08/15/23 15:08 36.6 C 95 H 18 120/79 08/15/23 15:00 92 H 08/15/23 12:00 37.1 C 90 14 120/80 Pulse Ox O2 Del Method 08/15/23 20:02 96 Room Air 08/15/23 15:08 95 Room Air 08/15/23 15:00 08/15/23 12:00 95 Room Air Diagnostic Findings MRI reveals no skin involvement of the right hallux. There is no significant evidence of cellulitis, though there is extensive motion to the MRI so this would be difficult to visualize at this time. No abscesses or drainable lesions are noted (2) Open wound of right great toe with damage to nail Encounter type: initial encounter Qualified Code(s): S91.201A - Unspecified open wound of right great toe with damage to nail, initial encounter
[2023-08-16 06:50] LABS: Calcium 8.7 mg/dl (8.6-10.3); Creatinine Clr Calc Pharmacy 125.5 ml/min
[2023-08-16] MEDS ORDERED: HYDROmorphone INJ 1 MG/ML SYRINGE IV PRN (09:35)
[2023-08-16] MEDS ORDERED: ePHEDrine sulfate 50 MG/ML AMP IV PRN (09:35)
[2023-08-16] MEDS ORDERED: PROMETHAZINE HCL 6.25 MG in SODIUM CHLORIDE 0.9% 50 ML IV PRN (09:35)
[2023-08-16] MEDS ORDERED: fentaNYL citrate PF 100 MCG/2 ML VIAL IV PRN (09:35)
[2023-08-16] MEDS ORDERED: ATROPINE SULFATE 0.1 MG/ML 10ML SYR IV PRN (09:35)
[2023-08-16] MEDS ORDERED: ONDANSETRON INJ 2 MG/ML 2 ML VIAL IV PRN (09:35)
[2023-08-16] MEDS ORDERED: PROPOFOL IV EMULSION 10 MG/ML 20 ML VIAL IV ONE (09:37)
[2023-08-16] MEDS ORDERED: LIDOCAINE 2% 2 ML VIAL/AMP(20MG/ML) INFIL ONE (09:37)
[2023-08-16] MEDS ORDERED: ONDANSETRON INJ 2 MG/ML 2 ML VIAL ONE (09:38)
[2023-08-16] MEDS ORDERED: MIDAZOLAM HCL 1 MG/ML 2ML VIAL ONE (09:38)
[2023-08-16] MEDS ORDERED: fentaNYL citrate PF 100 MCG/2 ML VIAL ONE (09:38)
--- NOTE | 2023-08-16 09:39 | Anesthesiology Consultation ---
Date of Service August 16, 2023 Assessment & Plan (1) Encounter for pre-operative examination: Chart Review Chart Review: Acceptable Risk for Surgery and Patient NOT seen in Pre Admission Testing cardiology eval 08/13/23: Assessment & Plan (1) Elevated troponin: (2) Chronic combined systolic and diastolic CHF (congestive heart failure): (3) PAD (peripheral artery disease): (4) Raynauds disease: (5) Permanent atrial fibrillation: Plan IMPRESSION: Medically complex 58 year old male who presented to [facility] due to AMS/for psyc evaluation. Found to have an elevated HS troponin-- this appears to be chronic. Patient has known combined CHF with recent RHF noted on outpatient echo. Patient euvolemic on exam, no chest pain or dyspnea. Consults Requested none History Surgery Operation Date: 08/16/23 07:00 Proposed Procedures p Right Hallux Ulcer Debridement - Nilesh Somers DPM Height/Weight Height: 5 ft 9 in Weight: 100.4 kg Allergies Allergy/AdvReac Type Severity Reaction Status Date / Time No Known Allergies Allergy Verified 08/13/23 02:24 Medications Home Medications Medication Instructions Recorded Confirmed Last Taken aspirin 81 mg tablet,delayed 81 mg PO QAM 04/04/21 08/13/23 08/11/23 release (Bob Low Dose Aspirin) omeprazole 40 mg capsule,delayed 40 mg PO DAILYBB 04/04/21 08/13/23 08/11/23 release nitroglycerin 0.4 mg sublingual 0.4 mg sublingual .PRN/UD PRN 08/27/21 08/13/23 Unknown tablet Chest Pain rosuvastatin 5 mg tablet 5 mg PO QAM 08/27/21 08/13/23 08/11/23 sildenafil (pulm.hypertension) 20 20 mg PO BID 08/27/21 08/13/23 08/11/23 mg tablet sildenafil (pulm.hypertension) 20 40 mg PO HS 04/06/22 08/13/23 08/11/23 mg tablet tiotropium bromide 2.5 2 inh inhalation QAM 04/06/22 08/13/23 08/11/23 mcg/actuation mist for inhalation (Spiriva Respimat) alendronate 70 mg tablet 70 mg PO WK 07/05/22 08/13/23 08/10/23 furosemide 20 mg tablet 40 mg PO QAM 07/05/22 08/13/23 08/11/23 apixaban 5 mg tablet (Eliquis) 5 mg PO BID #60 tabs 07/10/22 08/13/23 08/11/23 cholecalciferol (vitamin D3) 10 10 mcg PO DAILY 08/13/23 08/13/23 08/11/23 mcg (400 unit) capsule (Vitamin D3) digoxin 125 mcg (0.125 mg) tablet 0.125 mcg PO DAILY 08/13/23 08/13/23 08/11/23 empagliflozin 10 mg tablet 10 mg PO QAM 08/13/23 08/13/23 08/11/23 (Jardiance) escitalopram oxalate 10 mg tablet 10 mg PO QAM 08/13/23 08/13/23 08/11/23 metoprolol succinate 100 mg 100 mg PO BID 08/13/23 08/13/23 08/11/23 tablet,extended release 24 hr metoprolol succinate 25 mg 25 mg PO BID 08/13/23 08/13/23 08/11/23 tablet,extended release 24 hr ondansetron HCl 4 mg tablet 4 mg PO Q8H PRN NAUSEA/VOMITING 08/13/23 08/13/23 Unknown oxycodone-acetaminophen 10 mg-325 1 tab PO Q6H PRN Pain, Severe 08/13/23 08/13/23 08/11/23 mg tablet prednisone 5 mg tablet 5 - 10 mg PO DAILY RHEUMATOID 08/13/23 08/13/23 08/11/23 ARTHRITIS sacubitril 24 mg-valsartan 26 mg 1 tab PO BID 08/13/23 08/13/23 08/11/23 tablet (Entresto) sarilumab 200 mg/1.14 mL 200 mg subcut .[id number] 08/13/23 08/13/23 Unknown subcutaneous pen injector (Monroeza) spironolactone 25 mg tablet 12.5 mg PO QAM 08/13/23 08/13/23 08/11/23 sulfasalazine 500 mg tablet 500 mg PO QAM 08/13/23 08/13/23 08/11/23 Active Medications Generic Name Dose Route Start Last Admin Trade Name Freq PRN Reason Stop Dose Admin Acetaminophen 650 mg 08/13/23 05:31 03/19/24 21:36 Acetaminophen 325 Mg Tab PO 09/12/23 05:30 650 mg Q4H PRN Administration Pain or Fever Apixaban 5 mg 08/13/23 09:00 08/14/23 08:24 Apixaban 5 Mg Tablet PO 09/12/23 08:59 5 mg BID MAIRA Administration Aspirin 81 mg 08/13/23 09:00 08/15/23 07:56 Aspirin 81 Mg Ectab PO 09/12/23 08:59 81 mg QAM MAIRA Administration Digoxin 0.125 mg 08/13/23 16:00 08/15/23 16:23 Digoxin 0.125 Mg Tab PO 09/12/23 15:59 0.125 mg DAILY@1600 MAIRA Administration Escitalopram Oxalate 10 mg 08/15/23 09:00 08/15/23 07:54 Escitalopram Oxalate 10 Mg Tab PO 09/14/23 08:59 10 mg QAM MAIRA Administration Furosemide 40 mg 08/13/23 09:00 08/15/23 07:55 Furosemide 40 Mg Tab PO 09/12/23 08:59 40 mg QAM MAIRA Administration Heparin Sodium (Porcine) 5,000 units 08/14/23 22:00 08/16/23 05:39 Heparin Sod 5,000 Unit/0.5 Ml Vial SQ 09/13/23 21:59 5,000 units Q8 MAIRA Administration Piperacillin Sod/Tazobactam 100 mls @ 25 mls/hr 08/13/23 12:00 08/16/23 04:25 Sod 4.5 gm/ Dextrose IV 08/20/23 11:59 25 mls/hr Q8H MAIRA Administration Protocol Vancomycin HCl 1,500 mg/ 530 mls @ 200 mls/hr 08/14/23 02:00 08/16/23 04:24 Sodium Chloride IV 08/21/23 01:59 Infused Q12H MAIRA Infusion Lactobacillus Acidophilus 1,250 mg 08/15/23 11:15 08/15/23 12:07 Advanced Probiotic 625 Mg Capsule PO 09/14/23 11:14 1,250 mg DAILY MAIRA Administration Metoprolol Succinate 100 mg 08/13/23 09:00 08/15/23 20:12 Metoprolol Succ 50mg Ext Rel Tab PO 09/12/23 08:59 100 mg BID MAIRA Administration Metoprolol Succinate 25 mg 08/13/23 09:00 08/15/23 20:12 Metoprolol Succ 25mg Ext Rel Tab PO 09/12/23 08:59 25 mg BID MAIRA Administration Oxycodone/Acetaminophen 1 tab 08/13/23 05:31 08/15/23 20:10 Oxycodone/Acetaminophen 10-325 Tab PO 08/27/23 05:30 1 tab Q6H PRN Administration Pain, Severe Pantoprazole Sodium 40 mg 08/13/23 06:30 08/16/23 05:39 Pantoprazole 40 Mg Tab PO 09/12/23 06:29 40 mg DAILYBB MAIRA Administration Rosuvastatin Calcium 5 mg 08/13/23 09:00 08/15/23 07:55 Rosuvastatin Calcium 5 Mg Tab PO 09/12/23 08:59 5 mg QAM MAIRA Administration Sacubitril/Valsartan 1 tab 08/13/23 09:00 08/15/23 21:58 Valsartan/Sacubitril 26/24mg Tab PO 09/12/23 08:59 1 tab BID MAIRA Administration Sildenafil Citrate 40 mg 08/13/23 21:00 08/15/23 20:11 Sildenafil Citrate 20 Mg Tablet PO 09/12/23 20:59 40 mg HS MAIRA Administration Sildenafil Citrate 20 mg 08/14/23 07:30 08/15/23 15:13 Sildenafil Citrate 20 Mg Tablet PO 09/13/23 07:29 20 mg BID@0730,1200 MAIRA Administration Spironolactone 12.5 mg 08/13/23 09:00 08/15/23 07:55 Spironolactone 12.5 Mg Tab PO 09/12/23 08:59 12.5 mg QAM MAIRA Administration Sulfasalazine 500 mg 08/13/23 09:00 08/15/23 07:55 Sulfasalazine 500 Mg Tablet PO 09/12/23 08:59 500 mg QAM MAIRA Administration Umeclidinium [place] 1 puffs 08/13/23 09:00 08/15/23 07:56 Umeclidinium [place] 62.5mcg/Blister 7 Puffs/Inhaler INH 09/12/23 08:59 1 puffs QAM MAIRA Administration Vitamin D 10 mcg 08/13/23 09:00 08/15/23 07:56 Cholecalciferol 10 Mcg (400 Units) Tab PO 09/12/23 08:59 10 mcg DAILY MAIRA Administration Past Medical History Medical History (Updated 08/16/23 @ 09:41 by Gio Browning MD) Encounter for pre-operative examination Raynauds disease PAD (peripheral artery disease) HTN (hypertension) Hepatitis C Anemia Lung nodules HFrEF (heart failure with reduced ejection fraction) Chronic steroid use Long-term use of high-risk medication Rheumatoid arthritis GERD (gastroesophageal reflux disease) Pre-diabetes Erectile dysfunction Tobacco use disorder Past Family History Family History Other Heart disease Hypertension Past Surgical History Surgical History History of cardiac cath History of colonoscopy Hx of tonsillectomy Social History Smoking Status: Current some day smoker tobacco type: cigarettes Smoking cigarettes per day: 8-10 Do You Dip or Chew Tobacco: No Hx Alcohol Use: No Hx Substance Use: No substance use type: former substance user Last Used Substance: Hours (ago) Last Used Substance Other:: 14 hrs ago Physical Exam Vital Signs Last Vital Signs Temp 36.5 C 08/16/23 07:32 Pulse 81 08/16/23 07:32 Resp 18 08/16/23 07:32 BP 164/82 H 08/16/23 07:32 Pulse Ox 94 08/16/23 07:32 O2 Del Method Room Air 08/16/23 07:32 O2 Flow Rate 2 08/13/23 14:17 Testing Laboratory Results 08/14/23 06:24 08/16/23 05:39 Hemoglobin A1c 6.0 % (4.5-5.6) H 08/13/23 07:38 Urine Color Dark Yellow 08/13/23 03:10 Urine Appearance Clear (Clear) 08/13/23 03:10 Urine pH 6.0 (4.5-7.5) 08/13/23 03:10 Ur Specific [place] 1.027 (1.000-1.030) 08/13/23 03:10 Urine Protein Trace (Negative) H 08/13/23 03:10 Urine Glucose (UA) 3+ (Negative) H 08/13/23 03:10 Urine Ketones Negative (Negative) 08/13/23 03:10 Urine Nitrite Negative (Negative) 08/13/23 03:10 Ur Leukocyte Esterase Negative (Negative) 08/13/23 03:10 Urine WBC (Auto) 0 /hpf (0-5) 08/13/23 03:10 Urine RBC (Auto) 0-4 /hpf (0-4) 08/13/23 03:10 U Hyaline Cast (Auto) 0 /lpf (0-5) 08/13/23 03:10 U Epithel Cells (Auto) 0-5 /lpf (0-5) 08/13/23 03:10 Urine Bacteria (Auto) Negative (Negative) 08/13/23 03:10 Electrocardiogram Date: 08/13/23 DICTATED BY: Johnathon Craft MD Test Reason : Blood Pressure : / mmHG Vent. Rate : 097 BPM Atrial Rate : 000 BPM P-R Int : 000 ms QRS Dur : 082 ms QT Int : 342 ms P-R-T Axes : 000 112 153 degrees QTc Int : 434 ms Atrial fibrillation Right axis deviation Low voltage QRS Incomplete right bundle branch block Abnormal ECG When compared with ECG of 16-JUL-2022 01:06, Atrial fibrillation has replaced Sinus rhythm Confirmed by Johnathon Craft ([id number]) on 08/13/2023 9:54:57 AM Echocardiogram Date: 08/13/23 EF 5-55% LVH RV systolic function is moderately reduced Moderate biatrial enlargement no pulm HTN
--- NOTE | 2023-08-16 10:02 | History & Physical Bridge Note ---
Date of Service August 16, 2023 History & Physical Bridge Note I have examined the patient, reviewed the History & Physical and in the interval since the performance of the History & Physical I have noted the following changes of clinical significance: no changes noted. Plan for right allux I&D. Consent obtained.
[2023-08-16] MEDS: BUPIVACAINE 0.5 % 5 MG/1 ML MPF 30ML VIAL ONE (10:32)
--- NOTE | 2023-08-16 10:44 | Post Operative Brief Note ---
Immediate Post Op Note v1 Date of Surgery August 16, 2023 Pre & Post Diagnosis Operation Date: 08/16/23 07:00 Pre-Op Diagnosis: (1) PAD (peripheral artery disease): (2) Open wound of right great toe with damage to nail: (3) Toe pain, right: Post-Op Diagnosis: (1) PAD (peripheral artery disease): (2) Open wound of right great toe with damage to nail: (3) Toe pain, right: I identified the patient and participated in the time-out.: Yes Procedure Operation Date: 08/16/23 07:00 Actual Procedures p Right Hallux Ulcer Debridement(Right) - Nilesh Somers DPM Surgeon Nilesh Somers DPM Engine Lathe Tender None Estimated Blood Loss 2 Findings Consistent with Post-Op Diagnosis Specimens Bone biopsy for path Bone for C&S Anesthesia Type MAC Complications none Disposition Accompanied Patient To Recovery: Yes Disposition: Recovery Room Overlapping Procedure I was immediately available: during the entire case.
[2023-08-16] MEDS: predniSONE 10 MG TABLET PO SCH (12:12)
[2023-08-16] MEDS: INFLUENZA VIRUS QUADRIVALENT VACCINE (IIV4) 0.5 ML SYR IM ONE (13:09)
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
--- NOTE | 2023-08-16 16:50 | Anesthesiology Progress Note ---
Date of Service August 16, 2023 Anesthesia Post Procedure Vital Signs Vital Signs: Temp Pulse Pulse Pulse Resp BP BP 08/16/23 16:20 70 08/16/23 16:19 86 08/16/23 15:57 36.7 C 80 20 104/68 08/16/23 12:20 36.5 C 91 H 18 131/90 08/16/23 11:50 36.5 C 75 16 113/76 08/16/23 11:28 36.7 C 79 16 114/73 08/16/23 11:10 36.6 C 81 12 111/80 08/16/23 11:00 79 12 105/71 08/16/23 10:50 36.0 C L 90 14 100/69 08/16/23 09:34 36.7 C 83 20 126/89 08/16/23 07:32 36.5 C 81 18 164/82 H 08/16/23 03:49 36.5 C 73 20 110/72 08/15/23 22:00 92 H 08/15/23 20:02 36.7 C 92 H 16 129/79 Pulse Ox O2 Del Method O2 Flow Rate 08/16/23 16:20 08/16/23 16:19 08/16/23 15:57 95 Room Air 08/16/23 12:20 95 Room Air 08/16/23 11:50 97 Room Air 08/16/23 11:28 96 Room Air 08/16/23 11:10 95 Room Air 0 08/16/23 11:00 94 Room Air 0 08/16/23 10:50 96 Oxymask 8 08/16/23 09:34 96 Room Air 08/16/23 07:32 94 Room Air 08/16/23 03:49 96 Room Air 08/15/23 22:00 08/15/23 20:02 96 Room Air Pain Intensity Right Great Toe: Pain Intensity: 7 Bilateral Generalized: Pain Intensity: 0 Transfer of Care Handoff Completed per policy Notes Mental Status: alert / awake / arousable and participated in evaluation Patient Amnestic to Procedure: Yes Nausea / Vomiting: adequately controlled Pain: adequately controlled Airway Patency, RR, SpO2: stable & adequate BP & HR: stable & adequate Hydration State: stable & adequate Anesthetic Complications: no major complications apparent and Pt Satisfied with anesthetic care
[2023-08-17] MEDS: ALENDRONATE SODIUM 70 MG TAB PO SCH (05:53)
[2023-08-17 06:08] LABS: Hematocrit (blood only) 43.2 % (42.0-52.0); Mean Corpuscular Hemoglobin 28.7 pg (25.0-34.0); Mean Corpuscular Hgb Conc 32.4 g/dL (32.0-36.0); Mean Corpuscular Volume 88.7 fL (80.0-100.0); Mean Platelet Volume 9.7 fL (9.4-12.4); Platelet Count 307 K/uL (130-400); RDW Coefficient of Variation 17.2 % (11.5-14.5); RDW Standard Deviation 55.9 fL (36.4-46.3); Red Blood Count 4.87 M/uL (4.70-6.10); White Blood Count 8.59 K/ul (4.8-10.8)
[2023-08-17 06:27] LABS: BUN Creatinine Ratio 22.8 (10-20); Calcium 9.3 mg/dl (8.6-10.3); Est GFR (African American) 105.1 ml/min; Est GFR (Non-African American) 90.7 ml/min; Potassium 3.9 mmol/L (3.5-5.1)
[2023-08-17] MEDS ORDERED: ALENDRONATE SODIUM 70 MG TAB PO SCH (06:30)
--- NOTE | 2023-08-17 07:59 | Communication Note ---
Date of Service: August 17, 2023 interim progress reviewed as follow up to initial psychiatric consultation. Patient's meth level was >9700, he's continuously denied use but certainly that could explain his irritability at home as otherwise calm and cooperative in hospital/various procedures. He's still wanting to stay with his mother on discharge from the hospital. He is taking Lexapro as prescribed and can f/u with PCP.
[2023-08-17] MEDS: VANCOMYCIN LEVEL ONE (13:36)
--- NOTE | 2023-08-17 13:46 | Pharmacy Report ---
Pharmacy PK ABX Note - Date of Service August 17, 2023 - Assessment and Plan Assessment 08/16: Reviewed vancomycin level, predicting a therapeutic AUC/KENAN. Continue current regimen 08/14: 58 year old M receiving empiric vancomycin and Zosyn for treatment of right great toe necrosis w/ concern for possible osteomyelitis. No cultures obtained. Renal function appears to be at/near baseline. Podiatry and orthopedic surgery consulted. Possible debridement. Pertinent PMH includes PAD and Raynaud's dx. Renal function stable. Afebrile, no leukocytosis. Day #3 of antimicrobial therapy. Plan Vancomycin * Current regimen: 1500 mg IV every 12 hours * Random level obtained 08/17/23 resulted as 15.8 mcg/mL. This is predicted to achieve target AUC/KENAN of 400-600 mg/L.hr * Predicted AUC at steady state: 587 mg/L.hr * Continue 1500 mg IV every 12 hours * Will repeat level in the next 48-72 hours if therapy is continued and/or change in patient clinical status Zosyn * 4.5 g IV q8h, appropriately dosed based on indication/renal function Pharmacy will continue to follow and will adjust dose/frequency as necessary. Thank you. Pharmacy has transitioned to AUC monitoring for vancomycin. AUC/KENAN is the preferred PK/PD target and is associated with decreased risk of nephrotoxicity compared to traditional trough targets.
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
--- NOTE | 2023-08-17 21:36 | Operative Report ---
Post Operative Report Pre & Post Diagnosis Operation Date: 08/16/23 07:00 Pre-Op Diagnosis: (1) PAD (peripheral artery disease): (2) Open wound of right great toe with damage to nail: (3) Toe pain, right: Post-Op Diagnosis: (1) PAD (peripheral artery disease): (2) Open wound of right great toe with damage to nail: (3) Toe pain, right: I identified the patient and participated in the time-out.: Yes Procedure Operation Date: 08/16/23 07:00 Actual Procedures p Right Hallux Ulcer Debridement(Right) - Nilesh Somers DPM Surgeon Nilesh Somers DPM Necktie Turner None Estimated Blood Loss 2 Findings Consistent with Post-Op Diagnosis after debridement of the overlying hematoma and nonviable tissue, the wound to the tip of the hallux extended directly to the tip of the distal phalanx. Black Topper samples were able to be obtained and sent for pathology and culture and sensitivity testing. Specimens pathology and culture from the distal aspect of the hallux were sent for testing Anesthesia Type MAC Complications none Disposition Accompanied Patient To Recovery: Yes Disposition: Recovery Room Indications this patient is a recent hospital consult of ours who was admitted with worsening changes to his right hallux. He states that it has been present for several weeks and initially began as a pinpoint lesion and has worsened to cover the extent of the distal toe. He has lost the tip of his index finger because of a similar lesion that appeared a similar time before that. He denies any local or systemic signs or symptoms of infection but does admit to increasing pain and this current discoloration. He states that he is feeling well on this hospitalization. We did discuss risks and alternatives to surgical prevention, including, most possibly, wound care and collagenase ointment. This could be beneficial, though given his relatively good blood flow, he could also benefit more definitively from this surgical debridement. Preoperative instructions, postoperative instructions, relative risks, and outcomes were all discussed. All questions were answered. Consent was obtained for this procedure. Description of Procedure the patient was brought to the operating room placed on the operating table in the supine position. Follow menstruation of IV sedation, local analgesia was obtained utilizing 20 cc of half percent Marcaine plain in a digital block fashion. The right lower extremity was then scrubbed, prepped, and draped in t he usual aseptic manner. No tourniquet was utilized due to the ischemic appearing ulceration, despite pedal pulses being palpable. Attention was directed to the right hallux where the necrotic or nonviable tip of the toe was immediately identified. The distal aspect of the toe was consistent with either problem prior trauma or well-circumscribed necrosis. The nonviable tissue was excised, measuring 2.2 cm x 1.5 cm in surface area. After removal of the nonviable blackened tissue and eschar, the distal phalanx tuft was immediately identified. It was noted to be clinically healthy and hardened but still immediately palpable. With this direct extension, c s s representative samples of the bone were obtained utilizing a rongeur and sent for pathology testing and bone culture and sensitivity. This toe was then dressed with Xeroform gauze, 4 x 4 gauze, Kerlix, and an Jung wrap. The patient tolerated the procedure well and was transferred to the recovery room with vital signs stable and vascular status intact to the feet. Following postoperative monitoring, the patient prescriptions and instructions which were discussed with him prior to surgery and transferred back to the floor for con tinued monitoring. I attest to the content of the Intraoperative Record and any orders documented therein. Any exceptions are noted below.
--- NOTE | 2023-08-17 21:53 | Orthopedic Progress Note ---
Date of Service August 17, 2023 Assessment & Plan (1) PAD (peripheral artery disease): (2) Open wound of right great toe with damage to nail: (3) Toe pain, right: Plan - patient examined and evaluated. - discussed future options for this right hallux ulceration. - because of the underlying bone involvement, this should be treated as osteomyelitis. Culture and pathology testing is still pending, though a culture could still be negative because of the IV antibiotic course that he was on preoperatively. - we did discuss that the potential treatments moving forward essentially either 6-8 weeks of IV antibiotics with infectious disease physicians versus a distal phalangeal amputation. We did discuss that either 1 of these can work that way amputation would be more definitive and would allow for a quicker return to activity. - Patient understands these options and will consider them here in the next couple of days. - If he is otherwise medically stable, and has IV antibiotics set up or even a short term of oral antibiotics if he elects for amputation, this can be performed on an outpatient basis. In this case, he would be sent home with oral antibiotics and plan a distal phalanx amputation within the next week or 2. - while he is in-house, we will continue to keep a hand, though will likely follow up next on Sunday unless he worsens over that time. - in the short-term, he can leave the surgical dressing intact and ambulate in this dressing and surgical shoe. If any physicians or providers would like to inspect it, they can take down the dressing and redress it themselves oor consult wound care. Admission and Anticipated Discharge Date Admission Date: August 13, 2023 Subjective patient seen at bedside today, one day status post right hallux incision and drainage and debridement to the level of the bone. He is doing well with no new signs of infection. He is resting comfortably in his bed with his family. Denies any new signs or symptoms of infection. Denies any severe pain to the foot overall. States that he has met with infectious disease virtually and is more interested in saving his toe if possible. Review of Systems Constitutional: no fever and no chills Eyes: no problem reported Ear, Nose, Mouth, Throat: no ear pain and no nasal congestion Respiratory: no cough, no chest congestion and no wheezing Cardiovascular: no chest pain, no edema and no calf pain Gastrointestinal: no abdominal pain, no nausea and no vomiting Genitourinary: no problem reported Musculoskeletal: + stiffness; no joint pain and no proble m reported Integumentary: + new lesions, + non-healing lesions, + changing lesions and + dry skin Neurologic: + generalized weakness, + loss of sensat ion, + numbness and + paresthesia Psychiatric: + behavioral changes, + depression and + hallucinations; no suicidal ideation Endocrine: no problem reported Physical Exam Physical Exam: Bilateral lower extremity focused exam: DP 1/4, PT pulses 2/4. CFT is brisk to the digits. Discoloration is noted to the distal aspect of the right hallux. No purulent drainage or fluctuance noted. Discoloration is noted, consistent with either gangrene or a deep hematoma to the distal aspect of the hallux. There is some scant passive bleeding, making a hematoma more likely. MRI is pending at this time. Distal cooling is noted and there is relative atrophy of the skin overall. There is mild hallux valgus and mild semirigid hammertoe deformities appreciated. No focal decrease in sensation subjective global decrease in sensation is noted to the foot and ankle bilaterally. Constitutional: WD/WN, vitals as above + disheveled Eyes: PERRL, conjunctivae normal, anicteric sclerae ENMT: external ear and nose normal, oropharynx normal Neck: trachea midline, no thyromegaly Respiratory: normal respiratory effort, lungs clear to auscultation normal respiratory effort; no respiratory distress Cardiovascular: RRR, no murmur, no edema Vessels: posterior tibial pulses present and dorsalis pedis pulses present Extremities: normal capillary refill Gastrointestinal (Abdomen): normal bowel sounds, soft, nontender, no hepatosplenomegaly Inspection/Auscultation: abdomen not distended Percussion/Palpation: no guarding Musculoskeletal: no cyanosis or clubbing, extremities motor strength 5/5 Head/Neck/Chest: normocephalic and head atraumatic Extremities: + limited ROM of extremities Skin: no rashes, warm and dry + lesion, + ulcer and + wound Neurologic: patellar DTR's 2+ bilat, sensation intact and PERRL, EOMI, accommodation nl, no face palsy, no dysarthria Psychiatric: A+Ox3, euthymic affect Results & Data Vital Signs (Past 12 Hours) Vital Signs Temp Pulse Pulse Resp BP BP Pulse Ox 08/17/23 19:41 36.4 C L 105 H 18 97/65 L 96 08/17/23 16:09 82 08/17/23 15:49 36.7 C 93 H 18 109/69 94 08/17/23 15:00 91 H 08/17/23 11:56 36.5 C 95 H 18 126/74 95 O2 Del Method 08/17/23 19:41 Room Air 08/17/23 16:09 08/17/23 15:49 Room Air 08/17/23 15:00 08/17/23 11:56 Room Air (2) Open wound of right great toe with damage to nail Encounter type: initial encounter Qualified Code(s): S91.201A - Unspecified open wound of right great toe with damage to nail, initial encounter
[2023-08-18 05:32] LABS: BUN Creatinine Ratio 25.6 (10-20); Calcium 9.1 mg/dl (8.6-10.3); Creatinine Clr Calc Pharmacy 119.1 ml/min; Est GFR (African American) 114.5 ml/min; Est GFR (Non-African American) 98.8 ml/min; Potassium 3.8 mmol/L (3.5-5.1)
[2023-08-18] MEDS: predniSONE 5 MG TAB PO SCH (10:00)
[2023-08-18] MEDS ORDERED: LOPERAMIDE HCL 2 MG CAP PO PRN (16:17)
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
[2023-08-18] MEDS: SODIUM CHLORIDE 0.9% 1,000 ML IV ONE (16:49)
[2023-08-19 04:58] LABS: Hematocrit (blood only) 40.3 % (42.0-52.0); Hemoglobin 13.1 g/dl (14.0-18.0); Mean Corpuscular Hemoglobin 28.7 pg (25.0-34.0); Mean Corpuscular Hgb Conc 32.5 g/dL (32.0-36.0); Mean Corpuscular Volume 88.4 fL (80.0-100.0); Mean Platelet Volume 9.8 fL (9.4-12.4); Platelet Count 296 K/uL (130-400); RDW Coefficient of Variation 17.3 % (11.5-14.5); RDW Standard Deviation 56.1 fL (36.4-46.3); Red Blood Count 4.56 M/uL (4.70-6.10); White Blood Count 6.68 K/ul (4.8-10.8)
[2023-08-19 05:10] LABS: BUN Creatinine Ratio 26.1 (10-20); Calcium 8.4 mg/dl (8.6-10.3); Creatinine Clr Calc Pharmacy 132.6 ml/min; Est GFR (African American) 120.4 ml/min; Est GFR (Non-African American) 103.9 ml/min; Potassium 3.7 mmol/L (3.5-5.1)
[2023-08-19] MEDS: OPTIRAY 350 500ml IV ONE (11:13)
--- NOTE | 2023-08-19 11:33 | CT Scan Report ---
CT angio chest PE protocol CLINICAL HISTORY: PE TECHNIQUE: Multidetector row helical CT of the chest was performed with angiographic protocol. [place] l and sagittal reformations were obtained. Coronal and sagittal MIPS were obtained from the axial ursula a set and were submitted for review. Automated dose lowering techniques and/or adjustment according to patient size were utilized for this exam. CT DOSE: 879.13 mGy.cm Comparison: Comparison is made to CT chest 08/25/2021 FINDINGS: Lungs and pleura: Atelectasis versus scarring is seen in the dependent portions of the lungs. There i s a 21 mm nodule in the left upper lobe (series 4 image 133). Minimal atelectasis is seen. There is a 9 mm nodule in the pleura of the right upper lobe. Heart and pericardium: Cardiomegaly is seen with biatrial enlargement. Vessels: No evidence of pulmonary embolism. Moderate atherosclerotic disease is seen. Mediastinum and jayne: Subcentimeter lymph nodes are seen. Chest wall and lower neck: Unremarkable. Abdomen: A hiatal hernia is seen. Bones: Degenerative changes in the thoracic spine and bilateral shoulder joints. IMPRESSION: 1. No evidence of pulmonary embolus. 2. Bilateral anterior pulmonary nodules are stable to minimally decreased in size from prior exam. Previously noted cavitary nodule in the right upper lobe has resolved. These are favored to be benign given lack of growth from 202, however follow-up is recommended. ACT 112: Negative or not required by law. Electronically signed by: Ney Small M.D. 08/19/2023 11:30 AM
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
--- NOTE | 2023-08-19 14:54 | Electrocardiogram Report ---
Test Reason : Blood Pressure : / mmHG Vent. Rate : 094 BPM Atrial Rate : 067 BPM P-R Int : 000 ms QRS Dur : 090 ms QT Int : 360 ms P-R-T Axes : 000 106 152 degrees QTc Int : 450 ms Atrial fibrillation Rightward axis Diffuse Nonspecific T wave abnormality Normal sinus rhythm Lateral leads Abnormal ECG When compared with ECG of 13-AUG-2023 02:18, Inverted T waves have replaced nonspecific T wave abnormality in Lateral leads Confirmed by Logan Staley ([id number]) on 08/19/2023 2:54:23 PM Referred By: REFERRED SELF Confirmed By:Logan Staley
[2023-08-20] MEDS ORDERED: FUROSEMIDE 40 MG TAB PO SCH (04:25)
[2023-08-20] MEDS: FUROSEMIDE 40 MG/4 ML VIAL IV ONE (05:33)
[2023-08-20] MEDS: ALBUMIN 25% 25 GM/100 ML VIAL IV ONE (05:35)
[2023-08-20 06:16] LABS: Chol HDL Ratio 2.4 (0-5)
--- NOTE | 2023-08-20 12:55 | Pharmacy Report ---
Pharmacy PK ABX Note - Date of Service August 20, 2023 - Assessment and Plan Assessment 08/19: Today is day #8 of vancomycin for right great toe osteomyelitis. Plan is likely for 6 weeks of antibiotic therapy. Foot culture showing skin john. Renal function remains stable. Afebrile w/ no overt leukocytosis. 08/16: Reviewed vancomycin level, predicting a therapeutic AUC/KENAN. Continue current regimen 08/14: 58 year old M receiving empiric vancomycin and Zosyn for treatment of r ight great toe necrosis w/ concern for possible osteomyelitis. No cultures obtained. Renal function appears to be at/near baseline. Podiatry and orthopedic surgery consulted. Possible debridement. Pertinent PMH includes PAD and Raynaud's dx. Renal function stable. Afebrile, no leukocytosis. Day #3 of antimicrobial therapy. Plan Vancomycin * Current regimen: 1500 mg IV every 12 hours * Random level obtained 08/20/23 resulted as 16.9 mcg/mL. This is predicted to achieve target AUC/KENAN of 400-600 mg/L.hr * Predicted AUC at steady state: 483 mg/L.hr * Continue 1500 mg IV every 12 hours * Will repeat level in the next 48-72 hours if therapy is continued and/or change in patient clinical status Pharmacy will continue to follow and will adjust dose/frequency as necessary. Thank you. Pharmacy has transitioned to AUC monitoring for vancomycin. AUC/KENAN is the preferred PK/PD target and is associated with decreased risk of nephrotoxicity compared to traditional trough targets.
[2023-08-20] MEDS: VANCOMYCIN LEVEL ONE (13:32)
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
--- NOTE | 2023-08-20 21:39 | Communication Note ---
Date of Service: August 20, 2023 Made aware by RN of SBP 80s to 120s last 24 hours Patient asymptomatic. Decrease current Toprol dose of 125 mg p.o. twice daily to 25 mg p.o. twice daily for now given episodic hypotension.
--- NOTE | 2023-08-20 21:50 | Orthopedic Progress Note ---
Date of Service August 20, 2023 Assessment & Plan (1) PAD (peripheral artery disease): (2) Open wound of right great toe with damage to nail: (3) Toe pain, right: Plan - patient examined and evaluated. - At this point, he is amenable to distal toe amputation. Will plan this partial toe amputation for Sunday around lunch time. - After this, assuming clean surgical margins, he can likely be d/c home on with 2 weeks oral antibiotics. - Will place preoperative orders before hand. Surgery is scheduled. Admission and Anticipated Discharge Date Admission Date: August 13, 2023 Subjective Pt seen at bedside. Comfortable. Eating lunch. Is having some skin reactions to vancomycin and would like other options rather than IV antibiotics at this point. Denies any new s/s of infection. Review of Systems Constitutional: no fever and no chills Eyes: no problem reported Ear, Nose, Mouth, Throat: no ear pain and no nasal congestion Respiratory: no cough, no chest congestion and no wheezing Cardiovascular: no chest pain, no edema and no calf pain Gastrointestinal: no abdominal pain, no nausea and no vomiting Genitourinary: no problem reported Musculoskeletal: + stiffness; no joint pain and no proble m reported Integumentary: + new lesions, + non-healing lesions, + changing lesions and + dry skin Neurologic: + generalized weakness, + loss of sensat ion, + numbness and + paresthesia Psychiatric: + behavioral changes, + depression and + hallucinations; no suicidal ideation Endocrine: no problem reported Physical Exam Physical Exam: Bilateral lower extremity focused exam: DP 1/4, PT pulses 2/4. CFT is brisk to the digits. Dressing removed, wound shows no healing, distal phalanx noted to wound with no ascending cellulitis or purulence. Local edema, erythema noted. Pain is noted on palpation and dressing change. Constitutional: WD/WN, vitals as above + disheveled Eyes: PERRL, conjunctivae normal, anicteric sclerae ENMT: external ear and nose normal, oropharynx normal Neck: trachea midline, no thyromegaly Respiratory: normal respiratory effort, lungs clear to auscultation normal respiratory effort; no respiratory distress Cardiovascular: RRR, no murmur, no edema Vessels: posterior tibial pulses present and dorsalis pedis pulses present Extremities: normal capillary refill Gastrointestinal (Abdomen): normal bowel sounds, soft, nontender, no hepatosplenomegaly Inspection/Auscultation: abdomen not distended Percussion/Palpation: no guarding Musculoskeletal: no cyanosis or clubbing, extremities motor strength 5/5 Head/Neck/Chest: normocephalic and head atraumatic Extremities: + limited ROM of extremities Skin: no rashes, warm and dry + lesion, + ulcer and + wound Neurologic: patellar DTR's 2+ bilat, sensation intact and PERRL, EOMI, a ccommodation nl, no face palsy, no dysarthria Psychiatric: A+Ox3, euthymic affect Results & Data Vital Signs (Past 12 Hours) Vital Signs Temp Pulse Pulse Resp BP BP Pulse Ox 08/20/23 18:59 36.4 C L 87 18 103/64 93 08/20/23 16:07 99 H 08/20/23 15:11 36.5 C 94 H 20 106/72 95 08/20/23 11:40 36.5 C 89 20 96/61 L 95 O2 Del Method 08/20/23 18:59 Room Air 08/20/23 16:07 08/20/23 15:11 Room Air 08/20/23 11:40 Room Air (2) Open wound of right great toe with damage to nail Encounter type: initial encounter Qualified Code(s): S91.201A - Unspecified open wound of right great toe with damage to nail, initial encounter
[2023-08-21 05:41] LABS: Hematocrit (blood only) 39.4 % (42.0-52.0); Hemoglobin 12.3 g/dl (14.0-18.0); Mean Corpuscular Hemoglobin 27.9 pg (25.0-34.0); Mean Corpuscular Hgb Conc 31.2 g/dL (32.0-36.0); Mean Corpuscular Volume 89.3 fL (80.0-100.0); Mean Platelet Volume 9.9 fL (9.4-12.4); Platelet Count 307 K/uL (130-400); RDW Coefficient of Variation 17.4 % (11.5-14.5); RDW Standard Deviation 56.8 fL (36.4-46.3); Red Blood Count 4.41 M/uL (4.70-6.10); White Blood Count 7.83 K/ul (4.8-10.8)
[2023-08-21 05:57] LABS: BUN Creatinine Ratio 30.1 (10-20); Calcium 9.1 mg/dl (8.6-10.3); Creatinine Clr Calc Pharmacy 128.9 ml/min; Est GFR (African American) 117.7 ml/min; Est GFR (Non-African American) 101.5 ml/min; Potassium 3.7 mmol/L (3.5-5.1)
[2023-08-21] MEDS: FUROSEMIDE 40 MG TAB PO SCH (08:20)
--- NOTE | 2023-08-21 10:56 | Psychiatric Progress Note ---
Date of Service August 21, 2023 Impression / Recommendations Impression 58 yo male with steroid dependent RA and a variety of other medical conditions dealing with chronic pain, both of which can contribute to irritability which is then amplified with martial discord. He does not feel unsafe at home and would prefer to stay with mother for a few days until things "calm down." Currently cooperative with medical care. 07/23/2023: The patient is reports that he is doing pretty well and is denying any suicidal thoughts. He seems somewhat goal-directed. However, his girlfriend has expressed concerns that he may be suicidal. He has many risk factors including multiple medical issues, pain, and being a white male. He has been on Lexapro for approximately 3 weeks which should be on the verge of helping. (1) Depressive disorder: Plan I agree with the ED assessment that there is no evidence of active psychosis, ron, or delirium currently interfering with his medical decision making (302 already declined by ED physician). continue Lexapro and outpatient therapy minimize steroid, ?TSH trending up--defer to hospitalist/PCP there is no indication for inpatient psychiatric hospitalization at this time. await confirmatory test on urine tox 08/20/2023: I do not think the patient is in acute danger in the hospital. He is looking forward to the surgery and thinks that will help him overall. We will continue with the Lexapro 10 mg daily. I will continue to follow with him over the next couple of days. On , we will need to decide if he is ready to go home or if he will need further hospitalization on the psychiatric unit for safety. At the moment, he seems amenable to treatment and getting help. We will also want to make sure we set him up with some outpatient individual therapy if possible. 08/21/2023: I will continue to monitor the situation and check in with the patient daily. According to Dr. Somers, it looks like the patient may be ready for discharge on , August 22. We will continue with the Lexapro. At the moment, I suspect we will not have to admit him to the psychiatric unit and just set him up with outpatient individual therapy and medication management. However, we will take it a day at a time. Today I spent 40 minutes on the case. This included meeting with the patient, reviewing the chart, discussing the case with the psychiatric nurse liaison, discussing the case with the attending physician and orthopedic surgeon, and documentation. Suicide Risk Level Suicide Risk Level: Low (q15 min observation checks) Interval History Identifying Information 58 yo male with from [place], brought to ED on 08/12 on a 302 warrant for alleged inability to care for self. The warrant was declined in ED but he was admitted medically for further assessment/evaluation. Chief Complaint "Because of an infected toe." Subjective Subjective Today I met with the patient, reviewed his chart, and also texted with the attending physician and the orthopedic surgeon. Harrison is in our hospital due to multiple medical issues. He is going to undergo a partial amputation of his right big toe tomorrow around midday. Patient said he was able to get some good sleep and his appetite is good. He says his mood is a little bit better. He looks a little better groomed and made better eye contact with me. I asked him about what we had heard from his girlfriend regarding his overdose of methamphetamine and a suicide attempt. He admits that he may have said that to his girlfriend, but he wanted to assure me that he has not had any suicidal thoughts in at least 1 to 2 weeks. He is denying any suicidal or homicidal thoughts today. In fact, he talks a lot about the future today connected to what life will be like after the surgery. Procedures Performed Operation Date: 08/22/23 12:45 <No data on this case meets the specified criteria> Physical Exam Psychiatric Patient was alert and cooperative. Eye contact was better. He seemed a little saw cleaner and better groomed. Speech was normal. Mood was "somewhat better." Affect seemed less restricted and a little bit brighter. Thought process was logical and a bit more goal-directed. There was no evidence of any hallucina tions or delusions. He denied suicidal or homicidal thoughts. Memory and concentration seemed good. No abnormal movements were seen. Gait was not evaluated. Insight and judgment are impaired. Vital Signs (Past 24 Hours) Last Vital Signs Temp 36.8 C 08/21/23 07:49 Pulse 97 H 08/21/23 07:49 Resp 18 08/21/23 07:49 BP 107/63 08/21/23 07:49 Pulse Ox 91 08/21/23 07:49 O2 Del Method Room Air 08/21/23 07:58 O2 Flow Rate 0 08/16/23 11:10 Results & Data ([facility]) Laboratory Results Laboratory Results - last 24 hr 08/20/23 08/21/23 12:10 04:51 WBC 7.83 RBC 4.41 L Hgb 12.3 L Hct 39.4 L MCV 89.3 MCH 27.9 MCHC 31.2 L RDW Std Deviation 56.8 H RDW Coeff of Alex 17.4 H Plt Count 307 MPV 9.9 Sodium 137 Potassium 3.7 Chloride 105 Carbon Dioxide 25 Anion Gap 7 BUN 22 Creatinine 0.73 Est Cr Clr Drug Dosing 128.9 Est GFR ( Amer) 117.7 Est GFR (Non-Af Amer) 101.5 BUN/Creatinine Ratio 30.1 H Glucose 116 H Calcium 9.1 Random Vancomycin 16.9 Current Inpatient Medications Current Inpatient Medications: Current Inpatient Medications Acetaminophen (Acetaminophen 325 Mg Tab) 650 mg PO Q4H PRN PRN Reason: Pain or Fever Stop: 09/12/23 05:30 Last Admin: 08/20/23 06:13 Dose: 650 mg Alendronate Sodium (Alendronate Sodium 70 Mg Tab) 70 mg PO Fr@0630 [facility] Stop: 09/16/23 06:29 Last Admin: 08/17/23 05:53 Dose: 70 mg Apixaban (Apixaban 5 Mg Tablet) 5 mg PO BID [facility] Stop: 09/12/23 08:59 Last Admin: 08/21/23 08:19 Dose: 5 mg Aspirin (Aspirin 81 Mg Ectab) 81 mg PO [facility] Stop: 09/12/23 08:59 Last Admin: 08/21/23 08:20 Dose: 81 mg Digoxin (Digoxin 0.125 Mg Tab) 0.125 mg PO DAILY@1600 [facility] Stop: 09/12/23 15:59 Last Admin: 08/20/23 16:07 Dose: 0.125 mg Escitalopram Oxalate (Escitalopram Oxalate 10 Mg Tab) 10 mg PO [facility] Stop: 09/14/23 08:59 Last Admin: 08/21/23 08:20 Dose: 10 mg [facility]urosemide ([facility]semide 40 Mg Tab) [facility] Stop: 09/20/23 08:59 Last Admin: 08/21/23 08:20 Dose: 40 mg Vancomycin HCl 1,500 mg/ (Sodium Chloride) 530 mls @ 200 mls/hr IV Q12H [facility] Stop: 09/25/23 01:59 Last Infusion: 08/21/23 05:36 Dose: Infused Lactobacillus Acidophilus (Advanced Probiotic 625 Mg Capsule) 1,250 mg PO DAILY [facility] Stop: 09/14/23 11:14 Last Admin: 08/21/23 08:21 Dose: 1,250 mg Loperamide HCl (Loperamide Hcl 2 Mg Cap) 2 mg PO Q6H PRN PRN Reason: Diarrhea Stop: 09/17/23 16:16 Metoprolol Succinate (Metoprolol Succ 50mg Ext Rel Tab) 100 mg PO BID [facility] Stop: 09/12/23 08:59 Last Admin: 08/20/23 23:02 Dose: Not Given Metoprolol Succinate (Metoprolol Succ 25mg Ext Rel Tab) 25 mg PO BID [facility] Stop: 09/12/23 08:59 Last Admin: 08/21/23 08:22 Dose: 25 mg Miscellaneous Information (Vancomycin Consult Active) 1 each N/A UD PRN PRN Reason: Consult Stop: 09/12/23 16:09 Oxycodone/Acetaminophen (Oxycodone/Acetaminophen 10-325 Tab) 1 tab PO Q6H PRN PRN Reason: Pain, Severe Stop: 08/27/23 05:30 Last Admin: 08/21/23 03:00 Dose: 1 tab Pantoprazole Sodium (Pantoprazole 40 Mg Tab) 40 mg PO DAILYBB [facility] Stop: 09/12/23 06:29 Last Admin: 08/21/23 05:38 Dose: 40 mg Polyethylene Glycol (Polyethylene (Miralax) 17 Gm Pack) 17 gm PO DAILY PRN PRN Reason: Constipation Stop: 09/12/23 05:30 Prednisone (Prednisone 5 Mg Tab) 5 mg PO DAILY [facility] Stop: 09/17/23 08:59 Last Admin: 08/21/23 08:20 Dose: 5 mg Rosuvastatin Calcium (Rosuvastatin Calcium 5 Mg Tab) 5 mg PO QAM [facility] Stop: 09/12/23 08:59 Last Admin: 08/21/23 08:18 Dose: 5 mg Sacubitril/Valsartan (Valsartan/Sacubitril 26/24mg Tab) 1 tab PO BID [facility] Stop: 09/12/23 08:59 Last Admin: 08/21/23 08:22 Dose: 1 tab Sildenafil Citrate (Sildenafil Citrate 20 Mg Tablet) 40 mg PO HS [facility] Stop: 09/12/23 20:59 Last Admin: 08/20/23 21:10 Dose: 40 mg Sildenafil Citrate (Sildenafil Citrate 20 Mg Tablet) 20 mg PO BID@0730,1200 [facility] Stop: 09/13/23 07:29 Last Admin: 08/21/23 08:19 Dose: 20 mg Spironolactone (Spironolactone 12.5 Mg Tab) 12.5 mg PO QAM [facility] Stop: 09/12/23 08:59 Last Admin: 08/21/23 08:21 Dose: 12.5 mg Sulfasalazine (Sulfasalazine 500 Mg Tablet) 500 mg PO QAM [facility] Stop: 09/12/23 08:59 Last Admin: 08/21/23 08:21 Dose: 500 mg Umeclidinium Francitas (Umeclidinium Francitas 62.5mcg/Blister 7 Puffs/Inhaler) 1 puffs INH QAM [facility] Stop: 09/12/23 08:59 Last Admin: 08/21/23 08:18 Dose: 1 puffs Vitamin D (Cholecalciferol 10 Mcg (400 Units) Tab) 10 mcg PO DAILY [facility] Stop: 09/12/23 08:59 Last Admin: 08/21/23 08:19 Dose: 10 mcg
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
--- NOTE | 2023-08-21 17:00 | Communication Note ---
Date of Service: August 21, 2023 Patient significant other is concerned about patient having memory issues which have been lately getting worse since at least 4 months. will obtain MRI brain today.
[2023-08-21] MEDS: HEPARIN SOD 5,000 UNIT/0.5 ML VIAL SQ SCH (21:14)
[2023-08-22] MEDS: LORazepam 0.5 MG in SYRINGE 0.25 ML IV SCH (00:57)
[2023-08-22] MEDS: GADOBUTROL 65ML VIAL IV ONE (01:59)
--- NOTE | 2023-08-22 02:58 | Magnetic Resonance Report ---
Exam(s): MRI HEAD W/WO Contrast IV Amt: 10cc gadavist EXAM: MR Head Without and With Intravenous Contrast CLINICAL HISTORY: Reason for exam: Intermitent confusion H/O TIA. TECHNIQUE: Magnetic resonance images of the head/brain without and with intravenous contrast in multiple planes. CONTRAST: Patient received 10cc gadavist of IV contrast COMPARISON: Comparison made to prior brain MRI from April 03, 2019. FINDINGS: Brain: There is mild nonspecific white matter changes. The flow voids at the base of the brain are intact. No mass. No hemorrhage. No acute infarct. Normal enhancement of the brain parenchyma. The dural venous sinuses are patent. Ventricles: Mild ventriculomegaly. Bones/joints: Unremarkable. No acute fracture. Sinuses: Chronic ethmoid sinusitis. There is a large retention cyst in the left maxillary sinus. No acute sinusitis. Mastoid air cells: Unremarkable as visualized. No mastoid effusion. Orbits: Unremarkable as visualized. IMPRESSION: No evidence of acute intracranial pathology. Mild nonspecific white matter changes. Electronically signed by: Brianda Lizarraga MD 08/22/23 02:57 AM
[2023-08-22 03:42] LABS: Base Excess ABG 2.4 mEq/L (-9-1.8); HCO3 ABG 26 mmol/L (19-24); Oxygen Saturation ABG 96.6 % (90-95); PCO2 ABG 38 mmHg (35-46); PO2 ABG 76 mmHg (80-95); pH ABG 7.45 (7.35-7.45)
[2023-08-22 03:51] LABS: Basophils # (auto) 0.07 K/uL (0.00-0.20); Basophils % (auto) 0.8 %; Eosinophils # (auto) 0.37 K/uL (0.00-0.50); Hematocrit (blood only) 38.4 % (42.0-52.0); Hemoglobin 12.4 g/dl (14.0-18.0); Immature Granulocytes % (auto) 1.1 %; Lymphocytes # (auto) 1.34 K/uL (1.20-3.40); Lymphocytes % (auto) 14.5 %; Mean Corpuscular Hemoglobin 28.5 pg (25.0-34.0); Mean Corpuscular Hgb Conc 32.3 g/dL (32.0-36.0); Mean Corpuscular Volume 88.3 fL (80.0-100.0); Mean Platelet Volume 9.3 fL (9.4-12.4); Monocytes # (auto) 0.64 K/uL (0.11-0.59); Monocytes % (auto) 6.9 %; Neutrophils # (auto) 6.71 K/uL (1.40-6.50); Neutrophils % (auto) 72.7 %; Platelet Count 324 K/uL (130-400); RDW Coefficient of Variation 17.3 % (11.5-14.5); RDW Standard Deviation 56.1 fL (36.4-46.3); Red Blood Count 4.35 M/uL (4.70-6.10); White Blood Count 9.23 K/ul (4.8-10.8)
[2023-08-22] MEDS: SODIUM CHLORIDE 0.9% 500 ML IV SCH (04:03)
[2023-08-22 04:07] LABS: BUN Creatinine Ratio 24.7 (10-20); Calcium 9.3 mg/dl (8.6-10.3); Creatinine Clr Calc Pharmacy 122.2 ml/min; Est GFR (African American) 115.1 ml/min; Est GFR (Non-African American) 99.3 ml/min; Magnesium 1.7 mg/dl (1.7-2.4); Potassium 3.8 mmol/L (3.5-5.1)
[2023-08-22 04:07] LABS: Adenovirus PCR Not Detected (NotDetected); Bordetella parapertussis PCR Not Detected (NotDetected); Bordetella pertussis PCR Not Detected (NotDetected); Chlamydia pneumoniae PCR Not Detected (NotDetected); Coronavirus 229E PCR Not Detected (NotDetected); Coronavirus CoV-2 (COVID19)PCR Not Detected (NotDetected); Coronavirus HKU1 PCR Not Detected (NotDetected); Coronavirus NL63 PCR Not Detected (NotDetected); Coronavirus OC43PCR Not Detected (NotDetected); Human Metapneumovirus PCR Not Detected (NotDetected); Influenza A PCR Not Detected (NotDetected); Influenza B PCR Not Detected (NotDetected); Mycoplasma pneumoniae PCR Not Detected (NotDetected); Parainfluenza Virus 1 PCR Not Detected (NotDetected); Parainfluenza Virus 2 PCR Not Detected (NotDetected); Parainfluenza Virus 3 PCR Not Detected (NotDetected); Parainfluenza Virus 4 PCR Not Detected (NotDetected); Respiratory Syncytial VirusPCR Not Detected (NotDetected); Rhinovirus/Enterovirus PCR Not Detected (NotDetected)
[2023-08-22 04:53] LABS: Allen Test Pos (Pos)
[2023-08-22] MEDS ORDERED: METOPROLOL TARTRATE 50 MG TAB PO ONE (10:25)
[2023-08-22] MEDS: POTASSIUM CHLORIDE CRTAB 20 MEQ TABCR PO ONE (10:36)
[2023-08-22] MEDS: MAGNESIUM SULFATE / D5W 1 GM/100 ML BAG IV ONE (10:36)
[2023-08-22] MEDS: METOPROLOL TARTRATE 1 MG/ML VIAL IV PRN (10:36)
--- NOTE | 2023-08-22 10:59 | Anesthesiology Consultation ---
Date of Service August 22, 2023 Assessment & Plan (1) Encounter for pre-operative examination: (2) Atrial fibrillation with rapid ventricular response: Chart Review Chart Review: Acceptable Risk for Surgery History Surgery Operation Date: 08/16/23 07:00 Proposed Procedures p Right Hallux Ulcer Debridement - Nilesh Somers DPM Operation Date: 08/22/23 12:15 Proposed Procedures p Right Hallux Partial Amputation - Nilesh Somers DPM Height/Weight Height: 5 ft 9 in Weight: 103 kg Allergies Allergy/AdvReac Type Severity Reaction Status Date / Time No Known Allergies Allergy Verified 08/13/23 02:24 Medications Home Medications Medication Instructions Recorded Confirmed Last Taken aspirin 81 mg tablet,delayed 81 mg PO QAM 04/04/21 08/13/23 08/11/23 release (Bob Low Dose Aspirin) omeprazole 40 mg capsule,delayed 40 mg PO DAILYBB 04/04/21 08/13/23 08/11/23 release nitroglycerin 0.4 mg sublingual 0.4 mg sublingual .PRN/UD PRN 08/27/21 08/13/23 Unknown tablet Chest Pain rosuvastatin 5 mg tablet 5 mg PO QAM 08/27/21 08/13/23 08/11/23 sildenafil (pulm.hypertension) 20 20 mg PO BID 08/27/21 08/13/23 08/11/23 mg tablet sildenafil (pulm.hypertension) 20 40 mg PO HS 04/06/22 08/13/23 08/11/23 mg tablet tiotropium bromide 2.5 2 inh inhalation QAM 04/06/22 08/13/23 08/11/23 mcg/actuation mist for inhalation (Spiriva Respimat) alendronate 70 mg tablet 70 mg PO WK 07/05/22 08/13/23 08/10/23 furosemide 20 mg tablet 40 mg PO QAM 07/05/22 08/13/23 08/11/23 apixaban 5 mg tablet (Eliquis) 5 mg PO BID #60 tabs 07/10/22 08/13/23 08/11/23 cholecalciferol (vitamin D3) 10 10 mcg PO DAILY 08/13/23 08/13/23 08/11/23 mcg (400 unit) capsule (Vitamin D3) digoxin 125 mcg (0.125 mg) tablet 0.125 mcg PO DAILY 08/13/23 08/13/23 08/11/23 empagliflozin 10 mg tablet 10 mg PO QAM 08/13/23 08/13/23 08/11/23 (Jardiance) escitalopram oxalate 10 mg tablet 10 mg PO QAM 08/13/23 08/13/23 08/11/23 metoprolol succinate 100 mg 100 mg PO BID 08/13/23 08/13/23 08/11/23 tablet,extended release 24 hr metoprolol succinate 25 mg 25 mg PO BID 08/13/23 08/13/23 08/11/23 tablet,extended release 24 hr ondansetron HCl 4 mg tablet 4 mg PO Q8H PRN NAUSEA/VOMITING 08/13/23 08/13/23 Unknown oxycodone-acetaminophen 10 mg-325 1 tab PO Q6H PRN Pain, Severe 08/13/23 08/13/23 08/11/23 mg tablet prednisone 5 mg tablet 5 - 10 mg PO DAILY RHEUMATOID 08/13/23 08/13/23 08/11/23 ARTHRITIS sacubitril 24 mg-valsartan 26 mg 1 tab PO BID 08/13/23 08/13/23 08/11/23 tablet (Entresto) sarilumab 200 mg/1.14 mL 200 mg subcut .[id number] 08/13/23 08/13/23 Unknown subcutaneous pen injector (Juliana) spironolactone 25 mg tablet 12.5 mg PO QAM 08/13/23 08/13/23 08/11/23 sulfasalazine 500 mg tablet 500 mg PO QA 08/13/23 08/13/23 08/11/23 Active Medications Generic Name Dose Route Start Last Admin Trade Name Freq PRN Reason Stop Dose Admin Acetaminophen 650 mg 08/13/23 05:31 08/20/23 06:13 Acetaminophen 325 Mg Tab PO 09/12/23 05:30 650 mg Q4H PRN Administration Pain or Fever Alendronate Sodium 70 mg 08/17/23 06:30 08/17/23 05:53 Alendronate Sodium 70 Mg Tab PO 09/16/23 06:29 70 mg Fr@0630 MAIRA Administration Apixaban 5 mg 08/13/23 09:00 08/21/23 08:19 Apixaban 5 Mg Tablet PO 09/12/23 08:59 5 mg BID MAIRA Administration Aspirin 81 mg 08/13/23 09:00 08/22/23 08:56 Aspirin 81 Mg Ectab PO 09/12/23 08:59 81 mg QAM MAIRA Administration Digoxin 0.125 mg 08/13/23 16:00 08/21/23 16:09 Digoxin 0.125 Mg Tab PO 09/12/23 15:59 0.125 mg DAILY@1600 MAIRA Administration Escitalopram Oxalate 10 mg 08/15/23 09:00 08/22/23 08:57 Escitalopram Oxalate 10 Mg Tab PO 09/14/23 08:59 10 mg QAM MAIRA Administration Furosemide 40 mg 08/21/23 09:00 08/22/23 08:56 Furosemide 40 Mg Tab PO 09/20/23 08:59 40 mg QAM MAIRA Administration Heparin Sodium (Porcine) 5,000 units 08/21/23 21:00 08/22/23 08:57 Heparin Sod 5,000 Unit/0.5 Ml Vial SQ 09/20/23 20:59 Not Given Q12 MAIRA Vancomycin HCl 1,500 mg/ 530 mls @ 200 mls/hr 08/14/23 02:00 08/22/23 05:03 Sodium Chloride IV 09/25/23 01:59 Infused Q12H [facility] Infusion Lorazepam 0.5 mg/ Syringe 0.5 mls @ 2 mls/min 08/21/23 20:00 08/22/23 00:57 IV 08/22/23 12:00 2 mls/min TODAY@2000 MAIRA Administration Magnesium Sulfate/Dextrose 1 gm in 100 mls @ 50 mls/hr 08/22/23 10:28 08/22/23 10:36 Magnesium Sulfate / D5w IV 08/22/23 12:27 50 mls/hr ONE ONE Administration Lactobacillus Acidophilus 1,250 mg 08/15/23 11:15 08/22/23 08:56 Advanced Probiotic 625 Mg Capsule PO 09/14/23 11:14 1,250 mg DAILY MAIRA Administration Metoprolol Tartrate 5 mg 08/22/23 10:24 08/22/23 10:36 Metoprolol Tartrate 1 Mg/Ml Vial IV 09/21/23 11:59 5 mg Q6 PRN Administration Tachycardia HR>110 Oxycodone/Acetaminophen 1 tab 08/13/23 05:31 08/21/23 21:20 Oxycodone/Acetaminophen 10-325 Tab PO 08/27/23 05:30 1 tab Q6H PRN Administration Pain, Severe Pantoprazole Sodium 40 mg 08/13/23 06:30 08/22/23 05:59 Pantoprazole 40 Mg Tab PO 09/12/23 06:29 40 mg DAILYBB MAIRA Administration Prednisone 5 mg 08/18/23 09:00 08/22/23 08:55 Prednisone 5 Mg Tab PO 09/17/23 08:59 5 mg DAILY MAIRA Administration Rosuvastatin Calcium 5 mg 08/13/23 09:00 08/22/23 08:56 Rosuvastatin Calcium 5 Mg Tab PO 09/12/23 08:59 5 mg QAM MAIRA Administration Sacubitril/Valsartan 1 tab 08/13/23 09:00 08/22/23 08:55 Valsartan/Sacubitril /24mg Tab PO 09/12/23 08:59 1 tab BID MAIRA Administration Sildenafil Citrate 40 mg 08/13/23 21:00 08/21/23 21:13 Sildenafil Citrate 20 Mg Tablet PO 09/12/23 20:59 40 mg HS MAIRA Administration Sildenafil Citrate 20 mg 08/14/23 07:30 08/22/23 08:56 Sildenafil Citrate 20 Mg Tablet PO 09/13/23 07:29 20 mg BID@0730,1200 MAIRA Administration Spironolactone 12.5 mg 08/13/23 09:00 08/22/23 08:56 Spironolactone 12.5 Mg Tab PO 09/12/23 08:59 12.5 mg QAM MAIRA Administration Sulfasalazine 500 mg 08/13/23 09:00 08/22/23 08:55 Sulfasalazine 500 Mg Tablet PO 09/12/23 08:59 500 mg QAM MAIRA Administration Umeclidinium [place] 1 puffs 08/13/23 09:00 08/22/23 08:55 Umeclidinium [place] 62.5mcg/Blister 7 Puffs/Inhaler INH 09/12/23 08:59 1 puffs QAM MAIRA Administration Vitamin D 10 mcg 08/13/23 09:00 08/22/23 08:55 Cholecalciferol 10 Mcg (400 Units) Tab PO 09/12/23 08:59 10 mcg DAILY MAIRA Administration NPO Date Last Intake of Fluids: 08/15/23 Time Last Intake of Fluids: 18:00 Date Last Intake of Solids: 08/15/23 Time Last Intake of Solids: 18:00 Past Medical History Medical History (Updated 08/22/23 @ 10:59 by Casey Encarnacion MD) Drug use Syncope and collapse Raynauds disease PAD (peripheral artery disease) HTN (hypertension) Hepatitis C Anemia Lung nodules HFrEF (heart failure with reduced ejection fraction) Chronic steroid use Long-term use of high-risk medication Rheumatoid arthritis GERD (gastroesophageal reflux disease) Pre-diabetes Erectile dysfunction Tobacco use disorder Past Family History Family History Other Heart disease Hypertension Past Surgical History Surgical History History of cardiac cath History of colonoscopy Hx of tonsillectomy Social History Smoking Status: Current some day smoker tobacco type: cigarettes Smoking cigarettes per day: 8-10 Do You Dip or Chew Tobacco: No Hx Alcohol Use: No Hx Substance Use: No substance use type: former substance user Last Used Substance: Hours (ago) Last Used Substance Other:: 14 hrs ago Physical Exam Vital Signs Last Vital Signs Temp 36.8 C 08/22/23 10:15 Pulse 128 H 08/22/23 10:36 Resp 16 08/22/23 08:22 BP 119/82 08/22/23 10:36 Pulse Ox 95 08/22/23 10:15 O2 Del Method Room Air 08/22/23 10:15 O2 Flow Rate 0 08/16/23 11:10 Testing Laboratory Results 08/22/23 03:20 08/22/23 03:20 Hemoglobin A1c 6.0 % (4.5-5.6) H 08/13/23 07:38 Urine Color Dark Yellow 08/13/23 03:10 Urine Appearance Clear (Clear) 08/13/23 03:10 Urine pH 6.0 (4.5-7.5) 08/13/23 03:10 Ur Specific [place] 1.027 (1.000-1.030) 08/13/23 03:10 Urine Protein Trace (Negative) H 08/13/23 03:10 Urine Glucose (UA) 3+ (Negative) H 08/13/23 03:10 Urine Ketones Negative (Negative) 08/13/23 03:10 Urine Nitrite Negative (Negative) 08/13/23 03:10 Ur Leukocyte Esterase Negative (Negative) 08/13/23 03:10 Urine WBC (Auto) 0 /hpf (0-5) 08/13/23 03:10 Urine RBC (Auto) 0-4 /hpf (0-4) 08/13/23 03:10 U Hyaline Cast (Auto) 0 /lpf (0-5) 08/13/23 03:10 U Epithel Cells (Auto) 0-5 /lpf (0-5) 08/13/23 03:10 Urine Bacteria (Auto) Negative (Negative) 08/13/23 03:10 08/16/23 Unknown Gram Stain - Final Foot Aerobic and Anaerobic Culture - Final Low counts mixed probable skin microbiota. No further identifications or sensitivities to follow.
[2023-08-22] MEDS: METOPROLOL SUCC 50MG EXT REL TAB PO ONE (11:26)
[2023-08-22] MEDS ORDERED: MIDAZOLAM HCL 1 MG/ML 2ML VIAL ONE (11:37)
[2023-08-22] MEDS ORDERED: fentaNYL citrate PF 100 MCG/2 ML VIAL ONE (11:37)
[2023-08-22] MEDS ORDERED: LABETALOL HCL IV 5 MG/ML 20ML IV PRN (12:06)
[2023-08-22] MEDS ORDERED: ATROPINE SULFATE 0.1 MG/ML 10ML SYR IV PRN (12:06)
[2023-08-22] MEDS ORDERED: fentaNYL citrate PF 100 MCG/2 ML VIAL IV PRN (12:06)
[2023-08-22] MEDS ORDERED: ONDANSETRON INJ 2 MG/ML 2 ML VIAL ONE (12:17)
[2023-08-22] MEDS ORDERED: PROPOFOL IV EMULSION 10 MG/ML 20 ML VIAL IV ONE (12:17)
--- NOTE | 2023-08-22 12:34 | History & Physical Bridge Note ---
Date of Service August 22, 2023 History & Physical Bridge Note I have examined the patient, reviewed the History & Physical and in the interval since the performance of the History & Physical I have noted the following changes of clinical significance: no changes noted. Plan fopr partial right hallux amputation. All questions answered. Consent obtained.
[2023-08-22] MEDS ORDERED: PHENYLEPHRINE HCL 10 MG/ML VIAL ONE (13:06)
--- NOTE | 2023-08-22 13:21 | Post Operative Brief Note ---
Immediate Post Op Note v1 Date of Surgery August 22, 2023 Pre & Post Diagnosis Preop Diagnosis: Right hallux osteomyelitis Postop Diagnosis: Same I identified the patient and participated in the time-out.: Yes Procedure Right hallux partial amputation Surgeon Nilesh Somers, DPM [employer] None Estimated Blood Loss 5 Findings Consistent with Post-Op Diagnosis Specimens Toe for permanent specimen Anesthesia Type MAC Complications none Disposition Accompanied Patient To Recovery: Yes Disposition: Recovery Room
[2023-08-22] MEDS: BUPIVACAINE 0.5 % 5 MG/1 ML MPF 30ML VIAL ONE (13:23)
[2023-08-22] MEDS: PHENYLEPHRINE 100MCG/ML 5ML SYR ONE (13:43)
[2023-08-22] MEDS: PHENYLEPHRINE 100MCG/ML 5ML SYR IV PRN (13:50)
--- NOTE | 2023-08-22 14:17 | Anesthesiology Progress Note ---
Date of Service August 22, 2023 Anesthesia Post Procedure Vital Signs Vital Signs: Temp Pulse Pulse Pulse Resp BP BP 08/22/23 14:10 36.4 C L 94 H 19 08/22/23 14:00 107 H 16 08/22/23 13:50 94 H 20 08/22/23 13:40 89 19 08/22/23 13:30 36.4 C L 97 H 28 H 08/22/23 11:38 37.6 C H 104 H 20 08/22/23 11:18 37 C 104 H 20 104/70 08/22/23 11:14 106 H 104/70 08/22/23 10:36 128 H 119/82 08/22/23 10:15 36.8 C 126 H 119/82 08/22/23 08:55 08/22/23 08:22 36.8 C 106 H 16 112/72 08/22/23 07:00 117 H 08/22/23 03:34 36.7 C 95 H 18 08/22/23 00:43 08/22/23 00:21 127 H 08/21/23 23:54 36.7 C 127 H 18 08/21/23 19:18 36.7 C 117 H 18 08/21/23 16:09 108 H 08/21/23 15:15 36.9 C 108 H 20 104/70 BP Pulse Ox O2 Del Method O2 Flow Rate 08/22/23 14:10 108/67 96 Nasal Cannula 2 08/22/23 14:00 96/71 L 97 Nasal Cannula 2 08/22/23 13:50 91/69 L 89 L Room Air 08/22/23 13:40 82/54 L 96 Oxymask 6 08/22/23 13:30 81/53 L 95 Oxymask 10 08/22/23 11:38 110/71 94 Room Air 08/22/23 11:18 95 Room Air 08/22/23 11:14 08/22/23 10:36 08/22/23 10:15 95 Room Air 08/22/23 08:55 Room Air 08/22/23 08:22 97 Room Air 08/22/23 07:00 08/22/23 03:34 111/77 99 Room Air 08/22/23 00:43 Room Air 08/22/23 00:21 08/21/23 23:54 117/68 96 Room Air 08/21/23 19:18 124/78 96 Room Air 08/21/23 16:09 08/21/23 15:15 94 Room Air Pain Intensity Right Great Toe: Pain Intensity: 8 Bilateral Generalized: Pain Intensity: 0 Transfer of Care Handoff Completed per policy Notes Mental Status: alert / awake / arousable Patient Amnestic to Procedure: Yes Nausea / Vomiting: adequately controlled Pain: adequately controlled Airway Patency, RR, SpO2: stable & adequate BP & HR: stable & adequate Hydration State: stable & adequate Anesthetic Complications: no major complications apparent
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
--- NOTE | 2023-08-22 16:58 | Psychiatric Progress Note ---
Date of Service August 22, 2023 Impression / Recommendations Impression 58 yo male with steroid dependent RA and a variety of other medical conditions dealing with chronic pain, both of which can contribute to irritability which is then amplified with martial discord. He does not feel unsafe at home and would prefer to stay with mother for a few days until things "calm down." Currently cooperative with medical care. 07/24/2023: Patient seems to be stable and is looking forward to his procedure and being able to go home soon. After meeting him for the last few days, I feel that he is pretty stable and not an acute danger to himself and not requiring inpatient psychiatric hospitalization. However, I will continue to follow while he is in the hospital. He still seems somewhat goal-directed. However, his girlfriend has expressed concerns that he may be suicidal. He has risk factors for suicide including multiple medical issues, pain, history of substance use, and being a white male. He has been on Lexapro for approximately 3 weeks which should be on the verge of helping. (1) Depressive disorder: Plan I agree with the ED assessment that there is no evidence of active psychosis, ron, or delirium currently interfering with his medical decision making (302 already declined by ED physician). continue Lexapro and outpatient therapy minimize steroid, ?TSH trending up--defer to hospitalist/PCP there is no indication for inpatient psychiatric hospitalization at this time. await confirmatory test on urine tox 08/20/2023: I do not think the patient is in acute danger in the hospital. He is looking forward to the surgery and thinks that will help him overall. We will continue with the Lexapro 10 mg daily. I will continue to follow with him over the next couple of days. On , we will need to decide if he is ready to go home or if he will need further hospitalization on the psychiatric unit for safety. At the moment, he seems amenable to treatment and getting help. We will also want to make sure we set him up with some outpatient individual therapy if possible. 08/21/2023: I will continue to monitor the situation and check in with the patient daily. According to Dr. Somers, it looks like the patient may be ready for discharge on morning, August 22. We will continue with the Lexapro. At the moment, I suspect we will not have to admit him to the psychiatric unit and just set him up with outpatient individual therapy and medication management. However, we will take it a day at a time. 08/22/2023: I will continue to monitor the situation and check in with the patient 1 more time tomorrow. Now that his surgical procedures done, he will likely be discharging tomorrow. We will try to decide if he still will need a psychiatric hospitalization. We will continue with the Lexapro. If we decide to send him home, he will need outpatient medication management and individual therapy. Today I spent 25 minutes on the case. This included meeting with the patient, reviewing the chart, discussing the case with the psychiatric nurse liaison, receiving a nursing report, discussing the case with the attending physician and orthopedic surgeon, and documentation. Suicide Risk Level Suicide Risk Level: Low (q15 min observation checks) Interval History Identifying Information 58 yo male with from [place], brought to ED on 08/12 on a 302 warrant for alleged inability to care for self. The warrant was declined in ED but he was admitted medically for further assessment/evaluation. Chief Complaint "Because of an infected toe." Subjective Subjective Today I met with the patient, reviewed his chart, and discussed the case with the nurse and the attending physician. I also heard from the orthopedic surgeon. Patient is in our hospital due to multiple medical issues and today underwent a procedure to amputate part of right big toe. According to the orthopedic surgeon, it sounds like the procedure went well. I met with the p atient this morning. The nurse reported that he is doing well. When I met with the patient, he was slightly nervous about the surgery. He was able to sleep and he was hungry but he was n.p.o. for the procedure. He denied any suicidal or homicidal thoughts. He told me that his plan is to discharge tomorrow and go stay with his mother for now. He is not thrilled about the situation and not being able to go home, but he understands that it might make things worse between him and his girlfriend if he were to go home right now. Child protection is also involved in might not be allowing him to do so. Nevertheless, he feels like he is doing fine and denies that he is in any type of danger. He feels like staying with his mother is a safe environment. Procedures Performed Operation Date: 08/22/23 12:15 Actual Procedures p Right Hallux Partial Amputation(Right) - Nilesh Somers DPM Physical Exam Psychiatric Patient was alert and cooperative. Eye contact was good. He was clean but in hospital attire. Speech was normal. Mood was "good." Affect looked a little bit anxious today. Thought process was logical and goal-directed. There was no evidence of any hallucinations or delusions. He denied suicidal or homicidal thoughts. Memory and concentration seemed good. No abnormal movements were seen. Gait was not evaluated. Insight and judgment are mildly impaired. Vital Signs (Past 24 Hours) Last Vital Signs Temp 37.1 C 08/22/23 16:44 Pulse 96 H 08/22/23 16:44 Resp 20 08/22/23 16:44 BP 108/68 08/22/23 16:44 Pulse Ox 91 08/22/23 16:44 O2 Del Method Room Air 08/22/23 16:44 O2 Flow Rate 2 08/22/23 14:10 Results & Data ([facility]) Laboratory Results Laboratory Results - last 24 hr 08/22/23 08/22/23 08/22/23 03:20 03:30 Unknown WBC 9.23 RBC 4.35 L Hgb 12.4 L Hct 38.4 L MCV 88.3 MCH 28.5 MCHC 32.3 RDW Std Deviation 56.1 H RDW Coeff of Alex 17.3 H Plt Count 324 MPV 9.3 L Immature Gran % (Auto) 1.1 Neut % (Auto) 72.7 Lymph % (Auto) 14.5 [place] % (Auto) 6.9 Eos % (Auto) 4.0 Baso % (Auto) 0.8 Neut # (Auto) 6.71 H Lymph # (Auto) 1.34 [place] # (Auto) 0.64 H Eos # (Auto) 0.37 Baso # (Auto) 0.07 Immature Gran # (Auto) 0.10 ABG pH 7.45 ABG pCO2 38 ABG pO2 76 L ABG HCO3 26 H ABG O2 Saturation 96.6 H ABG Base Excess 2.4 H Lan Test Pos Oxygen Given RA Sodium 136 Potassium 3.8 Chloride 104 Carbon Dioxide 26 Anion Gap 6 BUN 19 Creatinine 0.77 Est Cr Clr Drug Dosing 122.2 Est GFR ( Amer) 115.1 Est GFR (Non-Af Amer) 99.3 BUN/Creatinine Ratio 24.7 H Glucose 100 H Lactate 1.7 Calcium 9.3 Magnesium 1.7 Adenovirus (PCR) Not Detected B. pertussis DNA (PCR) Not Detected B.parapertussis DNA PCR Not Detected C. pneumoniae DNA (PCR) Not Detected Coronavirus OC43 (PCR) Not Detected Coronavirus HKU1 (PCR) Not Detected Coronavirus 229E (PCR) Not Detected SARS-CoV-2 (PCR) Not Detected Coronavirus NL63 (PCR) Not Detected Human Metapneumovir PCR Not Detected Influenza Type A (PCR) Not Detected Influenza Type B (PCR) Not Detected M. pneumoniae (PCR) Not Detected Parainfluenza 1 (PCR) Not Detected Parainfluenza 2 (PCR) Not Detected Parainfluenza 3 (PCR) Not Detected Parainfluenza 4 (PCR) Not Detected RSV (PCR) Not Detected Entero/Rhino (PCR) Not Detected Current Inpatient Medications Current Inpatient Medications: Current Inpatient Medications Acetaminophen (Acetaminophen 325 Mg Tab) 650 mg PO Q4H PRN PRN Reason: Pain or Fever Stop: 09/12/23 05:30 Last Admin: 08/20/23 06:13 Dose: 650 mg Alendronate Sodium (Alendronate Sodium 70 Mg Tab) 70 mg PO Fr@0630 [facility] Stop: 09/16/23 06:29 Last Admin: 08/17/23 05:53 Dose: 70 mg Apixaban (Apixaban 5 Mg Tablet) 5 mg PO BID [facility] Stop: 09/12/23 08:59 Last Admin: 08/21/23 08:19 Dose: 5 mg Aspirin (Aspirin 81 Mg Ectab) 81 mg PO QAM [facility] Stop: 09/12/23 08:59 Last Admin: 08/22/23 08:56 Dose: 81 mg Atropine Sulfate (Atropine Sulfate 0.1 Mg/Ml 10ml Syr) 0.5 mg IV Q1M PRN PRN Reason: PACU Use-HR<40 &/or Bradycardi Stop: 08/22/23 20:06 Digoxin (Digoxin 0.125 Mg Tab) 0.125 mg PO DAILY@1600 [facility] Stop: 09/12/23 15:59 Last Admin: 08/22/23 15:25 Dose: 0.125 mg Escitalopram Oxalate (Escitalopram Oxalate 10 Mg Tab) 10 mg PO QAM [facility] Stop: 09/14/23 08:59 Last Admin: 08/22/23 08:57 Dose: 10 mg Fentanyl Citrate (Fentanyl Citrate Pf 100 Mcg/2 Ml Vial) 25 mcg IV Q5M PRN PRN Reason: PACU Use Only-Pain Stop: 08/22/23 20:06 Furosemide (Furosemide 40 Mg Tab) 40 mg PO QAM [facility] Stop: 09/20/23 08:59 Last Admin: 08/22/23 08:56 Dose: 40 mg Heparin Sodium (Porcine) (Heparin Sod 5,000 Unit/0.5 Ml Vial) 5,000 units SQ Q12 [facility] Stop: 09/20/23 20:59 Last Admin: 08/22/23 08:57 Dose: Not Given Vancomycin HCl 1,500 mg/ (Sodium Chloride) 530 mls @ 200 mls/hr IV Q12H [facility] Stop: 09/25/23 01:59 Last Admin: 08/22/23 14:31 Dose: 200 mls/hr Labetalol HCl (Labetalol Hcl Iv 5 Mg/Ml 20ml) 5 mg IV Q5M PRN PRN Reason: PACU Use-SBP>160 or DBP>100 Stop: 08/22/23 20:07 Lactobacillus Acidophilus (Advanced Probiotic 625 Mg Capsule) 1,250 mg PO DAILY [facility] Stop: 09/14/23 11:14 Last Admin: 08/22/23 08:56 Dose: 1,250 mg Loperamide HCl (Loperamide Hcl 2 Mg Cap) 2 mg PO Q6H PRN PRN Reason: Diarrhea Stop: 09/17/23 16:16 Metoprolol Succinate (Metoprolol Succ 50mg Ext Rel Tab) 100 mg PO BID [facility] Stop: 09/21/23 20:59 Metoprolol Tartrate (Metoprolol Tartrate 1 Mg/Ml Vial) 5 mg IV Q6 PRN PRN Reason: Tachycardia HR>110 Stop: 09/21/23 11:59 Last Admin: 08/22/23 10:36 Dose: 5 mg Miscellaneous Information (Vancomycin Consult Active) 1 each N/A UD PRN PRN Reason: Consult Stop: 09/12/23 16:09 Oxycodone/Acetaminophen (Oxycodone/Acetaminophen 10-325 Tab) 1 tab PO Q6H PRN PRN Reason: Pain, Severe Stop: 08/27/23 05:30 Last Admin: 08/21/23 21:20 Dose: 1 tab Pantoprazole Sodium (Pantoprazole 40 Mg Tab) 40 mg PO DAILYBB [facility] Stop: 09/12/23 06:29 Last Admin: 08/22/23 05:59 Dose: 40 mg Phenylephrine HCl (Phenylephrine 100mcg/Ml 5ml Syr) 100 mcg IV Q5M PRN PRN Reason: PACU Use Only-SBP<90 or HR>70 Stop: 08/22/23 21:52 Last Admin: 08/22/23 13:50 Dose: 100 mcg Polyethylene Glycol (Polyethylene (Miralax) 17 Gm Pack) 17 gm PO DAILY PRN PRN Reason: Constipation Stop: 09/12/23 05:30 Prednisone (Prednisone 5 Mg Tab) 5 mg PO DAILY [facility] Stop: 09/17/23 08:59 Last Admin: 08/22/23 08:55 Dose: 5 mg Rosuvastatin Calcium (Rosuvastatin Calcium 5 Mg Tab) 5 mg PO QAM [facility] Stop: 09/12/23 08:59 Last Admin: 08/22/23 08:56 Dose: 5 mg Sacubitril/Valsartan (Valsartan/Sacubitril /24mg Tab) 1 tab PO BID [facility] Stop: 09/12/23 08:59 Last Admin: 08/22/23 08:55 Dose: 1 tab Sildenafil Citrate (Sildenafil Citrate 20 Mg Tablet) 40 mg PO HS [facility] Stop: 09/12/23 20:59 Last Admin: 08/21/23 21:13 Dose: 40 mg Sildenafil Citrate (Sildenafil Citrate 20 Mg Tablet) 20 mg PO BID@0730,1200 [facility] Stop: 09/13/23 07:29 Last Admin: 08/22/23 13:22 Dose: Not Given Spironolactone (Spironolactone 12.5 Mg Tab) 12.5 mg PO QAM [facility] Stop: 09/12/23 08:59 Last Admin: 08/22/23 08:56 Dose: 12.5 mg Sulfasalazine (Sulfasalazine 500 Mg Tablet) 500 mg PO QAM [facility] Stop: 09/12/23 08:59 Last Admin: 08/22/23 08:55 Dose: 500 mg Umeclidinium [place] (Umeclidinium [place] 62.5mcg/Blister 7 Puffs/Inhaler) 1 puffs [facility] Stop: 09/12/23 08:59 Last Admin: 08/22/23 08:55 Dose: 1 puffs Vitamin D (Cholecalciferol 10 Mcg (400 Units) Tab) 10 mcg PO DAILY [facility] Stop: 09/12/23 08:59 Last Admin: 08/22/23 08:55 Dose: 10 mcg
[2023-08-22] MEDS: METOPROLOL SUCC 50MG EXT REL TAB PO SCH (20:13)
[2023-08-23 06:35] LABS: Hematocrit (blood only) 38.4 % (42.0-52.0); Hemoglobin 11.9 g/dl (14.0-18.0); Mean Corpuscular Hemoglobin 27.9 pg (25.0-34.0); Mean Corpuscular Volume 89.9 fL (80.0-100.0); Mean Platelet Volume 9.5 fL (9.4-12.4); Platelet Count 326 K/uL (130-400); RDW Coefficient of Variation 17.5 % (11.5-14.5); RDW Standard Deviation 58.3 fL (36.4-46.3); Red Blood Count 4.27 M/uL (4.70-6.10); White Blood Count 8.35 K/ul (4.8-10.8)
[2023-08-23 06:43] LABS: BUN Creatinine Ratio 23.9 (10-20); Calcium 9.1 mg/dl (8.6-10.3); Creatinine Clr Calc Pharmacy 106.9 ml/min; Potassium 4.3 mmol/L (3.5-5.1)
--- NOTE | 2023-08-23 09:38 | Pharmacy Report ---
Pharmacy PK ABX Note - Date of Service August 23, 2023 - Assessment and Plan Assessment 08/22: Patient is s/p right hallux amputation on 08/21. Per provider notes, patient will likely be discharged today on PO antibiotics. 08/19: Today is day #8 of vancomycin for right great toe osteomyelitis. Plan is likely for 6 weeks of antibiotic therapy. Foot culture showing skin john. Renal function remains stable. Afebrile w/ no overt leukocytosis. 08/16: Reviewed vancomycin level, predicting a therapeutic AUC/KENAN. Continue current regimen 08/14: 58 year old M receiving empiric vancomycin and Zosyn for treatment of right great toe necrosis w/ concern for possible osteomyelitis. No cultures obtained. Renal function appears to be at/near baseline. Podiatry and orthopedic surgery consulted. Possible debridement. Pertinent PMH includes PAD and Raynaud's dx. Renal function stable. Afebrile, no leukocytosis. Day #3 of antimicrobial therapy. Plan Vancomycin * Current regimen: 1500 mg IV every 12 hours * Random level obtained 08/23/23 resulted as 18.1 mcg/mL. This is predicted to achieve target AUC/KENAN of 400-600 mg/L.hr * Predicted AUC at steady state: 567 mg/L.hr * Continue 1500 mg IV every 12 hours Pharmacy will continue to follow and will adjust dose/frequency as necessary. Thank you. Pharmacy has transitioned to AUC monitoring for vancomycin. AUC/KENAN is the preferred PK/PD target and is associated with decreased risk of nephrotoxicity compared to traditional trough targets.
[2023-08-23] MEDS: FUROSEMIDE 40 MG/4 ML VIAL IV ONE (10:40)
[2023-08-23] MEDS: HYDROmorphone INJ 0.5 MG/0.5 ML SYR IV PRN (10:40)
--- NOTE | 2023-08-23 12:53 | Psychiatric Progress Note ---
Date of Service August 23, 2023 Impression / Recommendations Impression 58 yo male with steroid dependent RA and a variety of other medical conditions dealing with chronic pain, both of which can contribute to irritability which is then amplified with martial discord. He does not feel unsafe at home and would prefer to stay with mother for a few days until things "calm down." Currently cooperative with medical care. 07/25/2023: I am very reassured by the goal-directed behavior and planning that I see. His eye contact and affect also reassure me that he is doing well and I feel he is safe to go home at this time. I discussed the case with Dr. Hernandez. Patient is not requiring inpatient psychiatric hospitalization at this time. (1) Depressive disorder: Plan I agree with the ED assessment that there is no evidence of active psychosis, ron, or delirium currently interfering with his medical decision making (302 already declined by ED physician). continue Lexapro and outpatient therapy minimize steroid, ?TSH trending up--defer to hospitalist/PCP there is no indication for inpatient psychiatric hospitalization at this time. await confirmatory test on urine tox 08/20/2023: I do not think the patient is in acute danger in the hospital. He is looking forward to the surgery and thinks that will help him overall. We will continue with the Lexapro 10 mg daily. I will continue to follow with him over the next couple of days. On , we will need to decide if he is ready to go home or if he will need further hospitalization on the psychiatric unit for safety. At the moment, he seems amenable to treatment and getting help. We will also want to make sure we set him up with some outpatient individual therapy if possible. 08/21/2023: I will continue to monitor the situation and check in with the patient daily. According to Dr. Somers, it looks like the patient may be ready for discharge on morning, August 22. We will continue with the Lexapro. At the moment, I suspect we will not have to admit him to the psychiatric unit and just set him up with outpatient individual therapy and medication management. However, we will take it a day at a time. 08/22/2023: I will continue to monitor the situation and check in with the patient 1 more time tomorrow. Now that his surgical procedures done, he will likely be discharging tomorrow. We will try to decide if he still will need a psychiatric hospitalization. We will continue with the Lexapro. If we decide to send him home, he will need outpatient medication management and individual therapy. 08/23/2023: I am not going to make any changes. I discussed with the psychiatric nurse liaison that we need to get him set up with outpatient medication management and individual therapy. We will continue with Lexapro 10 mg daily. He may be discharging today. If he is here tomorrow, I will see him 1 more time. Today I spent 37 minutes on the case. This included meeting with the patient, reviewing the chart, discussing the case with the psychiatric nurse liaison, receiving a nursing report, discussing the case with the attending physician, and documentation. Suicide Risk Level Suicide Risk Level: Low (q15 min observation checks) Interval History Identifying Information 58 yo male with from [place], brought to ED on 08/12 on a 302 warrant for alleged inability to care for self. The warrant was declined in ED but he was admitted medically for further assessment/evaluation. Chief Complaint "Because of an infected toe." Subjective Subjective Today I met with the patient, reviewed the chart, and received nursing report. I also discussed the case with Dr. Hernandez via text. Harrison is in our hospital because of multiple medical issues but I had been following him because of concerns of depression and possible suicidal ideation he had made some statements to his girlfriend along those lines it made her very concerned. Yesterday, he had his amputation procedure and tolerated it well. However, during the night he was having difficulties with pain which caused problems with his sleep. When I met with him this morning, he was very positive and interactive. He made good eye contact with me. I felt very reassured by his goal-directed behavior because of some of the things he was bringing up. For example he had concerns about going home because he is going to be staying with his elderly mother and he is having trouble walking. He is not sure if he will be able to get around because she will be able to help him. He also has a no contact order with his girlfriend right now because of his substance use and knows that he has to deal with that and, by his planning for how things will work, is obviously not thinking about ending his life right now. Procedures Performed Operation Date: 08/22/23 12:15 Actual Procedures p Right Hallux Partial Amputation(Right) - Nilesh Somers DPM Physical Exam Psychiatric Patient was alert and cooperative. Eye contact was good. He was clean but in hospital attire. Speech was normal. Mood was "good." Affect looked less anxious and brighter. Thought process was logical and goal-directed. There was no evidence of any hallucinations or delusions. He denied suicidal or homicidal thoughts. Memory and concentration seemed good. No abnormal movements were seen. Gait was not evaluated. Insight and judgment are mildly impaired. Vital Signs (Past 24 Hours) Last Vital Signs Temp 36.6 C 08/23/23 11:38 Pulse 100 H 08/23/23 11:38 Resp 18 08/23/23 11:38 BP 83/46 L 08/23/23 11:38 Pulse Ox 91 08/23/23 11:38 O2 Del Method Room Air 08/23/23 11:38 O2 Flow Rate 2 08/22/23 14:10 Results & Data ([facility]) Laboratory Results Laboratory Results - last 24 hr 08/23/23 08/23/23 05:42 08:12 WBC 8.35 RBC 4.27 L Hgb 11.9 L Hct 38.4 L MCV 89.9 MCH 27.9 MCHC 31.0 L RDW Std Deviation 58.3 H RDW Coeff of Alex 17.5 H Plt Count 326 MPV 9.5 Sodium 135 L Potassium 4.3 Chloride 104 Carbon Dioxide 24 Anion Gap 7 BUN 21 Creatinine 0.88 Est Cr Clr Drug Dosing 106.9 Est GFR ( Amer) 109.0 Est GFR (Non-Af Amer) 94.0 BUN/Creatinine Ratio 23.9 H Glucose 100 H Calcium 9.1 Random Vancomycin 18.1 Current Inpatient Medications Current Inpatient Medications: Current Inpatient Medications Acetaminophen (Acetaminophen 325 Mg Tab) 650 mg PO Q4H PRN PRN Reason: Pain or Fever Stop: 09/12/23 05:30 Last Admin: 08/20/23 06:13 Dose: 650 mg Alendronate Sodium (Alendronate Sodium 70 Mg Tab) 70 mg PO Fr@0630 [facility] Stop: 09/16/23 06:29 Last Admin: 08/17/23 05:53 Dose: 70 mg Apixaban (Apixaban 5 Mg Tablet) 5 mg PO BID [facility] Stop: 09/12/23 08:59 Last Admin: 08/21/23 08:19 Dose: 5 mg Aspirin (Aspirin 81 Mg Ectab) 81 mg PO QAM [facility] Stop: 09/12/23 08:59 Last Admin: 08/23/23 07:50 Dose: 81 mg Digoxin (Digoxin 0.125 Mg Tab) 0.125 mg PO DAILY@1600 [facility] Stop: 09/12/23 15:59 Last Admin: 08/22/23 15:25 Dose: 0.125 mg Escitalopram Oxalate (Escitalopram Oxalate 10 Mg Tab) 10 mg PO QAM [facility] Stop: 09/14/23 08:59 Last Admin: 08/23/23 07:49 Dose: 10 mg Furosemide (Furosemide 40 Mg Tab) 40 mg PO QAM [facility] Stop: 09/20/23 08:59 Last Admin: 08/22/23 08:56 Dose: 40 mg Furosemide (Furosemide 40 Mg/4 Ml Vial) 40 mg IV DAILY [facility] Stop: 09/23/23 08:59 Heparin Sodium (Porcine) (Heparin Sod 5,000 Unit/0.5 Ml Vial) 5,000 units SQ Q12 MAIRA Stop: 09/20/23 20:59 Last Admin: 08/23/23 07:47 Dose: 5,000 units Hydromorphone HCl (Hydromorphone Inj 0.5 Mg/0.5 Ml Syr) 0.5 mg IV Q6H PRN PRN Reason: Pain Stop: 09/06/23 09:54 Last Admin: 08/23/23 10:40 Dose: 0.5 mg Vancomycin HCl 1,500 mg/ (Sodium Chloride) 530 mls @ 200 mls/hr IV Q12H [facility] Stop: 09/25/23 01:59 Last Infusion: 08/23/23 04:08 Dose: Infused Lactobacillus Acidophilus (Advanced Probiotic 625 Mg Capsule) 1,250 mg PO DAILY [facility] Stop: 09/14/23 11:14 Last Admin: 08/23/23 07:48 Dose: 1,250 mg Loperamide HCl (Loperamide Hcl 2 Mg Cap) 2 mg PO Q6H PRN PRN Reason: Diarrhea Stop: 09/17/23 16:16 Metoprolol Succinate (Metoprolol Succ 50mg Ext Rel Tab) 100 mg PO BID [facility] Stop: 09/21/23 20:59 Last Admin: 08/23/23 07:45 Dose: 100 mg Metoprolol Tartrate (Metoprolol Tartrate 1 Mg/Ml Vial) 5 mg IV Q6 PRN PRN Reason: Tachycardia HR>110 Stop: 09/21/23 11:59 Last Admin: 08/22/23 10:36 Dose: 5 mg Miscellaneous Information (Vancomycin Consult Active) 1 each N/A UD PRN PRN Reason: Consult Stop: 09/12/23 16:09 Oxycodone/Acetaminophen (Oxycodone/Acetaminophen 10-325 Tab) 1 tab PO Q6H PRN PRN Reason: Pain, Severe Stop: 08/27/23 05:30 Last Admin: 08/23/23 07:47 Dose: 1 tab Pantoprazole Sodium (Pantoprazole 40 Mg Tab) 40 mg PO DAILYBB [facility] Stop: 09/12/23 06:29 Last Admin: 08/23/23 06:06 Dose: 40 mg Polyethylene Glycol (Polyethylene (Miralax) 17 Gm Pack) 17 gm PO DAILY PRN PRN Reason: Constipation Stop: 09/12/23 05:30 Prednisone (Prednisone 5 Mg Tab) 5 mg PO DAILY [facility] Stop: 09/17/23 08:59 Last Admin: 08/23/23 07:48 Dose: 5 mg Rosuvastatin Calcium (Rosuvastatin Calcium 5 Mg Tab) 5 mg PO QAM [facility] Stop: 09/12/23 08:59 Last Admin: 08/23/23 07:46 Dose: 5 mg Sacubitril/Valsartan (Valsartan/Sacubitril 26/24mg Tab) 1 tab PO BID [facility] Stop: 09/12/23 08:59 Last Admin: 08/23/23 07:45 Dose: 1 tab Sildenafil Citrate (Sildenafil Citrate 20 Mg Tablet) 40 mg PO HS [facility] Stop: 09/12/23 20:59 Last Admin: 08/22/23 20:12 Dose: 40 mg Sildenafil Citrate (Sildenafil Citrate 20 Mg Tablet) 20 mg PO BID@0730,1200 [facility] Stop: 09/13/23 07:29 Last Admin: 08/23/23 10:46 Dose: 20 mg Spironolactone (Spironolactone 12.5 Mg Tab) 12.5 mg PO QAM [facility] Stop: 09/12/23 08:59 Last Admin: 08/23/23 07:49 Dose: 12.5 mg Sulfasalazine (Sulfasalazine 500 Mg Tablet) 500 mg PO QAM [facility] Stop: 09/12/23 08:59 Last Admin: 08/23/23 07:46 Dose: 500 [address] [place]meclidinium [place] (Umeclidinium [place] 62.5mcg/Blister 7 Puffs/Inhaler) 1 puffs INH QAM [facility] Stop: 09/12/23 08:59 Last Admin: 08/23/23 07:50 Dose: 1 puffs Vitamin D (Cholecalciferol 10 Mcg (400 Units) Tab) 10 mcg PO DAILY [facility] Stop: 09/12/23 08:59 Last Admin: 08/23/23 07:47 Dose: 10 mcg
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
--- NOTE | 2023-08-23 22:49 | Orthopedic Progress Note ---
Date of Service August 23, 2023 Assessment & Plan (1) PAD (peripheral artery disease): (2) Open wound of right great toe with damage to nail: (3) Toe pain, right: Plan - patient examined and evaluated. - he is doing well one day status postright partial hallux and rotation. There are no new concerns. - From a foot and ankle perspective, he can be discharged home and follow-up next week outpatient. He should keep his dressing clean, dry, and intact until then. - He would still likely benefit from 2 weeks of oral antibiotics on discharge. - We will plan on seeing him next week to examine the foot in the office, followed by 2 weeks from now for suture removal. - He should call the office sooner than later if he develops any other concerns. Otherwise, this toe is likely to heal uneventfully. Admission and Anticipated Discharge Date Admission Date: August 13, 2023 Subjective patient seen at bedside. States that he is having some pain to the toe but only locally to the surgical site. He denies any signs or symptoms of infection. He also denies any new concerns. He does state that he is likely to be discharged to home, and thinks he will likely be ready for discharge tomorrow. Denies any calf pain Review of Systems Constitutional: no fever and no chills Eyes: no problem reported Ear, Nose, Mouth, Throat: no ear pain and no nasal congestion Respiratory: no cough, no chest congestion and no wheezing Cardiovascular: no chest pain, no edema and no calf pain Gastrointestinal: no abdominal pain, no nausea and no vomiting Genitourinary: no problem reported Musculoskeletal: + stiffness; no joint pain and no proble m reported Integumentary: + new lesions, + non-healing lesions, + changing lesions and + dry skin Neurologic: + generalized weakness, + loss of sensat ion, + numbness and + paresthesia Psychiatric: + behavioral changes, + depression and + hallucinations; no suicidal ideation Endocrine: no problem reported Physical Exam Physical Exam: surgical dressing is clean, dry, and intact with no loosening or bleeding to the toe. There is no evidence of a sending infection. Pain is noted palpation of the toea,i tulvn Constitutional: WD/WN, vitals as above + disheveled Eyes: PERRL, conjunctivae normal, anicteric sclerae ENMT: external ear and nose normal, oropharynx normal Neck: trachea midline, no thyromegaly Respiratory: normal respiratory effort, lungs clear to auscultation normal respiratory effort; no respiratory distress Cardiovascular: RRR, no murmur, no edema Vessels: posterior tibial pulses present and dorsalis pedis pulses present Extremities: normal capillary refill Gastrointestinal (Abdomen): normal bowel sounds, soft, nontender, no hepatosplenomegaly Inspection/Auscultation: abdomen not distended Percussion/Palpation: no guarding Musculoskeletal: no cyanosis or clubbing, extremities motor strength 5/5 Head/Neck/Chest: normocephalic and head atraumatic Extremities: + limited ROM of extremities Skin: no rashes, warm and dry + lesion, + ulcer and + wound Neurologic: patellar DTR's 2+ bilat, sensation intact and PERRL, EOMI, accommodation nl, no face palsy, no dysarthria Psychiatric: A+Ox3, euthymic affect Results & Data Vital Signs (Past 12 Hours) Vital Signs Temp Pulse Pulse Resp BP BP Pulse Ox 08/23/23 19:00 36.6 C 102 H 18 107/72 92 08/23/23 15:41 96 H 08/23/23 11:38 36.6 C 100 H 18 83/46 L 93/56 L 91 O2 Del Method 08/23/23 19:00 Room Air 08/23/23 15:41 08/23/23 11:38 Room Air (2) Open wound of right great toe with damage to nail Encounter type: initial encounter Qualified Code(s): S91.201A - Unspecified open wound of right great toe with damage to nail, initial encounter
[2023-08-24] MEDS: FUROSEMIDE 40 MG/4 ML VIAL IV SCH (07:51)
[2023-08-24 08:06] LABS: BUN Creatinine Ratio 27.6 (10-20); Calcium 9.6 mg/dl (8.6-10.3); Creatinine Clr Calc Pharmacy 95.9 ml/min; Est GFR (African American) 97.4 ml/min; Est GFR (Non-African American) 84.1 ml/min; Potassium 4.5 mmol/L (3.5-5.1)
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
--- NOTE | 2023-08-24 14:34 | Communication Note ---
Date of Service: August 24, 2023 I came in to meet with the patient today. He seems to be doing a little bit better with his pain and movement. Physical therapy has been working with him and there is a good chance that he may be transferring to a rehab facility. When I met with the patient, he was a little bit ambivalent about rehab versus going back to live with his mom. Given what he is telling me, I do not think the mother would be helpful at all with helping him get around the house. He is denying any suicidal ideation. Based on where he goes from here, we we will need to set up individual psychotherapy so it would be important for the bilingual case manager to talk to the psychiatric nurse liaison so that that can be planned. Continue with the Lexapro for now.
[2023-08-24] MEDS: SODIUM CHLORIDE 0.9% 1,000 ML IV SCH (16:47)
[2023-08-25 06:50] LABS: Hematocrit (blood only) 35.4 % (42.0-52.0); Mean Corpuscular Hemoglobin 27.8 pg (25.0-34.0); Mean Corpuscular Hgb Conc 31.1 g/dL (32.0-36.0); Mean Corpuscular Volume 89.4 fL (80.0-100.0); Mean Platelet Volume 10.3 fL (9.4-12.4); Platelet Count 310 K/uL (130-400); RDW Coefficient of Variation 17.2 % (11.5-14.5); RDW Standard Deviation 56.5 fL (36.4-46.3); Red Blood Count 3.96 M/uL (4.70-6.10); White Blood Count 8.89 K/ul (4.8-10.8)
[2023-08-25 07:24] LABS: BUN Creatinine Ratio 27.7 (10-20); Calcium 9.2 mg/dl (8.6-10.3); Creatinine Clr Calc Pharmacy 116.9 ml/min; Est GFR (African American) 111.6 ml/min; Est GFR (Non-African American) 96.3 ml/min; Magnesium 1.7 mg/dl (1.7-2.4); Phosphorus 2.4 mg/dl (2.5-4.9); Potassium 4.2 mmol/L (3.5-5.1)
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
[2023-08-25] MEDS: PIPER/TAZO 4.5g in D5W MINI-B 100 ML IV ONE (09:50)
[2023-08-25] MEDS: MAGNESIUM SULFATE / D5W 1 GM/100 ML BAG IV ONE (10:05)
--- NOTE | 2023-08-25 10:35 | XRay Report ---
XR chest 1V portable HISTORY: hypoxia COMPARISON: Chest 08/13/2023. FINDINGS: No pneumothorax. No pleural effusions. The heart remains enlarged. Mild interstitial thicke alma, unchanged. This is likely chronic. The pulmonary nodule seen on the recent chest CT are not wel l evaluated by this modality. No evidence for pulmonary edema. There are low lung volumes. Advanced d egenerative changes within the shoulders. IMPRESSION: 1. Stable cardiomegaly and chronic interstitial thickening. 2. The pulmonary nodules seen on the recent chest CT are not well evaluated by this modality. ACT 112: Negative or not required by law. Electronically signed by: Spencer Christianson M.D. 08/25/2023 10:34 AM
[2023-08-25] MEDS: guaiFENesin 600 MG TABCR PO SCH (12:37)
[2023-08-25] MEDS: ALBUMIN 25% 25 GM/100 ML VIAL IV ONE (14:41)
[2023-08-25] MEDS: METOPROLOL TARTRATE 1 MG/ML VIAL IV STA (14:41)
--- NOTE | 2023-08-25 15:09 | Communication Note ---
Date of Service: August 25, 2023 Today I stop by to meet with the patient and just check and see how he is doing. He had just finished physical therapy and was sweaty and out of breath, but he was pleasant and cooperative. He has been communicating with both his mother and with his girlfriend. He denied any suicidal ideation. He still thinking forward about the future. In fact, he pointed out how much he cares about his 3-year-old son and we does not want to hurt him. I texted with Dr. Arzola and asked her to let our team know when we know exactly where he is discharging to so we can set up psychiatric med management and individual therapy.
--- NOTE | 2023-08-25 16:02 | Cardiology Progress Note ---
Date of Service August 25, 2023 Assessment & Plan (1) Elevated troponin: (2) Chronic combined systolic and diastolic CHF (congestive heart failure): (3) PAD (peripheral artery disease): (4) Raynauds disease: (5) Permanent atrial fibrillation: Plan IMPRESSION: Medically complex 58 year old male who initially presented to [facility] due to AMS/for psyc evaluation. Patient carries a history of history of chronic combined diastolic and systolic CHF with right heart failure. On admission he was found to have a necrotic right great toe--he does have a known history of peripheral arterial disease and Raynaud's. In addition he carries a history of permanent atrial fibrillation--rate controlled on metoprolol and digoxin and anticoagulated with Eliquis. Due to right great toe osteomyelitis and gangrene patient ultimately underwent right hallux partial amputation with Dr. Somers on 08/22/2023. ID was consulted for recommendations of antibiotics. Patient is currently on IV vancomycin. Cardiology reconsulted due to hypotension and tachycardia. Patient appears markedly hypervolemic up about 18 pounds. Likely in the setting of high IV fluid intake. PLAN: Elevated troponin: Known nonobstructive CAD-- medically managed. Chronic elevation in HS troponin-- patient without chest pain or shortness of breath. EKG without ischemic changes. Low likelihood for ACS. -Continue ASA and statin as ordered. Chronic combined diastolic and systolic CHF + RHF: LVEF ~50% on most recent echo (improved). Dilated RV with reduced systolic function on prior - Hypervolemic on exam. Up about 18 pounds from admission. Will give an additional 40 mg of IV Lasix now. Start IV Lasix 40 mg twice daily tomorrow. - Continue GDMT with metoprolol succinate as ordered. Will hold Entresto and spironolactone due to hypotension and allow for more aggressive diuresis. -Monitor renal function and electrolytes. Replace potassium for goal of 4.0 and mag of 2.0. -2 g sodium diet. 1500 cc fluid restriction. strict intake and output recording. Daily standing weights. CHF education. PAD/Raynaud's: Osteomyelitis and gangrene of the right great toe status post partial amputation 08/22/2023 ID consulted for antibiotic recommendations -Continue ASA 81 mg daily and statin as ordered. -Repeat blood cultures pending. Permanent atrial fib: Asymptomatic. Borderline rate control. -Continue metoprolol and digoxin as ordered. As diuresis occurs rates will likely improve. -Continue Eliquis for stroke prevention Confusion/AMS: Patient having issues at home caring for himself. Poor historian. Admitted for mental health eval. -Will defer to primary service/Psyc for recommendations. Case discussed with Dr. Allen further recommendations pending his assessment. I spent a total of 40 minutes on the date of service in preparation, delivery, and documentation of the care provided to the patient excluding any time spent in the performance of separately billed services. PATRICK Doyle Department of Cardiology, [facility] This chart was completed in part utilizing Speech Voice Recognition Software. Grammatical errors, random word insertions, pronoun errors, and incomplete sentences are an occasional consequence of this system due to software limitations, ambient noise, and hardware issues. Any formal questions or concern s about the content, text, or information contained within the body of this dictation should be directly addressed to the provider for clarification. Admission and Anticipated Discharge Date Admission Date: August 13, 2023 Supervising Physician Co-Signing Physician Notes Patient was seen and examined, chart, medications, telemetry reviewed. Assessment and plan as outlined above agree and endorse above findings. Cardiology reconsulted due to elevated heart rates and relatively lower blood pressures. Findings as noted with evidence of volume overload Medications held including spironolactone and Entresto initial IV furosemide to be administered Consider stress dose steroids with patient on chronic prednisone dosing question adrenal insufficiency if persistent hypotension and no signs of systemic infection found Subjective Patient is a medically complex 58-year-old male who was initially admitted on 08/13/2023 due to altered mental status/psych evaluation. Patient has a known history of chronic combined diastolic and systolic CHF with right heart failure. On admission he was found to have a necrotic right great toe--he does have a known history of peripheral arterial disease and Raynaud's. In addition he carries a history of permanent atrial fibrillation--rate controlled on metoprolol and digoxin and anticoagulated with Eliquis. Due to right great toe osteomyelitis and gangrene patient ultimately underwent right hallux partial amputation with Dr. Somers on 08/22/2023. ID was consulted for recommendations of antibiotics. Patient is currently on IV vancomycin Cardiology reconsulted this morning due to hypotension and tachycardia. 5 beat run of VT versus SVT with aberrant conduction noted on telemetry. Entresto was held due to hypotension. Patient was given IV fluids. I/o: +16L this admission, now receiving IV Lasix 40 mg daily Weight: 101 kg on admission >> 109.5 kg today (+18 lbs) Telemetry: A-fib in the 90s but has been as high as the 150s. EKG showing atrial fibrillation, 108 bpm. Blood cultures pending. Upon entrance into the room patient resting in bed. Head of bed minimally elevated but notes orthopnea. He is dyspneic with conversation. Diffuse edema noted in his legs abdomen and upper extremities. Family at bedside also noting swelling in his face. Patient requiring supplemental oxygen therapy. Denies chest pain. No tachy-palpitations. Denies lightheadedness or dizziness. Blood pressures have been on the low side but this seems to be a chronic finding for him. Review of Systems Review of Systems: All systems reviewed & are unremarkable except as noted in HPI & below Physical Exam Constitutional: + ill appearing; no acute distress Eyes: PERRL, conjunctivae normal, anicteric sclerae Neck: normal visual inspection and trachea midline Respiratory: + tachypneic; no respiratory distress an d + not able to speak in complete sentence Auscultation: no rales, no rhonchi and no wheezes Cardiovascular: Rate/Rhythm: regular rate, + tachycardic and + irregularly irregular Heart Sounds: normal S1 and normal S2 Vessels: + JVD Extremities: + edema (+2-3 bilateral pitting lower extremity edema) Gastrointestinal (Abdomen): Inspection/Auscultation: + abdomen distended and + abdominal edema Skin: no rashes, warm and dry Neurologic: PERRL, EOMI, accommodation nl, no face palsy, no dysarthria Psychiatric: Orientation: alert and oriented x 3 (forgetful) Results & Data Vital Signs (Past 12 Hours) Vital Signs Temp Pulse Pulse Resp BP BP BP 08/25/23 15:15 36.7 C 95 H 16 110/72 08/25/23 14:56 117 H 08/25/23 14:41 116 H 97/62 L 08/25/23 11:00 36.6 C 116 H 16 97/62 L 08/25/23 07:41 08/25/23 07:22 37.2 C 108 H 17 105/69 08/25/23 07:11 121 H Pulse Ox O2 Del Method O2 Flow Rate 08/25/23 15:15 98 Nasal Cannula 4 08/25/23 14:56 08/25/23 14:41 08/25/23 11:00 94 Room Air 08/25/23 07:41 Room Air 08/25/23 07:22 90 Room Air 08/25/23 07:11 Laboratory Results CBC 08/25/23 Range/Units 05:48 WBC 8.89 (4.8-10.8) K/ul RBC 3.96 L (4.70-6.10) M/uL Hgb 11.0 L (14.0-18.0) g/dl Hct 35.4 L (42.0-52.0) % Plt Count 310 (130-400) K/uL Comprehensive Metabolic Panel 08/25/23 Range/Units 05:48 Sodium 134 L (136-145) mmol/L Potassium 4.2 (3.5-5.1) mmol/L Chloride 102 (98-107) mmol/L Carbon Dioxide 26 (21-32) mmol/L BUN 23 (6-23) mg/dl Creatinine 0.83 (0.6-1.4) mg/dl Glucose 117 H (70-99(Fasting)) mg/dl Calcium 9.2 (8.6-10.3) mg/dl Intake and Output 08/25/23 08/25/23 08/25/23 06:59 14:59 22:59 Intake Total 1656.667 / 4216.667 440 / 440 Output Total 925 / 925 Balance 1656.667 / 1516.667 -485 / -485 Intake: IV 1416.667 / 2886.667 200 / 200 Magnesium Sulfate / D5w 1 gm In 100 / 100 100 ml @ 50 mls/hr IV ONE ONE Rx#:[id number] Piperacillin/Tazobactam 4.5 gm 100 / 100 In Dextrose 5% Mini-B 100 ml @ 200 mls/hr IV NOW ONE Rx#: [id number] Sodium Chloride 0.9% 1,000 ml @ 886.667 / 1826.667 200 mls/hr IV .Q5H [facility] Rx#: [id number] Vancomycin HCl 1,500 mg In 530 / 1060 Sodium Chloride 0.9% 500 ml @ 200 mls/hr IV Q12H [facility] Rx#: [id number] Oral 240 / 1330 240 / 240 Output: Urine 925 / 925 Other: Other Intake Source SIPS # Unmeasured Voids 1 Weight 109.5 kg Weight Measurement Method Built in [facility]
[2023-08-25] MEDS: MAGNESIUM OXIDE 400 MG TAB PO SCH (16:28)
[2023-08-25] MEDS: POTASSIUM CHLORIDE CRTAB 20 MEQ TABCR PO STA (17:09)
[2023-08-25] MEDS: FUROSEMIDE 40 MG/4 ML VIAL IV ONE (17:10)
[2023-08-25] MEDS: PIPERACILLIN/TAZOBACTAM 4.5 GM in DEXTROSE 5% MINI-B 100 ML IV SCH (17:17)
[2023-08-25] MEDS: HYDROCORTISONE SOD 50 MG in SYRINGE 0 ML IV SCH (19:52)
--- NOTE | 2023-08-26 07:02 | Cardiology Progress Note ---
Date of Service August 26, 2023 Assessment & Plan (1) Elevated troponin: (2) Chronic combined systolic and diastolic CHF (congestive heart failure): (3) PAD (peripheral artery disease): (4) Raynauds disease: (5) Permanent atrial fibrillation: Plan IMPRESSION: Medically complex 58 year old male who initially presented to [facility] due to AMS/for psyc evaluation. Patient carries a history of history of chronic combined diastolic and systolic CHF with right heart failure. On admission he was found to have a necrotic right great toe--he does have a known history of peripheral arterial disease and Raynaud's. In addition he carries a history of permanent atrial fibrillation--rate controlled on metoprolol and digoxin and anticoagulated with Eliquis. Due to right great toe osteomyelitis and gangrene patient ultimately underwent right hallux partial amputation with Dr. Somers on 08/22/2023. ID was consulted for recommendations of antibiotics. Patient is currently on IV vancomycin. Cardiology reconsulted due to hypotension and tachycardia. Patient appears markedly hypervolemic up about 18 pounds. Likely in the setting of high IV fluid intake. PLAN: Elevated troponin: Known nonobstructive CAD-- medically managed. Chronic elevation in HS troponin-- patient without chest pain or shortness of breath. EKG without ischemic changes. Low likelihood for ACS. -Continue ASA and statin as ordered. Chronic combined diastolic and systolic CHF + RHF: LVEF ~50% on most recent echo (improved). Dilated RV with reduced systolic function on prior -Patient remains hypervolemic on exam but is responding well to increased dose of IV Lasix. Should continue IV Lasix 40 mg twice daily--repeat blood work from this morning is pending. - Continue GDMT with metoprolol succinate as ordered. Will hold Entresto and spironolactone due to hypotension and allow for more aggressive diuresis. -Monitor renal function and electrolytes. Replace potassium for goal of 4.0 and mag of 2.0. -2 g sodium diet. 1500 cc fluid restriction. strict intake and output recording. Daily standing weights. CHF education. As noted in prior progress note by Dr. Allen-- Consider stress dose steroids with patient on chronic prednisone dosing question adrenal insufficiency if persistent hypotension and no signs of systemic infection found. PAD/Raynaud's: Osteomyelitis and gangrene of the right great toe status post partial amputation 08/22/2023 ID consulted for antibiotic recommendations -Continue ASA 81 mg daily and statin as ordered. -Repeat blood cultures pending. Permanent atrial fib: Asymptomatic. Borderline rate control. -Continue metoprolol and digoxin as ordered. As diuresis occurs rates will likely improve. -Continue Eliquis for stroke prevention Confusion/AMS: Patient having issues at home caring for himself. Poor historian. Admitted for mental health eval. -Will defer to primary service/Psyc for recommendations. Case discussed with Dr. Allen further recommendations pending his assessment. I spent a total of 30 minutes on the date of service in preparation, delivery, and documentation of the care provided to the patient excluding any time spent in the performance of separately billed services. PATRICK Doyle Department of Cardiology, [facility] This chart was completed in part utilizing Speech Voice Recognition Software. Grammatical errors, random word insertions, pronoun errors, and incomplete sentences are an occasional consequence of this system due to software li mitations, ambient noise, and hardware issues. Any formal questions or concerns about the content, text, or information contained within the body of this dictation should be directly addressed to the provider for clarification. Admission and Anticipated Discharge Date Admission Date: August 13, 2023 Supervising Physician Co-Signing Physician Notes Patient was seen and personally examined. Full assessment and plan as outlined above. Case and care discussed in detail with advanced provider, agree with plan and take full responsibility Patient seen yesterday with elevated atrial fibrillation response rate secondary to acute decompensated systolic/diastolic heart failure, volume overload with ongoing IV fluid administration for infectious treatment Patient responded to IV diuretics with improved heart rate, volume load We will continue to hold Entresto but will likely need to resume at lower dosing as course progresses Watch for adrenal insufficiency given chronic steroid usage I spent a total of 20 minutes on the date of service in preparation, delivery, and documentation of the care provided to the patient excluding any time spent in the performance of separately billed services. Subjective Medically complex 58 year old male who initially presented to [facility] due to AMS/for psyc evaluation. Patient carries a history of history of chronic combined diastolic and systolic CHF with right heart failure. On admission he was found to have a necrotic right great toe--he does have a known history of peripheral arterial disease and Raynaud's. In addition he carries a history of permanent atrial fibrillation--rate controlled on metoprolol and digoxin and anticoagulated with Eliquis. Due to right great toe osteomyelitis and gangrene patient ultimately underwent right hallux partial amputation with Dr. Somers on 08/22/2023. ID was consulted for recommendations of antibiotics. Patient is currently on IV vancomycin. 08/25/2023: Cardiology reconsulted due to hypotension and tachycardia. Patient appears markedly hypervolemic up about 18 pounds. Likely in the setting of high IV fluid intake. Entresto and spironolactone held. Treated with an additional 40 mg of IV Lasix in the evening. 08/26/2023: Telemetry: A-fib in the 90s to low 100 BP improved over night. I/o: +16L this admission. Weight: 101 kg on admission >> 109.5 kg 08/24/2022 (+18 lbs) >> 102.5 kg (08/26/2023) ? accuracy Labs: PENDING Upon entrance into the room patient sitting up in bed. Subjectively feels improved compared to yesterday from a cardiac standpoint but does feel "down" as he is missing Easter with his 3-year-old. After receiving the additional IV Lasix last evening he notes a significant increase in his urination. With this he has had improvement in his shortness of breath. No chest pain or palpitations. Denies lightheadedness or dizziness. Continues to have some mild orthopnea. Lower extremity edema persist. Review of Systems Review of Systems: All systems reviewed & are unremarkable except as noted in HPI & below Physical Exam Constitutional: WD/WN, vitals as above + ill appearing; no acute distress Eyes: PERRL, conjunctivae normal, anicteric sclerae Neck: normal visual inspection and trachea midline Respiratory: normal respiratory effort, lungs clear to auscultation + tachypneic; no respiratory distress and + not able to speak in complete sentence Auscultation: no rales, no rhonchi and no wheezes Cardiovascular: Rate/Rhythm: regular rate, + tachycardic and + irregularly irregular Heart Sounds: normal S1 and normal S2 Vessels: + JVD Extremities: + edema (+2-3 bilateral pitting lower extremity edema) Gastrointestinal (Abdomen): normal bowel sounds, soft, nontender, no hepatosplenomegaly Inspection/Auscultation: + abdomen distended and + abdominal edema Skin: no rashes, warm and dry Neurologic: PERRL, EOMI, accommodation nl, no face palsy, no dysarthria Psychiatric: Orientation: alert and oriented x 3 (forgetful) Results & Data Vital Signs (Past 12 Hours) Vital Signs Temp Pulse Pulse Resp BP BP Pulse Ox 08/26/23 04:06 36.5 C 83 18 113/67 96 08/26/23 00:20 08/25/23 23:00 37.2 C 105 H 18 104/66 94 08/25/23 21:55 108 H 08/25/23 20:46 113 H 112/77 95 08/25/23 20:15 107 H 125/77 08/25/23 19:53 117 H 135/82 08/25/23 19:51 117 H 135/82 96 08/25/23 19:00 36.9 C 104 H 18 131/79 97 O2 Del Method 08/26/23 04:06 Room Air 08/26/23 00:20 Room Air 08/25/23 23:00 Room Air 08/25/23 21:55 08/25/23 20:46 Room Air 08/25/23 20:15 08/25/23 19:53 08/25/23 19:51 Room Air 08/25/23 19:00 Room Air
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
[2023-08-26 08:23] LABS: Hematocrit (blood only) 33.6 % (42.0-52.0); Hemoglobin 10.8 g/dl (14.0-18.0); Mean Corpuscular Hemoglobin 28.2 pg (25.0-34.0); Mean Corpuscular Hgb Conc 32.1 g/dL (32.0-36.0); Mean Corpuscular Volume 87.7 fL (80.0-100.0); Mean Platelet Volume 9.6 fL (9.4-12.4); Platelet Count 294 K/uL (130-400); RDW Coefficient of Variation 17.1 % (11.5-14.5); RDW Standard Deviation 54.2 fL (36.4-46.3); Red Blood Count 3.83 M/uL (4.70-6.10); White Blood Count 9.66 K/ul (4.8-10.8)
[2023-08-26] MEDS: FUROSEMIDE 40 MG/4 ML VIAL IV SCH (08:32)
[2023-08-26 08:38] LABS: BUN Creatinine Ratio 26.6 (10-20); Calcium 8.9 mg/dl (8.6-10.3); Creatinine Clr Calc Pharmacy 118.8 ml/min; Est GFR (African American) 113.9 ml/min; Est GFR (Non-African American) 98.3 ml/min; Magnesium 1.9 mg/dl (1.7-2.4); Potassium 4.1 mmol/L (3.5-5.1)
[2023-08-26 09:19] LABS: Phosphorus 1.9 mg/dl (2.5-4.9)
--- NOTE | 2023-08-26 09:56 | Pharmacy Report ---
Pharmacy PK ABX Note - Date of Service August 26, 2023 - Assessment and Plan Assessment 08/25: Per provider, no switch to PO abx at this point as patient not feeling well. Zosyn was added back and Bcx obtained. 08/22: Patient is s/p right hallux amputation on 08/21. Per provider notes, patient will likely be discharged today on PO antibiotics. 08/19: Today is day #8 of vancomycin for right great toe osteomyelitis. Plan is likely for 6 weeks of antibiotic therapy. Foot culture showing skin john. Renal function remains stable. Afebrile w/ no overt leukocytosis. 08/16: Reviewed vancomycin level, predicting a therapeutic AUC/KENAN. Continue current regimen 08/14: 58 year old M receiving empiric vancomycin and Zosyn for treatment of right great toe necrosis w/ concern for possible osteomyelitis. No cultures obtained. Renal function appears to be at/near baseline. Podiatry and orthopedic surgery consulted. Possible debridement. Pertinent PMH includes PAD and Raynaud's dx. Renal function stable. Afebrile, no leukocytosis. Day #3 of antimicrobial therapy. Plan Vancomycin * Current regimen: 1500 mg IV every 12 hours * Random level obtained 08/26/23 resulted as 20.4 mcg/mL. This is predicted to achieve target AUC/KENAN of 400-600 mg/L.hr * Predicted AUC at steady state: 469 mg/L.hr * Continue 1500 mg IV every 12 hours * Will repeat level in the next 48-72 hours if therapy is continued and/or change in patient clinical status Pharmacy will continue to follow and will adjust dose/frequency as necessary. Thank you. Pharmacy has transitioned to AUC monitoring for vancomycin. AUC/KENAN is the preferred PK/PD target and is associated with decreased risk of nephrotoxicity compared to traditional trough targets.
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
[2023-08-27] MEDS: POT PHOSPHATE MONOBASIC W/ SOD TAB PO SCH (08:37)
[2023-08-27 09:24] LABS: Hematocrit (blood only) 35.3 % (42.0-52.0); Hemoglobin 11.4 g/dl (14.0-18.0); Mean Corpuscular Hemoglobin 28.4 pg (25.0-34.0); Mean Corpuscular Hgb Conc 32.3 g/dL (32.0-36.0); Mean Corpuscular Volume 87.8 fL (80.0-100.0); Mean Platelet Volume 10.2 fL (9.4-12.4); Platelet Count 357 K/uL (130-400); RDW Coefficient of Variation 17.2 % (11.5-14.5); RDW Standard Deviation 54.9 fL (36.4-46.3); Red Blood Count 4.02 M/uL (4.70-6.10); White Blood Count 10.77 K/ul (4.8-10.8)
[2023-08-27 09:57] LABS: Potassium 3.3 mmol/L (3.5-5.1)
[2023-08-27 10:07] LABS: Creatinine Clr Calc Pharmacy 76.9 ml/min; Est GFR (African American) 74.7 ml/min; Est GFR (Non-African American) 64.5 ml/min; Phosphorus 2.8 mg/dl (2.5-4.9)
--- NOTE | 2023-08-27 11:17 | Psychiatric Progress Note ---
Date of Service August 27, 2023 Impression / Recommendations Impression 58 yo male with steroid dependent RA and a variety of other medical conditions dealing with chronic pain, both of which can contribute to irritability which is then amplified with martial discord. He does not feel unsafe at home and would prefer to stay with mother for a few days until things "calm down." Currently cooperative with medical care. 08/27/2023: Patient seems to be doing okay on the unit. I have no evidence of what happened last night and I do not know if either the patient or his girlfriend are telling the truth. Nevertheless, there is nothing I am seeing here today or in the last few days that makes me feel that the patient or anybody else is in acute danger. (1) Depressive disorder: Plan I agree with the ED assessment that there is no evidence of active psychosis, ron, or delirium currently interfering with his medical decision making (302 already declined by ED physician). continue Lexapro and outpatient therapy minimize steroid, ?TSH trending up--defer to hospitalist/PCP there is no indication for inpatient psychiatric hospitalization at this time. await confirmatory test on urine tox 08/20/2023: I do not think the patient is in acute danger in the hospital. He is looking forward to the surgery and thinks that will help him overall. We will continue with the Lexapro 10 mg daily. I will continue to follow with him over the next couple of days. On , we will need to decide if he is ready to go home or if he will need further hospitalization on the psychiatric unit for safety. At the moment, he seems amenable to treatment and getting help. We will also want to make sure we set him up with some outpatient individual therapy if possible. 08/21/2023: I will continue to monitor the situation and check in with the patient daily. According to Dr. Somers, it looks like the patient may be ready for discharge on morning, August 22. We will continue with the Lexapro. At the moment, I suspect we will not have to admit him to the psychiatric unit and just set him up with outpatient individual therapy and medication management. However, we will take it a day at a time. 08/22/2023: I will continue to monitor the situation and check in with the patient 1 more time tomorrow. Now that his surgical procedures done, he will likely be discharging tomorrow. We will try to decide if he still will need a psychiatric hospitalization. We will continue with the Lexapro. If we decide to send him home, he will need outpatient medication management and individual therapy. 08/23/2023: I am not going to make any changes. I discussed with the psychiatric nurse liaison that we need to get him set up with outpatient medication management and individual therapy. We will continue with Lexapro 10 mg daily. He may be discharging today. If he is here tomorrow, I will see him 1 more time. 08/26/2023: No changes. Continue with the Lexapro. We will continue to check in with him while he is here. It will be important that we know when and where he is going to discharge to so the psychiatric nurse liaison can help set up individual therapy after discharge. 08/27/2023: No changes from yesterday. Continue with the Lexapro. Try to get him into some counseling. From my point of view as a psychiatrist, I think him taking part in rehab is probably better than him going his mother's home right now given the drama outside of the hospital, but I do not think he needs to go into a psychiatric hospital. Today I spent 36 minutes on the case. This included meeting with the patient, reviewing the chart, discussing the case with the psychiatric nurse liaison, receiving a nursing report, and documentation. Suicide Risk Level Suicide Risk Level: Low (q15 min observation checks) Interval History Identifying Information 58 yo male with from [place], brought to ED on 08/12 on a 302 warrant for alleged inability to care for self. The warrant was declined in ED but he was admitted medically for further assessment/evaluation. Chief Complaint "Because of an infected toe." Subjective Subjective Today I met with the patient, received nursing report, and reviewed the chart. Sounds like Harrison's girlfriend came by to visit with their son sometime in the evening yesterday. It sounds like something happened in the patient's room with the girlfriend. According to the nursing note, girlfriend accused patient of an aggressive outburst of some sort and that he had broken things in the room, but when the nurses looked in the room they could not find anything that has been destroyed. Later in the evening, the patient did not want the girlfriend to be given any information about how he was doing. The nursing note from last evening at 7:32 PM included some documentation of the son saying "I am so stressed." When I met with the patient today, he seemed to be in a good mood and was pleasant and cooperative with me he admitted that there was a difficult meeting with his girlfriend, but he denied that there was any aggression or any type of altercation. 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 Physically, he is feeling a lot better and he is exhibiting a lot less edema. His left hand which had previously been extremely swollen looked pretty normal. He has been getting up and using the bathroom and working with physical therapy. It sounds like he is subjectively doing well with his heart. He says he feels pretty well and has not noticed anything that he is concerned about. He is eager to get out of the hospital as soon as he can. We talked about when his stitches will come out and according to the note from podiatry it is at the 2-week point from the surgery. He denied any suici martinez thoughts or problems with his mood. He says that his girlfriend can sometimes wind him up but that was about it. Procedures Performed Operation Date: 08/22/23 12:15 Actual Procedures p Right Hallux Partial Amputation(Right) - Nilesh Somers DPM Physical Exam Psychiatric Patient was alert and slightly guarded. Eye contact was good. He was clean but a little disheveled in hospital gown. Speech was normal. Mood was described as "good." Affect was full. Thought process seems logical and somewhat goal- directed. There was no evidence of any hallucinations or delusions. He denied suicidal or homicidal thoughts. Memory and concentration seemed reasonable. No abnormal movements were seen. I did not evaluate his gait. Insight and judgment seem fair to good. Vital Signs (Past 24 Hours) Last Vital Signs Temp 36.4 C L 08/27/23 07:33 Pulse 78 08/27/23 10:33 Resp 16 08/27/23 07:33 BP 120/77 08/27/23 07:33 Pulse Ox 94 08/27/23 07:33 O2 Del Method Room Air 08/27/23 10:09 O2 Flow Rate 4 08/25/23 15:15 Results & Data (U) Laboratory Results Laboratory Results - last 24 hr 08/27/23 08:33 WBC 10.77 RBC 4.02 L Hgb 11.4 L Hct 35.3 L MCV 87.8 MCH 28.4 MCHC 32.3 RDW Std Deviation 54.9 H RDW Coeff of Alex 17.2 H Plt Count 357 MPV 10.2 Sodium 139 Potassium 3.3 L Chloride 101 Carbon Dioxide 26 Anion Gap 12 H BUN 28 H Creatinine 1.22 D Est Cr Clr Drug Dosing 76.9 Est GFR ( Amer) 74.7 Est GFR (Non-Af Amer) 64.5 BUN/Creatinine Ratio 23.0 H Glucose 152 H Calcium 9.0 Phosphorus 2.8 Magnesium 2.0 Current Inpatient Medications Current Inpatient Medications: Current Inpatient Medications Acetaminophen (Acetaminophen 325 Mg Tab) 650 mg PO Q4H PRN PRN Reason: Pain or Fever Stop: 09/12/23 05:30 Last Admin: 08/26/23 12:58 Dose: 650 mg Alendronate Sodium (Alendronate Sodium 70 Mg Tab) 70 mg PO Fr@0630 [facility] Stop: 09/16/23 06:29 Last Admin: 08/24/23 06:04 Dose: 70 mg Apixaban (Apixaban 5 Mg Tablet) 5 mg PO BID [facility] Stop: 09/12/23 08:59 Last Admin: 08/27/23 07:49 Dose: 5 mg Aspirin (Aspirin 81 Mg Ectab) 81 mg PO [facility] Stop: 09/12/23 08:59 Last Admin: 08/27/23 07:47 Dose: 81 mg Digoxin (Digoxin 0.125 Mg Tab) 0.125 mg PO DAILY@1600 [facility] Stop: 09/12/23 15:59 Last Admin: 08/26/23 15:57 Dose: 0.125 mg Escitalopram Oxalate (Escitalopram Oxalate 10 Mg Tab) 10 mg PO [facility] Stop: 09/14/23 08:59 Last Admin: 08/27/23 07:48 Dose: 10 mg [facility]urosemide ([facility] 40 Mg Tab) [facility] [place]: 09/20/23 08:59 Last Admin: 08/22/23 08:56 Dose: 40 mg Furosemide (Furosemide 40 Mg/4 Ml Vial) 40 mg IV BID17 [facility] Stop: 09/25/23 08:59 Last Admin: 08/27/23 07:48 Dose: 40 mg Guaifenesin (Guaifenesin 600 Mg Tabcr) 600 mg PO Q12 [facility] Stop: 09/24/23 10:29 Last Admin: 08/27/23 07:48 Dose: 600 mg Heparin Sodium (Porcine) (Heparin Sod 5,000 Unit/0.5 Ml Vial) 5,000 units SQ Q12 [facility] Stop: 09/20/23 20:59 Last Admin: 08/25/23 08:28 Dose: 5,000 units Hydromorphone HCl (Hydromorphone Inj 0.5 Mg/0.5 Ml Syr) 0.5 mg IV Q6H PRN PRN Reason: Pain Stop: 09/06/23 09:54 Last Admin: 08/26/23 22:06 Dose: 0.5 mg Vancomycin HCl 1,500 mg/ (Sodium Chloride) 530 mls @ 200 mls/hr IV Q12H [facility] Stop: 09/25/23 01:59 Last Infusion: 08/27/23 05:17 Dose: Infused Piperacillin Sod/Tazobactam (Sod 4.5 gm/ Dextrose) 100 mls @ 25 mls/hr IV Q8H [facility]; Protocol Stop: 08/27/23 14:29 Last Infusion: 08/27/23 09:34 Dose: Infused Hydrocortisone Sodium (Succinate 50 mg/ Syringe) 1 mls @ 4 mls/min IV Q8H [facility] Stop: 09/24/23 18:59 Last Admin: 08/27/23 02:38 Dose: 4 mls/min Lactobacillus Acidophilus (Advanced Probiotic 625 Mg Capsule) 1,250 mg PO DAILY [facility] Stop: 09/14/23 11:14 Last Admin: 08/27/23 07:47 Dose: 1,250 mg Loperamide HCl (Loperamide Hcl 2 Mg Cap) 2 mg PO Q6H PRN PRN Reason: Diarrhea Stop: 09/17/23 16:16 Magnesium Oxide (Magnesium Oxide 400 Mg Tab) 400 mg PO BID [facility] Stop: 09/24/23 13:29 Last Admin: 08/27/23 07:48 Dose: 400 mg Metoprolol Succinate (Metoprolol Succ 50mg Ext Rel Tab) 100 mg PO BID [facility] Stop: 09/21/23 20:59 Last Admin: 08/27/23 07:48 Dose: 100 mg Metoprolol Tartrate (Metoprolol Tartrate 1 Mg/Ml Vial) 5 mg IV Q6 PRN PRN Reason: Tachycardia HR>110 Stop: 09/21/23 11:59 Last Admin: 08/26/23 12:27 Dose: 5 mg Miscellaneous Information (Vancomycin Consult Active) 1 each N/A UD PRN PRN Reason: Consult Stop: 09/12/23 16:09 Pantoprazole Sodium (Pantoprazole 40 Mg Tab) 40 mg PO DAILYBB [facility] [place] Stop: 09/12/23 06:29 Last Admin: 08/27/23 05:27 Dose: 40 mg Polyethylene Glycol (Polyethylene (Miralax) 17 Gm Pack) 17 gm PO DAILY PRN PRN Reason: Constipation Stop: 09/12/23 05:30 Potassium Phosphate (Pot Phosphate Monobasic W/ Sod Tab) 1 tab PO QID [facility] [place] Stop: 09/26/23 08:59 Last Admin: 08/27/23 08:37 Dose: 1 tab Prednisone (Prednisone 5 Mg Tab) 5 mg PO DAILY [facility] [place] Stop: 09/17/23 08:59 Last Admin: 08/27/23 07:47 Dose: 5 mg Rosuvastatin Calcium (Rosuvastatin Calcium 5 Mg Tab) 5 mg PO QAM [facility] Stop: 09/12/23 08:59 Last Admin: 08/27/23 07:48 Dose: 5 mg Sacubitril/Valsartan (Valsartan/Sacubitril 26/24mg Tab) 1 tab PO BID [facility] [place] Stop: 09/12/23 08:59 Last Admin: 08/23/23 07:45 Dose: 1 tab Sildenafil Citrate (Sildenafil Citrate 20 Mg Tablet) 40 mg PO HS [facility] Stop: 09/12/23 20:59 Last Admin: 08/26/23 20:18 Dose: 40 mg Sildenafil Citrate (Sildenafil Citrate 20 Mg Tablet) 20 mg PO BID@0730,1200 [facility] [place] Stop: 09/13/23 07:29 Last Admin: 08/27/23 07:48 Dose: 20 mg Spironolactone (Spironolactone 12.5 Mg Tab) 12.5 mg PO QAM [facility] [place] Stop: 09/12/23 08:59 Last Admin: 08/25/23 08:26 Dose: 12.5 mg Sulfasalazine (Sulfasalazine 500 Mg Tablet) 500 mg PO QAM [facility] [place] Stop: 09/12/23 08:59 Last Admin: 08/27/23 07:47 Dose: 500 mg Umeclidinium Harriet (Umeclidinium Harriet 62.5mcg/Blister 7 Puffs/Inhaler) 1 puffs INH QAM [facility] Stop: 09/12/23 08:59 Last Admin: 08/27/23 08:37 Dose: 1 puffs Vitamin D (Cholecalciferol 10 Mcg (400 Units) Tab) 10 mcg PO DAILY [facility] Stop: 09/12/23 08:59 Last Admin: 08/27/23 08:37 Dose: 10 mcg
[2023-08-27] MEDS: POTASSIUM CHLORIDE CRTAB 20 MEQ TABCR PO STA (14:09)
--- NOTE | 2023-08-27 14:34 | Cardiology Progress Note ---
Date of Service August 27, 2023 Assessment & Plan (1) Elevated troponin: (2) Chronic combined systolic and diastolic CHF (congestive heart failure): (3) PAD (peripheral artery disease): (4) Raynauds disease: (5) Permanent atrial fibrillation: Plan IMPRESSION: Medically complex 58 year old male who initially presented to [facility] due to AMS/for psyc evaluation. Patient carries a history of history of chronic combined diastolic and systolic CHF with right heart failure. On admission he was found to have a necrotic right great toe--he does have a known history of peripheral arterial disease and Raynaud's. In addition he carries a history of permanent atrial fibrillation--rate controlled on metoprolol and digoxin and anticoagulated with Eliquis. Due to right great toe osteomyelitis and gangrene patient ultimately underwent right hallux partial amputation with Dr. Somers on 08/22/2023. ID was consulted for recommendations of antibiotics. Patient is currently on IV vancomycin. Cardiology reconsulted due to hypotension and tachycardia. Patient appears markedly hypervolemic up about 18 pounds. Likely in the setting of high IV fluid intake. PLAN: Elevated troponin: Known nonobstructive CAD-- medically managed. Chronic elevation in HS troponin-- patient without chest pain or shortness of breath. EKG without ischemic changes. Low likelihood for ACS. -Continue ASA and statin as ordered. Chronic combined diastolic and systolic CHF + RHF: LVEF ~50% on most recent echo (improved). Dilated RV with reduced systolic function on prior -Patient remains hypervolemic on exam but is responding well to increased dose of IV Lasix. Should continue IV Lasix 40 mg twice daily--repeat blood work from this morning is pending. - Continue GDMT with metoprolol succinate as ordered. Will hold Entresto and spironolactone due to hypotension and allow for more aggressive diuresis. -Monitor renal function and electrolytes. Replace potassium for goal of 4.0 and mag of 2.0. -2 g sodium diet. 1500 cc fluid restriction. strict intake and output recording. Daily standing weights. CHF education. As noted in prior progress note by Dr. Allen-- Consider stress dose steroids with patient on chronic prednisone dosing question adrenal insufficiency if persistent hypotension and no signs of systemic infection found. PAD/Raynaud's: Osteomyelitis and gangrene of the right great toe status post partial amputation 08/22/2023 ID consulted for antibiotic recommendations -Continue ASA 81 mg daily and statin as ordered. -Repeat blood cultures pending. Permanent atrial fib: Asymptomatic. Borderline rate control. -Continue metoprolol and digoxin as ordered. As diuresis occurs rates will likely improve. -Continue Eliquis for stroke prevention Confusion/AMS: Patient having issues at home caring for himself. Poor historian. Admitted for mental health eval. -Will defer to primary service/Psyc for recommendations. 08/27/2023: Patient with interval improvement in volume status today. Aggressive diuresis over the last 24 hours. Nearly 3L output today. Weight down and back to near baseline. Mentation also improved compared to reports yesterday. Creatinine increased from 0.8 to 1.2 this morning. Potassium low at 3.3 and supplemented. Received morning IV furosemide. Hold additional IV furosemide today and tomorrow AM until labs reviewed and patient re-evaluated. Consider resuming oral furosemide and spironolactone in AM. Consider resuming entresto tomorrow. await labs and monitor BP. Repeat blood cultures are negative thus far. Case discussed with Dr. Valente I spent a total of 40 minutes on the date of service in preparation, delivery, and documentation of the care provided to this patient, excluding any time spent in the performance of separately billed services. Valentina Ceron PA-C Department of Cardiology, [facility] This chart was completed in part utilizing Speech Voice Recognition Software. Grammatical errors, random word insertions, pronoun errors, and incomplete sentences are an occasional consequence of this system due to software limitations, ambient noise, and hardware issues. Any formal questions or concerns about the content, text, or information contained within the body of this dictation should be directly addressed to the provider for clarification. Admission and Anticipated Discharge Date Admission Date: August 13, 2023 Supervising Physician Co-Signing Physician Notes Attending attestation: Case reviewed with the advanced practitioner. I have personally performed a history and physical examination on the patient. I have reviewed the advanced practitioner's documentation on the date of service referenced in note, and I agree with, and take responsibility for the plan of care. Diuretics currently on hold. Volume status improved. I agree with plan as outlined. I spent a total of 20 minutes coordinating, documenting, and providing care for this patient excluding time spent in the performance of separately billed services or time spent by another provider. Jamie Valenet, DO Subjective Patient resting in bed comfortably. Reports he feels much better today than yesterday. SOB improving. LE edema improving. No chest pain. No palpitations or tachypalpitations. No dizziness. BP improved Review of Systems Review of Systems: All systems reviewed & are unremarkable except as noted in HPI & below Physical Exam Constitutional: WD/WN, vitals as above + ill appearing; no acute distress Neck: normal visual inspection and trachea midline Respiratory: normal respiratory effort, lungs clear to auscultation no respiratory distress Auscultation: no rales, no rhonchi and no wheezes Cardiovascular: Rate/Rhythm: + irregularly irregular Heart Sounds: normal S1 and normal S2 Vessels: + JVD Extremities: + edema (+1 bilateral pitting lower extremity edema. right foot wrapped) Gastrointestinal (Abdomen): normal bowel sounds, soft, nontender, no hepatosplenomegaly Skin: no rashes, warm and dry Neurologic: PERRL, EOMI, accommodation nl, no face palsy, no dysarthria Psychiatric: Orientation: alert and oriented x 3 (forgetful) Results & Data Vital Signs (Past 12 Hours) Vital Signs Temp Pulse Pulse Resp BP BP Pulse Ox 08/27/23 11:32 36.6 C 88 18 121/64 94 08/27/23 10:33 78 08/27/23 10:09 08/27/23 07:33 36.4 C L 74 16 120/77 94 08/27/23 03:44 36.4 C L 84 16 125/82 92 O2 Del Method 08/27/23 11:32 Room Air 08/27/23 10:33 08/27/23 10:09 Room Air 08/27/23 07:33 Room Air 08/27/23 03:44 Room Air Laboratory Results CBC 08/27/23 Range/Units 08:33 WBC 10.77 (4.8-10.8) K/ul RBC 4.02 L (4.70-6.10) M/uL Hgb 11.4 L (14.0-18.0) g/dl Hct 35.3 L (42.0-52.0) % Plt Count 357 (130-400) K/uL Comprehensive Metabolic Panel 08/27/23 Range/Units 08:33 Sodium 139 (136-145) mmol/L Potassium 3.3 L (3.5-5.1) mmol/L Chloride 101 (98-107) mmol/L Carbon Dioxide 26 (21-32) mmol/L BUN 28 H (6-23) mg/dl Creatinine 1.22 D (0.6-1.4) mg/dl Glucose 152 H (70-99(Fasting)) mg/dl Calcium 9.0 (8.6-10.3) mg/dl Intake and Output 08/26/23 08/27/23 08/27/23 22:59 06:59 14:59 Intake Total 680 / 1930 1030 / 1930 340 / 340 Output Total 800 / 2950 Balance -120 / -1020 1030 / -1020 340 / 340 Intake: IV 630 / 1360 630 / 1360 100 / 100 Piperacillin/Tazobactam 4.5 gm 100 / 300 100 / 300 100 / 100 In Dextrose 5% Mini-B 100 ml @ 25 mls/hr IV Q8H [facility] Rx#: [id number] Vancomycin HCl 1,500 mg In 530 / 1060 530 / 1060 Sodium Chloride 0.9% 500 ml @ 200 mls/hr IV Q12H [facility] Rx#: [id number] Oral 50 / 570 400 / 570 240 / 240 Output: Urine 800 / 2950 Other: # Unmeasured Voids 1 Diagnostic Findings Telemetry reviewed: Atrial fibrillation with controlled rates ranging 60-100 bmp. Occ PVC Medications Administered Current Inpatient Medications Acetaminophen (Acetaminophen 325 Mg Tab) 650 mg PO Q4H PRN PRN Reason: Pain or Fever Stop: 09/12/23 05:30 Last Admin: 08/26/23 12:58 Dose: 650 mg Alendronate Sodium (Alendronate Sodium 70 Mg Tab) 70 mg PO Fr@0630 [facility] Stop: 09/16/23 06:29 Last Admin: 08/24/23 06:04 Dose: 70 mg Amoxicillin/Clavulanate Potassium (Amoxicillin/Clavulanate 875 Mg Tab) 1 tab PO BIDM [facility] Stop: 10/08/23 16:59 Apixaban (Apixaban 5 Mg Tablet) 5 mg PO BID [facility] Stop: 09/12/23 08:59 Last Admin: 08/27/23 07:49 Dose: 5 mg Aspirin (Aspirin 81 Mg Ectab) 81 mg PO QAM [facility] Stop: 09/12/23 08:59 Last Admin: 08/27/23 07:47 Dose: 81 mg Digoxin (Digoxin 0.125 Mg Tab) 0.125 mg PO DAILY@1600 [facility] Stop: 09/12/23 15:59 Last Admin: 08/26/23 15:57 Dose: 0.125 mg Doxycycline Hyclate (Doxycycline Hyclate 100 Mg Cap) 100 mg PO BID [facility] Stop: 10/08/23 20:59 Escitalopram Oxalate (Escitalopram Oxalate 10 Mg Tab) 10 mg PO QAM [facility] Stop: 09/14/23 08:59 Last Admin: 08/27/23 07:48 Dose: 10 mg Furosemide (Furosemide 40 Mg Tab) 40 mg PO QAM [facility] Stop: 09/20/23 08:59 Last Admin: 08/22/23 08:56 Dose: 40 mg Furosemide (Furosemide 40 Mg/4 Ml Vial) 40 mg IV BID17 [facility] Stop: 09/25/23 08:59 Last Admin: 08/27/23 07:48 Dose: 40 mg Guaifenesin (Guaifenesin 600 Mg Tabcr) 600 mg PO Q12 [facility] Stop: 09/24/23 10:29 Last Admin: 08/27/23 07:48 Dose: 600 mg Heparin Sodium (Porcine) (Heparin Sod 5,000 Unit/0.5 Ml Vial) 5,000 units SQ Q12 [facility] Stop: 09/20/23 20:59 Last Admin: 08/25/23 08:28 Dose: 5,000 units Hydromorphone HCl (Hydromorphone Inj 0.5 Mg/0.5 Ml Syr) 0.5 mg IV Q6H PRN PRN Reason: Pain Stop: 09/06/23 09:54 Last Admin: 08/27/23 11:44 Dose: 0.5 mg Hydrocortisone Sodium (Succinate 50 mg/ Syringe) 1 mls @ 4 mls/min IV Q8H [facility] Stop: 09/24/23 18:59 Last Admin: 08/27/23 11:39 Dose: 4 mls/min Lactobacillus Acidophilus (Advanced Probiotic 625 Mg Capsule) 1,250 mg PO DAILY [facility] Stop: 09/14/23 11:14 Last Admin: 08/27/23 07:47 Dose: 1,250 mg Loperamide HCl (Loperamide Hcl 2 Mg Cap) 2 mg PO Q6H PRN PRN Reason: Diarrhea Stop: 09/17/23 16:16 Magnesium Oxide (Magnesium Oxide 400 Mg Tab) 400 mg PO BID [facility] Stop: 09/24/23 13:29 Last Admin: 08/27/23 07:48 Dose: 400 mg Metoprolol Succinate (Metoprolol Succ 50mg Ext Rel Tab) 100 mg PO BID [facility] Stop: 09/21/23 20:59 Last Admin: 08/27/23 07:48 Dose: 100 mg Metoprolol Tartrate (Metoprolol Tartrate 1 Mg/Ml Vial) 5 mg IV Q6 PRN PRN Reason: Tachycardia HR>110 Stop: 09/21/23 11:59 Last Admin: 08/26/23 12:27 Dose: 5 mg Pantoprazole Sodium (Pantoprazole 40 Mg Tab) 40 mg PO DAILYBB [facility] Stop: 09/12/23 06:29 Last Admin: 08/27/23 05:27 Dose: 40 mg Polyethylene Glycol (Polyethylene (Miralax) 17 Gm Pack) 17 gm PO DAILY PRN PRN Reason: Constipation Stop: 09/12/23 05:30 Potassium Phosphate (Pot Phosphate Monobasic W/ Sod Tab) 1 tab PO QID [facility] Stop: 09/26/23 08:59 Last Admin: 08/27/23 11:40 Dose: 1 tab Prednisone (Prednisone 5 Mg Tab) 5 mg PO DAILY [facility] Stop: 09/17/23 08:59 Last Admin: 08/27/23 07:47 Dose: 5 mg Rosuvastatin Calcium (Rosuvastatin Calcium 5 Mg Tab) 5 mg PO QAM [facility] Stop: 09/12/23 08:59 Last Admin: 08/27/23 07:48 Dose: 5 mg Sacubitril/Valsartan (Valsartan/Sacubitril 26/24mg Tab) 1 tab PO BID [facility] Stop: 09/12/23 08:59 Last Admin: 08/23/23 07:45 Dose: 1 tab Sildenafil Citrate (Sildenafil Citrate 20 Mg Tablet) 40 mg PO HS [facility] Stop: 09/12/23 20:59 Last Admin: 08/26/23 20:18 Dose: 40 mg Sildenafil Citrate (Sildenafil Citrate 20 Mg Tablet) 20 mg PO BID@0730,1200 [facility] Stop: 09/13/23 07:29 Last Admin: 08/27/23 11:40 Dose: 20 mg Spironolactone (Spironolactone 12.5 Mg Tab) 12.5 mg PO QAM [facility] Stop: 09/12/23 08:59 Last Admin: 08/25/23 08:26 Dose: 12.5 mg Sulfasalazine (Sulfasalazine 500 Mg Tablet) 500 mg PO QAM [facility] Stop: 09/12/23 08:59 Last Admin: 08/27/23 07:47 Dose: 500 mg Umeclidinium [place] (Umeclidinium [place] 62.5mcg/Blister 7 Puffs/Inhaler) 1 puffs INH QAM [facility] Stop: 09/12/23 08:59 Last Admin: 08/27/23 08:37 Dose: 1 puffs Vitamin D (Cholecalciferol 10 Mcg (400 Units) Tab) 10 mcg PO DAILY [facility] Stop: 09/12/23 08:59 Last Admin: 08/27/23 08:37 Dose: 10 mcg
[2023-08-27] MEDS: AMOXICILLIN/CLAVULANATE 875 MG TAB PO SCH (16:29)
[2023-08-27] MEDS: oxyCODONE HCL IR 5 MG TAB (IMMEDIATE RELEASE) PO PRN (17:15)
[2023-08-27] MEDS: DOXYCYCLINE HYCLATE 100 MG CAP PO SCH (20:57)
--- NOTE | 2023-08-28 07:13 | Electrocardiogram Report ---
Test Reason : Blood Pressure : / mmHG Vent. Rate : 108 BPM Atrial Rate : 129 BPM P-R Int : 000 ms QRS Dur : 086 ms QT Int : 352 ms P-R-T Axes : 000 097 114 degrees QTc Int : 471 ms Atrial fibrillation with rapid ventricular response Rightward axis Low voltage QRS Nonspecific ST and T wave abnormality Abnormal ECG When compared with ECG of 19-AUG-2023 10:32, Atrial fibrillation has replaced Sinus rhythm Nonspecific T wave abnormality no longer evident in Anterior leads Confirmed by Evan Obrien ([id number]) on 08/28/2023 7:13:18 AM Referred By: REFERRED SELF Confirmed By:Evan Obrien
[2023-08-28 08:30] LABS: Hematocrit (blood only) 33.4 % (42.0-52.0); Hemoglobin 10.9 g/dl (14.0-18.0); Mean Corpuscular Hemoglobin 28.2 pg (25.0-34.0); Mean Corpuscular Hgb Conc 32.6 g/dL (32.0-36.0); Mean Corpuscular Volume 86.5 fL (80.0-100.0); Platelet Count 358 K/uL (130-400); RDW Coefficient of Variation 17.2 % (11.5-14.5); Red Blood Count 3.86 M/uL (4.70-6.10); White Blood Count 8.68 K/ul (4.8-10.8)
[2023-08-28 09:18] LABS: BUN Creatinine Ratio 29.8 (10-20); Calcium 8.7 mg/dl (8.6-10.3); Creatinine Clr Calc Pharmacy 101.8 ml/min; Est GFR (African American) 102.4 ml/min; Est GFR (Non-African American) 88.4 ml/min; Phosphorus 2.9 mg/dl (2.5-4.9); Potassium 3.6 mmol/L (3.5-5.1)
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
[2023-08-28] MEDS: HYDROCORTISONE SOD 50 MG in SYRINGE 0 ML IV SCH (13:11)
--- NOTE | 2023-08-28 13:31 | Cardiology Progress Note ---
Date of Service August 28, 2023 Assessment & Plan (1) Elevated troponin: (2) Chronic combined systolic and diastolic CHF (congestive heart failure): (3) PAD (peripheral artery disease): (4) Raynauds disease: (5) Permanent atrial fibrillation: Plan IMPRESSION: Medically complex 58 year old male who initially presented to [facility] due to AMS/for psyc evaluation. Patient carries a history of history of chronic combined diastolic and systolic CHF with right heart failure. On admission he was found to have a necrotic right great toe--he does have a known history of peripheral arterial disease and Raynaud's. In addition he carries a history of permanent atrial fibrillation--rate controlled on metoprolol and digoxin and anticoagulated with Eliquis. Due to right great toe osteomyelitis and gangrene patient ultimately underwent right hallux partial amputation with Dr. Somers on 08/22/2023. ID was consulted for recommendations of antibiotics. Patient is currently on IV vancomycin. Cardiology reconsulted due to hypotension and tachycardia. Patient appears markedly hypervolemic up about 18 pounds. Likely in the setting of high IV fluid intake. PLAN: Elevated troponin: Known nonobstructive CAD-- medically managed. Chronic elevation in HS troponin-- patient without chest pain or shortness of breath. EKG without ischemic changes. Low likelihood for ACS. -Continue ASA and statin as ordered. Chronic combined diastolic and systolic CHF + RHF: LVEF ~50% on most recent echo (improved). Dilated RV with reduced systolic function on prior -Patient remains hypervolemic on exam but is responding well to increased dose of IV Lasix. Should continue IV Lasix 40 mg twice daily--repeat blood work from this morning is pending. - Continue GDMT with metoprolol succinate as ordered. Will hold Entresto and spironolactone due to hypotension and allow for more aggressive diuresis. -Monitor renal function and electrolytes. Replace potassium for goal of 4.0 and mag of 2.0. -2 g sodium diet. 1500 cc fluid restriction. strict intake and output recording. Daily standing weights. CHF education. As noted in prior progress note by Dr. Allen-- Consider stress dose steroids with patient on chronic prednisone dosing question adrenal insufficiency if persistent hypotension and no signs of systemic infection found. PAD/Raynaud's: Osteomyelitis and gangrene of the right great toe status post partial amputation 08/22/2023 ID consulted for antibiotic recommendations -Continue ASA 81 mg daily and statin as ordered. -Repeat blood cultures pending. Permanent atrial fib: Asymptomatic. Borderline rate control. -Continue metoprolol and digoxin as ordered. As diuresis occurs rates will likely improve. -Continue Eliquis for stroke prevention Confusion/AMS: Patient having issues at home caring for himself. Poor historian. Admitted for mental health eval. -Will defer to primary service/Psyc for recommendations. 08/27/2023: Patient with interval improvement in volume status today. Aggressive diuresis over the last 24 hours. Nearly 3L output today. Weight down and back to near baseline. Mentation also improved compared to reports yesterday. Creatinine increased from 0.8 to 1.2 this morning. Potassium low at 3.3 and supplemented. Received morning IV furosemide. Hold additional IV furosemide today and tomorrow AM until labs reviewed and patient re-evaluated. Consider resuming oral furosemide and spironolactone in AM. Consider resuming entresto tomorrow. await labs and monitor BP. Repeat blood cultures are negative thus far. 08/28/23: Stable cardiac symptoms. Volume status improved. Creatinine improved from 1.2 to 0.9 this morning. Potassium borderline low. Resume furosemide 40 mg daily (home dose) with spironolactone 12.5 mg daily this afternoon. Continue metoprolol and digoxin for ongoing rate control of atrial fibrillation. Continue Eliquis for stroke prophylaxis. Entresto remains on hold. Anticipate resuming tomorrow. Monitor renal function/electrolytes Blood cultures remain negative. Case discussed with Dr. Valente I spent a total of 40 minutes on the date of service in preparation, delivery, and documentation of the care provided to this patient, excluding any time spent in the performance of separately billed services. Valentina Ceron PA-C Department of Cardiology, [facility] This chart was completed in part utilizing Speech Voice Recognition Software. Grammatical errors, random word insertions, pronoun errors, and incomplete sentences are an occasional consequence of this system due to software limitations, ambient noise, and hardware issues. Any formal questions or concerns about the content, text, or information contained within the body of this dictation should be directly addressed to the provider for clarification. Admission and Anticipated Discharge Date Admission Date: August 13, 2023 Supervising Physician Co-Signing Physician Notes Attending attestation: Case reviewed with the advanced practitioner. I have personally performed a history and physical examination on the patient. I have reviewed the advanced practitioner's documentation on the date of service referenced in note, and I agree with, and take responsibility for the plan of care. I spent a total of 20 minutes coordinating, documenting, and providing care for this patient excluding time spent in the performance of separately billed services or time spent by another provider. Jamie Valente, DO Subjective Patient resting in bed feeling well. He denies shortness of breath. Volume status improved. No chest pain. No sense of palpitations or tachypalpitations. Mild lower extremity edema remains but improved from earlier this week. Review of Systems Review of Systems: All systems reviewed & are unremarkable except as noted in HPI & below Physical Exam Constitutional: WD/WN, vitals as above no acute distress Neck: normal visual inspection and trachea midline Respiratory: normal respiratory effort, lungs clear to auscultation no respiratory distress Auscultation: no rales, no rhonchi and no wheezes Cardiovascular: Rate/Rhythm: + irregularly irregular Heart Sounds: normal S1 and normal S2 Extremities: + edema (+1 bilateral pitting lower extremity edema. right foot wrapped) Gastrointestinal (Abdomen): normal bowel sounds, soft, nontender, no hepatosplenomegaly Skin: no rashes, warm and dry Neurologic: PERRL, EOMI, accommodation nl, no face palsy, no dysarthria Psychiatric: Orientation: alert and oriented x 3 (forgetful) Results & Data Vital Signs (Past 12 Hours) Vital Signs Temp Pulse Pulse Resp BP Pulse Ox O2 Del Method 08/28/23 11:38 36.5 C 97 H 16 144/74 H 94 Room Air 08/28/23 09:20 Room Air 08/28/23 09:20 84 08/28/23 07:46 36.7 C 58 L 18 148/85 H 93 Room Air 08/28/23 07:15 83 Laboratory Results CBC 08/28/23 Range/Units 07:46 WBC 8.68 (4.8-10.8) K/ul RBC 3.86 L (4.70-6.10) M/uL Hgb 10.9 L (14.0-18.0) g/dl Hct 33.4 L (42.0-52.0) % Plt Count 358 (130-400) K/uL Comprehensive Metabolic Panel 08/28/23 Range/Units 07:46 Sodium 140 (136-145) mmol/L Potassium 3.6 (3.5-5.1) mmol/L Chloride 103 (98-107) mmol/L Carbon Dioxide 31 (21-32) mmol/L BUN 28 H (6-23) mg/dl Creatinine 0.94 (0.6-1.4) mg/dl Glucose 110 H (70-99(Fasting)) mg/dl Calcium 8.7 (8.6-10.3) mg/dl Intake and Output 08/27/23 08/28/23 08/28/23 22:59 06:59 14:59 Intake Total 220 / 660 100 / 660 Balance 220 / 660 100 / 660 Intake: Oral 220 / 560 100 / 560 Other: Weight 106.6 kg Weight Measurement Method Built in [facility] Diagnostic Findings Telemetry reviewed: Atrial fibrillation with heart rates ranging 80s to 110s. Medications Administered Current Inpatient Medications Acetaminophen (Acetaminophen 325 Mg Tab) 650 mg PO Q4H PRN PRN Reason: Pain or Fever Stop: 09/12/23 05:30 Last Admin: 08/26/23 12:58 Dose: 650 mg Alendronate Sodium (Alendronate Sodium 70 Mg Tab) 70 mg PO Fr@0630 [facility] Stop: 09/16/23 06:29 Last Admin: 08/24/23 06:04 Dose: 70 mg Amoxicillin/Clavulanate Potassium (Amoxicillin/Clavulanate 875 Mg Tab) 1 tab PO BIDM [facility] Stop: 10/08/23 16:59 Last Admin: 08/28/23 09:24 Dose: 1 tab Apixaban (Apixaban 5 Mg Tablet) 5 mg PO BID [facility] Stop: 09/12/23 08:59 Last Admin: 08/28/23 09:25 Dose: 5 mg Aspirin (Aspirin 81 Mg Ectab) 81 mg PO QAM [facility] Stop: 09/12/23 08:59 Last Admin: 08/28/23 09:24 Dose: 81 mg Digoxin (Digoxin 0.125 Mg Tab) 0.125 mg PO DAILY@1600 [facility] Stop: 09/12/23 15:59 Last Admin: 08/27/23 16:28 Dose: 0.125 mg Doxycycline Hyclate (Doxycycline Hyclate 100 Mg Cap) 100 mg PO BID [facility] Stop: 10/08/23 20:59 Last Admin: 08/28/23 09:25 Dose: 100 mg Escitalopram Oxalate (Escitalopram Oxalate 10 Mg Tab) 10 mg PO QAM [facility] Stop: 09/14/23 08:59 Last Admin: 08/28/23 09:24 Dose: 10 mg Furosemide (Furosemide 40 Mg Tab) 40 mg PO QAM [facility] Stop: 09/20/23 08:59 Last Admin: 08/22/23 08:56 Dose: 40 mg Guaifenesin (Guaifenesin 600 Mg Tabcr) 600 mg PO Q12 [facility] Stop: 09/24/23 10:29 Last Admin: 08/28/23 09:25 Dose: 600 mg Heparin Sodium (Porcine) (Heparin Sod 5,000 Unit/0.5 Ml Vial) 5,000 units SQ Q12 [facility] Stop: 09/20/23 20:59 Last Admin: 08/25/23 08:28 Dose: 5,000 units Hydromorphone HCl (Hydromorphone Inj 0.5 Mg/0.5 Ml Syr) 0.5 mg IV Q6H PRN PRN Reason: Pain Stop: 09/06/23 09:54 Last Admin: 08/28/23 05:46 Dose: 0.5 mg Hydrocortisone Sodium (Succinate 50 mg/ Syringe) 1 mls @ 4 mls/min IV Q12H [facility] Stop: 09/27/23 13:59 Last Admin: 08/28/23 13:11 Dose: 4 mls/min Lactobacillus Acidophilus (Advanced Probiotic 625 Mg Capsule) 1,250 mg PO DAILY [facility] Stop: 09/14/23 11:14 Last Admin: 08/28/23 09:24 Dose: 1,250 mg Loperamide HCl (Loperamide Hcl 2 Mg Cap) 2 mg PO Q6H PRN PRN Reason: Diarrhea Stop: 09/17/23 16:16 Magnesium Oxide (Magnesium Oxide 400 Mg Tab) 400 mg PO BID [facility] Stop: 09/24/23 13:29 Last Admin: 08/28/23 09:25 Dose: 400 mg Metoprolol Succinate (Metoprolol Succ 50mg Ext Rel Tab) 100 mg PO BID [facility] Stop: 09/21/23 20:59 Last Admin: 08/28/23 09:25 Dose: 100 mg Metoprolol Tartrate (Metoprolol Tartrate 1 Mg/Ml Vial) 5 mg IV Q6 PRN PRN Reason: Tachycardia HR>110 Stop: 09/21/23 11:59 Last Admin: 08/26/23 12:27 Dose: 5 mg Oxycodone HCl (Oxycodone Hcl Ir 5 Mg Tab (Immediate Release)) 5 mg PO Q6H PRN PRN Reason: Pain Stop: 09/10/23 16:58 Last Admin: 08/28/23 09:26 Dose: 5 mg Pantoprazole Sodium (Pantoprazole 40 Mg Tab) 40 mg PO DAILYBB [facility] Stop: 09/12/23 06:29 Last Admin: 08/28/23 05:45 Dose: 40 mg Polyethylene Glycol (Polyethylene (Miralax) 17 Gm Pack) 17 gm PO DAILY PRN PRN Reason: Constipation Stop: 09/12/23 05:30 Potassium Phosphate (Pot Phosphate Monobasic W/ Sod Tab) 1 tab PO QID [facility] Stop: 09/26/23 08:59 Last Admin: 08/28/23 13:10 Dose: 1 tab Prednisone (Prednisone 5 Mg Tab) 5 mg PO DAILY [facility] Stop: 09/17/23 08:59 Last Admin: 08/28/23 09:24 Dose: 5 mg Rosuvastatin Calcium (Rosuvastatin Calcium 5 Mg Tab) 5 mg PO QAM [facility] Stop: 09/12/23 08:59 Last Admin: 08/28/23 09:24 Dose: 5 mg Sacubitril/Valsartan (Valsartan/Sacubitril 26/24mg Tab) 1 tab PO BID [facility] Stop: 09/12/23 08:59 Last Admin: 08/23/23 07:45 Dose: 1 tab Sildenafil Citrate (Sildenafil Citrate 20 Mg Tablet) 40 mg PO HS [facility] Stop: 09/12/23 20:59 Last Admin: 08/27/23 20:57 Dose: 40 mg Sildenafil Citrate (Sildenafil Citrate 20 Mg Tablet) 20 mg PO BID@0730,1200 [facility] Stop: 09/13/23 07:29 Last Admin: 08/28/23 13:10 Dose: 20 mg Spironolactone (Spironolactone 12.5 Mg Tab) 12.5 mg PO DAILY [facility] Stop: 09/27/23 13:29 Sulfasalazine (Sulfasalazine 500 Mg Tablet) 500 mg PO QAM [facility] Stop: 09/12/23 08:59 Last Admin: 08/28/23 09:25 Dose: 500 mg Umeclidinium [place] (Umeclidinium [place] 62.5mcg/Blister 7 Puffs/Inhaler) 1 puffs INH QAM [facility] Stop: 09/12/23 08:59 Last Admin: 08/28/23 10:48 Dose: 1 puffs Vitamin D (Cholecalciferol 10 Mcg (400 Units) Tab) 10 mcg PO DAILY [facility] Stop: 09/12/23 08:59 Last Admin: 08/28/23 09:24 Dose: 10 mcg
--- NOTE | 2023-08-28 13:49 | Communication Note ---
Date of Service: August 28, 2023 Today I met with the patient, met with the nurse, and discussed the case with Dr. Hoyos. It sounds like the patient had a decent day and slept through the night. His girlfriend is still contacting the nursing staff and wanting information, but the patient has refused to release information. Today, he looks good and shaved. He was clean. He says he is feeling physically better. He has concerns that his girlfriend is going to somehow try to take custody of their child away from him. I confronted him with what he can do to really help the situation. I explained that lots of people talk about things, but when it comes to a custody situation, its actions that really matter. I reminded the patient that he had been not taking care of himself very well which led to his hospitalization. I explained that he needs to demonstrate that he is trying hard to be better and to feel better so that he is in a better position to care for his son. I explained that it would be important to follow through on his physicians recommendations such as going to this rehab if it is recommended to help build up his strength and health. He appeared to take me very seriously. He is denying any suicidal ideation. He still seems goal-directed. I still do not believe he requires inpatient psychiatric hospitalization.
[2023-08-28] MEDS: SPIRONOLACTONE 12.5 MG TAB PO SCH (16:37)
--- NOTE | 2023-08-28 17:16 | Orthopedic Progress Note ---
Date of Service August 28, 2023 Assessment & Plan (1) PAD (peripheral artery disease): (2) Open wound of right great toe with damage to nail: (3) Toe pain, right: Plan - patient examined and evaluated. - he is doing well approximately 1 week status post right partial hallux and rotation. There are no new concerns. - From a foot and ankle perspective, he can be discharged home and follow-up next week outpatient. He should keep his dressing clean, dry, and intact until then. - Foot was cleaned and redressed with xeroform, 4x4 gauze, kerlix, and pauly wrap - He would still likely benefit from 2 weeks of oral antibiotics on discharge. - We will plan on seeing him next week to examine the foot in the office for suture removal - He should call the office sooner than later if he develops any other concerns. Otherwise, this toe is likely to heal uneventfully. Admission and Anticipated Discharge Date Admission Date: August 13, 2023 Subjective Pt seen at bedside. No new concerns with the foot. Has been ambulating well in surgical shoe with decreasing pain. Notes his swelling has improved over the last couple of days with lasix. He denies any new signs of infection. Review of Systems Constitutional: no fever and no chills Eyes: no problem reported Ear, Nose, Mouth, Throat: no ear pain and no nasal congestion Respiratory: no cough, no chest congestion and no wheezing Cardiovascular: no chest pain, no edema and no calf pain Gastrointestinal: no abdominal pain, no nausea and no vomiting Genitourinary: no problem reported Musculoskeletal: + stiffness; no joint pain and no proble m reported Integumentary: + new lesions, + non-healing lesions, + changing lesions and + dry skin Neurologic: + generalized weakness, + loss of sensat ion, + numbness and + paresthesia Psychiatric: + behavioral changes, + depression and + hallucinations; no suicidal ideation Endocrine: no problem reported Physical Exam Physical Exam: Surgical dressing is clean, dry, and intact with no loosening or bleeding to the toe. Sutures are intact with local inflammation, consistent with level of surgical intervention. No evidence of continued infection; no purulent drainage, no cellulitis, no active bleeding, no malodor. CFT is brisk to the digit. Constitutional: WD/WN, vitals as above + disheveled Eyes: PERRL, conjunctivae normal, anicteric sclerae ENMT: external ear and nose normal, oropharynx normal Neck: trachea midline, no thyromegaly Respiratory: normal respiratory effort, lungs clear to auscultation normal respiratory effort; no respiratory distress Cardiovascular: RRR, no murmur, no edema Vessels: posterior tibial pulses present and dorsalis pedis pulses present Extremities: normal capillary refill Gastrointestinal (Abdomen): normal bowel sounds, soft, nontender, no hepatosplenomegaly Inspection/Auscultation: abdomen not distended Percussion/Palpation: no guarding Musculoskeletal: no cyanosis or clubbing, extremities motor strength 5/5 Head/Neck/Chest: normocephalic and head atraumatic Extremities: + limited ROM of extremities Skin: no rashes, warm and dry + lesion, + ulcer and + wound Neurologic: patellar DTR's 2+ bilat, sensation intact and PERRL, EOMI, accommodation nl, no face palsy, no dysarthria Psychiatric: A+Ox3, euthymic affect Results & Data Vital Signs (Past 12 Hours) Vital Signs Temp Pulse Pulse Resp BP Pulse Ox O2 Del Method 08/28/23 16:37 84 08/28/23 15:38 79 08/28/23 15:30 36.5 C 80 16 143/90 H 96 Room Air 08/28/23 11:38 36.5 C 97 H 16 144/74 H 94 Room Air 08/28/23 09:20 Room Air 08/28/23 09:20 84 08/28/23 07:46 36.7 C 58 L 18 148/85 H 93 Room Air 08/28/23 07:15 83 (2) Open wound of right great toe with damage to nail Encounter type: initial encounter Qualified Code(s): S91.201A - Unspecified open wound of right great toe with damage to nail, initial encounter
[2023-08-29 10:22] LABS: BUN Creatinine Ratio 29.3 (10-20); Calcium 8.9 mg/dl (8.6-10.3); Creatinine Clr Calc Pharmacy 103.8 ml/min; Est GFR (African American) 105.1 ml/min; Est GFR (Non-African American) 90.7 ml/min; Potassium 3.7 mmol/L (3.5-5.1)
[2023-08-29] MEDS: HYDROCORTISONE SOD 25 MG in SYRINGE 0 ML IV SCH (12:12)
--- NOTE | 2023-08-29 13:02 | Cardiology Progress Note ---
Date of Service August 29, 2023 Assessment & Plan (1) Elevated troponin: (2) Chronic combined systolic and diastolic CHF (congestive heart failure): (3) PAD (peripheral artery disease): (4) Raynauds disease: (5) Permanent atrial fibrillation: Plan IMPRESSION: Medically complex 58 year old male who initially presented to [facility] due to AMS/for psyc evaluation. Patient carries a history of history of chronic combined diastolic and systolic CHF with right heart failure. On admission he was found to have a necrotic right great toe--he does have a known history of peripheral arterial disease and Raynaud's. In addition he carries a history of permanent atrial fibrillation--rate controlled on metoprolol and digoxin and anticoagulated with Eliquis. Due to right great toe osteomyelitis and gangrene patient ultimately underwent right hallux partial amputation with Dr. Somers on 08/22/2023. ID was consulted for recommendations of antibiotics. Patient is currently on oral doxycycline and oral documented. PLAN: Elevated troponin: Known nonobstructive CAD-- medically managed. Chronic elevation in HS troponin-- patient without chest pain or shortness of breath. EKG without ischemic changes. Low likelihood for ACS. -Continue ASA and statin as ordered. Chronic combined diastolic and systolic CHF + RHF: LVEF ~50% on most recent echo (improved). Dilated RV with reduced systolic function on prior -Patient remains hypervolemic on exam but is responding well to increased dose of IV Lasix. Should continue IV Lasix 40 mg twice daily--repeat blood work from this morning is pending. - Continue GDMT with metoprolol succinate as ordered. Will hold Entresto and spironolactone due to hypotension and allow for more aggressive diuresis. -Monitor renal function and electrolytes. Replace potassium for goal of 4.0 and mag of 2.0. -2 g sodium diet. 1500 cc fluid restriction. strict intake and output recording. Daily standing weights. CHF education. As noted in prior progress note by Dr. Allen-- Consider stress dose steroids with patient on chronic prednisone dosing question adrenal insufficiency if persistent hypotension and no signs of systemic infection found. PAD/Raynaud's: Osteomyelitis and gangrene of the right great toe status post partial amputation 08/22/2023 ID consulted for antibiotic recommendations -Continue ASA 81 mg daily and statin as ordered. -Repeat blood cultures negative. Permanent atrial fib: Asymptomatic. Borderline rate control. -Continue metoprolol and digoxin as ordered. As diuresis occurs rates will likely improve. -Continue Eliquis for stroke prevention Confusion/AMS: Patient having issues at home caring for himself. Poor historian. Admitted for mental health eval. -Will defer to primary service for recommendations. 08/29/23: Patient reported increased shortness of breath, orthopnea, and lower extremity swelling. Will give IV Lasix 40 mg ONCE with Potassium 40 meq ONCE. BMP reviewed. K 3.7 (goal K> 4.0). Creatinine remains WNL at 0.92. Continue INPATIENT CODER Lasix 40 mg daily with Spironolactone 12.5 mg daily. Consider increasing to 25 mg tomorrow. Resumed Entresto this morning. Continue metoprolol and digoxin for ongoing rate control of atrial fibrillation. Continue Eliquis for stroke prophylaxis. Fluid restriction of no more than 2L per day. Sodium restriction of 2 gm/day. Monitor kidney function/electrolytes closely. Recommend K > 4.0 and Mag > 2.0. Accurate I&O and daily weights. Blood cultures: NO growth to date. Patient remains on stress dose steroids with hydrocortisone, due to his hypertensive response postoperatively and underlying immunosuppression. May be time to wean this treatment. Case discussed with Dr. Valente I spent a total of 40 minutes on the date of service in preparation, delivery, and documentation of the care provided to this patient, excluding any time spent in the performance of separately billed services. PATRICK Clay Department of Cardiology, [facility] This chart was completed in part utilizing Speech Voice Recognition Software. Grammatical errors, random word insertions, pronoun errors, and incomplete sentences are an occasional consequence of this system due to software limitations, ambient noise, and hardware issues. Any formal questions or concerns about the content, text, or information contained within the body of this dictation should be directly addressed to the provider for clarification. Admission and Anticipated Discharge Date Admission Date: August 13, 2023 Supervising Physician Co-Signing Physician Notes Attending attestation: Case reviewed with the advanced practitioner. I have personally performed a history and physical examination on the patient. I have reviewed the advanced practitioner's documentation on the date of service referenced in note, and I agree with, and take responsibility for the plan of care. I spent a total of 20 minutes coordinating, documenting, and providing care for this patient excluding time spent in the performance of separately billed services or time spent by another provider. Jamie Valente, Subjective Patient is resting in bed this morning. Notes some increased shortness of breath with orthopnea overnight. Reports some lower extremity swelling as well. Review of Systems Review of Systems: All systems reviewed & are unremarkable except as noted in HPI & below Physical Exam Constitutional: WD/WN, vitals as above no acute distress Eyes: PERRL, conjunctivae normal, anicteric sclerae Neck: normal visual inspection and trachea midline Respiratory: normal respiratory effort, lungs clear to auscultation no respiratory distress Auscultation: + rales (faint rales b/l lower lobes); no rhonchi and no wheezes Cardiovascular: Rate/Rhythm: regular rate and + irregularly irregular Heart Sounds: normal S1 and normal S2 Vessels: + JVD Extremities: + edema (+1 bilateral pitting lower extremity edema. right foot wrapped) Gastrointestinal (Abdomen): normal bowel sounds, soft, nontender, no hepatosplenomegaly Inspection/Auscultation: + abdomen distended Skin: no rashes, warm and dry Neurologic: PERRL, EOMI, accommodation nl, no face palsy, no dysarthria Psychiatric: Orientation: alert and oriented x 3 (forgetful) Results & Data Vital Signs (Past 12 Hours) Vital Signs Temp Pulse Pulse Resp BP Pulse Ox O2 Del Method 08/29/23 11:20 36.8 C 90 16 148/86 H 93 Room Air 08/29/23 09:48 89 08/29/23 09:43 Room Air 08/29/23 07:35 36.4 C L 88 15 150/82 H 94 Room Air Laboratory Results Comprehensive Metabolic Panel 08/29/23 Range/Units 09:30 Sodium 138 (136-145) mmol/L Potassium 3.7 (3.5-5.1) mmol/L Chloride 101 (98-107) mmol/L Carbon Dioxide 31 (21-32) mmol/L BUN 27 H (6-23) mg/dl Creatinine 0.92 (0.6-1.4) mg/dl Glucose 168 H (70-99(Fasting)) mg/dl Calcium 8.9 (8.6-10.3) mg/dl Intake and Output 08/28/23 08/29/23 08/29/23 22:59 06:59 14:59 Intake Total 240 / 820 100 / 820 240 / 240 Output Total 300 / 300 452 / 452 Balance 240 / 520 -200 / 520 -212 / -212 Intake: Oral 240 / 820 100 / 820 240 / 240 Output: Urine 300 / 300 450 / 450 # Bowel Movements 2 / 2 Other: # Unmeasured Voids 1 Weight 106.6 kg 106.1 kg Weight Measurement Method Built in [facility] Diagnostic Findings Telemetry reviewed: AFIB 90-110 bpm. Medications Administered Current Inpatient Medications Acetaminophen (Acetaminophen 325 Mg Tab) 650 mg PO Q4H PRN PRN Reason: Pain or Fever Stop: 09/12/23 05:30 Last Admin: 08/26/23 12:58 Dose: 650 mg Alendronate Sodium (Alendronate Sodium 70 Mg Tab) 70 mg PO Fr@0630 [facility] Stop: 09/16/23 06:29 Last Admin: 08/24/23 06:04 Dose: 70 mg Amoxicillin/Clavulanate Potassium (Amoxicillin/Clavulanate 875 Mg Tab) 1 tab PO BIDM [facility] Stop: 10/08/23 16:59 Last Admin: 08/29/23 08:14 Dose: 1 tab Apixaban (Apixaban 5 Mg Tablet) 5 mg PO BID [facility] Stop: 09/12/23 08:59 Last Admin: 08/29/23 08:18 Dose: 5 mg Aspirin (Aspirin 81 Mg Ectab) 81 mg PO QAM [facility] Stop: 09/12/23 08:59 Last Admin: 08/29/23 08:14 Dose: 81 mg Digoxin (Digoxin 0.125 Mg Tab) 0.125 mg PO DAILY@1600 [facility] Stop: 09/12/23 15:59 Last Admin: 08/28/23 16:37 Dose: 0.125 mg Doxycycline Hyclate (Doxycycline Hyclate 100 Mg Cap) 100 mg PO BID [facility] Stop: 10/08/23 20:59 Last Admin: 08/29/23 08:17 Dose: 100 mg Escitalopram Oxalate (Escitalopram Oxalate 10 Mg Tab) 10 mg PO QAM [facility] Stop: 09/14/23 08:59 Last Admin: 08/29/23 08:13 Dose: 10 mg Furosemide (Furosemide 40 Mg Tab) [facility] Stop: 09/20/23 08:59 Last Admin: 08/29/23 08:15 Dose: 40 mg Guaifenesin (Guaifenesin 600 Mg Tabcr) 600 mg PO Q12 [facility] Stop: 09/24/23 10:29 Last Admin: 08/29/23 08:17 Dose: 600 mg Heparin Sodium (Porcine) (Heparin Sod 5,000 Unit/0.5 Ml Vial) 5,000 units SQ Q12 [facility] Stop: 09/20/23 20:59 Last Admin: 08/25/23 08:28 Dose: 5,000 units Hydromorphone HCl (Hydromorphone Inj 0.5 Mg/0.5 Ml Syr) 0.5 mg IV Q6H PRN PRN Reason: Pain Stop: 09/06/23 09:54 Last Admin: 08/29/23 11:05 Dose: 0.5 mg Hydrocortisone Sodium (Succinate 25 mg/ Syringe) 0.5 mls @ 4 mls/min IV Q12H [facility] Stop: 09/28/23 11:59 Last Admin: 08/29/23 12:12 Dose: 4 mls/min Lactobacillus Acidophilus (Advanced Probiotic 625 Mg Capsule) 1,250 mg PO DAILY [facility] Stop: 09/14/23 11:14 Last Admin: 08/29/23 08:14 Dose: 1,250 mg Loperamide HCl (Loperamide Hcl 2 Mg Cap) 2 mg PO Q6H PRN PRN Reason: Diarrhea Stop: 09/17/23 16:16 Magnesium Oxide (Magnesium Oxide 400 Mg Tab) 400 mg PO BID [facility] Stop: 09/24/23 13:29 Last Admin: 08/29/23 08:16 Dose: 400 mg Metoprolol Succinate (Metoprolol Succ 50mg Ext Rel Tab) 100 mg PO BID [facility] Stop: 09/21/23 20:59 Last Admin: 08/29/23 08:16 Dose: 100 mg Metoprolol Tartrate (Metoprolol Tartrate 1 Mg/Ml Vial) 5 mg IV Q6 PRN PRN Reason: Tachycardia HR>110 Stop: 09/21/23 11:59 Last Admin: 08/26/23 12:27 Dose: 5 mg Oxycodone HCl (Oxycodone Hcl Ir 5 Mg Tab (Immediate Release)) 5 mg PO Q6H PRN PRN Reason: Pain Stop: 09/10/23 16:58 Last Admin: 08/29/23 08:10 Dose: 5 mg Pantoprazole Sodium (Pantoprazole 40 Mg Tab) 40 mg PO DAILYBB [facility] Stop: 09/12/23 06:29 Last Admin: 08/29/23 05:33 Dose: 40 mg Polyethylene Glycol (Polyethylene (Miralax) 17 Gm Pack) 17 gm PO DAILY PRN PRN Reason: Constipation Stop: 09/12/23 05:30 Potassium Phosphate (Pot Phosphate Monobasic W/ Sod Tab) 1 tab PO QID [facility] Stop: 09/26/23 08:59 Last Admin: 08/29/23 12:11 Dose: 1 tab Prednisone (Prednisone 5 Mg Tab) 5 mg PO DAILY [facility] Stop: 09/17/23 08:59 Last Admin: 08/29/23 08:13 Dose: 5 mg Rosuvastatin Calcium (Rosuvastatin Calcium 5 Mg Tab) 5 mg PO QAM [facility] Stop: 09/12/23 08:59 Last Admin: 08/29/23 08:14 Dose: 5 mg Sacubitril/Valsartan (Valsartan/Sacubitril 26/24mg Tab) 1 tab PO BID [facility] Stop: 09/12/23 08:59 Last Admin: 08/23/23 07:45 Dose: 1 tab Sildenafil Citrate (Sildenafil Citrate 20 Mg Tablet) 40 mg PO HS [facility] Stop: 09/12/23 20:59 Last Admin: 08/28/23 20:28 Dose: 40 mg Sildenafil Citrate (Sildenafil Citrate 20 Mg Tablet) 20 mg PO BID@0730,1200 [facility] Stop: 09/13/23 07:29 Last Admin: 08/29/23 11:07 Dose: 20 mg Spironolactone (Spironolactone 12.5 Mg Tab) 12.5 mg PO DAILY [facility] Stop: 09/27/23 13:29 Last Admin: 08/29/23 08:15 Dose: 12.5 mg Sulfasalazine (Sulfasalazine 500 Mg Tablet) 500 mg PO QAM [facility] Stop: 09/12/23 08:59 Last Admin: 08/29/23 08:15 Dose: 500 mg Umeclidinium [place] (Umeclidinium [place] 62.5mcg/Blister 7 Puffs/Inhaler) 1 puffs INH QAM [facility] Stop: 09/12/23 08:59 Last Admin: 08/29/23 08:12 Dose: 1 puffs Vitamin D (Cholecalciferol 10 Mcg (400 Units) Tab) 10 mcg PO DAILY [facility] Stop: 09/12/23 08:59 Last Admin: 08/29/23 08:18 Dose: 10 mcg
[2023-08-29] MEDS: FUROSEMIDE 40 MG/4 ML VIAL IV ONE (13:35)
[2023-08-29] MEDS: POTASSIUM CHLORIDE CRTAB 20 MEQ TABCR PO ONE (13:35)
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
[2023-08-30 10:07] LABS: BUN Creatinine Ratio 32.6 (10-20); Calcium 9.4 mg/dl (8.6-10.3); Creatinine Clr Calc Pharmacy 100.3 ml/min; Est GFR (African American) 101.1 ml/min; Est GFR (Non-African American) 87.3 ml/min; Potassium 3.8 mmol/L (3.5-5.1)
--- NOTE | 2023-08-30 11:55 | Cardiology Progress Note ---
Date of Service August 30, 2023 Assessment & Plan (1) Elevated troponin: (2) Chronic combined systolic and diastolic CHF (congestive heart failure): (3) PAD (peripheral artery disease): (4) Raynauds disease: (5) Permanent atrial fibrillation: Plan IMPRESSION: Medically complex 58 year old male who initially presented to [facility] due to AMS/for psyc evaluation. Patient carries a history of history of chronic combined diastolic and systolic CHF with right heart failure. On admission he was found to have a necrotic right great toe--he does have a known history of peripheral arterial disease and Raynaud's. In addition he carries a history of permanent atrial fibrillation--rate controlled on metoprolol and digoxin and anticoagulated with Eliquis. Due to right great toe osteomyelitis and gangrene patient ultimately underwent right hallux partial amputation with Dr. Somers on 08/22/2023. ID was consulted for recommendations of antibiotics. Patient is currently on oral doxycycline and oral documented. PLAN: Elevated troponin: Known nonobstructive CAD-- medically managed. Chronic elevation in HS troponin-- patient without chest pain or shortness of breath. EKG without ischemic changes. Low likelihood for ACS. -Continue ASA and statin as ordered. Chronic combined diastolic and systolic CHF + RHF: LVEF ~50% on most recent echo (improved). Dilated RV with reduced systolic function on prior -Patient remains hypervolemic on exam but is responding well to increased dose of IV Lasix. Should continue IV Lasix 40 mg twice daily--repeat blood work from this morning is pending. - Continue GDMT with metoprolol succinate as ordered. Will hold Entresto and spironolactone due to hypotension and allow for more aggressive diuresis. -Monitor renal function and electrolytes. Replace potassium for goal of 4.0 and mag of 2.0. -2 g sodium diet. 1500 cc fluid restriction. strict intake and output recording. Daily standing weights. CHF education. As noted in prior progress note by Dr. Allen-- Consider stress dose steroids with patient on chronic prednisone dosing question adrenal insufficiency if persistent hypotension and no signs of systemic infection found. PAD/Raynaud's: Osteomyelitis and gangrene of the right great toe status post partial amputation 08/22/2023 ID consulted for antibiotic recommendations -Continue ASA 81 mg daily and statin as ordered. -Repeat blood cultures negative. Permanent atrial fib: Asymptomatic. Borderline rate control. -Continue metoprolol and digoxin as ordered. As diuresis occurs rates will likely improve. -Continue Eliquis for stroke prevention Confusion/AMS: Patient having issues at home caring for himself. Poor historian. Admitted for mental health eval. -Will defer to primary service for recommendations. 08/29/23: Patient reported increased shortness of breath, orthopnea, and lower extremity swelling. Will give IV Lasix 40 mg ONCE with Potassium 40 meq ONCE. BMP reviewed. K 3.7 (goal K> 4.0). Creatinine remains WNL at 0.92. Continue PASSENGER SERVICE MANAGER Lasix 40 mg daily with Spironolactone 12.5 mg daily. Consider increasing to 25 mg tomorrow. Resumed Entresto this morning. Continue metoprolol and digoxin for ongoing rate control of atrial fibrillation. Continue Eliquis for stroke prophylaxis. Fluid restriction of no more than 2L per day. Sodium restriction of 2 gm/day. Monitor kidney function/electrolytes closely. Recommend K > 4.0 and Mag > 2.0. Accurate I&O and daily weights. Blood cultures: NO growth to date. Patient remains on stress dose steroids with hydrocortisone, due to his hypertensive response postoperatively and underlying immunosuppression. May be time to wean this treatment. 08/30/23: Patient diuresed 2-3 L overnight with additional IV lasix. Edema improved. Weight trending down. Increase spironolactone to 25 mg daily Increase oral furosemide to 40 mg BID Monitor renal function and electrolytes. Goal potassium 4.0-5.0 Daily weight with standing scale. Monitor I+O's Entresto also resumed at home dose. Continue metoprolol and digoxin for afib. Continue eliquis. Patient remains on stress dose steroids with hydrocortisone. Dose reduced yesterday. Continue to wean. Case discussed with Dr. Valente I spent a total of 40 minutes on the date of service in preparation, delivery, and documentation of the care provided to this patient, excluding any time spent in the performance of separately billed services. Valentina Ceron PA-C Department of Cardiology, [facility] This chart was completed in part utilizing Speech Voice Recognition Software. Grammatical errors, random word insertions, pronoun errors, and incomplete sentences are an occasional consequence of this system due to software limitati ons, ambient noise, and hardware issues. Any formal questions or concerns about the content, text, or information contained within the body of this dictation should be directly addressed to the provider for clarification. Admission and Anticipated Discharge Date Admission Date: August 13, 2023 Supervising Physician Co-Signing Physician Notes Attending attestation: Case reviewed with the advanced practitioner. I have personally performed a history and physical examination on the patient. I have reviewed the advanced practitioner's documentation on the date of service referenced in note, and I agree with, and take responsibility for the plan of care. Increase furosemide to 40 mg PO BID. Wean hydrocortisone. DC SQ heparin order (has been on hold) as Eliquis resumed. I spent a total of 20 minutes coordinating, documenting, and providing care for this patient excluding time spent in the performance of separately billed services or time spent by another provider. Jamie Valente, DO Subjective Patient resting in bed comfortably. He does continue to report shortness of breath, orthopnea. However he appears comfortable laying supine. Significant improvement in his lower extremity edema noted today. Review of Systems Review of Systems: All systems reviewed & are unremarkable except as noted in HPI & below Physical Exam Constitutional: WD/WN, vitals as above no acute distress Neck: normal visual inspection and trachea midline Respiratory: normal respiratory effort, lungs clear to auscultation no respiratory distress Auscultation: no rales, no rhonchi and no wheezes Cardiovascular: Rate/Rhythm: + irregularly irregular Heart Sounds: normal S1 and normal S2 Extremities: + edema (only trace b/l edema. right foot wrapped) Gastrointestinal (Abdomen): normal bowel sounds, soft, nontender, no hepatosplenomegaly Skin: no rashes, warm and dry Neurologic: PERRL, EOMI, accommodation nl, no face palsy, no dysarthria Psychiatric: Orientation: alert and oriented x 3 (forgetful) Results & Data Vital Signs (Past 12 Hours) Vital Signs Temp Pulse Pulse Resp BP Pulse Ox O2 Del Method 08/30/23 11:20 Room Air 08/30/23 11:16 36.4 C L 100 H 18 124/76 94 Room Air 08/30/23 08:24 81 08/30/23 08:05 36.6 C 96 H 18 138/81 93 Room Air 08/30/23 03:33 36.6 C 89 18 119/64 93 Room Air Laboratory Results Comprehensive Metabolic Panel 08/30/23 Range/Units 09:04 Sodium 141 (136-145) mmol/L Potassium 3.8 (3.5-5.1) mmol/L Chloride 104 (98-107) mmol/L Carbon Dioxide 31 (21-32) mmol/L BUN 31 H (6-23) mg/dl Creatinine 0.95 (0.6-1.4) mg/dl Glucose 121 H (70-99(Fasting)) mg/dl Calcium 9.4 (8.6-10.3) mg/dl Intake and Output 08/29/23 08/30/23 08/30/23 22:59 06:59 14:59 Intake Total 240 / 820 100 / 820 Output Total 1500 / 2352 400 / 2352 Balance -1260 / -1532 -300 / -1532 Intake: Oral 240 / 820 100 / 820 Output: Urine 1500 / 2350 400 / 2350 Other: Weight 105.6 kg Weight Measurement Method Built in Bedscale Diagnostic Findings Comprehensive Metabolic Panel 08/30/23 Range/Units 09:04 Sodium 141 (136-145) mmol/L Potassium 3.8 (3.5-5.1) mmol/L Chloride 104 (98-107) mmol/L Carbon Dioxide 31 (21-32) mmol/L BUN 31 H (6-23) mg/dl Creatinine 0.95 (0.6-1.4) mg/dl Glucose 121 H (70-99(Fasting)) mg/dl Calcium 9.4 (8.6-10.3) mg/dl Intake and Output 08/29/23 08/30/23 08/30/23 22:59 06:59 14:59 Intake Total 240 / 820 100 / 820 Output Total 1500 / 2352 400 / 2352 Balance -1260 / -1532 -300 / -1532 Intake: Oral 240 / 820 100 / 820 Output: Urine 1500 / 2350 400 / 2350 Other: Weight 105.6 kg Weight Measurement Method Built in Bedscale Medications Administered Current Inpatient Medications Acetaminophen (Acetaminophen 325 Mg Tab) 650 mg PO Q4H PRN PRN Reason: Pain or Fever Stop: 09/12/23 05:30 Last Admin: 08/26/23 12:58 Dose: 650 mg Alendronate Sodium (Alendronate Sodium 70 Mg Tab) 70 mg PO Fr@0630 [facility] Stop: 09/16/23 06:29 Last Admin: 08/24/23 06:04 Dose: 70 mg Amoxicillin/Clavulanate Potassium (Amoxicillin/Clavulanate 875 Mg Tab) 1 tab PO BIDM [facility] Stop: 10/08/23 16:59 Last Admin: 08/30/23 08:50 Dose: 1 tab Apixaban (Apixaban 5 Mg Tablet) 5 mg PO BID [facility] Stop: 09/12/23 08:59 Last Admin: 08/30/23 08:51 Dose: 5 mg Aspirin (Aspirin 81 Mg Ectab) 81 mg PO QAM [facility] Stop: 09/12/23 08:59 Last Admin: 08/30/23 08:50 Dose: 81 mg Digoxin (Digoxin 0.125 Mg Tab) 0.125 mg PO DAILY@1600 [facility] Stop: 09/12/23 15:59 Last Admin: 08/29/23 17:09 Dose: 0.125 mg Doxycycline Hyclate (Doxycycline Hyclate 100 Mg Cap) 100 mg PO BID [facility] Stop: 10/08/23 20:59 Last Admin: 08/30/23 08:51 Dose: 100 mg Escitalopram Oxalate (Escitalopram Oxalate 10 Mg Tab) 10 mg PO QAM [facility] Stop: 09/14/23 08:59 Last Admin: 08/30/23 08:50 Dose: 10 mg Furosemide (Furosemide 40 Mg Tab) 40 mg PO BID [facility] Stop: 09/29/23 16:59 Guaifenesin (Guaifenesin 600 Mg Tabcr) 600 mg PO Q12 [facility] Stop: 09/24/23 10:29 Last Admin: 08/30/23 08:53 Dose: 600 mg Heparin Sodium (Porcine) (Heparin Sod 5,000 Unit/0.5 Ml Vial) 5,000 units SQ Q12 [facility] Stop: 09/20/23 20:59 Last Admin: 08/25/23 08:28 Dose: 5,000 units Hydromorphone HCl (Hydromorphone Inj 0.5 Mg/0.5 Ml Syr) 0.5 mg IV Q6H PRN PRN Reason: Pain Stop: 09/06/23 09:54 Last Admin: 08/30/23 06:47 Dose: 0.5 mg Hydrocortisone Sodium (Succinate 25 mg/ Syringe) 0.5 mls @ 4 mls/min IV Q12H [facility] Stop: 09/28/23 11:59 Last Admin: 08/29/23 23:30 Dose: 4 mls/min Lactobacillus Acidophilus (Advanced Probiotic 625 Mg Capsule) 1,250 mg PO DAILY [facility] Stop: 09/14/23 11:14 Last Admin: 08/30/23 08:51 Dose: 1,250 mg Loperamide HCl (Loperamide Hcl 2 Mg Cap) 2 mg PO Q6H PRN PRN Reason: Diarrhea Stop: 09/17/23 16:16 Magnesium Oxide (Magnesium Oxide 400 Mg Tab) 400 mg PO BID [facility] Stop: 09/24/23 13:29 Last Admin: 08/30/23 08:53 Dose: 400 mg Metoprolol Succinate (Metoprolol Succ 50mg Ext Rel Tab) 100 mg PO BID [facility] Stop: 09/21/23 20:59 Last Admin: 08/30/23 08:51 Dose: 100 mg Metoprolol Tartrate (Metoprolol Tartrate 1 Mg/Ml Vial) 5 mg IV Q6 PRN PRN Reason: Tachycardia HR>110 Stop: 09/21/23 11:59 Last Admin: 08/26/23 12:27 Dose: 5 mg Oxycodone HCl (Oxycodone Hcl Ir 5 Mg Tab (Immediate Release)) 5 mg PO Q6H PRN PRN Reason: Pain Stop: 09/10/23 16:58 Last Admin: 08/30/23 05:25 Dose: 5 mg Pantoprazole Sodium (Pantoprazole 40 Mg Tab) 40 mg PO DAILYBB [facility] Stop: 09/12/23 06:29 Last Admin: 08/30/23 05:21 Dose: 40 mg Polyethylene Glycol (Polyethylene (Miralax) 17 Gm Pack) 17 gm PO DAILY PRN PRN Reason: Constipation Stop: 09/12/23 05:30 Potassium Phosphate (Pot Phosphate Monobasic W/ Sod Tab) 1 tab PO QID [facility] Stop: 09/26/23 08:59 Last Admin: 08/30/23 08:51 Dose: 1 tab Prednisone (Prednisone 5 Mg Tab) 5 mg PO DAILY [facility] Stop: 09/17/23 08:59 Last Admin: 08/30/23 08:50 Dose: 5 mg Rosuvastatin Calcium (Rosuvastatin Calcium 5 Mg Tab) 5 mg PO QAM [facility] Stop: 09/12/23 08:59 Last Admin: 08/30/23 08:51 Dose: 5 mg Sacubitril/Valsartan (Valsartan/Sacubitril 26/24mg Tab) 1 tab PO BID [facility] Stop: 09/12/23 08:59 Last Admin: 08/30/23 08:50 Dose: 1 tab Sildenafil Citrate (Sildenafil Citrate 20 Mg Tablet) 40 mg PO HS [facility] Stop: 09/12/23 20:59 Last Admin: 08/29/23 20:54 Dose: 40 mg Sildenafil Citrate (Sildenafil Citrate 20 Mg Tablet) 20 mg PO BID@0730,1200 [facility] Stop: 09/13/23 07:29 Last Admin: 08/30/23 08:50 Dose: 20 mg Spironolactone (Spironolactone 25 Mg Tab) 25 mg PO DAILY [facility] Stop: 09/30/23 08:59 Spironolactone (Spironolactone 12.5 Mg Tab) 12.5 mg PO ONE ONE Stop: 08/30/23 11:53 Sulfasalazine (Sulfasalazine 500 Mg Tablet) 500 mg PO QAM [facility] Stop: 09/12/23 08:59 Last Admin: 08/30/23 08:50 Dose: 500 mg Umeclidinium [place] (Umeclidinium [place] 62.5mcg/Blister 7 Puffs/Inhaler) 1 puffs INH QAM [facility] Stop: 09/12/23 08:59 Last Admin: 08/30/23 08:52 Dose: 1 puffs Vitamin D (Cholecalciferol 10 Mcg (400 Units) Tab) 10 mcg PO DAILY [facility] Stop: 09/12/23 08:59 Last Admin: 08/30/23 08:50 Dose: 10 mcg
[2023-08-30] MEDS: SPIRONOLACTONE 12.5 MG TAB PO ONE (13:56)
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
--- NOTE | 2023-08-30 15:25 | Discharge Summary ---
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 spine and bilateral shoulder joints. IMPRESSION: 1. No evidence of pulmonary embolus. 2. Bilateral anterior pulmonary nodules are stable to minimally decreased in size from prior exam. Previously noted cavitary nodule in the right upper lobe has resolved. These are favored to be benign given lack of growth from 2020, however follow-up is recommended. ACT 112: Negative or not required by law. Electronically signed by: Ney Small M.D. 08/19/2023 11:30 AM Brain MRI 08/22/23 00:57 Exam(s): MRI HEAD W/WO Contrast IV Amt: 10cc gadavist EXAM: MR Head Without and With Intravenous Contrast CLINICAL HISTORY: Reason for exam: Intermitent confusion H/O TIA. TECHNIQUE: Magnetic resonance images of the head/brain without and with intravenous contrast in multiple planes. CONTRAST: Patient received 10cc gadavist of IV contrast COMPARISON: Comparison made to prior brain MRI from April 03, 2019. FINDINGS: Brain: There is mild nonspecific white matter changes. The flow voids at the base of the brain are intact. No mass. No hemorrhage. No acute infarct. Normal enhancement of the brain parenchyma. The dural venous sinuses are patent. Ventricles: Mild ventriculomegaly. Bones/joints: Unremarkable. No acute fracture. Sinuses: Chronic ethmoid sinusitis. There is a large retention cyst in the left maxillary sinus. No acute sinusitis. Mastoid air cells: Unremarkable as visualized. No mastoid effusion. Orbits: Unremarkable as visualized. IMPRESSION: No evidence of acute intracranial pathology. Mild nonspecific white matter changes. Electronically signed by: Brianda Lizarraga MD 08/22/23 02:57 AM Chest X-Ray 08/25/23 10:12 XR chest 1V portable HISTORY: hypoxia COMPARISON: Chest 08/13/2023. FINDINGS: No pneumothorax. No pleural effusions. The heart remains enlarged. Mild interstitial thickening, unchanged. This is likely chronic. The pulmonary nodule seen on the recent chest CT are not well evaluated by this modality. No evidence for pulmonary edema. There are low lung volumes. Advanced degenerative changes within the shoulders. IMPRESSION: 1. Stable cardiomegaly and chronic interstitial thickening. 2. The pulmonary nodules seen on the recent chest CT are not well evaluated by this modality. ACT 112: Negative or not required by law. Electronically signed by: Spencer Christianson M.D. 08/25/2023 10:34 AM Pending Results Patient Have Any Pending Studies at Discharge: Yes Discharge Instructions Given to Patient (Per Discharging Provider) Patient currently on Lasix and spironolactone. Repeat basic metabolic profile in 2 to 3 days. 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 Please refer to accompanying hospital discharge summary for full details. Total Time Total Time Spent Total Time Spent (In Minutes): >30 minutes
[2023-08-30] MEDS ORDERED: FUROSEMIDE 40 MG TAB PO SCH (17:00)
[2023-08-31] MEDS ORDERED: SPIRONOLACTONE 25 MG TAB PO SCH (09:00)
--- NOTE | 2023-09-10 21:35 | Operative Report ---
Post Operative Report Pre & Post Diagnosis Operation Date: 08/22/23 12:15 Pre-Op Diagnosis: Right toe gangrene Post-Op Diagnosis: Right toe gangrene I identified the patient and participated in the time-out.: Yes Procedure Operation Date: 08/22/23 12:15 Actual Procedures p Right Hallux Partial Amputation(Right) - Nilesh Somers DPM Surgeon Nilesh Somers DPM Director Regulatory Affairs None Estimated Blood Loss 10 Findings Consistent with Post-Op Diagnosis all nonviable tissue was able to be excised without incident. No remaining clinical infection noted after primary closure. Specimens right hallux was sent for gross/permanent pathology testing Anesthesia Type MAC Complications none Disposition Accompanied Patient To Recovery: Yes Disposition: Recovery Room Indications this patient is a recent hospital consult of mine who developed blackening to the tip of the right hallux rather acutely. I believe this to be a subungual hematoma, though after his recent ulcer debridement and bone biopsy, underlying osteomyelitis was confirmed. Because of this, we discussed treatment options during this hospitalization, including long-term IV antibiotics versus resection of the toe. He has elected for the more definitive surgical correction at this time, to help return to a more normal level sooner than later. Description of Procedure the patient was brought to the operating room placed on the operating table in the supine position. Following administration of IV sedation, local analgesia was obtained utilizing 20 cc of half percent Marcaine in a Fonseca block fashion. The right lower extremity was then scrubbed prepped and draped in the usual aseptic manner. No tourniquet was used in this procedure given the patient's advancing peripheral arterial disease symptoms. Attention was directed to the distal aspect of the right hallux, where 2 converging semielliptical incisions were made circumferentially around the toe at the level of the IPJ, just distal to the joint itself. The incisions were carried down to the level of the bone utilizing sharp dissection techniques. Utilizing a 15 blade, the toe was disarticulated at the IPJ with the distal aspect of the toe being sent back table for further pathology testing. Because of his recent culture results obtained surgically from the bone, no new bone cultures were obtained today. The surgical site was flushed with copious amounts of sterile saline and closure was performed primarily with 2-0 nylon in a simple fashion. the incision was dressed with Xeroform gauze, 4 x 4 gauze, Kerlix, and an Jung wrap. The patient tolerated the procedure well and was transferred to the recovery room with vital signs stable and vascular status intact to the feet. Following postoperative monitoring, the patient be transferred back to the floor for further testing and treatment while inpatient here. I attest to the content of the Intraoperative Record and any orders documented therein. Any exceptions are noted below.
== END 2023-08-30 18:09 | DRG 463 ==
LOC: ED 00:01 → EDINP 04:57 → SUATTDRO 04:57 → 2W 05:30

== ENCOUNTER 2023-10-24 13:16 | Inpatient (IN) ==
[2023-10-24] MEDS: dilTIAZem HCl 5 MG/ML 5 ML VIAL IV STA (13:45)
[2023-10-24] MEDS: dilTIAZem HCL 125 MG in DEXTROSE 5% 100 ML IV SCH (13:46)
--- NOTE | 2023-10-24 13:54 | XRay Report ---
XR chest 1V portable CLINICAL HISTORY: weakness, swelling TECHNIQUE: Single frontal radiograph of the chest was obtained. Comparison: Comparison is made to chest radiograph 08/25/2023 FINDINGS: Degenerative changes are seen in the bilateral shoulders. Cardiomegaly is noted. The aortic arch is c alcified. The lungs are clear. No evidence of pleural effusion or pneumothorax. IMPRESSION: No acute chest disease. ACT 112: Negative or not required by law. Electronically signed by: Ney Small M.D. 10/24/2023 1:53 PM
[2023-10-24 14:05] LABS: Basophils # (auto) 0.02 K/uL (0.00-0.20); Basophils % (auto) 0.2 %; Eosinophils # (auto) 0.52 K/uL (0.00-0.50); Eosinophils % (auto) 4.9 %; Hematocrit (blood only) 33.5 % (42.0-52.0); Hemoglobin 10.3 g/dl (14.0-18.0); Immature Granulocytes # (auto) 0.08 K/uL (0.01-0.20); Immature Granulocytes % (auto) 0.8 %; Lymphocytes # (auto) 0.74 K/uL (1.20-3.40); Mean Corpuscular Hemoglobin 24.7 pg (25.0-34.0); Mean Corpuscular Hgb Conc 30.7 g/dL (32.0-36.0); Mean Corpuscular Volume 80.3 fL (80.0-100.0); Mean Platelet Volume 9.6 fL (9.4-12.4); Monocytes # (auto) 0.33 K/uL (0.11-0.59); Monocytes % (auto) 3.1 %; Neutrophils # (auto) 8.95 K/uL (1.40-6.50); Platelet Count 440 K/uL (130-400); RDW Coefficient of Variation 18.8 % (11.5-14.5); RDW Standard Deviation 54.2 fL (36.4-46.3); Red Blood Count 4.17 M/uL (4.70-6.10); White Blood Count 10.64 K/ul (4.8-10.8)
[2023-10-24 14:07] LABS: Albumin Globulin Ratio 0.7 (0.9-2); Albumin Level 2.9 gm/dl (3.4-5.0); BUN Creatinine Ratio 18.2 (10-20); Bilirubin,Total 0.5 mg/dl (0.2-1.0); Calcium 8.9 mg/dl (8.6-10.3); Creatinine Clr Calc Pharmacy 124.1 ml/min; Est GFR (African American) 115.1 ml/min; Est GFR (Non-African American) 99.3 ml/min; Globulin 3.9 gm/dl (2.5-4.0); Magnesium 2.2 mg/dl (1.7-2.4); Potassium 3.9 mmol/L (3.5-5.1); Total Protein 6.8 gm/dl (6.0-8.3)
[2023-10-24 14:15] LABS: Troponin I High Sensitivity 440.3 pg/ml (0-20)
[2023-10-24 14:21] LABS: Thyroid Stimulating Hormone 1.833 uIu/ml (0.300-4.500)
[2023-10-24 14:27] LABS: INR 1.1 (0.9-1.1); Prothrombin Time 11.9 Seconds (9.0-12.0)
[2023-10-24] MEDS: ASPIRIN CHEW 324 MG PO STA (14:37)
--- NOTE | 2023-10-24 14:37 | Emergency Department Note ---
Impression & Plan Atrial fibrillation with rapid ventricular response, Non-ST elevation ID (NSTEMI), Leg swelling ED Provider Note Provider: Nilesh Romo MD DATE OF SERVICE: 10/24/2023 CHIEF COMPLAINT: Short of breath, chest pain, swelling HISTORY OF PRESENT ILLNESS: Patient is a 58-year-old gentleman past medical history significant for COPD, systolic heart failure, atrial fibrillation on Eliquis, GERD, rheumatoid arthritis on prednisone presenting here today reporting over the last 2 to 3 days he noted increased swelling of the lower legs. Intermittently having some chest discomfort over the last several days. Last night when getting into his wheelchair missed and fell to the ground. States did not strike his head or lose consciousness. Patient states he has a little bit of soreness of his right arm but able to move it well. About a month ago have amputation of his right great toe and this is still a bit sore. No fevers reported or other sick contacts at home. Some increase swelling of the lower legs bilaterally. PAST MEDICAL HISTORY: As noted above MEDICATIONS: Reviewed home medication list and the patient states he believes he has been taking these as he should including this morning SOCIAL HISTORY: Resides at home with family, 1 cigarette a day PHYSICAL EXAM: GENERAL: alert and oriented in no acute distress on stretcher fatigued in appearance Head: normocephalic and atraumatic EYES: No injection, discharge or icterus. NECK: Trachea midline. ENT: Mucous membranes pink and moist. LUNGS: Airway patent. No retractions. Breath sounds diminished bases HEART: Irregular regular tachycardic rate and rhythm. ABDOMEN: Soft and non-tender, without guarding or rebound. SKIN: Acyanotic, warm, dry, without rashes EXTREMITIES: 2+ edema lower extremities with partially amputated left great toe with some scab in place but no crepitus. Few scattered contusions right upper arm but soft compartments of the arms and legs without evidence of lacerations. Good movement of the right wrist, forearm, elbow, and upper arm. NEUROLOGICAL: No aphasia. No facial droop or slurred speech. Moving all extremities. EK beats minute rapid atrial fibrillation. No acute ST segment elevation with some nonspecific T wave flattening. QTc 443. Right axis noted. CONTINUOUS CARDIAC MONITORING: was ordered and showed a heart rate of 100s-140s bpm in A-fib Patient's laboratory studies and imaging reviewed. Differential includes Reactive airway disease, pneumonia, pneumothorax, COPD, CHF, infections, cardiac ischemia, pulmonary embolism, musculoskeletal, gastrointestinal, traumatic injury as well as other pathologies. IMPRESSION/MEDICAL DECISION MAKING: Alerted by EMS prior to arrival of blood upon arrival by EMS the patient was in rapid A-fib. Received 2 mg of IV diltiazem as well as a gram of magnesium for some improved rate control prior to arrival. Here rapid A-fib in the 130s and 40s upon arrival. Start diltiazem drip. Does have evidence of some swelling of the legs and some diminished lower breath sounds. X-ray without evidence of pneumonia or significant pulmonary edema. Patient's chest pain minimal upon arrival resolves with institution of some rate control. Borderline fever here. Respiratory viral panel sent as well as blood cultures. Procalcitonin elevated hold off antibiotics I do not a clear source. Troponin and BNP somewhat elevated. Lactate mildly elevated likely inside of A-fib RVR perfusion issues related to this. Again heart rate control is now improving. Doubt acute STEMI. Given a bit of Lasix for some increased diuresis is appears fluid overloaded. Digoxin level undetectably low may be contributing to his A-fib RVR. Given a dose of aspirin but is normally anticoagulated Eliquis will hold off on heparin drip at this point. Doubt DVT in lower extremities or PE given his anticoagulated status. No evidence of significant trauma based on some slight contusion to the right arm and I doubt bony injury or compartment syndrome. Denies striking his head and no evidence of head trauma and do not feel we need CT imaging here at this time. Denies significant back or abdominal discomfort at this time. DIAGNOSIS: A-fib RVR, shortness of breath, leg swelling DISPOSITION: Hospitalist will evaluate Patient was agreeable with this plan. Critical Care I have personally spent 34 minutes of critical care time in the direct management of this patient. This includes bedside care, interpretation of diagnostic studies, and testing, discussion with consultants, patient, and other required patient management activities. These 34 minutes is in excess of all separately billable procedures. Past Med/Surg History Problem List COPD (chronic obstructive pulmonary disease) Leg swelling (Acute) Atrial fibrillation with rapid ventricular response (Acute) Drug use Syncope and collapse Status post incision and drainage Osteomyelitis of great toe of right foot Encounter for pre-operative examination Toe pain, right Open wound of right great toe with damage to nail Depressive disorder Thought disorder (Acute) Necrosis of toe (Acute) Elevated troponin (Acute) Permanent atrial fibrillation Chronic combined systolic and diastolic CHF (congestive heart failure) Raynauds disease PAD (peripheral artery disease) HTN (hypertension) Hepatitis C Acute on chronic heart failure with reduced ejection fraction and diastolic dysfunction HFrEF (heart failure with reduced ejection fraction) Anemia (Acute) Lung nodules LEVIN (dyspnea on exertion) (Acute) Elevated troponin (Acute) Elevated brain natriuretic peptide (BNP) level (Acute) Congestive heart failure (Acute) Atrial fibrillation with rapid ventricular response (Acute) COVID CAD (coronary artery disease) SOB (shortness of breath) Chest pain Dyspnea Cardiomyopathy NSTEMI (non-ST elevated myocardial infarction) (Acute) Cavitary lesion of lung Systolic heart failure Abnormal echocardiogram Elevated troponin Abnormal CT of the chest (Acute) Chronic steroid use (Chronic) Long-term use of high-risk medication Rheumatoid arthritis (Chronic) Pulmonary nodule (Acute) SOB (shortness of breath) Non-ST elevation ID (NSTEMI) (Acute) GERD (gastroesophageal reflux disease) Osteoarthritis of right knee (Chronic) Status post right knee replacement (Acute) Medical History (Updated 10/24/23 @ 15:10 by Lizabeth Conroy PA-C) Pre-diabetes Erectile dysfunction Tobacco use disorder Surgical History History of cardiac cath History of colonoscopy Hx of tonsillectomy Family History Other Heart disease Hypertension Social History Smoking Status: Current every day smoker Tobacco Type: Cigarettes Cigarettes Per Day: 8-10; Second Hand Exposure: Yes; Do You Dip or Chew Tobacco: No; Hx Alcohol Use: No Hx Substance Use: No Preferred Language: Lithuanian Communication Ability: Effective Hockey Scout Required: No Beliefs That Will Affect Care: None Current Living Situation: Family and Significant Other Current Living Situation Comment: Lives at home with ex-girlfriend Hayley, & their child Danica Feels Safe at Home: Yes Assistive Devices: Cane, Walker and Wheelchair Allergies Allergies Allergy/AdvReac Type Severity Reaction Status Date / Time No Known Allergies Allergy Verified 08/13/23 02:24 Home Meds Home Medications Medication Instructions Recorded Confirmed aspirin 81 mg tablet,delayed 81 mg PO QAM 04/04/21 08/13/23 release (Bob Low Dose Aspirin) omeprazole 40 mg capsule,delayed 40 mg PO DAILYBB 04/04/21 08/13/23 release nitroglycerin 0.4 mg sublingual 0.4 mg sublingual .PRN/UD PRN 08/27/21 08/13/23 tablet Chest Pain rosuvastatin 5 mg tablet 5 mg PO QAM 08/27/21 08/13/23 sildenafil (pulm.hypertension) 20 20 mg PO BID 08/27/21 08/13/23 mg tablet sildenafil (pulm.hypertension) 20 40 mg PO HS 04/06/22 08/13/23 mg tablet tiotropium bromide 2.5 2 inh inhalation QAM 04/06/22 08/13/23 mcg/actuation mist for inhalation (Spiriva Respimat) alendronate 70 mg tablet 70 mg PO WK 07/05/22 08/13/23 cholecalciferol (vitamin D3) 10 10 mcg PO DAILY 08/13/23 08/13/23 mcg (400 unit) capsule (Vitamin D3) digoxin 125 mcg (0.125 mg) tablet 0.125 mcg PO DAILY 08/13/23 08/13/23 empagliflozin 10 mg tablet 10 mg PO QAM 08/13/23 08/13/23 (Jardiance) escitalopram oxalate 10 mg tablet 10 mg PO QAM 08/13/23 08/13/23 metoprolol succinate 100 mg 100 mg PO BID 08/13/23 08/13/23 tablet,extended release 24 hr ondansetron HCl 4 mg tablet 4 mg PO Q8H PRN NAUSEA/VOMITING 08/13/23 08/13/23 sacubitril 24 mg-valsartan 26 mg 1 tab PO BID 08/13/23 08/13/23 tablet (Entresto) sarilumab 200 mg/1.14 mL 200 mg subcut .[id number] 08/13/23 08/13/23 subcutaneous pen injector (Kevzara) sulfasalazine 500 mg tablet 500 mg PO QAM 08/13/23 08/13/23 Previous Rx's Medication Instructions Recorded apixaban 5 mg tablet (Eliquis) 5 mg PO BID #60 tabs 07/10/22 furosemide 20 mg tablet 40 mg (2 x 20 mg) PO BID 15 days 08/30/23 #60 tabs magnesium oxide 400 mg (241.3 mg 400 mg PO BID 15 days #30 tabs 08/30/23 magnesium) tablet oxycodone 5 mg tablet 5 mg PO Q6H PRN pain #10 tabs 08/30/23 prednisone 5 mg tablet 5 - 10 mg (1 - 2 x 5 mg) PO UD 08/30/23 RHEUMATOID ARTHRITIS #60 tabs spironolactone 25 mg tablet 25 mg PO QAM 30 days #30 tabs 08/30/23 Results & Data (ED) Vital Signs Vital Signs - 24 hr 10/24/23 13:23 10/24/23 13:41 10/24/23 13:45 Temperature 37.8 C H Temperature Source Oral Pulse Rate 131 H 130 H 118 H Pulse Rate from SpO2 Sensor 130 H Pulse Rhythm Regular Pulse Strength Normal Respiratory Rate 20 22 20 Respiratory Effort / Characteristics Non-Labored Respiratory Depth Normal Respiratory Pattern Regular Blood Pressure 130/75 Blood Pressure Mean 93 Pulse Oximetry 95 97 Oxygen Delivery Method Room Air Sepsis Recent Fever Within 48 Hours No Sepsis New/Unexplained Change in Mental Status No Sepsis Action Taken by Nursing No Action Required 10/24/23 13:51 10/24/23 13:53 10/24/23 13:53 Temperature Temperature Source Pulse Rate 123 H 143 H Pulse Rate from SpO2 Sensor 79 Pulse Rhythm Pulse Strength Respiratory Rate 21 Respiratory Effort / Characteristics Respiratory Depth Respiratory Pattern Blood Pressure 103/74 Blood Pressure Mean 81 Pulse Oximetry 98 Oxygen Delivery Method Sepsis Recent Fever Within 48 Hours Sepsis New/Unexplained Change in Mental Status Sepsis Action Taken by Nursing 10/24/23 14:00 10/24/23 14:06 10/24/23 14:15 Temperature Temperature Source Pulse Rate 123 H Pulse Rate from SpO2 Sensor Pulse Rhythm Pulse Strength Respiratory Rate 24 Respiratory Effort / Characteristics Respiratory Depth Respiratory Pattern Blood Pressure 121/70 Blood Pressure Mean 85 Pulse Oximetry 96 Oxygen Delivery Method Room Air Sepsis Recent Fever Within 48 Hours Sepsis New/Unexplained Change in Mental Status Sepsis Action Taken by Nursing 10/24/23 14:15 10/24/23 14:30 10/24/23 14:30 Temperature Temperature Source Pulse Rate 128 H 107 H Pulse Rate from SpO2 Sensor Pulse Rhythm Pulse Strength Respiratory Rate 22 24 Respiratory Effort / Characteristics Respiratory Depth Respiratory Pattern Blood Pressure 113/63 Blood Pressure Mean 75 Pulse Oximetry Oxygen Delivery Method Sepsis Recent Fever Within 48 Hours Sepsis New/Unexplained Change in Mental Status Sepsis Action Taken by Nursing 10/24/23 14:45 10/24/23 15:00 10/24/23 15:01 Temperature Temperature Source Pulse Rate 110 H 129 H 117 H Pulse Rate from SpO2 Sensor 110 H Pulse Rhythm Pulse Strength Respiratory Rate 24 22 20 Respiratory Effort / Characteristics Respiratory Depth Respiratory Pattern Blood Pressure Blood Pressure Mean Pulse Oximetry 93 Oxygen Delivery Method Sepsis Recent Fever Within 48 Hours Sepsis New/Unexplained Change in Mental Status Sepsis Action Taken by Nursing 10/24/23 15:01 10/24/23 15:15 10/24/23 15:15 Temperature Temperature Source Pulse Rate 140 H Pulse Rate from SpO2 Sensor 146 H Pulse Rhythm Pulse Strength Respiratory Rate 22 Respiratory Effort / Characteristics Respiratory Depth Respiratory Pattern Blood Pressure 104/71 129/62 Blood Pressure Mean 77 111 Pulse Oximetry 92 Oxygen Delivery Method Sepsis Recent Fever Within 48 Hours Sepsis New/Unexplained Change in Mental Status Sepsis Action Taken by Nursing Laboratory Data 10/24/23 13:30 10/24/23 13:30 Lab Results 10/24/23 10/24/23 Range/Units 13:30 13:50 WBC 10.64 (4.8-10.8) K/ul RBC 4.17 L (4.70-6.10) M/uL Hgb 10.3 L (14.0-18.0) g/dl Hct 33.5 L (42.0-52.0) % MCV 80.3 (80.0-100.0) fL MCH 24.7 L (25.0-34.0) pg MCHC 30.7 L (32.0-36.0) g/dL RDW Std Deviation 54.2 H (36.4-46.3) fL RDW Coeff of Alex 18.8 H (11.5-14.5) % Plt Count 440 H (130-400) K/uL MPV 9.6 (9.4-12.4) fL Immature Gran % (Auto) 0.8 % Neut % (Auto) 84.0 % Lymph % (Auto) 7.0 % Emanuel % (Auto) 3.1 % Eos % (Auto) 4.9 % Baso % (Auto) 0.2 % Neut # (Auto) 8.95 H (1.40-6.50) K/uL Lymph # (Auto) 0.74 L (1.20-3.40) K/uL Emanuel # (Auto) 0.33 (0.11-0.59) K/uL Eos # (Auto) 0.52 H (0.00-0.50) K/uL Baso # (Auto) 0.02 (0.00-0.20) K/uL Immature Gran # (Auto) 0.08 (0.01-0.20) K/uL PT 11.9 (9.0-12.0) Seconds INR 1.1 (0.9-1.1) Sodium 134 L (136-145) mmol/L Potassium 3.9 (3.5-5.1) mmol/L Chloride 101 (98-107) mmol/L Carbon Dioxide 26 (21-32) mmol/L Anion Gap 7 (3-11) BUN 14 (6-23) mg/dl Creatinine 0.77 (0.6-1.4) mg/dl Est Cr Clr Drug Dosing 124.1 ml/min Est GFR ( Amer) 115.1 ml/min Est GFR (Non-Af Amer) 99.3 ml/min BUN/Creatinine Ratio 18.2 (10-20) Glucose 139 H (70-99(Fasting)) mg/dl Lactate 2.7 H* (0.4-2.0) mmol/L Calcium 8.9 (8.6-10.3) mg/dl Magnesium 2.2 (1.7-2.4) mg/dl Total Bilirubin 0.5 (0.2-1.0) mg/dl AST 41 H (13-39) U/L ALT 28 (7-52) U/L Alkaline Phosphatase 74 (34-104) U/L Total Creatine Kinase 108 (30-223) U/L Troponin I High Sens 440.3 H* (0-20) pg/ml B-Natriuretic Peptide 357 H (0-100) pg/ml Total Protein 6.8 (6.0-8.3) gm/dl Albumin 2.9 L (3.4-5.0) gm/dl Globulin 3.9 (2.5-4.0) gm/dl Albumin/Globulin Ratio 0.7 L (0.9-2) Procalcitonin 0.11 (0-0.5) ng/ml TSH 1.833 (0.300-4.500) uIu/ml Digoxin < 0.3 L (0.8-2.0) ng/ml Adenovirus (PCR) Not Detected (NotDetected) B. pertussis DNA (PCR) Not Detected (NotDetected) B.parapertussis DNA PCR Not Detected (NotDetected) C. pneumoniae DNA (PCR) Not Detected (NotDetected) Coronavirus OC43 (PCR) Not Detected (NotDetected) Coronavirus HKU1 (PCR) Not Detected (NotDetected) Coronavirus 229E (PCR) Not Detected (NotDetected) SARS-CoV-2 (PCR) Not Detected (NotDetected) Coronavirus NL63 (PCR) Not Detected (NotDetected) Human Metapneumovir PCR Not Detected (NotDetected) Influenza Type A (PCR) Not Detected (NotDetected) Influenza Type B (PCR) Not Detected (NotDetected) M. pneumoniae (PCR) Not Detected (NotDetected) Parainfluenza 1 (PCR) Not Detected (NotDetected) Parainfluenza 2 (PCR) Not Detected (NotDetected) Parainfluenza 3 (PCR) Not Detected (NotDetected) Parainfluenza 4 (PCR) Not Detected (NotDetected) RSV (PCR) Not Detected (NotDetected) Entero/Rhino (PCR) Not Detected (NotDetected) Administered Medications Diltiazem HCl 125 mg/ Dextrose 125 mls @ 10 mls/hr IV .[id number] [facility]; Protocol Stop: 11/23/23 13:29 Last Titration: 10/24/23 14:41 Dose: 10 mg/hr, 10 mls/hr Documented By: SAGRARIO Co-signed By: YANNI Admin: 10/24/23 13:46 Dose: 5 mg/hr, 5 mls/hr Documented By: SAGRARIO Co-signed By: YANNI Discontinued Medications Aspirin (Aspirin Chew 324 Mg) 324 mg PO NOW STA Stop: 10/24/23 14:28 Last Admin: 10/24/23 14:37 Dose: 324 mg Documented By: SAGRARIO Diltiazem HCl (Diltiazem Hcl 5 Mg/Ml 5 Ml Vial) 10 mg IV NOW STA Stop: 10/24/23 13:30 Last Admin: 10/24/23 13:45 Dose: 10 mg Documented By: SAGRARIO Co-signed By: YANNI Furosemide (Furosemide 40 Mg/4 Ml Vial) 40 mg IV ONE ONE Stop: 10/24/23 14:28 Last Admin: 10/24/23 15:06 Dose: 40 mg Documented By: SAGRARIO Imaging Data Radiologist's Impression: Chest X-Ray 10/24/23 13:29 XR chest 1V portable CLINICAL HISTORY: weakness, swelling TECHNIQUE: Single frontal radiograph of the chest was obtained. Comparison: Comparison is made to chest radiograph 08/25/2023 FINDINGS: Degenerative changes are seen in the bilateral shoulders. Cardiomegaly is noted. The aortic arch is calcified. The lungs are clear. No evidence of pleural effusion or pneumothorax. IMPRESSION: No acute chest disease. ACT 112: Negative or not required by law. Electronically signed by: Ney Small M.D. 10/24/2023 1:53 PM Discharge Plan Visit Data Chief Complaint: Cardiac Assessment ED Provider: Nilesh Romo Discharge Problem: Atrial fibrillation with rapid ventricular response, Non-ST elevation ID (NSTEMI), Leg swelling Patient Disposition: Being Evaluated by Hospitalist Forms Stand Alone Forms: My [facility] Prescriptions Prescriptions: No Action sildenafil (pulm.hypertension) 20 mg tablet 20 mg PO BID Rx Instructions: Take in AM & NOON rosuvastatin 5 mg tablet 5 mg PO QAM nitroglycerin 0.4 mg tablet, sublingual 0.4 mg sublingual .PRN/UD PRN (Reason: Chest Pain) Rx Instructions: NEEDED FOR CHEST PAIN : ONE TABLET UNDER THE TONGUE EVERY 5 MINUTES UP TO THREE DOSES. omeprazole 40 mg capsule,delayed release(DR/EC) 40 mg PO DAILYBB aspirin [Bob Low Dose Aspirin] 81 mg Tablet,Delayed Release (Dr/Ec) 81 mg PO QAM Spiriva Respimat 2.5 mcg/actuation mist 2 inh INHALATION QAM sildenafil (pulm.hypertension) 20 mg tablet 40 mg PO HS alendronate 70 mg tablet 70 mg PO WK Rx Instructions: TAKES ON FRIDAYS Eliquis 5 mg tablet 5 mg PO BID Qty: 60 0RF sulfasalazine 500 mg tablet 500 mg PO QAM ondansetron HCl 4 mg tablet 4 mg PO Q8H PRN (Reason: NAUSEA/VOMITING) metoprolol succinate 100 mg tablet extended release 24 hr 100 mg PO BID Rx Instructions: TOTAL DOSE 125 MG--TAKES WITH 25 MG TAB. digoxin 125 mcg (0.125 mg) tablet 0.125 mcg PO DAILY cholecalciferol (vitamin D3) [Vitamin D3] 10 mcg (400 unit) Capsule 10 mcg PO DAILY escitalopram oxalate 10 mg tablet 10 mg PO QAM Jardiance 10 mg tablet 10 mg PO QAM Entresto 24-26 mg tablet 1 tab PO BID Kevzara 200 mg/1.14 mL pen injector 200 mg SUBCUT .[id number] Rx Instructions: PER PT "THINK IT'S THIS WEEK, WRITTEN ON CALENDAR". magnesium oxide 400 mg (241.3 mg magnesium) Tablet 400 mg PO BID 15 Days Qty: 30 1RF oxycodone 5 mg Tablet 5 mg PO Q6H PRN (Reason: pain) Qty: 10 0RF prednisone 5 mg tablet 5 - 10 mg PO UD Qty: 60 0RF Rx Instructions: 20mg po daily x 2 days, then 10mg po daily x 2 days, then 5mg po daily indefinitely furosemide 20 mg tablet 40 mg PO BID 15 Days Qty: 60 1RF spironolactone 25 mg tablet 25 mg PO QAM 30 Days Qty: 30 0RF Referrals Referrals: Anahy Grayson MD [Primary Care Provider] -
[2023-10-24 14:53] LABS: Adenovirus PCR Not Detected (NotDetected); Bordetella parapertussis PCR Not Detected (NotDetected); Bordetella pertussis PCR Not Detected (NotDetected); Chlamydia pneumoniae PCR Not Detected (NotDetected); Coronavirus 229E PCR Not Detected (NotDetected); Coronavirus CoV-2 (COVID19)PCR Not Detected (NotDetected); Coronavirus HKU1 PCR Not Detected (NotDetected); Coronavirus NL63 PCR Not Detected (NotDetected); Coronavirus OC43PCR Not Detected (NotDetected); Human Metapneumovirus PCR Not Detected (NotDetected); Influenza A PCR Not Detected (NotDetected); Influenza B PCR Not Detected (NotDetected); Mycoplasma pneumoniae PCR Not Detected (NotDetected); Parainfluenza Virus 1 PCR Not Detected (NotDetected); Parainfluenza Virus 2 PCR Not Detected (NotDetected); Parainfluenza Virus 3 PCR Not Detected (NotDetected); Parainfluenza Virus 4 PCR Not Detected (NotDetected); Respiratory Syncytial VirusPCR Not Detected (NotDetected); Rhinovirus/Enterovirus PCR Not Detected (NotDetected)
--- NOTE | 2023-10-24 14:55 | History & Physical Report ---
Date of Service October 24, 2023 Assessment & Plan (1) Atrial fibrillation with rapid ventricular response: (2) Chronic combined systolic and diastolic CHF (congestive heart failure): (3) HTN (hypertension): (4) PAD (peripheral artery disease): (5) HFrEF (heart failure with reduced ejection fraction): (6) CAD (coronary artery disease): Plan: - Admit to tele - Started on cardizem gtt, HR is improving, now into the 110s, Considering medication compliance? Patient reports that he is taking all of his meds, missed them this morning though. - Continue on all home meds and give doses now - Got 1 dose of Mag [address] in, will give another - Had bout of Vtach with 14 beat run in the ER, will monitor, if meds do not work can consider amiodarone gtt. - Digoxin is nondetectable today - RVP is negative - Troponin elevated at 440.3, repeat pending, will trend, Daily EKG ordered - BNP is mildly elevated at 357, Continue home Lasix, was administered IV Lasix here in the ER already putting out adequate urine outs - Lactic acid 2.7, Trend - Continue eliquis - Most recent echo July 2023 - EF of 50 to 55%, mild LVH, trace MR, TR, no pulmonary hypertension noted-Repeat ordered for today - Patient follows with Dr. Allen as outpatient, will consult cards (7) Hepatitis C: Plan: -Status posttreatment (8) COPD (chronic obstructive pulmonary disease): Plan: -Does not require supplemental O2 at baseline -No acute exacerbation -RVP is negative (9) Rheumatoid arthritis: Plan: -Continue prednisone 5 mg daily, chronic steroid use DVT ppx: teds, scds Lines: PIV x 1 FEN/GI: Heart healthy diet CODE: Full code Dispo: From home, likely to remain in the hospital x 1-2 days A total of 82 minutes were spent with greater than 50% of that time face to face with the patient, personally reviewing all current laboratories, imaging studies, past medication reconciliation, outpatient chart review, and discussion with specialists to collaborate care for the patient with attending. Please see attending documentation for corrections and/or additions. History of Present Illness Chief Complaint: Chest pain, weakness Primary Care Provider: Anahy Grayson MD This is a 58 yo male with PMHx significant for COPD, lung nodules, peripheral artery disease, chronic systolic CHF, history of SVT, small vessel disease, frequent PVCs, persistent atrial fibrillation on eliquis, GERD, degenerative's disease, scoliosis, osteoporosis, rheumatoid arthritis involving multiple sites with positive rheumatoid factor, immunodeficiency due to drugs, moderate episode of recurrent depression, erectile dysfunction, tobacco use disorder, hepatitis C virus infection cured after antiviral drug therapy, long-term systemic steroid user. Patient presents today with chest pain and R shoulder pain. Patient was previously discharged from our facility here on 08/30/23 and discharged to SNF where he was there for about 1 week. Pt states he has been living with his mother since then and feels that he might not have been ready for discharge from rehab. He states that he has been weak ever since his previous hospital stay. Specifically has worsening weakness in the past 2 weeks, more so in the past 2 days. Last evening he slightly fell out of the right side of his wheelchair causing injury to his arm. Patient states everything is sore today. He last took a Percocet yesterday. This morning he cannot recall if he took any of his home medications as it was quite confusing today. His chest pain prompted him to call 911 where an ambulance presented to the home and brought him here to the ER. Patient has not recently required any home nitroglycerin tablets. He states that he has been eating and drinking well, no abdominal complaints, no fevers, chills or sweats. His right toe status post hospital stay last month is healing well. He does note some increased edema in bilateral lower extremities. He was given diuretic here in the ER, at home uses Lasix 40 mg p.o. daily Allergies Allergy/AdvReac Type Severity Reaction Status Date / Time No Known Allergies Allergy Verified 10/24/23 16:32 Home Medications Medication Instructions Recorded Confirmed Type aspirin 81 mg tablet,delayed 81 mg PO QAM 04/04/21 10/24/23 History release (Bob Low Dose Aspirin) omeprazole 40 mg capsule,delayed 40 mg PO DAILYBB 04/04/21 10/24/23 History release nitroglycerin 0.4 mg sublingual 0.4 mg sublingual .PRN/UD PRN 08/27/21 10/24/23 History tablet Chest Pain rosuvastatin 5 mg tablet 5 mg PO QAM 08/27/21 10/24/23 History sildenafil (pulm.hypertension) 20 20 mg PO BID 08/27/21 10/24/23 History mg tablet sildenafil (pulm.hypertension) 20 40 mg PO HS 04/06/22 10/24/23 History mg tablet tiotropium bromide 2.5 2 inh inhalation QAM 04/06/22 10/24/23 History mcg/actuation mist for inhalation (Spiriva Respimat) alendronate 70 mg tablet 70 mg PO WK 07/05/22 10/24/23 History apixaban 5 mg tablet (Eliquis) 5 mg PO BID #60 tabs 07/10/22 10/24/23 Rx cholecalciferol (vitamin D3) 10 10 mcg PO DAILY 08/13/23 10/24/23 History mcg (400 unit) capsule (Vitamin D3) digoxin 125 mcg (0.125 mg) tablet 0.125 mcg PO DAILY 08/13/23 10/24/23 History empagliflozin 10 mg tablet 10 mg PO QAM 08/13/23 10/24/23 History (Jardiance) escitalopram oxalate 10 mg tablet 10 mg PO QAM 08/13/23 10/24/23 History metoprolol succinate 100 mg 125 mg PO BID 08/13/23 10/24/23 History tablet,extended release 24 hr ondansetron HCl 4 mg tablet 4 mg PO Q8H PRN NAUSEA/VOMITING 08/13/23 10/24/23 History sacubitril 24 mg-valsartan 26 mg 1 tab PO BID 08/13/23 10/24/23 History tablet (Entresto) sarilumab 200 mg/1.14 mL 200 mg subcut .[id number] 08/13/23 10/24/23 History subcutaneous pen injector (Kevzara) sulfasalazine 500 mg tablet 500 mg PO QAM 08/13/23 10/24/23 History furosemide 20 mg tablet 40 mg (2 x 20 mg) PO BID 15 days 08/30/23 10/24/23 Rx #60 tabs magnesium oxide 400 mg (241.3 mg 400 mg PO BID 15 days #30 tabs 08/30/23 10/24/23 Rx magnesium) tablet spironolactone 25 mg tablet 25 mg PO QAM 30 days #30 tabs 08/30/23 10/24/23 Rx duloxetine 30 mg capsule,delayed 30 mg PO QAM 10/24/23 10/24/23 History release hydrocodone 10 mg-acetaminophen 1 tab PO Q6H PRN Pain 10/24/23 10/24/23 History 325 mg tablet prednisone 5 mg tablet 5 mg PO UD RHEUMATOID ARTHRITIS 10/24/23 10/24/23 History Past Med/Surg History Problem List Medical non-compliance COPD (chronic obstructive pulmonary disease) Leg swelling (Acute) Atrial fibrillation with rapid ventricular response (Acute) Drug use Syncope and collapse Status post incision and drainage Osteomyelitis of great toe of right foot Encounter for pre-operative examination Toe pain, right Open wound of right great toe with damage to nail Depressive disorder Thought disorder (Acute) Necrosis of toe (Acute) Elevated troponin (Acute) Permanent atrial fibrillation Chronic combined systolic and diastolic CHF (congestive heart failure) Raynauds disease PAD (peripheral artery disease) HTN (hypertension) Hepatitis C Acute on chronic heart failure with reduced ejection fraction and diastolic dysfunction HFrEF (heart failure with reduced ejection fraction) Anemia (Acute) Lung nodules LEVIN (dyspnea on exertion) (Acute) Elevated troponin (Acute) Elevated brain natriuretic peptide (BNP) level (Acute) Congestive heart failure (Acute) Atrial fibrillation with rapid ventricular response (Acute) COVID CAD (coronary artery disease) SOB (shortness of breath) Chest pain Dyspnea Cardiomyopathy NSTEMI (non-ST elevated myocardial infarction) (Acute) Cavitary lesion of lung Systolic heart failure Abnormal echocardiogram Elevated troponin Abnormal CT of the chest (Acute) Chronic steroid use (Chronic) Long-term use of high-risk medication Rheumatoid arthritis (Chronic) Pulmonary nodule (Acute) SOB (shortness of breath) Non-ST elevation MN (NSTEMI) (Acute) GERD (gastroesophageal reflux disease) Osteoarthritis of right knee (Chronic) Status post right knee replacement (Acute) Medical History (Updated 10/25/23 @ 12:34 by Valentina Ceron PA-C) Pre-diabetes Erectile dysfunction Tobacco use disorder Surgical History History of cardiac cath History of colonoscopy Hx of tonsillectomy Family History Other Heart disease Hypertension Social History Smoking Status: Current every day smoker Tobacco Type: Cigarettes Cigarettes Per Day: 1; Second Hand Exposure: Yes; Do You Dip or Chew Tobacco: No; Hx Alcohol Use: No Hx Substance Use: No Preferred Language: Slovenian Communication Ability: Effective Radar Tester Required: No Beliefs That Will Affect Care: None Current Living Situation: Family and Significant Other Current Living Situation Comment: Lives at home with girlfriend Hayley, & their child Danica Feels Safe at Home: Yes Assistive Devices: Cane, Walker and Wheelchair Review of Systems Review of Systems: Constitutional: No fever, sweats or chills, + generalized weakness Eyes: No diplopia, no worsening or blurred vision ENT: normal hearing, no trouble swallowing Respiratory: No cough, sputum, dyspnea at rest or on exertion Cardiovascular: + chest pain, + chest heaviness palpitations, denies pain radiation Abdomen: No pain, nausea, vomiting, diarrhea or constipation Musculoskeletal: + Right shoulder pain, status post wheelchair and injury last night, otherwise no joint pain, calf pain, + lower leg swelling Neurologic: + Generalized weakness, numbness/tingling, + uses wheelchair, + balance problems Psychiatric: No anxiety or depression Skin: No rash or itch Physical Exam Physical Exam: General: awake, alert, no apparent distress, white male Head: Normocephalic, atraumatic ENT: PERRL, EOMI, no pharyngeal exudate, mucous membranes moist Chest: Clear to auscultation, on room air, no adventitious breath sounds Cardiac: Irregularly irregular, heart rate from 110s to 140s at bedside, increased towards the 140s with sitting up in bed, no murmur, no JVD, normal peripheral pulses, good capillary refill Abdominal: NABS x 4 quadrants, soft, nondistended, nontender to palpation, no rebound or guarding Extremities: Normal inspection, +1 peripheral edema BLE, no erythema, healing right great toe incision, calfs nontender to palpation, right arm with some areas of ecchymosis Psych: Normal mood and affect Neuro: AAO x 3, strength intact bilaterally and rated 4/5, no motor deficits, speech is clear, no peripheral sensory deficits Results & Data Results & Data Vital Signs (Past 12 Hours) Vital Signs Temp Pulse Resp BP Pulse Ox O2 Del Method 10/24/23 14:30 113/63 10/24/23 14:30 107 H 24 10/24/23 14:15 128 H 22 10/24/23 14:15 121/70 10/24/23 14:06 96 Room Air 10/24/23 14:00 123 H 24 10/24/23 13:53 103/74 10/24/23 13:53 143 H 21 98 10/24/23 13:51 123 H 10/24/23 13:45 118 H 20 10/24/23 13:41 130 H 22 97 10/24/23 13:23 37.8 C H 131 H 20 130/75 95 Room Air Laboratory Results 10/24/23 14:24 Aerobic Blood Culture - Pending Blood Anaerobic Blood Culture - Pending 10/24/23 14:04 Aerobic Blood Culture - Pending Blood Anaerobic Blood Culture - Pending 10/24/23 10/24/23 13:50 13:30 WBC 10.64 RBC 4.17 L Hgb 10.3 L Hct 33.5 L MCV 80.3 MCH 24.7 L MCHC 30.7 L RDW Std Deviation 54.2 H RDW Coeff of Alex 18.8 H Plt Count 440 H MPV 9.6 Immature Gran % (Auto) 0.8 Neut % (Auto) 84.0 Lymph % (Auto) 7.0 [place] % (Auto) 3.1 Eos % (Auto) 4.9 Baso % (Auto) 0.2 Neut # (Auto) 8.95 H Lymph # (Auto) 0.74 L [place] # (Auto) 0.33 Eos # (Auto) 0.52 H Baso # (Auto) 0.02 Immature Gran # (Auto) 0.08 PT 11.9 INR 1.1 Sodium 134 L Potassium 3.9 Chloride 101 Carbon Dioxide 26 Anion Gap 7 BUN 14 Creatinine 0.77 Est Cr Clr Drug Dosing 124.1 Est GFR ( Amer) 115.1 Est GFR (Non-Af Amer) 99.3 BUN/Creatinine Ratio 18.2 Glucose 139 H Lactate 2.7 H* Calcium 8.9 Magnesium 2.2 Total Bilirubin 0.5 AST 41 H ALT 28 Alkaline Phosphatase 74 Total Creatine Kinase 108 Troponin I High Sens 440.3 H* B-Natriuretic Peptide 357 H Total Protein 6.8 Albumin 2.9 L Globulin 3.9 Albumin/Globulin Ratio 0.7 L Procalcitonin 0.11 TSH 1.833 Digoxin < 0.3 L Adenovirus (PCR) Not Detected B. pertussis DNA (PCR) Not Detected B.parapertussis DNA PCR Not Detected C. pneumoniae DNA (PCR) Not Detected Coronavirus OC43 (PCR) Not Detected Coronavirus HKU1 (PCR) Not Detected Coronavirus 229E (PCR) Not Detected SARS-CoV-2 (PCR) Not Detected Coronavirus NL63 (PCR) Not Detected Human Metapneumovir PCR Not Detected Influenza Type A (PCR) Not Detected Influenza Type B (PCR) Not Detected M. pneumoniae (PCR) Not Detected Parainfluenza 1 (PCR) Not Detected Parainfluenza 2 (PCR) Not Detected Parainfluenza 3 (PCR) Not Detected Parainfluenza 4 (PCR) Not Detected RSV (PCR) Not Detected Entero/Rhino (PCR) Not Detected Diagnostic Findings Chest X-Ray 10/24/23 13:29 XR chest 1V portable CLINICAL HISTORY: weakness, swelling TECHNIQUE: Single frontal radiograph of the chest was obtained. Comparison: Comparison is made to chest radiograph 08/25/2023 FINDINGS: Degenerative changes are seen in the bilateral shoulders. Cardiomegaly is noted. The aortic arch is calcified. The lungs are clear. No evidence of pleural effusion or pneumothorax. IMPRESSION: No acute chest disease. ACT 112: Negative or not required by law. Electronically signed by: Ney Small M.D. 10/24/2023 1:53 PM ECG Additional Comments: Reviewed personally showing Afib RVR, No ST wave inversions or signs of ischemia Code Status & VTE Plan Code Status Full code-discussed with patient at bedside Supervising Physician Co-Signing Physician Notes delayed entry date of service noted above Attending Addendum: care coordinated with SHAHEED Nivia Sandoval please refer to her notes for full details, I agree with her notes patient seen and examined, records reviewed by myself as well on exam, patient seen resting in bed, comfortable reports palpitations, mild chest discomfort no other symptoms VS noted and reviewed oriented x3, not in distress, speaks in sentences with no effort nor accessory muscle use tachycardic, regular rhythm, no murmurs clear breath sounds bilaterally non distended, soft, nontender no bipedal edema, erythema, warmth no neuro deficits all noted and reviewed including below ASSESSMENT AND PLAN> Afib in RVR on Diltiazem drip continue usual meds other diagnoses and plan of care as per SHAHEED Castillo's notes Pelon Hoyos MD
[2023-10-24] MEDS: FUROSEMIDE 40 MG/4 ML VIAL IV ONE (15:06)
[2023-10-24] MEDS: MAGNESIUM SULFATE / D5W 1 GM/100 ML BAG IV STA (16:14)
[2023-10-24] MEDS: DIGOXIN 0.125 MG TAB PO ONE (16:15)
--- NOTE | 2023-10-24 16:54 | Electrocardiogram Report ---
Test Reason : Blood Pressure : / mmHG Vent. Rate : 123 BPM Atrial Rate : 000 BPM P-R Int : 000 ms QRS Dur : 086 ms QT Int : 310 ms P-R-T Axes : 000 097 067 degrees QTc Int : 443 ms Atrial fibrillation with rapid ventricular response with premature ventricular or aberrantly conducte d complexes Rightward axis Low voltage QRS Possible Old Septal infarct Abnormal ECG When compared with ECG of 25-AUG-2023 14:26, Borderline Criteria for Septal infarct is now Present Confirmed by Logan Staley ([id number]) on 10/24/2023 4:53:24 PM Referred By: REFERRED SELF Confirmed By:Logan Staley
[2023-10-24] MEDS ORDERED: ACETAMINOPHEN 325 MG TAB PO PRN (17:08)
[2023-10-24] MEDS ORDERED: ONDANSETRON INJ 2 MG/ML 2 ML VIAL IV PRN (17:08)
[2023-10-24] MEDS: METOPROLOL SUCC 25MG EXT REL TAB PO STA (17:17)
[2023-10-24 19:14] LABS: Appearance Urine Clear (Clear); Bacteria Urine Automated None Seen (None Seen); Bilirubin Urine Negative (Negative); Blood Urine Negative (Negative); Cast Urine Automated 0-2 /lpf (0-2); Color Urine Yellow; Epithelial Cell Urine Auto 0-2 /hpf (0-2); Glucose Urine UA 3+ (Negative); Ketones Urine Negative (Negative); Leukocyte Esterase Urine Negative (Negative); Nitrite Urine Negative (Negative); Protein Urine Trace (Negative); RBC Urine Automated 0-2 /hpf (0-2); Specific Gravity Urine 1.019 (1.000-1.030); Urobilinogen Urine Negative (Negative); WBC Urine Automated 0-5 /hpf (0-5)
[2023-10-24] MEDS: STAT IV Infusion **Titration per Protocol STA (20:27)
[2023-10-24] MEDS: ACETAMINOPHEN 500 MG TAB PO PRN (23:06)
[2023-10-24] MEDS: oxyCODONE HCL IR 5 MG TAB (IMMEDIATE RELEASE) PO PRN (23:33)
[2023-10-24] MEDS: LORATADINE 10 MG TAB PO ONE (23:34)
--- NOTE | 2023-10-25 07:44 | Electrocardiogram Report ---
Test Reason : Blood Pressure : / mmHG Vent. Rate : 082 BPM Atrial Rate : 208 BPM P-R Int : 000 ms QRS Dur : 094 ms QT Int : 382 ms P-R-T Axes : 000 105 140 degrees QTc Int : 446 ms Atrial fibrillation with premature ventricular or aberrantly conducted complexes Rightward axis Pulmonary disease pattern Nonspecific ST and T wave abnormality Old Septal infarct Abnormal ECG When compared with ECG of 24-OCT-2023 13:24, Vent. rate has decreased BY 41 BPM Confirmed by Logan Staley ([id number]) on 10/25/2023 7:43:56 AM Referred By: REFERRED SELF Confirmed By:Logan Staley
[2023-10-25 07:58] LABS: Hematocrit (blood only) 36.7 % (42.0-52.0); Hemoglobin 11.2 g/dl (14.0-18.0); Mean Corpuscular Hemoglobin 24.5 pg (25.0-34.0); Mean Corpuscular Hgb Conc 30.5 g/dL (32.0-36.0); Mean Corpuscular Volume 80.3 fL (80.0-100.0); Mean Platelet Volume 9.2 fL (9.4-12.4); Platelet Count 432 K/uL (130-400); RDW Coefficient of Variation 18.7 % (11.5-14.5); RDW Standard Deviation 53.5 fL (36.4-46.3); Red Blood Count 4.57 M/uL (4.70-6.10); White Blood Count 7.81 K/ul (4.8-10.8)
[2023-10-25 08:16] LABS: BUN Creatinine Ratio 24.6 (10-20); Calcium 8.6 mg/dl (8.6-10.3); Creatinine Clr Calc Pharmacy 135.6 ml/min; Est GFR (African American) 120.4 ml/min; Est GFR (Non-African American) 103.9 ml/min; Potassium 3.8 mmol/L (3.5-5.1)
[2023-10-25] MEDS ORDERED: NITROGLYCERIN SL 0.4 MG/TAB TAB SL PRN (10:33)
[2023-10-25] MEDS: DULoxetine HCL 30 MG CAP PO SCH (11:18)
[2023-10-25] MEDS: METOPROLOL SUCC 50MG EXT REL TAB PO SCH (11:18)
[2023-10-25] MEDS: predniSONE 5 MG TAB PO SCH (11:20)
[2023-10-25] MEDS: FUROSEMIDE 40 MG TAB PO SCH (11:20)
[2023-10-25] MEDS: APIXABAN 5 MG TABLET PO SCH (11:20)
[2023-10-25] MEDS: MAGNESIUM OXIDE 400 MG TAB PO SCH (11:20)
[2023-10-25] MEDS: SPIRONOLACTONE 25 MG TAB PO SCH (11:21)
[2023-10-25] MEDS: VALSARTAN/SACUBITRIL 26/24MG TAB PO SCH (11:21)
[2023-10-25] MEDS: ASPIRIN 81 MG ECTAB PO SCH (11:21)
[2023-10-25] MEDS: sulfaSALAzine 500 MG TABLET PO SCH (11:22)
--- NOTE | 2023-10-25 12:00 | Cardiology Consultation ---
Date of Consultation October 25, 2023 Assessment & Plan (1) Atrial fibrillation with rapid ventricular response: (2) Elevated troponin: (3) Chronic combined systolic and diastolic CHF (congestive heart failure): (4) Medical non-compliance: Plan Patient admitted for ongoing weakness, atypical chest pain, and findings of afib RVR. Multiple recent admissions for CHF, afib RVR, and gangrenous toe s/p amputation. Patient has a long history of medication non compliance. On admission elevated ventricular rates with persistent afib. Digoxin level was undetectable Oral home dose metoprolol 125 mg BID resumed. Resume digoxin 125 mcg. Wean off IV diltiazem gtt. HS troponin elevated, likely due to afib RVR. Echo repeated this morning with preserved EF, no wall motion abnormalities. Recommend resuming all home/oral cardiac medications including ASA, statin, Eliquis, Entresto, metoprolol, digoxin. Sildenafil was placed on hold due to CP and elevated troponin in case SL nitro needs to be used. PT/OT recommended. Case discussed with Dr. Alejandro Jarrett spent a total of 60 minutes on the date of service in preparation, delivery, and documentation of the care provided to this patient, excluding any time spent in the performance of separately billed services. Valentina Ceron PA-C Department of Cardiology, [facility] This chart was completed in part utilizing Speech Voice Recognition Software. Grammatical errors, random word insertions, pronoun errors, and incomplete sentences are an occasional consequence of this system due to software limitations, ambient noise, and hardware issues. Any formal questions or concerns about the content, text, or information contained within the body of this dictation should be directly addressed to the provider for clarification. Supervising Physician Co-Signing Physician Notes Patient was seen and personally examined. Full assessment and plan as outlined by advanced provider above. Care and management personally endorsed 58-year-old male with complex history including multiple hospitalizations recently presents noted a fall evening prior to admission. No noted syncope. Atypical chest pain and fatigue on presentation. Patient found to be in atrial fibrillation with rapid response by ambulance crew. Treated with IV diltiazem for rate control Heart rates are improved after initiating usual medications. Digoxin nondetectable suggesting lapse in medical therapy Will resume metoprolol succinate 125 mg twice per day Additional digoxin load 0.25 mg x 1 now with patient to continue usual dosing 0.125 daily Discontinue IV diltiazem Continue anticoagulation with apixaban I spent a total of 20 minutes on the date of service in preparation, delivery, and documentation of the care provided to this patient, excluding any time spent in the performance of separately billed services. This chart was completed in part utilizing Speech Voice Recognition Software. Grammatical errors, random word insertions, pronoun errors, and incomplete sentences are an occasional consequence of this system due to software limitations, ambient noise, and hardware issues. Any formal questions or concerns about the content, text, or information contained within the body of this dictation should be directly addressed to the provider for clarification. History of Present Illness Reason for Consultation: Weakness; Afib RVR; CP Requesting Physician: Dr. Hoyos Attending Physician: Dr. Allen History of Present Illness Patient is a complex 58 year old male, known to [facility]. History includes: 1. Nonobstructive CAD per cardiac catheterization 04/20/2021 at [facility] with Dr. Kiara guy. Patent coronary anatomy, RCA appears to have a nonobstructive ulcerated plaque in its mid segment, treated medically, added plavix 2. Mildly reduced LV systolic function per echo 04/05/2021 [facility], LVEF 46% 1. H/o tachycardic induced cardiology with LVEF 25-30% in the setting of AF RVR 06/2022 3. Paroxysmal atrial fib now Persistent afib, [id number] score of 3 (HTN, CAD,CHF) 1. Initial diagnosis complicated by acute HFrEF (LVEF of 25-30%) in the setting of RVR, Hospitalized from 07/05-07/14/2022 at [facility]. S/p DIEGO guided DCCV 07/12/2022. Interval improvement in LVEF per most recent echo in July 2023 4. Frequent PSVT, 14.9% per zio 06/2021 5. Multiple pulmonary nodules noted on CTA of the chest 03/2021- following with Dr. Cuevas pulmonary 6. History of IV drug use 7. Rheumatoid arthritis- follows with rheumatology 1. Enbrel discontinued 07/2022 due to CHF. 8. Hepatitis-C, status post treatment 9. Severe Raynaud's disease with gangrene of the 4th finger, following with rheum- on Revatio 10. Pulmonary disease a. Chronic tobacco use b. History of exposure to pesticides with agricultural c. Reports exposure to asbestos while currently working in [employer]- following with Pulmonary, status post lung biopsy Patient had had multiple admissions over the last few months. Records reviewed in detail. Most recent admission in July/August 2023 for osteomyelitis and gangrenous right great toe s/p partial amputation. Cardiology was consulted to manage medications for afib RVR, CHF. He was discharged on appropriate medical therapies to nursing facility/rehab. Patient reports rehab did not go well. He returned home to live with his mother 1 week later. Since rehab discharge, patient reports ongoing weakness, fatigue. Yesterday he developed right sided chest pain and right shoulder pain and came to the ER for evaluation. Upon arrival, patient was somewhat confused about taking his medications. Unsure regarding compliance. Upon arrival, afib noted (chronic) and rates were elevated. Digoxin level was low, suggesting non compliance. He was started on oral home medications along with IV diltiazem. HS troponin elevated at 440 and 446. EKG on admission demonstrated AFib with RVR without acute ischemic changes. Patient reports chest pain resolved upon admission. He has not needed any SL nitro. At time of consult, patient resting comfortably in bed. Just worked with physical therapy. Notes ongoing weakness and fatigue. No exertional chest pain. No significant dyspnea. Allergies Allergy/AdvReac Type Severity Reaction Status Date / Time No Known Allergies Allergy Verified 10/24/23 16:32 Home Medications Medication Instructions Recorded Confirmed Type aspirin 81 mg tablet,delayed 81 mg PO QAM 04/04/21 10/24/23 History release (Bob Low Dose Aspirin) omeprazole 40 mg capsule,delayed 40 mg PO DAILYBB 04/04/21 10/24/23 History release nitroglycerin 0.4 mg sublingual 0.4 mg sublingual .PRN/UD PRN 08/27/21 10/24/23 History tablet Chest Pain rosuvastatin 5 mg tablet 5 mg PO QAM 08/27/21 10/24/23 History sildenafil (pulm.hypertension) 20 20 mg PO BID 08/27/21 10/24/23 History mg tablet sildenafil (pulm.hypertension) 20 40 mg PO HS 04/06/22 10/24/23 History mg tablet tiotropium bromide 2.5 2 inh inhalation QAM 04/06/22 10/24/23 History mcg/actuation mist for inhalation (Spiriva Respimat) alendronate 70 mg tablet 70 mg PO WK 07/05/22 10/24/23 History apixaban 5 mg tablet (Eliquis) 5 mg PO BID #60 tabs 07/10/22 10/24/23 Rx cholecalciferol (vitamin D3) 10 10 mcg PO DAILY 08/13/23 10/24/23 History mcg (400 unit) capsule (Vitamin D3) digoxin 125 mcg (0.125 mg) tablet 0.125 mcg PO DAILY 08/13/23 10/24/23 History empagliflozin 10 mg tablet 10 mg PO QAM 08/13/23 10/24/23 History (Jardiance) escitalopram oxalate 10 mg tablet 10 mg PO QAM 08/13/23 10/24/23 History metoprolol succinate 100 mg 125 mg PO BID 08/13/23 10/24/23 History tablet,extended release 24 hr ondansetron HCl 4 mg tablet 4 mg PO Q8H PRN NAUSEA/VOMITING 08/13/23 10/24/23 History sacubitril 24 mg-valsartan 26 mg 1 tab PO BID 08/13/23 10/24/23 History tablet (Entresto) sarilumab 200 mg/1.14 mL 200 mg subcut .[id number] 08/13/23 10/24/23 History subcutaneous pen injector (Juliana) sulfasalazine 500 mg tablet 500 mg PO QAM 08/13/23 10/24/23 History furosemide 20 mg tablet 40 mg (2 x 20 mg) PO BID 15 days 08/30/23 10/24/23 Rx #60 tabs magnesium oxide 400 mg (241.3 mg 400 mg PO BID 15 days #30 tabs 08/30/23 10/24/23 Rx magnesium) tablet spironolactone 25 mg tablet 25 mg PO QAM 30 days #30 tabs 08/30/23 10/24/23 Rx duloxetine 30 mg capsule,delayed 30 mg PO QAM 10/24/23 10/24/23 History release hydrocodone 10 mg-acetaminophen 1 tab PO Q6H PRN Pain 10/24/23 10/24/23 History 325 mg tablet prednisone 5 mg tablet 5 mg PO UD RHEUMATOID ARTHRITIS 10/24/23 10/24/23 History Patient History Medical History (Updated 10/25/23 @ 12:34 by Valentina Ceron PA-C) Pre-diabetes Erectile dysfunction Tobacco use disorder Surgical History History of cardiac cath History of colonoscopy Hx of tonsillectomy Family History Other Heart disease Hypertension Social History Smoking Status: Current every day smoker Tobacco Type: Cigarettes Cigarettes Per Day: 1; Second Hand Exposure: Yes; Do You Dip or Chew Tobacco: No; Hx Alcohol Use: No Hx Substance Use: No Preferred Language: Uzbek Communication Ability: Effective Microfilm Processor Required: No Beliefs That Will Affect Care: None Current Living Situation: Family and Significant Other Current Living Situation Comment: Lives at home with girlfriend Hayley, & their child Danica Feels Safe at Home: Yes Assistive Devices: Cane, Walker and Wheelchair Review of Systems Review of Systems: All systems reviewed & are unremarkable except as noted in HPI & below Physical Exam Constitutional: WD/WN, vitals as above well developed; no acute distress Neck: trachea midline, no thyromegaly Respiratory: normal respiratory effort Auscultation: lungs clear to auscultation bilaterally Cardiovascular: Rate/Rhythm: + irregularly irregular Heart Sounds: + murmur (II/ systolic murmur) Vessels: no JVD Extremities: + edema (Trace ankle and pretibial edema) Gastrointestinal (Abdomen): normal bowel sounds, soft, nontender, no hepatosplenomegaly Neurologic: PERRL, EOMI, accommodation nl, no face palsy, no dysarthria Psychiatric: A+Ox3, euthymic affect Results & Data Vital Signs (Past 12 Hours) Vital Signs Temp Pulse Resp BP Pulse Ox O2 Del Method 10/25/23 07:59 36.9 C 83 18 133/86 Room Air 10/25/23 03:05 36.6 C 87 16 111/71 95 Room Air Laboratory Results Cardiac Enzymes 10/24/23 10/24/23 Range/Units 13:30 16:10 AST 41 H (13-39) U/L Troponin I High Sens 440.3 H* 446.5 H* (0-20) pg/ml B-Natriuretic Peptide 357 H (0-100) pg/ml Coagulation 05/29/24 Range/Units 13:30 PT 11.9 (9.0-12.0) Seconds B-Natriuretic Peptide 357 H (0-100) pg/ml CBC 10/24/23 10/25/23 Range/Units 13:30 07:27 WBC 10.64 7.81 (4.8-10.8) K/ul RBC 4.17 L 4.57 L (4.70-6.10) M/uL Hgb 10.3 L 11.2 L (14.0-18.0) g/dl Hct 33.5 L 36.7 L (42.0-52.0) % Plt Count 440 H 432 H (130-400) K/uL Neut # (Auto) 8.95 H (1.40-6.50) K/uL Lymph # (Auto) 0.74 L (1.20-3.40) K/uL [place] # (Auto) 0.33 (0.11-0.59) K/uL Eos # (Auto) 0.52 H (0.00-0.50) K/uL Baso # (Auto) 0.02 (0.00-0.20) K/uL Comprehensive Metabolic Panel 10/24/23 10/25/23 Range/Units 13:30 07:27 Sodium 134 L 134 L (136-145) mmol/L Potassium 3.9 3.8 (3.5-5.1) mmol/L Chloride 101 100 (98-107) mmol/L Carbon Dioxide 26 28 (21-32) mmol/L BUN 14 17 (6-23) mg/dl Creatinine 0.77 0.69 (0.6-1.4) mg/dl Glucose 139 H 109 H (70-99(Fasting)) mg/dl Calcium 8.9 8.6 (8.6-10.3) mg/dl AST 41 H (13-39) U/L ALT 28 (7-52) U/L Alkaline Phosphatase 74 (34-104) U/L Total Protein 6.8 (6.0-8.3) gm/dl Albumin 2.9 L (3.4-5.0) gm/dl Intake and Output 10/24/23 10/25/23 10/25/23 22:59 06:59 14:59 Intake Total 384.5 / 705.000 315.917 / 705.000 Output Total 1300 / 1550 250 / 1550 Balance -915.5 / -845.000 65.917 / -845.000 Intake: IV 144.5 / 225.000 75.917 / 225.000 Magnesium Sulfate / D5w 1 gm In 100 / 100 100 ml @ 50 mls/hr IV ONE [facility] Rx#:[id number] dilTIAZem HCL 125 mg In 44.5 / 125.000 75.917 / 125.000 Dextrose 5% 100 ml @ 10 MG/HR 10 mls/hr IV .[id number] [facility] Rx#: [id number] Oral 240 / 480 240 / 480 Output: Urine 1300 / 1550 250 / 1550 Other: Weight 97.5 kg 98.4 kg Weight Measurement Method [facility] Findings Telemetry reviewed: Afib with improved rates ranging 80-100 bmp. Currently on diltiazem gtt. EKG reviewed from admission: Atrial fibrillation with RVR Low voltage QRS possible old septal infarct Repeat EKG this morning, 10/25/23: Afib with PVC's non specific T wave abnormality in lateral leads Echo report reviewed dated 10/25/23: Normal LVEF at 50-55% Mild concentric LVH No wall motion abnormalities RV is normal in size and function LA is moderately dilated Mild MR Mild TR RV systolic pressure is mildly elevated at 30-40 mmHG Outpatient echo reviewed from July 2023; Interpretation Summary The examination is adequate to evaluate the referral indication. There was atrial fibrillation during the examination. The left ventricular cavity size is normal. The LV wall thickness is mildly increased (concentric). There is mild diffuse left ventricular hypokinesis. The qualitative LV ejection fraction is 50-54% (normal). The left ventricular diastolic function is abnormal by 2-D findings. The left atrium is moderately enlarged (42-48 ml/m^2). The right atrium is severely enlarged. The right ventricular cavity is severely dilated. The right ventricular systolic function is moderately reduced . Mild secondary mitral regurgitation is present. Mild tricuspid regurgitation is present. Agitated saline contrast injected at rest and with Valsalva with no evidence of intracardiac shunt Compared to last available study changes are noted as follows: Right ventricular and right atrial enlargement is now present Medications Administered Current Inpatient Medications Acetaminophen (Acetaminophen 500 Mg Tab) 500 mg PO Q6H PRN PRN Reason: fever/pain Stop: 11/23/23 22:58 Last Admin: 10/24/23 23:06 Dose: 500 mg Hydrocodone Bitart/Acetaminophen (Hydrocodone/Acetaminophen 10/325 Tab) 1 tab PO Q6H PRN PRN Reason: Pain Stop: 11/08/23 10:32 Alendronate Sodium (Alendronate Sodium 70 Mg Tab) 70 mg PO We@0700 [facility] Stop: 11/30/23 06:59 Apixaban (Apixaban 5 Mg Tablet) 5 mg PO BID [facility] Stop: 11/24/23 10:44 Last Admin: 10/25/23 11:20 Dose: 5 mg Aspirin (Aspirin 81 Mg Ectab) 81 mg PO QAM [facility] Stop: 11/24/23 10:44 Last Admin: 10/25/23 11:21 Dose: 81 mg Digoxin (Digoxin 0.125 Mg Tab) 0.125 mg PO QAM [facility] Stop: 11/24/23 11:59 Duloxetine HCl (Duloxetine Hcl 30 Mg Cap) 30 mg PO QAM [facility] Stop: 11/24/23 10:44 Last Admin: 10/25/23 11:18 Dose: 30 mg Escitalopram Oxalate (Escitalopram Oxalate 10 Mg Tab) 10 mg PO QAM [facility] Stop: 11/25/23 08:59 Furosemide (Furosemide 40 Mg Tab) 40 mg PO BID [facility] Stop: 11/24/23 10:44 Last Admin: 10/25/23 11:20 Dose: 40 mg Diltiazem HCl 125 mg/ Dextrose 125 mls @ 10 mls/hr IV .[id number] [facility]; Protocol Stop: 11/23/23 13:29 Last Admin: 10/25/23 02:44 Dose: 10 mg/hr, 10 mls/hr Magnesium Oxide (Magnesium Oxide 400 Mg Tab) 400 mg PO BID [facility] Stop: 11/24/23 10:44 Last Admin: 10/25/23 11:20 Dose: 400 mg Metoprolol Succinate (Metoprolol Succ 50mg Ext Rel Tab) 125 mg PO BID [facility] Stop: 11/24/23 10:59 Last Admin: 10/25/23 11:18 Dose: 125 mg Miscellaneous (Sarilumab [Kevzara] ~ Order Awaiting Action) 1 each N/A QS [facility] Stop: 11/24/23 15:59 Nitroglycerin (Nitroglycerin Sl 0.4 Mg/Tab Tab) 0.4 mg SL UD PRN PRN Reason: Chest Pain Stop: 11/24/23 10:32 Oxycodone HCl (Oxycodone Hcl Ir 5 Mg Tab (Immediate Release)) 5 - 10 mg PO QID PRN PRN Reason: Pain Stop: 11/07/23 22:57 Last Admin: 10/25/23 11:32 Dose: 5 mg Pantoprazole Sodium ([facility]ole 40 Mg Tab) [facility] Protocol Stop: 11/25/23 06:29 Prednisone (Prednisone 5 Mg Tab) 5 mg PO DAILY [facility] Stop: 11/24/23 10:44 Last Admin: 10/25/23 11:20 Dose: 5 mg Rosuvastatin Calcium (Rosuvastatin Calcium 5 Mg Tab) 5 mg PO QAM [facility] Stop: 11/25/23 08:59 Sacubitril/Valsartan (Valsartan/Sacubitril 26/24mg Tab) 1 tab PO BID [facility] Stop: 11/24/23 10:44 Last Admin: 10/25/23 11:21 Dose: 1 tab Sildenafil Citrate (Sildenafil Citrate 20 Mg Tablet) 20 mg PO BID [facility] Stop: 11/24/23 10:44 Sildenafil Citrate (Sildenafil Citrate 20 Mg Tablet) 40 mg PO HS [facility] Stop: 11/24/23 20:59 Spironolactone (Spironolactone 25 Mg Tab) 25 mg PO QAM [facility] Stop: 11/24/23 10:44 Last Admin: 10/25/23 11:21 Dose: 25 mg Sulfasalazine (Sulfasalazine 500 Mg Tablet) 500 mg PO QAM [facility] Stop: 11/24/23 10:44 Last Admin: 10/25/23 11:22 Dose: 500 mg Umeclidinium [place] (Umeclidinium [place] 62.5mcg/Blister 7 Puffs/Inhaler) 1 puffs [facility] Stop: 11/25/23 08:59 Vitamin D (Cholecalciferol 10 Mcg (400 Units) Tab) 10 mcg PO DAILY [facility] Stop: 11/25/23 08:59
[2023-10-25] MEDS: DIGOXIN 0.125 MG TAB PO SCH (12:47)
--- OUTSIDE RECORDS SUMMARY | 2023-10-25 13:44 | External Medical Summary | Summary of Care ---
Author Name Unknown Organization [facility] Address [address] [place] [address] Phone [phone] Care Team Providers Care Bacteriologist Medical Name Role Phone Anayh Grayson MD Primary Care Provider [phone] Reason for Visit * Reason Onset Date Comments Appointment 10/23/2023 [facility]: Maintenance 10/23/2023 Encounter Details Date Type Department Care Team (Late st Contact Info) Description 10/23/2023 Telephone [facility], [facility] [address] [facility] [place] [address] Ludy Christine, Community [facility] [address] [place] [address] Appointment; [facility]: Maintenance Allergies No known active allergiesdocumented as of this encounter (statuses as of 10/23/2023) Medications Medication Sig Dispensed Refills Start Date End Date Status Aspirin 81 MG Oral Tablet Delayed Release Take 1 Tablet by mouth in the morning. Active Spiriva Respimat 2.5 MCG/ACT Inhalation Aerosol Solution (Tiotropium Turtlepoint Monohydrate) Inhale by mouth 2 Puffs in the morning. 4 g 11 03/21/2022 Active Vitamin D3 10 MCG (400 UNIT) Oral Tablet Take 1 Tablet by mouth in the morning. Active Centrum Silver 50+Men Oral Tablet Take 1 Tablet by mouth in the morning. Active oxygen IN GAS Use 2 L/min(Oxygen) as directed. Active Metoprolol Succinate ER 100 MG Oral Tablet Extended Release 24 Hour (toPROL XL) Take 1 Tablet by mouth in the morning and 1 Tablet before bedtime. 180 Tablet 3 07/28/2022 Active Digoxin 125 MCG Oral Tablet (Lanoxin) Take 1 Tablet by mouth in the morning. 34 Tablet 11 08/08/2022 Active Rosuvastatin Calcium 5 MG Oral Tablet (Crestor)Indications: Coronary artery disease involving lytton coronary artery of lytton heart without angina pectoris,HFrEF (heart failure with reduced ejection fraction) ([facility]),HTN, goal below 140/90,Dyslipidemia, goal LDL below 70,Palpitations TAKE ONE TABLET BY MOUTH EVERY MORNING 30 Tablet 11 10/31/2022 Active Nitroglycerin 0.4 MG Sublingual Tablet Sublingual (Nitrostat) Place 1 Tablet under the tongue every 5 minutes as needed for Pain, Chest. up to 3 doses in 15 minutes 25 Tablet 11 12/15/2022 Active Ondansetron HCl 4 MG Oral Tablet Take 1 Tablet by mouth every 8 hours as needed for Nausea. 20 Tablet 01/09/2023 Active Sarilumab 200 MG/1.14ML Subcutaneous Solution Auto-injector ([employer]zaNortis)Indications: Rheumatoid arthritis involving multiple sites with positive rheumatoid factor ([facility]) Inject 1.14 mL under the skin every 14 days. 2.28 mL 11 03/05/2023 Active Omeprazole 40 MG Oral Capsule Delayed Release (PriLOSEC) Take 1 Capsule by mouth in the morning. 1 hour before the first meal of the day.. 90 Capsule 3 03/15/2023 Active Sildenafil Citrate 20 MG Oral Tablet (Revatio)Indications: Raynaud's disease with gangrene ([facility]) TAKE ONE TABLET BY MOUTH EVERY MORNING , 1 TABLET AT NOON AND 2 TABLETS BEFORE BEDTIME 90 Tablet 2 03/30/2023 Active sulfaSALAzine 500 MG Oral Tablet Delayed Release (Azulfidine Entab) Take 1 Tablet by mouth in the morning. 2 tablets twice daily. Active Jardiance 10 MG Oral Tablet (Empagliflozin)Indica tions:HFrEF (heart failure with reduced ejection fraction) ([facility]) TAKE 1 TABLET BY MOUTH EVERY MORNING 90 Tablet 3 05/08/2023 Active Furosemide 20 MG Oral Tablet (Lasix)Indications:HF rEF (heart failure with reduced ejection fraction) ([facility]) Take 2 Tablets by mouth in the morning. 180 Tablet 3 06/06/2023 Active Additional Information Patient taking differently:40 mg Oral Daily(AM),Pt takes 2 tabs every morning and additional 1 in the afternoon as needed for edema, Reported on 09/23/2023 predniSONE 5 MG Oral Tablet (Deltasone)Indication s:Rheumatoid arthritis involving multiple sites with positive rheumatoid factor (HCC) TAKE 1 TO 2 TABLETS BY MOUTH ONCE DAILY FOR RHEUMATOID ARTHRITIS 60 Tablet 5 08/01/2023 Active Escitalopram Oxalate 10 MG Oral Tablet (Lexapro) Take 1 Tablet by mouth in the morning. 30 Tablet 08/05/2023 Active Spironolactone 25 MG Oral Tablet (Aldactone)Indication s:HTN, goal below 140/90 TAKE 1/2 TABLET BY MOUTH EVERY MORNING 45 Tablet 3 08/08/2023 Active Metoprolol Succinate ER 25 MG Oral Tablet Extended Release 24 Hour (toPROL XL)Indications:HTN, goal below 140/90,Frequent PVCs TAKE ONE TABLET BY MOUTH IN THE MORNING AND BEFORE BEDTIME IN ADDITION TO 100MG. TOTAL 125MG TWICE DAILY. 180 Tablet 3 09/04/2023 Active Entresto 24-26 MG Oral Tablet (sacubitril-valsartan 24-26 mg per tab)Indications:HTN, goal below 140/90,Frequent PVCs,HFrEF (heart failure with reduced ejection fraction) ([facility]),PAF (paroxysmal atrial fibrillation) ([facility]) TAKE 1 TABLET BY MOUTH TWICE DAILY EVERY MORNING AND BEFORE BEDTIME 180 Tablet 3 09/17/2023 Active Eliquis 5 MG Oral Tablet (Apixaban)Indications :Persistent atrial fibrillation (HCC) TAKE 1 TABLET BY MOUTH TWICE DAILY 180 Tablet 10/08/2023 Active oxyCODONE-Acetaminoph en 10-325 MG Oral Tablet (Percocet)Indications :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 120 Tablet 10/11/2023 Active Alendronate Sodium 70 MG Oral Tablet (Fosamax) TAKE ONE TABLET BY MOUTH EVERY WEEK ON SUNDAY 12 Tablet 3 10/12/2023 Active documented as of this encounter (statuses as of 10/23/2023) Active Problems Problem Noted Date Diagnosed Date Substance abuse 10/17/2023 Last Assessment & Plan: [facility] UDS + meth 08/12 Moderate episode of recurrent major depressive d isorder 08/05/2023 Last Assessment & Plan: Continue lexapro Will place behavioral health ref Psychiatry ref, preferably telemed Small vessel disease 08/01/2023 Food insecurity 01/08/2023 Overview: Per [facility] Protocol Senile osteoporosis 01/04/2023 Lung nodules 12/15/2022 Lung mass 12/15/2022 Encounter for long-term (current) use of medicat ions 09/21/2022 HFrEF (heart failure with reduced ejection fract ion) 08/08/2022 Last Assessment & Plan: "RED FLAG" HF Symptoms: Leg Swelling (Examples: "I can't wear certain socks or shoes", "My pants feel tight") Abdominal Bloating (Examples: "I can't wear certain pants", "My belly feels hard", "I look ") Increased dyspnea on exertion (Example: "I can't walk to the kitchen or up the stairs") Medication Regimen: Beta Levon Therapy: Metoprolol Succinate (ER) KENDELL Inhibitor/ARB Therapy: Entresto Diuretic therapy: Lasix Aldactone SGLT2 Inhibitor: empagliflozin (ex. 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 06/23/2022 Scoliosis 06/23/2022 SVT [...] on omeprazole PAD (peripheral artery disease) 01/31/2022 Overview: s/p right hallux partial amputation 08/21 Depression with anxiety 01/31/2022 Cardiomyopathy 01/31/2022 DDD (degenerative disc disease), lumbar 02/01/20 Immunodeficiency due to drugs 01/31/2022 Age-related nuclear cataract, bilateral 02/01/20 Hepatitis C virus infection cured after antiviral drug therapy 02/12/2019 Overview: HCV treated; SVR confirmed 02/11/2019 Effusion of left knee 12/18/2018 Rheumatoid arthritis involvi ng multiple sites with positive rheumatoid factor 03/07/2018 Last Assessment & Plan: On kevzara Chronic low dose prednisone Prn percocet managed by PCP MEDICATION USE AGREEMENT 06/25/2017 Tear of lateral meniscus of knee 02/22/2016 Knee pain 12/27/2015 DJD (degenerative joint disease) 01/15/2014 Erectile dysfunction 01/15/2014 Tobacco use disorder 01/15/2014 documented as of this encounter (statuses as of 10/23/2023) Resolved Problems Problem Noted Date Diagnosed Date [...] as of this encounter (statuses as of 10/23/2023) Immunizations Name Administration Dates Next Due HepA [...] encounter Miscellaneous Notes * Telephone Encounter - Cleo Mo RN - 10/23/2023 12:22 PM EDT Received PC from Lisa at [facility] Home Health. [facility] is declining this referral due to high census. Routing to Ludy and care team to try an alternate HH agency. Cleo Mo RN [facility] Intake Triage Coordinator [phone] * Telephone Encounter - Ludy Christine Community Health Assistant - 10/23/2023 10:10 AM EDT TT from Ryan Ghotra PT/OT order Called [facility] and they do not cover Pt's area. [facility] and spoke with Aliza. Navig order and demographics to [phone] documented in this encounter Plan of Treatment Upcoming Encounters Date Type Department Care Team (Late st Contact Info) Description 10/24/2023 10:15 AM EDT Scheduled Telephone [facility] [place], [address] [place] [address] Coordinator, [facility] [address] [place] [address] 10/24/2023 1:00 PM EDT Scheduled Telephone [facility], [facility] [address] [place] [address] Jimmy Mitchell PA-C [address] [place] [address] 11/06/2023 12:30 PM EDT Home Visit [facility], [facility] [address] [place] [address] Cindy Underwood RN [address] [place] [address] 12/17/2023 11:00 AM EDT Home Visit [facility], [facility] [address] [place] [address] Jimmy Mitchell PA-C [address] [place] [address] 12/18/2023 9:00 AM EDT Office Visit Cardiology, [facility] [address] [place] [address] Elizabeth Johnson CRNP [address] [place] [address] 12/21/2023 1:40 PM EDT [facility] [place] [address] [facility] [id number] An[facility] Grayson [facility] [address] [facility] [address] 01/17/2024 3:20 PM EDT Office Visit Neurology [facility] [address] [place] [address] Aparna Ruano PA-C [address] [place] [address] 02/20/2024 10:30 AM EDT Office Visit Vascular Surgery, [facility] [address] [place] [address] Tre Lange [facility] [address] [facility] [address] Scheduled Procedures Name Priority Associated Diagnoses Date/Ti me COLONOSCOPY FLEXIBLE PROXIMAL DIAGNOSTIC Recall Colon cancer screening Health Maintenance Due Date Last Done Comments DISCUSS TOBACCO CESSATION (REFER TO SMARTSET #3632) 1965 COVID-19 Vaccine (#1) 02/09/1969 Alpha-1 Antitrypsin 02/09/1982 Zoster Vaccines (1 of 2) 02/09/1983 Cologuard 02/09/2009 Fecal Occult Blood Test 02/09/2009 Sigmoidoscopy 02/09/2009 *COPD SEVERITY VERIFIED BY PFT 06/25/2022 DIG LEVEL FOR MEDICATION MONITORING YEARLY 10/14/2023 10/13/2022, 08/28/2022 DXA Scan 12/07/2023 12/06/2021, 12/06/2021 Influenza Vaccine (FLU shot) (Season Ended) 2024 03/03/2021, 03/03/2021, 02/12/2020, Additional history exists O2 ASSESSMENT COMPLETED IN PAST YEAR FOR COPD 10/10/2024 10/11/2023 Pneumococcal Vaccine: Pediatrics (0 to 5 Years) [...] D LEVEL ONCE IN A LIFETIME-USE SMARTSET# [id number] Completed 08/01/2023, 08/04/2021 GARDASIL-HPV IMMUNIZATION SERIES Aged Out No longer eligible based on patient's age to complete this topic MENINGOCOCCAL (MENACTRA/MENVEO) Aged Out No longer eligible based on patient's age to complete this topic documented as of this encounter Medical Devices Not on filedocumented as of this encounter Care Teams Bacteriologist Medical Relationship Specialty Start Date End Date Anahy Grayson MD [address] [place] [address] PCP - General Internal Medicine 01/27/22 documented as of this encounter
--- OUTSIDE RECORDS SUMMARY | 2023-10-25 13:44 | External Medical Summary | Summary of Care ---
Author Name Unknown Organization [facility] Address [address] [facility] [place] [address] Phone [phone] Care Team Providers Care Film Flat Inspector Name Role Phone Anahy Grayson MD Primary Care Provider [phone] Reason for Referral * Evaluate & Treat - Unlimited Visits (Within 10 days (routine)) - Pending Review Specialty Diagnoses / Procedures Referred By Jose tidwell Referred To Contact HOME CARE / Home Care Diagnoses Generalized weakness Jose Luis Dawson PA-C [address] [place] [address] Referral ID Status Reason Start Date Expiration Date Visits Requested Visits Authorized [id number] Pending Review Specialty Services Required 10/24/[phone] Question Answer Referral Priority Within 10 days (routine) Where should this appointment be scheduled? Diamond Comments Documentation of Lxbb-qa-Pnor Encounter Addendum Patient Name: Harrison Morgan I certify that this patient is under my care and that I, or a nurse practitioner or physician's payroll human resources assistant working with me, had a [id number] encounter that meets the physician [id number] encounter requirements with this patient on: 10/08/23 The encounter with the patient was in whole, or in part, for the following medical condition, which is the primary reason for home health care (List medical condition): ADL dysfunction I certify that, based on my findings, the following services are medically necessary home health services: Physical Therapy and OT To provide the following care/treatments: (All hospitalists not following the patient after discharge should complete this section): eval and treat, maximize home independence and safety Primary Care Physician to follow home care plan of care after discharge: Anahy Grayson MD My clinical findings support the need for the above services because: gait dysfunction, h/o falls Further, I certify that my clinical findings support that this patient is homebound (i.e. Absences from home require considerable and taxing effort and are for medical reasons or mandaeism services or infrequently or of short duration when for other reason) because: Does not drive, fall risk Physician Signature: Date of Signature: Physician Printed Name: Jose Luis Dawson PA-C Reason for Visit * Reason Onset Date Comments Sling Operator Documentation 10/08/2023 Encounter Details Date Type Department Care Team (Latest Contact Info) Description 10/08/2023 10:30 AM EDT Scheduled Telephone [facility], [facility] [address] [facility] [place] [address] [facility] [address] [facility] [place] [address] Generalized weakness* Allergies No known active allergiesdocumented as of this encounter (statuses as of 10/24/2023) Medications Medication Sig Dispensed Refills Start Date End Date Status Aspirin 81 MG Oral Tablet Delayed Release Take 1 Tablet by mouth in the morning. Active Spiriva Respimat 2.5 MCG/ACT Inhalation Aerosol Solution (Tiotropium Spearman Monohydrate) Inhale by mouth 2 Puffs in the morning. 4 g 11 10/25/20 22 Active Vitamin D3 10 MCG (400 UNIT) [...] 1 Tablet before bedtime. 180 Tablet 3 07/29/19 23 Active Digoxin 125 MCG Oral Tablet (Lanoxin) Take 1 Tablet by mouth in the morning. 34 Tablet 11 08/09/19 23 Active Rosuvastatin Calcium 5 MG Oral Tablet (Crestor)Indication s:Coronary artery disease involving g[place] coronary artery of g[place]ana heart without angina pectoris,HFrEF (heart failure with reduced ejection fraction) ([facility]),HTN, goal below 140/90,Dyslipidemia , goal LDL below 70,Palpitations TAKE ONE TABLET BY MOUTH EVERY MORNING 30 Tablet 11 11/01/19 23 Active Nitroglycerin 0.4 MG Sublingual Tablet Sublingual (Nitrostat) Place 1 Tablet under the tongue every 5 minutes as needed for Pain, Chest. up to 3 doses in 15 minutes 25 Tablet 11 12/16/19 23 Active Ondansetron HCl 4 MG Oral Tablet Take 1 Tablet by mouth every 8 hours as needed for Nausea. 20 Tablet 01/10/20 23 Active Sarilumab 200 MG/1.14ML Subcutaneous Solution Auto-injector (Kevzara)Indication s:Rheumatoid arthritis involving multiple sites with positive rheumatoid factor ([facility]) Inject 1.14 mL under the skin every 14 days. 2.28 mL 11 03/05/20 23 Active Omeprazole 40 MG Oral Capsule Delayed Release (PriLOSEC) Take 1 Capsule by mouth in the morning. 1 hour before the first meal of the day.. 90 Capsule 3 03/15/20 23 Active Sildenafil Citrate 20 MG Oral Tablet (Revatio)Indication s:Raynaud's disease with gangrene ([facility]) TAKE ONE TABLET BY MOUTH EVERY MORNING , 1 TABLET AT NOON AND 2 TABLETS BEFORE BEDTIME 90 Tablet 2 03/30/20 23 Active sulfaSALAzine 500 MG Oral Tablet Delayed Release (Azulfidine Entab) Take 1 Tablet by mouth in the morning. 2 tablets twice daily. Active Jardiance 10 MG Oral Tablet (Empagliflozin)Nalini cations:HFrEF (heart failure with reduced ejection fraction) ([facility]) TAKE 1 TABLET BY MOUTH EVERY MORNING 90 Tablet 3 05/08/20 23 Active Furosemide 20 MG Oral Tablet (Lasix)Indications: HFrEF (heart failure with reduced ejection fraction) ([facility]) Take 2 Tablets by mouth in the morning. 180 Tablet 3 06/06/19 24 Active Additional Information Patient taking differently:40 mg Oral Daily(AM),Pt takes 2 tabs every morning and additional 1 in the afternoon as needed for edema, Reported on 09/23/2023 predniSONE 5 MG Oral Tablet (Deltasone)Indicati ons:Rheumatoid arthritis involving multiple sites with positive rheumatoid factor ([facility]) TAKE 1 TO 2 TABLETS BY MOUTH ONCE DAILY FOR RHEUMATOID ARTHRITIS 60 Tablet 5 08/01/19 24 Active Escitalopram Oxalate 10 MG Oral Tablet (Lexapro) Take 1 Tablet by mouth in the morning. 30 Tablet 08/05/19 24 Active Spironolactone 25 MG Oral Tablet (Aldactone)Indicati ons:HTN, goal below 140/90 TAKE 1/2 TABLET BY MOUTH EVERY MORNING 45 Tablet 3 08/08/19 24 Active Metoprolol Succinate ER 25 MG Oral Tablet Extended Release 24 Hour (toPROL XL)Indications:HTN, goal below 140/90,Frequent PVCs TAKE ONE TABLET BY MOUTH IN THE MORNING AND BEFORE BEDTIME IN ADDITION TO 100MG. TOTAL 125MG TWICE DAILY. 180 Tablet 3 09/04/19 24 Active Entresto 24-26 MG Oral Tablet (sacubitril-valsart an 24-26 mg per tab)Indications:HTN , goal below 140/90,Frequent PVCs,HFrEF (heart failure with reduced ejection fraction) ([facility]),PAF (paroxysmal atrial fibrillation) ([facility]) TAKE 1 TABLET BY MOUTH TWICE DAILY EVERY MORNING AND BEFORE BEDTIME 180 Tablet 3 09/17/19 24 Active Eliquis 5 MG Oral Tablet (Apixaban)Indicatio ns:Persistent atrial fibrillation ([facility]CC) TAKE ONE TABLET BY MOUTH 2 TIMES A DAY 180 Tablet 08/16/19 024 Discontinued Alendronate Sodium 70 MG Oral Tablet (Fosamax) Take 1 Tablet by mouth once a week. 4 Tablet 12 12/16/19 23 024 Discontinued oxyCODONE-Acetamino phen 10-325 MG Oral Tablet (Percocet)Indicatio ns:Ischemic foot ulcer due to atherosclerosis of gulkana artery of limb (HCC),Rheumatoid arthritis involving multiple sites with positive rheumatoid factor (HCC) Take 1 Tablet by mouth every 6 hours as needed for Pain, Severe. 120 Tablet 08/31/19 24 024 Discontinued(Re fill) documented as of this encounter (statuses as of 10/24/2023) Active Problems Problem Noted Date Diagnosed Date Substance abuse 10/17/2023 Last Assessment & Plan: [facility] UDS + meth 08/12 Moderate episode of [...] as of this encounter (statuses as of 10/24/2023) Resolved Problems Problem Noted Date Diagnosed Date [...] as of this encounter (statuses as of 10/24/2023) Immunizations Name Administration Dates Next Due HepA [...] encounter Miscellaneous Notes * Addendum Note - Jose Luis Dawson PA-C - 10/24/2023 10:05 AM EDTAddended by: JOSE LUIS DAWSON on: 10/24/2023 10:05 AM Modules accepted: Orders * Telephone Encounter - Anamaria hGotra LPN - 10/23/2023 9:48 AM EDT Forwarded PT referral to [facility] scheduling * Addendum Note - Jose Luis Dawson PA-C - 10/20/2023 11:40 AM EDTAddended by: JOSE LUIS DAWSON on: 10/20/2023 11:40 AM Modules accepted: Orders * Telephone Encounter - Morenita Armenta OSA - 10/18/2023 11:[address] Hernandez ordered PT for this pt and pt wants it at home. I wasn't sure if this was something your office needs to do. Can you please help? thanks * Telephone Encounter - Morenita Armenta OSA - 10/18/2023 10:13 AM EDT Does this pt have PT set up at home? If not can we please have that set up? Thanks * Telephone Encounter - Cynthia Diana LCSW - 10/08/2023 10:43 AM EDT Worker was consulted by [facility] HowDo Chart was reviewed. Worker contacted the number [phone] as directed by the eric zayas. Worker reached Amie Terry's mother. She was pleasant on the phone. Worker discussed services in the community. Amie stated that "we are doing fine here and we don't need anything". Amie offered no other complaints or concerns at this time. Emotional Support was offered. Amie was encouraged to contact the [facility] Team with any questions or concerns . Phone number for [facility] was provided . Worker provided contact number [phone] for any follow up needed. Worker reached out to Cindy PITTMAN CM. She was able to provide some insight into Harrison's situation. Worker provided her with the above update. Cynthia Diana LCSW [facility] Evp Chief Exploration Officer [facility] [phone] documented in this encounter Plan of Treatment Upcoming Encounters Date Type Department Care Team (Late st Contact Info) Description 10/24/2023 10:15 AM EDT Scheduled Telephone [facility], [facility] [address] [place] [address] Coordinator, [place] [address] [place] [address] 10/24/2023 1:00 PM EDT Scheduled Telephone [facility], [facility] [address] [place] [address] Jose Luis Dawson PA-C [address] [place] [address] 11/06/2023 12:30 PM EDT Home Visit [facility], [facility] [address] [place] [address] Cindy Underwood RN [address] [place] [address] 12/17/2023 11:00 AM EDT Home Visit [facility], [facility] [address] [place] [address] Jose Luis Dawson PA-C [address] [place] [address] 12/18/2023 9:00 AM EDT Office Visit Cardiology, [facility] [address] [place] [address] Elizabeth Johnson CRNP [address] [place] [address] 12/21/2023 1:40 PM EDT [facility] [place] [address] [facility] [phone] Anahy Grayson MD [address] [facility], [place] [address] 01/17/2024 3:20 PM EDT [facility] [address] [facility] [address] Aparna Ruano PA-C [address] [facility] [address] 02/20/2024 10:30 AM EDT Office Visit Vascular Surgery, [facility] [address] [facility] [place] [address] Tre Lange MD [address] [place], [place] [id number] Scheduled Procedures Name Priority Associated Diagnoses Date/Ti me COLONOSCOPY FLEXIBLE PROXIMAL DIAGNOSTIC Recall Colon cancer screening Scheduled Referrals Name Type Priority Associated Diagnoses Orde r Schedule HOME HEALTH REFERRAL OP Referral Within 10 days (routine) Generalized weakness Ordered: 10/24/2023 Health Maintenance Due Date Last Done Comments [...] D LEVEL ONCE IN A LIFETIME-USE SMARTSET# [id number] Completed 08/01/2023, 08/04/2021 GARDASIL-HPV IMMUNIZATION SERIES Aged Out No longer eligible based on patient's age to complete this topic MENINGOCOCCAL (MENACTRA/MENVEO) Aged Out No longer eligible based on patient's age to complete this topic documented as of this encounter Medical Devices Not on filedocumented as of this encounter Visit Diagnoses Diagnosis Generalized weakness- Primary Other malaise and fatigue documented in this encounter Care Teams Film Flat Inspector Relationship Specialty Start Date End Date Anahy Grayson MD [address] [place] [address] PCP - General Internal Medicine 01/27/22 documented as of this encounter
--- OUTSIDE RECORDS SUMMARY | 2023-10-25 13:44 | External Medical Summary | Summary of Care ---
Author Name Unknown Organization [facility] Address [address] [place] [address] Phone [phone] Care Team Providers Care Pricing Actuary Name Role Phone Anahy Grayson MD Primary Care Provider [phone] Reason for Visit * Reason Onset Date Comments Information 10/24/2023 Encounter Details Date Type Department Care Team (Late st Contact Info) Description 10/24/2023 Telephone [facility], [place] [facility] [address] [place] [address] Services, Scheduling [address] [place] [address] Information (///) Allergies No known active allergiesdocumented as of this encounter (statuses as of 10/24/2023) Medications Medication Sig Dispensed Refills Start Date End Date Status Aspirin 81 MG Oral Tablet Delayed Release Take 1 Tablet by mouth in the morning. Active Spiriva Respimat 2.5 MCG/ACT Inhalation Aerosol Solution (Tiotropium Thompson Monohydrate) Inhale by mouth 2 Puffs in [...] Oral Tablet (Crestor)Indications: Coronary artery disease involving lovelock coronary artery of lovelock heart without angina pectoris,HFrEF (heart failure with reduced ejection fraction) ([facility]),HTN, goal below 140/90,Dyslipidemia, goal LDL [...] Active Sarilumab 200 MG/1.14ML Subcutaneous Solution Auto-injector (InVisMzaTelunjuk)Indications: Rheumatoid arthritis involving multiple sites with positive [...] Oral Tablet (Revatio)Indications: Raynaud's disease with gangrene ([facility]) TAKE ONE TABLET BY MOUTH EVERY MORNING , 1 TABLET AT NOON AND 2 TABLETS BEFORE BEDTIME 90 Tablet 2 03/30/2023 Active sulfaSALAzine 500 MG Oral Tablet Delayed Release (Azulfidine Entab) Take 1 Tablet by mouth in the morning. 2 tablets twice daily. Active Jardiance 10 MG Oral Tablet (Empagliflozin)Indica tions:HFrEF (heart failure with reduced ejection fraction) ([facility]) TAKE 1 TABLET BY MOUTH EVERY MORNING 90 Tablet 3 05/08/2023 Active Furosemide 20 MG Oral Tablet (Lasix)Indications:HF rEF (heart failure with reduced ejection fraction) ([facility] [...] with positive rheumatoid factor ([facility]) TAKE 1 TO 2 TABLETS [...] PVCs,HFrEF (heart failure with reduced ejection fraction) ([facility]),PAF (paroxysmal atrial fibrillation) ([facility]) TAKE 1 TABLET BY MOUTH TWICE DAILY EVERY MORNING AND BEFORE BEDTIME 180 Tablet 3 09/17/2023 Active Eliquis 5 MG Oral Tablet (Apixaban)Indications :Persistent atrial fibrillation ([facility]) TAKE 1 TABLET BY MOUTH TWICE DAILY 180 Tablet 10/08/2023 Active oxyCODONE-Acetaminoph en 10-325 MG Oral Tablet (Percocet)Indications :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 06/23/2022 Scoliosis 06/23/2022 [...] Telephone Encounter - Angelina Almanzar OSA - 10/24/2023 10:14 AM EDT F/U on and [facility] already declined, so I then called [facility]isel Enriquez , [facility], and [facility] and they all denied for non par with Family coverage Then called [facility] and they will run all info once they get our referral faxed to [phone] so I faxed to them today documented in this encounter Plan of Treatment Upcoming Encounters Date Type Department Care Team (Late st Contact Info) Description 10/24/2023 1:00 PM EDT Scheduled Telephone [facility] [address] [place] [address] Jimmy Mitchell PA-C [address] [place] [address] 10/26/2023 11:00 AM EDT Scheduled Telephone [facility] [place], [facility] [address] [place] [address] Coordinator, [facility] [address] [place] [address] 11/06/2023 12:30 PM EDT [facility] Visit [facility], [facility] [address] [place] [address] Cindy Underwood RN [address] [place] [address] 12/17/2023 11:00 AM EDT Home Visit [facility], [facility] [address] [facility] [place] [address] Jimmy Mitchell PA-C [address] [place] [address] 12/18/2023 9:00 AM EDT Office Visit Cardiology, [facility] [address] [facility] [place] [address] Elizabeth Johnson CRNP [address] [place] [address] 12/21/2023 1:40 PM EDT Office Visit [facility] [address] [place] [id number] Anahy Grayson MD [address] [place] [address] 01/17/2024 3:20 PM EDT Office Visit [facility]rology [facility] [address] [facility] [place] [address] Aparna Ruano PA-C [address] [facility] [place] [address] 02/20/2024 10:30 AM EDT Office Visit Vascular Surgery, [facility] [address] [facility] [place] [address] Tre Lange MD [address] [place] [address] Scheduled Procedures Name Priority Associated Diagnoses Date/Ti me COLONOSCOPY FLEXIBLE PROXIMAL DIAGNOSTIC Recall Colon cancer screening Health Maintenance Due Date Last Done Comments DISCUSS TOBACCO CESSATION (REFER TO SMARTSET #[id number]) 1965 COVID-19 Vaccine (#1) 02/[birth year]/1969 Alpha-1 Antitrypsin [...] D LEVEL ONCE IN A LIFETIME-USE SMARTSET# [id number] Completed 08/01/2023, 08/04/2021 GARDASIL-HPV IMMUNIZATION SERIES Aged Out No longer eligible based on patient's age to complete this topic MENINGOCOCCAL (MENACTRA/MENVEO) Aged Out No longer eligible based on patient's age to complete this topic documented as of this encounter Medical Devices Not on filedocumented as of this encounter Care Teams Pricing Actuary Relationship Specialty Start Date End Date Anahy Grayson MD [address] [place] [address] PCP - General Internal Medicine 01/27/22 documented as of this encounter
--- OUTSIDE RECORDS SUMMARY | 2023-10-25 13:45 | External Medical Summary | Summary of Care ---
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 Active Spiriva Respimat 2.5 MCG/ACT Inhalation Aerosol Solution (Tiotropium [place] Monohydrate) Inhale by mouth 2 Puffs in the morning. 4 g 11 03/21/20 22 Active Vitamin D3 10 MCG (400 [...] pectoris,HFrEF (heart failure with reduced ejection fraction) ([facility]),HTN, goal below 140/90,Dyslipidemia , goal LDL below [...] Active Sarilumab 200 MG/1.14ML Subcutaneous Solution Auto-injector (AltspaceVRzara)Indication s:Rheumatoid arthritis involving multiple sites with positive [...] PVCs,HFrEF (heart failure with reduced ejection fraction) (HCC),PAF (paroxysmal atrial fibrillation) (HCC) TAKE 1 TABLET BY MOUTH TWICE DAILY EVERY MORNING AND BEFORE BEDTIME 180 Tablet 3 09/17/19 24 Active Eliquis 5 MG Oral Tablet (Apixaban)Indicatio ns:Persistent atrial fibrillation (HCC) TAKE ONE TABLET BY MOUTH 2 TIMES A DAY 180 Tablet 3 08/16/19 23 024 Discontinued Alendronate Sodium 70 MG Oral Tablet (Fosamax) Take 1 Tablet by mouth once a week. 4 Tablet 12 12/16/19 23 024 Discontinued oxyCODONE-Acetamino phen 10-325 MG Oral Tablet (Percocet)Indicatio ns:Ischemic foot ulcer due to atherosclerosis of tazlina artery of limb (HCC),Rheumatoid arthritis involving multiple sites with positive rheumatoid factor (HCC) Take 1 Tablet by mouth every 6 hours as needed for Pain, Severe. 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 Worker contacted the number [phone] as directed by the eric zayas. Worker [...] was provided . Worker provided contact number [phone] for any follow up needed. Worker reached out to Cindy PITTMAN CM. She was able to provide some insight into Harrison's situation. Worker provided her with the above update. Cynthia Diana LCSW [facility] Internal Medicine Specialist [facility] [phone] documented in this encounter Plan of Treatment Upcoming Encounters Date Type Department Care Team (Late st Contact Info) Description 10/24/2023 1:00 PM EDT Scheduled Telephone [facility], [facility] [address] [address] Jose Luis Dawson PA-C [address] [place] [address] 11/06/2023 12:30 PM EDT [facility] Visit [facility], [facility] [address] [address] Cindy Underwood, RN [address] [place] [address] 12/17/2023 11:00 AM EDT [facility] Visit [facility], [facility] [address] [place] [address] Jose Luis Dawson PA-C [address] [place] [address] 12/18/2023 9:00 AM EDT Office Visit Cardiology, [facility] 132 [facility] [place] [address] Elizabeth Johnson CRNP [address] [place] [address] 12/21/2023 1:40 PM EDT Office Visit Family [facility] [address] [place] [phone] Anahy Grayson MD [address] [place] [address] 01/17/2024 3:20 PM EDT Office Visit Neurology [facility] [address] [place] [address] Aparna Ruano PA-C [address] [place] [address] 02/20/2024 10:30 AM EDT Office Visit Vascular Surgery, [facility] 132 [facility] [place] [address] Tre [facility] [address] [facility] [address] Scheduled Procedures Name Priority Associated Diagnoses Date/Ti me COLONOSCOPY FLEXIBLE PROXIMAL DIAGNOSTIC Recall Colon cancer screening Health Maintenance Due Date Last Done Comments DISCUSS TOBACCO CESSATION (REFER TO SMARTSET #1334) 1965 COVID-19 Vaccine (#1) 02/09/1969 Alpha-1 Antitrypsin [...] D LEVEL ONCE IN A LIFETIME-USE SMARTSET# 83915 Completed 08/01/2023, 08/04/2021 GARDASIL-HPV IMMUNIZATION SERIES Aged Out No longer eligible based on patient's age to complete this topic MENINGOCOCCAL (MENACTRA/MENVEO) Aged Out No longer eligible based on patient's age to complete this topic documented as of this encounter Medical Devices Not on filedocumented as of this encounter Care Teams Shock Absorption Floor Layer Relationship Specialty Start Date End Date Anahy Grayson MD [address] [place] [address] PCP - General Internal Medicine 01/27/22 documented as of this encounter
--- OUTSIDE RECORDS SUMMARY | 2023-10-25 13:45 | External Medical Summary | Summary of Care ---
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 Active Spiriva Respimat 2.5 MCG/ACT Inhalation Aerosol Solution (Tiotropium [place] Monohydrate) Inhale by mouth 2 Puffs in [...] Oral Tablet (Crestor)Indication s:Coronary artery disease involving koi coronary artery of koi heart without angina pectoris,HFrEF (heart failure with [...] Active Sarilumab 200 MG/1.14ML Subcutaneous Solution Auto-injector (CollabFinderzara)Indication s:Rheumatoid arthritis involving multiple sites with positive [...] ns:Ischemic foot ulcer due to atherosclerosis of koi artery of limb (HCC),Rheumatoid arthritis involving multiple sites with positive rheumatoid factor (HCC) Take 1 Tablet by mouth every 6 hours as needed for Pain, Severe. 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 Worker contacted the number [phone] as directed by the eric zayas. Worker reached Amie Terry's mother. She was pleasant on the phone. Worker discussed services in the community. Amie stated that "we are doing fine here and we don't need anything". Amei offered no other complaints or concerns at this time. Emotional Support was offered. Amie was encouraged to contact the [facility] Team with any questions or concerns . Phone number for [facility] was provided . Worker provided contact number [phone] for any follow up needed. Worker reached out to Cindy PITTMAN CM. She was able to provide some insight into Harrison's situation. Worker provided her with the above update. Cynthia Diana LCSW [facility] Primer Expeditor And Drier [facility] [phone] documented in this encounter Plan of Treatment Upcoming Encounters Date Type Department Care Team (Late st Contact Info) Description 10/24/2023 1:00 PM EDT Scheduled Telephone [facility], [facility] [address] [address] Jose Luis Dawson PA-C [address] [place] [address] 11/06/2023 12:30 PM EDT Home Visit [facility], [facility] [address] [address] Cindy Underwood RN [address] [place] [address] 12/17/2023 11:00 AM EDT Home Visit [facility], [facility] [address] [address] Jose Luis Dawson PA-C [address] [place] [address] 12/18/2023 9:00 AM EDT Office Visit Cardiology, [facility] [place] [address] Elizabeth Johnson CRNP [address] [place] [address] 12/21/2023 1:40 PM EDT Office Visit Family [place] [address] [place] [phone] Anahy Grayson MD [address] [place] [address] 01/17/2024 3:20 PM EDT Office Visit Neurology [facility] [address] [place] [address] Aparna Ruano PA-C [address] [facility] [place] [address] 02/20/2024 10:30 AM EDT Office Visit Vascular Surgery, [facility] [place] [address] Tre Lange MD [address] [place], [place] [phone] Scheduled Procedures Name Priority Associated Diagnoses Date/Ti me COLONOSCOPY FLEXIBLE PROXIMAL DIAGNOSTIC Recall Colon cancer screening Health Maintenance Due Date Last Done Comments DISCUSS TOBACCO CESSATION (REFER TO SMARTSET #0574) 1965 COVID-19 Vaccine (#1) 02/09/1969 Alpha-1 Antitrypsin [...] D LEVEL ONCE IN A LIFETIME-USE SMARTSET# 50256 Completed 08/01/2023, 08/04/2021 GARDASIL-HPV IMMUNIZATION SERIES Aged Out No longer eligible based on patient's age to complete this topic MENINGOCOCCAL (MENACTRA/MENVEO) Aged Out No longer eligible based on patient's age to complete this topic documented as of this encounter Medical Devices Not on filedocumented as of this encounter Care Teams B2B Outside Sales Representative Relationship Specialty Start Date End Date Anahy Grayson MD [address] [place] [address] PCP - General Internal Medicine 01/27/22 documented as of this encounter
--- OUTSIDE RECORDS SUMMARY | 2023-10-25 13:45 | External Medical Summary | Summary of Care ---
Author Name Unknown Organization [facility] Address [address] [place] [address] Phone [phone] Care Team Providers Care Hand Sewer Name Role Phone Anahy Grayson MD Primary Care Provider [phone] Reason for Visit * Reason Onset Date Comments Appointment 10/23/2023 Encounter Details Date Type Department Care Team (Late st Contact Info) Description 10/23/2023 Telephone [facility], [facility] [address] [facility] [place] [id number] Ludy Christine, Community Health Graduate Rn [address] [place] [address] Appointment Allergies No known active allergiesdocumented as of this encounter (statuses as of 10/23/2023) Medications Medication Sig Dispensed Refills Start Date End Date Status Aspirin 81 MG Oral Tablet Delayed Release Take 1 Tablet by mouth in the morning. Active Spiriva Respimat 2.5 MCG/ACT Inhalation Aerosol Solution (Tiotropium [place] Monohydrate) Inhale by mouth 2 Puffs in [...] Oral Tablet (Crestor)Indications: Coronary artery disease involving [place] coronary artery of [place] grande heart without angina pectoris,HFrEF (heart failure with reduced ejection fraction) ([facility]),HTN, goal below 140/90,Dyslipidemia, goal LDL [...] Active Sarilumab 200 MG/1.14ML Subcutaneous Solution Auto-injector (Echobit)Indications: Rheumatoid arthritis involving multiple sites with positive rheumatoid factor ([facility]) Inject 1.14 mL under the skin every 14 days. 2.28 mL 11 03/05/2023 Active Omeprazole 40 MG Oral Capsule Delayed Release (PriLOSEC) Take 1 Capsule by mouth in the morning. 1 hour before the first meal of the day.. 90 Capsule 3 03/15/2023 Active Sildenafil Citrate 20 MG Oral Tablet (Revatio)Indications: Raynaud's disease with gangrene ([facility]) TAKE ONE TABLET BY MOUTH EVERY MORNING , 1 TABLET AT NOON AND 2 TABLETS BEFORE BEDTIME 90 Tablet 2 03/30/2023 Active sulfaSALAzine 500 MG Oral Tablet Delayed Release (Azulfidine Entab) Take 1 Tablet by mouth in the morning. 2 tablets twice daily. Active Jardiance 10 MG Oral Tablet (Empagliflozin)Indica tions:HFrEF (heart failure with reduced ejection fraction) ([facility]) TAKE 1 TABLET BY MOUTH EVERY MORNING 90 Tablet 3 05/08/2023 Active Furosemide 20 MG Oral Tablet (Lasix)Indications:HF rEF (heart failure with reduced ejection fraction) ([facility]) Take 2 Tablets by mouth [...] failure with reduced ejection fraction) ([facility]),PAF (paroxysmal atrial fibrillation) ([facility]) TAKE 1 TABLET BY MOUTH TWICE DAILY EVERY MORNING AND BEFORE BEDTIME 180 Tablet 3 09/17/2023 Active Eliquis 5 MG Oral Tablet (Apixaban)Indications :Persistent atrial fibrillation (HCC) TAKE 1 TABLET BY MOUTH TWICE DAILY 180 Tablet 10/08/2023 Active oxyCODONE-Acetaminoph en 10-325 MG Oral Tablet (Percocet)Indications :Ischemic foot ulcer due to atherosclerosis of [place] grande artery of limb ([facility]),Rheumatoid arthritis involving multiple sites with positive rheumatoid factor ([facility]) Take 1 Tablet by mouth [...] abuse 10/17/2023 Last Assessment & Plan: [facility] UDS + meth 08/12 Moderate episode of [...] encounter Miscellaneous Notes * Telephone Encounter - Ludy Christine Community Health Graduate Rn - 10/23/2023 10:10 AM EDT TT from Ryan Ghotra PT/OT order Called [facility] and they do not cover Pt's area. [facility] and spoke with Aliza. Faxing order and demographics to [phone] documented in this encounter Plan of Treatment Upcoming Encounters Date Type Department Care Team (Late st Contact Info) Description 10/24/2023 10:15 AM EDT Scheduled Telephone [facility] [place], [facility] [address] [address] Coordinator, [facility] [address] [address] 10/24/2023 1:00 PM EDT Scheduled Telephone [facility] [place], [facility] [address] [address] Jimmy Mitchell PA-C [address] [place] [address] 11/06/2023 12:30 PM EDT Home Visit [facility], [facility] [address] [facility] [place] [address] Cindy Underwood RN [address] [place], [place] [address] 12/17/2023 11:00 AM EDT Home Visit [facility], [facility] 132 [facility] [place] [address] Jimmy Mitchell PA-C [address] [address] 12/18/2023 9:00 AM EDT Office Visit Cardiology, [facility] 132 [facility] [place] [address] Elizabeth Johnson CRNP 132 [place] [address] 12/21/2023 1:40 PM EDT Office Visit [facility] [address] [place] [phone] Anahy Grayson MD [address] [place] [address] 01/17/2024 3:20 PM EDT Office Visit Neurology [facility] [address] [facility] [place] [address] Aparna Ruano PA-C [address] [facility] [place] [address] 02/20/2024 10:30 AM EDT Office Visit Vascular Surgery, [facility] 132 [facility] [place] [address] Tre Lange MD [address] [place] [address] Scheduled Procedures Name Priority Associated Diagnoses Date/Ti me COLONOSCOPY FLEXIBLE PROXIMAL DIAGNOSTIC Recall Colon cancer screening Health Maintenance Due Date Last Done Comments DISCUSS TOBACCO CESSATION (REFER TO SMARTSET #6084) 1965 COVID-19 Vaccine (#1) 02/09/1969 Alpha-1 Antitrypsin [...] D LEVEL ONCE IN A LIFETIME-USE SMARTSET# 30849 Completed 08/01/2023, 08/04/2021 GARDASIL-HPV IMMUNIZATION SERIES Aged Out No longer eligible based on patient's age to complete this topic MENINGOCOCCAL (MENACTRA/MENVEO) Aged Out No longer eligible based on patient's age to complete this topic documented as of this encounter Medical Devices Not on filedocumented as of this encounter Care Teams Hand Sewer Relationship Specialty Start Date End Date Anahy Grayson MD [address] [place] [address] PCP - General Internal Medicine 01/27/22 documented as of this encounter
--- OUTSIDE RECORDS SUMMARY | 2023-10-25 13:45 | External Medical Summary | Summary of Care ---
Author Name Unknown Organization [facility] Address [address] [place] [address] Phone [phone] Care Team Providers Care Stippler Name Role Phone Anahy Grayson MD Primary Care Provider [phone] Reason for Visit * Reason Onset Date Comments Sight Effects Specialist Documentation 10/08/2023 Encounter Details Date Type Department Care Team (Late st Contact Info) Description 10/08/2023 10:30 AM EDT Scheduled [facility]phone [facility], [facility] [address] [place], [place] [phone] Cynthia Diana, [facility] [address] [place] [address] Allergies No known active allergiesdocumented as of this encounter (statuses as of 10/18/2023) Medications Medication Sig Dispensed Refills Start Date End Date Status Aspirin 81 MG Oral Tablet Delayed Release Take 1 Tablet by mouth in the morning. Active Spiriva Respimat 2.5 MCG/ACT Inhalation Aerosol Solution (Tiotropium [place] Monohydrate) Inhale by mouth 2 Puffs in [...] Tablet (Crestor)Indication s:Coronary artery disease involving [place] coronary artery of [place] heart without angina pectoris,HFrEF (heart failure with reduced ejection fraction) ([facility]),HTN, goal below 140/90,Dyslipidemia , goal [...] Active Sarilumab 200 MG/1.14ML Subcutaneous Solution Auto-injector (Exelonixzara)Indication s:Rheumatoid arthritis involving multiple sites with positive rheumatoid factor ([facility]) Inject 1.14 mL under the skin every 14 days. 2.28 mL 11 03/05/20 23 Active Omeprazole 40 MG Oral Capsule Delayed Release (PriLOSEC) Take 1 Capsule by mouth in the morning. 1 hour before the first meal of the day.. 90 Capsule 3 03/15/20 23 Active Sildenafil Citrate 20 MG Oral Tablet (Revatio)Indication s:Raynaud's disease with gangrene ([facility]) TAKE ONE TABLET BY MOUTH EVERY MORNING , 1 TABLET AT NOON AND 2 TABLETS BEFORE BEDTIME 90 Tablet 2 03/30/20 23 Active sulfaSALAzine 500 MG Oral Tablet Delayed Release (Azulfidine Entab) Take 1 Tablet by mouth in the morning. 2 tablets twice daily. 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 120 Tablet 08/31/19 24 024 Discontinued(Re fill) documented as of this encounter (statuses as of 10/18/2023) Active Problems Problem Noted Date Diagnosed Date Substance abuse 10/17/2023 Last Assessment & Plan: [facility] UDS + meth 08/12 Moderate episode [...] as of this encounter (statuses as of 10/18/2023) Resolved Problems Problem Noted Date Diagnosed Date [...] as of this encounter (statuses as of 10/18/2023) Immunizations Name Administration Dates Next Due HepA [...] encounter Miscellaneous Notes * Telephone Encounter - Morenita Armenta OSA - 10/18/2023 10:13 AM EDT Does this pt have PT set up at home? If not can we please have that set up? Thanks * Telephone Encounter - Cynthia Diana LCSW - 10/08/2023 10:43 AM EDT Worker was consulted by [facility] Chart was reviewed. Worker contacted the number [phone] as directed by the eric zayas. Worker reached Amie Terry's mother. She was pleasant on the phone. Worker discussed services in the community. Amie stated that "we are doing fine here and we don't need anything". Amie offered no other complaints or concerns at this time. Emotional Support was offered. Amie was encouraged to contact the [facility] Team with any questions or concerns . Phone number for [facility] was provided . Worker provided contact number [phone] for any follow up needed. Worker reached out to Cindy PITTMAN CM. She was able to provide some insight into Harrison's situation. Worker provided her with the above update. Cynthia Diana LCSW [facility] Form Builder Helper [facility] [phone] documented in this encounter Plan of Treatment Upcoming Encounters Date Type Department Care Team (Late st Contact Info) Description 10/24/2023 1:00 PM EDT Scheduled Telephone [facility] [place], [facility] [address] [place] [address] Jimmy Mitchell PA-C [address] [place] [address] 12/17/2023 11:00 AM EDT [facility] Visit [facility] [place], [facility] [address] [place] [address] Jimmy Mitchell PA-C [address] [place] [address] 12/18/2023 9:00 AM EDT Office Visit Cardiology, [facility] [address] [place] [address] Elizabeth Johnson CRNP [address] [place] [address] 12/21/2023 1:40 PM EDT Office Visit [facility] [address] [facility] [phone] Anahy Grayson MD [address] [place] [facility] [place] [address] 01/17/2024 3:20 PM EDT Office Visit Neu[facility] [address] [facility] [address] Aparna Ruano PA-C [address] [place] [address] 02/20/2024 10:30 AM EDT Office Visit Vascular Surgery, [facility] [address] [place] [address] Tre Lange MD [address] [place] [address] Scheduled Procedures Name Priority Associated Diagnoses Date/Ti me COLONOSCOPY FLEXIBLE PROXIMAL DIAGNOSTIC Recall Colon cancer screening Health Maintenance Due Date Last Done Comments DISCUSS TOBACCO CESSATION (REFER TO SMARTSET #2339) 1965 COVID-19 Vaccine (#1) 02/09/1969 Alpha-1 Antitrypsin [...] D LEVEL ONCE IN A LIFETIME-USE SMARTSET# 27506 Completed 08/01/2023, 08/04/2021 GARDASIL-HPV IMMUNIZATION SERIES Aged Out No longer eligible based on patient's age to complete this topic MENINGOCOCCAL (MENACTRA/MENVEO) Aged Out No longer eligible based on patient's age to complete this topic documented as of this encounter Medical Devices Not on filedocumented as of this encounter Care Teams Stippler Relationship Specialty Start Date End Date Anahy Grayson MD [address] [place] [facility] [place] [address] PCP - General Internal Medicine 01/27/22 documented as of this encounter
--- OUTSIDE RECORDS SUMMARY | 2023-10-25 13:45 | External Medical Summary | Summary of Care ---
Author Name Unknown Organization [facility] Address [address] [place] [address] Phone [phone] Care Team Providers Care Auxiliary Plant Operator Name Role Phone Anahy Goins MD Primary Care Provider [phone] Reason for Visit * Reason Comments eRx-Medication Refill Encounter Details Date Type Department Care Team (Late st Contact Info) Description 10/12/2023 Refill [facility] [address] [place] [address] Anahy Goins MD [address] [place] [address] Allergies No known active allergiesdocumented as of this encounter (statuses as of 10/12/2023) Medications Medication Sig Dispensed Refills Start Date End Date Status Aspirin 81 MG Oral Tablet Delayed Release Take 1 Tablet by mouth in the morning. 0 Active Spiriva Respimat 2.5 MCG/ACT Inhalation Aerosol Solution (Tiotropium Hall[place] Monohydrate) Inhale by mouth 2 Puffs in the morning. 4 g 11 2 Active Vitamin D3 10 MCG (400 UNIT) Oral Tablet Take 1 Tablet by mouth in the morning. 0 Active Centrum Silver 50+Men Oral Tablet Take 1 Tablet by mouth in the morning. 0 Active oxygen IN GAS Use 2 L/min(Oxygen) as directed. 0 Active Metoprolol Succinate ER 100 MG Oral Tablet Extended Release 24 Hour (toPROL XL) Take 1 Tablet by mouth in the morning and 1 Tablet before bedtime. 180 Tablet 3 3 Active Digoxin 125 MCG Oral Tablet (Lanoxin) Take 1 Tablet by mouth in the morning. 34 Tablet 11 3 Active Rosuvastatin Calcium 5 MG Oral Tablet (Crestor)Indication s:Coronary artery disease involving [place] che[place] coronary artery of [place] heart without angina pectoris,HFrEF (heart failure with reduced ejection fraction) ([facility]),HTN, goal below 140/90,Dyslipidemia , goal LDL below 70,Palpitations TAKE ONE TABLET BY MOUTH EVERY MORNING 30 Tablet 11 3 Active Nitroglycerin 0.4 MG Sublingual Tablet Sublingual (Nitrostat) Place 1 Tablet under the tongue every 5 minutes as needed for Pain, Chest. up to 3 doses in 15 minutes 25 Tablet 11 3 Active Ondansetron HCl 4 MG Oral Tablet Take 1 Tablet by mouth every 8 hours as needed for Nausea. 20 Tablet 0 3 Active Sarilumab 200 MG/1.14ML Subcutaneous Solution Auto-injector (Blottrzara)Indication s:Rheumatoid arthritis involving multiple sites with positive rheumatoid factor ([facility]) Inject 1.14 mL under the skin every 14 days. 2.28 mL 11 3 Active Omeprazole 40 MG Oral Capsule Delayed Release (PriLOSEC) Take 1 Capsule by mouth in the morning. 1 hour before the first meal of the day.. 90 Capsule 3 3 Active Sildenafil Citrate 20 MG Oral Tablet (Revatio)Indication s:Raynaud's disease with gangrene ([facility]) TAKE ONE TABLET BY MOUTH EVERY MORNING , 1 TABLET AT NOON AND 2 TABLETS BEFORE BEDTIME 90 Tablet 2 3 Active sulfaSALAzine 500 MG Oral Tablet Delayed Release (Azulfidine Entab) Take 1 Tablet by mouth in the morning. 2 tablets twice daily. 0 Active Jardiance 10 MG Oral Tablet (Empagliflozin)Nalini cations:HFrEF (heart failure with reduced ejection fraction) ([facility]) TAKE 1 TABLET BY MOUTH EVERY MORNING 90 Tablet 3 3 Active Furosemide 20 MG Oral Tablet (Lasix)Indications: HFrEF (heart failure with reduced ejection fraction) ([facility]) Take 2 Tablets by mouth in the morning. 180 Tablet 3 4 Active Additional Information Patient taking differently:40 mg Oral Daily(AM),Pt takes 2 tabs every morning and additional 1 in the afternoon as needed for edema, Reported on 09/23/2023 predniSONE 5 MG Oral Tablet (Deltasone)Indicati ons:Rheumatoid arthritis involving multiple sites with positive rheumatoid factor (HCC) TAKE 1 TO 2 TABLETS BY MOUTH ONCE DAILY FOR RHEUMATOID ARTHRITIS 60 Tablet 5 4 Active Escitalopram Oxalate 10 MG Oral Tablet (Lexapro) Take 1 Tablet by mouth in the morning. 30 Tablet 0 4 Active Spironolactone 25 MG Oral Tablet (Aldactone)Indicati ons:HTN, goal below 140/90 TAKE 1/2 TABLET BY MOUTH EVERY MORNING 45 Tablet 3 4 Active Metoprolol Succinate ER 25 MG Oral Tablet Extended Release 24 Hour (toPROL XL)Indications:HTN, goal below 140/90,Frequent PVCs TAKE ONE TABLET BY MOUTH IN THE MORNING AND BEFORE BEDTIME IN ADDITION TO 100MG. TOTAL 125MG TWICE DAILY. 180 Tablet 3 4 Active Entresto 24-26 MG Oral Tablet (sacubitril-valsart an 24-26 mg per tab)Indications:HTN , goal below 140/90,Frequent PVCs,HFrEF (heart failure with reduced ejection fraction) (HCC),PAF (paroxysmal atrial fibrillation) (HCC) TAKE 1 TABLET BY MOUTH TWICE DAILY EVERY MORNING AND BEFORE BEDTIME 180 Tablet 3 4 Active Eliquis 5 MG Oral Tablet (Apixaban)Indicatio ns:Persistent atrial fibrillation (HCC) TAKE 1 TABLET BY MOUTH TWICE DAILY 180 Tablet 0 4 Active oxyCODONE-Acetamino phen 10-325 MG Oral Tablet (Percocet)Indicatio ns:Ischemic foot ulcer due to atherosclerosis of northern [place] artery of limb (HCC),Rheumatoid arthritis involving multiple sites with positive rheumatoid factor (HCC) Take 1 Tablet by mouth every 6 hours as needed for Pain, Severe. 120 Tablet 0 4 Active Alendronate Sodium 70 MG Oral Tablet (Fosamax) TAKE ONE TABLET BY MOUTH EVERY WEEK ON SUNDAY 12 Tablet 3 4 Active Alendronate Sodium 70 MG Oral Tablet (Fosamax) Take 1 Tablet by mouth once a week. 4 Tablet 12 3 10/12/19 24 Discontinued documented as of this encounter (statuses as of 10/12/2023) Active Problems Problem Noted Date Diagnosed Date [...] as of this encounter (statuses as of 10/12/2023) Resolved Problems Problem Noted Date Diagnosed Date [...] as of this encounter (statuses as of 10/12/2023) Immunizations Name Administration Dates Next Due HepA [...] encounter Miscellaneous Notes * Telephone Encounter - Craft, Ivy Norma, [facility] - 10/12/2023 8:03 PM EDTSigned Prescriptions: Disp Refills Alendronate Sodium 70 MG Oral Tablet (Fosa*12 Tab*3 Sig: TAKE ONE TABLET BY MOUTH EVERY WEEK ON SUNDAYAuthorizing Provider: Kamini GOINS User: IVY CRAFT documented in this encounter Plan of Treatment Upcoming Encounters Date Type Department Care Team (Late st Contact Info) Description 12/18/2023 9:00 AM EDT Office Visit Cardiology, [facility] [address] [facility] [place] [address] Elizabeth Johnson CRNP [address] [facility] [place] [address] 12/21/2023 1:40 PM EDT Office Visit [facility] [address] [place] [id number] Anahy Goins MD [address] [place] [address] 01/17/2024 3:20 PM EDT Office Visit Neurology [facility] [address] [place] [address] Aparna Ruano PA-C [address] [place] [address] 02/20/2024 10:30 AM EDT Office Visit Vascular Surgery, [facility] [address] [facility] [place] [address] Tre Lange MD [address] [place] [address] Scheduled Procedures Name Priority Associated Diagnoses Date/Ti me COLONOSCOPY FLEXIBLE PROXIMAL DIAGNOSTIC Recall Colon cancer screening Health Maintenance Due Date Last Done Comments DISCUSS TOBACCO CESSATION (REFER TO SMARTSET #7977) 1965 COVID-19 Vaccine (#1) 02/09/1969 Alpha-1 Antitrypsin 02/09/1982 Zoster Vaccines (1 of 2) 02/09/1983 Cologuard 02/09/2009 Fecal Occult Blood Test 02/09/2009 Sigmoidoscopy 02/09/2009 *COPD SEVERITY VERIFIED BY PFT 06/25/2022 O2 ASSESSMENT COMPLETED IN PAST YEAR FOR COPD 10/12/2023 10/11/2022 DIG LEVEL FOR MEDICATION MONITORING YEARLY 10/14/2023 10/13/2022, 08/28/2022 DXA Scan 12/07/2023 12/06/2021, 12/06/2021 Influenza Vaccine (FLU shot) (Season Ended) 2024 03/03/2021, 03/03/2021, 02/12/2020, Additional history exists Pneumococcal Vaccine: Pediatrics (0 to 5 Years) [...] D LEVEL ONCE IN A LIFETIME-USE SMARTSET# 52376 Completed 08/01/2023, 08/04/2021 GARDASIL-HPV IMMUNIZATION SERIES Aged Out No longer eligible based on patient's age to complete this topic MENINGOCOCCAL (MENACTRA/MENVEO) Aged Out No longer eligible based on patient's age to complete this topic documented as of this encounter Medical Devices Not on filedocumented as of this encounter Care Teams Auxiliary Plant Operator Relationship Specialty Start Date End Date Anahy Goins MD [address] [place] [address] PCP - General Internal Medicine 01/27/22 documented as of this encounter
--- OUTSIDE RECORDS SUMMARY | 2023-10-25 13:45 | External Medical Summary | Summary of Care ---
Author Name Unknown Organization [facility] Address [address] [place] [address] Phone [phone] Care Team Providers Care Project Eng Name Role Phone Anahy Grayson MD Primary Care Provider [phone] Reason for Visit * Reason Onset Date Comments Appointment 10/23/2023 Encounter Details Date Type Department Care Team (Late st Contact Info) Description 10/23/2023 Telephone [facility], [facility] [address] [facility] [place] [phone] Ludy Christine, Community Health Education Program Associate [address] [place] [address] Appointment Allergies No known active [...] Oral Tablet (Crestor)Indications: Coronary artery disease involving [place] coronary artery of [place] heart without angina pectoris,HFrEF (heart failure with reduced ejection fraction) ([facility]),HTN, goal below 140/90,Dyslipidemia, goal LDL below [...] Active Sarilumab 200 MG/1.14ML Subcutaneous Solution Auto-injector (Cartagenia)Indications: Rheumatoid arthritis involving multiple sites with positive rheumatoid factor ([facility]) Inject 1.14 mL under the skin every 14 days. 2.28 mL 11 03/05/2023 Active Omeprazole 40 MG Oral Capsule Delayed Release (PriLOSEC) Take 1 Capsule by mouth in the morning. 1 hour before the first meal of the day.. 90 Capsule 3 03/15/2023 Active Sildenafil Citrate 20 MG Oral Tablet (Revatio)Indications: Raynaud's disease with gangrene ([facility] [...] tions:HFrEF (heart failure with reduced ejection fraction) ([facility]) TAKE 1 TABLET BY MOUTH EVERY MORNING 90 Tablet 3 05/08/2023 Active Furosemide 20 MG Oral Tablet (Lasix)Indications:HF rEF (heart failure with reduced ejection fraction) ([facility] [...] PVCs,HFrEF (heart failure with reduced ejection fraction) ([facility]),PAF (paroxysmal atrial fibrillation) ([facility]) TAKE 1 TABLET BY MOUTH TWICE DAILY EVERY MORNING AND BEFORE BEDTIME 180 Tablet 3 09/17/2023 Active Eliquis 5 MG Oral Tablet (Apixaban)Indications :Persistent atrial fibrillation (HCC) TAKE 1 TABLET BY MOUTH TWICE DAILY 180 Tablet 10/08/2023 Active oxyCODONE-Acetaminoph en 10-325 MG Oral Tablet (Percocet)Indications :Ischemic foot ulcer due to atherosclerosis of wain[place] artery of limb ([facility]),Rheumatoid arthritis involving multiple sites with positive rheumatoid factor ([facility]) Take 1 Tablet by mouth every 6 hours as needed for Pain, Severe. 120 Tablet 10/11/2023 Active Alendronate Sodium 70 MG Oral Tablet (Fosamax) TAKE ONE TABLET BY MOUTH EVERY WEEK ON SUNDAY 12 Tablet 3 10/12/2023 Active documented as of this encounter (statuses as of 10/23/2023) Active Problems Problem Noted Date Diagnosed Date Substance abuse 10/17/2023 Last Assessment & Plan: [facility] UDS + meth 08/12 Moderate episode [...] Telephone Encounter - Ludy Christine Community Health Education Program Associate - 10/23/2023 10:14 AM EDT Placed on for f/u call for PT/OT documented in this encounter Plan of Treatment Upcoming Encounters Date Type Department Care Team (Late st Contact Info) Description 10/24/2023 10:15 AM EDT Scheduled Telephone [facility], [facility] [address] [place] [address] Coordinator, [facility] [address] [place] [address] 10/24/2023 1:00 PM EDT Scheduled Telephone [facility], [facility] [address] [place] [address] Jimmy Mitchell PA-C [address] [place] [address] 11/06/2023 12:30 PM EDT [facility] Visit [facility], [facility] [address] [place] [address] Cindy Underwood RN [address] [place] [address] 12/17/2023 11:00 AM EDT [facility], [facility] [address] [place] [address] Jimmy Mitchell PA-C [address] [place] [address] 12/18/2023 9:00 AM EDT Office Visit Cardiology, [facility] [address] [facility] [place] [address] Elizabeth Johnson CRNP [address] [place] [address] 12/21/2023 1:40 PM EDT Office Visit Family [place] [address] [place] [phone] Anahy Grayson MD [address] [place] [address] 01/17/2024 3:20 PM EDT Office Visit Neurology [facility] [address] [facility] [place] [address] Aparna Ruano PA-C [address] [facility] [place] [address] 02/20/2024 10:30 AM EDT Office Visit Vascular Surgery, [facility] [address] [facility] [place] [address] Tre Lange MD [address] [facility] [place] [address] Scheduled Procedures Name Priority Associated Diagnoses Date/Ti me COLONOSCOPY FLEXIBLE PROXIMAL DIAGNOSTIC Recall Colon cancer screening Health Maintenance Due Date Last Done Comments DISCUSS TOBACCO CESSATION (REFER TO SMARTSET #5464) 1965 COVID-19 Vaccine (#1) 02/09/1969 Alpha-1 Antitrypsin [...] D LEVEL ONCE IN A LIFETIME-USE SMARTSET# 80884 Completed 08/01/2023, 08/04/2021 GARDASIL-HPV IMMUNIZATION SERIES Aged Out No longer eligible based on patient's age to complete this topic MENINGOCOCCAL (MENACTRA/MENVEO) Aged Out No longer eligible based on patient's age to complete this topic documented as of this encounter Medical Devices Not on filedocumented as of this encounter Care Teams Project Eng Relationship Specialty Start Date End Date Anahy Grayson MD [address] [place] [address] PCP - General Internal Medicine 01/27/22 documented as of this encounter
--- OUTSIDE RECORDS SUMMARY | 2023-10-25 13:45 | External Medical Summary | Summary of Care ---
Author Name Unknown Organization [facility] Address [address] [place] [address] Phone [phone] Care Team Providers Care Quality Control Industrial Engineer Name Role Phone Anahy Grayson MD Primary Care Provider [phone] Reason for Visit * Reason Onset Date Comments Cna Ltc Documentation 10/08/2023 Encounter Details Date Type Department Care Team (Late st Contact Info) Description 10/08/2023 10:30 AM EDT Scheduled Telephone [facility], [facility] [address] [place], [place] [id number] Cynthia Diana, [facility] [address] [place] [address] Allergies No known active allergiesdocumented as of this encounter (statuses as of 10/18/2023) Medications Medication Sig Dispensed Refills Start Date End Date Status Aspirin 81 MG Oral Tablet Delayed Release Take 1 Tablet by mouth in the morning. 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 Worker contacted the number [phone] as directed by the blue [email or web address]. Worker reached Amie Terry's mother. She was [...] was provided . Worker provided contact number [phone] for any follow up needed. Worker reached out to Cindy PITTMAN CM. She was able to provide some insight into Harrison's situation. Worker provided her with the above update. Cynthia Diana LCSW [facility] [phone] documented in this encounter Plan of Treatment Upcoming Encounters Date Type Department Care Team (Late st Contact Info) Description 10/24/2023 1:00 PM EDT Scheduled Telephone [facility], [facility] [address] [place] [address] Jimmy Mitchell PA-C [address] [place] [address] 11/06/2023 12:30 PM EDT Home Visit [facility], [facility] [address] [place] [address] Cindy Underwood RN [address] [place] [address] 12/17/2023 11:00 AM EDT Home Visit [facility], [facility] [address] [place] [address] Jimmy Mitchell PA-C [address] [place] [address] 12/18/2023 9:00 AM EDT Office Visit Cardiology, [facility] [address] [facility] [address] Elizabeth Johnson CRNP [address] [facility] [place] [address] 12/21/2023 1:40 PM EDT Office Visit [facility] [address] [place] [address] Anahy Grayson MD [address] [place] [address] 01/17/2024 3:20 PM EDT Office Visit Neurology [facility] [address] [place] [address] Aparna Ruano PA-C [address] [facility] [address] 02/20/2024 10:30 AM EDT Office Visit Vascular Surgery, [facility] [address] [facility] [place] [address] Tre Lange MD [address] [place] [address] Scheduled Procedures Name Priority Associated Diagnoses Date/Ti me COLONOSCOPY FLEXIBLE PROXIMAL DIAGNOSTIC Recall Colon cancer screening Health Maintenance Due Date Last Done Comments DISCUSS TOBACCO CESSATION (REFER TO SMARTSET #6531) 1965 COVID-19 Vaccine (#1) 02/09/1969 Alpha-1 Antitrypsin [...] D LEVEL ONCE IN A LIFETIME-USE SMARTSET# 76873 Completed 08/01/2023, 08/04/2021 GARDASIL-HPV IMMUNIZATION SERIES Aged Out No longer eligible based on patient's age to complete this topic MENINGOCOCCAL (MENACTRA/MENVEO) Aged Out No longer eligible based on patient's age to complete this topic documented as of this encounter Medical Devices Not on filedocumented as of this encounter Care Teams Quality Control Industrial Engineer Relationship Specialty Start Date End Date Anahy Grayson MD [address] [place] [address] PCP - General Internal Medicine 01/27/22 documented as of this encounter
--- OUTSIDE RECORDS SUMMARY | 2023-10-25 13:45 | External Medical Summary | Summary of Care ---
Author Name Unknown Organization [facility] Address [address] [address] Phone [phone] Care Team Providers Care Clerical Assigner Name Role Phone Anahy Grayson MD Primary Care Provider [phone] Reason for Referral * Evaluate & Treat - Unlimited Visits (Within 10 days (routine)) - Pending Review Specialty Diagnoses / Procedures Referred By Jose tidwell Referred To Contact Psychology Diagnoses Moderate episode of recurrent major depressive disorder (HCC) Substance abuse (HCC) Jimmy Mitchell PA-C [address] [place] [address] Referral ID Status Reason Start Date Expiration Date Visits Requested Visits Authorized [id number] Pending Review Specialty Services Required 10/17/[phone] Question Answer Referral Priority Within 10 days (routine) Where should this appointment be scheduled? [facility] Is this referral for medication management? No Reason for Referral: Depression/Anxiety/Bipolar Specific Condition? Depression Comments Patient scheduling preferences (day/time): any Transportation issues/needs: limited transportation Service location preference: telemed store person to make aware of appointment: patient * Evaluate & Treat - Unlimited Visits (Within 10 days (routine)) - Pending Review Specialty Diagnoses / Procedures Referred By Jose tidwell Referred To Contact Psychiatry Diagnoses Moderate episode of recurrent major depressive disorder (HCC) Substance abuse (HCC) Jimmy Mitchell PA-C [address] [place] [address] Referral ID Status Reason Start Date Expiration Date Visits Requested Visits Authorized [id number] Pending Review Specialty Services Required 10/17/[phone] Question Answer Referral Priority Within 10 days (routine) Where should this appointment be scheduled? [facility] Is this referral for medication management? Yes Reason for Referral Depression Comments Reports PFA by girlfriend/fiance H/o substance abuse, recent urine drug +meth Encounter Details Date Type Department Care Team (Late st Contact Info) Description 10/08/2023 3:00 PM EDT [facility], [facility] [address] [place] [address] Jimmy Mitchell PA-C [address] [place] [address] HFrEF (heart failure with reduced ejection fraction) ([facility])*; Moderate episode of recurrent major depressive disorder (HCC); Rheumatoid arthritis involving multiple sites with positive rheumatoid factor (HCC); PAD (peripheral artery disease) (HCC); Gastro-esophageal reflux disease without esophagitis; Substance abuse (HCC); Advanced care planning/counseling discussion Allergies No known active allergiesdocumented as of this encounter (statuses as of 10/17/2023) Medications Medication Sig Dispensed Refills Start Date End Date Status Aspirin 81 MG Oral Tablet Delayed Release Take 1 Tablet by mouth in the morning. Active Spiriva Respimat 2.5 MCG/ACT Inhalation Aerosol Solution (Tiotropium [place] Monohydrate) Inhale by mouth 2 Puffs in the morning. 4 g 11 03/21/20 Active Vitamin D3 10 MCG (400 UNIT) [...] Oral Tablet (Crestor)Indication s:Coronary artery disease involving elim ira coronary artery of elim ira heart without angina pectoris,HFrEF (heart failure with reduced ejection fraction) ([facility]),HTN, goal below 140/90,Dyslipidemia , goal LDL below [...] Active Sarilumab 200 MG/1.14ML Subcutaneous Solution Auto-injector (Inovus Solar[employer] Pawn)Indication s:Rheumatoid arthritis involving multiple sites with positive [...] TABLET BY MOUTH TWICE DAILY 180 Tablet 10/08/19 24 Active Alendronate Sodium 70 MG Oral Tablet (Fosamax) Take 1 Tablet by mouth once a week. 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 120 Tablet 08/31/19 24 024 Discontinued(Re fill) documented as of this encounter (statuses as of 10/17/2023) Active Problems Problem Noted Date Diagnosed Date Substance abuse 10/17/2023 Last Assessment & Plan: [facility] UDS + meth 08/12 Moderate episode of [...] as of this encounter (statuses as of 10/17/2023) Resolved Problems Problem Noted Date Diagnosed Date [...] as of this encounter (statuses as of 10/17/2023) Immunizations Name Administration Dates Next Due HepA [...] Sign Reading Time Taken Comments Blood Pressure 100/62 10/08/2023 2:30 PM EDT Pulse - - Temperature - - Respiratory Rate - - Oxygen Saturation - - Inhaled Oxygen Concentration - - Weight - - Height - - Body Mass Index - - documented in this encounter Progress Notes * Jimmy Mitchell PA-C - 10/08/2023 2:16 PM EDT Images from the original note were not included. [facility] Problem Oriented Charting Provider Visit Date: 10/08/2023 Time: 2:17 PM [facility] Sub-Program: Focused Care Management (3-9 months) Assessment and Plan #1 HFrEF (heart failure with reduced ejection fraction) ([facility]) (Primary) Assessment & Plan: "RED FLAG" HF Symptoms: [...] today Continue daily weights Low sodium diet #2 Moderate episode of recurrent major depressive disorder (HCC) Assessment & Plan: Continue lexapro Will place behavioral health ref Psychiatry ref, preferably telemed Orders: - Adult/Peds Psychiatry Referral Op - Adult/Peds Psychology Referral OP #3 Rheumatoid arthritis involving multiple sites with positive rheumatoid factor ([facility]) Assessment & Plan: On kevzara Chronic low dose prednisone Prn percocet managed by PCP #4 PAD (peripheral artery disease) ([facility]) Overview: s/p right hallux partial amputation 08/21 #5 Gastro-esophageal reflux disease without esophagitis #6 Substance abuse ([facility]) Assessment & Plan: [facility] UDS + meth 08/12 Orders: - Adult/Peds Psychiatry Referral Op - Adult/Peds Psychology Referral OP Additional Medical Decision Making: Patient currently living with mother Previously living with g/f, reports current PFA prevents him from returning home Initiate DTP, continue monitoring weights Behavioral health ref Psychiatry ref, prefers telemed for PT/OT Scheduled appointments in the next 60 days: Future Appointments-next 60 days Date/Time Provider Specialty Dept Phone 10/08/2023 3:00 PM Jimmy Mitchell PA-C [facility] [phone] 10/11/2023 4:10 PM (Arrive by 3:55 PM) Aparna Ruano PA-C Neurology [phone] 12/18/2023 9:00 AM (Arrive by 8:45 AM) Elizabeth Johnson CRNP Cardiology [phone] 12/21/2023 1:40 PM (Arrive by 1:25 PM) Anahy Grayson MD Family Medicine [phone] 02/20/2024 10:30 AM Tre Lange MD Vascular Surgery [phone] A total of 35 minutes was spent face to face (via video-based telemedicine if designated as a telemedicine visit) Subjective Subjective Is this a Telemedicine Visit? No, this is an Home Visit. Reason For [facility] Visit: Follow-Up Current Concerns: Harrison Morgan is a 58 year old male seen today for a [facility] provider visit. PMH includes CHF, COPD, depression, PAD, afib, RA 08/12-08/30/23 - [facility] - mental health eval, right great toe gangrene (s/p right hallux partial amputation 08/21), acute on chronic chf, afib w/ rvr 08/29-09/19/23 - [facility] Today's concerns are: Recent admissions as above Following rehab, returned to his mothers home States that he was not able to go home due to PFA filed by jordana/abdiel Still having some weakness at home Had a fall about 3 days ago, denies injury Ongoing LEVIN Weight 217lbs (trending up) Increased edema in bilat LE Has generalized pain all over secondary to RA Continues prednisone 5mg daily, sometimes will take additional 5mg if pain is worse Using percocet 2-3xday Increased depression and irritability due to recent medical issues and social situation with jodrana/abdiel Continues lexapro for mood Reviewed + UDS during last admission for meth Initially denies use for past few years, but later admits he may have used in the past 6 months Also admits to previous use of cocaine, although >1 year ago Additional Objective Objective Vitals: 10/08/23 1430 BP: 100/62 Last Weights: Wt Readings from Last 3 Encounters: 10/11/23 98.3 kg (216 lb 12.8 oz) 09/21/23 98.5 kg (217 lb 1.6 oz) 08/07/23 93.9 kg (207 lb) Last BPs: BP Readings from Last 4 Encounters: 10/11/23 108/54 10/08/23 100/62 09/23/23 98/60 09/21/23 102/74 General: alert and no distress Neuro: alert & oriented x 3 with fluent speech Heart: no murmur and irregularly irregular Lungs: decreased breath sounds Abdomen: abdomen soft, non-tender, normal bowel sounds, and no rebound or guarding Ext: +2 edema bilat LE Lab Review: I have reviewed the following results: Imaging results in the last 6 months XR CHEST 1 VIEW Result Date: 08/05/2023 IMPRESSION: Cardiomegaly. Question mild chronic pulmonary edema. No focal consolidation. THIS DOCUMENT HAS BEEN ELECTRONICALLY SIGNED BY MACRIAN FLETCHER MD [facility] ANKLE BRACHIAL INDICES WITH PPG (DIABETIC FOOT/VASOSPASM) Result Date: 08/01/2023 : DERRICK at rest is 1.1 on the right and 1.0 on the left. For the right lower extremity: Lower extremity Doppler Evaluation at rest is normal with no evidence of significant arterial occlusive disease. Normal large vessel arterial flow to the level of the ankle with small vessel arterial occlusive disease. For the left lower extremity: Lower extremity Doppler Evaluation at rest is normal with no evidence of significant arterial occlusive disease. Normal large vessel arterial flow to the level of the ankle with small vessel arterial occlusive disease. CTA ABD AORTA/FEM RUNOFF W CONTRAST Result Date: 07/28/2023 IMPRESSION 1. Moderate disease of right SFA with focal high-grade stenosis in the distal segment. 2. Two vessel runoff to right foot. 3. Diminutive left anterior tibial and posterior tibial arteries with dominant peroneal artery runoff. 4. Similar bibasilar solid nodules concerning for underlying metastatic disease. Recommend PET-CT/tissue sampling for further evaluation. 5. Interval progression of moderate chronic L1 and mild chronic T10 compression fracture deformities. I have personally reviewed this examination and agree with the resident/fellow physician's interpretation. I have personally reviewed this examination and agree with the resident/fellow physician's interpretation. VASC ANKLE BRACHIAL INDICES WITH PPG (DIABETIC FOOT/VASOSPASM) Result Date: 07/02/2023 : DERRICK at rest is 0.92 on the right and 1.0 on the left. For the right lower extremity: Lower extremity Doppler Evaluation at rest is normal with no evidence of significant arterial occlusive disease.Abnormal PPGs that do not improve with warm water immersion suggest fixed small vessel arterial occlusive disease. For the left lower extremity: Lower extremity Doppler Evaluation at rest is normal with no evidence of significant arterial occlusive disease. Abnormal PPGs that do not improve with warm water immersion suggest fixed small vessel arterial occlusive disease. CT CHEST WO CONTRAST Result Date: 06/10/2023 IMPRESSION: 1. Persistent bilateral pulmonary nodules, largest 1 identified at left upper lobe, consider PET-CT scan for further evaluation. 2. Stable appearing osseous finding with newly developed superior endplate fracture of T4. THIS DOCUMENT HAS BEEN ELECTRONICALLY SIGNED BY CONCHA SEVERINO MD CTA NECK Result Date: 04/26/2023 IMPRESSION 1. Evolving small subacute infarcts in the left frontal centrum semiovale. 2. No evidence of intracranial large vessel occlusion. 3. Atherosclerotic disease involving the bilateral carotidbifurcations without significant internal carotid artery stenosis. 4. Interval slight decrease in the size of previously-seen left upper lobe pulmonary nodule. 5. Interval appearance of superior endplate compression fracture of the T4 vertebra with associated mild loss of vertebral height. 6. Similar left maxillary sinus disease. CTA HEAD Result Date: 04/26/2023 IMPRESSION 1. Evolving small subacute infarcts in the left frontal centrum semiovale. 2. No evidence of intracranial large vessel occlusion. 3. Atherosclerotic disease involving the bilateral carotidbifurcations without significant internal carotid artery stenosis. 4. Interval slight decrease in the size of previously-seen left upper lobe pulmonary nodule. 5. Interval appearance of superior endplate compression fracture of the T4 vertebra with associated mild loss of vertebral height. 6. Similar left maxillary sinus disease. BMP results Recent Labs Units 08/05/23 1459 07/18/23 1530 03/28/23 1339 SODIUM - [facility] mmol/L 136 140 138 POTASSIUM - [facility] mmol/L 4.4 4.5 4.4 CHLORIDE - [facility] mmol/L 99 102 99 CO2 - [facility] mmol/L 25 24 27 CREATININE - [facility] mg/dL 1.3* 1.1 1.3* BUN - [facility] mg/dL 20 27* 33* Lipid panel results Recent Labs Units 08/28/22 1120 CHOLESTEROL - [facility] mg/dL 135 LDL CHOLESTEROL (CALCULATED) - [facility] mg/dL 43 HDL CHOLESTEROL - [facility] mg/dL 63 TRIGLYCERIDES - [facility] mg/dL 146 CBC results Recent Labs Units 08/05/23 1459 08/01/23 1132 03/28/23 1339 WBC K/uL 10.19 5.79 7.34 HGB g/dL 16.6 15.7 16.0 HCT % 52.0* 49.3* 53.8* PLT K/uL 227 210 313 HbA1c results Recent Labs Units 01/31/22 1009 HEMOGLOBIN A1C - [facility] % 5.9* Mobility Evaluation: [facility] Assessment: Assistive Devices Used in the Home: Walker (standard or rollator) Manual Wheelchair Jimmy Mitchell PA-C 2:17 PM *Communication sent to PCP (via autofax if non[facility]), [facility] Health Care Team members,relevant Specialty Care Physicians* documented in this encounter Miscellaneous Notes * ACP (Advance Care Planning) - Jimmy Mitchell PA-C - 10/17/2023 12:29 PM EDT Patient-centered Communication 10/08/2023 The patient/surrogate voluntarily agreed to participate in advance care planning discussion. They were advised that this is a separate service which may incur out of pocket cost in the form of copayment and/or deductibles. Location: Home Individual(s) present for conversation: Patient Decisions Synopsis SmartCopiny Most Recent Value Past ~10 years 08/08/2022 13:58 Decisions CPR decision: Patient chooses CPR 08/08/2022 Patient chooses CPR Intubation/Mechanical Ventilation decision: Patient chooses Intubation/mechanical ventilation 08/08/2022 Patient chooses Intubation/mechanical ventilation Non-invasive ventilation or BIPAP decision: Patient chooses non-invasive ventilation. Select interventions below 08/08/2022 Patient chooses non-invasive ventilation. Select interventions below Non-Invasive Ventilation Interventions: Oxygen only;CPAP;BIPAP;NIV 07/27/2022 Antibiotic therapy decision: Patient chooses Antibiotic therapy 08/08/2022 Patient chooses Antibiotic therapy Artificial nutrition decision: Patient chooses Artificial nutrition 07/27/2022 IV hydration decision: Patient chooses IV hydration 08/08/2022 Patient chooses IV hydration Chemotherapy decision: Patient chooses Chemotherapy 07/27/2022 Radiation therapy decision: Patient chooses Radiation therapy 07/27/2022 Surgical procedure(s) decision: Patient chooses Surgical procedure 07/27/2022 Blood transfusion decision: Patient chooses Blood transfusion 08/08/2022 Patient chooses Blood transfusion Lab draw decision: Patient chooses Lab draws 08/08/2022 Patient chooses Lab draws Transport decision: Patient chooses Transport 07/27/2022 Dialysis decision: Patient chooses Dialysis 07/27/2022 Additional Comments Synopsis SmartLink Most Recent Value Past ~10 years 10/17/2023 12:29 Additional Comments Additional Comments: full code. 10/17/2023 full code. Discerning What Matters Most to the Patient: Synopsis SmartLink Most Recent Value Past ~10 years 10/17/2023 12:28 Discerning What Matters Most to the Patient Their current SYMPTOMS include: Pain;Shortnes of breath;Depression;Anxiety;Reduced overall well being 10/17/2023 Pain;Shortnes of breath;Depression;Anxiety;Reduced overall well being The patient's HOPES are: Maintain current functional abilities;Avoid the jail 10/17/2023 Maintain current functional abilities;Avoid the jail Source: Content from [facility] Aligning Care With What Matters Most: Synopsis SmartLink Most Recent Value Past ~10 years 08/08/2022 13:58 Aligning Care With What Matters Most Interventions/Choices: CPR;Intubation/mechanical ventilation;Antibiotic therapy;Non-invasive ventilation or BIPAP;IV hydration;Blood transfusion;Lab draws 08/08/2022 CPR;Intubation/mechanical ventilation;Antibiotic therapy;Non-invasive ventilation or BIPAP;IV hydration;Blood transfusion;Lab draws Rationale for Decisions Synopsis SmartLink Most Recent Value Past ~10 years 07/27/2022 10:21 Intubation/mechanical ventilation Their goals for Intubation/mechanical ventilation treatment are: short term only 07/27/2022 short term only Source: Content from [facility] 15 minutes spent in direct [id number] discussion today, Jimmy Mitchell PA-C * Assessment & Plan Note - Jimmy Mitchell PA-C - 10/17/2023 12:19 PM EDT Associated Problem(s): Substance abuse (HCC) [facility] UDS + meth 08/12 * Assessment & Plan Note - Jimmy Mitchell PA-C - 10/17/2023 12:14 PM EDT Associated Problem(s): Moderate episode of recurrent major depressive disorder (HCC) Continue lexapro Will place behavioral health ref Psychiatry ref, preferably telemed * Assessment & Plan Note - Jimmy Mitchell PA-C - 10/17/2023 12:11 PM EDT Associated Problem(s): Rheumatoid arthritis involving multiple sites with positive rheumatoid factor (HCC) On pricilla Chronic low dose prednisone Prn percocet managed by PCP * Assessment & Plan Note - Jimmy Mitchell PA-C - 10/17/2023 12:10 PM EDT Associated Problem(s): HFrEF (heart failure with reduced ejection fraction) (HCC) "RED FLAG" HF Symptoms: Leg Swelling (Examples: [...] today Continue daily weights Low sodium diet documented in this encounter Plan of Treatment Upcoming Encounters Date Type Department Care Team (Late st Contact Info) Description 10/24/2023 1:00 PM EDT Scheduled Telephone [facility], [facility] [address] [place] [address] Jimmy Mitchell PA-C [address] [place] [address] 12/17/2023 11:00 AM EDT Home Visit [facility], [facility] [address] [place] [address] Jimmy Mitchell PA-C [address] [facility] [place] [address] 12/18/2023 9:00 AM EDT Office Visit Cardiology, [facility] [address] [facility] [place] [address] Elizabeth Johnson CRNP [address] [facility] [place] [address] 12/21/2023 1:40 PM EDT Office Visit [facility] [address] [place] [id number] Anahy Grayson MD [address] [place] [address] 01/17/2024 3:20 PM EDT Office Visit Neurology [facility] [address] [place] [address] Aparna Ruano PA-C [address] [place] [address] 02/20/2024 10:30 AM EDT Office Visit Vascular Surgery, [facility] [address] [place] [address] Tre Lange MD [address] [place] [address] Scheduled Procedures Name Priority Associated Diagnoses Date/Ti me COLONOSCOPY FLEXIBLE PROXIMAL DIAGNOSTIC Recall Colon cancer screening Scheduled Referrals Name Type Priority Associated Diagnoses Orde r Schedule ADULT/PEDS PSYCHIATRY REFERRAL OP Referral Within 10 days (routine) Moderate episode of recurrent major depressive disorder (HCC) Substance abuse (HCC) Ordered: 10/17/2023 ADULT/PEDS PSYCHOLOGY REFERRAL OP Referral Within 10 days (routine) Moderate episode of recurrent major depressive disorder (HCC) Substance abuse (HCC) Ordered: 10/17/2023 Health Maintenance Due Date Last Done Comments DISCUSS TOBACCO CESSATION (REFER TO SMARTSET #7054) 1965 COVID-19 Vaccine (#1) 02/09/1970 Alpha-1 Antitrypsin [...] D LEVEL ONCE IN A LIFETIME-USE SMARTSET# [id number] Completed 08/01/2023, 08/04/2021 GARDASIL-HPV IMMUNIZATION SERIES Aged Out No longer eligible based on patient's age to complete this topic MENINGOCOCCAL (MENACTRA/MENVEO) Aged Out No longer eligible based on patient's age to complete this topic documented as of this encounter Medical Devices Not on filedocumented as of this encounter Visit Diagnoses Diagnosis HFrEF (heart failure with reduced ejection fraction) (HCC)- Primary Moderate episode of recurrent major depressive disorder (HCC) Rheumatoid arthritis involving multiple sites with positive rheumatoid factor (HCC) PAD (peripheral artery disease) (HCC) Peripheral vascular disease, unspecified Gastro-esophageal reflux disease without esophagitis Esophageal reflux Substance abuse (HCC) Other, mixed, or unspecified nondependent drug abuse, unspecified Advanced care planning/counseling discussion Other specified counseling documented in this encounter Care Teams Clerical Assigner Relationship Specialty Start Date End Date Anahy Grayson MD [address] [place] [address] PCP - General Internal Medicine 01/27/22 documented as of this encounter
--- OUTSIDE RECORDS SUMMARY | 2023-10-25 13:45 | External Medical Summary | Summary of Care ---
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 10/08/2023 Encounter Details Date Type Department Care Team (Late st Contact Info) Description 10/08/2023 10:30 AM EDT Scheduled Telephone [facility], [facility] [address], [place] [id number] Cynthia Diana, [facility] [address] [place] [address] Allergies No known active allergiesdocumented as of [...] Oral Tablet (Crestor)Indication s:Coronary artery disease involving nome coronary artery of nome heart without angina pectoris,HFrEF (heart failure with reduced ejection fraction) ([facility]),HTN, goal below 140/90,Dyslipidemia , goal LDL [...] Active Sarilumab 200 MG/1.14ML Subcutaneous Solution Auto-injector (ExactFlatzara)Indication s:Rheumatoid arthritis involving multiple sites with positive rheumatoid factor ([facility]) Inject 1.14 mL under the skin every 14 days. 2.28 mL 11 03/05/20 23 Active Omeprazole 40 MG Oral Capsule Delayed Release (PriLOSEC) Take 1 Capsule by mouth in the morning. 1 hour before the first meal of the day.. 90 Capsule 3 03/15/20 23 Active Sildenafil Citrate 20 MG Oral Tablet (Revatio)Indication s:Raynaud's disease with gangrene ([facility]) TAKE ONE TABLET BY MOUTH EVERY MORNING , 1 TABLET AT NOON AND 2 TABLETS BEFORE BEDTIME 90 Tablet 2 03/30/20 23 Active sulfaSALAzine 500 MG Oral Tablet Delayed Release (Azulfidine Entab) Take 1 Tablet by mouth in the morning. 2 tablets twice daily. 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 Worker contacted the number [phone] as directed by the blue meloniey. Worker [...] was provided . Worker provided contact number [phone] for any follow up needed. Worker reached out to Cindy PITTMAN CM. She was able to provide some insight into Harrison's situation. Worker provided her with the above update. Cynthia Diana LCSW [facility] Inspector Screen Printing [facility] [phone] documented in this encounter Plan of Treatment Upcoming Encounters Date Type Department Care Team (Late st Contact Info) Description 10/24/2023 1:00 PM EDT Scheduled Telephone [facility], [facility] [address] [address] Jimmy Mitchell PA-C [address] [place] [address] 12/17/2023 11:00 AM EDT Home Visit [facility] [place], [facility] [address] [address] Jimmy Mitchell PA-C [address] [place] [address] 12/18/2023 9:00 AM EDT Office Visit Cardiology, [facility] [address] [address] Elizabeth Johnson CRNP [address] [place] [address] 12/21/2023 1:40 PM EDT Office Visit [facility] [address] [place] [phone] Anahy Grayson MD [address] [place], [place] [phone] 01/17/2024 3:20 PM EDT Office Visit Neurology [facility] [address] [facility] [place] [address] Aparna Ruano PA-C [address] [facility] [place] [address] 02/20/2024 10:30 AM EDT Office Visit Vascular Surgery, [facility] [address] [facility] [place] [address] Tre Lange MD [address] [place] [address] Scheduled Procedures Name Priority Associated [...] D LEVEL ONCE IN A LIFETIME-USE SMARTSET# 22340 Completed 08/01/2023, 08/04/2021 GARDASIL-HPV IMMUNIZATION SERIES Aged Out No longer eligible based on patient's age to complete this topic MENINGOCOCCAL (MENACTRA/MENVEO) Aged Out No longer eligible based on patient's age to complete this topic documented as of this encounter Medical Devices Not on filedocumented as of this encounter Care Teams Pool Coordinator Relationship Specialty Start Date End Date Anahy Grayson MD [address] [place] [address] PCP - General Internal Medicine 01/27/22 documented as of this encounter
--- OUTSIDE RECORDS SUMMARY | 2023-10-25 13:46 | External Medical Summary | Summary of Care ---
Author Name Unknown Organization [facility] Address [address] [place] [address] Phone [phone] Care Team Providers Care Forest Worker Name Role Phone Anahy Grayson MD Primary Care Provider Reason for Visit * Reason Onset Date Comments Health Companion Documentation 10/08/2023 Encounter Details Date Type Department Care Team (Late st Contact Info) Description 10/08/2023 10:30 AM EDT Scheduled Telephone [facility], [facility] [address] [facility] [place] [phone] [facility] [address] [facility] [place] [phone] Allergies No known active allergiesdocumented as of this encounter (statuses as of 10/08/2023) Medications Medication Sig Dispensed Refills Start Date End Date Status Aspirin 81 MG Oral Tablet Delayed Release Take 1 Tablet by mouth in the morning. 0 Active Spiriva Respimat 2.5 MCG/ACT Inhalation Aerosol Solution (Tiotropium [place] Monohydrate) Inhale by mouth 2 Puffs in [...] 08/08/2022 Active Eliquis 5 MG Oral Tablet (Apixaban)Indications :Persistent atrial fibrillation (HCC) TAKE ONE TABLET BY MOUTH 2 TIMES A DAY 180 Tablet 3 08/15/2022 Active Rosuvastatin Calcium 5 MG Oral Tablet (Crestor)Indications: Coronary artery disease involving blackfeet coronary artery of blackfeet heart without angina pectoris,HFrEF (heart failure with reduced ejection fraction) ([facility]),HTN, goal below 140/90,Dyslipidemia, goal LDL [...] Active Sarilumab 200 MG/1.14ML Subcutaneous Solution Auto-injector (ZootRockzara)Indications: Rheumatoid arthritis involving multiple sites with positive [...] Oral Tablet (Revatio)Indications: Raynaud's disease with gangrene ([facility]) TAKE ONE TABLET BY MOUTH EVERY MORNING , 1 TABLET AT NOON AND 2 TABLETS BEFORE BEDTIME 90 Tablet 2 03/30/2023 Active sulfaSALAzine 500 MG Oral Tablet Delayed Release (Azulfidine Entab) Take 1 Tablet by mouth in the morning. 2 tablets twice daily. 0 Active Jardiance 10 MG Oral Tablet (Empagliflozin)Indica tions:HFrEF (heart failure with reduced ejection fraction) ([facility]) TAKE 1 TABLET BY MOUTH EVERY MORNING 90 Tablet 3 05/08/2023 Active Furosemide 20 MG Oral Tablet (Lasix)Indications:HF rEF (heart failure with reduced ejection fraction) ([facility] [...] with positive rheumatoid factor ([facility]) TAKE 1 TO 2 TABLETS [...] TWICE DAILY. 180 Tablet 3 09/04/2023 Active oxyCODONE-Acetaminoph en 10-325 MG Oral Tablet (Percocet)Indications :Ischemic foot ulcer due to atherosclerosis of blackfeet artery of limb ([facility]),Rheumatoid arthritis involving multiple sites with positive rheumatoid factor ([facility]) Take 1 Tablet by mouth every 6 hours as needed for Pain, Severe. 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 Worker contacted the number [phone] as directed by the blue sticky. Worker reached Amie Terry's mother. She was pleasant on the phone. Worker discussed services in the community. Amie stated that "we are doing fine here and we don't need anything". Amie offered no other complaints or concerns at this time. Emotional Support was offered. Amie was encouraged to contact the [facility] Team with any questions or concerns . Phone number for [facility] was provided . Worker provided contact number [phone] for any follow up needed. Worker reached out to Cindy PITTMAN CM. She was able to provide some insight into Harrison's situation. Worker provided her with the above update. Cynthia Diana LCSW [facility] Type Rolling Machine Operator [facility] [phone] documented in this encounter Plan of Treatment Upcoming Encounters Date Type Department Care Team (Late st Contact Info) Description 10/08/2023 3:00 PM EDT [facility] Visit [facility], [facility] [address] [address] Jimmy Mitchell PA-C [address] [place] [address] 10/11/2023 4:10 PM EDT Office Visit Neurology [facility] [address] [facility] [place] [address] Aparna Ruano PA-C [address] [facility] [place] [address] 12/18/2023 9:00 AM EDT Office Visit Cardiology, [facility] [address] [place] [address] Elizabeth Johnson CRNP [address] [place] [address] 12/21/2023 1:40 PM EDT Office Visit [address] [place] [phone] Anahy Grayson MD [address] [place] [facility] [place] [address] 02/20/2024 10:30 AM EDT Office Visit Vascular Surgery, [facility] [address] [facility] [place] [address] Tre Lange MD [address] [place] [facility] [place] [address] Scheduled Procedures Name Priority Associated Diagnoses Date/Ti me COLONOSCOPY FLEXIBLE PROXIMAL DIAGNOSTIC Recall Colon cancer screening Health Maintenance Due Date Last Done Comments DISCUSS TOBACCO CESSATION (REFER TO SMARTSET #2034) 1965 COVID-19 Vaccine (#1) 02/09/1969 Alpha-1 Antitrypsin [...] D LEVEL ONCE IN A LIFETIME-USE SMARTSET# 23807 Completed 08/01/2023, 08/04/2021 GARDASIL-HPV IMMUNIZATION SERIES Aged Out No longer eligible based on patient's age to complete this topic MENINGOCOCCAL (MENACTRA/MENVEO) Aged Out No longer eligible based on patient's age to complete this topic documented as of this encounter Medical Devices Not on filedocumented as of this encounter Care Teams Forest Worker Relationship Specialty Start Date End Date Anahy Grayson MD [address] [place] [address] PCP - General Internal Medicine 01/27/22 documented as of this encounter
--- OUTSIDE RECORDS SUMMARY | 2023-10-25 13:46 | External Medical Summary | Summary of Care ---
Author Name Unknown Organization [facility] Address [address] [place] [address] Phone [phone] Care Team Providers Care Diamond Cleaner Name Role Phone Anahy Grayson MD Primary Care Provider [phone] Reason for Visit * Reason Comments Hospital Follow-Up Patient is here toda for a hospital follow up.Patient states he is still a little weak, and his legs are painful. Encounter Details Date Type Department Care Team (Latest Contact Info) Description 09/21/2023 2:00 PM EDT Office Visit [facility] [address] [place] [address] Anahy Grayson MD [address] [place] [address] Amputation of right great toe ([facility])*; COPD, group B, by GOLD 2017 classification ([facility]); Leg swelling; PAD (peripheral artery disease) (HCC); Ischemic toe; Chronic systolic heart failure (HCC); Cardiomyopathy, unspecified type ([facility]); Persistent atrial fibrillation ([facility]); HFrEF (heart failure with reduced ejection fraction) ([facility]); Rheumatoid arthritis involving multiple sites with positive rheumatoid factor ([facility]) Allergies No known active allergiesdocumented as of this encounter (statuses as of 10/12/2023) Medications Medication Sig Dispensed Refills Start Date End Date Status Aspirin 81 MG Oral Tablet Delayed Release Take 1 Tablet by mouth in the morning. 0 Active Spiriva Respimat 2.5 MCG/ACT Inhalation Aerosol Solution (Tiotropium [place] Monohydrate) Inhale by mouth 2 Puffs in the morning. 4 g 03/21/20 22 Active Vitamin D3 10 MCG [...] Oral Tablet (Crestor)Indication s:Coronary artery disease involving [place] coronary artery of [place] heart without angina pectoris,HFrEF (heart failure with reduced ejection fraction) ([facility]),HTN, goal below 140/90,Dyslipidemia , goal LDL below 70,Palpitations TAKE ONE TABLET BY MOUTH EVERY MORNING 30 Tablet 11 11/01/19 23 Active Alendronate Sodium 70 MG Oral Tablet (Fosamax) Take 1 Tablet by mouth once a week. 4 Tablet 12 12/16/19 23 Active Nitroglycerin 0.4 MG Sublingual Tablet Sublingual (Nitrostat) Place 1 Tablet under the tongue every 5 minutes as needed for Pain, Chest. up to 3 doses in 15 minutes 25 Tablet 11 12/16/19 23 Active Ondansetron HCl 4 MG Oral Tablet Take 1 Tablet by mouth every 8 hours as needed for Nausea. 20 Tablet 0 01/10/20 23 Active Sarilumab 200 MG/1.14ML Subcutaneous Solution Auto-injector (iTaggedzara)Indication s:Rheumatoid arthritis involving multiple sites with positive [...] cations:HFrEF (heart failure with reduced ejection fraction) (HCC) [...] factor ([facility]) TAKE 1 TO 2 TABLETS BY MOUTH ONCE DAILY FOR RHEUMATOID ARTHRITIS 60 Tablet 5 08/01/19 24 Active Escitalopram Oxalate 10 MG Oral Tablet (Lexapro) Take 1 Tablet by mouth in the morning. 30 Tablet 0 08/05/19 24 Active Spironolactone 25 MG Oral [...] 180 Tablet 3 08/16/19 23 024 Discontinued oxyCODONE-Acetamino phen 10-325 MG Oral Tablet (Percocet)Indicatio ns:Ischemic foot ulcer due to atherosclerosis of [place] artery of limb (HCC),Rheumatoid arthritis involving multiple sites with positive rheumatoid factor (HCC) Take 1 Tablet by mouth every 6 hours as needed for Pain, Severe. 120 Tablet 0 08/31/19 24 024 Discontinued(Re fill) documented as [...] Sign Reading Time Taken Comments Blood Pressure 102/74 09/21/2023 2:16 PM EDT Pulse 113 09/21/2023 2:16 PM EDT Temperature 36.3 C (97.3 F) 09/21/2023 2:16 PM ED T Respiratory Rate 16 09/21/2023 2:16 PM EDT Oxygen Saturation 99% 09/21/2023 2:16 PM EDT Inhaled Oxygen Concentration - - Weight 98.5 kg (217 lb 1.6 oz) 09/21/2023 2:16 P M EDT Height - - Body Mass Index 33.01 05/17/2023 1:17 PM EST documented in this encounter Patient Instructions * Patient Instructions* Anahy Grayson MD - 09/21/2023 2:37 PM EDT Take extra lasix 20 mg in the afternoon before 4pm for 3 daysv And ok to take lasix 20 mg AM + 20 mg PM afterwards Compression stockings F/u with cardio, vascular, neuro , and rheuma documented in this encounter Progress Notes * Anahy Grayson MD - 10/05/2023 9:56 AM EDT Subjective Harrison Morgan is a 58 year old male. Chief Complaint Patient presents with Hospital Follow-Up Patient is here today for a hospital follow up. Patient states he is still a little weak, and his legs are painful. HPI: Here for hospital discharge f/u Admission aug 12 Discharge aug 4 And then SNF admission Aug 4 [facility] discharge on 09.18 Dx : PAD, ischemic toe with necrosis, rt big toe , s/p amputation on aug 15 by podiatry Additional dx : known CAD, elevated troponin mild , chronic, RF, chronic systolic CMP/CHF , afib S/p partial amputation Difficulty situation due to chronic pain and no good family support at this time , living in mother's Transportation issue, and misses appointments A fib , PAD, CMP, metoprolol , lasix and eliquis RA, active, taking med , f/u with rheuma Still smoking, known COPD< denies breathing issue Taking inhalers Depression anxiety , taking med But current medical conditions are causing his depression worse , declined med change though PMH: Patient Active Problem List Diagnosis Code DJD (degenerative joint disease) M19.90 Erectile dysfunction N52.9 Tobacco use disorder F17.200 MEDICATION USE AGREEMENT [id number] Rheumatoid arthritis involving multiple sites with positive rheumatoid factor ([facility]) M05.79 Hepatitis C virus infection cured after antiviral drug therapy Z86.19 Effusion of left knee M25.462 Knee pain M25.569 Tear of lateral meniscus of knee S83.289A Gastro-esophageal reflux disease without esophagitis K21.9 PAD (peripheral artery disease) ([facility]) I73.9 Depression with anxiety F41.8 Cardiomyopathy ([facility]) I42.9 DDD (degenerative disc disease), lumbar M51.36 Immunodeficiency due to drugs ([facility]) D84.821, Z79.899 Age-related nuclear cataract, bilateral H25.13 SVT (supraventricular tachycardia) ([facility]) I47.10 Frequent PVCs I49.3 Chronic systolic heart failure ([facility]) I50.22 long term systemic steroid user Z79.52 Scoliosis M41.9 COPD, group B, by GOLD 2017 classification ([facility]) J44.9 HFrEF (heart failure with reduced ejection fraction) ([facility]) I50.20 Persistent atrial fibrillation ([facility]) I48.19 Encounter for long-term (current) use of medications Z79.899 Lung nodules R91.8 Lung mass R91.8 Senile osteoporosis M81.0 Food insecurity Z59.41 Small vessel disease ([facility]) I73.9 Moderate episode of recurrent major depressive disorder ([facility]) F33.1 Current Outpatient Medications Medication Sig Dispense Refill Aspirin 81 MG Oral Tablet Delayed Release Take 1 Tablet by mouth in the morning. Spiriva Respimat 2.5 MCG/ACT Inhalation Aerosol Solution (Tiotropium [place] Monohydrate) Inhale bymouth 2 Puffs in the morning. 4 g 11 Vitamin D3 10 MCG (400 UNIT) Oral Tablet Take 1 Tablet by mouth in the morning. Centrum Silver 50+Men Oral Tablet Take 1 Tablet by mouth in the morning. oxygen IN GAS Use 2 L/min(Oxygen) as directed. Metoprolol Succinate ER 100 MG Oral Tablet [...] 2 TIMES A DAY 180 Tablet 3 Rosuvastatin Calcium 5 MG Oral Tablet (Crestor) [...] 0 Sarilumab 200 MG/1.14ML Subcutaneous Solution Auto-injector ([employer]) Inject 1.14 mL under the skinevery 14 [...] in the morning. 2 tablets twice daily. Jardiance 10 MG Oral Tablet (Empagliflozin) TAKE 1 TABLET BY MOUTH EVERY MORNING 90 Tablet 3 Furosemide 20 MG Oral Tablet (Lasix) Take 2 Tablets by mouth in the morning. (Patient taking differently: Take 2 Tablets by mouth in the morning. Pt takes 2 tabs every morning and additional 1 in theafternoon as needed for edema.) 180 Tablet 3 predniSONE 5 MG Oral Tablet (Deltasone) TAKE 1 TO 2 TABLETS BY MOUTH ONCE DAILY FOR RHEUMATOID ARTHRITIS 60 Tablet 5 Escitalopram Oxalate 10 MG Oral Tablet (Lexapro) Take 1 Tablet by mouth in the morning. 30 Tablet 0 Spironolactone 25 MG Oral Tablet (Aldactone) TAKE 1/2 TABLET BY MOUTH EVERY MORNING 45 Tablet 3 Metoprolol Succinate ER 25 MG Oral Tablet Extended Release 24 Hour (toPROL XL) TAKE ONE TABLET BY MOUTH IN THE MORNING AND BEFORE BEDTIME IN ADDITION TO 100MG. TOTAL 125MG TWICE DAILY. 180 Tablet 3 oxyCODONE-Acetaminophen 10-325 MG Oral Tablet (Percocet) Take 1 Tablet by mouth every 6 hours as needed for Pain, Severe. 120 Tablet 0 Entresto 24-26 MG Oral Tablet (sacubitril-valsartan 24-26 mg per tab) TAKE 1 TABLET BY MOUTH TWICE DAILY EVERY MORNING AND BEFORE BEDTIME 180 Tablet 3 No current facility-administered medications for this visit. Past Medical History: Diagnosis Date Lung nodule Primary localized osteoarthrosis of shoulder region 05/28/2008 right Rotator cuff syndrome 05/28/2008 right Tobacco use disorder Past Surgical History: Procedure Laterality Date BRONCHOSCOPY, DIAGNOSTIC N/A 10/11/2022 BRONCHOSCOPY DIAGNOSTIC WITH OR WITHOUT WASHING performed by Randall England MD at [facility]COPY [facility] COLONOSCOPY, DIAGNOSTIC (RECTUM) 07/24/2017 normal, repeat 10 yrs/COLONOSCOPY FLEXIBLE PROXIMAL DIAGNOSTIC performed by Paul Verma MD at ENDOSCOPY [facility] DENTAL SURGERY PROCEDURE NEC age 15 [...] on file Occupational History 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 Possible mold in his home. job: [employer] employer: [employer] education: 12 service: no hobbies/interests: Hunting fishing transfusions: no exercise: little diet: no yazidism/baptist: no marital status: 09/26 children: 3/ gc: [...] of Systems Constitutional: Positive for activity change and fatigue. Negative for appetite change, chills, diaphoresis, fever and unexpected weight change. HENT: Negative for hearing loss. Eyes: Negative for visual disturbance. Respiratory: Positive for shortness of breath (on exertion occ). Negative for cough, chest tightness and wheezing. Cardiovascular: Positive for leg swelling. Negative for chest pain and palpitations. Gastrointestinal: Negative for abdominal distention, abdominal pain, nausea and vomiting. Endocrine: Negative. Genitourinary: Negative for hematuria. Musculoskeletal: Positive for arthralgias, back pain, gait problem, joint swelling, myalgias, neck pain and neck stiffness. Skin: Positive for wound (rt toe - partial amputation). Negative for rash. Allergic/Immunologic: Positive for immunocompromised state. Neurological: Positive for numbness. Negative for dizziness, weakness and light-headedness. Psychiatric/Behavioral: Positive for dysphoric mood and sleep disturbance. Negative for agitation and behavioral problems. The patient is nervous/anxious. Objective BP 102/74 | Pulse 113 | Temp 36.3 C (97.3 F) (Tympanic) | Resp 16 | Wt 98.5 kg (217 lb 1.6 oz) | SpO2 99% | BMI 33.01 kg/m | BSA 2.17 m Physical Exam Constitutional: General: He is not in acute distress. Appearance: Normal appearance. He is not ill-appearing, toxic-appearing or diaphoretic. HENT: Head: Normocephalic and atraumatic. Nose: Nose normal. Eyes: Extraocular Movements: Extraocular movements intact. Cardiovascular: Rate and Rhythm: Tachycardia present. Rhythm irregular. Pulses: Normal pulses. Pulmonary: Effort: Pulmonary effort is normal. No respiratory distress. Breath sounds: No stridor. No wheezing, rhonchi or rales. Chest: Chest wall: No tenderness. Musculoskeletal: General: Tenderness present. Right lower leg: Edema present. Left lower leg: Edema present. Neurological: General: No focal deficit present. Mental Status: He is alert and oriented to person, place, and time. Cranial Nerves: No cranial nerve deficit. Psychiatric: Behavior: Behavior normal. Comments: Depression anxiety ASSESSMENT/PLAN: Amputation of right great toe (HCC) (Primary) COPD, group B, by GOLD 2017 classification (HCC) Leg swelling - DURABLE MEDICAL EQUIPMENT PAD (peripheral artery disease) (HCC) Ischemic toe Chronic systolic heart failure (HCC) Cardiomyopathy, unspecified type (HCC) Persistent atrial fibrillation (HCC) HFrEF (heart failure with reduced ejection fraction) (HCC) Rheumatoid arthritis involving multiple sites with positive rheumatoid factor (HCC) Follow Up: Return in about 3 months (around 12/21/2023) for Clinic Visit. | For: Clinic Visit | Check-out note: Schedule with neuro, vascular , cardio , rheumatology Patient Instructions Take extra lasix 20 mg in the afternoon before 4pm for 3 daysv And ok to take lasix 20 mg AM + 20 mg PM afterwards Compression stockings F/u with cardio, vascular, neuro , and rheuma Cont other meds F/u with podiatry Anahy Grayson MD documented in this encounter Nursing Notes * Emilia Siu LPN - 09/21/2023 2:19 PM EDT The patient has been properly identified by confirmation of name and date of . Chief Complaint Patient presents with Hospital Follow-Up Patient is here today for a hospital follow up. Patient states he is still a little weak, and his legs are painful. documented in this encounter Plan of Treatment Upcoming Encounters Date Type Department Care Team (Late st Contact Info) Description 12/18/2023 9:00 AM EDT Office Visit Cardiology, [facility] [address] [place] [address] Elizabeth [facility] CRNP [address] [facility] [place] [address] 12/21/2023 1:40 PM EDT Office Visit [facility] [address] [place] [id number] Anahy Grayson MD [address] [place] [address] 01/17/2024 3:20 PM EDT Office Visit Neurology [facility] [address] [place] [address] Aparna Ruano PA-C [address] [facility] [place] [address] 02/20/2024 10:30 AM EDT Office Visit [facility] [address] [facility] [address] Tre Lange MD [address] [place] [address] Scheduled Procedures Name Priority Associated Diagnoses Date/Ti me COLONOSCOPY FLEXIBLE PROXIMAL DIAGNOSTIC Recall Colon cancer screening Health Maintenance Due Date Last Done Comments DISCUSS TOBACCO CESSATION (REFER TO SMARTSET #2537) 1965 COVID-19 Vaccine (#1) 02/09/1969 Alpha-1 Antitrypsin [...] D LEVEL ONCE IN A LIFETIME-USE SMARTSET# [id number] Completed 08/01/2023, 08/04/2021 GARDASIL-HPV IMMUNIZATION SERIES Aged Out No longer eligible based on patient's age to complete this topic MENINGOCOCCAL (MENACTRA/MENVEO) Aged Out No longer eligible based on patient's age to complete this topic documented as of this encounter Medical Devices Not on filedocumented as of this encounter Visit Diagnoses Diagnosis Amputation of right great toe (HCC)- Primary COPD, group B, by GOLD 2017 classification (HCC) Leg swelling Swelling of limb PAD (peripheral artery disease) (HCC) Peripheral vascular disease, unspecified Ischemic toe Unspecified circulatory system disorder Chronic systolic heart failure (HCC) Chronic systolic heart failure Cardiomyopathy, unspecified type (HCC) Persistent atrial fibrillation (HCC) Atrial fibrillation HFrEF (heart failure with reduced ejection fraction) (HCC) Rheumatoid arthritis involving multiple sites with positive rheumatoid factor (HCC) documented in this encounter Care Teams Diamond Cleaner Relationship Specialty Start Date End Date Anahy Grayson MD [address] [place] [address] PCP - General Internal Medicine 01/27/22 documented as of this encounter
--- OUTSIDE RECORDS SUMMARY | 2023-10-25 13:46 | External Medical Summary | Summary of Care ---
Author Name Unknown Organization [facility] Address [address] [place] [address] Phone [phone] Care Team Providers Care Braid Cutter Name Role Phone Anahy Grayson MD Primary Care Provider [phone] Reason for Visit * Reason Comments eRx-Medication Refill Encounter Details Date Type Department Care Team (Late st Contact Info) Description 10/08/2023 Refill Cardiology, [facility] [address] [place] [address] Valentina Ceron PA-C [address] [place] [address] Persistent atrial fibrillation (HCC) Allergies No known active allergiesdocumented as of this encounter (statuses as of 10/08/2023) Medications Medication Sig Dispensed Refills Start Date End Date Status Aspirin 81 MG Oral Tablet Delayed Release Take 1 Tablet by mouth in the morning. 0 Active Spiriva Respimat 2.5 MCG/ACT Inhalation Aerosol Solution (Tiotropium [place] Monohydrate) Inhale by mouth 2 Puffs in [...] Oral Tablet (Crestor)Indication s:Coronary artery disease involving [place] coronary artery of [place] heart without angina pectoris,HFrEF (heart [...] Active Sarilumab 200 MG/1.14ML Subcutaneous Solution Auto-injector (HalotechnicszaReaction)Indication s:Rheumatoid arthritis involving multiple sites with positive [...] rheumatoid factor ([facility]) TAKE 1 TO 2 TABLETS BY [...] TWICE DAILY. 180 Tablet 3 4 Active oxyCODONE-Acetamino phen 10-325 MG Oral Tablet (Percocet)Indicatio ns:Ischemic foot ulcer due to atherosclerosis of [place] artery of limb ([facility]),Rheumatoid arthritis involving multiple sites with positive rheumatoid factor ([facility]) Take 1 Tablet by mouth every 6 hours as needed for Pain, Severe. 120 Tablet 0 4 Active Entresto 24-26 MG Oral Tablet (sacubitril-valsart an 24-26 mg per tab)Indications:HTN , goal below 140/90,Frequent PVCs,HFrEF (heart failure with reduced ejection fraction) ([facility]),PAF (paroxysmal atrial fibrillation) ([facility]) TAKE 1 TABLET BY MOUTH TWICE DAILY EVERY MORNING AND BEFORE BEDTIME 180 Tablet 3 4 Active Eliquis 5 MG Oral Tablet (Apixaban)Indicatio ns:Persistent atrial fibrillation (HCC) TAKE 1 TABLET BY MOUTH TWICE DAILY 180 Tablet 0 4 Active Eliquis 5 MG Oral Tablet (Apixaban)Indicatio ns:Persistent atrial fibrillation (HCC) TAKE ONE TABLET BY MOUTH 2 TIMES A DAY 180 Tablet 3 3 10/08/19 24 Discontinued documented as of this encounter [...] dose Rx Exacerbation plan o Chest Xray alf systemic steroid user 06/23/2022 Scoliosis 06/23/2022 SVT [...] encounter Miscellaneous Notes * Telephone Encounter - Dominic Chappell CRNP - 10/08/2023 12:59 PM EDT Signed Prescriptions: Disp Refills Eliquis 5 MG Oral Tablet (Apixaban) 180 Ta*0 Sig: TAKE 1 TABLET BY MOUTH TWICE DAILY Authorizing Provider: DOMINIC CHAPPELL * Telephone Encounter - Pita Mills LPN - 10/08/2023 12:21 PM EDTPending Prescriptions: Disp Refills Eliquis 5 MG Oral Tablet [Pharmacy Med Nam*180 Ta*0 Sig: TAKE 1 TABLET BY MOUTH TWICE DAILY * Telephone Encounter - Pita Mills LPN - 10/08/2023 12:20 PM EDT Did you pend patient's preferred pharmacy and medication before forwarding? YES Pharmacy: [id number] Pending Prescriptions: Disp Refills Eliquis 5 MG Oral Tablet (Apixaban) [Phar*180 Ta*0 Sig: TAKE 1 TABLET BY MOUTH TWICE DAILY Last Visit: 12/19/2022 (in office), 08/11/2022 (telemedicine) Next Visit: 12/18/2023 If no future appointments scheduled, and last appointment is greater than a year ago, please schedule patient for a follow-up appointment Last date the medication was ordered: Is this request for a controlled substance? NO Urine Drug Screen: Results for orders placed [...] Description 10/08/2023 3:00 PM EDT [facility] [address] [facility] [place] [address] Jimmy Mitchell PA-C [facility] [place] [address] 10/11/2023 4:10 PM EDT [facility] [address] [facility] [place] [address] Aparna Ruano PA-C [address] [facility] [place] [address] 12/18/2023 9:00 AM EDT Office Visit Cardiology, [facility] [address] [facility] [place] [address] Dominic Chappell CRNP [address] [place] [address] 12/21/2023 1:40 PM EDT Office Visit [place] [address] [place] [address] Anahy Grayson MD [address] [place] [address] 02/20/2024 10:30 AM EDT Office Visit Vascular Surgery, [facility] [address] [facility] [place] [address] Tre Lange MD [address] [place], [place] [id number] Scheduled Procedures Name Priority Associated Diagnoses Date/Ti me COLONOSCOPY FLEXIBLE PROXIMAL DIAGNOSTIC Recall Colon cancer screening Health Maintenance Due Date Last Done Comments DISCUSS TOBACCO CESSATION (REFER TO SMARTSET #5963) 1965 COVID-19 Vaccine (#1) 02/09/1969 Alpha-1 Antitrypsin [...] D LEVEL ONCE IN A LIFETIME-USE SMARTSET# [id number] Completed 08/01/2023, 08/04/2021 GARDASIL-HPV IMMUNIZATION SERIES Aged Out No longer eligible based on patient's age to complete this topic MENINGOCOCCAL (MENACTRA/MENVEO) Aged Out No longer eligible based on patient's age to complete this topic documented as of this encounter Medical Devices Not on filedocumented as of this encounter Visit Diagnoses Diagnosis Persistent atrial fibrillation (HCC) Atrial fibrillation documented in this encounter Care Teams Braid Cutter Relationship Specialty Start Date End Date Anahy Grayson MD [facility] [address] PCP - General Internal Medicine 01/27/22 documented as of this encounter
--- OUTSIDE RECORDS SUMMARY | 2023-10-25 13:46 | External Medical Summary | Summary of Care ---
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 0 Active Spiriva Respimat 2.5 MCG/ACT Inhalation Aerosol Solution (Tiotropium [place] Monohydrate) Inhale by mouth 2 Puffs in [...] Oral Tablet (Crestor)Indications :Coronary artery disease involving [place] coronary artery of [place] heart without angina pectoris,HFrEF (heart failure with reduced ejection fraction) ([facility]),HTN, goal below 140/90,Dyslipidemia, goal LDL below 70,Palpitations [...] sites with positive rheumatoid factor ([facility]) Inject 1.14 mL under the skin every 14 days. 2.28 mL 11 03/05/2023 Active Omeprazole 40 MG Oral Capsule Delayed Release (PriLOSEC) Take 1 Capsule by mouth in the morning. 1 hour before the first meal of the day.. 90 Capsule 3 03/15/2023 Active Sildenafil Citrate 20 MG Oral Tablet (Revatio)Indications :Raynaud's disease with gangrene ([facility]) TAKE [...] on 09/23/2023 predniSONE 5 MG Oral Tablet (Deltasone)Indicatio ns:Rheumatoid arthritis involving multiple sites with positive rheumatoid factor ([facility]) TAKE 1 TO 2 TABLETS BY MOUTH [...] 09/04/2023 Active Entresto 24-26 MG Oral Tablet (sacubitril-valsarta n 24-26 mg per tab)Indications:HTN, goal below 140/90,Frequent PVCs,HFrEF (heart failure with reduced ejection fraction) ([facility]),PAF (paroxysmal atrial fibrillation) ([facility]) TAKE 1 TABLET BY MOUTH TWICE DAILY EVERY MORNING AND BEFORE BEDTIME 180 Tablet 3 09/17/2023 Active Eliquis 5 MG Oral Tablet (Apixaban)Indication s:Persistent atrial fibrillation ([facility]) TAKE 1 TABLET BY MOUTH TWICE DAILY 180 Tablet 0 10/08/2023 Active oxyCODONE-Acetaminop hen 10-325 MG Oral Tablet (Percocet)Indication s:Ischemic foot ulcer due to atherosclerosis of que[place] artery of limb ([facility]),Rheumatoid arthritis involving multiple sites with positive rheumatoid factor ([facility]) Take 1 Tablet by mouth every 6 hours as needed for Pain, Severe. 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 Authorizing Provider: ANAHY GOINS * Telephone Encounter - Gris Moore [facility] - 10/10/2023 1:50 PM EDTPending Prescriptions: Disp Refills oxyCODONE-Acetaminophen 10-325 MG Oral Tab*120 Ta*0 Sig: Take 1 Tablet by mouth every 6 hours as needed for Pain, Severe. * Telephone Encounter - Gris Moore [facility] - 10/10/2023 1:50 PM EDT I have reviewed the patients controlled substance dispensing history in the Prescription Drug Monitoring Program in compliance with the [place] regulations before prescribing a controlled substance. PDMP checked on 10/10/2023. Pending Prescriptions: Disp Refills oxyCODONE-Acetaminophen 10-325 MG Oral Ta*120 Ta*0 Sig: Take 1 Tablet by mouth every 6 hours as needed for Pain, Severe. Last Visit: 09/21/2023 (in office), 06/15/2020 (telemedicine) Next Visit: 12/21/2023 Date medication was last filled: 09/01/23 Date medication is due for refill: 09/30/23 Pharmacy: [id number] [address] Is this request for [...] Results Review. Please approve if appropriate. Thanks, Gris Moore Clinical Pharmacist [facility] ([facility]) (Formerly Telepharm[facility]) [phone] 10/10/2023, 1:50 PM * Telephone Encounter - Belkys Mccurdy CPhT - 10/09/2023 1:20 PM EDT Did you pend patient's preferred pharmacy and medication before forwarding?yes Pharmacy: [id number] [address] Pending Prescriptions: Disp Refills oxyCODONE-Acetaminophen 10-325 MG Oral Ta*120 Ta*0 Sig: Take 1 Tablet by mouth every 6 hours as needed for Pain, Severe. Last Visit: 09/21/2023 (in office), 06/15/2020 (telemedicine) Next Visit: 12/21/2023 If no future appointments scheduled, and last appointment is greater than a year ago, please schedule patient for a follow-up appointment Last date the medication was ordered: 08/31/2023 Is this request for a controlled substance?Yes, What was the last refill date 08/31/2023 w/ quantity 120 and dosage 10-325 MG and Urine Drug Screen was completed [...] Care Team (Late st Contact Info) Description 10/11/2023 4:10 PM EDT Office Visit Neurology [facility] [address] [place] [address] Aparna Ruano PA-C [address] [facility] [place] [address] 12/18/2023 9:00 AM EDT Office Visit Cardiology, [facility] [address] [place] [address] Elizabeth Johnson CRNP [address] [place] [address] 12/21/2023 1:40 PM EDT Office Visit Family [address] [phone] Anahy Goins MD [address] [place] [address] 02/20/2024 10:30 AM EDT Office Visit Vascular Surgery, [facility] [address] [place] [address] Tre Lange MD [address] [place] [address] Scheduled Procedures Name Priority Associated [...] D LEVEL ONCE IN A LIFETIME-USE SMARTSET# 31662 Completed 08/01/2023, 08/04/2021 GARDASIL-HPV IMMUNIZATION SERIES Aged Out No longer eligible based on patient's age to complete this topic MENINGOCOCCAL (MENACTRA/MENVEO) Aged Out No longer eligible based on patient's age to complete this topic documented as of this encounter Medical Devices Not on filedocumented as of this encounter Visit Diagnoses Diagnosis Ischemic foot ulcer due to atherosclerosis of quechan artery of limb (HCC) Rheumatoid arthritis involving multiple sites with positive rheumatoid factor (HCC) documented in this encounter Care Teams Test Desk Operator Relationship Specialty Start Date End Date Anahy Goins MD [address] [place] [address] PCP - General Internal Medicine 01/27/22 documented as of this encounter
--- OUTSIDE RECORDS SUMMARY | 2023-10-25 13:46 | External Medical Summary | Summary of Care ---
Author Name Unknown Organization [facility] Address [address] [place] [address] Phone [phone] Care Team Providers Care Safety And Occupational Health Manager Name Role Phone Anahy Grayson MD Primary Care Provider [phone] Reason for Visit * Reason Onset Date Comments [facility]: Maintenance 10/05/2023 Encounter Details Date Type Department Care Team (Late st Contact Info) Description 10/05/2023 Telephone [facility], [facility] [address] [facility] [place] [address] Region, Nurse [facility] [address] [facility] [place] [address] [facility]: Maintenance Allergies No known active allergiesdocumented as of this encounter (statuses as of 10/05/2023) Medications Medication Sig Dispensed Refills Start Date [...] Oral Tablet (Crestor)Indications: Coronary artery disease involving [place] coronary artery of [place] heart without angina pectoris,HFrEF (heart failure with reduced ejection fraction) ([facility]),HTN, goal below 140/90,Dyslipidemia, goal LDL below [...] Active Sarilumab 200 MG/1.14ML Subcutaneous Solution Auto-injector (Kevzara)Indications: Rheumatoid arthritis involving multiple sites with positive [...] Oral Tablet (Revatio)Indications: Raynaud's disease with gangrene ([facility]) [...] tions:HFrEF (heart failure with reduced ejection fraction) ([facility]) TAKE 1 TABLET BY MOUTH EVERY MORNING 90 Tablet 3 05/08/2023 Active Furosemide 20 MG Oral Tablet (Lasix)Indications:HF rEF (heart failure with reduced ejection fraction) ([facility] [...] positive rheumatoid factor ([facility]) TAKE 1 TO 2 TABLETS BY MOUTH [...] :Ischemic foot ulcer due to atherosclerosis of [place] artery of limb ([facility]),Rheumatoid arthritis involving multiple sites with positive rheumatoid factor ([facility]) Take 1 Tablet by mouth every 6 hours as needed for Pain, Severe. 120 Tablet 0 08/31/2023 Active Entresto 24-26 MG Oral Tablet (sacubitril-valsartan 24-26 mg per tab)Indications:HTN, goal below 140/90,Frequent PVCs,HFrEF (heart failure with reduced ejection fraction) ([facility]),PAF (paroxysmal atrial fibrillation) ([facility]) TAKE 1 TABLET BY MOUTH TWICE DAILY EVERY MORNING AND BEFORE BEDTIME 180 Tablet 3 09/17/2023 Active documented as of this encounter (statuses as of 10/05/2023) Active Problems Problem Noted Date Diagnosed Date [...] as of this encounter (statuses as of 10/05/2023) Resolved Problems Problem Noted Date Diagnosed Date [...] as of this encounter (statuses as of 10/05/2023) Immunizations Name Administration Dates Next Due HepA [...] Telephone Encounter - Anamaria Ghotra LPN - 10/05/2023 11:57 AM EDT Call from KENNETH Hooks reports she got a call form pt's SO requesting HH for pt. Pt being seen 10/07 added request to appoint,ment note for Ryan Mitchell Per Ryan Hooks states she thinks Sw should be orders for pt due to family dynamic's Order placed. documented in this encounter Plan of Treatment Upcoming Encounters Date Type Department Care Team (Late st Contact Info) Description 10/08/2023 3:00 PM EDT [facility] Visit [place] [facility] [place] [address] [facility] [place] [address] Jimmy Mitchell PA-C [address] [facility] [place] [address] 10/11/2023 4:10 PM EDT Office Visit Neurology [facility] [address] [facility] [place] [address] Aparna Ruano PA-C [address] [facility] [place] [address] 12/18/2023 9:00 AM EDT Office Visit Cardiology, [facility] [address] [facility] [place] [address] [facility] [address] 12/21/2023 1:40 PM EDT Office Visit [facility] [address] [place] [phone] Anahy Grayson MD [address] [place] [address] 02/20/2024 10:30 AM EDT Office Visit Vascular Surgery, [facility] [address] [facility] [place] [address] Tre Lange MD [address] [place] [address] Scheduled Procedures Name Priority Associated Diagnoses Date/Ti me COLONOSCOPY FLEXIBLE PROXIMAL DIAGNOSTIC Recall Colon cancer screening Health Maintenance Due Date Last Done Comments DISCUSS TOBACCO CESSATION (REFER TO SMARTSET #8857) 1965 COVID-19 Vaccine (#1) 02/09/1970 Alpha-1 Antitrypsin [...] D LEVEL ONCE IN A LIFETIME-USE SMARTSET# 21125 Completed 08/01/2023, 08/04/2021 GARDASIL-HPV IMMUNIZATION SERIES Aged Out No longer eligible based on patient's age to complete this topic MENINGOCOCCAL (MENACTRA/MENVEO) Aged Out No longer eligible based on patient's age to complete this topic documented as of this encounter Medical Devices Not on filedocumented as of this encounter Visit Diagnoses Diagnosis Depression with anxiety- Primary Dysthymic disorder documented in this encounter Care Teams Safety And Occupational Health Manager Relationship Specialty Start Date End Date Anahy Grayson MD [address] [place] [address] PCP - General Internal Medicine 01/27/22 documented as of this encounter
--- OUTSIDE RECORDS SUMMARY | 2023-10-25 13:46 | External Medical Summary | Summary of Care ---
Author Name Unknown Organization [facility] Address [address] [address] Phone [phone] Care Team Providers Care Foam Caster Name Role Phone Anahy Grayson MD Primary Care Provider [phone] Reason for Referral * Evaluate & Treat - Unlimited Visits (Within 10 days (routine)) - Pending Review Specialty Diagnoses / Procedures Referred By Jose tidwell Referred To Contact Physical Therapy / Physical Medicine And Rehab Diagnoses Abnormal brain MRI History of CVA (cerebrovascular accident) SVT (supraventricular tachycardia) ([facility]) Aparna Ruano PA-C [address] [facility] [place] [address] Referral ID Status Reason Start Date Expiration Date Visits Requested Visits Authorized [id number] Pending Review Specialty Services Required 10/11/[phone] Question Answer Referral Priority Within 10 days (routine) Where should this appointment be scheduled? [facility] Comments In home physical therapy Reason for Visit * Reason Comments Return Neuro Encounter Details Date Type Department Care Team (Late st Contact Info) Description 10/11/2023 4:10 PM EDT Office Visit [facility] [address] [place] [address] Aparna Ruano PA-C [address] [facility] [place] [address] History of CVA (cerebrovascular accident)*; Abnormal brain MRI; Memory changes; SVT (supraventricular tachycardia) ([facility]); Persistent atrial fibrillation (HCC); Deconditioned low back Allergies No known active allergiesdocumented as of this encounter (statuses as of 10/11/2023) Medications Medication Sig Dispensed Refills Start Date End Date Status Aspirin 81 MG Oral Tablet Delayed Release Take 1 Tablet by mouth in the morning. 0 Active Spiriva Respimat 2.5 MCG/ACT Inhalation Aerosol Solution (Tiotropium [place] Monohydrate) Inhale by mouth 2 Puffs in [...] Oral Tablet (Crestor)Indications: Coronary artery disease involving [place] coronary artery of [place] heart without angina pectoris,HFrEF (heart failure with [...] Active Sarilumab 200 MG/1.14ML Subcutaneous Solution Auto-injector ([employer])Indications: Rheumatoid arthritis involving multiple sites with positive [...] Oral Tablet (Revatio)Indications: Raynaud's disease with gangrene ([facility]) [...] tions:HFrEF (heart failure with reduced ejection fraction) ([facility]) TAKE 1 TABLET BY MOUTH EVERY MORNING 90 Tablet 3 05/08/2023 Active Furosemide 20 MG Oral Tablet (Lasix)Indications:HF rEF (heart failure with reduced ejection fraction) ([facility] [...] TWICE DAILY 180 Tablet 0 10/08/2023 Active oxyCODONE-Acetaminoph en 10-325 MG Oral Tablet (Percocet)Indications :Ischemic foot ulcer due to atherosclerosis of [place] artery of limb (HCC),Rheumatoid arthritis involving multiple sites with positive rheumatoid factor ([facility]) Take 1 Tablet by mouth every 6 hours as needed for Pain, Severe. 120 Tablet 0 10/11/2023 Active documented as of this encounter (statuses [...] Sign Reading Time Taken Comments Blood Pressure 108/54 10/11/2023 3:40 PM EDT Pulse 118 10/11/2023 3:40 PM EDT Temperature 37.6 C (99.7 F) 10/11/2023 3:40 PM ED T Respiratory Rate 18 10/11/2023 3:40 PM EDT Oxygen Saturation 96% 10/11/2023 3:40 PM EDT Inhaled Oxygen Concentration - - Weight 98.3 kg (216 lb 12.8 oz) 10/11/2023 3:40 PM EDT Height - - Body Mass Index 32.96 05/17/2023 1:17 PM EST documented in this encounter Progress Notes * Aparna Ruano PA-C - 10/11/2023 3:33 PM EDT HISTORY & PHYSICAL EXAMINATION - NEUROLOGY Name: Harrison Morgan Date: 10/11/2023 Time: 3:34 PM Referring Provider: Anahy Grayson MD Chief Complaint: Chief Complaint Patient presents with Return Neuro This is a 58 year old right handed gentleman returns today for follow up for CVA, weakness memory issues. HPI & Source of HPI The patient was the historian, and he is reliable. He has a PMH CAD, PSVT, pulmonary nodules, history of IV drug use, RA, hepatitis C s/p treatment, severe Raynauds disease with gangrene 4 digit, EtOH abuse, tobacco abuse. He is here today for memoryissues which has progressed over several years. He is losing things, gets confused at times where he is. He still drives but girlfriend thinks he is ok driving. 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 He is follow by cardiology and they are talking about a defibrillator because of his ejection fraction and afib. He does not eat well because he has nausea all the time from the RA meds. No recent falls. He was recently in the hospital for a toe amputation and cardiac issues. He is very weak and would like some physical therapy at home. He didn't want to have the neuro psych testing but after talkingabout it he agrees to have this done. His left arm has been numb since the hospital but he also hadweakness and rotator cuff syndrome which he knows is getting worse Denies CP, SOB, abdominal pain, +pain in back and knees. I have reviewed the patient's medications and allergies, past medical, surgical, social and family history, updating these as appropriate. See Histories section of the electronic medical record for adisplay of this information. Patient Active Problem List Diagnosis Code DJD (degenerative joint disease) M19.90 Erectile dysfunction N52.9 Tobacco use disorder F17.200 MEDICATION USE AGREEMENT [id number] Rheumatoid arthritis involving multiple sites with positive rheumatoid factor ([facility]) M05.79 Hepatitis C virus infection cured after antiviral drug therapy Z86.19 Effusion of left knee M25.462 Knee pain M25.569 Tear of lateral meniscus of knee S83.289A Gastro-esophageal reflux disease without esophagitis K21.9 PAD (peripheral artery disease) ([facility]) I73.9 Depression with anxiety F41.8 Cardiomyopathy ([facility]) I42.9 DDD (degenerative disc disease), lumbar M51.36 Immunodeficiency due to drugs ([facility]) D84.821, Z79.899 Age-related nuclear cataract, bilateral H25.13 SVT (supraventricular tachycardia) ([facility]) I47.10 Frequent PVCs I49.3 Chronic systolic heart failure ([facility]) I50.22 MCFP systemic steroid user Z79.52 Scoliosis M41.9 COPD, group B, by GOLD 2017 classification ([facility]) J44.9 HFrEF (heart failure with reduced ejection fraction) ([facility]) I50.20 Persistent atrial fibrillation ([facility]) I48.19 Encounter for long-term (current) use of medications Z79.899 Lung nodules R91.8 Lung mass R91.8 Senile osteoporosis M81.0 Food insecurity Z59.41 Small vessel disease ([facility]) I73.9 Moderate episode of recurrent major depressive disorder (HCC) F33.1 Family History Problem Relation Age of Onset Hypertension Mother Heart disease Mother Dementia Father Medications: Are you taking your medications? yes Current Outpatient Medications Medication Sig Dispense Refill Aspirin 81 MG Oral Tablet Delayed Release Take 1 Tablet by mouth in the morning. Spiriva Respimat 2.5 MCG/ACT Inhalation Aerosol Solution (Tiotropium [place] Monohydrate) Inhale bymouth 2 Puffs in the [...] mouth in the morning. 34 Tablet 11 Rosuvastatin Calcium 5 MG Oral Tablet (Crestor) [...] 0 Sarilumab 200 MG/1.14ML Subcutaneous Solution Auto-injector (Parabel) Inject 1.14 mL under the skinevery 14 [...] TOTAL 125MG TWICE DAILY. 180 Tablet 3 Entresto 24-26 MG Oral Tablet (sacubitril-valsartan 24-26 mg per tab) TAKE 1 TABLET BY MOUTH TWICE DAILY EVERY MORNING AND BEFORE BEDTIME 180 Tablet 3 Eliquis 5 MG Oral Tablet (Apixaban) TAKE 1 TABLET BY MOUTH TWICE DAILY 180 Tablet 0 oxyCODONE-Acetaminophen 10-325 MG Oral Tablet (Percocet) Take 1 Tablet by mouth every 6 hours as needed for Pain, Severe. 120 Tablet 0 No current facility-administered medications for this visit. Review of patient's allergies indicates: No Known Allergies Review of Systems: A total number of 10 systems were reviewed pertinent negative and positives not addressed in HPI are listed in the following review. Physical Exam: Constitutional: BP 108/54 | Pulse 118 | Temp 37.6 C (99.7 F) (Tympanic) | Resp 18 | Wt 98.3 kg (216 lb 12.8 oz) | SpO2 96% | BMI 32.96 kg/m | BSA 2.17 m , appearance over nourished and healthy Ears, Nose, Mouth and Throat: mucous membranes moist, no injection and skin normal, eyes normal Cardiovascular: irregular Respiratory: course breath sounds Musculoskeletal: no peripheral edema Skin: normal and intact Eyes: extraocular muscles intact (EOMI) NEUROLOGIC EXAMINATION: Mental status: Alert and interactive Oriented to person Speech fluent with no evidence of aphasia Cranial Nerves Normal findings for Cranial Nerves II - XII, accept shoulder shrug on left Coordination: on [id number]-dwrh and no abnormal or extraneous movements Gait/Stance: Posture abnormal: forward head and rounded shoulders. Gait using cane, tandem somewhat unstable butslow gait, orthopedic Motor: Positive for muscle tone, atrophy, and unable to lift left arm. Strength: generalized weakness, deconditioned, and uses arms of chair to stand up LABORATORY: Recent labs reviewed Review of prior Studies: MRI brain-No acute intracranial abnormality. A few punctate foci of increased DWI signal in the left centrum semiovale may represent a subacute infarcts. These may be in the deep watershed zone and aCTA of the head and neck is advised Fluid in left mastoid air cells Moderate chronic microvascular changes and global volume loss CTA head/neck-Evolving small subacute infarcts in the left frontal centrum semiovale. No evidence of intracranial large vessel occlusion. Atherosclerotic disease involving the bilateral carotid bifurcations without significant internal carotid artery stenosis. Interval slight decrease in the size of previously-seen left upper lobe pulmonary nodule. Interval appearance of superior endplate compression fracture of the T4 vertebra with associated mild loss of vertebral height. Similar left maxillary sinus disease. Impression: Harrison Morgan is a 58 year old gentleman with a history of afib, stroke, EF 45. His neurologic examination today reveals weak, unsteady gait. The history and examination are suggestive of diagnosis/problem list. Testing and Referrals ordered: PT ICD-10-CM 1. History of CVA (cerebrovascular accident) Z86.73 2. Abnormal brain MRI R90.89 3. Memory changes R41.3 4. SVT (supraventricular tachycardia) (HCC) I47.10 5. Persistent atrial fibrillation (HCC) I48.19 Return in 3 months or sooner if needed PCP for mood issues - SSRI if not contraindicated in his other conditions Fall precautions should use a walker - ordered home PT Neuro psych test not yet done - he may have missed his appointment when hospitalized Left arm numbness- likely pinched nerves in shoulder-MRI shoulder neck at some point- he wanted to wait until he has PT Cards for further treatment for EF and afib EMG for arm numbness could be done for evaluation but at this point he wants to wait on any furthertesting Call with questions concerns. Medical Decision Making (determined by lowest of 2 of 3 elements): The medical decision making element of the number and complexity of problems addressed included at least 1 or more chronic illnesses with exacerbation, progression, or side effects of treatment (level 4). The medical decision making element of risk of complications, morbidity, and mortality of patient management is moderate (level 4) due to prescription drug management (moderate risk). The medical decision making element of the amount and complexity of data reviewed and analyzed included an independent interpretation of a test (level 4 at least). When 2 of 3 reach level 4, then this element is considered extensive (level 5). I personally spent a total of 30 minutes. This time was for a new office or established visit and was on the same calendar day. and This time was the total spent on the evaluation, interpretation, and documentation. Education / Consultation - Topics covered as I spent 20 minutes, which is greater than 50% of this visit, counseling the patient on: Diagnostic Results Prognosis Importance of compliance with chosen treatment options Risk factor reductions Patient and family education Aparna Dawson MD was available for direct supervision. Copy of note sent to PCP and Referring Provider. Total time of visit: 30 minutes. Aparna Ruano PA-C Neurology [facility] [address] [place] [address] 10/11/2023 3:34 PM documented in this encounter Plan of Treatment Upcoming Encounters Date Type Department Care Team (Late st Contact Info) Description 12/18/2023 9:00 AM EDT [facility] [address] [facility] [place] [address] Elizabeth Johnson CRNP [address] [facility] [place] [id number] 12/21/2023 1:40 PM EDT Office Visit [facility] [address] [facility] [place] [id number] Anahy Grayson MD [address] [place] [address] 01/17/2024 3:20 PM EDT Office Visit Neurology [facility] [address] [place] [address] Aparna Ruano PA-C [address] [place] [address] [place] [address] 02/20/2024 10:30 AM EDT Office Visit Vascular Surgery, [facility] [address] [place] [address] Tre Lange MD [address] [place] [address] Scheduled Procedures Name Priority Associated Diagnoses Date/Ti me COLONOSCOPY FLEXIBLE PROXIMAL DIAGNOSTIC Recall Colon cancer screening Scheduled Referrals Name Type Priority Associated Diagnoses Orde r Schedule PHYSICAL THERAPY REFERRAL OP Referral Within 10 days (routine) Abnormal brain MRI History of CVA (cerebrovascular accident) SVT (supraventricular tachycardia) (HCC) Ordered: 10/11/2023 Health Maintenance Due Date Last Done Comments DISCUSS TOBACCO CESSATION (REFER TO SMARTSET #8074) 1965 COVID-19 Vaccine (#1) 02/09/1969 Alpha-1 Antitrypsin [...] D LEVEL ONCE IN A LIFETIME-USE SMARTSET# [id number] Completed 08/01/2023, 08/04/2021 GARDASIL-HPV IMMUNIZATION SERIES Aged Out No longer eligible based on patient's age to complete this topic MENINGOCOCCAL (MENACTRA/MENVEO) Aged Out No longer eligible based on patient's age to complete this topic documented as of this encounter Medical Devices Not on filedocumented as of this encounter Visit Diagnoses Diagnosis History of CVA (cerebrovascular accident)- Primary Transient ischemic attack (TIA), and cerebral infarction without residual deficits Abnormal brain MRI Nonspecific (abnormal) findings on radiological and other examination of skull and head Memory changes Memory loss SVT (supraventricular tachycardia) (HCC) Other specified cardiac dysrhythmias Persistent atrial fibrillation (HCC) Atrial fibrillation Deconditioned low back Muscle weakness (generalized) documented in this encounter Care Teams Foam Caster Relationship Specialty Start Date End Date Anahy Grayson MD [address] [place], [place] [id number] PCP - General Internal Medicine 01/27/22 documented as of this encounter
--- OUTSIDE RECORDS SUMMARY | 2023-10-25 13:46 | External Medical Summary | Summary of Care ---
Author Name Unknown Organization [facility] Address [address] [place] [address] Phone [phone] Care Team Providers Care Brand Engineer Name Role Phone Anahy Grayson MD Primary Care Provider [phone] Reason for Visit * Reason Comments Hospital Follow-Up Patient is here toda for a hospital follow up.Patient states he is still a little weak, and his legs are painful. Encounter Details Date Type Department Care Team (Latest Contact Info) Description 09/21/2023 2:00 PM EDT Office Visit [place] [address] [place] [address] Anahy Grayson MD [address] [place] [address] Amputation of right great toe (HCC)*; COPD, group B, by GOLD 2017 classification (HCC); Leg swelling; PAD (peripheral artery disease) (HCC); Ischemic toe; Chronic systolic heart failure (HCC); Cardiomyopathy, unspecified type (HCC); Persistent atrial fibrillation (HCC); HFrEF (heart failure with reduced ejection fraction) ([facility]); Rheumatoid arthritis involving multiple sites with positive rheumatoid factor (HCC) Allergies No known active allergiesdocumented as of this encounter (statuses as of 10/08/2023) Medications Medication Sig Dispensed Refills Start Date End Date Status Aspirin 81 MG Oral Tablet Delayed Release Take 1 Tablet by mouth in the morning. 0 Active Spiriva Respimat 2.5 MCG/ACT Inhalation Aerosol Solution (Tiotropium [place] Monohydrate) Inhale by mouth 2 Puffs in [...] Oral Tablet (Crestor)Indications: Coronary artery disease involving [place] coronary artery of [place] heart without angina pectoris,HFrEF (heart failure with reduced ejection fraction) ([facility]),HTN, goal below 140/90,Dyslipidemia, goal LDL [...] Oral Tablet (Revatio)Indications: Raynaud's disease with gangrene ([facility]) TAKE ONE TABLET BY MOUTH EVERY MORNING , 1 TABLET AT NOON AND 2 TABLETS BEFORE BEDTIME 90 Tablet 2 03/30/2023 Active sulfaSALAzine 500 MG Oral Tablet Delayed Release (Azulfidine Entab) Take 1 Tablet by mouth in the morning. 2 tablets twice daily. 0 Active Jardiance 10 MG Oral Tablet (Empagliflozin)Indica tions:HFrEF (heart failure with reduced ejection fraction) ([facility]) TAKE 1 TABLET BY MOUTH EVERY MORNING 90 Tablet 3 05/08/2023 Active Furosemide 20 MG Oral Tablet (Lasix)Indications:HF rEF (heart failure with reduced ejection fraction) ([facility]) Take 2 Tablets by mouth in the morning. 180 Tablet 3 06/06/2023 Active Additional Information Patient taking differently:40 mg Oral Daily(AM),Pt takes 2 tabs every morning and additional 1 in the afternoon as needed for edema, Reported on 09/23/2023 predniSONE 5 MG Oral Tablet (Deltasone)Indication s:Rheumatoid arthritis involving multiple sites with positive rheumatoid factor ([facility]) TAKE 1 TO 2 TABLETS [...] :Ischemic foot ulcer due to atherosclerosis of [place] artery of limb ([facility]),Rheumatoid arthritis involving multiple sites with positive rheumatoid factor ([facility]) Take 1 Tablet by mouth [...] 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 06/23/2022 Scoliosis [...] discharge f/u Admission aug 12 Discharge aug 29 Dx : PAD, ischemic toe with necrosis, [...] Tobacco use disorder F17.200 MEDICATION USE AGREEMENT [id number] Rheumatoid arthritis involving multiple sites with positive rheumatoid factor ([facility]) M05.79 Hepatitis C virus infection cured after antiviral drug therapy Z86.19 Effusion of left knee M25.462 Knee pain M25.569 Tear of lateral meniscus of knee S83.289A Gastro-esophageal reflux disease without esophagitis K21.9 PAD (peripheral artery disease) ([facility]) I73.9 Depression with anxiety F41.8 Cardiomyopathy ([facility]) I42.9 DDD (degenerative disc disease), lumbar M51.36 Immunodeficiency due to drugs ([facility]) D84.821, Z79.899 Age-related nuclear cataract, bilateral H25.13 SVT (supraventricular tachycardia) ([facility]) I47.10 Frequent PVCs I49.3 Chronic systolic heart failure ([facility]) I50.22 halfway systemic steroid user Z79.52 Scoliosis M41.9 COPD, group B, by GOLD 2017 classification ([facility]) J44.9 HFrEF (heart failure with reduced ejection fraction) ([facility]) I50.20 Persistent atrial fibrillation ([facility]) I48.19 Encounter for long-term (current) use of medications Z79.899 Lung nodules R91.8 Lung mass R91.8 Senile osteoporosis M81.0 Food insecurity Z59.41 Small vessel disease ([facility]) I73.9 Moderate episode of recurrent major depressive disorder ([facility]) F33.1 Current Outpatient Medications Medication Sig Dispense Refill Aspirin 81 MG Oral Tablet Delayed Release Take 1 Tablet by mouth in the morning. Spiriva Respimat 2.5 MCG/ACT Inhalation Aerosol Solution (Tiotropium [place] Monohydrate) Inhale bymouth 2 Puffs in the [...] 0 Sarilumab 200 MG/1.14ML Subcutaneous Solution Auto-injector ([employer]) Inject 1.14 mL under the skinevery 14 [...] performed by Randall England MD at ENDOSCOPY [facility] COLONOSCOPY, DIAGNOSTIC (RECTUM) 07/24/2017 normal, repeat 10 yrs/COLONOSCOPY FLEXIBLE PROXIMAL DIAGNOSTIC performed by Paul Verma MD at ENDOSCOPY 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 Possible mold in his home. job: CURRENT employer: [employer] education: 12 service: no hobbies/interests: Hunting fishing transfusions: no exercise: little diet: no confucianism/episcopal: no marital status: 09/26 children: 3/ gc: [...] Description 10/08/2023 3:00 PM EDT Home Visit [facility] [place] [address] [facility] [place] [address] Jimmy Mitchell PA-C [address] [place] [address] 10/11/2023 4:10 PM EDT Office Visit Neurology [facility] [address] [facility] [place] [address] Aparna Ruano PA-C [address] [facility] [place] [address] 12/18/2023 9:00 AM EDT Office Visit Cardiology, [facility] [address] [place] [address] Elizabeth Johnson CRNP [address] [place] [address] 12/21/2023 1:40 PM EDT Office Visit [place] [address] [place] [id number] Anahy Grayson MD [address] [place] [address] 02/20/2024 10:30 AM EDT Office Visit Vascular Surgery, [facility] [address] [place] [address] Tre Lange MD [address] [place] [address] Scheduled Procedures Name Priority Associated Diagnoses Date/Ti me COLONOSCOPY FLEXIBLE PROXIMAL DIAGNOSTIC Recall Colon cancer screening Health Maintenance Due Date Last Done Comments DISCUSS TOBACCO CESSATION (REFER TO SMARTSET #9081) 1965 COVID-19 Vaccine (#1) 02/09/1969 Alpha-1 Antitrypsin [...] D LEVEL ONCE IN A LIFETIME-USE SMARTSET# [id number] Completed 08/01/2023, 08/04/2021 GARDASIL-HPV IMMUNIZATION SERIES Aged [...] (HCC) documented in this encounter Care Teams Brand Engineer Relationship Specialty Start Date End Date Anahy Grayson MD [address] [place] [address] PCP - General Internal Medicine 01/27/22 documented as of this encounter
--- OUTSIDE RECORDS SUMMARY | 2023-10-25 13:47 | External Medical Summary | Summary of Care ---
Author Name Unknown Organization [facility] Address [address] [place] [address] Phone [phone] Care Team Providers Care Tool Setter Apprentice Name Role Phone Anahy Grayson MD Primary Care Provider [phone] Reason for Visit * Reason Comments [facility]: Transition of Care Encounter Details Date Type Department Care Team (Late st Contact Info) Description 09/23/2023 9:30 AM EDT [facility] Visit [facility], [facility] [address] [facility] [place] [address] [facility], Nurse [facility] [address] [facility] [place] [address] Allergies No known active allergiesdocumented as of this encounter (statuses as of 09/23/2023) Medications Medication Sig Dispensed Refills Start Date End Date Status Aspirin 81 MG Oral Tablet Delayed Release Take 1 Tablet by mouth in the morning. 0 Active Spiriva Respimat 2.5 MCG/ACT Inhalation Aerosol Solution (Tiotropium [place] Monohydrate) Inhale by mouth 2 Puffs in [...] Oral Tablet (Crestor)Indications: Coronary artery disease involving [place] coronary artery of [place] heart without angina pectoris,HFrEF (heart failure with reduced ejection fraction) ([facility]),HTN, goal below 140/90,Dyslipidemia, goal LDL below [...] Oral Tablet (Revatio)Indications: Raynaud's disease with gangrene (HCC) TAKE ONE TABLET BY MOUTH EVERY MORNING , 1 TABLET AT NOON AND 2 TABLETS BEFORE BEDTIME 90 Tablet 2 03/30/2023 Active sulfaSALAzine 500 MG Oral Tablet Delayed Release (Azulfidine Entab) Take 1 Tablet by mouth in the morning. 2 tablets twice daily. 0 Active Jardiance 10 MG Oral Tablet (Empagliflozin)Indica tions:HFrEF (heart failure with reduced ejection fraction) ([facility]) TAKE 1 TABLET BY MOUTH EVERY MORNING 90 Tablet 3 05/08/2023 Active Furosemide 20 MG Oral Tablet (Lasix)Indications:HF rEF (heart failure with reduced ejection fraction) ([facility] [...] positive rheumatoid factor ([facility]) TAKE 1 TO 2 TABLETS BY [...] :Ischemic foot ulcer due to atherosclerosis of [place] artery of limb ([facility]),Rheumatoid arthritis involving multiple sites with positive rheumatoid factor ([facility]) Take 1 Tablet by mouth every 6 hours as needed for Pain, Severe. 120 Tablet 0 08/31/2023 Active Entresto 24-26 MG Oral Tablet (sacubitril-valsartan 24-26 mg per tab)Indications:HTN, goal below 140/90,Frequent PVCs,HFrEF (heart failure with reduced ejection fraction) ([facility]),PAF (paroxysmal atrial fibrillation) ([facility]) TAKE 1 TABLET BY MOUTH TWICE DAILY EVERY MORNING AND BEFORE BEDTIME 180 Tablet 3 09/17/2023 Active documented as of this encounter (statuses as of 09/23/2023) Active Problems Problem Noted Date Diagnosed Date [...] as of this encounter (statuses as of 09/23/2023) Resolved Problems Problem Noted Date Diagnosed Date [...] as of this encounter (statuses as of 09/23/2023) Immunizations Name Administration Dates Next Due HepA [...] Sign Reading Time Taken Comments Blood Pressure 98/60 09/23/2023 10:28 AM EDT Pulse 82 09/23/2023 10:28 AM EDT Temperature 36.7 C (98 F) 09/23/2023 10:28 AM EDT Respiratory Rate 18 09/23/2023 10:28 AM EDT Oxygen Saturation 96% 09/23/2023 10:28 AM EDT Inhaled Oxygen Concentration - - Weight - - Height - - Body Mass Index - - documented in this encounter Progress Notes * Valentina Siu RN - 09/23/2023 9:01 AM EDT [facility] Professional DriverManufacturing Shift Supervisor of Care Visit Date: 09/23/2023 Time: 1010 am Name: Harrison Morgan : 1965 Situation: Pt seen today by [facility] inspector rag sorting for transition of care visit. Background: Pertinent PMH: Afib, cardiomyopathy, CHF, PAD, OA, chronic pain, COPD Utilization: Present to [facility] on 08/30/2023 due to chest pain and SOB. Diagnosed with severe PAD, underwent partial amputation of right great toe. Pt states he had osteomyelitis.Discharged to [facility] for rehab and subsequently discharged on 09/17/2023. Assessment: Pt presents for visit at home of his mother. He is sitting up at the [facility] for visit. Unable to locate discharge paperwork from [facility]. Reports feeling generally fatigued. Right toe surgical wound is well approximated, no redness or drainage. BLE with +1 edema. Pt was weighing daily but does not have a scale at his mothers home. He is goingto get a scale today and will resume daily weights. Has order to take an extra 20mg lasix daily prn. C/O generalized pain from RA, worst in neck and back. Took percocet this am and verbalizes that waseffective. Med reconciliation - noted pt is taking 325mg asa, he is ordered 81mg. Will purchase 81mg and stop taking 325mg Recommendation/Treatment/Plan: Medications as ordered Keep upcoming medical appointments; appointment dates and times reviewed with patient at time of visit. Oxygen 2 lpm at HS Obtain scale - weigh daily and record Obtain Baby Aspirin - stop taking 325mg dose Monitor right toe surgical wound for redness, drainage Safety precautions: ambulates with rolled walker Education: Educated on home safety: Create a fall [...] exercises that will be right for you. Is Physician in agreement with POC? yes Problems/Symptoms: Review of Systems Constitutional: Positive for fatigue. Negative for chills and fever. Respiratory: Positive for shortness of breath (Exertional, baseline, resolves with rest). Negative for cough. Cardiovascular: Positive for leg swelling. Negative for chest pain and palpitations. Gastrointestinal: Positive for abdominal pain. Negative for constipation and diarrhea. Endocrine: Negative. Genitourinary: Negative for dysuria, frequency and urgency. Musculoskeletal: Positive for arthralgias, back pain and neck pain. Skin: Positive for wound (right toe surgical wound - healing well). Allergic/Immunologic: Negative. Neurological: Positive for light-headedness. Negative for dizziness and headaches. Hematological: Negative. Psychiatric/Behavioral: Negative. Physical Exam: BP 98/60 (BP Site: Left Arm, BP Position: Sitting, BP Cuff Size: Regular) | Pulse 82 | Temp 36.7 C (98 F) (Tympanic) | Resp 18 | SpO2 96% Pain 2 Physical Exam HENT: Mouth/Throat: Mouth: Mucous membranes are moist. Cardiovascular: Rate and Rhythm: Normal rate. Rhythm irregular. Pulmonary: Effort: Pulmonary effort is normal. Breath sounds: Normal breath sounds. Abdominal: General: Bowel sounds are normal. Palpations: Abdomen is soft. Musculoskeletal: Right lower leg: Edema (+1) present. Left lower leg: Edema (+1) present. Skin: General: Skin is warm and dry. Capillary Refill: Capillary refill takes more than 3 seconds. Neurological: Mental Status: He is alert and oriented to person, place, and time. Psychiatric: Mood and Affect: Mood normal. [facility] Completed this Visit: Yes. [facility]: Reason Completed: Status post ED visit/hospital admission [facility] ([facility]) Fall Risk Assessment Tool Age 65+: No (09/23/231099) Diagnosis (3 or more co-existing): Yes (09/23/231099) Prior history of falls within 3 months: No (09/23/231099) Incontinence: No (09/23/231099) Visual impairment: No (09/23/231099) Impaired functional mobility: Yes (09/23/231099) Environmental hazards: Yes (09/23/231099) Poly Pharmacy (4 or more prescriptions - any type): Yes (09/23/231099) Pain affecting level of function: Yes (09/23/231099) Cognitive impairment: No (09/23/231099) Score - a score of 4 or more is considered at risk for fallin (09/23/231099) [facility] Interventions: Fall education provided, reviewed/provided Fall brochure Confirmed current care and supervision in home: staying with mother, assistance available at all times Home Interventions Provided: Reinforced current Plan of Care, including self-management and medication regimen Bottles out medication reconciliation Patient's 'Red Flags': Edema Wt gain of 3 lbs in 24 hrs or 5 lbs in one week Increased SOB Fever/chills Patient Needs to Remember: Contact [facility] at [phone] with any red flags, changes in condition, or concerns. Referrals Needed: N/A Follow Up: Is there cellular connectivity/connectivity in the home? Yes Does the patient have internet in the home? Yes Patient encouraged to call the intake phone number for all urgent but not emergent issues. Scheduled to follow up with patient 2 weeks. Valentina Siu RN 09/23/2023 1010 am documented in this encounter Plan of Treatment Upcoming Encounters Date Type Department Care Team (Late st Contact Info) Description 09/26/2023 8:30 AM EDT Office Visit Rheumatology [facility] [address] [facility] [place] [address] Clyde Craft PA-C [address] [employer] [place] [address] 10/01/2023 9:20 AM EDT Office Visit Neurology [facility] [address] [place] [address] Aparna Ruano PA-C [address] [place] [address] 12/21/2023 1:40 PM EDT Office Visit Family [facility] [address] [place] [address] Anahy Grayson MD [address] [place], [place] [phone] 02/20/2024 10:30 AM EDT Office Visit Vascular Surgery, [facility] [address] [facility] [place] [address] Tre Lange MD [address] [place] [address] Scheduled Procedures Name Priority Associated Diagnoses Date/Ti me COLONOSCOPY FLEXIBLE PROXIMAL DIAGNOSTIC Recall Colon cancer screening Health Maintenance Due Date Last Done Comments DISCUSS TOBACCO CESSATION (REFER TO SMARTSET #5391) 1965 COVID-19 Vaccine (#1) 02/09/1969 Alpha-1 Antitrypsin [...] D LEVEL ONCE IN A LIFETIME-USE SMARTSET# 71722 Completed 08/01/2023, 08/04/2021 GARDASIL-HPV IMMUNIZATION SERIES Aged Out No longer eligible based on patient's age to complete this topic MENINGOCOCCAL (MENACTRA/MENVEO) Aged Out No longer eligible based on patient's age to complete this topic documented as of this encounter Medical Devices Not on filedocumented as of this encounter Care Teams Tool Setter Apprentice Relationship Specialty Start Date End Date Anahy Grayson MD [address] [place] [address] PCP - General Internal Medicine 01/27/22 documented as of this encounter
--- OUTSIDE RECORDS SUMMARY | 2023-10-25 13:47 | External Medical Summary | Summary of Care ---
Author Name Unknown Organization [facility] Address [address] [place] [address] Phone [phone] Care Team Providers Care Apprentice Architect Name Role Phone Anahy Grayson MD Primary Care Provider [phone] Reason for Visit * Reason Onset Date Comments Encounter Created in Error 09/22/2023 Encounter Details Date Type Department Care Team (Latest Contact Info) Description 09/22/2023 12:50 PM EDT Scheduled Telephone [facility] [place] [place] [address] [place] [address] [facility], Nurse [facility] [address] [place] [address] Canceled (Communications Assistant Error) Allergies No known active allergiesdocumented as of this encounter (statuses as of 09/24/2023) Medications Medication Sig Dispensed Refills Start Date End Date Status Aspirin 81 MG Oral Tablet Delayed Release Take 1 Tablet by mouth in the morning. 0 Active Spiriva Respimat 2.5 MCG/ACT Inhalation Aerosol Solution (Tiotropium [place] Monohydrate) Inhale by mouth 2 Puffs in [...] Oral Tablet (Crestor)Indications: Coronary artery disease involving [place] coronary artery of [place] heart without angina pectoris,HFrEF (heart failure with reduced ejection fraction) ([facility]),HTN, goal below 140/90,Dyslipidemia, goal LDL below 70,Palpitations [...] Active Sarilumab 200 MG/1.14ML Subcutaneous Solution Auto-injector (Moburstzara)Indications: Rheumatoid arthritis involving multiple sites with positive rheumatoid factor ([facility]) Inject 1.14 mL under the skin every [...] failure with reduced ejection fraction) ([facility]) TAKE 1 TABLET BY MOUTH EVERY MORNING 90 Tablet 3 05/08/2023 Active Furosemide 20 MG Oral Tablet (Lasix)Indications:HF rEF (heart failure with reduced ejection fraction) ([facility]) Take 2 Tablets by mouth in the morning. 180 Tablet 3 06/06/2023 Active Additional Information Patient taking differently:40 mg Oral Daily(AM),Pt takes 2 tabs every morning and additional 1 in the afternoon as needed for edema, Reported on 09/23/2023 predniSONE 5 MG Oral Tablet (Deltasone)Indication s:Rheumatoid arthritis involving multiple sites with positive rheumatoid factor ([facility]) TAKE 1 TO 2 TABLETS BY MOUTH [...] :Ischemic foot ulcer due to atherosclerosis of [place] artery of limb ([facility]),Rheumatoid arthritis involving multiple sites with positive rheumatoid factor ([facility]) Take 1 Tablet by mouth every 6 hours as needed for Pain, Severe. 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 06/23/2022 Scoliosis 06/23/2022 [...] as of this encounter (statuses as of 09/24/2023) Resolved Problems Problem Noted Date Diagnosed Date [...] as of this encounter (statuses as of 09/24/2023) Immunizations Name Administration Dates Next Due HepA [...] 09/26/2023 8:30 AM EDT Office Visit Rheumatology [facility] [place] [address] [place], [place] [phone] Clyde Craft PA-C [address] [email or web address] [place] [address] 10/01/2023 9:20 AM EDT Office Visit [facility] [address] [facility] [place] [address] Aparna Ruano PA-C [address] [facility] [place] [address] 10/03/2023 11:30 AM EDT Office Visit Cardiology, [facility] [address] [place] [address] Elizabeth Johnson CRNP [address] [place] [address] 12/21/2023 1:40 PM EDT Office Visit [facility] [address] [place] [phone] Anahy Grayson MD [address] [place] [address] 02/20/2024 10:30 AM EDT Office Visit Vascular Surgery, [facility] [address] [place] [address] Tre Lange MD [address] [place] [address] Scheduled Procedures Name Priority Associated [...] D LEVEL ONCE IN A LIFETIME-USE SMARTSET# 66953 Completed 08/01/2023, 08/04/2021 GARDASIL-HPV IMMUNIZATION SERIES Aged Out No longer eligible based on patient's age to complete this topic MENINGOCOCCAL (MENACTRA/MENVEO) Aged Out No longer eligible based on patient's age to complete this topic documented as of this encounter Medical Devices Not on filedocumented as of this encounter Care Teams Apprentice Architect Relationship Specialty Start Date End Date Anahy Grayson MD [address] [place], [place] [phone] PCP - General Internal Medicine 01/27/22 documented as of this encounter
--- OUTSIDE RECORDS SUMMARY | 2023-10-25 13:47 | External Medical Summary | Summary of Care ---
Author Name Unknown Organization [facility] Address [address] [place] [address] Phone [phone] Care Team Providers Care Wire Border Assembler Name Role Phone Anahy Grayson MD Primary Care Provider [phone] Reason for Visit * Reason Onset Date Comments Appointment 09/21/2023 HD appt Encounter Details Date Type Department Care Team (Late st Contact Info) Description 09/21/2023 Telephone [facility] [address] [place] [address] Anahy Grayson MD [address] [place] [address] Appointment (HD appt) Allergies No known active allergiesdocumented as of this encounter (statuses as of 09/24/2023) Medications Medication Sig Dispensed Refills Start Date End Date Status Aspirin 81 MG Oral Tablet Delayed Release Take 1 Tablet by mouth in the morning. 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 Also mailed a letter, patient is active on his [email or web address] portal, sent a [email or web address] Message as well. * Telephone Encounter - Spencer Sorto OSA - 09/24/2023 7:55 AM EDT Scheduled with Elizabeth Johnson on: Tuesday October 03, 2023 Arrive by 11:15 AMAppt at 11:30 AM (30 min Will call patient * Telephone Encounter - Gena Jamison OSA - 09/21/2023 2:51 PM EDT Per 09.21.2023 Checkout notes patient is to schedule with Cardio as he has been discharged from thehospital documented in this encounter Plan of Treatment Upcoming Encounters Date Type Department Care Team (Late st Contact Info) Description 09/26/2023 8:30 AM EDT Office Visit Rheumatology [facility] [address] [employer] [place] [address] Clyde Craft PA-C [address] [place] [address] 10/01/2023 9:20 AM EDT Office Visit Neurology [facility] [address] [facility] [place] [address] Aparna Ruano PA-C [address] [facility] [place] [address] 10/03/2023 11:30 AM EDT Office Visit Cardiology, [facility] [address] [place] [address] Elizabeth Johnson CRNP [address] [place] [address] 12/21/2023 1:40 PM EDT Office Visit [address] [place] [phone] Anahy Grayson MD [address] [facility] [place] [address] 02/20/2024 10:30 AM EDT Office Visit Vascular Surgery, [facility] [address] [place] [address] Tre Lange MD [address] [facility] [address] Scheduled Procedures Name Priority Associated Diagnoses Date/Ti me COLONOSCOPY FLEXIBLE PROXIMAL DIAGNOSTIC Recall Colon cancer screening Health Maintenance Due Date Last Done Comments DISCUSS TOBACCO CESSATION (REFER TO SMARTSET #7090) 1965 COVID-19 Vaccine (#1) 02/09/1969 Alpha-1 Antitrypsin [...] D LEVEL ONCE IN A LIFETIME-USE SMARTSET# 41335 Completed 08/01/2023, 08/04/2021 GARDASIL-HPV IMMUNIZATION SERIES Aged Out No longer eligible based on patient's age to complete this topic MENINGOCOCCAL (MENACTRA/MENVEO) Aged Out No longer eligible based on patient's age to complete this topic documented as of this encounter Medical Devices Not on filedocumented as of this encounter Care Teams Wire Border Assembler Relationship Specialty Start Date End Date Anahy Grayson MD [address] [place] [address] PCP - General Internal Medicine 01/27/22 documented as of this encounter
--- OUTSIDE RECORDS SUMMARY | 2023-10-25 13:47 | External Medical Summary | Summary of Care ---
Author Name Unknown Organization [facility] Address [address] [place] [address] Phone [phone] Care Team Providers Care Clothes Designer Name Role Phone Anahy Grayson MD Primary Care Provider [phone] Reason for Visit * Reason Onset Date Comments Appointment 10/01/2023 Encounter Details Date Type Department Care Team (Late st Contact Info) Description 10/01/2023 Telephone [facility] [address] [place], [place] [id number] Services, Scheduling [address] [place] [address] Appointment (//) Allergies No known active allergiesdocumented as of this encounter (statuses as of 10/01/2023) Medications Medication Sig Dispensed Refills Start Date End Date Status Aspirin 81 MG Oral Tablet Delayed Release Take 1 Tablet by mouth in the morning. 0 Active Spiriva Respimat 2.5 MCG/ACT Inhalation Aerosol Solution (Tiotropium [place] Monohydrate) Inhale by mouth 2 Puffs in [...] Oral Tablet (Crestor)Indications: Coronary artery disease involving [place] coronary artery of [place] heart without angina pectoris,HFrEF (heart failure with [...] Active Sarilumab 200 MG/1.14ML Subcutaneous Solution Auto-injector (Glidezara)Indications: Rheumatoid arthritis involving multiple sites with positive rheumatoid factor ([facility]) Inject 1.14 mL under the skin every 14 days. 2.28 mL 11 03/05/2023 Active Omeprazole 40 MG Oral Capsule Delayed Release (PriLOSEC) Take 1 Capsule by mouth in the morning. 1 hour before the first meal of the day.. 90 Capsule 3 03/15/2023 Active Sildenafil Citrate 20 MG Oral Tablet (Revatio)Indications: Raynaud's disease with gangrene ([facility]) TAKE ONE TABLET BY MOUTH EVERY [...] fraction) ([facility]) TAKE 1 TABLET BY MOUTH EVERY [...] factor ([facility]) TAKE 1 TO 2 TABLETS BY [...] :Ischemic foot ulcer due to atherosclerosis of [place] artery of limb ([facility]),Rheumatoid arthritis involving multiple sites with positive rheumatoid factor ([facility]) Take 1 Tablet by mouth every 6 hours as needed for Pain, Severe. 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 Xray roasterman systemic steroid user 06/23/2022 Scoliosis 06/23/2022 SVT [...] as of this encounter (statuses as of 10/01/2023) Resolved Problems Problem Noted Date Diagnosed Date [...] as of this encounter (statuses as of 10/01/2023) Immunizations Name Administration Dates Next Due HepA [...] Telephone Encounter - Angelina Almanzar OSA - 10/01/2023 11:05 AM EDT Request from RNCM to schedule appt within next 2 wks with AP I found one and called and was SO who said to have visit with Jimmy but at his mother's address of [address] [place] [address] for now as he is not in his home at present documented in this encounter Plan of Treatment Upcoming Encounters Date Type Department Care Team (Late st Contact Info) Description 10/03/2023 11:30 AM EDT Office Visit Cardiology, [facility] [address] [facility] [place] [address] Elizabeth Johnson CRNP [address] [facility] [place] [address] 10/08/2023 3:00 PM EDT Home Visit [facility], [facility] [address] [place] [address] Jimym Mitchell PA-C [address] [place] [address] 10/11/2023 4:10 PM EDT Office Visit Neurology [facility] [address] [facility] [place] [address] Aparna Ruano PA-C [address] [facility] [place] [address] 12/21/2023 1:40 PM EDT Office Visit [facility] [address] [place] [phone] Anahy Grayson MD [address] [place] [address] 02/20/2024 10:30 AM EDT Office Visit Vascular Surgery, [facility] [address] [facility] [place] [address] Tre Lange MD [address] [place] [address] Scheduled Procedures Name Priority Associated [...] D LEVEL ONCE IN A LIFETIME-USE SMARTSET# 98847 Completed 08/01/2023, 08/04/2021 GARDASIL-HPV IMMUNIZATION SERIES Aged Out No longer eligible based on patient's age to complete this topic MENINGOCOCCAL (MENACTRA/MENVEO) Aged Out No longer eligible based on patient's age to complete this topic documented as of this encounter Medical Devices Not on filedocumented as of this encounter Care Teams Clothes Designer Relationship Specialty Start Date End Date Anahy Grayson MD [address] [place] [address] PCP - General Internal Medicine 01/27/22 documented as of this encounter
--- OUTSIDE RECORDS SUMMARY | 2023-10-25 13:48 | External Medical Summary | Summary of Care ---
Author Name Unknown Organization [facility] Address [address] [place] [address] Phone [phone] Care Team Providers Care Hand I Tube Bender Name Role Phone Anahy Grayson MD Primary Care Provider [phone] Reason for Visit * Reason Onset Date Comments [facility]: Maintenance 09/19/2023 Encounter Details Date Type Department Care Team (Late st Contact Info) Description 09/19/2023 10:30 AM EDT Scheduled Telephone [facility], [facility] [address] [facility] [address] Alesha Perez, [address] [place] [facility] [place] [address] Allergies No known active allergiesdocumented as of this encounter (statuses as of 09/21/2023) Medications Medication Sig Dispensed Refills Start Date End Date Status Aspirin 81 MG Oral Tablet Delayed Release Take 1 Tablet by mouth in the morning. 0 Active Spiriva Respimat 2.5 MCG/ACT Inhalation Aerosol Solution (Tiotropium [place] Monohydrate) Inhale by mouth 2 Puffs in [...] Oral Tablet (Crestor)Indications: Coronary artery disease involving [place] coronary artery of [place] heart without angina pectoris,HFrEF (heart failure with reduced ejection fraction) ([facility]),HTN, goal below 140/90,Dyslipidemia, goal LDL [...] Active Sarilumab 200 MG/1.14ML Subcutaneous Solution Auto-injector (UQ Communicationszara)Indications: Rheumatoid arthritis involving multiple sites with positive rheumatoid factor ([facility]) Inject 1.14 mL under the [...] (heart failure with reduced ejection fraction) ([facility]) TAKE 1 TABLET BY MOUTH EVERY MORNING 90 Tablet 3 05/08/2023 Active Furosemide 20 MG Oral Tablet (Lasix)Indications:HF rEF (heart failure with reduced ejection fraction) ([facility]) Take 2 Tablets by mouth in the morning. 180 Tablet 3 06/06/2023 Active predniSONE 5 MG Oral Tablet (Deltasone)Indication s:Rheumatoid arthritis involving multiple sites with positive rheumatoid factor ([facility]) TAKE 1 TO 2 TABLETS [...] :Ischemic foot ulcer due to atherosclerosis of [place] artery of limb ([facility]),Rheumatoid arthritis involving multiple sites with positive rheumatoid factor ([facility]) Take 1 Tablet by mouth every 6 hours as needed for Pain, Severe. 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 Pt dc from facility. LVM for SW requesting a call back. Scheduled appt for today at 4pm with RNCM. LVM requesting a call back to confirm appt Follow up care placed to patient. Approved by to have home visit Sunday or Sunday morning. LVMrequesting a call back to [email or web address]. Per SO pt staying at [facility]. Phone number is [phone] Alesha Perez General Lot Attendant [facility] [email or web address] documented in this encounter Plan of Treatment Upcoming Encounters Date Type Department Care Team (Late st Contact Info) Description 09/21/2023 2:00 PM EDT Office Visit [facility] [address] [place] [address] Anahy Grayson MD [address] [place] [address] Scheduled Procedures Name Priority Associated [...] D LEVEL ONCE IN A LIFETIME-USE SMARTSET# [id number] Completed 08/01/2023, 08/04/2021 GARDASIL-HPV IMMUNIZATION SERIES Aged Out No longer eligible based on patient's age to complete this topic MENINGOCOCCAL (MENACTRA/MENVEO) Aged Out No longer eligible based on patient's age to complete this topic documented as of this encounter Medical Devices Not on filedocumented as of this encounter Care Teams Hand I Tube Bender Relationship Specialty Start Date End Date An[facility] Grayson [facility] [address] [facility] [address] PCP - General Internal Medicine 01/27/22 documented as of this encounter
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
--- OUTSIDE RECORDS SUMMARY | 2023-10-25 13:48 | External Medical Summary | Summary of Care ---
Author Name Unknown Organization [facility] Address [address] [place] [address] Phone [phone] Care Team Providers Care It Technical Support Specialist Name Role Phone Anahy Grayson MD Primary Care Provider [phone] Reason for Visit * Reason Onset Date Comments [facility]: Maintenance 09/20/2023 Encounter Details Date Type Department Care Team (Late st Contact Info) Description 09/21/2023 Telephone [facility], [facility] [address] [facility] [place] [address] Alesha Perez CM [address] [facility] [place] [address] [facility]: Maintenance Allergies No known active allergiesdocumented as of this encounter (statuses as of 09/21/2023) Medications Medication Sig Dispensed Refills Start Date End Date Status Aspirin 81 MG Oral Tablet Delayed Release Take 1 Tablet by mouth in the morning. 0 Active Spiriva Respimat 2.5 MCG/ACT Inhalation Aerosol Solution (Tiotropium [place] Monohydrate) Inhale by mouth 2 Puffs in [...] Oral Tablet (Crestor)Indications: Coronary artery disease involving [place] coronary artery of [place] heart without angina pectoris,HFrEF (heart failure with reduced ejection fraction) ([facility]),HTN, goal below 140/90,Dyslipidemia, goal LDL below 70,Palpitations [...] Active Sarilumab 200 MG/1.14ML Subcutaneous Solution Auto-injector (Incujectorzara)Indications: Rheumatoid arthritis involving multiple sites with positive rheumatoid factor ([facility]) Inject 1.14 mL under the skin [...] failure with reduced ejection fraction) ([facility]) TAKE 1 TABLET BY MOUTH EVERY MORNING 90 Tablet 3 05/08/2023 Active Furosemide 20 MG Oral Tablet (Lasix)Indications:HF rEF (heart failure with reduced ejection fraction) ([facility]) Take 2 Tablets by mouth in the morning. 180 Tablet 3 06/06/2023 Active predniSONE 5 MG Oral Tablet (Deltasone)Indication s:Rheumatoid arthritis involving multiple sites with positive rheumatoid factor ([facility]) TAKE 1 TO 2 TABLETS BY MOUTH [...] :Ischemic foot ulcer due to atherosclerosis of [place] artery of limb ([facility]),Rheumatoid arthritis involving multiple sites with positive rheumatoid factor ([facility]) Take 1 Tablet by mouth every 6 hours as needed for Pain, Severe. 120 Tablet 0 08/31/2023 Active Entresto 24-26 MG Oral Tablet (sacubitril-valsartan 24-26 mg per tab)Indications:HTN, goal below 140/90,Frequent PVCs,HFrEF (heart failure with reduced ejection fraction) ([facility]),PAF (paroxysmal atrial fibrillation) ([facility]) TAKE 1 TABLET BY MOUTH TWICE DAILY [...] dose Rx Exacerbation plan o Chest Xray artificial flowers dyer systemic steroid user 06/23/2022 Scoliosis 06/23/2022 SVT [...] Telephone Encounter - Alesha Perez CM - 09/21/2023 8:52 AM EDT Call placed to patient. SO answered phone. Pt is staying with his mom currently. Provided number for CW to call and schedule. Also provided patient with CW phone number. CW left message on provided phone number requesting a call back to schedule Alesha Perez Ex Chef [facility] at Home [email or web address] documented in this encounter Plan of Treatment Upcoming Encounters Date Type Department Care Team (Late st Contact Info) Description 09/21/2023 2:00 PM EDT Office Visit [facility] [address] [place] [place] [address] Anahy Grayson MD [address] [place] [address] Scheduled Procedures Name Priority Associated Diagnoses Date/Ti me COLONOSCOPY FLEXIBLE PROXIMAL DIAGNOSTIC Recall Colon cancer screening Health Maintenance Due Date Last Done Comments DISCUSS TOBACCO CESSATION (REFER TO SMARTSET #8306) 1965 COVID-19 Vaccine (#1) 02/09/1969 Alpha-1 Antitrypsin [...] D LEVEL ONCE IN A LIFETIME-USE SMARTSET# [id number] Completed 08/01/2023, 08/04/2021 GARDASIL-HPV IMMUNIZATION SERIES Aged Out No longer eligible based on patient's age to complete this topic MENINGOCOCCAL (MENACTRA/MENVEO) Aged Out No longer eligible based on patient's age to complete this topic documented as of this encounter Medical Devices Not on filedocumented as of this encounter Care Teams It Technical Support Specialist Relationship Specialty Start Date End Date Anahy Grayson MD [address] [place] [address] PCP - General Internal Medicine 01/27/22 documented as of this encounter
--- OUTSIDE RECORDS SUMMARY | 2023-10-25 13:48 | External Medical Summary | Summary of Care ---
Author Name Unknown Organization [facility] Address [address] [place] [address] Phone [phone] Care Team Providers Care Manager Channel Name Role Phone Anahy Grayson MD Primary Care Provider [phone] Reason for Visit * Reason Comments Hospital Follow-Up Pt here today for ho spital discharge follow up Encounter Details Date Type Department Care Team (Late st Contact Info) Description 09/20/2023 11:20 AM EDT Office Visit [facility] [address] [place] [address] Anahy Grayson MD [address] [place] [address] History of partial amputation of toe of right foot (HCC)*; PAD (peripheral artery disease) (HCC); Cardiomyopathy, unspecified type (HCC); Gastro-esophageal reflux disease without esophagitis; Persistent atrial fibrillation (HCC); Rheumatoid arthritis involving multiple sites with positive rheumatoid factor (HCC); Moderate episode of recurrent major depressive disorder (HCC) Allergies No known active allergiesdocumented as of this encounter (statuses as of 09/20/2023) Medications Medication Sig Dispensed Refills Start Date End Date Status Aspirin 81 MG Oral Tablet Delayed Release Take 1 Tablet by mouth in the morning. 0 Active Spiriva Respimat 2.5 MCG/ACT Inhalation Aerosol Solution (Tiotropium [place] Monohydrate) Inhale by mouth 2 Puffs in [...] Oral Tablet (Crestor)Indications: Coronary artery disease involving saxman coronary artery of saxman heart without angina pectoris,HFrEF (heart failure with reduced ejection fraction) ([facility]),HTN, goal below 140/90,Dyslipidemia, goal LDL below [...] Active Sarilumab 200 MG/1.14ML Subcutaneous Solution Auto-injector (Lighting by LED)Indications: Rheumatoid arthritis involving multiple sites with positive rheumatoid factor ([facility]) Inject 1.14 mL under the skin every 14 days. 2.28 mL 11 03/05/2023 Active Omeprazole 40 MG Oral Capsule Delayed Release (PriLOSEC) Take 1 Capsule by mouth in the morning. 1 hour before the first meal of the day.. 90 Capsule 3 03/15/2023 Active Sildenafil Citrate 20 MG Oral Tablet (Revatio)Indications: Raynaud's disease with gangrene ([facility]) TAKE ONE TABLET BY MOUTH EVERY MORNING , 1 TABLET AT NOON AND 2 TABLETS BEFORE BEDTIME 90 Tablet 2 03/30/2023 Active sulfaSALAzine 500 MG Oral Tablet Delayed Release (Azulfidine Entab) Take 1 Tablet by mouth in the morning. 0 Active Jardiance 10 MG Oral Tablet (Empagliflozin)Indica tions:HFrEF (heart failure with reduced ejection fraction) ([facility]) TAKE 1 TABLET BY MOUTH EVERY MORNING 90 Tablet 3 05/08/2023 Active Furosemide 20 MG Oral Tablet (Lasix)Indications:HF rEF (heart failure with reduced ejection fraction) ([facility]) Take 2 Tablets by mouth in the morning. 180 Tablet 3 06/06/2023 Active predniSONE 5 MG Oral Tablet (Deltasone)Indication s:Rheumatoid arthritis involving multiple sites with positive rheumatoid factor ([facility]) TAKE 1 TO 2 TABLETS BY [...] :Ischemic foot ulcer due to atherosclerosis of saxman artery of limb ([facility]),Rheumatoid arthritis involving multiple sites with positive rheumatoid factor ([facility]) Take 1 Tablet by mouth every 6 hours as needed for Pain, Severe. 120 Tablet 0 08/31/2023 Active Entresto 24-26 MG Oral Tablet (sacubitril-valsartan 24-26 mg per tab)Indications:HTN, goal below 140/90,Frequent PVCs,HFrEF (heart failure with reduced ejection fraction) ([facility]),PAF (paroxysmal atrial fibrillation) ([facility]) TAKE 1 TABLET BY MOUTH TWICE DAILY EVERY MORNING AND BEFORE BEDTIME 180 Tablet 3 09/17/2023 Active documented as of this encounter (statuses as of 09/20/2023) Active Problems Problem Noted Date Diagnosed Date [...] as of this encounter (statuses as of 09/20/2023) Resolved Problems Problem Noted Date Diagnosed Date [...] as of this encounter (statuses as of 09/20/2023) Immunizations Name Administration Dates Next Due HepA [...] as of this encounter Progress Notes * Anahy Grayson MD - 09/20/2023 11:26 AM EDT Subjective Harrison Morgan is a 58 year old male. Chief Complaint Patient presents with Hospital Follow-Up Pt here today for hospital discharge follow up HPI: Here for hospital f/u Admission Aug 12 discharge aug 29 Dx : severe PAD, s/p rt toe partial amputation Left before seeing me due to other appointment Rescheduled tmrw PMH: Patient Active Problem List Diagnosis Code DJD (degenerative joint disease) M19.90 Erectile dysfunction N52.9 Tobacco use disorder F17.200 MEDICATION USE AGREEMENT [id number] Rheumatoid arthritis involving multiple sites with positive rheumatoid factor ([facility]) M05.79 Hepatitis C virus infection cured after antiviral drug therapy Z86.19 Effusion of left knee M25.462 Knee pain M25.569 Tear of lateral meniscus of knee S83.289A Gastro-esophageal reflux disease without esophagitis K21.9 PAD (peripheral artery disease) ([facility]) I73.9 Depression with anxiety F41.8 Cardiomyopathy ([facility]) I42.9 DDD (degenerative disc disease), lumbar M51.36 Immunodeficiency due to drugs ([facility]) D84.821, Z79.899 Age-related nuclear cataract, bilateral H25.13 SVT (supraventricular tachycardia) ([facility]) I47.10 Frequent PVCs I49.3 Chronic systolic heart failure ([facility]) 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 Z79.52 Scoliosis M41.9 COPD, group B, by GOLD 2017 classification ([facility]) J44.9 HFrEF (heart failure with reduced ejection fraction) ([facility]) I50.20 Persistent atrial fibrillation ([facility]) I48.19 Encounter for long-term (current) use of medications Z79.899 Lung nodules R91.8 Lung mass R91.8 Senile osteoporosis M81.0 Food insecurity Z59.41 Small vessel disease ([facility]) I73.9 Moderate episode of recurrent major depressive disorder ([facility]) F33.1 Current Outpatient Medications Medication Sig Dispense Refill Aspirin 81 MG Oral Tablet Delayed Release Take 1 Tablet by mouth in the morning. Spiriva Respimat 2.5 MCG/ACT Inhalation Aerosol Solution (Tiotropium [place] Monohydrate) Inhale bymouth 2 Puffs in the [...] 0 Sarilumab 200 MG/1.14ML Subcutaneous Solution Auto-injector (Lighting by LED) Inject 1.14 mL under the skinevery 14 [...] mouth in the morning. 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 Possible mold in his home. job: [employer] employer: [employer] last education: 12 service: no hobbies/interests: Hunting fishing transfusions: no exercise: little diet: no taoist/methodist: no marital status: 09/26 children: 3/ gc: [...] on file Housing Stability: Not on file Objective There were no vitals taken for this visit. ASSESSMENT/PLAN: There are no diagnoses linked to this encounter. Anahy Grayson MD documented in this encounter Nursing Notes * Connie Berumen LPN - 09/20/2023 11:08 AM EDT Chief Complaint Patient presents with Hospital Follow-Up Pt here today for hospital discharge follow up Pt left before being seen documented in this encounter Plan of Treatment Upcoming Encounters Date Type Department Care Team (Late st Contact Info) Description 09/21/2023 2:00 PM EDT Office Visit [facility] [address] [place] [address] Anahy Grayson MD [address] [place] [address] Scheduled Procedures Name Priority Associated Diagnoses Date/Ti me COLONOSCOPY FLEXIBLE PROXIMAL DIAGNOSTIC Recall Colon cancer screening Health Maintenance Due Date Last Done Comments DISCUSS TOBACCO CESSATION (REFER TO SMARTSET #2442) 1965 COVID-19 Vaccine (#1) 02/09/1969 Alpha-1 Antitrypsin [...] D LEVEL ONCE IN A LIFETIME-USE SMARTSET# 76447 Completed 08/01/2023, 08/04/2021 GARDASIL-HPV IMMUNIZATION SERIES Aged Out No longer eligible based on patient's age to complete this topic MENINGOCOCCAL (MENACTRA/MENVEO) Aged Out No longer eligible based on patient's age to complete this topic documented as of this encounter Medical Devices Not on filedocumented as of this encounter Visit Diagnoses Diagnosis History of partial amputation of toe of right foot (HCC)- Primary PAD (peripheral artery disease) (HCC) Peripheral vascular disease, unspecified Cardiomyopathy, unspecified type (HCC) Gastro-esophageal reflux disease without esophagitis Esophageal reflux Persistent atrial fibrillation (HCC) Atrial fibrillation Rheumatoid arthritis involving multiple sites with positive rheumatoid factor (HCC) Moderate episode of recurrent major depressive disorder (HCC) documented in this encounter Care Teams Manager Channel Relationship Specialty Start Date End Date Anahy Grayson MD [address] [place] [address] PCP - General Internal Medicine 01/27/22 documented as of this encounter
--- OUTSIDE RECORDS SUMMARY | 2023-10-25 13:48 | External Medical Summary | Summary of Care ---
Author Name Unknown Organization [facility] Address [address] [place] [address] Phone [phone] Care Team Providers Care Director Microbiology Name Role Phone Anahy Grayson MD Primary Care Provider [phone] Reason for Visit * Reason Comments [facility]: Transition of Care Encounter Details Date Type Department Care Team (Late st Contact Info) Description 09/23/2023 9:30 AM EDT Home Visit [facility], [facility] [address] [facility] [place] [address] [facility], Nurse [facility] [address] [place] [address] Allergies No known active allergiesdocumented as of this encounter (statuses as of 09/23/2023) Medications Medication Sig Dispensed Refills Start Date End Date Status Aspirin 81 MG Oral Tablet Delayed Release Take 1 Tablet by mouth in the morning. 0 Active Spiriva Respimat 2.5 MCG/ACT Inhalation Aerosol Solution (Tiotropium Romeo Monohydrate) Inhale by mouth 2 Puffs in [...] Oral Tablet (Crestor)Indications: Coronary artery disease involving cher-ae heights coronary artery of cher-ae heights heart without angina pectoris,HFrEF (heart failure with [...] :Ischemic foot ulcer due to atherosclerosis of cher-ae heights artery of limb ([facility]),Rheumatoid arthritis involving multiple sites with positive rheumatoid factor ([facility]) Take 1 Tablet by mouth every 6 hours as needed for Pain, Severe. 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 Background: Pertinent PMH: Afib, cardiomyopathy, CHF, PAD, OA, chronic pain, COPD Utilization: Present to [facility] on 08/30/2023 due to chest pain and SOB. Diagnosed with severe PAD, underwent partial amputation of right great toe. Pt states he had osteomyelitis.Discharged to [facility] for rehab and subsequently discharged on 09/17/2023. Assessment: Pt presents for visit at home of his mother. He is sitting up at the [facility] for visit. Unable to locate discharge paperwork from [facility]. Reports feeling generally fatigued. Right toe [...] time. Psychiatric: Mood and Affect: Mood normal. [facility] Completed this Visit: Yes. [facility]: Reason Completed: Status post ED visit/hospital admission [facility] ([facility]) Fall Risk Assessment Tool Age 65+: No [...] is considered at risk for fallin (09/23/231099) [facility] Interventions: Fall education provided, reviewed/provided Fall brochure [...] to Remember: Contact [facility] at [phone] with any red flags, changes in condition, [...] 09/26/2023 8:30 AM EDT Office Visit Rheumatology [facility] [address] [facility] [place] [address] Clyde Craft PA-C [address] [place] [address] 10/01/2023 9:20 AM EDT Office Visit Neurology [facility] [address] [place] [address] Aparna Ruano PA-C [address] [place] [address] 12/21/2023 1:40 PM EDT Office Visit Family [facility] [address] [place] [address] Anahy Grayson MD [address] [place], [place] [id number] 02/20/2024 10:30 AM EDT Office Visit Vascular Surgery, [facility] [address] [facility] [place] [address] Tre Lange MD [address] [place] [address] Scheduled Procedures Name Priority Associated Diagnoses Date/Ti me COLONOSCOPY FLEXIBLE PROXIMAL DIAGNOSTIC Recall Colon cancer screening Health Maintenance Due Date Last Done Comments DISCUSS TOBACCO CESSATION (REFER TO SMARTSET #6994) 1965 COVID-19 Vaccine (#1) 02/09/1969 Alpha-1 Antitrypsin [...] D LEVEL ONCE IN A LIFETIME-USE SMARTSET# [id number] Completed 08/01/2023, 08/04/2021 GARDASIL-HPV IMMUNIZATION SERIES Aged Out No longer eligible based on patient's age to complete this topic MENINGOCOCCAL (MENACTRA/MENVEO) Aged Out No longer eligible based on patient's age to complete this topic documented as of this encounter Medical Devices Not on filedocumented as of this encounter Care Teams Director Microbiology Relationship Specialty Start Date End Date Anahy Grayson MD [address] [place] [address] PCP - General Internal Medicine 01/27/22 documented as of this encounter
--- OUTSIDE RECORDS SUMMARY | 2023-10-25 13:49 | External Medical Summary | Summary of Care ---
Author Name Unknown Organization [facility] Address [address] [place] [address] Phone [phone] Care Team Providers Care Master Carpenter Name Role Phone Anahy Grayson MD Primary Care Provider [phone] Reason for Visit * Reason Comments eRx-Medication Refill Encounter Details Date Type Department Care Team (Late st Contact Info) Description 09/13/2023 Refill Cardiology, [facility] [address] [place] [address] Elizabeht Johnson CRNP [address] [facility] [place] [address] HTN, goal below 140/90*; Frequent PVCs; HFrEF (heart failure with reduced ejection fraction) ([facility]); PAF (paroxysmal atrial fibrillation) ([facility]) Allergies No known active allergiesdocumented as of this encounter (statuses as of 09/17/2023) Medications Medication Sig Dispensed Refills Start Date End Date Status Aspirin 81 MG Oral Tablet Delayed Release Take 1 Tablet by mouth in the morning. 0 Active Spiriva Respimat 2.5 MCG/ACT Inhalation Aerosol Solution (Tiotropium [place] Monohydrate) Inhale by mouth 2 Puffs in [...] 3 Active Eliquis 5 MG Oral Tablet (Apixaban)Indication s:Persistent atrial fibrillation (HCC) TAKE ONE TABLET BY MOUTH 2 TIMES A DAY 180 Tablet 3 3 Active Rosuvastatin Calcium 5 MG Oral Tablet (Crestor)Indications :Coronary artery disease involving kashia coronary artery of kashia heart without angina pectoris,HFrEF (heart failure with reduced ejection fraction) ([facility]),HTN, goal below 140/90,Dyslipidemia, goal LDL below [...] Active Sarilumab 200 MG/1.14ML Subcutaneous Solution Auto-injector (Conclusive Analyticszara)Indications :Rheumatoid arthritis involving multiple sites with positive rheumatoid factor ([facility]) Inject 1.14 mL under the skin [...] ations:HFrEF (heart failure with reduced ejection fraction) ([facility]) TAKE 1 TABLET BY MOUTH EVERY MORNING 90 Tablet 3 3 Active Furosemide 20 MG Oral Tablet (Lasix)Indications:H FrEF (heart failure with reduced ejection fraction) ([facility]) Take 2 Tablets by mouth in the morning. 180 Tablet 3 4 Active predniSONE 5 MG Oral Tablet (Deltasone)Indicatio ns:Rheumatoid arthritis involving multiple sites with positive rheumatoid factor ([facility]) TAKE 1 TO 2 TABLETS BY MOUTH ONCE DAILY FOR RHEUMATOID ARTHRITIS 60 Tablet 5 4 Active Escitalopram Oxalate 10 MG Oral Tablet (Lexapro) Take 1 Tablet by mouth in the morning. 30 Tablet 0 4 Active Spironolactone 25 MG Oral Tablet (Aldactone)Indicatio [...] TWICE DAILY. 180 Tablet 3 4 Active oxyCODONE-Acetaminop hen 10-325 MG Oral Tablet (Percocet)Indication s:Ischemic foot ulcer due to atherosclerosis of kashia artery of limb ([facility]),Rheumatoid arthritis involving multiple sites with positive rheumatoid factor ([facility]) Take 1 Tablet by mouth every 6 hours as needed for Pain, Severe. 120 Tablet 0 4 Active Entresto 24-26 MG Oral Tablet (sacubitril-valsarta n 24-26 mg per tab)Indications:HTN, goal below 140/90,Frequent PVCs,HFrEF (heart failure with reduced ejection fraction) ([facility]),PAF (paroxysmal atrial fibrillation) ([facility]) TAKE 1 TABLET BY MOUTH TWICE DAILY EVERY MORNING AND BEFORE BEDTIME 180 Tablet 3 4 Active Entresto 24-26 MG Oral Tablet (sacubitril-valsarta n 24-26 mg per tab) Take 1 Tablet by mouth in the morning and 1 Tablet before bedtime. 180 Tablet 3 3 09/17/19 24 Discontinued documented as of this encounter (statuses as of 09/17/2023) Active Problems Problem Noted Date Diagnosed Date [...] as of this encounter (statuses as of 09/17/2023) Resolved Problems Problem Noted Date Diagnosed Date [...] as of this encounter (statuses as of 09/17/2023) Immunizations Name Administration Dates Next Due HepA [...] Telephone Encounter - Aparna Burrell DO - 09/17/2023 1:05 PM EDT Signed Prescriptions: Disp Refills Entresto 24-26 MG Oral Tablet (sacubitril-*180 Ta*3 Sig: TAKE 1 TABLET BY MOUTH TWICE DAILY EVERY MORNING AND BEFORE BEDTIME Authorizing Provider: APARNA BURRELL * Telephone Encounter - Interface, E-Rx Ss Inbound - 09/17/2023 6:03 AM EDT Pending Prescriptions: Disp Refills Entresto 24-26 MG Oral Tablet (sacubitril-*180 Ta*3 Sig: TAKE 1 TABLET BY MOUTH TWICE DAILY EVERY MORNING AND BEFORE BEDTIME * Telephone Encounter - Interface, E-Rx Ss Inbound - 09/15/2023 6:03 AM EDT Pending Prescriptions: Disp Refills Entresto 24-26 MG Oral Tablet (sacubitril-*180 Ta*3 Sig: TAKE 1 TABLET BY MOUTH TWICE DAILY EVERY MORNING AND BEFORE BEDTIME * Telephone Encounter - Nikole Dunne [facility] - 09/13/2023 9:49 AM EDTPending Prescriptions: Disp Refills Entresto 24-26 MG Oral Tablet (sacubitril-*180 Ta*3 Sig: TAKE 1 TABLET BY MOUTH TWICE DAILY EVERY MORNING AND BEFORE BEDTIME * Telephone Encounter - Nikole Dunne CMA - 09/13/2023 9:49 AM EDT Did you pend patient's preferred pharmacy and medication before forwarding?yes Pharmacy: [id number] [facility] Pending Prescriptions: Disp Refills Entresto 24-26 MG Oral Tablet (sacubitril*180 Ta*3 Sig: TAKE 1 TABLET BY MOUTH TWICE DAILY EVERY MORNING AND BEFORE BEDTIME Last Visit: 12/19/2022 (in office), 08/11/2022 (telemedicine) Next Visit: Visit date not found If no future appointments scheduled, and last appointment is greater than a year ago, please schedule patient for a follow-up appointment Last date the medication was ordered: 07-28-2022 Is this request for a controlled substance?No [...] Care Team (Late st Contact Info) Description 09/17/2023 1:40 PM EDT Office Visit [facility] [address] [place] [facility] [place] [id number] Anahy Grayson MD [address] [place] [address] 09/19/2023 10:30 AM EDT Scheduled Telephone [facility], [facility] [address] [facility] [place] [address] Alesha Perez, [address] [place] [address] 09/20/2023 11:20 AM EDT Office Visit [facility] [address] [place] [facility] [place] [address] An[facility]y Grayson MD [address] [facility] [address] Scheduled Procedures Name Priority Associated Diagnoses Date/Ti me COLONOSCOPY FLEXIBLE PROXIMAL DIAGNOSTIC Recall Colon cancer screening Health Maintenance Due Date Last Done Comments DISCUSS TOBACCO CESSATION (REFER TO SMARTSET #9686) 1965 COVID-19 Vaccine (#1) 02/09/1969 Alpha-1 Antitrypsin 02/09/1982 Zoster Vaccines (1 of 2) 02/09/1983 Cologuard 02/09/2009 Fecal Occult Blood Test 02/09/2009 Sigmoidoscopy 02/09/2009 *COPD SEVERITY VERIFIED BY PFT 06/25/2022 O2 ASSESSMENT COMPLETED IN PAST YEAR FOR COPD 10/12/2023 10/11/2022 DIG LEVEL FOR MEDICATION MONITORING YEARLY 10/14/2023 10/13/2022, 08/28/2022 DXA Scan 12/07/2023 12/06/2021, 12/06/2021 Influenza Vaccine (FLU shot) (Season Ended) 2024 03/03/2021, 02/12/2020, 03/21/2019, Additional history exists Pneumococcal Vaccine: Pediatrics (0 [...] D LEVEL ONCE IN A LIFETIME-USE SMARTSET# [id number] Completed 08/01/2023, 08/04/2021 GARDASIL-HPV IMMUNIZATION SERIES Aged Out No longer eligible based on patient's age to complete this topic MENINGOCOCCAL (MENACTRA/MENVEO) Aged Out No longer eligible based on patient's age to complete this topic documented as of this encounter Medical Devices Not on filedocumented as of this encounter Visit Diagnoses Diagnosis HTN, goal below 140/90- Primary Unspecified essential hypertension Frequent PVCs Other premature beats HFrEF (heart failure with reduced ejection fraction) (HCC) PAF (paroxysmal atrial fibrillation) (HCC) Atrial fibrillation documented in this encounter Care Teams Master Carpenter Relationship Specialty Start Date End Date Anahy Grayson MD [address] [place] [address] PCP - General Internal Medicine 01/27/22 documented as of this encounter
--- OUTSIDE RECORDS SUMMARY | 2023-10-25 13:49 | External Medical Summary | Summary of Care ---
Author Name Unknown Organization [facility] Address [address] [place] [address] Phone [phone] Care Team Providers Care Dip Unit Operator Name Role Phone Anahy Grayson MD Primary Care Provider [phone] Reason for Visit * Reason Onset Date Comments [facility]: Maintenance 09/19/2023 Encounter Details Date Type Department Care Team (Late st Contact Info) Description 09/19/2023 10:30 AM EDT Scheduled Telephone [facility], [facility] [address] [facility] [place] [address] Alesha Perez, [address] [place] [facility] [place] [address] Allergies No known active allergiesdocumented as of this encounter (statuses as of 09/19/2023) Medications Medication Sig Dispensed Refills Start Date End Date Status Aspirin 81 MG Oral Tablet Delayed Release Take 1 Tablet by mouth in the morning. 0 Active Spiriva Respimat 2.5 MCG/ACT Inhalation Aerosol Solution (Tiotropium Ivor Monohydrate) Inhale by mouth 2 Puffs in [...] Oral Tablet (Crestor)Indications: Coronary artery disease involving red devil coronary artery of red devil heart without angina pectoris,HFrEF (heart failure with reduced ejection fraction) ([facility]),HTN, goal below 140/90,Dyslipidemia, goal LDL [...] Active Sarilumab 200 MG/1.14ML Subcutaneous Solution Auto-injector (SCREEMOzara)Indications: Rheumatoid arthritis involving multiple sites with positive rheumatoid factor ([facility]) Inject 1.14 mL under the [...] tions:HFrEF (heart failure with reduced ejection fraction) ([facility]) TAKE 1 TABLET BY MOUTH EVERY MORNING 90 Tablet 3 05/08/2023 Active Furosemide 20 MG Oral Tablet (Lasix)Indications:HF rEF (heart failure with reduced ejection fraction) ([facility]) Take 2 Tablets by mouth in the morning. 180 Tablet 3 06/06/2023 Active predniSONE 5 MG Oral Tablet (Deltasone)Indication s:Rheumatoid arthritis involving multiple sites with positive rheumatoid factor ([facility]) TAKE 1 TO 2 TABLETS [...] :Ischemic foot ulcer due to atherosclerosis of red devil artery of limb ([facility]),Rheumatoid arthritis involving multiple sites with positive rheumatoid factor ([facility]) Take 1 Tablet by mouth every 6 hours as needed for Pain, Severe. 120 Tablet 0 08/31/2023 Active Entresto 24-26 MG Oral Tablet (sacubitril-valsartan 24-26 mg per tab)Indications:HTN, goal below 140/90,Frequent PVCs,HFrEF (heart failure with reduced ejection fraction) ([facility]),PAF (paroxysmal atrial fibrillation) ([facility]) TAKE 1 TABLET BY MOUTH TWICE DAILY EVERY MORNING AND BEFORE BEDTIME 180 Tablet 3 09/17/2023 Active documented as of this encounter (statuses as of 09/19/2023) Active Problems Problem Noted Date Diagnosed Date [...] Rx Exacerbation plan o Chest Xray intermediate card tender systemic steroid user 06/23/2022 Scoliosis 06/23/2022 [...] as of this encounter (statuses as of 09/19/2023) Resolved Problems Problem Noted Date Diagnosed Date [...] as of this encounter (statuses as of 09/19/2023) Immunizations Name Administration Dates Next Due HepA [...] AM EDT Call placed to Nicole at [facility]. Pt dc from facility. LVM for BETH requesting a call back. Scheduled appt for today at 4pm with RNCM. LVM requesting a call back to confirm appt Alesha Perez Bul[employer] [facility] [email or web address] documented in this encounter Plan of Treatment Upcoming Encounters Date Type Department Care Team (Late st Contact Info) Description 09/19/2023 4:00 PM EDT Home Visit [facility], [facility] [address] [place] [address] Cindy Underwood RN [address] [place] [id number] 09/20/2023 11:20 AM EDT Office Visit [facility] [address] [place] [address] Anahy Grayson MD [address] [place] [address] Scheduled Procedures Name Priority Associated Diagnoses Date/Ti [...] D LEVEL ONCE IN A LIFETIME-USE SMARTSET# [id number] Completed 08/01/2023, 08/04/2021 GARDASIL-HPV IMMUNIZATION SERIES Aged Out No longer eligible based on patient's age to complete this topic MENINGOCOCCAL (MENACTRA/MENVEO) Aged Out No longer eligible based on patient's age to complete this topic documented as of this encounter Medical Devices Not on filedocumented as of this encounter Care Teams Dip Unit Operator Relationship Specialty Start Date End Date Anahy Grayson MD [address] [place] [address] PCP - General Internal Medicine 01/27/22 documented as of this encounter
[2023-10-25] MEDS: DIGOXIN 0.125 MG TAB PO ONE (14:32)
--- NOTE | 2023-10-25 17:34 | Hospitalist Progress Note ---
Date of Service October 25, 2023 Assessment & Plan (1) Atrial fibrillation with rapid ventricular response: (2) Chronic combined systolic and diastolic CHF (congestive heart failure): (3) HTN (hypertension): (4) PAD (peripheral artery disease): (5) HFrEF (heart failure with reduced ejection fraction): (6) CAD (coronary artery disease): Plan: - Admit to tele - Started on cardizem gtt, HR is improving, now into the 110s, Considering medication compliance? Patient reports that he is taking all of his meds, missed them this morning though. - Continue on all home meds and give doses now - Got 1 dose of Mag [address] in, will give another - Had bout of Vtach with 14 beat run in the ER, will monitor, if meds do not work can consider amiodarone gtt. - Digoxin is nondetectable today - RVP is negative - Troponin elevated at 440.3, repeat pending, will trend, Daily EKG ordered - BNP is mildly elevated at 357, Continue home Lasix, was administered IV Lasix here in the ER already putting out adequate urine outs - Lactic acid 2.7, Trend - Continue eliquis - Most recent echo July 2023 - EF of 50 to 55%, mild LVH, trace MR, TR, no pulmonary hypertension noted-Repeat ordered for today - Patient follows with Dr. Allen as outpatient, will consult cards 10/24 HR improved wean off Cardizem drip continue Cardiac Meds appreciate Cardiology service recommendations (7) Hepatitis C: Plan: -Status posttreatment (8) COPD (chronic obstructive pulmonary disease): Plan: -Does not require supplemental O2 at baseline -No acute exacerbation -RVP is negative (9) Rheumatoid arthritis: Plan: -Continue prednisone 5 mg daily, chronic steroid use DVT ppx: teds, scds Lines: PIV x 1 FEN/GI: Heart healthy diet CODE: Full code Dispo: From home, likely to remain in the hospital x 1-2 days Admission and Anticipated Discharge Date Admission Date: October 24, 2023 Subjective Follow-up for A-fib, RVR, etc. Seen resting in bed, comfortable, not in distress States he feels better today compared to yesterday No chest pain, palpitations, dizziness Denies chills No cough, abdominal pain, problems with urination or her bowel movement, no other symptoms Review of Systems Review of Systems: all noted and negative except for above Physical Exam Physical Exam: General- oriented x 3, not in distress, speaks in sentences with no effort or accessory muscle use Eyes- anicteric Neck- no JVD Lungs- clear breath sounds bilaterally, no rales/wheezes Heart- normal rate, irregularly irregular rhythm; no murmurs Abdomen- normal bowel sounds, nondistended, soft, nontender Extremities- no pretibial edema, no calf tenderness r toe amputation site- no signs of infection Neuro- alert, oriented x 3; no gross focal neurologic deficits Skin- warm & dry Results & Data Results & Data Vital Signs (Past 12 Hours) Vital Signs Temp Pulse Pulse Resp BP Pulse Ox O2 Del Method 10/25/23 16:14 36.5 C 75 20 100/64 95 Room Air 10/25/23 14:00 75 10/25/23 12:47 83 10/25/23 10:55 36.7 C 83 20 111/74 95 Room Air 10/25/23 07:59 36.9 C 83 18 133/86 Room Air all noted and reviewed including below
[2023-10-25] MEDS ORDERED: SILDENAFIL CITRATE 20 MG TABLET PO SCH (21:00)
[2023-10-26] MEDS: PANTOprazole 40 MG TAB PO SCH (05:48)
[2023-10-26 07:14] LABS: Basophils # (auto) 0.02 K/uL (0.00-0.20); Basophils % (auto) 0.2 %; Eosinophils # (auto) 0.55 K/uL (0.00-0.50); Eosinophils % (auto) 5.2 %; Hematocrit (blood only) 31.3 % (42.0-52.0); Hemoglobin 9.6 g/dl (14.0-18.0); Immature Granulocytes # (auto) 0.13 K/uL (0.01-0.20); Immature Granulocytes % (auto) 1.2 %; Lymphocytes # (auto) 0.82 K/uL (1.20-3.40); Lymphocytes % (auto) 7.8 %; Mean Corpuscular Hemoglobin 24.4 pg (25.0-34.0); Mean Corpuscular Hgb Conc 30.7 g/dL (32.0-36.0); Mean Corpuscular Volume 79.4 fL (80.0-100.0); Mean Platelet Volume 9.6 fL (9.4-12.4); Monocytes % (auto) 1.9 %; Neutrophils # (auto) 8.86 K/uL (1.40-6.50); Neutrophils % (auto) 83.7 %; Platelet Count 417 K/uL (130-400); RDW Coefficient of Variation 18.6 % (11.5-14.5); RDW Standard Deviation 53.5 fL (36.4-46.3); Red Blood Count 3.94 M/uL (4.70-6.10); White Blood Count 10.58 K/ul (4.8-10.8)
[2023-10-26 07:51] LABS: BUN Creatinine Ratio 30.2 (10-20); Calcium 8.3 mg/dl (8.6-10.3); Creatinine Clr Calc Pharmacy 108.7 ml/min; Est GFR (Non-African American) 94.9 ml/min; Potassium 3.8 mmol/L (3.5-5.1)
[2023-10-26] MEDS: SILDENAFIL CITRATE 20 MG TABLET PO SCH (07:51)
[2023-10-26] MEDS: DIGOXIN 0.125 MG TAB PO SCH (07:56)
[2023-10-26] MEDS: CALCIUM CARBONATE 500 MG CHEWABLE TAB PO ONE (08:08)
[2023-10-26] MEDS: ESCITALOPRAM OXALATE 10 MG TAB PO SCH (08:09)
[2023-10-26] MEDS: ROSUVASTATIN CALCIUM 5 MG TAB PO SCH (08:10)
[2023-10-26] MEDS: CHOLECALCIFEROL 10 MCG (400 UNITS) TAB PO SCH (08:11)
[2023-10-26] MEDS: UMECLIDINIUM BROMIDE 62.5MCG/BLISTER 7 PUFFS/INHALER INH SCH (08:11)
--- NOTE | 2023-10-26 08:38 | Electrocardiogram Report ---
Test Reason : Blood Pressure : / mmHG Vent. Rate : 067 BPM Atrial Rate : 267 BPM P-R Int : 000 ms QRS Dur : 086 ms QT Int : 410 ms P-R-T Axes : 000 104 149 degrees QTc Int : 433 ms Atrial fibrillation with premature ventricular or aberrantly conducted complexes Rightward axis Diffuse Nonspecific T wave abnormality Old Septal infarct Abnormal ECG When compared with ECG of 25-OCT-2023 05:37, HR has decreased by 15 bpm Otherwise no significant change Confirmed by Logan Staley ([id number]) on 10/26/2023 8:38:12 AM Referred By: REFERRED SELF Confirmed By:Logan Staley
[2023-10-26 08:57] LABS: Troponin I High Sensitivity 285.3 pg/ml (0-20)
--- NOTE | 2023-10-26 11:44 | Cardiology Progress Note ---
Date of Service October 26, 2023 Assessment & Plan (1) Atrial fibrillation with rapid ventricular response: Plan: Patient with persistent atrial fibrillation at baseline, not new onset (2) Elevated troponin: (3) Chronic combined systolic and diastolic CHF (congestive heart failure): (4) Medical non-compliance: Plan 10/25/23 Patient admitted for ongoing weakness, atypical chest pain, and findings of afib RVR. Multiple recent admissions for CHF, afib RVR, and gangrenous toe s/p amputation. Patient has a long history of medication non compliance. On admission elevated ventricular rates with persistent afib. Digoxin level was undetectable Oral home dose metoprolol 125 mg BID resumed. Resume digoxin 125 mcg. Wean off IV diltiazem gtt. HS troponin elevated, likely due to afib RVR. Echo repeated this morning with preserved EF, no wall motion abnormalities. Recommend resuming all home/oral cardiac medications including ASA, statin, Eliquis, Entresto, metoprolol, digoxin. Sildenafil was placed on hold due to CP and elevated troponin in case SL nitro needs to be used. PT/OT recommended. 10/26/23: Patient resting in bed comfortably. Afib with controlled rates this morning. IV Diltiazem now off. Monitor rates since stopping diltiazem Continue digoxin 125 mcg Continue metoprolol succinate 125 mg BID Ongoing LE edema noted. Continue furosemide 40 mg BID Weight down. Good urine output No CHF symptoms. Continue all other oral/home cardiac medications including ASA, statin, Eliquis, entresto, metoprolol, digoxin. No further cardiac testing warranted at this time. PT/OT. Patient likely needs SNF/rehab on discharge Case discussed with Dr. Alejandro Jarrett spent a total of 30 minutes on the date of service in preparation, delivery, and documentation of the care provided to this patient, excluding any time spent in the performance of separately billed services. Valentina Ceron PA-C Department of Cardiology, [facility] This chart was completed in part utilizing Speech Voice Recognition Software. Grammatical errors, random word insertions, pronoun errors, and incomplete sentences are an occasional consequence of this system due to software limitations, ambient noise, and hardware issues. Any formal questions or concerns about the content, text, or information contained within the body of this dictation should be directly addressed to the provider for clarification. Admission and Anticipated Discharge Date Admission Date: October 24, 2023 Supervising Physician Co-Signing Physician Notes Patient was seen and examined, chart, medications, telemetry reviewed. Full assessment and plan as well outlined above. Care and management reviewed with advanced provider personally endorsed Chronically ill 58-year-old male with persistent atrial fibrillation presenting with acute illness and elevated atrial fibrillation ventricular response rates possibly due to lapse in medical therapy by review of laboratory test Patient has responded to resumption of usual medications. IV diltiazem discontinued with heart rates 80s to 90s May require upward titration of metoprolol succinate I's and O's close currently negative and may require additional diuretic. Appears furosemide has been resumed Note hospitalization and past required stress dose steroids for adrenal insufficiency symptoms and hypotension Will need to follow close I spent a total of 20 minutes on the date of service in preparation, delivery, and documentation of the care provided to this patient, excluding any time spent in the performance of separately billed services. This chart was completed in part utilizing Speech Voice Recognition Software. Grammatical errors, random word insertions, pronoun errors, and incomplete sentences are an occasional consequence of this system due to software limitations, ambient noise, and hardware issues. Any formal questions or concerns about the content, text, or information contained within the body of this dictation should be directly addressed to the provider for clarification. Subjective Patient resting in bed. Ongoing weakness reported. Diltiazem turned off this morning. He denies chest pain or SOB. Nurse reports patient reported mild chest tightness through the night but resolved with TUMS. LE edema noted. No dizziness. Review of Systems Review of Systems: All systems reviewed & are unremarkable except as noted in HPI & below Physical Exam Constitutional: WD/WN, vitals as above well developed; no acute distress Neck: trachea midline, no thyromegaly Respiratory: normal respiratory effort Auscultation: lungs clear to auscultation bilaterally Cardiovascular: Rate/Rhythm: + irregularly irregular Heart Sounds: + murmur (II/ systolic murmur) Vessels: no JVD Extremities: + edema (1+ pretibial edema b/l) Gastrointestinal (Abdomen): normal bowel sounds, soft, nontender, no hepatosplenomegaly Neurologic: PERRL, EOMI, accommodation nl, no face palsy, no dysarthria Psychiatric: A+Ox3, euthymic affect Results & Data Vital Signs (Past 12 Hours) Vital Signs Temp Pulse Pulse Resp BP Pulse Ox O2 Del Method 10/26/23 11:27 36.8 C 95 H 18 109/69 95 Room Air 10/26/23 10:08 66 10/26/23 08:10 65 10/26/23 07:40 36.7 C 64 20 115/63 94 Room Air 10/26/23 02:40 36.5 C 70 18 100/60 95 Room Air Laboratory Results Cardiac Enzymes 10/26/23 10/26/23 Range/Units 06:38 09:13 Troponin I High Sens 285.3 H* D 254.1 H* (0-20) pg/ml CBC 10/26/23 Range/Units 06:38 WBC 10.58 (4.8-10.8) K/ul RBC 3.94 L (4.70-6.10) M/uL Hgb 9.6 L (14.0-18.0) g/dl Hct 31.3 L (42.0-52.0) % Plt Count 417 H (130-400) K/uL Neut # (Auto) 8.86 H (1.40-6.50) K/uL Lymph # (Auto) 0.82 L (1.20-3.40) K/uL [place] # (Auto) 0.20 (0.11-0.59) K/uL Eos # (Auto) 0.55 H (0.00-0.50) K/uL Baso # (Auto) 0.02 (0.00-0.20) K/uL Comprehensive Metabolic Panel 10/26/23 Range/Units 06:38 Sodium 130 L (136-145) mmol/L Potassium 3.8 (3.5-5.1) mmol/L Chloride 98 (98-107) mmol/L Carbon Dioxide 26 (21-32) mmol/L BUN 26 H (6-23) mg/dl Creatinine 0.86 (0.6-1.4) mg/dl Glucose 107 H (70-99(Fasting)) mg/dl Calcium 8.3 L (8.6-10.3) mg/dl Intake and Output 10/25/23 10/26/23 10/26/23 22:59 06:59 14:59 Intake Total 200 / 1725.333 222.333 / 1725.333 57.000 / 57.000 Output Total 275 / 1225 550 / 1225 Balance -75 / 500.333 -327.667 / 500.333 57.000 / 57.000 Intake: IV 122.333 / 240.333 57.000 / 57.000 dilTIAZem HCL 125 mg In 122.333 / 240.333 57.000 / 57.000 Dextrose 5% 100 ml @ 10 MG/HR 10 mls/hr IV .[id number] [facility] Rx#: [id number] Oral 200 / 1485 100 / 1485 Output: Urine 275 / 1225 550 / 1225 Other: Weight 98.2 kg Diagnostic Findings Telemetry: Afib with controlled rates Medications Administered Current Inpatient Medications Acetaminophen (Acetaminophen 500 Mg Tab) 500 mg PO Q6H PRN PRN Reason: fever/pain Stop: 11/23/23 22:58 Last Admin: 10/24/23 23:06 Dose: 500 mg Hydrocodone Bitart/Acetaminophen (Hydrocodone/Acetaminophen 10/325 Tab) 1 tab PO Q6H PRN PRN Reason: Pain Stop: 11/08/23 10:32 Alendronate Sodium (Alendronate Sodium 70 Mg Tab) 70 mg PO We@0700 [facility] Stop: 11/30/23 06:59 Apixaban (Apixaban 5 Mg Tablet) 5 mg PO BID [facility] Stop: 11/24/23 10:44 Last Admin: 10/26/23 08:10 Dose: 5 mg Aspirin (Aspirin 81 Mg Ectab) 81 mg PO QAM [facility] Stop: 11/24/23 10:44 Last Admin: 10/26/23 08:11 Dose: 81 mg Digoxin (Digoxin 0.125 Mg Tab) 0.125 mg PO QAM [facility] Stop: 11/24/23 11:59 Last Admin: 10/26/23 08:10 Dose: 0.125 mg Duloxetine HCl (Duloxetine Hcl 30 Mg Cap) 30 mg PO QAM [facility] Stop: 11/24/23 10:44 Last Admin: 10/26/23 08:11 Dose: 30 mg Escitalopram Oxalate (Escitalopram Oxalate 10 Mg Tab) 10 mg PO QAM [facility] Stop: 11/25/23 08:59 Last Admin: 10/26/23 08:09 Dose: 10 mg Furosemide (Furosemide 40 Mg Tab) 40 mg PO BID [facility] Stop: 11/24/23 10:44 Last Admin: 10/26/23 08:09 Dose: 40 mg Magnesium Oxide (Magnesium Oxide 400 Mg Tab) 400 mg PO BID [facility] Stop: 11/24/23 10:44 Last Admin: 10/26/23 08:11 Dose: 400 mg Metoprolol Succinate (Metoprolol Succ 50mg Ext Rel Tab) 125 mg PO BID [facility] Stop: 11/24/23 10:59 Last Admin: 10/26/23 08:09 Dose: 125 mg Miscellaneous (Sarilumab [Monroezara] ~ Order Awaiting Action) 1 each N/A QS [facility] Stop: 11/24/23 15:59 Last Admin: 10/26/23 08:09 Dose: Not Given Nitroglycerin (Nitroglycerin Sl 0.4 Mg/Tab Tab) 0.4 mg SL UD PRN PRN Reason: Chest Pain Stop: 11/24/23 10:32 Oxycodone HCl (Oxycodone Hcl Ir 5 Mg Tab (Immediate Release)) 5 - 10 mg PO QID PRN PRN Reason: Pain Stop: 11/07/23 22:57 Last Admin: 10/25/23 11:32 Dose: 5 mg Pantoprazole Sodium (Pantoprazole 40 Mg Tab) [facility] Stop: 11/25/23 06:29 Last Admin: 10/26/23 05:48 Dose: 40 mg Prednisone (Prednisone 5 Mg Tab) 5 mg PO DAILY [facility] Stop: 11/24/23 10:44 Last Admin: 10/26/23 08:11 Dose: 5 mg Rosuvastatin Calcium (Rosuvastatin Calcium 5 Mg Tab) 5 mg PO QAM [facility] Stop: 11/25/23 08:59 Last Admin: 10/26/23 08:10 Dose: 5 mg Sacubitril/Valsartan (Valsartan/Sacubitril 26/24mg Tab) 1 tab PO BID [facility] Stop: 11/24/23 10:44 Last Admin: 10/26/23 08:11 Dose: 1 tab Sildenafil Citrate (Sildenafil Citrate 20 Mg Tablet) 20 mg PO BID [facility] Stop: 11/24/23 10:44 Last Admin: 10/26/23 07:51 Dose: Not Given Sildenafil Citrate (Sildenafil Citrate 20 Mg Tablet) 40 mg PO HS [facility] Stop: 11/24/23 20:59 Spironolactone (Spironolactone 25 Mg Tab) 25 mg PO QAM [facility] Stop: 11/24/23 10:44 Last Admin: 10/26/23 08:09 Dose: 25 mg Sulfasalazine (Sulfasalazine 500 Mg Tablet) 500 mg PO QAM [facility] Stop: 11/24/23 10:44 Last Admin: 10/26/23 08:09 Dose: 500 mg Umeclidinium Roberta (Umeclidinium Roberta 62.5mcg/Blister 7 Puffs/Inhaler) 1 puffs INH QAM [facility] Stop: 11/25/23 08:59 Last Admin: 10/26/23 08:11 Dose: 1 puffs Vitamin D (Cholecalciferol 10 Mcg (400 Units) Tab) 10 mcg PO DAILY [facility] Stop: 11/25/23 08:59 Last Admin: 10/26/23 08:11 Dose: 10 mcg
--- NOTE | 2023-10-26 16:22 | Hospitalist Progress Note ---
Date of Service October 26, 2023 Assessment & Plan (1) Medical non-compliance: Plan 58-year-old male with PMH of COPD, lung nodule, PAD, chronic systolic CHF, SVT, small vessel disease, frequent PVCs, persistent A-fib on Eliquis, GERD, degenerative disease, scoliosis, osteoporosis, rheumatoid arthritis involving multiple sites with positive rheumatoid factor, immunodeficiency due to drugs, recurrent depression, erectile dysfunction, tobacco use disorder, hepatitis C virus infection cured after antiviral drug therapy, long-term systemic steroid user, medication noncompliance presented to the hospital With chest pain and right shoulder pain, was found to be in A-fib RVR. He is being managed for the following: Atrial fibrillation with rapid ventricular response: Chronic combined systolic and diastolic CHF (congestive heart failure): HTN (hypertension); PAD (peripheral artery disease); CAD (coronary artery disease): Admitting labs, no signs of infection, respiratory viral panel negative. Had bout of Vtach with 14 beat run in the ER echo July 2023 - EF of 50 to 55%, mild LVH, trace MR, TR, no pulmonary hypertension noted Echo this admission EF of 50 to 55%, moderate dilatation of left atrium. Status post Cardizem drip, heart rate controlled, still in A-fib. Cardiology on board, continue digoxin 125 mcg, metoprolol succinate 125 mg twice daily, Eliquis. Continue telemetry monitoring, continue home cardiac medications. Monitor replete electrolytes. Other chronic medical conditions: Continue with/resume home meds as and when able Hepatitis C: Status posttreatment COPD: Not in exacerbation, continue home inhalers. Rheumatoid arthritis: Continue prednisone 5 mg daily, chronic steroid use. DVT prophylaxis: Patient on Eliquis CODE STATUS: Full code Disposition: PT/OT, likely needs rehab. Admission and Anticipated Discharge Date Admission Date: October 24, 2023 Subjective Patient was seen and examined at bedside. Patient was lying in bed, on room air, NAD, resting comfortably. Patient reports having chest general discomfort continuously since midnight, relieved with Tums. Patient denies any chest palpitation or funny sensation, denies headache or dizziness or shortness of breath. Patient reports eating okay and moving bowels okay. Patient reports feeling weak. Physical Exam Physical Exam: General- oriented x 3, not in distress, speaks in sentences with no effort or accessory muscle use Eyes- anicteric Neck- no JVD Lungs- clear breath sounds bilaterally, no rales/wheezes Heart- normal rate, irregularly irregular rhythm; no murmurs Abdomen- normal bowel sounds, nondistended, soft, nontender Extremities- no pretibial edema, no calf tenderness r toe amputation site- no signs of infection Neuro- alert, oriented x 3; no gross focal neurologic deficits Skin- warm & dry Results & Data Results & Data Vital Signs (Past 12 Hours) Vital Signs Temp Pulse Pulse Resp BP Pulse Ox O2 Del Method 10/26/23 15:48 37.1 C 85 20 95/59 L 95 Room Air 10/26/23 11:27 36.8 C 95 H 18 109/69 95 Room Air 10/26/23 10:08 66 10/26/23 08:10 65 10/26/23 07:40 36.7 C 64 20 115/63 94 Room Air
[2023-10-26 17:01] LABS: A calco-baum cmplx NotReported Not Detected (NotDetected); Bact fragilis Not Reported Not Detected (NotDetected); Blood Culture Id Panel PCR Panel Negative (NotDetected); C auris Not Reported Not Detected (NotDetected); Calbicans Not Reported Not Detected (NotDetected); Candida glabrata Not Reported Not Detected (NotDetected); Candida krusei Not Reported Not Detected (NotDetected); Cneoformans/gatti Not Reported Not Detected (NotDetected); Cparapsilosis Not Reported Not Detected (NotDetected); E cloacae compx Not Reported Not Detected (NotDetected); Efaecalis Not Reported Not Detected (NotDetected); Efaecium Not Reported Not Detected (NotDetected); Enterobacterales Not Reported Not Detected (NotDetected); Escherichia coli Not Reported Not Detected (NotDetected); H influenzae Not Reported Not Detected (NotDetected); K aerogenes Not Reported Not Detected (NotDetected); Koxytoca Not Reported Not Detected (NotDetected); Kpneumoniae grp Not Reported Not Detected (NotDetected); Lmonocyt Not Reported Not Detected (NotDetected); N meningitidis Not Reported Not Detected (NotDetected); P aeruginosa Not Reported Not Detected (NotDetected); Proteus spp Not Reported Not Detected (NotDetected); Salmonella spp Not Reported Not Detected (NotDetected); Smarcescens Not Reported Not Detected (NotDetected); Staph lugdunensis Not Reported Not Detected (NotDetected); Staph spp. Not Reported Not Detected (NotDetected); Staphaureus Not Reported Not Detected (NotDetected); Staphepi Not Reported Not Detected (NotDetected); Stenmaltophilia Not Reported Not Detected (NotDetected); Strep agal(GrpB) Not Reported Not Detected (NotDetected); Strep pneum Not Reported Not Detected (NotDetected); Strep pyog (GrpA) Not Reported Not Detected (NotDetected); Strep spp Not Reported Not Detected (NotDetected)
[2023-10-26] MEDS: cefTRIAXone SODIUM 2,000 MG/50 ML BAG IV SCH (19:11)
[2023-10-26] MEDS: ADVANCED PROBIOTIC 625 MG CAPSULE PO SCH (19:11)
[2023-10-27] MEDS: PNEUMOCOCCAL VACCINE (PCV20) 20-VAL CONJ-DIP CRM/PF 0.5 ML SYR IM ONE (07:30)
[2023-10-27 07:38] LABS: Hematocrit (blood only) 33.6 % (42.0-52.0); Hemoglobin 10.4 g/dl (14.0-18.0); Mean Corpuscular Hemoglobin 24.4 pg (25.0-34.0); Mean Corpuscular Volume 78.7 fL (80.0-100.0); Mean Platelet Volume 9.3 fL (9.4-12.4); Platelet Count 468 K/uL (130-400); RDW Coefficient of Variation 18.9 % (11.5-14.5); RDW Standard Deviation 53.7 fL (36.4-46.3); Red Blood Count 4.27 M/uL (4.70-6.10); White Blood Count 9.54 K/ul (4.8-10.8)
[2023-10-27 08:54] LABS: Calcium 8.6 mg/dl (8.6-10.3); Potassium 3.8 mmol/L (3.5-5.1)
[2023-10-27 08:59] LABS: BUN Creatinine Ratio 30.3 (10-20); Creatinine Clr Calc Pharmacy 142.2 ml/min; Est GFR (African American) 122.7 ml/min; Est GFR (Non-African American) 105.8 ml/min
[2023-10-27 09:19] LABS: Magnesium 1.7 mg/dl (1.7-2.4)
[2023-10-27 09:20] LABS: Phosphorus 2.6 mg/dl (2.5-4.9)
--- NOTE | 2023-10-27 17:09 | Hospitalist Progress Note ---
Date of Service October 27, 2023 Assessment & Plan (1) Medical non-compliance: Plan 58-year-old male with PMH of COPD, lung nodule, PAD, chronic systolic CHF, SVT, small vessel disease, frequent PVCs, persistent A-fib on Eliquis, GERD, degenerative disease, scoliosis, osteoporosis, rheumatoid arthritis involving multiple sites with positive rheumatoid factor, immunodeficiency due to drugs, recurrent depression, erectile dysfunction, tobacco use disorder, hepatitis C virus infection cured after antiviral drug therapy, long-term systemic steroid user, medication noncompliance presented to the hospital With chest pain and right shoulder pain, was found to be in A-fib RVR. He is being managed for the following: Atrial fibrillation with rapid ventricular response: Chronic combined systolic and diastolic CHF (congestive heart failure): HTN (hypertension); PAD (peripheral artery disease); CAD (coronary artery disease): Admitting labs, no signs of infection, respiratory viral panel negative. Had bout of Vtach with 14 beat run in the ER echo July 2023 - EF of 50 to 55%, mild LVH, trace MR, TR, no pulmonary hypertension noted Echo this admission EF of 50 to 55%, moderate dilatation of left atrium. Status post Cardizem drip, heart rate controlled, still in A-fib. Cardiology on board, continue digoxin 125 mcg, metoprolol succinate 125 mg twice daily, Eliquis. Continue telemetry monitoring, continue home cardiac medications. Monitor replete electrolytes. Bacteremia: 10/23 Bl Cx came back +ve, 05/31. likely contaminant. f/u final c/s. repeat bl cx 10/25, c/w rocephin 10/25. patient has been made aware. Other chronic medical conditions: Continue with/resume home meds as and when able Hepatitis C: Status posttreatment COPD: Not in exacerbation, continue home inhalers. Rheumatoid arthritis: Continue prednisone 5 mg daily, chronic steroid use. DVT prophylaxis: Patient on Eliquis CODE STATUS: Full code Disposition: PT/OT, likely needs rehab. Admission and Anticipated Discharge Date Admission Date: October 24, 2023 Subjective Patient was seen and examined at bedside. Patient was lying in bed, on room air, NAD, resting comfortably. Patient denies any chest palpitation or funny sensation, denies headache or dizziness or shortness of breath. Patient reports eating okay and moving bowels okay. Patient reports feeling weak and tired, has not found improvement in this regard. Physical Exam Physical Exam: General- oriented x 3, not in distress, speaks in sentences with no effort or accessory muscle use Eyes- anicteric Neck- no JVD Lungs- clear breath sounds bilaterally, no rales/wheezes Heart- normal rate, irregularly irregular rhythm; no murmurs Abdomen- normal bowel sounds, nondistended, soft, nontender Extremities- no pretibial edema, no calf tenderness r toe amputation site- no signs of infection Neuro- alert, oriented x 3; no gross focal neurologic deficits Skin- warm & dry Results & Data Results & Data Vital Signs (Past 12 Hours) Vital Signs Temp Pulse Pulse Resp BP Pulse Ox O2 Del Method 10/27/23 15:57 91 H 10/27/23 15:50 36.7 C 80 19 111/62 93 Room Air 10/27/23 11:54 37.0 C 89 18 116/75 94 Room Air 10/27/23 08:33 88 10/27/23 08:33 Room Air 10/27/23 08:27 98 H 10/27/23 07:28 36.8 C 98 H 18 105/70 96 Room Air
[2023-10-27] MEDS: MAGNESIUM SULFATE / D5W 1 GM/100 ML BAG IV SCH (17:44)
[2023-10-28 06:56] LABS: Hematocrit (blood only) 33.4 % (42.0-52.0); Hemoglobin 10.6 g/dl (14.0-18.0); Mean Corpuscular Hemoglobin 25.1 pg (25.0-34.0); Mean Corpuscular Hgb Conc 31.7 g/dL (32.0-36.0); Mean Platelet Volume 9.6 fL (9.4-12.4); Platelet Count 450 K/uL (130-400); RDW Coefficient of Variation 18.6 % (11.5-14.5); RDW Standard Deviation 53.1 fL (36.4-46.3); Red Blood Count 4.23 M/uL (4.70-6.10); White Blood Count 9.34 K/ul (4.8-10.8)
[2023-10-28 07:37] LABS: BUN Creatinine Ratio 31.8 (10-20); Calcium 8.6 mg/dl (8.6-10.3); Est GFR (African American) 122.7 ml/min; Est GFR (Non-African American) 105.8 ml/min; Magnesium 1.9 mg/dl (1.7-2.4); Phosphorus 2.9 mg/dl (2.5-4.9); Potassium 3.8 mmol/L (3.5-5.1)
[2023-10-28 09:47] LABS: A calco-baum cmplx NotReported Not Detected (NotDetected); Bact fragilis Not Reported Not Detected (NotDetected); Blood Culture Id Panel See PCR Comment (NotDetected); C auris Not Reported Not Detected (NotDetected); Calbicans Not Reported Not Detected (NotDetected); Candida glabrata Not Reported Not Detected (NotDetected); Candida krusei Not Reported Not Detected (NotDetected); Cneoformans/gatti Not Reported Not Detected (NotDetected); Cparapsilosis Not Reported Not Detected (NotDetected); E cloacae compx Not Reported Not Detected (NotDetected); Efaecalis Not Reported Not Detected (NotDetected); Efaecium Not Reported Not Detected (NotDetected); Enterobacterales Not Reported Not Detected (NotDetected); Escherichia coli Not Reported Not Detected (NotDetected); H influenzae Not Reported Not Detected (NotDetected); K aerogenes Not Reported Not Detected (NotDetected); Koxytoca Not Reported Not Detected (NotDetected); Kpneumoniae grp Not Reported Not Detected (NotDetected); Lmonocyt Not Reported Not Detected (NotDetected); N meningitidis Not Reported Not Detected (NotDetected); P aeruginosa Not Reported Not Detected (NotDetected); Proteus spp Not Reported Not Detected (NotDetected); Salmonella spp Not Reported Not Detected (NotDetected); Smarcescens Not Reported Not Detected (NotDetected); Staph lugdunensis Not Reported Not Detected (NotDetected); Staph spp. Not Reported DETECTED (NotDetected); Staphaureus Not Reported Not Detected (NotDetected); Staphepi Not Reported DETECTED (NotDetected); Staphylococcus spp. DETECTED (NotDetected); Stenmaltophilia Not Reported Not Detected (NotDetected); Strep agal(GrpB) Not Reported Not Detected (NotDetected); Strep pneum Not Reported Not Detected (NotDetected); Strep pyog (GrpA) Not Reported Not Detected (NotDetected); Strep spp Not Reported Not Detected (NotDetected); mecAC Resistant Gene Not Detected (NotDetected)
[2023-10-28 10:01] LABS: Staphylococcus epidermidis DETECTED (NotDetected)
[2023-10-28] MEDS: HYDROcodone/ACETAMINOPHEN 10/325 TAB PO PRN (12:52)
--- NOTE | 2023-10-28 14:10 | Hospitalist Progress Note ---
Date of Service October 28, 2023 Assessment & Plan (1) Medical non-compliance: Plan 58-year-old male with PMH of COPD, lung nodule, PAD, chronic systolic CHF, SVT, small vessel disease, frequent PVCs, persistent A-fib on Eliquis, GERD, degenerative disease, scoliosis, osteoporosis, rheumatoid arthritis involving multiple sites with positive rheumatoid factor, immunodeficiency due to drugs, recurrent depression, erectile dysfunction, tobacco use disorder, hepatitis C virus infection cured after antiviral drug therapy, long-term systemic steroid user, medication noncompliance presented to the hospital With chest pain and right shoulder pain, was found to be in A-fib RVR. He is being managed for the following: Atrial fibrillation with rapid ventricular response: Chronic combined systolic and diastolic CHF (congestive heart failure): HTN (hypertension); PAD (peripheral artery disease); CAD (coronary artery disease): Admitting labs, no signs of infection, respiratory viral panel negative. Had bout of Vtach with 14 beat run in the ER echo July 2023 - EF of 50 to 55%, mild LVH, trace MR, TR, no pulmonary hypertension noted Echo this admission EF of 50 to 55%, moderate dilatation of left atrium. Status post Cardizem drip, heart rate controlled, still in A-fib. Cardiology evaled, continue digoxin 125 mcg, metoprolol succinate 125 mg twice daily, Eliquis. Continue telemetry monitoring, continue home cardiac medications. Monitor replete electrolytes. Bacteremia: 10/23 Bl Cx came back +ve, 1/. Repeat Bl Cx 10/25 also positive 1 of 4 bottles. f/u final c/s. C/w rocephin 10/25. patient has been made aware. Will send tick serology and acute hepatitis panel. Other chronic medical conditions: Continue with/resume home meds as and when able Hepatitis C: Status posttreatment COPD: Not in exacerbation, continue home inhalers. Rheumatoid arthritis: Continue prednisone 5 mg daily, chronic steroid use. DVT prophylaxis: Patient on Eliquis CODE STATUS: Full code Disposition: PT/OT, likely needs rehab. Admission and Anticipated Discharge Date Admission Date: October 24, 2023 Subjective Patient was seen and examined at bedside. Patient was lying in bed, on room air, NAD, resting comfortably. Patient denies any chest palpitation or funny sensation, denies headache or dizziness or shortness of breath. Patient reports eating okay and moving bowels okay. Patient reports continued feeling weak and tired, has not found improvement in this regard. Per RN, pt doesn't like OOB, doesn't move around even encouraged, gives generalized complaints. power BUE and BLE equal and symmetrical on exam. No joint pain noted on exam. Physical Exam Physical Exam: General- oriented x 3, not in distress, speaks in sentences with no effort or accessory muscle use Eyes- anicteric Neck- no JVD Lungs- clear breath sounds bilaterally, no rales/wheezes Heart- normal rate, irregularly irregular rhythm; no murmurs Abdomen- normal bowel sounds, nondistended, soft, nontender Extremities- no pretibial edema, no calf tenderness r toe amputation site- no signs of infection Neuro- alert, oriented x 3; no gross focal neurologic deficits Skin- warm & dry Results & Data Results & Data Vital Signs (Past 12 Hours) Vital Signs Temp Pulse Pulse Resp BP BP Pulse Ox 10/28/23 12:55 105/67 10/28/23 10:47 36.5 C 98 H 20 97/67 L 100 10/28/23 09:05 10/28/23 08:46 101 H 10/28/23 07:51 36.5 C 101 H 22 123/79 95 10/28/23 07:09 106 H 10/28/23 03:19 36.8 C 106 H 22 121/72 92 O2 Del Method 10/28/23 12:55 10/28/23 10:47 Room Air 10/28/23 09:05 Room Air 10/28/23 08:46 10/28/23 07:51 Room Air 10/28/23 07:09 10/28/23 03:19 Room Air
[2023-10-29 07:52] LABS: Hemoglobin 10.3 g/dl (14.0-18.0); Mean Corpuscular Hemoglobin 24.5 pg (25.0-34.0); Mean Corpuscular Hgb Conc 31.2 g/dL (32.0-36.0); Mean Corpuscular Volume 78.6 fL (80.0-100.0); Mean Platelet Volume 9.6 fL (9.4-12.4); Platelet Count 481 K/uL (130-400); RDW Coefficient of Variation 18.7 % (11.5-14.5); RDW Standard Deviation 53.4 fL (36.4-46.3); White Blood Count 8.37 K/ul (4.8-10.8)
[2023-10-29 07:55] LABS: BUN Creatinine Ratio 36.6 (10-20); Calcium 8.6 mg/dl (8.6-10.3); Creatinine Clr Calc Pharmacy 132.8 ml/min; Est GFR (Non-African American) 102.7 ml/min; Potassium 4.3 mmol/L (3.5-5.1)
--- NOTE | 2023-10-29 11:48 | Hospitalist Progress Note ---
Date of Service October 29, 2023 Assessment & Plan (1) Medical non-compliance: Plan 58-year-old male with PMH of COPD, lung nodule, PAD, chronic systolic CHF, SVT, small vessel disease, frequent PVCs, persistent A-fib on Eliquis, GERD, degenerative disease, scoliosis, osteoporosis, rheumatoid arthritis involving multiple sites with positive rheumatoid factor, immunodeficiency due to drugs, recurrent depression, erectile dysfunction, tobacco use disorder, hepatitis C virus infection cured after antiviral drug therapy, long-term systemic steroid user, medication noncompliance presented to the hospital With chest pain and right shoulder pain, was found to be in A-fib RVR. He is being managed for the following: Atrial fibrillation with rapid ventricular response: Chronic combined systolic and diastolic CHF (congestive heart failure): HTN (hypertension); PAD (peripheral artery disease); CAD (coronary artery disease): Admitting labs, no signs of infection, respiratory viral panel negative. Had bout of Vtach with 14 beat run in the ER echo July 2023 - EF of 50 to 55%, mild LVH, trace MR, TR, no pulmonary hypertension noted Echo this admission EF of 50 to 55%, moderate dilatation of left atrium. Status post Cardizem drip, heart rate controlled, still in A-fib. Cardiology evaled, continue digoxin 125 mcg, metoprolol succinate 125 mg twice daily, Eliquis. Continue telemetry monitoring, continue home cardiac medications. Monitor replete electrolytes. Bacteremia: 10/23 Bl Cx came back +ve, 1/. Repeat Bl Cx 10/25 also positive 1 of 4 bottles. f/u final c/s. C/w rocephin 10/25. patient has been made aware. Will send tick serology and acute hepatitis panel. ID to see patient today for formal recs Other chronic medical conditions: Continue with/resume home meds as and when able Hepatitis C: Status posttreatment COPD: Not in exacerbation, continue home inhalers. Rheumatoid arthritis: Continue prednisone 5 mg daily, chronic steroid use. DVT prophylaxis: Patient on Eliquis CODE STATUS: Full code Disposition: PT/OT, likely needs rehab. Await ID recs prior to rehab, ID to see patient today A total of 45 minutes was spent coordinating, documenting, and providing care for this patient excluding time spent in the performance of separately billed services. This included personally viewing all current laboratories and imaging studies, medication reconciliation, outpatient chart review, and discussion with specialists. Admission and Anticipated Discharge Date Admission Date: October 24, 2023 Subjective Follow-up for atrial fibrillation with RVR. Currently he is lying in bed without acute complaint. He does feel significantly weak even moving in the bed is difficult. He denies any chest pain, shortness of breath, nausea, vomiting, abdominal pain. He states his bowels are moving. Discussed with telemetry staff and has been maintaining in atrial fibrillation with rates in the 90s to 113. Review of Systems Review of Systems: All systems reviewed & are unremarkable except as noted in HPI & below Physical Exam Physical Exam: Gen: WD/WN, obese, M, lack of bed mobility, slowed, NAD, A&O x3 HEENT: Normocephalic, atraumatic, conjunctivae moist, sclerae anicteric, mucous membranes moist. Lung: Clear to Auscultation bilaterally, no wheezes/rales/rhonchi Heart: IRR/IRR no murmurs, rubs, or gallops Abdomen: Soft, NT, ND +BS x 4 Extremities: No edema, R great toe with amp incision healing well, no erythema Skin: Warm, no rash, negative turgor. Results & Data Results & Data Vital Signs (Past 12 Hours) Vital Signs Temp Pulse Resp BP Pulse Ox O2 Del Method 10/29/23 11:00 36.6 C 108 H 20 98/62 L 98 Room Air 10/29/23 08:00 Room Air 10/29/23 07:56 101/68 10/29/23 07:42 37.0 C 84 18 94/63 L 98 Room Air 10/29/23 03:13 36.5 C 111 H 20 96/62 L 97 Room Air Laboratory Results Short CBC 10/29/23 Range/Units 07:15 WBC 8.37 (4.8-10.8) K/ul Hgb 10.3 L (14.0-18.0) g/dl Hct 33.0 L (42.0-52.0) % Plt Count 481 H (130-400) K/uL BMP 10/29/23 07:15 Sodium 133 L Potassium 4.3 Chloride 99 Carbon Dioxide 29 BUN 26 H Creatinine 0.71 Glucose 107 H Calcium 8.6 Medications Administered Current Inpatient Medications Acetaminophen (Acetaminophen 500 Mg Tab) 500 mg PO Q6H PRN PRN Reason: fever/pain Stop: 11/23/23 22:58 Last Admin: 10/24/23 23:06 Dose: 500 mg Hydrocodone Bitart/Acetaminophen (Hydrocodone/Acetaminophen 10/325 Tab) 1 tab PO Q6H PRN PRN Reason: Pain Stop: 11/08/23 10:32 Last Admin: 10/28/23 12:52 Dose: 1 tab Alendronate Sodium (Alendronate Sodium 70 Mg Tab) 70 mg PO We@0700 MAIRA Stop: 11/30/23 06:59 Apixaban (Apixaban 5 Mg Tablet) 5 mg PO BID MAIRA Stop: 11/24/23 10:44 Last Admin: 10/29/23 07:51 Dose: 5 mg Aspirin (Aspirin 81 Mg Ectab) 81 mg PO QAM MAIRA Stop: 11/24/23 10:44 Last Admin: 10/29/23 07:52 Dose: 81 mg Digoxin (Digoxin 0.125 Mg Tab) 0.125 mg PO QAM MAIRA Stop: 11/24/23 11:59 Last Admin: 10/29/23 07:55 Dose: 0.125 mg Duloxetine HCl (Duloxetine Hcl 30 Mg Cap) 30 mg PO QAM MAIRA Stop: 11/24/23 10:44 Last Admin: 10/29/23 07:52 Dose: 30 mg Escitalopram Oxalate (Escitalopram Oxalate 10 Mg Tab) 10 mg PO QAM MAIRA Stop: 11/25/23 08:59 Last Admin: 10/29/23 07:52 Dose: 10 mg Furosemide (Furosemide 40 Mg Tab) 40 mg PO BID MAIRA Stop: 11/24/23 10:44 Last Admin: 10/29/23 07:51 Dose: 40 mg Ceftriaxone Sodium (Rocephin) 2,000 mg in 50 mls @ 100 mls/hr IV Q24H MAIRA Stop: 11/09/23 17:59 Last Infusion: 10/28/23 18:04 Dose: Infused Lactobacillus Acidophilus (Advanced Probiotic 625 Mg Capsule) 1,250 mg PO DAILY MAIRA Stop: 11/25/23 17:59 Last Admin: 10/29/23 07:51 Dose: 1,250 mg Magnesium Oxide (Magnesium Oxide 400 Mg Tab) 400 mg PO BID MAIRA Stop: 11/24/23 10:44 Last Admin: 10/29/23 07:51 Dose: 400 mg Metoprolol Succinate (Metoprolol Succ 50mg Ext Rel Tab) 125 mg PO BID [facility] Stop: 11/24/23 10:59 Last Admin: 10/29/23 07:55 Dose: 125 mg Miscellaneous (Sarilumab [Monroezara] ~ Order Awaiting Action) 1 each N/A QS [facility] Stop: 11/24/23 15:59 Last Admin: 10/29/23 09:05 Dose: Not Given Nitroglycerin (Nitroglycerin Sl 0.4 Mg/Tab Tab) 0.4 mg SL UD PRN PRN Reason: Chest Pain Stop: 11/24/23 10:32 Oxycodone HCl (Oxycodone Hcl Ir 5 Mg Tab (Immediate Release)) 5 - 10 mg PO QID PRN PRN Reason: Pain Stop: 11/07/23 22:57 Last Admin: 10/29/23 05:50 Dose: 10 mg Pantoprazole Sodium (Pantoprazole 40 Mg Tab) 40 mg [place] [place]; Protocol Stop: 11/25/23 06:29 Last Admin: 10/29/23 05:50 Dose: 40 mg Prednisone (Prednisone 5 Mg Tab) 5 mg PO DAILY [facility] Stop: 11/24/23 10:44 Last Admin: 10/29/23 07:51 Dose: 5 mg Rosuvastatin Calcium (Rosuvastatin Calcium 5 Mg Tab) 5 mg PO QAM [facility] Stop: 11/25/23 08:59 Last Admin: 10/29/23 07:52 Dose: 5 mg Sacubitril/Valsartan (Valsartan/Sacubitril 26/24mg Tab) 1 tab PO BID [facility] Stop: 11/24/23 10:44 Last Admin: 10/29/23 07:51 Dose: 1 tab Sildenafil Citrate (Sildenafil Citrate 20 Mg Tablet) 20 mg PO BID [facility] Stop: 11/24/23 10:44 Last Admin: 10/26/23 07:51 Dose: Not Given Sildenafil Citrate (Sildenafil Citrate 20 Mg Tablet) 40 mg PO HS [facility] Stop: 11/24/23 20:59 Spironolactone (Spironolactone 25 Mg Tab) 25 mg PO QAM [facility] Stop: 11/24/23 10:44 Last Admin: 10/29/23 07:50 Dose: 25 mg Sulfasalazine (Sulfasalazine 500 Mg Tablet) 500 mg PO QAM [facility] Stop: 11/24/23 10:44 Last Admin: 10/29/23 07:51 Dose: 500 mg Umeclidinium Watts (Umeclidinium Watts 62.5mcg/Blister 7 Puffs/Inhaler) 1 puffs INH QAM [facility] Stop: 11/25/23 08:59 Last Admin: 10/29/23 07:50 Dose: 1 puffs Vitamin D (Cholecalciferol 10 Mcg (400 Units) Tab) 10 mcg PO DAILY [facility] Stop: 11/25/23 08:59 Last Admin: 10/29/23 07:52 Dose: 10 mcg
--- NOTE | 2023-10-29 16:10 | Communication Note ---
Date of Service: October 29, 2023 Patients BP on the softer side today. He is asymptomatic although he does occ get lightheaded with movement. Per Nurse he does not want to get out of the bed. Given elevated BUN, no lower extremity edema will hold this evening lasix dose and re assess in a.m. as clinically pt may be a bit dry also hold aldactone will re assess in a.m. Weights up since admission if accurate 98.4kg and today 100.1kg with negative UOP of -920 Give IVF 250ml bolus x 1 now and additional 60ml IVF for additional 750 ml Received tiger text from nurse regarding significant other requesting update, Hayley. I attempted to call twice with no answer, left VM. Also alerted patient I tried to give update. Praveena Clark PA-C
--- NOTE | 2023-10-29 16:14 | Infectious Disease Consult ---
Date of Service October 29, 2023 Telehealth Information I performed this visit using a real-time telehealth connection between my location and the patients location ([facility]). After connecting through interactive tele-video, patient was identified by name and date of and/or wristband check.Patient (or authorized healthcare risk control field representative) was informed that this was a telemedicine visit and it was being conducted confidentially over secure lines. My office door was closed and no one else was present in the room with me.Patient (or authorized healthcare risk control field representative) provided consent to proceed with the visit, expressed an understanding of privacy and security of the telemedicine visit, and gave permission to have a hospital risk control field representative in the room in order to assist with the visit and to conduct portions of the visit, as needed. I informed the patient (or authorized healthcare risk control field representative) that I reviewed their record and presented the opportunity for them to ask any questions regarding the visit today. The patient agreed to participate. Assessment & Plan (1) Positive blood cultures: (2) Atrial fibrillation with rapid ventricular response: (3) History of osteomyelitis: Plan - I am not concerned about the coagulase-negative staph which grew from the blood culture on 10/25 as it has likely a contamination. I do not know the significance of the Gram-positive cocci in chains growing from 1 of 4 bottles of blood culture sent on admission. However, the fact that there is no potential source at this point and his right foot wound has been healing very well, its likely contamination as well. - Please continue on IV ceftriaxone for today. I will follow up on the blood cultures tomorrow and decide on the final antibiotic plan accordingly. - Thank you for consulting Infectious Disease. We will continue to follow. History of Present Illness History of Present Illness Mr. Morgan is a 58 yo old man with medical history of HTN, congestive heart failure, coronary artery disease, peripheral vascular disease, chronic hepatitis-C (treated), COPD, rheumatoid arthritis and atrial fibrillation who was admitted to [facility] on 10/23 because of atrial fibrillation with rapid ventricular response. He initially presented with chest pain and right shoulder pain as well as generalized weakness. Of note, he was recently discharged from [facility] in early August to a senior care facility after admission for a right big toe gangrene and he underwent amputation on 08/22/2023. On presentation, all of his vitals were within normal limits except for the heart rate which was 131. However, in the afternoon of the day of admission he spiked a fever of 38.1. Two sets of blood culture were sent and 1 of 4 bottles came back positive for Gram-positive cocci in chains. Another repeat blood culture sent on 10/25 grew coagulase-negative staph in 1 of 4 bottles as well (2 strains of coagulase-negative staph). Id team was consulted for further recommendations and to help guide antibiotic treatment. Allergies Allergy/AdvReac Type Severity Reaction Status Date / Time No Known Allergies Allergy Verified 10/24/23 16:32 Home Medications Medication Instructions Recorded Confirmed Type aspirin 81 mg tablet,delayed 81 mg PO QAM 04/04/21 10/24/23 History release (Bob Low Dose Aspirin) omeprazole 40 mg capsule,delayed 40 mg PO DAILYBB 04/04/21 10/24/23 History release nitroglycerin 0.4 mg sublingual 0.4 mg sublingual .PRN/UD PRN 08/27/21 10/24/23 History tablet Chest Pain rosuvastatin 5 mg tablet 5 mg PO QAM 08/27/21 10/24/23 History sildenafil (pulm.hypertension) 20 20 mg PO BID 08/27/21 10/24/23 History mg tablet sildenafil (pulm.hypertension) 20 40 mg PO HS 04/06/22 10/24/23 History mg tablet tiotropium bromide 2.5 2 inh inhalation QAM 04/06/22 10/24/23 History mcg/actuation mist for inhalation (Spiriva Respimat) alendronate 70 mg tablet 70 mg PO WK 07/05/22 10/24/23 History apixaban 5 mg tablet (Eliquis) 5 mg PO BID #60 tabs 07/10/22 10/24/23 Rx cholecalciferol (vitamin D3) 10 10 mcg PO DAILY 08/13/23 10/24/23 History mcg (400 unit) capsule (Vitamin D3) digoxin 125 mcg (0.125 mg) tablet 0.125 mcg PO DAILY 08/13/23 10/24/23 History empagliflozin 10 mg tablet 10 mg PO QAM 08/13/23 10/24/23 History (Jardiance) escitalopram oxalate 10 mg tablet 10 mg PO QAM 08/13/23 10/24/23 History metoprolol succinate 100 mg 125 mg PO BID 08/13/23 10/24/23 History tablet,extended release 24 hr ondansetron HCl 4 mg tablet 4 mg PO Q8H PRN NAUSEA/VOMITING 08/13/23 10/24/23 History sacubitril 24 mg-valsartan 26 mg 1 tab PO BID 08/13/23 10/24/23 History tablet (Entresto) sarilumab 200 mg/1.14 mL 200 mg subcut .[id number] 08/13/23 10/24/23 History subcutaneous pen injector (Kevzara) sulfasalazine 500 mg tablet 500 mg PO QAM 08/13/23 10/24/23 History furosemide 20 mg tablet 40 mg (2 x 20 mg) PO BID 15 days 08/30/23 10/24/23 Rx #60 tabs magnesium oxide 400 mg (241.3 mg 400 mg PO BID 15 days #30 tabs 08/30/23 10/24/23 Rx magnesium) tablet spironolactone 25 mg tablet 25 mg PO QAM 30 days #30 tabs 08/30/23 10/24/23 Rx duloxetine 30 mg capsule,delayed 30 mg PO QAM 10/24/23 10/24/23 History release hydrocodone 10 mg-acetaminophen 1 tab PO Q6H PRN Pain 10/24/23 10/24/23 History 325 mg tablet prednisone 5 mg tablet 5 mg PO UD RHEUMATOID ARTHRITIS 10/24/23 10/24/23 History Patient History Medical History (Updated 10/29/23 @ 16:18 by Sebastian Diez MD) Pre-diabetes Erectile dysfunction Tobacco use disorder Surgical History History of cardiac cath History of colonoscopy Hx of tonsillectomy Family History Other Heart disease Hypertension Social History Smoking Status: Current every day smoker Tobacco Type: Cigarettes Cigarettes Per Day: 1; Second Hand Exposure: Yes; Do You Dip or Chew Tobacco: No; Hx Alcohol Use: No Hx Substance Use: No Preferred Language: Azeri Communication Ability: Effective Fiber Optics Engineer Required: No Beliefs That Will Affect Care: None Current Living Situation: Family and Significant Other Current Living Situation Comment: Lives at home with girlfriend Hayley, & their child Danica Feels Safe at Home: Yes Assistive Devices: Cane, Walker and Wheelchair Review of Systems Constitutional: Fatigue, but no fever or chills Cardiovascular: Currently, no chest pain, or palpitations Respiratory: no shortness of breath, no cough Gastrointestinal: No nausea, vomiting, diarrhea or abdominal pain : No dysuria or hesitancy, no urinary discharge Physical Exam Couldn't be performed as the encounter was performed via telemed. Results & Data Vital Signs (Past 12 Hours) Vital Signs Temp Pulse Resp BP BP Pulse Ox O2 Del Method 10/29/23 15:43 36.7 C 109 H 18 98/68 L 95 Room Air 10/29/23 11:00 36.6 C 108 H 20 98/62 L 98 Room Air 10/29/23 08:00 Room Air 10/29/23 07:56 101/68 10/29/23 07:42 37.0 C 84 18 94/63 L 98 Room Air Laboratory Results 10/23: 1 of 4 bottles of blood culture growing Gram-positive cocci in chains 10/25: 1 of 4 bottles of blood culture growing coagulase-negative staph (2 strains) Diagnostic Findings TTE performed on 10/24: Mild concentric left ventricular hypertrophy Left ventricular ejection fraction 50-55% Mild mitral and mild tricuspid regurgitation Mildly elevated right ventricular systolic pressure
[2023-10-29] MEDS: SODIUM CHLORIDE 0.9% 250 ML IV ONE (16:50)
[2023-10-29] MEDS: SODIUM CHLORIDE 0.9% 1,000 ML IV SCH (17:10)
[2023-10-30 07:46] LABS: Basophils # (auto) 0.01 K/uL (0.00-0.20); Basophils % (auto) 0.1 %; Eosinophils % (auto) 6.4 %; Hematocrit (blood only) 32.7 % (42.0-52.0); Hemoglobin 10.1 g/dl (14.0-18.0); Immature Granulocytes % (auto) 1.3 %; Mean Corpuscular Hemoglobin 24.3 pg (25.0-34.0); Mean Corpuscular Hgb Conc 30.9 g/dL (32.0-36.0); Mean Corpuscular Volume 78.8 fL (80.0-100.0); Mean Platelet Volume 9.4 fL (9.4-12.4); Monocytes # (auto) 0.18 K/uL (0.11-0.59); Monocytes % (auto) 2.3 %; Neutrophils # (auto) 6.32 K/uL (1.40-6.50); Neutrophils % (auto) 80.9 %; Platelet Count 449 K/uL (130-400); RDW Coefficient of Variation 18.8 % (11.5-14.5); RDW Standard Deviation 53.7 fL (36.4-46.3); Red Blood Count 4.15 M/uL (4.70-6.10); White Blood Count 7.81 K/ul (4.8-10.8)
[2023-10-30 08:06] LABS: Albumin Level 2.7 gm/dl (3.4-5.0); Bilirubin,Total 0.3 mg/dl (0.2-1.0); Calcium 8.7 mg/dl (8.6-10.3); Magnesium 1.8 mg/dl (1.7-2.4); Potassium 4.6 mmol/L (3.5-5.1)
[2023-10-30 08:12] LABS: Albumin Globulin Ratio 0.7 (0.9-2); BUN Creatinine Ratio 32.4 (10-20); Creatinine Clr Calc Pharmacy 139.8 ml/min; Est GFR (African American) 121.2 ml/min; Est GFR (Non-African American) 104.5 ml/min; Total Protein 6.7 gm/dl (6.0-8.3)
[2023-10-30] MEDS: METOPROLOL SUCC 25MG EXT REL TAB PO STA (10:02)
--- NOTE | 2023-10-30 10:35 | Hospitalist Progress Note ---
Date of Service October 30, 2023 Assessment & Plan (1) Medical non-compliance: Plan 58-year-old male with PMH of COPD, lung nodule, PAD, chronic systolic CHF, SVT, small vessel disease, frequent PVCs, persistent A-fib on Eliquis, GERD, degenerative disease, scoliosis, osteoporosis, rheumatoid arthritis involving multiple sites with positive rheumatoid factor, immunodeficiency due to drugs, recurrent depression, erectile dysfunction, tobacco use disorder, hepatitis C virus infection cured after antiviral drug therapy, long-term systemic steroid user, medication noncompliance presented to the hospital With chest pain and right shoulder pain, was found to be in A-fib RVR. He is being managed for the following: Atrial fibrillation with rapid ventricular response: Chronic combined systolic and diastolic CHF (congestive heart failure): HTN (hypertension); PAD (peripheral artery disease); CAD (coronary artery disease): Admitting labs, no signs of infection, respiratory viral panel negative. Had bout of Vtach with 14 beat run in the ER echo July 2023 - EF of 50 to 55%, mild LVH, trace MR, TR, no pulmonary hypertension noted Echo this admission EF of 50 to 55%, moderate dilatation of left atrium. Status post Cardizem drip, heart rate controlled, still in A-fib. Cardiology evaled, continue digoxin 125 mcg, metoprolol succinate 125 mg twice daily, Eliquis. 10/29 pt with persistent elevated rates, asymptomatic. Will increase Metoprolol to 150mg in the morning and 125mg at HS continue close tele monitor, will give 1g mag sulfate IV as mag is 1.8 to get above 2. K is acceptable. Bacteremia: 10/23 Bl Cx came back +ve, 05/31. Repeat Bl Cx 10/25 also positive 1 of 4 bottles. f/u final c/s. C/w Rocephin 10/25. patient has been made aware. Will send tick serology and acute hepatitis panel. ID saw patient on 10/28, not concerned about 10/25 blood culture, likely contaminant. ID to follow up today to make final recs Other chronic medical conditions: Continue with/resume home meds as and when able Hepatitis C: Status posttreatment COPD: Not in exacerbation, continue home inhalers. Rheumatoid arthritis: Continue prednisone 5 mg daily, chronic steroid use. DVT prophylaxis: Patient on Eliquis CODE STATUS: Full code Disposition: PT/OT, likely needs rehab. ID to make final recs today, discussed with CM okay to apply for auth. A total of 43 minutes was spent coordinating, documenting, and providing care for this patient excluding time spent in the performance of separately billed services. This included personally viewing all current laboratories and imaging studies, medication reconciliation, outpatient chart review, and discussion with specialists. Admission and Anticipated Discharge Date Admission Date: October 24, 2023 Supervising Physician Co-Signing Physician Notes Patient was seen and examined at bedside. Patient was sitting up in chair, on room air, NAD, comfortable. Patient's blood pressure has been running on the lower side, patient is on chronic prednisone therapy. Will order cortisol in the morning and cortisol response to stimulation. Follow-up on the results. Rest of the assessment and plan as above. I have seen and examined the patient and have discussed the case with the provider above. I agree with the assessment and plan as stated. Subjective Follow-up for atrial fibrillation with RVR. He offers no acute concerns this morning. Tele monitor reveals HR 100-140s last 12 hours. He denies palpitations, sob, dizziness, n/v/d, abd pain. He is moving bowels. Appetite is okay. Awaiting final ID recs. Review of Systems Review of Systems: All systems reviewed & are unremarkable except as noted in HPI & below Physical Exam Physical Exam: Gen: WD/WN, obese, M, lack of bed mobility, slowed, NAD, A&O x3 HEENT: Normocephalic, atraumatic, conjunctivae moist, sclerae anicteric, mucous membranes moist. Lung: Clear to Auscultation bilaterally, no wheezes/rales/rhonchi Heart: IRR/IRR no murmurs, rubs, or gallops Abdomen: Soft, NT, ND +BS x 4 Extremities: trace edema, R great toe with amp incision healing well, no erythema Skin: Warm, no rash, negative turgor. Results & Data Results & Data Vital Signs (Past 12 Hours) Vital Signs Temp Pulse Pulse Resp BP Pulse Ox O2 Del Method 10/30/23 08:00 Room Air 10/30/23 07:59 98 H 10/30/23 07:43 36.8 C 88 18 108/70 92 Room Air 10/30/23 03:30 37.4 C 111 H 20 98/65 L 97 Room Air 10/29/23 22:53 36.6 C 100 H 20 108/69 97 Room Air Laboratory Results Short CBC 10/30/23 Range/Units 07:31 WBC 7.81 (4.8-10.8) K/ul Hgb 10.1 L (14.0-18.0) g/dl Hct 32.7 L (42.0-52.0) % Plt Count 449 H (130-400) K/uL BMP 10/30/23 07:31 Sodium 131 L Potassium 4.6 Chloride 99 Carbon Dioxide 27 BUN 22 Creatinine 0.68 Glucose 104 H Calcium 8.7 Liver Function 10/30/23 Range/Units 07:31 Total Bilirubin 0.3 (0.2-1.0) mg/dl AST 36 (13-39) U/L ALT 41 (7-52) U/L Alkaline Phosphatase 97 (34-104) U/L Albumin 2.7 L (3.4-5.0) gm/dl Medications Administered Current Inpatient Medications Acetaminophen (Acetaminophen 500 Mg Tab) 500 mg PO Q6H PRN PRN Reason: fever/pain Stop: 11/23/23 22:58 Last Admin: 10/24/23 23:06 Dose: 500 mg Hydrocodone Bitart/Acetaminophen (Hydrocodone/Acetaminophen 10/325 Tab) 1 tab PO Q6H PRN PRN Reason: Pain Stop: 11/08/23 10:32 Last Admin: 10/30/23 10:04 Dose: 1 tab Alendronate Sodium (Alendronate Sodium 70 Mg Tab) 70 mg PO We@0700 [facility] Stop: 11/30/23 06:59 Apixaban (Apixaban 5 Mg Tablet) 5 mg PO BID [facility] Stop: 11/24/23 10:44 Last Admin: 10/30/23 08:00 Dose: 5 mg Aspirin (Aspirin 81 Mg Ectab) 81 mg PO QAM [facility] Stop: 11/24/23 10:44 Last Admin: 10/30/23 08:00 Dose: 81 mg Digoxin (Digoxin 0.125 Mg Tab) 0.125 mg PO QAM [facility] Stop: 11/24/23 11:59 Last Admin: 10/30/23 07:59 Dose: 0.125 mg Duloxetine HCl (Duloxetine Hcl 30 Mg Cap) 30 mg PO QAM [facility] Stop: 11/24/23 10:44 Last Admin: 10/30/23 07:59 Dose: 30 mg Escitalopram Oxalate (Escitalopram Oxalate 10 Mg Tab) 10 mg PO QAM [facility] Stop: 11/25/23 08:59 Last Admin: 10/30/23 07:59 Dose: 10 mg Furosemide (Furosemide 40 Mg Tab) 40 mg PO BID [facility] Stop: 11/24/23 10:44 Last Admin: 10/29/23 07:51 Dose: 40 mg Ceftriaxone Sodium (Rocephin) 2,000 mg in 50 mls @ 100 mls/hr IV Q24H [facility] Stop: 11/09/23 17:59 Last Infusion: 10/29/23 17:55 Dose: Infused Lactobacillus Acidophilus (Advanced Probiotic 625 Mg Capsule) 1,250 mg PO DAILY [facility] Stop: 11/25/23 17:59 Last Admin: 10/30/23 08:00 Dose: 1,250 mg Magnesium Oxide (Magnesium Oxide 400 Mg Tab) 400 mg PO BID [facility] Stop: 11/24/23 10:44 Last Admin: 10/30/23 08:00 Dose: 400 mg Metoprolol Succinate (Metoprolol Succ 25mg Ext Rel Tab) 125 mg PO [facility] Stop: 11/29/23 20:59 Metoprolol Succinate (Metoprolol Succ 50mg Ext Rel Tab) [facility] [place]: 11/30/23 08:59 Miscellaneous (Sarilumab [Kevzara] ~ Order Awaiting Action) 1 each N/A QS [facility] Stop: 11/24/23 15:59 Last Admin: 10/30/23 08:01 Dose: Not Given Nitroglycerin (Nitroglycerin Sl 0.4 Mg/Tab Tab) 0.4 mg SL UD PRN PRN Reason: Chest Pain Stop: 11/24/23 10:32 Oxycodone HCl (Oxycodone Hcl Ir 5 Mg Tab (Immediate Release)) 5 - 10 mg PO QID PRN PRN Reason: Pain Stop: 11/07/23 22:57 Last Admin: 10/29/23 20:19 Dose: 5 mg Pantoprazole Sodium (Pantoprazole 40 Mg Tab) [facility]; Protocol Stop: 11/25/23 06:29 Last Admin: 10/30/23 07:10 Dose: 40 mg Prednisone (Prednisone 5 Mg Tab) 5 mg PO DAILY [facility] Stop: 11/24/23 10:44 Last Admin: 10/30/23 08:00 Dose: 5 mg Rosuvastatin Calcium (Rosuvastatin Calcium 5 Mg Tab) 5 mg PO QAM [facility] Stop: 11/25/23 08:59 Last Admin: 10/30/23 07:59 Dose: 5 mg Sacubitril/Valsartan (Valsartan/Sacubitril 26/24mg Tab) 1 tab PO BID [facility] Stop: 11/24/23 10:44 Last Admin: 10/30/23 08:00 Dose: 1 tab Sildenafil Citrate (Sildenafil Citrate 20 Mg Tablet) 20 mg PO BID [facility] Stop: 11/24/23 10:44 Last Admin: 10/26/23 07:51 Dose: Not Given Sildenafil Citrate (Sildenafil Citrate 20 Mg Tablet) 40 mg PO HS [facility] Stop: 11/24/23 20:59 Spironolactone (Spironolactone 25 Mg Tab) 25 mg PO QAM [facility] Stop: 11/24/23 10:44 Last Admin: 10/29/23 07:50 Dose: 25 mg Sulfasalazine (Sulfasalazine 500 Mg Tablet) 500 mg PO QAM [facility] Stop: 11/24/23 10:44 Last Admin: 10/30/23 08:00 Dose: 500 mg Umeclidinium [place] (Umeclidinium [place] 62.5mcg/Blister 7 Puffs/Inhaler) 1 puffs INH QAM [facility] Stop: 11/25/23 08:59 Last Admin: 10/30/23 08:00 Dose: 1 puffs Vitamin D (Cholecalciferol 10 Mcg (400 Units) Tab) 10 mcg PO DAILY [facility] Stop: 11/25/23 08:59 Last Admin: 10/30/23 07:59 Dose: 10 mcg
[2023-10-30] MEDS: MAGNESIUM SULFATE / D5W 1 GM/100 ML BAG IV ONE (10:43)
[2023-10-30] MEDS: diphenhydrAMINE Capsule 25 MG CAP PO ONE (16:32)
[2023-10-30] MEDS ORDERED: METOPROLOL SUCC 25MG EXT REL TAB PO SCH (21:00)
[2023-10-30] MEDS: METOPROLOL SUCC 50MG EXT REL TAB PO SCH (21:21)
[2023-10-30] MEDS: VALSARTAN/SACUBITRIL 26/24MG TAB PO SCH (21:22)
[2023-10-31] MEDS: SODIUM CHLORIDE 0.9% 1,000 ML IV ONE (03:56)
[2023-10-31] MEDS: DIGOXIN 250 MCG in SYRINGE 9 ML IV STA (04:10)
[2023-10-31 04:12] LABS: Basophils # (auto) 0.01 K/uL (0.00-0.20); Basophils % (auto) 0.1 %; Eosinophils # (auto) 0.49 K/uL (0.00-0.50); Eosinophils % (auto) 5.7 %; Hematocrit (blood only) 31.8 % (42.0-52.0); Hemoglobin 9.7 g/dl (14.0-18.0); Immature Granulocytes # (auto) 0.07 K/uL (0.01-0.20); Immature Granulocytes % (auto) 0.8 %; Lymphocytes # (auto) 0.77 K/uL (1.20-3.40); Lymphocytes % (auto) 8.9 %; Mean Corpuscular Hgb Conc 30.5 g/dL (32.0-36.0); Mean Corpuscular Volume 78.7 fL (80.0-100.0); Mean Platelet Volume 9.6 fL (9.4-12.4); Monocytes # (auto) 0.15 K/uL (0.11-0.59); Monocytes % (auto) 1.7 %; Neutrophils # (auto) 7.14 K/uL (1.40-6.50); Neutrophils % (auto) 82.8 %; Platelet Count 489 K/uL (130-400); RDW Coefficient of Variation 18.6 % (11.5-14.5); RDW Standard Deviation 53.3 fL (36.4-46.3); Red Blood Count 4.04 M/uL (4.70-6.10); White Blood Count 8.63 K/ul (4.8-10.8)
[2023-10-31 04:26] LABS: BUN Creatinine Ratio 28.6 (10-20); Calcium 8.7 mg/dl (8.6-10.3); Creatinine Clr Calc Pharmacy 123.4 ml/min; Est GFR (African American) 115.1 ml/min; Est GFR (Non-African American) 99.3 ml/min; Potassium 4.6 mmol/L (3.5-5.1)
[2023-10-31 04:38] LABS: Partial Thromboplastin Ratio 0.9; Partial Thromboplastin Time 23 Seconds (21-31)
[2023-10-31] MEDS: ALENDRONATE SODIUM 70 MG TAB PO SCH (06:10)
--- NOTE | 2023-10-31 07:01 | Communication Note ---
Date of Service: October 31, 2023 320 a.m. Patient with substernal pain relieved by oxycodone as per RN. Unable to give nitroglycerin due to low BP. EKG as per them interpretation rate 105, A-fib, RAD, nonspecific T wave abnormalities, low voltage Troponin Troponin 32 AP Chest pain with troponin elevation Rule out ACS Follow troponin Patient may need cardiology eval for ischemic workup if with subsequent troponin elevation N.p.o., hold Eliquis for now
[2023-10-31] MEDS: COSYNTROPIN 250 MCG in SYRINGE 4 ML IV ONE (08:04)
[2023-10-31] MEDS ORDERED: METOPROLOL SUCC 50MG EXT REL TAB PO SCH (09:00)
--- NOTE | 2023-10-31 11:48 | Hospitalist Progress Note ---
Date of Service October 31, 2023 Assessment & Plan (1) Medical non-compliance: Plan 58-year-old male with PMH of COPD, lung nodule, PAD, chronic systolic CHF, SVT, small vessel disease, frequent PVCs, persistent A-fib on Eliquis, GERD, degenerative disease, scoliosis, osteoporosis, rheumatoid arthritis involving multiple sites with positive rheumatoid factor, immunodeficiency due to drugs, recurrent depression, erectile dysfunction, tobacco use disorder, hepatitis C virus infection cured after antiviral drug therapy, long-term systemic steroid user, medication noncompliance presented to the hospital With chest pain and right shoulder pain, was found to be in A-fib RVR. He is being managed for the following: Atrial fibrillation with rapid ventricular response: Chronic combined systolic and diastolic CHF (congestive heart failure): HTN (hypertension); PAD (peripheral artery disease); CAD (coronary artery disease): Admitting labs, no signs of infection, respiratory viral panel negative. Reportedly had a bout of Vtach with 14 beat run in the ER Echo July 2023 - EF of 50 to 55%, mild LVH, trace MR, TR, no pulmonary hypertension noted Echo this admission EF of 50 to 55%, moderate dilatation of left atrium. Status post Cardizem drip, heart rate controlled, Still in A-fib but rate controlled Currently on digoxin 125 mcg, metoprolol succinate now increased to 150mg BID from 125mg BID at home, Eliquis 5mg BID. Had pleuritic chest pain overnight Reviewed with Managing Supervisor. 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 Will follow up with lab. Other chronic medical conditions: Continue home meds Hepatitis C: Status posttreatment COPD: Not in exacerbation, continue home inhalers. Rheumatoid arthritis: Continue prednisone 5 mg daily, chronic steroid use. DVT prophylaxis: Patient on Eliquis CODE STATUS: Full code Disposition: PT/OT, likely needs rehab. I spent a total of 50 minutes coordinating, documenting and providing care for this patient excluding time spent in performance of separately billed services Admission and Anticipated Discharge Date Admission Date: October 24, 2023 Subjective Patient seen and examined. Reported chest pain overnight usually with deep breath. Currently denies any shortness of breath at rest. Reports mild dry cough. Denies fever, chills. Denies nausea, vomiting, abdominal pain, diarrhea Denies headache, dizziness Physical Exam Constitutional: + well hydrated; no acute distress Eyes: PERRL, conjunctivae normal, anicteric sclerae ENMT: external ear and nose normal, oropharynx normal Respiratory: normal respiratory effort, lungs clear to auscultation Cardiovascular: Irregularly irregular S1 S2 Gastrointestinal (Abdomen): normal bowel sounds, soft, nontender, no hepatosplenomegaly Musculoskeletal: No pedal edema Neurologic: PERRL, EOMI, accommodation nl, no face palsy, no dysarthria Psychiatric: A+Ox3, euthymic affect Results & Data Results & Data Vital Signs (Past 12 Hours) Vital Signs Temp Pulse Pulse Resp BP BP Pulse Ox 10/31/23 09:00 10/31/23 08:06 92 H 10/31/23 07:42 36.9 C 85 18 111/71 94 10/31/23 04:10 101 H 10/31/23 03:10 104 H 22 98/62 L 93 10/31/23 03:07 37.2 C 109 H 18 122/84 93 O2 Del Method 10/31/23 09:00 Room Air 10/31/23 08:06 10/31/23 07:42 Room Air 10/31/23 04:10 10/31/23 03:10 Room Air 10/31/23 03:07 Room Air Laboratory Results Abnormal lab results 10/31/23 10/31/23 10/31/23 Range/Units 03:04 03:59 07:57 RBC 4.04 L (4.70-6.10) M/uL Hgb 9.7 L (14.0-18.0) g/dl Hct 31.8 L (42.0-52.0) % MCV 78.7 L (80.0-100.0) fL MCH 24.0 L (25.0-34.0) pg MCHC 30.5 L (32.0-36.0) g/dL RDW Std Deviation 53.3 H (36.4-46.3) fL RDW Coeff of Alex 18.6 H (11.5-14.5) % Plt Count 489 H (130-400) K/uL Neut # (Auto) 7.14 H (1.40-6.50) K/uL Lymph # (Auto) 0.77 L (1.20-3.40) K/uL Sodium 131 L (136-145) mmol/L BUN/Creatinine Ratio 28.6 H (10-20) Glucose 109 H (70-99(Fasting)) mg/dl POC Glucose 115 H (70-99) mg/dl Troponin I High Sens 32.0 H 28.2 H (0-20) pg/ml
--- NOTE | 2023-10-31 12:48 | Cardiology Progress Note ---
Date of Service October 31, 2023 Assessment & Plan (1) Permanent atrial fibrillation: Plan: * Continue metoprolol succinate 150 mg p.o. twice daily, digoxin for rate control. Ventricular rate relatively well-controlled at present at rest on telemetry in the 90s to 100 bpm range. Blood pressure stable, most recent measurement 112/68 * (2) Elevated troponin: Plan: * Patient reassessed for complaints of chest discomfort. Notes only chest pain on inspiration. EKG reveals chronic lateral T wave flattening, unchanged compared to previous tracings. High-sensitivity troponin mildly elevated at 32 pg per mL and then 28 pg per mL, which is actually trended down compared to earlier this hospital stay, and is relatively similar to other previous measurements. * echo 10/25/23: LVEF 50-55%mild MR, mild TR, no regional wall motion abnormalities * In March, patient underwent cardiac catheterization in the setting of non-STEMI with nonobstructive coronary heart disease, there was an ulcerated nonobstructive plaque of the mid RCA for which medical management was recommended. * No additional work up felt to be indicated at present. * Increase activity as tolerated (3) Positive blood cultures: Plan: * 1 of 2 bottles drawn on 10/24/2023 positive for gram cocci in chains, still on preliminary status. 1 of 2 bottles drawn on 10/26/2023 have yielded coag negative staph not lugdenenis. Await blood culture finalized data, for antibiotic plan Admission and Anticipated Discharge Date Admission Date: October 24, 2023 Subjective Patient seen in cardiology reassessment per the request of Dr Sanon. Pt in no distress. Sleeping when I entered room, and was laying supine. Physical Exam Constitutional: WD/WN, vitals as above well developed; no acute distress Neck: trachea midline, no thyromegaly Respiratory: normal respiratory effort Auscultation: lungs clear to auscultation bilaterally Cardiovascular: Rate/Rhythm: + irregularly irregular Heart Sounds: + murmur (II/ systolic murmur) Vessels: no JVD Extremities: no edema (1+ pretibial edema b/l) Gastrointestinal (Abdomen): normal bowel sounds, soft, nontender, no hepatosplenomegaly Neurologic: PERRL, EOMI, accommodation nl, no face palsy, no dysarthria Psychiatric: A+Ox3, euthymic affect Results & Data Vital Signs (Past 12 Hours) Vital Signs Temp Pulse Pulse Resp BP BP Pulse Ox 10/31/23 11:50 36.7 C 96 H 18 112/68 94 10/31/23 09:00 10/31/23 08:06 92 H 10/31/23 07:42 36.9 C 85 18 111/71 94 10/31/23 04:10 101 H 10/31/23 03:10 104 H 22 98/62 L 93 10/31/23 03:07 37.2 C 109 H 18 122/84 93 O2 Del Method 10/31/23 11:50 Room Air 10/31/23 09:00 Room Air 10/31/23 08:06 10/31/23 07:42 Room Air 10/31/23 04:10 10/31/23 03:10 Room Air 10/31/23 03:07 Room Air Laboratory Results Cardiac Enzymes 10/31/23 10/31/23 Range/Units 03:59 07:57 Troponin I High Sens 32.0 H 28.2 H (0-20) pg/ml Coagulation 10/31/23 Range/Units 03:59 APTT 23 (21-31) Seconds CBC 10/31/23 Range/Units 03:59 WBC 8.63 (4.8-10.8) K/ul RBC 4.04 L (4.70-6.10) M/uL Hgb 9.7 L (14.0-18.0) g/dl Hct 31.8 L (42.0-52.0) % Plt Count 489 H (130-400) K/uL Neut # (Auto) 7.14 H (1.40-6.50) K/uL Lymph # (Auto) 0.77 L (1.20-3.40) K/uL [place] # (Auto) 0.15 (0.11-0.59) K/uL Eos # (Auto) 0.49 (0.00-0.50) K/uL Baso # (Auto) 0.01 (0.00-0.20) K/uL Comprehensive Metabolic Panel 10/31/23 Range/Units 03:59 Sodium 131 L (136-145) mmol/L Potassium 4.6 (3.5-5.1) mmol/L Chloride 99 (98-107) mmol/L Carbon Dioxide 27 (21-32) mmol/L BUN 22 (6-23) mg/dl Creatinine 0.77 (0.6-1.4) mg/dl Glucose 109 H (70-99(Fasting)) mg/dl Calcium 8.7 (8.6-10.3) mg/dl Intake and Output 10/30/23 10/31/23 10/31/23 22:59 06:59 14:59 Intake Total 970 / 2406 240 / 240 Output Total 1250 / 1775 275 / 1775 300 / 300 Balance -280 / 631 -275 / 631 -60 / -60 Intake: IV 50 / 1150 cefTRIAXone SODIUM 2,000 mg In 50 / 50 50 ml @ 100 mls/hr IV Q24H [facility] Rx#:[id number] Oral 920 / 1256 240 / 240 Output: Urine 1250 / 1775 275 / 1775 300 / 300 Other: Weight 105.7 kg Weight Measurement Method Built in [facility]
[2023-11-01 07:46] LABS: Hematocrit (blood only) 33.9 % (42.0-52.0); Hemoglobin 10.2 g/dl (14.0-18.0); Mean Corpuscular Hemoglobin 23.7 pg (25.0-34.0); Mean Corpuscular Hgb Conc 30.1 g/dL (32.0-36.0); Mean Corpuscular Volume 78.7 fL (80.0-100.0); Mean Platelet Volume 9.7 fL (9.4-12.4); Platelet Count 459 K/uL (130-400); RDW Coefficient of Variation 18.6 % (11.5-14.5); RDW Standard Deviation 53.4 fL (36.4-46.3); Red Blood Count 4.31 M/uL (4.70-6.10); White Blood Count 6.47 K/ul (4.8-10.8)
[2023-11-01 08:03] LABS: Calcium 8.7 mg/dl (8.6-10.3); Magnesium 2.1 mg/dl (1.7-2.4); Potassium 4.4 mmol/L (3.5-5.1)
[2023-11-01 08:09] LABS: BUN Creatinine Ratio 40.3 (10-20); Est GFR (African American) 121.9 ml/min; Est GFR (Non-African American) 105.2 ml/min; Phosphorus 3.3 mg/dl (2.5-4.9)
[2023-11-01 14:10] LABS: Ehrlichia chaff DNA Bld Negative (Negative)
--- NOTE | 2023-11-01 14:54 | Hospitalist Progress Note ---
Date of Service November 01, 2023 Assessment & Plan (1) Medical non-compliance: Plan 58-year-old male with PMH of COPD, lung nodule, PAD, chronic systolic CHF, SVT, small vessel disease, frequent PVCs, persistent A-fib on Eliquis, GERD, degenerative disease, scoliosis, osteoporosis, rheumatoid arthritis involving multiple sites with positive rheumatoid factor, immunodeficiency due to drugs, recurrent depression, erectile dysfunction, tobacco use disorder, hepatitis C virus infection cured after antiviral drug therapy, long-term systemic steroid user, medication noncompliance presented to the hospital With chest pain and right shoulder pain, was found to be in A-fib RVR. He is being managed for the following: Atrial fibrillation with rapid ventricular response: Chronic combined systolic and diastolic CHF (congestive heart failure): HTN (hypertension); PAD (peripheral artery disease); CAD (coronary artery disease): Admitting labs, no signs of infection, respiratory viral panel negative. Reportedly had a bout of Vtach with 14 beat run in the ER Echo July 2023 - EF of 50 to 55%, mild LVH, trace MR, TR, no pulmonary hypertension noted Echo this admission EF of 50 to 55%, moderate dilatation of left atrium. Status post Cardizem drip, heart rate controlled, Still in A-fib but rate controlled Currently on digoxin 125 mcg, metoprolol succinate now increased to 150mg BID from 125mg BID at home, Eliquis 5mg BID. Bacteremia: 10/23 Bl Cx came back +ve, 1/ for GPC in chains Repeat Bl Cx 10/25 also positive 1 of 4 bottles for CONS, likely contaminant Called Micro lab. They reported Culture from 10/23 was sent out as they could not identify it. I discussed with ID Dr Weaver via TT. She recommends stopping IV ceftriaxone which patient has been on for the past week and monitor for at least 24h Later in the day, BCX speciated as Moraxella. ID aware Will follow up sensitivities as well Other chronic medical conditions: Continue home meds Hepatitis C: Status posttreatment COPD: Not in exacerbation, continue home inhalers. Rheumatoid arthritis: Continue prednisone 5 mg daily, chronic steroid use. DVT prophylaxis: Patient on Eliquis CODE STATUS: Full code Disposition: PT/OT, likely needs rehab. I spent a total of 50 minutes coordinating, documenting and providing care for this patient excluding time spent in performance of separately billed services Admission and Anticipated Discharge Date Admission Date: October 24, 2023 Subjective Patient seen and examined. Denied any complaints today Physical Exam Constitutional: + well hydrated; no acute distress Eyes: PERRL, conjunctivae normal, anicteric sclerae ENMT: external ear and nose normal, oropharynx normal Respiratory: normal respiratory effort, lungs clear to auscultation Cardiovascular: Irregularly irregular S1 S2 Gastrointestinal (Abdomen): normal bowel sounds, soft, nontender, no hepatosplenomegaly Musculoskeletal: No pedal edema Right toe surgical site well healed Neurologic: PERRL, EOMI, accommodation nl, no face palsy, no dysarthria Psychiatric: A+Ox3, euthymic affect Results & Data Results & Data Vital Signs (Past 12 Hours) Vital Signs Temp Pulse Pulse Resp BP BP Pulse Ox 11/01/23 11:20 36.6 C 90 18 93/58 L 96 11/01/23 08:10 36.5 C 107 H 20 109/75 95 11/01/23 08:00 11/01/23 07:43 89 11/01/23 03:46 36.5 C 101 H 18 111/70 98 O2 Del Method 11/01/23 11:20 Room Air 11/01/23 08:10 Room Air 11/01/23 08:00 Room Air 11/01/23 07:43 11/01/23 03:46 Room Air Laboratory Results Abnormal lab results 11/01/23 Range/Units 06:50 RBC 4.31 L (4.70-6.10) M/uL Hgb 10.2 L (14.0-18.0) g/dl Hct 33.9 L (42.0-52.0) % MCV 78.7 L (80.0-100.0) fL MCH 23.7 L (25.0-34.0) pg MCHC 30.1 L (32.0-36.0) g/dL RDW Std Deviation 53.4 H (36.4-46.3) fL RDW Coeff of Alex 18.6 H (11.5-14.5) % Plt Count 459 H (130-400) K/uL Sodium 132 L (136-145) mmol/L BUN 27 H (6-23) mg/dl BUN/Creatinine Ratio 40.3 H (10-20) Glucose 124 H (70-99(Fasting)) mg/dl
[2023-11-01 19:39] VITALS: RESP 18
[2023-11-01 22:36] VITALS: O2SAT 96
[2023-11-02 06:55] LABS: Hematocrit (blood only) 31.8 % (42.0-52.0); Hemoglobin 9.9 g/dl (14.0-18.0); Mean Corpuscular Hemoglobin 24.2 pg (25.0-34.0); Mean Corpuscular Hgb Conc 31.1 g/dL (32.0-36.0); Mean Corpuscular Volume 77.8 fL (80.0-100.0); Mean Platelet Volume 9.6 fL (9.4-12.4); Platelet Count 513 K/uL (130-400); RDW Coefficient of Variation 18.7 % (11.5-14.5); RDW Standard Deviation 52.9 fL (36.4-46.3); Red Blood Count 4.09 M/uL (4.70-6.10); White Blood Count 7.58 K/ul (4.8-10.8)
[2023-11-02 07:13] LABS: BUN Creatinine Ratio 33.8 (10-20); Calcium 9.2 mg/dl (8.6-10.3); Creatinine Clr Calc Pharmacy 130.4 ml/min; Potassium 4.1 mmol/L (3.5-5.1)
[2023-11-02 11:28] VITALS: TEMP 97.9
--- NOTE | 2023-11-02 12:40 | Discharge Summary ---
Date of Service November 02, 2023 Admission HPI Per Admitting Provider This is a 58 yo male with PMHx significant for COPD, lung nodules, peripheral artery disease, chronic systolic CHF, history of SVT, small vessel disease, frequent PVCs, persistent atrial fibrillation on eliquis, GERD, degenerative's disease, scoliosis, osteoporosis, rheumatoid arthritis involving multiple sites with positive rheumatoid factor, immunodeficiency due to drugs, moderate episode of recurrent depression, erectile dysfunction, tobacco use disorder, hepatitis C virus infection cured after antiviral drug therapy, long-term systemic steroid user. Patient presents today with chest pain and R shoulder pain. Patient was previously discharged from our facility here on 08/30/23 and discharged to SNF where he was there for about 1 week. Pt states he has been living with his mother since then and feels that he might not have been ready for discharge from rehab. He states that he has been weak ever since his previous hospital stay. Specifically has worsening weakness in the past 2 weeks, more so in the past 2 days. Last evening he slightly fell out of the right side of his wheelchair causing injury to his arm. Patient states everything is sore today. He last took a Percocet yesterday. This morning he cannot recall if he took any of his home medications as it was quite confusing today. His chest pain prompted him to call 911 where an ambulance presented to the home and brought him here to the ER. Patient has not recently required any home nitroglycerin tablets. He states that he has been eating and drinking well, no abdominal complaints, no fevers, chills or sweats. His right toe status post hospital stay last month is healing well. He does note some increased edema in bilateral lower extremities. He was given diuretic here in the ER, at home uses Lasix 40 mg p.o. daily Admission Exam Per Admitting Provider General: awake, alert, no apparent distress, white male Head: Normocephalic, atraumatic ENT: PERRL, EOMI, no pharyngeal exudate, mucous membranes moist Chest: Clear to auscultation, on room air, no adventitious breath sounds Cardiac: Irregularly irregular, heart rate from 110s to 140s at bedside, increased towards the 140s with sitting up in bed, no murmur, no JVD, normal peripheral pulses, good capillary refill Abdominal: NABS x 4 quadrants, soft, nondistended, nontender to palpation, no rebound or guarding Extremities: Normal inspection, +1 peripheral edema BLE, no erythema, healing right great toe incision, calfs nontender to palpation, right arm with some areas of ecchymosis Psych: Normal mood and affect Neuro: AAO x 3, strength intact bilaterally and rated 4/5, no motor deficits, speech is clear, no peripheral sensory deficits Principal Diagnosis Atrial fibrillation with rapid ventricular rate Chronic systolic and diastolic heart failure Bacteremia Discharge Exam Constitutional + well hydrated; no acute distress Eyes PERRL, conjunctivae normal, anicteric sclerae ENMT external ear and nose normal, oropharynx normal Respiratory normal respiratory effort, lungs clear to auscultation Cardiovascular Rate/Rhythm: + irregularly irregular Gastrointestinal (Abdomen) normal bowel sounds, soft, nontender, no hepatosplenomegaly Musculoskeletal Trace pretibial edema Neurologic PERRL, EOMI, accommodation nl, no face palsy, no dysarthria Psychiatric A+Ox3, euthymic affect Discharge Data Allergies Allergy/AdvReac Type Severity Reaction Status Date / Time No Known Allergies Allergy Verified 10/24/23 16:32 Consultations 10/24/23 14:34 ED Decision to Admit Stat 10/24/23 16:12 Consult Cardiology Routine 10/28/23 14:05 Consult Infectious Diseases Routine Hospital Course (1) Medical non-compliance: Plan 58-year-old male with PMH of COPD, lung nodule, PAD, chronic systolic CHF, SVT, small vessel disease, frequent PVCs, persistent A-fib on Eliquis, GERD, degenerative disease, scoliosis, osteoporosis, rheumatoid arthritis involving multiple sites with positive rheumatoid factor, immunodeficiency due to drugs, recurrent depression, erectile dysfunction, tobacco use disorder, hepatitis C virus infection cured after antiviral drug therapy, long-term systemic steroid user, medication noncompliance presented to the hospital With chest pain and right shoulder pain, was found to be in A-fib RVR. He is being managed for the following: Atrial fibrillation with rapid ventricular response: Acute on chronic combined systolic and diastolic CHF (congestive heart failure): HTN (hypertension); PAD (peripheral artery disease); CAD (coronary artery disease): Admitting labs, no signs of infection, respiratory viral panel negative. Reportedly had a bout of Vtach with 14 beat run in the ER Echo July 2023 - EF of 50 to 55%, mild LVH, trace MR, TR, no pulmonary hypertension noted Echo this admission EF of 50 to 55%, moderate dilatation of left atrium. Status post Cardizem drip, heart rate controlled Was managed by Cardiology while inpatient Still in A-fib but rate controlled Currently on digoxin 125 mcg Home metoprolol succinate now increased to 150mg BID from 125mg BID Continue Eliquis 5mg BID. Home Entresto (26/24mg) reduced to 0.5 tab BID due to hypotension Sildenafil was on hold during hospital stay due to hypotension. This was stopped on discharge until follow up with Cardiology Continue po lasix on discharge Bacteremia: 10/23 Bl Cx came back +ve, 1/ for GPC in chains Repeat Bl Cx 10/25 also positive 1 of 4 bottles for CONS, likely contaminant Unclear source Infectious disease evaluated Patient completed 1 week of IV ceftriaxone inpatient and had no fever/leukocytosis after completion Culture was sent out as lab could not identify it Later speciated to Moraxella osloensis. Sensitivities still pending at time of discharge Other chronic medical conditions: Continue home meds Hepatitis C: Status posttreatment COPD: Not in exacerbation, continue home inhalers. Rheumatoid arthritis: Continue prednisone 5 mg daily, chronic steroid use. Calls to significant other to update her went to [facility] Discharged to [facility] for rehab Total Time Total Time Spent Total Time Spent (In Minutes): 35 Total Time Includes: Examination of the Patient, Discharge Planning and Medication Reconciliation Discharge Plan Discharge Items Patient Disposition: Transfer Inpatient Rehab Fac Reason For Visit: AFIB RVR Discharge Diagnosis: Atrial fibrillation with rapid ventricular rate Chronic systolic and diastolic heart failure Bacteremia Activity: As commented below Activity Comment: Per Physical therapist Non-emergency contact: Primary Care Provider and Scoreboard Operator Call non-emergency contact if: you have any medication questions and your symptoms worsen Follow-up/Referrals: Anahy Grayson MD [Primary Care Provider] - Diet: Heart Healthy and Low Sodium (2gm) Addtl Attending Provider Instructions: Mr Morgan You came to the hospital complaining of chest pain and weakness. You were managed for the above listed diagnoses. You were treated with one week of IV antibiotics. Your metoprolol succinate was increased to 150mg twice a day. Your Entresto was reduced to half a tab twice a day. Your sildenafil was stopped for now until follow up with Cardiology You are being discharged to [facility] for rehab. Please ensure follow up with your Primary Doctor and Cardiology It was a pleasure taking care of you Pending Studies at Discharge: Yes (Culture sensitivities) Stand-Alone Forms: My [facility] Skilled Items Patient informed of condition?: Yes DNR: No Discharge Level of Care: Acute rehab Communicable Disease: No Discharge Prognosis: Stable Lines: None Urinary Catheter: No Medications and DC Order Prescriptions: Continued rosuvastatin 5 mg tablet 5 mg PO QAM nitroglycerin 0.4 mg tablet, sublingual 0.4 mg sublingual .PRN/UD PRN (Reason: Chest Pain) Rx Instructions: NEEDED FOR CHEST PAIN : ONE TABLET UNDER THE TONGUE EVERY 5 MINUTES UP TO THREE DOSES. omeprazole 40 mg capsule,delayed release(DR/EC) 40 mg PO DAILYBB aspirin [Bob Low Dose Aspirin] 81 mg Tablet,Delayed Release (Dr/Ec) 81 mg PO QAM Spiriva Respimat 2.5 mcg/actuation mist 2 inh INHALATION QAM alendronate 70 mg tablet 70 mg PO WK Rx Instructions: TAKE THIS MED EVERY SUNDAY Eliquis 5 mg tablet 5 mg PO BID Qty: 60 0RF sulfasalazine 500 mg tablet 500 mg PO QAM ondansetron HCl 4 mg tablet 4 mg PO Q8H PRN (Reason: NAUSEA/VOMITING) digoxin 125 mcg (0.125 mg) tablet 0.125 mcg PO DAILY cholecalciferol (vitamin D3) [Vitamin D3] 10 mcg (400 unit) Capsule 10 mcg PO DAILY escitalopram oxalate 10 mg tablet 10 mg PO QAM Jardiance 10 mg tablet 10 mg PO QAM Kevzara 200 mg/1.14 mL pen injector 200 mg SUBCUT .[id number] Rx Instructions: PER PT "THINK IT'S THIS WEEK, WRITTEN ON CALENDAR". magnesium oxide 400 mg (241.3 mg magnesium) Tablet 400 mg PO BID 15 Days Qty: 30 1RF furosemide 20 mg tablet 40 mg PO BID 15 Days Qty: 60 1RF spironolactone 25 mg tablet 25 mg PO QAM 30 Days Qty: 30 0RF hydrocodone-acetaminophen 10-325 mg tablet 1 tab PO Q6H PRN (Reason: Pain) duloxetine 30 mg capsule,delayed release(DR/EC) 30 mg PO QAM Changed metoprolol succinate 100 mg tablet extended release 24 hr 150 mg PO BID Qty: 0 0RF Rx Instructions: TOTAL DOSE 125 MG--TAKES WITH 25 MG TAB. Entresto 24-26 mg tablet 0.5 tab PO BID Qty: 0 0RF prednisone 5 mg tablet 5 mg PO DAILY Qty: 0 0RF Discontinued sildenafil (pulm.hypertension) 20 mg tablet 20 mg PO BID Rx Instructions: Take in AM & NOON sildenafil (pulm.hypertension) 20 mg tablet 40 mg PO HS Discharge Orders: Discharge Order (Routine); Ordered 11/02/23 Ordered By: Saniya Sanon Admission Data Admit Date/Time: 10/24/23 15:09 Attending Provider: Saniya Sanon I. Admit Provider: Pelon Hoyos Primary Care Provider: Anahy Grayson Other Providers: Pelon Hoyos; Michael Allen; [facility]; Otto Levin; Gema Morel; Wilmer Ledezma I.; Lamont Bee II; aLuren Weaver; Fredy De Leon; Robin Vu; Sebastian Diez; Dami Escalante; Jeffrey Clark
[2023-11-02 13:07] VITALS: BP 95/61; PULSE 107
--- NOTE | 2023-11-03 05:47 | Electrocardiogram Report ---
Test Reason : Blood Pressure : / mmHG Vent. Rate : 104 BPM Atrial Rate : 101 BPM P-R Int : 000 ms QRS Dur : 086 ms QT Int : 328 ms P-R-T Axes : 000 091 221 degrees QTc Int : 431 ms Atrial fibrillation with rapid ventricular response Rightward axis Low voltage QRS Nonspecific T wave abnormality Abnormal ECG When compared with ECG of 26-OCT-2023 07:33, Vent. rate has increased BY 37 BPM Criteria for Septal infarct are no longer Present Confirmed by Junior Valle ([id number]) on 11/03/2023 5:47:29 AM Referred By: REFERRED SELF Confirmed By:Junior Valle
== END 2023-11-02 16:14 | DRG 308 ==
LOC: ED 13:16 → EDINP 15:09 → SUATTDRO 15:09 → 2S 17:06
DX: M41.9 Scoliosis, unspecified; I73.9 Peripheral vascular disease, unspecified; M06.9 Rheumatoid arthritis, unspecified; I11.0 Hypertensive heart disease with heart failure; J44.9 Chronic obstructive pulmonary disease, unspecified; R78.81 Bacteremia; D84.821 Immunodeficiency due to drugs; K21.9 Gastro-esophageal reflux disease without esophagitis; Z91.199 Patient's noncompliance with other medical treatment and regimen due to unspecified reason; R79.89 Other specified abnormal findings of blood chemistry; I48.19 Other persistent atrial fibrillation; Z79.52 Long term (current) use of systemic steroids; I50.43 Acute on chronic combined systolic (congestive) and diastolic (congestive) heart failure; I25.10 Atherosclerotic heart disease of native coronary artery without angina pectoris; F17.219 Nicotine dependence, cigarettes, with unspecified nicotine-induced disorders; Z79.01 Long term (current) use of anticoagulants; Z79.82 Long term (current) use of aspirin; I73.00 Raynaud's syndrome without gangrene; I48.21 Permanent atrial fibrillation; I25.2 Old myocardial infarction; B18.2 Chronic viral hepatitis C; R91.1 Solitary pulmonary nodule; B95.8 Unspecified staphylococcus as the cause of diseases classified elsewhere

== ENCOUNTER 2023-11-26 14:17 | Inpatient (IN) ==
--- NOTE | 2023-11-26 14:32 | Emergency Department Note ---
Impression & Plan Cellulitis, Elevated troponin I level ED Provider Note NAME: STEVAN GOFF Sr AGE: 58 SEX: M : 1965 ARRIVES VIA: Ambulance INFORMANT: Patient, EMS ED PROVIDER(S): Skyler Miranda DO CHIEF COMPLAINT: Leg pain HPI: The patient is a 58-year-old male who currently resides in alf who presents emergency department for left leg pain. The patient has swelling and redness in the back of his left leg. He is also noted some shortness of breath. He denies having any chest pain or fever. He had nausea but no vomiting. He thinks he may have injured his left leg a few days ago but is unsure. ROS: See above HPI for pertinent positives & negatives. A total of 10 systems reviewed and were otherwise negative. PAST MEDICAL HISTORY: See Below PAST SURGICAL HISTORY: See Below FAMILY HISTORY: See Below SOCIAL HISTORY: See Below HOME MEDICATIONS: See Below ALLERGIES: See Below VITALS: See Below PHYSICAL EXAMINATION: GENERAL: Patient is awake alert in no acute distress patient is resting comfortably and showing no signs of anxiety EYES: The conjunctivae are clear. The pupils are round and reactive. EARS, NOSE, MOUTH AND THROAT: The nose is without any evidence of any deformity. NECK: The neck is nontender and supple. RESPIRATORY: Normal respiratory effort is noted there is no evidence of wheezing rhonchi or rales CARDIOVASCULAR: Regular rate and rhythm noted there no murmurs rubs or gallops normal S1 normal S2. GASTROINTESTINAL: The abdomen is soft. Abdomen is nontender. MUSCULOSKELETAL/EXTREMITIES: There is no evidence of gross deformity full range of motion is noted in the hips and shoulders. SKIN: There is a petechial rash noted on both lower extremities. There is a right partial great toe amputation noted. There is erythema surrounding this. There is a an area in the left calf that is blistered and erythematous. It has the appearance of cellulitis. NEUROLOGIC: Patient is awake alert and oriented x3. MEDICAL DECISION MAKING: The patient is a 58-year-old male who presented to the emergency department for an evaluation of left leg swelling. The patient had bullae as well as signs of cellulitis. I discussed the patient's laboratory and radiographic studies with him. He was treated with IV pain medication and IV antibiotics. He was also treated with IV fluids. The patient was feeling much better on reevaluation. Given his comorbidities I do feel the patient would be a better candidate for inpatient management. For this reason I [facility] have agreed to evaluate the patient in the emergency department for further management and disposition. Triage Nursing notes reviewed. Prior medical records reviewed Vital Signs: reviewed and remarkable for tachycardia. Differential diagnosis: Cellulitis, abscess, MRSA infection, DVT, necrotizing fasciitis, dermatitis, drug eruption, allergic reaction, as well as other pathologies. ER treatment provided: See below Diagnostics interpreted by me: ECG: EKG was obtained in the emergency department. My interpretation is atrial fibrillation at 119 bpm. PVCs were noted. Low voltage was noted throughout. Diffuse ST segment depressions were noted. This was compared to a tracing from October 31, 2023. No changes were noted. Cardiac Monitoring: An order was placed for continuous cardiac monitoring. The monitor shows a rate of 103 bpm with sinus tachycardia Laboratory studies: As stated above and show below. Imaging studies: See below. Radiographic imaging was reviewed by myself Consultation(s): I discussed this case with Mayuri who [facility] will evaluate the patient in the emergency department. Past Med/Surg History Problem List Elevated troponin I level (Acute) Cellulitis (Acute) Cellulitis of left lower extremity History of osteomyelitis Positive blood cultures Medical non-compliance COPD (chronic obstructive pulmonary disease) Leg swelling (Acute) Atrial fibrillation with rapid ventricular response (Acute) Drug use Syncope and collapse Status post incision and drainage Osteomyelitis of great toe of right foot Encounter for pre-operative examination Toe pain, right Open wound of right great toe with damage to nail Depressive disorder Thought disorder (Acute) Necrosis of toe (Acute) Elevated troponin (Acute) Permanent atrial fibrillation Chronic combined systolic and diastolic CHF (congestive heart failure) Raynauds disease PAD (peripheral artery disease) HTN (hypertension) Hepatitis C Acute on chronic heart failure with reduced ejection fraction and diastolic dysfunction HFrEF (heart failure with reduced ejection fraction) Anemia (Acute) Lung nodules LEVIN (dyspnea on exertion) (Acute) Elevated troponin (Acute) Elevated brain natriuretic peptide (BNP) level (Acute) Congestive heart failure (Acute) Atrial fibrillation with rapid ventricular response (Acute) COVID CAD (coronary artery disease) SOB (shortness of breath) Chest pain Dyspnea Cardiomyopathy NSTEMI (non-ST elevated myocardial infarction) (Acute) Cavitary lesion of lung Systolic heart failure Abnormal echocardiogram Elevated troponin Abnormal CT of the chest (Acute) Chronic steroid use (Chronic) Long-term use of high-risk medication Rheumatoid arthritis (Chronic) Pulmonary nodule (Acute) SOB (shortness of breath) Non-ST elevation NE (NSTEMI) (Acute) GERD (gastroesophageal reflux disease) Osteoarthritis of right knee (Chronic) Status post right knee replacement (Acute) Medical History Pre-diabetes Erectile dysfunction Tobacco use disorder Surgical History History of cardiac cath History of colonoscopy Hx of tonsillectomy Family History Other Heart disease Hypertension Social History Smoking Status: Current every day smoker Tobacco Type: Cigarettes Cigarettes Per Day: 1; Second Hand Exposure: Yes; Do You Dip or Chew Tobacco: No; Hx Alcohol Use: No Hx Substance Use: No Preferred Language: Serbian Communication Ability: Effective [employer] Required: No Beliefs That Will Affect Care: None Current Living Situation: Family and Significant Other Current Living Situation Comment: Lives at home with girlfriend Hayley, & their child Danica Feels Safe at Home: Yes Assistive Devices: Cane, Walker and Wheelchair Allergies Allergies Allergy/AdvReac Type Severity Reaction Status Date / Time No Known Allergies Allergy Verified 10/24/23 16:32 Home Meds Home Medications Medication Instructions Recorded Confirmed aspirin 81 mg tablet,delayed 81 mg PO QAM 04/04/21 11/26/23 release (Bob Low Dose Aspirin) omeprazole 40 mg capsule,delayed 40 mg PO DAILYBB 04/04/21 11/26/23 release nitroglycerin 0.4 mg sublingual 0.4 mg sublingual .PRN/UD PRN 08/27/21 11/26/23 tablet Chest Pain rosuvastatin 5 mg tablet 5 mg PO QAM 08/27/21 11/26/23 tiotropium bromide 2.5 2 inh inhalation QAM 04/06/22 11/26/23 mcg/actuation mist for inhalation (Spiriva Respimat) alendronate 70 mg tablet 70 mg PO WK 07/05/22 11/26/23 cholecalciferol (vitamin D3) 10 10 mcg PO QAM 08/13/23 11/26/23 mcg (400 unit) capsule (Vitamin D3) digoxin 125 mcg (0.125 mg) tablet 0.125 mcg PO QAM 08/13/23 11/26/23 empagliflozin 10 mg tablet 10 mg PO QAM 08/13/23 11/26/23 (Jardiance) escitalopram oxalate 10 mg tablet 10 mg PO QAM 08/13/23 11/26/23 ondansetron HCl 4 mg tablet 4 mg PO Q8H PRN Nausea 08/13/23 11/26/23 sarilumab 200 mg/1.14 mL 200 mg subcut .[id number] 08/13/23 11/26/23 subcutaneous pen injector (Juliana) sulfasalazine 500 mg tablet 1,000 mg PO BID 08/13/23 11/26/23 duloxetine 30 mg capsule,delayed 30 mg PO QAM 10/24/23 11/26/23 release hydrocodone 10 mg-acetaminophen 1 tab PO Q6H PRN pain,severe 10/24/23 11/26/23 325 mg tablet furosemide 40 mg tablet 40 mg PO BID 11/26/23 11/26/23 metoprolol succinate 100 mg 150 mg PO AMHS 11/26/23 11/26/23 tablet,extended release 24 hr [id number] 300 mcg-K 60 1 tab PO QAM 11/26/23 11/26/23 mcg-lycop 600 mcg-lutein 300 mcg tablet (Centrum Silver Men) prednisone 5 mg tablet 5 - 10 mg PO DAILY RHEUMATOID 11/26/23 11/26/23 ARTHRITIS sacubitril 24 mg-valsartan 26 mg 0.5 tab PO AMHS 11/26/23 11/26/23 tablet (Entresto) spironolactone 25 mg tablet 12.5 mg PO QAM 11/26/23 11/26/23 Previous Rx's Medication Instructions Recorded apixaban 5 mg tablet (Eliquis) 5 mg PO BID #60 tabs 07/10/22 magnesium oxide 400 mg (241.3 mg 400 mg PO BID 15 days #30 tabs 08/30/23 magnesium) tablet Results & Data (ED) Vital Signs Vital Signs - 24 hr 11/26/23 14:29 11/26/23 14:45 11/26/23 15:03 Temperature 36.8 C Temperature Source Oral Pulse Rate 113 H 103 H 105 H Pulse Rate from SpO2 Sensor 115 H Pulse Rhythm Regular Pulse Strength Normal Respiratory Rate 20 24 Respiratory Effort / Characteristics Non-Labored Spontaneous Respiratory Depth Normal Respiratory Pattern Regular Blood Pressure 113/77 117/87 Blood Pressure Mean 89 97 Blood Pressure Position Semi-fowlers Pulse Oximetry 97 99 Oxygen Delivery Method Room Air Room Air Sepsis Recent Fever Within 48 Hours No Sepsis New/Unexplained Change in Mental Status No Sepsis Action Taken by Nursing No Action Required 11/26/23 15:13 11/26/23 15:30 11/26/23 16:00 Temperature Temperature Source Pulse Rate 103 H 112 H 106 H Pulse Rate from SpO2 Sensor 119 H Pulse Rhythm Regular Pulse Strength Respiratory Rate 20 26 H 20 Respiratory Effort / Characteristics Respiratory Depth Respiratory Pattern Blood Pressure 123/87 121/94 Blood Pressure Mean 99 108 Blood Pressure Position Pulse Oximetry 97 97 93 Oxygen Delivery Method Room Air Room Air Room Air Sepsis Recent Fever Within 48 Hours Sepsis New/Unexplained Change in Mental Status Sepsis Action Taken by Nursing 11/26/23 16:30 11/26/23 17:39 11/26/23 18:17 Temperature Temperature Source Pulse Rate 112 H 106 H 99 H Pulse Rate from SpO2 Sensor 123 H 93 H Pulse Rhythm Pulse Strength Respiratory Rate 20 20 Respiratory Effort / Characteristics Respiratory Depth Respiratory Pattern Blood Pressure 121/85 114/87 Blood Pressure Mean 97 96 Blood Pressure Position Pulse Oximetry 90 96 Oxygen Delivery Method Room Air Room Air Sepsis Recent Fever Within 48 Hours Sepsis New/Unexplained Change in Mental Status Sepsis Action Taken by Nursing 11/26/23 18:33 11/26/23 19:03 11/26/23 19:30 Temperature Temperature Source Pulse Rate 100 H 103 H 92 H Pulse Rate from SpO2 Sensor 104 H 108 H 100 H Pulse Rhythm Pulse Strength Respiratory Rate 16 24 20 Respiratory Effort / Characteristics Respiratory Depth Respiratory Pattern Blood Pressure 113/72 121/74 131/74 Blood Pressure Mean 85 89 93 Blood Pressure Position Pulse Oximetry 96 92 92 Oxygen Delivery Method Room Air Room Air Room Air Sepsis Recent Fever Within 48 Hours Sepsis New/Unexplained Change in Mental Status Sepsis Action Taken by Long-Term Medications Current Medication List: was personally reviewed by me Laboratory Data Attestation: I reviewed the patient's lab results. 11/26/23 14:39 11/26/23 14:39 Lab Results 11/26/23 11/26/23 11/26/23 Range/Units 14:39 15:13 17:29 WBC 7.88 (4.8-10.8) K/ul RBC 4.72 (4.70-6.10) M/uL Hgb 11.3 L (14.0-18.0) g/dl Hct 36.5 L (42.0-52.0) % MCV 77.3 L (80.0-100.0) fL MCH 23.9 L (25.0-34.0) pg MCHC 31.0 L (32.0-36.0) g/dL RDW Std Deviation 59.5 H (36.4-46.3) fL RDW Coeff of Alex 21.4 H (11.5-14.5) % Plt Count 397 (130-400) K/uL MPV 9.4 (9.4-12.4) fL Immature Gran % (Auto) 0.5 % Neut % (Auto) 72.7 % Lymph % (Auto) 12.1 % [place] % (Auto) 5.6 % Eos % (Auto) 8.8 % Baso % (Auto) 0.3 % Neut # (Auto) 5.74 (1.40-6.50) K/uL Lymph # (Auto) 0.95 L (1.20-3.40) K/uL [place] # (Auto) 0.44 (0.11-0.59) K/uL Eos # (Auto) 0.69 H (0.00-0.50) K/uL Baso # (Auto) 0.02 (0.00-0.20) K/uL Immature Gran # (Auto) 0.04 (0.01-0.20) K/uL Anisocytosis Present Ovalocytes 1+ PT 11.3 (9.0-12.0) Seconds INR 1.0 (0.9-1.1) APTT 27 (21-31) Seconds PTT Ratio 1.0 VBG pH 7.38 (7.36-7.41) VBG pCO2 45 (38-50) mmHg VBG pO2 25 mmHg VBG HCO3 27 mmol/L VBG O2 Saturation < 60.0 % VBG Base Excess 1.0 mEq/L Sodium 135 L (136-145) mmol/L Potassium 3.5 (3.5-5.1) mmol/L Chloride 102 (98-107) mmol/L Carbon Dioxide 26 (21-32) mmol/L Anion Gap 7 (3-11) BUN 17 (6-23) mg/dl Creatinine 0.67 (0.6-1.4) mg/dl Est Cr Clr Drug Dosing 136.0 ml/min Est GFR ( Amer) 121.9 ml/min Est GFR (Non-Af Amer) 105.2 ml/min BUN/Creatinine Ratio 25.4 H (10-20) Glucose 90 (70-99(Fasting)) mg/dl Lactate 2.2 H* 1.4 (0.4-2.0) mmol/L Calcium 9.1 (8.6-10.3) mg/dl Magnesium 1.7 (1.7-2.4) mg/dl Total Bilirubin 0.4 (0.2-1.0) mg/dl Direct Bilirubin 0.2 (0-0.2) mg/dl AST 13 (13-39) U/L ALT 9 (7-52) U/L Alkaline Phosphatase 57 (34-104) U/L Troponin I High Sens 88.8 H* 89.4 H* (0-20) pg/ml Total Protein 7.2 (6.0-8.3) gm/dl Albumin 3.2 L (3.4-5.0) gm/dl Procalcitonin 0.03 (0-0.5) ng/ml Administered Medications Discontinued Medications Piperacillin Sod/Tazobactam Sod (Zosyn) 4.5 gm in 100 mls @ 200 mls/hr IV NOW ONE Stop: 11/26/23 15:52 Last Infusion: 11/26/23 17:03 Dose: Infused Documented By: Admin: 11/26/23 15:31 Dose: 200 mls/hr Documented By: JUSTIN Sodium Chloride (Nss) 1,000 mls @ 999 mls/hr IV .Q1H1M ONE Stop: 11/26/23 16:23 Last Infusion: 11/26/23 17:03 Dose: Infused Documented By: [facility] Admin: 11/26/23 15:31 Dose: 999 mls/hr Documented By: JUSTIN Sodium Chloride (Nss) 1,000 mls @ 999 mls/hr IV .Q1H1M ONE Stop: 11/26/23 18:21 Last Infusion: 11/26/23 19:08 Dose: Infused Documented By: [facility] Admin: 11/26/23 17:32 Dose: 999 mls/hr Documented By: SAAD Sodium Chloride (Nss) 500 mls @ 999 mls/hr IV .Q31M ONE Stop: 11/26/23 17:51 Last Infusion: 11/26/23 19:08 Dose: Infused Documented By: [facility] Admin: 11/26/23 18:28 Dose: 999 mls/hr Documented By: JUSTIN Magnesium Sulfate/Dextrose (Magnesium Sulfate / D5w) 1 gm in 100 mls @ 100 mls/hr IV NOW STA Stop: 11/26/23 20:07 Last Admin: 11/26/23 20:08 Dose: 100 mls/hr Documented By: SAAD Morphine Sulfate (Morphine Sulfate 4 Mg/Ml 1 Ml Carp\Vial) 4 mg IV NOW STA Stop: 11/26/23 15:24 Last Admin: 11/26/23 15:30 Dose: 4 mg Documented By: JUSTIN Ondansetron HCl (Ondansetron Inj 2 Mg/Ml 2 Ml Vial) 4 mg IV NOW STA Stop: 11/26/23 15:24 Last Admin: 11/26/23 15:31 Dose: 4 mg Documented By: JUSTIN Potassium Chloride (Potassium Chloride Crtab 20 Meq Tabcr) 40 meq PO NOW STA Stop: 11/26/23 19:09 Last Admin: 11/26/23 20:08 Dose: 40 meq Documented By: [facility] Imaging Data Attestation: I personally reviewed and interpreted this imaging study as follows: My Impression: 1 view chest x-ray was obtained in the emergency department. My interpretation is no free air or definite infiltrate, final report below. Radiologist's Impression: Chest X-Ray 11/26/23 14:28 XR chest 1V portable CLINICAL HISTORY: Sepsis TECHNIQUE: Single frontal radiograph of the chest was obtained. Comparison: Comparison is made to chest radiograph 10/24/2023 FINDINGS: No lines and tubes are seen. Cardiomegaly is noted. The aortic arch is calcified. The lungs are clear. No evidence of pleural effusion or pneumothorax. IMPRESSION: No acute chest disease. Cardiomegaly is noted. ACT 112: Negative or not required by law. Electronically signed by: Ney Small M.D. 11/26/2023 3:05 PM Tibia/Fibula X-Ray 11/26/23 14:28 XR tibia fibula LT 2V CLINICAL HISTORY: Left leg swelling. COMPARISON STUDY: Left knee radiograph 02/20/2011. FINDINGS: Focal deformity and depression within the lateral tibial plateau likely representing an old tibial plateau fracture. There appears to be a focal hyperdensity within the proximal tibia suggestive of prior cement placement. The left tibial plateau fracture demonstrates up to 1 cm of depression. This appears to be chronic. No acute fracture or dislocation within the left tibia or fibula. There is mild soft tissue swelling/edema within the left lower leg. Mild vascular calcifications. No radiopaque foreign bodies. IMPRESSION: 1. Mild soft tissue swelling/edema within the left lower leg. 2. Focal deformity and approximately 1 cm of depression within the lateral tibial plateau likely representing an old, healed fracture. No definite acute fractures within the left lower leg. 3. Focal hyperdensity within the proximal tibia suggestive of prior cement placement. ACT 112: Negative or not required by law. Electronically signed by: Spencer Christianson M.D. 11/26/2023 3:09 PM Discharge Plan Visit Data Chief Complaint: Infection Stated Complaint: INFECTION TO LAC ON LEFT CALF ED Provider: Skyler Miranda Discharge Problem: Cellulitis, Elevated troponin I level Patient Disposition: Being Evaluated by Hospitalist Discharge Instructions Interventions: ED Discharge Assessment Last Done: 11/26/23 20:00 Forms Stand Alone Forms: My [facility] Prescriptions Prescriptions: No Action rosuvastatin 5 mg tablet 5 mg PO QAM nitroglycerin 0.4 mg tablet, sublingual 0.4 mg sublingual .PRN/UD PRN (Reason: Chest Pain) Rx Instructions: NEEDED FOR CHEST PAIN : ONE TABLET UNDER THE TONGUE EVERY 5 MINUTES UP TO THREE DOSES. omeprazole 40 mg capsule,delayed release(DR/EC) 40 mg PO DAILYBB aspirin [Bob Low Dose Aspirin] 81 mg Tablet,Delayed Release (Dr/Ec) 81 mg PO QAM Spiriva Respimat 2.5 mcg/actuation mist 2 inh INHALATION QAM alendronate 70 mg tablet 70 mg PO WK Rx Instructions: TAKE THIS MED EVERY sunday Eliquis 5 mg tablet 5 mg PO BID Qty: 60 0RF sulfasalazine 500 mg tablet 1,000 mg PO BID ondansetron HCl 4 mg tablet 4 mg PO Q8H PRN (Reason: Nausea) digoxin 125 mcg (0.125 mg) tablet 0.125 mcg PO QAM cholecalciferol (vitamin D3) [Vitamin D3] 10 mcg (400 unit) Capsule 10 mcg PO QAM escitalopram oxalate 10 mg tablet 10 mg PO QAM Jardiance 10 mg tablet 10 mg PO QAM Kevzara 200 mg/1.14 mL pen injector 200 mg SUBCUT .[id number] magnesium oxide 400 mg (241.3 mg magnesium) Tablet 400 mg PO BID 15 Days Qty: 30 1RF hydrocodone-acetaminophen 10-325 mg tablet 1 tab PO Q6H PRN (Reason: pain,severe) duloxetine 30 mg capsule,delayed release(DR/EC) 30 mg PO QAM Entresto 24-26 mg tablet 0.5 tab PO AMHS spironolactone 25 mg tablet 12.5 mg PO QAM metoprolol succinate 100 mg tablet extended release 24 hr 150 mg PO AMHS Rx Instructions: 1 & 1/2 tablet dose furosemide 40 mg tablet 40 mg PO BID prednisone 5 mg tablet 5 - 10 mg PO DAILY Centrum Silver Men [id number] mcg Tablet 1 tab PO QAM Referrals Referrals: Anahy Grayson MD [Primary Care Provider] -
--- NOTE | 2023-11-26 15:06 | XRay Report ---
XR chest 1V portable CLINICAL HISTORY: Sepsis TECHNIQUE: Single frontal radiograph of the chest was obtained. Comparison: Comparison is made to chest radiograph 10/24/2023 FINDINGS: No lines and tubes are seen. Cardiomegaly is noted. The aortic arch is calcified. The lungs are clear . No evidence of pleural effusion or pneumothorax. IMPRESSION: No acute chest disease. Cardiomegaly is noted. ACT 112: Negative or not required by law. Electronically signed by: Ney Small M.D. 11/26/2023 3:05 PM
--- NOTE | 2023-11-26 15:11 | XRay Report ---
XR tibia fibula LT 2V CLINICAL HISTORY: Left leg swelling. COMPARISON STUDY: Left knee radiograph 02/20/2011. FINDINGS: Focal deformity and depression within the lateral tibial plateau likely representing an old tibial plateau fracture. There appears to be a focal hyperdensity within the proximal tibia suggesti ve of prior cement placement. The left tibial plateau fracture demonstrates up to 1 cm of depression. This appears to be chronic. No acute fracture or dislocation within the left tibia or fibula. There is mild soft tissue swelling/edema within the left lower leg. Mild vascular calcifications. No radiop aque foreign bodies. IMPRESSION: 1. Mild soft tissue swelling/edema within the left lower leg. 2. Focal deformity and approximately 1 cm of depression within the lateral tibial plateau likely repr esenting an old, healed fracture. No definite acute fractures within the left lower leg. 3. Focal hyperdensity within the proximal tibia suggestive of prior cement placement. ACT 112: Negative or not required by law. Electronically signed by: Spencer Christianson M.D. 11/26/2023 3:09 PM
[2023-11-26 15:22] LABS: Basophils # (auto) 0.02 K/uL (0.00-0.20); Basophils % (auto) 0.3 %; Eosinophils # (auto) 0.69 K/uL (0.00-0.50); Eosinophils % (auto) 8.8 %; Hematocrit (blood only) 36.5 % (42.0-52.0); Hemoglobin 11.3 g/dl (14.0-18.0); Immature Granulocytes # (auto) 0.04 K/uL (0.01-0.20); Immature Granulocytes % (auto) 0.5 %; Lymphocytes # (auto) 0.95 K/uL (1.20-3.40); Lymphocytes % (auto) 12.1 %; Mean Corpuscular Hemoglobin 23.9 pg (25.0-34.0); Mean Corpuscular Volume 77.3 fL (80.0-100.0); Mean Platelet Volume 9.4 fL (9.4-12.4); Monocytes # (auto) 0.44 K/uL (0.11-0.59); Monocytes % (auto) 5.6 %; Neutrophils # (auto) 5.74 K/uL (1.40-6.50); Neutrophils % (auto) 72.7 %; Platelet Count 397 K/uL (130-400); RDW Coefficient of Variation 21.4 % (11.5-14.5); RDW Standard Deviation 59.5 fL (36.4-46.3); Red Blood Count 4.72 M/uL (4.70-6.10); White Blood Count 7.88 K/ul (4.8-10.8)
[2023-11-26 15:23] LABS: HCO3 VBG 27 mmol/L; Oxygen Saturation VBG < 60.0 %; PCO2 VBG 45 mmHg (38-50); PO2 VBG 25 mmHg; pH VBG 7.38 (7.36-7.41)
[2023-11-26] MEDS: MoRPHine SULFATE 4 MG/ML 1 ML CARP\\VIAL IV STA (15:30)
[2023-11-26] MEDS: ONDANSETRON INJ 2 MG/ML 2 ML VIAL IV STA (15:31)
[2023-11-26] MEDS: PIPERACILLIN/TAZOBACTAM 4.5 GM/100 ML BAG IV ONE (15:31)
[2023-11-26] MEDS: SODIUM CHLORIDE 0.9% 1,000 ML IV ONE ×2 (15:31→17:32)
[2023-11-26 15:32] LABS: Partial Thromboplastin Time 27 Seconds (21-31); Prothrombin Time 11.3 Seconds (9.0-12.0)
[2023-11-26 15:39] LABS: Anisocytosis Present; Ovalocytes 1+
[2023-11-26 15:42] LABS: Albumin Level 3.2 gm/dl (3.4-5.0); BUN Creatinine Ratio 25.4 (10-20); Bilirubin Direct 0.2 mg/dl (0-0.2); Bilirubin,Total 0.4 mg/dl (0.2-1.0); Calcium 9.1 mg/dl (8.6-10.3); Est GFR (African American) 121.9 ml/min; Est GFR (Non-African American) 105.2 ml/min; Magnesium 1.7 mg/dl (1.7-2.4); Potassium 3.5 mmol/L (3.5-5.1); Total Protein 7.2 gm/dl (6.0-8.3)
[2023-11-26 15:58] LABS: Troponin I High Sensitivity 88.8 pg/ml (0-20)
[2023-11-26] MEDS: SODIUM CHLORIDE 0.9% 500 ML IV ONE (18:28)
--- NOTE | 2023-11-26 18:37 | History & Physical Report ---
Date of Service November 26, 2023 Assessment & Plan (1) Cellulitis of left lower extremity: (2) Atrial fibrillation with rapid ventricular response: (3) Elevated troponin: (4) Chronic combined systolic and diastolic CHF (congestive heart failure): (5) HFrEF (heart failure with reduced ejection fraction): (6) PAD (peripheral artery disease): (7) Rheumatoid arthritis: Plan 58-year-old male with past medical history significant for COPD, lung nodules, peripheral artery disease, chronic systolic CHF, history of SVT, small vessel disease, frequent PVCs, persistent atrial fibrillation, GERD, degenerative's disease, scoliosis, osteoporosis, rheumatoid arthritis involving multiple sites with positive rheumatoid factor, immunodeficiency due to drugs, moderate episode of recurrent depression, erectile dysfunction, tobacco use disorder, hepatitis C virus infection cured after antiviral drug therapy, long-term systemic steroid user Who reports to ED secondary to left lower extremity redness and pain for 2 days. Cellulitis of left lower extremity admit to [facility] skin marker utilized in ED evidence of open blister that de roofed, unknown trauma ? dog/cat scratch no signs of sepsis continue IV zosyn, consult wound care with evidence of b/l petechiae, plts stable, ? if vasculitis component, if no improvement consider ANCA/complement work up given hx of RA blood and wound culture pending Elevated troponin pt with chronic elevation in the past no report of chest pain, 2hr trop flat will cycle for completeness, ecg in a.m Chronic systolic/diastolic CHF CAD PAD follows M.dot cards, daily weights, strict intake and output euvolemic on exam continue lasix, aldactone, entresto, Jardiance, metoprolol, asa, statin Echo September 2023: EF of 50 to 55%, moderate dilatation of left atrium. Chronic atrial fibrillation continue metoprolol and eliquis pt missed a.m. dose, likely why rates uncontrolled, resume home meds will replace potassium and magnesium to try to keep mag > 2 and K > 4.0 Rheumatoid arthritis continue daily pred, also on Kevzara and sulfasalazine as outpt COPD no acute exac pt reports recently returned to smoking, encourage cessation Hep C s/p treatment DVT ppx: Eliquis Dispo: admit to [facility] for IV antibiotics and tele monitoring FULL CODE PCP: Renuka Pt was seen and examined in collaboration with Dr. Abarca, please see addendum A total of 76 minutes was spent coordinating, documenting, and providing care for this patient excluding time spent in the performance of separately billed services. This included personally viewing all current laboratories and imaging studies, medication reconciliation, outpatient chart review, and discussion with specialists. History of Present Illness Chief Complaint: LLE redness and pain for 2 days. Primary Care Provider: Anahy Grayson MD 58-year-old male with past medical history significant for COPD, lung nodules, peripheral artery disease, chronic systolic CHF, history of SVT, small vessel disease, frequent PVCs, persistent atrial fibrillation, GERD, degenerative's disease, scoliosis, osteoporosis, rheumatoid arthritis involving multiple sites with positive rheumatoid factor, immunodeficiency due to drugs, moderate episode of recurrent depression, erectile dysfunction, tobacco use disorder, hepatitis C virus infection cured after antiviral drug therapy, long-term systemic steroid user Who reports to ED secondary to left lower extremity redness and pain for 2 days. He reports pain and redness to his L leg. This started 1.5 days ago. He denies any trauma or fall. He states he has dogs at home that sometimes, "paw," at him, but he doesn't recall and steven scratches. He also has cats. He denies any known fever, chills or sweats. He feels the redness and pain has been getting worse over the last 2 days. He rates pain a 4/10. He has felt nauseated but no vomiting. He has been able to eat and drink. He does report some increased shortness of breath at rest and with exertion that is not normal for him. He denies any chest pain, cough, URI symptoms, palpitations, abdominal pain, change in his bowel or urinary habits. He states he did not take any medications today. He started smoking again 2 weeks due to his, "nerves." Of significance patient was recently hospitalized on 10/23 to 11/02/2023 [facility] to bacteremia. On initial presentation with a 4 blood cultures came back positive for GPC in chains and repeat blood cultures came back 1 and 4 positive for CONS, likely contaminant. He was seen and evaluated by infectious disease. Source was unclear. He completed 1 week of ceftriaxone inpatient and had no fever or leukocytosis post antibiotic. Initial culture was sent to lab as they could not identify it and later speciated to Moraxella. Infectious disease recommended no further antibiotics. His hospital course was complicated with a fibrillation with RVR as well as acute on chronic systolic and diastolic CHF. Cardiology was consulted who assisted with medication management and at discharge his metoprolol succinate was increased to 150 twice daily and home Entresto reduced to half a tablet twice daily due to hypotension. He was [facility] where he completed a course of rehab and was discharged home. His outpatient records were reviewed and he has not seen a primary care provider since discharge. In ED patient was hemodynamically stable. He was in atrial fibrillation his heart rates were in the low 100s. ED provider concern for left lower extremity cellulitis and therefore treated with IV Zosyn. He did have initial elevation in troponin 88 but this stayed relatively flat after 2 hours. Allergies Allergy/AdvReac Type Severity Reaction Status Date / Time No Known Allergies Allergy Verified 10/24/23 16:32 Home Medications Medication Instructions Recorded Confirmed Type aspirin 81 mg tablet,delayed 81 mg PO QAM 04/04/21 11/26/23 History release (Bob Low Dose Aspirin) omeprazole 40 mg capsule,delayed 40 mg PO DAILYBB 04/04/21 11/26/23 History release nitroglycerin 0.4 mg sublingual 0.4 mg sublingual .PRN/UD PRN 08/27/21 11/26/23 History tablet Chest Pain rosuvastatin 5 mg tablet 5 mg PO QAM 08/27/21 11/26/23 History tiotropium bromide 2.5 2 inh inhalation QAM 04/06/22 11/26/23 History mcg/actuation mist for inhalation (Spiriva Respimat) alendronate 70 mg tablet 70 mg PO WK 07/05/22 11/26/23 History apixaban 5 mg tablet (Eliquis) 5 mg PO BID #60 tabs 07/10/22 11/26/23 Rx cholecalciferol (vitamin D3) 10 10 mcg PO QAM 08/13/23 11/26/23 History mcg (400 unit) capsule (Vitamin D3) digoxin 125 mcg (0.125 mg) tablet 0.125 mcg PO QAM 08/13/23 11/26/23 History empagliflozin 10 mg tablet 10 mg PO QAM 08/13/23 11/26/23 History (Jardiance) escitalopram oxalate 10 mg tablet 10 mg PO QAM 08/13/23 11/26/23 History ondansetron HCl 4 mg tablet 4 mg PO Q8H PRN Nausea 08/13/23 11/26/23 History sarilumab 200 mg/1.14 mL 200 mg subcut .[id number] 08/13/23 11/26/23 History subcutaneous pen injector (Juliana) sulfasalazine 500 mg tablet 1,000 mg PO BID 08/13/23 11/26/23 History magnesium oxide 400 mg (241.3 mg 400 mg PO BID 15 days #30 tabs 08/30/23 11/26/23 Rx magnesium) tablet duloxetine 30 mg capsule,delayed 30 mg PO QAM 10/24/23 11/26/23 History release hydrocodone 10 mg-acetaminophen 1 tab PO Q6H PRN pain,severe 10/24/23 11/26/23 History 325 mg tablet furosemide 40 mg tablet 40 mg PO BID 11/26/23 11/26/23 History metoprolol succinate 100 mg 150 mg PO AMHS 11/26/23 11/26/23 History tablet,extended release 24 hr [id number] 300 mcg-K 60 1 tab PO QAM 11/26/23 11/26/23 History mcg-lycop 600 mcg-lutein 300 mcg tablet (Centrum Silver Men) prednisone 5 mg tablet 5 - 10 mg PO DAILY RHEUMATOID 11/26/23 11/26/23 History ARTHRITIS sacubitril 24 mg-valsartan 26 mg 0.5 tab PO AMHS 11/26/23 11/26/23 History tablet (Entresto) spironolactone 25 mg tablet 12.5 mg PO QAM 11/26/23 11/26/23 History Past Med/Surg History Problem List Cellulitis of left lower extremity History of osteomyelitis Positive blood cultures Medical non-compliance COPD (chronic obstructive pulmonary disease) Leg swelling (Acute) Atrial fibrillation with rapid ventricular response (Acute) Drug use Syncope and collapse Status post incision and drainage Osteomyelitis of great toe of right foot Encounter for pre-operative examination Toe pain, right Open wound of right great toe with damage to nail Depressive disorder Thought disorder (Acute) Necrosis of toe (Acute) Elevated troponin (Acute) Permanent atrial fibrillation Chronic combined systolic and diastolic CHF (congestive heart failure) Raynauds disease PAD (peripheral artery disease) HTN (hypertension) Hepatitis C Acute on chronic heart failure with reduced ejection fraction and diastolic dysfunction HFrEF (heart failure with reduced ejection fraction) Anemia (Acute) Lung nodules LEVIN (dyspnea on exertion) (Acute) Elevated troponin (Acute) Elevated brain natriuretic peptide (BNP) level (Acute) Congestive heart failure (Acute) Atrial fibrillation with rapid ventricular response (Acute) COVID CAD (coronary artery disease) SOB (shortness of breath) Chest pain Dyspnea Cardiomyopathy NSTEMI (non-ST elevated myocardial infarction) (Acute) Cavitary lesion of lung Systolic heart failure Abnormal echocardiogram Elevated troponin Abnormal CT of the chest (Acute) Chronic steroid use (Chronic) Long-term use of high-risk medication Rheumatoid arthritis (Chronic) Pulmonary nodule (Acute) SOB (shortness of breath) Non-ST elevation HI (NSTEMI) (Acute) GERD (gastroesophageal reflux disease) Osteoarthritis of right knee (Chronic) Status post right knee replacement (Acute) Medical History Pre-diabetes Erectile dysfunction Tobacco use disorder Surgical History History of cardiac cath History of colonoscopy Hx of tonsillectomy Family History Other Heart disease Hypertension Social History Smoking Status: Current every day smoker Tobacco Type: Cigarettes Cigarettes Per Day: 1; Second Hand Exposure: Yes; Do You Dip or Chew Tobacco: No; Hx Alcohol Use: No Hx Substance Use: No Preferred Language: French Communication Ability: Effective Placer Miner Required: No Beliefs That Will Affect Care: None Current Living Situation: Family and Significant Other Current Living Situation Comment: Lives at home with girlfriend Hayley, & their child Danica Feels Safe at Home: Yes Assistive Devices: Cane, Walker and Wheelchair Review of Systems Review of Systems: All systems reviewed & are unremarkable except as noted in HPI & below Physical Exam Physical Exam: please refer to Dr. Abarca addendum for physical exam findings. Results & Data Results & Data Vital Signs (Past 12 Hours) Vital Signs Temp Pulse Resp BP Pulse Ox O2 Del Method 11/26/23 16:00 106 H 20 121/94 93 Room Air 11/26/23 15:30 112 H 26 H 123/87 97 Room Air 11/26/23 15:13 103 H 20 97 Room Air 11/26/23 15:03 105 H 24 117/87 99 Room Air 11/26/23 14:45 36.8 C 103 H 20 113/77 97 Room Air 11/26/23 14:29 113 H Laboratory Results I have independently reviewed and interpreted patient's admitting labs including CBC, CMP, PTT, PT/INR, vbg, procal, lactate and troponin. Diagnostic Findings Chest X-Ray 11/26/23 14:28 XR chest 1V portable CLINICAL HISTORY: Sepsis TECHNIQUE: Single frontal radiograph of the chest was obtained. Comparison: Comparison is made to chest radiograph 10/24/2023 FINDINGS: No lines and tubes are seen. Cardiomegaly is noted. The aortic arch is calcified. The lungs are clear. No evidence of pleural effusion or pneumothorax. IMPRESSION: No acute chest disease. Cardiomegaly is noted. ACT 112: Negative or not required by law. Electronically signed by: Ney Small M.D. 11/26/2023 3:05 PM Tibia/Fibula X-Ray 11/26/23 14:28 XR tibia fibula LT 2V CLINICAL HISTORY: Left leg swelling. COMPARISON STUDY: Left knee radiograph 02/20/2011. FINDINGS: Focal deformity and depression within the lateral tibial plateau likely representing an old tibial plateau fracture. There appears to be a focal hyperdensity within the proximal tibia suggestive of prior cement placement. The left tibial plateau fracture demonstrates up to 1 cm of depression. This appears to be chronic. No acute fracture or dislocation within the left tibia or fibula. There is mild soft tissue swelling/edema within the left lower leg. Mild vascular calcifications. No radiopaque foreign bodies. IMPRESSION: 1. Mild soft tissue swelling/edema within the left lower leg. 2. Focal deformity and approximately 1 cm of depression within the lateral tibial plateau likely representing an old, healed fracture. No definite acute fractures within the left lower leg. 3. Focal hyperdensity within the proximal tibia suggestive of prior cement placement. ACT 112: Negative or not required by law. Electronically signed by: Spencer Christianson M.D. 11/26/2023 3:09 PM Medications Administered Medication List Discontinued Medications Piperacillin Sod/Tazobactam Sod (Zosyn) 4.5 gm in 100 mls @ 200 mls/hr IV NOW ONE Stop: 11/26/23 15:52 Last Infusion: 11/26/23 17:03 Dose: Infused [place]ed [place] [facility] [place]: 11/26/23 15:31 Dose: 200 mls/hr Documented By: JUSTIN Sodium Chloride (Nss) 1,000 mls @ 999 mls/hr IV .Q1H1M ONE Stop: 11/26/23 16:23 Last Infusion: 11/26/23 17:03 Dose: Infused Documented By: [facility] [place]: 11/26/23 15:31 Dose: 999 mls/hr Documented By: JUSTIN Sodium Chloride (Nss) 1,000 mls @ 999 mls/hr IV .Q1H1M ONE Stop: 11/26/23 18:21 Last Admin: 11/26/23 17:32 Dose: 999 mls/hr Documented By: SAAD Sodium Chloride (Nss) 500 mls @ 999 mls/hr IV .Q31M ONE Stop: 11/26/23 17:51 Last Admin: 11/26/23 18:28 Dose: 999 mls/hr Documented By: JUSTIN Morphine Sulfate (Morphine Sulfate 4 Mg/Ml 1 Ml Carp\\Vial) 4 mg IV NOW STA Stop: 11/26/23 15:24 Last Admin: 11/26/23 15:30 Dose: 4 mg Documented By: JUSTIN Ondansetron HCl (Ondansetron Inj 2 Mg/Ml 2 Ml Vial) 4 mg IV NOW STA Stop: 11/26/23 15:24 Last Admin: 11/26/23 15:31 Dose: 4 mg Documented By: JUSTIN ECG Additional Comments: I have independently reviewed and interpreted patient's admitting EKG which revealed: 119 atrial fib, qtc 464ms, pvc present no significant st t wave change COVID-19 Results Results COVID-19 Adm Lab Results: RBC 4.72 M/uL (4.70-6.10) 11/26/23 WBC 7.88 K/ul (4.8-10.8) 11/26/23 Hgb 11.3 g/dl (14.0-18.0) L 11/26/23 Hct 36.5 % (42.0-52.0) L 11/26/23 Plt Count 397 K/uL (130-400) 11/26/23 Neutrophils (%) (Auto) 72.7 % 11/26/23 Lymphocytes (%) (Auto) 12.1 % 11/26/23 Monocytes # (Auto) 0.44 K/uL (0.11-0.59) 11/26/23 Eosinophils # (Auto) 0.69 K/uL (0.00-0.50) H 11/26/23 Immature Granulocyte % (Auto) 0.5 % 11/26/23 Neutrophils # (Auto) 5.74 K/uL (1.40-6.50) 11/26/23 Lymphocytes # (Auto) 0.95 K/uL (1.20-3.40) L 11/26/23 Monocytes # (Auto) 0.44 K/uL (0.11-0.59) 11/26/23 Eosinophils # (Auto) 0.69 K/uL (0.00-0.50) H 11/26/23 Basophils # (Auto) 0.02 K/uL (0.00-0.20) 11/26/23 Immature Granulocyte # (Auto) 0.04 K/uL (0.01-0.20) 4 Anisocytosis Present 11/26/23 Ovalocytes 1+ 11/26/23 Na 135 mmol/L (136-145) L 11/26/23 K 3.5 mmol/L (3.5-5.1) 11/26/23 Cl 102 mmol/L (98-107) 11/26/23 CO2 26 mmol/L (21-32) 11/26/23 Anion Gap 7 (3-11) 11/26/23 BUN 17 mg/dl (6-23) 11/26/23 Creatinine 0.67 mg/dl (0.6-1.4) 11/26/23 BUN/Creatinine Ratio 25.4 (10-20) H 11/26/23 Glucose Level 90 mg/dl (70-99(Fasting)) 11/26/23 Ca 9.1 mg/dl (8.6-10.3) 11/26/23 Total Bilirubin 0.4 mg/dl (0.2-1.0) 11/26/23 Direct Bilirubin 0.2 mg/dl (0-0.2) 11/26/23 AST/SGOT 13 U/L (13-39) 11/26/23 ALT/SGPT 9 U/L (7-52) 11/26/23 Alkaline Phosphatase 57 U/L (34-104) 11/26/23 Total Protein 7.2 gm/dl (6.0-8.3) 11/26/23 Albumin 3.2 gm/dl (3.4-5.0) L 11/26/23 Procalcitonin 0.03 ng/ml (0-0.5) 11/26/23 PTT 27 Seconds (21-31) 11/26/23 INR 1.0 (0.9-1.1) 11/26/23 Chest X-Ray 11/26/23 Code Status & VTE Plan Code Status FULL CODE VTE Prophylaxis Plan VTE Prophylaxis will be ordered: No Reason for no VTE drug order: Treatment not indicated Supervising Physician Co-Signing Physician Notes Patient was seen and examined with Mayuri GONGORA at bedside. Chart reviewed. Case discussed with Mayuri GONGORA and agree with the documentation above. In summary, this is a 58 year old male who is being admitted for left leg wound with cellulitis for 2 days. States had white pus. Possibly due to injury from his pets. Afebrile, hemodynamically stable, labs including WBC, procal and lactate normal. Trop mildly elevated, likely demand ischemia. Xray tibia fibula with mild soft tissue swelling/edema in left lower leg. Cellulitis area was marked. Given ivf and zosyn in the ED. Will continue zosyn, send pus culture when drainage, follow blood culture. Monitor cellulitis for improvement. Other chronic medical conditions stable. Rest as per the note above. On exam- General: Lying comfortably in bed, not in distress, on room air HEENT: EOMI, FLORENCIA, MMM Chest: Clear breath sounds bilaterally, no wheezes or crackles CVS: Irregular rate and rhythm, normal heart sounds, no murmur Abdomen: Soft, non tender, not distended, normal bowel sounds Neuro: Awake, alert, oriented, conversing well, non focal Skin: Left leg wound with dried blood with surrounding erythema and tenderness, no fluctuance, no active discharge during my encounter. Bilateral legs with jayashree chiae.
[2023-11-26] MEDS: MAGNESIUM SULFATE / D5W 1 GM/100 ML BAG IV STA (20:08)
[2023-11-26] MEDS: POTASSIUM CHLORIDE CRTAB 20 MEQ TABCR PO STA (20:08)
[2023-11-26 20:28] LABS: Appearance Urine Clear (Clear); Bacteria Urine Automated None Seen (None Seen); Bilirubin Urine Negative (Negative); Blood Urine Negative (Negative); Cast Urine Automated 0-2 /lpf (0-2); Color Urine Yellow; Epithelial Cell Urine Auto 0-2 /hpf (0-2); Glucose Urine UA Negative (Negative); Ketones Urine Negative (Negative); Leukocyte Esterase Urine Negative (Negative); Nitrite Urine Negative (Negative); Protein Urine 1+ (Negative); RBC Urine Automated 0-2 /hpf (0-2); Specific Gravity Urine 1.022 (1.000-1.030); Urobilinogen Urine Negative (Negative); WBC Urine Automated 0-5 /hpf (0-5)
[2023-11-26] MEDS ORDERED: POLYETHYLENE (MIRALAX) 17 GM PACK PO PRN (20:47)
[2023-11-26] MEDS ORDERED: FAMOTIDINE 20 MG TAB PO PRN (20:47)
[2023-11-26] MEDS ORDERED: MELATONIN 3 MG TAB PO PRN (21:00)
[2023-11-26] MEDS: METOPROLOL SUCC 50MG EXT REL TAB PO SCH (22:00)
[2023-11-26] MEDS: APIXABAN 5 MG TABLET PO SCH (22:01)
[2023-11-26] MEDS: MAGNESIUM OXIDE 400 MG TAB PO SCH (22:01)
[2023-11-26] MEDS: sulfaSALAzine 500 MG TABLET PO SCH (22:02)
[2023-11-26] MEDS: FUROSEMIDE 40 MG TAB PO SCH (22:02)
[2023-11-26] MEDS: VALSARTAN/SACUBITRIL 26/24MG TAB PO SCH (22:04)
[2023-11-26] MEDS: HYDROcodone/ACETAMINOPHEN 10/325 TAB PO PRN (22:06)
[2023-11-26] MEDS: POTASSIUM CHLORIDE CRTAB 20 MEQ TABCR PO SCH (22:06)
[2023-11-26] MEDS: PIPERACILLIN/TAZOBACTAM 4.5 GM in DEXTROSE 5% MINI-B 100 ML IV SCH (22:07)
[2023-11-27] MEDS: SODIUM CHLORIDE 0.9% 500 ML IV SCH (01:11)
--- OUTSIDE RECORDS SUMMARY | 2023-11-27 04:00 | External Medical Summary | Summary of Care ---
Author Name Unknown Organization [facility] Address [address] [place] [address] Phone [phone] Care Team Providers Care Tradeshow Worker Name Role Phone Anahy Grayson MD Primary Care Provider [phone] Reason for Visit * Reason Onset Date Comments Medication Refill 11/21/2023 Encounter Details Date Type Department Care Team (Late st Contact Info) Description 11/21/2023 Telephone [facility] [address] [place] [address] Anahy Grayson MD [address] [place] [address] Medication Refill Allergies No known active allergiesdocumented as of this encounter (statuses as of 11/22/2023) Medications Medication Sig Dispensed Refills Start Date End Date Status Aspirin 81 MG Oral Tablet Delayed Release Take 1 Tablet by mouth in the morning. Active Vitamin D3 10 MCG (400 UNIT) Oral Tablet Take 1 Tablet by mouth in the morning. Active Centrum Silver 50+Men Oral Tablet Take 1 Tablet by mouth in the morning. Active oxygen IN GAS Use 2 L/min(Oxygen) as directed. Active Digoxin 125 MCG Oral Tablet (Lanoxin) Take 1 Tablet by mouth in the morning. 34 Tablet 11 08/08/2022 Active Rosuvastatin Calcium 5 MG Oral Tablet (Crestor)Indications :Coronary artery disease involving pamunkey coronary artery of pamunkey heart without angina pectoris,HFrEF (heart failure with reduced ejection fraction) ([facility]),HTN, goal below 140/90,Dyslipidemia, goal LDL [...] Active Sarilumab 200 MG/1.14ML Subcutaneous Solution Auto-injector (Vdancer)Indications :Rheumatoid arthritis involving multiple sites with positive rheumatoid factor ([facility]) Inject 1.14 mL under the skin every 14 days. 2.28 mL 11 03/05/2023 Active Omeprazole 40 MG Oral Capsule Delayed Release (PriLOSEC) Take 1 Capsule by mouth in the morning. 1 hour before the first meal of the day.. 90 Capsule 3 03/15/2023 Active Sildenafil Citrate 20 MG Oral Tablet (Revatio)Indications :Raynaud's disease with gangrene ([facility]) TAKE ONE TABLET BY MOUTH EVERY MORNING , 1 TABLET AT NOON AND 2 TABLETS BEFORE BEDTIME 90 Tablet 2 03/30/2023 Active sulfaSALAzine 500 MG Oral Tablet Delayed Release (Azulfidine Entab) Take 1 Tablet by mouth in the morning. 2 tablets twice daily. Active Jardiance 10 MG Oral Tablet (Empagliflozin)Indic ations:HFrEF (heart failure with reduced ejection fraction) ([facility]) TAKE 1 TABLET BY MOUTH EVERY MORNING 90 Tablet 3 05/08/2023 Active Furosemide 20 MG Oral Tablet (Lasix)Indications:H FrEF (heart failure with reduced ejection fraction) ([facility]) Take 2 Tablets by mouth in the morning. 180 Tablet 3 06/06/2023 Active Additional Information Patient taking differently:40 mg Oral Daily(AM),Pt takes 2 tabs every morning and additional 1 in the afternoon as needed for edema, Reported on 09/23/2023 predniSONE 5 MG Oral Tablet (Deltasone)Indicatio ns:Rheumatoid arthritis involving multiple sites with positive rheumatoid factor ([facility]) TAKE 1 TO 2 TABLETS BY MOUTH ONCE DAILY FOR RHEUMATOID ARTHRITIS 60 Tablet 5 08/01/2023 Active Escitalopram Oxalate 10 MG Oral Tablet (Lexapro) Take 1 Tablet by mouth in the morning. 30 Tablet 08/05/2023 Active Spironolactone 25 MG Oral Tablet (Aldactone)Indicatio ns:HTN, goal below 140/90 TAKE 1/2 TABLET BY MOUTH EVERY MORNING 45 Tablet 3 08/08/2023 Active Entresto 24-26 MG Oral Tablet (sacubitril-valsarta n 24-26 mg per tab)Indications:HTN, goal below 140/90,Frequent PVCs,HFrEF (heart failure with reduced ejection fraction) (HCC),PAF (paroxysmal atrial fibrillation) (HCC) TAKE 1 TABLET BY MOUTH TWICE DAILY EVERY MORNING AND BEFORE BEDTIME 180 Tablet 3 09/17/2023 Active Eliquis 5 MG Oral Tablet (Apixaban)Indication s:Persistent atrial fibrillation (HCC) TAKE 1 TABLET BY MOUTH TWICE DAILY 180 Tablet 10/08/2023 Active Alendronate Sodium 70 MG Oral Tablet (Fosamax) TAKE ONE TABLET BY MOUTH EVERY WEEK ON SUNDAY 12 Tablet 3 10/12/2023 Active Spiriva Respimat 2.5 MCG/ACT Inhalation Aerosol Solution (Tiotropium Capac Monohydrate) Inhale 2 Puffs by mouth in the morning. 4 g 11 10/26/2023 Active Metoprolol Succinate ER 100 MG Oral Tablet Extended Release 24 Hour (toPROL XL)Indications:Other cardiomyopathy (HCC) Take 1.5 Tablets by mouth in the morning and 1.5 Tablets before bedtime. 270 Tablet 3 11/16/2023 Active documented as of this encounter (statuses as of 11/22/2023) Active Problems Problem Noted Date Diagnosed Date Substance abuse 10/17/2023 Last Assessment & Plan: [facility] UDS + meth 08/12 Moderate episode [...] Cardiomyopathy 01/31/2022 DDD (degenerative disc disease), lumbar 09/06/20 22 Immunodeficiency due to drugs 01/31/2022 Age-related nuclear cataract, bilateral 02/01/20 Hepatitis C virus infection cured after antiviral drug therapy 02/12/2019 Overview: HCV treated; SVR confirmed 02/11/2019 Effusion of left knee 12/18/2018 Rheumatoid arthritis involvi ng multiple sites with positive rheumatoid factor 03/07/2018 Last Assessment & Plan: On génesisza Chronic low dose prednisone Prn percocet managed by PCP MEDICATION USE AGREEMENT 06/25/2017 Tear of lateral meniscus of knee 02/22/2016 Knee pain 12/27/2015 DJD (degenerative joint disease) 01/15/2014 Erectile dysfunction 01/15/2014 Tobacco use disorder 01/15/2014 documented as of this encounter (statuses as of 11/22/2023) Resolved Problems Problem Noted Date Diagnosed Date [...] as of this encounter (statuses as of 11/22/2023) Immunizations Name Administration Dates Next Due HepA [...] have money to get more. Never true Childcare Answer Date Recorded Do you feel overwhelmed with taking care of a child, family member or friend? Yes 12/15/2022 Does your family need help f inding childcare? (Household - for ages 0-17 years) Not on file 12/15/2022 Clothing Answer Date Recorded Have you been unable to get clothing when it was really needed? Yes 12/15/2022 Is your family able to get c lothes or diapers when needed? (Household - for ages 0-17 years) Not on file 12/15/2022 Personal Safety Answer Date Recorded Do you feel unsafe or have concerns for your saf ety? No 12/15/2022 Do you have concerns for you r family's safety? (Household - for ages 0-17 years) Not on file 12/15/2022 Utilities Answer Date Recorded Do you have trouble paying y our heating, water, or electric bill? Yes 12/15/2022 Is your family able to pay t he heat, water, or electric bill? (Household - for ages 0-17 years) Not on file 12/15/2022 Does your family have access to good internet? (Household - for ages 0-17 years) Not on file 12/15/2022 Employment Status Answer Date Recorded Are you unemployed or without regular income? Ye s 12/15/2022 Does the household have a re lar source of income? (Household - for ages 0-17 years) Not on file 12/15/2022 Social Connections Answer Date Recorded How often do you feel lonely or isolated from th ose around you? Never 12/15/2022 Financial Resource Strain Answer Date R ecorded Do you have any trouble payi ng for your medications, or do you think you might in the future? Yes 12/15/2022 Does your family have troubl e paying for medicine? (Household - for ages 0-17 years) Not on file 12/15/2022 Transportation Needs Answer Date Record ed READ ONLY Do you have troubl e getting a ride to medical visits or work? Sometimes True 12/15/2022 Does your family have a hard time getting a ride to doctors visits? (Household - for ages 0-17 years) Not on file 12/15/2022 Has lack of transportation k ept you from medical appointments, meetings, work, or from getting things needed for daily living? Check all that apply. (Adult - for ages 18 years and over) Not on file 12/15/2022 Do you (or your family) have trouble finding or paying for a ride (transportation)? (Household - for ages 0-17 years) Not on file 12/15/2022 Housing Stability Answer Date Recorded Do you currently live in a s helter or have no steady place to sleep at night? No 12/15/2022 READ ONLY Do you think you a re at risk of becoming homeless? Yes 12/15/2022 Does your family worry about paying for your home or becoming homeless? (Household - for ages 0-17 years) Not on file 0 12/15/2022 Are you homeless or worried that you might be in the future? (Adult - for ages 18 years and over) Not on file Are you (or your family) ollie eless or worried that you might be in the future? (Household - for ages 0-17 years) Not on file Food Insecurity Answer Date Recorded Do you need food for this week? No 12/15/2022 Are you able to get enough f ood for your family? (Household - for ages 0-17 years) Not on file 12/15/2022 Does your family need food t his week? (Household - for ages 0-17 years) Not on file 12/15/2022 Do you always have enough fo od for your family? (Household - for ages 0-17 years) Not on file 12/15/2022 Sex and Gender Information Value Date Recorded Sex Assigned at Male 03/05/2023 10:07 AM EDT Gender Identity Male 03/05/2023 10:07 AM EDT Sexual Orientation Straight 03/05/2023 10 :07 AM EDT Job Start Date Occupation Industry Not on file Not on file Not on file documented as of this encounter Miscellaneous Notes * Telephone Encounter - Sherin Weller, waste disposal plant operator - 11/21/2023 3:47 PM EDT Pharmacy calling requesting refills for Escitalopram Oxalate 10 MG Oral Tablet (Lexapro) . Upon chart review, medication was last prescribed by emergency room. Pt did schedule a hospital follow up visit. Please advise if you wish to continue this therapy for the patient. Thank you for your assistance Sherin Weller Animal Nutritionist II [facility] 11/21/2023,3:47 PM documented in this encounter Plan of Treatment Upcoming Encounters Date Type Department Care Team (Late st Contact Info) Description 12/17/2023 11:00 AM EDT Home [facility], [facility] [address] [facility] [place] [address] Jimmy Mitchell PA-C [address] [place] [address] 12/18/2023 9:00 AM EDT Office Visit Cardiology, [facility] [address] [facility] [place] [address] Elizabeth Johnson CRNP [address] [facility] [place] [address] 12/21/2023 1:40 PM EDT Office Visit [facility] [address] [place] [id number] Anahy Grayson MD [address] [place] [address] 01/17/2024 3:20 PM EDT Office Visit Neurology [facility] [address] [place] [address] Aparna Ruano PA-C [address] [facility] [place] [address] 02/20/2024 10:30 AM EDT Office Visit Vascular Surgery, [facility] [address] [facility] [place] [address] Tre Lange MD [address] [place] [address] Scheduled Procedures Name Priority Associated Diagnoses Date/Ti me COLONOSCOPY FLEXIBLE PROXIMAL DIAGNOSTIC Recall Colon cancer screening Health Maintenance Due Date Last Done Comments DISCUSS TOBACCO CESSATION (REFER TO SMARTSET #9305) 1965 COVID-19 Vaccine (#1) 02/09/1969 Alpha-1 Antitrypsin 02/09/1982 Zoster Vaccines (1 of 2) 02/09/1983 Cologuard 02/09/2009 Fecal Occult Blood Test 02/09/2009 Sigmoidoscopy 02/09/2009 Depression Monitoring 03/21/2020 03/21/2019 *COPD SEVERITY VERIFIED BY PFT 06/25/2022 DIG [...] or PCV20) 02/11/2025 02/12/2020, 03/21/2019 Diabetes Screening 11/09/2026 11/10/2023, 0 11/07/2023, 11/03/2023, Additional history exists Colonoscopy 07/24/2027 07/24/2017, 07/24/2017 Colorectal Cancer Screening 07/24/2027 Lipid Panel 08/29/2027 08/28/2022, 07/26, 06/06/2021, Additional history exists DTaP,Tdap,and Td Vaccines (2 - Td or Tdap) 02/11/2030 02/12/2020, 03/28/2007 Hepatitis B Completed 05/27/2019, 09/25, 08/26/2018 VITAMIN D LEVEL ONCE IN A LIFETIME-USE SMARTSET# [id number] Completed 08/01/2023, 08/04/2021 GARDASIL-HPV IMMUNIZATION SERIES Aged Out No longer eligible based on patient's age to complete this topic MENINGOCOCCAL (MENACTRA/MENVEO) Aged Out No longer eligible based on patient's age to complete this topic documented as of this encounter Medical Devices Not on filedocumented as of this encounter Care Teams Tradeshow Worker Relationship Specialty Start Date End Date Anahy Grayson MD [address] [place] [address] PCP - General Internal Medicine 01/27/22 documented as of this encounter
--- OUTSIDE RECORDS SUMMARY | 2023-11-27 04:00 | External Medical Summary | Summary of Care ---
Author Name Unknown Organization [facility] Address [address] [facility] [address] Phone [phone] Care Team Providers Care Probate Paralegal Name Role Phone Anahy Grayson MD Primary Care Provider [phone] Reason for Visit * Reason Onset Date Comments Medication Refill 11/21/2023 Encounter Details Date Type Department Care Team (Late st Contact Info) Description 11/21/2023 Refill Cardiology, [facility] [address] [place] [address] Valentina Ceron PA-C [address] [place] [id number] Persistent atrial fibrillation (HCC)*; Coronary artery disease involving enterprise coronary artery of enterprise heart without angina pectoris; HFrEF (heart failure with reduced ejection fraction) (HCC); HTN, goal below 140/90; Dyslipidemia, goal LDL below 70; Palpitations Allergies No known active allergiesdocumented as of this encounter (statuses as of 11/25/2023) Medications Medication Sig Dispensed Refills Start Date [...] GAS Use 2 L/min(Oxygen) as directed. Active Nitroglycerin 0.4 MG Sublingual Tablet Sublingual [...] Oral Tablet (Revatio)Indication s:Raynaud's disease with gangrene ([facility]) TAKE ONE TABLET BY MOUTH EVERY MORNING , 1 TABLET AT NOON AND 2 TABLETS BEFORE BEDTIME 90 Tablet 2 03/30/2023 Active sulfaSALAzine 500 MG Oral Tablet Delayed Release (Azulfidine Entab) Take 1 Tablet by mouth in the morning. 2 tablets twice daily. Active Jardiance 10 MG Oral Tablet (Empagliflozin)Nalini cations:HFrEF (heart failure with reduced ejection fraction) ([facility]) TAKE 1 TABLET BY MOUTH [...] involving multiple sites with positive rheumatoid factor ([facility]) TAKE 1 TO 2 TABLETS BY MOUTH ONCE DAILY FOR RHEUMATOID ARTHRITIS 60 Tablet 5 08/01/2023 Active Spironolactone 25 MG Oral Tablet (Aldactone)Indicati ons:HTN, goal below 140/90 TAKE 1/2 TABLET BY MOUTH EVERY MORNING 45 Tablet 3 08/08/2023 Active Entresto 24-26 MG Oral Tablet (sacubitril-valsart an 24-26 mg per tab)Indications:HTN , goal below 140/90,Frequent PVCs,HFrEF (heart failure with reduced ejection fraction) ([facility]),PAF (paroxysmal atrial fibrillation) (HCC) TAKE 1 TABLET BY MOUTH TWICE DAILY EVERY MORNING AND BEFORE BEDTIME 180 Tablet 3 09/17/2023 Active Eliquis 5 MG Oral Tablet (Apixaban)Indicatio ns:Persistent atrial fibrillation (HCC) TAKE 1 TABLET BY MOUTH TWICE DAILY 180 Tablet 10/08/2023 Active Alendronate Sodium 70 MG Oral Tablet (Fosamax) TAKE ONE TABLET BY MOUTH EVERY WEEK ON SUNDAY 12 Tablet 3 10/12/2023 Active Spiriva Respimat 2.5 MCG/ACT Inhalation Aerosol Solution (Tiotropium Margie Monohydrate) Inhale 2 Puffs by mouth in the morning. 4 g 11 10/26/2023 Active Metoprolol Succinate ER 100 MG Oral Tablet Extended Release 24 Hour (toPROL XL)Indications:Othe r cardiomyopathy ([facility]) Take 1.5 Tablets by mouth in the morning and 1.5 Tablets before bedtime. 270 Tablet 3 11/16/2023 Active Rosuvastatin Calcium 5 MG Oral Tablet (Crestor)Indication s:Coronary artery disease involving enterprise coronary artery of enterprise heart without angina pectoris,HFrEF (heart failure with reduced ejection fraction) ([facility]),HTN, goal below 140/90,Dyslipidemia , goal LDL below 70,Palpitations Take 1 Tablet by mouth in the morning. In the morning.. 90 Tablet 3 11/25/2023 Active Digoxin 125 MCG Oral Tablet (Lanoxin)Indication s:Persistent atrial fibrillation (HCC) Take 1 Tablet by mouth in the morning. 90 Tablet 3 11/25/2023 Active Digoxin 125 MCG Oral Tablet (Lanoxin) Take 1 Tablet by mouth in the morning. 34 Tablet 11 08/08/2022 4 Discontinu ed(Refill) Rosuvastatin Calcium 5 MG Oral Tablet (Crestor)Indication s:Coronary artery disease involving enterprise coronary artery of enterprise heart without angina pectoris,HFrEF (heart failure with reduced ejection fraction) ([facility]),HTN, goal below 140/90,Dyslipidemia , goal LDL below 70,Palpitations TAKE ONE TABLET BY MOUTH EVERY MORNING 30 Tablet 11 10/31/2022 4 Discontinu ed(Refill) Escitalopram Oxalate 10 MG Oral Tablet (Lexapro) Take 1 Tablet by mouth in the morning. 30 Tablet 08/05/2023 4 Discontinu ed(Refill) documented as of this encounter (statuses as of 11/25/2023) Active Problems Problem Noted Date Diagnosed Date Substance abuse 10/17/2023 Last Assessment & Plan: [facility] UDS + meth 08/12 Moderate episode [...] as of this encounter (statuses as of 11/25/2023) Resolved Problems Problem Noted Date Diagnosed Date [...] as of this encounter (statuses as of 11/25/2023) Immunizations Name Administration Dates Next Due HepA [...] 12/15/2022 Does the household have a re gular source of income? (Household - for ages [...] Telephone Encounter - Aparna Burrell DO - 11/25/2023 9:28 PM EDT Signed Prescriptions: Disp Refills Rosuvastatin Calcium 5 MG Oral Tablet (Cre*90 Tab*3 Sig: Take 1 Tablet by mouth in the morning. In the morning.. Authorizing Provider: APARNA BURRELL Digoxin 125 MCG Oral Tablet (Lanoxin) 90 Tab*3 Sig: Take 1 Tablet by mouth in the morning. Authorizing Provider: APARNA BURRELL * Telephone Encounter - Nikole Dunne CMA - 11/22/2023 7:47 AM EDTPending Prescriptions: Disp Refills Rosuvastatin Calcium 5 MG Oral Tablet (Cre*90 Tab*3 Sig: Take 1 Tablet by mouth in the morning. In the morning.. Digoxin 125 MCG Oral Tablet (Lanoxin) 90 Tab*3 Sig: Take 1 Tablet by mouth in the morning. * Telephone Encounter - Diane Alcazar PHARM Tech - 11/21/2023 3:51 PM EDT Did you pend patient's preferred pharmacy and medication before forwarding?yes Pharmacy: [id number] [address] [facility] Pending Prescriptions: Disp Refills Rosuvastatin Calcium 5 MG Oral Tablet (Cr*30 Tab*11 Sig: Take 1 Tablet by mouth in the morning. In the morning.. Digoxin 125 MCG Oral Tablet (Lanoxin) 34 Tab*11 Sig: Take 1 Tablet by mouth in the morning. Last Visit: 12/19/2022 (in office), 08/11/2022 (telemedicine) Next Visit: 12/18/2023 If no future appointments scheduled, and last appointment is greater than a year ago, please schedule patient for a follow-up appointment Last date the medication was ordered: 08/08 Is this request for a controlled substance?No [...] Labs: Lab Results Component Value Date/Time CREAT 0.9 11/10/2023 05:50 AM CREAT 0.63 04/06/2022 12:00 AM CREAT 0.7 12/15/2019 02:28 PM POTASSIUM 4.5 11/10/2023 05:50 AM POTASSIUM 3.7 04/06/2022 12:00 AM POTASSIUM 4.3 12/15/2019 02:28 PM TSH 3.56 03/21/2022 09:15 AM TSH 1.43 01/15/2014 10:21 AM LDLCALC 43 08/28/2022 11:20 AM LDLCALC 53 11/19/2017 03:31 PM LDLDIRECT NOT APPLICABLE 12/21/2015 08:52 AM ALT 46 11/03/2023 08:07 AM ALT 13 12/15/2019 02:28 PM HGBA1C 5.9 (H) 01/31/2022 10:09 AM HGBA1C 6.0 (A) 08/16/2017 12:00 AM documented in this encounter Plan of Treatment Upcoming Encounters Date Type Department Care Team (Late st Contact Info) Description 12/11/2023 7:20 AM EDT Office Visit [facility] [address] [place] [address] Anahy Grayson MD [address] [place] [address] 12/17/2023 11:00 AM EDT Home Visit [facility] [address] [place] [address] Jimmy Mitchell PA-C [address] [place] [address] 12/18/2023 9:00 AM EDT Office Visit Cardiology, [facility] [address] [place] [address] Elizabeth Johnson CRNP [address] [place] [address] 12/21/2023 1:40 PM EDT Office Visit [facility] [address] [place] [id number] Anahy Grayson MD [address] [place] [address] 01/10/2024 8:15 AM EDT Office Visit Orthopaedics [facility] [address] [place] [address] Randall Diamond DO [address] [facility] [place] [address] 01/17/2024 3:20 PM EDT Office Visit Neurology [facility] [address] [place] [address] Aparna Ruano PA-C [address] [place] [address] 02/20/2024 10:30 AM EDT Office Visit Vascular Surgery, [facility] [address] [place] [address] Tre Lange MD [address] [place] [address] Scheduled Procedures Name Priority Associated [...] D LEVEL ONCE IN A LIFETIME-USE SMARTSET# [id number] Completed 08/01/2023, 08/04/2021 GARDASIL-HPV IMMUNIZATION SERIES Aged Out No longer eligible based on patient's age to complete this topic MENINGOCOCCAL (MENACTRA/MENVEO) Aged Out No longer eligible based on patient's age to complete this topic documented as of this encounter Medical Devices Not on filedocumented as of this encounter Visit Diagnoses Diagnosis Persistent atrial fibrillation (HCC)- Primary Atrial fibrillation Coronary artery disease involving enterprise coronary artery of enterprise heart without angina pectoris HFrEF (heart failure with reduced ejection fraction) (HCC) HTN, goal below 140/90 Unspecified essential hypertension Dyslipidemia, goal LDL below 70 Other and unspecified hyperlipidemia Palpitations documented in this encounter Care Teams Probate Paralegal Relationship Specialty Start Date End Date Anahy Grayson MD [address] [place] [address] PCP - General Internal Medicine 01/27/22 documented as of this encounter
--- OUTSIDE RECORDS SUMMARY | 2023-11-27 04:00 | External Medical Summary | Summary of Care ---
Author Name Unknown Organization [facility] Address [address] [place] [address] Phone [phone] Care Team Providers Care Ball Machine Operator Name Role Phone Anahy Goins MD Primary Care Provider [phone] Reason for Visit * Reason Onset Date Comments Medication Refill 11/21/2023 Encounter Details Date Type Department Care Team (Late st Contact Info) Description 11/21/2023 Telephone [facility] [address] [place] [address] Anahy Goins MD [address] [place] [address] Medication Refill Allergies No known [...] Oral Tablet (Crestor)Indication s:Coronary artery disease involving elem coronary artery of elem heart without angina pectoris,HFrEF (heart failure with [...] Active Sarilumab 200 MG/1.14ML Subcutaneous Solution Auto-injector ([place])Indication s:Rheumatoid arthritis involving multiple sites with positive [...] positive rheumatoid factor ([facility]) TAKE 1 TO 2 TABLETS BY [...] Respimat 2.5 MCG/ACT Inhalation Aerosol Solution (Tiotropium [place] Monohydrate) Inhale 2 Puffs by mouth in the morning. 4 g 11 10/26/2023 Active Metoprolol Succinate ER 100 MG Oral Tablet Extended Release 24 Hour (toPROL XL)Indications:Othe r cardiomyopathy (HCC) Take 1.5 Tablets by mouth in the morning and 1.5 Tablets before bedtime. 270 Tablet 3 11/16/2023 Active Escitalopram Oxalate 10 MG Oral Tablet (Lexapro) Take 1 Tablet by mouth in the morning. 90 Tablet 1 11/22/2023 Active Escitalopram Oxalate 10 MG Oral Tablet (Lexapro) Take 1 Tablet by mouth in the morning. 30 Tablet 08/05/2023 4 Discontinu ed(Refill) documented as of this encounter (statuses as of 11/22/2023) Active Problems Problem Noted Date Diagnosed Date Substance abuse 10/17/2023 Last Assessment & Plan: [facility] UDS + meth 08/12 Moderate episode of [...] Miscellaneous Notes * Addendum Note - Anahy Goins MD - 11/22/2023 2:37 PM EDTAddended by: ANAHY GOINS on: 11/22/2023 02:37 PM Modules accepted: Orders * Telephone Encounter - Anahy Goins MD - 11/22/2023 2:37 PM EDT Yes would like to continue for his depression Sent out #[phone] with refill * Telephone Encounter - Sherin Weller retail cashier associate - 11/21/2023 3:47 PM EDT Pharmacy calling requesting refills for Escitalopram Oxalate 10 MG Oral Tablet (Lexapro) . Upon chart review, medication was last prescribed by emergency room. Pt did schedule a hospital follow up visit. Please advise if you wish to continue this therapy for the patient. Thank you for your assistance Sherin Weller Internet Marketing Specialist II [facility] ([facility]) 11/21/2023,3:47 PM documented in this encounter Plan of Treatment Upcoming Encounters Date Type Department Care Team (Late st Contact Info) Description 12/17/2023 11:00 AM EDT Home Visit [facility] [address] [place] [address] Jimmy Mitchell PA-C [address] [place] [address] 12/18/2023 9:00 AM EDT Office Visit Cardiology, [facility] [address] [place] [address] Elizabeth Johnson CRNP [address] [place] [address] 12/21/2023 1:40 PM EDT Office Visit [address] [address] Anahy Goins MD [address] [place] [address] 01/17/2024 3:20 PM EDT Office Visit Neurology [facility] [address] [place] [address] Aparna Ruano PA-C [address] [place] [address] 02/20/2024 10:30 AM EDT Office Visit Vascular Surgery, [facility] [address] [facility] [place] [address] Tre Lange MD [address], [place] [id number] Scheduled Procedures Name Priority Associated Diagnoses Date/Ti me COLONOSCOPY FLEXIBLE PROXIMAL DIAGNOSTIC Recall Colon cancer screening Health Maintenance Due Date Last Done Comments DISCUSS TOBACCO CESSATION (REFER TO SMARTSET #4190) 1965 COVID-19 Vaccine (#1) 02/09/1969 Alpha-1 Antitrypsin [...] D LEVEL ONCE IN A LIFETIME-USE SMARTSET# 13682 Completed 08/01/2023, 08/04/2021 GARDASIL-HPV IMMUNIZATION SERIES Aged Out No longer eligible based on patient's age to complete this topic MENINGOCOCCAL (MENACTRA/MENVEO) Aged Out No longer eligible based on patient's age to complete this topic documented as of this encounter Medical Devices Not on filedocumented as of this encounter Care Teams Ball Machine Operator Relationship Specialty Start Date End Date Anahy Goins MD [address] [place] [facility] [place] [address] PCP - General Internal Medicine 01/27/22 documented as of this encounter
--- OUTSIDE RECORDS SUMMARY | 2023-11-27 04:01 | External Medical Summary | Summary of Care ---
Author Name Unknown Organization [facility] Address [address] [place] [address] Phone [phone] Care Team Providers Care Regulatory Affairs Specialist Name Role Phone Anahy Grayson MD Primary Care Provider [phone] Reason for Visit * Reason Onset Date Comments Home Health 11/16/2023 Encounter Details Date Type Department Care Team (Late st Contact Info) Description 11/16/2023 Telephone [facility] [address] [place] [address] Anahy Grayson MD [address] [place] [address] Home Health Allergies No known active allergiesdocumented as of this encounter (statuses as of 11/16/2023) Medications Medication Sig Dispensed Refills Start Date [...] Oral Tablet (Crestor)Indications: Coronary artery disease involving [place] coronary artery of [place] heart without angina pectoris,HFrEF (heart failure with [...] Active Sarilumab 200 MG/1.14ML Subcutaneous Solution Auto-injector ([email or web address])Indications: Rheumatoid arthritis involving multiple sites with positive rheumatoid factor ([facility]) Inject 1.14 mL under the skin every 14 days. 2.28 mL 11 03/05/2023 Active Omeprazole 40 MG Oral Capsule Delayed Release (PriLOSEC) Take 1 Capsule by mouth in the morning. 1 hour before the first meal of the day.. 90 Capsule 3 03/15/2023 Active Sildenafil Citrate 20 MG Oral Tablet (Revatio)Indications: Raynaud's disease with gangrene ([facility]) TAKE ONE TABLET BY MOUTH EVERY MORNING , 1 TABLET AT NOON AND 2 TABLETS BEFORE BEDTIME 90 Tablet 2 03/30/2023 Active sulfaSALAzine 500 MG Oral Tablet Delayed Release (Azulfidine Entab) Take 1 Tablet by mouth in the morning. 2 tablets twice daily. Active Jardiance 10 MG Oral Tablet (Empagliflozin)Indica tions:HFrEF (heart failure with reduced ejection fraction) ([facility]) TAKE 1 TABLET BY MOUTH EVERY MORNING 90 Tablet 3 05/08/2023 Active Furosemide 20 MG Oral Tablet (Lasix)Indications:HF rEF (heart failure with reduced ejection fraction) ([facility]) Take 2 Tablets by mouth in the morning. 180 Tablet 3 06/06/2023 Active Additional Information Patient taking differently:40 mg Oral Daily(AM),Pt takes 2 tabs every morning and additional 1 in the afternoon as needed for edema, Reported on 09/23/2023 predniSONE 5 MG Oral Tablet (Deltasone)Indication s:Rheumatoid arthritis involving multiple sites with positive rheumatoid factor ([facility]) TAKE 1 TO 2 TABLETS [...] 08/08/2023 Active Entresto 24-26 MG Oral Tablet (sacubitril-valsartan 24-26 mg per tab)Indications:HTN, goal below 140/90,Frequent PVCs,HFrEF (heart failure with reduced ejection fraction) (HCC),PAF (paroxysmal atrial fibrillation) ([facility]) TAKE 1 TABLET BY MOUTH TWICE DAILY EVERY MORNING AND BEFORE BEDTIME 180 Tablet 3 09/17/2023 Active Eliquis 5 MG Oral Tablet (Apixaban)Indications :Persistent atrial fibrillation ([facility]) TAKE 1 TABLET BY MOUTH TWICE DAILY 180 Tablet 10/08/2023 Active oxyCODONE-Acetaminoph en 10-325 MG Oral Tablet (Percocet)Indications :Ischemic foot ulcer 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 120 Tablet 10/11/2023 Active Alendronate Sodium 70 MG Oral Tablet (Fosamax) TAKE ONE TABLET BY MOUTH EVERY WEEK ON SUNDAY 12 Tablet 3 10/12/2023 Active Spiriva Respimat 2.5 MCG/ACT Inhalation Aerosol Solution (Tiotropium [place] Monohydrate) Inhale 2 Puffs by mouth in the morning. 4 g 11 10/26/2023 Active Metoprolol Succinate ER 100 MG Oral Tablet Extended Release 24 Hour (toPROL XL)Indications:Other cardiomyopathy (HCC) Take 1.5 Tablets by mouth in the morning and 1.5 Tablets before bedtime. 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 PT states that he needs to change the date for PT Eval Patient requested that he call Sunday to set up appt - will be one day next week documented in this encounter Plan of Treatment Upcoming Encounters Date Type Department Care Team (Late st Contact Info) Description 11/21/2023 9:10 AM EDT Office Visit [facility] [address] [place] [address] Perla Luque DO [address] [place] [address] 12/17/2023 11:00 AM EDT Home Visit [facility] [address] [place] [address] Jimmy Mitchell PA-C [address] [place] [address] 12/18/2023 9:00 AM EDT Office Visit Cardiology, [facility] [address] [place] [address] Elizabeth Johnson CRNP [address] [place] [address] 12/21/2023 1:40 PM EDT Office Visit [facility] [address] [place] [phone] Anahy Grayson MD [address] [place] [address] 01/17/2024 3:20 PM EDT Office Visit Neurology [facility] [address] [place] [address] Aparna Ruano PA-C [address] [place] [address] 02/20/2024 10:30 AM EDT Office Visit Vascular Surgery, [facility] [address] [place] [address] Tre Lange MD [address], [place] [id number] Scheduled Procedures Name Priority Associated Diagnoses Date/Ti me COLONOSCOPY FLEXIBLE PROXIMAL DIAGNOSTIC Recall Colon cancer screening Health Maintenance Due Date Last Done Comments DISCUSS TOBACCO CESSATION (REFER TO SMARTSET #3898) 1965 COVID-19 Vaccine (#1) 02/09/1969 Alpha-1 Antitrypsin [...] D LEVEL ONCE IN A LIFETIME-USE SMARTSET# 62061 Completed 08/01/2023, 08/04/2021 GARDASIL-HPV IMMUNIZATION SERIES Aged Out No longer eligible based on patient's age to complete this topic MENINGOCOCCAL (MENACTRA/MENVEO) Aged Out No longer eligible based on patient's age to complete this topic documented as of this encounter Medical Devices Not on filedocumented as of this encounter Care Teams Regulatory Affairs Specialist Relationship Specialty Start Date End Date Anahy Grayson MD [address] [place] [address] PCP - General Internal Medicine 01/27/22 documented as of this encounter
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
--- OUTSIDE RECORDS SUMMARY | 2023-11-27 04:01 | External Medical Summary | Summary of Care ---
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..] with positive rheumatoid factor ([facility]) TAKE 1 TO 2 TABLETS BY MOUTH [...] Respimat 2.5 MCG/ACT Inhalation Aerosol Solution (Tiotropium [place] Monohydrate) Inhale 2 Puffs by mouth in the morning. 4 g 11 10/26/2023 Active Metoprolol Succinate ER 100 MG Oral Tablet Extended Release 24 Hour (toPROL XL)Indications:Other cardiomyopathy (HCC) Take 1.5 Tablets by mouth in the morning and 1.5 Tablets before bedtime. 270 Tablet 3 11/16/2023 Active oxyCODONE-Acetaminop hen 10-325 MG Oral Tablet (Percocet)Indication s:Ischemic foot ulcer due to atherosclerosis of [place] artery of limb (HCC),Rheumatoid arthritis involving multiple sites with positive rheumatoid factor (HCC) Take 1 Tablet by mouth every 6 hours as needed for Pain, Severe. 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 120 Tablet 10/11/2023 11/21/19 24 Discontinu ed(Refill) documented as of this encounter (statuses as of 11/22/2023) Active Problems Problem Noted Date Diagnosed Date Substance abuse 10/17/2023 Last Assessment & Plan: [facility] UDS + meth 08/12 Moderate episode of [...] plan o Chest Xray long term care pharmacist systemic steroid user 06/23/2022 Scoliosis 06/23/2022 SVT [...] factor 03/07/2018 Last Assessment & Plan: On génesiszara Chronic low dose prednisone Prn percocet managed [...] Encounter - Anahy Grayson MD - 11/22/2023 7:27 AM EDTSigned Prescriptions: Disp Refills oxyCODONE-Acetaminophen 10-325 MG Oral Tab*120 Ta*0 Sig: Take 1 Tablet by mouth every 6 hours as needed for Pain, Severe. Authorizing Provider: ANAHY GRAYSON * Telephone Encounter - Oliva Aparicio [facility] - 11/21/2023 4:30 PM EDT Pending Prescriptions: Disp Refills oxyCODONE-Acetaminophen 10-325 MG Oral Tab*120 Ta*0 Sig: Take 1 Tablet by mouth every 6 hours as needed for Pain, Severe. * Telephone Encounter - Oliva Aparicio [facility] - 11/21/2023 4:30 PM EDT I have reviewed the patients controlled substance dispensing history in the Prescription Drug Monitoring Program in compliance with the [facility] regulations before prescribing a controlled substance. PDMP checked on 11/21/2023. Pending Prescriptions: Disp Refills oxyCODONE-Acetaminophen 10-325 MG Oral Ta*120 Ta*0 Sig: Take 1 Tablet by mouth every 6 hours as needed for Pain, Severe. Last Visit: 09/21/2023 (in office), 06/15/2020 (telemedicine) Next Visit: 12/21/2023 Date medication was last filled: 10/11/23 Date medication is due for refill: 10/16/23 [facility]: [id number] [address] Is this request for a controlled substance? Yes and Urine Drug Screen Not completed Toxicology results: Results for orders placed [...] in Results Review. Please approve if appropriate. Oliva Mcmanus [facility] Clinical Pharmacist Central[facility] Pharmacy Services ([facility]) [phone] * Telephone Encounter - Glenna Varela PHARM Tech - 11/21/2023 4:21 PM EDT Pt out of medication Did you pend patient's preferred pharmacy and medication before forwarding?yes Pharmacy: [id number] [address] Pending Prescriptions: Disp Refills [...] appointment Last date the medication was ordered: 10/11/23 Is this request for a controlled substance?Yes, What was the last refill date 10/11/23 w/ quantity 120 and dosage 1 tab every 6 hours and Urine Drug Screen Not completed Urine Drug Screen: Results for orders [...] Description 12/17/2023 11:00 AM EDT [facility] Visit [facility] [address] [place] [address] Jimmy Mitchell PA-C [address] [place] [address] 12/18/2023 9:00 AM EDT Office Visit Cardiology, [facility] [address] [place] [address] Elizabeth Johnson CRNP 132 [facility] [place] [address] 12/21/2023 1:40 PM EDT Office Visit [facility] [address] [place] [phone] Anahy Grayson MD [address] [place] [address] 01/17/2024 3:20 PM EDT Office Visit Neurology [facility] [address] [place] [address] Aparna Ruano PA-C [address] [place] [address] 02/20/2024 10:30 AM EDT Office Visit Vascular Surgery, [facility] [address] [place] [address] Tre Lange MD [address] [place] [address] Scheduled Procedures Name Priority Associated Diagnoses Date/Ti me COLONOSCOPY FLEXIBLE PROXIMAL DIAGNOSTIC Recall Colon cancer screening Health Maintenance Due Date Last Done Comments DISCUSS TOBACCO CESSATION (REFER TO SMARTSET #0608) 1965 COVID-19 Vaccine (#1) 02/09/1969 Alpha-1 Antitrypsin [...] D LEVEL ONCE IN A LIFETIME-USE SMARTSET# 45666 Completed 08/01/2023, 08/04/2021 GARDASIL-HPV IMMUNIZATION SERIES Aged Out No longer eligible based on patient's age to complete this topic MENINGOCOCCAL (MENACTRA/MENVEO) Aged Out No longer eligible based on patient's age to complete this topic documented as of this encounter Medical Devices Not on filedocumented as of this encounter Visit Diagnoses Diagnosis Ischemic foot ulcer due to atherosclerosis of [place] artery of limb (HCC) Rheumatoid arthritis involving multiple sites with positive rheumatoid factor (HCC) documented in this encounter Care Teams Fibreglass Lay Up Worker Relationship Specialty Start Date End Date Anahy Grayson MD [address] [place] [address] PCP - General Internal Medicine 01/27/22 documented as of this encounter
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
--- OUTSIDE RECORDS SUMMARY | 2023-11-27 04:02 | External Medical Summary | Summary of Care ---
Author Name Unknown Organization [facility] Address [address] [place] [address] Phone [phone] Care Team Providers Care Fountain Manager Name Role Phone Anahy Grayson MD Primary Care Provider [phone] Reason for Visit * Reason Onset Date Comments Medication Question 11/14/2023 Encounter Details Date Type Department Care Team (Late st Contact Info) Description 11/14/2023 Telephone [facility] [address] [place] [address] Anahy Grayson MD [address] [place] [address] Medication Question Allergies No known active allergiesdocumented as of [...] Oral Tablet (Crestor)Indication s:Coronary artery disease involving pa[place] coronary artery of pauma heart without angina pectoris,HFrEF (heart failure with [...] Active Sarilumab 200 MG/1.14ML Subcutaneous Solution Auto-injector ([place])Indication s:Rheumatoid arthritis involving multiple sites with positive [...] MORNING 45 Tablet 3 08/08/19 24 Active Entresto 24-26 MG Oral Tablet (sacubitril-valsart an 24-26 mg per tab)Indications:HTN , goal below 140/90,Frequent PVCs,HFrEF (heart failure with reduced ejection fraction) ([facility]),PAF (paroxysmal atrial fibrillation) ([facility]) TAKE 1 TABLET BY MOUTH TWICE DAILY EVERY MORNING AND BEFORE BEDTIME 180 Tablet 3 09/17/19 24 Active Eliquis 5 MG Oral Tablet (Apixaban)Indicatio ns:Persistent atrial fibrillation ([facility]) TAKE 1 TABLET BY MOUTH TWICE DAILY 180 Tablet 10/08/19 24 Active oxyCODONE-Acetamino phen 10-325 MG Oral Tablet (Percocet)Indicatio ns:Ischemic foot ulcer due to atherosclerosis of pauma artery of limb ([facility]),Rheumatoid arthritis involving multiple sites with positive rheumatoid factor ([facility]) Take 1 Tablet by mouth every 6 hours as needed for Pain, Severe. 120 Tablet 10/11/19 24 Active Alendronate Sodium 70 MG Oral Tablet (Fosamax) TAKE ONE TABLET BY MOUTH EVERY WEEK ON SUNDAY 12 Tablet 3 10/12/19 24 Active Spiriva Respimat 2.5 MCG/ACT Inhalation Aerosol Solution (Tiotropium [place] Monohydrate) Inhale 2 Puffs by mouth in the morning. 4 g 11 10/26/19 24 Active Metoprolol Succinate ER 100 MG Oral Tablet Extended Release 24 Hour (toPROL XL)Indications:Othe r cardiomyopathy (HCC) Take 1.5 Tablets by mouth in the morning and 1.5 Tablets before bedtime. 270 Tablet 3 11/16/19 24 Active Metoprolol Succinate ER 100 MG Oral Tablet Extended Release 24 Hour (toPROL XL) Take 1 Tablet by mouth in the morning and 1 Tablet before bedtime. 180 Tablet 3 07/29/19 23 024 Discontinued Metoprolol Succinate ER 25 MG Oral Tablet Extended Release 24 Hour (toPROL XL)Indications:HTN, goal below 140/90,Frequent PVCs TAKE ONE TABLET BY MOUTH IN THE MORNING AND BEFORE BEDTIME IN ADDITION TO 100MG. TOTAL 125MG TWICE DAILY. 180 Tablet 3 09/04/19 24 024 Discontinued(Me dication/Dose Changed) documented as of this encounter (statuses as of 11/16/2023) Active Problems Problem Noted Date Diagnosed Date Substance abuse 10/17/2023 Last Assessment & Plan: [facility] UDS + meth 08/12 Moderate episode of [...] Telephone Encounter - Connie Berumen LPN - 11/16/2023 11:01 AM EDT Left detailed message on identified a answering machine. Pt's to call back if they have any questions. * Addendum Note - Florentin Sarmiento MD - 11/16/2023 10:37 AM EDTAddended by: FLORENTIN SARMIENTO on: 11/16/2023 10:37 AM Modules accepted: Orders * Telephone Encounter - Florentin Sarmiento MD - 11/16/2023 10:34 AM EDT I agree: my mistake. He should be using Metoprolol Succinate 100mg , 1 1/2 tabs twice daily ie 150mg twice daily.New script sent to [facility] pharmacy * Telephone Encounter - Connie Berumen LPN - 11/16/2023 9:06 AM EDT Printed out [facility] discharge summary for pt from November 02, 2023 There seems to be a little confusion with what is the correct does for this pt of the metoprolol. Please review the Metoprolol does. Thank you. * Telephone Encounter - Florentin Sarmiento MD - 11/15/2023 3:31 PM EDT Pt was hospitalized [facility] with D/C 11/02/23. H e needs a post hospital visit. May inform home health: Discharge summary indicates he should not take Sildenafil. Entresto 24- dose decreased to 1/2 tabtwice daily . Metoprolol dose decreased to total of 125mg daily ( he is to use Metoprolol Succinate. 100mg and 25mg daily * Telephone Encounter - Carlito, AllisonLEXA wheat - 11/15/2023 1:45 PM EDT Patient spouse was contacted and she states patient was seen at the ER a few days ago and is not sure what medications he is to be taking.She thinks they only discontinued the Sildenafil due to him getting ulcers. I did try to contact Abraham at [facility] to obtain the medication list they have on file but he did not answer and had to leave a message. Spouse would like some guidance on a referral for [facility]. He is currently in [facility] and due to insurance is only able to stay for 10 days. She did express that the patient does have tingling, numbness and pain in his legs and seems to be from the calf down to his feet. She would like to know if this due to his PAD or CHF? Also has an ulcer on his Great toe and would like recommendations. Will obtain last ER. * Telephone Encounter - Kelli Zelaya CPhT - 11/14/2023 12:21 PM EDT [facility] home health OT is calling with questions about patients discharge medications. They are unsurewhat the patient should be taking. Patient is currently at [facility]. Please call patients EC to go over current needed medications. Caller is asking for high priority. Thank you, Kelli Zelaya Retail Delivery Driver [facility] 11/14/2023,12:24 PM documented in this encounter Plan of Treatment Upcoming Encounters Date Type Department Care Team (Late st Contact Info) Description 11/21/2023 9:10 AM EDT Office Visit [facility] [address] [place] [phone] Perla Luque DO [address] [place] [address] 12/17/2023 11:00 AM EDT Home Visit [facility] [address] [place] [address] Jimmy Mitchell PA-C [address] [place] [address] 12/18/2023 9:00 AM EDT Office Visit Cardiology, [facility] [address] [place] [address] Elizabeth Johnson CRNP [address] [place] [address] 12/21/2023 1:40 PM EDT Office Visit [facility] [address] [place] [facility] [place] [phone] Anahy Grayson MD [address] [place] [address] 01/17/2024 3:20 PM EDT Office Visit Neurology [facility] [address] [place] [address] Aparna Ruano PA-C [address] [facility] [place] [address] 02/20/2024 10:30 AM EDT Office Visit Vascular Surgery, [facility] [address] [facility] [place] [address] Tre Lange MD [address] [place] [address] Scheduled Procedures Name Priority Associated Diagnoses Date/Ti [...] D LEVEL ONCE IN A LIFETIME-USE SMARTSET# 71655 Completed 08/01/2023, 08/04/2021 GARDASIL-HPV IMMUNIZATION SERIES Aged Out No longer eligible based on patient's age to complete this topic MENINGOCOCCAL (MENACTRA/MENVEO) Aged Out No longer eligible based on patient's age to complete this topic documented as of this encounter Medical Devices Not on filedocumented as of this encounter Visit Diagnoses Diagnosis Other cardiomyopathy (HCC)- Primary documented in this encounter Care Teams Fountain Manager Relationship Specialty Start Date End Date Anahy Grayson MD [address] [place] [facility] [place] [address] PCP - General Internal Medicine 01/27/22 documented as of this encounter
--- OUTSIDE RECORDS SUMMARY | 2023-11-27 04:02 | External Medical Summary | Summary of Care ---
Author Name Unknown Organization [facility] Address [address] [place] [address] Phone [phone] Care Team Providers Care Manager Program Name Role Phone Anahy Grayson MD Primary Care Provider [phone] Encounter Details Date Type Department Care Team (Late st Contact Info) Description 11/15/2023 Telephone [facility] [address] [place] [address] Anahy Grayson MD [address] [place] [address] Allergies No known active allergiesdocumented [...] Oral Tablet (Crestor)Indication s:Coronary artery disease involving [place]re[place] coronary artery of andreafski heart without angina pectoris,HFrEF (heart failure with [...] involving multiple sites with positive rheumatoid factor ([facility]) Inject 1.14 mL under the skin every 14 days. 2.28 mL 11 03/05/20 23 Active Omeprazole 40 MG Oral Capsule Delayed Release (PriLOSEC) Take 1 Capsule by mouth in the morning. 1 hour before the first meal of the day.. 90 Capsule 3 03/15/20 23 Active Sildenafil Citrate 20 MG Oral Tablet (Revatio)Indication s:Raynaud's disease with gangrene ([facility]) TAKE ONE TABLET BY MOUTH EVERY MORNING , 1 TABLET AT NOON AND 2 TABLETS BEFORE BEDTIME 90 Tablet 2 03/30/20 23 Active sulfaSALAzine 500 MG Oral Tablet Delayed Release (Azulfidine Entab) Take 1 Tablet by mouth in the morning. 2 tablets twice daily. Active Jardiance 10 MG Oral Tablet (Empagliflozin)Nalini cations:HFrEF (heart failure with reduced ejection fraction) ([facility]) TAKE 1 TABLET BY MOUTH EVERY MORNING 90 Tablet 3 05/08/20 23 Active Furosemide 20 MG Oral Tablet (Lasix)Indications: HFrEF (heart failure with reduced ejection fraction) ([facility]) Take 2 Tablets by mouth in the morning. 180 Tablet 3 06/06/19 24 Active Additional Information Patient taking differently:40 mg Oral Daily(AM),Pt takes 2 tabs every morning and additional 1 in the afternoon as needed for edema, Reported on 09/23/2023 predniSONE 5 MG Oral Tablet (Deltasone)Indicati ons:Rheumatoid arthritis involving multiple sites with positive rheumatoid factor ([facility]) TAKE 1 TO 2 TABLETS BY MOUTH [...] ns:Ischemic foot ulcer due to atherosclerosis of andreafski artery of limb ([facility]),Rheumatoid arthritis involving multiple sites with positive rheumatoid factor ([facility]) Take 1 Tablet by mouth every 6 hours as needed for Pain, Severe. 120 Tablet 10/11/19 24 Active Alendronate Sodium 70 MG Oral Tablet (Fosamax) TAKE ONE TABLET BY MOUTH EVERY WEEK ON SUNDAY 12 Tablet 3 10/12/19 24 Active Spiriva Respimat 2.5 MCG/ACT Inhalation Aerosol Solution (Tiotropium [place] Monohydrate) Inhale 2 Puffs by mouth in [...] abuse 10/17/2023 Last Assessment & Plan: [facility] UDS + meth 08/12 Moderate episode [...] Chest Xray skilled nursing systemic steroid user 06/23/2022 Scoliosis 06/23/2022 SVT [...] Miscellaneous Notes * Telephone Encounter - Karley Horn OSA - 11/15/2023 3:16 PM EDT 11/15/23 Rec APPROVAL for Inpatient Admission based on medical necessity of the requested service. Sent to [facility]> documented in this encounter Plan of Treatment Upcoming Encounters Date Type Department Care Team (Late st Contact Info) Description 11/21/2023 9:10 AM EDT Office Visit [facility] [address] [place] [address] Perla Luque DO [address] [place] [address] 12/17/2023 11:00 AM EDT Home Visit [facility] [address] [place] [address] Jimmy Mitchell PA-C [address] [place] [address] 12/18/2023 9:00 AM EDT Office Visit Cardiology, [facility] [address] [facility] [place] [address] Elizabeth Johnson CRNP 132 [facility] [place] [address] 12/21/2023 1:40 PM EDT Office Visit [facility] [address] [place] [phone] Anahy Grayson MD [address] [place] [address] 01/17/2024 3:20 PM EDT Office Visit Neurology [facility] [address] [place] [address] Aparna Ruano PA-C [address] [place] [address] 02/20/2024 10:30 AM EDT Office Visit Vascular Surgery, [facility] [address] [facility] [place] [address] Tre Lange MD [address] [place] [address] Scheduled Procedures Name Priority Associated [...] D LEVEL ONCE IN A LIFETIME-USE SMARTSET# 21412 Completed 08/01/2023, 08/04/2021 GARDASIL-HPV IMMUNIZATION SERIES Aged Out No longer eligible based on patient's age to complete this topic MENINGOCOCCAL (MENACTRA/MENVEO) Aged Out No longer eligible based on patient's age to complete this topic documented as of this encounter Medical Devices Not on filedocumented as of this encounter Care Teams Manager Program Relationship Specialty Start Date End Date Anahy Grayson MD [address] [place] [address] PCP - General Internal Medicine 01/27/22 documented as of this encounter
--- OUTSIDE RECORDS SUMMARY | 2023-11-27 04:02 | External Medical Summary | Summary of Care ---
Author Name Unknown Organization [facility] Address [address] [place] [address] Phone [phone] Care Team Providers Care Sheet Rock Applicator Name Role Phone Anahy Gr[facility] MD Primary Care Provider Reason for Visit * Reason Onset Date Comments Medication Question 11/14/2023 Encounter Details Date Type Department Care Team (Late st Contact Info) Description 11/14/2023 Telephone [facility] [address] [place] [address] Anahy Grayson MD [address] [place] [address] Medication Question Allergies No known [...] Oral Tablet (Crestor)Indication s:Coronary artery disease involving [place] coronary artery of [place] heart without angina pectoris,HFrEF (heart failure with [...] Active Sarilumab 200 MG/1.14ML Subcutaneous Solution Auto-injector (Kapitall)Indication s:Rheumatoid arthritis involving multiple sites with positive [...] with positive rheumatoid factor ([facility]) TAKE 1 TO 2 TABLETS BY MOUTH [...] failure with reduced ejection fraction) ([facility]),PAF (paroxysmal atrial fibrillation) ([facility]) TAKE 1 TABLET BY MOUTH TWICE DAILY EVERY MORNING AND BEFORE BEDTIME 180 Tablet 3 09/17/19 24 Active Eliquis 5 MG Oral Tablet (Apixaban)Indicatio ns:Persistent atrial fibrillation ([facility]) TAKE 1 TABLET BY MOUTH TWICE DAILY 180 Tablet 10/08/19 24 Active oxyCODONE-Acetamino phen 10-325 MG Oral Tablet (Percocet)Indicatio ns:Ischemic foot ulcer due to atherosclerosis of [place] artery of limb ([facility]),Rheumatoid arthritis involving multiple sites with positive rheumatoid factor ([facility]) Take 1 Tablet by mouth every 6 hours as needed for Pain, Severe. 120 Tablet 10/11/19 24 Active Alendronate Sodium 70 MG Oral Tablet (Fosamax) TAKE ONE TABLET BY MOUTH EVERY WEEK ON SUNDAY 12 Tablet 3 10/12/19 24 Active Spiriva Respimat 2.5 MCG/ACT Inhalation Aerosol Solution (Tiotropium [place] Monohydrate) Inhale 2 Puffs by mouth in [...] Substance abuse 10/17/2023 Last Assessment & Plan: [facility] UDS + meth 08/12 Moderate episode of [...] Exacerbation plan o Chest Xray long term systemic steroid user 06/23/2022 Scoliosis 06/23/2022 SVT [...] ie 150mg twice daily.New script sent to [facility] pharmacy * Telephone Encounter - Connie Berumen LPN - 11/16/2023 9:06 AM EDT Printed out [facility] discharge summary for pt from November 02, 2023 There seems to be a little confusion with what is the correct does for this pt of the metoprolol. Please review the Metoprolol does. Thank you. * Telephone Encounter - Florentin Sarmiento MD - 11/15/2023 3:31 PM EDT Pt was hospitalized [facility] with D/C 11/02/23. H e needs a [...] I did try to contact Abraham at [facility] to obtain the medication list they have on file but he did not answer and had to leave a message. Spouse would like some guidance on a referral for [facility]. He is currently in [facility] and due to insurance is only able [...] Zelaya CPhT - 11/14/2023 12:21 PM EDT [facility] home health OT is calling with questions about patients discharge medications. They are unsurewhat the patient should be taking. Patient is [facility] at [facility]. Please call patients EC to go over current needed medications. Caller is asking for high priority. Thank you, Kelli Zelaya Roll Forger [facility] 11/14/2023,12:24 PM documented in this encounter Plan of Treatment Upcoming Encounters Date Type Department Care Team (Late st Contact Info) Description 11/21/2023 9:10 AM EDT Office Visit [facility] [address] [place] [phone] Perla Luque DO [address] [place] [address] 12/17/2023 11:00 AM EDT Home Visit [facility] [address] [place] [address] Jimmy Mitchell PA-C [address] [place] [address] 12/18/2023 9:00 AM EDT Office Visit Cardiology, [facility] [address] [place] [address] Elizabeth Johnson CRNP [address] [place] [address] 12/21/2023 1:40 PM EDT Office Visit [facility] [address] [place] [facility] [place] [phone] Anahy Grayson MD [address] [place] [address] 01/17/2024 3:20 PM EDT Office Visit Neurology [facility] [address] [place] [address] Aparna Ruano PA-C [address] [facility] [place] [address] 02/20/2024 10:30 AM EDT Office Visit Vascular Surgery, [facility] [address] [facility] [place] [address] Tre Lange MD [address] [place] [address] Scheduled Procedures Name Priority Associated Diagnoses Date/Ti [...] D LEVEL ONCE IN A LIFETIME-USE SMARTSET# [id number] Completed 08/01/2023, 08/04/2021 GARDASIL-HPV IMMUNIZATION SERIES Aged Out No longer eligible based on patient's age to complete this topic MENINGOCOCCAL (MENACTRA/MENVEO) Aged Out No longer eligible based on patient's age to complete this topic documented as of this encounter Medical Devices Not on filedocumented as of this encounter Visit Diagnoses Diagnosis Other cardiomyopathy (HCC)- Primary documented in this encounter Care Teams Sheet Rock Applicator Relationship Specialty Start Date End Date Anahy Grayson MD [address] [place] [facility] [place] [address] PCP - General Internal Medicine 01/27/22 documented as of this encounter
--- OUTSIDE RECORDS SUMMARY | 2023-11-27 04:02 | External Medical Summary | Summary of Care ---
Author Name Unknown Organization [facility] Address [address] [place] [address] Phone [phone] Care Team Providers Care Speech Therapist Early Intervention Name Role Phone Anahy Gr[facility] MD Primary Care Provider [phone] Reason for Visit * Reason Onset Date Comments Medication Question 11/14/2023 Encounter Details Date Type Department Care Team (Late st Contact Info) Description 11/14/2023 Telephone [facility] [address] [place] [address] Anahy Grayson MD [address] [place] [address] Medication Question Allergies No known [...] Oral Tablet (Crestor)Indications: Coronary artery disease involving [place] coronary artery of [place] heart without angina pectoris,HFrEF (heart failure with reduced ejection fraction) ([facility]),HTN, goal below 140/90,Dyslipidemia, goal LDL below 70,Palpitations [...] rheumatoid factor ([facility]) Inject 1.14 mL under the skin every 14 days. 2.28 mL 11 03/05/2023 Active Omeprazole 40 MG Oral Capsule Delayed Release (PriLOSEC) Take 1 Capsule by mouth in the morning. 1 hour before the first meal of the day.. 90 Capsule 3 03/15/2023 Active Sildenafil Citrate 20 MG Oral Tablet (Revatio)Indications: Raynaud's disease with gangrene ([facility]) TAKE ONE TABLET BY MOUTH EVERY MORNING , 1 TABLET AT NOON AND 2 TABLETS BEFORE BEDTIME 90 Tablet 2 03/30/2023 Active sulfaSALAzine 500 MG Oral Tablet Delayed Release (Azulfidine Entab) Take 1 Tablet by mouth in the morning. 2 tablets twice daily. Active Jardiance 10 MG Oral Tablet (Empagliflozin)Indica tions:HFrEF (heart failure with reduced ejection fraction) ([facility]) TAKE 1 TABLET BY MOUTH EVERY MORNING 90 Tablet 3 05/08/2023 Active Furosemide 20 MG Oral Tablet (Lasix)Indications:HF rEF (heart failure with reduced ejection fraction) ([facility]) Take 2 Tablets by mouth in [...] ejection fraction) ([facility]),PAF (paroxysmal atrial fibrillation) (HCC) TAKE 1 TABLET BY MOUTH TWICE DAILY EVERY MORNING AND BEFORE BEDTIME 180 Tablet 3 09/17/2023 Active Eliquis 5 MG Oral Tablet (Apixaban)Indications :Persistent atrial fibrillation (HCC) TAKE 1 TABLET BY MOUTH TWICE DAILY 180 Tablet 10/08/2023 Active oxyCODONE-Acetaminoph en 10-325 MG Oral Tablet (Percocet)Indications :Ischemic foot ulcer due to atherosclerosis of [place] artery of limb (HCC),Rheumatoid arthritis involving multiple sites with positive rheumatoid factor (HCC) Take 1 Tablet by mouth every 6 hours as needed for Pain, Severe. 120 Tablet 10/11/2023 Active Alendronate Sodium 70 MG Oral Tablet (Fosamax) TAKE ONE TABLET BY MOUTH EVERY WEEK ON SUNDAY 12 Tablet 3 10/12/2023 Active Spiriva Respimat 2.5 MCG/ACT Inhalation Aerosol Solution (Tiotropium [place] Monohydrate) Inhale 2 Puffs by mouth in the morning. 4 g 11 10/26/2023 Active documented as of this encounter (statuses as of 11/16/2023) Active Problems Problem Noted Date Diagnosed Date Substance abuse 10/17/2023 Last Assessment & Plan: [facility] UDS + meth 08/12 Moderate episode of [...] time I move") Medication Regimen o Other: favian, sigifredo prn Self-Management plan o Prednisone tapering dose [...] - 11/16/2023 9:06 AM EDT Printed out [facility] discharge summary for pt from November 02, 2023 There seems to be a little confusion with what is the correct does for this pt of the metoprolol. Please review the Metoprolol does. Thank you. * Telephone Encounter - Fredy Sarmiento MD - 11/15/2023 3:31 PM EDT Pt was hospitalized [facility] with D/C 11/02/23. H e needs a post hospital visit. May inform home health: Discharge summary indicates he should not take Sildenafil. Entresto 24-26 dose decreased to 1/2 tabtwice daily . Metoprolol dose decreased to total of 125mg daily ( he is to use Metoprolol Succinate. 100mg and 25mg daily * Telephone Encounter - Allison Esteban LPN - 11/15/2023 1:45 PM EDT Patient spouse was contacted and she states patient was seen at the ER a few days ago and is not sure what medications he is to be taking.She thinks they only discontinued the Sildenafil due to him getting ulcers. I did try to contact Abraham at [facility] to obtain the medication list they have on file but he did not answer and had to leave a message. Spouse would like some guidance on a referral for [facility]. He is currently in [facility] and due to insurance is only able [...] Zelaya CPhT - 11/14/2023 12:21 PM EDT [facility] home health OT is calling with questions about patients discharge medications. They are unsurewhat the patient should be taking. Patient is currently at [facility]. Please call patients EC to go over current needed medications. Caller is asking for high priority. Thank you, Kelli Zelaya Text[employer] Footwear Mechanic [facility] 11/14/2023,12:24 PM documented in this encounter Plan of Treatment Upcoming Encounters Date Type Department Care Team (Late st Contact Info) Description 11/21/2023 9:10 AM EDT [facility] [address] [facility] [phone] Perla Luque, [address] [facility] [address] 12/17/2023 11:00 AM EDT Home Visit [facility] [address] [place] [address] Jimmy Mitchell PA-C [address] [facility] [address] 12/18/2023 9:00 AM EDT Office Visit Cardiology, [facility] [address] [place] [address] Elizabeth Johnson CRNP [address] [facility] [address] 12/21/2023 1:40 PM EDT Office Visit [facility] [address] [place] [phone] Anahy Grayson MD [address] [place] [address] 01/17/2024 3:20 PM EDT Office Visit Neurology [facility] [address] [place] [address] Aparna Ruano PA-C [address] [facility] [place] [address] 02/20/2024 10:30 AM EDT Office Visit Vascular Surgery, [facility] [address] [facility] [place] [address] Tre Lange MD [address] [place] [address] Scheduled Procedures Name Priority Associated Diagnoses Date/Ti me COLONOSCOPY FLEXIBLE PROXIMAL DIAGNOSTIC Recall Colon cancer screening Health Maintenance Due Date Last Done Comments DISCUSS TOBACCO CESSATION (REFER TO SMARTSET #1532) 1965 COVID-19 Vaccine (#1) 02/09/1969 Alpha-1 Antitrypsin [...] D LEVEL ONCE IN A LIFETIME-USE SMARTSET# 16625 Completed 08/01/2023, 08/04/2021 GARDASIL-HPV IMMUNIZATION SERIES Aged Out No longer eligible based on patient's age to complete this topic MENINGOCOCCAL (MENACTRA/MENVEO) Aged Out No longer eligible based on patient's age to complete this topic documented as of this encounter Medical Devices Not on filedocumented as of this encounter Care Teams Speech Therapist Early Intervention Relationship Specialty Start Date End Date Anahy Grayson MD [address] [place] [address] PCP - General Internal Medicine 01/27/22 documented as of this encounter
--- OUTSIDE RECORDS SUMMARY | 2023-11-27 04:02 | External Medical Summary | Summary of Care ---
Author Name Unknown Organization [facility] Address [address] [place] [address] Phone [phone] Care Team Providers Care Ribbon Lap Machine Tender Name Role Phone Anahy Grayson MD Primary Care Provider [phone] Reason for Visit * Reason Onset Date Comments Medication Question 11/14/2023 Encounter Details Date Type Department Care Team (Late st Contact Info) Description 11/14/2023 Telephone [facility] [address] [place] [address] Anahy Grayson MD [address] [place] [address] Medication Question Allergies No known [...] Oral Tablet (Crestor)Indication s:Coronary artery disease involving [place] coronary artery of [place] heart without angina pectoris,HFrEF (heart failure with reduced ejection fraction) ([facility]),HTN, goal below 140/90,Dyslipidemia , goal LDL below [...] Active Sarilumab 200 MG/1.14ML Subcutaneous Solution Auto-injector (Calera)Indication s:Rheumatoid arthritis involving multiple sites with positive [...] with gangrene ([facility]) TAKE ONE TABLET BY MOUTH EVERY [...] factor ([facility]) TAKE 1 TO 2 TABLETS BY [...] ejection fraction) ([facility]),PAF (paroxysmal atrial fibrillation) ([facility]) TAKE 1 TABLET BY MOUTH TWICE DAILY EVERY MORNING AND BEFORE BEDTIME 180 Tablet 3 09/17/19 24 Active Eliquis 5 MG Oral Tablet (Apixaban)Indicatio ns:Persistent atrial fibrillation ([facility]) TAKE 1 TABLET BY MOUTH TWICE DAILY 180 Tablet 10/08/19 24 Active oxyCODONE-Acetamino phen 10-325 MG Oral Tablet (Percocet)Indicatio ns:Ischemic foot ulcer 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 He should be using Metoprolol Succinate 100mg , 1 1/2 tabs twice daily ie 150mg twice daily.New script sent to [facility] pharmacy * Telephone Encounter - Connie Berumen LPN - 11/16/2023 9:06 AM EDT Printed out [facility] discharge summary for pt from November 02, 2023 There seems to be a little confusion with what is the correct does for this pt of the metoprolol. Please review the Metoprolol does. Thank you. * Telephone Encounter - Florentin Sarmiento MD - 11/15/2023 3:31 PM EDT Pt was hospitalized [facility] with D/C 11/02/23. H e needs a [...] I did try to contact Abraham at [facility] to obtain the medication list they have on file but he did not answer and had to leave a message. Spouse would like some guidance on a referral for [facility]. He is currently in [facility] and due to insurance is [...] Zelaya CPhT - 11/14/2023 12:[address] [facility] home health OT is calling with questions about patients discharge medications. They are unsurewhat the patient should be taking. Patient is currently at [facility]. Please call patients EC to go over current needed medications. Caller is asking for high priority. Thank you, Kelli Zelaya Nps [facility] 11/14/2023,12:24 PM documented in this encounter Plan of Treatment Upcoming Encounters Date Type Department Care Team (Late st Contact Info) Description 11/21/2023 9:10 AM EDT Office Visit [facility] [address] [place] [facility] [place] [phone] Perla Luque DO [address] [place] [facility] [place] [address] 12/17/2023 11:00 AM EDT [facility] Visit [facility] [address] [facility] [place] [address] Jimmy Mitchell PA-C [address] [facility] [place] [phone] 12/18/2023 9:00 AM EDT Office Visit Cardiology, [facility] [address] [facility] [place] [address] Elizabeth Johnson CRNP [address] [facility] [place] [phone] 12/21/2023 1:40 PM EDT Office Visit [facility] [address] [facility] [phone] Anahy [facility] MD [address] [facility] [address] 01/17/2024 3:20 PM EDT Office Visit Neurology [facility] [address] [place] [address] Aparna Ruano PA-C [address] [place] [address] 02/20/2024 10:30 AM EDT Office Visit Vascular Surgery, [facility] [address] [place] [address] Tre Lange MD [address] [place] [address] Scheduled Procedures Name Priority Associated Diagnoses Date/Ti me COLONOSCOPY FLEXIBLE PROXIMAL DIAGNOSTIC Recall Colon cancer screening Health Maintenance Due Date Last Done Comments DISCUSS TOBACCO CESSATION (REFER TO SMARTSET #7932) 1965 COVID-19 Vaccine (#1) 02/09/1969 Alpha-1 Antitrypsin [...] Cancer Screening 07/24/2027 Lipid Panel 08/29/2027 08/28/2022, 03, 06/06/2021, Additional history exists DTaP,Tdap,and Td Vaccines (2 - Td or Tdap) 02/11/2030 02/12/2020, 03/28/2007 Hepatitis B Completed 05/27/2019, 09/25, 08/26/2018 VITAMIN D LEVEL ONCE IN A LIFETIME-USE SMARTSET# 09429 Completed 08/01/2023, 08/04/2021 GARDASIL-HPV IMMUNIZATION SERIES Aged Out No longer eligible based on patient's age to complete this topic MENINGOCOCCAL (MENACTRA/MENVEO) Aged Out No longer eligible based on patient's age to complete this topic documented as of this encounter Medical Devices Not on filedocumented as of this encounter Visit Diagnoses Diagnosis Other cardiomyopathy (HCC)- Primary documented in this encounter Care Teams Ribbon Lap Machine Tender Relationship Specialty Start Date End Date Anahy [facility] MD [address] [place] [address] PCP - General Internal Medicine 01/27/22 documented as of this encounter
--- OUTSIDE RECORDS SUMMARY | 2023-11-27 04:03 | External Medical Summary | Summary of Care ---
Author Name Unknown Organization [facility] Address [address] [place] [address] Phone [phone] Care Team Providers Care Cpc Name Role Phone Anahy Grayson MD Primary Care Provider [phone] Reason for Visit * Reason Onset Date Comments Medication Question 11/14/2023 Encounter Details Date Type Department Care Team (Late st Contact Info) Description 11/14/2023 Telephone [facility] [address] [place] [address] Anahy Grayson MD [address] [place] [address] Medication Question Allergies No known active allergiesdocumented as of this encounter (statuses as of 11/15/2023) Medications Medication Sig Dispensed Refills Start Date [...] Oral Tablet (Crestor)Indications: Coronary artery disease involving [place] coronary artery of [place] heart without angina pectoris,HFrEF (heart failure with [...] Oral Tablet (Revatio)Indications: Raynaud's disease with gangrene ([facility]) [...] tions:HFrEF (heart failure with reduced ejection fraction) ([facility]) TAKE 1 TABLET BY MOUTH EVERY MORNING 90 Tablet 3 05/08/2023 Active Furosemide 20 MG Oral Tablet (Lasix)Indications:HF rEF (heart failure with reduced ejection fraction) ([facility] [...] PVCs,HFrEF (heart failure with reduced ejection fraction) ([facility]),PAF (paroxysmal atrial fibrillation) (HCC) TAKE 1 TABLET BY MOUTH TWICE DAILY EVERY MORNING AND BEFORE BEDTIME 180 Tablet 3 09/17/2023 Active Eliquis 5 MG Oral Tablet (Apixaban)Indications :Persistent atrial fibrillation (HCC) TAKE 1 TABLET BY MOUTH TWICE DAILY 180 Tablet 10/08/2023 Active oxyCODONE-Acetaminoph en 10-325 MG Oral Tablet (Percocet)Indications :Ischemic foot ulcer 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 120 Tablet 10/11/2023 Active Alendronate Sodium 70 MG Oral Tablet (Fosamax) TAKE ONE TABLET BY MOUTH EVERY WEEK ON SUNDAY 12 Tablet 3 10/12/2023 Active Spiriva Respimat 2.5 MCG/ACT Inhalation Aerosol Solution (Tiotropium [place] Monohydrate) Inhale 2 Puffs by mouth in the morning. 4 g 11 10/26/2023 Active documented as of this encounter (statuses as of 11/15/2023) Active Problems Problem Noted Date Diagnosed Date Substance abuse 10/17/2023 Last Assessment & Plan: [facility] UDS + meth 08/12 Moderate episode of [...] as of this encounter (statuses as of 11/15/2023) Resolved Problems Problem Noted Date Diagnosed Date [...] as of this encounter (statuses as of 11/15/2023) Immunizations Name Administration Dates Next Due HepA [...] 11/15/2023 3:31 PM EDT Pt was hospitalized [facility] with D/C 11/02/23. H e needs a [...] I did try to contact Abraham at [facility] to obtain the medication list they have on file but he did not answer and had to leave a message. Spouse would like some guidance on a referral for [facility]. He is currently in [facility] [place] and due to insurance is only able [...] should be taking. Patient is currently at [facility]. Please call patients EC to go over current needed medications. Caller is asking for high priority. Thank you, Kelli Zelaya Diet Technician Registered [facility] 11/14/2023,12:24 PM documented in this encounter Plan of Treatment Upcoming Encounters Date Type Department Care Team (Late st Contact Info) Description 11/21/2023 9:10 AM EDT Office Visit [place] [address] [place] [phone] Perla Luque, [address] [place] [address] 12/17/2023 11:00 AM EDT Home Visit [facility] [address] [place] [address] Jimmy Mitchell PA-C [address] [place] [address] 12/18/2023 9:00 AM EDT Office Visit Cardiology, [facility] [address] [place] [address] Elizabeth Johnson CRNP [address] [place] [address] 12/21/2023 1:40 PM EDT Office Visit [facility] [address] [place] [address] Anahy Grayson MD [address] [place] [address] 01/17/2024 3:20 PM EDT Office Visit Neurology [facility] [address] [facility] [place] [address] Aparna Ruano PA-C [address] [facility] [place] [address] 02/20/2024 10:30 AM EDT Office Visit Vascular Surgery, [facility] [address] [facility] [place] [address] Tre Lange MD [address] [place] [address] Scheduled Procedures Name Priority Associated Diagnoses Date/Ti me COLONOSCOPY FLEXIBLE PROXIMAL DIAGNOSTIC Recall Colon cancer screening Health Maintenance Due Date Last Done Comments DISCUSS TOBACCO CESSATION (REFER TO SMARTSET #8080) 1965 COVID-19 Vaccine (#1) 02/09/1969 Alpha-1 Antitrypsin [...] D LEVEL ONCE IN A LIFETIME-USE SMARTSET# 53737 Completed 08/01/2023, 08/04/2021 GARDASIL-HPV IMMUNIZATION SERIES Aged Out No longer eligible based on patient's age to complete this topic MENINGOCOCCAL (MENACTRA/MENVEO) Aged Out No longer eligible based on patient's age to complete this topic documented as of this encounter Medical Devices Not on filedocumented as of this encounter Care Teams Cpc Relationship Specialty Start Date End Date Anahy Grayson MD [address] [place] [address] PCP - General Internal Medicine 01/27/22 documented as of this encounter
--- OUTSIDE RECORDS SUMMARY | 2023-11-27 04:03 | External Medical Summary ---
Author Name Unknown Address Unknown Organization [facility] [address] [place] [address] Laboratory Report Ordering Provider Test Date Status [facility] 11/03/2023 08:07:09 Final Observation Date Value Abnormality Reference (Units ) Status BUN 11/03/2023 08:07:09 21 Above high normal 6-20 (mg/dL) Final Creatinine 11/03/2023 08:07:09 0.7 0.6-1.2 (mg/dL) Final Glomerular filtration rate/1.73 sq M.predicted [Volume Rate/Area] in Serum, Plasma or Blood by Creatinine-based formula (CKD-EPI) 11/03/2023 08:07:09 >90 >=60 (mL/min) Final eGFR is calculated based on the CKD-EPI 2020 equation Sodium 11/03/2023 08:07:09 135 135-146 (m mol/L) Final Potassium 11/03/2023 08:07:09 4.9 3.5-5.1 (m mol/L) Final Cl 11/03/2023 08:07:09 98 98-107 (mm ol/L) Final CO2 11/03/2023 08:07:09 27 22-32 (mmo l/L) Final Anion gap 11/03/2023 08:07:09 10 7-15 (mmol /L) Final Glucose 11/03/2023 08:07:09 103 70-120 (mg /dL) Final Albumin 11/03/2023 08:07:09 2.8 Below low normal 3.8 -5.0 (g/dL) Final AST (Aspartate aminotransferase) 11/03/2023 08:07:09 34 10-50 (U/L) Fin al Alk Phos 11/03/2023 08:07:09 122 35-130 (U/ L) Final Bilirubin, Total 11/03/2023 08:07:09 0.2 <=1 .2 (mg/dL) Final Calcium 11/03/2023 08:07:09 9.3 8.4-10.2 ( mg/dL) Final Protein 11/03/2023 08:07:09 6.3 6.0-8.3 (g /dL) Final ALT (Alanine aminotransferase) 11/03/2023 08:07:09 46 10-50 (U/L) John tran Performing Location [facility] [place] [address] [place] [address]
--- OUTSIDE RECORDS SUMMARY | 2023-11-27 04:03 | External Medical Summary | Summary of Care ---
Author Name Unknown Organization [facility] Address [address] [place] [address] Phone [phone] Care Team Providers Care Cream Dipper Name Role Phone Anahy rGayson MD Primary Care Provider [phone] Encounter Details Date Type Department Care Team (Late st Contact Info) Description 08/02/2023 Telephone Vascular Surg [facility] [address] [place] [address] Galo Gold MD [address] [place] [address] Allergies No known active allergiesdocumented as of this encounter (statuses as of 11/01/2023) Medications Medication Sig Dispensed Refills Start Date [...] Oral Tablet (Crestor)Indicat ions:Coronary artery disease involving [place] coronary artery of [place] heart without angina pectoris,HFrEF (heart failure with reduced ejection fraction) ([facility]),HTN, goal below 140/90,Dyslipide leigh, goal LDL below [...] hours as needed for Nausea. 20 Tablet 3 Active Sarilumab 200 MG/1.14ML Subcutaneous Solution Auto-injector (AccelOnezaHackPad)Indicat ions:Rheumatoid arthritis involving multiple sites with positive rheumatoid factor ([facility]) Inject 1.14 mL under the skin every 14 days. 2.28 mL 11 3 Active Omeprazole 40 MG Oral Capsule Delayed Release (PriLOSEC) Take 1 Capsule by mouth in the morning. 1 hour before the first meal of the day.. 90 Capsule 3 3 Active Sildenafil Citrate 20 MG Oral Tablet (Revatio)Indicat ions:Raynaud's disease with gangrene ([facility]) TAKE ONE TABLET BY MOUTH EVERY MORNING , 1 TABLET AT NOON AND 2 TABLETS BEFORE BEDTIME 90 Tablet 2 3 Active sulfaSALAzine 500 MG Oral Tablet Delayed Release (Azulfidine Entab) Take 1 Tablet by mouth in the morning. 2 tablets twice daily. Active Jardiance 10 MG Oral Tablet (Empagliflozin)I ndications:HFrEF (heart failure with reduced ejection fraction) ([facility]) TAKE 1 TABLET BY MOUTH EVERY MORNING 90 Tablet 3 3 Active Furosemide 20 MG Oral Tablet (Lasix)Indicatio ns:HFrEF (heart failure with reduced ejection fraction) ([facility]) Take 2 Tablets by mouth in the morning. 180 Tablet 3 4 Active Additional Information Patient taking differently:40 mg Oral Daily(AM),Pt takes 2 tabs every morning and additional 1 in the afternoon as needed for edema, Reported on 09/23/2023 predniSONE 5 MG Oral Tablet (Deltasone)Indic ations:Rheumatoi d arthritis involving multiple sites with positive rheumatoid factor (HCC) TAKE 1 TO 2 TABLETS BY MOUTH ONCE DAILY FOR RHEUMATOID ARTHRITIS 60 Tablet 5 4 Active Spiriva Respimat 2.5 MCG/ACT Inhalation Aerosol Solution (Tiotropium [place] Monohydrate) Inhale by mouth 2 Puffs in the morning. 4 g 11 2 10/24/19 24 Discontinued(Ref ill) Entresto 24-26 MG Oral Tablet (sacubitril-vals evangelist 24-26 mg per tab) Take 1 Tablet by mouth in the morning and 1 Tablet before bedtime. 180 Tablet 3 3 09/17/19 24 Discontinued Eliquis 5 MG Oral Tablet (Apixaban)Indica tions:Persistent atrial fibrillation (HCC) TAKE ONE TABLET BY MOUTH 2 TIMES A DAY 180 Tablet 3 3 10/08/19 24 Discontinued Metoprolol Succinate ER 25 MG Oral Tablet Extended Release 24 Hour (toPROL XL) Take 1 Tablet by mouth in the morning and 1 Tablet before bedtime. In addition to 100 mg daily. Total of 125 mg twice per day.. 180 Tablet 3 3 09/04/19 24 Discontinued Spironolactone 25 MG Oral Tablet (Aldactone) Take 0.5 Tablets by mouth in the morning. 15 Tablet 5 3 08/08/19 24 Discontinued Alendronate Sodium 70 MG Oral Tablet (Fosamax) Take 1 Tablet by mouth once a week. 4 Tablet 12 3 10/12/19 24 Discontinued oxyCODONE-Acetam inophen 10-325 MG Oral Tablet (Percocet) Take 1 Tablet by mouth every 6 hours as needed for Pain, Severe. Do not start before July 25, 2023. 120 Tablet 4 08/30/19 24 Discontinued(Ref ill) documented as of this encounter (statuses as of 11/01/2023) Active Problems Problem Noted Date Diagnosed Date Substance abuse 10/17/2023 Last Assessment & Plan: [facility] UDS + meth 08/12 Moderate [...] as of this encounter (statuses as of 11/01/2023) Resolved Problems Problem Noted Date Diagnosed Date [...] as of this encounter (statuses as of 11/01/2023) Immunizations Name Administration Dates Next Due HepA [...] Telephone Encounter - Tracie Villarreal OSA - 08/02/2023 8:00 AM EST Error documented in this encounter Plan of Treatment Upcoming Encounters Date Type Department Care Team (Late st Contact Info) Description 11/06/2023 12:30 PM EDT [facility] Visit [facility] [address] [address] Cindy Underwood RN [address] [place] [address] 12/17/2023 11:00 AM EDT [facility] Visit [facility] [address] [place] [address] Jimmy Mitchell PA-C [address] [place] [address] 12/18/2023 9:00 AM EDT Office Visit Cardiology, [facility] [address] [place] [address] Elizabeth Johnson CRNP [address] [place] [address] 12/21/2023 1:40 PM EDT Office Visit [address] [place] [phone] Anahy Grayson MD [address] [place] [address] 01/17/2024 3:20 PM EDT Office Visit Neurology [facility] [address] [facility] [address] Aparna Ruano PA-C [address] [facility] [place] [address] 02/20/2024 10:30 AM EDT Office Visit Vascular Surgery, [facility] [address] [facility] [place] [address] Tre Lange MD [address] [place] [address] Scheduled Procedures Name Priority Associated Diagnoses Date/Ti me COLONOSCOPY FLEXIBLE PROXIMAL DIAGNOSTIC Recall Colon cancer screening Health Maintenance Due Date Last Done Comments DISCUSS TOBACCO CESSATION (REFER TO SMARTSET #3904) 1965 COVID-19 Vaccine (#1) 02/09/1969 Alpha-1 Antitrypsin [...] D LEVEL ONCE IN A LIFETIME-USE SMARTSET# [id number] Completed 08/01/2023, 08/04/2021 GARDASIL-HPV IMMUNIZATION SERIES Aged Out No longer eligible based on patient's age to complete this topic MENINGOCOCCAL (MENACTRA/MENVEO) Aged Out No longer eligible based on patient's age to complete this topic documented as of this encounter Medical Devices Not on filedocumented as of this encounter Care Teams Cream Dipper Relationship Specialty Start Date End Date Anahy Grayson MD [address] [place] [address] PCP - General Internal Medicine 01/27/22 documented as of this encounter
--- OUTSIDE RECORDS SUMMARY | 2023-11-27 04:03 | External Medical Summary | Summary of Care ---
Author Name Unknown Organization [facility] Address [address] [place] [address] Phone [phone] Care Team Providers Care Application Security Specialist Name Role Phone Anahy Grayson MD Primary Care Provider [phone] Encounter Details Date Type Department Care Team (Late st Contact Info) Description 11/15/[address] 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 120 Tablet 10/11/2023 Active Alendronate Sodium 70 MG Oral Tablet (Fosamax) TAKE ONE TABLET BY MOUTH EVERY WEEK ON SUNDAY 12 Tablet 3 10/12/2023 Active Spiriva Respimat 2.5 MCG/ACT Inhalation Aerosol Solution (Tiotropium [place] Monohydrate) Inhale 2 Puffs by mouth in the morning. 4 g 11 10/26/2023 Active documented as of this encounter (statuses as of 11/15/2023) Active Problems Problem Noted Date Diagnosed Date Substance abuse 10/17/2023 Last Assessment & Plan: [facility] UDS + meth 08/12 Moderate episode [...] necessity of the requested service. Sent to [facility]> documented in this encounter Plan of Treatment Upcoming Encounters Date Type Department Care Team (Late st Contact Info) Description 11/21/2023 9:10 AM EDT Office Visit [facility] [address] [place] [address] Perla Luque, DO [address] [place] [address] 12/17/2023 11:00 AM EDT [facility] [place] [address] [address] Jimmy Mitchell PA-C [address] [place] [address] 12/18/2023 9:00 AM EDT Office Visit Cardiology, [facility] [address] [address] Elizabeth Johnson CRNP [address] [place] [address] 12/21/2023 1:40 PM EDT Office Visit [facility] [address] [place] [phone] Anahy Grayson MD [address] [place], [place] [address] 01/17/2024 3:20 PM EDT Office Visit Neurology [facility] [address] [facility] [place] [address] Aparna Ruano PA-C [address] [facility] [place] [address] 02/20/2024 10:30 AM EDT Office Visit Vascular Surgery, [facility] [address] [place] [address] Tre Lange MD [address] [place] [address] Scheduled Procedures Name Priority Associated Diagnoses Date/Ti me COLONOSCOPY FLEXIBLE PROXIMAL DIAGNOSTIC Recall Colon cancer screening Health Maintenance Due Date Last Done Comments DISCUSS TOBACCO CESSATION (REFER TO SMARTSET #1822) 1965 COVID-19 Vaccine (#1) 02/09/1969 Alpha-1 Antitrypsin [...] D LEVEL ONCE IN A LIFETIME-USE SMARTSET# 96826 Completed 08/01/2023, 08/04/2021 GARDASIL-HPV IMMUNIZATION SERIES Aged Out No longer eligible based on patient's age to complete this topic MENINGOCOCCAL (MENACTRA/MENVEO) Aged Out No longer eligible based on patient's age to complete this topic documented as of this encounter Medical Devices Not on filedocumented as of this encounter Care Teams Application Security Specialist Relationship Specialty Start Date End Date Anahy Grayson MD [address] [place] [address] PCP - General Internal Medicine 01/27/22 documented as of this encounter
--- OUTSIDE RECORDS SUMMARY | 2023-11-27 04:03 | External Medical Summary ---
Author Name Unknown Address Unknown Organization [facility] [address] [place] [address] Laboratory Report Ordering Provider Test Date Status HY,DEPAMPHILIS 11/10/2023 05:50:56 Final Observation Date Value Abnormality Reference (Units ) Status BUN 11/10/2023 05:50:56 26 Above high normal 6-20 (mg/dL) Final Creatinine 11/10/2023 05:50:56 0.9 0.6-1.2 (mg/dL) Final Glomerular filtration rate/1.73 sq M.predicted [Volume Rate/Area] in Serum, Plasma or Blood by Creatinine-based formula (CKD-EPI) 11/10/2023 05:50:56 >90 >=60 (mL/min) Final eGFR is calculated based on the CKD-EPI 2020 equation Sodium 11/10/2023 05:50:56 135 135-146 (m mol/L) Final Potassium 11/10/2023 05:50:56 4.5 3.5-5.1 (m mol/L) Final Cl 11/10/2023 05:50:56 97 Below low normal 98- 107 (mmol/L) Final CO2 11/10/2023 05:50:56 29 22-32 (mmo l/L) Final Anion gap 11/10/2023 05:50:56 9 7-15 (mmol /L) Final Glucose 11/10/2023 05:50:56 110 70-120 (mg /dL) Final Calcium 11/10/2023 05:50:56 9.0 8.4-10.2 ( mg/dL) Final Performing Location [facility] [place] [address] [place] [address]
--- OUTSIDE RECORDS SUMMARY | 2023-11-27 04:03 | External Medical Summary ---
Author Name Unknown Address Unknown Organization [facility] [place] [address] [place] [address] Laboratory Report Ordering Provider Test Date Status HY,DEPAMPHILIS 11/10/2023 05:50:56 Final Observation Date Value Abnormality Reference (Units ) Status WBC, Total 11/10/2023 05:50:56 8.25 4.00-10.8 0 (K/uL) Final RBC 11/10/2023 05:50:56 4.44 4.50-5.25 (M/uL) Final Hemoglobin 11/10/2023 05:50:56 10.7 Below low normal 14 .0-16.8 (g/dL) Final HCT 11/10/2023 05:50:56 35.3 Below low normal 40. 0-48.4 (%) Final MCV 11/10/2023 05:50:56 79.5 82.0-99.5 (fL) Final MCH 11/10/2023 05:50:56 24.1 27.0-34.0 (pg) Final MCHC 11/10/2023 05:50:56 30.3 32.0-36.0 (g/dL) Final RDW 11/10/2023 05:50:56 20.3 11.5-15.5 (%) Final Platelets 11/10/2023 05:50:56 515 Above high normal 14 0-400 (K/uL) Final MPV 11/10/2023 05:50:56 9.3 6.6-11.1 ( fL) Final Performing Location [facility] [place] [address] [place] [address]
--- OUTSIDE RECORDS SUMMARY | 2023-11-27 04:03 | External Medical Summary | Summary of Care ---
Author Name Unknown Organization [facility] Address [address] [place] [address] Phone [phone] Care Team Providers Care Plant Worker Name Role Phone Anahy Grayson MD Primary Care Provider [phone] Reason for Visit * Reason Onset Date Comments Medication Question 11/14/2023 Encounter Details Date Type Department Care Team (Late st Contact Info) Description 11/14/2023 Telephone [facility] [address] [place] [address] Anahy Grayson MD [address] [place] [address] Medication Question Allergies No known [...] Oral Tablet (Crestor)Indications: Coronary artery disease involving [place] coronary artery of [place] heart without angina pectoris,HFrEF (heart failure with reduced ejection fraction) ([facility]),HTN, goal below 140/90,Dyslipidemia, goal LDL below [...] Tablet (Revatio)Indications: Raynaud's disease with gangrene ([facility]) TAKE [...] failure with reduced ejection fraction) ([facility]),PAF (paroxysmal atrial fibrillation) (HCC) TAKE 1 TABLET BY MOUTH TWICE DAILY EVERY MORNING AND BEFORE BEDTIME 180 Tablet 3 09/17/2023 Active Eliquis 5 MG Oral Tablet (Apixaban)Indications :Persistent atrial fibrillation (HCC) TAKE 1 TABLET BY MOUTH TWICE DAILY 180 Tablet 10/08/2023 Active oxyCODONE-Acetaminoph en 10-325 MG Oral Tablet (Percocet)Indications :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 120 Tablet 10/11/2023 Active Alendronate Sodium 70 MG Oral Tablet (Fosamax) TAKE ONE TABLET BY MOUTH EVERY WEEK ON SUNDAY 12 Tablet 3 10/12/2023 Active Spiriva Respimat 2.5 MCG/ACT Inhalation Aerosol Solution (Tiotropium [place] Monohydrate) Inhale 2 Puffs by mouth in the morning. 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 H e needs a [...] I did try to contact Abraham at [facility] to obtain the medication list they have on file but he did not answer and had to leave a message. Spouse would like some guidance on a referral for [facility]. He is currently in [place] [facility] [place] and due to insurance is only able [...] Zelaya CPhT - 11/14/2023 12:21 PM EDT [facility] home health OT is calling with questions about patients discharge medications. They are unsurewhat the patient should be taking. Patient is currently at [facility]. Please call patients EC to go over current needed medications. Caller is asking for high priority. Thank you, Kelli Zelaya Weekday Babysitter [facility] 11/14/2023,12:24 PM documented in this encounter Plan of Treatment Upcoming Encounters Date Type Department Care Team (Late st Contact Info) Description 11/21/2023 9:10 AM EDT Office Visit [facility] [address] [place] [phone] Perla Luque, [address] [place] [address] 12/17/2023 11:00 AM EDT [facility] Visit [facility] [address] [place] [address] Jimmy Mitchell PA-C [address] [place] [address] 12/18/2023 9:00 AM EDT Office Visit Cardiology, [facility] [address] [place] [address] Elizabeth Johnson CRNP [address] [place] [address] 12/21/2023 1:40 PM EDT Office Visit [facility] [address] [place] [address] Anhay Grayson MD [address] [place] [address] 01/17/2024 3:20 PM EDT Office Visit [facility] [address] [facility] [place] [address] Aparna Ruano PA-C [address] [facility] [place] [address] 02/20/2024 10:30 AM EDT Office Visit Vascular Surgery, [facility] [address] [facility] [address] Tre Lange MD [address] [place] [address] Scheduled Procedures Name Priority Associated Diagnoses Date/Ti me COLONOSCOPY FLEXIBLE PROXIMAL DIAGNOSTIC Recall Colon cancer screening Health Maintenance Due Date Last Done Comments DISCUSS TOBACCO CESSATION (REFER TO SMARTSET #1192) 1965 COVID-19 Vaccine (#1) 02/09/1969 Alpha-1 Antitrypsin [...] D LEVEL ONCE IN A LIFETIME-USE SMARTSET# 87823 Completed 08/01/2023, 08/04/2021 GARDASIL-HPV IMMUNIZATION SERIES Aged Out No longer eligible based on patient's age to complete this topic MENINGOCOCCAL (MENACTRA/MENVEO) Aged Out No longer eligible based on patient's age to complete this topic documented as of this encounter Medical Devices Not on filedocumented as of this encounter Care Teams Plant Worker Relationship Specialty Start Date End Date Anahy Grayson MD [address] [place] [address] PCP - General Internal Medicine 01/27/22 documented as of this encounter
--- OUTSIDE RECORDS SUMMARY | 2023-11-27 04:03 | External Medical Summary ---
Author Name Unknown Address Unknown Organization [id number]:[facility] [address] [place] [address] Laboratory Report Ordering Provider Test Date Status [facility] 11/03/2023 08:07:09 Final Observation Date Value Abnormality Reference (Units ) Status WBC, Total 11/03/2023 08:07:09 7.71 4.00-10.8 0 (K/uL) Final RBC 11/03/2023 08:07:09 4.42 4.50-5.25 (M/uL) Final Hemoglobin 11/03/2023 08:07:09 10.6 Below low normal 14 .0-16.8 (g/dL) Final HCT 11/03/2023 08:07:09 35.0 Below low normal 40. 0-48.4 (%) Final MCV 11/03/2023 08:07:09 79.2 82.0-99.5 (fL) Final MCH 11/03/2023 08:07:09 24.0 27.0-34.0 (pg) Final MCHC 11/03/2023 08:07:09 30.3 32.0-36.0 (g/dL) Final RDW 11/03/2023 08:07:09 19.2 11.5-15.5 (%) Final Platelets 11/03/2023 08:07:09 573 Above high normal 14 0-400 (K/uL) Final MPV 11/03/2023 08:07:09 9.4 6.6-11.1 ( fL) Final Performing Location [facility] [address] [place] [address]
--- OUTSIDE RECORDS SUMMARY | 2023-11-27 04:03 | External Medical Summary ---
Author Name Unknown Address Unknown Organization [id number]:[facility] [place] [address] Laboratory Report Ordering Provider Test Date Status BELLA MO 11/07/2023 06:11:14 Final Observation Date Value Abnormality Reference (Units ) Status BUN 11/07/2023 06:11:14 20 6-20 (mg/dL) Final Creatinine 11/07/2023 06:11:14 0.9 0.6-1.2 (mg/dL) Final Glomerular filtration rate/1.73 sq M.predicted [Volume Rate/Area] in Serum, Plasma or Blood by Creatinine-based formula (CKD-EPI) 11/07/2023 06:11:14 >90 >=60 (mL/min) Final eGFR is calculated based on the CKD-EPI 2020 equation Sodium 11/07/2023 06:11:14 135 135-146 (m mol/L) Final Potassium 11/07/2023 06:11:14 4.7 3.5-5.1 (m mol/L) Final Cl 11/07/2023 06:11:14 98 98-107 (mm ol/L) Final CO2 11/07/2023 06:11:14 28 22-32 (mmo l/L) Final Anion gap 11/07/2023 06:11:14 9 7-15 (mmol /L) Final Glucose 11/07/2023 06:11:14 103 70-120 (mg /dL) Final Calcium 11/07/2023 06:11:14 8.9 8.4-10.2 ( mg/dL) Final Performing Location [facility] [place] [address]
--- OUTSIDE RECORDS SUMMARY | 2023-11-27 04:03 | External Medical Summary ---
Author Name Unknown Address Unknown Organization [id number]:[facility] [address] [place] [address] Laboratory Report Ordering Provider Test Date Status LAEK EAST 11/03/2023 08:07:09 Final Observation Date Value Abnormality Reference (Units ) Status SYNC LEUKOCYTES IN BLOOD BY AUTOMATED COUNT 11/03/2023 08:07:09 7.71 4.00-10.80 (K/uL) Final Neutrophils/100 leukocytes in Blood by Manual count 11/03/2023 08:07:09 81.0 Above high normal 40.0-75.0 (%) Final Lymphocytes/100 leukocytes in Blood by Manual count 11/03/2023 08:07:09 11.0 Below low normal 18.0-42.0 (%) Final Monocytes/100 leukocytes in Blood by Manual count 11/03/2023 08:07:09 4.0 1.0-11.0 (%) Final Eosinophils/100 leukocytes in Blood by Manual count 11/03/2023 08:07:09 4.0 0.0-6.0 (%) Final Neutrophils [#/volume] in Blood by Manual count 11/03/2023 08:07:09 6.25 1.80-7.70 (K/uL) Final Lymphocytes [#/volume] in Blood by Manual count 11/03/2023 08:07:09 0.85 Below low normal 1.00-4.80 (K/uL) Final Monocytes [#/volume] in Blood by Manual count 11/03/2023 08:07:09 0.31 0.00-1.10 (K/uL) Final Eosinophils [#/volume] in Blood by Manual count 11/03/2023 08:07:09 0.31 0.00-0.70 (K/uL) Final Nucleated erythrocytes/100 leukocytes [Ratio] in Blood by Automated count 11/03/2023 08:07:09 Final Performing Location [facility] [place] [address] [place] [address]
--- OUTSIDE RECORDS SUMMARY | 2023-11-27 04:04 | External Medical Summary | Summary of Care ---
Author Name Unknown Organization [facility] Address [address] [place] [address] Phone [phone] Care Team Providers Care Towel Hemmer Name Role Phone Anahy Grayson MD Primary Care Provider [phone] Reason for Visit * Reason Onset Date Comments Medication Refill 10/24/2023 Encounter Details Date Type Department Care Team (Late st Contact Info) Description 10/24/2023 Refill [facility] [address] [place] [address] Anahy Grayson MD [address] [place] [address] Allergies No known active allergiesdocumented as of this encounter (statuses as of 10/26/2023) Medications Medication Sig Dispensed Refills Start Date [...] Oral Tablet (Crestor)Indications :Coronary artery disease involving [place] coronary artery of [place] heart without angina pectoris,HFrEF (heart failure with [...] Oral Tablet (Revatio)Indications :Raynaud's disease with gangrene ([facility]) TAKE ONE TABLET BY MOUTH EVERY MORNING , 1 TABLET AT NOON AND 2 TABLETS BEFORE BEDTIME 90 Tablet 2 03/30/2023 Active sulfaSALAzine 500 MG Oral Tablet Delayed Release (Azulfidine Entab) Take 1 Tablet by mouth in the morning. 2 tablets twice daily. 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 120 Tablet 10/11/2023 Active Alendronate Sodium 70 MG Oral Tablet (Fosamax) TAKE ONE TABLET BY MOUTH EVERY WEEK ON SUNDAY 12 Tablet 3 10/12/2023 Active Spiriva Respimat 2.5 MCG/ACT Inhalation Aerosol Solution (Tiotropium [place] Monohydrate) Inhale 2 Puffs by mouth in the morning. 4 g 11 10/26/2023 Active Spiriva Respimat 2.5 MCG/ACT Inhalation Aerosol Solution (Tiotropium [place] Monohydrate) Inhale by mouth 2 Puffs in the morning. 4 g 11 03/21/2022 10/24/19 24 Discontinu ed(Refill) documented as of this encounter (statuses as of 10/26/2023) Active Problems Problem Noted Date Diagnosed Date Substance abuse 10/17/2023 Last Assessment & Plan: [facility] UDS + meth 08/12 Moderate episode of [...] factor 03/07/2018 Last Assessment & Plan: On pricilla Chronic low dose prednisone Prn percocet managed by PCP MEDICATION USE AGREEMENT 06/25/2017 Tear of lateral meniscus of knee 02/22/2016 Knee pain 12/27/2015 DJD (degenerative joint disease) 01/15/2014 Erectile dysfunction 01/15/2014 Tobacco use disorder 01/15/2014 documented as of this encounter (statuses as of 10/26/2023) Resolved Problems Problem Noted Date Diagnosed Date [...] as of this encounter (statuses as of 10/26/2023) Immunizations Name Administration Dates Next Due HepA [...] encounter Miscellaneous Notes * Telephone Encounter - Andrew Moore RPh - 10/26/2023 6:59 AM EDTSigned Prescriptions: Disp Refills Spiriva Respimat 2.5 MCG/ACT Inhalation Ae*4 g 11 Sig: Inhale 2 Puffs by mouth in the morning. Authorizing Provider: ANAHY GRAYSON Ordering User: ANDREW MOORE * Telephone Encounter - Sherin Weller, life consultant - 10/24/2023 4:10 PM EDT Did you pend patient's preferred pharmacy and medication before forwarding?yes Pharmacy: [id number] [place] Pending Prescriptions: Disp Refills Spiriva Respimat 2.5 MCG/ACT Inhalation A*4 g 11 Sig: Inhale 2 Puffs by mouth in the morning. Last Visit: 09/21/2023 (in office), 06/15/2020 (telemedicine) Next Visit: 12/21/2023 If no future appointments scheduled, and last appointment is greater than a year ago, please schedule patient for a follow-up appointment Last date the medication was ordered: Is this request for a controlled substance?No [...] Care Team (Late st Contact Info) Description 10/26/2023 11:00 AM EDT Scheduled Telephone [facility], [facility] [address] [place] [address] Coordinator, [facility] [address] [address] 11/06/2023 12:30 PM EDT [facility], [facility] [address] [place] [address] Cindy Underwood RN [address] [place] [address] 12/17/2023 11:00 AM EDT [facility], [facility] [address] [place] [address] Jimmy Mitchell PA-C [address] [place] [address] 12/18/2023 9:00 AM EDT Office Visit Cardiology, [facility] [address] [place] [address] Elizabeth Johnson CRNP [address] [place] [address] 12/21/2023 1:40 PM EDT [address] [address] Anahy Grayson MD [address] [place] [address] 01/17/2024 3:20 PM EDT Office Visit Neurology [facility] [address] [place] [address] Aparna Ruano PA-C [address] [facility] [place] [address] 02/20/2024 10:30 AM EDT Office Visit Vascular Surgery, [facility] [address] [place] [address] Tre Lange MD [address], [place] [id number] Scheduled Procedures Name Priority Associated Diagnoses Date/Ti [...] D LEVEL ONCE IN A LIFETIME-USE SMARTSET# [id number] Completed 08/01/2023, 08/04/2021 GARDASIL-HPV IMMUNIZATION SERIES Aged Out No longer eligible based on patient's age to complete this topic MENINGOCOCCAL (MENACTRA/MENVEO) Aged Out No longer eligible based on patient's age to complete this topic documented as of this encounter Medical Devices Not on filedocumented as of this encounter Care Teams Towel Hemmer Relationship Specialty Start Date End Date Anahy Grayson MD [address] [place] [facility] [place] [address] PCP - General Internal Medicine 01/27/22 documented as of this encounter
--- OUTSIDE RECORDS SUMMARY | 2023-11-27 04:04 | External Medical Summary | Summary of Care ---
Author Name Unknown Organization [facility] Address [address] [place] [address] Phone [phone] Care Team Providers Care Assembly Inspector Name Role Phone Anahy Grayson MD Primary Care Provider [phone] Reason for Visit * Reason Onset Date Comments Follow Up 10/24/2023 Encounter Details Date Type Department Care Team (Late st Contact Info) Description 10/24/2023 1:00 PM EDT Scheduled Telephone [facility], [facility] [address] [place] [address] Jimmy Mitchell PA-C [address] [place] [address] Allergies No known active allergiesdocumented as of this encounter (statuses as of 10/30/2023) Medications Medication Sig Dispensed Refills Start Date [...] Oral Tablet (Crestor)Indications: Coronary artery disease involving [place] coronary artery of [place] heart without angina pectoris,HFrEF (heart failure with reduced ejection fraction) ([facility]),HTN, goal below 140/90,Dyslipidemia, goal LDL below [...] multiple sites with positive rheumatoid factor ([facility]) Inject 1.14 mL under the skin every 14 days. 2.28 mL 11 03/05/2023 Active Omeprazole 40 MG Oral Capsule Delayed Release (PriLOSEC) Take 1 Capsule by mouth in the morning. 1 hour before the first meal of the day.. 90 Capsule 3 03/15/2023 Active Sildenafil Citrate 20 MG Oral Tablet (Revatio)Indications: Raynaud's disease with gangrene ([facility]) TAKE ONE TABLET BY MOUTH EVERY MORNING , 1 TABLET AT NOON AND 2 TABLETS BEFORE BEDTIME 90 Tablet 2 03/30/2023 Active sulfaSALAzine 500 MG Oral Tablet Delayed Release (Azulfidine Entab) Take 1 Tablet by mouth in the morning. 2 tablets twice daily. Active Jardiance 10 MG Oral Tablet (Empagliflozin)Indica tions:HFrEF (heart failure with reduced ejection fraction) ([facility]) TAKE 1 TABLET BY MOUTH EVERY MORNING 90 Tablet 3 05/08/2023 Active Furosemide 20 MG Oral Tablet (Lasix)Indications:HF rEF (heart failure with reduced ejection fraction) ([facility]) Take 2 Tablets by mouth in [...] (heart failure with reduced ejection fraction) (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 120 Tablet 10/11/2023 Active Alendronate Sodium 70 MG Oral Tablet (Fosamax) TAKE ONE TABLET BY MOUTH EVERY WEEK ON SUNDAY 12 Tablet 3 10/12/2023 Active Spiriva Respimat 2.5 MCG/ACT Inhalation Aerosol Solution (Tiotropium [place] Monohydrate) Inhale 2 Puffs by mouth in the morning. 4 g 11 10/26/2023 Active documented as of this encounter (statuses as of 10/30/2023) Active Problems Problem Noted Date Diagnosed Date Substance abuse 10/17/2023 Last Assessment & Plan: [facility] UDS + meth 08/12 Moderate [...] as of this encounter (statuses as of 10/30/2023) Resolved Problems Problem Noted Date Diagnosed Date [...] as of this encounter (statuses as of 10/30/2023) Immunizations Name Administration Dates Next Due HepA [...] encounter Miscellaneous Notes * Telephone Encounter - Jimmy Mitchell PA-C - 10/30/2023 1:59 PM EDT Called patient to f/u on CHF DTP along with psych and HH ref. No answer. Appears patient admitted at [facility] ER today (10/23) documented in this encounter Plan of Treatment Upcoming Encounters Date Type Department Care Team (Late st Contact Info) Description 11/06/2023 12:30 PM EDT [facility] Visit [facility] [address] [place] [address] Cindy Underwood RN [address] [address] 12/17/2023 11:00 AM EDT [facility] [place] [address] [address] Jimmy Mitchell PA-C [address] [address] 12/18/2023 9:00 AM EDT Office Visit Cardiology, [facility] [address] [place] [address] Elizabeth Johnson CRNP [address] [facility] [place] [address] 12/21/2023 1:40 PM EDT Office Visit [facility] [address] [place] [phone] Anahy Grayson MD [address] [place] [address] 01/17/2024 3:20 PM EDT Office Visit Neurology [facility] [address] [place] [address] Aparna Ruano PA-C [address] [place] [address] 02/20/2024 10:30 AM EDT Office Visit Vascular Surgery, [facility] [address] [place] [address] Tre Lange MD [address] [place] [address] Scheduled Procedures Name Priority Associated Diagnoses Date/Ti me COLONOSCOPY FLEXIBLE PROXIMAL DIAGNOSTIC Recall Colon cancer screening Health Maintenance Due Date Last Done Comments DISCUSS TOBACCO CESSATION (REFER TO SMARTSET #8061) 1965 COVID-19 Vaccine (#1) 02/09/1970 Alpha-1 Antitrypsin [...] D LEVEL ONCE IN A LIFETIME-USE SMARTSET# [id number] Completed 08/01/2023, 08/04/2021 GARDASIL-HPV IMMUNIZATION SERIES Aged Out No longer eligible based on patient's age to complete this topic MENINGOCOCCAL (MENACTRA/MENVEO) Aged Out No longer eligible based on patient's age to complete this topic documented as of this encounter Medical Devices Not on filedocumented as of this encounter Care Teams Assembly Inspector Relationship Specialty Start Date End Date Anahy Grayson MD [address] [place] [facility] [place] [address] PCP - General Internal Medicine 01/27/22 documented as of this encounter
--- OUTSIDE RECORDS SUMMARY | 2023-11-27 04:04 | External Medical Summary | Summary of Care ---
Author Name Unknown Organization [facility] Address [address] [place] [address] Phone [phone] Care Team Providers Care Assistant Spa Manager Name Role Phone Anahy Grayson MD Primary Care Provider [phone] Reason for Visit * Reason Onset Date Comments Information 10/31/2023 Encounter Details Date Type Department Care Team (Late st Contact Info) Description 10/31/2023 Telephone [facility] [address] [place] [address] Services, Scheduling [address] [place] [address] Information (///) Allergies No known active allergiesdocumented as of this encounter (statuses as of 10/31/2023) Medications Medication Sig Dispensed Refills Start Date [...] Oral Tablet (Crestor)Indications: Coronary artery disease involving caddo coronary artery of [...] Active Sarilumab 200 MG/1.14ML Subcutaneous Solution Auto-injector ([employer])Indications: Rheumatoid arthritis involving multiple sites with positive [...] Oral Tablet (Revatio)Indications: Raynaud's disease with gangrene ([facility]) TAKE ONE TABLET BY MOUTH EVERY MORNING , 1 TABLET AT NOON AND 2 TABLETS BEFORE BEDTIME 90 Tablet 2 03/30/2023 Active sulfaSALAzine 500 MG Oral Tablet Delayed Release (Azulfidine Entab) Take 1 Tablet by mouth in the morning. 2 tablets twice daily. 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 120 Tablet 10/11/2023 Active Alendronate Sodium 70 MG Oral Tablet (Fosamax) TAKE ONE TABLET BY MOUTH EVERY WEEK ON SUNDAY 12 Tablet 3 10/12/2023 Active Spiriva Respimat 2.5 MCG/ACT Inhalation Aerosol Solution (Tiotropium [place] Monohydrate) Inhale 2 Puffs by mouth in the morning. 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 Messaged Angelina Almanzar. Routing back to scheduling and Angelina to try an alternate agency. Cleo Mo RN [facility] Intake Triage Coordinator [phone] * Telephone Encounter - Angelina Almanzar OSA - 10/31/2023 12:48 PM EDT Request to find for PT OT and I called [facility] and they do not accept Annalise Fam coverg [facility] said to fax to her attn at [phone] and she'd have reviewed and cb Per cb from [facility], they do not accept Annalise Family insurance anymore documented in this encounter Plan of Treatment Upcoming Encounters Date Type Department Care Team (Late st Contact Info) Description 11/06/2023 12:30 PM EDT Home Visit [facility], [address] [place] [address] Cindy Underwood RN [address] [place] [address] 12/17/2023 11:00 AM EDT [facility], [facility] [address] [place] [address] Jimmy Mitchell PA-C [address] [place] [address] 12/18/2023 9:00 AM EDT Office Visit Cardiology, [facility] 132 [facility] [place] [address] Elizabeth Johnson CRNP 132 [facility] [place] [address] 12/21/2023 1:40 PM EDT Office Visit Family [place] [address] [place] [address] Anahy Grayson MD [address] [place] [address] 01/17/2024 3:20 PM EDT Office Visit Neurology [facility] 200 [facility] [place] [address] Aparna Ruano PA-C 200 [facility] [place] [address] 02/20/2024 10:30 AM EDT Office Visit Vascular Surgery, [facility] 132 [facility] [place] [address] Tre Lange MD [address] [facility] [place] [address] Scheduled Procedures Name Priority Associated Diagnoses [...] D LEVEL ONCE IN A LIFETIME-USE SMARTSET# [id number] Completed 08/01/2023, 08/04/2021 GARDASIL-HPV IMMUNIZATION SERIES Aged Out No longer eligible based on patient's age to complete this topic MENINGOCOCCAL (MENACTRA/MENVEO) Aged Out No longer eligible based on patient's age to complete this topic documented as of this encounter Medical Devices Not on filedocumented as of this encounter Care Teams Assistant Spa Manager Relationship Specialty Start Date End Date Anahy Grayson MD [address] [facility] [place] [address] PCP - General Internal Medicine 01/27/22 documented as of this encounter
--- OUTSIDE RECORDS SUMMARY | 2023-11-27 04:04 | External Medical Summary | Summary of Care ---
Author Name Unknown Organization [facility] Address [address] [place] [address] Phone [phone] Care Team Providers Care Retail Mortgage Banker Name Role Phone Anahy Grayson MD Primary Care Provider [phone] Reason for Visit * Reason Onset Date Comments Information 10/31/2023 Encounter Details Date Type Department Care Team (Late st Contact Info) Description 10/31/2023 Telephone [facility] [address] [place] [address] Services, Scheduling [address] [place] [address] Information (///) Allergies No known active allergiesdocumented [...] Oral Tablet (Crestor)Indications: Coronary artery disease involving nulato coronary artery of nulato heart without angina pectoris,HFrEF (heart failure with reduced ejection fraction) ([facility]),HTN, goal below 140/90,Dyslipidemia, goal [...] Active Sarilumab 200 MG/1.14ML Subcutaneous Solution Auto-injector ([employer])Indications: Rheumatoid arthritis involving multiple sites with positive [...] Tablet (Revatio)Indications: Raynaud's disease with gangrene ([facility]) [...] positive rheumatoid factor ([facility]) TAKE 1 TO 2 [...] :Ischemic foot ulcer due to atherosclerosis of nulato artery of limb (HCC),Rheumatoid arthritis involving multiple sites with positive rheumatoid factor (HCC) Take 1 Tablet by mouth every 6 hours as needed for Pain, Severe. 120 Tablet 10/11/2023 Active Alendronate Sodium 70 MG Oral Tablet (Fosamax) TAKE ONE TABLET BY MOUTH EVERY WEEK ON SUNDAY 12 Tablet 3 10/12/2023 Active Spiriva Respimat 2.5 MCG/ACT Inhalation Aerosol Solution (Tiotropium [place] Monohydrate) Inhale 2 Puffs by mouth in [...] 10/31/2023 1:08 PM EDT Return PC from [facility] advising that they cannot accept the pt. Messaged Angelina Almanzar. Routing back to scheduling and Angelina to try an alternate agency. Cleo Mo RN [facility] Intake Triage Coordinator [phone] * Telephone Encounter - Angelina Almanzar OSA - 10/31/2023 12:48 PM EDT Request to find for PT OT and I called [facility] and they do not accept Annalise Fam coverg [facility] who said to fax to her attn at [phone] and she'd have reviewed and cb documented in this encounter Plan of Treatment Upcoming Encounters Date Type Department Care Team (Late st Contact Info) Description 11/06/2023 12:30 PM EDT [facility] [address] [place] [address] Cindy Underwood RN [address] [place] [address] 12/17/2023 11:00 AM EDT [facility] [place] [address] Jimmy Mitchell PA-C [facility] [place] [address] 12/18/2023 9:00 AM EDT Office Visit Cardiology, [facility] 132 [facility] [place] [address] Elizabeth Johnson CRNP 132 [facility] [place] [address] 12/21/2023 1:40 PM EDT Office Visit Family [facility] [address] [place] [address] Anahy Grayson MD [address] [place] [address] 01/17/2024 3:20 PM EDT Office Visit Neurology [facility] 200 [facility] [place] [address] Aparna Ruano PA-C 200 [facility] [place] [address] 02/20/2024 10:30 AM EDT Office Visit Vascular Surgery, [facility] 132 [facility] [place] [address] Tre Lange MD [address] [place] [address] Scheduled Procedures Name Priority Associated [...] D LEVEL ONCE IN A LIFETIME-USE SMARTSET# [id number] Completed 08/01/2023, 08/04/2021 GARDASIL-HPV IMMUNIZATION SERIES Aged Out No longer eligible based on patient's age to complete this topic MENINGOCOCCAL (MENACTRA/MENVEO) Aged Out No longer eligible based on patient's age to complete this topic documented as of this encounter Medical Devices Not on filedocumented as of this encounter Care Teams Retail Mortgage Banker Relationship Specialty Start Date End Date Aanhy Grayson MD [address] [place] [address] PCP - General Internal Medicine 01/27/22 documented as of this encounter
--- OUTSIDE RECORDS SUMMARY | 2023-11-27 04:04 | External Medical Summary | Summary of Care ---
Author Name Unknown Organization [facility] Address [address] [place] [address] Phone [phone] Care Team Providers Care Ground Crewman Aircraft Support Name Role Phone Anahy Grayson MD Primary Care Provider [phone] Reason for Visit * Reason Onset Date Comments Information 10/31/2023 Encounter Details Date Type Department Care Team (Late st Contact Info) Description 10/31/2023 Telephone [facility] [address] [place] [address] Services, Scheduling [address] [place] [address] Information (///) Allergies No known active allergiesdocumented [...] Oral Tablet (Crestor)Indications: Coronary artery disease involving cachil dehe coronary artery of cachil dehe heart without angina pectoris,HFrEF (heart failure with [...] Active Sarilumab 200 MG/1.14ML Subcutaneous Solution Auto-injector ([employer])Indications: Rheumatoid arthritis involving multiple sites with positive [...] factor ([facility]) TAKE 1 TO 2 TABLETS [...] :Ischemic foot ulcer due to atherosclerosis of cachil dehe artery of limb (HCC),Rheumatoid arthritis involving multiple sites with positive rheumatoid factor (HCC) Take 1 Tablet by mouth every 6 hours as needed for Pain, Severe. 120 Tablet 10/11/2023 Active Alendronate Sodium 70 MG Oral Tablet (Fosamax) TAKE ONE TABLET BY MOUTH EVERY WEEK ON SUNDAY 12 Tablet 3 10/12/2023 Active Spiriva Respimat 2.5 MCG/ACT Inhalation Aerosol Solution (Tiotropium [place] Monohydrate) Inhale 2 Puffs by mouth in the morning. 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 Messaged Angelina Almanzar. Routing back to scheduling and Angelina to try an alternate agency. Cleo Mo RN [facility] Intake Triage Coordinator [phone] * Telephone Encounter - Angelina Almanzar OSA - 10/31/2023 12:48 PM EDT Request to find for PT OT and I called [facility] and they do not accept Annalise Fam coverg soI tried [facility] and talked to Reanna who said to fax to her attn at [phone] and she'd have reviewed and cb Per cb from [facility], they do not accept Annalise Family insurance anymore Also called Nirm[facility] Rider, Agustina, Mina, [facility], and none of them accepts Annalise Family coverage and called [facility] who does not offer pt ot which is what I need . [facility] so shared with care team to see if there were any they are aware of that they can help with documented in this encounter Plan of Treatment Upcoming Encounters Date Type Department Care Team (Late st Contact Info) Description 11/06/2023 12:30 PM EDT [facility], [facility] [address] [place] [address] Cindy Underwood, RN [address] [place] [address] 12/17/2023 11:00 AM EDT [facility] Visit [facility], [facility] [address] [place] [address] Jimmy Mitchell PA-C [address] [place] [address] 12/18/2023 9:00 AM EDT Office Visit Cardiology, [facility] [address] [place] [address] Elizabeth Johnson CRNP [address] [place] [address] 12/21/2023 1:40 PM EDT Office Visit [place] [address] [place] [phone] Anahy Grayson MD [address] [place] [address] 01/17/2024 3:20 PM EDT Office Visit Neurology [facility] [address] [place] [address] Aparna Ruano PA-C 200 [facility] [place] [address] 02/20/2024 10:30 AM EDT Office Visit Vascular Surgery, [facility] [address] [place] [address] Tre Lange MD [address] [place] [address] Scheduled Procedures Name Priority Associated Diagnoses Date/Ti me COLONOSCOPY FLEXIBLE PROXIMAL DIAGNOSTIC Recall Colon cancer screening Health Maintenance Due Date Last Done Comments DISCUSS TOBACCO CESSATION (REFER TO SMARTSET #4111) 1965 COVID-19 Vaccine (#1) 02/09/1969 Alpha-1 Antitrypsin [...] D LEVEL ONCE IN A LIFETIME-USE SMARTSET# [id number] Completed 08/01/2023, 08/04/2021 GARDASIL-HPV IMMUNIZATION SERIES Aged Out No longer eligible based on patient's age to complete this topic MENINGOCOCCAL (MENACTRA/MENVEO) Aged Out No longer eligible based on patient's age to complete this topic documented as of this encounter Medical Devices Not on filedocumented as of this encounter Care Teams Ground Crewman Aircraft Support Relationship Specialty Start Date End Date Anahy Grayson MD [address] [place] [address] PCP - General Internal Medicine 01/27/22 documented as of this encounter
--- OUTSIDE RECORDS SUMMARY | 2023-11-27 04:04 | External Medical Summary | Summary of Care ---
Author Name Unknown Organization [facility] Address [address] [place] [address] Phone [phone] Care Team Providers Care Shaker Tender Name Role Phone Anahy Grayson MD Primary Care Provider Reason for Visit * Reason Onset Date Comments Information 10/24/2023 Encounter Details Date Type Department Care Team (Late st Contact Info) Description 10/24/2023 Telephone [facility] [address] [place] [address] Services, Scheduling [address] [place] [address] Information (///) Allergies No known active allergiesdocumented as of this encounter (statuses as of 10/25/2023) Medications Medication Sig Dispensed Refills Start Date End Date Status Aspirin 81 MG Oral Tablet Delayed Release Take 1 Tablet by mouth in the morning. Active Spiriva Respimat 2.5 MCG/ACT Inhalation Aerosol Solution (Tiotropium [place] Monohydrate) Inhale by mouth 2 Puffs in [...] Oral Tablet (Crestor)Indications: Coronary artery disease involving craig coronary artery of craig heart without angina pectoris,HFrEF (heart failure with [...] Active Sarilumab 200 MG/1.14ML Subcutaneous Solution Auto-injector ([employer])Indications: Rheumatoid arthritis involving multiple sites with positive [...] positive rheumatoid factor ([facility]) TAKE 1 TO 2 TABLETS BY MOUTH [...] MG Oral Tablet (Apixaban)Indications :Persistent atrial fibrillation ([facility]) TAKE 1 TABLET BY MOUTH TWICE DAILY 180 Tablet 10/08/2023 Active oxyCODONE-Acetaminoph en 10-325 MG Oral Tablet (Percocet)Indications :Ischemic foot ulcer due to atherosclerosis of craig artery of limb ([facility]),Rheumatoid arthritis involving multiple sites with positive rheumatoid factor ([facility]) Take 1 Tablet by mouth every 6 hours as needed for Pain, Severe. 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 They cover that area. Thanks! * Telephone Encounter - Angelina Almanzar OSA - 10/24/2023 10:14 AM EDT F/U on and [facility] already declined, so I then called [facility] Enriquez , [facility] Ber[facility], and [facility] and they all denied for non par with Family coverage Then called [facility] and they will run all info once they get our referral faxed to [phone] so I faxed to them today and they cb and declined not accepting the insurance either Called [facility] and they dont cover area of residence either. Forwarded to care team to see alexandriaking was aware of others I hadnt tried that accept [employer] Family ins and are within their area of coverage documented in this encounter Plan of Treatment Upcoming Encounters Date Type Department Care Team (Late st Contact Info) Description 10/26/2023 11:00 AM EDT Scheduled Telephone [facility], [address] [place] [address] Coordinator, [facility] [address] [place] [address] 11/06/2023 12:30 PM EDT [facility], [facility] [address] [place] [address] Cindy Underwood, RN [address] [place] [address] 12/17/2023 11:00 AM EDT [facility], [facility] [address] [place] [address] Jimmy Mitchell PA-C [address] [place] [address] 12/18/2023 9:00 AM EDT Office Visit Cardiology, [facility] [address] [place] [address] Elizabeth Johnson CRNP [address] [place] [address] 12/21/2023 1:40 PM EDT Office Visit [place] [address] [place] [address] Anahy Grayson MD [address] [place] [address] 01/17/2024 3:20 PM EDT Office Visit Neurology [facility] [address] [place] [address] Aparna Ruano PA-C 200 [facility] [place] [address] 02/20/2024 10:30 AM EDT Office Visit Vascular Surgery, [facility] [address] [place] [address] Tre Lange MD [address] [facility] [place] [address] Scheduled Procedures Name Priority Associated Diagnoses Date/Ti me COLONOSCOPY FLEXIBLE PROXIMAL DIAGNOSTIC Recall Colon cancer screening Health Maintenance Due Date Last Done Comments DISCUSS TOBACCO CESSATION (REFER TO SMARTSET #4354) 1965 COVID-19 Vaccine (#1) 02/09/1969 Alpha-1 Antitrypsin [...] D LEVEL ONCE IN A LIFETIME-USE SMARTSET# [id number] Completed 08/01/2023, 08/04/2021 GARDASIL-HPV IMMUNIZATION SERIES Aged Out No longer eligible based on patient's age to complete this topic MENINGOCOCCAL (MENACTRA/MENVEO) Aged Out No longer eligible based on patient's age to complete this topic documented as of this encounter Medical Devices Not on filedocumented as of this encounter Care Teams Shaker Tender Relationship Specialty Start Date End Date Anahy Grayson MD [address] [place] [address] PCP - General Internal Medicine 01/27/22 documented as of this encounter
--- OUTSIDE RECORDS SUMMARY | 2023-11-27 04:04 | External Medical Summary | Summary of Care ---
Author Name Unknown Organization [facility] Address [address] [place] [address] Phone [phone] Care Team Providers Care Property Field Inspector Name Role Phone Anahy Grayson MD Primary Care Provider [phone] Reason for Visit * Reason Onset Date Comments Information 10/31/2023 Encounter Details Date Type Department Care Team (Late st Contact Info) Description 10/31/2023 Telephone [facility] [place] [address] [place] [address] Services, Scheduling [address] [place] [address] Information (///) Allergies No known active allergiesdocumented [...] Oral Tablet (Crestor)Indications: Coronary artery disease involving [place] coronary artery of [place] heart without angina pectoris,HFrEF (heart failure with reduced ejection fraction) ([facility]),HTN, goal below 140/90,Dyslipidemia, goal LDL below [...] Active Sarilumab 200 MG/1.14ML Subcutaneous Solution Auto-injector (Lucibel)Indications: Rheumatoid arthritis involving multiple sites with positive [...] Oral Tablet (Revatio)Indications: Raynaud's disease with gangrene ([facility]) TAKE ONE TABLET BY MOUTH EVERY MORNING , 1 TABLET AT NOON AND 2 TABLETS BEFORE BEDTIME 90 Tablet 2 03/30/2023 Active sulfaSALAzine 500 MG Oral Tablet Delayed Release (Azulfidine Entab) Take 1 Tablet by mouth in the morning. 2 tablets twice daily. Active Jardiance 10 MG Oral Tablet (Empagliflozin)Indica tions:HFrEF (heart failure with reduced ejection fraction) ([facility]) TAKE 1 TABLET BY MOUTH EVERY MORNING 90 Tablet 3 05/08/2023 Active Furosemide 20 MG Oral Tablet (Lasix)Indications:HF rEF (heart failure with reduced ejection fraction) ([facility]) Take 2 Tablets by mouth in the morning. 180 Tablet 3 06/06/2023 Active Additional Information Patient taking differently:40 mg Oral Daily(AM),Pt takes 2 tabs every morning and additional 1 in the afternoon as needed for edema, Reported on 09/23/2023 predniSONE 5 MG Oral Tablet (Deltasone)Indication s:Rheumatoid arthritis involving multiple sites with positive rheumatoid factor ([facility]) TAKE 1 TO 2 TABLETS BY [...] :Ischemic foot ulcer due to atherosclerosis of northern [...] Respimat 2.5 MCG/ACT Inhalation Aerosol Solution (Tiotropium [place] Monohydrate) Inhale 2 Puffs by mouth in the morning. 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 Scoliosis 06/23/2022 SVT [...] find for PT OT and I called [facility] and they do not accept Annalise Fam coverg soI tried [facility] and talked to Reanna who said to fax to her attn at [phone] and she'd have reviewed and cb documented in this encounter Plan of Treatment Upcoming Encounters Date Type Department Care Team (Late st Contact Info) Description 11/06/2023 12:30 PM EDT Home Visit [facility] [address] [address] Cindy Underwood RN [address] [place] [address] 12/17/2023 11:00 AM EDT Home Visit [facility] [address] [address] Jimmy Mitchell PA-C [address] [place] [address] 12/18/2023 9:00 AM EDT Office Visit Cardiology, [facility] [address] [facility] [place] [address] Elizabeth Johnson CRNP 132 [facility] [place] [address] 12/21/2023 1:40 PM EDT Office Visit [facility] [address] [place] [phone] Anahy Grayson MD [address] [place] [address] 01/17/2024 3:20 PM EDT Office Visit Neurology [facility] [address] [facility] [place] [address] Aparna Ruano PA-C [address] [facility] [place] [address] 02/20/2024 10:30 AM EDT Office Visit Vascular Surgery, [facility] 132 [place] [address] Tre Lange MD [address] [place] [address] Scheduled Procedures Name Priority Associated [...] D LEVEL ONCE IN A LIFETIME-USE SMARTSET# 15935 Completed 08/01/2023, 08/04/2021 GARDASIL-HPV IMMUNIZATION SERIES Aged Out No longer eligible based on patient's age to complete this topic MENINGOCOCCAL (MENACTRA/MENVEO) Aged Out No longer eligible based on patient's age to complete this topic documented as of this encounter Medical Devices Not on filedocumented as of this encounter Care Teams Property Field Inspector Relationship Specialty Start Date End Date Anahy Grayson [facility] [address] [facility] [address] PCP - General Internal Medicine 01/27/22 documented as of this encounter
--- OUTSIDE RECORDS SUMMARY | 2023-11-27 04:04 | External Medical Summary | Summary of Care ---
Author Name Unknown Organization [facility] Address [address] [facility] [place] [address] Phone [phone] Care Team Providers Care Pressure Dispatcher Name Role Phone Anahy Grayson MD Primary Care Provider [phone] Reason for Visit * Reason Onset Date Comments Encounter Created in Error 10/01/2023 Encounter Details Date Type Department Care Team (Late st Contact Info) Description 10/01/2023 Telephone [facility], [facility] [address] [place] [address] Cindy Underwood, RN [address] [place] [address] Encounter Created in Error Allergies No known [...] Oral Tablet (Crestor)Indication s:Coronary artery disease involving [place] coronary artery of [place] heart without angina pectoris,HFrEF (heart failure with reduced ejection fraction) ([facility]),HTN, goal below 140/90,Dyslipidemia , goal LDL [...] (Revatio)Indication s:Raynaud's disease with gangrene ([facility]) [...] 08/05/2023 Active Spironolactone 25 MG Oral Tablet (Aldactone)Indicati [...] 09/04/2023 Active Entresto 24-26 MG Oral Tablet (sacubitril-valsart [...] 10/17/2023 Last Assessment & Plan: [facility] UDS + meth 08/12 Moderate episode of recurrent major depressive d isorder 08/05/2023 Last Assessment & Plan: Continue lexapro Will place behavioral health ref Psychiatry ref, preferably telemed Small vessel disease 08/01/2023 Food insecurity 01/08/2023 Overview: Per [facility] Protocol Senile osteoporosis 01/04/2023 Lung [...] PM EDT Home Visit [facility], [facility] [address] [place] [address] Cindy Underwood, RN [address] [place] [address] 12/17/2023 11:00 AM EDT Home Visit [facility], [facility] [address] [address] Jimmy Mitchell PA-C [address] [place] [address] 12/18/2023 9:00 AM EDT Office Visit Cardiology, [facility] [address] [place] [address] Elizabeth Johnson CRNP [address] [place] [address] 12/21/2023 1:40 PM EDT Office Visit [place] [address] [place] [phone] Anahy Grayson MD [address] [place] [address] 01/17/2024 3:20 PM EDT Office Visit Neurology [facility] [address] [place] [address] Aparna Ruano PA-C 200 [facility] [place] [address] 02/20/2024 10:30 AM EDT Office Visit Vascular Surgery, [facility] [address] [place] [address] Tre Lange MD [address] [place] [address] Scheduled Procedures Name Priority Associated Diagnoses Date/Ti me COLONOSCOPY FLEXIBLE PROXIMAL DIAGNOSTIC Recall Colon cancer screening Health Maintenance Due Date Last Done Comments DISCUSS TOBACCO CESSATION (REFER TO SMARTSET #0215) 1965 COVID-19 Vaccine (#1) 02/09/1969 Alpha-1 Antitrypsin [...] D LEVEL ONCE IN A LIFETIME-USE SMARTSET# 19837 Completed 08/01/2023, 08/04/2021 GARDASIL-HPV IMMUNIZATION SERIES Aged Out No longer eligible based on patient's age to complete this topic MENINGOCOCCAL (MENACTRA/MENVEO) Aged Out No longer eligible based on patient's age to complete this topic documented as of this encounter Medical Devices Not on filedocumented as of this encounter Care Teams Pressure Dispatcher Relationship Specialty Start Date End Date Anahy Grayson MD [address] [place] [address] PCP - General Internal Medicine 01/27/22 documented as of this encounter
--- OUTSIDE RECORDS SUMMARY | 2023-11-27 04:05 | External Medical Summary | Summary of Care ---
Author Name Unknown Organization [facility] Address [address] [place] [address] Phone [phone] Care Team Providers Care Pillowcase Folder Name Role Phone Anahy Grayson MD Primary Care Provider [phone] Reason for Visit * Reason Onset Date Comments Information 10/24/2023 Encounter Details Date Type Department Care Team (Late st Contact Info) Description 10/24/2023 Telephone [facility] [place] [address] [place] [address] Services, Scheduling [address] [place] [address] Information (///) Allergies No known active allergiesdocumented as of this encounter (statuses as of 10/24/2023) Medications Medication Sig Dispensed Refills Start Date End Date Status Aspirin 81 MG Oral Tablet Delayed Release Take 1 Tablet by mouth in the morning. Active Spiriva Respimat 2.5 MCG/ACT Inhalation Aerosol Solution (Tiotropium [place] Monohydrate) Inhale by mouth 2 Puffs in [...] Oral Tablet (Crestor)Indications: Coronary artery disease involving [place] coronary artery of [place] heart without angina pectoris,HFrEF (heart failure with [...] Active Sarilumab 200 MG/1.14ML Subcutaneous Solution Auto-injector (OmnidrivezaThe Float Yard)Indications: Rheumatoid arthritis involving multiple sites with positive [...] MG Oral Tablet (Apixaban)Indications :Persistent atrial fibrillation ([facility]) TAKE 1 TABLET BY MOUTH TWICE DAILY 180 Tablet 10/08/2023 Active oxyCODONE-Acetaminoph en 10-325 MG Oral Tablet (Percocet)Indications :Ischemic foot ulcer due to atherosclerosis of [place] artery of limb ([facility] [...] Substance abuse 10/17/2023 Last Assessment & Plan: [facility] UDS + meth 08/12 Moderate episode [...] Miscellaneous Notes * Telephone Encounter - Angelina Almaznar OSA - 10/24/2023 10:14 AM EDT F/U on and [facility] already declined, so I then called [facility] Enriquez , [facility], and [facility] and they all denied for non par with Family coverage Then called [facility] and they will run all info once they get our referral faxed to [phone] so I faxed to them today and they cb and declined not accepting the insurance either documented in this encounter Plan of Treatment Upcoming Encounters Date Type Department Care Team (Late st Contact Info) Description 10/26/2023 11:00 AM EDT Scheduled Telephone [facility] [place], [facility] [address] [address] Coordinator, [facility] [address] [address] 11/06/2023 12:30 PM EDT [facility] Visit [facility] [address] [address] Cindy Underwood RN [address] [place] [address] 12/17/2023 11:00 AM EDT [facility], [facility] 132 [facility] [place] [address] Jimmy Mitchell PA-C [facility] [place] [address] 12/18/2023 9:00 AM EDT Office Visit Cardiology, [facility] [address] [facility] [place] [address] Elizabeth Johnson CRNP [address] [facility] [place] [address] 12/21/2023 1:40 PM EDT Office Visit Family [facility] [address] [place] [address] Anahy Grayson MD [address] [place] [address] 01/17/2024 3:20 PM EDT Office Visit Neurology [facility] [address] [facility] [address] Aparna Ruano PA-C [address] [facility] [address] 02/20/2024 10:30 AM EDT Office Visit Vascular Surgery, [facility] [address] [facility] [place] [address] Tre Lange MD [address] [place] [address] Scheduled Procedures Name Priority Associated Diagnoses Date/Ti me COLONOSCOPY FLEXIBLE PROXIMAL DIAGNOSTIC Recall Colon cancer screening Health Maintenance Due Date Last Done Comments DISCUSS TOBACCO CESSATION (REFER TO SMARTSET #3174) 1965 COVID-19 Vaccine (#1) 02/09/1969 Alpha-1 Antitrypsin [...] D LEVEL ONCE IN A LIFETIME-USE SMARTSET# 31928 Completed 08/01/2023, 08/04/2021 GARDASIL-HPV IMMUNIZATION SERIES Aged Out No longer eligible based on patient's age to complete this topic MENINGOCOCCAL (MENACTRA/MENVEO) Aged Out No longer eligible based on patient's age to complete this topic documented as of this encounter Medical Devices Not on filedocumented as of this encounter Care Teams Pillowcase Folder Relationship Specialty Start Date End Date Anahy Grayson MD [address] [place], [place] [address] PCP - General Internal Medicine 01/27/22 documented as of this encounter
--- OUTSIDE RECORDS SUMMARY | 2023-11-27 04:05 | External Medical Summary | Summary of Care ---
Author Name Unknown Organization [facility] Address [address] [place] [address] Phone [phone] Care Team Providers Care Paper Maker Name Role Phone Anahy Grayson MD Primary Care Provider [phone] Reason for Visit * Reason Onset Date Comments Appointment 10/24/2023 Encounter Details Date Type Department Care Team (Late st Contact Info) Description 10/24/2023 Telephone [facility], [facility] [address] [facility] [address] [phone] Ludy Christine, Community Health Horticulture/Floriculture Teacher [address] [place] [address] Appointment Allergies No known active allergiesdocumented as of this encounter (statuses as of 10/24/2023) Medications Medication Sig Dispensed Refills Start Date End Date Status Aspirin 81 MG Oral Tablet Delayed Release Take 1 Tablet by mouth in the morning. Active Spiriva Respimat 2.5 MCG/ACT Inhalation Aerosol Solution (Tiotropium [place] Monohydrate) Inhale by mouth 2 Puffs in [...] Oral Tablet (Crestor)Indications: Coronary artery disease involving [place] coronary artery of [place] heart without angina pectoris,HFrEF (heart failure [...] Active Sarilumab 200 MG/1.14ML Subcutaneous Solution Auto-injector (Just Soles)Indications: Rheumatoid arthritis involving multiple sites with positive [...] Oral Tablet (Revatio)Indications: Raynaud's disease with gangrene ([facility]) [...] tions:HFrEF (heart failure with reduced ejection fraction) ([facility]) TAKE 1 TABLET BY MOUTH EVERY MORNING 90 Tablet 3 05/08/2023 Active Furosemide 20 MG Oral Tablet (Lasix)Indications:HF rEF (heart failure with reduced ejection fraction) ([facility] [...] PVCs,HFrEF (heart failure with reduced ejection fraction) ([facility]),PAF (paroxysmal atrial fibrillation) ([facility]) TAKE 1 TABLET BY MOUTH TWICE DAILY EVERY MORNING AND BEFORE BEDTIME 180 Tablet 3 09/17/2023 Active Eliquis 5 MG Oral Tablet (Apixaban)Indications :Persistent atrial fibrillation ([facility]) TAKE 1 TABLET BY MOUTH TWICE DAILY 180 Tablet 10/08/2023 Active oxyCODONE-Acetaminoph en 10-325 MG Oral Tablet (Percocet)Indications :Ischemic foot ulcer due to atherosclerosis of [place] artery of limb ([facility]),Rheumatoid arthritis involving multiple sites with positive rheumatoid factor ([facility]) Take 1 Tablet by mouth [...] Telephone Encounter - Ludy Christine Community Health Horticulture/Floriculture Teacher - 10/24/2023 3:23 PM EDT Incoming call from [email or web address] . Can not accept Pt as they do not accept [facility]. Teams message sent to Shannon Son documented in this encounter Plan of Treatment Upcoming Encounters Date Type Department Care Team (Late st Contact Info) Description 10/26/2023 11:00 AM EDT Scheduled Telephone [facility] [place], [facility] [address] [address] Coordinator, [facility] [address] [address] 11/06/2023 12:30 PM EDT [facility] Visit [facility] [place], [facility] [address] [address] Cindy Underwood, RN [address] [place] [address] 12/17/2023 11:00 AM EDT Home Visit [facility] [place], [facility] [address] [place] [address] Jimmy Mitchell PA-C [address] [place] [address] 12/18/2023 9:00 AM EDT Office Visit Cardiology, [facility] 132 [facility] [place] [address] Elizabeth Johnson CRNP 132 [facility] [place] [address] 12/21/2023 1:40 PM EDT Office Visit Family [facility] [address] [place] [phone] Anahy Grayson MD [address] [place] [address] 01/17/2024 3:20 PM EDT Office Visit Neurology [facility] 200 [facility] [place] [address] Aparna Ruano PA-C 200 [facility] [place] [address] 02/20/2024 10:30 AM EDT Office Visit Vascular Surgery, [facility] [address] [facility] [place] [address] Tre Lange MD [address], [place] [address] Scheduled Procedures Name Priority Associated Diagnoses Date/Ti me COLONOSCOPY FLEXIBLE PROXIMAL DIAGNOSTIC Recall Colon cancer screening Health Maintenance Due Date Last Done Comments DISCUSS TOBACCO CESSATION (REFER TO SMARTSET #9337) 1965 COVID-19 Vaccine (#1) 02/09/1969 Alpha-1 Antitrypsin [...] D LEVEL ONCE IN A LIFETIME-USE SMARTSET# 14063 Completed 08/01/2023, 08/04/2021 GARDASIL-HPV IMMUNIZATION SERIES Aged Out No longer eligible based on patient's age to complete this topic MENINGOCOCCAL (MENACTRA/MENVEO) Aged Out No longer eligible based on patient's age to complete this topic documented as of this encounter Medical Devices Not on filedocumented as of this encounter Care Teams Paper Maker Relationship Specialty Start Date End Date Anahy Grayson MD [address] [facility] [place] [address] PCP - General Internal Medicine 01/27/22 documented as of this encounter
--- OUTSIDE RECORDS SUMMARY | 2023-11-27 04:05 | External Medical Summary | Summary of Care ---
Author Name Unknown Organization [facility] Address [address] [place] [address] Phone [phone] Care Team Providers Care Veterans Contact Representative Name Role Phone Anahy Grayson MD Primary Care Provider [phone] Reason for Visit * Reason Onset Date Comments Information 10/24/2023 Encounter Details Date Type Department Care Team (Late st Contact Info) Description 10/24/2023 Telephone [facility] [place] [address] [place] [address] Services, Scheduling [address] [place] [address] Information (///) Allergies No known active allergiesdocumented as of this encounter (statuses as of 10/24/2023) Medications Medication Sig Dispensed Refills Start Date End Date Status Aspirin 81 MG Oral Tablet Delayed Release Take 1 Tablet by mouth in the morning. Active Spiriva Respimat 2.5 MCG/ACT Inhalation Aerosol Solution (Tiotropium [place] Monohydrate) Inhale by mouth 2 Puffs in [...] ejection fraction) ([facility]),HTN, goal below 140/90,Dyslipidemia, goal LDL [...] Active Sarilumab 200 MG/1.14ML Subcutaneous Solution Auto-injector (NumascalezaNext Generation Dance)Indications: Rheumatoid arthritis involving multiple sites with positive rheumatoid factor ([facility]) Inject 1.14 mL under the skin every 14 days. 2.28 mL 11 03/05/2023 Active Omeprazole 40 MG Oral Capsule Delayed Release (PriLOSEC) Take 1 Capsule by mouth in the morning. 1 hour before the first meal of the day.. 90 Capsule 3 03/15/2023 Active Sildenafil Citrate 20 MG Oral Tablet (Revatio)Indications: Raynaud's disease with gangrene ([facility]) TAKE ONE TABLET BY MOUTH EVERY MORNING , 1 TABLET AT NOON AND 2 TABLETS BEFORE BEDTIME 90 Tablet 2 03/30/2023 Active sulfaSALAzine 500 MG Oral Tablet Delayed Release (Azulfidine Entab) Take 1 Tablet by mouth in the morning. 2 tablets twice daily. Active Jardiance 10 MG Oral Tablet (Empagliflozin)Indica tions:HFrEF (heart failure with reduced ejection fraction) ([facility]) TAKE 1 TABLET BY MOUTH EVERY MORNING 90 Tablet 3 05/08/2023 Active Furosemide 20 MG Oral Tablet (Lasix)Indications:HF rEF (heart failure with reduced ejection fraction) ([facility]) Take 2 Tablets by mouth in the morning. 180 Tablet 3 06/06/2023 Active Additional Information Patient taking differently:40 mg Oral Daily(AM),Pt takes 2 tabs every morning and additional 1 in the afternoon as needed for edema, Reported on 09/23/2023 predniSONE 5 MG Oral Tablet (Deltasone)Indication s:Rheumatoid arthritis involving multiple sites with positive rheumatoid factor ([facility]) TAKE 1 TO 2 TABLETS [...] PVCs,HFrEF (heart failure with reduced ejection fraction) ([facility]),PAF (paroxysmal atrial fibrillation) ([facility]) TAKE 1 TABLET BY MOUTH TWICE DAILY EVERY MORNING AND BEFORE BEDTIME 180 Tablet 3 09/17/2023 Active Eliquis 5 MG Oral Tablet (Apixaban)Indications :Persistent atrial fibrillation ([facility]) TAKE 1 TABLET BY MOUTH TWICE DAILY 180 Tablet 10/08/2023 Active oxyCODONE-Acetaminoph en 10-325 MG Oral Tablet (Percocet)Indications :Ischemic foot ulcer due to atherosclerosis of blackfeet artery of limb ([facility]),Rheumatoid arthritis involving multiple sites with positive rheumatoid factor ([facility]) Take 1 Tablet by mouth [...] Assessment & Plan: [facility] U[facility] + meth 08/12 Moderate episode of [...] non par with Family coverage Then called [facility] and they will run all info once they get our referral faxed to [phone] so I faxed to them today and they cb and declined not accepting the insurance either Called [facility] and they dont cover area of residence either. Forwarded to care team to see stan was aware of others I hadnt tried that accept [employer] Family ins and are within their area of coverage documented in this encounter Plan of Treatment Upcoming Encounters Date Type Department Care Team (Late st Contact Info) Description 10/26/2023 11:00 AM EDT Scheduled Telephone [facility] [place], [facility] [address] [address] Coordinator, Devonte Sorensen [facility] [address] [address] 11/06/2023 12:30 PM EDT Home Visit [facility] [place], [facility] [address] [address] Cindy Underwood RN [address] [place] [address] 12/17/2023 11:00 AM EDT [facility] Visit [facility] [address] [place] [address] Jimmy Mitchell PA-C [address] [place] [address] 12/18/2023 9:00 AM EDT Office Visit Cardiology, [facility] [address] [facility] [address] [place] [address] Elizabeth Johnson CRNP [address] [place] [address] 12/21/2023 1:40 PM EDT Office Visit Family [place] [address] [place] [id number] Anahy Grayson MD [address] [place] [address] 01/17/2024 3:20 PM EDT Office Visit Neurology [facility] [address] [facility] [place] [address] Aparna Ruano PA-C [address] [facility] [place] [address] 02/20/2024 10:30 AM EDT Office Visit Vascular Surgery, [facility] [address] [facility] [address] [place] [address] Tre Lange MD [address] [place] [address] Scheduled Procedures Name Priority Associated [...] D LEVEL ONCE IN A LIFETIME-USE SMARTSET# [id number] Completed 08/01/2023, 08/04/2021 GARDASIL-HPV IMMUNIZATION SERIES Aged Out No longer eligible based on patient's age to complete this topic MENINGOCOCCAL (MENACTRA/MENVEO) Aged Out No longer eligible based on patient's age to complete this topic documented as of this encounter Medical Devices Not on filedocumented as of this encounter Care Teams Veterans Contact Representative Relationship Specialty Start Date End Date Anahy Grayson MD [address] [place] [address] PCP - General Internal Medicine 01/27/22 documented as of this encounter
[2023-11-27] MEDS: PANTOprazole 40 MG TAB PO SCH (05:31)
[2023-11-27 06:55] LABS: Hematocrit (blood only) 34.8 % (42.0-52.0); Hemoglobin 10.5 g/dl (14.0-18.0); Mean Corpuscular Hemoglobin 23.9 pg (25.0-34.0); Mean Corpuscular Hgb Conc 30.2 g/dL (32.0-36.0); Mean Corpuscular Volume 79.3 fL (80.0-100.0); Mean Platelet Volume 10.2 fL (9.4-12.4); Platelet Count 346 K/uL (130-400); RDW Coefficient of Variation 21.5 % (11.5-14.5); RDW Standard Deviation 61.1 fL (36.4-46.3); Red Blood Count 4.39 M/uL (4.70-6.10); White Blood Count 5.92 K/ul (4.8-10.8)
[2023-11-27 06:58] LABS: Albumin Level 2.8 gm/dl (3.4-5.0); Bilirubin,Total 0.3 mg/dl (0.2-1.0); Calcium 7.8 mg/dl (8.6-10.3); Magnesium 1.8 mg/dl (1.7-2.4); Potassium 4.1 mmol/L (3.5-5.1)
[2023-11-27 07:04] LABS: Albumin Globulin Ratio 0.8 (0.9-2); BUN Creatinine Ratio 18.4 (10-20); Creatinine Clr Calc Pharmacy 120.3 ml/min; Est GFR (African American) 115.7 ml/min; Est GFR (Non-African American) 99.9 ml/min; Globulin 3.5 gm/dl (2.5-4.0); Total Protein 6.3 gm/dl (6.0-8.3)
[2023-11-27 07:09] LABS: Troponin I High Sensitivity 63.3 pg/ml (0-20)
[2023-11-27 07:10] LABS: Basophils # (auto) 0.02 K/uL (0.00-0.20); Basophils % (auto) 0.3 %; Eosinophils # (auto) 0.52 K/uL (0.00-0.50); Eosinophils % (auto) 8.8 %; Immature Granulocytes # (auto) 0.04 K/uL (0.01-0.20); Immature Granulocytes % (auto) 0.7 %; Lymphocytes # (auto) 0.89 K/uL (1.20-3.40); Lymphocytes % (auto) 15.1 %; Monocytes # (auto) 0.39 K/uL (0.11-0.59); Monocytes % (auto) 6.6 %; Neutrophils # (auto) 4.04 K/uL (1.40-6.50); Neutrophils % (auto) 68.5 %
[2023-11-27 07:44] LABS: Anisocytosis Present; Polychromasia 1+
--- NOTE | 2023-11-27 09:17 | Ultrasound Report ---
US venous doppler LE BI CLINICAL HISTORY: swelling TECHNIQUE: Bilateral lower extremity real-time compression venous ultrasound with Color Doppler imagi ng. Utilizing real-time ultrasonic imaging multiple real time high-resolution ultrasonic images with compression and noncompression maneuvers of the deep venous system in addition to color doppler imagi ng were performed from the common femoral vein through the proximal calf veins. COMPARISON: None available at the time of this dictation. FINDINGS/IMPRESSION: Currently there is normal compressibility of the deep venous system from the common femoral vein thro ugh the proximal calf veins. Popliteal cyst is seen in the left. ACT 112: Negative or not required by law. Electronically signed by: Ney Small M.D. 11/27/2023 9:16 AM
[2023-11-27] MEDS: DULoxetine HCL 30 MG CAP PO SCH (09:47)
[2023-11-27] MEDS: UMECLIDINIUM BROMIDE 62.5MCG/BLISTER 7 PUFFS/INHALER INH SCH (09:47)
[2023-11-27] MEDS: CEROVITE ADV FORMULA TAB PO SCH (09:48)
[2023-11-27] MEDS: SPIRONOLACTONE 12.5 MG TAB PO SCH (09:48)
[2023-11-27] MEDS: CHOLECALCIFEROL 10 MCG (400 UNITS) TAB PO SCH (09:48)
[2023-11-27] MEDS: DIGOXIN 0.125 MG TAB PO SCH (09:48)
[2023-11-27] MEDS: ROSUVASTATIN CALCIUM 5 MG TAB PO SCH (09:48)
[2023-11-27] MEDS: predniSONE 5 MG TAB PO SCH (09:49)
[2023-11-27] MEDS: EMPAGLIFLOZIN 10 MG TAB PO SCH (09:49)
[2023-11-27] MEDS: ADVANCED PROBIOTIC 625 MG CAPSULE PO SCH (09:49)
[2023-11-27] MEDS: ASPIRIN 81 MG ECTAB PO SCH (09:49)
[2023-11-27] MEDS: ACETAMINOPHEN 325 MG TAB PO PRN (09:49)
[2023-11-27] MEDS: ESCITALOPRAM OXALATE 10 MG TAB PO SCH (09:49)
[2023-11-27 09:50] LABS: Estimated Average Glucose 114 mg/dl; Hemoglobin A1C 5.6 % (4.5-5.6)
[2023-11-27] MEDS: IPRATROPIUM BROMIDE NEB SOLN 0.02% 0.5MG/2.5ML VIAL NEB STA (11:02)
[2023-11-27] MEDS: LEVALBUTEROL 1.25 MG/3 ML NEB NEB STA (11:02)
--- NOTE | 2023-11-27 14:53 | Hospitalist Progress Note ---
Date of Service November 27, 2023 Assessment & Plan (1) Cellulitis of left lower extremity: (2) Atrial fibrillation with rapid ventricular response: (3) Elevated troponin: (4) Chronic combined systolic and diastolic CHF (congestive heart failure): (5) HFrEF (heart failure with reduced ejection fraction): (6) PAD (peripheral artery disease): (7) Rheumatoid arthritis: Plan per admitting service notes with addendum: 58-year-old male with past medical history significant for COPD, lung nodules, peripheral artery disease, chronic systolic CHF, history of SVT, small vessel disease, frequent PVCs, persistent atrial fibrillation, GERD, degenerative's disease, scoliosis, osteoporosis, rheumatoid arthritis involving multiple sites with positive rheumatoid factor, immunodeficiency due to drugs, moderate episode of recurrent depression, erectile dysfunction, tobacco use disorder, hepatitis C virus infection cured after antiviral drug therapy, long-term systemic steroid user Who reports to ED secondary to left lower extremity redness and pain for 2 days. Cellulitis of left lower extremity admit to [facility] tele skin marker utilized in ED evidence of open blister that de roofed, unknown trauma ? dog/cat scratch no signs of sepsis continue IV zosyn, consult wound care with evidence of b/l petechiae, plts stable, ? if vasculitis component, if no improvement consider ANCA/complement work up given hx of RA 11/26 Wound culture: Staph species, preliminary Blood culture: Pending Nasal MRSA: Negative Cellulitis seems to be continued at this point Not exceeding demarcation line Continue IV Zosyn Elevated troponin pt with chronic elevation in the past no report of chest pain, 2hr trop flat Troponin trended down 89, 94, 63 EKG no signs of acute ischemia or infarct No chest pain Chronic systolic/diastolic CHF CAD PAD follows [facility] cards, daily weights, strict intake and output euvolemic on exam continue lasix, aldactone, entresto, Jardiance, metoprolol, asa, statin Echo September 2023: EF of 50 to 55%, moderate dilatation of left atrium. Chronic atrial fibrillation continue metoprolol and eliquis pt missed a.m. dose, likely why rates uncontrolled, resume home meds will replace potassium and magnesium to try to keep mag > 2 and K > 4.0 Stable Rheumatoid arthritis continue daily pred, also on Kevzara and sulfasalazine as outpt COPD no acute exac pt reports recently returned to smoking, encourage cessation Hep C s/p treatment DVT ppx: Eliquis Dispo:Anticipate discharge to home medically stable FULL CODE PCP: Renuka Admission and Anticipated Discharge Date Admission Date: November 27, 2023 Subjective Follow-up for left lower extremity wound, cellulitis, etc. Seen sitting up in bed, comfortable, not in distress States left lower leg is about the same as yesterday, may be slightly even worse in terms of swelling and redness Reports some dyspnea after physical therapy No chest pain, palpitations, dizziness No chills today No other new symptoms Review of Systems Review of Systems: all noted and negative except for above Physical Exam Physical Exam: General- oriented x 3, not in distress, speaks in sentences with no effort or accessory muscle use Eyes- anicteric Neck- no JVD Lungs- clear breath sounds bilaterally, no rales/wheezes Heart- normal rate, regular rhythm; no murmurs Abdomen- normal bowel sounds, nondistended, soft, No tenderness Extremities- no pretibial edema, no calf tenderness Left lower leg: Wounds over the left lower extremity, posterior aspect, dry, no bleeding or discharge Surrounding erythema, mild to moderate, not exceeding demarcation line placed at the ER No warmth, mild tenderness Mild bipedal edema Neuro- alert, oriented x 3; no gross focal neurologic deficits Skin- warm & dry Results & Data Results & Data Vital Signs (Past 12 Hours) Vital Signs Temp Pulse Pulse Pulse Resp BP Pulse Ox 11/27/23 12:25 36.8 C 96 H 18 108/68 100 11/27/23 11:04 81 18 98 11/27/23 08:34 36.6 C 111 H 18 95/61 L 100 11/27/23 07:37 93 H 11/27/23 03:29 36.6 C 97 H 18 98/66 L 96 O2 Del Method O2 Flow Rate 11/27/23 12:25 Nasal Cannula 2 11/27/23 11:04 Nasal Cannula 2 11/27/23 08:34 Nasal Cannula 2 11/27/23 07:37 11/27/23 03:29 Nasal Cannula 2 all noted and reviewed including below
[2023-11-28] MEDS: ONDANSETRON INJ 2 MG/ML 2 ML VIAL IV PRN (05:56)
--- NOTE | 2023-11-28 06:00 | Electrocardiogram Report ---
Test Reason : Blood Pressure : / mmHG Vent. Rate : 119 BPM Atrial Rate : 059 BPM P-R Int : 000 ms QRS Dur : 084 ms QT Int : 330 ms P-R-T Axes : 000 106 192 degrees QTc Int : 464 ms Atrial fibrillation with rapid ventricular response with premature ventricular or aberrantly conducte d complexes Rightward axis Low voltage QRS Abnormal ECG When compared with ECG of 31-OCT-2023 03:13, Inverted T waves have replaced nonspecific T wave abnormality in Inferior leads T wave inversion now evident in Anterior leads Confirmed by Junior Valle ([id number]) on 11/28/2023 6:00:30 AM Referred By: Confirmed By:Junior Valle
--- NOTE | 2023-11-28 06:43 | Electrocardiogram Report ---
Test Reason : Blood Pressure : / mmHG Vent. Rate : 097 BPM Atrial Rate : 127 BPM P-R Int : 000 ms QRS Dur : 088 ms QT Int : 374 ms P-R-T Axes : 000 105 169 degrees QTc Int : 474 ms Atrial fibrillation Rightward axis Low voltage QRS Nonspecific ST and T wave abnormality Abnormal ECG When compared with ECG of 26-NOV-2023 14:31, Criteria for Septal infarct are no longer Present Confirmed by Junior Valle ([id number]) on 11/28/2023 6:43:14 AM Referred By: REFERRED SELF Confirmed By:Junior Valle
[2023-11-28 08:45] LABS: Hematocrit (blood only) 32.2 % (42.0-52.0); Hemoglobin 9.6 g/dl (14.0-18.0); Mean Corpuscular Hemoglobin 23.5 pg (25.0-34.0); Mean Corpuscular Hgb Conc 29.8 g/dL (32.0-36.0); Mean Corpuscular Volume 78.7 fL (80.0-100.0); Mean Platelet Volume 9.2 fL (9.4-12.4); Platelet Count 338 K/uL (130-400); RDW Coefficient of Variation 21.2 % (11.5-14.5); RDW Standard Deviation 60.8 fL (36.4-46.3); Red Blood Count 4.09 M/uL (4.70-6.10); White Blood Count 6.01 K/ul (4.8-10.8)
[2023-11-28 08:59] LABS: BUN Creatinine Ratio 16.3 (10-20); Calcium 8.6 mg/dl (8.6-10.3); Creatinine Clr Calc Pharmacy 106.4 ml/min; Est GFR (Non-African American) 94.9 ml/min; Potassium 4.1 mmol/L (3.5-5.1)
--- NOTE | 2023-11-28 10:11 | Hospitalist Progress Note ---
Date of Service November 28, 2023 Assessment & Plan (1) Cellulitis of left lower extremity: (2) Atrial fibrillation with rapid ventricular response: (3) Elevated troponin: (4) Chronic combined systolic and diastolic CHF (congestive heart failure): (5) HFrEF (heart failure with reduced ejection fraction): (6) PAD (peripheral artery disease): (7) Rheumatoid arthritis: Plan 58-year-old male with past medical history significant for COPD, lung nodules, peripheral artery disease, chronic systolic CHF now recovered EF, history of SVT, small vessel disease, frequent PVCs, persistent atrial fibrillation, GERD, degenerative's disease, scoliosis, osteoporosis, rheumatoid arthritis involving multiple sites with positive rheumatoid factor, immunodeficiency due to drugs, moderate episode of recurrent depression, erectile dysfunction, tobacco use disorder, hepatitis C virus infection cured after antiviral drug therapy, long- term systemic steroid user Who reports to ED secondary to left lower extremity redness and pain for 2 days. Cellulitis of left lower extremity Evidence of open blister that de roofed, unknown trauma ? dog/cat scratch (Has pets at home. He does not recall if he got scratched) No signs of sepsis Continue wound care for now Wound culture growing MSSA and pasteurella Change zosyn to Unasyn Elevated troponin Patient with chronic elevation in the past No chest pain on admission. Trop trend 89->94->63 Reported chest pressure this morning Get EKG Reviewed recent Echo from last month Get Cardiology eval Chronic systolic/diastolic CHF CAD PAD Follows [facility] cards, daily weights, strict intake and output euvolemic on exam Had reduced EF which has recovered from recent two echocardiograms Echo September 2023: EF of 50 to 55%, moderate dilatation of left atrium. Continue lasix, aldactone, entresto, Jardiance, metoprolol, asa, statin Chronic atrial fibrillation Continue metoprolol and eliquis Rheumatoid arthritis Continue daily pred, also on Kevzara and sulfasalazine as outpt COPD No acute exac Smoking cessation counselling Hep C s/p treatment DVT ppx: Eliquis Dispo:Anticipate discharge to home medically stable FULL CODE PCP: Renuka Jarrett spent a total of 50 minutes coordinating, documenting and providing care for this patient excluding time spent in performance of separately billed services Admission and Anticipated Discharge Date Admission Date: November 27, 2023 Subjective Patient seen and examined Reports left leg pain around wound Reported he had chest pain, described as chest pressure earlier this morning, lasted for sometime before it resolved. Occurred at rest. None at this time. Denied dizziness, SOB, cough Denied nausea, vomiting, abd pain,diarrhea Denied chills. No fever Reports chronic knee and back pain Reports chronic neuropathy in both feet Physical Exam Constitutional: + well hydrated; no acute distress Eyes: PERRL, conjunctivae normal, anicteric sclerae ENMT: external ear and nose normal, oropharynx normal Respiratory: normal respiratory effort, lungs clear to auscultation Cardiovascular: Irregularly irregular Gastrointestinal (Abdomen): normal bowel sounds, soft, nontender, no hepatosplenomegaly Musculoskeletal: Left leg wound with surrounding erythema, tenderness within markings Right great toe amputated Neurologic: PERRL, EOMI, accommodation nl, no face palsy, no dysarthria Psychiatric: A+Ox3, euthymic affect Results & Data Results & Data Vital Signs (Past 12 Hours) Vital Signs Temp Pulse Pulse Resp BP BP Pulse Ox 11/28/23 08:39 113/77 11/28/23 07:47 101 H 11/28/23 06:40 37.0 C 81 20 97/62 L 94 11/28/23 04:09 36.7 C 102 H 20 104/66 98 11/28/23 00:00 102 H 11/27/23 23:39 36.7 C 90 20 98/69 L 100 O2 Del Method 11/28/23 08:39 11/28/23 07:47 11/28/23 06:40 Room Air 11/28/23 04:09 Room Air 11/28/23 00:00 11/27/23 23:39 Room Air Laboratory Results Abnormal lab results 11/28/23 Range/Units 08:25 RBC 4.09 L (4.70-6.10) M/uL Hgb 9.6 L (14.0-18.0) g/dl Hct 32.2 L (42.0-52.0) % MCV 78.7 L (80.0-100.0) fL MCH 23.5 L (25.0-34.0) pg MCHC 29.8 L (32.0-36.0) g/dL RDW Std Deviation 60.8 H (36.4-46.3) fL RDW Coeff of Alex 21.2 H (11.5-14.5) % MPV 9.2 L (9.4-12.4) fL Sodium 134 L (136-145) mmol/L Glucose 101 H (70-99(Fasting)) mg/dl
--- NOTE | 2023-11-28 12:26 | Cardiology Consultation ---
Date of Consultation November 28, 2023 Assessment & Plan (1) Chest pain at rest: (2) Elevated troponin I level: (3) Cellulitis of left lower extremity: (4) ASCVD (arteriosclerotic cardiovascular disease): (5) Chronic atrial fibrillation: (6) HTN (hypertension): (7) Dyslipidemia, goal LDL below 70: Plan Complex 58 year old male admitted with left lower extremity cellulitis on November 26, 2023. Patient with epigastric/substernal chest discomfort while eating breakfast this morning. Discomfort described as mild, lasting 1.5 to 2 hours in duration, with spontaneous resolve. EKG without acute change. High sensitivity troponin chronically elevated. Examination with reproducible competent. Options of management discussed. General measures advised. Continue current medications as presently prescribed. Further recommendations pending evaluation by Dr. Luque. I spent a total of 43 minutes on the date of service in preparation, delivery, and documentation of the care provided to this patient excluding any time spent in the performance of separately billed services. This visit was a split-shared visit with the substantive portion of the medical decision making performed by the supervising commercial credit officer/billing provider. Supervising Physician Co-Signing Physician Notes I have personally performed a history and physical examination on the patient. I have reviewed the advance practitioner's documentation, and I agree with, and take responsibility for the plan of care. 58-year-old male admitted secondary to left lower extremity cellulitis. Atypical chest discomfort reported this a.m. after breakfast. No ischemic ECG changes. Chronically elevated high-sensitivity troponin noted. Physical exam with reproducible sternal discomfort. Notes recurrent mild, dull ache after consuming midday meal. No shortness of breath, palpitations, or radiation of discomfort. Recommend repeat ECG and high-sensitivity troponin. Recent echocardiogram demonstrating preserved LV systolic function with LVEF 50-55%. Telemetry demonstrates rate controlled atrial fibrillation. Continue rate control strategy with metoprolol and oral anticoagulation with Eliquis. Other cardiovascular medications including furosemide, Jardiance, Entresto, spironolactone, and low-dose aspirin will be continued as previously ordered. I spent a total of 30 minutes on the date of service in preparation, delivery, a nd documentation of the care provided to this patient, excluding any time spent in the performance of separately billed services. Guillermo Luque DO, [facility] History of Present Illness Reason for Consultation: Chest pain, elevated troponin Requesting Physician: Dr. Saniya Sanon MD Attending Physician: Dr. Saniya Sanon MD History of Present Illness Mr. Harrison Yan Sr is a complex 58-year-old male who was admitted to [facility] on November 26, 2023, presenting to the ED with left leg pain, swelling, redness, and tenderness after possible dog scratch a few days prior at the boarding house where he presently resides. Cardiology consultation requested this (November 28, 2023) morning after the patient experienced an episode of chest discomfort. Patient describes having a very slight, dull epigastric/lower sternal chest discomfort while in the midst of eating breakfast. He notes that the discomfort lasted for 1.5 to 2 hours. He describes falling asleep without difficulty with the chest discomfort then awakening without further chest pain. EKG obtained at 10:17:05 was without acute, new, or worsening ST segment change. High-sensi tivity troponin chronically elevated, as follows this admission: 88.8 -> 89.4 -> 94.4 -> 63.3. Last troponin obtained on November 27, 2023 at 05:33. At the time of my evaluation the patient is resting comfortably without complaint or concern. He notes being inactive overall, primarily limited by orthopedic issues, chronic knee pain. 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 he denies palpitations, shortness of breath, orthopnea, or PND Problem List: Nonobstructive CAD per cardiac catheterization 04/20/2021 at [facility] with Dr. Craig - patent coronary anatomy. 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 Admission to [facility] in October 2023 with bacteremia, atrial fibrillation with a rapid ventricular response Allergies Allergy/AdvReac Type Severity Reaction Status Date / Time No Known Allergies Allergy Verified 10/24/23 16:32 Home Medications Medication Instructions Recorded Confirmed Type aspirin 81 mg tablet,delayed 81 mg PO QAM 04/04/21 11/26/23 History release (Bob Low Dose Aspirin) omeprazole 40 mg capsule,delayed 40 mg PO DAILYBB 04/04/21 11/26/23 History release nitroglycerin 0.4 mg sublingual 0.4 mg sublingual .PRN/UD PRN 08/27/21 11/26/23 History tablet Chest Pain rosuvastatin 5 mg tablet 5 mg PO QAM 08/27/21 11/26/23 History tiotropium bromide 2.5 2 inh inhalation QAM 04/06/22 11/26/23 History mcg/actuation mist for inhalation (Spiriva Respimat) alendronate 70 mg tablet 70 mg PO WK 07/05/22 11/26/23 History apixaban 5 mg tablet (Eliquis) 5 mg PO BID #60 tabs 07/10/22 11/26/23 Rx cholecalciferol (vitamin D3) 10 10 mcg PO QAM 08/13/23 11/26/23 History mcg (400 unit) capsule (Vitamin D3) digoxin 125 mcg (0.125 mg) tablet 0.125 mcg PO QAM 08/13/23 11/26/23 History empagliflozin 10 mg tablet 10 mg PO QAM 08/13/23 11/26/23 History (Jardiance) escitalopram oxalate 10 mg tablet 10 mg PO QAM 08/13/23 11/26/23 History ondansetron HCl 4 mg tablet 4 mg PO Q8H PRN Nausea 08/13/23 11/26/23 History sarilumab 200 mg/1.14 mL 200 mg subcut .[id number] 08/13/23 11/26/23 History subcutaneous pen injector (Kevzara) sulfasalazine 500 mg tablet 1,000 mg PO BID 08/13/23 11/26/23 History magnesium oxide 400 mg (241.3 mg 400 mg PO BID 15 days #30 tabs 08/30/23 11/26/23 Rx magnesium) tablet duloxetine 30 mg capsule,delayed 30 mg PO QAM 10/24/23 11/26/23 History release furosemide 40 mg tablet 40 mg PO BID 11/26/23 11/26/23 History metoprolol succinate 100 mg 150 mg PO AMHS 11/26/23 11/26/23 History tablet,extended release 24 hr [id number] 300 mcg-K 60 1 tab PO QAM 11/26/23 11/26/23 History mcg-lycop 600 mcg-lutein 300 mcg tablet (Centrum Silver Men) prednisone 5 mg tablet 5 - 10 mg PO DAILY RHEUMATOID 11/26/23 11/26/23 History ARTHRITIS sacubitril 24 mg-valsartan 26 mg 0.5 tab PO AMHS 11/26/23 11/26/23 History tablet (Entresto) spironolactone 25 mg tablet 12.5 mg PO QAM 11/26/23 11/26/23 History oxycodone-acetaminophen 10 mg-325 1 tab PO Q6H PRN Pain 11/28/23 11/28/23 History mg tablet Patient History Medical History Pre-diabetes Erectile dysfunction Tobacco use disorder Surgical History History of cardiac cath History of colonoscopy Hx of tonsillectomy Family History Other Heart disease Hypertension Social History Smoking Status: Current every day smoker Tobacco Type: Cigarettes Cigarettes Per Day: 1; Second Hand Exposure: Yes; Do You Dip or Chew Tobacco: No; Hx Alcohol Use: No Hx Substance Use: No Preferred Language: Macedonian Communication Ability: Effective Aviation Technician Aircraft Required: No Beliefs That Will Affect Care: None Current Living Situation: Personal Care Facility Current Living Situation Comment: Lives at home with girlfriend Hayley, & their child Danica Feels Safe at Home: Yes Safety Concerns: Feels Safe At This Time Assistive Devices: Oxygen - Continuous and Walker Review of Systems Review of Systems: Complete Review of Systems is as stated above, negative, or noncontributory. Physical Exam Physical Exam: General: A&Ox3. NAD. Laying supine HENT: Normocephalic. Atraumatic. Eyes: PER. Conjunctiva pink, sclera clear. Neck: No JVD. Heart: Irregularly irregular at 90 bpm. No murmur. No rub. Chest: + Mild tenderness to palpitation lower 1/3 of the sternum. Lungs: Diminished. Decreased. No wheeze. Abdomen: +BS. Soft. Nontender. No masses or organomegaly. Extremities: Dressing to the left lower extremity not removed. Limited neurological examination is without focal deficits. Pulses: Posterior tibial=0/4. Results & Data Vital Signs (Past 12 Hours) Vital Signs Temp Pulse Pulse Pulse Resp BP BP 11/28/23 11:38 36.8 C 80 17 108/71 11/28/23 08:39 113/77 11/28/23 07:47 101 H 11/28/23 06:40 37.0 C 81 20 97/62 L 11/28/23 04:09 36.7 C 102 H 20 104/66 Pulse Ox O2 Del Method 11/28/23 11:38 99 Room Air 11/28/23 08:39 11/28/23 07:47 11/28/23 06:40 94 Room Air 11/28/23 04:09 98 Room Air Laboratory Results CBC 11/28/23 Range/Units 08:25 WBC 6.01 (4.8-10.8) K/ul RBC 4.09 L (4.70-6.10) M/uL Hgb 9.6 L (14.0-18.0) g/dl Hct 32.2 L (42.0-52.0) % Plt Count 338 (130-400) K/uL Comprehensive Metabolic Panel 11/28/23 Range/Units 08:25 Sodium 134 L (136-145) mmol/L Potassium 4.1 (3.5-5.1) mmol/L Chloride 103 (98-107) mmol/L Carbon Dioxide 25 (21-32) mmol/L BUN 14 (6-23) mg/dl Creatinine 0.86 (0.6-1.4) mg/dl Glucose 101 H (70-99(Fasting)) mg/dl Calcium 8.6 (8.6-10.3) mg/dl Intake and Output 11/27/23 11/28/23 11/28/23 22:59 06:59 14:59 Intake Total 340 / 1300 220 / 1300 100 / 100 Output Total 1200 / 3500 1900 / 3500 Balance -860 / -2200 -1680 / -2200 100 / 100 Intake: IV 100 / 300 100 / 300 100 / 100 Piperacillin/Tazobactam 4.5 gm 100 / 300 100 / 300 100 / 100 In Dextrose 5% Mini-B 100 ml @ 25 mls/hr IV Q8H [facility] Rx#: [id number] Oral 240 / 1000 120 / 1000 Output: Urine 1200 / 3500 1900 / 3500 Other: Weight 97.3 kg Weight Measurement Method Built in [facility]
[2023-11-28] MEDS: oxyCODONE HCL IR 5 MG TAB (IMMEDIATE RELEASE) PO PRN (13:31)
[2023-11-28] MEDS: AMPICILLIN/SULBACTAM SOD 3,000 MG in SODIUM CHLOR 0.9% MINI-B 100 ML IV SCH (13:32)
[2023-11-28] MEDS: ALUMINUM/MAGNESIUM SUSP 30 ML UDC PO STA (13:32)
[2023-11-28 14:44] LABS: Troponin I High Sensitivity 27.9 pg/ml (0-20)
[2023-11-28] MEDS: MAGNESIUM SULFATE / D5W 1 GM/100 ML BAG IV ONE (22:41)
[2023-11-28 22:46] LABS: Magnesium 1.8 mg/dl (1.7-2.4)
--- NOTE | 2023-11-29 00:27 | Electrocardiogram Report ---
Test Reason : Blood Pressure : / mmHG Vent. Rate : 087 BPM Atrial Rate : 079 BPM P-R Int : 000 ms QRS Dur : 086 ms QT Int : 380 ms P-R-T Axes : 000 096 129 degrees QTc Int : 457 ms Poor data quality, interpretation may be adversely affected Atrial fibrillation Rightward axis Low voltage QRS Nonspecific T wave abnormality Abnormal ECG When compared with ECG of 28-NOV-2023 10:17, No significant change Confirmed by Junior Valle ([id number]) on 11/29/2023 12:27:36 AM Referred By: REFERRED SELF Confirmed By:Junior Valle
--- NOTE | 2023-11-29 00:27 | Electrocardiogram Report ---
Test Reason : Blood Pressure : / mmHG Vent. Rate : 081 BPM Atrial Rate : 340 BPM P-R Int : 000 ms QRS Dur : 086 ms QT Int : 380 ms P-R-T Axes : 000 100 144 degrees QTc Int : 441 ms Atrial fibrillation with premature ventricular or aberrantly conducted complexes Rightward axis Low voltage QRS Cannot rule out Septal infarct , age undetermined Nonspecific T wave abnormality Abnormal ECG When compared with ECG of 27-NOV-2023 05:11, No significant change Confirmed by Junior Valle ([id number]) on 11/29/2023 12:26:56 AM Referred By: REFERRED SELF Confirmed By:Junior Valle
[2023-11-29 07:10] LABS: Hematocrit (blood only) 35.5 % (42.0-52.0); Hemoglobin 10.9 g/dl (14.0-18.0); Mean Corpuscular Hemoglobin 23.8 pg (25.0-34.0); Mean Corpuscular Hgb Conc 30.7 g/dL (32.0-36.0); Mean Corpuscular Volume 77.5 fL (80.0-100.0); Mean Platelet Volume 9.9 fL (9.4-12.4); Platelet Count 402 K/uL (130-400); RDW Coefficient of Variation 21.1 % (11.5-14.5); RDW Standard Deviation 59.1 fL (36.4-46.3); Red Blood Count 4.58 M/uL (4.70-6.10); White Blood Count 5.51 K/ul (4.8-10.8)
[2023-11-29 07:29] LABS: BUN Creatinine Ratio 19.8 (10-20); Calcium 8.7 mg/dl (8.6-10.3); Creatinine Clr Calc Pharmacy 113.1 ml/min; Est GFR (African American) 112.7 ml/min; Est GFR (Non-African American) 97.3 ml/min; Phosphorus 3.3 mg/dl (2.5-4.9); Potassium 3.9 mmol/L (3.5-5.1)
--- NOTE | 2023-11-29 09:36 | Cardiology Progress Note ---
Date of Service November 29, 2023 Assessment & Plan (1) Chest pain at rest: (2) Elevated troponin I level: (3) Cellulitis of left lower extremity: (4) ASCVD (arteriosclerotic cardiovascular disease): (5) Chronic atrial fibrillation: (6) HTN (hypertension): (7) Dyslipidemia, goal LDL below 70: Plan Complex 58 year old male admitted with left lower extremity cellulitis on November 26, 2023. Patient with epigastric/substernal chest discomfort aggravated by eating. Examination with reproducible competent. EKG without acute change. High sensitivity troponin chronically elevated and downtrending. Telemetry benign. Recent TTE with preserved LV systolic function, EF 50-55%. Recommend continuing the current cardiac medication regimen as prescribed. Cardiology will sign off; please contact with any questions or concerns. I spent a total of 23 minutes on the date of service in preparation, delivery, and documentation of the care provided to this patient excluding any time spent in the performance of separately billed services. This visit was a split-shared visit with the substantive portion of the medical decision making performed by the supervising publication distributor/billing provider. Admission and Anticipated Discharge Date Admission Date: November 27, 2023 Supervising Physician Co-Signing Physician Notes I have personally performed a history and physical examination on the patient. I have reviewed the advance practitioner's documentation, and I agree with, and take responsibility for the plan of care. 58-year-old male admitted secondary to left lower extremity cellulitis. Atypical chest discomfort reported. No ischemic ECG changes. Chronically elevated high-sensitivity troponin. Physical exam with reproducible sternal discomfort. No evidence of acute coronary syndrome. Recent echocardiogram demonstrating preserved LV systolic function with LVEF 50-55%. Telemetry demonstrates rate controlled atrial fibrillation. Continue rate control strategy with metoprolol and oral anticoagulation with Eliquis. Other cardiovascular medications including furosemide, Jardiance, Entresto, spironolactone, and low-dose aspirin will be continued as previously ordered. No further inpatient cardiac testing or intervention recommended at this time. Cardiology will sign off. Please call with additional concerns/ques tions. I spent a total of 20 minutes on the date of service in preparation, delivery, and documentation of the care provided to this patient, excluding any time spent in the performance of separately billed services. Guillermo Luque DO [facility] Subjective Patient seen and examined. Chart, medications, and telemetry reviewed. Nausea/GI upset this AM. No emesis. Intermittent atypical chest pain, seemingly worse with oral intake, unaided by Maalox, on Protonix, and PRN Pepcid (not given). EKG without acute change. High sensitivity troponin chronically elevated, downtrending. Telemetry: Rate controlled (chronic) atrial fibrillation. Heart rates predominately in the 90's. Review of Systems Review of Systems: Complete Review of Systems is as stated above, negative, or noncontributory. Physical Exam Physical Exam: General: A&Ox3. NAD. Laying supine HENT: Normocephalic. Atraumatic. Eyes: PER. Conjunctiva pink, sclera clear. Neck: No JVD. Heart: Irregularly irregular at 100 bpm. No murmur. No rub. Chest/Epigastic: + Mild tenderness to palpitation of the lower sternum and epigastic area Lungs: Diminished. Decreased. No wheeze. Abdomen: +BS. Soft. Nontender. No masses or organomegaly. Extremities: Dressing to the left lower extremity not removed. No edema. Limited neurological examination is without focal deficits. Pulses: Posterior tibial=0/4. Results & Data Vital Signs (Past 12 Hours) Vital Signs Temp Pulse Resp BP BP Pulse Ox O2 Del Method 11/29/23 07:27 36.3 C L 91 H 18 113/78 96 Room Air 11/29/23 03:19 36.6 C 102 H 20 114/82 96 Room Air 11/28/23 23:32 36.6 C 93 H 20 96/64 L 94 Room Air Laboratory Results Cardiac Enzymes 11/28/23 Range/Units 13:58 Troponin I High Sens 27.9 H D (0-20) pg/ml CBC 11/29/23 Range/Units 06:21 WBC 5.51 (4.8-10.8) K/ul RBC 4.58 L (4.70-6.10) M/uL Hgb 10.9 L (14.0-18.0) g/dl Hct 35.5 L (42.0-52.0) % Plt Count 402 H (130-400) K/uL Comprehensive Metabolic Panel 11/29/23 Range/Units 06:21 Sodium 133 L (136-145) mmol/L Potassium 3.9 (3.5-5.1) mmol/L Chloride 97 L (98-107) mmol/L Carbon Dioxide 30 (21-32) mmol/L BUN 16 (6-23) mg/dl Creatinine 0.81 (0.6-1.4) mg/dl Glucose 100 H (70-99(Fasting)) mg/dl Calcium 8.7 (8.6-10.3) mg/dl Intake and Output 11/28/23 11/29/23 11/29/23 22:59 06:59 14:59 Intake Total 340 / 1600 460 / 1600 Output Total 700 / 2801 950 / 2801 Balance -360 / -1201 -490 / -1201 Intake: IV 100 / 600 300 / 600 Ampicillin/Sulbactam Sod 3,000 100 / 400 200 / 400 mg In Sodium Chlor 0.9% Mini-B 100 ml @ 200 mls/hr IV Q6H [facility] Rx#:[id number] Magnesium Sulfate / D5w 1 gm In 100 / 100 100 ml @ 50 mls/hr IV [facility] Rx#:[id number] Oral 240 / 1000 160 / 1000 Output: Urine 700 / 2800 950 / 2800 Other: Weight 97.5 kg
[2023-11-29] MEDS: ALUMINUM/MAGNESIUM SUSP 30 ML UDC PO PRN (10:11)
--- NOTE | 2023-11-29 13:11 | Discharge Summary ---
Date of Service November 29, 2023 Admission HPI Per Admitting Provider 58-year-old male with past medical history significant for COPD, lung nodules, peripheral artery disease, chronic systolic CHF, history of SVT, small vessel disease, frequent PVCs, persistent atrial fibrillation, GERD, degenerative's disease, scoliosis, osteoporosis, rheumatoid arthritis involving multiple sites with positive rheumatoid factor, immunodeficiency due to drugs, moderate episode of recurrent depression, erectile dysfunction, tobacco use disorder, hepatitis C virus infection cured after antiviral drug therapy, long-term systemic steroid user Who reports to ED secondary to left lower extremity redness and pain for 2 days. He reports pain and redness to his L leg. This started 1.5 days ago. He denies any trauma or fall. He states he has dogs at home that sometimes, "paw," at him, but he doesn't recall and steven scratches. He also has cats. He denies any known fever, chills or sweats. He feels the redness and pain has been getting worse over the last 2 days. He rates pain a 4/10. He has felt nauseated but no vomiting. He has been able to eat and drink. He does report some increased shortness of breath at rest and with exertion that is not normal for him. He denies any chest pain, cough, URI symptoms, palpitations, abdominal pain, change in his bowel or urinary habits. He states he did not take any medications today. He started smoking again 2 weeks due to his, "nerves." Of significance patient was recently hospitalized on 10/23 to 11/02/2023 secondary to bacteremia. On initial presentation with a 4 blood cultures came back positive for GPC in chains and repeat blood cultures came back 1 and 4 positive for CONS, likely contaminant. He was seen and evaluated by infectious disease. Source was unclear. He completed 1 week of ceftriaxone inpatient and had no fever or leukocytosis post antibiotic. Initial culture was sent to lab as they could not identify it and later speciated to Moraxella. Infectious disease recommended no further antibiotics. His hospital course was complicated with a fibrillation with RVR as well as acute on chronic systolic and diastolic CHF. Cardiology was consulted who assisted with medication management and at discharge his metoprolol succinate was increased to 150 twice daily and home Entresto reduced to half a tablet twice daily due to hypotension. He was then [facility] where he completed a course of rehab and was discharged home. His outpatient records were reviewed and he has not seen a primary care provider since discharge. In ED patient was hemodynamically stable. He was in atrial fibrillation his heart rates were in the low 100s. ED provider concern for left lower extremity cellulitis and therefore treated with IV Zosyn. He did have initial elevation in troponin 88 but this stayed relatively flat after 2 hours. Discharge Data Allergies Allergy/AdvReac Type Severity Reaction Status Date / Time No Known Allergies Allergy Verified 10/24/23 16:32 Consultations 11/26/23 17:55 ED Decision to Admit Stat 11/28/23 10:26 Consult Cardiology Routine Ordered Studies 11/27/23 venous doppler LE BI Stat Discharge Plan Discharge Items Patient Disposition: Home - Home Health Services Reason For Visit: LLE CELLULITIS Discharge Diagnosis: Left leg wound and cellulitis Activity: Resume your previous activity Non-emergency contact: Primary Care Provider Call non-emergency contact if: you have any medication questions Follow-up/Referrals: Anahy Grayson MD [Primary Care Provider] - Diet: Heart Healthy [employer] Attending Provider Instructions: Mr Morgan You came to the hospital due to left leg wound. You were treated with IV antibiotics, now changed to tablet form to complete treatment Please ensure follow up with your Primary Doctor and Wound care clinic Continue wound dressing as we discussed. [employer] Specialist Provider Instructions: Wound dressing instruction: Clean with saline and pat dry Apply kaltostat and wrap with kerlix daily and as needed if increased drainage Pending Studies at Discharge: No Stand-Alone Forms: My [employer], Smoking Cessation Medications and DC Order Prescriptions: New amoxicillin-pot clavulanate 875-125 mg tablet 1 tab PO BID Qty: 10 0RF Continued rosuvastatin 5 mg tablet 5 mg PO QAM nitroglycerin 0.4 mg tablet, sublingual 0.4 mg sublingual .PRN/UD PRN (Reason: Chest Pain) Rx Instructions: NEEDED FOR CHEST PAIN : ONE TABLET UNDER THE TONGUE EVERY 5 MINUTES UP TO THREE DOSES. omeprazole 40 mg capsule,delayed release(DR/EC) 40 mg PO DAILYBB aspirin [Bob Low Dose Aspirin] 81 mg Tablet,Delayed Release (Dr/Ec) 81 mg PO QAM Spiriva Respimat 2.5 mcg/actuation mist 2 inh INHALATION QAM alendronate 70 mg tablet 70 mg PO WK Rx Instructions: TAKE THIS MED EVERY irene Eliquis 5 mg tablet 5 mg PO BID Qty: 60 0RF sulfasalazine 500 mg tablet 1,000 mg PO BID ondansetron HCl 4 mg tablet 4 mg PO Q8H PRN (Reason: Nausea) digoxin 125 mcg (0.125 mg) tablet 0.125 mcg PO QAM cholecalciferol (vitamin D3) [Vitamin D3] 10 mcg (400 unit) Capsule 10 mcg PO QAM escitalopram oxalate 10 mg tablet 10 mg PO QAM Jardiance 10 mg tablet 10 mg PO QAM Kevzara 200 mg/1.14 mL pen injector 200 mg SUBCUT .[id number] magnesium oxide 400 mg (241.3 mg magnesium) Tablet 400 mg PO BID 15 Days Qty: 30 1RF duloxetine 30 mg capsule,delayed release(DR/EC) 30 mg PO QAM Entresto 24-26 mg tablet 0.5 tab PO AMHS spironolactone 25 mg tablet 12.5 mg PO QAM metoprolol succinate 100 mg tablet extended release 24 hr 150 mg PO AMHS Rx Instructions: 1 & 1/2 tablet dose furosemide 40 mg tablet 40 mg PO BID prednisone 5 mg tablet 5 - 10 mg PO DAILY Centrum Silver Men [id number] mcg Tablet 1 tab PO QAM oxycodone-acetaminophen 10-325 mg tablet 1 tab PO Q6H PRN (Reason: Pain) Discharge Orders: Discharge Order (Routine); Ordered 11/29/23 Ordered By: Saniya Sanon Admission Data Admit Date/Time: 11/27/23 10:20 Attending Provider: Saniya Sanon I. Admit Provider: Chapo Abarca Primary Care Provider: Anahy Grayson Other Providers: Chapo Abarca; Pelon Hoyos; Guillermo Luque
--- NOTE | 2023-11-29 14:38 | Hospitalist Progress Note ---
Date of Service November 29, 2023 Assessment & Plan (1) Cellulitis of left lower extremity: (2) Atrial fibrillation with rapid ventricular response: (3) Elevated troponin: (4) Chronic combined systolic and diastolic CHF (congestive heart failure): (5) HFrEF (heart failure with reduced ejection fraction): (6) PAD (peripheral artery disease): (7) Rheumatoid arthritis: Plan 58-year-old male with past medical history significant for COPD, lung nodules, peripheral artery disease, chronic systolic CHF now recovered EF, history of SVT, small vessel disease, frequent PVCs, persistent atrial fibrillation, GERD, degenerative's disease, scoliosis, osteoporosis, rheumatoid arthritis involving multiple sites with positive rheumatoid factor, immunodeficiency due to drugs, moderate episode of recurrent depression, erectile dysfunction, tobacco use disorder, hepatitis C virus infection cured after antiviral drug therapy, long- term systemic steroid user Who reports to ED secondary to left lower extremity redness and pain for 2 days. Cellulitis of left lower extremity Evidence of open blister that de roofed, unknown trauma ? dog/cat scratch (Has pets at home. He does not recall if he got scratched) No signs of sepsis Continue wound care for now Wound culture growing MSSA and pasteurella Change zosyn to Unasyn Elevated troponin Patient with chronic elevation in the past No chest pain on admission. Trop trend 89->94->63 Chest pain is reproducible. Likely MSK Reviewed recent Echo from last month Card carlyleal noted Chronic systolic/diastolic CHF CAD PAD Follows [employer] cards, daily weights, strict intake and output Euvolemic on exam Had reduced EF which has recovered from recent two echocardiograms Echo September 2023: EF of 50 to 55%, moderate dilatation of left atrium. Continue lasix, aldactone, entresto, Jardiance, metoprolol, asa, statin Chronic atrial fibrillation Continue metoprolol and eliquis Rheumatoid arthritis Continue daily pred, also on Kevzara and sulfasalazine as outpt COPD No acute exac Smoking cessation counselling Hep C s/p treatment DVT ppx: Eliquis Initially planned for dc today However, girlfriend reported he is not able to come out due to home issues (?PFA) and will like him to go to SNF CM aware and to start working on placement FULL CODE PCP: Renuka Jarrett spent a total of 40 minutes coordinating, documenting and providing care for this patient excluding time spent in performance of separately billed services Admission and Anticipated Discharge Date Admission Date: November 27, 2023 Subjective Patient seen and examined Reports left leg pain around wound is controlled Reported occasional chest pain Reports chronic knee and back pain Reports chronic neuropathy in both feet Physical Exam Constitutional: + well hydrated; no acute distress Eyes: PERRL, conjunctivae normal, anicteric sclerae ENMT: external ear and nose normal, oropharynx normal Respiratory: normal respiratory effort, lungs clear to auscultation Cardiovascular: Irregularly irregular S1 S2 Gastrointestinal (Abdomen): normal bowel sounds, soft, nontender, no hepatosplenomegaly Musculoskeletal: Left leg wound Neurologic: PERRL, EOMI, accommodation nl, no face palsy, no dysarthria Psychiatric: A+Ox3, euthymic affect Results & Data Results & Data Vital Signs (Past 12 Hours) Vital Signs Temp Pulse Pulse Pulse Resp BP Pulse Ox 11/29/23 11:20 36.6 C 66 18 119/82 95 11/29/23 09:59 36.8 C 104 H 18 113/77 93 11/29/23 08:00 11/29/23 08:00 93 H 11/29/23 07:27 36.3 C L 91 H 18 113/78 96 11/29/23 03:19 36.6 C 102 H 20 114/82 96 O2 Del Method 11/29/23 11:20 Room Air 11/29/23 09:59 Room Air 11/29/23 08:00 Room Air 11/29/23 08:00 11/29/23 07:27 Room Air 11/29/23 03:19 Room Air Laboratory Results Abnormal lab results 11/29/23 Range/Units 06:21 RBC 4.58 L (4.70-6.10) M/uL Hgb 10.9 L (14.0-18.0) g/dl Hct 35.5 L (42.0-52.0) % MCV 77.5 L (80.0-100.0) fL MCH 23.8 L (25.0-34.0) pg MCHC 30.7 L (32.0-36.0) g/dL RDW Std Deviation 59.1 H (36.4-46.3) fL RDW Coeff of Alex 21.1 H (11.5-14.5) % Plt Count 402 H (130-400) K/uL Sodium 133 L (136-145) mmol/L Chloride 97 L (98-107) mmol/L Glucose 100 H (70-99(Fasting)) mg/dl
[2023-11-30 05:27] LABS: Hematocrit (blood only) 36.4 % (42.0-52.0); Hemoglobin 10.9 g/dl (14.0-18.0); Mean Corpuscular Hemoglobin 23.4 pg (25.0-34.0); Mean Corpuscular Hgb Conc 29.9 g/dL (32.0-36.0); Mean Corpuscular Volume 78.3 fL (80.0-100.0); Mean Platelet Volume 9.4 fL (9.4-12.4); Platelet Count 387 K/uL (130-400); RDW Coefficient of Variation 21.1 % (11.5-14.5); Red Blood Count 4.65 M/uL (4.70-6.10); White Blood Count 6.19 K/ul (4.8-10.8)
[2023-11-30 05:37] LABS: BUN Creatinine Ratio 20.9 (10-20); Calcium 9.6 mg/dl (8.6-10.3); Creatinine Clr Calc Pharmacy 106.5 ml/min; Est GFR (Non-African American) 94.9 ml/min; Potassium 3.5 mmol/L (3.5-5.1)
--- NOTE | 2023-11-30 10:01 | Hospitalist Progress Note ---
Date of Service November 30, 2023 Assessment & Plan (1) Cellulitis of left lower extremity: (2) Atrial fibrillation with rapid ventricular response: (3) Elevated troponin: (4) Chronic combined systolic and diastolic CHF (congestive heart failure): (5) HFrEF (heart failure with reduced ejection fraction): (6) PAD (peripheral artery disease): (7) Rheumatoid arthritis: Plan 58-year-old male with past medical history significant for COPD, lung nodules, peripheral artery disease, chronic systolic CHF now recovered EF, history of SVT, small vessel disease, frequent PVCs, persistent atrial fibrillation, GERD, degenerative's disease, scoliosis, osteoporosis, rheumatoid arthritis involving multiple sites with positive rheumatoid factor, immunodeficiency due to drugs, moderate episode of recurrent depression, erectile dysfunction, tobacco use disorder, hepatitis C virus infection cured after antiviral drug therapy, long- term systemic steroid user Who reported to ED secondary to left lower extremity redness and pain for 2 days. Cellulitis of left lower extremity Evidence of open blister that de roofed, unknown trauma ? dog/cat scratch (Has pets at home. He does not recall if he got scratched) No signs of sepsis Continue wound care for now Wound culture growing MSSA and pasteurella Currently on Unasyn, plan to switch to Augmentin on DC Elevated troponin Patient with chronic elevation in the past No chest pain on admission. Trop trend 89->94->63 Chest pain is reproducible. Likely MSK Reviewed recent Echo from last month Card eval noted Chronic systolic/diastolic CHF CAD PAD Follows [employer] cards, daily weights, strict intake and output Euvolemic on exam Had reduced EF which has recovered from recent two echocardiograms Echo September 2023: EF of 50 to 55%, moderate dilatation of left atrium. Continue lasix, aldactone, entresto, Jardiance, metoprolol, asa, statin Chronic atrial fibrillation Continue metoprolol and eliquis Rheumatoid arthritis Continue daily pred, also on Kevzara and sulfasalazine as outpt COPD No acute exac Smoking cessation counselling Hep C s/p treatment DVT ppx: Cody CM working on placement Patient is medically stable for discharge FULL CODE PCP: Renuka Jarrett spent a total of 40 minutes coordinating, documenting and providing care for this patient excluding time spent in performance of separately billed services Admission and Anticipated Discharge Date Admission Date: November 27, 2023 Subjective Patient seen and examined Reports left leg pain is improved Denied chest pain this morning Denied any other complaints on ROS Physical Exam Constitutional: + well hydrated; no acute distress Eyes: PERRL, conjunctivae normal, anicteric sclerae ENMT: external ear and nose normal, oropharynx normal Respiratory: normal respiratory effort, lungs clear to auscultation Gastrointestinal (Abdomen): normal bowel sounds, soft, nontender, no hepatosplenomegaly Musculoskeletal: Clean dressing over left leg wound Neurologic: PERRL, EOMI, accommodation nl, no face palsy, no dysarthria Psychiatric: A+Ox3, euthymic affect Results & Data Results & Data Vital Signs (Past 12 Hours) Vital Signs Temp Pulse Pulse Resp BP Pulse Ox O2 Del Method 11/30/23 09:13 94 H 11/30/23 07:44 90 11/30/23 07:26 36.4 C L 95 H 18 115/71 93 Room Air 11/30/23 04:01 36.6 C 104 H 20 99/70 L 97 Room Air 11/30/23 01:01 37.0 C 69 20 113/76 95 Room Air Laboratory Results Abnormal lab results 11/30/23 Range/Units 04:40 RBC 4.65 L (4.70-6.10) M/uL Hgb 10.9 L (14.0-18.0) g/dl Hct 36.4 L (42.0-52.0) % MCV 78.3 L (80.0-100.0) fL MCH 23.4 L (25.0-34.0) pg MCHC 29.9 L (32.0-36.0) g/dL RDW Std Deviation 59.0 H (36.4-46.3) fL RDW Coeff of Alex 21.1 H (11.5-14.5) % Sodium 135 L (136-145) mmol/L BUN/Creatinine Ratio 20.9 H (10-20) Glucose 121 H (70-99(Fasting)) mg/dl
--- NOTE | 2023-12-01 11:03 | Hospitalist Progress Note ---
Date of Service December 01, 2023 Assessment & Plan (1) Cellulitis of left lower extremity: (2) Atrial fibrillation with rapid ventricular response: (3) Elevated troponin: (4) Chronic combined systolic and diastolic CHF (congestive heart failure): (5) HFrEF (heart failure with reduced ejection fraction): (6) PAD (peripheral artery disease): (7) Rheumatoid arthritis: Plan 58-year-old male with past medical history significant for COPD, lung nodules, peripheral artery disease, chronic systolic CHF now recovered EF, history of SVT, small vessel disease, frequent PVCs, persistent atrial fibrillation, GERD, degenerative's disease, scoliosis, osteoporosis, rheumatoid arthritis involving multiple sites with positive rheumatoid factor, immunodeficiency due to drugs, moderate episode of recurrent depression, erectile dysfunction, tobacco use disorder, hepatitis C virus infection cured after antiviral drug therapy, long- term systemic steroid user Who reported to ED secondary to left lower extremity redness and pain for 2 days. Cellulitis of left lower extremity Evidence of open blister that de roofed, unknown trauma ? dog/cat scratch (Has pets at home. He does not recall if he got scratched) No signs of sepsis Continue wound care for now Wound culture growing MSSA and pasteurella Currently on Unasyn, plan to switch to Augmentin on DC to complete treatment Elevated troponin Patient with chronic elevation in the past No chest pain on admission. Trop trend 89->94->63 Chest pain was reproducible. Likely MSK. Now resolved Reviewed recent Echo from last month Card eval noted Chronic systolic/diastolic CHF CAD PAD Follows [employer] cards, daily weights, strict intake and output Euvolemic on exam Had reduced EF which has recovered from recent two echocardiograms Echo September 2023: EF of 50 to 55%, moderate dilatation of left atrium. Continue lasix, aldactone, entresto, Jardiance, metoprolol, asa, statin Chronic atrial fibrillation Continue metoprolol and eliquis Rheumatoid arthritis Continue daily pred, also on Kevzara and sulfasalazine as outpt COPD No acute exac Smoking cessation counselling provided Hep C s/p treatment DVT ppx: Cody CM working on placement Patient is medically stable for discharge FULL CODE PCP: Renuka Jarrett spent a total of 35 minutes coordinating, documenting and providing care for this patient excluding time spent in performance of separately billed services Admission and Anticipated Discharge Date Admission Date: November 27, 2023 Subjective Patient seen and examined Reports left leg pain continues to improve No chest pain Left middle finger is purplish. He stated he has Raynaud's and it improves with warm compress Denied any other complaints on ROS Physical Exam Constitutional: + well hydrated; no acute distress Eyes: PERRL, conjunctivae normal, anicteric sclerae ENMT: external ear and nose normal, oropharynx normal Respiratory: normal respiratory effort, lungs clear to auscultation Cardiovascular: Rate/Rhythm: + irregularly irregular S1 S2 Gastrointestinal (Abdomen): normal bowel sounds, soft, nontender, no hepatosplenomegaly Musculoskeletal: Dressing over left leg. Erythematous area improving Neurologic: PERRL, EOMI, accommodation nl, no face palsy, no dysarthria Psychiatric: A+Ox3, euthymic affect Results & Data Results & Data Vital Signs (Past 12 Hours) Vital Signs Temp Pulse Pulse Resp BP Pulse Ox O2 Del Method 12/01/23 08:42 98 H 12/01/23 07:38 103 H 12/01/23 07:34 36.8 C 83 18 99/67 L 97 Room Air 12/01/23 03:56 36.5 C 72 16 117/75 94 Room Air 11/30/23 23:14 36.5 C 74 18 108/74 94 Room Air
[2023-12-02 07:33] LABS: Hematocrit (blood only) 36.8 % (42.0-52.0); Mean Corpuscular Hemoglobin 23.4 pg (25.0-34.0); Mean Corpuscular Hgb Conc 29.9 g/dL (32.0-36.0); Mean Corpuscular Volume 78.3 fL (80.0-100.0); Mean Platelet Volume 9.5 fL (9.4-12.4); Platelet Count 393 K/uL (130-400); RDW Coefficient of Variation 20.7 % (11.5-14.5); RDW Standard Deviation 57.8 fL (36.4-46.3); White Blood Count 7.06 K/ul (4.8-10.8)
[2023-12-02 08:01] LABS: Anion Gap 5 (3-11); BUN Creatinine Ratio 22.5 (10-20); Blood Urea Nitrogen 18 mg/dl (6-23); Calcium 9.5 mg/dl (8.6-10.3); Carbon Dioxide 35 mmol/L (21-32); Chloride 94 mmol/L (98-107); Creatinine Clr Calc Pharmacy 113.4 ml/min; Est GFR (African American) 113.3 ml/min; Est GFR (Non-African American) 97.8 ml/min; Glucose 110 mg/dl (70-99(Fasting)); Sodium 134 mmol/L (136-145)
--- NOTE | 2023-12-02 10:10 | Hospitalist Progress Note ---
Date of Service December 02, 2023 Assessment & Plan (1) Cellulitis of left lower extremity: (2) Atrial fibrillation with rapid ventricular response: (3) Elevated troponin: (4) Chronic combined systolic and diastolic CHF (congestive heart failure): (5) HFrEF (heart failure with reduced ejection fraction): (6) PAD (peripheral artery disease): (7) Rheumatoid arthritis: Plan 58-year-old male with past medical history significant for COPD, lung nodules, peripheral artery disease, chronic systolic CHF now recovered EF, history of SVT, small vessel disease, frequent PVCs, persistent atrial fibrillation, GERD, degenerative's disease, scoliosis, osteoporosis, rheumatoid arthritis involving multiple sites with positive rheumatoid factor, immunodeficiency due to drugs, moderate episode of recurrent depression, erectile dysfunction, tobacco use disorder, hepatitis C virus infection cured after antiviral drug therapy, long- term systemic steroid user Who reported to ED secondary to left lower extremity redness and pain for 2 days. Cellulitis of left lower extremity Evidence of open blister that de roofed, unknown trauma ? dog/cat scratch (Has pets at home. He does not recall if he got scratched) No signs of sepsis Continue wound care for now Wound culture growing MSSA and pasteurella Currently on Unasyn, plan to switch to Augmentin on DC to complete treatment Elevated troponin Patient with chronic elevation in the past No chest pain on admission. Trop trend 89->94->63 Chest pain was reproducible. Likely MSK. Now resolved Reviewed recent Echo from last month Card eval noted Chronic systolic/diastolic CHF CAD PAD Follows [employer] cards, daily weights, strict intake and output Euvolemic on exam Had reduced EF which has recovered from recent two echocardiograms Echo September 2023: EF of 50 to 55%, moderate dilatation of left atrium. Continue lasix, aldactone, entresto, Jardiance, metoprolol, asa, statin Chronic atrial fibrillation Continue metoprolol and eliquis Rheumatoid arthritis Continue daily pred, also on Kevzara and sulfasalazine as outpt COPD No acute exac Smoking cessation counselling provided Hep C s/p treatment DVT ppx: Cody CM working on placement Patient is medically stable for discharge FULL CODE PCP: Renuka Jarrett spent a total of 35 minutes coordinating, documenting and providing care for this patient excluding time spent in performance of separately billed services Admission and Anticipated Discharge Date Admission Date: November 27, 2023 Subjective Patient seen and examined Minimal left leg pain No new complaints Physical Exam Constitutional: + well hydrated; no acute distress Eyes: PERRL, conjunctivae normal, anicteric sclerae ENMT: external ear and nose normal, oropharynx normal Respiratory: normal respiratory effort, lungs clear to auscultation Cardiovascular: Rate/Rhythm: + irregularly irregular S1 S2 Gastrointestinal (Abdomen): normal bowel sounds, soft, nontender, no hepatosplenomegaly Musculoskeletal: Clean dressing over left leg wound Neurologic: PERRL, EOMI, accommodation nl, no face palsy, no dysarthria Psychiatric: A+Ox3, euthymic affect Results & Data Results & Data Vital Signs (Past 12 Hours) Vital Signs Temp Pulse Pulse Resp BP Pulse Ox O2 Del Method 12/02/23 08:07 74 12/02/23 07:57 36.9 C 76 18 107/78 93 Room Air 12/02/23 07:42 Room Air 12/02/23 07:00 79 12/02/23 03:43 36.8 C 63 18 100/64 95 Room Air 12/01/23 23:31 36.9 C 65 16 97/56 L 94 Room Air 12/01/23 22:12 95 H Laboratory Results Abnormal lab results 12/02/23 Range/Units 07:07 Hgb 11.0 L (14.0-18.0) g/dl Hct 36.8 L (42.0-52.0) % MCV 78.3 L (80.0-100.0) fL MCH 23.4 L (25.0-34.0) pg MCHC 29.9 L (32.0-36.0) g/dL RDW Std Deviation 57.8 H (36.4-46.3) fL RDW Coeff of Alex 20.7 H (11.5-14.5) % Sodium 134 L (136-145) mmol/L Chloride 94 L (98-107) mmol/L Carbon Dioxide 35 H (21-32) mmol/L BUN/Creatinine Ratio 22.5 H (10-20) Glucose 110 H (70-99(Fasting)) mg/dl
[2023-12-02] MEDS ORDERED: Nursing to Pharmacy Communication SCH (17:30)
[2023-12-03] MEDS: SODIUM CHLORIDE 0.9% 1,000 ML IV SCH (07:15)
[2023-12-03 07:52] LABS: Magnesium 2.1 mg/dl (1.7-2.4)
--- NOTE | 2023-12-03 07:55 | Communication Note ---
Date of Service: December 03, 2023 Around 6:53am today code karolyn was called on Harrison Dietrich 58M . While he was on commode he had epigastric abdominal pain and chest pain. He was diaphoretic and pale. Code karolyn was called. His vitals stable. Ekg a fib in 100's.No acute St changes seen.When seen his chest pain was easing out. No radiation of pain.Was feeling nauseous. Legs seemed mottled which nursing staff says new..Transferred to tele. In Tele feeling better, vitals stable but still nauseous. Ordered troponin, lactic acid, kub, echo and cadio consult.Made him npo for now and started on gentle fluids. Notified Am providers.
[2023-12-03 07:59] LABS: Troponin I High Sensitivity 21.9 pg/ml (0-20)
--- NOTE | 2023-12-03 08:18 | Cardiology Progress Note ---
Date of Service December 03, 2023 Assessment & Plan (1) Chest pain at rest: (2) Elevated troponin I level: (3) Cellulitis of left lower extremity: (4) ASCVD (arteriosclerotic cardiovascular disease): (5) Chronic atrial fibrillation: (6) HTN (hypertension): (7) Dyslipidemia, goal LDL below 70: Plan IMPRESSION/PLAN: Complex 58 year old male admitted with left lower extremity cellulitis on November 26, 2023. Episode of severe abdominal/epigastric pain + nausea and lightheadedness this am while patient was having a bowel movement. Event this morning appears to be vasovagal in nature. Epigastric/substernal chest discomfort aggravated by eating. Examination with reproducible component. EKG without acute change. Known chronic AFIB. High sensitivity troponin chronically elevated and downtrending. Telemetry benign. Recent TTE with preserved LV systolic function, EF 50-55%. Repeat pending- will be reviewed in available. Mottling in legs have resolved; possibly due to hypoperfusion in the setting of hypotension/Raynaud's. Lactate elevated-- hospitalist team following; possibly due to recent infection. Repeat pending/ Recommend continuing the current cardiac medication regimen as prescribed. Case discussed with Dr. Allen. Cardiology will sign off; please contact with any questions or concerns. I spent a total of 40 minutes on the date of service in preparation, delivery, and documentation of the care provided to the patient excluding any time spent in the performance of separately billed services. PATRICK Doyle Department of Cardiology, [facility] This chart was completed in part utilizing Speech Voice Recognition Software. Grammatical errors, random word insertions, pronoun errors, and incomplete sentences are an occasional consequence of this system due to software limitations, ambient noise, and hardware issues. Any formal questions or concerns about the content, text, or information contained within the body of this dictation should be directly addressed to the provider for clarification. Admission and Anticipated Discharge Date Admission Date: November 27, 2023 Supervising Physician Co-Signing Physician Notes I have personally performed a history and physical examination on the patient. I have reviewed the advance practitioner's documentation, and I agree with, and take responsibility for the plan of care. 58-year-old male admitted secondary to left lower extremity cellulitis. Severe abdominal epigastric pain relieved by bowel movement this morning no ischemic ECG changes. Chronically elevated high-sensitivity troponin. Physical exam with reproducible abdominal discomfort. No evidence of acute coronary syndrome. Echocardiogram demonstrating preserved LV systolic function with LVEF 50-55%. And unchanged from prior studies telemetry demonstrates rate controlled atrial fibrillation. Assessment and plan as well outlined above. Cardiology will sign off. Please call with additional concerns/questions. I spent a total of 20 minutes on the date of service in preparation, delivery, and documentation of the care provided to this patient, excluding any time spent in the performance of separately billed services. Michael Allen MD Subjective Medically complex 58 year old male initially admitted 11/26/2023 due to LLE cellulitis. Known history of atypical chest discomfort. Cardiology reconsulted this am due to an episode of epigastric/abdominal discomfort while patient was having a bowel movement around 0645. Patient unable to give much detail to the event however nursing was able to assist. Patient took himself off monitor this morning to go to the bathroom. While sitting on the toilet patient developed severe epigastric/abdominal discomfort. He became "house" and diaphoretic as well as lightheaded. Patient states that he felt nauseated like he was going to vomit and/or pass out. Per nursing legs appeared mottled. Rapid response was called and patient was moved to the bed. Vital signs were stable. Patient did not require supplemental o2 therapy. Patient had a bowel movement and symptoms resolved slowly. Upon entrance into the room patient resting in bed. Notes resolution in his abdominal discomfort. Mild epigastric discomfort present with palpitation. No shortness of breath. Denies palpitations. No lightheadedness, dizziness, or nausea. No orthopnea or PND. No lower extremity edema. During event, tele was not available. However overall he has been in chronic AFIB 90-100s. Review of Systems Review of Systems: All systems reviewed & are unremarkable except as noted in HPI & below Physical Exam Physical Exam: General: A&Ox3. NAD. Laying supine HENT: Normocephalic. Atraumatic. Eyes: PER. Conjunctiva pink, sclera clear. Neck: No JVD. Heart: Irregularly irregular at 100 bpm. No murmur. No rub. Chest/Epigastic: + Mild tenderness to palpitation of the lower sternum and epigastic area Lungs: Diminished. Decreased. No wheeze. Abdomen: +BS. Soft. Nontender. No masses or organomegaly. Extremities: Dressing to the left lower extremity not removed. No edema. Limited neurological examination is without focal deficits. Pulses: Posterior tibial=0/4. Results & Data Vital Signs (Past 12 Hours) Vital Signs Temp Pulse Pulse Pulse Resp BP Pulse Ox 12/03/23 07:00 37.1 C 116 H 28 H 117/93 93 12/03/23 06:53 107 H 26 H 137/92 96 12/03/23 05:30 94 H 12/03/23 03:35 37 C 108 H 16 97/65 L 93 12/02/23 23:10 36.6 C 94 H 18 99/61 L 93 12/02/23 22:10 88 12/02/23 21:10 12/02/23 21:09 68 102/59 L O2 Del Method 12/03/23 07:00 Room Air 12/03/23 06:53 Room Air 12/03/23 05:30 12/03/23 03:35 Room Air 12/02/23 23:10 Room Air 12/02/23 22:10 12/02/23 21:10 Room Air 12/02/23 21:09 Laboratory Results Cardiac Enzymes 12/03/23 Range/Units 07:14 Troponin I High Sens 21.9 H (0-20) pg/ml Comprehensive Metabolic Panel 12/02/23 Range/Units 08:48 Potassium 3.6 (3.5-5.1) mmol/L Intake and Output 12/02/23 12/03/23 12/03/23 22:59 06:59 14:59 Intake Total 100 / 2300.000 1100 / 2300.000 Output Total 2049 Balance 100 / -1300.000 -950 / -1300.000 Intake: IV 100 / 300.000 100 / 300.000 Ampicillin/Sulbactam Sod 3,000 100 / 300.000 100 / 300.000 mg In Sodium Chlor 0.9% Mini-B 100 ml @ 200 mls/hr IV Q6H [facility] Rx#:[id number] Oral 999 / 1999 Output: Urine 2049 Other: Weight 91.8 kg Weight Measurement Method Standing Scale
--- NOTE | 2023-12-03 08:21 | XRay Report ---
KUB CLINICAL HISTORY: Nausea. Generalized abdominal pain. FINDINGS: 2 AP, portable, supine abdominal radiographs are correlated with abdominal CT dated 010. There is a nonobstructed abdominal bowel gas pattern. No evidence of intraperitoneal free air is seen on these supine images. There are no abnormal abdominal calcifications. The skeletal structures are osteopenic and appear intact. There is moderate to advanced lumbosacral spondylosis as well as s coliosis. IMPRESSION: No acute abnormality is identified. Electronically signed by: Alcon Roach M.D. 12/03/2023 8:19 AM
[2023-12-03 08:40] LABS: Hematocrit (blood only) 41.7 % (42.0-52.0); Hemoglobin 12.7 g/dl (14.0-18.0); Mean Corpuscular Hemoglobin 23.5 pg (25.0-34.0); Mean Corpuscular Hgb Conc 30.5 g/dL (32.0-36.0); Mean Corpuscular Volume 77.2 fL (80.0-100.0); Mean Platelet Volume 9.3 fL (9.4-12.4); Platelet Count 497 K/uL (130-400); RDW Coefficient of Variation 21.2 % (11.5-14.5); RDW Standard Deviation 57.6 fL (36.4-46.3); White Blood Count 8.49 K/ul (4.8-10.8)
[2023-12-03 10:03] LABS: Calcium 9.6 mg/dl (8.6-10.3); Creatinine Clr Calc Pharmacy 101.2 ml/min; Potassium 3.7 mmol/L (3.5-5.1)
[2023-12-03 10:10] LABS: Troponin I High Sensitivity 18.1 pg/ml (0-20)
--- NOTE | 2023-12-03 11:32 | Hospitalist Progress Note ---
Date of Service December 03, 2023 Assessment & Plan (1) Cellulitis of left lower extremity: (2) Atrial fibrillation with rapid ventricular response: (3) Elevated troponin: (4) Chronic combined systolic and diastolic CHF (congestive heart failure): (5) HFrEF (heart failure with reduced ejection fraction): (6) PAD (peripheral artery disease): (7) Rheumatoid arthritis: Plan 58-year-old male with past medical history significant for COPD, lung nodules, peripheral artery disease, chronic systolic CHF now recovered EF, history of SVT, small vessel disease, frequent PVCs, persistent atrial fibrillation, GERD, degenerative's disease, scoliosis, osteoporosis, rheumatoid arthritis involving multiple sites with positive rheumatoid factor, immunodeficiency due to drugs, moderate episode of recurrent depression, erectile dysfunction, tobacco use disorder, hepatitis C virus infection cured after antiviral drug therapy, long- term systemic steroid user Who reported to ED secondary to left lower extremity redness and pain for 2 days. Rapid response episode today likely vasovagal based on history Lactate at the time was initially 3.5 and repeat was 1.6 Stop IVF Reviewed TTE today. Similar to that of 09/2023 Trop is even better than previously EKG showed chronic Afib Chest pain is reproducible likely Musculoskeletal Monitor for now Cellulitis of left lower extremity Evidence of open blister that de roofed, unknown trauma ? dog/cat scratch (Has pets at home. He does not recall if he got scratched) No signs of sepsis Continue wound care for now Wound culture growing MSSA and pasteurella Currently on Unasyn, plan to switch to Augmentin on DC to complete treatment Elevated troponin Patient with chronic elevation in the past No chest pain on admission. Trop trended down Chest pain is reproducible. Likely MSK. Card eval noted Chronic systolic/diastolic CHF CAD PAD Follows [employer] cards, daily weights, strict intake and output Euvolemic on exam Had reduced EF which has recovered from recent two echocardiograms Echo September 2023: EF of 50 to 55%, moderate dilatation of left atrium. Continue lasix, aldactone, entresto, Jardiance, metoprolol, asa, statin Chronic atrial fibrillation Continue metoprolol and eliquis Rheumatoid arthritis Continue daily pred, also on Kevzara and sulfasalazine as outpt COPD No acute exac Smoking cessation counselling provided Hep C s/p treatment DVT ppx: Cody TIRADO working on placement Will monitor today in view of [employer]ODU[employer] SUPERVISOR earlier this morning Plan to dc tomorrow if placement found FULL CODE PCP: Renuka Jarrett spent a total of 50 minutes coordinating, documenting and providing care for this patient excluding time spent in performance of separately billed services Admission and Anticipated Discharge Date Admission Date: November 27, 2023 Subjective Had a rapid response earlier this AM Per Senior Category Manager, he developed chest and abdominal pain while moving his bowels. Was noted to be diaphoretic, pale with mottling of lower extremities Patient was transferred to PCU. Patient seen and examined this morning. Patient reports that he felt lightheaded during the episode but did not pass out. Reported chest pain is similar to his chronic intermittent chest pain. Reported that he had abdominal cramping at the time which had resolved and he feels better after moving his bowels. Denies any other new complaints at this time. Leg wound is healing and pain is minimal at this time Physical Exam Constitutional: + well hydrated; no acute distress Eyes: PERRL, conjunctivae normal, anicteric sclerae ENMT: external ear and nose normal, oropharynx normal Respiratory: normal respiratory effort, lungs clear to auscultation Cardiovascular: Rate/Rhythm: + irregularly irregular S1 S2 Gastrointestinal (Abdomen): normal bowel sounds, soft, nontender, no hepatosplenomegaly Musculoskeletal: Dressing over left leg wound Neurologic: PERRL, EOMI, accommodation nl, no face palsy, no dysarthria Psychiatric: A+Ox3, euthymic affect Results & Data Results & Data Vital Signs (Past 12 Hours) Vital Signs Temp Pulse Pulse Pulse Resp BP BP 12/03/23 10:06 91 H 23 124/94 12/03/23 09:25 99 H 12/03/23 09:09 12/03/23 09:00 105/70 12/03/23 08:57 89 22 12/03/23 08:46 109/68 12/03/23 08:42 102 H 20 12/03/23 08:36 99 H 26 H 12/03/23 08:00 100 H 25 H 12/03/23 08:00 88/66 L 12/03/23 07:30 95 H 12/03/23 07:30 116 H 29 H 12/03/23 07:23 90/66 L 12/03/23 07:15 102 H 22 12/03/23 07:03 109 H 17 12/03/23 07:02 117/93 12/03/23 07:00 37.1 C 116 H 28 H 117/93 12/03/23 06:53 107 H 26 H 137/92 12/03/23 05:30 94 H 12/03/23 03:35 37 C 108 H 16 97/65 L Pulse Ox O2 Del Method 12/03/23 10:06 95 Room Air 12/03/23 09:25 12/03/23 09:09 91 12/03/23 09:00 12/03/23 08:57 93 12/03/23 08:46 12/03/23 08:42 92 12/03/23 08:36 90 12/03/23 08:00 92 12/03/23 08:00 12/03/23 07:30 12/03/23 07:30 92 12/03/23 07:23 12/03/23 07:15 89 L 12/03/23 07:03 12/03/23 07:02 12/03/23 07:00 93 Room Air 12/03/23 06:53 96 Room Air 12/03/23 05:30 12/03/23 03:35 93 Room Air Laboratory Results Abnormal lab results 12/03/23 12/03/23 12/03/23 Range/Units 06:41 07:14 07:21 Hgb 12.7 L (14.0-18.0) g/dl Hct 41.7 L (42.0-52.0) % MCV 77.2 L (80.0-100.0) fL MCH 23.5 L (25.0-34.0) pg MCHC 30.5 L (32.0-36.0) g/dL RDW Std Deviation 57.6 H (36.4-46.3) fL RDW Coeff of Alex 21.2 H (11.5-14.5) % Plt Count 497 H (130-400) K/uL MPV 9.3 L (9.4-12.4) fL Sodium (136-145) mmol/L Chloride (98-107) mmol/L BUN/Creatinine Ratio (10-20) POC Glucose 128 H (70-99) mg/dl Lactate 3.5 H* (0.4-2.0) mmol/L Troponin I High Sens 21.9 H (0-20) pg/ml 12/03/23 Range/Units 09:23 Hgb (14.0-18.0) g/dl Hct (42.0-52.0) % MCV (80.0-100.0) fL MCH (25.0-34.0) pg MCHC (32.0-36.0) g/dL RDW Std Deviation (36.4-46.3) fL RDW Coeff of Alex (11.5-14.5) % Plt Count (130-400) K/uL MPV (9.4-12.4) fL Sodium 133 L (136-145) mmol/L Chloride 97 L (98-107) mmol/L BUN/Creatinine Ratio 25.0 H (10-20) POC Glucose (70-99) mg/dl Lactate (0.4-2.0) mmol/L Troponin I High Sens (0-20) pg/ml
--- NOTE | 2023-12-03 16:02 | Electrocardiogram Report ---
Test Reason : Blood Pressure : / mmHG Vent. Rate : 109 BPM Atrial Rate : 133 BPM P-R Int : 000 ms QRS Dur : 088 ms QT Int : 346 ms P-R-T Axes : 000 107 075 degrees QTc Int : 465 ms Atrial fibrillation with rapid ventricular response Rightward axis Low voltage QRS Abnormal ECG When compared with ECG of 28-NOV-2023 14:26, Nonspecific T wave abnormality no longer evident in Inferior leads Confirmed by Johnathon Craft ([id number]) on 12/03/2023 4:01:57 PM Referred By: REFERRED SELF Confirmed By:Chip Craft
[2023-12-04] MEDS: SODIUM CHLORIDE 0.9% 500 ML IV SCH (06:45)
[2023-12-04 07:20] LABS: Basophils # (auto) 0.03 K/uL (0.00-0.20); Basophils % (auto) 0.3 %; Eosinophils # (auto) 0.43 K/uL (0.00-0.50); Eosinophils % (auto) 4.7 %; Hematocrit (blood only) 41.3 % (42.0-52.0); Hemoglobin 12.5 g/dl (14.0-18.0); Immature Granulocytes # (auto) 0.03 K/uL (0.01-0.20); Immature Granulocytes % (auto) 0.3 %; Mean Corpuscular Hemoglobin 23.4 pg (25.0-34.0); Mean Corpuscular Hgb Conc 30.3 g/dL (32.0-36.0); Mean Corpuscular Volume 77.3 fL (80.0-100.0); Mean Platelet Volume 9.6 fL (9.4-12.4); Monocytes # (auto) 0.36 K/uL (0.11-0.59); Monocytes % (auto) 3.9 %; Neutrophils # (auto) 7.16 K/uL (1.40-6.50); Neutrophils % (auto) 77.8 %; Platelet Count 440 K/uL (130-400); RDW Coefficient of Variation 21.1 % (11.5-14.5); RDW Standard Deviation 57.1 fL (36.4-46.3); Red Blood Count 5.34 M/uL (4.70-6.10); White Blood Count 9.21 K/ul (4.8-10.8)
[2023-12-04 07:31] LABS: BUN Creatinine Ratio 24.2 (10-20); Calcium 9.2 mg/dl (8.6-10.3); Creatinine Clr Calc Pharmacy 98.4 ml/min; Est GFR (African American) 106.5 ml/min; Est GFR (Non-African American) 91.9 ml/min; Magnesium 2.1 mg/dl (1.7-2.4); Potassium 3.7 mmol/L (3.5-5.1)
[2023-12-04 07:40] LABS: Anisocytosis Present; Polychromasia 1+
--- NOTE | 2023-12-04 10:56 | Hospitalist Progress Note ---
Date of Service December 04, 2023 Assessment & Plan (1) Cellulitis of left lower extremity: (2) Atrial fibrillation with rapid ventricular response: (3) Elevated troponin: (4) Chronic combined systolic and diastolic CHF (congestive heart failure): (5) HFrEF (heart failure with reduced ejection fraction): (6) PAD (peripheral artery disease): (7) Rheumatoid arthritis: Plan 58-year-old male with past medical history significant for COPD, lung nodules, peripheral artery disease, chronic systolic CHF now recovered EF, history of SVT, small vessel disease, frequent PVCs, persistent atrial fibrillation, GERD, degenerative's disease, scoliosis, osteoporosis, rheumatoid arthritis involving multiple sites with positive rheumatoid factor, immunodeficiency due to drugs, moderate episode of recurrent depression, erectile dysfunction, tobacco use disorder, hepatitis C virus infection cured after antiviral drug therapy, long- term systemic steroid user Who reported to ED secondary to left lower extremity redness and pain for 2 days. Cellulitis of left lower extremity Evidence of open blister that de roofed, unknown trauma ? dog/cat scratch (Has pets at home. He does not recall if he got scratched) No signs of sepsis Continue wound care for now Wound culture growing MSSA and pasteurella Will complete 7days of antibiotics today Elevated troponin Patient with chronic elevation in the past No chest pain on admission. Trop trended down Chest pain is reproducible. Likely MSK. WILLOW MACHINE OPERATOR on 12/03/23 is vasovagal Lactate at the time was initially 3.5 and repeat was 1.6 TTE was similar to that of 09/2023 Trop is even better than previously EKG showed chronic Afib Card eval noted Chronic systolic/diastolic CHF CAD PAD Follows [employer] cards, daily weights, strict intake and output Euvolemic on exam Had reduced EF which has recovered from recent two echocardiograms Echo September 2023: EF of 50 to 55%, moderate dilatation of left atrium. Continue lasix, aldactone, entresto, Jardiance, metoprolol, asa, statin Chronic atrial fibrillation Continue metoprolol succinate and eliquis HR running 100-120s today. Did not get his PM metoprolol succinate last night Asymptomatic. May give lopressor IV PRN if needed Rheumatoid arthritis Continue daily pred, also on Kevzara and sulfasalazine as outpt COPD No acute exac Smoking cessation counselling provided Hep C s/p treatment DVT ppx: Cody TIRADO working on placement FULL CODE PCP: Renuka Jarrett spent a total of 40 minutes coordinating, documenting and providing care for this patient excluding time spent in performance of separately billed services Admission and Anticipated Discharge Date Admission Date: November 27, 2023 Subjective Patient seen and examined No new complaint at this time Physical Exam Constitutional: + well hydrated; no acute distress Eyes: PERRL, conjunctivae normal, anicteric sclerae ENMT: external ear and nose normal, oropharynx normal Respiratory: normal respiratory effort, lungs clear to auscultation Cardiovascular: Rate/Rhythm: + irregularly irregular Gastrointestinal (Abdomen): normal bowel sounds, soft, nontender, no hepatosplenomegaly Musculoskeletal: Left leg wound Neurologic: PERRL, EOMI, accommodation nl, no face palsy, no dysarthria Psychiatric: A+Ox3, euthymic affect Results & Data Results & Data Vital Signs (Past 12 Hours) Vital Signs Temp Pulse Pulse Resp BP Pulse Ox O2 Del Method 12/04/23 08:48 130 H 109/83 12/04/23 08:00 127 H 12/04/23 07:30 36.9 C 93 Room Air 12/04/23 06:28 130 H 12/04/23 03:43 37.0 C 103 H 17 94/74 L 98 Room Air 12/03/23 23:35 90 12/03/23 23:11 36.7 C 93 H 17 100/71 94 Room Air Laboratory Results Abnormal lab results 12/04/23 Range/Units 07:01 Hgb 12.5 L (14.0-18.0) g/dl Hct 41.3 L (42.0-52.0) % MCV 77.3 L (80.0-100.0) fL MCH 23.4 L (25.0-34.0) pg MCHC 30.3 L (32.0-36.0) g/dL RDW Std Deviation 57.1 H (36.4-46.3) fL RDW Coeff of Alex 21.1 H (11.5-14.5) % Plt Count 440 H (130-400) K/uL Neut # (Auto) 7.16 H (1.40-6.50) K/uL Sodium 133 L (136-145) mmol/L Chloride 97 L (98-107) mmol/L BUN/Creatinine Ratio 24.2 H (10-20) Glucose 114 H (70-99(Fasting)) mg/dl
[2023-12-04] MEDS: METOPROLOL TARTRATE 1 MG/ML VIAL IV STA (12:24)
[2023-12-04] MEDS: METOPROLOL TARTRATE 1 MG/ML VIAL IV PRN (14:17)
--- NOTE | 2023-12-04 14:39 | Discharge Summary ---
Date of Service December 04, 2023 Admission HPI Per Admitting Provider 58-year-old male with past medical history significant for COPD, lung nodules, peripheral artery disease, chronic systolic CHF, history of SVT, small vessel disease, frequent PVCs, persistent atrial fibrillation, GERD, degenerative's disease, scoliosis, osteoporosis, rheumatoid arthritis involving multiple sites with positive rheumatoid factor, immunodeficiency due to drugs, moderate episode of recurrent depression, erectile dysfunction, tobacco use disorder, hepatitis C virus infection cured after antiviral drug therapy, long-term systemic steroid user Who reports to ED secondary to left lower extremity redness and pain for 2 days. He reports pain and redness to his L leg. This started 1.5 days ago. He denies any trauma or fall. He states he has dogs at home that sometimes, "paw," at him, but he doesn't recall and steven scratches. He also has cats. He denies any known fever, chills or sweats. He feels the redness and pain has been getting worse over the last 2 days. He rates pain a 4/10. He has felt nauseated but no vomiting. He has been able to eat and drink. He does report some increased shortness of breath at rest and with exertion that is not normal for him. He denies any chest pain, cough, URI symptoms, palpitations, abdominal pain, change in his bowel or urinary habits. He states he did not take any medications today. He started smoking again 2 weeks due to his, "nerves." Of significance patient was recently hospitalized on 10/23 to 11/02/2023 secondary to bacteremia. On initial presentation with a 4 blood cultures came back positive for GPC in chains and repeat blood cultures came back 1 and 4 positive for CONS, likely contaminant. He was seen and evaluated by infectious disease. Source was unclear. He completed 1 week of ceftriaxone inpatient and had no fever or leukocytosis post antibiotic. Initial culture was sent to lab as they could not identify it and later speciated to Moraxella. Infectious disease recommended no further antibiotics. His hospital course was complicated with a fibrillation with RVR as well as acute on chronic systolic and diastolic CHF. Cardiology was consulted who assisted with medication management and at discharge his metoprolol succinate was increased to 150 twice daily and home Entresto reduced to half a tablet twice daily due to hypotension. He was then [facility] where he completed a course of rehab and was discharged home. His outpatient records were reviewed and he has not seen a primary care provider since discharge. In ED patient was hemodynamically stable. He was in atrial fibrillation his heart rates were in the low 100s. ED provider concern for left lower extremity cellulitis and therefore treated with IV Zosyn. He did have initial elevation in troponin 88 but this stayed relatively flat after 2 hours. Admission Exam Per Admitting Provider General: Lying comfortably in bed, not in distress, on room air HEENT: EOMI, FLORENCIA, MMM Chest: Clear breath sounds bilaterally, no wheezes or crackles CVS: Irregular rate and rhythm, normal heart sounds, no murmur Abdomen: Soft, non tender, not distended, normal bowel sounds Neuro: Awake, alert, oriented, conversing well, non focal Skin: Left leg wound with dried blood with surrounding erythema and tenderness, no fluctuance, no active discharge during my encounter. Bilateral legs with petechiae. Principal Diagnosis Left leg wound and cellulitis Chronic atrial fibrillation Discharge Exam Constitutional + well hydrated; no acute distress Eyes PERRL, conjunctivae normal, anicteric sclerae ENMT external ear and nose normal, oropharynx normal Respiratory normal respiratory effort, lungs clear to auscultation Cardiovascular Rate/Rhythm: + irregularly irregular Gastrointestinal (Abdomen) normal bowel sounds, soft, nontender, no hepatosplenomegaly Musculoskeletal Left leg wound Neurologic PERRL, EOMI, accommodation nl, no face palsy, no dysarthria Psychiatric A+Ox3, euthymic affect Discharge Data Allergies Allergy/AdvReac Type Severity Reaction Status Date / Time No Known Allergies Allergy Verified 10/24/23 16:32 Consultations 11/26/23 17:55 ED Decision to Admit Stat 11/28/23 10:26 Consult Cardiology Routine 12/03/23 07:01 Consult Cardiology Routine Ordered Studies 11/27/23 US venous doppler LE Stat Hospital Course (1) Cellulitis of left lower extremity: (2) Atrial fibrillation with rapid ventricular response: (3) Elevated troponin: (4) Chronic combined systolic and diastolic CHF (congestive heart failure): (5) HFrEF (heart failure with reduced ejection fraction): (6) PAD (peripheral artery disease): (7) Rheumatoid arthritis: Plan 58-year-old male with past medical history significant for COPD, lung nodules, peripheral artery disease, chronic systolic CHF now recovered EF, history of SVT, small vessel disease, frequent PVCs, persistent atrial fibrillation, GERD, degenerative's disease, scoliosis, osteoporosis, rheumatoid arthritis involving multiple sites with positive rheumatoid factor, immunodeficiency due to drugs, moderate episode of recurrent depression, erectile dysfunction, tobacco use disorder, hepatitis C virus infection cured after antiviral drug therapy, long- term systemic steroid user Who reported to ED secondary to left lower extremity redness and pain for 2 days. Cellulitis of left lower extremity Evidence of open blister that de roofed, unknown trauma ? dog/cat scratch (Has pets at home. He does not recall if he got scratched) No signs of sepsis Wound culture growing MSSA and pasteurella Completed 7 days of antibiotic inpatient Continue wound care and dressing Elevated troponin Patient with chronic elevation in the past No chest pain on admission. Trop trended down Chest pain is reproducible. Likely MSK. Echo from September 2023: EF of 50 to 55%, moderate dilatation of left atrium. While inpatient, he had a rapid response on 12/03/23 when he reported epigastric pain and dizziness while moving his bowel. He was noted to be diaphoretic. Lactate at the time was initially 3.5 and repeat was 1.6 TTE done afterwards was similar to that of September 2023 Trop was even better than previously EKG showed chronic Afib Card evaluated while inpatient Rapid response episode likely vasovagal Chronic systolic/diastolic CHF CAD PAD Follows [facility] cards, daily weights, strict intake and output Euvolemic on exam Had reduced EF which has recovered from recent two echocardiograms Continue lasix, aldactone, entresto, Jardiance, metoprolol succinate, asa, statin Chronic atrial fibrillation Continue metoprolol succinate and eliquis Rheumatoid arthritis Continue daily pred, also on Kevzara and sulfasalazine as outpt COPD No acute exac Smoking cessation counselling provided Hep C s/p treatment Total Time Total Time Spent Total Time Spent (In Minutes): 40 Total Time Includes: Examination of the Patient, Discharge Planning and Medication Reconciliation Discharge Plan Discharge Items Patient Disposition: Transfer [facility] Reason For Visit: LLE CELLULITIS Discharge Diagnosis: Left leg wound and cellulitis Activity: Resume your previous activity Non-emergency contact: Primary Care Provider Call non-emergency contact if: you have any medication questions Follow-up/Referrals: Anahy Grayson MD [Primary Care Provider] - Diet: Heart Healthy Addtl Attending Provider Instructions: Mr Morgan You came to the hospital due to left leg wound. You were treated with IV antibiotics You are being discharged to nursing home facility Please ensure follow up with your Primary Doctor and Wound care clinic Continue wound dressing as we discussed. 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 Instructions: Wound dressing instruction: Clean with saline and pat dry Apply kaltostat and wrap with kerlix daily and as needed if increased drainage Pending Studies at Discharge: No Stand-Alone Forms: My [facility] [employer], Smoking Cessation Skilled Items Patient informed of condition?: Yes DNR: No Discharge Level of Care: Skilled Communicable Disease: No Discharge Prognosis: Stable Lines: None Urinary Catheter: No Medications and DC Order Prescriptions: Continued nitroglycerin 0.4 mg tablet, sublingual 0.4 mg sublingual .PRN/UD PRN (Reason: Chest Pain) Rx Instructions: NEEDED FOR CHEST PAIN : ONE TABLET UNDER THE TONGUE EVERY 5 MINUTES UP TO THREE DOSES. Kevzara 200 mg/1.14 mL pen injector 200 mg SUBCUT .[id number] furosemide 40 mg tablet 40 mg PO BID Qty: 60 0RF sulfasalazine 500 mg tablet 1,000 mg PO BID Qty: 120 0RF ondansetron HCl 4 mg tablet 4 mg PO Q8H PRN (Reason: Nausea) Qty: 10 0RF alendronate 70 mg tablet 70 mg PO WK Qty: 4 0RF Rx Instructions: TAKE THIS MED EVERY sunday omeprazole 40 mg capsule,delayed release(DR/EC) 40 mg PO DAILYBB Qty: 30 0RF aspirin [Bob Low Dose Aspirin] 81 mg Tablet,Delayed Release (Dr/Ec) 81 mg PO QAM Qty: 30 0RF magnesium oxide 400 mg (241.3 mg magnesium) Tablet 400 mg PO BID 15 Days Qty: 60 0RF oxycodone-acetaminophen 10-325 mg tablet 1 tab PO Q6H PRN (Reason: Pain) Qty: 10 0RF digoxin 125 mcg (0.125 mg) tablet 0.125 mcg PO QAM Qty: 30 0RF cholecalciferol (vitamin D3) [Vitamin D3] 10 mcg (400 unit) Capsule 10 mcg PO QAM Qty: 30 0RF escitalopram oxalate 10 mg tablet 10 mg PO QAM Qty: 30 0RF rosuvastatin 5 mg tablet 5 mg PO QAM Qty: 30 0RF duloxetine 30 mg capsule,delayed release(DR/EC) 30 mg PO QAM Qty: 30 0RF Centrum Silver Men 274-29-508-300 mcg Tablet 1 tab PO QAM Qty: 30 0RF Spiriva Respimat 2.5 mcg/actuation mist 2 inh INHALATION QAM Qty: 4 0RF Eliquis 5 mg tablet 5 mg PO BID Qty: 60 0RF Jardiance 10 mg tablet 10 mg PO QAM Qty: 30 0RF Changed metoprolol succinate 100 mg tablet extended release 24 hr 150 mg PO AMHS Qty: 90 0RF Rx Instructions: 1 & 1/2 tablet dose prednisone 5 mg tablet 5 - 10 mg PO DAILY Qty: 30 0RF spironolactone 25 mg tablet 12.5 mg PO QAM Qty: 15 0RF Entresto 24-26 mg tablet 0.5 tab PO AMHS Qty: 30 0RF Discharge Orders: Discharge Order (Routine); Ordered 12/04/23 Ordered By: Saniya Sanon Admission Data Admit Date/Time: 11/27/23 10:20 Attending Provider: Saniya Sanon I. Admit Provider: Chapo Abarca Primary Care Provider: Anahy Grayson Other Providers: Pelon Hoyos; [facility]; [place]; Chapo Abarca; Michael Allen; [facility]
== END 2023-12-04 16:56 | DRG 603 ==
LOC: 2W 14:17 → ED 14:17 → SUATTDRO 18:01 → 2W 20:00 → SUATTDRO 11-27 10:20 → 1E 12-03 07:23

== ENCOUNTER 2024-12-25 13:37 | Inpatient (IN) ==
--- NOTE | 2024-12-25 14:16 | XRay Report ---
XR chest 1V portable CLINICAL HISTORY: Chest pain, nonspecific COMPARISON STUDY: 11/26/2023 FINDINGS: There is moderate cardiomegaly with increased pulmonary vascular congestion. There is incre ased pulmonary interstitial prominence. There is an interval small area of patchy opacity lateral rig ht mid and lower lung. No pleural effusion or pneumothorax. IMPRESSION: 1. CHF. 2. Possible early pneumonia on the right. ACT 112: Negative or not required by law. Electronically signed by: Alberto Joseph M.D. 12/25/2024 2:15 PM
--- NOTE | 2024-12-25 14:25 | Emergency Department Note ---
Impression & Plan Osteomyelitis of great toe of left foot, Atrial fibrillation with rapid ventricular response, PAD (peripheral artery disease) ED Provider Note NAME: STEVAN GOFF Sr AGE: 59 SEX: M : 1965 ARRIVES VIA: Ambulance INFORMANT: Patient ED PROVIDER(S): Wilmar Carlton MD CHIEF COMPLAINT: Chest pain, shortness of breath, COPD, left toe pain/necrosis PLAN: Disposition: Admit MEDICAL DECISION MAKING: The patient is a pleasant 59-year-old gentleman with a past medical history of rheumatoid arthritis, chronic steroid use, GERD, PAD, atrial fibrillation who presents to the emergency department via EMS for evaluation of sudden onset shortness of breath this evening with associated chest tightness and worsening left great toe pain and necrosis which she reports has been ongoing for over a month. Patient is on home oxygen. Patient was given DuoNeb en route by EMS and he reported resolution of shortness of breath. Patient reports that he had seen his primary care provider for this and was referred to a catering director which is scheduled for next week. However he was having worsening pain and presents to have it treated sooner if possible. Patient reports that he thinks that he should be amputated as his right great toe had been previously. He has any fevers, chills, cough, congestion, GI or symptoms. Patient reports that he has been off of all his medications including his Eliquis and metoprolol for over a month in the setting of having a gap in insurance which recently was reinstated and understands prescriptions are now at his pharmacy. On my evaluation the patient is in no distress, afebrile with heart in the 120s in atrial fibrillation and vital signs otherwise stable. He appears euvolemic. Lungs with intermittent wheeze and are otherwise clear with normal respiratory effort. Distal aspect of the left great toe demonstrates necrosis of the distal phalanx. There is no proximal erythema warmth or tenderness. There is no crepitus. Full range of motion is intact. Patient has palpable pedal pulses bilaterally. Capillary refill is normal. EKG is atrial fibrillation with RVR without overt acute ischemia. CXR demonstrates venous congestion without overt pulmonary edema. Question of small lower lung opacity. X-ray of the left foot demonstrates suspected early osteomyelitis distally at the first distal phalanx with possible superimposed nondisplaced fracture. WBC within normal limits with neutrophilia but no left shift. Platelets within normal limits. H/H similar to prior. Chemistry without metabolic acidosis. Electrolytes and LFTs unremarkable. Initial high styptic troponin 20.0, within normal limits. Lipase is normal. Procalcitonin is not elevated. TSH within normal limits. ESR and CRP are 45 and 5.2, respectively. UA without evidence of infection. For completeness medical alcohol obtained and is undetectable. Patient agreed with plan for admission for further management. Empiric treatment initiated with IV Zosyn and vancomycin. Atrial fibrillation with RVR was treated with 5 mg of IV Lopressor with subsequent improved rate control. Case was discussed with Gena NGUYEN with Dr. Aide Fields hospitalist, who will evaluate the patient for admission. Further management per admitting team. Triage Nursing notes reviewed and agree them. Prior/external medical records reviewed Vital Signs: reviewed Differential diagnosis: Reactive airway disease, pneumonia, pneumothorax, COPD, CHF, infections, cardiac ischemia, pulmonary embolism, musculoskeletal, gastrointestinal, as well as other pathologies. ER treatment provided: See below. Diagnostics interpreted by me: ECG: Atrial fibrillation with RVR, 134 bpm, nonspecific T wave abnormality, no overt ST elevation or depression, QTc 433, QRS 98. Cardiac Monitoring: An order for continuous cardiac monitoring was placed and demonstrated atrial fibrillation with RVR, 134 bpm, no ectopy. Laboratory studies: See below Imaging studies: See below Consultation(s): Case was discussed with Gena NGUYEN with Dr. Aide Fields [facility], who will evaluate the patient for admission. HPI: Per MDM. ROS: See above HPI for pertinent positives & negatives. A total of 10 systems reviewed and were otherwise negative. VITALS:See Below PHYSICAL EXAMINATION: GENERAL: Awake, alert, in no distress HENT: Normocephalic, atraumatic. Oropharynx unremarkable. EYES: Normal conjunctiva. Sclera non-icteric. NECK: Supple. No nuchal rigidity. FROM. No JVD. RESPIRATORY: Intermittent wheeze and are otherwise clear with normal respiratory effort. CARDIAC: Tachycardic rate, irregular rhythm. Extremities warm and well perfused. Pulses equal. ABDOMEN: Soft, non-distended. No tenderness to palpation. No rebound or guarding. No masses. MUSCULOSKELETAL: Chest examination reveals no tenderness. The back is symmetrical on inspection without obvious abnormality. There is no CVA tenderness to palpation. No joint edema. LOWER EXTREMITIES: Calves are equal size bilaterally and non-tender. No edema. No discoloration. Distal aspect of the left great toe demonstrates necrosis of the distal phalanx. There is no proximal erythema warmth or tenderness. There is no crepitus. Full range of motion is intact. Patient has palpable pedal pulses bilaterally. Capillary refill is normal.= NEURO: Normal sensorium. No sensory or motor deficits noted. SKIN: No rash or jaundice noted. Wilmar Carlton MD Past Med/Surg History Problem List (Updated 12/25/24 @ 17:14 by PATRICK Phoenix) Cellulitis of left foot Mood disorder Osteomyelitis of great toe of left foot (Acute) Chest pain at rest Atrial fibrillation with rapid ventricular response (Acute) Depressive disorder Raynauds disease PAD (peripheral artery disease) (Acute) HTN (hypertension) Hepatitis C Chronic steroid use (Chronic) Rheumatoid arthritis (Chronic) GERD (gastroesophageal reflux disease) Osteoarthritis of right knee (Chronic) Status post right knee replacement (Acute) Medical History (Updated 12/26/24 @ 18:26 by Wilmar Carlton MD) Heart failure with improved ejection fraction (HFimpEF) Medical non-compliance COPD (chronic obstructive pulmonary disease) History of osteomyelitis ASCVD (arteriosclerotic cardiovascular disease) Chronic atrial fibrillation Dyslipidemia, goal LDL below 70 Erectile dysfunction Tobacco use disorder Surgical History (Updated 12/25/24 @ 17:14 by PATRICK Phoenix) History of cardiac cath History of colonoscopy Hx of tonsillectomy Family History Other Heart disease Hypertension Social History Smoking Status: Current every day smoker Tobacco Type: Cigarettes Cigarettes Per Day: 1; Second Hand Exposure: Yes; Do You Dip or Chew Tobacco: No; Hx Alcohol Use: No Hx Substance Use: No Preferred Language: Montserratian Communication Ability: Effective Director Communications Required: No Beliefs That Will Affect Care: None Current Living Situation: Family Current Living Situation Comment: Lives at home with girlfriend Hayley, & their child Danica Feels Safe at Home: Yes Assistive Devices: Cane Allergies Allergies Allergy/AdvReac Type Severity Reaction Status Date / Time No Known Allergies Allergy Verified 10/24/23 16:32 Home Meds Home Medications Medication Instructions Recorded Confirmed nitroglycerin 0.4 mg sublingual 0.4 mg sublingual UD PRN Chest Pain 08/27/21 12/25/24 tablet aspirin 81 mg tablet 81 mg PO DAILY 12/25/24 12/25/24 atorvastatin 10 mg tablet 10 mg PO DAILY 12/25/24 12/25/24 divalproex 250 mg tablet,extended 250 mg PO DAILY 12/25/24 12/25/24 release 24 hr empagliflozin 25 mg tablet 25 mg PO QAM 12/25/24 12/25/24 (Jardiance) fluticasone fur. 100 mcg-umeclid 1 ea inhalation QAM 12/25/24 12/25/24 62.5 mcg-vilant 25 mcg inhalat.powder (Trelegy Ellipta) furosemide 20 mg tablet 40 mg PO DAILY 12/25/24 12/25/24 leflunomide 10 mg tablet 10 mg PO DAILY 12/25/24 12/25/24 magnesium oxide 400 mg (241.3 mg 400 mg PO QAM 12/25/24 12/25/24 magnesium) tablet oxycodone-acetaminophen 10 mg-325 1 tab PO BID PRN Pain,severe 12/25/24 12/25/24 mg tablet prednisone 5 mg tablet 10 mg PO DAILY RHEUMATOID ARTHRITIS 12/25/24 12/25/24 sacubitril 24 mg-valsartan 26 mg 1 tab PO AMHS 12/25/24 12/25/24 tablet (Entresto) sildenafil (pulm.hypertension) 20 20 mg PO TID 12/25/24 12/25/24 mg tablet Previous Rx's Medication Instructions Recorded alendronate 70 mg tablet 70 mg PO WK #4 tabs 12/04/23 apixaban 5 mg tablet (Eliquis) 5 mg PO BID #60 tabs 12/04/23 cholecalciferol (vitamin D3) 10 10 mcg PO QAM #30 caps 12/04/23 mcg (400 unit) capsule (Vitamin D3) digoxin 125 mcg (0.125 mg) tablet 0.125 mcg (0.001 x 125 mcg (0.125 12/04/23 mg)) PO QAM #30 tabs duloxetine 30 mg capsule,delayed 30 mg PO QAM #30 caps 12/04/23 release metoprolol succinate 100 mg 150 mg (1.5 x 100 mg) PO AMHS #90 12/04/23 tablet,extended release 24 hr tabs omeprazole 40 mg capsule,delayed 40 mg PO DAILYBB #30 caps 12/04/23 release ondansetron HCl 4 mg tablet 4 mg PO Q8H PRN Nausea #10 tabs 12/04/23 spironolactone 25 mg tablet 12.5 mg (1/2 x 25 mg) PO QAM #15 12/04/23 tabs sulfasalazine 500 mg tablet 1,000 mg (2 x 500 mg) PO BID #120 12/04/23 tabs Results & Data (ED) Vital Signs Vital Signs - 24 hr 12/25/24 13:46 12/25/24 13:46 12/25/24 13:46 Temperature 37 C Temperature Source Oral Pulse Rate 122 H Pulse Rate from SpO2 Sensor Pulse Rhythm Irregular Respiratory Rate 18 Respiratory Effort / Characteristics Non-Labored Spontaneous Non-Labored Spontaneous Respiratory Depth Normal Blood Pressure 123/91 Blood Pressure Mean 101 Pulse Oximetry 96 96 Oxygen Delivery Method Room Air Room Air Oxygen Flow Rate 0 Sepsis Recent Fever Within 48 Hours No Sepsis New/Unexplained Change in Mental Status N/A Sepsis Action Taken by Nursing No Action Required 12/25/24 13:46 12/25/24 13:46 12/25/24 14:14 Temperature Temperature Source Pulse Rate Pulse Rate from SpO2 Sensor Pulse Rhythm Respiratory Rate Respiratory Effort / Characteristics Non-Labored Spontaneous Respiratory Depth Normal Blood Pressure 138/95 Blood Pressure Mean 114 Pulse Oximetry Oxygen Delivery Method Room Air Oxygen Flow Rate Sepsis Recent Fever Within 48 Hours Sepsis New/Unexplained Change in Mental Status Sepsis Action Taken by Nursing 12/25/24 14:14 12/25/24 14:21 12/25/24 14:27 Temperature Temperature Source Pulse Rate 98 H 113 H Pulse Rate from SpO2 Sensor 117 H Pulse Rhythm Respiratory Rate Respiratory Effort / Characteristics Respiratory Depth Blood Pressure 138/95 Blood Pressure Mean 114 Pulse Oximetry 94 Oxygen Delivery Method Oxygen Flow Rate Sepsis Recent Fever Within 48 Hours Sepsis New/Unexplained Change in Mental Status Sepsis Action Taken by Nursing 12/25/24 14:31 12/25/24 14:31 12/25/24 14:42 Temperature Temperature Source Pulse Rate 103 H Pulse Rate from SpO2 Sensor 116 H Pulse Rhythm Respiratory Rate 24 Respiratory Effort / Characteristics Respiratory Depth Blood Pressure 138/101 H 138/101 H Blood Pressure Mean 119 119 Pulse Oximetry 95 Oxygen Delivery Method Oxygen Flow Rate Sepsis Recent Fever Within 48 Hours Sepsis New/Unexplained Change in Mental Status Sepsis Action Taken by Nursing 12/25/24 14:48 12/25/24 15:00 12/25/24 15:00 Temperature Temperature Source Pulse Rate 106 H Pulse Rate from SpO2 Sensor 98 H Pulse Rhythm Respiratory Rate 16 Respiratory Effort / Characteristics Respiratory Depth Blood Pressure 119/81 119/81 Blood Pressure Mean 94 94 Pulse Oximetry 95 Oxygen Delivery Method Oxygen Flow Rate Sepsis Recent Fever Within 48 Hours Sepsis New/Unexplained Change in Mental Status Sepsis Action Taken by Nursing 12/25/24 15:00 12/25/24 15:03 12/25/24 15:12 Temperature Temperature Source Pulse Rate 90 87 90 Pulse Rate from SpO2 Sensor 125 H 104 H Pulse Rhythm Respiratory Rate 27 H 17 Respiratory Effort / Characteristics Respiratory Depth Blood Pressure 119/81 Blood Pressure Mean Pulse Oximetry 97 Oxygen Delivery Method Oxygen Flow Rate Sepsis Recent Fever Within 48 Hours Sepsis New/Unexplained Change in Mental Status Sepsis Action Taken by Nursing 12/25/24 15:21 12/25/24 15:30 12/25/24 15:31 Temperature Temperature Source Pulse Rate 103 H 96 H Pulse Rate from SpO2 Sensor 106 H Pulse Rhythm Respiratory Rate 14 21 Respiratory Effort / Characteristics Respiratory Depth Blood Pressure 131/87 Blood Pressure Mean 97 Pulse Oximetry 88 L Oxygen Delivery Method Oxygen Flow Rate Sepsis Recent Fever Within 48 Hours Sepsis New/Unexplained Change in Mental Status Sepsis Action Taken by Nursing 12/25/24 15:51 12/25/24 16:01 Temperature Temperature Source Pulse Rate 96 H Pulse Rate from SpO2 Sensor Pulse Rhythm Respiratory Rate 21 Respiratory Effort / Characteristics Respiratory Depth Blood Pressure 108/57 L Blood Pressure Mean 75 Pulse Oximetry Oxygen Delivery Method Oxygen Flow Rate Sepsis Recent Fever Within 48 Hours Sepsis New/Unexplained Change in Mental Status Sepsis Action Taken by Nursing Laboratory Data Attestation: I reviewed the patient's lab results. 12/26/24 08:49 12/26/24 08:49 Lab Results 12/25/24 12/25/24 Range/Units 14:14 14:20 WBC 10.60 (4.8-10.8) K/ul RBC 4.88 (4.70-6.10) M/uL Hgb 11.5 L (14.0-18.0) g/dl Hct 37.1 L (42.0-52.0) % MCV 76.0 L (80.0-100.0) fL MCH 23.6 L (25.0-34.0) pg MCHC 31.0 L (32.0-36.0) g/dL RDW Std Deviation 51.8 H (36.4-46.3) fL RDW Coeff of Alex 19.4 H (11.5-14.5) % Plt Count 336 (130-400) K/uL MPV 10.6 (9.4-12.4) fL Immature Gran % (Auto) 0.5 % Neut % (Auto) 71.8 % Lymph % (Auto) 12.5 % Gaston % (Auto) 11.2 % Eos % (Auto) 3.5 % Baso % (Auto) 0.5 % Neut # (Auto) 7.61 H (1.40-6.50) K/uL Lymph # (Auto) 1.33 (1.20-3.40) K/uL Gaston # (Auto) 1.19 H (0.11-0.59) K/uL Eos # (Auto) 0.37 (0.00-0.50) K/uL Baso # (Auto) 0.05 (0.00-0.20) K/uL Immature Gran # (Auto) 0.05 (0.01-0.20) K/uL ESR 45 H (0-20) mm/hr PT 11.5 (9.0-12.0) Seconds INR 1.1 (0.9-1.1) Sodium 137 (136-145) mmol/L Potassium 3.9 (3.5-5.1) mmol/L Chloride 107 (98-107) mmol/L Carbon Dioxide 23 (21-32) mmol/L Anion Gap 7 (3-11) BUN 11 (6-23) mg/dl Creatinine 0.70 (0.6-1.4) mg/dl Est Cr Clr Drug Dosing 130.8 ml/min eGFR 105.49 BUN/Creatinine Ratio 15.7 (10-20) Glucose 100 H (70-99(Fasting)) mg/dl Calcium 9.1 (8.6-10.3) mg/dl Phosphorus 2.8 (2.5-4.9) mg/dl Magnesium 1.9 (1.7-2.4) mg/dl Total Bilirubin 0.8 (0.2-1.0) mg/dl AST 11 L (13-39) U/L ALT 13 (7-52) U/L Alkaline Phosphatase 69 (34-104) U/L Troponin I High Sens 20.0 (0-20) pg/ml C-Reactive Protein 5.20 H (0-0.5) mg/dl Total Protein 6.4 (6.0-8.3) gm/dl Albumin 3.7 (3.4-5.0) gm/dl Globulin 2.7 (2.5-4.0) gm/dl Albumin/Globulin Ratio 1.4 (0.9-2) Lipase 22 (11-82) U/L Procalcitonin < 0.02 (0-0.5) ng/ml TSH 1.739 (0.300-4.500) uIu/ml Urine Color Yellow Urine Appearance Clear (Clear) Urine pH 6.0 (4.5-7.5) Ur Specific Mitchell 1.020 (1.000-1.030) Urine Protein Trace H (Negative) Urine Glucose (UA) Negative (Negative) Urine Ketones Trace H (Negative) Urine Blood Negative (Negative) Urine Nitrite Negative (Negative) Urine Bilirubin Negative (Negative) Urine Urobilinogen Negative (Negative) Ur Leukocyte Esterase Negative (Negative) Urine WBC (Auto) 0-5 (0-5) /hpf Urine RBC (Auto) 0-2 (0-2) /hpf U Hyaline Cast (Auto) 0-2 (0-2) /lpf U Epithel Cells (Auto) 0-2 (0-2) /hpf Urine Bacteria (Auto) None Seen (None Seen) Urine Comment Ethyl Alcohol mg/dL < 10.0 (<10.0) mg/dl Administered Medications Aspirin (Aspirin 81 Mg Ectab) 81 mg PO DAILY [facility] Stop: 01/25/25 08:59 Last Admin: 12/26/24 10:57 Dose: 81 mg Documented By: TEMI Atorvastatin Calcium (Atorvastatin 10 Mg Tab) 10 mg PO DAILY [facility] Stop: 01/25/25 08:59 Last Admin: 12/26/24 10:58 Dose: 10 mg Documented By: TEMI Digoxin (Digoxin 0.125 Mg Tab) 0.125 mg PO QA [facility] Stop: 01/24/25 18:05 Last Admin: 12/26/24 10:58 Dose: 0.125 mg Documented By: Admin: 12/25/24 20:04 Dose: 0.125 mg Documented By: CASEY Divalproex Sodium (Divalproex Extended Release 250 Mg Tabcr) 250 mg PO DAILY [facility] Stop: 01/25/25 08:59 Last Admin: 12/26/24 11:00 Dose: 250 mg Documented By: TEMI Duloxetine HCl (Duloxetine Hcl 30 Mg Cap) 30 mg PO [facility] Stop: 01/25/25 08:59 Last Admin: 12/26/24 11:00 Dose: 30 mg Documented By: TEMI Empagliflozin (Empagliflozin 25 Mg Tab) 25 mg PO [facility] Stop: 01/25/25 08:59 Last Admin: 12/26/24 11:00 Dose: 25 mg Documented By: TEMI Fluticasone Furoate (Fluticasone Furoate 100mcg 14 Puffs/Inhaler) 1 puffs INH DAILY [facility] Stop: 01/25/25 08:59 Last Admin: 12/26/24 11:01 Dose: 1 puffs Documented By: TEMI Furosemide (Furosemide 40 Mg Tab) 40 mg PO BID [facility] Stop: 01/24/25 20:59 Last Admin: 12/26/24 11:01 Dose: 40 mg Documented By: Admin: 12/25/24 20:03 Dose: 40 mg Documented By: CASEY Heparin Sodium/Dextrose (Heparin 20715 Unit/500 Ml D5w) 25,000 units in 500 mls @ 32 mls/hr IV .[id number] [facility]; Protocol Stop: 01/24/25 18:14 Last Admin: 12/26/24 12:32 Dose: 1,600 units/hr, 32 mls/hr Documented By: TEMI Co-signed By: AVELINA Titration: 12/26/24 12:32 Dose: Infused Documented By: TEMI Co-signed By: AVELINA Titration: 12/26/24 08:12 Dose: 1,500 units/hr, 30 mls/hr Documented By: TEMI Co-signed By: AVELINA Admin: 12/25/24 20:05 Dose: 1,500 units/hr, 30 mls/hr Documented By: CASEY Co-signed By: YAMILETH Piperacillin Sod/Tazobactam Sod (Zosyn) 4.5 gm in 100 mls @ 25 mls/hr IV Q8H [facility]; Protocol Stop: 01/01/25 20:59 Last Admin: 12/26/24 14:09 Dose: 25 mls/hr Documented By: Infusion: 12/26/24 13:19 Dose: Infused Documented By: Admin: 12/26/24 06:29 Dose: 25 mls/hr Documented By: Infusion: 12/26/24 02:56 Dose: Infused Documented By: Admin: 12/25/24 22:47 Dose: 25 mls/hr Documented By: CASEY Vancomycin HCl (Vancomycin Hcl) 1,000 mg in 270 mls @ 200 mls/hr IV Q8H [facility] Stop: 01/02/25 04:59 Last Infusion: 12/26/24 16:53 Dose: Infused Documented By: Admin: 12/26/24 14:14 Dose: 200 mls/hr Documented By: Infusion: 12/26/24 06:07 Dose: Infused Documented By: Admin: 12/26/24 04:37 Dose: 200 mls/hr Documented By: CASEY Magnesium Oxide (Magnesium Oxide 400 Mg Tab) [facility] [place]: 01/25/25 08:59 Last Admin: 12/26/24 11:01 Dose: 400 mg Documented By: TEMI Metoprolol Succinate (Metoprolol Succ 50mg Ext Rel Tab) 150 mg PO [facility] Stop: 01/24/25 20:59 Last Admin: 12/26/24 11:08 Dose: 150 mg Documented By: Admin: 12/25/24 20:02 Dose: 150 mg Documented By: CASEY Oxycodone/Acetaminophen (Oxycodone/Acetaminophen 10-325 Tab) 1 tab PO BID PRN PRN Reason: Pain,severe Stop: 01/08/25 18:05 Last Admin: 12/26/24 11:16 Dose: 1 tab Documented By: Admin: 12/25/24 20:29 Dose: 1 tab Documented By: CASEY Pantoprazole Sodium (Pantoprazole 40 Mg Tab) 40 mg PO DAILYBB [facility] Stop: 01/25/25 06:29 Last Admin: 12/26/24 06:30 Dose: 40 mg Documented By: CASEY Prednisone (Prednisone 10 Mg Tablet) 10 mg PO DAILY [facility] Stop: 01/25/25 08:59 Last Admin: 12/26/24 11:02 Dose: 10 mg Documented By: TEMI Sacubitril/Valsartan (Valsartan/Sacubitril 26/24mg Tab) 0.5 tab PO AMHS [facility] Stop: 01/24/25 20:59 Last Admin: 12/26/24 11:04 Dose: 0.5 tab Documented By: Admin: 12/25/24 20:06 Dose: 0.5 tab Documented By: CASEY Sildenafil Citrate (Sildenafil Citrate 20 Mg Tablet) 20 mg PO TID [facility] Stop: 01/24/25 20:59 Last Admin: 12/26/24 15:33 Dose: 20 mg Documented By: Admin: 12/26/24 11:03 Dose: 20 mg Documented By: Admin: 12/25/24 20:05 Dose: 20 mg Documented By: CASEY Spironolactone (Spironolactone 12.5 Mg Tab) 12.5 mg PO QAM [facility] Stop: 01/25/25 08:59 Last Admin: 12/26/24 11:03 Dose: 12.5 mg Documented By: TEMI Sulfasalazine (Sulfasalazine 500 Mg Tablet) 1,000 mg PO BID [facility] Stop: 01/24/25 20:59 Last Admin: 12/26/24 11:03 Dose: 1,000 mg Documented By: Admin: 12/25/24 20:02 Dose: 1,000 mg Documented By: CASEY Umeclidinium/Vilanterol (Umeclidinium/Vilanterol 62.5/25mcg 7 Puffs/Inhaler) 1 puffs INH DAILY [facility] Stop: 01/25/25 08:59 Last Admin: 12/26/24 11:03 Dose: 1 puffs Documented By: TEMI Discontinued Medications Heparin Sodium (Porcine) (Heparin Sod (Porcine) 1000 Unit/Ml) 7,000 units IV NOW ONE Stop: 12/25/24 18:16 Last Admin: 12/25/24 20:04 Dose: 7,000 units Documented By: CASEY Co-signed By: YAMILETH Hydromorphone HCl (Hydromorphone Inj 0.5 Mg/0.5 Ml Syr) 0.5 mg IV NOW STA Stop: 12/26/24 04:43 Last Admin: 12/26/24 04:49 Dose: 0.5 mg Documented By: CASEY Acetaminophen (Ofirmev) 1,000 mg in 100 mls @ 400 mls/hr IV NOW STA Stop: 12/25/24 14:39 Last Infusion: 12/25/24 15:00 Dose: Infused Documented By: АЛЕКСАНДР Admin: 12/25/24 14:45 Dose: 400 mls/hr Documented By: YANNI Vancomycin HCl 2,500 mg/ (Sodium Chloride) 550 mls @ 200 mls/hr IV NOW ONE Stop: 12/25/24 18:41 Last Infusion: 12/25/24 21:35 Dose: Infused Documented By: Admin: 12/25/24 18:03 Dose: 200 mls/hr Documented By: JOSE Piperacillin Sod/Tazobactam Sod (Zosyn) 4.5 gm in 100 mls @ 200 mls/hr IV NOW ONE; Protocol Stop: 12/25/24 16:28 Last Infusion: 12/25/24 20:17 Dose: Infused Documented By: Admin: 12/25/24 16:26 Dose: 200 mls/hr Documented By: АЛЕКСАНДР Sodium Chloride (Nss) 500 mls @ 80 mls/hr IV .Q6H15M [facility] Stop: 12/25/24 22:14 Last Infusion: 12/25/24 22:57 Dose: Infused Documented By: Admin: 12/25/24 16:28 Dose: 80 mls/hr Documented By: АЛЕКСАНДР Ioversol (Optiray 320 125ml) 118 ml IV ONCE ONE Stop: 12/25/24 17:17 Last Admin: 12/25/24 17:16 Dose: 118 ml Documented By: OPAL Metoprolol Tartrate (Metoprolol Tartrate 1 Mg/Ml Vial) 5 mg IV NOW STA Stop: 12/25/24 14:22 Last Admin: 12/25/24 14:45 Dose: 5 mg Documented By: YANNI Imaging Data Radiologist's Impression: Chest X-Ray 12/25/24 13:45 XR chest 1V portable CLINICAL HISTORY: Chest pain, nonspecific COMPARISON STUDY: 11/26/2023 FINDINGS: There is moderate cardiomegaly with increased pulmonary vascular congestion. There is increased pulmonary interstitial prominence. There is an interval small area of patchy opacity lateral right mid and lower lung. No pleural effusion or pneumothorax. IMPRESSION: 1. CHF. 2. Possible early pneumonia on the right. ACT 112: Negative or not required by law. Electronically signed by: Alberto Joseph M.D. 12/25/2024 2:15 PM Foot X-Ray 12/25/24 14:21 XR foot LT min 3V routine CLINICAL HISTORY: Great toe necrosis COMPARISON: None FINDINGS: There is soft tissue swelling and irregularity distally at the great toe. There is cortical thinning distal aspect of the first distal phalanx. This suggests early osteomyelitis. There is a possible superimposed nondisplaced fracture distal aspect distal first phalanx. No other acute osseous finding seen at the left foot. IMPRESSION: 1. Likely early osteomyelitis distally at the first distal phalanx with possible superimposed nondisplaced fracture. 2. No other acute osseous finding seen. ACT 112: Negative or not required by law. Electronically signed by: Alberto Joseph M.D. 12/25/2024 2:43 PM Discharge Plan Visit Data Chief Complaint: Shortness of Breath/Dyspnea Stated Complaint: SOB ED Provider: Wilmar Carlton Discharge Problem: Osteomyelitis of great toe of left foot, Atrial fibrillation with rapid ventricular response, PAD (peripheral artery disease) Patient Disposition: Admitted As Inpatient Condition: Fair Discharge Instructions Interventions: ED Discharge Assessment Last Done: 12/25/24 18:40
[2024-12-25 14:27] LABS: Appearance Urine Clear (Clear); Bacteria Urine Automated None Seen (None Seen); Cast Urine Automated 0-2 /lpf (0-2); Epithelial Cell Urine Auto 0-2 /hpf (0-2); Glucose Urine UA Negative (Negative); RBC Urine Automated 0-2 /hpf (0-2); WBC Urine Automated 0-5 /hpf (0-5)
--- NOTE | 2024-12-25 14:44 | XRay Report ---
XR foot LT min 3V routine CLINICAL HISTORY: Great toe necrosis COMPARISON: None FINDINGS: There is soft tissue swelling and irregularity distally at the great toe. There is cortica l thinning distal aspect of the first distal phalanx. This suggests early osteomyelitis. There is a p ossible superimposed nondisplaced fracture distal aspect distal first phalanx. No other acute osseous finding seen at the left foot. IMPRESSION: 1. Likely early osteomyelitis distally at the first distal phalanx with possible superimposed nondisp laced fracture. 2. No other acute osseous finding seen. ACT 112: Negative or not required by law. Electronically signed by: Alberto Joseph M.D. 12/25/2024 2:43 PM
[2024-12-25] MEDS: METOPROLOL TARTRATE 1 MG/ML VIAL IV STA (14:45)
[2024-12-25] MEDS: ACETAMINOPHEN 1,000 MG/100 ML VIAL IV STA (14:45)
[2024-12-25 14:51] LABS: Hematocrit (blood only) 37.1 % (42.0-52.0); Hemoglobin 11.5 g/dl (14.0-18.0); Immature Granulocytes # (auto) 0.05 K/uL (0.01-0.20); Immature Granulocytes % (auto) 0.5 %; Mean Corpuscular Hemoglobin 23.6 pg (25.0-34.0); Mean Corpuscular Volume 76.0 fL (80.0-100.0); Platelet Count 336 K/uL (130-400); RDW Standard Deviation 51.8 fL (36.4-46.3); Red Blood Count 4.88 M/uL (4.70-6.10); White Blood Count 10.60 K/ul (4.8-10.8)
[2024-12-25 15:11] LABS: Alanine Aminotransferase 13.0 U/L (7-52); Albumin Globulin Ratio 1.4 (0.9-2); Alkaline Phosphatase 69.0 U/L (34-104); Anion Gap 7.0 (3-11); Bilirubin,Total 0.8 mg/dl (0.2-1.0); Blood Urea Nitrogen 11.0 mg/dl (6-23); Calcium 9.1 mg/dl (8.6-10.3); Carbon Dioxide 23.0 mmol/L (21-32); Chloride 107.0 mmol/L (98-107); Creatinine Clr Calc Pharmacy 130.8 ml/min; Globulin 2.7 gm/dl (2.5-4.0); Glucose 100.0 mg/dl (70-99(Fasting)); Lipase 22.0 U/L (11-82); Magnesium 1.9 mg/dl (1.7-2.4); Potassium 3.9 mmol/L (3.5-5.1); Sodium 137.0 mmol/L (136-145); Total Protein 6.4 gm/dl (6.0-8.3)
[2024-12-25 15:14] LABS: INR 1.1 (0.9-1.1); Prothrombin Time 11.5 Seconds (9.0-12.0)
[2024-12-25 15:26] LABS: Thyroid Stimulating Hormone 1.739 uIu/ml (0.300-4.500)
[2024-12-25] MEDS ORDERED: VANCOMYCIN CONSULT ACTIVE PRN (15:57)
[2024-12-25] MEDS: PIPERACILLIN/TAZOBACTAM 4.5 GM/100 ML BAG IV ONE (16:26)
[2024-12-25] MEDS: SODIUM CHLORIDE 0.9% 500 ML IV SCH (16:28)
[2024-12-25] MEDS: OPTIRAY 320 125ml IV ONE (17:16)
--- NOTE | 2024-12-25 17:19 | History & Physical Report ---
Date of Service December 25, 2024 Assessment & Plan (1) Chest pain at rest: Plan: Admit to [facility] w/ telemetry Note that patient has not had any of his medications for the past few weeks due to insurance issues. Patient presented for evaluation of chest pain that began last evening In the ED, initial HS troponin 20, EKG without acute ST changes Patient prescribed Eliquis for atrial fibrillation however has not been taking, will check CTA chest Continue to trend trop, Resting echo (2) Osteomyelitis of great toe of left foot: Plan: Patient has been following with PCP for ulcer and necrosis of the left great toe. Referral placed for podiatry however patient has not been evaluated. History of PAD and osteomyelitis of the right great toe s/p amputation Left foot x-ray shows Likely early osteomyelitis distally at the first distal phalanx with possible superimposed nondisplaced fracture. S/p Vanco and Zosyn in the ED, will continue with Podiatry consult (3) Atrial fibrillation with rapid ventricular response: Plan: Likely due to missed doses of medications S/p metoprolol 5 mg IV X1 in the ED with improvement of rate Resume prior doses of digoxin and metoprolol Resume Eliquis (4) Rheumatoid arthritis: Plan: Hold leflunomide due to osteomyelitis Resume sulfasalazine and prednisone (5) Heart failure with improved ejection fraction (HFimpEF): Plan: History of Systolic congestive heart failure, tachycardic induced, EF 25-30% in the setting of AF RVR 06/2022 Echo 11/2023-EF 50 to 55%, trace MR, moderate TR Resume spironolactone and Lasix, Entresto, beta-tyrone, Jardiance Appears euvolemic (6) ASCVD (arteriosclerotic cardiovascular disease): Plan: Nonobstructive CAD per cardiac catheterization 04/20/2021 Continue ASA, statin, beta-tyrone (7) PAD (peripheral artery disease): Plan: Continue ASA and statin Check LLE arterial Doppler (8) Mood disorder: Plan: Stable, resume divalproex (9) Raynauds disease: Plan: Stable, resume sildenafil (10) COPD (chronic obstructive pulmonary disease): Plan: No signs of acute exacerbation Continue home inhalers DVT PROPHYLAXIS Eliquis Patient seen in collaboration with Dr. Natarajan. I spent a total of 75 minutes coordinating, documenting, and providing care for this patient excluding time spent in the performance of separately billed services. This included personally reviewing all current laboratories and imaging studies, medication reconciliation, outpatient chart review, and discussion with specialists. History of Present Illness Chief Complaint: chest pain Primary Care Provider: Anahy Grayson MD 67-year-old male with PMH rheumatoid arthritis on chronic prednisone therapy, Raynaud's,persistent atrial fibrillation (prescribed Eliquis however has not been taking), COPD, HFimpEF, CAD, PAD, and other problems listed below who presents to the ED for evaluation of chest pain. patient reports he developed a left lower sided chest pain yesterday evening that has been persistent. Pain seems to be worse with a deep breath. Patient denies shortness of breath. Patient reports he has not taken any of his medications in the past few weeks due to insurance issues. Patient is noted to have necrosis of the left great toe, has been following with his PCP and is scheduled to see podiatry soon. Patient denies palpitations. No lightheadedness, dizziness, diaphoresis, syncopal events. No fevers or chills. He denies abdominal pain, nausea, vomi ting, diarrhea. No urinary symptoms. In the ED, patient was in atrial fibrillation with RVR with rates in the 110's. Labs show elevated ESR and CRP. Left foot x-ray shows Likely early osteomyelitis distally at the first distal phalanx with possible superimposed nondisplaced fracture. patient was given IV Tylenol, IV metoprolol 5 mg X1, IV Zosyn, IV Vanco, IVF. Allergies Allergy/AdvReac Type Severity Reaction Status Date / Time No Known Allergies Allergy Verified 10/24/23 16:32 Home Medications Medication Instructions Recorded Confirmed Type nitroglycerin 0.4 mg sublingual 0.4 mg sublingual UD PRN Chest Pain 08/27/21 12/25/24 History tablet alendronate 70 mg tablet 70 mg PO WK #4 tabs 12/04/23 12/25/24 Rx apixaban 5 mg tablet (Eliquis) 5 mg PO BID #60 tabs 12/04/23 12/25/24 Rx cholecalciferol (vitamin D3) 10 10 mcg PO QAM #30 caps 12/04/23 12/25/24 Rx mcg (400 unit) capsule (Vitamin D3) digoxin 125 mcg (0.125 mg) tablet 0.125 mcg (0.001 x 125 mcg (0.125 12/04/23 12/25/24 Rx mg)) PO QAM #30 tabs duloxetine 30 mg capsule,delayed 30 mg PO QAM #30 caps 12/04/23 12/25/24 Rx release metoprolol succinate 100 mg 150 mg (1.5 x 100 mg) PO AMHS #90 12/04/23 12/25/24 Rx tablet,extended release 24 hr tabs omeprazole 40 mg capsule,delayed 40 mg PO DAILYBB #30 caps 12/04/23 12/25/24 Rx release ondansetron HCl 4 mg tablet 4 mg PO Q8H PRN Nausea #10 tabs 12/04/23 12/25/24 Rx spironolactone 25 mg tablet 12.5 mg (1/2 x 25 mg) PO QAM #15 12/04/23 12/25/24 Rx tabs sulfasalazine 500 mg tablet 1,000 mg (2 x 500 mg) PO BID #120 12/04/23 12/25/24 Rx tabs aspirin 81 mg tablet 81 mg PO DAILY 12/25/24 12/25/24 History atorvastatin 10 mg tablet 10 mg PO DAILY 12/25/24 12/25/24 History divalproex 250 mg tablet,extended 250 mg PO DAILY 12/25/24 12/25/24 History release 24 hr empagliflozin 25 mg tablet 25 mg PO QAM 12/25/24 12/25/24 History (Jardiance) fluticasone fur. 100 mcg-umeclid 1 ea inhalation QA 12/25/24 12/25/24 History 62.5 mcg-vilant 25 mcg inhalat.powder (Trelegy Ellipta) furosemide 20 mg tablet 40 mg PO DAILY 12/25/24 12/25/24 History leflunomide 10 mg tablet 10 mg PO DAILY 12/25/24 12/25/24 History magnesium oxide 400 mg (241.3 mg 400 mg PO QAM 12/25/24 12/25/24 History magnesium) tablet oxycodone-acetaminophen 10 mg-325 1 tab PO BID PRN Pain,severe 12/25/24 12/25/24 History mg tablet prednisone 5 mg tablet 10 mg PO DAILY RHEUMATOID ARTHRITIS 12/25/24 12/25/24 History sacubitril 24 mg-valsartan 26 mg 1 tab PO AMHS 12/25/24 12/25/24 History tablet (Entresto) sildenafil (pulm.hypertension) 20 20 mg PO TID 12/25/24 12/25/24 History mg tablet Past Med/Surg History Problem List (Updated 12/25/24 @ 17:14 by PATRICK Phoenix) Mood disorder Osteomyelitis of great toe of left foot (Acute) Chest pain at rest Atrial fibrillation with rapid ventricular response (Acute) Depressive disorder Raynauds disease PAD (peripheral artery disease) HTN (hypertension) Hepatitis C Chronic steroid use (Chronic) Rheumatoid arthritis (Chronic) GERD (gastroesophageal reflux disease) Osteoarthritis of right knee (Chronic) Status post right knee replacement (Acute) Medical History (Updated 12/25/24 @ 18:10 by Wilmar Carlton MD) Heart failure with improved ejection fraction (HFimpEF) Medical non-compliance COPD (chronic obstructive pulmonary disease) History of osteomyelitis ASCVD (arteriosclerotic cardiovascular disease) Chronic atrial fibrillation Dyslipidemia, goal LDL below 70 Erectile dysfunction Tobacco use disorder Surgical History (Updated 12/25/24 @ 17:14 by PATRICK Phoenix) History of cardiac cath History of colonoscopy Hx of tonsillectomy Family History Other Heart disease Hypertension Social History Smoking Status: Current every day smoker Tobacco Type: Cigarettes Cigarettes Per Day: 1; Second Hand Exposure: Yes; Do You Dip or Chew Tobacco: No; Hx Alcohol Use: No Hx Substance Use: No Preferred Language: Tajik Communication Ability: Effective Client Services Analyst Required: No Beliefs That Will Affect Care: None Current Living Situation: Family Current Living Situation Comment: Lives at home with girlfriend Hayley, & their child Danica Feels Safe at Home: Yes Assistive Devices: Cane Review of Systems Review of Systems: ROS per HPI, all other systems reviewed and negative Physical Exam Constitutional: WD/WN, vitals as above no acute distress Respiratory: normal respiratory effort, lungs clear to auscultation Cardiovascular: Rate/Rhythm: regular rate and + irregularly irregular Vessels: normal peripheral pulses Extremities: + edema (trace edema BLE) Gastrointestinal (Abdomen): normal bowel sounds, soft, nontender, no hepatosplenomegaly Skin: no rashes, warm and dry necrosis of left great toe Neurologic: no focal motor deficits Psychiatric: A+Ox3, euthymic affect Results & Data Results & Data Vital Signs (Past 12 Hours) Vital Signs Temp Pulse Resp BP Pulse Ox O2 Del Method O2 Flow Rate 12/25/24 16:30 98 H 20 12/25/24 16:30 124/85 12/25/24 16:27 93 H 16 12/25/24 16:01 108/57 L 12/25/24 15:51 96 H 21 12/25/24 15:31 131/87 12/25/24 15:30 96 H 21 12/25/24 15:21 103 H 14 88 L 12/25/24 15:12 90 17 97 12/25/24 15:03 87 27 H 12/25/24 15:00 90 119/81 12/25/24 15:00 119/81 12/25/24 15:00 119/81 12/25/24 14:48 106 H 16 95 12/25/24 14:42 103 H 24 95 12/25/24 14:31 138/101 H 12/25/24 14:31 138/101 H 12/25/24 14:27 113 H 12/25/24 14:21 98 H 94 12/25/24 14:14 138/95 12/25/24 14:14 138/95 12/25/24 13:46 Room Air 12/25/24 13:46 96 Room Air 0 12/25/24 13:46 37 C 122 H 18 123/91 96 Room Air Laboratory Results Short CBC 12/25/24 Range/Units 14:20 WBC 10.60 (4.8-10.8) K/ul Hgb 11.5 L (14.0-18.0) g/dl Hct 37.1 L (42.0-52.0) % Plt Count 336 (130-400) K/uL BMP 12/25/24 14:20 Sodium 137 Potassium 3.9 Chloride 107 Carbon Dioxide 23 BUN 11 Creatinine 0.70 Glucose 100 H Calcium 9.1 Liver Function 12/25/24 Range/Units 14:20 Total Bilirubin 0.8 (0.2-1.0) mg/dl AST 11 L (13-39) U/L ALT 13 (7-52) U/L Alkaline Phosphatase 69 (34-104) U/L Albumin 3.7 (3.4-5.0) gm/dl Urine 12/25/24 Range/Units 14:14 Urine Color Yellow Urine Appearance Clear (Clear) Urine pH 6.0 (4.5-7.5) Ur Specific [place] 1.020 (1.000-1.030) Urine Protein Trace H (Negative) Urine Glucose (UA) Negative (Negative) Diagnostic Findings Chest X-Ray 12/25/24 13:45 XR chest 1V portable CLINICAL HISTORY: Chest pain, nonspecific COMPARISON STUDY: 11/26/2023 FINDINGS: There is moderate cardiomegaly with increased pulmonary vascular congestion. There is increased pulmonary interstitial prominence. There is an interval small area of patchy opacity lateral right mid and lower lung. No pleural effusion or pneumothorax. IMPRESSION: 1. CHF. 2. Possible early pneumonia on the right. ACT 112: Negative or not required by law. Electronically signed by: Alberto Joseph M.D. 12/25/2024 2:15 PM Foot X-Ray 12/25/24 14:21 XR foot LT min 3V routine CLINICAL HISTORY: Great toe necrosis COMPARISON: None FINDINGS: There is soft tissue swelling and irregularity distally at the great toe. There is cortical thinning distal aspect of the first distal phalanx. This suggests early osteomyelitis. There is a possible superimposed nondisplaced fracture distal aspect distal first phalanx. No other acute osseous finding seen at the left foot. IMPRESSION: 1. Likely early osteomyelitis distally at the first distal phalanx with possible superimposed nondisplaced fracture. 2. No other acute osseous finding seen. ACT 112: Negative or not required by law. Electronically signed by: Alberto Joseph M.D. 12/25/2024 2:43 PM Supervising Physician Co-Signing Physician Notes Attending addendum: Patient was seen and examined in emergency room He was admitted with sudden onset of shortness of breath with chest pain mainly on the left side since last night He denies any palpitation, any nausea no vomiting and also has had minimal swelling of the legs No fever and/or chills on examination Lying in bed with minimal distress due to chest pain and shortness of breath Hemoglobin stable and afebrile Chestdecreased breath sounds bilaterally at the bases with minimal crackles HeartS1-S2, regular Abdomenbenign Extremities trace edema bilaterally left big toe shows dry gangrenous involving involving the distal half minimal pain His admission labs and imaging studies reviewed Noted to have acute pulmonary embolism also left big toe dry gangrene with osteomyelitis He has not been taking his medications especially Eliquis. He was started with intravenous heparin and IV vancomycin and Zosyn Podiatry has been consulted Agree with assessment plan as outlined above by Tesha Avery CRNP and take the full responsibility of care in the hospital Dr Cipriano Natarajan
--- NOTE | 2024-12-25 17:49 | CT Scan Report ---
Clinical history: Shortness of breath Technique: Axial computed tomography images were obtained of the chest after the administration of intravenous contrast according to the CT angiogram protocol Findings: There is suspected subsegmental pulmonary embolism in the lower lobes bilaterally. There is mild pulmonary edema. There is a 1.2 cm irregular nodular opacity in the anterior left upper lobe. There is irregular peripheral alveolar opacity in the right upper lobe. There is no pneumothorax. There are small bilateral pleural effusions. There is bilateral lower lobe atelectasis. No endobronchial lesion is seen There are multiple small mediastinal lymph nodes. There is no overt mediastinal, hilar, or axillary adenopathy. The thoracic aorta appears unremarkable with no sign of aneurysm or dissection. There is no pericardial effusion. There is coronary atherosclerosis The visualized upper abdomen appears unremarkable. There is severe bilateral hip osteoarthritis. There are old healed right rib fractures. No focal osseous lesion is evident Impression: 1. Apparent peripheral pulmonary embolism in the bilateral lower lobes. No central embolus is seen 2. Mild pulmonary edema 3. Small bilateral pleural effusions and bilateral lower lobe atelectasis 4. Bilateral upper lobe opacities that could be due to pneumonia or focal scarring. Neoplasm is less likely but cannot be excluded. A follow-up chest CT could be obtained in 3 months 5. No definite sign of right heart strain ACT 112: Positive. There are findings on this exam that require communication between the performing entity and the patient following Patient Test Result Information Act ([place] ACT 112) guidelines. Electronically signed by Jim Hough 12-25-2024 5:48 PM
[2024-12-25] MEDS ORDERED: Heparin IV Adult Wt-Based Standard w/ INITIAL Bolus Protocol IV STA (18:00)
[2024-12-25] MEDS: VANCOMYCIN HCL 2,500 MG in SODIUM CHLORIDE 0.9% 500 ML IV ONE (18:03)
--- NOTE | 2024-12-25 18:03 | Communication Note ---
Date of Service: December 25, 2024 CTA chest results reviewed 1. Apparent peripheral pulmonary embolism in the bilateral lower lobes. No central embolus is seen 2. Mild pulmonary edema 3. Small bilateral pleural effusions and bilateral lower lobe atelectasis 4. Bilateral upper lobe opacities that could be due to pneumonia or focal scarring. Neoplasm is less likely but cannot be excluded. A follow-up chest CT could be obtained in 3 months 5. No definite sign of right heart strain Will DC Eliquis and start IV heparin Noted bilateral upper lobe opacities, currently receiving IV Vanco and Zosyn. Will add procal to labs. Echo to evaluate for right heart strain BL LE venous Doppler to further evaluate clot burden PATRICK Phoenix Hospitalist
[2024-12-25] MEDS: METOPROLOL SUCC 50MG EXT REL TAB PO SCH (20:02)
[2024-12-25] MEDS: FUROSEMIDE 40 MG TAB PO SCH (20:03)
[2024-12-25] MEDS: DIGOXIN 0.125 MG TAB PO SCH (20:04)
[2024-12-25] MEDS: HEPARIN SOD (PORCINE) 1000 UNIT/ML IV ONE (20:04)
[2024-12-25] MEDS: SILDENAFIL CITRATE 20 MG TABLET PO SCH (20:05)
[2024-12-25] MEDS: HEPARIN 25000 UNIT/500 ML D5W 25,000 UNITS/500 ML BAG IV SCH (20:05)
[2024-12-25] MEDS: VALSARTAN/SACUBITRIL 26/24MG TAB PO SCH (20:06)
[2024-12-25 20:16] LABS: Hematocrit (blood only) 35.1 % (42.0-52.0); Hemoglobin 11.0 g/dl (14.0-18.0); Immature Granulocytes # (auto) 0.03 K/uL (0.01-0.20); Immature Granulocytes % (auto) 0.3 %; Mean Corpuscular Hemoglobin 23.7 pg (25.0-34.0); Mean Corpuscular Volume 75.6 fL (80.0-100.0); Platelet Count 312 K/uL (130-400); RDW Standard Deviation 51.1 fL (36.4-46.3); Red Blood Count 4.64 M/uL (4.70-6.10); White Blood Count 10.25 K/ul (4.8-10.8)
[2024-12-25 20:53] LABS: Partial Thromboplastin Time 30 Seconds (21-31)
--- NOTE | 2024-12-25 21:13 | Podiatry Consultation ---
Date of Consultation December 25, 2024 Assessment & Plan (1) Osteomyelitis of great toe of left foot: (2) PAD (peripheral artery disease): (3) Cellulitis of left foot: Plan - Osteomyelitis of great toe of left foot: Patient's case discussed with Dr. Coley. Tentative plan for left hallux amputation under MAC + local anesthesia after 4:30 12/29/2024 pending medical clearance. NPO at midnight Sunday until post-op. Patient has been following with PCP for ulcer and necrosis of the left great toe. Rx for po doxycycline from pcp with 2 days remaining on Rx at time of admission. Referral placed for podiatry however patient has not been evaluated. History of PAD and osteomyelitis of the right great toe s/p amputation Left foot x-ray shows Likely early osteomyelitis distally at the first distal phalanx with possible superimposed nondisplaced fracture. Order: Arterial duplex ultrasound of the LLE. Monophasic waveforms beginning distal to the popliteal artery raising the possibility of a more proximal stenosis not directly visualized. Failure of partial right hallux amputation in 2023 secondary to possible vascular insufficiency. Consult vascular surgery Order: Wound culture left hallux Order: Post-op shoe for left foot to be worn at all times while ambulating Weightbearing status: Okay to weight bear as tolerated with post op shoe in place to the left foot and walker to assist. DVT prophylaxis: As per medicine: Eliquis Antibiotics: Continues empiric IV vancomycin and zosyn History of Present Illness Reason for Consultation: Osteomyelitis left distal phalanx Attending Physician: Vianca Natarajan MD History of Present Illness 67 year old male presents to [facility] ED for evaluation new onset chest pain. Bilateral PE being managed by hospitalist team. Podiatry consulted to evaluate ulceration to the left great toe with concern for underlying osteomyelitis. Xray of the left foot in ED showing radiographic signs of osteomyelitis. Pt has been following with his PCP for the hallux ulcer. Family reports poor adherence to recommendations for dressing changes and offloading. Denies nausea, diarrhea, vomiting, fever, chills. Reports shortness of breath with intermittent exacerbation as well as chest pain. Initiated on empiric IV vancomycin and Zosyn in the emergency department. History of right hallux amputation in 08/2023 which went on to fail requiring further amputation. Unclear whether failure of the amputation site was secondary to continued infection versus poor vascular supply leading to dehiscence and subsequent infection. Patient went on to have the remainder of his hallux amputated at an outside facility which went on to heal without incident however he did require 6 weeks of IV antibiotic therapy at that time. Allergies Allergy/AdvReac Type Severity Reaction Status Date / Time No Known Allergies Allergy Verified 10/24/23 16:32 Home Medications Medication Instructions Recorded Confirmed Type nitroglycerin 0.4 mg sublingual 0.4 mg sublingual UD PRN Chest Pain 08/27/21 12/25/24 History tablet alendronate 70 mg tablet 70 mg PO WK #4 tabs 12/04/23 12/25/24 Rx apixaban 5 mg tablet (Eliquis) 5 mg PO BID #60 tabs 12/04/23 12/25/24 Rx cholecalciferol (vitamin D3) 10 10 mcg PO QAM #30 caps 12/04/23 12/25/24 Rx mcg (400 unit) capsule (Vitamin D3) digoxin 125 mcg (0.125 mg) tablet 0.125 mcg (0.001 x 125 mcg (0.125 12/04/23 12/25/24 Rx mg)) PO QAM #30 tabs duloxetine 30 mg capsule,delayed 30 mg PO QAM #30 caps 12/04/23 12/25/24 Rx release metoprolol succinate 100 mg 150 mg (1.5 x 100 mg) PO AMHS #90 12/04/23 12/25/24 Rx tablet,extended release 24 hr tabs omeprazole 40 mg capsule,delayed 40 mg PO DAILYBB #30 caps 12/04/23 12/25/24 Rx release ondansetron HCl 4 mg tablet 4 mg PO Q8H PRN Nausea #10 tabs 12/04/23 12/25/24 Rx spironolactone 25 mg tablet 12.5 mg (1/2 x 25 mg) PO QAM #15 12/04/23 12/25/24 Rx tabs sulfasalazine 500 mg tablet 1,000 mg (2 x 500 mg) PO BID #120 12/04/23 12/25/24 Rx tabs aspirin 81 mg tablet 81 mg PO DAILY 12/25/24 12/25/24 History atorvastatin 10 mg tablet 10 mg PO DAILY 12/25/24 12/25/24 History divalproex 250 mg tablet,extended 250 mg PO DAILY 12/25/24 12/25/24 History release 24 hr empagliflozin 25 mg tablet 25 mg PO QAM 12/25/24 12/25/24 History (Jardiance) fluticasone fur. 100 mcg-umeclid 1 ea inhalation QAM 12/25/24 12/25/24 History 62.5 mcg-vilant 25 mcg inhalat.powder (Trelegy Ellipta) furosemide 20 mg tablet 40 mg PO DAILY 12/25/24 12/25/24 History leflunomide 10 mg tablet 10 mg PO DAILY 12/25/24 12/25/24 History magnesium oxide 400 mg (241.3 mg 400 mg PO QAM 12/25/24 12/25/24 History magnesium) tablet oxycodone-acetaminophen 10 mg-325 1 tab PO BID PRN Pain,severe 12/25/24 12/25/24 History mg tablet prednisone 5 mg tablet 10 mg PO DAILY RHEUMATOID ARTHRITIS 12/25/24 12/25/24 History sacubitril 24 mg-valsartan 26 mg 1 tab PO AMHS 12/25/24 12/25/24 History tablet (Entresto) sildenafil (pulm.hypertension) 20 20 mg PO TID 12/25/24 12/25/24 History mg tablet Patient History Medical History (Updated 12/26/24 @ 18:26 by Wilmar Carlton MD) Heart failure with improved ejection fraction (HFimpEF) Medical non-compliance COPD (chronic obstructive pulmonary disease) History of osteomyelitis ASCVD (arteriosclerotic cardiovascular disease) Chronic atrial fibrillation Dyslipidemia, goal LDL below 70 Erectile dysfunction Tobacco use disorder Surgical History (Updated 12/25/24 @ 17:14 by PATRICK Phoenix) History of cardiac cath History of colonoscopy Hx of tonsillectomy Family History Other Heart disease Hypertension Social History Smoking Status: Current every day smoker Tobacco Type: Cigarettes Cigarettes Per Day: 1; Second Hand Exposure: Yes; Do You Dip or Chew Tobacco: No; Hx Alcohol Use: No Hx Substance Use: No Preferred Language: Uzbek Communication Ability: Effective Polls Or Surveys Interviewer Required: No Beliefs That Will Affect Care: None Current Living Situation: Family Current Living Situation Comment: Lives at home with girlfriend Hayley, & their child Danica Feels Safe at Home: Yes Assistive Devices: Cane Review of Systems Review of Systems: Patient denies nausea vomiting fever chills. Reports shortness of breath and chest pain. Physical Exam Physical Exam: Const: Appears well developed and well nourished. No signs of acute distress present. CV: Extremities: No cyanosis or edema. Capillary refill time is less than 2 seconds all digits of the bilateral foot. Posterior tibial and dorsalis pedis pulses are palpable bilateral. Lymph: No palpable or visible regional lymphadenopathy. Skin: Well-healed cicatrix previous right hallux amputation Neuro: Loss of protective sensation bilateral foot. Proprioception remains intact. Psych: Mood/Affect: Mood is normal. Affect is normal. Cognition: Orientation is intact to person, place and time. Focused lower extremity musculoskeletal exam: Leg: No pain with compression of the calf muscle. Ankles: Normal to inspection and palpation. No swelling bilaterally. No tenderness bilaterally. Motor strength is intact. Range of motion pain-free and unlimited. Feet: Well-healed right hallux amputation. Left foot: Ulceration to the distal aspect of the left hallux with surrounding necrotic tissue. Scant purulent drainage from the wound was cultured at bedside. Erythema and edema to the hallux extending to the forefoot. No lymphangitis or streaking. No crepitus on palpation of surrounding soft tissues. Wound has a necrotic base and probes centrally to bone of the distal phalanx. Results & Data Vital Signs (Past 12 Hours) Vital Signs Temp Pulse Pulse Resp BP BP Pulse Ox 12/25/24 20:04 94 H 12/25/24 18:19 12/25/24 18:03 36.3 C L 92 H 18 126/80 94 12/25/24 17:27 88 12 94 12/25/24 17:03 91 H 14 12/25/24 17:00 138/99 12/25/24 16:30 98 H 20 12/25/24 16:30 124/85 12/25/24 16:27 93 H 16 12/25/24 16:01 108/57 L 12/25/24 15:51 96 H 21 12/25/24 15:31 131/87 12/25/24 15:30 96 H 21 12/25/24 15:21 103 H 14 88 L 12/25/24 15:12 90 17 97 12/25/24 15:03 87 27 H 12/25/24 15:00 90 119/81 12/25/24 15:00 119/81 12/25/24 15:00 119/81 12/25/24 14:48 106 H 16 95 12/25/24 14:42 103 H 24 95 12/25/24 14:31 138/101 H 12/25/24 14:31 138/101 H 12/25/24 14:27 113 H 12/25/24 14:21 98 H 94 12/25/24 14:14 138/95 12/25/24 14:14 138/95 12/25/24 13:46 12/25/24 13:46 96 12/25/24 13:46 37 C 122 H 18 123/91 96 O2 Del Method O2 Flow Rate 12/25/24 20:04 12/25/24 18:19 Room Air 12/25/24 18:03 Room Air 12/25/24 17:27 12/25/24 17:03 12/25/24 17:00 12/25/24 16:30 12/25/24 16:30 12/25/24 16:27 12/25/24 16:01 12/25/24 15:51 12/25/24 15:31 12/25/24 15:30 12/25/24 15:21 12/25/24 15:12 12/25/24 15:03 12/25/24 15:00 12/25/24 15:00 12/25/24 15:00 12/25/24 14:48 12/25/24 14:42 12/25/24 14:31 12/25/24 14:31 12/25/24 14:27 12/25/24 14:21 12/25/24 14:14 12/25/24 14:14 12/25/24 13:46 Room Air 12/25/24 13:46 Room Air 0 12/25/24 13:46 Room Air Diagnostic Findings Xray left foot 3 views 12/25/2024 IMPRESSION: 1. Likely early osteomyelitis distally at the first distal phalanx with possible superimposed nondisplaced fracture. 2. No other acute osseous finding seen. PG Care Time/CCT Total # of Minutes Spent Total Time Spent with Patient: Total time spent is greater than 50% in coordination of care (as documented) at patient's floor/unit and/or counseling patient: Coding Level of Care Code 61093 INT INP/OBS CARE MIN Diagnoses Osteomyelitis of great toe of left foot M86.9 PAD (peripheral artery disease) I73.9 Cellulitis of left foot L03.116
--- NOTE | 2024-12-25 22:38 | Ultrasound Report ---
Exam(s): US VENOUS BILATERAL LOWER EXTREMITIES EXAM: US Duplex Bilateral Lower Extremities Veins CLINICAL HISTORY: Reason for exam: PE. TECHNIQUE: Real-time duplex ultrasound scan of the bilateral lower extremity veins integrating B-mode two-dimensional vascular structure, Doppler spectral analysis, color flow Doppler imaging and compression. COMPARISON: No relevant prior studies available. FINDINGS: Right deep veins: No DVT in the right common femoral, femoral, proximal deep femoral or popliteal veins. The veins demonstrate normal color flow, are normally compressible, with normal phasic flow and/or augmentation response. Right superficial veins: No thrombus in the visualized right great saphenous vein. Left deep veins: No DVT in the left common femoral, femoral, proximal deep femoral or popliteal veins. The veins demonstrate normal color flow, are normally compressible, with normal phasic flow and/or augmentation response. Left superficial veins: No thrombus in the visualized left great saphenous vein. Soft tissues: No acute findings. IMPRESSION: No evidence of acute DVT. Electronically signed by: Kurpa Cesar M.D. 12/25/24 22:37 PM
[2024-12-25] MEDS: PIPERACILLIN/TAZOBACTAM 4.5 GM/100 ML BAG IV SCH (22:47)
--- NOTE | 2024-12-25 22:51 | Ultrasound Report ---
Exam(s): US ARTERIAL LEFT LOWER EXTREMITY EXAM: US Duplex Left Lower Extremity Arteries CLINICAL HISTORY: Reason for exam: left great toe wound. TECHNIQUE: Real-time duplex ultrasound scan of the left lower extremity arteries integrating B-mode two-dimensional vascular structure, Doppler spectral analysis and color flow Doppler imaging. COMPARISON: No relevant prior studies available. FINDINGS: There is atherosclerotic vascular disease throughout the left lower extremity. There is no occlusion, and no velocity elevation to suggest hemodynamically significant stenosis. Waveforms are multiphasic from the common femoral artery through the popliteal artery, and monophasic distal to the popliteal artery. Common femoral artery: 77 cm/sec. Deep femoral artery: 94 cm/sec. Proximal femoral artery: 71 cm/sec. Mid femoral artery: 83 cm/sec. Distal femoral artery: 49 cm/sec. Popliteal artery: 69 cm/sec. Proximal [employer] SCENE PHOTOGRAPHER: 49 cm/sec. Distal CR[employer] SCENE PHOTOGRAPHER: 54 cm/sec. Proximal NARINDER: 86 cm/sec. Distal NARINDER: 40 cm/sec. Proximal peroneal artery: 68 cm/sec. Distal peroneal artery: 22 cm/sec. Dorsalis pedis artery: 42 cm/sec. IMPRESSION: 1. No occlusion or high-grade stenosis directly visualized. 2. Monophasic waveforms beginning distal to the popliteal artery raising the possibility of a more proximal stenosis not directly visualized. Electronically signed by: Krupa Cesar M.D. 12/25/24 22:46 PM
[2024-12-26 02:46] LABS: ANTI-Xa, UFH(UnfractionatedHep 0.38 IU/ml (0.3-0.7)
[2024-12-26] MEDS: VANCOMYCIN HCL 1,000 MG/270 ML BAG IV SCH (04:37)
[2024-12-26] MEDS: HYDROmorphone INJ 0.5 MG/0.5 ML SYR IV STA (04:49)
--- NOTE | 2024-12-26 05:21 | Electrocardiogram Report ---
Test Reason : Blood Pressure : */* mmHG Vent. Rate : 134 BPM Atrial Rate : * BPM P-R Int : * ms QRS Dur : 98 ms QT Int : 290 ms P-R-T Axes : * 162 248 degrees QTcB Int : 433 ms Atrial fibrillation with rapid ventricular response Possible Anterior infarct (cited on or before 03-Dec-2023) Nonspecific T wave abnormality Abnormal ECG When compared with ECG of 03-Dec-2023 06:49, Questionable change in initial forces of Anteroseptal leads Nonspecific T wave abnormality, improved in Lateral leads Confirmed by Junior Valle ([id number]) on 12/26/2024 5:20:47 AM Referred By: Confirmed By: Junior Valle
[2024-12-26] MEDS ORDERED: NON-FORMULARY MEDICATION (Fluticasone-Umeclidin-Vilanter [Trelegy Ellipta] 100-62.5-25 mcg INH SCH (09:00)
[2024-12-26 09:25] LABS: Hematocrit (blood only) 36.6 % (42.0-52.0); Hemoglobin 11.2 g/dl (14.0-18.0); Mean Corpuscular Hemoglobin 23.7 pg (25.0-34.0); Mean Corpuscular Volume 77.4 fL (80.0-100.0); Platelet Count 325 K/uL (130-400); RDW Standard Deviation 53.2 fL (36.4-46.3); Red Blood Count 4.73 M/uL (4.70-6.10); White Blood Count 10.27 K/ul (4.8-10.8)
[2024-12-26 09:40] LABS: Anion Gap 6.0 (3-11); Blood Urea Nitrogen 12.0 mg/dl (6-23); Calcium 8.7 mg/dl (8.6-10.3); Carbon Dioxide 24.0 mmol/L (21-32); Chloride 105.0 mmol/L (98-107); Creatinine Clr Calc Pharmacy 99.4 ml/min; Glucose 109.0 mg/dl (70-99(Fasting)); Potassium 4.3 mmol/L (3.5-5.1); Sodium 135.0 mmol/L (136-145)
[2024-12-26 09:49] LABS: ANTI-Xa, UFH(UnfractionatedHep 0.23 IU/ml (0.3-0.7)
--- NOTE | 2024-12-26 10:54 | Pharmacy Report ---
Pharmacy PK ABX Note - Date of Service December 26, 2024 - Assessment and Plan Assessment 59 year old M receiving vancomycin and zosyn for osteomyelitis of great toe of left foot. PMHx significant for PAD and osteo of right great toe s/p amputation. Xray of left foot on admission concerning for early osteomyelitis. CTA chest positive for PE - patient started on heparin infusion. Cultures pending. Plan Vancomycin * Loading dose: 2500 mg IV x 1 * Maintenance dose: 1000 mg IV every 8 hours * Regimen is predicted to achieve target AUC/KENAN of 400-600 mg/L.hr * Will plan to collect a level tomorrow to ensure dosing appropriate Pharmacy will continue to follow and will adjust dose/frequency as necessary. Thank you. Pharmacy has transitioned to AUC monitoring for vancomycin. AUC/KENAN is the preferred PK/PD target and is associated with decreased risk of nephrotoxicity compared to traditional trough targets.
[2024-12-26] MEDS: ASPIRIN 81 MG ECTAB PO SCH (10:57)
[2024-12-26] MEDS: ATORVASTATIN 10 MG TAB PO SCH (10:58)
[2024-12-26] MEDS: DIVALPROEX EXTENDED RELEASE 250 MG TABCR PO SCH (11:00)
[2024-12-26] MEDS: EMPAGLIFLOZIN 25 MG TAB PO SCH (11:00)
[2024-12-26] MEDS: MAGNESIUM OXIDE 400 MG TAB PO SCH (11:01)
[2024-12-26] MEDS: FLUTICASONE FUROATE 100MCG 14 PUFFS/INHALER INH SCH (11:01)
[2024-12-26] MEDS: UMECLIDINIUM/VILANTEROL 62.5/25MCG 7 PUFFS/INHALER INH SCH (11:03)
[2024-12-26] MEDS: SPIRONOLACTONE 12.5 MG TAB PO SCH (11:03)
--- NOTE | 2024-12-26 15:15 | Hospitalist Progress Note ---
Date of Service December 26, 2024 Assessment & Plan (1) Chest pain at rest: Plan: Admit to [facility] w/ telemetry Note that patient has not had any of his medications for the past few weeks due to insurance issues. Patient presented for evaluation of chest pain that began last evening In the ED, initial HS troponin 20, EKG without acute ST changes Patient prescribed Eliquis for atrial fibrillation however has not been taking, will check CTA chest Remains stable with minimal chest pain with breathing Echocardiogram showed borderline concentric LVH, LV systolic function is normal, LV wall motion is normal, ejection fraction is 55 to 60%, RV is normal in size a nd function, there is mild annular mitral calcification, mild tricuspid regurgitation and mild aortic regurgitation Remains otherwise medically stable (2) Osteomyelitis of great toe of left foot: Plan: Patient has been following with PCP for ulcer and necrosis of the left great toe. Referral placed for podiatry however patient has not been evaluated. History of PAD and osteomyelitis of the right great toe s/p amputation Left foot x-ray shows Likely early osteomyelitis distally at the first distal phalanx with possible superimposed nondisplaced fracture. S/p Vanco and Zosyn in the ED, will continue with Podiatry consult-appreciate consult with input and recommendation for possible partial amputation of the left big toe Continue current antibiotic and likely surgery on Sunday (3) Atrial fibrillation with rapid ventricular response: Plan: Likely due to missed doses of medications S/p metoprolol 5 mg IV X1 in the ED with improvement of rate Resume prior doses of digoxin and metoprolol Resume Eliquis-following surgery (4) Rheumatoid arthritis: Plan: Hold leflunomide due to osteomyelitis Resume sulfasalazine and prednisone (5) Heart failure with improved ejection fraction (HFimpEF): Plan: History of Systolic congestive heart failure, tachycardic induced, EF 25-30% in the setting of AF RVR 06/2022 Echo 11/2023-EF 50 to 55%, trace MR, moderate TR Resume spironolactone and Lasix, Entresto, beta-tyrone, Jardiance Appears euvolemic (6) ASCVD (arteriosclerotic cardiovascular disease): Plan: Nonobstructive CAD per cardiac catheterization 04/20/2021 Continue ASA, statin, beta-tyrone (7) PAD (peripheral artery disease): Plan: Continue ASA and statin Check LLE arterial Doppler (8) Mood disorder: Plan: Stable, resume divalproex (9) Raynauds disease: Plan: Stable, resume sildenafil (10) COPD (chronic obstructive pulmonary disease): Plan: No signs of acute exacerbation Continue home inhalers DVT PROPHYLAXIS Cody Patient seen in collaboration with Dr. Natarajan. I spent a total of 75 minutes coordinating, documenting, and providing care for this patient excluding time spent in the performance of separately billed services. This included personally reviewing all current laboratories and imaging studies, medication reconciliation, outpatient chart review, and discussion with specialists. Admission and Anticipated Discharge Date Admission Date: December 25, 2024 Subjective 12/26/2024 The patient was seen and examined in medical telemetry unit in presence of the He has been little better he still has chest pain with breathing had minimal shortness of breath No cough and no hemoptysis and no fever and or chills Denies any increase in pain in the left great toe Review of Systems Review of Systems: ROS per HPI, all other systems reviewed and negative Physical Exam Physical Exam: Lying in bed with minimal distress due to respiratory symptoms as above Constitutional: well developed, well nourished, + ill appearing and + obese Eyes: PERRL, conjunctivae normal, anicteric sclerae ENMT: external ear and nose normal, oropharynx normal Neck: trachea midline, no thyromegaly Respiratory: + respiratory distress Auscultation: lungs clear to auscultation bilaterally Cardiovascular: Rate/Rhythm: regular rate and regular rhythm; not tachycardic Heart Sounds: normal S1 and normal S2; no murmur Extremities: no edema Gastrointestinal (Abdomen): Inspection/Auscultation: normal bowel sounds; abdomen not distended Percussion/Palpation: abdomen soft; abdomen nontender Musculoskeletal: No arthritis involving any of the joint. Left big toe shows dry gangrene involving the distal half with evidence of osteomyelitis of the distal phalanx Neurologic: normal touch/pain/proprioception and moves all extremities; no focal motor deficits Lymphatic: no cervical or axillary lymphadenopathy Results & Data Results & Data Vital Signs (Past 12 Hours) Vital Signs Temp Pulse Pulse Resp BP BP Pulse Ox 12/26/24 14:30 80 12/26/24 14:30 12/26/24 13:33 90 12/26/24 11:15 78 20 121/87 96 12/26/24 10:58 78 12/26/24 07:45 36.6 C 87 20 102/69 93 12/26/24 04:43 91 H 18 111/78 91 O2 Del Method O2 Flow Rate 12/26/24 14:30 12/26/24 14:30 Room Air 12/26/24 13:33 12/26/24 11:15 Nasal Cannula 2 12/26/24 10:58 12/26/24 07:45 Nasal Cannula 2 12/26/24 04:43 Room Air Laboratory Results Short CBC 12/25/24 12/26/24 Range/Units 19:56 08:49 WBC 10.25 10.27 (4.8-10.8) K/ul Hgb 11.0 L 11.2 L (14.0-18.0) g/dl Hct 35.1 L 36.6 L (42.0-52.0) % Plt Count 312 325 (130-400) K/uL BMP 12/26/24 08:49 Sodium 135 L Potassium 4.3 Chloride 105 Carbon Dioxide 24 BUN 12 Creatinine 0.95 Glucose 109 H Calcium 8.7 Medications Administered Current Inpatient Medications Acetaminophen (Acetaminophen 325 Mg Tab) 650 mg PO Q4H PRN PRN Reason: Pain or Fever Stop: 01/24/25 18:05 Aspirin (Aspirin 81 Mg Ectab) 81 mg PO DAILY [facility] Stop: 01/25/25 08:59 Last Admin: 12/26/24 10:57 Dose: 81 mg Atorvastatin Calcium (Atorvastatin 10 Mg Tab) 10 mg PO DAILY [facility] Stop: 01/25/25 08:59 Last Admin: 12/26/24 10:58 Dose: 10 mg Digoxin (Digoxin 0.125 Mg Tab) 0.125 mg PO QAM [facility] Stop: 01/24/25 18:05 Last Admin: 12/26/24 10:58 Dose: 0.125 mg Divalproex Sodium (Divalproex Extended Release 250 Mg Tabcr) 250 mg PO DAILY [facility] Stop: 01/25/25 08:59 Last Admin: 12/26/24 11:00 Dose: 250 mg Duloxetine HCl (Duloxetine Hcl 30 Mg Cap) 30 mg PO QAM [facility] Stop: 01/25/25 08:59 Last Admin: 12/26/24 11:00 Dose: 30 mg Empagliflozin (Empagliflozin 25 Mg Tab) 25 mg PO QAM [facility] Stop: 01/25/25 08:59 Last Admin: 12/26/24 11:00 Dose: 25 mg Fluticasone Furoate (Fluticasone Furoate 100mcg 14 Puffs/Inhaler) 1 puffs INH DAILY [facility] Stop: 01/25/25 08:59 Last Admin: 12/26/24 11:01 Dose: 1 puffs Furosemide (Furosemide 40 Mg Tab) 40 mg PO BID [facility] Stop: 01/24/25 20:59 Last Admin: 12/26/24 11:01 Dose: 40 mg Heparin Sodium/Dextrose (Heparin 37973 Unit/500 Ml D5w) 25,000 units in 500 mls @ 32 mls/hr IV .[id number] [facility]; Protocol Stop: 01/24/25 18:14 Last Admin: 12/26/24 12:32 Dose: 1,600 units/hr, 32 mls/hr Piperacillin Sod/Tazobactam Sod (Zosyn) 4.5 gm in 100 mls @ 25 mls/hr IV Q8H [facility]; Protocol Stop: 01/01/25 20:59 Last Admin: 12/26/24 14:09 Dose: 25 mls/hr Vancomycin HCl (Vancomycin Hcl) 1,000 mg in 270 mls @ 200 mls/hr IV Q8H [facility] Stop: 01/02/25 04:59 Last Admin: 12/26/24 14:14 Dose: 200 mls/hr Magnesium Oxide (Magnesium Oxide 400 Mg Tab) 400 mg PO [facility] Stop: 01/25/25 08:59 Last Admin: 12/26/24 11:01 Dose: 400 mg Metoprolol Succinate (Metoprolol Succ 50mg Ext Rel Tab) 150 mg PO [facility] Stop: 01/24/25 20:59 Last Admin: 12/26/24 11:08 Dose: 150 mg Miscellaneous Information (Vancomycin Consult Active) 1 each N/A UD PRN PRN Reason: Consult Stop: 01/24/25 15:56 Oxycodone/Acetaminophen (Oxycodone/Acetaminophen 10-325 Tab) 1 tab PO BID PRN PRN Reason: Pain,severe Stop: 01/08/25 18:05 Last Admin: 12/26/24 11:16 Dose: 1 tab Pantoprazole Sodium ([facility] 40 Mg Tab) [facility]: 01/25/25 06:29 Last Admin: 12/26/24 06:30 Dose: 40 mg Prednisone (Prednisone 10 Mg Tablet) 10 mg PO DAILY [facility] Stop: 01/25/25 08:59 Last Admin: 12/26/24 11:02 Dose: 10 mg Sacubitril/Valsartan (Valsartan/Sacubitril 26/24mg Tab) 0.5 tab PO [facility] Stop: 01/24/25 20:59 Last Admin: 12/26/24 11:04 Dose: 0.5 tab Sildenafil Citrate (Sildenafil Citrate 20 Mg Tablet) 20 mg PO TID [facility] Stop: 01/24/25 20:59 Last Admin: 12/26/24 11:03 Dose: 20 mg Spironolactone (Spironolactone 12.5 Mg Tab) 12.5 mg PO QAM [facility] Stop: 01/25/25 08:59 Last Admin: 12/26/24 11:03 Dose: 12.5 mg Sulfasalazine (Sulfasalazine 500 Mg Tablet) 1,000 mg PO BID [facility] Stop: 01/24/25 20:59 Last Admin: 12/26/24 11:03 Dose: 1,000 mg Umeclidinium/Vilanterol (Umeclidinium/Vilanterol 62.5/25mcg 7 Puffs/Inhaler) 1 puffs INH DAILY [facility] Stop: 01/25/25 08:59 Last Admin: 12/26/24 11:03 Dose: 1 puffs
[2024-12-26 20:11] LABS: ANTI-Xa, UFH(UnfractionatedHep 0.27 IU/ml (0.3-0.7)
[2024-12-26] MEDS: ACETAMINOPHEN 1,000 MG/100 ML VIAL IV STA (21:17)
[2024-12-27 02:21] LABS: Hematocrit (blood only) 34.2 % (42.0-52.0); Hemoglobin 10.7 g/dl (14.0-18.0); Immature Granulocytes # (auto) 0.04 K/uL (0.01-0.20); Immature Granulocytes % (auto) 0.4 %; Mean Corpuscular Hemoglobin 23.9 pg (25.0-34.0); Mean Corpuscular Volume 76.5 fL (80.0-100.0); Platelet Count 331 K/uL (130-400); RDW Standard Deviation 51.6 fL (36.4-46.3); Red Blood Count 4.47 M/uL (4.70-6.10); White Blood Count 9.82 K/ul (4.8-10.8)
[2024-12-27 02:37] LABS: Anion Gap 7.0 (3-11); Blood Urea Nitrogen 15.0 mg/dl (6-23); Calcium 8.6 mg/dl (8.6-10.3); Carbon Dioxide 23.0 mmol/L (21-32); Chloride 105.0 mmol/L (98-107); Creatinine Clr Calc Pharmacy 82.1 ml/min; Glucose 109.0 mg/dl (70-99(Fasting)); Potassium 3.6 mmol/L (3.5-5.1); Sodium 135.0 mmol/L (136-145)
[2024-12-27 02:55] LABS: ANTI-Xa, UFH(UnfractionatedHep 0.32 IU/ml (0.3-0.7)
[2024-12-27 08:54] LABS: ANTI-Xa, UFH(UnfractionatedHep 0.35 IU/ml (0.3-0.7)
--- NOTE | 2024-12-27 13:18 | Pharmacy Report ---
Pharmacy PK ABX Note - Date of Service December 27, 2024 - Assessment and Plan Assessment 12/27 * L foot culture with pin-point growth, reincubating. Planning for partial amputation of L big toe likely 12/29. * Vanco level drawn today around 1200 resulted at 18.4 mcg/mL. Current regimen is predicted to exceed goal AUC/KENAN of 400-600. Scr trending upward (0.7 -> 0.95 -> 1.15 mg/dL). Will reduce dosing. 12/26 59 year old M receiving vancomycin and zosyn for osteomyelitis of great toe of left foot. PMHx significant for PAD and osteo of right great toe s/p amputation. Xray of left foot on admission concerning for early osteomyelitis. CTA chest positive for PE - patient started on heparin infusion. Cultures pending. Plan Vancomycin * Change to 1250 mg IV q12 hours * Target AUC/KENAN of 400-600 mg/L.hr * est. steady state AUC/KENAN = 555 * Further levels will be dependent on renal function and duration of therapy post amputation Pharmacy will continue to follow and will adjust dose/frequency as necessary. Thank you. Pharmacy has transitioned to AUC monitoring for vancomycin. AUC/KENAN is the preferred PK/PD target and is associated with decreased risk of nephrotoxicity compared to traditional trough targets.
[2024-12-27] MEDS: VANCOMYCIN LEVEL ONE (14:05)
--- NOTE | 2024-12-27 15:32 | Hospitalist Progress Note ---
Date of Service December 27, 2024 Assessment & Plan (1) Chest pain at rest: Plan: Admit to [facility] w/ telemetry Note that patient has not had any of his medications for the past few weeks due to insurance issues. Patient presented for evaluation of chest pain that began last evening In the ED, initial HS troponin 20, EKG without acute ST changes Patient prescribed Eliquis for atrial fibrillation however has not been taking, will check CTA chest Remains stable with minimal chest pain with breathing Echocardiogram showed borderline concentric LVH, LV systolic function is normal, LV wall motion is normal, ejection fraction is 55 to 60%, RV is normal in size a nd function, there is mild annular mitral calcification, mild tricuspid regurgitation and mild aortic regurgitation Remains otherwise medically stable No more chest pain and no shortness of breath at rest Will continue intravenous heparin for now Hold heparin on Sunday morning for the procedure (2) Osteomyelitis of great toe of left foot: Plan: Patient has been following with PCP for ulcer and necrosis of the left great toe. Referral placed for podiatry however patient has not been evaluated. History of PAD and osteomyelitis of the right great toe s/p amputation Left foot x-ray shows Likely early osteomyelitis distally at the first distal phalanx with possible superimposed nondisplaced fracture. S/p Vanco and Zosyn in the ED, will continue with Podiatry consult-appreciate consult with input and recommendation for possible partial amputation of the left big toe Continue current antibiotic and likely surgery on Sunday Left Great toe amputation will be done on Sunday (3) Atrial fibrillation with rapid ventricular response: Plan: Likely due to missed doses of medications S/p metoprolol 5 mg IV X1 in the ED with improvement of rate Resume prior doses of digoxin and metoprolol Resume Eliquis-following surgery Rate is controlled without any symptoms (4) Rheumatoid arthritis: Plan: Hold leflunomide due to osteomyelitis Resume sulfasalazine and prednisone (5) Heart failure with improved ejection fraction (HFimpEF): Plan: History of Systolic congestive heart failure, tachycardic induced, EF 25-30% in the setting of AF RVR 06/2022 Echo 11/2023-EF 50 to 55%, trace MR, moderate TR Resume spironolactone and Lasix, Entresto, beta-tyrone, Jardiance Appears euvolemic (6) ASCVD (arteriosclerotic cardiovascular disease): Plan: Nonobstructive CAD per cardiac catheterization 04/20/2021 Continue ASA, statin, beta-tyrone (7) PAD (peripheral artery disease): Plan: Continue ASA and statin Check LLE arterial Doppler (8) Mood disorder: Plan: Stable, resume divalproex (9) Raynauds disease: Plan: Stable, resume sildenafil (10) COPD (chronic obstructive pulmonary disease): Plan: No signs of acute exacerbation Continue home inhalers DVT PROPHYLAXIS [place] Patient seen in collaboration with Dr. Natarajan. I spent a total of 75 minutes coordinating, documenting, and providing care for this patient excluding time spent in the performance of separately billed services. This included personally reviewing all current laboratories and imaging studies, medication reconciliation, outpatient chart review, and discussion with specialists. Admission and Anticipated Discharge Date Admission Date: December 25, 2024 Subjective 12/26/2024 The patient was seen and examined in medical telemetry unit in presence of the He has been little better he still has chest pain with breathing had minimal shortness of breath No cough and no hemoptysis and no fever and or chills Denies any increase in pain in the left great toe 12/27/2024 The patient was seen and examined in medical telemetry unit He has been feeling much better Chest pain has improved and no shortness of breath No fever and/or chills Review of Systems Review of Systems: ROS per HPI, all other systems reviewed and negative Physical Exam Physical Exam: Lying in bed with minimal distress due to respiratory symptoms as above Constitutional: well developed, well nourished, + ill appearing and + obese Eyes: PERRL, conjunctivae normal, anicteric sclerae ENMT: external ear and nose normal, oropharynx normal Neck: trachea midline, no thyromegaly Respiratory: + respiratory distress Auscultation: lungs clear to auscultation bilaterally Cardiovascular: Rate/Rhythm: regular rate and regular rhythm; not tachycardic Heart Sounds: normal S1 and normal S2; no murmur Extremities: no edema Gastrointestinal (Abdomen): Inspection/Auscultation: normal bowel sounds; abdomen not distended Percussion/Palpation: abdomen soft; abdomen nontender Neurologic: normal touch/pain/proprioception and moves all extremities; no focal motor deficits Lymphatic: no cervical or axillary lymphadenopathy Results & Data Results & Data Vital Signs (Past 12 Hours) Vital Signs Temp Pulse Pulse Resp BP BP Pulse Ox 12/27/24 14:55 82 12/27/24 11:24 36.3 C L 79 20 100/66 93 12/27/24 10:00 12/27/24 08:29 36.3 C L 69 18 93/68 L 94 12/27/24 07:33 72 12/27/24 03:43 36.6 C 69 18 94/61 L 94 O2 Del Method 12/27/24 14:55 12/27/24 11:24 Room Air 12/27/24 10:00 Room Air 12/27/24 08:29 Room Air 12/27/24 07:33 12/27/24 03:43 Room Air Laboratory Results Short CBC 12/27/24 Range/Units 02:06 WBC 9.82 (4.8-10.8) K/ul Hgb 10.7 L (14.0-18.0) g/dl Hct 34.2 L (42.0-52.0) % Plt Count 331 (130-400) K/uL BMP 12/27/24 02:06 Sodium 135 L Potassium 3.6 Chloride 105 Carbon Dioxide 23 BUN 15 Creatinine 1.15 Glucose 109 H Calcium 8.6 Medications Administered Current Inpatient Medications Acetaminophen (Acetaminophen 325 Mg Tab) 650 mg PO Q4H PRN PRN Reason: Pain or Fever Stop: 01/24/25 18:05 Aspirin (Aspirin 81 Mg Ectab) 81 mg PO DAILY [facility] Stop: 01/25/25 08:59 Last Admin: 12/27/24 10:36 Dose: 81 mg Atorvastatin Calcium (Atorvastatin 10 Mg Tab) 10 mg PO DAILY [facility] Stop: 01/25/25 08:59 Last Admin: 12/27/24 10:36 Dose: 10 mg Digoxin (Digoxin 0.125 Mg Tab) [facility] Stop: 01/24/25 18:05 Last Admin: 12/27/24 10:35 Dose: 0.125 mg Divalproex Sodium (Divalproex Extended Release 250 Mg Tabcr) 250 mg PO DAILY [facility] Stop: 01/25/25 08:59 Last Admin: 12/27/24 10:37 Dose: 250 mg Duloxetine HCl (Duloxetine Hcl 30 Mg Cap) [facility] Stop: 01/25/25 08:59 Last Admin: 12/27/24 10:35 Dose: 30 mg Empagliflozin (Empagliflozin 25 Mg Tab) 25 mg PO QAM [facility] Stop: 01/25/25 08:59 Last Admin: 12/27/24 10:39 Dose: 25 mg Fluticasone Furoate (Fluticasone Furoate 100mcg 14 Puffs/Inhaler) 1 puffs INH DAILY [facility] Stop: 01/25/25 08:59 Last Admin: 12/27/24 10:36 Dose: 1 puffs Furosemide (Furosemide 40 Mg Tab) 40 mg PO BID [facility] Stop: 01/24/25 20:59 Last Admin: 12/27/24 10:35 Dose: 40 mg Hydromorphone HCl (Hydromorphone Inj 0.5 Mg/0.5 Ml Syr) 0.5 mg IV Q6H PRN PRN Reason: Breakthrough Pain Stop: 01/09/25 20:31 Heparin Sodium/Dextrose (Heparin 34301 Unit/500 Ml D5w) 25,000 units in 500 mls @ 34 mls/hr IV .[id number] [facility]; Protocol Stop: 01/24/25 18:14 Last Titration: 12/27/24 07:12 Dose: 1,700 units/hr, 34 mls/hr Piperacillin Sod/Tazobactam Sod (Zosyn) 4.5 gm in 100 mls @ 25 mls/hr IV Q8H [facility]; Protocol Stop: 01/01/25 20:59 Last Admin: 12/27/24 14:05 Dose: 25 mls/hr Vancomycin HCl 1,250 mg/ (Sodium Chloride) 275 mls @ 200 mls/hr IV Q12H [facility] Stop: 01/02/25 04:59 Magnesium Oxide (Magnesium Oxide 400 Mg Tab) 400 mg PO QAM [facility] Stop: 01/25/25 08:59 Last Admin: 12/27/24 10:36 Dose: 400 mg Metoprolol Succinate (Metoprolol Succ 50mg Ext Rel Tab) 150 mg PO AMHS [facility] Stop: 01/24/25 20:59 Last Admin: 12/27/24 10:29 Dose: Not Given Miscellaneous Information (Vancomycin Consult Active) 1 each N/A UD PRN PRN Reason: Consult Stop: 01/24/25 15:56 Oxycodone/Acetaminophen (Oxycodone/Acetaminophen 10-325 Tab) 1 tab PO BID PRN PRN Reason: Pain,severe Stop: 01/08/25 18:05 Last Admin: 12/27/24 14:10 Dose: 1 tab Pantoprazole Sodium (Pantoprazole 40 Mg Tab) 40 mg PO DAILYBB [facility] Stop: 01/25/25 06:29 Last Admin: 12/27/24 05:45 Dose: 40 mg Prednisone (Prednisone 10 Mg Tablet) 10 mg PO DAILY [facility] Stop: 01/25/25 08:59 Last Admin: 12/27/24 10:36 Dose: 10 mg Sacubitril/Valsartan (Valsartan/Sacubitril 26/24mg Tab) 0.5 tab PO AMHS [facility] Stop: 01/24/25 20:59 Last Admin: 12/27/24 10:34 Dose: 0.5 tab Sildenafil Citrate (Sildenafil Citrate 20 Mg Tablet) 20 mg PO TID [facility] Stop: 01/24/25 20:59 Last Admin: 12/27/24 15:02 Dose: 20 mg Spironolactone (Spironolactone 12.5 Mg Tab) 12.5 mg PO QAM [facility] Stop: 01/25/25 08:59 Last Admin: 12/27/24 10:37 Dose: 12.5 mg Sulfasalazine (Sulfasalazine 500 Mg Tablet) 1,000 mg PO BID [facility] Stop: 01/24/25 20:59 Last Admin: 12/27/24 10:35 Dose: 1,000 mg Umeclidinium/Vilanterol (Umeclidinium/Vilanterol 62.5/25mcg 7 Puffs/Inhaler) 1 puffs INH DAILY [facility] Stop: 01/25/25 08:59 Last Admin: 12/27/24 10:36 Dose: 1 puffs
[2024-12-27] MEDS: VANCOMYCIN HCL 1,250 MG in SODIUM CHLORIDE 0.9% 250 ML IV SCH (16:53)
[2024-12-28 06:53] LABS: Creatinine Clr Calc Pharmacy 112.3 ml/min
[2024-12-28 06:57] LABS: ANTI-Xa, UFH(UnfractionatedHep 0.35 IU/ml (0.3-0.7)
--- NOTE | 2024-12-28 12:34 | Hospitalist Progress Note ---
Date of Service December 28, 2024 Assessment & Plan (1) Chest pain at rest: Plan: Admit to [facility] w/ telemetry Note that patient has not had any of his medications for the past few weeks due to insurance issues. Patient presented for evaluation of chest pain that began last evening In the ED, initial HS troponin 20, EKG without acute ST changes Patient prescribed Eliquis for atrial fibrillation however has not been taking, will check CTA chest Remains stable with minimal chest pain with breathing Echocardiogram showed borderline concentric LVH, LV systolic function is normal, LV wall motion is normal, ejection fraction is 55 to 60%, RV is normal in size a nd function, there is mild annular mitral calcification, mild tricuspid regurgitation and mild aortic regurgitation Remains otherwise medically stable No more chest pain and no shortness of breath at rest Will continue intravenous heparin for now Hold heparin on Sunday morning for the procedure Respiratory symptoms are better without any chest pain and/or shortness of breath (2) Osteomyelitis of great toe of left foot: Plan: Patient has been following with PCP for ulcer and necrosis of the left great toe. Referral placed for podiatry however patient has not been evaluated. History of PAD and osteomyelitis of the right great toe s/p amputation Left foot x-ray shows Likely early osteomyelitis distally at the first distal phalanx with possible superimposed nondisplaced fracture. S/p Vanco and Zosyn in the ED, will continue with Podiatry consult-appreciate consult with input and recommendation for possible partial amputation of the left big toe Continue current antibiotic and likely surgery on Sunday Left Great toe amputation will be done on Sunday Will have amputation of the left great toe tomorrow (3) Atrial fibrillation with rapid ventricular response: Plan: Likely due to missed doses of medications S/p metoprolol 5 mg IV X1 in the ED with improvement of rate Resume prior doses of digoxin and metoprolol Resume Eliquis-following surgery Rate is controlled without any symptoms Heart rate is minimally elevated at 104 will continue current [id number] was on hold due to low blood pressures (4) Rheumatoid arthritis: Plan: Hold leflunomide due to osteomyelitis Resume sulfasalazine and prednisone (5) Heart failure with improved ejection fraction (HFimpEF): Plan: History of Systolic congestive heart failure, tachycardic induced, EF 25-30% in the setting of AF RVR 06/2022 Echo 11/2023-EF 50 to 55%, trace MR, moderate TR Resume spironolactone and Lasix, Entresto, beta-tyrone, Jardiance Appears euvolemic (6) ASCVD (arteriosclerotic cardiovascular disease): Plan: Nonobstructive CAD per cardiac catheterization 04/20/2021 Continue ASA, statin, beta-tyrone (7) PAD (peripheral artery disease): Plan: Continue ASA and statin Check LLE arterial Doppler (8) Mood disorder: Plan: Stable, resume divalproex (9) Raynauds disease: Plan: Stable, resume sildenafil (10) COPD (chronic obstructive pulmonary disease): Plan: No signs of acute exacerbation Continue home inhalers DVT PROPHYLAXIS Eliquis Admission and Anticipated Discharge Date Admission Date: December 25, 2024 Subjective 12/26/2024 The patient was seen and examined in medical telemetry unit in presence of the He has been little better he still has chest pain with breathing had minimal shortness of breath No cough and no hemoptysis and no fever and or chills Denies any increase in pain in the left great toe 12/27/2024 The patient was seen and examined in medical telemetry unit He has been feeling much better Chest pain has improved and no shortness of breath No fever and/or chills 12/28/2024 The patient was seen and examined in medical telemetry unit He was noted to have low blood pressure but otherwise stable Denies any chest pain and/or palpitation and no increasing shortness of breath Saturating normally on room air Review of Systems Review of Systems: ROS per HPI, all other systems reviewed and negative Physical Exam Physical Exam: Lying in bed with minimal distress due to respiratory symptoms as above Constitutional: well developed, well nourished, + ill appearing and + obese Eyes: PERRL, conjunctivae normal, anicteric sclerae ENMT: external ear and nose normal, oropharynx normal Neck: trachea midline, no thyromegaly Respiratory: + respiratory distress Auscultation: lungs clear to auscultation bilaterally Cardiovascular: Rate/Rhythm: regular rate and regular rhythm; not tachycardic Heart Sounds: normal S1 and normal S2; no murmur Extremities: no edema Gastrointestinal (Abdomen): Inspection/Auscultation: normal bowel sounds; abdomen not distended Percussion/Palpation: abdomen soft; abdomen nontender Neurologic: normal touch/pain/proprioception and moves all extremities; no focal motor deficits Lymphatic: no cervical or axillary lymphadenopathy Results & Data Results & Data Vital Signs (Past 12 Hours) Vital Signs Temp Pulse Pulse Resp BP BP Pulse Ox 12/28/24 12:14 36.6 C 104 H 20 102/70 91 12/28/24 08:24 36.4 C L 91 H 18 91/59 L 93 12/28/24 07:39 91 H 12/28/24 03:36 36.6 C 93 H 20 96/58 L 93 O2 Del Method 12/28/24 12:14 Room Air 12/28/24 08:24 Room Air 12/28/24 07:39 12/28/24 03:36 Room Air Laboratory Results BMP 12/28/24 06:07 Creatinine 0.84 D Medications Administered Current Inpatient Medications Acetaminophen (Acetaminophen 325 Mg Tab) 650 mg PO Q4H PRN PRN Reason: Pain or Fever Stop: 01/24/25 18:05 Aspirin (Aspirin 81 Mg Ectab) 81 mg PO DAILY [facility] Stop: 01/25/25 08:59 Last Admin: 12/28/24 09:02 Dose: 81 mg Atorvastatin Calcium (Atorvastatin 10 Mg Tab) 10 mg PO DAILY [facility] Stop: 01/25/25 08:59 Last Admin: 12/28/24 09:02 Dose: 10 mg Digoxin (Digoxin 0.125 Mg Tab) 0.125 mg PO QAM [facility] Stop: 01/24/25 18:05 Last Admin: 12/28/24 09:02 Dose: 0.125 mg Divalproex Sodium (Divalproex Extended Release 250 Mg Tabcr) 250 mg PO DAILY [facility] Stop: 01/25/25 08:59 Last Admin: 12/28/24 09:03 Dose: 250 mg Duloxetine HCl (Duloxetine Hcl 30 Mg Cap) 30 mg PO QAM [facility] Stop: 01/25/25 08:59 Last Admin: 12/28/24 09:02 Dose: 30 mg Empagliflozin (Empagliflozin 25 Mg Tab) 25 mg PO QAM [facility] Stop: 01/25/25 08:59 Last Admin: 12/28/24 09:03 Dose: 25 mg Fluticasone Furoate (Fluticasone Furoate 100mcg 14 Puffs/Inhaler) 1 puffs INH DAILY [facility] Stop: 01/25/25 08:59 Last Admin: 12/28/24 09:03 Dose: 1 puffs Furosemide (Furosemide 40 Mg Tab) 40 mg PO BID [facility] Stop: 01/24/25 20:59 Last Admin: 12/28/24 08:48 Dose: Not Given Hydromorphone HCl (Hydromorphone Inj 0.5 Mg/0.5 Ml Syr) 0.5 mg IV Q6H PRN PRN Reason: Breakthrough Pain Stop: 01/09/25 20:31 Heparin Sodium/Dextrose (Heparin 51454 Unit/500 Ml D5w) 25,000 units in 500 mls @ 34 mls/hr IV .[id number] [facility]; Protocol Stop: 01/24/25 18:14 Last Admin: 12/28/24 09:01 Dose: 1,700 units/hr, 34 mls/hr Piperacillin Sod/Tazobactam Sod (Zosyn) 4.5 gm in 100 mls @ 25 mls/hr IV Q8H [facility]; Protocol Stop: 01/01/25 20:59 Last Infusion: 12/28/24 09:15 Dose: Infused Vancomycin HCl 1,500 mg/ (Sodium Chloride) 530 mls @ 200 mls/hr IV Q12H [facility] Stop: 01/02/25 04:59 Magnesium Oxide (Magnesium Oxide 400 Mg Tab) 400 mg PO QAM [facility] Stop: 01/25/25 08:59 Last Admin: 12/28/24 09:02 Dose: 400 mg Metoprolol Succinate (Metoprolol Succ 50mg Ext Rel Tab) 150 mg PO AMHS [facility] Stop: 01/24/25 20:59 Last Admin: 12/28/24 08:36 Dose: Not Given Miscellaneous Information (Vancomycin Consult Active) 1 each N/A UD PRN PRN Reason: Consult Stop: 01/24/25 15:56 Naphazoline HCl/Pheniramine Maleate (Naphazolin/Pheniramin Oph Soln 15 Ml Btl) 1 drops OP QID PRN PRN Reason: eye itching/redness Stop: 01/27/25 09:45 Oxycodone/Acetaminophen (Oxycodone/Acetaminophen 10-325 Tab) 1 tab PO BID PRN PRN Reason: Pain,severe Stop: 01/08/25 18:05 Last Admin: 12/28/24 09:04 Dose: 1 tab Pantoprazole Sodium (Pantoprazole 40 Mg Tab) 40 mg PO DAILYBB [facility] Stop: 01/25/25 06:29 Last Admin: 12/28/24 05:13 Dose: 40 mg Prednisone (Prednisone 10 Mg Tablet) 10 mg PO DAILY [facility] Stop: 01/25/25 08:59 Last Admin: 12/28/24 09:02 Dose: 10 mg Sacubitril/Valsartan (Valsartan/Sacubitril 26/24mg Tab) 0.5 tab PO AMHS [facility] Stop: 01/24/25 20:59 Last Admin: 12/28/24 08:37 Dose: Not Given Sildenafil Citrate (Sildenafil Citrate 20 Mg Tablet) 20 mg PO TID [facility] Stop: 01/24/25 20:59 Last Admin: 12/28/24 09:02 Dose: 20 mg Spironolactone (Spironolactone 12.5 Mg Tab) 12.5 mg PO QAM [facility] Stop: 01/25/25 08:59 Last Admin: 12/28/24 09:03 Dose: 12.5 mg Sulfasalazine (Sulfasalazine 500 Mg Tablet) 1,000 mg PO BID [facility] Stop: 01/24/25 20:59 Last Admin: 12/28/24 09:01 Dose: 1,000 mg Umeclidinium/Vilanterol (Umeclidinium/Vilanterol 62.5/25mcg 7 Puffs/Inhaler) 1 puffs INH DAILY [facility] Stop: 01/25/25 08:59 Last Admin: 12/28/24 09:03 Dose: 1 puffs
[2024-12-28] MEDS: NAPHAZOLIN/PHENIRAMIN OPH SOLN 15 ML BTL OP PRN (13:32)
[2024-12-28] MEDS: VANCOMYCIN HCL 1,500 MG in SODIUM CHLORIDE 0.9% 500 ML IV SCH (13:33)
--- NOTE | 2024-12-28 15:01 | Vascular Medicine Consultation ---
Date of Consultation December 28, 2024 Assessment & Plan (1) Osteomyelitis of great toe of left foot: Clinically it appears that he has adequate perfusion to heal a toe amputation. It would be worth checking an ankle-brachial index at some point. I do not think that this should hold of his planned surgery for tomorrow. I will plan to see him after the studies have been obtained and if it looks inadequate for healing I will be sure to communicate with Dr. Lozoya to coordinate. All questions were answered. History of Present Illness Reason for Consultation: L great toe wound Attending Physician: Vianca Natarajan MD History of Present Illness Asked to evaluate this 59-year-old gentleman with an ulceration of the left grea t toe. He tells me has had this for several months. He has undergone previous right great toe amputation. He is being planned for left great toe amputation. Ultrasound of the tibial vessels suggested dampened waveforms. He has a longstanding history of diabetes and is also a current smoker although he tells me he quit 3 days ago. Allergies Allergy/AdvReac Type Severity Reaction Status Date / Time No Known Allergies Allergy Verified 10/24/23 16:32 Home Medications Medication Instructions Recorded Confirmed Type nitroglycerin 0.4 mg sublingual 0.4 mg sublingual UD PRN Chest Pain 08/27/21 12/25/24 History tablet alendronate 70 mg tablet 70 mg PO WK #4 tabs 12/04/23 12/25/24 Rx apixaban 5 mg tablet (Eliquis) 5 mg PO BID #60 tabs 12/04/23 12/25/24 Rx cholecalciferol (vitamin D3) 10 10 mcg PO QAM #30 caps 12/04/23 12/25/24 Rx mcg (400 unit) capsule (Vitamin D3) digoxin 125 mcg (0.125 mg) tablet 0.125 mcg (0.001 x 125 mcg (0.125 12/04/23 12/25/24 Rx mg)) PO QAM #30 tabs duloxetine 30 mg capsule,delayed 30 mg PO QAM #30 caps 12/04/23 12/25/24 Rx release metoprolol succinate 100 mg 150 mg (1.5 x 100 mg) PO AMHS #90 12/04/23 12/25/24 Rx tablet,extended release 24 hr tabs omeprazole 40 mg capsule,delayed 40 mg PO DAILYBB #30 caps 12/04/23 12/25/24 Rx release ondansetron HCl 4 mg tablet 4 mg PO Q8H PRN Nausea #10 tabs 12/04/23 12/25/24 Rx spironolactone 25 mg tablet 12.5 mg (1/2 x 25 mg) PO QAM #15 12/04/23 12/25/24 Rx tabs sulfasalazine 500 mg tablet 1,000 mg (2 x 500 mg) PO BID #120 12/04/23 12/25/24 Rx tabs aspirin 81 mg tablet 81 mg PO DAILY 12/25/24 12/25/24 History atorvastatin 10 mg tablet 10 mg PO DAILY 12/25/24 12/25/24 History divalproex 250 mg tablet,extended 250 mg PO DAILY 12/25/24 12/25/24 History release 24 hr empagliflozin 25 mg tablet 25 mg PO QAM 12/25/24 12/25/24 History (Jardiance) fluticasone fur. 100 mcg-umeclid 1 ea inhalation QAM 12/25/24 12/25/24 History 62.5 mcg-vilant 25 mcg inhalat.powder (Trelegy Ellipta) furosemide 20 mg tablet 40 mg PO DAILY 12/25/24 12/25/24 History leflunomide 10 mg tablet 10 mg PO DAILY 12/25/24 12/25/24 History magnesium oxide 400 mg (241.3 mg 400 mg PO QAM 12/25/24 12/25/24 History magnesium) tablet oxycodone-acetaminophen 10 mg-325 1 tab PO BID PRN Pain,severe 12/25/24 12/25/24 History mg tablet prednisone 5 mg tablet 10 mg PO DAILY RHEUMATOID ARTHRITIS 12/25/24 12/25/24 History sacubitril 24 mg-valsartan 26 mg 1 tab PO AMHS 12/25/24 12/25/24 History tablet (Entresto) sildenafil (pulm.hypertension) 20 20 mg PO TID 12/25/24 12/25/24 History mg tablet Patient History Medical History (Updated 12/26/24 @ 18:26 by Wilmar Carlton MD) Heart failure with improved ejection fraction (HFimpEF) Medical non-compliance COPD (chronic obstructive pulmonary disease) History of osteomyelitis ASCVD (arteriosclerotic cardiovascular disease) Chronic atrial fibrillation Dyslipidemia, goal LDL below 70 Erectile dysfunction Tobacco use disorder Surgical History (Updated 12/25/24 @ 17:14 by PATRICK Phoenix) History of cardiac cath History of colonoscopy Hx of tonsillectomy Family History Other Heart disease Hypertension Social History Smoking Status: Current every day smoker Tobacco Type: Cigarettes Cigarettes Per Day: 1; Second Hand Exposure: Yes; Do You Dip or Chew Tobacco: No; Hx Alcohol Use: No Hx Substance Use: No Preferred Language: Vietnamese Communication Ability: Effective [employer] Super[employer] Required: No Beliefs That Will Affect Care: None Current Living Situation: Family Current Living Situation Comment: Lives at home with girlfriend Hayley, & their child Danica Feels Safe at Home: Yes Assistive Devices: Cane Physical Exam Physical Exam: He has a necrotic tip of the left great toe. Remainder of the foot is pink and well-perfused. I have a difficult time feeling pulses due to some underlying swelling in the foot. Unfortunately no Doppler was available here. Femoral pulses are strong and equal bilaterally. Abdomen is soft and nontender. Results & Data Vital Signs (Past 12 Hours) Vital Signs Temp Pulse Pulse Resp BP BP Pulse Ox 12/28/24 12:14 36.6 C 104 H 20 102/70 91 12/28/24 08:24 36.4 C L 91 H 18 91/59 L 93 12/28/24 07:39 91 H 12/28/24 03:36 36.6 C 93 H 20 96/58 L 93 O2 Del Method 12/28/24 12:14 Room Air 12/28/24 08:24 Room Air 12/28/24 07:39 12/28/24 03:36 Room Air Diagnostic Findings I reviewed the duplex exam which does show some mild dampening of the tibial waveforms but they are still multiphasic. An ankle-brachial index has not yet been obtained. PG Care Time/CCT Total # of Minutes Spent Total Time Spent with Patient: Total time spent is greater than 50% in coordination of care (as documented) at patient's floor/unit and/or counseling patient: Coding Level of Care Code 57182 INT INP/OBS CARE 2/55MIN Diagnoses Osteomyelitis of great toe of left foot M86.9
[2024-12-29 06:51] LABS: ANTI-Xa, UFH(UnfractionatedHep 0.40 IU/ml (0.3-0.7)
[2024-12-29 06:52] LABS: Creatinine Clr Calc Pharmacy 106.2 ml/min
--- NOTE | 2024-12-29 07:37 | Pharmacy Report ---
Pharmacy PK ABX Note - Date of Service December 29, 2024 - Assessment and Plan Assessment 12/29: * Reviewed vancomycin level, level drawn early, not true trough, predicting therapeutic AUC/KENAN at steady state. Renal function stable, continue current regimen. 12/27 * L foot culture with pin-point growth, reincubating. Planning for partial amputation of L big toe likely 12/29. * Vanco level drawn today around 1200 resulted at 18.4 mcg/mL. Current regimen is predicted to exceed goal AUC/KENAN of 400-600. Scr trending upward (0.7 -> 0.95 -> 1.15 mg/dL). Will reduce dosing. 12/26 59 year old M receiving vancomycin and zosyn for osteomyelitis of great toe of left foot. PMHx significant for PAD and osteo of right great toe s/p amputation. Xray of left foot on admission concerning for early osteomyelitis. CTA chest positive for PE - patient started on heparin infusion. Cultures pending. Plan Vancomycin * Change to 1500 mg IV q12 hours * Target AUC/KENAN of 400-600 mg/L.hr * est. steady state AUC/KENAN = 575 * Further levels will be dependent on renal function and duration of therapy post amputation Pharmacy will continue to follow and will adjust dose/frequency as necessary. Thank you. Pharmacy has transitioned to AUC monitoring for vancomycin. AUC/KENAN is the preferred PK/PD target and is associated with decreased risk of nephrotoxicity compared to traditional trough targets.
[2024-12-29] MEDS: LACTATED RINGER'S 1,000 ML IV SCH (08:58)
[2024-12-29] MEDS ORDERED: HYDROmorphone INJ 2 MG/ML SYR/VIAL IV PRN (09:11)
[2024-12-29] MEDS ORDERED: ATROPINE SULFATE 0.1 MG/ML 10ML SYR IV PRN (09:11)
[2024-12-29] MEDS ORDERED: PROMETHAZINE HCL 6.25 MG in SODIUM CHLORIDE 0.9% 50 ML IV PRN (09:11)
[2024-12-29] MEDS ORDERED: KETOROLAC 30 MG/ML VIAL ONE (09:29)
[2024-12-29] MEDS ORDERED: LIDOCAINE 2% 2 ML VIAL/AMP(20MG/ML) INFIL ONE (09:29)
[2024-12-29] MEDS ORDERED: PROPOFOL IV EMULSION 10 MG/ML 20 ML VIAL IV ONE ×2 (09:29→09:33)
[2024-12-29] MEDS ORDERED: ONDANSETRON INJ 2 MG/ML 2 ML VIAL ONE (09:29)
[2024-12-29] MEDS ORDERED: MIDAZOLAM HCL 1 MG/ML 2ML VIAL ONE (09:29)
--- NOTE | 2024-12-29 10:44 | History & Physical Bridge Note ---
Date of Service December 29, 2024 History & Physical Bridge Note I have examined the patient, reviewed the History & Physical and in the interval since the performance of the History & Physical I have noted the following changes of clinical significance: no changes noted
[2024-12-29] MEDS: BUPIVACAINE 0.5 % 5 MG/1 ML MPF 30ML VIAL ONE (11:32)
[2024-12-29] MEDS ORDERED: ePHEDrine sulfate 50 MG/5 ML SYR ONE (11:37)
--- NOTE | 2024-12-29 11:52 | Post Operative Brief Note ---
PG Immediate Post Op with CF Date of Surgery December 29, 2024 Pre & Post Diagnosis Operation Date: 12/29/24 09:40 Pre-Op Diagnosis: osteomyelitis Post-Op Diagnosis: osteomyelitis I identified the patient and participated in the time-out.: Yes Procedure Operation Date: 12/29/24 09:40 Actual Procedures p Left Great Toe Amputation(Left) - Alli Lozoya DPM Surgeon Alli Lozoya DPM Religious Healer none Estimated Blood Loss 5 Findings Consistent with Post-Op Diagnosis Specimens Specimen Description: A. Proximal margin of proximal phalanx left great toe B. left great toe 1. Culture left great toe
--- NOTE | 2024-12-29 12:43 | Hospitalist Progress Note ---
Date of Service December 29, 2024 Assessment & Plan (1) Chest pain at rest: Plan: Admit to [facility] w/ telemetry Note that patient has not had any of his medications for the past few weeks due to insurance issues. Patient presented for evaluation of chest pain that began last evening In the ED, initial HS troponin 20, EKG without acute ST changes Patient prescribed Eliquis for atrial fibrillation however has not been taking, will check CTA chest Remains stable with minimal chest pain with breathing Echocardiogram showed borderline concentric LVH, LV systolic function is normal, LV wall motion is normal, ejection fraction is 55 to 60%, RV is normal in size a nd function, there is mild annular mitral calcification, mild tricuspid regurgitation and mild aortic regurgitation Remains otherwise medically stable No more chest pain and no shortness of breath at rest Will continue intravenous heparin for now Hold heparin on Sunday morning for the procedure Respiratory symptoms are better without any chest pain and/or shortness of breath Heparin is on hold due to left great toe amputation Will restart heparin as soon as okay from the commercial roofer (2) Osteomyelitis of great toe of left foot: Plan: Patient has been following with PCP for ulcer and necrosis of the left great toe. Referral placed for podiatry however patient has not been evaluated. History of PAD and osteomyelitis of the right great toe s/p amputation Left foot x-ray shows Likely early osteomyelitis distally at the first distal phalanx with possible superimposed nondisplaced fracture. S/p Vanco and Zosyn in the ED, will continue with Podiatry consult-appreciate consult with input and recommendation for possible partial amputation of the left big toe Continue current antibiotic and likely surgery on Sunday Left Great toe amputation will be done on Sunday Will have amputation of the left great toe tomorrow Status post amputation of the left great toe on 12/29/2024management will depend on commercial roofer seen Likely discharge on oral antibiotic course 14 days in total (3) Atrial fibrillation with rapid ventricular response: Plan: Likely due to missed doses of medications S/p metoprolol 5 mg IV X1 in the ED with improvement of rate Resume prior doses of digoxin and metoprolol Resume Eliquis-following surgery Rate is controlled without any symptoms Heart rate is minimally elevated at 104 will continue current [id number] was on hold due to low blood pressures Rate is controlled (4) Rheumatoid arthritis: Plan: Hold leflunomide due to osteomyelitis Resume sulfasalazine and prednisone (5) Heart failure with improved ejection fraction (HFimpEF): Plan: History of Systolic congestive heart failure, tachycardic induced, EF 25-30% in the setting of AF RVR 06/2022 Echo 11/2023-EF 50 to 55%, trace MR, moderate TR Resume spironolactone and Lasix, Entresto, beta-tyrone, Jardiance Appears euvolemic (6) ASCVD (arteriosclerotic cardiovascular disease): Plan: Nonobstructive CAD per cardiac catheterization 04/20/2021 Continue ASA, statin, beta-tyrone (7) PAD (peripheral artery disease): Plan: Continue ASA and statin Check LLE arterial Doppler- no significant findings (8) Mood disorder: Plan: Stable, resume divalproex (9) Raynauds disease: Plan: Stable, resume sildenafil (10) COPD (chronic obstructive pulmonary disease): Plan: No signs of acute exacerbation Continue home inhalers DVT PROPHYLAXIS Eliquis Admission and Anticipated Discharge Date Admission Date: December 25, 2024 Subjective 12/26/2024 The patient was seen and examined in medical telemetry unit in presence of the He has been little better he still has chest pain with breathing had minimal shortness of breath No cough and no hemoptysis and no fever and or chills Denies any increase in pain in the left great toe 12/27/2024 The patient was seen and examined in medical telemetry unit He has been feeling much better Chest pain has improved and no shortness of breath No fever and/or chills 12/28/2024 The patient was seen and examined in medical telemetry unit He was noted to have low blood pressure but otherwise stable Denies any chest pain and/or palpitation and no increasing shortness of breath Saturating normally on room air 12/29/2024 The patient was seen and examined in medical telemetry unit He is status post left great toe amputation on 12/29/2024 Denies any significant symptoms Review of Systems Review of Systems: ROS per HPI, all other systems reviewed and negative Physical Exam Physical Exam: Lying in bed with minimal distress due to respiratory symptoms as above Constitutional: well developed, well nourished, + ill appearing and + obese Eyes: PERRL, conjunctivae normal, anicteric sclerae ENMT: external ear and nose normal, oropharynx normal Neck: trachea midline, no thyromegaly Respiratory: + respiratory distress Auscultation: lungs clear to auscultation bilaterally Cardiovascular: Rate/Rhythm: regular rate and regular rhythm; not tachycardic Heart Sounds: normal S1 and normal S2; no murmur Extremities: no edema Gastrointestinal (Abdomen): Inspection/Auscultation: normal bowel sounds; abdomen not distended Percussion/Palpation: abdomen soft; abdomen nontender Musculoskeletal: No acute arthritis involving any of the joint Neurologic: normal touch/pain/proprioception and moves all extremities; no focal motor deficits Lymphatic: no cervical or axillary lymphadenopathy Results & Data Results & Data Vital Signs (Past 12 Hours) Vital Signs Temp Pulse Pulse Pulse Resp BP BP 12/29/24 12:32 36.5 C 71 16 120/71 12/29/24 12:25 36.5 C 68 15 102/66 12/29/24 12:15 69 13 105/74 12/29/24 12:05 76 17 113/79 12/29/24 11:56 36.3 C L 62 16 125/72 12/29/24 10:57 79 12/29/24 08:49 36.7 C 72 16 116/62 12/29/24 07:18 36.5 C 74 16 105/69 12/29/24 05:42 82 12/29/24 03:46 36.7 C 79 20 95/57 L Pulse Ox O2 Del Method O2 Flow Rate 12/29/24 12:32 91 Room Air 12/29/24 12:25 93 Room Air 12/29/24 12:15 92 Room Air 12/29/24 12:05 88 L Room Air 12/29/24 11:56 98 Oxymask 4 12/29/24 10:57 12/29/24 08:49 93 Room Air 12/29/24 07:18 98 Room Air 12/29/24 05:42 12/29/24 03:46 92 Room Air Laboratory Results BMP 12/29/24 06:02 Creatinine 0.89 Medications Administered Current Inpatient Medications Acetaminophen (Acetaminophen 325 Mg Tab) 650 mg PO Q4H PRN PRN Reason: Pain or Fever Stop: 01/24/25 18:05 Aspirin (Aspirin 81 Mg Ectab) 81 mg PO DAILY [facility] Stop: 01/25/25 08:59 Last Admin: 12/29/24 10:56 Dose: Not Given Atorvastatin Calcium (Atorvastatin 10 Mg Tab) [address] [facility] Stop: 01/25/25 08:59 Last Admin: 12/29/24 10:57 Dose: Not Given Atropine Sulfate (Atropine Sulfate 0.1 Mg/Ml 10ml Syr) 0.5 mg IV Q1M PRN PRN Reason: PACU Use-HR<40 &/or Bradycardi Stop: 12/29/24 17:11 Digoxin (Digoxin 0.125 Mg Tab) 0.[address] [facility] Stop: 01/24/25 18:05 Last Admin: 12/29/24 10:57 Dose: Not Given Divalproex Sodium (Divalproex Extended Release 250 Mg Tabcr) [address] [facility] Stop: 01/25/25 08:59 Last Admin: 12/29/24 10:57 Dose: Not Given Duloxetine HCl (Duloxetine Hcl 30 Mg Cap) [address] [facility] Stop: 01/25/25 08:59 Last Admin: 12/29/24 10:57 Dose: Not Given Empagliflozin (Empagliflozin 25 Mg Tab) [address] [facility] Stop: 01/25/25 08:59 Last Admin: 12/29/24 10:58 Dose: Not Given Ephedrine Sulfate (Ephedrine Sulfate 50 Mg/Ml Amp) 5 mg IV Q5M PRN PRN Reason: PACU Use Only-SBP<90 mmHg Stop: 12/29/24 17:11 Fluticasone Furoate (Fluticasone Furoate 100mcg 14 Puffs/Inhaler) [address] [facility] Stop: 01/25/25 08:59 Last Admin: 12/29/24 10:58 Dose: Not Given Furosemide (Furosemide 40 Mg Tab) [address] [facility] Stop: 01/24/25 20:59 Last Admin: 12/29/24 10:59 Dose: Not Given Hydromorphone HCl (Hydromorphone Inj 0.5 Mg/0.5 Ml Syr) 0.5 mg IV Q6H PRN PRN Reason: Breakthrough Pain Stop: 01/09/25 20:31 Hydromorphone HCl (Hydromorphone Inj 2 Mg/Ml Syr/Vial) 0.5 mg IV Q5M PRN PRN Reason: PACU Use Only-Pain Stop: 12/29/24 17:11 Heparin Sodium/Dextrose (Heparin 84765 Unit/500 Ml D5w) 25,000 units in 500 mls @ 0 mls/hr IV .Q0M [facility]; Protocol Stop: 01/24/25 18:14 Last Titration: 12/29/24 07:28 Dose: 0 units/hr, 0 mls/hr Piperacillin Sod/Tazobactam Sod (Zosyn) 4.5 gm in 100 mls @ 25 mls/hr IV Q8H [facility]; Protocol Stop: 01/01/25 20:59 Last Infusion: 12/29/24 11:10 Dose: Infused Vancomycin HCl 1,500 mg/ (Sodium Chloride) 530 mls @ 200 mls/hr IV Q12H [facility] Stop: 01/02/25 04:59 Last Infusion: 12/29/24 04:46 Dose: Infused Lactated Ringer's (Lr) 1,000 mls @ 15 mls/hr IV .Q24H [facility] Stop: 01/01/25 08:59 Last Infusion: 12/29/24 11:02 Dose: Infused Promethazine HCl 6.25 mg/ (Sodium Chloride) 50.25 mls @ 204 mls/hr IV ONCE PRN PRN Reason: PACU Use Only-Nausea/Vomiting Stop: 12/29/24 17:11 Magnesium Oxide (Magnesium Oxide 400 Mg Tab) [address] [facility] Stop: 01/25/25 08:59 Last Admin: 12/29/24 10:59 Dose: Not Given Metoprolol Succinate (Metoprolol Succ 50mg Ext Rel Tab) [address] [facility] Stop: 01/24/25 20:59 Last Admin: 12/29/24 08:22 Dose: Not Given Miscellaneous Information (Vancomycin Consult Active) 1 each N/A UD PRN PRN Reason: Consult Stop: 01/24/25 15:56 Naphazoline HCl/Pheniramine Maleate (Naphazolin/Pheniramin Oph Soln 15 Ml Btl) 1 drops OP QID PRN PRN Reason: eye itching/redness Stop: 01/27/25 09:45 Last Admin: 12/28/24 13:32 Dose: 1 drops Oxycodone/Acetaminophen (Oxycodone/Acetaminophen 10-325 Tab) 1 tab PO BID PRN PRN Reason: Pain,severe Stop: 01/08/25 18:05 Last Admin: 12/28/24 09:04 Dose: 1 tab Pantoprazole Sodium (Pantoprazole 40 Mg Tab) [address] [facility] Stop: 01/25/25 06:29 Last Admin: 12/29/24 05:13 Dose: 40 mg Prednisone (Prednisone 10 Mg Tablet) [address] [facility] Stop: 01/25/25 08:59 Last Admin: 12/29/24 10:59 Dose: Not Given Sacubitril/Valsartan (Valsartan/Sacubitril 26/24mg Tab) 0.[address] [facility] Stop: 01/24/25 20:59 Last Admin: 12/29/24 10:58 Dose: Not Given Sildenafil Citrate (Sildenafil Citrate 20 Mg Tablet) [address] [facility] Stop: 01/24/25 20:59 Last Admin: 12/29/24 10:59 Dose: Not Given Spironolactone (Spironolactone 12.5 Mg Tab) 12.[address] [facility] Stop: 01/25/25 08:59 Last Admin: 12/29/24 10:59 Dose: Not Given Sulfasalazine (Sulfasalazine 500 Mg Tablet) 1,[address] [facility] Stop: 01/24/25 20:59 Last Admin: 12/29/24 10:59 Dose: Not Given Umeclidinium/Vilanterol (Umeclidinium/Vilanterol 62.5/25mcg 7 Puffs/Inhaler) [address] [facility] Stop: 01/25/25 08:59 Last Admin: 12/29/24 10:58 Dose: Not Given
--- NOTE | 2024-12-29 14:23 | Anesthesiology Progress Note ---
Date of Service December 29, 2024 Anesthesia Post Procedure Vital Signs Vital Signs: Temp Pulse Pulse Pulse Resp BP BP 12/29/24 13:30 77 12/29/24 13:00 36.8 C 77 16 109/70 12/29/24 12:32 36.5 C 71 16 120/71 12/29/24 12:25 36.5 C 68 15 102/66 12/29/24 12:15 69 13 105/74 12/29/24 12:05 76 17 113/79 12/29/24 11:56 36.3 C L 62 16 125/72 12/29/24 10:57 79 12/29/24 08:49 36.7 C 72 16 116/62 12/29/24 07:18 36.5 C 74 16 105/69 12/29/24 05:42 82 12/29/24 03:46 36.7 C 79 20 95/57 L 12/29/24 00:17 36.6 C 89 20 105/65 12/28/24 22:04 79 12/28/24 20:06 36.5 C 90 20 109/70 12/28/24 15:37 36.6 C 100 H 20 104/67 Pulse Ox O2 Del Method O2 Flow Rate 12/29/24 13:30 12/29/24 13:00 94 Room Air 12/29/24 12:32 91 Room Air 12/29/24 12:25 93 Room Air 12/29/24 12:15 92 Room Air 12/29/24 12:05 88 L Room Air 12/29/24 11:56 98 Oxymask 4 12/29/24 10:57 12/29/24 08:49 93 Room Air 12/29/24 07:18 98 Room Air 12/29/24 05:42 12/29/24 03:46 92 Room Air 12/29/24 00:17 95 Room Air 12/28/24 22:04 12/28/24 20:06 96 Room Air 12/28/24 15:37 96 Room Air Pain Intensity Left Lower Great Toe: Pain Intensity: 4 Transfer of Care Handoff Completed per policy Notes Mental Status: alert / awake / arousable and participated in evaluation Nausea / Vomiting: adequately controlled Pain: adequately controlled Airway Patency, RR, SpO2: stable & adequate BP & HR: stable & adequate Hydration State: stable & adequate Anesthetic Complications: no major complications apparent and Pt Satisfied with anesthetic care
[2024-12-29] MEDS: HYDROmorphone INJ 0.5 MG/0.5 ML SYR IV PRN (15:09)
[2024-12-30 03:31] VITALS: TEMP 97.7
[2024-12-30 05:54] LABS: Hematocrit (blood only) 41.6 % (42.0-52.0); Hemoglobin 12.7 g/dl (14.0-18.0); Immature Granulocytes # (auto) 0.03 K/uL (0.01-0.20); Immature Granulocytes % (auto) 0.3 %; Mean Corpuscular Hemoglobin 23.6 pg (25.0-34.0); Mean Corpuscular Volume 77.5 fL (80.0-100.0); Platelet Count 416 K/uL (130-400); RDW Standard Deviation 51.9 fL (36.4-46.3); Red Blood Count 5.37 M/uL (4.70-6.10); White Blood Count 9.12 K/ul (4.8-10.8)
[2024-12-30 06:11] LABS: Anion Gap 9.0 (3-11); Blood Urea Nitrogen 16.0 mg/dl (6-23); Calcium 9.5 mg/dl (8.6-10.3); Carbon Dioxide 29.0 mmol/L (21-32); Chloride 101.0 mmol/L (98-107); Creatinine Clr Calc Pharmacy 75.0 ml/min; Glucose 102.0 mg/dl (70-99(Fasting)); Magnesium 2.1 mg/dl (1.7-2.4); Potassium 4.0 mmol/L (3.5-5.1); Sodium 139.0 mmol/L (136-145)
[2024-12-30 06:19] LABS: ANTI-Xa, UFH(UnfractionatedHep 0.44 IU/ml (0.3-0.7)
--- NOTE | 2024-12-30 07:42 | Operative Report ---
PG Post Operative Report Pre & Post Diagnosis Operation Date: 12/29/24 09:40 Pre-Op Diagnosis: osteomyelitis Post-Op Diagnosis: osteomyelitis I identified the patient and participated in the time-out.: Yes Procedure Operation Date: 12/29/24 09:40 Actual Procedures p Left Great Toe Amputation(Left) - Alli Lozoya DPM Surgeon Alli Lozoya DPM Deputy Insurance Commissioner none Estimated Blood Loss 5 Findings Consistent with Post-Op Diagnosis Specimens Pathology: 1. Proximal margin pathology proximal phalanx left hallux 2. Left hallux for gross path Culture: 1. Culture bone distal phalanx left hallux Drains None Complications None Description of Procedure Patient brought the operating room placed on the operating table in supine position. Following general anesthesia local anesthesia pain about the patient's left first ray utilizing a total of 10 cc of half percent Marcaine plain in a modified Fonseca block fashion. Timeout is held confirming correct patient, side, site, procedure with all necessary parties confirming. Left foot is scrubbed prepped and draped to the level of the ankle in usual aseptic fashion. Attention is directed to the left hallux was noted to have a distal ulceration with surrounding necrotic tissue. Wound of the distal aspect of the toe probes to bone of the proximal phalanx which is noted to be soft and friable. Scant purulent drainage from the distal toe. Distal aspect of the toe was covered without procedure. A fishmouth incision is planned about the proximal half of the hallux with Skin Skribe. Incision is made with a 15 blade and carried directly to the level of bone following the planned incision. Is noted that there is some avascular appearing nonviable tissue within the incision and the incision was made to remove more proximal to reach a healthier level of soft tissue with better perfusion. The hallux was disarticulated at the metatarsophalangeal joint due to proximal nature of the amputation. Adequate bleeding is noted at the level amputation site and decision made to elevated tourniquet to 250 mmHg for the remainder of the procedure to allow visualization of the soft tissues identification of any nonviable or necrotic tissue within the wound bed without electrocautery. Tourniquet is released at 6 minutes total tourniquet time and a prompt hyperemic response is noted left foot and wound bed. On the back table sagittal saw was utilized to resect a proximal margin from the proximal phalanx of the left hallux. Remainder of the left hallux is sent for gross pathologic analysis. A rongeur was utilized to collect bone sample from the distal phalanx of the hallux which is sent for culture and sensitivity. Wound is flushed with copious amounts of normal sterile saline. Tendinous structures within the wound bed are pulled distally cut and allowed to retract into more proximal soft tissue. Hemostasis is achieved with direct pressure and electrocautery. Deep soft tissues reapproximated over the first metatarsal head with a 3-0 Vicryl suture in simple interrupted fashion. Wound edges were reapproximated and closed with 4-0 nylon suture in simple interrupted fashion. Foot is cleansed with normal sterile saline dried and dressed with Betadine soaked Adaptic 4 x 4 fluff gauze ABD pad Sepideh and lightly applied Jung bandage to hold dressings in place. Patient tolerated the procedure anesthesia well. He is transferred recovery room with vital signs stable and vascular status intact to the left foot. Following a brief period of postoperative monitoring in recovery room patient is transferred to his bed on the floor for ongoing medical management, IV anti biotics and monitoring. He is encouraged to minimize weightbearing over the next 24 hours. Following first dressing change okay to weight-bear as tolerated in postoperative shoe to the left foot. margin of tissue between the known area of bone infection and the amputation is significant enough that I have relative confidence in a surgical cure for osteomyelitis through this procedure. Would recommend continued monitoring of the patient over the next 24 hours and until first postoperative dressing change prior to consideration for discharge which should be reasonable on p.o. antibiotics from a podiatry standpoint. I attest to the content of the Intraoperative Record and any orders documented therein. Any exceptions are noted below.
[2024-12-30] MEDS: APIXABAN 5 MG TABLET PO SCH (08:12)
[2024-12-30] MEDS ORDERED: STOP ORDER: HEPARIN INFUSION ONE (08:59)
[2024-12-30] MEDS: ACETAMINOPHEN 325 MG TAB PO PRN (09:22)
[2024-12-30 11:12] VITALS: BP 102/65
[2024-12-30] MEDS: AMOXICILLIN/CLAVULANATE 875 MG TAB PO ONE (11:25)
--- NOTE | 2024-12-30 11:50 | Hospitalist Progress Note ---
Date of Service December 30, 2024 Assessment & Plan (1) Chest pain at rest: Plan: Admit to [facility] w/ telemetry Note that patient has not had any of his medications for the past few weeks due to insurance issues. Patient presented for evaluation of chest pain that began last evening In the ED, initial HS troponin 20, EKG without acute ST changes Patient prescribed Eliquis for atrial fibrillation however has not been taking, will check CTA chest Remains stable with minimal chest pain with breathing Echocardiogram showed borderline concentric LVH, LV systolic function is normal, LV wall motion is normal, ejection fraction is 55 to 60%, RV is normal in size a nd function, there is mild annular mitral calcification, mild tricuspid regurgitation and mild aortic regurgitation Remains otherwise medically stable No more chest pain and no shortness of breath at rest Will continue intravenous heparin for now Hold heparin on Sunday morning for the procedure Respiratory symptoms are better without any chest pain and/or shortness of breath Heparin is on hold due to left great toe amputation Will restart heparin as soon as okay from the category consultant Heparin has been discontinued and Eliquis has been started for pulmonary embolism and A-fib management He denies any more chest pain and/or palpitation and he will have a 2 steps O2 saturation test prior to discharge (2) Osteomyelitis of great toe of left foot: Plan: Patient has been following with PCP for ulcer and necrosis of the left great toe. Referral placed for podiatry however patient has not been evaluated. History of PAD and osteomyelitis of the right great toe s/p amputation Left foot x-ray shows Likely early osteomyelitis distally at the first distal phalanx with possible superimposed nondisplaced fracture. S/p Vanco and Zosyn in the ED, will continue with Podiatry consult-appreciate consult with input and recommendation for possible partial amputation of the left big toe Continue current antibiotic and likely surgery on Sunday Left Great toe amputation will be done on Sunday Will have amputation of the left great toe tomorrow Status post amputation of the left great toe on 12/29/2024management will depend on category consultant seen Likely discharge on oral antibiotic course 14 days in total Has had amputation of the left great toe and management and dressing will be as per the category consultant in the wound care He will be given Augmentin for the next 7 days to continue (3) Atrial fibrillation with rapid ventricular response: Plan: Likely due to missed doses of medications S/p metoprolol 5 mg IV X1 in the ED with improvement of rate Resume prior doses of digoxin and metoprolol Resume Eliquis-following surgery Rate is controlled without any symptoms Heart rate is minimally elevated at 104 will continue current [id number] was on hold due to low blood pressures Rate is controlled (4) Rheumatoid arthritis: Plan: Hold leflunomide due to osteomyelitis Resume sulfasalazine and prednisone (5) Heart failure with improved ejection fraction (HFimpEF): Plan: History of Systolic congestive heart failure, tachycardic induced, EF 25-30% in the setting of AF RVR 06/2022 Echo 11/2023-EF 50 to 55%, trace MR, moderate TR Resume spironolactone and Lasix, Entresto, beta-tyrone, Jardiance Appears euvolemic (6) ASCVD (arteriosclerotic cardiovascular disease): Plan: Nonobstructive CAD per cardiac catheterization 04/20/2021 Continue ASA, statin, beta-tyrone (7) PAD (peripheral artery disease): Plan: Continue ASA and statin Check LLE arterial Doppler- no significant findings (8) Mood disorder: Plan: Stable, resume divalproex (9) Raynauds disease: Plan: Stable, resume sildenafil (10) COPD (chronic obstructive pulmonary disease): Plan: No signs of acute exacerbation Continue home inhalers DVT PROPHYLAXIS Eliquis Admission and Anticipated Discharge Date Admission Date: December 25, 2024 Subjective 12/26/2024 The patient was seen and examined in medical telemetry unit in presence of the He has been little better he still has chest pain with breathing had minimal shortness of breath No cough and no hemoptysis and no fever and or chills Denies any increase in pain in the left great toe 12/27/2024 The patient was seen and examined in medical telemetry unit He has been feeling much better Chest pain has improved and no shortness of breath No fever and/or chills 12/28/2024 The patient was seen and examined in medical telemetry unit He was noted to have low blood pressure but otherwise stable Denies any chest pain and/or palpitation and no increasing shortness of breath Saturating normally on room air 12/29/2024 The patient was seen and examined in medical telemetry unit He is status post left great toe amputation on 12/29/2024 Denies any significant symptoms 12/30/2024 The patient was seen and examined in medical telemetry unit He has been much better and denies any significant symptoms He has been ambulating with minimal difficulties and he will be discharged home this afternoon Review of Systems Review of Systems: ROS per HPI, all other systems reviewed and negative Physical Exam Physical Exam: Lying in bed with minimal distress due to respiratory symptoms as above Constitutional: well developed, well nourished, + ill appearing and + obese Eyes: PERRL, conjunctivae normal, anicteric sclerae ENMT: external ear and nose normal, oropharynx normal Neck: trachea midline, no thyromegaly Respiratory: + respiratory distress Auscultation: lungs clear to auscultation bilaterally Cardiovascular: Rate/Rhythm: regular rate and regular rhythm; not tachycardic Heart Sounds: normal S1 and normal S2; no murmur Extremities: no edema Gastrointestinal (Abdomen): Inspection/Auscultation: normal bowel sounds; abdomen not distended Percussion/Palpation: abdomen soft; abdomen nontender Musculoskeletal: Minimal pain at the surgical site but no acute arthritis involving any of the joint Neurologic: normal touch/pain/proprioception and moves all extremities; no focal motor deficits Lymphatic: no cervical or axillary lymphadenopathy Results & Data Results & Data Vital Signs (Past 12 Hours) Vital Signs Temp Pulse Pulse Resp BP Pulse Ox O2 Del Method 12/30/24 11:11 36.5 C 85 18 102/65 90 Room Air 12/30/24 08:13 77 12/30/24 07:23 36.5 C 77 18 107/69 95 Room Air 12/30/24 05:48 79 12/30/24 03:30 36.5 C 67 18 104/61 96 Room Air Laboratory Results Short CBC 12/30/24 Range/Units 05:28 WBC 9.12 (4.8-10.8) K/ul Hgb 12.7 L (14.0-18.0) g/dl Hct 41.6 L (42.0-52.0) % Plt Count 416 H (130-400) K/uL BMP 12/30/24 05:28 Sodium 139 Potassium 4.0 Chloride 101 Carbon Dioxide 29 BUN 16 Creatinine 1.26 D Glucose 102 H Calcium 9.5 Medications Administered Current Inpatient Medications Acetaminophen (Acetaminophen 325 Mg Tab) 650 mg PO Q4H PRN PRN Reason: Pain or Fever Stop: 01/24/25 18:05 Last Admin: 12/30/24 09:22 Dose: 650 mg Amoxicillin/Clavulanate Potassium (Amoxicillin/Clavulanate 875 Mg Tab) 1 tab PO BIDM [facility]; Protocol Stop: 01/06/25 16:59 Apixaban (Apixaban 5 Mg Tablet) 10 mg PO BID [facility] Stop: 01/05/25 21:01 Last Admin: 12/30/24 08:12 Dose: 10 mg Apixaban (Apixaban 5 Mg Tablet) 5 mg PO BID [facility] Stop: 02/05/25 08:59 Aspirin (Aspirin 81 Mg Ectab) 81 mg PO DAILY [facility] Stop: 01/25/25 08:59 Last Admin: 12/30/24 08:13 Dose: 81 mg Atorvastatin Calcium (Atorvastatin 10 Mg Tab) 10 mg PO DAILY [facility] Stop: 01/25/25 08:59 Last Admin: 12/30/24 08:14 Dose: 10 mg Digoxin (Digoxin 0.125 Mg Tab) 0.125 mg PO QAM [facility] Stop: 01/24/25 18:05 Last Admin: 12/30/24 08:13 Dose: 0.125 mg Divalproex Sodium (Divalproex Extended Release 250 Mg Tabcr) 250 mg PO DAILY [facility] Stop: 01/25/25 08:59 Last Admin: 12/30/24 08:12 Dose: 250 mg Duloxetine HCl (Dul[facility]etine Hcl 30 Mg Cap) [facility] [place] [place] Stop: 01/25/25 08:59 Last Admin: 12/30/24 08:13 Dose: 30 mg Empagliflozin (Empagliflozin 25 Mg Tab) [facility] [place] [place] Stop: 01/25/25 08:59 Last Admin: 12/30/24 08:13 Dose: 25 mg Fluticasone Furoate (Fluticasone Furoate 100mcg 14 Puffs/Inhaler) 1 puffs INH DAILY [facility] Stop: 01/25/25 08:59 Last Admin: 12/30/24 08:15 Dose: 1 puffs Furosemide (Furosemide 40 Mg Tab) 40 mg PO BID [facility] Stop: 01/24/25 20:59 Last Admin: 12/30/24 08:14 Dose: 40 mg Hydromorphone HCl (Hydromorphone Inj 0.5 Mg/0.5 Ml Syr) 0.5 mg IV Q6H PRN PRN Reason: Breakthrough Pain Stop: 01/09/25 20:31 Last Admin: 12/30/24 08:06 Dose: 0.5 mg Lactated Ringer's (Lr) 1,000 mls @ 15 mls/hr IV .Q24H [facility] Stop: 01/01/25 08:59 Last Infusion: 12/29/24 11:02 Dose: Infused Magnesium Oxide (Magnesium Oxide 400 Mg Tab) 400 mg PO QAM [facility] Stop: 01/25/25 08:59 Last Admin: 12/30/24 08:13 Dose: 400 mg Metoprolol Succinate (Metoprolol Succ 50mg Ext Rel Tab) 150 mg PO AMHS [facility] Stop: 01/24/25 20:59 Last Admin: 12/30/24 08:14 Dose: 150 mg Naphazoline HCl/Pheniramine Maleate (Naphazolin/Pheniramin Oph Soln 15 Ml Btl) 1 drops OP QID PRN PRN Reason: eye itching/redness Stop: 01/27/25 09:45 Last Admin: 12/30/24 08:15 Dose: 1 drops Oxycodone/Acetaminophen (Oxycodone/Acetaminophen 10-325 Tab) 1 tab PO BID PRN PRN Reason: Pain,severe Stop: 01/08/25 18:05 Last Admin: 12/30/24 07:14 Dose: 1 tab Pantoprazole Sodium (Pantoprazole 40 Mg Tab) 40 mg PO DAILYBB [facility] Stop: 01/25/25 06:29 Last Admin: 12/30/24 05:52 Dose: 40 mg Prednisone (Prednisone 10 Mg Tablet) 10 mg PO DAILY [facility] Stop: 01/25/25 08:59 Last Admin: 12/30/24 08:13 Dose: 10 mg Sacubitril/Valsartan (Valsartan/Sacubitril 26/24mg Tab) 0.5 tab PO AMHS [facility] Stop: 01/24/25 20:59 Last Admin: 12/30/24 08:13 Dose: 0.5 tab Sildenafil Citrate (Sildenafil Citrate 20 Mg Tablet) 20 mg PO TID [facility] Stop: 01/24/25 20:59 Last Admin: 12/30/24 08:13 Dose: 20 mg Spironolactone (Spironolactone 12.5 Mg Tab) 12.5 mg PO QAM [facility] Stop: 01/25/25 08:59 Last Admin: 12/30/24 08:12 Dose: 12.5 mg Sulfasalazine (Sulfasalazine 500 Mg Tablet) 1,000 mg PO BID [facility] Stop: 01/24/25 20:59 Last Admin: 12/30/24 08:14 Dose: 1,000 mg Umeclidinium/Vilanterol (Umeclidinium/Vilanterol 62.5/25mcg 7 Puffs/Inhaler) 1 puffs INH DAILY [facility] Stop: 01/25/25 08:59 Last Admin: 12/30/24 08:14 Dose: 1 puffs
--- NOTE | 2024-12-30 13:08 | Vascular Medicine ProgressNote ---
Date of Service December 30, 2024 Assessment & Plan (1) Osteomyelitis of great toe of left foot: Plan: Case discussed with Dr. Lozoya. Good bleeding/perfusion noted at time of amputation. No indication for revascularization at this time. If wound fails to progress, please reconsult and will proceed from there. Will sign off. Admission and Anticipated Discharge Date Admission Date: December 25, 2024 Subjective Awake, alert, comfortable Physical Exam Physical Exam: Dressing in place from recent surgery Results & Data Vital Signs (Past 12 Hours) Vital Signs Temp Pulse Pulse Pulse Pulse Resp Resp 12/30/24 12:33 88 80 20 12/30/24 11:11 36.5 C 85 18 12/30/24 08:13 77 12/30/24 07:23 36.5 C 77 18 12/30/24 05:48 79 12/30/24 03:30 36.5 C 67 18 Resp BP Pulse Ox Pulse Ox Pulse Ox O2 Del Method 12/30/24 12:33 20 94 96 12/30/24 11:11 102/65 90 Room Air 12/30/24 08:13 12/30/24 07:23 107/69 95 Room Air 12/30/24 05:48 12/30/24 03:30 104/61 96 Room Air PG Care Time/CCT Total # of Minutes Spent Total Time Spent with Patient: Total time spent is greater than 50% in coordination of care (as documented) at patient's floor/unit and/or counseling patient: Coding Level of Care Code None Diagnoses Osteomyelitis of great toe of left foot M86.9
[2024-12-30 13:14] VITALS: PULSE 85; RESP 18; O2SAT 90
--- NOTE | 2024-12-30 13:54 | Podiatry Progress Note ---
Date of Service December 30, 2024 Assessment & Plan (1) Osteomyelitis of great toe of left foot: (2) PAD (peripheral artery disease): (3) Cellulitis of left foot: Plan Postop day 1 status post left hallux amputation. Wound edges well-approximated all sutures intact. No signs of dehiscence or ischemic changes along the incision. Patient had adequate bleeding at the amputation site intraoperatively to assume reasonable healing potential. - Order: Postop shoe to be worn at all times while weightbearing to the left foot. Minimize weightbearing when possible. Elevate left lower extremity at all times while at rest. - Surgical dressing is changed today and redressed with Betadine Xeroform, 4 x 4 gauze ABD pad and Sepideh and a lightly applied Jung bandage total dressings in place. Patient okay to leave this dressing in place until follow-up as an outpatient in the podiatry clinic. Please send patient home with gauze Sepideh Xeroform and an Jung bandage to be used in the case that his current dressing becomes wet, soiled or falls off. -Intraoperative culture and pathology results pending. I will continue to monitor as an outpatient and adjust antibiotics as needed. - Patient okay for discharge from podiatry standpoint on p.o. antibiotics to be continued to complete a total of 2 weeks of antibiotic therapy. - Patient to follow-up in the podiatry office within 10 days of discharge for wound reevaluation and suture removal. Admission and Anticipated Discharge Date Admission Date: December 25, 2024 Subjective Patient resting comfortably in hospital bed. Reports mild pain to the left foot overnight which is well-controlled on pain medication. He is currently preparing for discharge. We reviewed dressing change and weightbearing recommendations. Patient reports understanding and plans to keep dressing clean dry and intact, wear postop shoe at all times while ambulating and keep the foot elevated while at rest. Review of Systems Review of Systems: Reports pain at the amputation site which is currently well-controlled. Denies nausea, vomiting, fever, chills. Physical Exam Physical Exam: Const: Appears well developed and well nourished. No signs of acute distress present. CV: Extremities: No cyanosis or edema. Capillary refill time is less than 2 seconds all digits of the bilateral foot. Lymph: No palpable or visible regional lymphadenopathy. Skin: Well-healed cicatrix previous right hallux amputation Neuro: Loss of protective sensation bilateral foot. Proprioception remains intact. Psych: Mood/Affect: Mood is normal. Affect is normal. Cognition: Orientation is intact to person, place and time. Focused lower extremity musculoskeletal exam: Leg: No pain with compression of the calf muscle. Ankles: Normal to inspection and palpation. No swelling bilaterally. No tenderness bilaterally. Motor strength is intact. Range of motion pain-free and unlimited. Feet: Well-healed right hallux amputation. Left foot: post op day 1 status post left hallux amputation. Wound edges remain well-approximated with all sutures intact. No active drainage. Capillary refill time to the wound edges 2 to 3 seconds. No signs of ischemia. Mild diffuse edema to the foot edema to the foot. Results & Data Results & Data Vital Signs (Past 12 Hours) Vital Signs Temp Pulse Pulse Pulse Pulse Pulse Resp 12/30/24 13:12 36.5 C 62 85 18 12/30/24 12:33 88 80 12/30/24 11:11 36.5 C 85 18 12/30/24 08:13 77 12/30/24 07:23 36.5 C 77 18 12/30/24 05:48 79 12/30/24 03:30 36.5 C 67 18 Resp Resp BP Pulse Ox Pulse Ox Pulse Ox O2 Del Method 12/30/24 13:12 102/65 90 12/30/24 12:33 20 20 94 96 12/30/24 11:11 102/65 90 Room Air 12/30/24 08:13 12/30/24 07:23 107/69 95 Room Air 12/30/24 05:48 12/30/24 03:30 104/61 96 Room Air Coding Level of Care Code 06005 SUB INP/OBS CARE 2/35MIN Diagnoses Osteomyelitis of great toe of left foot M86.9 PAD (peripheral artery disease) I73.9 Cellulitis of left foot L03.116
[2024-12-30] MEDS ORDERED: AMOXICILLIN/CLAVULANATE 875 MG TAB PO SCH (17:00)
--- NOTE | 2024-12-30 17:13 | Discharge Summary ---
Date of Service December 30, 2024 Admission HPI Per Admitting Provider 67-year-old male with PMH rheumatoid arthritis on chronic prednisone therapy, Raynaud's,persistent atrial fibrillation (prescribed Eliquis however has not been taking), COPD, HFimpEF, CAD, PAD, and other problems listed below who presents to the ED for evaluation of chest pain. patient reports he developed a left lower sided chest pain yesterday evening that has been persistent. Pain seems to be worse with a deep breath. Patient denies shortness of breath. Patient reports he has not taken any of his medications in the past few weeks due to insurance issues. Patient is noted to have necrosis of the left great toe, has been following with his PCP and is scheduled to see podiatry soon. Patient denies palpitations. No lightheadedness, dizziness, diaphoresis, syncopal events. No fevers or chills. He denies abdominal pain, nausea, vomiting, diarrhea. No urinary symptoms. In the ED, patient was in atrial fibrillation with RVR with rates in the 110's. Labs show elevated ESR and CRP. Left foot x-ray shows Likely early osteomyelitis distally at the first distal phalanx with possible superimposed nondisplaced fracture. patient was given IV Tylenol, IV metoprolol 5 mg X1, IV Zosyn, IV Vanco, IVF. Admission Exam Per Admitting Provider Constitutional: WD/WN, vitals as above no acute distress Respiratory: normal respiratory effort, lungs clear to auscultation Cardiovascular: Rate/Rhythm: regular rate and + irregularly irregular Ves sels: normal peripheral pulses Extremities: + edema (trace edema BLE) Gastrointestinal (Abdomen): normal bowel sounds, soft, nontender, no hepatosplenomegaly Skin: no rashes, warm and dry necrosis of left great toe Neurologic: no focal motor deficits Psychiatric: A+Ox3, euthymic affect Principal Diagnosis Acute bilateral pulmonary embolism, osteomyelitis of the left great toe status post amputation, A-fib with RVR Discharge Exam Lying in bed with minimal distress due to respiratory symptoms as above Constitutional well developed, well nourished, + ill appearing and + obese Eyes PERRL, conjunctivae normal, anicteric sclerae ENMT external ear and nose normal, oropharynx normal Neck trachea midline, no thyromegaly Respiratory + respiratory distress Auscultation: lungs clear to auscultation bilaterally Cardiovascular Rate/Rhythm: regular rate and regular rhythm; not tachycardic Heart Sounds: normal S1 and normal S2; no murmur Extremities: no edema Gastrointestinal (Abdomen) Inspection/Auscultation: normal bowel sounds; abdomen not distended Percussion/Palpation: abdomen soft; abdomen nontender Neurologic normal touch/pain/proprioception and moves all extremities; no focal motor deficits Lymphatic no cervical or axillary lymphadenopathy Discharge Data Allergies Allergy/AdvReac Type Severity Reaction Status Date / Time No Known Allergies Allergy Verified 12/29/24 08:57 Consultations 12/25/24 15:55 ED Decision to Admit Stat 12/25/24 18:06 Consult Podiatry Routine 12/26/24 15:40 Consult Vascular Surgery Routine Procedures Performed Operation Date: 12/29/24 09:40 Actual Procedures p Left Great Toe Amputation(Left) - Alli Lozoya DPM Ordered Studies 12/25/24 16:44 CT angio chest PE protocol Stat 12/25/24 17:47 US arterial duplex LE LT Routine 12/25/24 17:59 US venous doppler LE BI Routine Hospital Course (1) Chest pain at rest: Admit to [facility] w/ telemetry Note that patient has not had any of his medications for the past few weeks due to insurance issues. Patient presented for evaluation of chest pain that began last evening In the ED, initial HS troponin 20, EKG without acute ST changes Patient prescribed Eliquis for atrial fibrillation however has not been taking, will check CTA chest Remains stable with minimal chest pain with breathing Echocardiogram showed borderline concentric LVH, LV systolic function is normal, LV wall motion is normal, ejection fraction is 55 to 60%, RV is normal in size and function, there is mild annular mitral calcification, mild tricuspid regurgitation and mild aortic regurgitation Remains otherwise medically stable No more chest pain and no shortness of breath at rest Will continue intravenous heparin for now Hold heparin on Sunday morning for the procedure Respiratory symptoms are better without any chest pain and/or shortness of breath Heparin is on hold due to left great toe amputation Will restart heparin as soon as okay from the stock preparer Heparin has been discontinued and Eliquis has been started for pulmonary embolism and A-fib management He denies any more chest pain and/or palpitation and he will have a 2 steps O2 saturation test prior to discharge (2) Osteomyelitis of great toe of left foot: Patient has been following with PCP for ulcer and necrosis of the left great toe. Referral placed for podiatry however patient has not been evaluated. History of PAD and osteomyelitis of the right great toe s/p amputation Left foot x-ray shows Likely early osteomyelitis distally at the first distal phalanx with possible superimposed nondisplaced fracture. S/p Vanco and Zosyn in the ED, will continue with Podiatry consult-appreciate consult with input and recommendation for possible partial amputation of the left big toe Continue current antibiotic and likely surgery on Sunday Left Great toe amputation will be done on Sunday Will have amputation of the left great toe tomorrow Status post amputation of the left great toe on 12/29/2024management will depend on stock preparer seen Likely discharge on oral antibiotic course 14 days in total Has had amputation of the left great toe and management and dressing will be as per the stock preparer in the wound care He will be given Augmentin for the next 7 days to continue (3) Atrial fibrillation with rapid ventricular response: Likely due to missed doses of medications S/p metoprolol 5 mg IV X1 in the ED with improvement of rate Resume prior doses of digoxin and metoprolol Resume Eliquis-following surgery Rate is controlled without any symptoms Heart rate is minimally elevated at 104 will continue current [id number] was on hold due to low blood pressures Rate is controlled (4) Rheumatoid arthritis: Hold leflunomide due to osteomyelitis Resume sulfasalazine and prednisone (5) Heart failure with improved ejection fraction (HFimpEF): History of Systolic congestive heart failure, tachycardic induced, EF 25-30% in the setting of AF RVR 06/2022 Echo 11/2023-EF 50 to 55%, trace MR, moderate TR Resume spironolactone and Lasix, Entresto, beta-tyrone, Jardiance Appears euvolemic (6) ASCVD (arteriosclerotic cardiovascular disease): Nonobstructive CAD per cardiac catheterization 04/20/2021 Continue ASA, statin, beta-tyrone (7) PAD (peripheral artery disease): Continue ASA and statin Check LLE arterial Doppler- no significant findings (8) Mood disorder: Stable, resume divalproex (9) Raynauds disease: Stable, resume sildenafil (10) COPD (chronic obstructive pulmonary disease): No signs of acute exacerbation Continue home inhalers DVT PROPHYLAXIS Eliquis Total Time Total Time Spent Total Time Spent (In Minutes): 40 minutes Discharge Plan Discharge Items Patient Disposition: Home - Self-Care Reason For Visit: OSTEOMYELITIS Discharge Diagnosis: Acute bilateral pulmonary embolism, osteomyelitis of the left great toe status post amputation, A-fib with RVR Condition on Discharge: Good Activity: Resume your previous activity Non-emergency contact: Primary Care Provider Call non-emergency contact if: you have any medication questions and your symptoms worsen Follow-up/Referrals: Anahy Grayson MD [Primary Care Provider] - 01/02/25 11:40 am Diet: Heart Healthy Addtl Attending Provider Instructions: Please take precautions to avoid falls Take your Eliquis as advised and continue taking it Finish the course of antibiotic and you can try [id number] probiotics to take Keep dressing your wound as advised by the wound care and the stock preparer Please keep your appointments with the healthcare providers Pending Studies at Discharge: No Stand-Alone Forms: [employer], Smoking Cessation Medications and DC Order Prescriptions: New amoxicillin-pot clavulanate 875-125 mg Tablet 1 tab PO BIDM Qty: 10 0RF Continued nitroglycerin 0.4 mg tablet, sublingual 0.4 mg sublingual UD PRN (Reason: Chest Pain) Rx Instructions: NEEDED FOR CHEST PAIN : ONE TABLET UNDER THE TONGUE EVERY 5 MINUTES UP TO THREE DOSES. sulfasalazine 500 mg tablet 1,000 mg PO BID Qty: 120 0RF ondansetron HCl 4 mg tablet 4 mg PO Q8H PRN (Reason: Nausea) Qty: 10 0RF alendronate 70 mg tablet 70 mg PO WK Qty: 4 0RF Rx Instructions: TAKE THIS MED EVERY sunday metoprolol succinate 100 mg tablet extended release 24 hr 150 mg PO AMHS Qty: 90 0RF Rx Instructions: 1 & 1/2 tablet dose omeprazole 40 mg capsule,delayed release(DR/EC) 40 mg PO DAILYBB Qty: 30 0RF spironolactone 25 mg tablet 12.5 mg PO QAM Qty: 15 0RF digoxin 125 mcg (0.125 mg) tablet 0.125 mcg PO QAM Qty: 30 0RF cholecalciferol (vitamin D3) [Vitamin D3] 10 mcg (400 unit) Capsule 10 mcg PO QAM Qty: 30 0RF duloxetine 30 mg capsule,delayed release(DR/EC) 30 mg PO QAM Qty: 30 0RF Jardiance 25 mg tablet 25 mg PO QAM Entresto 24-26 mg tablet 1 tab PO AMHS Trelegy Ellipta 100-62.5-25 mcg blister with device 1 ea INHALATION QAM furosemide 20 mg Tablet 40 mg PO DAILY magnesium oxide 400 mg (241.3 mg magnesium) tablet 400 mg PO QAM aspirin 81 mg Tablet 81 mg PO DAILY prednisone 5 mg tablet 10 mg PO DAILY atorvastatin 10 mg tablet 10 mg PO DAILY leflunomide 10 mg Tablet 10 mg PO DAILY divalproex 250 mg tablet extended release 24 hr 250 mg PO DAILY sildenafil (pulm.hypertension) 20 mg Tablet 20 mg PO TID Rx Instructions: administer doses at least 4-6 hours apart Changed oxycodone-acetaminophen 10-325 mg tablet 1 tab PO BID PRN (Reason: Pain,severe) Qty: 15 0RF Eliquis 5 mg tablet 5 mg PO UD Qty: 76 0RF Rx Instructions: 2 tabs yesTwice Daily for 13 doses and then 1 tab Twice daily as before Discharge Orders: Discharge Order (Routine); Ordered 12/30/24 Ordered By: Vianca Natarajan Discharge Order- CHF (Routine); Ordered 12/30/24 Ordered By: Vianca Flores/Other Patient Handouts: AFib Dc, Osteomyelitis Dc Admission Data Admit Date/Time: 12/25/24 16:11 Attending Provider: Vianca Natarajan Admit Provider: Vianca Natarajan Primary Care Provider: Anahy Grayson Other Providers: Lrary Noble; Alli Lozoya; Nino Walter Other Interventions: Discharge Summary Assessment (RN) Last Done: 12/30/24 13:12
--- NOTE | 2025-01-01 08:17 | Anesthesiology Consultation ---
Date of Service December 29, 2024 Assessment & Plan Consults Requested medical & cardiac Pulmonary ASA ASA3 Proposed Anesthesia Anesthesia Type: General Risk / Benefits Reviewed With: PT / POA / Parent / Guardian, Accepts Plan and Informed Consent Obtained History Surgery Operation Date: 12/29/24 09:40 Proposed Procedures p Left Great Toe Amputation - Alli Lozoya DPM Height/Weight Height: 5 ft 9 in Weight: 105 kg Allergies Allergy/AdvReac Type Severity Reaction Status Date / Time No Known Allergies Allergy Verified 12/29/24 08:57 Medications Home Medications Medication Instructions Recorded Confirmed Last Taken nitroglycerin 0.4 mg sublingual 0.4 mg sublingual UD PRN Chest Pain 08/27/21 12/25/24 Unknown tablet alendronate 70 mg tablet 70 mg PO WK #4 tabs 12/04/23 12/25/24 Unknown cholecalciferol (vitamin D3) 10 10 mcg PO QAM #30 caps 12/04/23 12/25/24 Unknown mcg (400 unit) capsule (Vitamin D3) digoxin 125 mcg (0.125 mg) tablet 0.125 mcg (0.001 x 125 mcg (0.125 12/04/23 12/25/24 Unknown mg)) PO QAM #30 tabs duloxetine 30 mg capsule,delayed 30 mg PO QAM #30 caps 12/04/23 12/25/24 Unknown release metoprolol succinate 100 mg 150 mg (1.5 x 100 mg) PO AMHS #90 12/04/23 12/25/24 Unknown tablet,extended release 24 hr tabs omeprazole 40 mg capsule,delayed 40 mg PO DAILYBB #30 caps 12/04/23 12/25/24 Unknown release ondansetron HCl 4 mg tablet 4 mg PO Q8H PRN Nausea #10 tabs 12/04/23 12/25/24 Unknown spironolactone 25 mg tablet 12.5 mg (1/2 x 25 mg) PO QAM #15 12/04/23 12/25/24 Unknown tabs sulfasalazine 500 mg tablet 1,000 mg (2 x 500 mg) PO BID #120 12/04/23 12/25/24 Unknown tabs aspirin 81 mg tablet 81 mg PO DAILY 12/25/24 12/25/24 Unknown atorvastatin 10 mg tablet 10 mg PO DAILY 12/25/24 12/25/24 Unknown divalproex 250 mg tablet,extended 250 mg PO DAILY 12/25/24 12/25/24 Unknown release 24 hr empagliflozin 25 mg tablet 25 mg PO QAM 12/25/24 12/25/24 Unknown (Jardiance) fluticasone fur. 100 mcg-umeclid 1 ea inhalation QAM 12/25/24 12/25/24 Unknown 62.5 mcg-vilant 25 mcg inhalat.powder (Trelegy Ellipta) furosemide 20 mg tablet 40 mg PO DAILY 12/25/24 12/25/24 Unknown leflunomide 10 mg tablet 10 mg PO DAILY 12/25/24 12/25/24 Unknown magnesium oxide 400 mg (241.3 mg 400 mg PO QAM 12/25/24 12/25/24 Unknown magnesium) tablet prednisone 5 mg tablet 10 mg PO DAILY RHEUMATOID ARTHRITIS 12/25/24 12/25/24 Unknown sacubitril 24 mg-valsartan 26 mg 1 tab PO AMHS 12/25/24 12/25/24 Unknown tablet (Entresto) sildenafil (pulm.hypertension) 20 20 mg PO TID 12/25/24 12/25/24 Unknown mg tablet amoxicillin 875 mg-potassium 1 tab PO BIDM #10 tabs 12/30/24 Unknown clavulanate 125 mg tablet apixaban 5 mg tablet (Eliquis) 5 mg PO UD #76 tabs 12/30/24 Unknown oxycodone-acetaminophen 10 mg-325 1 tab PO BID PRN Pain,severe #15 12/30/24 Unknown mg tablet tabs NPO Date Last Intake of Fluids: 12/28/24 Time Last Intake of Fluids: 23:59 Date Last Intake of Solids: 12/28/24 Time Last Intake of Solids: 23:59 Past Medical History Medical History Heart failure with improved ejection fraction (HFimpEF) Medical non-compliance COPD (chronic obstructive pulmonary disease) History of osteomyelitis ASCVD (arteriosclerotic cardiovascular disease) Chronic atrial fibrillation Dyslipidemia, goal LDL below 70 Erectile dysfunction Tobacco use disorder Exercise / Class Metabolic Activity II 4-5 Yardwork/Stairs/Walk up hill Past Family History Family History Other Heart disease Hypertension Past Surgical History Surgical History (Updated 12/25/24 @ 17:14 by PATRICK Phoenix) History of cardiac cath History of colonoscopy Hx of tonsillectomy Past Anesthesia History No Hx of Anesthesia Complications and No Family Hx of Anesthesia Complications History of PONV No Hx of PONV and No Hx of Motion Sickness Social History Smoking Status: Current every day smoker tobacco type: cigarettes Smoking cigarettes per day: 1 Do You Dip or Chew Tobacco: No Hx Alcohol Use: No Hx Substance Use: No substance use type: does not use Physical Exam Vital Signs Last Vital Signs Temp 36.5 C 12/30/24 13:12 Pulse 85 12/30/24 13:12 Resp 18 12/30/24 13:12 BP 102/65 12/30/24 13:12 Pulse Ox 90 12/30/24 13:12 O2 Del Method Room Air 12/30/24 11:11 O2 Flow Rate 4 12/29/24 11:56 FiO2 2 12/26/24 19:33 Constitutional no acute distress ENMT Mouth: + dentition abnormality Thyromental Distance: > or= 3.5 Finger Breadths Mallampati Class: III Neck normal visual inspection Respiratory normal respiratory effort; no respiratory distress Auscultation: lungs clear to auscultation bilaterally Cardiovascular Rate/Rhythm: regular rate and regular rhythm Heart Sounds: no murmur Musculoskeletal Spine: normal cervical ROM Psychiatric Orientation: alert and oriented x 3 Testing Laboratory Results 12/30/24 05:28 12/30/24 05:28 PT 11.5 Seconds (9.0-12.0) 12/25/24 14:20 INR 1.1 (0.9-1.1) 12/25/24 14:20 APTT 30 Seconds (21-31) 12/25/24 19:56 Urine Color Yellow 12/25/24 14:14 Urine Appearance Clear (Clear) 12/25/24 14:14 Urine pH 6.0 (4.5-7.5) 12/25/24 14:14 Ur Specific [place] 1.020 (1.000-1.030) 12/25/24 14:14 Urine Protein Trace (Negative) H 12/25/24 14:14 Urine Glucose (UA) Negative (Negative) 12/25/24 14:14 Urine Ketones Trace (Negative) H 12/25/24 14:14 Urine Nitrite Negative (Negative) 12/25/24 14:14 Ur Leukocyte Esterase Negative (Negative) 12/25/24 14:14 Urine WBC (Auto) 0-5 /hpf (0-5) 12/25/24 14:14 Urine RBC (Auto) 0-2 /hpf (0-2) 12/25/24 14:14 U Hyaline Cast (Auto) 0-2 /lpf (0-2) 12/25/24 14:14 U Epithel Cells (Auto) 0-2 /hpf (0-2) 12/25/24 14:14 Urine Bacteria (Auto) None Seen (None Seen) 12/25/24 14:14 12/29/24 Unknown Gram Stain - Final Toe,Left Great Aerobic and Anaerobic Culture - Preliminary High counts mixed probable skin microbiota. 12/25/24 23:19 Gram Stain - Final Foot,Left Aerobic and Anaerobic Culture - Final Strep agalactiae (group B) Day of Procedure Evaluation. Date of Surgery January 01, 2025 Height/Weight Height: 5 ft 9 in Weight: 105 kg Vital Signs Last Vital Signs Temp 36.5 C 12/30/24 13:12 Pulse 85 12/30/24 13:12 Resp 18 12/30/24 13:12 BP 102/65 12/30/24 13:12 Pulse Ox 90 12/30/24 13:12 O2 Del Method Room Air 12/30/24 11:11 O2 Flow Rate 4 12/29/24 11:56 FiO2 2 12/26/24 19:33 Allergies Allergy/AdvReac Type Severity Reaction Status Date / Time No Known Allergies Allergy Verified 12/29/24 08:57 Medications Home Medications Medication Instructions Recorded Confirmed Last Taken nitroglycerin 0.4 mg sublingual 0.4 mg sublingual UD PRN Chest Pain 08/27/21 12/25/24 Unknown tablet alendronate 70 mg tablet 70 mg PO WK #4 tabs 12/04/23 12/25/24 Unknown cholecalciferol (vitamin D3) 10 10 mcg PO QAM #30 caps 12/04/23 12/25/24 Unknown mcg (400 unit) capsule (Vitamin D3) digoxin 125 mcg (0.125 mg) tablet 0.125 mcg (0.001 x 125 mcg (0.125 12/04/23 12/25/24 Unknown mg)) PO QAM #30 tabs duloxetine 30 mg capsule,delayed 30 mg PO QAM #30 caps 12/04/23 12/25/24 Unknown release metoprolol succinate 100 mg 150 mg (1.5 x 100 mg) PO AMHS #90 12/04/23 12/25/24 Unknown tablet,extended release 24 hr tabs omeprazole 40 mg capsule,delayed 40 mg PO DAILYBB #30 caps 12/04/23 12/25/24 Unknown release ondansetron HCl 4 mg tablet 4 mg PO Q8H PRN Nausea #10 tabs 12/04/23 12/25/24 Unknown spironolactone 25 mg tablet 12.5 mg (1/2 x 25 mg) PO QAM #15 12/04/23 12/25/24 Unknown tabs sulfasalazine 500 mg tablet 1,000 mg (2 x 500 mg) PO BID #120 12/04/23 12/25/24 Unknown tabs aspirin 81 mg tablet 81 mg PO DAILY 12/25/24 12/25/24 Unknown atorvastatin 10 mg tablet 10 mg PO DAILY 12/25/24 12/25/24 Unknown divalproex 250 mg tablet,extended 250 mg PO DAILY 12/25/24 12/25/24 Unknown release 24 hr empagliflozin 25 mg tablet 25 mg PO QAM 12/25/24 12/25/24 Unknown (Jardiance) fluticasone fur. 100 mcg-umeclid 1 ea inhalation QAM 12/25/24 12/25/24 Unknown 62.5 mcg-vilant 25 mcg inhalat.powder (Trelegy Ellipta) furosemide 20 mg tablet 40 mg PO DAILY 12/25/24 12/25/24 Unknown leflunomide 10 mg tablet 10 mg PO DAILY 12/25/24 12/25/24 Unknown magnesium oxide 400 mg (241.3 mg 400 mg PO QAM 12/25/24 12/25/24 Unknown magnesium) tablet prednisone 5 mg tablet 10 mg PO DAILY RHEUMATOID ARTHRITIS 12/25/24 12/25/24 Unknown sacubitril 24 mg-valsartan 26 mg 1 tab PO AMHS 12/25/24 12/25/24 Unknown tablet (Entresto) sildenafil (pulm.hypertension) 20 20 mg PO TID 12/25/24 12/25/24 Unknown mg tablet amoxicillin 875 mg-potassium 1 tab PO BIDM #10 tabs 12/30/24 Unknown clavulanate 125 mg tablet apixaban 5 mg tablet (Eliquis) 5 mg PO UD #76 tabs 12/30/24 Unknown oxycodone-acetaminophen 10 mg-325 1 tab PO BID PRN Pain,severe #15 12/30/24 Unknown mg tablet tabs Past Anesthesia History No Hx of Anesthesia Complications and No Family Hx of Anesthesia Complications History of PONV No Hx of PONV and No Hx of Motion Sickness NPO Date Last Intake of Fluids: 12/28/24 Time Last Intake of Fluids: 23:59 Date Last Intake of Solids: 12/28/24 Time Last Intake of Solids: 23:59 Home Medications Home Medications Medication Instructions Recorded Confirmed Last Taken nitroglycerin 0.4 mg sublingual 0.4 mg sublingual UD PRN Chest Pain 08/27/21 12/25/24 Unknown tablet alendronate 70 mg tablet 70 mg PO WK #4 tabs 12/04/23 12/25/24 Unknown cholecalciferol (vitamin D3) 10 10 mcg PO QAM #30 caps 12/04/23 12/25/24 Unknown mcg (400 unit) capsule (Vitamin D3) digoxin 125 mcg (0.125 mg) tablet 0.125 mcg (0.001 x 125 mcg (0.125 12/04/23 12/25/24 Unknown mg)) PO QAM #30 tabs duloxetine 30 mg capsule,delayed 30 mg PO QAM #30 caps 12/04/23 12/25/24 Unknown release metoprolol succinate 100 mg 150 mg (1.5 x 100 mg) PO AMHS #90 12/04/23 12/25/24 Unknown tablet,extended release 24 hr tabs omeprazole 40 mg capsule,delayed 40 mg PO DAILYBB #30 caps 12/04/23 12/25/24 Unknown release ondansetron HCl 4 mg tablet 4 mg PO Q8H PRN Nausea #10 tabs 12/04/23 12/25/24 Unknown spironolactone 25 mg tablet 12.5 mg (1/2 x 25 mg) PO QAM #15 12/04/23 12/25/24 Unknown tabs sulfasalazine 500 mg tablet 1,000 mg (2 x 500 mg) PO BID #120 12/04/23 12/25/24 Unknown tabs aspirin 81 mg tablet 81 mg PO DAILY 12/25/24 12/25/24 Unknown atorvastatin 10 mg tablet 10 mg PO DAILY 12/25/24 12/25/24 Unknown divalproex 250 mg tablet,extended 250 mg PO DAILY 12/25/24 12/25/24 Unknown release 24 hr empagliflozin 25 mg tablet 25 mg PO QAM 12/25/24 12/25/24 Unknown (Jardiance) fluticasone fur. 100 mcg-umeclid 1 ea inhalation QAM 12/25/24 12/25/24 Unknown 62.5 mcg-vilant 25 mcg inhalat.powder (Trelegy Ellipta) furosemide 20 mg tablet 40 mg PO DAILY 12/25/24 12/25/24 Unknown leflunomide 10 mg tablet 10 mg PO DAILY 12/25/24 12/25/24 Unknown magnesium oxide 400 mg (241.3 mg 400 mg PO QAM 12/25/24 12/25/24 Unknown magnesium) tablet prednisone 5 mg tablet 10 mg PO DAILY RHEUMATOID ARTHRITIS 12/25/24 12/25/24 Unknown sacubitril 24 mg-valsartan 26 mg 1 tab PO AMHS 12/25/24 12/25/24 Unknown tablet (Entresto) sildenafil (pulm.hypertension) 20 20 mg PO TID 12/25/24 12/25/24 Unknown mg tablet amoxicillin 875 mg-potassium 1 tab PO BIDM #10 tabs 12/30/24 Unknown clavulanate 125 mg tablet apixaban 5 mg tablet (Eliquis) 5 mg PO UD #76 tabs 12/30/24 Unknown oxycodone-acetaminophen 10 mg-325 1 tab PO BID PRN Pain,severe #15 12/30/24 Unknown mg tablet tabs Exercise / Class Metabolic Activity Metabolic Activity: II 4-5 Yardwork/Stairs/Walk up hill Physical Exam Constitutional: no acute distress Mouth: + dentition abnormality Thyromental Distance: > or= 3.5 Finger Breadths Mallampati Class: III Neck: + visual inspection normal Respiratory: + respiratory effort normal and + clear to auscultation bilaterally; no respiratory distress Cardiovascular: + regular rate and + regular rhythm; no murmur Musculoskeletal: no limited cervical ROM Psychiatric: + alert and + oriented x 3 ASA ASA3 Proposed Anesthesia Proposed Anesthesia: General Risk / Benefits Reviewed With: PT / POA / Parent / Guardian, Accepts Plan and Informed Consent Obtained
--- NOTE | 2025-01-02 07:18 | Coding Query ---
Documented CODING QUERY To promote full compliance with coding requirements relating to patient care, provider participation is requested in all cases of installer inspector final uncertainty. Please assist us with the question(s) below: Coding Question(s): Please indicte acuity of the osteomyelitis. Physician's Response(s): ( + ) Acute Osteomyelitis ( ) Subacute Osteomyelitis ( ) Chronic Osteomyelitis ( ) Other acuity (please specify) ( ) Unable to determine Thank you Connie Mullen Principal Diagnosis: "that condition established after study, to be chiefly responsible for occasioning the admission of the patient to the hospital for care." Co-Existing Principal Diagnosis: "when two or more diagnoses equally meet the criteria for principal diagnosis as determined by the circumstances of admission, diagnostic work up, and/or therapy provided, and the Alphabetic Index, Tabular List, or another coding guideline does not provide sequencing direction, any one of the diagnoses may be sequenced first." "When the physician has documented what appears to be a current diagnosis in the body of the record, but has not included the diagnosis in the final diagnostic statement, the physician should be asked whether the diagnosis should be added." (Source [facility]oding [facility] 2 QTR90. p3-4) [facility]
[2025-01-06] MEDS ORDERED: APIXABAN 5 MG TABLET PO SCH (09:00)
== END 2024-12-30 14:50 | disposition home or self-care (01) | DRG 982 ==
LOC: ED 13:37 → 2W 16:11

== ENCOUNTER 2025-05-13 15:27 | Inpatient (IN) ==
[2025-05-13] MEDS: SODIUM CHLORIDE 0.9% 1,000 ML IV ONE ×2 (16:00→19:19)
--- NOTE | 2025-05-13 16:14 | XRay Report ---
SINGLE VIEW CHEST CLINICAL HISTORY: Sepsis FINDINGS: 2 AP, portable, upright chest radiographs are compared to chest x-ray and chest CT dated . The heart is enlarged noting atherosclerotic calcification of the thoracic aorta. There is pulmonary vascular congestion. Bilateral airspace opacities likely representing mild interstitial radha ma. No large pleural effusion or pneumothorax is seen. The skeletal structures are osteopenic. The [place] thorax is grossly intact. 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 IMPRESSION: 1. Cardiomegaly with evidence of congestive failure. 2. Mild bilateral airspace opacities likely representing mild pulmonary edema. Correlate clinically. Radiographic follow-up to resolution is recommended. 3. No large pleural effusion is seen ACT 112: Negative or not required by law. Electronically signed by: Alcon Roach M.D. 05/13/2025 4:13 PM
--- NOTE | 2025-05-13 16:33 | Emergency Department Note ---
Impression & Plan Sepsis, Atrial fibrillation with rapid ventricular response, Elevated troponin, Generalized weakness, Nausea & vomiting, Elevated lactic acid level, Hyperbilirubinemia, Transaminitis, Acute exacerbation of CHF (congestive heart failure), Elevated brain natriuretic peptide (BNP) level, Fall from standing, Head injury ED Provider Note HISTORY OF PRESENT ILLNESS: Patient is a 60-year-old male presenting with nausea and vomiting, but body aches and a fall. Patient reports that he has been feeling very weak and lightheaded every time he stands up over the last 2 weeks. Reports he has had diffuse body aches. States that he developed a sore throat 2 days ago and has been unable to tolerate any of his oral home medications. He started having nausea and vomiting 2 days ago with a sore throat. He states that today he tried to get up out of bed when he became very lightheaded and dizzy and fell, hitting his head. He denies loss of consciousness. He is on Eliquis. He reports that he is pretty much been confined to bed for the last 2 weeks secondary to his dizziness and weakness. Denies any dysuria or hematuria. Denies any abdominal pain. Denies any diarrhea. Denies any chest pain or shortness of breath with his lightheadedness. Denies any DVT or PE history. He is on Eliquis for history of A-fib. Patient was given 4 mg IV Zofran and 250 cc of fluid prehospital with EMS. ROS: as above PHYSICAL EXAM: Primary Survey Airway: Intact Breathing: Normal, breath sounds equal bilaterally Circulation: Skin warm, distal pulses 2+, capillary refill less than 2 seconds Disability Pupils: Equal and reactive to light, 3mm, brisk GCS: 15, E = 4, V=5, M= 6 Motor Function: Moves all extremities. Sensory: No deficits Secondary Survey GEN: Well developed and well-nourished HENT: Head: No external signs of trauma. Mouth/Throat: Midface stable. No malocclusion. Eyes: EOMI. Pupils are 3 mm, round and reactive bilaterally. Neck: No midline C-spine tenderness. No step-offs. Cardiovascular: Tachycardic with irregularly irregular rhythm. Pulses present in all 4 extremities. Pulmonary/Chest: BS equal bilaterally. No tenderness or ecchymosis. Abdomen: No tenderness or ecchymosis. Musculoskeletal: Pelvis: No instability. Back: No midline tenderness. No step-offs or deformities. Extremities: No gross deformities. No TTP. Skin: No laceration. No abrasion. Neuro: No focal neurological deficits. GCS as above. Psych: Normal mood and affect. MDM: - Vitals signs showed tachycardia - History obtained via patient. History as above. - Chronic conditions affecting care: CHF; COPD; chronic Afib; HLD; HTN - Differential diagnoses include, but are not limited to: viral syndrome; electrolyte abnormality; dehydration; dysrhythmia; CHF exacerbation; UTI; pneumonia - Order placed for continuous cardiac monitoring. At this time, monitor showed rate of 128 bpm with irregular rhythm, per my interpretation. - External medical records reviewed. Discharge summary dated 04/26/2025 was reviewed. Patient was admitted for heart failure secondary to medication noncompliance. - EKG image interpreted by myself showed atrial fibrillation. Rate tachycardic at 123 bpm. QT 336. No acute ischemic changes. - Laboratory workup interpreted by myself showed leukocytosis (WBC 11.29) with neutrophil predominance; hyponatremia (Na 130); elevated lactate (2.4); elevated total bilirubin (2.4); transaminitis (AST 520; ALT 576); ; elevated troponin (39.2); elevated BNP (1517); normal procalcitonin - Blood cultures obtained - UA negative for infection, but noted to have ketonuria and elevated bilirubin - CT head wo contrast negative for acute intracranial hemorrhage - CT cervical spine wo contrast negative for acute pathology - CT abdomen/pelvis with IV contrast and US gallbladder added to workup given patient's transaminitis and hyperbilirubinemia. - CXR image reviewed and interpreted by myself showed pulmonary vascular congestion, per my interpretation. Radiology notes evidence of congestive failure and mild bilateral airspace opacities concerning for mild pulmonary edema. - COVID/flu/RSV negative - Patient was initially given 1 L normal saline with minimal improvement in his heart rate. Given 5 mg IV Lopressor with improvement in heart rate from 140s to 120s. Given additional 5 mg IV Lopressor dose. He is ordered 2 g of IV Rocephin for empiric antibiotic coverage, but given his transaminitis Zosyn was also ordered and administered. - Discussion was had with family independence case manager about patient's case and need for admission - Hospitalist consulted for admission - Patient admitted to [facility]ist service for further evaluation and management. I have personally spent 64 minutes of critical care time in the direct management of this patient. This includes bedside care, interpretation of diagnostic studies, and testing, discussion with consultants, patient, and family members, and other required patient management activities. This 64 minutes is in excess of all separately billable procedures. ASSESSMENT AND PLAN: Diagnosis: Generalized weakness; nausea and vomiting; sepsis; elevated lactic acid level; hyperbilirubinemia; transaminitis; elevated troponin; elevated BNP; acute CHF exacerbation; fall; head injury Plan: Admit Past Med/Surg History Problem List Head injury (Acute) Fall from standing (Acute) Elevated brain natriuretic peptide (BNP) level (Acute) Acute exacerbation of CHF (congestive heart failure) (Acute) Transaminitis (Acute) Hyperbilirubinemia (Acute) Elevated lactic acid level (Acute) Nausea & vomiting (Acute) Generalized weakness (Acute) Elevated troponin (Acute) Atrial fibrillation with rapid ventricular response (Acute) Sepsis (Acute) (HFpEF) heart failure with preserved ejection fraction Abdominal pain (Acute) Elevated troponin (Acute) LEVIN (dyspnea on exertion) (Acute) A-fib (Acute) CHF (congestive heart failure) (Acute) Amputation of right great toe Amputation of left great toe Cellulitis of left foot Mood disorder Osteomyelitis of great toe of left foot (Acute) Chest pain at rest Atrial fibrillation with rapid ventricular response (Acute) Depressive disorder Raynauds disease PAD (peripheral artery disease) (Acute) HTN (hypertension) Hepatitis C Chronic steroid use (Chronic) Rheumatoid arthritis (Chronic) GERD (gastroesophageal reflux disease) Osteoarthritis of right knee (Chronic) Status post right knee replacement (Acute) Medical History Heart failure with improved ejection fraction (HFimpEF) Medical non-compliance COPD (chronic obstructive pulmonary disease) History of osteomyelitis ASCVD (arteriosclerotic cardiovascular disease) Chronic atrial fibrillation Dyslipidemia, goal LDL below 70 Erectile dysfunction Tobacco use disorder Surgical History History of cardiac cath History of colonoscopy Hx of tonsillectomy Family History Other Heart disease Hypertension Social History Smoking Status: Former smoker Tobacco Type: Cigarettes Cigarettes Per Day: 5; Second Hand Exposure: No; Do You Dip or Chew Tobacco: No; Hx Alcohol Use: No Hx Substance Use: No Preferred Language: Hong Konger Communication Ability: Effective Patternmaker Grader Required: No Beliefs That Will Affect Care: None Current Living Situation: Family Current Living Situation Comment: Lives at home with girlfrienny Hardy, & their child Danica Feels Safe at Home: Yes Assistive Devices: Cane Allergies Allergies Allergy/AdvReac Type Severity Reaction Status Date / Time No Known Allergies Allergy Verified 12/29/24 08:57 Home Meds Home Medications Medication Instructions Recorded Confirmed nitroglycerin 0.4 mg sublingual 0.4 mg sublingual UD PRN Chest Pain 08/27/21 12/25/24 tablet aspirin 81 mg tablet 81 mg PO DAILY 12/25/24 12/25/24 atorvastatin 10 mg tablet 10 mg PO DAILY 12/25/24 12/25/24 divalproex 250 mg tablet,extended 250 mg PO DAILY 12/25/24 12/25/24 release 24 hr empagliflozin 25 mg tablet 25 mg PO QAM 12/25/24 12/25/24 (Jardiance) fluticasone fur. 100 mcg-umeclid 1 ea inhalation QAM 12/25/24 12/25/24 62.5 mcg-vilant 25 mcg inhalat.powder (Trelegy Ellipta) furosemide 20 mg tablet 40 mg PO DAILY 12/25/24 12/25/24 leflunomide 10 mg tablet 10 mg PO DAILY 12/25/24 12/25/24 magnesium oxide 400 mg (241.3 mg 400 mg PO QAM 12/25/24 12/25/24 magnesium) tablet prednisone 5 mg tablet 10 mg PO DAILY RHEUMATOID ARTHRITIS 12/25/24 12/25/24 sacubitril 24 mg-valsartan 26 mg 1 tab PO AMHS 12/25/24 12/25/24 tablet (Entresto) sildenafil (pulm.hypertension) 20 20 mg PO TID 12/25/24 12/25/24 mg tablet Previous Rx's Medication Instructions Recorded alendronate 70 mg tablet 70 mg PO WK #4 tabs 12/04/23 cholecalciferol (vitamin D3) 10 10 mcg PO QAM #30 caps 12/04/23 mcg (400 unit) capsule (Vitamin D3) digoxin 125 mcg (0.125 mg) tablet 0.125 mcg (0.001 x 125 mcg (0.125 12/04/23 mg)) PO QAM #30 tabs duloxetine 30 mg capsule,delayed 30 mg PO QAM #30 caps 12/04/23 release metoprolol succinate 100 mg 150 mg (1.5 x 100 mg) PO AMHS #90 12/04/23 tablet,extended release 24 hr tabs omeprazole 40 mg capsule,delayed 40 mg PO DAILYBB #30 caps 12/04/23 release ondansetron HCl 4 mg tablet 4 mg PO Q8H PRN Nausea #10 tabs 12/04/23 spironolactone 25 mg tablet 12.5 mg (1/2 x 25 mg) PO QAM #15 12/04/23 tabs sulfasalazine 500 mg tablet 1,000 mg (2 x 500 mg) PO BID #120 12/04/23 tabs amoxicillin 875 mg-potassium 1 tab PO BIDM #10 tabs 12/30/24 clavulanate 125 mg tablet apixaban 5 mg tablet (Eliquis) 5 mg PO UD #76 tabs 12/30/24 oxycodone-acetaminophen 10 mg-325 1 tab PO BID PRN Pain,severe #15 12/30/24 mg tablet tabs Results & Data (ED) Vital Signs Vital Signs - 24 hr 05/13/25 15:33 05/13/25 15:34 05/13/25 15:35 Temperature 36.9 C 36.9 C Temperature Source Oral Oral Pulse Rate 113 H 120 H Pulse Rate [Apical] 120 H Pulse Rate from SpO2 Sensor Respiratory Rate 21 21 Respiratory Effort / Characteristics Non-Labored Spontaneous Non-Labored Spontaneous Blood Pressure 114/81 Blood Pressure [Right Arm] 114/81 Blood Pressure Mean 92 Blood Pressure Mean [Right Arm] 92 Pulse Oximetry 96 96 Oxygen Delivery Method Room Air Room Air Sepsis Recent Fever Within 48 Hours No Sepsis New/Unexplained Change in Mental Status No Sepsis Action Taken by Nursing Physician Notified 05/13/25 15:39 05/13/25 15:44 05/13/25 15:45 Temperature 36.9 C Temperature Source Oral Pulse Rate 116 H 121 H Pulse Rate [Apical] 120 H Pulse Rate from SpO2 Sensor 118 H 118 H Respiratory Rate 20 21 21 Respiratory Effort / Characteristics Blood Pressure Blood Pressure [Right Arm] 114/81 Blood Pressure Mean Blood Pressure Mean [Right Arm] 92 Pulse Oximetry 94 96 91 Oxygen Delivery Method Room Air Sepsis Recent Fever Within 48 Hours Sepsis New/Unexplained Change in Mental Status Sepsis Action Taken by Nursing 05/13/25 15:46 05/13/25 15:48 05/13/25 16:00 Temperature Temperature Source Pulse Rate 120 H Pulse Rate [Apical] 120 H 136 H Pulse Rate from SpO2 Sensor Respiratory Rate 16 21 16 Respiratory Effort / Characteristics Blood Pressure Blood Pressure [Right Arm] 114/81 106/84 Blood Pressure Mean Blood Pressure Mean [Right Arm] 92 91 Pulse Oximetry 96 96 96 Oxygen Delivery Method Room Air Room Air Sepsis Recent Fever Within 48 Hours Sepsis New/Unexplained Change in Mental Status Sepsis Action Taken by Nursing 05/13/25 16:00 05/13/25 16:00 05/13/25 16:00 Temperature Temperature Source Pulse Rate Pulse Rate [Apical] Pulse Rate from SpO2 Sensor Respiratory Rate Respiratory Effort / Characteristics Blood Pressure 106/84 106/84 106/84 Blood Pressure [Right Arm] Blood Pressure Mean 87 87 87 Blood Pressure Mean [Right Arm] Pulse Oximetry Oxygen Delivery Method Sepsis Recent Fever Within 48 Hours Sepsis New/Unexplained Change in Mental Status Sepsis Action Taken by Nursing 05/13/25 16:00 05/13/25 16:00 05/13/25 16:00 Temperature Temperature Source Pulse Rate 114 H Pulse Rate [Apical] Pulse Rate from SpO2 Sensor 141 H Respiratory Rate 19 Respiratory Effort / Characteristics Blood Pressure 106/84 106/84 Blood Pressure [Right Arm] Blood Pressure Mean 87 87 Blood Pressure Mean [Right Arm] Pulse Oximetry 93 Oxygen Delivery Method Sepsis Recent Fever Within 48 Hours Sepsis New/Unexplained Change in Mental Status Sepsis Action Taken by Nursing 05/13/25 16:30 05/13/25 16:43 05/13/25 16:45 Temperature Temperature Source Pulse Rate 131 H 113 H Pulse Rate [Apical] 136 H Pulse Rate from SpO2 Sensor Respiratory Rate 23 22 21 Respiratory Effort / Characteristics Non-Labored Spontaneous Blood Pressure Blood Pressure [Right Arm] 111/88 Blood Pressure Mean Blood Pressure Mean [Right Arm] 95 Pulse Oximetry 96 Oxygen Delivery Method Room Air Sepsis Recent Fever Within 48 Hours Sepsis New/Unexplained Change in Mental Status Sepsis Action Taken by Nursing 05/13/25 16:54 05/13/25 16:54 05/13/25 16:54 Temperature Temperature Source Pulse Rate Pulse Rate [Apical] Pulse Rate from SpO2 Sensor Respiratory Rate Respiratory Effort / Characteristics Blood Pressure 111/88 111/88 111/88 Blood Pressure [Right Arm] Blood Pressure Mean 91 91 91 Blood Pressure Mean [Right Arm] Pulse Oximetry Oxygen Delivery Method Sepsis Recent Fever Within 48 Hours Sepsis New/Unexplained Change in Mental Status Sepsis Action Taken by Nursing 05/13/25 16:54 05/13/25 16:54 05/13/25 16:54 Temperature Temperature Source Pulse Rate 137 H Pulse Rate [Apical] Pulse Rate from SpO2 Sensor Respiratory Rate 24 Respiratory Effort / Characteristics Blood Pressure 111/88 111/88 Blood Pressure [Right Arm] Blood Pressure Mean 91 91 Blood Pressure Mean [Right Arm] Pulse Oximetry Oxygen Delivery Method Sepsis Recent Fever Within 48 Hours Sepsis New/Unexplained Change in Mental Status Sepsis Action Taken by Nursing 05/13/25 17:00 05/13/25 17:00 05/13/25 17:00 Temperature Temperature Source Pulse Rate Pulse Rate [Apical] 145 H Pulse Rate from SpO2 Sensor Respiratory Rate 16 Respiratory Effort / Characteristics Blood Pressure 116/87 116/87 Blood Pressure [Right Arm] 114/87 Blood Pressure Mean 101 101 Blood Pressure Mean [Right Arm] 96 Pulse Oximetry 96 Oxygen Delivery Method Room Air Sepsis Recent Fever Within 48 Hours Sepsis New/Unexplained Change in Mental Status Sepsis Action Taken by Nursing 05/13/25 17:00 05/13/25 17:00 05/13/25 17:00 Temperature Temperature Source Pulse Rate Pulse Rate [Apical] Pulse Rate from SpO2 Sensor Respiratory Rate Respiratory Effort / Characteristics Blood Pressure 116/87 116/87 116/87 Blood Pressure [Right Arm] Blood Pressure Mean 101 101 101 Blood Pressure Mean [Right Arm] Pulse Oximetry Oxygen Delivery Method Sepsis Recent Fever Within 48 Hours Sepsis New/Unexplained Change in Mental Status Sepsis Action Taken by Nursing 05/13/25 17:00 05/13/25 17:15 05/13/25 17:16 Temperature Temperature Source Pulse Rate 145 H 120 H Pulse Rate [Apical] Pulse Rate from SpO2 Sensor Respiratory Rate 22 21 Respiratory Effort / Characteristics Blood Pressure 111/90 Blood Pressure [Right Arm] Blood Pressure Mean 101 Blood Pressure Mean [Right Arm] Pulse Oximetry Oxygen Delivery Method Sepsis Recent Fever Within 48 Hours Sepsis New/Unexplained Change in Mental Status Sepsis Action Taken by Nursing 05/13/25 17:16 05/13/25 17:16 05/13/25 17:16 Temperature Temperature Source Pulse Rate Pulse Rate [Apical] Pulse Rate from SpO2 Sensor Respiratory Rate Respiratory Effort / Characteristics Blood Pressure 111/90 111/90 111/90 Blood Pressure [Right Arm] Blood Pressure Mean 101 101 101 Blood Pressure Mean [Right Arm] Pulse Oximetry Oxygen Delivery Method Sepsis Recent Fever Within 48 Hours Sepsis New/Unexplained Change in Mental Status Sepsis Action Taken by Nursing 05/13/25 17:16 05/13/25 17:21 05/13/25 17:21 Temperature Temperature Source Pulse Rate 133 H Pulse Rate [Apical] Pulse Rate from SpO2 Sensor Respiratory Rate Respiratory Effort / Characteristics Blood Pressure 111/90 125/79 125/79 Blood Pressure [Right Arm] Blood Pressure Mean 101 82 Blood Pressure Mean [Right Arm] Pulse Oximetry Oxygen Delivery Method Sepsis Recent Fever Within 48 Hours Sepsis New/Unexplained Change in Mental Status Sepsis Action Taken by Nursing 05/13/25 17:21 05/13/25 17:21 05/13/25 17:21 Temperature Temperature Source Pulse Rate Pulse Rate [Apical] Pulse Rate from SpO2 Sensor Respiratory Rate Respiratory Effort / Characteristics Blood Pressure 125/79 125/79 125/79 Blood Pressure [Right Arm] Blood Pressure Mean 82 82 82 Blood Pressure Mean [Right Arm] Pulse Oximetry Oxygen Delivery Method Sepsis Recent Fever Within 48 Hours Sepsis New/Unexplained Change in Mental Status Sepsis Action Taken by Nursing 05/13/25 17:21 05/13/25 17:21 05/13/25 17:30 Temperature Temperature Source Pulse Rate 120 H 140 H Pulse Rate [Apical] Pulse Rate from SpO2 Sensor 132 H Respiratory Rate 22 23 Respiratory Effort / Characteristics Blood Pressure 125/79 Blood Pressure [Right Arm] Blood Pressure Mean 82 Blood Pressure Mean [Right Arm] Pulse Oximetry 93 Oxygen Delivery Method Sepsis Recent Fever Within 48 Hours Sepsis New/Unexplained Change in Mental Status Sepsis Action Taken by Nursing 05/13/25 17:45 05/13/25 17:45 05/13/25 17:45 Temperature Temperature Source Pulse Rate 127 H Pulse Rate [Apical] Pulse Rate from SpO2 Sensor Respiratory Rate Respiratory Effort / Characteristics Blood Pressure 109/81 109/81 109/81 Blood Pressure [Right Arm] Blood Pressure Mean 84 84 Blood Pressure Mean [Right Arm] Pulse Oximetry Oxygen Delivery Method Sepsis Recent Fever Within 48 Hours Sepsis New/Unexplained Change in Mental Status Sepsis Action Taken by Nursing 05/13/25 17:45 05/13/25 17:45 05/13/25 17:45 Temperature Temperature Source Pulse Rate Pulse Rate [Apical] Pulse Rate from SpO2 Sensor Respiratory Rate Respiratory Effort / Characteristics Blood Pressure 109/81 109/81 109/81 Blood Pressure [Right Arm] Blood Pressure Mean 84 84 84 Blood Pressure Mean [Right Arm] Pulse Oximetry Oxygen Delivery Method Sepsis Recent Fever Within 48 Hours Sepsis New/Unexplained Change in Mental Status Sepsis Action Taken by Nursing 05/13/25 17:45 05/13/25 17:47 05/13/25 18:00 Temperature Temperature Source Pulse Rate 128 H 128 H Pulse Rate [Apical] 118 H Pulse Rate from SpO2 Sensor Respiratory Rate 22 16 Respiratory Effort / Characteristics Blood Pressure 109/81 Blood Pressure [Right Arm] 99/71 L Blood Pressure Mean Blood Pressure Mean [Right Arm] 80 Pulse Oximetry Oxygen Delivery Method Sepsis Recent Fever Within 48 Hours Sepsis New/Unexplained Change in Mental Status Sepsis Action Taken by Nursing 05/13/25 18:00 05/13/25 18:01 05/13/25 18:01 Temperature Temperature Source Pulse Rate 115 H Pulse Rate [Apical] Pulse Rate from SpO2 Sensor Respiratory Rate 19 Respiratory Effort / Characteristics Blood Pressure 85/73 L 85/73 L Blood Pressure [Right Arm] Blood Pressure Mean 75 75 Blood Pressure Mean [Right Arm] Pulse Oximetry Oxygen Delivery Method Sepsis Recent Fever Within 48 Hours Sepsis New/Unexplained Change in Mental Status Sepsis Action Taken by Nursing 05/13/25 18:01 05/13/25 18:01 05/13/25 18:01 Temperature Temperature Source Pulse Rate Pulse Rate [Apical] Pulse Rate from SpO2 Sensor Respiratory Rate Respiratory Effort / Characteristics Blood Pressure 85/73 L 85/73 L 85/73 L Blood Pressure [Right Arm] Blood Pressure Mean 75 75 75 Blood Pressure Mean [Right Arm] Pulse Oximetry Oxygen Delivery Method Sepsis Recent Fever Within 48 Hours Sepsis New/Unexplained Change in Mental Status Sepsis Action Taken by Nursing 05/13/25 18:15 05/13/25 18:17 05/13/25 18:17 Temperature Temperature Source Pulse Rate 122 H Pulse Rate [Apical] Pulse Rate from SpO2 Sensor Respiratory Rate 21 Respiratory Effort / Characteristics Blood Pressure 99/71 L 99/71 L Blood Pressure [Right Arm] Blood Pressure Mean 77 77 Blood Pressure Mean [Right Arm] Pulse Oximetry Oxygen Delivery Method Sepsis Recent Fever Within 48 Hours Sepsis New/Unexplained Change in Mental Status Sepsis Action Taken by Nursing 05/13/25 18:19 Temperature Temperature Source Pulse Rate 118 H Pulse Rate [Apical] Pulse Rate from SpO2 Sensor Respiratory Rate Respiratory Effort / Characteristics Blood Pressure 99/71 L Blood Pressure [Right Arm] Blood Pressure Mean Blood Pressure Mean [Right Arm] Pulse Oximetry Oxygen Delivery Method Sepsis Recent Fever Within 48 Hours Sepsis New/Unexplained Change in Mental Status Sepsis Action Taken by Nursing Laboratory Data 05/13/25 16:47 05/13/25 16:47 Lab Results 05/13/25 05/13/25 05/13/25 Range/Units 16:30 16:47 16:58 WBC 11.29 H (4.8-10.8) K/ul RBC 5.47 (4.70-6.10) M/uL Hgb 13.0 L (14.0-18.0) g/dL Hct 39.8 L (42.0-52.0) % MCV 72.8 L (80.0-100.0) fL MCH 23.8 L (25.0-34.0) pg MCHC 32.7 (32.0-36.0) g/dL RDW Std Deviation 48.3 H (36.4-46.3) fL RDW Coeff of Alex 20.1 H (11.5-14.5) % Plt Count 290 (130-400) K/uL MPV 11.2 (9.4-12.4) fL Immature Gran % (Auto) 0.3 % Neut % (Auto) 81.6 % Lymph % (Auto) 10.4 % Morrow % (Auto) 7.1 % Eos % (Auto) 0.2 % Baso % (Auto) 0.4 % Neut # (Auto) 9.22 H (1.40-6.50) K/uL Lymph # (Auto) 1.17 L (1.20-3.40) K/uL Morrow # (Auto) 0.80 H (0.11-0.59) K/uL Eos # (Auto) 0.02 (0.00-0.50) K/uL Baso # (Auto) 0.05 (0.00-0.20) K/uL Immature Gran # (Auto) 0.03 (0.01-0.20) K/uL Absolute Nucleated RBC 0.02 (0.00-0.12) K/uL Nucleated RBC % (auto) 0.2 % Toxic Vacuolation 1+ Polychromasia 1+ Anisocytosis Present Ovalocytes 1+ Sodium 130 L (136-145) mmol/L Potassium 4.4 (3.5-5.1) mmol/L Chloride 101 (98-107) mmol/L Carbon Dioxide 18 L (21-32) mmol/L Anion Gap 11 (3-11) BUN 20 (6-23) mg/dl Creatinine 0.88 (0.6-1.4) mg/dl Est Cr Clr Drug Dosing 102.8 ml/min eGFR 97.83 BUN/Creatinine Ratio 22.7 H (10-20) Glucose 103 H (70-99(Fasting)) mg/dl Lactate 2.4 H* (0.4-2.0) mmol/L Calcium 9.1 (8.6-10.3) mg/dl Magnesium 1.8 (1.7-2.4) mg/dl Total Bilirubin 2.4 H (0.2-1.0) mg/dl Direct Bilirubin 1.0 H (0-0.2) mg/dl AST 520 H (13-39) U/L ALT 576 H (7-52) U/L Alkaline Phosphatase 94 (34-104) U/L Total Creatine Kinase 27 L (30-223) U/L Troponin I High Sens 39.2 H (0-20) pg/ml B-Natriuretic Peptide 1517 H (0-100) pg/ml Total Protein 6.5 (6.0-8.3) gm/dl Albumin 3.7 (3.4-5.0) gm/dl Procalcitonin 0.32 (0-0.5) ng/ml Urine Color Dark Yellow Urine Appearance Clear (Clear) Urine pH 5.0 (4.5-7.5) Ur Specific Superior 1.025 (1.000-1.030) Urine Protein 1+ H (Negative) Urine Glucose (UA) 3+ H (Negative) Urine Ketones 2+ H (Negative) Urine Blood Negative (Negative) Urine Nitrite Negative (Negative) Urine Bilirubin 1+ H (Negative) Urine Urobilinogen Negative (Negative) Ur Leukocyte Esterase Negative (Negative) Urine WBC (Auto) 0-5 (0-5) /hpf Urine RBC (Auto) 0-2 (0-2) /hpf U Hyaline Cast (Auto) 0-2 (0-2) /lpf U Epithel Cells (Auto) 0-2 (0-2) /hpf Urine Bacteria (Auto) None Seen (None Seen) Urine Comment SARS-CoV-2 (PCR) NEGATIVE (Negative) Influenza Type A (PCR) Negative (Neg) Influenza Type B (PCR) Negative (Neg) RSV (RT-PCR) Negative (Neg) Administered Medications Discontinued Medications Sodium Chloride (Nss) 1,000 mls @ 999 mls/hr IV .[id number] ONE Stop: 05/13/25 17:49 Last Infusion: 05/13/25 17:04 Dose: Infused Documented By: Admin: 05/13/25 16:00 Dose: 999 mls/hr Documented By: SHYANN Ceftriaxone Sodium (Rocephin) 2,000 mg in 50 mls @ 100 mls/hr IV NOW STA Stop: 05/13/25 18:08 Last Admin: 05/13/25 17:47 Dose: 100 mls/hr Documented By: SHYANN Metoprolol Tartrate (Metoprolol Tartrate 1 Mg/Ml Vial) 5 mg IV NOW STA Stop: 05/13/25 17:13 Last Admin: 05/13/25 17:21 Dose: 5 mg Documented By: GONZALEZ Metoprolol Tartrate (Metoprolol Tartrate 1 Mg/Ml Vial) 5 mg IV NOW STA Stop: 05/13/25 17:40 Last Admin: 05/13/25 17:47 Dose: 5 mg Documented By: SHYANN Imaging Data Radiologist's Impression: Cervical Spine CT 05/13/25 15:45 Technique: Axial computed tomography images were obtained of the cervical spine without intravenous contrast. Sagittal and coronal reconstructions were obtained Findings: No fracture is identified. No listhesis is seen. No focal osseous lesion is evident. The atlantoaxial articulation appears unremarkable. At C2-3, no disc herniation is identified. There is no spinal stenosis. The neural foramen are patent At C3-4, no disc herniation is identified. There is no spinal stenosis. The neural foramen are patent At C4-5, there is a mild disc bulge. There is no spinal stenosis. The neural foramen are patent At C5-6, there is mild spinal stenosis due to a disc bulge. There is mild left neural foramen narrowing At C6-7, there is a disc bulge without clear spinal cord deformity. The neural foramen are patent At C7-T1,no disc herniation is identified. There is no spinal stenosis. The neural foramen are patent There is a 6 mm right apical nodule. The visualized soft tissues of the neck appear unremarkable. No foreign body is seen Impression: 1. No definite cervical spine fracture 2. Mild spinal stenosis at C5-6 3. Indeterminate nodule in the right lung apex. A follow-up chest CT could be obtained Electronically signed by Jim Hough 05-13-2025 5:10 PM Chest X-Ray 05/13/25 15:45 SINGLE VIEW CHEST CLINICAL HISTORY: Sepsis FINDINGS: 2 AP, portable, upright chest radiographs are compared to chest x-ray and chest CT dated 04/25/2025. The heart is enlarged noting atherosclerotic calcification of the thoracic aorta. There is pulmonary vascular congestion. Bilateral airspace opacities likely representing mild interstitial edema. No large pleural effusion or pneumothorax is seen. The skeletal structures are osteopenic. The bony thorax is grossly intact. 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 IMPRESSION: 1. Cardiomegaly with evidence of congestive failure. 2. Mild bilateral airspace opacities likely representing mild pulmonary edema. Correlate clinically. Radiographic follow-up to resolution is recommended. 3. No large pleural effusion is seen ACT 112: Negative or not required by law. Electronically signed by: Alcon Roach M.D. 05/13/2025 4:[address] 05/13/25 15:45 Clinical History: Fall Technique: Axial computed tomography images were obtained of the brain from the vertex to the skull base without intravenous contrast. Comparison is made to the prior CT dated 04/07/2022 Findings: There is no definite sign of intracranial hemorrhage. There is normal house-white matter differentiation with no sign of acute or old infarction. No midline shift or other form of herniation is identified. There is no hydrocephalus. There is unchanged mild calcification along the falx cerebri and tentorium. There is unchanged calcification in the left middle cerebral artery No obvious mass lesion is seen on this noncontrast examination. The visualized portions of the orbits and paranasal sinuses appear unremarkable. The mastoid air cells appear clear Impression: No definite acute pathology Electronically signed by Jim Hough 05-13-2025 5:06 PM Discharge Plan Visit Data Chief Complaint: Fall Stated Complaint: Fall on thinners hit head ED Provider: Gris Feliz Discharge Problem: Sepsis, Atrial fibrillation with rapid ventricular response, Elevated troponin, Generalized weakness, Nausea & vomiting, Elevated lactic acid level, Hyperbilirubinemia, Transaminitis, Acute exacerbation of CHF (congestive heart failure), Elevated brain natriuretic peptide (BNP) level, Fall from standing, Head injury Patient Disposition: Admitted As Inpatient Condition: Fair Forms Stand Alone Forms: [facility] Prescriptions Prescriptions: No Action nitroglycerin 0.4 mg tablet, sublingual 0.4 mg sublingual UD PRN (Reason: Chest Pain) Rx Instructions: NEEDED FOR CHEST PAIN : ONE TABLET UNDER THE TONGUE EVERY 5 MINUTES UP TO THREE DOSES. sulfasalazine 500 mg tablet 1,000 mg PO BID Qty: 120 0RF ondansetron HCl 4 mg tablet 4 mg PO Q8H PRN (Reason: Nausea) Qty: 10 0RF alendronate 70 mg tablet 70 mg PO WK Qty: 4 0RF Rx Instructions: TAKE THIS MED EVERY sunday metoprolol succinate 100 mg tablet extended release 24 hr 150 mg PO AMHS Qty: 90 0RF Rx Instructions: 1 & 1/2 tablet dose omeprazole 40 mg capsule,delayed release(DR/EC) 40 mg PO DAILYBB Qty: 30 0RF spironolactone 25 mg tablet 12.5 mg PO QAM Qty: 15 0RF digoxin 125 mcg (0.125 mg) tablet 0.125 mcg PO QAM Qty: 30 0RF cholecalciferol (vitamin D3) [Vitamin D3] 10 mcg (400 unit) Capsule 10 mcg PO QAM Qty: 30 0RF duloxetine 30 mg capsule,delayed release(DR/EC) 30 mg PO QAM Qty: 30 0RF Jardiance 25 mg tablet 25 mg PO QAM sacubitril-valsartan [Entresto] 24-26 mg tablet 1 tab PO AMHS Trelegy Ellipta 100-62.5-25 mcg blister with device 1 ea INHALATION QAM furosemide 20 mg Tablet 40 mg PO DAILY magnesium oxide 400 mg (241.3 mg magnesium) tablet 400 mg PO QAM aspirin 81 mg Tablet 81 mg PO DAILY prednisone 5 mg tablet 10 mg PO DAILY atorvastatin 10 mg tablet 10 mg PO DAILY leflunomide 10 mg Tablet 10 mg PO DAILY divalproex 250 mg tablet extended release 24 hr 250 mg PO DAILY sildenafil (pulm.hypertension) 20 mg Tablet 20 mg PO TID Rx Instructions: administer doses at least 4-6 hours apart amoxicillin-pot clavulanate 875-125 mg Tablet 1 tab PO BIDM Qty: 10 0RF oxycodone-acetaminophen 10-325 mg tablet 1 tab PO BID PRN (Reason: Pain,severe) Qty: 15 0RF Eliquis 5 mg tablet 5 mg PO UD Qty: 76 0RF Rx Instructions: 2 tabs yesTwice Daily for 13 doses and then 1 tab Twice daily as before Referrals Referrals: Anahy Grayson MD [Primary Care Provider] -
[2025-05-13 16:48] LABS: Appearance Urine Clear (Clear); Bacteria Urine Automated None Seen (None Seen); Cast Urine Automated 0-2 /lpf (0-2); Epithelial Cell Urine Auto 0-2 /hpf (0-2); Glucose Urine UA 3+ (Negative); RBC Urine Automated 0-2 /hpf (0-2); WBC Urine Automated 0-5 /hpf (0-5)
[2025-05-13 17:05] LABS: Hematocrit (blood only) 39.8 % (42.0-52.0); Hemoglobin 13.0 g/dL (14.0-18.0); Immature Granulocytes # (auto) 0.03 K/uL (0.01-0.20); Immature Granulocytes % (auto) 0.3 %; Mean Corpuscular Hemoglobin 23.8 pg (25.0-34.0); Mean Corpuscular Volume 72.8 fL (80.0-100.0); Platelet Count 290 K/uL (130-400); RDW Standard Deviation 48.3 fL (36.4-46.3); Red Blood Count 5.47 M/uL (4.70-6.10); White Blood Count 11.29 K/ul (4.8-10.8)
--- NOTE | 2025-05-13 17:06 | CT Scan Report ---
Clinical History: Fall Technique: Axial computed tomography images were obtained of the brain from the vertex to the skull base without intravenous contrast. Comparison is made to the prior CT dated 04/07/2022 Findings: There is no definite sign of intracranial hemorrhage. There is normal house-white matter differentiation with no sign of acute or old infarction. No midline shift or other form of herniation is identified. There is no hydrocephalus. There is unchanged mild calcification along the falx cerebri and tentorium. There is unchanged calcification in the left middle cerebral artery No obvious mass lesion is seen on this noncontrast examination. The visualized portions of the orbits and paranasal sinuses appear unremarkable. The mastoid air cells appear clear Impression: No definite acute pathology Electronically signed by Jim Hough 05-13-2025 5:06 PM
--- NOTE | 2025-05-13 17:11 | CT Scan Report ---
Technique: Axial computed tomography images were obtained of the cervical spine without intravenous contrast. Sagittal and coronal reconstructions were obtained Findings: No fracture is identified. No listhesis is seen. No focal osseous lesion is evident. The atlantoaxial articulation appears unremarkable. At C2-3, no disc herniation is identified. There is no spinal stenosis. The neural foramen are patent At C3-4, no disc herniation is identified. There is no spinal stenosis. The neural foramen are patent At C4-5, there is a mild disc bulge. There is no spinal stenosis. The neural foramen are patent At C5-6, there is mild spinal stenosis due to a disc bulge. There is mild left neural foramen narrowing At C6-7, there is a disc bulge without clear spinal cord deformity. The neural foramen are patent At C7-T1,no disc herniation is identified. There is no spinal stenosis. The neural foramen are patent There is a 6 mm right apical nodule. The visualized soft tissues of the neck appear unremarkable. No foreign body is seen Impression: 1. No definite cervical spine fracture 2. Mild spinal stenosis at C5-6 3. Indeterminate nodule in the right lung apex. A follow-up chest CT could be obtained Electronically signed by Jim Hough 05-13-2025 5:10 PM
[2025-05-13] MEDS: METOPROLOL TARTRATE 1 MG/ML VIAL IV STA ×2 (17:21→17:47)
[2025-05-13 17:23] LABS: Anion Gap 11.0 (3-11); Blood Urea Nitrogen 20.0 mg/dl (6-23); Calcium 9.1 mg/dl (8.6-10.3); Carbon Dioxide 18.0 mmol/L (21-32); Chloride 101.0 mmol/L (98-107); Creatinine Clr Calc Pharmacy 102.8 ml/min; Glucose 103.0 mg/dl (70-99(Fasting)); Potassium 4.4 mmol/L (3.5-5.1); Sodium 130.0 mmol/L (136-145)
[2025-05-13 17:28] LABS: Anisocytosis Present; Ovalocytes 1+; Polychromasia 1+; Toxic Vacuolation 1+
[2025-05-13 17:43] LABS: Alanine Aminotransferase 576.0 U/L (7-52); Albumin Level 3.7 gm/dl (3.4-5.0); Alkaline Phosphatase 94.0 U/L (34-104); Bilirubin,Total 2.4 mg/dl (0.2-1.0); Creatine Kinase 27.0 U/L (30-223); Magnesium 1.8 mg/dl (1.7-2.4); Total Protein 6.5 gm/dl (6.0-8.3)
[2025-05-13] MEDS: cefTRIAXone SODIUM 2,000 MG/50 ML BAG IV STA (17:47)
[2025-05-13 17:48] LABS: Influenza A virus by PCR Negative (Neg); Influenza B virus by PCR Negative (Neg); SARS CoV2 RNA(COVID-19) Ceph NEGATIVE (Negative)
--- NOTE | 2025-05-13 18:45 | History & Physical Report ---
Date of Service May 13, 2025 Assessment & Plan (1) Transaminitis: (2) Nausea & vomiting: (3) Atrial fibrillation with rapid ventricular response: (4) Hypotension: (5) Splenic infarct: (6) Chronic heart failure with preserved ejection fraction (HFpEF): (7) ASCVD (arteriosclerotic cardiovascular disease): (8) COPD (chronic obstructive pulmonary disease): (9) PAD (peripheral artery disease): (10) Rheumatoid arthritis: Plan: #Transaminitis #Nausea, Vomiting #Meets SIRS criteria. Possible Sepsis 00 #Hypotension #Splenic infarct Patient is a 60 year old male with PMH rheumatoid arthritis, Raynaud's, persistent atrial fibrillation, on Eliquis, COPD, history cardiomyopathy in setting of a-fib RVR in 06/2022, Since with improved EF (55% in 12/2024), CAD, PAD, H/O PE, and other problems listed below presented to ER with c/o weakness and N/V x 2 weeks and unable to retain home medications 12/26/24 Echo: EF: 55-60%, mild mitral annular calcification, mild tricuspid regurgitation, mild aortic root dilation Previously on digoxin however patient unsure if taking In ER afebrile, P: 120, R: 21, BP: 114/81, 96% on RA WBC: 11.3. Lactate: 2.4. Procalcitonin: 0.3. Respiratory Biofire negative T bili: 2.4. AST: 520. ALT: 576. Alk Phos: 94, Lipase: 12 (New LFT elevation since labs on 04/25/25) CXR: Cardiomegaly with evidence of congestive failure. Mild bilateral airspace opacities likely representing mild pulmonary edema. No large pleural effusion is seen In ER given 1L NSS, Rocephin Then Zosyn ordered. In ER given two doses Lopressor 5mg IV. Blood pressures down trending 85/73, HR still in 120's. Give additional 1L NSS now. Digoxin IV was given. BP's improved to low 100s systolic and maintenance IVF ordered, but BPs have downtrended again to 80's systolic. MAP 70. HR: 120's Initial concern for possible sepsis, possible biliary obstruction/cholangitis and CT Abd/pelvis ordered CT Abd/pelvis: New splenic infarct. Hepatic cirrhosis with minimal amount of intra-abdominal ascites improved since prior exam. 3 cm pulmonary nodule right lower lobe. Findings are concerning for neoplasm but stable since prior exam. Blood cultures pending Repeat Lactate: 2.5 Troponin: 39-43 Patient examines more on dry side currently Continue Zosyn IVF NPO US abdomen ordered Hepatitis panel ordered Trend troponin Trend lactate Start Heparin GI consult, discussed with freight traffic consultant who recommended continued antibiotics AM labs, AM cortisol, TSH. Patient prescribed 10mg prednisone daily however having vomiting. Initially planned for admission to PCU however will admit to ICU with continued hypotension. Discussed with mailing machine operator freight traffic consultant Further management per mailing machine operator #Atrial fibrillation RVR Anticoagulated on Eliquis. Unable to retain home medications secondary to vomiting past couple weeks Unclear if patient taking digoxin In ER given IV lopressor x 2 doses. Hypotensive so avoided further beta blockers and gave dose digoxin Monitor closely Trend troponin Echo ordered Cardiology consult for assistance with a-fib RVR #Dizziness Ongoing dizziness. Possible secondary to underlying illness Reported fall today CT head: no acute intracranial abnormality #Chronic HFpEF BNP:[id number] Plan to hold home atorvastatin with elevated LFTs Holding home Entresto, spironolactone, jardiance at this time as above with hypotension #Rheumatoid arthritis: On home leflunomide, sulfasalazine and prednisone #CAD #PAD Nonobstructive CAD per cardiac catheterization 04/20/2021 # Mood disorder: On home divalproex #COPD No signs of acute exacerbation at this time On home Trelegy DVT prophylaxis Heparin --Patient's girlfriend, Hayley and medical POA, would like updates from provider. Her phone number is [phone]. Admit ICU Full Code as per discussion with pt Follows with Dr Grayson for routine care Pt was seen and care coordinated with Dr Noble. See addendum I spent a total of 80 minutes reviewing notes, outpatient records, labs, medication, coordinating, documenting and providing care for this patient excluding time spent in the performance of separately billed services and excluding time spent by another provider/QHP. History of Present Illness Chief Complaint: N/V, weakness Primary Care Provider: Anahy Grayson MD Patient is a 60 year old male with PMH rheumatoid arthritis, Raynaud's, persistent atrial fibrillation, on Eliquis, COPD, history cardiomyopathy in setting of a-fib RVR in 06/2022, Since with improved EF (55% in 12/2024), CAD, PAD, and other problems listed below presented to ER with c/o weakness and N/V x 2 weeks. Per inpatient chart review patient with recent [facility] admission 04/25/25-04/26/25 for acute on chronic HFpEF, a-fib RVR and his home medications were resumed. Reports past two weeks with nausea, vomiting after eating or taking pills. States few minutes after takes medication he vomits. States mid abdominal pain after vomiting. States past 2 weeks with weakness, lightheadedness. States just lying around as feels so ill. Denies any known fever or chills. Past couple of days had one episode of chest pain daily that occurred at rest and resolved in few minutes. Denies noted palpitations, SOB. Reports today lightheaded and fell and hit head. Denies LOC. States two days ago started with sore throat and non- productive cough. States "don't like doctors and didn't want to come in" but he reports his girlfriend made him come to ER today for evaluation. Denies hematemesis, melena, hematochezia, diarrhea, constipation, ROJAS, palpitations, choking, otalgia, rhinorrhea, extremity edema, rashes, urinary symptoms. Denies ETOH use. Spoke to patient's girlfriend Hayley with patient's permission and she states he smokes marijuana daily but thinks last used 3 days ago. She reports is working with PCP for workup of cognitive issues and forgetfulness. She reports prior ETOH use but is unaware of recent use. Reports patient had prior meth use but denies any known recent use. She discusses that he often doesn't take his home medications despite continued reminders. She reports previously attempted to help patient with medication but he denies assistance. She reports has noticed a steady decline in patient's health over the past month and concerned he may be approaching soon. Discussed with ER physician who reports a-fib RVR given doses of IV Lopressor and elevated LFTs with CT abd/pelvis and abd US were ordered but not completed yet. Allergies Allergy/AdvReac Type Severity Reaction Status Date / Time No Known Allergies Allergy Verified 12/29/24 08:57 Home Medications Medication Instructions Recorded Confirmed Type nitroglycerin 0.4 mg sublingual 0.4 mg sublingual UD PRN Chest Pain 08/27/21 05/13/25 History tablet cholecalciferol (vitamin D3) 10 10 mcg PO QAM #30 caps 12/04/23 05/13/25 Rx mcg (400 unit) capsule (Vitamin D3) digoxin 125 mcg (0.125 mg) tablet 0.125 mcg (0.001 x 125 mcg (0.125 12/04/23 05/13/25 Rx mg)) PO QAM #30 tabs duloxetine 30 mg capsule,delayed 30 mg PO QAM #30 caps 12/04/23 05/13/25 Rx release omeprazole 40 mg capsule,delayed 40 mg PO DAILYBB #30 caps 12/04/23 05/13/25 Rx release spironolactone 25 mg tablet 12.5 mg (1/2 x 25 mg) PO QAM #15 12/04/23 05/13/25 Rx tabs sulfasalazine 500 mg tablet 1,000 mg (2 x 500 mg) PO BID #120 12/04/23 05/13/25 Rx tabs aspirin 81 mg tablet 81 mg PO QAM 12/25/24 05/13/25 History atorvastatin 10 mg tablet 10 mg PO DAILY 12/25/24 05/13/25 History divalproex 250 mg tablet,extended 250 mg PO QAM 12/25/24 05/13/25 History release 24 hr empagliflozin 25 mg tablet 25 mg PO QAM 12/25/24 05/13/25 History (Jardiance) fluticasone fur. 100 mcg-umeclid 1 ea inhalation QAM 12/25/24 05/13/25 History 62.5 mcg-vilant 25 mcg inhalat.powder (Trelegy Ellipta) leflunomide 10 mg tablet 10 mg PO QAM 12/25/24 05/13/25 History magnesium oxide 400 mg (241.3 mg 400 mg PO QAM 12/25/24 05/13/25 History magnesium) tablet prednisone 5 mg tablet 10 mg PO DAILY RHEUMATOID ARTHRITIS 12/25/24 05/13/25 History sacubitril 24 mg-valsartan 26 mg 1 tab PO AMHS 12/25/24 05/13/25 History tablet (Entresto) oxycodone-acetaminophen 10 mg-325 1 tab PO BID PRN Pain,severe #15 12/30/24 05/13/25 Rx mg tablet tabs apixaban 5 mg tablet (Eliquis) 5 mg PO AMHS 05/13/25 05/13/25 History metoprolol succinate 50 mg 50 mg PO Q12 05/13/25 05/13/25 History tablet,extended release 24 hr Past Med/Surg History Problem List Splenic infarct Hypotension Head injury (Acute) Fall from standing (Acute) Elevated brain natriuretic peptide (BNP) level (Acute) Acute exacerbation of CHF (congestive heart failure) (Acute) Transaminitis (Acute) Hyperbilirubinemia (Acute) Elevated lactic acid level (Acute) Nausea & vomiting (Acute) Generalized weakness (Acute) Elevated troponin (Acute) Atrial fibrillation with rapid ventricular response (Acute) Sepsis (Acute) (HFpEF) heart failure with preserved ejection fraction Abdominal pain (Acute) Elevated troponin (Acute) LEVIN (dyspnea on exertion) (Acute) A-fib (Acute) CHF (congestive heart failure) (Acute) Amputation of right great toe Amputation of left great toe Cellulitis of left foot Mood disorder Osteomyelitis of great toe of left foot (Acute) Chest pain at rest Atrial fibrillation with rapid ventricular response (Acute) Depressive disorder Raynauds disease PAD (peripheral artery disease) (Acute) HTN (hypertension) Hepatitis C Chronic steroid use (Chronic) Rheumatoid arthritis (Chronic) GERD (gastroesophageal reflux disease) Osteoarthritis of right knee (Chronic) Status post right knee replacement (Acute) Medical History Chronic heart failure with preserved ejection fraction (HFpEF) Heart failure with improved ejection fraction (HFimpEF) Medical non-compliance COPD (chronic obstructive pulmonary disease) History of osteomyelitis ASCVD (arteriosclerotic cardiovascular disease) Chronic atrial fibrillation Dyslipidemia, goal LDL below 70 Erectile dysfunction Tobacco use disorder Surgical History History of cardiac cath History of colonoscopy Hx of tonsillectomy Family History Other Heart disease Hypertension Social History Smoking Status: Former smoker Tobacco Type: Cigarettes Cigarettes Per Day: 5; Second Hand Exposure: No; Do You Dip or Chew Tobacco: No; Hx Alcohol Use: No (No ETOH for past 3 years) Hx Substance Use: No Preferred Language: Russian Communication Ability: Effective Almond Blancher Operator Required: No Beliefs That Will Affect Care: None Current Living Situation: Family Current Living Situation Comment: Lives at home with girlfriend Hayley, & their child Danica Feels Safe at Home: Yes Assistive Devices: Cane Review of Systems Review of Systems: All systems reviewed & are unremarkable except as noted in HPI & below Physical Exam Physical Exam: General: no distress at rest in bed, +ill appearing obese male Head: normocephalic, atraumatic Eyes: PERRL, conjunctiva non-injected, +icteric ENT: normal inspection external ears, nose, mucous membranes dry Neck: supple, trachea midline Lungs: clear, no respiratory distress, no wheezing/rhonchi/rales CV: irregularly irregular, rate 120, no pretibial edema Abd: normal BS, soft,+tenderness to palpation epigastric and LUQ without rebound or guarding, negative Sheppard's sign on exam Ext: no cyanosis, no calf tenderness Neuro: A&O x 3, no focal deficits noted, normal affect Skin: warm, dry Results & Data Results & Data Vital Signs (Past 12 Hours) Vital Signs Temp Pulse Pulse Resp BP BP Pulse Ox 05/13/25 18:19 118 H 99/71 L 05/13/25 18:17 99/71 L 05/13/25 18:17 99/71 L 05/13/25 18:15 122 H 21 05/13/25 18:01 85/73 L 05/13/25 18:01 85/73 L 05/13/25 18:01 85/73 L 05/13/25 18:01 85/73 L 05/13/25 18:01 85/73 L 05/13/25 18:00 115 H 19 05/13/25 18:00 118 H 16 99/71 L 05/13/25 17:47 128 H 109/81 05/13/25 17:45 128 H 22 05/13/25 17:45 109/81 05/13/25 17:45 109/81 05/13/25 17:45 109/81 05/13/25 17:45 109/81 05/13/25 17:45 109/81 05/13/25 17:45 127 H 109/81 05/13/25 17:30 140 H 23 05/13/25 17:21 120 H 22 93 05/13/25 17:21 125/79 05/13/25 17:21 125/79 05/13/25 17:21 125/79 05/13/25 17:21 125/79 05/13/25 17:21 125/79 05/13/25 17:21 133 H 125/79 05/13/25 17:16 111/90 05/13/25 17:16 111/90 05/13/25 17:16 111/90 05/13/25 17:16 111/90 05/13/25 17:16 111/90 05/13/25 17:15 120 H 21 05/13/25 17:00 145 H 22 05/13/25 17:00 116/87 05/13/25 17:00 116/87 05/13/25 17:00 116/87 05/13/25 17:00 116/87 05/13/25 17:00 116/87 05/13/25 17:00 145 H 16 114/87 96 05/13/25 16:54 137 H 24 05/13/25 16:54 111/88 05/13/25 16:54 111/88 05/13/25 16:54 111/88 05/13/25 16:54 111/88 05/13/25 16:54 111/88 05/13/25 16:45 113 H 21 05/13/25 16:43 136 H 22 111/88 96 05/13/25 16:30 131 H 23 05/13/25 16:00 114 H 19 93 05/13/25 16:00 106/84 05/13/25 16:00 106/84 05/13/25 16:00 106/84 05/13/25 16:00 106/84 05/13/25 16:00 106/84 05/13/25 16:00 136 H 16 106/84 96 05/13/25 15:48 120 H 21 114/81 96 05/13/25 15:46 120 H 16 96 05/13/25 15:45 121 H 21 91 05/13/25 15:44 36.9 C 120 H 21 114/81 96 05/13/25 15:39 116 H 20 94 05/13/25 15:35 36.9 C 120 H 21 114/81 96 05/13/25 15:34 36.9 C 120 H 21 114/81 96 05/13/25 15:33 113 H O2 Del Method 05/13/25 18:19 05/13/25 18:17 05/13/25 18:17 05/13/25 18:15 05/13/25 18:01 05/13/25 18:01 05/13/25 18:01 05/13/25 18:01 05/13/25 18:01 05/13/25 18:00 05/13/25 18:00 05/13/25 17:47 05/13/25 17:45 05/13/25 17:45 05/13/25 17:45 05/13/25 17:45 05/13/25 17:45 05/13/25 17:45 05/13/25 17:45 05/13/25 17:30 05/13/25 17:21 05/13/25 17:21 05/13/25 17:21 05/13/25 17:21 05/13/25 17:21 05/13/25 17:21 05/13/25 17:21 05/13/25 17:16 05/13/25 17:16 05/13/25 17:16 05/13/25 17:16 05/13/25 17:16 05/13/25 17:15 05/13/25 17:00 05/13/25 17:00 05/13/25 17:00 05/13/25 17:00 05/13/25 17:00 05/13/25 17:00 05/13/25 17:00 Room Air 05/13/25 16:54 05/13/25 16:54 05/13/25 16:54 05/13/25 16:54 05/13/25 16:54 05/13/25 16:54 05/13/25 16:45 05/13/25 16:43 Room Air 05/13/25 16:30 05/13/25 16:00 05/13/25 16:00 05/13/25 16:00 05/13/25 16:00 05/13/25 16:00 05/13/25 16:00 05/13/25 16:00 05/13/25 15:48 Room Air 05/13/25 15:46 Room Air 05/13/25 15:45 05/13/25 15:44 Room Air 05/13/25 15:39 05/13/25 15:35 Room Air 05/13/25 15:34 Room Air 05/13/25 15:33 Laboratory Results Short CBC 05/13/25 Range/Units 16:47 WBC 11.29 H (4.8-10.8) K/ul Hgb 13.0 L (14.0-18.0) g/dL Hct 39.8 L (42.0-52.0) % Plt Count 290 (130-400) K/uL BMP 05/13/25 16:47 Sodium 130 L Potassium 4.4 Chloride 101 Carbon Dioxide 18 L BUN 20 Creatinine 0.88 Glucose 103 H Calcium 9.1 Cardiac Enzymes 05/13/25 Range/Units 16:47 Total Creatine Kinase 27 L (30-223) U/L Liver Function 05/13/25 Range/Units 16:47 Total Bilirubin 2.4 H (0.2-1.0) mg/dl Direct Bilirubin 1.0 H (0-0.2) mg/dl AST 520 H (13-39) U/L ALT 576 H (7-52) U/L Alkaline Phosphatase 94 (34-104) U/L Albumin 3.7 (3.4-5.0) gm/dl Urine 05/13/25 Range/Units 16:30 Urine Color Dark Yellow Urine Appearance Clear (Clear) Urine pH 5.0 (4.5-7.5) Ur Specific [place] 1.025 (1.000-1.030) Urine Protein 1+ H (Negative) Urine Glucose (UA) 3+ H (Negative) Diagnostic Findings Cervical Spine CT 05/13/25 15:45 Technique: Axial computed tomography images were obtained of the cervical spine without intravenous contrast. Sagittal and coronal reconstructions were obtained Findings: No fracture is identified. No listhesis is seen. No focal osseous lesion is evident. The atlantoaxial articulation appears unremarkable. At C2-3, no disc herniation is identified. There is no spinal stenosis. The neural foramen are patent At C3-4, no disc herniation is identified. There is no spinal stenosis. The neural foramen are patent At C4-5, there is a mild disc bulge. There is no spinal stenosis. The neural foramen are patent At C5-6, there is mild spinal stenosis due to a disc bulge. There is mild left neural foramen narrowing At C6-7, there is a disc bulge without clear spinal cord deformity. The neural foramen are patent At C7-T1,no disc herniation is identified. There is no spinal stenosis. The neural foramen are patent There is a 6 mm right apical nodule. The visualized soft tissues of the neck appear unremarkable. No foreign body is seen Impression: 1. No definite cervical spine fracture 2. Mild spinal stenosis at C5-6 3. Indeterminate nodule in the right lung apex. A follow-up chest CT could be obtained Electronically signed by Jim Hough 05-13-2025 5:10 PM Chest X-Ray 05/13/25 15:45 SINGLE VIEW CHEST CLINICAL HISTORY: Sepsis FINDINGS: 2 AP, portable, upright chest radiographs are compared to chest x-ray and chest CT dated 04/25/2025. The heart is enlarged noting atherosclerotic calcification of the thoracic aorta. There is pulmonary vascular congestion. Bilateral airspace opacities likely representing mild interstitial edema. No large pleural effusion or pneumothorax is seen. The skeletal structures are osteopenic. The bony thorax is grossly intact. 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 IMPRESSION: 1. Cardiomegaly with evidence of congestive failure. 2. Mild bilateral airspace opacities likely representing mild pulmonary edema. Correlate clinically. Radiographic follow-up to resolution is recommended. 3. No large pleural effusion is seen ACT 112: Negative or not required by law. Electronically signed by: Alcon Roach M.D. 05/13/2025 4:[address] 05/13/25 15:45 Clinical History: Fall Technique: Axial computed tomography images were obtained of the brain from the vertex to the skull base without intravenous contrast. Comparison is made to the prior CT dated 04/07/2022 Findings: There is no definite sign of intracranial hemorrhage. There is normal house-white matter differentiation with no sign of acute or old infarction. No midline shift or other form of herniation is identified. There is no hydrocephalus. There is unchanged mild calcification along the falx cerebri and tentorium. There is unchanged calcification in the left middle cerebral artery No obvious mass lesion is seen on this noncontrast examination. The visualized portions of the orbits and paranasal sinuses appear unremarkable. The mastoid air cells appear clear Impression: No definite acute pathology Electronically signed by Jim Hough 05-13-2025 5:06 PM Abdomen/Pelvis CT 05/13/25 17:46 CT of the abdomen pelvis with IV contrast Technique: Postcontrast axial image abdomen pelvis. Coronal and sagittal reformatted images made available for review Comparison no prior exam dated 04/25/2025 Findings: Hepatic cirrhosis. Bilateral pleural effusions right greater than lef t3 cm pulmonary mass right lower lobe stable compared to prior exam. Hepatic cirrhosis. Interval development of splenic infarct. Mild intra-abdominal ascites unchanged from prior exam Normal-appearing appendix. No free air or intestinal obstruction. Remaining solid abdominal organs unremarkable appearance. Bone windows demonstrate no focal abnormality with multilevel degenerative changes of the lower thoracic and lumbar spine Impression New splenic infarct Hepatic cirrhosis with minimal amount of intra-abdominal ascites improved since prior exam. 3 cm pulmonary nodule right lower lobe. Findings are concerning for neoplasm but stable since prior exam. Dedicated chest CT recommended for further evaluation. Electronically signed by Valentin Page 05-13-2025 7:48 PM ECG Additional Comments: atrial fibrillation, rate 123, nonspecific T wave changes per my interpretation Supervising Physician Co-Signing Physician Notes Patient seen and examined at bedside. Patient has been having symptoms for 2 weeks, nausea, vomiting, some abdominal pain. Cannot keep pills or anything down. Has been having some chest pain as well, worse with exertion. States he cannot keep his meds down but does try to take them. On exam, RUQ tenderness to palpation, dry mucous membranes. Systolic hypotension with relatively maintained MAP. Elevated LA suggestive of sepsis, low bicarb concerning as well. Mild leukocytosis concerning for infection as well. Elevated LFTs suggestive of biliary duct pathology. Complex case. Presentation concerning for biliary duct pathology, consistent with RUQ nausea and vomiting. Imaging ordered and pending. GI consult, appreciate recs, likely will benefit from ERCP pending imaging results. Start fluids and zosyn. D5NS for maintenance fluids. Check lipase. Load with digoxin for atrial fibrillation with RVR given tenuous pressures, start metoprolol 25mg PO q8hrs and hold for hypotension. Cardiology consult in AM, appreciate recs. Check digoxin and depakote levels. Biofire pending. Check echo, A1c, lipids for chest pain along with telemetry monitoring. Check morning cortisol, TSH for metabolic workup of hypotension. Hold home BP meds, atorvastatin (given acute liver failure), hold eliquis given possible procedure, hold home DM meds. -with imaging results back, biliary duct pathology still possible but less likely. Concern for hepatitis. Check hepatitis A/B/C, CMV, EBV, RUQ US, HIV for further definition of liver. Denies alcohol use. Autoimmune cause, metastatic disease possible as well (given lung nodule), will check LDH, serum tumor markers and autoimmune panel. -splenic infarct noted, could be related to malignancy, afib, endocarditis, pancreatitis, autoimmune disease. See above for workup, start heparin for now. -admit to ICU given tenuous pressures, concern for worsening shock given lactic acid elevation despite fluids and hypotension despite fluids I have seen and discussed the case with the collaborating advanced practitioner. I agree with the above H&P. I have reviewed and confirmed the patients medical history, the findings on physical examination, and the patients diagnosis and treatment plan with Varsha Garcia PA-C and agree with the information documented. I spent a total of 50 minutes coordinating, documenting, and providing care for this patient excluding time spent in the performance of separately billed services. All of the aforementioned completed outside of collaborating with the assigned advanced practitioner for a full treatment plan. I have reviewed the advanced practitioner's documentation, and I agree with, and take responsibility for the plan of care
[2025-05-13] MEDS: OPTIRAY 320 100ml IV ONE (19:05)
[2025-05-13] MEDS: DIGOXIN 125 MCG in SYRINGE 9.5 ML IV STA (19:18)
[2025-05-13] MEDS: PIPERACILLIN/TAZOBACTAM 4.5 GM/100 ML BAG IV ONE (19:19)
[2025-05-13 19:27] LABS: Lipase 12.0 U/L (11-82)
--- NOTE | 2025-05-13 19:49 | CT Scan Report ---
CT of the abdomen pelvis with IV contrast Technique: Postcontrast axial image abdomen pelvis. Coronal and sagittal reformatted images made available for review Comparison no prior exam dated 04/25/2025 Findings: Hepatic cirrhosis. Bilateral pleural effusions right greater than lef t3 cm pulmonary mass right lower lobe stable compared to prior exam. Hepatic cirrhosis. Interval development of splenic infarct. Mild intra-abdominal ascites unchanged from prior exam Normal-appearing appendix. No free air or intestinal obstruction. Remaining solid abdominal organs unremarkable appearance. Bone windows demonstrate no focal abnormality with multilevel degenerative changes of the lower thoracic and lumbar spine Impression New splenic infarct Hepatic cirrhosis with minimal amount of intra-abdominal ascites improved since prior exam. 3 cm pulmonary nodule right lower lobe. Findings are concerning for neoplasm but stable since prior exam. Dedicated chest CT recommended for further evaluation. Electronically signed by Valentin Page 05-13-2025 7:48 PM
[2025-05-13 20:02] LABS: Chlamydia pneumoniae PCR Not Detected (NotDetected); Coronavirus 229E PCR Not Detected (NotDetected); Coronavirus CoV-2 (COVID19)PCR Not Detected (NotDetected); Coronavirus HKU1 PCR Not Detected (NotDetected); Coronavirus NL63 PCR Not Detected (NotDetected); Coronavirus OC43PCR Not Detected (NotDetected); Human Metapneumovirus PCR Not Detected (NotDetected); Parainfluenza Virus 1 PCR Not Detected (NotDetected); Parainfluenza Virus 2 PCR Not Detected (NotDetected); Parainfluenza Virus 3 PCR Not Detected (NotDetected); Parainfluenza Virus 4 PCR Not Detected (NotDetected); Respiratory Syncytial VirusPCR Not Detected (NotDetected); Rhinovirus/Enterovirus PCR Not Detected (NotDetected)
[2025-05-13] MEDS: D5W AND NSS 1,000 ML IV SCH (20:43)
[2025-05-13 21:45] LABS: Hep B Surface Ag with confirm Negative (Negative)
--- NOTE | 2025-05-13 21:47 | Electrocardiogram Report ---
Test Reason : Blood Pressure : */* mmHG Vent. Rate : 123 BPM Atrial Rate : * BPM P-R Int : * ms QRS Dur : 94 ms QT Int : 336 ms P-R-T Axes : * 134 88 degrees QTcB Int : 481 ms Atrial fibrillation with rapid ventricular response Right axis deviation Nonspecific T wave abnormality Abnormal ECG When compared with ECG of 25-Apr-2025 13:21, No significant change was found Confirmed by Junior Valle ([id number]) on 05/13/2025 9:46:37 PM Referred By: Confirmed By: Junior Valle
[2025-05-13 21:51] LABS: Digoxin < 0.3 ng/ml (0.8-2.0)
[2025-05-13 22:01] LABS: Hep C Ab Rflx HepCQuant RNA Prelim Positive (Negative)
--- NOTE | 2025-05-13 23:34 | Critical Care Consultation ---
Date of Consultation May 13, 2025 Assessment & Plan (1) Hypotension: (2) Splenic infarct: (3) Elevated brain natriuretic peptide (BNP) level: (4) Hyperbilirubinemia: (5) Transaminitis: (6) Elevated lactic acid level: (7) Nausea & vomiting: (8) Atrial fibrillation with rapid ventricular response: (9) (HFpEF) heart failure with preserved ejection fraction: (10) Chronic steroid use: (11) Lung mass: (12) Pulmonary thromboembolism: (13) Pleural effusion, bilateral: (14) Hepatitis C: (15) Rheumatoid arthritis: (16) COPD (chronic obstructive pulmonary disease): Plan Neuro/Psych Mood disorder; depressive disorder; Lightheadedness with fall and head strike; no LOC; Cardio Troponin 39-43 (minimally elevated); Reduced TAPSE on previous Echo could have been secondary to unrecognized pulmonary thromboembolic disease noted on chest CTA 25 December 2024 (along with IV contrast throughout the hepatic veins suggestive of pulmonary hypertension); again, difficult to believe that those would have regressed spontaneously with an unremarkable Echo next day.; Bilateral lower-lobe pulmonary-artery filling- defects noted again on CTA from 04/25/2025; suspected by radiologist to be artifactual, however, by personal review I think that they are genuine and c onsistent with previously noted filling-defects (with possible progression, especially in the RLL).; Pulmonary vascular congestion reported on CXR; Not impressive, and lung- slices on abdominal CT unremarkable; PAD; Most recent Echo from 12/26/2024 unremarkable except for concentric LVH; Improvement on most recent Echo possibly secondary to treatment, albeit difficult to believe (Biatrial enlargement on current CT abdomen); History of cardiac catheterization (04/20/2021 nonobstructive CAD); Elevated BNP; Known history of HFpEF; Echo from September 2023 quite abnormal (Biatrial enlargement, reduced TAPSE suggestive of RV dysfunction); Atrial fibrillation with RVR; Resp Suspicion for pulmonary thromboembolic disease (See Cardio section); Consideration should be given for Right Heart Catheterization to assess Pulmonary Vascular Resistance for consideration of treatment accordingly; Patient has other potential contributors to Pulmonary Hypertension (RA); Mild bilateral airspace opacities likely interstitial edema (CXR); CT A/P: Bilateral pleural effusions R>L; Probably chronic, associated with HFpEF; however, cannot rule out malignant pleural effusion (MPE) on the right associated with lung mass; Consideration should be given for sampling based on results of work-up.; CT A/P: 3 cm RLL pulmonary mass (around 3.6 cm by my measurement) reported as being "stable", at least compared to recent studies; however definite progression from around 2 cm in July 2021; Concern for possible malignancy, possibly driving hypercoagulable state (suspected Pulmonary Emboli, splenic infarct); COPD with previous tobacco use disorder; Continue bronchodilators; Cervical CT: 6 mm right apical pulmonary nodule; GI/Nutr Nausea and vomiting contributing to inability to retain food and fluids as well as not being able to take maintenance medications; Cannot rule out contribution from Marijuana use, in addition to hepatitis picture; LFTs with hepatocellular injury pattern (Elevated AST and ALT, normal AlkP, mild direct and indirect hyperbilirubinemia); I doubt that we are dealing with congestive hepatopathy (patient doesnt seem to have significant elevation in systemic venous pressure); History of Hepatitis C (unclear treatment status), but this can definitely be contributing to presenting picture.; CT A/P: Hepatic cirrhosis; mild ascites; /Lytes Metabolic acidosis (no significant anion-gap). Ketosis and mild lactic- acidosis (unclear reason for lack of anion-gap widening: albumin and globulins normal); Hyponatremia; Most likely secondary to poor intake recently, previous diuretics; Endocrine Chronic steroid use; Will give Stress-dose Hydrocortisone; Heme/Onc Mild Leukocytosis; Unlikely of significance; Elevated INR; Most likely associated with liver-injury pattern; CT A/P: New splenic infarct; Infectious Lactate 2.4 ? 2.5 mmol/L (elevated); Probably impaired hepatic metabolism; Hypotension more likely secondary to Beta-Blockers and intravascular-volume depletion; Doubt sepsis; MS/Rheum Status post right knee replacement; Rheumatoid arthritis; Amputation of right and left great toes; prior cellulitis L foot; osteomyelitis L great toe; Housekeeping A- Feed/Fluids: Clear liquids; IV fluids (bolus + D5NS maintenance); B- Analgesia: None needed at this time; C- Sedation: None needed at this time; D- DVT proph: Heparin infusion started; E- Head-up: Not applicable; F- Ulcer Proph: Protonix; G- Glucose Control: SSI; H- Spontaneous Breathing Trial: Not applicable; I- Bowel Care: None needed at this time; J- Indwelling Catheter: Peripheral lines; K- Antibiotics/De-escalation: Started broad-spectrum (Zosyn); de-escalate per cultures; Blood cultures pending; prior ceftriaxone dose; L- Code-Status: Full Code; M- Disposition: Admit ICU; Due to persistent hypotension, need for vasopressors; I have personally spent 65 minutes of critical care time in the direct manageme nt of this patient. This is a life/limb threatening event. This includes time spent evaluating the patient, direct bedside care, chart review, placing orders, interpreting diagnostic studies, communicating with consultants, attending providers, patient, and family members, as well as required patient management activities. This time is exclusive of all separately-billable procedures and teaching time, and separate from and in addition to any other critical care service time. History of Present Illness Reason for Consultation: Hypotension requiring vasopressors Requesting Physician: Dr. Noble Attending Physician: Larry Noble MD History of Present Illness The patient is a very pleasant 60-year-old man who presented to the ED with two weeks of progressive nausea, vomiting, generalized weakness, diffuse body aches, and lightheadedness that worsened with standing, culminating in a fall from standing with a head strike but without loss of consciousness. He also reported a sore throat and nonproductive cough that began two days prior, and had been unable to tolerate his home medications since the onset of symptoms. He described intermittent brief chest pain at rest over the preceding days and mid- abdominal pain after vomiting. He denied fever, chills, hematemesis, melena, hematochezia, diarrhea, constipation, shortness of breath, palpitations, headach e, rhinorrhea, otalgia, extremity edema, rashes, or urinary symptoms. His girlfriend noted cognitive decline over the past month and reported daily marijuana use (last use three days prior) and prior methamphetamine use, but no recent use. He denied alcohol or illicit drug use. On arrival to the ED, he appeared ill and obese, with dry mucous membranes and scleral icterus. He was tachycardic with an irregularly irregular rhythm (AF with RVR, HR [id number]), hypotensive (systolic BPs in the 80s90s, MAP ?70), and afebrile, with oxygen saturation of 96% on room air. Examination revealed clear lungs, RUQ/epigastric and LUQ abdominal tenderness without rebound or guarding, negative [place] sign, no peripheral edema, and no focal neurological deficits. Laboratory evaluation revealed leukocytosis (WBC 11.3 K/L) with neutrophil predominance, hyponatremia (Na 130), low CO? (18), elevated lactate (2.42.5 mmol/L), transaminitis (AST 520, ALT 576), direct hyperbilirubinemia (TBili 2.4, DBili 1.0), minimally elevated high-sensitivity troponin (3943 ng/L), and elevated BNP (1517 pg/mL). Renal function was preserved. Urinalysis showed ketonuria, glucosuria, and bilirubinuria. Procalcitonin was not elevated. Respiratory viral PCRs were negative. Imaging included a chest X-ray that showed cardiomegaly, pulmonary vascular congestion, and mild bilateral interstitial edema. CT head was negative for acute intracranial pathology. CT C-spine showed no fracture but mild C56 stenosis and an indeterminate 6 mm right apical lung nodule. CT abdomen/pelvis with IV contrast demonstrated hepatic cirrhosis with mild ascites (improved from prior), a new splenic infarct, bilateral pleural effusions (right > left), and a stable 3 cm right lower lobe pulmonary mass concerning for neoplasm. No biliary ductal dilation was seen. ECG showed AF with a ventricular rate of ?123 bpm and nonspecific T-wave changes. In the ED, he received IV fluids (1 L NS, then D5NS for maintenance), empiric antibiotics (ceftriaxone, then piperacillin-tazobactam), and IV metoprolol for rate control (with limited effect due to hypotension). IV digoxin was subsequently administered. He was started on IV heparin for anticoagulation in the setting of AF and a new splenic infarct, with apixaban held for possible procedures. He was made NPO. Additional workup included RUQ ultrasound, hepatitis panel, EBV/CMV/HIV, autoimmune panel, LDH, tumor markers, TSH, AM cortisol, digoxin and valproate levels, repeat lactate/troponins, and transthoracic echocardiogram. Cardiology and GI consultations were requested. He was admitted to the ICU for management of persistent hypotension, SIRS/possible sepsis versus acute hepatitis/biliary pathology, AF with RVR, and concern for worsening shock. Home medications held due to hypotension and LFT elevation included Entresto, spironolactone, empagliflozin, atorvastatin, and apixaban. Chronic RA immunosuppressants (leflunomide, sulfasalazine) and prednisone were noted, but he had not been able to take oral medications. Past medical history included HFpEF/HFimpEF (EF 5560% on prior echo), persistent AF on anticoagulation, nonobstructive CAD, PAD with prior bilateral great toe amputations, COPD, prior PE, HTN, HLD, GERD, hepatitis C, mood disorder on divalproex, osteoarthritis s/p right TKA, history of osteomyelitis and cellulitis, erectile dysfunction, tobacco use disorder (former smoker), RA on chronic steroids and DMARDs (prednisone, leflunomide, prior sulfasalazine), Raynauds, and a history of medical nonadherence. Allergies Allergy/AdvReac Type Severity Reaction Status Date / Time No Known Allergies Allergy Verified 12/29/24 08:57 Home Medications Medication Instructions Recorded Confirmed Type nitroglycerin 0.4 mg sublingual 0.4 mg sublingual UD PRN Chest Pain 08/27/21 05/13/25 History tablet cholecalciferol (vitamin D3) 10 10 mcg PO QAM #30 caps 12/04/23 05/13/25 Rx mcg (400 unit) capsule (Vitamin D3) digoxin 125 mcg (0.125 mg) tablet 0.125 mcg (0.001 x 125 mcg (0.125 12/04/23 05/13/25 Rx mg)) PO QAM #30 tabs duloxetine 30 mg capsule,delayed 30 mg PO QAM #30 caps 12/04/23 05/13/25 Rx release omeprazole 40 mg capsule,delayed 40 mg PO DAILYBB #30 caps 12/04/23 05/13/25 Rx release spironolactone 25 mg tablet 12.5 mg (1/2 x 25 mg) PO QAM #15 12/04/23 05/13/25 Rx tabs sulfasalazine 500 mg tablet 1,000 mg (2 x 500 mg) PO BID #120 12/04/23 05/13/25 Rx tabs aspirin 81 mg tablet 81 mg PO QAM 12/25/24 05/13/25 History atorvastatin 10 mg tablet 10 mg PO DAILY 12/25/24 05/13/25 History divalproex 250 mg tablet,extended 250 mg PO QAM 12/25/24 05/13/25 History release 24 hr empagliflozin 25 mg tablet 25 mg PO QAM 12/25/24 05/13/25 History (Jardiance) fluticasone fur. 100 mcg-umeclid 1 ea inhalation QAM 12/25/24 05/13/25 History 62.5 mcg-vilant 25 mcg inhalat.powder (Trelegy Ellipta) leflunomide 10 mg tablet 10 mg PO QAM 12/25/24 05/13/25 History magnesium oxide 400 mg (241.3 mg 400 mg PO QAM 12/25/24 05/13/25 History magnesium) tablet prednisone 5 mg tablet 10 mg PO DAILY RHEUMATOID ARTHRITIS 12/25/24 05/13/25 History sacubitril 24 mg-valsartan 26 mg 1 tab PO AMHS 12/25/24 05/13/25 History tablet (Entresto) oxycodone-acetaminophen 10 mg-325 1 tab PO BID PRN Pain,severe #15 12/30/24 05/13/25 Rx mg tablet tabs apixaban 5 mg tablet (Eliquis) 5 mg PO AMHS 05/13/25 05/13/25 History metoprolol succinate 50 mg 50 mg PO Q12 05/13/25 05/13/25 History tablet,extended release 24 hr Patient History Medical History Chronic heart failure with preserved ejection fraction (HFpEF) Heart failure with improved ejection fraction (HFimpEF) Medical non-compliance COPD (chronic obstructive pulmonary disease) History of osteomyelitis ASCVD (arteriosclerotic cardiovascular disease) Chronic atrial fibrillation Dyslipidemia, goal LDL below 70 Erectile dysfunction Tobacco use disorder Surgical History History of cardiac cath History of colonoscopy Hx of tonsillectomy Family History Other Heart disease Hypertension Social History Smoking Status: Former smoker Tobacco Type: Cigarettes and Smokeless Tobacco (Dip or Chew) Cigarettes Per Day: 5; Smoking End Date: 04/29/25; Second Hand Exposure: No; Do You Dip or Chew Tobacco: No; Hx Alcohol Use: No Hx Substance Use: No Preferred Language: Divehi Communication Ability: Effective Blending Kettle Tender Required: No Beliefs That Will Affect Care: None Current Living Situation: Significant Other Current Living Situation Comment: Lives at home with girlfriend Hayley, & their child Danica Feels Safe at Home: Yes Safety Concerns: Feels Safe At This Time Assistive Devices: Cane, Glasses and Oxygen - at Night Review of Systems Review of Systems: All systems reviewed & are unremarkable except as noted in HPI & below Physical Exam Physical Exam: General: In no acute distress, breathing room-air. Skin: Warm and dry to touch. Noobvious lesions. Eyes: Icteric sclerae.Noconjunctival hyperemia or exudates.No periorbital edema. ENT: No oral thrush. No oropharyngeal erythema or exudates. Modified-Mallampati 3 (Hard and soft palate seen). Neck: No palpable masses or adenopathy. Respiratory: Diffusely decreased breath sounds, no wheezing or crackles. No use of accessory muscles and no prolonged exhalation. Cardiac: Distant sounds, regular rhythm, no murmurs, no gallops, no rubs; could not appreciate JV pulse elevation. GI: Soft, nontender. Extremities No clubbing,no cyanosis,no edema. Great-toe amputations bilaterally. Neuro: No gross motor deficits. Seems appropriate. No facial-droop. Speech is clear. Results & Data Results & Data Vital Signs (Past 12 Hours) Vital Signs Temp Pulse Pulse Resp BP BP Pulse Ox 05/13/25 21:51 105 H 05/13/25 21:45 36.7 C 115 H 16 107/78 95 05/13/25 20:30 119 H 18 90/64 L 05/13/25 20:15 116 H 22 86/63 L 05/13/25 20:06 118 H 23 84/65 L 05/13/25 20:00 111 H 23 81/69 L 05/13/25 19:45 101 H 18 83/66 L 05/13/25 19:30 107 H 20 97/76 L 05/13/25 19:30 107 H 05/13/25 19:18 121 H 05/13/25 19:15 124 H 19 95/77 L 05/13/25 19:00 123 H 22 98/77 L 05/13/25 18:45 114/83 05/13/25 18:45 114/83 05/13/25 18:45 114/83 05/13/25 18:45 114/83 05/13/25 18:45 114/83 05/13/25 18:45 134 H 20 05/13/25 18:30 93/78 L 05/13/25 18:30 93/78 L 05/13/25 18:30 93/78 L 05/13/25 18:30 93/78 L 05/13/25 18:30 93/78 L 05/13/25 18:30 126 H 20 05/13/25 18:19 118 H 99/71 L 05/13/25 18:18 123 H 21 05/13/25 18:17 99/71 L 05/13/25 18:17 99/71 L 05/13/25 18:17 99/71 L 05/13/25 18:17 99/71 L 05/13/25 18:17 99/71 L 05/13/25 18:17 99/71 L 05/13/25 18:15 122 H 21 05/13/25 18:01 85/73 L 05/13/25 18:01 85/73 L 05/13/25 18:01 85/73 L 05/13/25 18:01 85/73 L 05/13/25 18:01 85/73 L 05/13/25 18:00 115 H 19 05/13/25 18:00 118 H 16 99/71 L 05/13/25 17:47 128 H 109/81 05/13/25 17:45 128 H 22 05/13/25 17:45 109/81 05/13/25 17:45 109/81 05/13/25 17:45 109/81 05/13/25 17:45 109/81 05/13/25 17:45 109/81 05/13/25 17:45 127 H 109/81 05/13/25 17:30 140 H 23 05/13/25 17:21 120 H 22 93 05/13/25 17:21 125/79 05/13/25 17:21 125/79 05/13/25 17:21 125/79 05/13/25 17:21 125/79 05/13/25 17:21 125/79 05/13/25 17:21 133 H 125/79 05/13/25 17:16 111/90 05/13/25 17:16 111/90 05/13/25 17:16 111/90 05/13/25 17:16 111/90 05/13/25 17:16 111/90 05/13/25 17:15 120 H 21 05/13/25 17:00 145 H 22 05/13/25 17:00 116/87 05/13/25 17:00 116/87 05/13/25 17:00 116/87 05/13/25 17:00 116/87 05/13/25 17:00 116/87 05/13/25 17:00 145 H 16 114/87 96 05/13/25 16:54 137 H 24 05/13/25 16:54 111/88 05/13/25 16:54 111/88 05/13/25 16:54 111/88 05/13/25 16:54 111/88 05/13/25 16:54 111/88 05/13/25 16:45 113 H 21 05/13/25 16:43 136 H 22 111/88 96 05/13/25 16:30 131 H 23 05/13/25 16:00 114 H 19 93 05/13/25 16:00 106/84 05/13/25 16:00 106/84 05/13/25 16:00 106/84 05/13/25 16:00 106/84 05/13/25 16:00 106/84 05/13/25 16:00 136 H 16 106/84 96 05/13/25 15:48 120 H 21 114/81 96 05/13/25 15:46 120 H 16 96 05/13/25 15:45 121 H 21 91 05/13/25 15:44 36.9 C 120 H 21 114/81 96 05/13/25 15:39 116 H 20 94 05/13/25 15:35 36.9 C 120 H 21 114/81 96 05/13/25 15:34 36.9 C 120 H 21 114/81 96 05/13/25 15:33 113 H O2 Del Method 05/13/25 21:51 05/13/25 21:45 Room Air 05/13/25 20:30 05/13/25 20:15 05/13/25 20:06 05/13/25 20:00 05/13/25 19:45 05/13/25 19:30 05/13/25 19:30 05/13/25 19:18 05/13/25 19:15 05/13/25 19:00 05/13/25 18:45 05/13/25 18:45 05/13/25 18:45 05/13/25 18:45 05/13/25 18:45 05/13/25 18:45 05/13/25 18:30 05/13/25 18:30 05/13/25 18:30 05/13/25 18:30 05/13/25 18:30 05/13/25 18:30 05/13/25 18:19 05/13/25 18:18 05/13/25 18:17 05/13/25 18:17 05/13/25 18:17 05/13/25 18:17 05/13/25 18:17 05/13/25 18:17 05/13/25 18:15 05/13/25 18:01 05/13/25 18:01 05/13/25 18:01 05/13/25 18:01 05/13/25 18:01 05/13/25 18:00 05/13/25 18:00 05/13/25 17:47 05/13/25 17:45 05/13/25 17:45 05/13/25 17:45 05/13/25 17:45 05/13/25 17:45 05/13/25 17:45 05/13/25 17:45 05/13/25 17:30 05/13/25 17:21 05/13/25 17:21 05/13/25 17:21 05/13/25 17:21 05/13/25 17:21 05/13/25 17:21 05/13/25 17:21 05/13/25 17:16 05/13/25 17:16 05/13/25 17:16 05/13/25 17:16 05/13/25 17:16 05/13/25 17:15 05/13/25 17:00 05/13/25 17:00 05/13/25 17:00 05/13/25 17:00 05/13/25 17:00 05/13/25 17:00 05/13/25 17:00 Room Air 05/13/25 16:54 05/13/25 16:54 05/13/25 16:54 05/13/25 16:54 05/13/25 16:54 05/13/25 16:54 05/13/25 16:45 05/13/25 16:43 Room Air 05/13/25 16:30 05/13/25 16:00 05/13/25 16:00 05/13/25 16:00 05/13/25 16:00 05/13/25 16:00 05/13/25 16:00 05/13/25 16:00 05/13/25 15:48 Room Air 05/13/25 15:46 Room Air 05/13/25 15:45 05/13/25 15:44 Room Air 05/13/25 15:39 05/13/25 15:35 Room Air 05/13/25 15:34 Room Air 05/13/25 15:33 Laboratory Results 05/13/25 16:33 Aerobic Blood Culture - Pending Blood Anaerobic Blood Culture - Pending 05/13/25 16:49 Aerobic Blood Culture - Pending Blood Anaerobic Blood Culture - Pending 05/13/25 05/13/25 05/13/25 Unknown 18:48 16:58 WBC RBC Hgb Hct MCV MCH MCHC RDW Std Deviation RDW Coeff of Alex Plt Count MPV Immature Gran % (Auto) Neut % (Auto) Lymph % (Auto) Rankin % (Auto) Eos % (Auto) Baso % (Auto) Neut # (Auto) Lymph # (Auto) Rankin # (Auto) Eos # (Auto) Baso # (Auto) Immature Gran # (Auto) Absolute Nucleated RBC Nucleated RBC % (auto) Toxic Vacuolation Polychromasia Anisocytosis Ovalocytes Sodium Potassium Chloride Carbon Dioxide Anion Gap BUN Creatinine Est Cr Clr Drug Dosing eGFR BUN/Creatinine Ratio Glucose Lactate 2.5 H* Calcium Magnesium Total Bilirubin Direct Bilirubin AST ALT Alkaline Phosphatase Lactate Dehydrogenase 363 H Total Creatine Kinase Troponin I High Sens 43.5 H B-Natriuretic Peptide Total Protein Albumin Lipase 12 Procalcitonin Urine Color Urine Appearance Urine pH Ur Specific [place] Urine Protein Urine Glucose (UA) Urine Ketones Urine Blood Urine Nitrite Urine Bilirubin Urine Urobilinogen Ur Leukocyte Esterase Urine WBC (Auto) Urine RBC (Auto) U Hyaline Cast (Auto) U Epithel Cells (Auto) Urine Bacteria (Auto) Urine Comment Nasal Screen MRSA (PCR) Positive A Digoxin < 0.3 L Valproic Acid < 10 L Adenovirus (PCR) B. pertussis DNA (PCR) B.parapertussis DNA PCR C. pneumoniae DNA (PCR) Coronavirus OC43 (PCR) Coronavirus HKU1 (PCR) Coronavirus 229E (PCR) SARS-CoV-2 (PCR) Coronavirus NL63 (PCR) Hep Bs Antigen Hepatitis C Antibody Human Metapneumovir PCR Influenza Type A (PCR) Influenza Type B (PCR) Not Detected M. pneumoniae (PCR) Not Detected Parainfluenza 1 (PCR) Not Detected Parainfluenza 2 (PCR) Not Detected Parainfluenza 3 (PCR) Not Detected Parainfluenza 4 (PCR) Not Detected RSV (RT-PCR) Negative RSV (PCR) Not Detected Entero/Rhino (PCR) Not Detected 05/13/25 05/13/25 05/13/25 16:58 16:58 16:58 WBC RBC Hgb Hct MCV MCH MCHC RDW Std Deviation RDW Coeff of Alex Plt Count MPV Immature Gran % (Auto) Neut % (Auto) Lymph % (Auto) Rankin % (Auto) Eos % (Auto) Baso % (Auto) Neut # (Auto) Lymph # (Auto) Rankin # (Auto) Eos # (Auto) Baso # (Auto) Immature Gran # (Auto) Absolute Nucleated RBC Nucleated RBC % (auto) Toxic Vacuolation Polychromasia Anisocytosis Ovalocytes Sodium Potassium Chloride Carbon Dioxide Anion Gap BUN Creatinine Est Cr Clr Drug Dosing eGFR BUN/Creatinine Ratio Glucose Lactate Calcium Magnesium Total Bilirubin Direct Bilirubin AST ALT Alkaline Phosphatase Lactate Dehydrogenase Total Creatine Kinase Troponin I High Sens B-Natriuretic Peptide Total Protein Albumin Lipase Procalcitonin Urine Color Urine Appearance Urine pH Ur Specific [place] Urine Protein Urine Glucose (UA) Urine Ketones Urine Blood Urine Nitrite Urine Bilirubin Urine Urobilinogen Ur Leukocyte Esterase Urine WBC (Auto) Urine RBC (Auto) U Hyaline Cast (Auto) U Epithel Cells (Auto) Urine Bacteria (Auto) Urine Comment Nasal Screen MRSA (PCR) Digoxin Valproic Acid Adenovirus (PCR) Not Detected B. pertussis DNA (PCR) Not Detected B.parapertussis DNA PCR Not Detected C. pneumoniae DNA (PCR) Not Detected Coronavirus OC43 (PCR) Not Detected Coronavirus HKU1 (PCR) Not Detected Coronavirus 229E (PCR) Not Detected SARS-CoV-2 (PCR) Not Detected NEGATIVE Coronavirus NL63 (PCR) Not Detected Hep Bs Antigen Hepatitis C Antibody Human Metapneumovir PCR Not Detected Influenza Type A (PCR) Not Detected Negative Influenza Type B (PCR) Negative M. pneumoniae (PCR) Parainfluenza 1 (PCR) Parainfluenza 2 (PCR) Parainfluenza 3 (PCR) Parainfluenza 4 (PCR) RSV (RT-PCR) RSV (PCR) Entero/Rhino (PCR) 05/13/25 05/13/25 16:47 16:30 WBC 11.29 H RBC 5.47 Hgb 13.0 L Hct 39.8 L MCV 72.8 L MCH 23.8 L MCHC 32.7 RDW Std Deviation 48.3 H RDW Coeff of Alex 20.1 H Plt Count 290 MPV 11.2 Immature Gran % (Auto) 0.3 Neut % (Auto) 81.6 Lymph % (Auto) 10.4 Rankin % (Auto) 7.1 Eos % (Auto) 0.2 Baso % (Auto) 0.4 Neut # (Auto) 9.22 H Lymph # (Auto) 1.17 L Rankin # (Auto) 0.80 H Eos # (Auto) 0.02 Baso # (Auto) 0.05 Immature Gran # (Auto) 0.03 Absolute Nucleated RBC 0.02 Nucleated RBC % (auto) 0.2 Toxic Vacuolation 1+ Polychromasia 1+ Anisocytosis Present Ovalocytes 1+ Sodium 130 L Potassium 4.4 Chloride 101 Carbon Dioxide 18 L Anion Gap 11 BUN 20 Creatinine 0.88 Est Cr Clr Drug Dosing 102.8 eGFR 97.83 BUN/Creatinine Ratio 22.7 H Glucose 103 H Lactate 2.4 H* Calcium 9.1 Magnesium 1.8 Total Bilirubin 2.4 H Direct Bilirubin 1.0 H AST 520 H ALT 576 H Alkaline Phosphatase 94 Lactate Dehydrogenase Total Creatine Kinase 27 L Troponin I High Sens 39.2 H B-Natriuretic Peptide 1517 H Total Protein 6.5 Albumin 3.7 Lipase Procalcitonin 0.32 Urine Color Dark Yellow Urine Appearance Clear Urine pH 5.0 Ur Specific [place] 1.025 Urine Protein 1+ H Urine Glucose (UA) 3+ H Urine Ketones 2+ H Urine Blood Negative Urine Nitrite Negative Urine Bilirubin 1+ H Urine Urobilinogen Negative Ur Leukocyte Esterase Negative Urine WBC (Auto) 0-5 Urine RBC (Auto) 0-2 U Hyaline Cast (Auto) 0-2 U Epithel Cells (Auto) 0-2 Urine Bacteria (Auto) None Seen Urine Comment Nasal Screen MRSA (PCR) Digoxin Valproic Acid Adenovirus (PCR) B. pertussis DNA (PCR) B.parapertussis DNA PCR C. pneumoniae DNA (PCR) Coronavirus OC43 (PCR) Coronavirus HKU1 (PCR) Coronavirus 229E (PCR) SARS-CoV-2 (PCR) Coronavirus NL63 (PCR) Hep Bs Antigen Negative Hepatitis C Antibody Prelim Positive A Human Metapneumovir PCR Influenza Type A (PCR) Influenza Type B (PCR) M. pneumoniae (PCR) Parainfluenza 1 (PCR) Parainfluenza 2 (PCR) Parainfluenza 3 (PCR) Parainfluenza 4 (PCR) RSV (RT-PCR) RSV (PCR) Entero/Rhino (PCR) Diagnostic Findings Cervical Spine CT 05/13/25 15:45 Technique: Axial computed tomography images were obtained of the cervical spine without intravenous contrast. Sagittal and coronal reconstructions were obtained Findings: No fracture is identified. No listhesis is seen. No focal osseous lesion is evident. The atlantoaxial articulation appears unremarkable. At C2-3, no disc herniation is identified. There is no spinal stenosis. The neural foramen are patent At C3-4, no disc herniation is identified. There is no spinal stenosis. The neural foramen are patent At C4-5, there is a mild disc bulge. There is no spinal stenosis. The neural foramen are patent At C5-6, there is mild spinal stenosis due to a disc bulge. There is mild left neural foramen narrowing At C6-7, there is a disc bulge without clear spinal cord deformity. The neural foramen are patent At C7-T1,no disc herniation is identified. There is no spinal stenosis. The neural foramen are patent There is a 6 mm right apical nodule. The visualized soft tissues of the neck appear unremarkable. No foreign body is seen Impression: 1. No definite cervical spine fracture 2. Mild spinal stenosis at C5-6 3. Indeterminate nodule in the right lung apex. A follow-up chest CT could be obtained Electronically signed by Jim Hough 05-13-2025 5:10 PM Chest X-Ray 05/13/25 15:45 SINGLE VIEW CHEST CLINICAL HISTORY: Sepsis FINDINGS: 2 AP, portable, upright chest radiographs are compared to chest x-ray and chest CT dated 04/25/2025. The heart is enlarged noting atherosclerotic calcification of the thoracic aorta. There is pulmonary vascular congestion. Bilateral airspace opacities likely representing mild interstitial edema. No large pleural effusion or pneumothorax is seen. The skeletal structures are osteopenic. The bony thorax is grossly intact. 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 IMPRESSION: 1. Cardiomegaly with evidence of congestive failure. 2. Mild bilateral airspace opacities likely representing mild pulmonary edema. Correlate clinically. Radiographic follow-up to resolution is recommended. 3. No large pleural effusion is seen ACT 112: Negative or not required by law. Electronically signed by: Alcon Roach M.D. 05/13/2025 4:[address] 05/13/25 15:45 Clinical History: Fall Technique: Axial computed tomography images were obtained of the brain from the vertex to the skull base without intravenous contrast. Comparison is made to the prior CT dated 04/07/2022 Findings: There is no definite sign of intracranial hemorrhage. There is normal house-white matter differentiation with no sign of acute or old infarction. No midline shift or other form of herniation is identified. There is no hydrocephalus. There is unchanged mild calcification along the falx cerebri and tentorium. There is unchanged calcification in the left middle cerebral artery No obvious mass lesion is seen on this noncontrast examination. The visualized portions of the orbits and paranasal sinuses appear unremarkable. The mastoid air cells appear clear Impression: No definite acute pathology Electronically signed by Jim Hough 05-13-2025 5:06 PM Abdomen/Pelvis CT 05/13/25 17:46 CT of the abdomen pelvis with IV contrast Technique: Postcontrast axial image abdomen pelvis. Coronal and sagittal reformatted images made available for review Comparison no prior exam dated 04/25/2025 Findings: Hepatic cirrhosis. Bilateral pleural effusions right greater than lef t3 cm pulmonary mass right lower lobe stable compared to prior exam. Hepatic cirrhosis. Interval development of splenic infarct. Mild intra-abdominal ascites unchanged from prior exam Normal-appearing appendix. No free air or intestinal obstruction. Remaining solid abdominal organs unremarkable appearance. Bone windows demonstrate no focal abnormality with multilevel degenerative changes of the lower thoracic and lumbar spine Impression New splenic infarct Hepatic cirrhosis with minimal amount of intra-abdominal ascites improved since prior exam. 3 cm pulmonary nodule right lower lobe. Findings are concerning for neoplasm but stable since prior exam. Dedicated chest CT recommended for further evaluation. Electronically signed by Valentin Page 05-13-2025 7:48 PM Medications Administered Home Medications Medication Instructions Recorded Confirmed Last Taken nitroglycerin 0.4 mg sublingual 0.4 mg sublingual UD PRN Chest Pain 08/27/21 05/13/25 Unknown tablet cholecalciferol (vitamin D3) 10 10 mcg PO QAM #30 caps 12/04/23 05/13/25 Unknown mcg (400 unit) capsule (Vitamin D3) digoxin 125 mcg (0.125 mg) tablet 0.125 mcg (0.001 x 125 mcg (0.125 12/04/23 05/13/25 Unknown mg)) PO QAM #30 tabs duloxetine 30 mg capsule,delayed 30 mg PO QAM #30 caps 12/04/23 05/13/25 Unknown release omeprazole 40 mg capsule,delayed 40 mg PO DAILYBB #30 caps 12/04/23 05/13/25 Unknown release spironolactone 25 mg tablet 12.5 mg (1/2 x 25 mg) PO QAM #15 12/04/23 05/13/25 Unknown tabs sulfasalazine 500 mg tablet 1,000 mg (2 x 500 mg) PO BID #120 12/04/23 05/13/25 Unknown tabs aspirin 81 mg tablet 81 mg PO QAM 12/25/24 05/13/25 Unknown atorvastatin 10 mg tablet 10 mg PO DAILY 12/25/24 05/13/25 Unknown divalproex 250 mg tablet,extended 250 mg PO QAM 12/25/24 05/13/25 Unknown release 24 hr empagliflozin 25 mg tablet 25 mg PO QAM 12/25/24 05/13/25 Unknown (Jardiance) fluticasone fur. 100 mcg-umeclid 1 ea inhalation QA 12/25/24 05/13/25 Unknown 62.5 mcg-vilant 25 mcg inhalat.powder (Trelegy Ellipta) leflunomide 10 mg tablet 10 mg PO QAM 12/25/24 05/13/25 Unknown magnesium oxide 400 mg (241.3 mg 400 mg PO QAM 12/25/24 05/13/25 Unknown magnesium) tablet prednisone 5 mg tablet 10 mg PO DAILY RHEUMATOID ARTHRITIS 12/25/24 05/13/25 Unknown sacubitril 24 mg-valsartan 26 mg 1 tab PO AMHS 12/25/24 05/13/25 Unknown tablet (Entresto) oxycodone-acetaminophen 10 mg-325 1 tab PO BID PRN Pain,severe #15 12/30/24 05/13/25 Unknown mg tablet tabs apixaban 5 mg tablet (Eliquis) 5 mg PO AMHS 05/13/25 05/13/25 Unknown metoprolol succinate 50 mg 50 mg PO Q12 05/13/25 05/13/25 Unknown tablet,extended release 24 hr Active Medications Generic Name Dose Route Start Last Admin Trade Name Freq PRN Reason Stop Dose Admin Dextrose/Sodium Chloride 1,000 mls @ 100 mls/hr 05/13/25 19:45 05/13/25 20:43 D5w And Nss IV 05/14/25 15:44 100 mls/hr .Q10H MAIRA Administration Coding Level of Care Code 64113 CRITICAL CARE 1ST 30-74M Diagnoses Hypotension I95.9 Splenic infarct D73.5 Elevated brain natriuretic peptide (BNP) level R79.89 Hyperbilirubinemia E80.6 Transaminitis R74.01 Elevated lactic acid level R79.89 Nausea & vomiting R11.2 Atrial fibrillation with rapid ventricular response I48.91 (HFpEF) heart failure with preserved ejection fraction I50.30 Chronic steroid use Lung mass R91.8 Pulmonary thromboembolism I26.99 Pleural effusion, bilateral J90 Hepatitis C B19.20 Rheumatoid arthritis M06.9 COPD (chronic obstructive pulmonary disease) J44.9 Time Spent (min) 65
[2025-05-13] MEDS: HEPARIN 25000 UNIT/500 ML D5W 25,000 UNITS/500 ML BAG IV SCH (23:46)
[2025-05-14 00:06] LABS: INR 1.6 (0.9-1.1); Partial Thromboplastin Time 33 Seconds (21-31); Prothrombin Time 16.7 Seconds (9.0-12.0)
[2025-05-14 00:13] LABS: ANTI-Xa, UFH(UnfractionatedHep 0.16 IU/ml (0.3-0.7)
[2025-05-14 00:51] LABS: EBV Nuclear Antigen IgG Ab Positive; EBV Nuclear Antigen IgG Quant > 600.0 U/mL (< 18.0)
[2025-05-14 00:52] LABS: EBV IgG Antibody Positive; EBV IgG Quant 256.0 U/mL (< 18.0); EBV IgM Antibody Negative; EBV IgM Quant < 10.0 U/mL (< 36.0)
[2025-05-14] MEDS: PIPERACILLIN/TAZOBACTAM 4.5 GM/100 ML BAG IV SCH (00:55)
[2025-05-14] MEDS: Heparin IV Adult Wt-Based Standard *NO* INITIAL Bolus Protocol IV SCH (01:00)
[2025-05-14 01:22] LABS: Amphetamines+Metham, Urine Neg (Neg); MDMA (Ecstacy), Urine Neg (Neg); Marijuana, Urine Pos (Neg)
[2025-05-14] MEDS: HYDROCORTISONE SOD 50 MG in SYRINGE 0 ML IV SCH (01:26)
[2025-05-14 05:02] LABS: Hemoglobin A1C 6.3 % (4.5-5.6)
[2025-05-14 05:04] LABS: Hematocrit (blood only) 36.3 % (42.0-52.0); Hemoglobin 11.5 g/dL (14.0-18.0); Immature Granulocytes # (auto) 0.05 K/uL (0.01-0.20); Immature Granulocytes % (auto) 0.6 %; Mean Corpuscular Hemoglobin 23.4 pg (25.0-34.0); Mean Corpuscular Volume 73.8 fL (80.0-100.0); Platelet Count 276 K/uL (130-400); RDW Standard Deviation 50.1 fL (36.4-46.3); Red Blood Count 4.92 M/uL (4.70-6.10); White Blood Count 9.04 K/ul (4.8-10.8)
[2025-05-14 05:21] LABS: Alanine Aminotransferase 430.0 U/L (7-52); Albumin Globulin Ratio 1.3 (0.9-2); Albumin Level 3.2 gm/dl (3.4-5.0); Alkaline Phosphatase 78.0 U/L (34-104); Anion Gap 9.0 (3-11); Bilirubin,Total 1.6 mg/dl (0.2-1.0); Blood Urea Nitrogen 16.0 mg/dl (6-23); Calcium 8.0 mg/dl (8.6-10.3); Carbon Dioxide 19.0 mmol/L (21-32); Chloride 102.0 mmol/L (98-107); Cholesterol 72.0 mg/dl (0-200); Creatinine Clr Calc Pharmacy 95.1 ml/min; Globulin 2.5 gm/dl (2.5-4.0); Glucose 145.0 mg/dl (70-99(Fasting)); HDL Cholesterol 28.0 mg/dl; Lipase 43.0 U/L (11-82); Potassium 3.9 mmol/L (3.5-5.1); Sodium 130.0 mmol/L (136-145); Total Protein 5.7 gm/dl (6.0-8.3); Triglycerides 62.0 mg/dl (0-150)
--- NOTE | 2025-05-14 05:33 | Ultrasound Report ---
EXAM: US gallbladder CLINICAL HISTORY: transaminitis; nausea and vomiting TECHNIQUE: Ultrasound examination of the RUQ was performed using a [low-frequency transducer]. Scanning was performed with the patient in the supine position. COMPARISON: None. FINDINGS: Pancreas: Limited visualization due to overlying bowel gas. The visualized portions appear unremarkable. Liver: The liver is enlarged, measuring approximately 20.3 cm in craniocaudal dimension. Parenchyma demonstrates increased echogenicity with coarse echotexture, compatible with diffuse hepatic parenchymal disease. A trace amount of ascites is noted anterior to the liver. No focal hepatic mass is identified on the visualized portions. Gallbladder: The gallbladder wall measures 1.8 mm, within normal limits. No gallstones or pericholecystic fluid identified. Sonographic Sheppard's sign is negative. Biliary Tree: The common bile duct measures 7.2 mm, which is mildly prominent. No definite intraductal calculus is visualized. Right Kidney: The right kidney is normal in size and echogenicity. The liver/right kidney interface appeared within normal limits. Trace fluid is seen in Sawant's pouch. No hydronephrosis is identified. Incidental Finding: A right pleural effusion is noted. IMPRESSION: 1. Hepatomegaly with coarse, echogenic hepatic parenchyma, suggestive of chronic liver disease and/or hepatic steatosis. Correlate with liver function tests and viral markers. 2. Trace abdominal ascites. 3. Mildly dilated common bile duct (7.2 mm); correlate with laboratory values. 4. Limited pancreatic evaluation due to overlying bowel gas. 5. Incidental right pleural effusion. 6. Unremarkable gallbladder with negative sonographic Sheppard's sign. RECOMMENDATIONS: Clinical correlation with symptoms and further evaluation as indicated. Electronically signed by Marshall Araujo 05-14-2025 05:32 AM
[2025-05-14 05:35] LABS: Thyroid Stimulating Hormone 2.44 uIu/ml (0.300-4.500)
[2025-05-14] MEDS: DIGOXIN 250 MCG in SYRINGE 9 ML IV STA (06:46)
[2025-05-14 06:56] LABS: ANTI-Xa, UFH(UnfractionatedHep 0.39 IU/ml (0.3-0.7)
[2025-05-14] MEDS ORDERED: VANCOMYCIN CONSULT ACTIVE PRN (07:36)
--- NOTE | 2025-05-14 07:56 | Critical Care Progress Note ---
Date of Service May 14, 2025 Assessment & Plan (1) Hypotension: (2) Splenic infarct: (3) Elevated brain natriuretic peptide (BNP) level: (4) Hyperbilirubinemia: (5) Transaminitis: (6) Elevated lactic acid level: (7) Nausea & vomiting: (8) Atrial fibrillation with rapid ventricular response: (9) (HFpEF) heart failure with preserved ejection fraction: (10) Chronic steroid use: (11) Lung mass: (12) Pulmonary thromboembolism: (13) Pleural effusion, bilateral: (14) Hepatitis C: (15) Rheumatoid arthritis: (16) COPD (chronic obstructive pulmonary disease): Plan Neuro/Psych Mood disorder; depressive disorder; Lightheadedness with fall and head strike; no LOC; Cardio 2D echo 12/26/2024: EF 55-60%, borderline concentric LVH, RV normal in size and function, mild MR 2D echo 05/14/2025: EF 25 to 25%, RVSP 40-50 mmHg, moderate to severe MR, moderate to severe TR --New onset CHF Could be secondary to noncompliance with medications Cardiology is on board Further invasive cardiac workup will be needed will defer to cardiology Nonobstructive cardiac disease in the past --A-fib Supposed to be on digoxin and Eliquis at home Resp CT chest 04/25/2025 personally reviewed: Centrilobular emphysema appreciated bilaterally Multiple pulm nodules appreciated bilaterally with right lower lobe 3 cm pulmonary mass peripheral Small right-sided pleural effusion Mediastinal lymphadenopathy especially subcarinal --COPD with emphysema and chronic bronchitis Not bronchospastic On Trelegy 100 --Multiple pulmonary nodules with pulmonary mass In a patient with significant smoking history and 25 pound weight loss unintentional Possibility of malignancy is high --Bilateral pleural effusions R>L Likely from new onset CHF Cannot rule out malignancy related especially given the pulmonary mass in the right lower side GI/Nutr -- Nausea vomiting with transaminitis Mild ascites Could be from CHF Does have marijuana use which could cause cyclic vomiting Trend LFTs, they are trending down RUQ ultrasound 05/14/2025: Hepatomegaly, mildly dilated common bile duct, unremarkable gallbladder with negative Sheppard sign -- History of hepatitis C S/p treatment 8 years ago /[facility] -- Metabolic acidosis Combination of ketoacidosis as well as lactic acidosis Improving -- Hyponatremia Hypervolemic Likely from systolic CHF Endocrine -- Chronic steroid use for rheumatoid arthritis ICU hypoglycemia protocol Heme/Onc -- Coagulopathy Could be secondary to liver issues rather than Eliquis given that he is not compliant with Eliquis Will consider vitamin K -- New onset splenic infarct Could be embolus Follow-up blood cultures Infectious -- Hypotension on presentation Responded to fluids No clear source of infection Continue with empiric antibiotics for 48 hours Follow-up blood culture MS/Rheum -- Rheumatoid arthritis On leflunomide, sulfasalazine and prednisone 10 mg on a daily basis -- Amputation of right and left great toes; prior cellulitis L foot; osteomyelitis L great toe; --Prophylaxis VTE: Heparin drip GI: Pantoprazole Lines: Peripheral Diet: Cardiac Plan: In/out: +2.8 L, urine output 450 mL Continue digoxin 150 mcg on a daily basis AST/ALT are trending down DC vancomycin given nasal MRSA negative Case discussed with IR to see if we are able to do thoracentesis on the right side especially given that the patient has pulmonary mass on the right side Hold heparin drip for the procedure and then resume after the procedure Splenic infarct could be embolic in nature 2D echo does not show any signs of thrombus Follow-up blood cultures Potassium magnesium and phosphorus being replaced Continue with empiric antibiotics for 48 hours I have personally spent 42 minutes of critical care time in the direct management of this patient. This is a life/limb threatening event. This includes time spent evaluating patient, direct bedside care, chart review, placing orders, interpretation of diagnostic studies, discussion with consultants, patient, and family members, as well as other required patient management activities. This time is exclusive of all separately billable procedures, and teaching time and separate from and in addition to any other critical care service time. Please note the above document was generated using voice recognition software. It may contain grammatical, syntax or spelling errors. Admission and Anticipated Discharge Date Admission Date: May 13, 2025 Subjective Patient seen and examined at bedside. No acute distress, not worsening overnight He said he is feeling better compared to when he came to the hospital Heart rate was in the low 100s Systolic blood pressure in the high 100s with MAP in the high 60s Saturating well on room air Denied any abdominal pain No nausea vomiting since coming to the hospital Has been afebrile Denied any abdominal pain No shortness of breath, no chest pain Review of Systems 2 Review of Systems: All systems reviewed & are unremarkable except as noted in Subjective Physical Exam 2 Physical Exam: Constitutional: No acute distress HEENT: EOMI, PERRLA Respiratory system: Decreased air entry bilaterally, more decreased on the right side no wheeze, rhonchi, positive crackles bilaterally CVS: S1-S2 positive, no murmurs or gallops Abdomen: Soft, nontender, nondistended, positive bowel sounds x4 Extremities: +2 pulses bilaterally radialis/ dorsalis pedis, no cyanosis, no edema Neuro: Awake alert oriented x3 Psych: Normal mood and affect G/U: No Avalos Skin: no rashes, warm and dry Lymphatic: no cervical or axillary lymphadenopathy Results & Data Results & Data Vital Signs (Past 12 Hours) Vital Signs Temp Pulse Pulse Resp BP BP Pulse Ox 05/14/25 06:46 115 H 05/14/25 06:02 95/68 L 05/14/25 06:00 106 H 94 05/14/25 05:03 131 H 18 92 05/14/25 05:01 85/59 L 05/14/25 05:00 101 H 15 05/14/25 04:00 104 H 20 97 05/14/25 04:00 101/62 05/14/25 04:00 101/62 05/14/25 03:03 117 H 22 92 05/14/25 03:01 111/69 05/14/25 03:00 118 H 14 94 05/14/25 02:00 106 H 21 92 05/14/25 02:00 90/68 L 05/14/25 01:08 110/89 05/14/25 01:00 106 H 19 94 05/14/25 00:32 112/83 05/14/25 00:30 108 H 21 93 05/14/25 00:00 109 H 21 95 05/14/25 00:00 112/78 05/14/25 00:00 36.7 C 05/14/25 00:00 107 H 05/13/25 23:30 103 H 17 95 05/13/25 23:30 108/83 05/13/25 23:00 110 H 20 92 05/13/25 22:30 107 H 18 94 05/13/25 22:30 102/76 05/13/25 22:00 116 H 22 94 05/13/25 22:00 113/82 05/13/25 21:51 105 H 05/13/25 21:45 36.7 C 115 H 16 107/78 95 05/13/25 20:30 119 H 18 90/64 L 05/13/25 20:15 116 H 22 86/63 L 05/13/25 20:06 118 H 23 84/65 L 05/13/25 20:00 111 H 23 81/69 L O2 Del Method 05/14/25 06:46 05/14/25 06:02 05/14/25 06:00 05/14/25 05:03 05/14/25 05:01 05/14/25 05:00 05/14/25 04:00 05/14/25 04:00 05/14/25 04:00 05/14/25 03:03 05/14/25 03:01 05/14/25 03:00 05/14/25 02:00 05/14/25 02:00 05/14/25 01:08 05/14/25 01:00 05/14/25 00:32 05/14/25 00:30 05/14/25 00:00 05/14/25 00:00 05/14/25 00:00 05/14/25 00:00 05/13/25 23:30 05/13/25 23:30 05/13/25 23:00 05/13/25 22:30 05/13/25 22:30 05/13/25 22:00 05/13/25 22:00 05/13/25 21:51 05/13/25 21:45 Room Air 05/13/25 20:30 05/13/25 20:15 05/13/25 20:06 05/13/25 20:00 Laboratory Results 05/14/25 04:44 05/14/25 04:44 Coding Level of Care Code 62914 CRITICAL CARE 1ST 30-74M Diagnoses Hypotension I95.9 Splenic infarct D73.5 Elevated brain natriuretic peptide (BNP) level R79.89 Hyperbilirubinemia E80.6 Transaminitis R74.01 Elevated lactic acid level R79.89 Nausea & vomiting R11.2 Atrial fibrillation with rapid ventricular response I48.91 (HFpEF) heart failure with preserved ejection fraction I50.30 Chronic steroid use Lung mass R91.8 Pulmonary thromboembolism I26.99 Pleural effusion, bilateral J90 Hepatitis C B19.20 Rheumatoid arthritis M06.9 COPD (chronic obstructive pulmonary disease) J44.9
[2025-05-14] MEDS: VANCOMYCIN HCL 1,750 MG in SODIUM CHLORIDE 0.9% 500 ML IV ONE (08:25)
[2025-05-14] MEDS: UMECLIDINIUM/VILANTEROL 62.5/25MCG 7 PUFFS/INHALER INH SCH (08:25)
[2025-05-14] MEDS: DIVALPROEX EXTENDED RELEASE 250 MG TABCR PO SCH (08:26)
[2025-05-14] MEDS: FLUTICASONE FUROATE 100MCG 14 PUFFS/INHALER INH SCH (08:26)
[2025-05-14 08:30] LABS: Magnesium 1.8 mg/dl (1.7-2.4)
[2025-05-14] MEDS ORDERED: NON-FORMULARY MEDICATION (Fluticasone-Umeclidin-Vilanter [Trelegy Ellipta] 100-62.5-25 mcg INH SCH (09:00)
[2025-05-14] MEDS ORDERED: POTASSIUM PHOS 3 MMOL/1 ML INFUSION IV STA (09:25)
--- NOTE | 2025-05-14 10:01 | Hospitalist Progress Note ---
Date of Service May 14, 2025 Assessment & Plan (1) Transaminitis: (2) Nausea & vomiting: (3) Atrial fibrillation with rapid ventricular response: (4) Hypotension: (5) Splenic infarct: (6) Chronic heart failure with preserved ejection fraction (HFpEF): (7) ASCVD (arteriosclerotic cardiovascular disease): (8) COPD (chronic obstructive pulmonary disease): (9) PAD (peripheral artery disease): (10) Rheumatoid arthritis: Plan: Patient with past medical history of rheumatoid arthritis on chronic steroid, atrial fibrillation on Eliquis, COPD, presented to the hospital with nausea and vomiting for several days. Reports history of noncompliance with the medication. He has not been able to intake his home medication. Patient was admitted to medical floor; was transferred to ICU for persistent hypotension despite fluid resuscitation Transaminitis Possible acute adrenal insufficiency Possible cannabinoid induced hyperemesis Possible acute gastroenteritis Possible sepsis POA WBC elevated to 11,000 on admission Lactate elevated to 2.4 and up trended with eventual downtrend CXR: Cardiomegaly with evidence of congestive failure. Mild bilateral airspace opacities likely representing mild pulmonary edema. No large pleural effusion is seen. CT Abd/pelvis: New splenic infarct. Hepatic cirrhosis with minimal amount of intra-abdominal ascites improved since prior exam. 3 cm pulmonary nodule right lower lobe. Findings are concerning for neoplasm but stable since prior exam. Gallbladder ultrasound shows hepatomegaly AST/ALT downtrending Continue on a stress dose steroid Continue empiric antibiotic until blood cultures are back Continue IV fluids AF with RVR Splenic infarct History of A-fib on Eliquis but not taking it. CT abdomen/pelvis showing a splenic infarct Given digoxin/IV Lopressor Currently on heparin; plan to switch over to Eliquis after patient undergoes thoracentesis Will restart metoprolol if blood pressure continues to be stable Follow-up on echocardiogram' Patient reports that he is not compliant with his medication. I discussed that he is at high risks of having strokes,infracts that could lead to significant physical disability, . He verbalized understanding of the risks associated of not being compliant with medication. #Dizziness Ongoing dizziness. Possible secondary to underlying illness Reported fall today CT head: no acute intracranial abnormality Obtain PT/OT Pulmonary massI discussed the finding of the pulmonary mass with the patient on May 14, 2025; I discussed that he needs to follow-up with his PCP and obtain pulmonology referral as outpatient for further workup. he verbalized understanding. He reports that he had been told about the pulmonary mass was secondary to rheumatoid arthritis #Chronic HFpEF BNP:1517 Plan to hold home atorvastatin with elevated LFTs Holding home Entresto, spironolactone, jardiance at this time as above with hypotension #Rheumatoid arthritis: On home leflunomide, sulfasalazine and prednisone #CAD #PAD Nonobstructive CAD per cardiac catheterization 04/20/2021 # Mood disorder: On home divalproex #COPD No signs of acute exacerbation at this time On home Trelegy DVT prophylaxis Heparin Time spent evaluating patient, direct bedside care, chart review, placing orders, interpretation of diagnostic studies, discussion with consultants, patient, and family members, as well as other required patient management activities is 50 minutes Please note the above document was generated using voice recognition software. It may contain grammatical, syntax or spelling errors. Any formal questions or concerns about the content, text or information contained within the body of this dictation should be directly addressed to the provider for clarification Admission and Anticipated Discharge Date Admission Date: May 13, 2025 Subjective Patient seen and examined at bedside. He is alert oriented x 3; not in distress. He denies fever, chills, chest pain, shortness of breath, abdomen pain or nausea/vomiting. Review of Systems Review of Systems: All systems reviewed & are unremarkable except as noted in Subjective Physical Exam Physical Exam: General: no distress at rest in bed, Head: normocephalic, atraumatic Eyes: PERRL, conjunctiva non-injected, +icteric ENT: normal inspection external ears, nose, mucous membranes dry Neck: supple, trachea midline Lungs: clear, no respiratory distress, no wheezing/rhonchi/rales CV: irregularly irregular,, no pretibial edema Abd: normal BS, soft, negative Sheppard's sign on exam Ext: no cyanosis, no calf tenderness Neuro: A&O x 3, no focal deficits noted, normal affect Skin: warm, dry Results & Data Results & Data Vital Signs (Past 12 Hours) Vital Signs Temp Pulse Resp BP Pulse Ox O2 Del Method 05/14/25 07:38 Room Air 05/14/25 06:46 115 H 05/14/25 06:02 95/68 L 05/14/25 06:00 106 H 94 05/14/25 05:03 131 H 18 92 05/14/25 05:01 85/59 L 05/14/25 05:00 101 H 15 05/14/25 04:00 104 H 20 97 05/14/25 04:00 101/62 05/14/25 04:00 101/62 05/14/25 03:03 117 H 22 92 05/14/25 03:01 111/69 05/14/25 03:00 118 H 14 94 05/14/25 02:00 106 H 21 92 05/14/25 02:00 90/68 L 05/14/25 01:08 110/89 05/14/25 01:00 106 H 19 94 05/14/25 00:32 112/83 05/14/25 00:30 108 H 21 93 05/14/25 00:00 109 H 21 95 05/14/25 00:00 112/78 05/14/25 00:00 36.7 C 05/14/25 00:00 107 H 05/13/25 23:30 103 H 17 95 05/13/25 23:30 108/83 05/13/25 23:00 110 H 20 92 05/13/25 22:30 107 H 18 94 05/13/25 22:30 102/76 05/13/25 22:00 116 H 22 94 05/13/25 22:00 113/82
[2025-05-14 10:34] LABS: Albumin Level 3.6 gm/dl (3.4-5.0); Bilirubin,Total 1.7 mg/dl (0.2-1.0); Total Protein 6.4 gm/dl (6.0-8.3)
[2025-05-14] MEDS: POTASSIUM PHOSPHATE 15 MMOL in SODIUM CHLORIDE 0.9% 250 ML IV ONE (11:23)
[2025-05-14] MEDS: MAGNESIUM SULFATE / D5W 1 GM/100 ML BAG IV SCH (11:23)
--- NOTE | 2025-05-14 12:28 | XCELERA ---
[id number] \\[email or web address]\[id number]
--- NOTE | 2025-05-14 12:44 | Gastrointestinal Consultation ---
Date of Consultation May 14, 2025 Assessment & Plan (1) Transaminitis: Plan Patient with history of drug and alcohol abuse currently admitted with A fib with RVR, hypotension, splenic infarct, chronic heart failure with preserved injection fraction, COPD, PAD who initially had nausea, vomiting, and body aches. He does note he is feeling better but had elevations of his LFTs which are now dropping. Question of cirrhosis on CT but not US. It is possible rise in LFTs are secondary to his other current issues given that these are improving. - await pending liver labs. - would continue to trend LFTs. - Further recommendations to come with Supervising GI provider on medical rounds. Please see co-signature comments. Supervising Physician Co-Signing Physician Notes History of hepatitis C. Probable early cirrhosis on imaging. Acute deterioration likely cardiac in nature. He has ejection fraction 20% and reported severe mitral regurgitation. Suspect congestive hepatomegaly. Recommend just follow LFTs as his cardiac conditions improve expect them to improve. Await workup and hepatitis C though he believes this was treated in the past, he will remain hepatitis C antibody positive. History of Present Illness Reason for Consultation: elevated LFTs Requesting Physician: Sander Garcia PAC Attending Physician: Ned Dueñas MD History of Present Illness Patient is a 60 year old male with a past medical history of rheumatoid arthritis, Raynaud's, persistent atrial fibrillation on Eliquis, COPD, history cardiomyopathy in setting of a-fib RVR in 06/2022, CAD, PAD, and PE who presented to ED on 05/13 with complaints of body aches, nausea, vomiting, weakness x 2 weeks and unable to retain home medications. He was admitted with a fib with RVR, hypotension, splenic infact, chronic heart failure with preserved injection fraction, COPD, PAD. GI asked to see if transaminitis. He reports abuse of IV drugs, meth, and alcohol in the past. He notes he has a history of Hep C that was treated about 8 years ago and "cured", but notes he had relapsed on drug use after treatment. He tells me he has been clean for about 2 years. he tells me that nausea and vomiting does seem improved. no abdominal pain. the rest of GI ros are unremarkable. 05/14/25 wbc 9.04, hgb 11.5, hct 36.3, plts 276, Na 130, K 3.9, BUN 16, Cr 0.91, T bili 1.7, AST 307, ALT 430, Alk phos 78, 05/13/25 AFP pending, CA 19-9 pending, NASRIN pending, CMV pending, EBV suggestive of past infection,Hep Bs antigen negative, Hep A pending, Hep C prelim positive, HCV RNA pending. 05/13/25 CT A/P - New splenic infarct, Hepatic cirrhosis with minimal amount of intra-abdominal ascites improved since prior exam. 3 cm pulmonary nodule right lower lobe. Findings are concerning for neoplasm but stable since prior exam. Dedicated chest CT recommended for further evaluation. 05/14/25 US - Hepatomegaly with coarse, echogenic hepatic parenchyma, suggestive of chronic liver disease and/or hepatic steatosis. Correlate with liver function tests and viral markers. Trace abdominal ascites. Mildly dilated common bile duct (7.2 mm); correlate with laboratory values. Limited pancreatic evaluation due to overlying bowel gas. Incidental right pleural effusion. Unremarkable gallbladder with negative sonographic Sheppard's sign. Allergies Allergy/AdvReac Type Severity Reaction Status Date / Time No Known Allergies Allergy Verified 12/29/24 08:57 Home Medications Medication Instructions Recorded Confirmed Type nitroglycerin 0.4 mg sublingual 0.4 mg sublingual UD PRN Chest Pain 08/27/21 05/13/25 History tablet cholecalciferol (vitamin D3) 10 10 mcg PO QAM #30 caps 12/04/23 05/13/25 Rx mcg (400 unit) capsule (Vitamin D3) digoxin 125 mcg (0.125 mg) tablet 0.125 mcg (0.001 x 125 mcg (0.125 12/04/23 05/13/25 Rx mg)) PO QAM #30 tabs duloxetine 30 mg capsule,delayed 30 mg PO QAM #30 caps 12/04/23 05/13/25 Rx release omeprazole 40 mg capsule,delayed 40 mg PO DAILYBB #30 caps 12/04/23 05/13/25 Rx release spironolactone 25 mg tablet 12.5 mg (1/2 x 25 mg) PO QAM #15 12/04/23 05/13/25 Rx tabs sulfasalazine 500 mg tablet 1,000 mg (2 x 500 mg) PO BID #120 12/04/23 05/13/25 Rx tabs aspirin 81 mg tablet 81 mg PO QAM 12/25/24 05/13/25 History atorvastatin 10 mg tablet 10 mg PO DAILY 12/25/24 05/13/25 History divalproex 250 mg tablet,extended 250 mg PO QAM 12/25/24 05/13/25 History release 24 hr empagliflozin 25 mg tablet 25 mg PO QAM 12/25/24 05/13/25 History (Jardiance) fluticasone fur. 100 mcg-umeclid 1 ea inhalation QA 12/25/24 05/13/25 History 62.5 mcg-vilant 25 mcg inhalat.powder (Trelegy Ellipta) leflunomide 10 mg tablet 10 mg PO QAM 12/25/24 05/13/25 History magnesium oxide 400 mg (241.3 mg 400 mg PO QAM 12/25/24 05/13/25 History magnesium) tablet prednisone 5 mg tablet 10 mg PO DAILY RHEUMATOID ARTHRITIS 12/25/24 05/13/25 History sacubitril 24 mg-valsartan 26 mg 1 tab PO AMHS 12/25/24 05/13/25 History tablet (Entresto) oxycodone-acetaminophen 10 mg-325 1 tab PO BID PRN Pain,severe #15 12/30/24 05/13/25 Rx mg tablet tabs apixaban 5 mg tablet (Eliquis) 5 mg PO AMHS 05/13/25 05/13/25 History metoprolol succinate 50 mg 50 mg PO Q12 05/13/25 05/13/25 History tablet,extended release 24 hr Patient History Medical History Chronic heart failure with preserved ejection fraction (HFpEF) Heart failure with improved ejection fraction (HFimpEF) Medical non-compliance COPD (chronic obstructive pulmonary disease) History of osteomyelitis ASCVD (arteriosclerotic cardiovascular disease) Chronic atrial fibrillation Dyslipidemia, goal LDL below 70 Erectile dysfunction Tobacco use disorder Surgical History History of cardiac cath History of colonoscopy Hx of tonsillectomy Family History Other Heart disease Hypertension Social History Smoking Status: Former smoker Tobacco Type: Cigarettes and Smokeless Tobacco (Dip or Chew) Cigarettes Per Day: 5; Second Hand Exposure: No; Do You Dip or Chew Tobacco: No; Hx Alcohol Use: No Hx Substance Use: No Preferred Language: [place] Communication Ability: Effective Tooling Supervisor Required: No Beliefs That Will Affect Care: None Current Living Situation: Significant Other Current Living Situation Comment: Lives at home with girlfriend Hayley, & their child Danica Feels Safe at Home: Yes Assistive Devices: Cane, Glasses and Oxygen - at Night Review of Systems Review of Systems: All systems reviewed & are unremarkable except as noted in HPI & below Physical Exam Constitutional: WD/WN, vitals as above Respiratory: normal respiratory effort, lungs clear to auscultation Cardiovascular: Rate/Rhythm: regular rate and regular rhythm Gastrointestinal (Abdomen): normal bowel sounds, soft, nontender, no hepatosplenomegaly Psychiatric: Orientation: alert and oriented x 3 Results & Data Vital Signs (Past 12 Hours) Vital Signs Pulse Resp BP Pulse Ox O2 Del Method 05/14/25 07:38 Room Air 05/14/25 06:46 115 H 05/14/25 06:02 95/68 L 05/14/25 06:00 106 H 94 05/14/25 05:03 131 H 18 92 05/14/25 05:01 85/59 L 05/14/25 05:00 101 H 15 05/14/25 04:00 104 H 20 97 05/14/25 04:00 101/62 05/14/25 04:00 101/62 05/14/25 03:03 117 H 22 92 05/14/25 03:01 111/69 05/14/25 03:00 118 H 14 94 05/14/25 02:00 106 H 21 92 05/14/25 02:00 90/68 L 05/14/25 01:08 110/89 05/14/25 01:00 106 H 19 94 Coding Level of Care Code 60911 INT INP/OBS CARE 2/55MIN Diagnoses Transaminitis R74.01
--- NOTE | 2025-05-14 12:58 | Cardiology Consultation ---
Date of Consultation May 14, 2025 Assessment & Plan (1) Heart failure with reduced ejection fraction: Decline in overall LV systolic function since last assessed, EF 20% (2) Severe left ventricular systolic dysfunction (LVSD): (3) Atrial fibrillation with rapid ventricular response: (4) Transaminitis: Plan Patient is a complex 60-year-old male with known history of prior nonischemic cardiomyopathy possibly tachycardia mediated with return to near normal LV function with medical therapies presents now with signs and symptoms of acute decline with elevated transaminases question acute process versus hepatic congestion secondary to severely reduced LV systolic function. Patient admits to lapse in cardiac medications including anticoagulants Currently improving under critical care attention Recommendations: 1. Atrial fibrillation with rapid response agree with initiation of digoxin will resume metoprolol succinate at reduced dose until clinical course defined beginning with 25 mg twice per day first tonight 2. Severe LV dysfunction, global with moderately severe mitral tricuspid insufficiency. Given history suspect tachycardia mediatedy but underlying processes may need to be redefined Plan to reinstitute Entresto at reduced dose 3. Elevated transaminases: Appreciate GI input History of Present Illness Attending Physician: Ned Dueñas MD History of Present Illness Patient is a complex 60-year-old male referred for evaluation with underlying cardiac concerns 1. Paroxysmal now persistent atrial fibrillation 2. Prior tachycardia mediated, Nonischemic cardiomyopathy with severe LV dysfunction EF June 2022 with return to near normal function with medical therapies 3. Nonobstructive coronary disease cardiac catheterization March 2021 4. Chronic heart failure with reduced ejection fraction NYHA class III 5. Rheumatoid arthritis 6. Diabetes mellitus 7. Atherosclerotic peripheral vascular disease/Raynaud's disease Patient presents now noting gradual decline in functional capacity over 1 to 2 months duration with increasing dyspnea and fatigue ultimately presenting with 2 weeks history of nausea emesis and malaise. No overt febrile illness or chills. Notes distinct chest pain. Not aware of tachypalpitations, syncope or near syncope. No overt increase in weight or edema. No bleeding issues. Patient does admit to lapse in medical therapies Allergies Allergy/AdvReac Type Severity Reaction Status Date / Time No Known Allergies Allergy Verified 12/29/24 08:57 Home Medications Medication Instructions Recorded Confirmed Type nitroglycerin 0.4 mg sublingual 0.4 mg sublingual UD PRN Chest Pain 08/27/21 05/13/25 History tablet cholecalciferol (vitamin D3) 10 10 mcg PO QAM #30 caps 12/04/23 05/13/25 Rx mcg (400 unit) capsule (Vitamin D3) digoxin 125 mcg (0.125 mg) tablet 0.125 mcg (0.001 x 125 mcg (0.125 12/04/23 05/13/25 Rx mg)) PO QAM #30 tabs duloxetine 30 mg capsule,delayed 30 mg PO QAM #30 caps 12/04/23 05/13/25 Rx release omeprazole 40 mg capsule,delayed 40 mg PO DAILYBB #30 caps 12/04/23 05/13/25 Rx release spironolactone 25 mg tablet 12.5 mg (1/2 x 25 mg) PO QAM #15 12/04/23 05/13/25 Rx tabs sulfasalazine 500 mg tablet 1,000 mg (2 x 500 mg) PO BID #120 12/04/23 05/13/25 Rx tabs aspirin 81 mg tablet 81 mg PO QAM 12/25/24 05/13/25 History atorvastatin 10 mg tablet 10 mg PO DAILY 12/25/24 05/13/25 History divalproex 250 mg tablet,extended 250 mg PO QAM 12/25/24 05/13/25 History release 24 hr empagliflozin 25 mg tablet 25 mg PO QAM 12/25/24 05/13/25 History (Jardiance) fluticasone fur. 100 mcg-umeclid 1 ea inhalation [facility] 12/25/24 05/13/25 History 62.5 mcg-vilant 25 mcg inhalat.powder (Trelegy Ellipta) leflunomide 10 mg tablet 10 mg PO QAM 12/25/24 05/13/25 History magnesium oxide 400 mg (241.3 mg 400 mg PO QA 12/25/24 05/13/25 History magnesium) tablet prednisone 5 mg tablet 10 mg PO DAILY RHEUMATOID ARTHRITIS 12/25/24 05/13/25 History sacubitril 24 mg-valsartan 26 mg 1 tab PO [facility] 12/25/24 05/13/25 History tablet (Entresto) oxycodone-acetaminophen 10 mg-325 1 tab PO BID PRN Pain,severe #15 12/30/24 05/13/25 Rx mg tablet tabs apixaban 5 mg tablet (Eliquis) 5 mg PO AMHS 05/13/25 05/13/25 History metoprolol succinate 50 mg 50 mg PO Q12 05/13/25 05/13/25 History tablet,extended release 24 hr Patient History Medical History Chronic heart failure with preserved ejection fraction (HFpEF) Heart failure with improved ejection fraction (HFimpEF) Medical non-compliance COPD (chronic obstructive pulmonary disease) History of osteomyelitis ASCVD (arteriosclerotic cardiovascular disease) Chronic atrial fibrillation Dyslipidemia, goal LDL below 70 Erectile dysfunction Tobacco use disorder Surgical History History of cardiac cath History of colonoscopy Hx of tonsillectomy Family History Other Heart disease Hypertension Social History Smoking Status: Former smoker Tobacco Type: Cigarettes and Smokeless Tobacco (Dip or Chew) Cigarettes Per Day: 5; Second Hand Exposure: No; Do You Dip or Chew Tobacco: No; Hx Alcohol Use: No Hx Substance Use: No Preferred Language: Sami Communication Ability: Effective It Security Consulting Director Required: No Beliefs That Will Affect Care: None Current Living Situation: Significant Other Current Living Situation Comment: Lives at home with girlfrienny Hardy, & their child Danica Feels Safe at Home: Yes Assistive Devices: Cane, Glasses and Oxygen - at Night Review of Systems Review of Systems: All systems reviewed & are unremarkable except as noted in HPI & below Physical Exam Constitutional: + ill appearing; no acute distress Eyes: PERRL, conjunctivae normal, anicteric sclerae Neck: trachea midline, no thyromegaly + thick neck Respiratory: Auscultation: + diminished lung sounds; no rhonchi Cardiovascular: Rate/Rhythm: + tachycardic and + irregularly irregular Heart Sounds: + murmur (Grade 1/6 holosystolic murmur at apex no diastolic) Extremities: no edema Gastrointestinal (Abdomen): Inspection/Auscultation: abdomen not distended Results & Data Vital Signs (Past 12 Hours) Vital Signs Pulse Resp BP Pulse Ox O2 Del Method 05/14/25 07:38 Room Air 05/14/25 06:46 115 H 05/14/25 06:02 95/68 L 12/18/25 06:00 106 H 94 05/14/25 05:03 131 H 18 92 05/14/25 05:01 85/59 L 05/14/25 05:00 101 H 15 05/14/25 04:00 104 H 20 97 05/14/25 04:00 101/62 05/14/25 04:00 101/62 05/14/25 03:03 117 H 22 92 05/14/25 03:01 111/69 05/14/25 03:00 118 H 14 94 05/14/25 02:00 106 H 21 92 05/14/25 02:00 90/68 L 05/14/25 01:08 110/89 05/14/25 01:00 106 H 19 94 Laboratory Results Laboratory Results - last 24 hr 05/13/25 05/13/25 05/13/25 16:30 16:47 16:49 WBC 11.29 H RBC 5.47 Hgb 13.0 L Hct 39.8 L MCV 72.8 L MCH 23.8 L MCHC 32.7 RDW Std Deviation 48.3 H RDW Coeff of Alex 20.1 H Plt Count 290 MPV 11.2 Immature Gran % (Auto) 0.3 Neut % (Auto) 81.6 Lymph % (Auto) 10.4 [place] % (Auto) 7.1 Eos % (Auto) 0.2 Baso % (Auto) 0.4 Neut # (Auto) 9.22 H Lymph # (Auto) 1.17 L [place] # (Auto) 0.80 H Eos # (Auto) 0.02 Baso # (Auto) 0.05 Immature Gran # (Auto) 0.03 Absolute Nucleated RBC 0.02 Nucleated RBC % (auto) 0.2 Toxic Vacuolation 1+ Polychromasia 1+ Anisocytosis Present Ovalocytes 1+ PT INR APTT PTT Ratio Heparin Anti-Xa, Unfract Sodium 130 L Potassium 4.4 Chloride 101 Carbon Dioxide 18 L Anion Gap 11 BUN 20 Creatinine 0.88 Est Cr Clr Drug Dosing 102.8 eGFR 97.83 BUN/Creatinine Ratio 22.7 H Glucose 103 H POC Glucose Estimat Average Glucose Hemoglobin A1c Osmolality Lactate 2.4 H* Calcium 9.1 Phosphorus Magnesium 1.8 Total Bilirubin 2.4 H Direct Bilirubin 1.0 H AST 520 H ALT 576 H Alkaline Phosphatase 94 Lactate Dehydrogenase Total Creatine Kinase 27 L Troponin I High Sens 39.2 H B-Natriuretic Peptide 1517 H Total Protein 6.5 Albumin 3.7 Globulin Albumin/Globulin Ratio Triglycerides Cholesterol LDL Cholesterol, Calc VLDL Cholesterol, Calc HDL Cholesterol Cholesterol/HDL Ratio Lipase Tumor Marker AFP Carcinoembryonic Ag CA 19-9 Antigen Procalcitonin 0.32 TSH Cortisol AM Sample Urine Color Dark Yellow Urine Appearance Clear Urine pH 5.0 Ur Specific [place] 1.025 Urine Protein 1+ H Urine Glucose (UA) 3+ H Urine Ketones 2+ H Urine Blood Negative Urine Nitrite Negative Urine Bilirubin 1+ H Urine Urobilinogen Negative Ur Leukocyte Esterase Negative Urine WBC (Auto) 0-5 Urine RBC (Auto) 0-2 U Hyaline Cast (Auto) 0-2 U Epithel Cells (Auto) 0-2 Urine Bacteria (Auto) None Seen Urine Osmolality Ur Random Creatinine Ur Random Sodium Ur Random Potassium Ur Random Chloride Urine Comment Fluid Neutrophils % Fluid Lymphocytes % Fluid Meso/Macro/[place] % Fluid Comment Pleural Fluid Source Pleural Color Pleural Appearance Pleural pH Pleural WBC (Auto) Pleural RBC (Auto) Pleural Total Protein Pleural LDH Pleural Glucose Nasal Screen MRSA (PCR) Digoxin Urine Opiates Screen Ur Methadone, Qual Urine Fentanyl Screen Urine Barbiturates Valproic Acid Ur Phencyclidine (PCP) U Amphetamin/Meth Scrn MDMA (Ecstasy) Screen U Benzodiazepines Scrn Ur Cocaine Metabolite U Marijuana (THC) Screen U Marijuana THC Carboxy Drug Screen Comment NASRIN Screen Adenovirus (PCR) B. pertussis DNA (PCR) B.parapertussis DNA PCR C. pneumoniae DNA (PCR) Coronavirus OC43 (PCR) Coronavirus HKU1 (PCR) Coronavirus 229E (PCR) SARS-CoV-2 (PCR) Coronavirus NL63 (PCR) CMV IgM Ab CMV IgG Ab/TORCH EBV Capsid Ag IgG Ab EBV Caps Ag IgG Sig Str EBV Capsid Ag IgM Ab EBV Caps Ag IgM Sig Str EBV Nuclear Antigen Ab EBV Nucl Ag IgG Sig Str EBV Interpretation Hepatitis A IgM Ab Hep Bs Antigen Negative Hep B Core IgM Ab Hepatitis C Antibody Prelim Positive A HCV RNA (PCR) IUs/ml Pending HCV RNA PCR log IUs/ml Pending HIV 1&2 Ab/P24 Ag 4thGn Human Metapneumovir PCR Influenza Type A (PCR) Influenza Type B (PCR) M. pneumoniae (PCR) Parainfluenza 1 (PCR) Parainfluenza 2 (PCR) Parainfluenza 3 (PCR) Parainfluenza 4 (PCR) RSV (RT-PCR) RSV (PCR) Entero/Rhino (PCR) Staphylococcus sp PCR DETECTED A mecA/C-Methicil Resis Gene Not Detected Staph epidermidis (PCR) DETECTED A Bld Cult ID Panel PCR See PCR Comment 05/13/25 05/13/25 05/13/25 16:58 16:58 16:58 WBC RBC Hgb Hct MCV MCH MCHC RDW Std Deviation RDW Coeff of Alex Plt Count MPV Immature Gran % (Auto) Neut % (Auto) Lymph % (Auto) [place] % (Auto) Eos % (Auto) Baso % (Auto) Neut # (Auto) Lymph # (Auto) [place] # (Auto) Eos # (Auto) Baso # (Auto) Immature Gran # (Auto) Absolute Nucleated RBC Nucleated RBC % (auto) Toxic Vacuolation Polychromasia Anisocytosis Ovalocytes PT INR APTT PTT Ratio Heparin Anti-Xa, Unfract Sodium Potassium Chloride Carbon Dioxide Anion Gap BUN Creatinine Est Cr Clr Drug Dosing eGFR BUN/Creatinine Ratio Glucose POC Glucose Estimat Average Glucose Hemoglobin A1c Osmolality Lactate Calcium Phosphorus Magnesium Total Bilirubin Direct Bilirubin AST ALT Alkaline Phosphatase Lactate Dehydrogenase Total Creatine Kinase Troponin I High Sens B-Natriuretic Peptide Total Protein Albumin Globulin Albumin/Globulin Ratio Triglycerides Cholesterol LDL Cholesterol, Calc VLDL Cholesterol, Calc HDL Cholesterol Cholesterol/HDL Ratio Lipase Tumor Marker AFP Carcinoembryonic Ag CA 19-9 Antigen Procalcitonin TSH Cortisol AM Sample Urine Color Urine Appearance Urine pH Ur Specific [place] Urine Protein Urine Glucose (UA) Urine Ketones Urine Blood Urine Nitrite Urine Bilirubin Urine Urobilinogen Ur Leukocyte Esterase Urine WBC (Auto) Urine RBC (Auto) U Hyaline Cast (Auto) U Epithel Cells (Auto) Urine Bacteria (Auto) Urine Osmolality Ur Random Creatinine Ur Random Sodium Ur Random Potassium Ur Random Chloride Urine Comment Fluid Neutrophils % Fluid Lymphocytes % Fluid Meso/Macro/[place] % Fluid Comment Pleural Fluid Source Pleural Color Pleural Appearance Pleural pH Pleural WBC (Auto) Pleural RBC (Auto) Pleural Total Protein Pleural LDH Pleural Glucose Nasal Screen MRSA (PCR) Digoxin Urine Opiates Screen Ur Methadone, Qual Urine Fentanyl Screen Urine Barbiturates Valproic Acid Ur Phencyclidine (PCP) U Amphetamin/Meth Scrn MDMA (Ecstasy) Screen U Benzodiazepines Scrn Ur Cocaine Metabolite U Marijuana (THC) Screen U Marijuana THC Carboxy Drug Screen Comment NASRIN Screen Adenovirus (PCR) Not Detected B. pertussis DNA (PCR) Not Detected B.parapertussis DNA PCR Not Detected C. pneumoniae DNA (PCR) Not Detected Coronavirus OC43 (PCR) Not Detected Coronavirus HKU1 (PCR) Not Detected Coronavirus 229E (PCR) Not Detected SARS-CoV-2 (PCR) NEGATIVE Not Detected Coronavirus NL63 (PCR) Not Detected CMV IgM Ab CMV IgG Ab/TORCH EBV Capsid Ag IgG Ab EBV Caps Ag IgG Sig Str EBV Capsid Ag IgM Ab EBV Caps Ag IgM Sig Str EBV Nuclear Antigen Ab EBV Nucl Ag IgG Sig Str EBV Interpretation Hepatitis A IgM Ab Hep Bs Antigen Hep B Core IgM Ab Hepatitis C Antibody HCV RNA (PCR) IUs/ml HCV RNA PCR log IUs/ml HIV 1&2 Ab/P24 Ag 4thGn Human Metapneumovir PCR Not Detected Influenza Type A (PCR) Negative Not Detected Influenza Type B (PCR) Negative M. pneumoniae (PCR) Parainfluenza 1 (PCR) Parainfluenza 2 (PCR) Parainfluenza 3 (PCR) Parainfluenza 4 (PCR) RSV (RT-PCR) RSV (PCR) Entero/Rhino (PCR) Staphylococcus sp PCR mecA/C-Methicil Resis Gene Staph epidermidis (PCR) Bld Cult ID Panel PCR 05/13/25 05/13/25 05/13/25 16:58 18:48 22:54 WBC RBC Hgb Hct MCV MCH MCHC RDW Std Deviation RDW Coeff of Alex Plt Count MPV Immature Gran % (Auto) Neut % (Auto) Lymph % (Auto) [place] % (Auto) Eos % (Auto) Baso % (Auto) Neut # (Auto) Lymph # (Auto) [place] # (Auto) Eos # (Auto) Baso # (Auto) Immature Gran # (Auto) Absolute Nucleated RBC Nucleated RBC % (auto) Toxic Vacuolation Polychromasia Anisocytosis Ovalocytes PT 16.7 H INR 1.6 H APTT 33 H PTT Ratio 1.2 Heparin Anti-Xa, Unfract 0.16 L Sodium Potassium Chloride Carbon Dioxide Anion Gap BUN Creatinine Est Cr Clr Drug Dosing eGFR BUN/Creatinine Ratio Glucose POC Glucose Estimat Average Glucose Hemoglobin A1c Osmolality Lactate 2.5 H* Calcium Phosphorus Magnesium Total Bilirubin Direct Bilirubin AST ALT Alkaline Phosphatase Lactate Dehydrogenase 363 H Total Creatine Kinase Troponin I High Sens 43.5 H B-Natriuretic Peptide Total Protein Albumin Globulin Albumin/Globulin Ratio Triglycerides Cholesterol LDL Cholesterol, Calc VLDL Cholesterol, Calc HDL Cholesterol Cholesterol/HDL Ratio Lipase 12 Tumor Marker AFP Carcinoembryonic Ag CA 19-9 Antigen Procalcitonin TSH Cortisol AM Sample Urine Color Urine Appearance Urine pH Ur Specific [place] Urine Protein Urine Glucose (UA) Urine Ketones Urine Blood Urine Nitrite Urine Bilirubin Urine Urobilinogen Ur Leukocyte Esterase Urine WBC (Auto) Urine RBC (Auto) U Hyaline Cast (Auto) U Epithel Cells (Auto) Urine Bacteria (Auto) Urine Osmolality Ur Random Creatinine Ur Random Sodium Ur Random Potassium Ur Random Chloride Urine Comment Fluid Neutrophils % Fluid Lymphocytes % Fluid Meso/Macro/[place] % Fluid Comment Pleural Fluid Source Pleural Color Pleural Appearance Pleural pH Pleural WBC (Auto) Pleural RBC (Auto) Pleural Total Protein Pleural LDH Pleural Glucose Nasal Screen MRSA (PCR) Digoxin < 0.3 L Urine Opiates Screen Ur Methadone, Qual Urine Fentanyl Screen Urine Barbiturates Valproic Acid < 10 L Ur Phencyclidine (PCP) U Amphetamin/Meth Scrn MDMA (Ecstasy) Screen U Benzodiazepines Scrn Ur Cocaine Metabolite U Marijuana (THC) Screen U Marijuana THC Carboxy Drug Screen Comment NASRIN Screen Adenovirus (PCR) B. pertussis DNA (PCR) B.parapertussis DNA PCR C. pneumoniae DNA (PCR) Coronavirus OC43 (PCR) Coronavirus HKU1 (PCR) Coronavirus 229E (PCR) SARS-CoV-2 (PCR) Coronavirus NL63 (PCR) CMV IgM Ab CMV IgG Ab/TORCH EBV Capsid Ag IgG Ab EBV Caps Ag IgG Sig Str EBV Capsid Ag IgM Ab EBV Caps Ag IgM Sig Str EBV Nuclear Antigen Ab EBV Nucl Ag IgG Sig Str EBV Interpretation Hepatitis A IgM Ab Hep Bs Antigen Hep B Core IgM Ab Hepatitis C Antibody HCV RNA (PCR) IUs/ml HCV RNA PCR log IUs/ml HIV 1&2 Ab/P24 Ag 4thGn Human Metapneumovir PCR Influenza Type A (PCR) Influenza Type B (PCR) Not Detected M. pneumoniae (PCR) Not Detected Parainfluenza 1 (PCR) Not Detected Parainfluenza 2 (PCR) Not Detected Parainfluenza 3 (PCR) Not Detected Parainfluenza 4 (PCR) Not Detected RSV (RT-PCR) Negative RSV (PCR) Not Detected Entero/Rhino (PCR) Not Detected Staphylococcus sp PCR mecA/C-Methicil Resis Gene Staph epidermidis (PCR) Bld Cult ID Panel PCR 05/13/25 05/13/25 05/13/25 22:55 23:52 Unknown WBC RBC Hgb Hct MCV MCH MCHC RDW Std Deviation RDW Coeff of Alex Plt Count MPV Immature Gran % (Auto) Neut % (Auto) Lymph % (Auto) [place] % (Auto) Eos % (Auto) Baso % (Auto) Neut # (Auto) Lymph # (Auto) [place] # (Auto) Eos # (Auto) Baso # (Auto) Immature Gran # (Auto) Absolute Nucleated RBC Nucleated RBC % (auto) Toxic Vacuolation Polychromasia Anisocytosis Ovalocytes PT INR APTT PTT Ratio Heparin Anti-Xa, Unfract Sodium Potassium Chloride Carbon Dioxide Anion Gap BUN Creatinine Est Cr Clr Drug Dosing eGFR BUN/Creatinine Ratio Glucose POC Glucose 100 H Estimat Average Glucose Hemoglobin A1c Osmolality Lactate Calcium Phosphorus Magnesium Total Bilirubin Direct Bilirubin AST ALT Alkaline Phosphatase Lactate Dehydrogenase Total Creatine Kinase Troponin I High Sens B-Natriuretic Peptide Total Protein Albumin Globulin Albumin/Globulin Ratio Triglycerides Cholesterol LDL Cholesterol, Calc VLDL Cholesterol, Calc HDL Cholesterol Cholesterol/HDL Ratio Lipase Tumor Marker AFP Pending Carcinoembryonic Ag 1.0 CA 19-9 Antigen Pending Procalcitonin TSH Cortisol AM Sample Urine Color Urine Appearance Urine pH Ur Specific [place] Urine Protein Urine Glucose (UA) Urine Ketones Urine Blood Urine Nitrite Urine Bilirubin Urine Urobilinogen Ur Leukocyte Esterase Urine WBC (Auto) Urine RBC (Auto) U Hyaline Cast (Auto) U Epithel Cells (Auto) Urine Bacteria (Auto) Urine Osmolality Ur Random Creatinine Ur Random Sodium Ur Random Potassium Ur Random Chloride Urine Comment Fluid Neutrophils % Fluid Lymphocytes % Fluid Mes[place]/Macro/[place] % Fluid Comment Pleural Fluid Source Pleural Color Pleural Appearance Pleural pH Pleural WBC (Auto) Pleural RBC (Auto) Pleural Total Protein Pleural LDH Pleural Glucose Nasal Screen MRSA (PCR) Positive A Digoxin Urine Opiates Screen Neg Ur Methadone, Qual Neg Urine Fentanyl Screen Neg Urine Barbiturates Neg Valproic Acid Ur Phencyclidine (PCP) Neg U Amphetamin/Meth Scrn Neg MDMA (Ecstasy) Screen Neg U Benzodiazepines Scrn Neg Ur Cocaine Metabolite Neg U Marijuana (THC) Screen Pos H U Marijuana THC Carboxy Pending Drug Screen Comment Pending NASRIN Screen Pending Adenovirus (PCR) B. pertussis DNA (PCR) B.parapertussis DNA PCR C. pneumoniae DNA (PCR) Coronavirus OC43 (PCR) Coronavirus HKU1 (PCR) Coronavirus 229E (PCR) SARS-CoV-2 (PCR) Coronavirus NL63 (PCR) CMV IgM Ab Pending CMV IgG Ab/TORCH Pending EBV Capsid Ag IgG Ab Positive EBV Caps Ag IgG Sig Str 256.0 EBV Capsid Ag IgM Ab Negative EBV Caps Ag IgM Sig Str < 10.0 EBV Nuclear Antigen Ab Positive EBV Nucl Ag IgG Sig Str > 600.0 EBV Interpretation See Comment Hepatitis A IgM Ab Pending Hep Bs Antigen Hep B Core IgM Ab Pending Hepatitis C Antibody HCV RNA (PCR) IUs/ml HCV RNA PCR log IUs/ml HIV 1&2 Ab/P24 Ag 4thGn Negative Human Metapneumovir PCR Influenza Type A (PCR) Influenza Type B (PCR) M. pneumoniae (PCR) Parainfluenza 1 (PCR) Parainfluenza 2 (PCR) Parainfluenza 3 (PCR) Parainfluenza 4 (PCR) RSV (RT-PCR) RSV (PCR) Entero/Rhino (PCR) Staphylococcus sp PCR mecA/C-Methicil Resis Gene Staph epidermidis (PCR) Bld Cult ID Panel PCR 05/14/25 05/14/25 05/14/25 00:25 00:35 03:00 WBC RBC Hgb Hct MCV MCH MCHC RDW Std Deviation RDW Coeff of Alex Plt Count MPV Immature Gran % (Auto) Neut % (Auto) Lymph % (Auto) [place] % (Auto) Eos % (Auto) Baso % (Auto) Neut # (Auto) Lymph # (Auto) [place] # (Auto) Eos # (Auto) Baso # (Auto) Immature Gran # (Auto) Absolute Nucleated RBC Nucleated RBC % (auto) Toxic Vacuolation Polychromasia Anisocytosis Ovalocytes PT INR APTT PTT Ratio Heparin Anti-Xa, Unfract Sodium Potassium Chloride Carbon Dioxide Anion Gap BUN Creatinine Est Cr Clr Drug Dosing eGFR BUN/Creatinine Ratio Glucose POC Glucose Estimat Average Glucose Hemoglobin A1c Osmolality Lactate 2.8 H* 2.6 H* Calcium Phosphorus Magnesium Total Bilirubin Direct Bilirubin AST ALT Alkaline Phosphatase Lactate Dehydrogenase Total Creatine Kinase Troponin I High Sens 38.7 H B-Natriuretic Peptide Total Protein Albumin Globulin Albumin/Globulin Ratio Triglycerides Cholesterol LDL Cholesterol, Calc VLDL Cholesterol, Calc HDL Cholesterol Cholesterol/HDL Ratio Lipase Tumor Marker AFP Carcinoembryonic Ag CA 19-9 Antigen Procalcitonin TSH Cortisol AM Sample Urine Color Urine Appearance Urine pH Ur Specific [place] Urine Protein Urine Glucose (UA) Urine Ketones Urine Blood Urine Nitrite Urine Bilirubin Urine Urobilinogen Ur Leukocyte Esterase Urine WBC (Auto) Urine RBC (Auto) U Hyaline Cast (Auto) U Epithel Cells (Auto) Urine Bacteria (Auto) Urine Osmolality Ur Random Creatinine Ur Random Sodium Ur Random Potassium Ur Random Chloride Urine Comment Fluid Neutrophils % Fluid Lymphocytes % Fluid Mes[place]/Macro/[place] % Fluid Comment Pleural Fluid Source Pleural Color Pleural Appearance Pleural pH Pleural WBC (Auto) Pleural RBC (Auto) Pleural Total Protein Pleural LDH Pleural Glucose Nasal Screen MRSA (PCR) Digoxin Urine Opiates Screen Ur Methadone, Qual Urine Fentanyl Screen Urine Barbiturates Valproic Acid Ur Phencyclidine (PCP) U Amphetamin/Meth Scrn MDMA (Ecstasy) Screen U Benzodiazepines Scrn Ur Cocaine Metabolite U Marijuana (THC) Screen U Marijuana THC Carboxy Drug Screen Comment NASRIN Screen Adenovirus (PCR) B. pertussis DNA (PCR) B.parapertussis DNA PCR C. pneumoniae DNA (PCR) Coronavirus OC43 (PCR) Coronavirus HKU1 (PCR) Coronavirus 229E (PCR) SARS-CoV-2 (PCR) Coronavirus NL63 (PCR) CMV IgM Ab CMV IgG Ab/TORCH EBV Capsid Ag IgG Ab EBV Caps Ag IgG Sig Str EBV Capsid Ag IgM Ab EBV Caps Ag IgM Sig Str EBV Nuclear Antigen Ab EBV Nucl Ag IgG Sig Str EBV Interpretation Hepatitis A IgM Ab Hep Bs Antigen Hep B Core IgM Ab Hepatitis C Antibody HCV RNA (PCR) IUs/ml HCV RNA PCR log IUs/ml HIV 1&2 Ab/P24 Ag 4thGn Human Metapneumovir PCR Influenza Type A (PCR) Influenza Type B (PCR) M. pneumoniae (PCR) Parainfluenza 1 (PCR) Parainfluenza 2 (PCR) Parainfluenza 3 (PCR) Parainfluenza 4 (PCR) RSV (RT-PCR) RSV (PCR) Entero/Rhino (PCR) Staphylococcus sp PCR mecA/C-Methicil Resis Gene Staph epidermidis (PCR) Bld Cult ID Panel PCR 05/14/25 05/14/25 05/14/25 04:44 06:09 07:18 WBC 9.04 RBC 4.92 Hgb 11.5 L Hct 36.3 L MCV 73.8 L MCH 23.4 L MCHC 31.7 L RDW Std Deviation 50.1 H RDW Coeff of Alex 19.8 H Plt Count 276 MPV 10.4 Immature Gran % (Auto) 0.6 Neut % (Auto) 83.5 Lymph % (Auto) 5.8 [place] % (Auto) 9.2 Eos % (Auto) 0.3 Baso % (Auto) 0.6 Neut # (Auto) 7.56 H Lymph # (Auto) 0.52 L [place] # (Auto) 0.83 H Eos # (Auto) 0.03 Baso # (Auto) 0.05 Immature Gran # (Auto) 0.05 Absolute Nucleated RBC Nucleated RBC % (auto) Toxic Vacuolation Polychromasia Anisocytosis Ovalocytes PT INR APTT PTT Ratio Heparin Anti-Xa, Unfract 0.39 Sodium 130 L Potassium 3.9 Chloride 102 Carbon Dioxide 19 L Anion Gap 9 BUN 16 Creatinine 0.91 Est Cr Clr Drug Dosing 95.1 eGFR 95.89 BUN/Creatinine Ratio 17.6 Glucose 145 H POC Glucose Estimat Average Glucose 134 Hemoglobin A1c 6.3 H Osmolality 283 Lactate Calcium 8.0 L Phosphorus 2.4 L Magnesium 1.8 Total Bilirubin 1.6 H 1.7 H Direct Bilirubin AST 307 H ALT 430 H Alkaline Phosphatase 78 Lactate Dehydrogenase 278 H Total Creatine Kinase Troponin I High Sens B-Natriuretic Peptide Total Protein 5.7 L 6.4 Albumin 3.2 L 3.6 Globulin 2.5 Albumin/Globulin Ratio 1.3 Triglycerides 62 Cholesterol 72 LDL Cholesterol, Calc 32 VLDL Cholesterol, Calc 12 HDL Cholesterol 28 Cholesterol/HDL Ratio 2.6 Lipase 43 Tumor Marker AFP Carcinoembryonic Ag CA 19-9 Antigen Procalcitonin TSH 2.440 Cortisol AM Sample 36.11 H Urine Color Urine Appearance Urine pH Ur Specific [place] Urine Protein Urine Glucose (UA) Urine Ketones Urine Blood Urine Nitrite Urine Bilirubin Urine Urobilinogen Ur Leukocyte Esterase Urine WBC (Auto) Urine RBC (Auto) U Hyaline Cast (Auto) U Epithel Cells (Auto) Urine Bacteria (Auto) Urine Osmolality Ur Random Creatinine Ur Random Sodium Ur Random Potassium Ur Random Chloride Urine Comment Fluid Neutrophils % Fluid Lymphocytes % Fluid Meso/Macro/[place] % Fluid Comment Pleural Fluid Source Pleural Color Pleural Appearance Pleural pH Pleural WBC (Auto) Pleural RBC (Auto) Pleural Total Protein Pleural LDH Pleural Glucose Nasal Screen MRSA (PCR) Digoxin Urine Opiates Screen Ur Methadone, Qual Urine Fentanyl Screen Urine Barbiturates Valproic Acid Ur Phencyclidine (PCP) U Amphetamin/Meth Scrn MDMA (Ecstasy) Screen U Benzodiazepines Scrn Ur Cocaine Metabolite U Marijuana (THC) Screen U Marijuana THC Carboxy Drug Screen Comment NASRIN Screen Adenovirus (PCR) B. pertussis DNA (PCR) B.parapertussis DNA PCR C. pneumoniae DNA (PCR) Coronavirus OC43 (PCR) Coronavirus HKU1 (PCR) Coronavirus 229E (PCR) SARS-CoV-2 (PCR) Coronavirus NL63 (PCR) CMV IgM Ab CMV IgG Ab/TORCH EBV Capsid Ag IgG Ab EBV Caps Ag IgG Sig Str EBV Capsid Ag IgM Ab EBV Caps Ag IgM Sig Str EBV Nuclear Antigen Ab EBV Nucl Ag IgG Sig Str EBV Interpretation Hepatitis A IgM Ab Hep Bs Antigen Hep B Core IgM Ab Hepatitis C Antibody HCV RNA (PCR) IUs/ml HCV RNA PCR log IUs/ml HIV 1&2 Ab/P24 Ag 4thGn Human Metapneumovir PCR Influenza Type A (PCR) Influenza Type B (PCR) M. pneumoniae (PCR) Parainfluenza 1 (PCR) Parainfluenza 2 (PCR) Parainfluenza 3 (PCR) Parainfluenza 4 (PCR) RSV (RT-PCR) RSV (PCR) Entero/Rhino (PCR) Staphylococcus sp PCR mecA/C-Methicil Resis Gene Staph epidermidis (PCR) Bld Cult ID Panel PCR 05/14/25 05/14/25 10:55 Unknown WBC RBC Hgb Hct MCV MCH MCHC RDW Std Deviation RDW Coeff of Alex Plt Count MPV Immature Gran % (Auto) Neut % (Auto) Lymph % (Auto) [place] % (Auto) Eos % (Auto) Baso % (Auto) Neut # (Auto) Lymph # (Auto) [place] # (Auto) Eos # (Auto) Baso # (Auto) Immature Gran # (Auto) Absolute Nucleated RBC Nucleated RBC % (auto) Toxic Vacuolation Polychromasia Anisocytosis Ovalocytes PT INR APTT PTT Ratio Heparin Anti-Xa, Unfract Sodium Potassium Chloride Carbon Dioxide Anion Gap BUN Creatinine Est Cr Clr Drug Dosing eGFR BUN/Creatinine Ratio Glucose POC Glucose Estimat Average Glucose Hemoglobin A1c Osmolality Lactate Calcium Phosphorus Magnesium Total Bilirubin Direct Bilirubin AST ALT Alkaline Phosphatase Lactate Dehydrogenase Total Creatine Kinase Troponin I High Sens B-Natriuretic Peptide Total Protein Albumin Globulin Albumin/Globulin Ratio Triglycerides Cholesterol LDL Cholesterol, Calc VLDL Cholesterol, Calc HDL Cholesterol Cholesterol/HDL Ratio Lipase Tumor Marker AFP Carcinoembryonic Ag CA 19-9 Antigen Procalcitonin TSH Cortisol AM Sample Urine Color Urine Appearance Urine pH Ur Specific [place] Urine Protein Urine Glucose (UA) Urine Ketones Urine Blood Urine Nitrite Urine Bilirubin Urine Urobilinogen Ur Leukocyte Esterase Urine WBC (Auto) Urine RBC (Auto) U Hyaline Cast (Auto) U Epithel Cells (Auto) Urine Bacteria (Auto) Urine Osmolality 648 Ur Random Creatinine 68.5 Ur Random Sodium < 10 Ur Random Potassium 52.1 Ur Random Chloride 16 Urine Comment Fluid Neutrophils % 33 Fluid Lymphocytes % 44 Fluid [place]ro/[place] % 23 Fluid Comment Pleural Fluid Source Right Lung Pleural Color Yellow Pleural Appearance Clear Pleural pH 7.48 H Pleural WBC (Auto) 287 Pleural RBC (Auto) < 2000 Pleural Total Protein < 3.0 Pleural LDH 78 Pleural Glucose 150 Nasal Screen MRSA (PCR) Digoxin Urine Opiates Screen Ur Methadone, Qual Urine Fentanyl Screen Urine Barbiturates Valproic Acid Ur Phencyclidine (PCP) U Amphetamin/Meth Scrn MDMA (Ecstasy) Screen U Benzodiazepines Scrn Ur Cocaine Metabolite U Marijuana (THC) Screen U Marijuana THC Carboxy Drug Screen Comment NASRIN Screen Adenovirus (PCR) B. pertussis DNA (PCR) B.parapertussis DNA PCR C. pneumoniae DNA (PCR) Coronavirus OC43 (PCR) Coronavirus HKU1 (PCR) Coronavirus 229E (PCR) SARS-CoV-2 (PCR) Coronavirus NL63 (PCR) CMV IgM Ab CMV IgG Ab/TORCH EBV Capsid Ag IgG Ab EBV Caps Ag IgG Sig Str EBV Capsid Ag IgM Ab EBV Caps Ag IgM Sig Str EBV Nuclear Antigen Ab EBV Nucl Ag IgG Sig Str EBV Interpretation Hepatitis A IgM Ab Hep Bs Antigen Hep B Core IgM Ab Hepatitis C Antibody HCV RNA (PCR) IUs/ml HCV RNA PCR log IUs/ml HIV 1&2 Ab/P24 Ag 4thGn Human Metapneumovir PCR Influenza Type A (PCR) Influenza Type B (PCR) M. pneumoniae (PCR) Parainfluenza 1 (PCR) Parainfluenza 2 (PCR) Parainfluenza 3 (PCR) Parainfluenza 4 (PCR) RSV (RT-PCR) RSV (PCR) Entero/Rhino (PCR) Staphylococcus sp PCR mecA/C-Methicil Resis Gene Staph epidermidis (PCR) Bld Cult ID Panel PCR Diagnostic Findings EKG 05/14/2025 Atrial fibrillation with rapid response rate 109 bpm with occasional ventricular ectopic beats poor R wave progression septal leads Echocardiogram 05/14/2025 Normal left decreased size with mild left hypertrophy Severe global hypokinesis EF 20-25% with biatrial enlargement Moderate to severe mitral tricuspid sufficiency Elevated right ventricular systolic pressure 40-50 mmHg PG Care Time/CCT Total # of Minutes Spent Total Time Spent with Patient: Total time spent is greater than 50% in coordination of care (as documented) at patient's floor/unit and/or counseling patient: Coding Level of Care Code 59937 IN/OBS CONSULT LVL 5,80M Diagnoses Heart failure with reduced ejection fraction I50.20 Severe left ventricular systolic dysfunction (LVSD) I51.89 Atrial fibrillation with rapid ventricular response I48.91 Transaminitis R74.01
--- NOTE | 2025-05-14 14:29 | Ultrasound Report ---
ULTRASOUND-GUIDED RIGHT THORACENTESIS CLINICAL HISTORY: Small right pleural effusion; right lung mass PROCEDURE: Procedure and risks were explained. Informed consent was obtained. A final timeout was com pleted. The right posterior thorax was prepped and draped in sterile fashion. 1% lidocaine was utiliz ed for skin anesthesia. Utilizing ultrasound guidance, a 5 [place] safety centesis catheter was advanced into the right pleura l effusion. Ultrasound images were obtained. A total of 50 mL of pleural fluid was removed and sent t o the lab. The catheter was removed and Band-Aid applied. The patient tolerated the procedure well. A chest x-ray will be obtained and vital signs will be monitored postprocedure. IMPRESSION: Ultrasound-guided right thoracentesis as above. Performed, dictated, and signed by Kaushal Flaherty PA-C; to be co-signed by Dr. Last Pacheco. Electronically signed by: Last Pacheco M.D. 05/14/2025 2:50 PM
[2025-05-14 14:37] LABS: Appearance Pleural Fluid Clear; Color Pleural Fluid Yellow; RBC Pleural Fluid Auto < 2000 /uL; Source Pleural Fluid Right Lung; WBC Pleural Fluid Auto 287 /uL
--- NOTE | 2025-05-14 14:42 | XRay Report ---
XR chest 1V not portable CLINICAL HISTORY: s/p rt thora COMPARISON STUDY: Chest CT April 25, 2025. Chest radiograph May 13, 2025. FINDINGS: There is no pneumothorax following right thoracentesis. Cardiomegaly is again noted. There is a trace left pleural effusion. Pulmonary vascular congestion is again noted. IMPRESSION: No pneumothorax following right thoracentesis. ACT 112: Negative or not required by law. Electronically signed by: Last Pacheco M.D. 05/14/2025 2:41 PM
[2025-05-14 14:57] LABS: A calco-baum cmplx NotReported Not Detected (NotDetected); Bact fragilis Not Reported Not Detected (NotDetected); Blood Culture Id Panel See PCR Comment (NotDetected); C auris Not Reported Not Detected (NotDetected); Calbicans Not Reported Not Detected (NotDetected); Candida glabrata Not Reported Not Detected (NotDetected); Candida krusei Not Reported Not Detected (NotDetected); Cneoformans/gatti Not Reported Not Detected (NotDetected); Cparapsilosis Not Reported Not Detected (NotDetected); Ctropicalis Not Reported Not Detected (NotDetected); E cloacae compx Not Reported Not Detected (NotDetected); Efaecalis Not Reported Not Detected (NotDetected); Efaecium Not Reported Not Detected (NotDetected); Enterobacterales Not Reported Not Detected (NotDetected); Escherichia coli Not Reported Not Detected (NotDetected); H influenzae Not Reported Not Detected (NotDetected); K aerogenes Not Reported Not Detected (NotDetected); Koxytoca Not Reported Not Detected (NotDetected); Kpneumoniae grp Not Reported Not Detected (NotDetected); Lmonocyt Not Reported Not Detected (NotDetected); N meningitidis Not Reported Not Detected (NotDetected); P aeruginosa Not Reported Not Detected (NotDetected); Proteus spp Not Reported Not Detected (NotDetected); Salmonella spp Not Reported Not Detected (NotDetected); Staph lugdunensis Not Reported Not Detected (NotDetected); Staph spp. Not Reported DETECTED (NotDetected); Staphaureus Not Reported Not Detected (NotDetected); Staphepi Not Reported DETECTED (NotDetected); Stenmaltophilia Not Reported Not Detected (NotDetected); Strep agal(GrpB) Not Reported Not Detected (NotDetected); Strep pneum Not Reported Not Detected (NotDetected); Strep pyog (GrpA) Not Reported Not Detected (NotDetected); Strep spp Not Reported Not Detected (NotDetected); mecAC Resistant Gene Not Detected (NotDetected)
[2025-05-14 15:07] LABS: Lymphocytes, Fluid 44 %; Mono,Macrophage,Mesothelial 23 %; Neutrophils, Fluid 33 %
[2025-05-14 15:14] LABS: Staphylococcus epidermidis DETECTED (NotDetected); Staphylococcus spp. DETECTED (NotDetected)
[2025-05-14] MEDS: ATORVASTATIN 10 MG TAB PO SCH (16:16)
[2025-05-14] MEDS: METOPROLOL SUCC 50MG EXT REL TAB PO SCH (16:17)
[2025-05-14] MEDS: ASPIRIN 81 MG ECTAB PO SCH (16:17)
[2025-05-14] MEDS: FUROSEMIDE INJ 20 MG/2 ML VIAL IV ONE (17:22)
[2025-05-14] MEDS: APIXABAN 5 MG TABLET PO SCH (20:14)
[2025-05-14] MEDS: METOPROLOL SUCC 25MG EXT REL TAB PO SCH (20:14)
[2025-05-14] MEDS: VALSARTAN/SACUBITRIL 26/24MG TAB PO SCH (20:14)
--- NOTE | 2025-05-15 06:07 | Electrocardiogram Report ---
Test Reason : Blood Pressure : */* mmHG Vent. Rate : 109 BPM Atrial Rate : * BPM P-R Int : * ms QRS Dur : 98 ms QT Int : 310 ms P-R-T Axes : * 140 239 degrees QTcB Int : 417 ms Atrial fibrillation with rapid ventricular response with premature ventricular or aberrantly conducte d complexes Right axis deviation Possible Septal infarct , age undetermined Nonspecific T wave abnormality Abnormal ECG When compared with ECG of 13-May-2025 15:32, No significant change was found Confirmed by Junior Valle ([id number]) on 05/15/2025 6:07:15 AM Referred By: REFERRED SELF Confirmed By: Junior Valle
[2025-05-15] MEDS: FUROSEMIDE INJ 20 MG/2 ML VIAL IV ONE (07:36)
--- NOTE | 2025-05-15 08:31 | Pulmonology Progress Note ---
Date of Service May 15, 2025 Assessment & Plan (1) (HFpEF) heart failure with preserved ejection fraction: (2) Chronic steroid use: (3) Lung mass: (4) Pleural effusion, bilateral: (5) Rheumatoid arthritis: (6) COPD (chronic obstructive pulmonary disease): Plan 2D echo 05/14/2025: EF 25 to 25%, RVSP 40-50 mmHg, moderate to severe MR, moderate to severe TR CT chest 04/25/2025 personally reviewed: Centrilobular emphysema appreciated bilaterally Multiple pulm nodules appreciated bilaterally with right lower lobe 3 cm pulmonary mass peripheral Small right-sided pleural effusion Mediastinal lymphadenopathy especially subcarinal --COPD with emphysema and chronic bronchitis Not bronchospastic On Trelegy 100 --Multiple pulmonary nodules with pulmonary mass In a patient with significant smoking history and 25 pound weight loss unintentional Possibility of malignancy is high Recommend PET/CT as an outpatient --Bilateral pleural effusions R>L Likely from new onset CHF Cannot rule out malignancy related especially given the pulmonary mass in the right lower side S/p right-sided thoracentesis, only 50 mL of fluid was removed, transudative, 44% lymphocytes Pleural fluid: LDH 78, protein <3 -- Rheumatoid arthritis On leflunomide, sulfasalazine and prednisone 10 mg on a daily basis Plan: In/out: +2.5 L, 1450 urine output Recommend strict output measurement. Patient will benefit from diuretics Follow-up cytology from pleural fluid Continue with diuretics as tolerated Can consider BiPAP nightly and as needed shortness of breath for CHF Needs outpatient pulmonary follow-up, recommend PET/CT as an outpatient Recommend polysomnography as an outpatient Continue with Trelegy 100 on discharge Case discussed with primary team as well as RN All questions inquiries of patient, patient's partner in the room were answered in depth No further recommendation from pulmonary perspective, will sign off Please call directly with any questions I spent more than 50 minutes looking in the chart, images, discussing the plan of care with the patient, RN as well as primary team Please note the above document was generated using voice recognition software. It may contain grammatical, syntax or spelling errors.Any formal questions or concerns about the content, text or information contained within the body of this dictation should be directly addressed to the provider for clarification. Admission and Anticipated Discharge Date Admission Date: May 13, 2025 Subjective Patient seen and examined at bedside. No acute distress, no adverse events overnight Patient's partner as well as son was in the room at the time of examination Overall he says he is feeling better Periodic cough with clear phlegm. Denies any chest congestion No nausea vomiting Has been afebrile Review of Systems 2 Review of Systems: All systems reviewed & are unremarkable except as noted in Subjective Physical Exam 2 Physical Exam: Constitutional: No acute distress HEENT: EOMI, PERRLA Respiratory system: Decreased air entry bilaterally, more decreased on the right side, no wheeze, rhonchi, positive crackles bilaterally CVS: S1-S2 positive, no murmurs or gallops Abdomen: Soft, nontender, nondistended, positive bowel sounds x4 Extremities: +2 pulses bilaterally radialis/ dorsalis pedis, no cyanosis, no edema Neuro: Awake alert oriented x3 Psych: Normal mood and affect G/U: No [place] Skin: no rashes, warm and dry Lymphatic: no cervical or axillary lymphadenopathy Results & Data Results & Data Vital Signs (Past 12 Hours) Vital Signs Temp Pulse Pulse Resp BP Pulse Ox O2 Del Method 05/15/25 07:33 36.6 C 89 20 102/79 97 Room Air 05/15/25 07:24 87 05/15/25 02:33 36.9 C 79 18 96/69 L 88 L Room Air 05/14/25 22:43 36.7 C 77 18 100/87 95 Room Air 05/14/25 22:12 97 H Laboratory Results 05/14/25 04:44 05/14/25 04:44 PG Care Time/CCT Total # of Minutes Spent Total Time Spent with Patient: Total time spent is greater than 50% in coordination of care (as documented) at patient's floor/unit and/or counseling patient: Coding Level of Care Code 15009 SUB INP/OBS CARE 3/50MIN Diagnoses (HFpEF) heart failure with preserved ejection fraction I50.30 Chronic steroid use Lung mass R91.8 Pleural effusion, bilateral J90 Rheumatoid arthritis M06.9 COPD (chronic obstructive pulmonary disease) J44.9
[2025-05-15] MEDS: CHOLECALCIFEROL 10 MCG (400 UNITS) TAB PO SCH (08:35)
[2025-05-15 08:51] LABS: Hematocrit (blood only) 38.9 % (42.0-52.0); Hemoglobin 12.5 g/dL (14.0-18.0); Mean Corpuscular Hemoglobin 24.0 pg (25.0-34.0); Mean Corpuscular Volume 74.7 fL (80.0-100.0); Platelet Count 269 K/uL (130-400); RDW Standard Deviation 52.1 fL (36.4-46.3); Red Blood Count 5.21 M/uL (4.70-6.10); White Blood Count 12.01 K/ul (4.8-10.8)
[2025-05-15] MEDS ORDERED: DIGOXIN 0.125 MG TAB PO SCH (09:00)
[2025-05-15 09:09] LABS: Anion Gap 10.0 (3-11); Blood Urea Nitrogen 22.0 mg/dl (6-23); Calcium 8.9 mg/dl (8.6-10.3); Carbon Dioxide 21.0 mmol/L (21-32); Chloride 102.0 mmol/L (98-107); Creatinine Clr Calc Pharmacy 84.3 ml/min; Glucose 177.0 mg/dl (70-99(Fasting)); Potassium 4.3 mmol/L (3.5-5.1); Sodium 133.0 mmol/L (136-145)
[2025-05-15 09:12] LABS: ANTI-Xa, UFH(UnfractionatedHep 0.44 IU/ml (0.3-0.7)
[2025-05-15 09:13] LABS: Anisocytosis Present; Immature Granulocytes # (auto) 0.08 K/uL (0.01-0.20); Immature Granulocytes % (auto) 0.7 %; Ovalocytes 1+; Polychromasia 1+
--- NOTE | 2025-05-15 10:28 | Gastroenterology Progress Note ---
Date of Service May 15, 2025 Assessment & Plan (1) Transaminitis: Plan: Patient feeling well from a GI standpoint. No LFTs drawn this morning. - check LFTs. - will await pending hepatitis labs and autoimmune labs. Admission and Anticipated Discharge Date Admission Date: May 13, 2025 Supervising Physician Co-Signing Physician Notes Hepatic cirrhosis. Splenic infarct. Liver enzymes elevated but improving. Patient has evidence of congestive heart failure with significant tricuspid regurgitation. Increased liver enzymes likely related to this. Some congestive component. Patient has positive hepatitis C antibody with past history. Hep C RNA pending though he denies any risk factors for reinfection. Recommend this point continue management of his cardiac issues. If his liver enzymes do not continue to improve reconsult GI as needed Subjective Patient feels well from a GI standpoint. he denies nausea, vomtiing, abdominal pain, acid reflux, changes in bowels. no LFTs today. 05/15/25 wbc 12.01, hgb 12.5, hct 38.9, plts 269, Na 133, K 4.3, BUN 22, Cr 1.05. Review of Systems Review of Systems: All systems reviewed & are unremarkable except as noted in HPI & below Physical Exam Constitutional: WD/WN, vitals as above Respiratory: normal respiratory effort, lungs clear to auscultation Cardiovascular: Rate/Rhythm: regular rate and regular rhythm Gastrointestinal (Abdomen): normal bowel sounds, soft, nontender, no hepatosplenomegaly Psychiatric: Orientation: alert and oriented x 3 Affect: euthymic affect Results & Data Results & Data Vital Signs (Past 12 Hours) Vital Signs Temp Pulse Pulse Resp BP Pulse Ox O2 Del Method 05/15/25 07:33 97.9 F 89 20 102/79 97 Room Air 05/15/25 07:24 87 05/15/25 02:33 98.4 F 79 18 96/69 L 88 L Room Air 05/14/25 22:43 98.1 F 77 18 100/87 95 Room Air PG Care Time/CCT Total # of Minutes Spent Total Time Spent with Patient: Total time spent is greater than 50% in coordination of care (as documented) at patient's floor/unit and/or counseling patient: Coding Level of Care Code 15828 SUB INP/OBS CARE 06/21MIN Diagnoses Transaminitis R74.01
--- NOTE | 2025-05-15 10:45 | Hospitalist Progress Note ---
Date of Service May 15, 2025 Assessment & Plan (1) Transaminitis: (2) Nausea & vomiting: (3) Atrial fibrillation with rapid ventricular response: (4) Hypotension: (5) Splenic infarct: (6) Chronic heart failure with preserved ejection fraction (HFpEF): (7) ASCVD (arteriosclerotic cardiovascular disease): (8) COPD (chronic obstructive pulmonary disease): (9) PAD (peripheral artery disease): (10) Rheumatoid arthritis: Plan: Patient with past medical history of rheumatoid arthritis on chronic steroid, atrial fibrillation on Eliquis, COPD, presented to the hospital with nausea and vomiting for several days. Reports history of noncompliance with the medication. He has not been able to intake his home medication. Patient was admitted to medical floor; was transferred to ICU for persistent hypotension despite fluid resuscitation Transaminitis Possible acute adrenal insufficiency Possible cannabinoid induced hyperemesis Possible acute gastroenteritis Possible sepsis POA-ruled out presented to the hospital with nausea and vomiting for several days WBC elevated to 11,000 on admission Lactate elevated to 2.4 and up trended with eventual downtrend CXR: Cardiomegaly with evidence of congestive failure. Mild bilateral airspace opacities likely representing mild pulmonary edema. No large pleural effusion is seen. CT Abd/pelvis: New splenic infarct. Hepatic cirrhosis with minimal amount of intra-abdominal ascites improved since prior exam. 3 cm pulmonary nodule right lower lobe. Findings are concerning for neoplasm but stable since prior exam. Gallbladder ultrasound shows hepatomegaly AST/ALT downtrending Continue on stress dose of steroid for now. Will transition over to prednisone 10 mg once a day tomorrow. Suspect that patient presentation was likely secondary to acute adrenal insufficiency as he was unable to take his prednisone. Will discontinue antibiotics after blood cultures are negative for 48 hours. Acute on chronic systolic heart failure Chest x-ray from May 14 reviewed; consistent with pulmonary edema Echocardiogram shows EF of 20 to 25% with global hypokinesis of left ventricle. RV systolic pressure elevated to 40 to 50 mmHg. Restarted back on Entresto. Continue on metoprolol Continue IV diuresis with IV Lasix twice a day AF with RVR Splenic infarct History of A-fib on Eliquis but not taking it. CT abdomen/pelvis showing a splenic infarct Restarted back on metoprolol and Eliquis Patient reports that he is not compliant with his medication. I discussed that he is at high risks of having strokes,infracts that could lead to significant physical disability, . He verbalized understanding of the risks associated of not being compliant with medication. Pulmonary mass I discussed the finding of the pulmonary mass with the patient on May 14, 2025; I discussed that he needs to follow-up with his PCP and obtain pulmonology referral as outpatient for further workup with PET/CT. he verbalized understanding. Patient had undergone thoracentesis of right sided pleural effusion on May 14, 2025. Cytology pending #Rheumatoid arthritis: On home leflunomide, sulfasalazine and prednisone #CAD #PAD Nonobstructive CAD per cardiac catheterization 04/20/2021 # Mood disorder: On home divalproex #COPD No signs of acute exacerbation at this time On home Trelegy DVT prophylaxis eliquis Time spent evaluating patient, direct bedside care, chart review, placing orders, interpretation of diagnostic studies, discussion with consultants, patient, and family members, as well as other required patient management activities is 50 minutes Please note the above document was generated using voice recognition software. It may contain grammatical, syntax or spelling errors. Any formal questions or concerns about the content, text or information contained within the body of this dictation should be directly addressed to the provider for clarification Admission and Anticipated Discharge Date Admission Date: May 13, 2025 Subjective Patient seen and examined at bedside. He is lying in the bed comfortably; not in distress. Reports that he has been feeling much better compared to yesterday. No significant events overnight. Blood pressure continues to improve Review of Systems Review of Systems: All systems reviewed & are unremarkable except as noted in Subjective Physical Exam Physical Exam: General: no distress at rest in bed, ENT: normal inspection external ears, nose, mucous membranes dry Neck: supple, trachea midline Lungs: clear, no respiratory distress, no wheezing/rhonchi/rales CV: irregularly irregular,, no pretibial edema Abd: normal BS, soft, negative Sheppard's sign on exam Ext: no cyanosis, no calf tenderness Neuro: A&O x 3, no focal deficits noted, normal affect Skin: warm, dry Results & Data Results & Data Vital Signs (Past 12 Hours) Vital Signs Temp Pulse Pulse Resp BP Pulse Ox O2 Del Method 05/15/25 07:33 36.6 C 89 20 102/79 97 Room Air 05/15/25 07:24 87 05/15/25 02:33 36.9 C 79 18 96/69 L 88 L Room Air 05/14/25 22:43 36.7 C 77 18 100/87 95 Room Air
[2025-05-15 11:43] LABS: Alanine Aminotransferase 361.0 U/L (7-52); Albumin Level 3.9 gm/dl (3.4-5.0); Alkaline Phosphatase 99.0 U/L (34-104); Bilirubin,Total 0.9 mg/dl (0.2-1.0); Total Protein 6.9 gm/dl (6.0-8.3)
[2025-05-15] MEDS: METOPROLOL SUCC 25MG EXT REL TAB PO ONE (12:24)
--- NOTE | 2025-05-15 12:41 | Cardiology Progress Note ---
Date of Service May 15, 2025 Assessment & Plan (1) Heart failure with reduced ejection fraction: Plan: Decline in overall LV systolic function since last assessed, EF 20% (2) Severe left ventricular systolic dysfunction (LVSD): (3) Atrial fibrillation with rapid ventricular response: (4) Transaminitis: Plan Patient is a complex 60-year-old male with known history of prior nonischemic cardiomyopathy possibly tachycardia mediated with return to near normal LV function with medical therapies presents now with signs and symptoms of acute decline with elevated transaminases question acute process versus hepatic congestion secondary to severely reduced LV systolic function. Patient admits to lapse in cardiac medications including anticoagulants Currently improving under critical care attention Recommendations: 1. Atrial fibrillation with rapid response agree with initiation of digoxin will resume metoprolol succinate at reduced dose until clinical course defined beginning with 25 mg twice per day first tonight 2. Severe LV dysfunction, global with moderately severe mitral tricuspid insufficiency. Given history suspect tachycardia mediatedy but underlying processes may need to be redefined Plan to reinstitute Entresto at reduced dose 3. Elevated transaminases: Appreciate GI input 05/15/2025 Slowly improving. Resuming cardiac medications for diffuse cardiomyopathy and severely reduced ejection fraction. Has tolerated reintroduction. Received furosemide 20 mg IV this morning for volume manage. Transaminases improving Plan 1. Acute on chronic heart failure with reduced systolic function. Lapse in cardiac medications Increase metoprolol succinate back to prior 50 mg twice per day Continue reduced dose Entresto Restart spironolactone 12.5 mg/day CHF instructions 2. Transaminitis with improved laboratory testing today Admission and Anticipated Discharge Date Admission Date: May 13, 2025 Subjective Patient was seen and personally examined, chart, medications, telemetry reviewed Slowly improving. Tolerating reinstitution of cardiac medications at lower dosing. No dizziness or lightheadedness no syncope or near syncope no tachyarrhythmias. Review of Systems Review of Systems: All systems reviewed & are unremarkable except as noted in Subjective Physical Exam Constitutional: + ill appearing; no acute distress Eyes: PERRL, conjunctivae normal, anicteric sclerae Neck: trachea midline, no thyromegaly + thick neck Respiratory: Auscultation: + diminished lung sounds; no rhonchi Cardiovascular: Rate/Rhythm: + tachycardic and + irregularly irregular Heart Sounds: + murmur (Grade 1/6 holosystolic murmur at apex no diastolic) Extremities: no edema Gastrointestinal (Abdomen): Inspection/Auscultation: abdomen not distended Results & Data Vital Signs (Past 12 Hours) Vital Signs Temp Pulse Pulse Resp BP Pulse Ox O2 Del Method 05/15/25 10:53 36.7 C 89 88 H 109/75 96 Room Air 05/15/25 07:33 36.6 C 89 20 102/79 97 Room Air 05/15/25 07:24 87 05/15/25 02:33 36.9 C 79 18 96/69 L 88 L Room Air Laboratory Results Laboratory Results - last 24 hr 05/13/25 05/14/25 05/14/25 16:49 10:55 Unknown WBC RBC Hgb Hct MCV MCH MCHC RDW Std Deviation RDW Coeff of Alex Plt Count MPV Immature Gran % (Auto) Neut % (Auto) Lymph % (Auto) [place] % (Auto) Eos % (Auto) Baso % (Auto) Neut # (Auto) Lymph # (Auto) [place] # (Auto) Eos # (Auto) Baso # (Auto) Immature Gran # (Auto) Polychromasia Anisocytosis Ovalocytes Echinocytes Heparin Anti-Xa, Unfract Sodium Potassium Chloride Carbon Dioxide Anion Gap BUN Creatinine Est Cr Clr Drug Dosing eGFR BUN/Creatinine Ratio Glucose Calcium Total Bilirubin Direct Bilirubin AST ALT Alkaline Phosphatase Total Protein Albumin Urine Osmolality 648 Ur Random Creatinine 68.5 Ur Random Sodium < 10 Ur Random Chloride 16 Fluid Neutrophils % 33 Fluid Lymphocytes % 44 Fluid Meso/Macro/[place] % 23 Fluid Comment Pleural Fluid Source Right Lung Pleural Color Yellow Pleural Appearance Clear Pleural pH 7.48 H Pleural WBC (Auto) 287 Pleural RBC (Auto) < 2000 Pleural Total Protein < 3.0 Pleural LDH 78 Pleural Glucose 150 Staphylococcus sp PCR DETECTED A mecA/C-Methicil Resis Gene Not Detected Staph epidermidis (PCR) DETECTED A Bld Cult ID Panel PCR See PCR Comment 05/15/25 08:35 WBC 12.01 H RBC 5.21 Hgb 12.5 L Hct 38.9 L MCV 74.7 L MCH 24.0 L MCHC 32.1 RDW Std Deviation 52.1 H RDW Coeff of Alex 20.1 H Plt Count 269 MPV 10.9 Immature Gran % (Auto) 0.7 Neut % (Auto) 92.4 Lymph % (Auto) 2.6 [place] % (Auto) 4.2 Eos % (Auto) 0.0 Baso % (Auto) 0.1 Neut # (Auto) 11.10 H Lymph # (Auto) 0.31 L [place] # (Auto) 0.51 Eos # (Auto) 0.00 Baso # (Auto) 0.01 Immature Gran # (Auto) 0.08 Polychromasia 1+ Anisocytosis Present Ovalocytes 1+ Echinocytes 1+ Heparin Anti-Xa, Unfract 0.44 Sodium 133 L Potassium 4.3 Chloride 102 Carbon Dioxide 21 Anion Gap 10 BUN 22 Creatinine 1.05 Est Cr Clr Drug Dosing 84.3 eGFR 80.76 BUN/Creatinine Ratio 21.0 H Glucose 177 H Calcium 8.9 Total Bilirubin 0.9 D Direct Bilirubin 0.4 H AST 156 H ALT 361 H Alkaline Phosphatase 99 Total Protein 6.9 Albumin 3.9 Urine Osmolality Ur Random Creatinine Ur Random Sodium Ur Random Chloride Fluid Neutrophils % Fluid Lymphocytes % Fluid Meso/Macro/[place] % Fluid Comment Pleural Fluid Source Pleural Color Pleural Appearance Pleural pH Pleural WBC (Auto) Pleural RBC (Auto) Pleural Total Protein Pleural LDH Pleural Glucose Staphylococcus sp PCR mecA/C-Methicil Resis Gene Staph epidermidis (PCR) Bld Cult ID Panel PCR PG Care Time/CCT Total # of Minutes Spent Total Time Spent with Patient: Total time spent is greater than 50% in coordination of care (as documented) at patient's floor/unit and/or counseling patient: Coding Level of Care Code 29718 SUB INP/OBS CARE 3/50MIN Diagnoses Heart failure with reduced ejection fraction I50.20 Severe left ventricular systolic dysfunction (LVSD) I51.89 Atrial fibrillation with rapid ventricular response I48.91 Transaminitis R74.01
[2025-05-15] MEDS: FUROSEMIDE INJ 20 MG/2 ML VIAL IV SCH (13:13)
[2025-05-15] MEDS: SPIRONOLACTONE 12.5 MG TAB PO SCH (13:19)
[2025-05-15] MEDS: METOPROLOL SUCC 50MG EXT REL TAB PO SCH (20:04)
[2025-05-16 06:18] LABS: Hematocrit (blood only) 35.3 % (42.0-52.0); Hemoglobin 11.5 g/dL (14.0-18.0); Immature Granulocytes # (auto) 0.04 K/uL (0.01-0.20); Immature Granulocytes % (auto) 0.4 %; Mean Corpuscular Hemoglobin 24.6 pg (25.0-34.0); Mean Corpuscular Volume 75.4 fL (80.0-100.0); Platelet Count 274 K/uL (130-400); RDW Standard Deviation 51.8 fL (36.4-46.3); Red Blood Count 4.68 M/uL (4.70-6.10); White Blood Count 10.61 K/ul (4.8-10.8)
[2025-05-16 06:39] LABS: Anion Gap 7.0 (3-11); Blood Urea Nitrogen 25.0 mg/dl (6-23); Calcium 9.1 mg/dl (8.6-10.3); Carbon Dioxide 26.0 mmol/L (21-32); Chloride 101.0 mmol/L (98-107); Creatinine Clr Calc Pharmacy 91.3 ml/min; Glucose 140.0 mg/dl (70-99(Fasting)); Potassium 4.5 mmol/L (3.5-5.1); Sodium 134.0 mmol/L (136-145)
[2025-05-16] MEDS: INFLUENZA VACC TS2025-26(6m+)/PF (IIV3) 0.5mL Syr IM ONE (07:18)
--- NOTE | 2025-05-16 11:06 | Hospitalist Progress Note ---
Date of Service May 16, 2025 Assessment & Plan (1) Transaminitis: (2) Nausea & vomiting: (3) Atrial fibrillation with rapid ventricular response: (4) Hypotension: (5) Splenic infarct: (6) Chronic heart failure with preserved ejection fraction (HFpEF): (7) ASCVD (arteriosclerotic cardiovascular disease): (8) COPD (chronic obstructive pulmonary disease): (9) PAD (peripheral artery disease): (10) Rheumatoid arthritis: Plan: Patient with past medical history of rheumatoid arthritis on chronic steroid, atrial fibrillation on Eliquis, COPD, presented to the hospital with nausea and vomiting for several days. Reports history of noncompliance with the medication. He has not been able to intake his home medication. Patient was admitted to medical floor; was transferred to ICU for persistent hypotension despite fluid resuscitation Transaminitis Possible acute adrenal insufficiency Possible cannabinoid induced hyperemesis Possible acute gastroenteritis Possible sepsis POA-ruled out presented to the hospital with nausea and vomiting for several days WBC elevated to 11,000 on admission Lactate elevated to 2.4 and up trended with eventual downtrend CXR: Cardiomegaly with evidence of congestive failure. Mild bilateral airspace opacities likely representing mild pulmonary edema. No large pleural effusion is seen. CT Abd/pelvis: New splenic infarct. Hepatic cirrhosis with minimal amount of intra-abdominal ascites improved since prior exam. 3 cm pulmonary nodule right lower lobe. Findings are concerning for neoplasm but stable since prior exam. Gallbladder ultrasound shows hepatomegaly AST/ALT downtrending Discussed with patient; he reports that he has been off steroid after years of use suddenly in the last couple of months. 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 We discussed about restarting at 7.5 mg once a day for 1 month and then gradually decreasing it. Acute on chronic systolic heart failure Chest x-ray from May 14 reviewed; consistent with pulmonary edema Echocardiogram shows EF of 20 to 25% with global hypokinesis of left ventricle. RV systolic pressure elevated to 40 to 50 mmHg. Restarted back on Entresto. Continue on metoprolol Continue IV diuresis with IV Lasix twice a day AF with RVR Splenic infarct History of A-fib on Eliquis but not taking it. CT abdomen/pelvis showing a splenic infarct Restarted back on metoprolol and Eliquis Patient reports that he is not compliant with his medication. I discussed that he is at high risks of having strokes,infracts that could lead to significant physical disability, . He verbalized understanding of the risks associated of not being compliant with medication. Pulmonary mass I discussed the finding of the pulmonary mass with the patient on May 14, 2025; I discussed that he needs to follow-up with his PCP and obtain pulmonology referral as outpatient for further workup with PET/CT. he verbalized understanding. Reports that he has biopsy of the nodule done in the past; was diagnosed with RA nodule as per him. Patient had undergone thoracentesis of right sided pleural effusion on May 14, 2025. Cytology pending- follow up with PCP #Rheumatoid arthritis: On home leflunomide, sulfasalazine and prednisone #CAD #PAD Nonobstructive CAD per cardiac catheterization 04/20/2021 # Mood disorder: On home divalproex #COPD No signs of acute exacerbation at this time On home Trelegy DVT prophylaxis eliquis Time spent evaluating patient, direct bedside care, chart review, placing orders, interpretation of diagnostic studies, discussion with consultants, patient, and family members, as well as other required patient management activities is 50 minutes Please note the above document was generated using voice recognition software. It may contain grammatical, syntax or spelling errors. Any formal questions or concerns about the content, text or information contained within the body of this dictation should be directly addressed to the provider for clarification Admission and Anticipated Discharge Date Admission Date: May 13, 2025 Subjective Patient seen and examined at bedside. Comfortable; not in distress. Denies fever, chills, chest pain, shortness of breath, abdominal pain or urinary symptoms. No significant overnight events Review of Systems Review of Systems: All systems reviewed & are unremarkable except as noted in Subjective Physical Exam Physical Exam: General: no distress at rest in bed, ENT: normal inspection external ears, nose, mucous membranes dry Neck: supple, trachea midline Lungs: clear, no respiratory distress, no wheezing/rhonchi/rales CV: irregularly irregular,, no pretibial edema Abd: normal BS, soft, negative Sheppard's sign on exam Ext: no cyanosis, no calf tenderness Neuro: A&O x 3, no focal deficits noted, normal affect Skin: warm, dry Results & Data Results & Data Vital Signs (Past 12 Hours) Vital Signs Temp Pulse Pulse Resp BP BP Pulse Ox 12/20/25 10:49 36.4 C L 88 20 102/80 99 05/16/25 07:02 85 05/16/25 06:50 36.5 C 88 18 109/85 97 05/16/25 03:16 36.5 C 92 H 18 104/69 97 05/15/25 23:33 36.3 C L 96 H 18 105/70 94 O2 Del Method 05/16/25 10:49 Room Air 05/16/25 07:02 05/16/25 06:50 Room Air 05/16/25 03:16 Room Air 05/15/25 23:33 Room Air
[2025-05-16] MEDS: MAGNESIUM SULFATE / D5W 1 GM/100 ML BAG IV SCH (13:27)
[2025-05-16] MEDS: POTASSIUM CHLORIDE CRTAB 20 MEQ TABCR PO STA (14:00)
--- NOTE | 2025-05-16 15:17 | Cardiology Progress Note ---
Date of Service May 16, 2025 Assessment & Plan (1) Heart failure with reduced ejection fraction: Plan: Decline in overall LV systolic function since last assessed, EF 20% (2) Severe left ventricular systolic dysfunction (LVSD): (3) Atrial fibrillation with rapid ventricular response: (4) Transaminitis: Plan Patient is a complex 60-year-old male with known history of prior nonischemic cardiomyopathy possibly tachycardia mediated with return to near normal LV function with medical therapies presents now with signs and symptoms of acute decline with elevated transaminases question acute process versus hepatic congestion secondary to severely reduced LV systolic function. Patient admits to lapse in cardiac medications including anticoagulants Currently improving under critical care attention Recommendations: 1. Atrial fibrillation with rapid response agree with initiation of digoxin will resume metoprolol succinate at reduced dose until clinical course defined beginning with 25 mg twice per day first tonight 2. Severe LV dysfunction, global with moderately severe mitral tricuspid insufficiency. Given history suspect tachycardia mediatedy but underlying processes may need to be redefined Plan to reinstitute Entresto at reduced dose 3. Elevated transaminases: Appreciate GI input 05/15/2025 Slowly improving. Resuming cardiac medications for diffuse cardiomyopathy and severely reduced ejection fraction. Has tolerated reintroduction. Received furosemide 20 mg IV this morning for volume manage. Transaminases improving Plan 1. Acute on chronic heart failure with reduced systolic function. Lapse in cardiac medications Increase metoprolol succinate back to prior 50 mg twice per day Continue reduced dose Entresto Restart spironolactone 12.5 mg/day CHF instructions 2. Transaminitis with improved laboratory testing today 05/16/2025: Plan 1. Afib with RVR -Rates controlled -Continue Eliquis 5mg PO BID -Continue Toprol xl 50mg PO BID 2. Acute on chronic HFrEF -Continue Torpol xl, entresto and low dose spirononlactone 3. Transaminitis with improved lab studies. Case has been discussed with Dr. Torres. Further recommendations regarding plan of care as per her assessment. I spent a total of 30 minutes on the date of service in preparation, delivery, documentation of the care provided to the patient excluding any time spent in the performance of separately billed services. PATRICK Magallon [facility] Admission and Anticipated Discharge Date Admission Date: May 13, 2025 Supervising Physician Co-Signing Physician Notes I have reviewed the advanced practitioner's documentation on the date of service referenced in note, and I agree with, and take responsibility for the plan of care. I spent a total of [15] minutes coordinating, documenting, and providing care for this patient excluding time spent in the performance of separately billed services or time spent by another provider. Subjective 05/16/2025: Patient seen and examined in follow up today. Feeling well from a cardiac perspective. Offers no acute concerns. Labs, vitals, diagnostics, telemetry and documentation reviewed. Telemetry reviewed showing A-fib rates 80-90's. Review of Systems Review of Systems: All systems reviewed & are unremarkable except as noted in HPI & below Physical Exam Constitutional: well developed, well nourished and + overweight Neck: normal visual inspection and trachea midline Respiratory: normal respiratory effort, lungs clear to auscultation Cardiovascular: Rate/Rhythm: + irregularly irregular Heart Sounds: normal S1 and normal S2 Vessels: dorsalis pedis pulses present; no JVD Skin: no rashes, warm and dry Psychiatric: A+Ox3, euthymic affect Results & Data Vital Signs (Past 12 Hours) Vital Signs Temp Pulse Pulse Resp BP Pulse Ox O2 Del Method 05/16/25 10:49 36.4 C L 88 20 102/80 99 Room Air 05/16/25 07:02 85 05/16/25 06:50 36.5 C 88 18 109/85 97 Room Air 05/16/25 03:16 36.5 C 92 H 18 104/69 97 Room Air Laboratory Results CBC 05/16/25 Range/Units 05:40 WBC 10.61 (4.8-10.8) K/ul RBC 4.68 L (4.70-6.10) M/uL Hgb 11.5 L (14.0-18.0) g/dL Hct 35.3 L (42.0-52.0) % Plt Count 274 (130-400) K/uL Neut # (Auto) 9.41 H (1.40-6.50) K/uL Lymph # (Auto) 0.32 L (1.20-3.40) K/uL Petroleum # (Auto) 0.83 H (0.11-0.59) K/uL Eos # (Auto) 0.00 (0.00-0.50) K/uL Baso # (Auto) 0.01 (0.00-0.20) K/uL Comprehensive Metabolic Panel 05/16/25 Range/Units 05:40 Sodium 134 L (136-145) mmol/L Potassium 4.5 (3.5-5.1) mmol/L Chloride 101 (98-107) mmol/L Carbon Dioxide 26 (21-32) mmol/L BUN 25 H (6-23) mg/dl Creatinine 0.97 (0.6-1.4) mg/dl Glucose 140 H (70-99(Fasting)) mg/dl Calcium 9.1 (8.6-10.3) mg/dl Intake and Output 05/16/25 05/16/25 05/16/25 06:59 14:59 22:59 Intake Total 120 / 1230 888 / 888 Balance 120 / 279 888 / 888 Intake: Oral 120 / 1030 888 / 888 Other: # Unmeasured Voids 1 Weight 96.1 kg Weight Measurement Method Built in [facility] PG Care Time/CCT Total # of Minutes Spent Total Time Spent with Patient: Total time spent is greater than 50% in coordination of care (as documented) at patient's floor/unit and/or counseling patient: Coding Level of Care Code 57661 SUB INP/OBS CARE 3/50MIN Diagnoses Heart failure with reduced ejection fraction I50.20 Severe left ventricular systolic dysfunction (LVSD) I51.89 Atrial fibrillation with rapid ventricular response I48.91 Transaminitis R74.01 Time Spent (min) 30
[2025-05-17 07:21] VITALS: RESP 20
--- NOTE | 2025-05-17 10:35 | Discharge Summary ---
Date of Service May 17, 2025 Admission HPI Per Admitting Provider Patient is a 60 year old male with PMH rheumatoid arthritis, Raynaud's, persistent atrial fibrillation, on Eliquis, COPD, history cardiomyopathy in setting of a-fib RVR in 06/2022, Since with improved EF (55% in 12/2024), CAD, PAD, and other problems listed below presented to ER with c/o weakness and N/V x 2 weeks. Per inpatient chart review patient with recent [facility] admission 04/25/25-04/26/25 for acute on chronic HFpEF, a-fib RVR and his home medications were resumed. Reports past two weeks with nausea, vomiting after eating or taking pills. States few minutes after takes medication he vomits. States mid abdominal pain after vomiting. States past 2 weeks with weakness, lightheadedness. States just lying around as feels so ill. Denies any known fever or chills. Past couple of days had one episode of chest pain daily that occurred at rest and resolved in few minutes. Denies noted palpitations, SOB. Reports today lightheaded and fell and hit head. Denies LOC. States two days ago started with sore throat and non- productive cough. States "don't like doctors and didn't want to come in" but he reports his girlfriend made him come to ER today for evaluation. Denies hematemesis, melena, hematochezia, diarrhea, constipation, ROJAS, palpitations, choking, otalgia, rhinorrhea, extremity edema, rashes, urinary symptoms. Denies ETOH use. Spoke to patient's girlfriend Hayley with patient's permission and she states he smokes marijuana daily but thinks last used 3 days ago. She reports is working with PCP for workup of cognitive issues and forgetfulness. She reports prior ETOH use but is unaware of recent use. Reports patient had prior meth use but denies any known recent use. She discusses that he often doesn't take his home medications despite continued reminders. She reports previously attempted t o help patient with medication but he denies assistance. She reports has noticed a steady decline in patient's health over the past month and concerned he may be approaching soon. Discussed with ER physician who reports a-fib RVR given doses of IV Lopressor and elevated LFTs with CT abd/pelvis and abd US were ordered but not completed yet. Admission Exam Per Admitting Provider General: no distress at rest in bed, +ill appearing obese male Head: normocephalic, atraumatic Eyes: PERRL, conjunctiva non-injected, +icteric ENT: normal inspection external ears, nose, mucous membranes dry Neck: supple, trachea midline Lungs: clear, no respiratory distress, no wheezing/rhonchi/rales CV: irregularly irregular, rate 120, no pretibial edema Abd: normal BS, soft,+tenderness to palpation epigastric and LUQ without rebound or guarding, negative Sheppard's sign on exam Ext: no cyanosis, no calf tenderness Neuro: A&O x 3, no focal deficits noted, normal affect Skin: warm, dry Principal Diagnosis Transaminitis Possible acute adrenal insufficiency Possible cannabinoid induced hyperemesis Possible acute gastroenteritis Possible sepsis POA-ruled out Discharge Exam General: no distress at rest in bed, ENT: normal inspection external ears, nose, mucous membranes dry Neck: supple, trachea midline Lungs: clear, no respiratory distress, no wheezing/rhonchi/rales CV: irregularly irregular,, no pretibial edema Abd: normal BS, soft, Ext: no cyanosis, no calf tenderness Neuro: A&O x 3, no focal deficits noted, normal affect Skin: warm, dry Discharge Data Allergies Allergy/AdvReac Type Severity Reaction Status Date / Time No Known Allergies Allergy Verified 12/29/24 08:57 Consultations 05/13/25 18:04 ED Decision to Admit Stat 05/13/25 21:53 Consult Cardiology Routine Consult Gastroenterology Routine Consult Manager Zone Routine Ordered Studies 05/13/25 15:45 CT cervical spine wo con Stat CT head/brain wo con Stat 05/13/25 17:46 CT Abd and Pelvis [CT abd pelvis IV con only] Stat 05/14/25 US gallbladder Stat 05/14/25 09:50 IR thoracentesis wo tube US Routine Hospital Course (1) Transaminitis: (2) Nausea & vomiting: (3) Atrial fibrillation with rapid ventricular response: (4) Hypotension: (5) Splenic infarct: (6) Chronic heart failure with preserved ejection fraction (HFpEF): (7) ASCVD (arteriosclerotic cardiovascular disease): (8) COPD (chronic obstructive pulmonary disease): (9) PAD (peripheral artery disease): (10) Rheumatoid arthritis: Patient with past medical history of rheumatoid arthritis on chronic steroid, atrial fibrillation on Eliquis, COPD, presented to the hospital with nausea and vomiting for several days. Reports history of noncompliance with the medication. He has not been able to intake his home medication. Patient was admitted to medical floor; was transferred to ICU for persistent hypotension despite fluid resuscitation Transaminitis Possible acute adrenal insufficiency Possible cannabinoid induced hyperemesis Possible acute gastroenteritis Possible sepsis POA-ruled out presented to the hospital with nausea and vomiting for several days WBC elevated to 11,000 on admission Lactate elevated to 2.4 and up trended with eventual downtrend CXR: Cardiomegaly with evidence of congestive failure. Mild bilateral airspace opacities likely representing mild pulmonary edema. No large pleural effusion is seen. CT Abd/pelvis: New splenic infarct. Hepatic cirrhosis with minimal amount of intra-abdominal ascites improved since prior exam. 3 cm pulmonary nodule right lower lobe. Findings are concerning for neoplasm but stable since prior exam. Gallbladder ultrasound shows hepatomegaly AST/ALT downtrending Discussed with patient; he reports that he has been off steroid after years of use suddenly in the last couple of months. 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 We discussed about re starting at 7.5 mg once a day for 1 month and then gradually decreasing it. We discussed about medical compliance; stopping marijuana as it can lead to recurrent nausea/vomiting. Acute on chronic systolic heart failure Chest x-ray from May 14 reviewed; consistent with pulmonary edema Echocardiogram shows EF of 20 to 25% with global hypokinesis of left ventricle. RV systolic pressure elevated to 40 to 50 mmHg. Restarted back on Entresto 0.5 mg twice a day. Continue on metoprolol Diuresed with IV Lasix during hospitalization Saturating well in room air at the time of discharge AF with RVR Splenic infarct History of A-fib on Eliquis but not taking it. CT abdomen/pelvis showing a splenic infarct Restarted back on metoprolol and Eliquis Patient reports that he is not compliant with his medication. I discussed that he is at high risks of having strokes,infracts that could lead to significant physical disability, . He verbalized understanding of the risks associated of not being compliant with medication. Pulmonary mass I discussed the finding of the pulmonary mass with the patient on May 14, 2025; I discussed that he needs to follow-up with his PCP and obtain pulmonology referral as outpatient for further workup with PET/CT. he verbalized understanding. Reports that he has biopsy of the nodule done in the past; was diagnosed with RA nodule as per him. Patient had undergone thoracentesis of right sided pleural effusion on May 14, 2025. Cytology pending- follow up with PCP Please note the above document was generated using voice recognition software. It may contain grammatical, syntax or spelling errors. Any formal questions or concerns about the content, text or information contained within the body of this dictation should be directly addressed to the provider for clarification Total Time Total Time Spent Total Time Spent (In Minutes): 45 Total Time Includes: Examination of the Patient, Discharge Planning, Medication Reconciliation, Communication With Other Providers and Other Discharge Plan Discharge Items Patient Disposition: Home - Self-Care Reason For Visit: AFIB RVR, ELEVATED LFTS Discharge Diagnosis: Transaminitis Possible acute adrenal insufficiency Possible cannabinoid induced hyperemesis Possible acute gastroenteritis Possible sepsis POA-ruled out Condition on Discharge: Fair Activity: Resume your previous activity Non-emergency contact: Primary Care Provider Call non-emergency contact if: you have any medication questions and your symptoms worsen Follow-up/Referrals: Anahy Grayson MD [Primary Care Provider] - 05/22/25 10:20 am (Date & Time 05/22/2025 10:20 AM Provider: Anahy Grayson MD [facility] ) Diet: Regular Addtl Attending Provider Instructions: You were admitted to the hospital due to low blood pressure. The cause for the nausea and vomiting is likely due to acute gastroenteritis and possible marijuana use. You were evaluated by cardiology during the hospitalization. They recommended that you decrease the dose of Entresto from 1 tablet twice a day to half tablet twice a day. Restart taking prednisone at 7.5 mg once a day. Please follow-up with Dr. Hillman to decrease the dose gradually. You are found to have a lung mass of 3 cm. This has increased in size. Please follow-up with your primary care doctor and obtain pulmonology referral for further evaluation. Pending Studies at Discharge: Yes (pleural fluid cytology) Stand-Alone Forms: My [employer], Smoking Cessation Medications and DC Order Prescriptions: New prednisone 5 mg tablet 7.5 mg PO DAILY Qty: 90 0RF Continued nitroglycerin 0.4 mg tablet, sublingual 0.4 mg sublingual UD PRN (Reason: Chest Pain) Rx Instructions: NEEDED FOR CHEST PAIN : ONE TABLET UNDER THE TONGUE EVERY 5 MINUTES UP TO THREE DOSES. Eliquis 5 mg tablet 5 mg PO [facility] Rx Instructions: 2 tabs yesTwice Daily for 13 doses and then 1 tab Twice daily as before metoprolol succinate 50 mg tablet extended release 24 hr 50 mg PO Q12 digoxin 125 mcg (0.125 mg) tablet 0.125 mcg PO QAM Qty: 30 0RF sulfasalazine 500 mg tablet 1,000 mg PO BID Qty: 120 0RF omeprazole 40 mg capsule,delayed release(DR/EC) 40 mg PO DAILYBB Qty: 30 0RF spironolactone 25 mg tablet 12.5 mg PO QAM Qty: 15 0RF cholecalciferol (vitamin D3) [Vitamin D3] 10 mcg (400 unit) Capsule 10 mcg PO QAM Qty: 30 0RF duloxetine 30 mg capsule,delayed release(DR/EC) 30 mg PO QAM Qty: 30 0RF Jardiance 25 mg tablet 25 mg PO QAM Trelegy Ellipta 100-62.5-25 mcg blister with device 1 ea INHALATION QAM magnesium oxide 400 mg (241.3 mg magnesium) tablet 400 mg PO QAM aspirin 81 mg Tablet 81 mg PO QAM atorvastatin 10 mg tablet 10 mg PO DAILY leflunomide 10 mg Tablet 10 mg PO QAM divalproex 250 mg tablet extended release 24 hr 250 mg PO QAM oxycodone-acetaminophen 10-325 mg tablet 1 tab PO BID PRN (Reason: Pain,severe) Qty: 15 0RF Changed sacubitril-valsartan [Entresto] 24-26 mg tablet 0.5 tab PO AMHS Qty: 0 0RF Discontinued prednisone 5 mg tablet 10 mg PO DAILY Discharge Orders: Discharge Order (Routine); Ordered 05/17/25 Ordered By: Ned Flores/Other Patient Handouts: Prediabetes, 5 Steps for Eating Healthier Admission Data Admit Date/Time: 05/13/25 20:10 Attending Provider: Ned Dueñas Admit Provider: Larry Noble Primary Care Provider: Anahy Grayson Other Providers: Larry Noble; Michael Allen; Oritz Guillen; Alverto Parnell; [facility]
[2025-05-17 10:54] VITALS: PULSE 85; TEMP 97.3; O2SAT 97
[2025-05-17 11:12] VITALS: BP 109/79
--- NOTE | 2025-05-17 11:52 | Cardiology Progress Note ---
Date of Service May 17, 2025 Assessment & Plan (1) Heart failure with reduced ejection fraction: Plan: Decline in overall LV systolic function since last assessed, EF 20% (2) Severe left ventricular systolic dysfunction (LVSD): (3) Atrial fibrillation with rapid ventricular response: (4) Transaminitis: Plan Patient is a complex 60-year-old male with known history of prior nonischemic cardiomyopathy possibly tachycardia mediated with return to near normal LV function with medical therapies presents now with signs and symptoms of acute decline with elevated transaminases question acute process versus hepatic congestion secondary to severely reduced LV systolic function. Patient admits to lapse in cardiac medications including anticoagulants Currently improving under critical care attention Recommendations: 1. Atrial fibrillation with rapid response agree with initiation of digoxin will resume metoprolol succinate at reduced dose until clinical course defined beginning with 25 mg twice per day first tonight 2. Severe LV dysfunction, global with moderately severe mitral tricuspid insufficiency. Given history suspect tachycardia mediatedy but underlying processes may need to be redefined Plan to reinstitute Entresto at reduced dose 3. Elevated transaminases: Appreciate GI input 05/15/2025 Slowly improving. Resuming cardiac medications for diffuse cardiomyopathy and severely reduced ejection fraction. Has tolerated reintroduction. Received furosemide 20 mg IV this morning for volume manage. Transaminases improving Plan 1. Acute on chronic heart failure with reduced systolic function. Lapse in cardiac medications Increase metoprolol succinate back to prior 50 mg twice per day Continue reduced dose Entresto Restart spironolactone 12.5 mg/day CHF instructions 2. Transaminitis with improved laboratory testing today 05/16/2025: Plan 1. Afib with RVR -Rates controlled -Continue Eliquis 5mg PO BID -Continue Toprol xl 50mg PO BID 2. Acute on chronic HFrEF -Continue Torpol xl, entresto and low dose spirononlactone 3. Transaminitis with improved lab studies. 05/17/2025: Plan: -Review of telemetry shows A-fib, rates well controlled. -Continue Toprol xl 50mg PO BID for rate control. -Continue Eliquis 5mg PO BID for oral AC therapy -Appears near euvolemic on exam. Continue Furosemide 20mg IV BID today and assess volume status in the AM with consideration to transition to PO dosing when appropriate. -Continue Entresto 26/24mg 0.5 tab PO BID, Atorvastatin 10mg QD, Spironolactone 12.5mg PO QD and ASA 81mg PO QD. -Recommend repeat CMP in AM to assess renal function, electrolytes and ensure LFTs continue to trend down. Case has been discussed with Dr. Torres. Further recommendations regarding plan of care as per her assessment. I spent a total of 30 minutes on the date of service in preparation, delivery, documentation of the care provided to the patient excluding any time spent in the performance of separately billed services. PATRICK Magallon [facility] Cardiology [facility] Admission and Anticipated Discharge Date Admission Date: May 13, 2025 Subjective 05/17/2025: Patient seen and examined in follow up today. Feeling well from a cardiac perspective. Offers no acute concerns. he is resting comfortably in bed, but has been up ambulating around his room. Labs, vitals, diagnostics, telemetry and documentation reviewed. Telemetry reviewed showing A-fib rates 80s with occasional PVC's. No acute events overnight. Review of Systems Review of Systems: All systems reviewed & are unremarkable except as noted in HPI & below Physical Exam Constitutional: well developed, well nourished and + overweight Neck: normal visual inspection and trachea midline Respiratory: normal respiratory effort, lungs clear to auscultation Cardiovascular: Rate/Rhythm: + irregularly irregular Heart Sounds: normal S1 and normal S2 Vessels: dorsalis pedis pulses present; no JVD Extremities: no edema Skin: no rashes, warm and dry Psychiatric: A+Ox3, euthymic affect Results & Data Vital Signs (Past 12 Hours) Vital Signs Temp Pulse Pulse Resp BP BP Pulse Ox 05/17/25 11:08 36.3 C L 85 20 104/72 109/79 97 05/17/25 10:53 36.3 C L 85 20 104/72 97 05/17/25 07:42 106 H 05/17/25 07:19 36.4 C L 94 H 20 109/79 96 05/17/25 02:52 36.2 C L 93 H 18 116/71 95 O2 Del Method 05/17/25 11:08 05/17/25 10:53 Room Air 05/17/25 07:42 05/17/25 07:19 Room Air 05/17/25 02:52 Room Air Laboratory Results Intake and Output 05/16/25 05/17/25 05/17/25 22:59 06:59 14:59 Intake Total 440 / 1328 Output Total 1000 / 1200 200 / 1200 Balance -560 / 128 -200 / 128 Intake: IV 200 / 200 Magnesium Sulfate / D5w 1 gm In 200 / 200 100 ml @ 50 mls/hr IV Q2H MAIRA Rx#:[id number] Oral 240 / 1128 Output: Urine 1000 / 1200 200 / 1200 Other: # Unmeasured Voids 1 Weight 95.2 kg 95.2 kg Weight Measurement Method Built in [facility] Patient Weight 05/18/25 06:59 Weight 95.2 kg PG Care Time/CCT Total # of Minutes Spent Total Time Spent with Patient: Total time spent is greater than 50% in coordination of care (as documented) at patient's floor/unit and/or counseling patient: Coding Level of Care Code 74917 SUB INP/OBS CARE 3/50MIN Diagnoses Heart failure with reduced ejection fraction I50.20 Severe left ventricular systolic dysfunction (LVSD) I51.89 Atrial fibrillation with rapid ventricular response I48.91 Transaminitis R74.01 Time Spent (min) 30
[2025-05-18 16:33] LABS: Hepatitis A Antibody IgM NON-REACTIVE (NON-REACTIVE); Hepatitis B Core Antibody IgM NON-REACTIVE (NON-REACTIVE)
[2025-05-19 12:52] LABS: Hepatitis C Vira RNA (Log) PCR <1.18 NOT DETECTED Log IU/mL (NOT DETECTED)
[2025-05-20 13:36] LABS: Anti Nuclear Antibody Screen POSITIVE (NEGATIVE)
== END 2025-05-17 14:34 | disposition home health service (06) | DRG 643 ==
LOC: ED 15:27 → 1E 20:10 → SUATTDRO 20:10 → 1E 22:12 → 2E 05-14 19:53

== ENCOUNTER 2025-05-23 00:10 | Inpatient (IN) ==
--- NOTE | 2025-05-23 00:18 | Emergency Department Note ---
History of Present Illness General Chief complaint: Shortness of Breath/Dyspnea Stated complaint: SOB History of Present Illness This 60 year old male with PMH rheumatoid arthritis, Raynaud's, persistent atrial fibrillation, on Eliquis, COPD, history cardiomyopathy in setting of a- fib RVR in 06/2022, Since with improved EF (55% in 12/2024), CAD, PAD, H/O PE, and other problems listed below presents ER for fatigue and shortness of breath today. Patient felt fine yesterday. Patient denies chest pain, fever, chills, vomiting, diarrhea. Patient came by EMS. Stable vital signs. He has not missed his Eliquis. Home Medications Medication Instructions Recorded Confirmed Type nitroglycerin 0.4 mg sublingual 0.4 mg sublingual UD PRN Chest Pain 08/27/21 05/23/25 History tablet cholecalciferol (vitamin D3) 10 10 mcg PO QAM #30 caps 12/04/23 05/23/25 Rx mcg (400 unit) capsule (Vitamin D3) duloxetine 30 mg capsule,delayed 30 mg PO QAM #30 caps 12/04/23 05/23/25 Rx release omeprazole 40 mg capsule,delayed 40 mg PO DAILYBB #30 caps 12/04/23 05/23/25 Rx release spironolactone 25 mg tablet 12.5 mg (1/2 x 25 mg) PO QAM #15 12/04/23 05/23/25 Rx tabs sulfasalazine 500 mg tablet 1,000 mg (2 x 500 mg) PO BID #120 12/04/23 05/23/25 Rx tabs aspirin 81 mg tablet 81 mg PO QAM 12/25/24 05/23/25 History atorvastatin 10 mg tablet 10 mg PO QAM 12/25/24 05/23/25 History divalproex 250 mg tablet,extended 250 mg PO QAM 12/25/24 05/23/25 History release 24 hr empagliflozin 25 mg tablet 25 mg PO QAM 12/25/24 05/23/25 History (Jardiance) fluticasone fur. 100 mcg-umeclid 1 ea inhalation QAM 12/25/24 05/23/25 History 62.5 mcg-vilant 25 mcg inhalat.powder (Trelegy Ellipta) magnesium oxide 400 mg (241.3 mg 400 mg PO QAM 12/25/24 05/23/25 History magnesium) tablet oxycodone-acetaminophen 10 mg-325 1 tab PO BID PRN Pain,severe #15 12/30/24 05/23/25 Rx mg tablet tabs apixaban 5 mg tablet (Eliquis) 5 mg PO AMHS 05/13/25 05/23/25 History metoprolol succinate 50 mg 50 mg PO Q12 05/13/25 05/23/25 History tablet,extended release 24 hr digoxin 125 mcg (0.125 mg) tablet 0.125 mcg (0.001 x 125 mcg (0.125 05/17/25 05/23/25 Rx mg)) PO QAM #30 tabs sacubitril 24 mg-valsartan 26 mg 0.5 tab PO AMHS #0 tabs 05/17/25 05/23/25 Rx tablet (Entresto) furosemide 20 mg tablet 20 mg PO QAM 05/23/25 05/23/25 History prednisone 5 mg tablet 7.5 mg PO QAM 05/23/25 05/23/25 History Allergies Allergy/AdvReac Type Severity Reaction Status Date / Time No Known Allergies Allergy Verified 12/29/24 08:57 Past Med/Surg History Problem List Elevated troponin (Acute) Pneumonia (Acute) Severe left ventricular systolic dysfunction (LVSD) Heart failure with reduced ejection fraction (Acute) Pleural effusion, bilateral Pulmonary thromboembolism Lung mass Splenic infarct Hypotension Head injury (Acute) Fall from standing (Acute) Elevated brain natriuretic peptide (BNP) level (Acute) Acute exacerbation of CHF (congestive heart failure) (Acute) Transaminitis (Acute) Hyperbilirubinemia (Acute) Elevated lactic acid level (Acute) Nausea & vomiting (Acute) Generalized weakness (Acute) Elevated troponin (Acute) Atrial fibrillation with rapid ventricular response (Acute) Sepsis (Acute) (HFpEF) heart failure with preserved ejection fraction Abdominal pain (Acute) Elevated troponin (Acute) LEVIN (dyspnea on exertion) (Acute) A-fib (Acute) CHF (congestive heart failure) (Acute) Amputation of right great toe Amputation of left great toe Cellulitis of left foot Mood disorder Osteomyelitis of great toe of left foot (Acute) Chest pain at rest Atrial fibrillation with rapid ventricular response (Acute) Depressive disorder Raynauds disease PAD (peripheral artery disease) (Acute) HTN (hypertension) Hepatitis C Chronic steroid use (Chronic) Rheumatoid arthritis (Chronic) GERD (gastroesophageal reflux disease) Osteoarthritis of right knee (Chronic) Status post right knee replacement (Acute) Medical History Chronic heart failure with preserved ejection fraction (HFpEF) Heart failure with improved ejection fraction (HFimpEF) Medical non-compliance COPD (chronic obstructive pulmonary disease) History of osteomyelitis ASCVD (arteriosclerotic cardiovascular disease) Chronic atrial fibrillation Dyslipidemia, goal LDL below 70 Erectile dysfunction Tobacco use disorder Surgical History History of cardiac cath History of colonoscopy Hx of tonsillectomy Family History Other Heart disease Hypertension Social History Smoking Status: Former smoker Tobacco Type: Cigarettes and Smokeless Tobacco (Dip or Chew) Cigarettes Per Day: 5; Second Hand Exposure: No; Do You Dip or Chew Tobacco: No; Hx Alcohol Use: No Hx Substance Use: No Preferred Language: Maori Communication Ability: Effective Poultry Veterinarian Required: No Beliefs That Will Affect Care: None Current Living Situation: Significant Other Current Living Situation Comment: Lives at home with girlfriend Hayley, & their child Danica Feels Safe at Home: Yes Assistive Devices: Cane Review of Systems A total of 10 systems reviewed and were otherwise negative Physical Exam Vital Signs Vital Signs - 24 hr 05/23/25 00:15 05/23/25 00:15 05/23/25 00:15 Temperature 36.5 C Temperature Source Oral Pulse Rate 82 Pulse Rhythm Regular Pulse Strength Normal Respiratory Rate 20 Respiratory Effort / Characteristics Non-Labored Spontaneous Non-Labored Spontaneous Respiratory Depth Normal Normal Respiratory Pattern Regular Regular Blood Pressure 147/93 H Blood Pressure Mean 111 Pulse Oximetry 98 98 Oxygen Delivery Method Room Air Room Air Room Air Oxygen Flow Rate 0 Sepsis Recent Fever Within 48 Hours No Sepsis New/Unexplained Change in Mental Status No Sepsis Action Taken by Nursing No Action Required 05/23/25 00:43 05/23/25 01:00 Temperature Temperature Source Pulse Rate 95 H 89 Pulse Rhythm Pulse Strength Respiratory Rate 15 Respiratory Effort / Characteristics Respiratory Depth Respiratory Pattern Blood Pressure 137/107 H Blood Pressure Mean 117 Pulse Oximetry 95 Oxygen Delivery Method Oxygen Flow Rate Sepsis Recent Fever Within 48 Hours Sepsis New/Unexplained Change in Mental Status Sepsis Action Taken by Nursing VITALS: Vitals are noted on the nurse's note and reviewed by myself. Vital signs stable. GENERAL: Pleasant gentleman speaking in full sentences, in no acute distress, nondiaphoretic, well-developed well-nourished. SKIN: Capillary reflex less than 2 seconds. HEENT: Normocephalic. PERRLA. EOMI. Nares patent. Mucous membranes moist. Neck is supple without nuchal rigidity. HEART: Irregular irregular rate and rhythm LUNGS: Mild diffuse end expiratory wheezes, No retractions or accessory muscle use. ABDOMEN: Positive bowel sounds x 4. Normal tympanic percussion. Soft, nontender, without masses or organomegaly. Sheppard sign negative. No guarding or rebound tenderness. no CVA tenderness MUSCULOSKELETAL: No gross musculoskeletal defects. NEURO: Patient was alert and oriented to person place and time. No focal neurological deficits. Course Administered Medications Discontinued Medications Albuterol (Albut/Ipratrop 3mg/0.5mg Neb 3 Ml Vial) 3 ml INH NOW STA Stop: 05/23/25 00:15 Last Admin: 05/23/25 00:24 Dose: 3 ml Documented By: BAYLEE Methylprednisolone (Methylprednisolone 125 Mg/2 Ml Vial) 125 mg IV NOW STA Stop: 05/23/25 00:50 Last Admin: 05/23/25 00:53 Dose: 125 mg Documented By: BAYLEE Medical Decision Making Medical Records Attestation: I reviewed the patient's medical records. Home Medications Current Medication List: was personally reviewed by me Laboratory Data Attestation: I reviewed the patient's lab results. 05/23/25 00:11 05/23/25 00:11 Lab Results 05/23/25 05/23/25 Range/Units 00:11 01:20 WBC 7.42 (4.8-10.8) K/ul RBC 5.48 (4.70-6.10) M/uL Hgb 12.9 L (14.0-18.0) g/dL Hct 41.2 L (42.0-52.0) % MCV 75.2 L (80.0-100.0) fL MCH 23.5 L (25.0-34.0) pg MCHC 31.3 L (32.0-36.0) g/dL RDW Std Deviation 51.5 H (36.4-46.3) fL RDW Coeff of Alex 21.1 H (11.5-14.5) % Plt Count 278 (130-400) K/uL MPV 10.6 (9.4-12.4) fL Immature Gran % (Auto) 0.4 % Neut % (Auto) 64.9 % Lymph % (Auto) 19.7 % [place] % (Auto) 12.3 % Eos % (Auto) 2.3 % Baso % (Auto) 0.4 % Neut # (Auto) 4.82 (1.40-6.50) K/uL Lymph # (Auto) 1.46 (1.20-3.40) K/uL [place] # (Auto) 0.91 H (0.11-0.59) K/uL Eos # (Auto) 0.17 (0.00-0.50) K/uL Baso # (Auto) 0.03 (0.00-0.20) K/uL Immature Gran # (Auto) 0.03 (0.01-0.20) K/uL Polychromasia 1+ Anisocytosis Present Echinocytes 2+ Sodium 138 (136-145) mmol/L Potassium 4.7 (3.5-5.1) mmol/L Chloride 105 (98-107) mmol/L Carbon Dioxide 27 (21-32) mmol/L Anion Gap 6 (3-11) BUN 20 (6-23) mg/dl Creatinine 0.69 (0.6-1.4) mg/dl Est Cr Clr Drug Dosing 128.5 ml/min eGFR 105.29 BUN/Creatinine Ratio 29.0 H (10-20) Glucose 102 H (70-99(Fasting)) mg/dl Lactate 2.4 H* (0.4-2.0) mmol/L Calcium 10.0 (8.6-10.3) mg/dl Magnesium 2.1 (1.7-2.4) mg/dl Total Bilirubin 0.9 (0.2-1.0) mg/dl AST 21 (13-39) U/L ALT 72 H (7-52) U/L Alkaline Phosphatase 98 (34-104) U/L Troponin I High Sens 50.3 H* (0-20) pg/ml B-Natriuretic Peptide 2600 H (0-100) pg/ml Total Protein 6.7 (6.0-8.3) gm/dl Albumin 3.8 (3.4-5.0) gm/dl Globulin 2.9 (2.5-4.0) gm/dl Albumin/Globulin Ratio 1.3 (0.9-2) Procalcitonin < 0.02 (0-0.5) ng/ml Adenovirus (PCR) Not Detected (NotDetected) B. pertussis DNA (PCR) Not Detected (NotDetected) B.parapertussis DNA PCR Not Detected (NotDetected) C. pneumoniae DNA (PCR) Not Detected (NotDetected) Coronavirus OC43 (PCR) Not Detected (NotDetected) Coronavirus HKU1 (PCR) Not Detected (NotDetected) Coronavirus 229E (PCR) Not Detected (NotDetected) SARS-CoV-2 (PCR) Not Detected (NotDetected) Coronavirus NL63 (PCR) Not Detected (NotDetected) Human Metapneumovir PCR Not Detected (NotDetected) Influenza Type A (PCR) Not Detected (NotDetected) Influenza Type B (PCR) Not Detected (NotDetected) M. pneumoniae (PCR) Not Detected (NotDetected) Parainfluenza 1 (PCR) Not Detected (NotDetected) Parainfluenza 2 (PCR) Not Detected (NotDetected) Parainfluenza 3 (PCR) Not Detected (NotDetected) Parainfluenza 4 (PCR) Not Detected (NotDetected) RSV (PCR) Not Detected (NotDetected) Entero/Rhino (PCR) Not Detected (NotDetected) Imaging Data Attestation: I personally reviewed and interpreted this imaging study as follows: Radiologist's Impression: Chest X-Ray 05/23/25 00:15 EXAM: XR chest 1V portable CLINICAL HISTORY: Dyspnea TECHNIQUE: An X-ray image of the chest is obtained in AP projection. COMPARISON: 05/14/2025 CR FINDINGS: Pulmonary Parenchyma: Newly developed bilateral lower lung zones hazy opacities. Unchanged bilateral prominent vascular markings. No evidence of consolidation or collapse. No evidence of pleural effusion or pleural thickening. Heart and Mediastinum: Unchanged cardiomegaly and prominent size of both hilar vascular shadows. No hilar or mediastinal lymphadenopathy. Atherosclerotic changes of the aortic arch. Bony Thorax: Bony thorax appears intact without fractures or deformities. There is severe bilateral glenohumeral osteoarthritis (Unchanged). Soft Tissues: Soft tissues overlying the chest wall are unremarkable. IMPRESSION: Newly developed bilateral lower lung zone hazy opacities, on a background of unchanged cardiomegaly and prominent pulmonary vascular markings, findings are in keeping with worsening pulmonary edema/congestion; clinical correlation and follow-up are advised. Electronically signed by Marshall Araujo 05-23-2025 02:04 AM MDM Narrative Prior records/ancillary studies reviewed. Triage Nursing notes reviewed. Additional history obtained from the EMS. The patient's history was concerning for respiratory difficulties. Differential diagnosis: Etiologies such as infections, reactive airway disease, pneumonia, pneumothorax, COPD, CHF, cardiac ischemia, pulmonary embolism, musculoskeletal, gastrointestinal, as well as others were entertained. Physical examination: As above. ER treatment provided: An order was placed for continuous cardiac monitoring. The monitor shows a rate of 60-100 with a A-fib rhythm per my interpretation. Nebulizer, Solu-Medrol, Zosyn and doxycycline On reassessment the patient felt better. Diagnostic interpretation by me: The electrocardiogram was ordered for SOB. ECG: Irregularly irregular with no acute ST-T wave changes, right axis, rate 87. Impression A-fib rate controlled independently interpreted by myself The labs Independently Interpreted by myself revealed no worrisome leukocytosis, stable anemia per chart review. Slightly elevated troponin, most likely type II. Elevated BNP. Patient is in heart failure. Negative BioFire. Imaging studies: Chest x-ray was reviewed and read by radiology. HEART SCORE: Hx: high/mod/low suspicion: 0 ECG: ST depression/nonspecific changes/normal: 0 Age: Greater than 65/45-64/less than 45: 1 Risk factors: (Hypertension, hyperlipidemia, diabetes, coronary disease, tobacco use, cocaine use): 2 Troponin: Greater than 2 times normal limits/1-2 times normal limits/normal: 1 Total: 4 Consultation: A consultation was placed with the hospitalist. The case was discussed and diagnostics were reviewed. The patient was evaluated in the ER for further treatment. This appears to be consistent with heart failure with concerns for pneumonia. Elevated BNP and troponin most likely from heart failure. Elevated lactic mostly for pneumonia. Blood cultures are pending. Patient was medicated as above. He felt better after being medicated as above. He was not hypoxic he was not retracting. Medicine was consulted case discussed. He will be admitted to the medical service.. By the evaluation outlined above emergent etiologies such as pulmonary embolism, reactive airway disease, pneumothorax, musculoskeletal, serious bacterial infections, as well as others were deemed relatively unlikely. The pt informed about the findings as listed above. All questions were answered and pleased with the treatment. The chart was completed utilizing [employer] Speech voice recognition software. Grammatical errors, random word insertions, pronoun errors, and incomplete sentences are an occassional consequence of this system due to software limitations, ambient noise, and hardware issues. Any formal questions or concerns about the content, text, or information contained within the body of this dictation should be directly addressed to the physician assistant merchandise manager for clarification. Impression & Plan Heart failure with reduced ejection fraction, Pneumonia, Elevated troponin Discharge Plan Visit Data Chief Complaint: Shortness of Breath/Dyspnea Stated Complaint: SOB ED Provider: Fredy Wilhelm ED Midlevel Provider: Lydia Underwood Discharge Problem: Heart failure with reduced ejection fraction, Pneumonia, Elevated troponin Patient Disposition: Admitted As Inpatient Condition: Fair Forms Stand Alone Forms: [facility] [email or web address] Prescriptions Prescriptions: No Action nitroglycerin 0.4 mg tablet, sublingual 0.4 mg sublingual UD PRN (Reason: Chest Pain) Rx Instructions: NEEDED FOR CHEST PAIN : ONE TABLET UNDER THE TONGUE EVERY 5 MINUTES UP TO THREE DOSES. Eliquis 5 mg tablet 5 mg PO AMHS Rx Instructions: 2 tabs yesTwice Daily for 13 doses and then 1 tab Twice daily as before metoprolol succinate 50 mg tablet extended release 24 hr 50 mg PO Q12 digoxin 125 mcg (0.125 mg) tablet 0.125 mcg PO QAM Qty: 30 0RF sacubitril-valsartan [Entresto] 24-26 mg tablet 0.5 tab PO AMHS Qty: 0 0RF sulfasalazine 500 mg tablet 1,000 mg PO BID Qty: 120 0RF omeprazole 40 mg capsule,delayed release(DR/EC) 40 mg PO DAILYBB Qty: 30 0RF spironolactone 25 mg tablet 12.5 mg PO QAM Qty: 15 0RF cholecalciferol (vitamin D3) [Vitamin D3] 10 mcg (400 unit) Capsule 10 mcg PO QAM Qty: 30 0RF duloxetine 30 mg capsule,delayed release(DR/EC) 30 mg PO QAM Qty: 30 0RF Jardiance 25 mg tablet 25 mg PO QAM Trelegy Ellipta 100-62.5-25 mcg blister with device 1 ea INHALATION QAM magnesium oxide 400 mg (241.3 mg magnesium) tablet 400 mg PO QAM aspirin 81 mg Tablet 81 mg PO QAM atorvastatin 10 mg tablet 10 mg PO QAM divalproex 250 mg tablet extended release 24 hr 250 mg PO QAM oxycodone-acetaminophen 10-325 mg tablet 1 tab PO BID PRN (Reason: Pain,severe) Qty: 15 0RF furosemide 20 mg Tablet 20 mg PO QAM prednisone 5 mg tablet 7.5 mg PO QAM Referrals Referrals: Anahy Grayson MD [Primary Care Provider] -
[2025-05-23] MEDS: ALBUT/IPRATROP 3MG/0.5MG NEB 3 ML VIAL INH STA (00:24)
[2025-05-23 00:42] LABS: Hematocrit (blood only) 41.2 % (42.0-52.0); Hemoglobin 12.9 g/dL (14.0-18.0); Immature Granulocytes # (auto) 0.03 K/uL (0.01-0.20); Immature Granulocytes % (auto) 0.4 %; Mean Corpuscular Hemoglobin 23.5 pg (25.0-34.0); Mean Corpuscular Volume 75.2 fL (80.0-100.0); Platelet Count 278 K/uL (130-400); RDW Standard Deviation 51.5 fL (36.4-46.3); Red Blood Count 5.48 M/uL (4.70-6.10); White Blood Count 7.42 K/ul (4.8-10.8)
[2025-05-23 00:59] LABS: Alanine Aminotransferase 72.0 U/L (7-52); Albumin Globulin Ratio 1.3 (0.9-2); Albumin Level 3.8 gm/dl (3.4-5.0); Alkaline Phosphatase 98.0 U/L (34-104); Anion Gap 6.0 (3-11); Bilirubin,Total 0.9 mg/dl (0.2-1.0); Blood Urea Nitrogen 20.0 mg/dl (6-23); Calcium 10.0 mg/dl (8.6-10.3); Carbon Dioxide 27.0 mmol/L (21-32); Chloride 105.0 mmol/L (98-107); Creatinine Clr Calc Pharmacy 128.5 ml/min; Globulin 2.9 gm/dl (2.5-4.0); Glucose 102.0 mg/dl (70-99(Fasting)); Magnesium 2.1 mg/dl (1.7-2.4); Potassium 4.7 mmol/L (3.5-5.1); Sodium 138.0 mmol/L (136-145); Total Protein 6.7 gm/dl (6.0-8.3)
[2025-05-23 01:02] LABS: Anisocytosis Present; Polychromasia 1+
[2025-05-23 01:26] LABS: Chlamydia pneumoniae PCR Not Detected (NotDetected); Coronavirus 229E PCR Not Detected (NotDetected); Coronavirus CoV-2 (COVID19)PCR Not Detected (NotDetected); Coronavirus HKU1 PCR Not Detected (NotDetected); Coronavirus NL63 PCR Not Detected (NotDetected); Coronavirus OC43PCR Not Detected (NotDetected); Human Metapneumovirus PCR Not Detected (NotDetected); Parainfluenza Virus 1 PCR Not Detected (NotDetected); Parainfluenza Virus 2 PCR Not Detected (NotDetected); Parainfluenza Virus 3 PCR Not Detected (NotDetected); Parainfluenza Virus 4 PCR Not Detected (NotDetected); Respiratory Syncytial VirusPCR Not Detected (NotDetected); Rhinovirus/Enterovirus PCR Not Detected (NotDetected)
--- NOTE | 2025-05-23 02:05 | XRay Report ---
EXAM: XR chest 1V portable CLINICAL HISTORY: Dyspnea TECHNIQUE: An X-ray image of the chest is obtained in AP projection. COMPARISON: 05/14/2025 CR FINDINGS: Pulmonary Parenchyma: Newly developed bilateral lower lung zones hazy opacities. Unchanged bilateral prominent vascular markings. No evidence of consolidation or collapse. No evidence of pleural effusion or pleural thickening. Heart and Mediastinum: Unchanged cardiomegaly and prominent size of both hilar vascular shadows. No hilar or mediastinal lymphadenopathy. Atherosclerotic changes of the aortic arch. Bony Thorax: Bony thorax appears intact without fractures or deformities. There is severe bilateral glenohumeral osteoarthritis (Unchanged). Soft Tissues: Soft tissues overlying the chest wall are unremarkable. IMPRESSION: Newly developed bilateral lower lung zone hazy opacities, on a background of unchanged cardiomegaly and prominent pulmonary vascular markings, findings are in keeping with worsening pulmonary edema/congestion; clinical correlation and follow-up are advised. Electronically signed by Marshall Araujo 05-23-2025 02:04 AM
[2025-05-23] MEDS: PIPERACILLIN/TAZOBACTAM 4.5 GM/100 ML BAG IV ONE (02:16)
[2025-05-23 02:21] LABS: Base Excess VBG 2.7 mEq/L; HCO3 VBG 29 mmol/L; Oxygen Saturation VBG < 60.0 %; PCO2 VBG 50 mmHg (38-50); PO2 VBG 24 mmHg; pH VBG 7.37 (7.36-7.41)
[2025-05-23] MEDS: FUROSEMIDE 40 MG/4 ML VIAL IV ONE (03:15)
--- NOTE | 2025-05-23 03:38 | History & Physical Report ---
Date of Service May 23, 2025 Assessment & Plan (1) SOB (shortness of breath): Plan: 60-year-old male with past med history significant for rheumatoid arthritis, Raynaud's disease , persistent atrial fibrillation on Eliquis, COPD, history of, and systolic and diastolic CHF, history of A-fib, CAD, PAD, SVT, GERD, hepatitis C virus cured after antiviral drug therapy, depression anxiety, long-term steroid, history of substance abuse presents with shortness of breath. Patient states last 2 to 3 days feeling short of breath. Denies any cough. No fevers. No chest pain. No orthopnea. Has headache. Vision is okay. No runny nose or sore throat. No nausea. No abdominal pain. He gets diarrhea and constipation. Micturating okay. Ambulates with a cane. Hemodynamics are okay. Patient was recently in the hospital for possible cannabinoid induced hyperemesis and acute gastroenteritis and also acute on chronic systolic CHF and rapid A-fib. His medications were adjusted. His echo last admission showed EF of 20 to 25% with global hypokinesis of left ventricle. Patient states he is taking his medications regularly. Shortness of breath Acute on chronic systolic and diastolic CHF Possible pneumonia Empiric Zosyn and Doxy Will follow CT chest IV Lasix 40 mg daily Echo on 05/14/2025 showed EF of 20 to 25%. Severe left ventricular global hypokinesis. Moderate to severe mitral regurgitation. Moderate to severe tricuspid regurgitation. Telemetry I's and O's Continue home digoxin, Jardiance and metoprolol succinate and Entresto and spironolactone. Hold home p.o. Lasix for now Consult cardiology for further recommendations A-fib On metoprolol succinate, digoxin and Eliquis Rheumatoid arthritis Currently on prednisone 7.5 mg daily and sulfasalazine Prednisone was restarted last admission for adrenal insufficiency as it was stopped abruptly Follow-up with youth coordinator CAD Nonobstructive CAD On beta-tyrone statin aspirin and Eliquis Peripheral artery disease Aspirin and statin Mood disorder On divalproex and duloxetine History of COPD Continue home Trelegy Pulmonary mass Follow CT scan DVT prophylaxis On Eliquis Disposition Telemetry Full code. History of Present Illness Chief Complaint: Shortness of breath Primary Care Provider: Anahy Grayson MD 60-year-old male with past med history significant for rheumatoid arthritis, Raynaud's disease , persistent atrial fibrillation on Eliquis, COPD, history of, and systolic and diastolic CHF, history of A-fib, CAD, PAD, SVT, GERD, hepatitis C virus cured after antiviral drug therapy, depression anxiety, long-term steroid, history of substance abuse presents with shortness of breath. Patient states last 2 to 3 days feeling short of breath. Denies any cough. No fevers. No chest pain. No orthopnea. Has headache . Vision is okay. No runny nose or sore throat. No nausea. No abdominal pain. He gets diarrhea and constipation. Micturating okay. Ambulates with a cane. Hemodynamics are okay. Patient was recently in the hospital for possible cannabinoid induced hyperemesis and acute gastroenteritis and also acute on chronic systolic CHF and rapid A-fib. His medications were adjusted. His echo last admission showed EF of 20 to 25% with global hypokinesis of left ventricle. Patient states he is taking his medications regularly. Past medical history. As mentioned above. Past surgical history. Amputation of left finger. Bronchoscopy colonoscopy dental surgery. Tonsillectomy. Right knee joint replacement. Social history. Smoked 0.3 pack a day for 38 years. Currently no alcohol use. History of cocaine use. Currently no drugs per epic. Family history. Father had dementia. Mother had heart disease and hypertension. Allergies Allergy/AdvReac Type Severity Reaction Status Date / Time No Known Allergies Allergy Verified 12/29/24 08:57 Home Medications Medication Instructions Recorded Confirmed Type nitroglycerin 0.4 mg sublingual 0.4 mg sublingual UD PRN Chest Pain 08/27/21 05/23/25 History tablet cholecalciferol (vitamin D3) 10 10 mcg PO QAM #30 caps 12/04/23 05/23/25 Rx mcg (400 unit) capsule (Vitamin D3) duloxetine 30 mg capsule,delayed 30 mg PO QAM #30 caps 12/04/23 05/23/25 Rx release omeprazole 40 mg capsule,delayed 40 mg PO DAILYBB #30 caps 12/04/23 05/23/25 Rx release spironolactone 25 mg tablet 12.5 mg (1/2 x 25 mg) PO QAM #15 12/04/23 05/23/25 Rx tabs sulfasalazine 500 mg tablet 1,000 mg (2 x 500 mg) PO BID #120 12/04/23 05/23/25 Rx tabs aspirin 81 mg tablet 81 mg PO QAM 12/25/24 05/23/25 History atorvastatin 10 mg tablet 10 mg PO QAM 12/25/24 05/23/25 History divalproex 250 mg tablet,extended 250 mg PO QAM 12/25/24 05/23/25 History release 24 hr empagliflozin 25 mg tablet 25 mg PO QAM 12/25/24 05/23/25 History (Jardiance) fluticasone fur. 100 mcg-umeclid 1 ea inhalation QAM 12/25/24 05/23/25 History 62.5 mcg-vilant 25 mcg inhalat.powder (Trelegy Ellipta) magnesium oxide 400 mg (241.3 mg 400 mg PO QAM 12/25/24 05/23/25 History magnesium) tablet oxycodone-acetaminophen 10 mg-325 1 tab PO BID PRN Pain,severe #15 12/30/24 05/23/25 Rx mg tablet tabs apixaban 5 mg tablet (Eliquis) 5 mg PO AMHS 05/13/25 05/23/25 History metoprolol succinate 50 mg 50 mg PO Q12 05/13/25 05/23/25 History tablet,extended release 24 hr digoxin 125 mcg (0.125 mg) tablet 0.125 mcg (0.001 x 125 mcg (0.125 05/17/25 05/23/25 Rx mg)) PO QAM #30 tabs sacubitril 24 mg-valsartan 26 mg 0.5 tab PO AMHS #0 tabs 05/17/25 05/23/25 Rx tablet (Entresto) furosemide 20 mg tablet 20 mg PO QAM 05/23/25 05/23/25 History prednisone 5 mg tablet 7.5 mg PO QAM 05/23/25 05/23/25 History Past Med/Surg History Problem List SOB (shortness of breath) Elevated troponin (Acute) Pneumonia (Acute) Severe left ventricular systolic dysfunction (LVSD) Heart failure with reduced ejection fraction (Acute) Pleural effusion, bilateral Pulmonary thromboembolism Lung mass Splenic infarct Hypotension Head injury (Acute) Fall from standing (Acute) Elevated brain natriuretic peptide (BNP) level (Acute) Acute exacerbation of CHF (congestive heart failure) (Acute) Transaminitis (Acute) Hyperbilirubinemia (Acute) Elevated lactic acid level (Acute) Nausea & vomiting (Acute) Generalized weakness (Acute) Elevated troponin (Acute) Atrial fibrillation with rapid ventricular response (Acute) Sepsis (Acute) (HFpEF) heart failure with preserved ejection fraction Abdominal pain (Acute) Elevated troponin (Acute) LEVIN (dyspnea on exertion) (Acute) A-fib (Acute) CHF (congestive heart failure) (Acute) Amputation of right great toe Amputation of left great toe Cellulitis of left foot Mood disorder Osteomyelitis of great toe of left foot (Acute) Chest pain at rest Atrial fibrillation with rapid ventricular response (Acute) Depressive disorder Raynauds disease PAD (peripheral artery disease) (Acute) HTN (hypertension) Hepatitis C Chronic steroid use (Chronic) Rheumatoid arthritis (Chronic) GERD (gastroesophageal reflux disease) Osteoarthritis of right knee (Chronic) Status post right knee replacement (Acute) Medical History Chronic heart failure with preserved ejection fraction (HFpEF) Heart failure with improved ejection fraction (HFimpEF) Medical non-compliance COPD (chronic obstructive pulmonary disease) History of osteomyelitis ASCVD (arteriosclerotic cardiovascular disease) Chronic atrial fibrillation Dyslipidemia, goal LDL below 70 Erectile dysfunction Tobacco use disorder Surgical History History of cardiac cath History of colonoscopy Hx of tonsillectomy Family History Other Heart disease Hypertension Social History Smoking Status: Former smoker Tobacco Type: Cigarettes and Smokeless Tobacco (Dip or Chew) Cigarettes Per Day: 5; Second Hand Exposure: No; Do You Dip or Chew Tobacco: No; Hx Alcohol Use: No Hx Substance Use: No Preferred Language: Bangladeshi Communication Ability: Effective Medical Assistant Per Diem Required: No Beliefs That Will Affect Care: None Current Living Situation: Significant Other Current Living Situation Comment: Lives at home with girlfriend Hayley, & their child Danica Feels Safe at Home: Yes Assistive Devices: Cane Review of Systems Review of Systems: All systems reviewed & are unremarkable except as noted in HPI & below Physical Exam Physical Exam: General- Not in distress Head- atraumatic Eyes- PERRL. ENT- oropharynx clear Neck- supple, no JVD. Lungs- clear to auscultation no wheezing, mild bibasilar crackles Heart- regular rhythm; no murmur, no gallop. Abdomen- normal bowel sounds, soft, nontender, no distension Extremities- mild pretibial edema, no erythema seen Neuro- alert, oriented x 3; PERRL, no facial palsy; no dysarthria; moves extremities Results & Data Results & Data Vital Signs (Past 12 Hours) Vital Signs Temp Pulse Resp BP Pulse Ox O2 Del Method O2 Flow Rate 05/23/25 03:00 100 H 18 129/95 94 05/23/25 02:30 100 H 22 143/99 H 05/23/25 02:00 87 20 145/107 H 05/23/25 01:30 93 H 20 135/110 H 05/23/25 01:00 89 15 137/107 H 95 05/23/25 00:43 95 H 05/23/25 00:15 98 Room Air 0 05/23/25 00:15 36.5 C 82 20 147/93 H 98 Room Air 05/23/25 00:15 Room Air Diagnostic Findings Laboratory Results WBC 7.42 K/ul (4.8-10.8) 05/23/25 00:11 RBC 5.48 M/uL (4.70-6.10) 05/23/25 00:11 Hgb 12.9 g/dL (14.0-18.0) L 05/23/25 00:11 Hct 41.2 % (42.0-52.0) L 05/23/25 00:11 MCV 75.2 fL (80.0-100.0) L 05/23/25 00:11 MCH 23.5 pg (25.0-34.0) L 05/23/25 00:11 MCHC 31.3 g/dL (32.0-36.0) L 05/23/25 00:11 RDW Std Deviation 51.5 fL (36.4-46.3) H 05/23/25 00:11 RDW Coeff of Alex 21.1 % (11.5-14.5) H 05/23/25 00:11 Plt Count 278 K/uL (130-400) 05/23/25 00:11 MPV 10.6 fL (9.4-12.4) 05/23/25 00:11 Immature Gran % (Auto) 0.4 % 05/23/25 00:11 Neut % (Auto) 64.9 % 05/23/25 00:11 Lymph % (Auto) 19.7 % 05/23/25 00:11 [place] % (Auto) 12.3 % 05/23/25 00:11 Eos % (Auto) 2.3 % 05/23/25 00:11 Baso % (Auto) 0.4 % 05/23/25 00:11 Neut # (Auto) 4.82 K/uL (1.40-6.50) 05/23/25 00:11 Lymph # (Auto) 1.46 K/uL (1.20-3.40) 05/23/25 00:11 [place] # (Auto) 0.91 K/uL (0.11-0.59) H 05/23/25 00:11 Eos # (Auto) 0.17 K/uL (0.00-0.50) 05/23/25 00:11 Baso # (Auto) 0.03 K/uL (0.00-0.20) 05/23/25 00:11 Immature Gran # (Auto) 0.03 K/uL (0.01-0.20) 05/23/25 00:11 Polychromasia 1+ 05/23/25 00:11 Anisocytosis Present 05/23/25 00:11 Echinocytes 2+ 05/23/25 00:11 VBG pH 7.37 (7.36-7.41) 05/23/25 01:55 VBG pCO2 50 mmHg (38-50) 05/23/25 01:55 VBG pO2 24 mmHg 05/23/25 01:55 VBG HCO3 29 mmol/L 05/23/25 01:55 VBG O2 Saturation < 60.0 % 05/23/25 01:55 VBG Base Excess 2.7 mEq/L 05/23/25 01:55 Sodium 138 mmol/L (136-145) 05/23/25 00:11 Potassium 4.7 mmol/L (3.5-5.1) 05/23/25 00:11 Chloride 105 mmol/L (98-107) 05/23/25 00:11 Carbon Dioxide 27 mmol/L (21-32) 05/23/25 00:11 Anion Gap 6 (3-11) 05/23/25 00:11 BUN 20 mg/dl (6-23) 05/23/25 00:11 Creatinine 0.69 mg/dl (0.6-1.4) 05/23/25 00:11 Est Cr Clr Drug Dosing 128.5 ml/min 05/23/25 00:11 eGFR 105.29 05/23/25 00:11 BUN/Creatinine Ratio 29.0 (10-20) H 05/23/25 00:11 Glucose 102 mg/dl (70-99(Fasting)) H 05/23/25 00:11 Lactate 2.4 mmol/L (0.4-2.0) H* 05/23/25 01:20 Calcium 10.0 mg/dl (8.6-10.3) 05/23/25 00:11 Magnesium 2.1 mg/dl (1.7-2.4) 05/23/25 00:11 Total Bilirubin 0.9 mg/dl (0.2-1.0) 05/23/25 00:11 AST 21 U/L (13-39) 05/23/25 00:11 ALT 72 U/L (7-52) H 05/23/25 00:11 Alkaline Phosphatase 98 U/L (34-104) 05/23/25 00:11 Troponin I High Sens 50.3 pg/ml (0-20) H* 05/23/25 00:11 B-Natriuretic Peptide 2600 pg/ml (0-100) H 05/23/25 00:11 Total Protein 6.7 gm/dl (6.0-8.3) 05/23/25 00:11 Albumin 3.8 gm/dl (3.4-5.0) 05/23/25 00:11 Globulin 2.9 gm/dl (2.5-4.0) 05/23/25 00:11 Albumin/Globulin Ratio 1.3 (0.9-2) 05/23/25 00:11 Procalcitonin < 0.02 ng/ml (0-0.5) 05/23/25 00:11 Adenovirus (PCR) Not Detected (NotDetected) 05/23/25 00:11 B. pertussis DNA (PCR) Not Detected (NotDetected) 05/23/25 00:11 B.parapertussis DNA PCR Not Detected (NotDetected) 05/23/25 00:11 C. pneumoniae DNA (PCR) Not Detected (NotDetected) 05/23/25 00:11 Coronavirus OC43 (PCR) Not Detected (NotDetected) 05/23/25 00:11 Coronavirus HKU1 (PCR) Not Detected (NotDetected) 05/23/25 00:11 Coronavirus 229E (PCR) Not Detected (NotDetected) 05/23/25 00:11 SARS-CoV-2 (PCR) Not Detected (NotDetected) 05/23/25 00:11 Coronavirus NL63 (PCR) Not Detected (NotDetected) 05/23/25 00:11 Human Metapneumovir PCR Not Detected (NotDetected) 05/23/25 00:11 Influenza Type A (PCR) Not Detected (NotDetected) 05/23/25 00:11 Influenza Type B (PCR) Not Detected (NotDetected) 05/23/25 00:11 M. pneumoniae (PCR) Not Detected (NotDetected) 05/23/25 00:11 Parainfluenza 1 (PCR) Not Detected (NotDetected) 05/23/25 00:11 Parainfluenza 2 (PCR) Not Detected (NotDetected) 05/23/25 00:11 Parainfluenza 3 (PCR) Not Detected (NotDetected) 05/23/25 00:11 Parainfluenza 4 (PCR) Not Detected (NotDetected) 05/23/25 00:11 RSV (PCR) Not Detected (NotDetected) 05/23/25 00:11 Entero/Rhino (PCR) Not Detected (NotDetected) 05/23/25 00:11 Impressions Chest X-Ray 05/23/25 00:15 EXAM: XR chest 1V portable CLINICAL HISTORY: Dyspnea TECHNIQUE: An X-ray image of the chest is obtained in AP projection. COMPARISON: 05/14/2025 CR FINDINGS: Pulmonary Parenchyma: Newly developed bilateral lower lung zones hazy opacities. Unchanged bilateral prominent vascular markings. No evidence of consolidation or collapse. No evidence of pleural effusion or pleural thickening. Heart and Mediastinum: Unchanged cardiomegaly and prominent size of both hilar vascular shadows. No hilar or mediastinal lymphadenopathy. Atherosclerotic changes of the aortic arch. Bony Thorax: Bony thorax appears intact without fractures or deformities. There is severe bilateral glenohumeral osteoarthritis (Unchanged). Soft Tissues: Soft tissues overlying the chest wall are unremarkable. IMPRESSION: Newly developed bilateral lower lung zone hazy opacities, on a background of unchanged cardiomegaly and prominent pulmonary vascular markings, findings are in keeping with worsening pulmonary edema/congestion; clinical correlation and follow-up are advised. Electronically signed by Marshall Araujo 05-23-2025 02:04 AM ECG Additional Comments: ECG. Atrial fibrillation with a rate of 87. Right axis deviation. No significant change was found. Code Status & VTE Plan VTE Prophylaxis Plan VTE Prophylaxis will be ordered: Yes
--- NOTE | 2025-05-23 04:47 | CT Scan Report ---
EXAM: CT chest diagnostic wo con CLINICAL HISTORY: sob. infiltrates vs pul edema TECHNIQUE: Contiguous axial images were obtained from the neck base through the upper abdomen without contrast. In addition, sagittal and coronal reconstructions were performed to potentially increase the sensitivity for the detection of disease. CT scan was performed according to ALARA (as low as reasonably achievable). COMPARISON: 04/25/2025 13:22:00 [employer]. FINDINGS: Cardiomegaly. Mild bilateral pleural effusion with basal subsegmental collapse of both lower lobes are seen Diffuse smooth interlobular septal thickening are noted involving bilateral lungs - suggestive of pulmonary congestion /edema About 4 mm sized nodule is noted involving posterior segment of right upper lobe. Soft tissue nodules seen along pleural surface adjacent to pleural effusion in both lower lobes- stable. Few scattered nodular ground-glass opacities are also noted in both lungs - sequelae of prior infection. The central airways are patent. Evaluation of the mediastinum and jayne is limited due to the lack of intravenous contrast. No axillary or mediastinal adenopathy is identified. The thyroid is unremarkable. The aorta, and pulmonary arteries are of normal size and configuration. There are coronary artery and aortic atherosclerotic calcifications. No pericardial effusion is identified. Imaged portions of the upper abdomen are unremarkable. No aggressive appearing osseous lesions are identified. Bilateral gleno-humeral joint osteoarthritis. Old healed fracture with callus formations are noted involving bilateral multiple ribs. Chronic compression changes in T4, T10 and L1 vertebral bodies. IMPRESSION: Cardiomegaly. Mild bilateral pleural effusion with basal subsegmental collapse of both lower lobes are seen-stable. Diffuse smooth interlobular septal thickening are noted involving bilateral lungs - suggestive of pulmonary congestion /edema-stable. About 4 mm sized nodule is noted involving posterior segment of right upper lobe.-stable. Few scattered nodular ground-glass opacities are also noted in both lungs - sequelae of prior infection.- clinical correlation is suggested density reduced as compared to prior study. Electronically signed by Serafin Meng 05-23-2025 04:46 AM
[2025-05-23] MEDS ORDERED: ACETAMINOPHEN 325 MG TAB PO PRN (06:35)
[2025-05-23] MEDS ORDERED: POLYETHYLENE (MIRALAX) 17 GM PACK PO PRN (06:35)
[2025-05-23] MEDS ORDERED: NITROGLYCERIN SL 0.4 MG/TAB TAB SL PRN (06:35)
[2025-05-23 07:14] LABS: Hematocrit (blood only) 42.2 % (42.0-52.0); Hemoglobin 13.0 g/dL (14.0-18.0); Mean Corpuscular Hemoglobin 23.3 pg (25.0-34.0); Mean Corpuscular Volume 75.6 fL (80.0-100.0); Platelet Count 271 K/uL (130-400); RDW Standard Deviation 52.0 fL (36.4-46.3); Red Blood Count 5.58 M/uL (4.70-6.10); White Blood Count 8.12 K/ul (4.8-10.8)
[2025-05-23] MEDS: PIPERACILLIN/TAZOBACTAM 4.5 GM/100 ML BAG IV SCH (07:16)
[2025-05-23 07:42] LABS: Anion Gap 10.0 (3-11); Blood Urea Nitrogen 24.0 mg/dl (6-23); Calcium 10.1 mg/dl (8.6-10.3); Carbon Dioxide 26.0 mmol/L (21-32); Chloride 103.0 mmol/L (98-107); Creatinine Clr Calc Pharmacy 89.5 ml/min; Glucose 144.0 mg/dl (70-99(Fasting)); Magnesium 1.9 mg/dl (1.7-2.4); Potassium 4.4 mmol/L (3.5-5.1); Sodium 139.0 mmol/L (136-145)
[2025-05-23 08:01] LABS: Anisocytosis Present; Immature Granulocytes # (auto) 0.03 K/uL (0.01-0.20); Immature Granulocytes % (auto) 0.4 %; Microcytosis Present; Ovalocytes 2+; Polychromasia 1+
[2025-05-23] MEDS: MAGNESIUM OXIDE 400 MG TAB PO SCH (08:32)
[2025-05-23] MEDS: DOXYCYCLINE HYCLATE 100 MG CAP PO SCH (08:32)
[2025-05-23] MEDS: DIGOXIN 0.125 MG TAB PO SCH (08:33)
[2025-05-23] MEDS: VALSARTAN/SACUBITRIL 26/24MG TAB PO SCH (08:33)
[2025-05-23] MEDS: METOPROLOL SUCC 50MG EXT REL TAB PO SCH (08:33)
[2025-05-23] MEDS: SPIRONOLACTONE 12.5 MG TAB PO SCH (08:34)
[2025-05-23] MEDS: FLUTICASONE FUROATE 100MCG 14 PUFFS/INHALER INH SCH (08:36)
[2025-05-23] MEDS: UMECLIDINIUM/VILANTEROL 62.5/25MCG 7 PUFFS/INHALER INH SCH (08:36)
[2025-05-23] MEDS: EMPAGLIFLOZIN 25 MG TAB PO SCH (08:37)
[2025-05-23] MEDS: FUROSEMIDE 40 MG/4 ML VIAL IV SCH (08:37)
[2025-05-23] MEDS: ASPIRIN 81 MG ECTAB PO SCH (08:38)
[2025-05-23] MEDS: APIXABAN 5 MG TABLET PO SCH (08:38)
[2025-05-23] MEDS: CHOLECALCIFEROL 10 MCG (400 UNITS) TAB PO SCH (08:38)
[2025-05-23] MEDS: ATORVASTATIN 10 MG TAB PO SCH (08:38)
[2025-05-23] MEDS: DIVALPROEX EXTENDED RELEASE 250 MG TABCR PO SCH (08:39)
[2025-05-23] MEDS ORDERED: NON-FORMULARY MEDICATION (Fluticasone-Umeclidin-Vilanter [Trelegy Ellipta] 100-62.5-25 mcg INH SCH (09:00)
--- NOTE | 2025-05-23 11:40 | Cardiology Consultation ---
Date of Consultation May 23, 2025 Assessment & Plan (1) SOB (shortness of breath): (2) Pneumonia: (3) Heart failure with reduced ejection fraction: (4) Elevated brain natriuretic peptide (BNP) level: (5) Persistent atrial fibrillation: Plan -HR and BP well controlled -Does not appear significantly volume overloaded on physical exam but does now have some mild JVD noted -BNP more elevated now than previous admission will adjust diuretic therapy -Still has some evidence of infiltrative changes with elevated lactate so likely some degree of underlying respiratory illness currently contributing to his issues also -Continue antibiotic therapy for attending service -Recommend increasing furosemide to 40 mg twice daily -will likely need at least low dose loop diuretic at discharge, he was previously well-managed on furosemide 40 mg daily so would restart this at discharge -continue apixaban, digoxin, Toprol, Jardiance, ASA, Entresto, atorvastatin, and Aldactone Case discussed with Dr. Hernández. Please see attestation for additional recommendations. PATRICK Garay Department of Cardiology, [facility] This chart was completed in part utilizing Speech Voice Recognition Software. Grammatical errors, random word insertions, pronoun errors, and incomplete sentences are an occasional consequence of this system due to software limitations, ambient noise, and hardware issues. Any formal questions or concerns about the content, text, or information contained within the body of this dictation should be directly addressed to the provider for clarification. Supervising Physician Co-Signing Physician Notes Patient seen and examined. Past medical history, surgical history, social history and family history have been reviewed. The medical record and all the above studies have been reviewed. Case DW SHAHEED including management. IMP: Acute HFrEF B/L Pleural effusion Severe NICM with LVEF of about 20% Atrial Fib DM Recommendations: Diurese as indicated correct and f/u electrolytes keep K between 4 and 4.5 and Mg between 2 and 2.5 when on Digoxin f/u renal function continue anticoagulation - Eliquis continue digoxin, Toprol xl, Entresto, atorvastatin, Aldactone GDMT for HFrEF keeping HR between 60 to 100 BPM and systolic BP between 100-140 mmHg avoid hypovolemia keep patient euvolemic keep LE elevated when sitting daily weights 1.5 L / 24 hr fluid restriction strict I&Os salt restriction counseling History of Present Illness Reason for Consultation: CHF Requesting Physician: Hospitalist Attending Physician: Jeffrey Clark MD History of Present Illness 60 year old male seen in consultation today in regard to acute on chronic systolic CHF in the setting of pneumonia. He was admitted earlier this month with A-fib RVR along with decompensated systolic CHF. At the time his ejection fraction was found to be severely reduced. At that time he was found a had been off of his cardiac medications for a period of time which was felt to be a contributing factor. Reportedly had been feeling somewhat better at the time of discharge and started to have worsening shortness of breath 2 days ago. He was not very active and even with minimal activity he was having orthopnea and shortness of breath prompting him to come back to the ER yesterday at the behest of his significant other. Allergies Allergy/AdvReac Type Severity Reaction Status Date / Time No Known Allergies Allergy Verified 12/29/24 08:57 Home Medications Medication Instructions Recorded Confirmed Type nitroglycerin 0.4 mg sublingual 0.4 mg sublingual UD PRN Chest Pain 08/27/21 05/23/25 History tablet cholecalciferol (vitamin D3) 10 10 mcg PO QAM #30 caps 12/04/23 05/23/25 Rx mcg (400 unit) capsule (Vitamin D3) duloxetine 30 mg capsule,delayed 30 mg PO QAM #30 caps 12/04/23 05/23/25 Rx release omeprazole 40 mg capsule,delayed 40 mg PO DAILYBB #30 caps 12/04/23 05/23/25 Rx release spironolactone 25 mg tablet 12.5 mg (1/2 x 25 mg) PO QAM #15 12/04/23 05/23/25 Rx tabs sulfasalazine 500 mg tablet 1,000 mg (2 x 500 mg) PO BID #120 12/04/23 05/23/25 Rx tabs aspirin 81 mg tablet 81 mg PO QAM 12/25/24 05/23/25 History atorvastatin 10 mg tablet 10 mg PO QAM 12/25/24 05/23/25 History divalproex 250 mg tablet,extended 250 mg PO QAM 12/25/24 05/23/25 History release 24 hr empagliflozin 25 mg tablet 25 mg PO QAM 12/25/24 05/23/25 History (Jardiance) fluticasone fur. 100 mcg-umeclid 1 ea inhalation QAM 12/25/24 05/23/25 History 62.5 mcg-vilant 25 mcg inhalat.powder (Trelegy Ellipta) magnesium oxide 400 mg (241.3 mg 400 mg PO QAM 12/25/24 05/23/25 History magnesium) tablet oxycodone-acetaminophen 10 mg-325 1 tab PO BID PRN Pain,severe #15 12/30/24 05/23/25 Rx mg tablet tabs apixaban 5 mg tablet (Eliquis) 5 mg PO AMHS 05/13/25 05/23/25 History metoprolol succinate 50 mg 50 mg PO Q12 05/13/25 05/23/25 History tablet,extended release 24 hr digoxin 125 mcg (0.125 mg) tablet 0.125 mcg (0.001 x 125 mcg (0.125 05/17/25 05/23/25 Rx mg)) PO QAM #30 tabs sacubitril 24 mg-valsartan 26 mg 0.5 tab PO AMHS #0 tabs 05/17/25 05/23/25 Rx tablet (Entresto) furosemide 20 mg tablet 20 mg PO QAM 05/23/25 05/23/25 History prednisone 5 mg tablet 7.5 mg PO QAM 05/23/25 05/23/25 History Patient History Medical History Chronic heart failure with preserved ejection fraction (HFpEF) Heart failure with improved ejection fraction (HFimpEF) Medical non-compliance COPD (chronic obstructive pulmonary disease) History of osteomyelitis ASCVD (arteriosclerotic cardiovascular disease) Chronic atrial fibrillation Dyslipidemia, goal LDL below 70 Erectile dysfunction Tobacco use disorder Surgical History History of cardiac cath History of colonoscopy Hx of tonsillectomy Family History Other Heart disease Hypertension Social History Smoking Status: Former smoker Tobacco Type: Cigarettes Cigarettes Per Day: 5; Second Hand Exposure: No; Do You Dip or Chew Tobacco: No; Tobacco Cessation Education Requested by Patient: No Hx Alcohol Use: No Hx Substance Use: No Preferred Language: Slovak Communication Ability: Effective Pay Agent Required: No Beliefs That Will Affect Care: None Current Living Situation: Significant Other Current Living Situation Comment: Lives at home with girlfrienny Hardy, & their child Danica Other Information That Helps Us Care for You: No Feels Safe at Home: Yes Safety Concerns: Feels Safe At This Time Assistive Devices: Cane and Glasses Review of Systems Review of Systems: All systems reviewed & are unremarkable except as noted in HPI & below Physical Exam Constitutional: WD/WN, vitals as above well developed and well nourished; no acute distress and not ill appearing Eyes: PERRL, conjunctivae normal, anicteric sclerae Neck: trachea midline, no thyromegaly Respiratory: normal respiratory effort and able to speak in complete sentences; no respiratory distress Auscultation: + diminished lung sounds Cardiovascular: Rate/Rhythm: regular rate and + irregularly irregular Heart Sounds: + murmur Vessels: + JVD Gastrointestinal (Abdomen): normal bowel sounds, soft, nontender, no hepatosplenomegaly Musculoskeletal: no cyanosis or clubbing, extremities motor strength 5/5 Skin: no rashes, warm and dry Psychiatric: A+Ox3, euthymic affect Results & Data Vital Signs (Past 12 Hours) Vital Signs Temp Pulse Pulse Resp BP BP Pulse Ox 05/23/25 08:42 96 H 19 123/78 96 05/23/25 08:33 98 H 05/23/25 07:22 05/23/25 07:22 79 18 114/83 96 05/23/25 06:59 96 H 05/23/25 06:36 95 H 23 108/86 95 05/23/25 05:30 99 H 15 117/75 95 05/23/25 05:00 109 H 16 116/74 95 05/23/25 04:30 108 H 21 111/68 92 05/23/25 04:21 99 H 20 95 05/23/25 03:30 109 H 20 129/101 H 94 05/23/25 03:00 100 H 18 129/95 94 05/23/25 02:30 100 H 22 143/99 H 05/23/25 02:00 87 20 145/107 H 05/23/25 01:30 93 H 20 135/110 H 05/23/25 01:00 89 15 137/107 H 95 05/23/25 00:43 95 H 05/23/25 00:15 98 05/23/25 00:15 36.5 C 82 20 147/93 H 98 05/23/25 00:15 Pulse Ox O2 Del Method O2 Del Method O2 Flow Rate 05/23/25 08:42 Room Air 05/23/25 08:33 05/23/25 07:22 95 Room Air 05/23/25 07:22 Room Air 05/23/25 06:59 05/23/25 06:36 05/23/25 05:30 05/23/25 05:00 05/23/25 04:30 05/23/25 04:21 05/23/25 03:30 05/23/25 03:00 05/23/25 02:30 05/23/25 02:00 05/23/25 01:30 05/23/25 01:00 05/23/25 00:43 05/23/25 00:15 Room Air 0 05/23/25 00:15 Room Air 05/23/25 00:15 Room Air Laboratory Results Cardiac Enzymes 05/23/25 05/23/25 Range/Units 00:11 02:09 AST 21 (13-39) U/L Troponin I High Sens 50.3 H* 52.9 H* (0-20) pg/ml B-Natriuretic Peptide 2600 H (0-100) pg/ml Coagulation 05/23/25 Range/Units 00:11 B-Natriuretic Peptide 2600 H (0-100) pg/ml CBC 05/23/25 05/23/25 Range/Units 00:11 06:54 WBC 7.42 8.12 (4.8-10.8) K/ul RBC 5.48 5.58 (4.70-6.10) M/uL Hgb 12.9 L 13.0 L (14.0-18.0) g/dL Hct 41.2 L 42.2 (42.0-52.0) % Plt Count 278 271 (130-400) K/uL Neut # (Auto) 4.82 7.56 H (1.40-6.50) K/uL Lymph # (Auto) 1.46 0.33 L (1.20-3.40) K/uL [place] # (Auto) 0.91 H 0.18 (0.11-0.59) K/uL Eos # (Auto) 0.17 0.01 (0.00-0.50) K/uL Baso # (Auto) 0.03 0.01 (0.00-0.20) K/uL Comprehensive Metabolic Panel 05/23/25 05/23/25 Range/Units 00:11 06:54 Sodium 138 139 (136-145) mmol/L Potassium 4.7 4.4 (3.5-5.1) mmol/L Chloride 105 103 (98-107) mmol/L Carbon Dioxide 27 26 (21-32) mmol/L BUN 20 24 H (6-23) mg/dl Creatinine 0.69 0.99 D (0.6-1.4) mg/dl Glucose 102 H 144 H (70-99(Fasting)) mg/dl Calcium 10.0 10.1 (8.6-10.3) mg/dl AST 21 (13-39) U/L ALT 72 H (7-52) U/L Alkaline Phosphatase 98 (34-104) U/L Total Protein 6.7 (6.0-8.3) gm/dl Albumin 3.8 (3.4-5.0) gm/dl Intake and Output 05/22/25 05/23/25 05/23/25 22:59 06:59 14:59 Intake Total 200 / 200 Output Total 1700 / 1700 Balance -1500 / -1500 Intake: IV 200 / 200 Doxycycline Hyclate 100 mg In 100 / 100 100 ml @ 50 mls/hr IV NOW STA Rx#:[id number] Piperacillin/Tazobactam 4.5 gm 100 / 100 In 100 ml @ 200 mls/hr IV NOW ONE Rx#:[id number] Output: Urine 1700 / 1700 Other: Weight 95.9 kg Weight Measurement Method Built in [facility] Diagnostic Findings Laboratory Results WBC 8.12 K/ul (4.8-10.8) 05/23/25 06:54 RBC 5.58 M/uL (4.70-6.10) 05/23/25 06:54 Hgb 13.0 g/dL (14.0-18.0) L 05/23/25 06:54 Hct 42.2 % (42.0-52.0) 05/23/25 06:54 MCV 75.6 fL (80.0-100.0) L 05/23/25 06:54 MCH 23.3 pg (25.0-34.0) L 05/23/25 06:54 MCHC 30.8 g/dL (32.0-36.0) L 05/23/25 06:54 RDW Std Deviation 52.0 fL (36.4-46.3) H 05/23/25 06:54 RDW Coeff of Alex 20.9 % (11.5-14.5) H 05/23/25 06:54 Plt Count 271 K/uL (130-400) 05/23/25 06:54 MPV 10.3 fL (9.4-12.4) 05/23/25 06:54 Immature Gran % (Auto) 0.4 % 05/23/25 06:54 Neut % (Auto) 93.1 % 05/23/25 06:54 Lymph % (Auto) 4.1 % 05/23/25 06:54 [place] % (Auto) 2.2 % 05/23/25 06:54 Eos % (Auto) 0.1 % 05/23/25 06:54 Baso % (Auto) 0.1 % 05/23/25 06:54 Neut # (Auto) 7.56 K/uL (1.40-6.50) H 05/23/25 06:54 Lymph # (Auto) 0.33 K/uL (1.20-3.40) L 05/23/25 06:54 [place] # (Auto) 0.18 K/uL (0.11-0.59) 05/23/25 06:54 Eos # (Auto) 0.01 K/uL (0.00-0.50) 05/23/25 06:54 Baso # (Auto) 0.01 K/uL (0.00-0.20) 05/23/25 06:54 Immature Gran # (Auto) 0.03 K/uL (0.01-0.20) 05/23/25 06:54 Polychromasia 1+ 05/23/25 06:54 Anisocytosis Present 05/23/25 06:54 Microcytosis Present 05/23/25 06:54 Ovalocytes 2+ 05/23/25 06:54 Echinocytes 2+ 05/23/25 00:11 VBG pH 7.37 (7.36-7.41) 05/23/25 01:55 VBG pCO2 50 mmHg (38-50) 05/23/25 01:55 VBG pO2 24 mmHg 05/23/25 01:55 VBG HCO3 29 mmol/L 05/23/25 01:55 VBG O2 Saturation < 60.0 % 05/23/25 01:55 VBG Base Excess 2.7 mEq/L 05/23/25 01:55 Sodium 139 mmol/L (136-145) 05/23/25 06:54 Potassium 4.4 mmol/L (3.5-5.1) 05/23/25 06:54 Chloride 103 mmol/L (98-107) 05/23/25 06:54 Carbon Dioxide 26 mmol/L (21-32) 05/23/25 06:54 Anion Gap 10 (3-11) 05/23/25 06:54 BUN 24 mg/dl (6-23) H 05/23/25 06:54 Creatinine 0.99 mg/dl (0.6-1.4) D 05/23/25 06:54 Est Cr Clr Drug Dosing 89.5 ml/min 05/23/25 06:54 eGFR 86.67 05/23/25 06:54 BUN/Creatinine Ratio 24.2 (10-20) H 05/23/25 06:54 Glucose 144 mg/dl (70-99(Fasting)) H 05/23/25 06:54 Lactate 2.8 mmol/L (0.4-2.0) H* 05/23/25 04:12 Calcium 10.1 mg/dl (8.6-10.3) 05/23/25 06:54 Magnesium 1.9 mg/dl (1.7-2.4) 05/23/25 06:54 Total Bilirubin 0.9 mg/dl (0.2-1.0) 05/23/25 00:11 AST 21 U/L (13-39) 05/23/25 00:11 ALT 72 U/L (7-52) H 05/23/25 00:11 Alkaline Phosphatase 98 U/L (34-104) 05/23/25 00:11 Troponin I High Sens 52.9 pg/ml (0-20) H* 05/23/25 02:09 B-Natriuretic Peptide 2600 pg/ml (0-100) H 05/23/25 00:11 Total Protein 6.7 gm/dl (6.0-8.3) 05/23/25 00:11 Albumin 3.8 gm/dl (3.4-5.0) 05/23/25 00:11 Globulin 2.9 gm/dl (2.5-4.0) 05/23/25 00:11 Albumin/Globulin Ratio 1.3 (0.9-2) 05/23/25 00:11 Procalcitonin < 0.02 ng/ml (0-0.5) 05/23/25 00:11 Nasal Screen MRSA (PCR) Positive (Negative) A 05/23/25 Unknown Adenovirus (PCR) Not Detected (NotDetected) 05/23/25 00:11 B. pertussis DNA (PCR) Not Detected (NotDetected) 05/23/25 00:11 B.parapertussis DNA PCR Not Detected (NotDetected) 05/23/25 00:11 C. pneumoniae DNA (PCR) Not Detected (NotDetected) 05/23/25 00:11 Coronavirus OC43 (PCR) Not Detected (NotDetected) 05/23/25 00:11 Coronavirus HKU1 (PCR) Not Detected (NotDetected) 05/23/25 00:11 Coronavirus 229E (PCR) Not Detected (NotDetected) 05/23/25 00:11 SARS-CoV-2 (PCR) Not Detected (NotDetected) 05/23/25 00:11 Coronavirus NL63 (PCR) Not Detected (NotDetected) 05/23/25 00:11 Human Metapneumovir PCR Not Detected (NotDetected) 05/23/25 00:11 Influenza Type A (PCR) Not Detected (NotDetected) 05/23/25 00:11 Influenza Type B (PCR) Not Detected (NotDetected) 05/23/25 00:11 M. pneumoniae (PCR) Not Detected (NotDetected) 05/23/25 00:11 Parainfluenza 1 (PCR) Not Detected (NotDetected) 05/23/25 00:11 Parainfluenza 2 (PCR) Not Detected (NotDetected) 05/23/25 00:11 Parainfluenza 3 (PCR) Not Detected (NotDetected) 05/23/25 00:11 Parainfluenza 4 (PCR) Not Detected (NotDetected) 05/23/25 00:11 RSV (PCR) Not Detected (NotDetected) 05/23/25 00:11 Entero/Rhino (PCR) Not Detected (NotDetected) 05/23/25 00:11 Impressions Chest X-Ray 05/23/25 00:15 EXAM: XR chest 1V portable CLINICAL HISTORY: Dyspnea TECHNIQUE: An X-ray image of the chest is obtained in AP projection. COMPARISON: 05/14/2025 CR FINDINGS: Pulmonary Parenchyma: Newly developed bilateral lower lung zones hazy opacities. Unchanged bilateral prominent vascular markings. No evidence of consolidation or collapse. No evidence of pleural effusion or pleural thickening. Heart and Mediastinum: Unchanged cardiomegaly and prominent size of both hilar vascular shadows. No hilar or mediastinal lymphadenopathy. Atherosclerotic changes of the aortic arch. Bony Thorax: Bony thorax appears intact without fractures or deformities. There is severe bilateral glenohumeral osteoarthritis (Unchanged). Soft Tissues: Soft tissues overlying the chest wall are unremarkable. IMPRESSION: Newly developed bilateral lower lung zone hazy opacities, on a background of unchanged cardiomegaly and prominent pulmonary vascular markings, findings are in keeping with worsening pulmonary edema/congestion; clinical correlation and follow-up are advised. Electronically signed by Marshall Araujo 05-23-2025 02:[address] 05/23/25 03:29 EXAM: CT chest diagnostic wo con CLINICAL HISTORY: sob. infiltrates vs pul edema TECHNIQUE: Contiguous axial images were obtained from the neck base through the upper abdomen without contrast. In addition, sagittal and coronal reconstructions were performed to potentially increase the sensitivity for the detection of disease. CT scan was performed according to ALARA (as low as reasonably achievable). 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 FINDINGS: Cardiomegaly. Mild bilateral pleural effusion with basal subsegmental collapse of both lower lobes are seen Diffuse smooth interlobular septal thickening are noted involving bilateral lungs - suggestive of pulmonary congestion /edema About 4 mm sized nodule is noted involving posterior segment of right upper lobe. Soft tissue nodules seen along pleural surface adjacent to pleural effusion in both lower lobes- stable. Few scattered nodular ground-glass opacities are also noted in both lungs - sequelae of prior infection. The central airways are patent. Evaluation of the mediastinum and jayne is limited due to the lack of intravenous contrast. No axillary or mediastinal adenopathy is identified. The thyroid is unremarkable. The aorta, and pulmonary arteries are of normal size and configuration. There are coronary artery and aortic atherosclerotic calcifications. No pericardial effusion is identified. Imaged portions of the upper abdomen are unremarkable. No aggressive appearing osseous lesions are identified. Bilateral gleno-humeral joint osteoarthritis. Old healed fracture with callus formations are noted involving bilateral multiple ribs. Chronic compression changes in T4, T10 and L1 vertebral bodies. IMPRESSION: Cardiomegaly. Mild bilateral pleural effusion with basal subsegmental collapse of both lower lobes are seen-stable. Diffuse smooth interlobular septal thickening are noted involving bilateral lungs - suggestive of pulmonary congestion /edema-stable. About 4 mm sized nodule is noted involving posterior segment of right upper lobe.-stable. Few scattered nodular ground-glass opacities are also noted in both lungs - sequelae of prior infection.- clinical correlation is suggested density reduced as compared to prior study. Electronically signed by Serafin Meng 05-23-2025 04:46 AM Medications Administered Current Inpatient Medications Acetaminophen (Acetaminophen 325 Mg Tab) 650 mg PO Q4H PRN PRN Reason: Pain or Fever Stop: 06/22/25 06:34 Apixaban (Apixaban 5 Mg Tablet) 5 mg PO [facility] Stop: 06/22/25 08:59 Last Admin: 05/23/25 08:38 Dose: 5 mg Aspirin (Aspirin 81 Mg Ectab) [address] [facility] Stop: 06/22/25 08:59 Last Admin: 05/23/25 08:38 Dose: 81 mg Atorvastatin Calcium (Atorvastatin 10 Mg Tab) [address] [facility] Stop: 06/22/25 08:59 Last Admin: 05/23/25 08:38 Dose: 10 mg Digoxin (Digoxin 0.125 Mg Tab) 0.[address] [facility] Stop: 06/22/25 08:59 Last Admin: 05/23/25 08:33 Dose: 0.125 mg Divalproex Sodium (Divalproex Extended Release 250 Mg Tabcr) [address] [facility] Stop: 06/22/25 08:59 Last Admin: 05/23/25 08:39 Dose: 250 mg Doxycycline Hyclate (Doxycycline Hyclate 100 Mg Cap) 100 mg PO BID [facility] Stop: 05/28/25 08:59 Last Admin: 05/23/25 08:32 Dose: 100 mg Duloxetine HCl (Duloxetine Hcl 30 Mg Cap) 30 mg PO QAM [facility] Stop: 06/22/25 08:59 Last Admin: 05/23/25 08:39 Dose: 30 mg Empagliflozin (Empagliflozin 25 Mg Tab) 25 mg PO QAM [facility] Stop: 06/22/25 08:59 Last Admin: 05/23/25 08:37 Dose: 25 mg Fluticasone Furoate (Fluticasone Furoate 100mcg 14 Puffs/Inhaler) 1 puffs INH DAILY [facility] Stop: 06/22/25 08:59 Last Admin: 05/23/25 08:36 Dose: 1 puffs Furosemide (Furosemide 40 Mg/4 Ml Vial) 40 mg IV DAILY [facility] Stop: 06/22/25 08:59 Last Admin: 05/23/25 08:37 Dose: 40 mg Piperacillin Sod/Tazobactam Sod (Zosyn) 4.5 gm in 100 mls @ 25 mls/hr IV Q8H [facility]; Protocol Stop: 05/28/25 07:59 Last Admin: 05/23/25 07:16 Dose: 25 mls/hr Magnesium Oxide (Magnesium Oxide 400 Mg Tab) [facility] [facility] [place] Stop: 06/22/25 08:59 Last Admin: 05/23/25 08:32 Dose: 400 mg Metoprolol Succinate (Metoprolol Succ 50mg Ext Rel Tab) 50 mg PO Q12 [facility] Stop: 06/22/25 08:59 Last Admin: 05/23/25 08:33 Dose: 50 mg Nitroglycerin (Nitroglycerin Sl 0.4 Mg/Tab Tab) 0.4 mg SL Q5M PRN PRN Reason: Chest Pain Stop: 06/22/25 06:34 Oxycodone/Acetaminophen (Oxycodone/Acetaminophen 10-325 Tab) 1 tab PO BID PRN PRN Reason: Pain,severe Stop: 06/06/25 06:34 Pantoprazole Sodium (Pantoprazole 40 Mg Tab) 40 mg PO DAILYBB [facility] Stop: 06/22/25 06:29 Last Admin: 05/23/25 07:07 Dose: 40 mg Polyethylene Glycol (Polyethylene (Miralax) 17 Gm Pack) 17 gm PO DAILY PRN PRN Reason: Constipation Stop: 06/22/25 06:34 Prednisone (Prednisone 2.5 Mg Tab) 7.5 mg PO QAM [facility] Stop: 06/22/25 08:59 Last Admin: 05/23/25 08:33 Dose: 7.5 mg Sacubitril/Valsartan (Valsartan/Sacubitril 26/24mg Tab) 0.5 tab PO AMHS [facility] Stop: 06/22/25 08:59 Last Admin: 05/23/25 08:33 Dose: 0.5 tab Spironolactone (Spironolactone 12.5 Mg Tab) 12.5 mg PO QAM [facility] Stop: 06/22/25 08:59 Last Admin: 05/23/25 08:34 Dose: 12.5 mg Sulfasalazine (Sulfasalazine 500 Mg Tablet) 1,000 mg PO BID [facility] Stop: 06/22/25 08:59 Last Admin: 05/23/25 08:32 Dose: 1,000 mg Umeclidinium/Vilanterol (Umeclidinium/Vilanterol 62.5/25mcg 7 Puffs/Inhaler) 1 puffs INH DAILY [facility] Stop: 06/22/25 08:59 Last Admin: 05/23/25 08:36 Dose: 1 puffs Vitamin D (Cholecalciferol 10 Mcg (400 Units) Tab) 10 mcg PO QAM [facility] Stop: 06/22/25 08:59 Last Admin: 05/23/25 08:38 Dose: 10 mcg PG Care Time/CCT Total # of Minutes Spent Total Time Spent with Patient: Total time spent is greater than 50% in coordination of care (as documented) at patient's floor/unit and/or counseling patient: Coding [place] [address] IN/OBS CONSULT LVL 4,60M Patient Type Established Medical Decision Making Moderate Complexity Diagnoses SOB (shortness of breath) R06.02 Pneumonia J18.9 Heart failure with reduced ejection fraction I50.20 Elevated brain natriuretic peptide (BNP) level R79.89 Persistent atrial fibrillation I48.19
--- NOTE | 2025-05-23 12:00 | Hospitalist Progress Note ---
Date of Service May 23, 2025 Assessment & Plan (1) SOB (shortness of breath): Plan: 60 yo M w/ PMH of rheumatoid arthritis, Raynaud's disease, persistent atrial fibrillation on Eliquis, COPD, systolic and diastolic CHF, A-fib, CAD, PAD, SVT, GERD, hepatitis C virus s/p Rx, depression anxiety, long-term steroid, history of substance abuse presents with shortness of breath for 2-3 days a/w dry cough. Pt denied fever, sore throat. Patient was recently in the hospital for possible cannabinoid induced hyperemesis and acute gastroenteritis and also acute on chronic systolic CHF and rapid A-fib. His medications were adjusted. His echo last admission showed EF of 20 to 25% with global hypokinesis of left ventricle. Patient states he is taking his medications regularly. Acute on chronic systolic and diastolic CHF Possible pneumonia Pt presents w/ sob and dry cough, reports compliance w/ medications. Echo on 05/14/2025 showed EF of 20 to 25%. Severe left ventricular global hypokinesis. Moderate to severe mitral regurgitation. Moderate to severe tricuspid regurgitation. BNP up at 2600, Chest imaging w/ congestion/edema. Given neg procal, no fever and CT chest w/ findings of improving prior infection, less likely pneumonia --> dc antibiotic (zosyn 05/23 and doxy 05/23) once bl cx is neg for 48 hrs. Monitor cough and fever. iv lasix 40 mg daily. FR 1800 ml, monitor Is and Os. Monitor and replete electrolytes. Cardio on board, await eval/recs. 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 DVT prophylaxis: On Eliquis Disposition: Telemetry Full code. Admission and Anticipated Discharge Date Admission Date: May 23, 2025 Subjective Patient was seen and examined at bedside. Patient was lying in bed, on room air, NAD, resting comfortably. Patient reports cough and shortness of breath for few days, reports dry cough. Patient reported some chest pain with cough today morning, no chest pain otherwise. Patient reports eating okay moving bowels okay, denies pain or burning with passing urine. Physical Exam Physical Exam: General- Not in distress Head- atraumatic Eyes- PERRL. ENT- oropharynx clear Neck- supple, no JVD. Lungs- clear to auscultation no wheezing, mild bibasilar crackles Heart- regular rhythm; no murmur, no gallop. Abdomen- normal bowel sounds, soft, nontender, no distension Extremities- mild pretibial edema, no erythema seen Neuro- alert, oriented x 3; PERRL, no facial palsy; no dysarthria; moves extremities Results & Data Results & Data Vital Signs (Past 12 Hours) Vital Signs Temp Pulse Pulse Resp BP BP Pulse Ox 05/23/25 08:42 96 H 19 123/78 96 05/23/25 08:33 98 H 05/23/25 07:22 05/23/25 07:22 79 18 114/83 96 05/23/25 06:59 96 H 05/23/25 06:36 95 H 23 108/86 95 05/23/25 05:30 99 H 15 117/75 95 05/23/25 05:00 109 H 16 116/74 95 05/23/25 04:30 108 H 21 111/68 92 05/23/25 04:21 99 H 20 95 05/23/25 03:30 109 H 20 129/101 H 94 05/23/25 03:00 100 H 18 129/95 94 05/23/25 02:30 100 H 22 143/99 H 05/23/25 02:00 87 20 145/107 H 05/23/25 01:30 93 H 20 135/110 H 05/23/25 01:00 89 15 137/107 H 95 05/23/25 00:43 95 H 05/23/25 00:15 98 05/23/25 00:15 36.5 C 82 20 147/93 H 98 05/23/25 00:15 Pulse Ox O2 Del Method O2 Del Method O2 Flow Rate 05/23/25 08:42 Room Air 05/23/25 08:33 05/23/25 07:22 95 Room Air 05/23/25 07:22 Room Air 05/23/25 06:59 05/23/25 06:36 05/23/25 05:30 05/23/25 05:00 05/23/25 04:30 05/23/25 04:21 05/23/25 03:30 05/23/25 03:00 05/23/25 02:30 05/23/25 02:00 05/23/25 01:30 05/23/25 01:00 05/23/25 00:43 05/23/25 00:15 Room Air 0 05/23/25 00:15 Room Air 05/23/25 00:15 Room Air
[2025-05-24 06:20] LABS: Hematocrit (blood only) 39.0 % (42.0-52.0); Hemoglobin 12.2 g/dL (14.0-18.0); Mean Corpuscular Hemoglobin 23.1 pg (25.0-34.0); Mean Corpuscular Volume 74.0 fL (80.0-100.0); Platelet Count 259 K/uL (130-400); RDW Standard Deviation 50.8 fL (36.4-46.3); Red Blood Count 5.27 M/uL (4.70-6.10); White Blood Count 9.62 K/ul (4.8-10.8)
[2025-05-24 06:50] LABS: Anion Gap 8.0 (3-11); Blood Urea Nitrogen 35.0 mg/dl (6-23); Calcium 9.6 mg/dl (8.6-10.3); Carbon Dioxide 28.0 mmol/L (21-32); Chloride 100.0 mmol/L (98-107); Creatinine Clr Calc Pharmacy 91.2 ml/min; Glucose 102.0 mg/dl (70-99(Fasting)); Magnesium 2.1 mg/dl (1.7-2.4); Potassium 4.1 mmol/L (3.5-5.1); Sodium 136.0 mmol/L (136-145)
[2025-05-24] MEDS: FUROSEMIDE 40 MG/4 ML VIAL IV SCH (08:30)
--- NOTE | 2025-05-24 13:44 | Hospitalist Progress Note ---
Date of Service May 24, 2025 Assessment & Plan (1) SOB (shortness of breath): Plan: 60 yo M w/ PMH of rheumatoid arthritis, Raynaud's disease, persistent atrial fibrillation on Eliquis, COPD, systolic and diastolic CHF, A-fib, CAD, PAD, SVT, GERD, hepatitis C virus s/p Rx, depression anxiety, long-term steroid, history of substance abuse presents with shortness of breath for 2-3 days a/w dry cough. Pt denied fever, sore throat. Patient was recently in the hospital for possible cannabinoid induced hyperemesis and acute gastroenteritis and also acute on chronic systolic CHF and rapid A-fib. His medications were adjusted. His echo last admission showed EF of 20 to 25% with global hypokinesis of left ventricle. Patient states he is taking his medications regularly. Acute on chronic systolic and diastolic CHF Possible pneumonia Pt presents w/ sob and dry cough, reports compliance w/ medications. Echo on 05/14/2025 showed EF of 20 to 25%. Severe left ventricular global hypokinesis. Moderate to severe mitral regurgitation. Moderate to severe tricuspid regurgitation. BNP up at 2600, Chest imaging w/ congestion/edema. Given neg procal, no fever and CT chest w/ findings of improving prior infection, less likely pneumonia --> dc antibiotic (zosyn 05/23 and doxy 05/23) once bl cx is neg for 48 hrs. Monitor cough and fever. iv lasix 40 mg daily. FR 1800 ml, monitor Is and Os. Monitor and replete electrolytes. 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 DVT prophylaxis: On Eliquis Disposition: Telemetry, once bl cx growth for 48 hr is out and once cardio clears. Full code. Admission and Anticipated Discharge Date Admission Date: May 23, 2025 Subjective Patient was seen and examined at bedside. Patient was lying in bed, on room air, NAD, resting comfortably. Patient reports still some sob. Patient reported no chest pain. Patient reports eating okay moving bowels okay, denies pain or burning with passing urine. Physical Exam Physical Exam: General- Not in distress Head- atraumatic Eyes- PERRL. ENT- oropharynx clear Neck- supple, no JVD. Lungs- clear to auscultation no wheezing, mild bibasilar crackles Heart- regular rhythm; no murmur, no gallop. Abdomen- normal bowel sounds, soft, nontender, no distension Extremities- mild pretibial edema, no erythema seen Neuro- alert, oriented x 3; PERRL, no facial palsy; no dysarthria; moves extremities Results & Data Results & Data Vital Signs (Past 12 Hours) Vital Signs Temp Pulse Pulse Resp BP Pulse Ox Pulse Ox 05/24/25 10:58 36.6 C 91 H 18 100/62 97 05/24/25 10:03 79 05/24/25 08:14 95 H 05/24/25 07:36 05/24/25 07:21 36.4 C L 66 18 101/68 96 05/24/25 07:00 97 05/24/25 03:33 36.3 C L 85 18 99/67 L 97 O2 Del Method O2 Del Method O2 Flow Rate 05/24/25 10:58 Room Air 05/24/25 10:03 05/24/25 08:14 05/24/25 07:36 Room Air 05/24/25 07:21 Room Air 05/24/25 07:00 Room Air 0 05/24/25 03:33 Room Air
--- NOTE | 2025-05-24 17:32 | Cardiology Progress Note ---
Date of Service May 24, 2025 Assessment & Plan (1) SOB (shortness of breath): (2) Pneumonia: (3) Heart failure with reduced ejection fraction: (4) Elevated brain natriuretic peptide (BNP) level: (5) Persistent atrial fibrillation: Plan 60 Y M admitted through [facility] ER with c/o worsening shortness of breath 2 days ago. Patient is sedentary and had c/o shortness of breath on minimal activity. Patient was admitted earlier this month with A-fib RVR along with decompensated systolic CHF. At the time his ejection fraction was found to be severely reduced. At that time he was found a had been off of his cardiac medications for a period of time which was felt to be a contributing factor. IMP: Acute HFrEF - imp B/L Pleural effusion Severe NICM with LVEF of about 20% Atrial Fib DM Recommendations: Diurese - change IV to PO Lasix starting 05/25/25 repeat CXR in AM correct and f/u electrolytes keep K between 4 and 4.5 and Mg between 2 and 2.5 when on Digoxin f/u renal function continue anticoagulation - Eliquis continue digoxin, Toprol xl, Entresto, atorvastatin, Aldactone GDMT for HFrEF keeping HR between 60 to 100 BPM and systolic BP between 100-140 mmHg avoid hypovolemia keep patient euvolemic keep LE elevated when sitting daily weights 1.5 L / 24 hr fluid restriction strict I&Os salt restriction counseling Admission and Anticipated Discharge Date Admission Date: May 23, 2025 Subjective Patient on exam is sitting in bed in NAD; no c/o cp, sob, palpitations, dizziness, LOC, cough, fever, nausea, vomiting, abdominal pain breathing is better; still with LEVIN family at bedside Review of Systems Review of Systems: as per hpi Physical Exam Constitutional: WD/WN, vitals as above well developed and well nourished; no acute distress and not ill appearing Eyes: PERRL, conjunctivae normal, anicteric sclerae Neck: trachea midline, no thyromegaly Respiratory: normal respiratory effort and able to speak in complete sentences; no respiratory distress Auscultation: + diminished lung sounds Cardiovascular: Rate/Rhythm: regular rate and + irregularly irregular Heart Sounds: + murmur Vessels: + JVD Gastrointestinal (Abdomen): normal bowel sounds, soft, nontender, no hepatosplenomegaly Musculoskeletal: no cyanosis or clubbing, extremities motor strength 5/5 Skin: no rashes, warm and dry Psychiatric: A+Ox3, euthymic affect Results & Data Vital Signs (Past 12 Hours) Vital Signs Vital Signs Temp 36.9 C 05/24/25 15:14 Pulse 76 05/24/25 15:14 Resp 18 05/24/25 15:14 BP 106/67 05/24/25 15:14 Pulse Ox 96 05/24/25 15:14 O2 Del Method Room Air 05/24/25 15:14 O2 Flow Rate 0 05/24/25 07:00 Intake & Output 05/23/25 05/24/25 05/24/25 18:59 06:59 18:59 Intake Total 500 / 1140 640 / 1140 900 / 900 Output Total 1150 / 1150 3175 / 3175 Balance 500 / -10 -510 / -10 -2275 / -2275 Weight 89 kg 89.2 kg Intake: IV 100 / 300 200 / 300 100 / 100 Piperacillin/Tazobactam 4.5 gm 100 / 300 200 / 300 100 / 100 In 100 ml @ 25 mls/hr IV Q8H [facility] Rx#:[id number] Oral 400 / 840 440 / 840 800 / 800 Output: Urine 1150 / 1150 3175 / 3175 Other: # Unmeasured Voids 1 Weight Measurement Method Built in Bedscale Standing Scale Temp Pulse Pulse Resp BP Pulse Ox Pulse Ox 05/24/25 15:14 36.9 C 76 18 106/67 96 05/24/25 15:03 85 05/24/25 10:58 36.6 C 91 H 18 100/62 97 05/24/25 10:03 79 05/24/25 08:14 95 H 05/24/25 07:36 05/24/25 07:21 36.4 C L 66 18 101/68 96 05/24/25 07:00 97 O2 Del Method O2 Del Method O2 Flow Rate 05/24/25 15:14 Room Air 05/24/25 15:03 05/24/25 10:58 Room Air 05/24/25 10:03 05/24/25 08:14 05/24/25 07:36 Room Air 05/24/25 07:21 Room Air 05/24/25 07:00 Room Air 0 Laboratory Results Laboratory Results WBC 9.62 K/ul (4.8-10.8) 05/24/25 05:15 RBC 5.27 M/uL (4.70-6.10) 05/24/25 05:15 Hgb 12.2 g/dL (14.0-18.0) L 05/24/25 05:15 Hct 39.0 % (42.0-52.0) L 05/24/25 05:15 MCV 74.0 fL (80.0-100.0) L 05/24/25 05:15 MCH 23.1 pg (25.0-34.0) L 05/24/25 05:15 MCHC 31.3 g/dL (32.0-36.0) L 05/24/25 05:15 RDW Std Deviation 50.8 fL (36.4-46.3) H 05/24/25 05:15 RDW Coeff of Alex 20.5 % (11.5-14.5) H 05/24/25 05:15 Plt Count 259 K/uL (130-400) 05/24/25 05:15 MPV 10.8 fL (9.4-12.4) 05/24/25 05:15 Immature Gran % (Auto) 0.4 % 05/23/25 06:54 Neut % (Auto) 93.1 % 05/23/25 06:54 Lymph % (Auto) 4.1 % 05/23/25 06:54 Cook % (Auto) 2.2 % 05/23/25 06:54 Eos % (Auto) 0.1 % 05/23/25 06:54 Baso % (Auto) 0.1 % 05/23/25 06:54 Neut # (Auto) 7.56 K/uL (1.40-6.50) H 05/23/25 06:54 Lymph # (Auto) 0.33 K/uL (1.20-3.40) L 05/23/25 06:54 Cook # (Auto) 0.18 K/uL (0.11-0.59) 05/23/25 06:54 Eos # (Auto) 0.01 K/uL (0.00-0.50) 05/23/25 06:54 Baso # (Auto) 0.01 K/uL (0.00-0.20) 05/23/25 06:54 Immature Gran # (Auto) 0.03 K/uL (0.01-0.20) 05/23/25 06:54 Polychromasia 1+ 05/23/25 06:54 Anisocytosis Present 05/23/25 06:54 Microcytosis Present 05/23/25 06:54 Ovalocytes 2+ 05/23/25 06:54 Echinocytes 2+ 05/23/25 00:11 VBG pH 7.37 (7.36-7.41) 05/23/25 01:55 VBG pCO2 50 mmHg (38-50) 05/23/25 01:55 VBG pO2 24 mmHg 05/23/25 01:55 VBG HCO3 29 mmol/L 05/23/25 01:55 VBG O2 Saturation < 60.0 % 05/23/25 01:55 VBG Base Excess 2.7 mEq/L 05/23/25 01:55 Sodium 136 mmol/L (136-145) 05/24/25 05:15 Potassium 4.1 mmol/L (3.5-5.1) 05/24/25 05:15 Chloride 100 mmol/L (98-107) 05/24/25 05:15 Carbon Dioxide 28 mmol/L (21-32) 05/24/25 05:15 Anion Gap 8 (3-11) 05/24/25 05:15 BUN 35 mg/dl (6-23) H 05/24/25 05:15 Creatinine 0.94 mg/dl (0.6-1.4) 05/24/25 05:15 Est Cr Clr Drug Dosing 91.2 ml/min 05/24/25 05:15 eGFR 92.23 05/24/25 05:15 BUN/Creatinine Ratio 37.2 (10-20) H 05/24/25 05:15 Glucose 102 mg/dl (70-99(Fasting)) H 05/24/25 05:15 Lactate 2.8 mmol/L (0.4-2.0) H* 05/23/25 04:12 Calcium 9.6 mg/dl (8.6-10.3) 05/24/25 05:15 Phosphorus 3.9 mg/dl (2.5-4.9) 05/24/25 05:15 Magnesium 2.1 mg/dl (1.7-2.4) 05/24/25 05:15 Total Bilirubin 0.9 mg/dl (0.2-1.0) 05/23/25 00:11 AST 21 U/L (13-39) 05/23/25 00:11 ALT 72 U/L (7-52) H 05/23/25 00:11 Alkaline Phosphatase 98 U/L (34-104) 05/23/25 00:11 Troponin I High Sens 52.9 pg/ml (0-20) H* 05/23/25 02:09 B-Natriuretic Peptide 2600 pg/ml (0-100) H 05/23/25 00:11 Total Protein 6.7 gm/dl (6.0-8.3) 05/23/25 00:11 Albumin 3.8 gm/dl (3.4-5.0) 05/23/25 00:11 Globulin 2.9 gm/dl (2.5-4.0) 05/23/25 00:11 Albumin/Globulin Ratio 1.3 (0.9-2) 05/23/25 00:11 Procalcitonin < 0.02 ng/ml (0-0.5) 05/23/25 00:11 Nasal Screen MRSA (PCR) Positive (Negative) A 05/23/25 Unknown Adenovirus (PCR) Not Detected (NotDetected) 05/23/25 00:11 B. pertussis DNA (PCR) Not Detected (NotDetected) 05/23/25 00:11 B.parapertussis DNA PCR Not Detected (NotDetected) 05/23/25 00:11 C. pneumoniae DNA (PCR) Not Detected (NotDetected) 05/23/25 00:11 Coronavirus OC43 (PCR) Not Detected (NotDetected) 05/23/25 00:11 Coronavirus HKU1 (PCR) Not Detected (NotDetected) 05/23/25 00:11 Coronavirus 229E (PCR) Not Detected (NotDetected) 05/23/25 00:11 SARS-CoV-2 (PCR) Not Detected (NotDetected) 05/23/25 00:11 Coronavirus NL63 (PCR) Not Detected (NotDetected) 05/23/25 00:11 Human Metapneumovir PCR Not Detected (NotDetected) 05/23/25 00:11 Influenza Type A (PCR) Not Detected (NotDetected) 05/23/25 00:11 Influenza Type B (PCR) Not Detected (NotDetected) 05/23/25 00:11 M. pneumoniae (PCR) Not Detected (NotDetected) 05/23/25 00:11 Parainfluenza 1 (PCR) Not Detected (NotDetected) 05/23/25 00:11 Parainfluenza 2 (PCR) Not Detected (NotDetected) 05/23/25 00:11 Parainfluenza 3 (PCR) Not Detected (NotDetected) 05/23/25 00:11 Parainfluenza 4 (PCR) Not Detected (NotDetected) 05/23/25 00:11 RSV (PCR) Not Detected (NotDetected) 05/23/25 00:11 Entero/Rhino (PCR) Not Detected (NotDetected) 05/23/25 00:11 Impressions Chest X-Ray 05/23/25 00:15 EXAM: XR chest 1V portable CLINICAL HISTORY: Dyspnea TECHNIQUE: An X-ray image of the chest is obtained in AP projection. COMPARISON: 05/14/2025 CR FINDINGS: Pulmonary Parenchyma: Newly developed bilateral lower lung zones hazy opacities. Unchanged bilateral prominent vascular markings. No evidence of consolidation or collapse. No evidence of pleural effusion or pleural thickening. Heart and Mediastinum: Unchanged cardiomegaly and prominent size of both hilar vascular shadows. No hilar or mediastinal lymphadenopathy. Atherosclerotic changes of the aortic arch. Bony Thorax: Bony thorax appears intact without fractures or deformities. There is severe bilateral glenohumeral osteoarthritis (Unchanged). Soft Tissues: Soft tissues overlying the chest wall are unremarkable. IMPRESSION: Newly developed bilateral lower lung zone hazy opacities, on a background of unchanged cardiomegaly and prominent pulmonary vascular markings, findings are in keeping with worsening pulmonary edema/congestion; clinical correlation and follow-up are advised. Electronically signed by Marshall Araujo 05-23-2025 02:[address] 05/23/25 03:29 EXAM: CT chest diagnostic wo con CLINICAL HISTORY: sob. infiltrates vs pul edema TECHNIQUE: Contiguous axial images were obtained from the neck base through the upper abdomen without contrast. In addition, sagittal and coronal reconstructions were performed to potentially increase the sensitivity for the detection of disease. CT scan was performed according to ALARA (as low as reasonably achievable). COMPARISON: 04/25/2025 13:22:00 [employer]. FINDINGS: Cardiomegaly. Mild bilateral pleural effusion with basal subsegmental collapse of both lower lobes are seen Diffuse smooth interlobular septal thickening are noted involving bilateral lungs - suggestive of pulmonary congestion /edema About 4 mm sized nodule is noted involving posterior segment of right upper lobe. Soft tissue nodules seen along pleural surface adjacent to pleural effusion in both lower lobes- stable. Few scattered nodular ground-glass opacities are also noted in both lungs - sequelae of prior infection. The central airways are patent. Evaluation of the mediastinum and jayne is limited due to the lack of intravenous contrast. No axillary or mediastinal adenopathy is identified. The thyroid is unremarkable. The aorta, and pulmonary arteries are of normal size and configuration. There are coronary artery and aortic atherosclerotic calcifications. No pericardial effusion is identified. Imaged portions of the upper abdomen are unremarkable. No aggressive appearing osseous lesions are identified. Bilateral gleno-humeral joint osteoarthritis. Old healed fracture with callus formations are noted involving bilateral multiple ribs. Chronic compression changes in T4, T10 and L1 vertebral bodies. IMPRESSION: Cardiomegaly. Mild bilateral pleural effusion with basal subsegmental collapse of both lower lobes are seen-stable. Diffuse smooth interlobular septal thickening are noted involving bilateral lungs - suggestive of pulmonary congestion /edema-stable. About 4 mm sized nodule is noted involving posterior segment of right upper lobe.-stable. Few scattered nodular ground-glass opacities are also noted in both lungs - sequelae of prior infection.- clinical correlation is suggested density reduced as compared to prior study. Electronically signed by Serafin Meng 05-23-2025 04:46 AM Diagnostic Findings CBC 05/24/25 Range/Units 05:15 WBC 9.62 (4.8-10.8) K/ul RBC 5.27 (4.70-6.10) M/uL Hgb 12.2 L (14.0-18.0) g/dL Hct 39.0 L (42.0-52.0) % Plt Count 259 (130-400) K/uL Comprehensive Metabolic Panel 05/24/25 Range/Units 05:15 Sodium 136 (136-145) mmol/L Potassium 4.1 (3.5-5.1) mmol/L Chloride 100 (98-107) mmol/L Carbon Dioxide 28 (21-32) mmol/L BUN 35 H (6-23) mg/dl Creatinine 0.94 (0.6-1.4) mg/dl Glucose 102 H (70-99(Fasting)) mg/dl Calcium 9.6 (8.6-10.3) mg/dl Intake and Output 05/24/25 05/24/25 05/24/25 06:59 14:59 22:59 Intake Total 300 / 1140 900 / 900 Output Total 750 / 1150 3175 / 3175 Balance -450 / -10 -2275 / -2275 Intake: IV 100 / 300 100 / 100 Piperacillin/Tazobactam 4.5 gm 100 / 300 100 / 100 In 100 ml @ 25 mls/hr IV Q8H [facility] Rx#:[id number] Oral 200 / 840 800 / 800 Output: Urine 750 / 1150 3175 / 3175 Other: Weight 89.2 kg Weight Measurement Method Standing Scale Medications Administered Home Medications Medication Instructions Recorded Confirmed Last Taken nitroglycerin 0.4 mg sublingual 0.4 mg sublingual UD PRN Chest Pain 08/27/21 05/23/25 Unknown tablet cholecalciferol (vitamin D3) 10 10 mcg PO QAM #30 caps 12/04/23 05/23/25 05/22/25 mcg (400 unit) capsule (Vitamin D3) duloxetine 30 mg capsule,delayed 30 mg PO QAM #30 caps 12/04/23 05/23/25 05/22/25 release omeprazole 40 mg capsule,delayed 40 mg PO DAILYBB #30 caps 12/04/23 05/23/25 05/22/25 release spironolactone 25 mg tablet 12.5 mg (1/2 x 25 mg) PO QAM #15 12/04/23 05/23/25 05/22/25 tabs sulfasalazine 500 mg tablet 1,000 mg (2 x 500 mg) PO BID #120 12/04/23 05/23/25 05/22/25 tabs aspirin 81 mg tablet 81 mg PO QAM 12/25/24 05/23/25 05/22/25 atorvastatin 10 mg tablet 10 mg PO QAM 12/25/24 05/23/25 05/22/25 divalproex 250 mg tablet,extended 250 mg PO QAM 12/25/24 05/23/25 05/22/25 release 24 hr empagliflozin 25 mg tablet 25 mg PO QAM 12/25/24 05/23/25 05/22/25 (Jardiance) fluticasone fur. 100 mcg-umeclid 1 ea inhalation QAM 12/25/24 05/23/25 05/22/25 62.5 mcg-vilant 25 mcg inhalat.powder (Trelegy Ellipta) magnesium oxide 400 mg (241.3 mg 400 mg PO QAM 12/25/24 05/23/25 05/22/25 magnesium) tablet oxycodone-acetaminophen 10 mg-325 1 tab PO BID PRN Pain,severe #15 12/30/24 05/23/25 Unknown mg tablet tabs apixaban 5 mg tablet (Eliquis) 5 mg PO AMHS 05/13/25 05/23/25 05/22/25 ? metoprolol succinate 50 mg 50 mg PO Q12 05/13/25 05/23/25 05/22/25 tablet,extended release 24 hr digoxin 125 mcg (0.125 mg) tablet 0.125 mcg (0.001 x 125 mcg (0.125 05/17/25 05/23/25 05/22/25 mg)) PO QAM #30 tabs sacubitril 24 mg-valsartan 26 mg 0.5 tab PO AMHS #0 tabs 05/17/25 05/23/25 05/22/25 tablet (Entresto) furosemide 20 mg tablet 20 mg PO QAM 05/23/25 05/23/25 05/22/25 prednisone 5 mg tablet 7.5 mg PO QAM 05/23/25 05/23/25 05/22/25 Active Medications Generic Name Dose Route Start Last Admin Trade Name Freq PRN Reason Stop Dose Admin Apixaban 5 mg 05/23/25 09:00 05/24/25 08:16 Apixaban 5 Mg Tablet PO 06/22/25 08:59 5 mg AMHS MAIRA Administration Aspirin 81 mg 05/23/25 09:00 05/24/25 08:15 Aspirin 81 Mg Ectab PO 06/22/25 08:59 81 mg QAM MAIRA Administration Atorvastatin Calcium 10 mg 05/23/25 09:00 05/24/25 08:17 Atorvastatin 10 Mg Tab PO 06/22/25 08:59 10 mg QAM MAIRA Administration Digoxin 0.125 mg 05/23/25 09:00 05/24/25 08:14 Digoxin 0.125 Mg Tab PO 06/22/25 08:59 0.125 mg QAM MAIRA Administration Divalproex Sodium 250 mg 05/23/25 09:00 05/24/25 08:18 Divalproex Extended Release 250 Mg Tabcr PO 06/22/25 08:59 250 mg QAM MAIRA Administration Doxycycline Hyclate 100 mg 05/23/25 09:00 05/24/25 08:16 Doxycycline Hyclate 100 Mg Cap PO 05/28/25 08:59 100 mg BID MAIRA Administration Duloxetine HCl 30 mg 05/23/25 09:00 05/24/25 08:14 Duloxetine Hcl 30 Mg Cap PO 06/22/25 08:59 30 mg QAM MAIRA Administration Empagliflozin 25 mg 05/23/25 09:00 05/24/25 08:19 Empagliflozin 25 Mg Tab PO 06/22/25 08:59 25 mg QAM MAIRA Administration Fluticasone Furoate 1 puffs 05/23/25 09:00 05/24/25 10:43 Fluticasone Furoate 100mcg 14 Puffs/Inhaler INH 06/22/25 08:59 1 puffs DAILY MAIRA Administration Furosemide 40 mg 05/24/25 09:00 05/24/25 08:30 Furosemide 40 Mg/4 Ml Vial IV 06/23/25 08:59 40 mg BID MAIRA Administration Piperacillin Sod/Tazobactam Sod 4.5 gm in 100 mls @ 25 mls/hr 05/23/25 08:00 05/24/25 16:00 Zosyn IV 05/28/25 07:59 25 mls/hr Q8H [facility] Administration Protocol Magnesium Oxide 400 mg 05/23/25 09:00 05/24/25 08:16 Magnesium Oxide 400 Mg Tab PO 06/22/25 08:59 400 mg QAM MAIRA Administration Metoprolol Succinate 50 mg 05/23/25 09:00 05/24/25 08:17 Metoprolol Succ 50mg Ext Rel Tab PO 06/22/25 08:59 50 mg Q12 [facility]A Administration Pantoprazole Sodium 40 mg 05/23/25 06:30 05/24/25 05:40 Pantoprazole 40 Mg Tab PO 06/22/25 06:29 40 mg DAILYBB MAIRA Administration Prednisone 7.5 mg 05/23/25 09:00 05/24/25 08:15 Prednisone 2.5 Mg Tab PO 06/22/25 08:59 7.5 mg QAM MAIRA Administration Sacubitril/Valsartan 0.5 tab 05/23/25 09:00 05/24/25 08:15 Valsartan/Sacubitril 26/24mg Tab PO 06/22/25 08:59 0.5 tab AMHS MAIRA Administration Spironolactone 12.5 mg 05/23/25 09:00 05/24/25 08:18 Spironolactone 12.5 Mg Tab PO 06/22/25 08:59 12.5 mg QAM MAIRA Administration Sulfasalazine 1,000 mg 05/23/25 09:00 05/24/25 08:16 Sulfasalazine 500 Mg Tablet PO 06/22/25 08:59 1,000 mg BID MAIRA Administration Umeclidinium/Vilanterol 1 puffs 05/23/25 09:00 05/24/25 10:43 Umeclidinium/Vilanterol 62.5/25mcg 7 Puffs/Inhaler INH 06/22/25 08:59 1 puffs DAILY MAIRA Administration Vitamin D 10 mcg 05/23/25 09:00 05/24/25 08:16 Cholecalciferol 10 Mcg (400 Units) Tab PO 06/22/25 08:59 10 mcg QAM MAIRA Administration PG Care Time/CCT Total # of Minutes Spent Total Time Spent with Patient: Total time spent is greater than 50% in coordination of care (as documented) at patient's floor/unit and/or counseling patient: Coding Level of Care Code 97969 SUB INP/OBS CARE 3/50MIN Diagnoses SOB (shortness of breath) R06.02 Pneumonia J18.9 Heart failure with reduced ejection fraction I50.20 Elevated brain natriuretic peptide (BNP) level R79.89 Persistent atrial fibrillation I48.19
--- NOTE | 2025-05-24 20:49 | Electrocardiogram Report ---
Test Reason : Blood Pressure : */* mmHG Vent. Rate : 87 BPM Atrial Rate : * BPM P-R Int : * ms QRS Dur : 98 ms QT Int : 342 ms P-R-T Axes : * 124 160 degrees QTcB Int : 411 ms Atrial fibrillation Right axis deviation Low voltage QRS Cannot rule out Anterior infarct (cited on or before 14-May-2025) Abnormal ECG When compared with ECG of 14-May-2025 06:07, No significant change was found Confirmed by Caryl Gonzalez ([id number]) on 05/24/2025 8:49:02 PM Referred By: REFERRED SELF Confirmed By: Caryl Gonzalez
[2025-05-25 08:11] LABS: Hematocrit (blood only) 45.3 % (42.0-52.0); Hemoglobin 14.3 g/dL (14.0-18.0); Mean Corpuscular Hemoglobin 23.3 pg (25.0-34.0); Mean Corpuscular Volume 73.8 fL (80.0-100.0); Platelet Count 320 K/uL (130-400); RDW Standard Deviation 50.5 fL (36.4-46.3); Red Blood Count 6.14 M/uL (4.70-6.10); White Blood Count 8.35 K/ul (4.8-10.8)
[2025-05-25 08:32] LABS: Anion Gap 9.0 (3-11); Blood Urea Nitrogen 34.0 mg/dl (6-23); Calcium 9.8 mg/dl (8.6-10.3); Carbon Dioxide 32.0 mmol/L (21-32); Chloride 96.0 mmol/L (98-107); Creatinine Clr Calc Pharmacy 76.8 ml/min; Glucose 94.0 mg/dl (70-99(Fasting)); Magnesium 2.1 mg/dl (1.7-2.4); Potassium 3.8 mmol/L (3.5-5.1); Sodium 137.0 mmol/L (136-145)
--- NOTE | 2025-05-25 08:34 | XRay Report ---
EXAM: XR chest 1V portable CLINICAL HISTORY: CHF. TECHNIQUE: An X-ray image of the chest is obtained in AP projection. COMPARISON: CR 05/22/[address]05/23/2025. FINDINGS: Pulmonary Parenchyma: Interval regression of haziness in right lower zone. Unchanged left lower zone haziness. Small nodular opacity in right lower zone. Unchanged bilateral prominent vascular markings. No evidence of consolidation or collapse. No evidence of pleural effusion or pleural thickening. Heart and Mediastinum: Unchanged cardiomegaly and prominent size of both hilar vascular shadows. Atherosclerotic changes of the aortic arch. Unchanged. Bony Thorax: Bony thorax appears intact without fractures or deformities. Degenerative changes in bilateral shoulder joints. Soft Tissues: Soft tissues overlying the chest wall are unremarkable. IMPRESSION: 1. Interval regression of haziness in right lower zone. 2. Unchanged left lower zone haziness. 3. Unchanged cardiomegaly and prominent both hilar vascular shadows. 4. Clinical correlation is suggested. Electronically signed by Marshall Araujo 05-25-2025 08:33 AM
--- NOTE | 2025-05-25 10:10 | Cardiology Progress Note ---
Date of Service May 25, 2025 Assessment & Plan (1) Persistent atrial fibrillation: (2) Atrial fibrillation with rapid ventricular response: (3) Severe left ventricular systolic dysfunction (LVSD): (4) Heart failure with reduced ejection fraction: Plan Acute decompensated systolic congestive heart failure. NYHA Class III+ LVEF 20%. QRS duration narrow, and in atrial fibrillation. ? Tachycardia induced. Volume status: Compensated. * Discontinue IV furosemide. * Start oral furosemide in AM, 40 mg/day * Titrate GDMT as tolerated. Atrial fibrillation Left atrial severely dilated on resting echocardiography Continue rate control with metoprolol succinate 50 mg BID and digoxin. May require further titration of metoprolol succinate Continue apixaban anticoagulation. Nonobstructive CAD As per cardiac catheterization 04/20/2021 at [facility] - patent coronary anatomy, RCA with a nonobstructive ulcerated plaque in its mid segment Continue medical management. Admission and Anticipated Discharge Date Admission Date: May 23, 2025 Supervising Physician Co-Signing Physician Notes I have personally performed a history and physical examination on the patient. I have reviewed the advance practitioner's documentation, and I agree with, and take responsibility for the plan of care. 60-year-old male with persistent atrial fibrillation with rapid ventricular response, severe left ventricular dysfunction and heart failure with reduced ejection fraction. Transition IV furosemide to oral furosemide tomorrow. Titrate GDMT as tolerated. Continue rate control strategy and anticoagulation with apixaban. Importance of compliance with medical therapies reviewed with patient and family at bedside. Guillermo Luque DO, [facility] Subjective Patient seen and examined. Chart, medications, and telemetry reviewed. Ongoing shortness of breath noted, unchanged compared to yesterday. No overt palpitations. No chest pain. No orthopnea, PND, or edema. Telemetry with atrial fibrillation predominately in the 70's to 90's, currently 116 bpm, occasionally with rates up to 140 bpm. Review of Systems Review of Systems: Complete review of systems is as stated above, negative, or noncontributory. Physical Exam Physical Exam: General: A&Ox3. NAD. HENT: Normocephalic. Atraumatic. Eyes: PER. Conjunctiva pink, sclera clear. Neck: No JVD. No HJR. Heart: Irregularly irregular, 100 bpm. No murmur. Lungs: Diminished. Clear to auscultation. No wheeze. Abdomen: +BS. Soft. Nontender. No masses or organomegaly. Extremities: No clubbing, cyanosis, or edema. Limited neurological examination is without focal deficits. Pulses: Posterior tibial=1/4. Results & Data Vital Signs (Past 12 Hours) Vital Signs Temp Pulse Pulse Resp BP Pulse Ox O2 Del Method 05/25/25 09:24 95 H 05/25/25 09:00 Room Air 05/25/25 07:29 36.5 C 70 18 105/75 92 Room Air 05/25/25 02:45 36.7 C 92 H 16 99/71 L 95 Room Air 05/24/25 22:39 36.6 C 102 H 18 114/78 90 Room Air Laboratory Results CBC 05/25/25 Range/Units 07:22 WBC 8.35 (4.8-10.8) K/ul RBC 6.14 H (4.70-6.10) M/uL Hgb 14.3 (14.0-18.0) g/dL Hct 45.3 (42.0-52.0) % Plt Count 320 (130-400) K/uL Comprehensive Metabolic Panel 05/25/25 Range/Units 07:22 Sodium 137 (136-145) mmol/L Potassium 3.8 (3.5-5.1) mmol/L Chloride 96 L (98-107) mmol/L Carbon Dioxide 32 (21-32) mmol/L BUN 34 H (6-23) mg/dl Creatinine 1.01 (0.6-1.4) mg/dl Glucose 94 (70-99(Fasting)) mg/dl Calcium 9.8 (8.6-10.3) mg/dl Intake and Output 05/24/25 05/25/25 05/25/25 22:59 06:59 14:59 Intake Total 340 / 1740 500 / 1740 Output Total 1550 / 6425 1700 / 6425 Balance -1210 / -4685 -1200 / -4685 Intake: IV 100 / 300 100 / 300 Piperacillin/Tazobactam 4.5 gm 100 / 300 100 / 300 In 100 ml @ 25 mls/hr IV Q8H [facility] Rx#:[id number] Oral 240 / 1440 400 / 1440 Output: Urine 1550 / 6425 1700 / 6425 # Bowel Movements 0 / 0 Other: # Unmeasured Voids 1 Weight 82.9 kg Weight Measurement Method Standing Scale PG Care Time/CCT Total # of Minutes Spent Total Time Spent with Patient: Total time spent is greater than 50% in coordination of care (as documented) at patient's floor/unit and/or counseling patient: Coding Level of Care Code 72829 SUB INP/OBS CARE 3/50MIN Diagnoses Persistent atrial fibrillation I48.19 Atrial fibrillation with rapid ventricular response I48.91 Severe left ventricular systolic dysfunction (LVSD) I51.89 Heart failure with reduced ejection fraction I50.20
--- NOTE | 2025-05-25 13:02 | Hospitalist Progress Note ---
Date of Service May 25, 2025 Assessment & Plan (1) SOB (shortness of breath): Plan: 60 yo M w/ PMH of rheumatoid arthritis, Raynaud's disease, persistent atrial fibrillation on Eliquis, COPD, systolic and diastolic CHF, A-fib, CAD, PAD, SVT, GERD, hepatitis C virus s/p Rx, depression anxiety, long-term steroid, history of substance abuse presents with shortness of breath for 2-3 days a/w dry cough. Pt denied fever, sore throat. Patient was recently in the hospital for possible cannabinoid induced hyperemesis and acute gastroenteritis and also acute on chronic systolic CHF and rapid A-fib. His medications were adjusted. His echo last admission showed EF of 20 to 25% with global hypokinesis of left ventricle. Patient states he is taking his medications regularly. Acute on chronic systolic and diastolic CHF Possible pneumonia Pt presents w/ sob and dry cough, reports compliance w/ medications. Echo on 05/14/2025 showed EF of 20 to 25%. Severe left ventricular global hypokinesis. Moderate to severe mitral regurgitation. Moderate to severe tricuspid regurgitation. BNP up at 2600, Chest imaging w/ congestion/edema. Given neg procal, no fever and CT chest w/ findings of improving prior infection, less likely pneumonia --> dc antibiotic (zosyn 05/23 and doxy 05/23) as bl cx is neg for 48 hrs. Monitor cough and fever. FR 1800 ml, monitor Is and Os. Monitor and replete electrolytes. Cardio on board, GDMT being optimized. A-fib: On metoprolol succinate, digoxin and Eliquis Rheumatoid arthritis Currently on prednisone 7.5 mg daily and sulfasalazine Prednisone was restarted last admission for adrenal insufficiency as it was stopped abruptly Follow-up with funder CAD Nonobstructive CAD On beta-tyrone statin aspirin and Eliquis Peripheral artery disease: Aspirin and statin Mood disorder: On divalproex and duloxetine History of COPD: Continue home Trelegy Pulmonary mass: Follow CT scan - stable, f/u w/ pcp as OP for monitoring. DVT prophylaxis: On Eliquis Disposition: Telemetry, GDMT being optimized. Full code. Admission and Anticipated Discharge Date Admission Date: May 23, 2025 Subjective Patient was seen and examined at bedside. Patient was lying in bed, on room air, NAD, resting comfortably. Patient reports still some sob, maybe some improved per pt. Patient reported no chest pain. Patient reports eating okay moving bowels okay, denies pain or burning with passing urine. Pt reports same cough w/ clear sputum no change in nature of cough or sputum. Physical Exam Physical Exam: General- Not in distress Head- atraumatic Eyes- PERRL. ENT- oropharynx clear Neck- supple, no JVD. Lungs- clear to auscultation no wheezing, mild bibasilar crackles Heart- regular rhythm; no murmur, no gallop. Abdomen- normal bowel sounds, soft, nontender, no distension Extremities- mild pretibial edema, no erythema seen Neuro- alert, oriented x 3; PERRL, no facial palsy; no dysarthria; moves extremities Results & Data Results & Data Vital Signs (Past 12 Hours) Vital Signs Temp Pulse Pulse Resp BP Pulse Ox O2 Del Method 05/25/25 11:41 36.5 C 93 H 18 107/72 90 Room Air 05/25/25 09:24 95 H 05/25/25 09:00 Room Air 05/25/25 07:29 36.5 C 70 18 105/75 92 Room Air 05/25/25 07:00 75 05/25/25 02:45 36.7 C 92 H 16 99/71 L 95 Room Air
[2025-05-26] MEDS: FUROSEMIDE 40 MG TAB PO SCH (09:15)
[2025-05-26 10:46] LABS: Hematocrit (blood only) 50.0 % (42.0-52.0); Hemoglobin 15.9 g/dL (14.0-18.0); Mean Corpuscular Hemoglobin 23.3 pg (25.0-34.0); Mean Corpuscular Volume 73.4 fL (80.0-100.0); Platelet Count 392 K/uL (130-400); RDW Standard Deviation 51.0 fL (36.4-46.3); Red Blood Count 6.81 M/uL (4.70-6.10); White Blood Count 9.85 K/ul (4.8-10.8)
[2025-05-26 11:07] LABS: Anion Gap 9.0 (3-11); Blood Urea Nitrogen 44.0 mg/dl (6-23); Calcium 10.8 mg/dl (8.6-10.3); Carbon Dioxide 29.0 mmol/L (21-32); Chloride 96.0 mmol/L (98-107); Creatinine Clr Calc Pharmacy 71.8 ml/min; Glucose 112.0 mg/dl (70-99(Fasting)); Potassium 4.1 mmol/L (3.5-5.1); Sodium 134.0 mmol/L (136-145)
--- NOTE | 2025-05-26 11:18 | Cardiology Progress Note ---
Date of Service May 26, 2025 Assessment & Plan (1) Persistent atrial fibrillation: (2) Atrial fibrillation with rapid ventricular response: (3) Severe left ventricular systolic dysfunction (LVSD): (4) Heart failure with reduced ejection fraction: Plan Acute decompensated systolic congestive heart failure. Suspected tachycardia induced. NYHA Class III+ LVEF 20%. Narrow QRS duration, persistently in atrial fibrillation. Volume status: Compensated. Patient transitioned to oral furosemide in AM of 05/26/2025. Atrial fibrillation Left atrial severely dilated on resting echocardiography Increase metoprolol succinate to 75 mg in the AM and 50 mg in the PM for additional heart rate control Continue digoxin 125 mcg/day Continue apixaban anticoagulation at 5 mg twice a day. If significant hypotension occurs with titration of metoprolol may need to change Entresto to Losartan Nonobstructive CAD As per cardiac catheterization 04/20/2021 at [facility] - patent coronary anatomy, RCA with a nonobstructive ulcerated plaque in its mid segment Continue medical management. Admission and Anticipated Discharge Date Admission Date: May 23, 2025 Supervising Physician Co-Signing Physician Notes I have personally performed a history and physical examination on the patient. I have reviewed the advance practitioner's documentation, and I agree with, and take responsibility for the plan of care. 60-year-old male with persistent atrial fibrillation with rapid ventricular response, severe left ventricular dysfunction and heart failure with reduced ejection fraction. Titrate metoprolol as noted above to improve rate control. Continue spironolactone, Entresto, and digoxin as ordered. Continue anticoagulation with apixaban. Reviewed importance of compliance with medical therapies. Guillermo Luque DO, [facility] Subjective Patient seen and examined. Chart, medications, telemetry reviewed. Feeling okay. No chest pain. No palpitations. No new or worsening shortness of breath. No fluid retention. Review of Systems Review of Systems: Complete review of systems is as stated above, negative, or noncontributory. Physical Exam Physical Exam: General: NAD. HENT: Normocephalic. Atraumatic. Eyes: PER. Conjunctiva pink, sclera clear. Neck: No JVD. No HJR. Heart: Irregularly irregular, 110 bpm. No murmur. Lungs: Clear to auscultation. No wheeze. Abdomen: +BS. Soft. Nontender. No masses or organomegaly. Extremities: No clubbing, cyanosis, or edema. Limited neurological examination is without focal deficits. Pulses: Posterior tibial=1/4. Results & Data Vital Signs (Past 12 Hours) Vital Signs Temp Pulse Pulse Resp BP Pulse Ox O2 Del Method 05/26/25 09:14 114/71 05/26/25 09:01 117 H 05/26/25 07:46 36.4 C L 83 18 93/68 L 97 Room Air 05/26/25 07:16 106 H 05/26/25 02:52 36.6 C 86 18 105/74 96 Room Air Laboratory Results CBC 05/26/25 Range/Units 10:25 WBC 9.85 (4.8-10.8) K/ul RBC 6.81 H (4.70-6.10) M/uL Hgb 15.9 (14.0-18.0) g/dL Hct 50.0 (42.0-52.0) % Plt Count 392 (130-400) K/uL Comprehensive Metabolic Panel 05/26/25 Range/Units 10:25 Sodium 134 L (136-145) mmol/L Potassium 4.1 (3.5-5.1) mmol/L Chloride 96 L (98-107) mmol/L Carbon Dioxide 29 (21-32) mmol/L BUN 44 H (6-23) mg/dl Creatinine 1.08 (0.6-1.4) mg/dl Glucose 112 H (70-99(Fasting)) mg/dl Calcium 10.8 H (8.6-10.3) mg/dl Intake and Output 05/25/25 05/26/25 05/26/25 22:59 06:59 14:59 Intake Total 680 / 1620 240 / 1620 Output Total 1950 / 2400 450 / 2400 Balance -1270 / -780 -210 / -780 Intake: Oral 680 / 1520 240 / 1520 Output: Urine 1950 / 2400 450 / 2400 Other: Weight 81.7 kg Weight Measurement Method Standing Scale Diagnostic Findings Telemetry: Atrial fibrillation with heart rates in the 90s to 1 teens PG Care Time/CCT Total # of Minutes Spent Total Time Spent with Patient: Total time spent is greater than 50% in coordination of care (as documented) at patient's floor/unit and/or counseling patient: Coding Level of Care Code 75418 SUB INP/OBS CARE 2/35MIN Diagnoses Persistent atrial fibrillation I48.19 Atrial fibrillation with rapid ventricular response I48.91 Severe left ventricular systolic dysfunction (LVSD) I51.89 Heart failure with reduced ejection fraction I50.20
[2025-05-26] MEDS: METOPROLOL SUCC 25MG EXT REL TAB PO ONE (11:50)
--- NOTE | 2025-05-26 16:09 | Hospitalist Progress Note ---
Date of Service May 26, 2025 Assessment & Plan (1) SOB (shortness of breath): Plan: 60 yo M w/ PMH of rheumatoid arthritis, Raynaud's disease, persistent atrial fibrillation on Eliquis, COPD, systolic and diastolic CHF, A-fib, CAD, PAD, SVT, GERD, hepatitis C virus s/p Rx, depression anxiety, long-term steroid, history of substance abuse presents with shortness of breath for 2-3 days a/w dry cough. Pt denied fever, sore throat. Patient was recently in the hospital for possible cannabinoid induced hyperemesis and acute gastroenteritis and also acute on chronic systolic CHF and rapid A-fib. His medications were adjusted. His echo last admission showed EF of 20 to 25% with global hypokinesis of left ventricle. Patient states he is taking his medications regularly. Acute on chronic systolic and diastolic CHF Possible pneumonia Pt presents w/ sob and dry cough, reports compliance w/ medications. Echo on 05/14/2025 showed EF of 20 to 25%. Severe left ventricular global hypokinesis. Moderate to severe mitral regurgitation. Moderate to severe tricuspid regurgitation. BNP up at 2600, Chest imaging w/ congestion/edema. Given neg procal, no fever and CT chest w/ findings of improving prior infection, less likely pneumonia --> dc antibiotic (zosyn 05/23 and doxy 05/23) as bl cx is neg for 48 hrs. Monitor cough and fever. FR 1800 ml, monitor Is and Os. Monitor and replete electrolytes. Cardio on board, GDMT being optimized. 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 DVT prophylaxis: On Eliquis Disposition: Telemetry, GDMT being optimized. Full code. Admission and Anticipated Discharge Date Admission Date: May 23, 2025 Subjective Patient was seen and examined at bedside. Patient was lying in bed, on room air, NAD, resting comfortably. Patient reports still some sob, has so far good improvement per pt Patient reported no chest pain. Patient reports eating okay moving bowels okay, denies pain or burning with passing urine. Pt reports improving cough D/w pt and his SO Hayley in depth, they were already pursuing hospice as OP give End Stage Heart Failure, we discussed the implications of hospice and if we are compliant with meds and cardio follow we might be able to have some level of quality of life and we don't need to [place] to hospice. They decided to discuss further among themselves and later on they reported to CM and RN that they want to pursue the OP hospice which they have already established with. Physical Exam Physical Exam: General- Not in distress Head- atraumatic Eyes- PERRL. ENT- oropharynx clear Neck- supple, no JVD. Lungs- clear to auscultation no wheezing, mild bibasilar crackles Heart- regular rhythm; no murmur, no gallop. Abdomen- normal bowel sounds, soft, nontender, no distension Extremities- mild pretibial edema, no erythema seen Neuro- alert, oriented x 3; PERRL, no facial palsy; no dysarthria; moves extremities Results & Data Results & Data Vital Signs (Past 12 Hours) Vital Signs Temp Pulse Pulse Resp BP BP Pulse Ox 05/26/25 15:37 36.7 C 71 18 115/59 L 95 05/26/25 15:10 90 05/26/25 11:30 36.7 C 69 18 101/69 92 05/26/25 09:14 114/71 05/26/25 09:01 117 H 05/26/25 08:50 05/26/25 07:46 36.4 C L 83 18 93/68 L 97 05/26/25 07:16 106 H O2 Del Method 05/26/25 15:37 Room Air 05/26/25 15:10 05/26/25 11:30 Room Air 05/26/25 09:14 05/26/25 09:01 05/26/25 08:50 Room Air 05/26/25 07:46 Room Air 05/26/25 07:16
[2025-05-26] MEDS: METOPROLOL SUCC 50MG EXT REL TAB PO SCH (19:59)
[2025-05-27 07:55] VITALS: BP 131/76; RESP 18; TEMP 98.2; O2SAT 95
[2025-05-27] MEDS: METOPROLOL SUCC 25MG EXT REL TAB PO SCH (08:31)
[2025-05-27 09:05] LABS: Hematocrit (blood only) 48.7 % (42.0-52.0); Hemoglobin 15.7 g/dL (14.0-18.0); Mean Corpuscular Hemoglobin 23.8 pg (25.0-34.0); Mean Corpuscular Volume 73.9 fL (80.0-100.0); Platelet Count 371 K/uL (130-400); RDW Standard Deviation 51.5 fL (36.4-46.3); Red Blood Count 6.59 M/uL (4.70-6.10); White Blood Count 9.07 K/ul (4.8-10.8)
--- NOTE | 2025-05-27 09:21 | Discharge Summary ---
Date of Service May 27, 2025 Admission HPI Per Admitting Provider 60-year-old male with past med history significant for rheumatoid arthritis, Raynaud's disease , persistent atrial fibrillation on Eliquis, COPD, history of, and systolic and diastolic CHF, history of A-fib, CAD, PAD, SVT, GERD, hepatitis C virus cured after antiviral drug therapy, depression anxiety, long-term steroid, history of substance abuse presents with shortness of breath. Patient states last 2 to 3 days feeling short of breath. Denies any cough. No fevers. No chest pain. No orthopnea. Has headache . Vision is okay. No runny nose or sore throat. No nausea. No abdominal pain. He gets diarrhea and constipation. Micturating okay. Ambulates with a cane. Hemodynamics are okay. Patient was recently in the hospital for possible cannabinoid induced hyperemesis and acute gastroenteritis and also acute on chronic systolic CHF and rapid A-fib. His medications were adjusted. His echo last admission showed EF of 20 to 25% with global hypokinesis of left ventricle. Patient states he is taking his medications regularly. Past medical history. As mentioned above. Past surgical history. Amputation of left finger. Bronchoscopy colonoscopy dental surgery. Tonsillectomy. Right knee joint replacement. Social history. Smoked 0.3 pack a day for 38 years. Currently no alcohol use. History of cocaine use. Currently no drugs per [facility]. Family history. Father had dementia. Mother had heart disease and hypertension. Admission Exam Per Admitting Provider General- Not in distress Head- atraumatic Eyes- PERRL. ENT- oropharynx clear Neck- supple, no JVD. Lungs- clear to auscultation no wheezing, mild bibasilar crackles Heart- regular rhythm; no murmur, no gallop. Abdomen- normal bowel sounds, soft, nontender, no distension Extremities- mild pretibial edema, no erythema seen Neuro- alert, oriented x 3; PERRL, no facial palsy; no dysarthria; moves extremities Principal Diagnosis Acute on chronic systolic and diastolic CHF Discharge Exam General- Not in distress Head- atraumatic Eyes- PERRL. ENT- oropharynx clear Neck- supple, no JVD. Lungs- clear to auscultation no wheezing, mild bibasilar crackles Heart- regular rhythm; no murmur, no gallop. Abdomen- normal bowel sounds, soft, nontender, no distension Extremities- mild pretibial edema, no erythema seen Neuro- alert, oriented x 3; PERRL, no facial palsy; no dysarthria; moves extremities Discharge Data Allergies Allergy/AdvReac Type Severity Reaction Status Date / Time No Known Allergies Allergy Verified 12/29/24 08:57 Consultations 05/23/25 01:34 ED Decision to Admit Stat 05/23/25 08:00 Consult Cardiology Routine Ordered Studies 05/23/25 03:29 CT chest diagnostic wo con Urgent Hospital Course (1) SOB (shortness of breath): 60 yo M w/ PMH of rheumatoid arthritis, Raynaud's disease, persistent atrial fibrillation on Eliquis, COPD, systolic and diastolic CHF, A-fib, CAD, PAD, SVT, GERD, hepatitis C virus s/p Rx, depression anxiety, long-term steroid, history of substance abuse presents with shortness of breath for 2-3 days a/w dry cough. Acute on chronic systolic and diastolic CHF Pt presents w/ sob and dry cough, reports compliance w/ medications. Echo on 05/14/2025 showed EF of 20 to 25%. Severe left ventricular global hypokinesis. Moderate to severe mitral regurgitation. Moderate to severe tri cuspid regurgitation. BNP up at 2600, Chest imaging w/ congestion/edema. Given neg procal, no fever and CT chest w/ findings of improving prior infection, less likely pneumonia Patient was admitted to medical floor; cardiology was consulted for comanagement. Patient's metoprolol dose was increased to 75 mg in the morning. He was diuresed with IV Lasix with improvement in shortness of breath. He was discharged on 40 mg once a day of Lasix; increased from 20 mg once a day. Patient to follow-up with PCP. Discussion was done regarding medication compliance. Patient discharged home Please note the above document was generated using voice recognition software. It may contain grammatical, syntax or spelling errors. Any formal questions or concerns about the content, text or information contained within the body of this dictation should be directly addressed to the provider for clarification Total Time Total Time Spent Total Time Spent (In Minutes): 45 Total Time Includes: Examination of the Patient, Discharge Planning, Medication Reconciliation, Communication With Other Providers and Other Discharge Plan Discharge Items Patient Disposition: Home - Self-Care Reason For Visit: SOB, CHF, PNEUMONIA Discharge Diagnosis: Acute on chronic systolic and diastolic CHF Condition on Discharge: Fair Activity: Resume your previous activity Non-emergency contact: Primary Care Provider Call non-emergency contact if: you have any medication questions, your symptoms worsen, you have a fever and your wound pain has increased Follow-up/Referrals: Anahy Grayson MD [Primary Care Provider] - (Date & Time 05/29/2025 11:40 AM Provider: Anahy Grayson MD [facility], [facility] ) Diet: Regular Addtl Attending Provider Instructions: You were admitted to the hospital due to shortness of breath. The likely cause for the shortness of breath is fluid overload from heart failure. The metal molder recommended following medication changes; 1) Increase metoprolol to 75 mg from 50 mg in the night. Continue to take 50 mg in the morning. 2) Take Lasix 40 mg once a day in the morning. Take your weight daily at home. If you notice that you have increasing lower extremity swelling, feel shortness of breath and your weight has increased by 3 to 5 pounds; take extra dose of Lasix in the afternoon. If you feel dizzy, feel your mouth is dry; increased water intake and hold Lasix. Please follow-up with your primary care doctor and cardiology as scheduled Pending Studies at Discharge: No Stand-Alone Forms: My [facility] [employer], Smoking Cessation Medications and DC Order Prescriptions: New metoprolol succinate 50 mg Tablet Extended Release 24 Hr 50 mg PO QPM Qty: 90 0RF metoprolol succinate 50 mg tablet extended release 24 hr 75 mg PO QAM Qty: 60 0RF furosemide 40 mg Tablet 40 mg PO QAM Qty: 60 0RF Continued nitroglycerin 0.4 mg tablet, sublingual 0.4 mg sublingual UD PRN (Reason: Chest Pain) Rx Instructions: NEEDED FOR CHEST PAIN : ONE TABLET UNDER THE TONGUE EVERY 5 MINUTES UP TO THREE DOSES. Eliquis 5 mg tablet 5 mg PO [facility] Rx Instructions: 2 tabs yesTwice Daily for 13 doses and then 1 tab Twice daily as before digoxin 125 mcg (0.125 mg) tablet 0.125 mcg PO QAM Qty: 30 0RF sacubitril-valsartan [Entresto] 24-26 mg tablet 0.5 tab PO [facility]HS Qty: 0 0RF omeprazole 40 mg capsule,delayed release(DR/EC) 40 mg PO DAILYBB Qty: 30 0RF spironolactone 25 mg tablet 12.5 mg PO QAM Qty: 15 0RF cholecalciferol (vitamin D3) [Vitamin D3] 10 mcg (400 unit) Capsule 10 mcg PO QAM Qty: 30 0RF duloxetine 30 mg capsule,delayed release(DR/EC) 30 mg PO QAM Qty: 30 0RF Jardiance 25 mg tablet 25 mg PO QAM Trelegy Ellipta 100-62.5-25 mcg blister with device 1 ea INHALATION QAM magnesium oxide 400 mg (241.3 mg magnesium) tablet 400 mg PO QAM aspirin 81 mg Tablet 81 mg PO QAM atorvastatin 10 mg tablet 10 mg PO QAM divalproex 250 mg tablet extended release 24 hr 250 mg PO QAM oxycodone-acetaminophen 10-325 mg tablet 1 tab PO BID PRN (Reason: Pain,severe) Qty: 15 0RF prednisone 5 mg tablet 7.5 mg PO QAM sulfasalazine 500 mg tablet 1,000 mg PO BID Qty: 120 0RF Discontinued metoprolol succinate 50 mg tablet extended release 24 hr 50 mg PO Q12 furosemide 20 mg Tablet 20 mg PO QAM Discharge Orders: Discharge Order (Routine); Ordered 05/27/25 Ordered By: Ned Dueñas Admission Data Admit Date/Time: 05/23/25 03:29 Attending Provider: Ned Dueñas Admit Provider: Kalia Watson Primary Care Provider: Anahy Grayson Other Providers: Kalia Watson; Elizabeth Mccann; Jamie Valente; Michael Allen; Guillermo Luque; Randall Craig; Fredy De Guzman; Reina Hebert; Valentina Ceron; Aparna Espinal; Dayami Torres; Elizabeth Johnson; Milad Amor; Jamie Mclean; Floresita Bright; Kelli Win; Alma Serrato; Alex Amaya; Tony Carty; Ra lewis Allen; Callie Laird; Raman Hernández; Yoko Barnes; [facility] Other Interventions: Discharge Summary Assessment (RN) Last Done: 05/27/25 10:54
[2025-05-27 09:27] LABS: Anion Gap 9.0 (3-11); Blood Urea Nitrogen 39.0 mg/dl (6-23); Calcium 9.9 mg/dl (8.6-10.3); Carbon Dioxide 26.0 mmol/L (21-32); Chloride 100.0 mmol/L (98-107); Creatinine Clr Calc Pharmacy 80.8 ml/min; Glucose 135.0 mg/dl (70-99(Fasting)); Potassium 4.1 mmol/L (3.5-5.1); Sodium 135.0 mmol/L (136-145)
[2025-05-27 10:54] VITALS: PULSE 84
--- NOTE | 2025-05-27 11:19 | Cardiology Progress Note ---
Date of Service May 27, 2025 Assessment & Plan (1) Persistent atrial fibrillation: (2) Atrial fibrillation with rapid ventricular response: (3) Severe left ventricular systolic dysfunction (LVSD): (4) Heart failure with reduced ejection fraction: Plan Acute decompensated systolic congestive heart failure. Suspected tachycardia induced. NYHA Class III+ LVEF 20%. Narrow QRS duration, persistently in atrial fibrillation. Volume status: Compensated. Patient transitioned to oral furosemide in AM of 05/26/2025. Atrial fibrillation Left atrial severely dilated on resting echocardiography Rates acceptably controlled on metoprolol succinate (75 mg AM, 50 mg PM) and digoxin 125 mcg/day Continue apixaban anticoagulation at 5 mg twice a day. If significant hypotension occurs with titration of metoprolol may need to change Entresto to Losartan Nonobstructive CAD As per cardiac catheterization 04/20/[address] [facility] - patent coronary anatomy, RCA with a nonobstructive ulcerated plaque in its mid segment Continue medical management. Please contact with any cardiac questions or concerns. Outpatient Cardiology follow-up scheduled at [facility] on June 05, 2025 at 12:00 PM with Elizabeth NGUYEN Admission and Anticipated Discharge Date Admission Date: May 23, 2025 Supervising Physician Co-Signing Physician Notes I have personally performed a history and physical examination on the patient. I have reviewed the advance practitioner's documentation, and I agree with, and take responsibility for the plan of care. 60-year-old male with persistent atrial fibrillation with rapid ventricular response, severe left ventricular dysfunction and heart failure with reduced ejection fraction. Heart rate improved with titration of metoprolol and addition of digoxin. Continue spironolactone, Lasix 40 mg daily, apixaban, and Entresto as ordered. Reviewed importance of compliance with medical therapies. Cardiology will sign off. Please call with additional concerns/questions. Guillermo Luque DO, [facility] Subjective Patient seen and examined. Chart, medications, telemetry reviewed. No complaints. Denies chest pain, palpitations, shortness of breath, fluid retention. Review of Systems Review of Systems: Complete review of systems is as stated above, negative, or noncontributory. Physical Exam Physical Exam: General: NAD. HENT: Normocephalic. Atraumatic. Eyes: PER. Conjunctiva pink, sclera clear. Neck: No JVD. No HJR. Heart: Irregularly irregular 90 bpm. No murmur. Lungs: Clear to auscultation. No wheeze. Abdomen: +BS. Soft. No organomegaly. Extremities: No edema. Limited neurological examination is without focal deficits. Pulses: Posterior tibial=1/4. Results & Data Vital Signs (Past 12 Hours) Vital Signs Temp Pulse Pulse Pulse Resp BP BP 05/27/25 10:54 36.8 C 84 86 18 105/75 131/76 05/27/25 10:52 36.8 C 84 86 18 105/75 131/76 05/27/25 09:22 91 H 05/27/25 07:48 36.8 C 86 18 131/76 05/27/25 04:16 36.7 C 84 16 105/75 05/26/25 23:29 36.6 C 66 16 113/73 Pulse Ox O2 Del Method 05/27/25 10:54 95 05/27/25 10:52 95 05/27/25 09:22 05/27/25 07:48 95 Room Air 05/27/25 04:16 93 Room Air, Non-rebreather 05/26/25 23:29 94 Room Air Laboratory Results CBC 05/27/25 Range/Units 08:51 WBC 9.07 (4.8-10.8) K/ul RBC 6.59 H (4.70-6.10) M/uL Hgb 15.7 (14.0-18.0) g/dL Hct 48.7 (42.0-52.0) % Plt Count 371 (130-400) K/uL Comprehensive Metabolic Panel 05/27/25 Range/Units 08:51 Sodium 135 L (136-145) mmol/L Potassium 4.1 (3.5-5.1) mmol/L Chloride 100 (98-107) mmol/L Carbon Dioxide 26 (21-32) mmol/L BUN 39 H (6-23) mg/dl Creatinine 0.96 (0.6-1.4) mg/dl Glucose 135 H (70-99(Fasting)) mg/dl Calcium 9.9 (8.6-10.3) mg/dl Intake and Output 05/26/25 05/27/25 05/27/25 22:59 06:59 14:59 Output Total 850 / 1750 600 / 1750 200 / 200 Balance -850 / -1270 -600 / -1270 -200 / -200 Output: Urine 850 / 1750 600 / 1750 200 / 200 Other: Weight 82.4 kg 82.4 kg Weight Measurement Method Standing Scale Patient Weight 05/28/25 06:59 Weight 82.4 kg Diagnostic Findings Telemetry: Atrial fibrillation, rates ranging from 70's to 1'teens, averaging in the low 90's. PG Care Time/CCT Total # of Minutes Spent Total Time Spent with Patient: Total time spent is greater than 50% in coordination of care (as documented) at patient's floor/unit and/or counseling patient: Coding Level of Care Code 73550 SUB INP/OBS CARE 06/21MIN Diagnoses Persistent atrial fibrillation I48.19 Atrial fibrillation with rapid ventricular response I48.91 Severe left ventricular systolic dysfunction (LVSD) I51.89 Heart failure with reduced ejection fraction I50.20
== END 2025-05-27 15:05 | disposition hospice, home (50) | DRG 291 ==
LOC: ED 00:10 → SUATTDRO 03:29 → EDINP 03:29 → 2S 06:35